=== PATIENT | female | born 1940 | race Caucasian/White ===

== ENCOUNTER 2019-08-06 11:19 | Inpatient (IN) | payer MEDICARE, OTHER ==
[2019-08-06] VITALS (12 sets, daily range): BP systolic 112–140; BP diastolic 52–70
[~2019-08-06] VITALS: Ht 152.4 cm; Wt 58.7 kg
[2019-08-06] MEDS ORDERED: LISI10TA4 PO (11:37)
[2019-08-06] MEDS ORDERED: AMLO10TA5 PO (11:37)
[2019-08-06] MEDS ORDERED: GLIM1TAB4 PO (11:37)
[2019-08-06] MEDS ORDERED: SUCR1TAB56 PO (11:37)
[2019-08-06] MEDS ORDERED: METF500T13 PO (11:37)
[2019-08-06] MEDS ORDERED: ATOR1TAB21 PO (11:37)
[2019-08-06 12:01] LABS: BASO % 0.4 % (0.0-1.0); EOS % 0.4 % (0.0-3.0); LYMPH # 0.9 10^3/uL (1.5-5.0); LYMPH % 12.5 % (24.0-44.0); MEAN CORPUSCULAR HEMOGLOBIN 26.1 pg (27.0-33.0); MEAN CORPUSCULAR HGB CONC 30.5 g/dl (32.0-36.5); MEAN CORPUSCULAR VOLUME 85.6 fl (80.0-96.0); MONO # 0.8 10^3/uL (0.0-0.8); NEUTROPHILS # 5.7 10^3/uL (1.5-8.5); NEUTROPHILS % 76.4 % (36.0-66.0); PLATELET COUNT, AUTOMATED 397 10^3/uL (150-450); WHITE BLOOD COUNT 7.5 10^3/uL (4.0-10.0)
[2019-08-06 12:04] LABS: HEMOGLOBIN 4.7 g/dl (12.0-15.5)
[2019-08-06 12:05] LABS: HEMATOCRIT 15.4 % (36.0-47.0)
[2019-08-06 12:22] LABS: BLOOD UREA NITROGEN 18 MG/DL (7-18); CALCIUM LEVEL 8.5 MG/DL (8.8-10.2); CARBON DIOXIDE LEVEL 21 MEQ/L (21-32); CHLORIDE LEVEL 111 MEQ/L (98-107); CREATININE FOR GFR 0.84 MG/DL (0.55-1.30); GLOMERULAR FILTRATION RATE > 60.0 (>39); GLUCOSE, FASTING 144 MG/DL (70-100); POTASSIUM SERUM 3.8 MEQ/L (3.5-5.1); SODIUM LEVEL 142 MEQ/L (136-145)
[2019-08-06] MEDS ORDERED: PANTOPRAZOLE 40MG INJ (PROTONIX) (C9113) IV ONE (12:30)
[2019-08-06] MEDS ORDERED: ZADI1DRO OU (12:43)
[2019-08-06 13:41] LABS: FERRITIN 4 NG/ML (8-252); IRON (FE) 8 UG/DL (50-170); PERCENT SATURATION 1.7 % (13.2-45.0); TOTAL IRON BINDING CAPACITY 480 UG/DL (250-450)
[2019-08-06] MEDS: metFORMIN (GLUCOPHAGE) 500 MG TAB PO SCH ×2 (18:00→20:29)
--- NOTE | 2019-08-06 18:29 | CR.PDOC ---
General Date of Consultation: Aug 06, 2019 Referring Provider: JULIETTE LINARES MD Attending Physician: RADHA PERALTA MD Consultation Primary physician/ hospitalist: -Dr. Juliette Linares Reason for consult: -Acute posthemorrhagic anemia HPI: 78-year-old female patient with HTN, DM type II, arthritis, prior spinal fusion with chronic back pain, was admitted to [facility] for acute blood loss anemia. Patient reports having dark stools at night, for the past 5 days, initially multiple loose stools, dark colored, started on Saturday, was seen in her PCP clinic, had blood tests on Saturday and was told to come to ER by her PCP. Patient reports feeling fatigued and generalized weakness since the symptoms started. Patient's daughter reports that she is losing weight progressively over the past year and patient also agrees. Patient denies any other GI symptoms, no recent NSAID use, no prior similar symptoms. Patient does report having occult-positive stools when she did the screening for her colon cancer. Patient also reports generally, she has regular bowel movements and denies any constipation. Pertinent negative GI symptoms: Patient denies fever, sick contacts, recent travel, nausea, vomiting, abdominal pain, loss of appetite, early satiety or unintentional weight loss. No history of hematemesis. Review of Systems: GI: as stated above CVS: No chest pain, No palpitations, No leg swelling. RS: No Shortness of breath, No Wheezing, no cough HISTORY CARD CLERK: No dizziness, No motor weakness, No sensory problems Hematology: No bruising, No gum bleeding, Musculoskeletal: No joint pain, ambulating well. Skin: No rash : No hematuria, No burning sensation of the urine ENT: No ear discharge/ pain, No dysphagia. Eyes: No photophobia. Jaundice Home medications: reviewed. Antithrombotic agents: -On aspirin 81 mg Medical h/o: As above. Surgical h/o: None on abdomen. Social h/o: Alcohol: -Denies, smoking: Denies, IVDA/ drugs: Denies. Family h/o of GI cancers - None Prior Endoscopies: No prior EGD or colonoscopy. Prior GI evaluations: -None in past Exam: Vitals: reviewed General: Alert and oriented x 3, mild distress from back pain and unable to rest comfortably on her back. HEENT: Conjunctival pallor, no icterus. Normal oropharynx, NO cervical lymph nodes. Chest: symmetric with bilateral clear air entry, CVS: S1, S2 heard, normal, no murmurs . Abdomen: non-distended, no surgical scars, soft, non-tender, no palpable masses, normal bowel sounds heard. Rectal exam: Patient refused / Deferred at this time in view of scheduled colonoscopy. Extremities: no pedal edema, pulses palpable. HISTORY CARD CLERK: no focal motor or sensory deficits. Moves all extremities Skin: no rash. Labs: reviewed. Imaging: reviewed. Impression: -- Acute onset dark stools few days ago with less number of bowel movements for the past 2 days, with symptomatic anemia and prior FOBT positive and unintentional weight loss -- DDx-- need to rule out colon polyps/colon cancer, vs AVM bleeding, vs diverticular bleeding vs less likely PUD vs upper GI bleeding Recommendations: - Patient educated about the test results, possible differential diagnoses and All questions answered. - Monitor hemoglobin and hematocrit closely and transfuse to maintain hemoglobin above 8. - Continue pantoprazole 40 MG IV twice daily for now - Clear liquid diet until 7 AM tomorrow. - Patient is recommended both EGD and colonoscopy after bowel preparation. The p rocedures, indications, risks (bleeding, perforation, infection, hypotension, respiratory depression, allergy, need for endotracheal intubation, surgery, colostomy, cardiac arrest, even ), benefits, limitations (e.g., missing a lesion), and all other alternatives (including no intervention) were explained to the patient who understood and agreed for the procedures. Informed consent signed. - Bowel preparation with GoLYTELY 4 L to be completed by 7 AM tomorrow. - Nothing by mouth after 7 AM tomorrow, Plan of care discussed with patient and primary team. Patient verbalized understanding and agreed with the plan. Vital Signs/I&O Vital Signs Date Time Temp Pulse Resp B/P (MAP) Pulse Ox O2 Delivery O2 Flow Rate FiO2 08/06/19 15:34 98.7 92 20 135/66 (89) 100 Room Air Laboratory Data Labs 24H Laboratory Tests 2 08/06/19 11:44: Immature Granulocyte % (Auto) 0.3, Neutrophils (%) (Auto) 76.4H, Lymphocytes (%) (Auto) 12.5L, Monocytes (%) (Auto) 10.0H, Eosinophils (%) (Auto) 0.4, Basophils (%) (Auto) 0.4, Neutrophils # (Auto) 5.7, Lymphocytes # (Auto) 0.9L, Monocytes # (Auto) 0.8, Eosinophils # (Auto) 0.0, Basophils # (Auto) 0.0, Nucleated Red Blood Cells % (auto) 0.0, Anion Gap 10, Glomerular Filtration Rate > 60.0, Calcium Level 8.5L, Iron Level 8L, Total Iron Binding Capacity 480H, Transferrin % Saturation 1.7L, Ferritin 4L CBC/BMP Laboratory Tests 08/06/19 11:44 Allergies Coded Allergies: No Known Allergies (Unverified , 08/06/19) Home Medications Scheduled Amlodipine Besylate (Amlodipine Besylate) 10 Mg Tablet, 10 MG PO DAILY, (Reported) Atorvastatin Calcium (Atorvastatin Calcium) 20 Mg Tablet, 20 MG PO QHS, (Reported) Glimepiride (Glimepiride) 1 Mg Tablet, 0.5 MG PO DAILY, (Reported) Ketotifen Fumarate (Zaditor) 5 Ml Drops, 1 DROP OU BID, (Reported) Lisinopril (Lisinopril) 10 Mg Tablet, 10 MG PO BID, (Reported) Metformin HCl (Metformin HCl) 500 Mg Tablet, 500 MG PO QPM, (Reported) Sucralfate (Sucralfate) 1 Gm Tablet, 1 GRAM PO ACHS, (Reported) RADHA PERALTA MD Aug 06, 2019 18:29
[2019-08-06] MEDS ORDERED: GOLYTELY SOLN 4000 ML BTL PO ONE (18:30)
[2019-08-06] MEDS ORDERED: GLUCAGON FOR INJ 1 MG VIAL (J1610) SC PRN (19:00)
[2019-08-06] MEDS ORDERED: FUROSEMIDE 40 MG/4 ML VIAL (J1940) IV ONE (19:00)
[2019-08-06] MEDS ORDERED: PILL CUTTER 1 EACH XX PRN (19:00)
[2019-08-06] MEDS ORDERED: GLUCOSE 4 GM CHEW TABLET PO PRN (19:00)
[2019-08-06] MEDS ORDERED: DEXTROSE 50% 50 ML SYRINGE IV PRN (19:00)
--- NOTE | 2019-08-06 20:48 | HPEPDOC ---
General Date of Admission Aug 06, 2019 at 13:51 Date of Service: Aug 06, 2019 Chief Complaint The patient is a 78-year-old female admitted with a reason for visit of Acute Blood Loss Anemia. Source: Patient, Family Exam Limitations: No limitations Timing/Duration: Day(s) Severity: Moderate Associated Symptoms: Denies Symptoms History of Present Illness This is a 78-year-old female who presented to the emergency room after an episode of gas and diarrhea with dark blood. She had been told by her primary care provider that she would need endoscopic evaluation. The patient was not ent husiastic about this. Of interest, the patient had undergone occult blood screening last summer that was positive. She had deferred further evaluation at that time as well. The patient did have her blood drawn by her primary care provider; she was found to have a hemoglobin of 4.7. She was then notified and encouraged to come to the emergency room. The patient really did not have any complaints. She had not experienced any nausea or vomiting. She had not had episodes of blood associated with her stools in the past. She otherwise has no significant changes to her bowel or bladder habits and did not have abdominal pain. She does not have other risk factors such as excessive NSAID use and is not on any anticoagulation therapy. Home Medications Scheduled Amlodipine Besylate (Amlodipine Besylate) 10 Mg Tablet, 10 MG PO DAILY, (Reported) Atorvastatin Calcium (Atorvastatin Calcium) 20 Mg Tablet, 20 MG PO QHS, (Reported) Glimepiride (Glimepiride) 1 Mg Tablet, 0.5 MG PO DAILY, (Reported) Ketotifen Fumarate (Zaditor) 5 Ml Drops, 1 DROP OU BID, (Reported) Lisinopril (Lisinopril) 10 Mg Tablet, 10 MG PO BID, (Reported) Metformin HCl (Metformin HCl) 500 Mg Tablet, 500 MG PO QPM, (Reported) Sucralfate (Sucralfate) 1 Gm Tablet, 1 GRAM PO ACHS, (Reported) Allergies Coded Allergies: No Known Allergies (Unverified , 08/06/19) Past Medical History Medical History Past medical history is remarkable for essential hypertension, dyslipidemia, and fcf-hzwnsyv-ewhwibrtt diabetes mellitus. Surgical History Surgical history includes tubal ligation, appendectomy, cataract surgery, excision of a lipoma or sebaceous cyst from her right shoulder. Family History Significant Family History: Cancer, Diabetes, Heart disease, Renal disease Other family history includes leukemia and stroke. 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 A-FIB/CHADSVASC A-FIB History Current/History of A-Fib/PAF?: No Current PO Anticoag Therapy: No Review of Systems Other systems 10 system review is otherwise negative except as stated in the HPI. Physical Examination General Exam: Positive: Alert, Cooperative Eye Exam: Positive: Conjunctiva & lids normal ENT Exam: Positive: Mucous membr. moist/pink Neck Exam: Positive: Supple Chest Exam: Positive: Clear to auscultation, Normal air movement Heart Exam: Positive: Rate Normal, Normal S1, Normal S2 Abdomen Exam: Positive: Normal bowel sounds, Tenderness (patient does demonstrate epigastric tenderness to palpation); Negative: BS Hyperactive, BS Hypoactive, Soft, Hepatospenomegaly, Mass, Hernia, Other Extremity Exam: Positive: Normal pulses; Negative: Clubbing, Cyanosis, Edema, Tenderness, Swelling, Other Skin Exam: Positive: Nl turgor and temperature, Other skin issue (no remarkable pallor) Neuro Exam: Positive: Normal Gait, Normal Speech, Strength at 5/5 X4 ext, Ping l Tone, Sensation Intact, Cranial Nerves 3-12 NL, Reflexes 2+, Other Psych Exam: Positive: Mental status NL, Mood NL, Oriented x 3 Vital Signs Vital Signs Date Time Temp Pulse Resp B/P (MAP) Pulse Ox O2 Delivery O2 Flow Rate FiO2 08/06/19 20:11 99.2 97 16 140/58 Room Air 08/06/19 19:56 97 Laboratory Data Labs 24H Laboratory Tests 2 08/06/19 11:44: Immature Granulocyte % (Auto) 0.3, Neutrophils (%) (Auto) 76.4H, Lymphocytes (%) (Auto) 12.5L, Monocytes (%) (Auto) 10.0H, Eosinophils (%) (Auto) 0.4, Basophils (%) (Auto) 0.4, Neutrophils # (Auto) 5.7, Lymphocytes # (Auto) 0.9L, Monocytes # (Auto) 0.8, Eosinophils # (Auto) 0.0, Basophils # (Auto) 0.0, Nucleated Red Blood Cells % (auto) 0.0, Anion Gap 10, Glomerular Filtration Rate > 60.0, Calcium Level 8.5L, Iron Level 8L, Total Iron Binding Capacity 480H, Transferrin % Saturation 1.7L, Ferritin 4L CBC/BMP Laboratory Tests 08/06/19 11:44 Assessment/Plan 1. Acute blood loss anemia. Source of blood loss is likely GI tract, given her positive guaiac studies last summer and current dark stools. We have not seen any morales blood. In response to her hemoglobin of 4.7. Patient is to receive estimated 3-4 units of packed red blood cells. She has been placed on proton pump inhibitor in the form of Protonix. GI service has been contacted; we anticipate she will undergo subsequent evaluation by upper and lower endoscopy. The patient is agreeable to this plan and sequence of events. 2. Coe-jychtxz-snzyffhhc diabetes mellitus. Patient will continue with her current diabetes management regimen with sliding scale insulin available as needed. 3. She will continue her baseline medication management of her essential hypertension, dyslipidemia. Plan / VTE VTE Prophylaxis Ordered?: Yes (serial compression devices) VTE Exclusion Pharmacological: Active Bleeding Plan Diet: Make NPO (in the morning) Activity: Continue Current Medications: Start Antibiotics Diagnostics: Repeat Labs in AM, Other Diagnostics (upper and lower endoscopy) Anticipated Discharge: Home NIDIA POLLARD MD Aug 06, 2019 20:48
[2019-08-06] MEDS ORDERED: HumaLOG INSULIN (NovoLOG) PER UNIT SC SCH (21:00)
[2019-08-06] MEDS ORDERED: ATORVASTATIN 20 MG TAB PO SCH (21:00)
[2019-08-06] MEDS: lisinopriL 10 MG TAB PO SCH (21:01)
[2019-08-06] MEDS: PANTOPRAZOLE 40MG INJ (PROTONIX) (C9113) IV SCH (22:35)
[2019-08-07] VITALS (12 sets, daily range): BP systolic 116–146; BP diastolic 57–89
[2019-08-07 06:06] LABS: HEMATOCRIT 29.7 % (36.0-47.0); MEAN CORPUSCULAR HGB CONC 32.7 g/dl (32.0-36.5); MEAN CORPUSCULAR VOLUME 85.6 fl (80.0-96.0); PLATELET COUNT, AUTOMATED 309 10^3/uL (150-450); RED BLOOD COUNT 3.47 10^6/uL (4.00-5.40); WHITE BLOOD COUNT 7.3 10^3/uL (4.0-10.0)
[2019-08-07 06:10] LABS: HEMOGLOBIN 9.7 g/dl (12.0-15.5)
[2019-08-07 06:33] LABS: BLOOD UREA NITROGEN 9 MG/DL (7-18); CALCIUM LEVEL 7.7 MG/DL (8.8-10.2); CARBON DIOXIDE LEVEL 24 MEQ/L (21-32); CHLORIDE LEVEL 113 MEQ/L (98-107); CREATININE FOR GFR 0.64 MG/DL (0.55-1.30); GLOMERULAR FILTRATION RATE > 60.0 (>39); GLUCOSE, FASTING 119 MG/DL (70-100); POTASSIUM SERUM 3.2 MEQ/L (3.5-5.1); SODIUM LEVEL 142 MEQ/L (136-145)
[2019-08-07] MEDS: HumaLOG INSULIN (NovoLOG) PER UNIT SC SCH ×3 (07:30→17:30)
[2019-08-07] MEDS ORDERED: GLIMEPIRIDE 1 MG TABLET PO SCH (08:00)
[2019-08-07] MEDS: PANTOPRAZOLE 40MG INJ (PROTONIX) (C9113) IV SCH (08:20)
[2019-08-07] MEDS: lisinopriL 10 MG TAB PO SCH (08:23)
[2019-08-07] MEDS ORDERED: amLODIPine 10 MG TAB PO SCH (09:00)
[2019-08-07] MEDS ORDERED: LIDOCAINE 2% INJ 100 MG/5 ML SDV (FOR ANES.) As Ordered ONE (14:04)
[2019-08-07] MEDS ORDERED: propofoL 200 MG/20 ML VIAL As Ordered ONE (14:04)
[2019-08-07] MEDS ORDERED: fentaNYL 100 MCG/2 ML INJECTION (J3010) As Ordered ONE (14:05)
--- NOTE | 2019-08-07 15:11 | ROOR ---
Patient Name: Meron Rico Procedure Date: 08/07/2019 2:10 PM Date of : 1940 Age: 78 Room: [facility] Gender: Female Note Status: Finalized Procedure: Upper GI endoscopy Indications: Acute post hemorrhagic anemia Providers: Jeff Cramer MD Referring MD: 2. Inpatient 2. Inpatient, FABIAN Serrato Requesting Provider: Medicines: Monitored Anesthesia Care Complications: No immediate complications. Procedure: Pre-Anesthesia Assessment: - Prior to the procedure, a History and Physical was performed, and patient medications and allergies were reviewed. The patient is competent. The risks and benefits of the procedure and the sedation options and risks were discussed with the patient. All questions were answered and informed consent was obtained. Patient identification and proposed procedure were verified by the physician, the nurse and the anesthesiologist in the procedure room. Mental Status Examination: normal. Airway Examination: normal oropharyngeal airway and neck mobility. Respiratory Examination: clear to auscultation. CV Examination: normal. Prophylactic Antibiotics: The patient does not require prophylactic antibiotics. Prior Anticoagulants: The patient has taken no previous anticoagulant or antiplatelet agents. ASA Grade Assessment: III - A patient with severe systemic disease. After reviewing the risks and benefits, the patient was deemed in satisfactory condition to undergo the procedure. The anesthesia plan was to use monitored anesthesia care (MAC). Immediately prior to administration of medications, the patient was re-assessed for adequacy to receive sedatives. The heart rate, respiratory rate, oxygen saturations, blood pressure, adequacy of pulmonary ventilation, and response to care were monitored throughout the procedure. The physical status of the patient was re-assessed after the procedure. The Endoscope was introduced through the mouth, and advanced to the second part of duodenum. The upper GI endoscopy was accomplished without difficulty. The patient tolerated the procedure well. Findings: One tongue of salmon-colored mucosa was present from 35 to 37 cm. The maximum longitudinal extent of these esophageal mucosal changes was 2 cm in length. Biopsies were taken with a cold forceps for histology. Verification of patient identification for the specimen was done by the physician and nurse using the patient's date. Scattered moderate inflammation characterized by erythema, friability, granularity and linear erosions was found in the gastric antrum. Biopsies were taken with a cold forceps for Helicobacter pylori testing. The duodenal bulb and second portion of the duodenum were normal. Impression: - Commerce-colored mucosa suspicious for short-segment Newell's esophagus. Biopsied. - Gastritis. Biopsied. - Normal duodenal bulb and second portion of the duodenum. Recommendation: - Patient has a contact number available for emergencies. The signs and symptoms of potential delayed complications were discussed with the patient. Return to normal activities tomorrow. Written discharge instructions were provided to the patient. - High fiber diet. - Continue present medications. - Await pathology results. - If Biopsy shows H. pylori will need therapy with antibiotic course.. - Telephone GI clinic for pathology results in 1 week. - Refer to a colo-rectal surgeon and oncologist at appointment to be scheduled based on the Colonoscopy biopsy results.. - Return to primary care physician. Jeff Cramer MD Jeff Cramer MD 08/07/2019 3:11:13 PM Electronically signed by Jeff Cramer MD Number of Addenda: 0 Note Initiated On: 08/07/2019 2:10 PM Estimated Blood Loss: Estimated blood loss was minimal.
--- NOTE | 2019-08-07 15:19 | ROOR ---
Patient Name: Meron Rico Procedure Date: 08/07/2019 2:12 PM Date of : 1940 Age: 78 Room: [facility] Gender: Female Note Status: Finalized Procedure: Colonoscopy Indications: Hematochezia, Acute post hemorrhagic anemia Providers: Jeff Cramer MD Referring MD: 2. Inpatient 2. Inpatient, FABIAN Serrato Requesting Provider: Medicines: Monitored Anesthesia Care Complications: No immediate complications. Procedure: Pre-Anesthesia Assessment: - Prior to the procedure, a History and Physical was performed, and patient medications and allergies were reviewed. The patient is competent. The risks and benefits of the procedure and the sedation options and risks were discussed with the patient. All questions were answered and informed consent was obtained. Patient identification and proposed procedure were verified by the physician, the nurse and the anesthesiologist in the procedure room. Mental Status Examination: alert and oriented. Airway Examination: normal oropharyngeal airway and neck mobility. Respiratory Examination: clear to auscultation. CV Examination: normal. Prophylactic Antibiotics: The patient does not require prophylactic antibiotics. Prior Anticoagulants: The patient has taken no previous anticoagulant or antiplatelet agents. ASA Grade Assessment: II - A patient with mild systemic disease. After reviewing the risks and benefits, the patient was deemed in satisfactory condition to undergo the procedure. The anesthesia plan was to use monitored anesthesia care (MAC). Immediately prior to administration of medications, the patient was re-assessed for adequacy to receive sedatives. The heart rate, respiratory rate, oxygen saturations, blood pressure, adequacy of pulmonary ventilation, and response to care were monitored throughout the procedure. The physical status of the patient was re-assessed after the procedure. The Colonoscope was introduced through the anus and advanced to the terminal ileum, with identification of the appendiceal orifice and IC valve. The colonoscopy was performed without difficulty. The patient tolerated the procedure well. The quality of the bowel preparation was good. The terminal ileum, ileocecal valve, appendiceal orifice, and rectum were photographed. Scope insertion time was 5 minutes. Scope withdrawal time was 10 minutes. The total duration of the procedure was 15 minutes. Findings: The perianal and digital rectal examinations were normal. The terminal ileum appeared normal. A frond-like/villous, infiltrative and ulcerated non-obstructing large mass was found in the ascending colon and in the cecum. The mass was partially circumferential (involving one-half of the lumen circumference). The mass measured eight cm in length. In addition, its diameter measured five mm. Biopsies were taken with a cold forceps for histology. Verification of patient identification for the specimen was done by the physician and nurse using the patient's name, date and medical record number. Estimated blood loss was minimal. A fungating, infiltrative and ulcerated partially obstructing large mass was found in the rectum and from 5 to 15 cm proximal to the anus. The mass was partially circumferential (involving two-thirds of the lumen circumference). The mass measured ten cm in length. In addition, its diameter measured five mm. Oozing was present. Biopsies were taken with a cold forceps for histology. Multiple small and large-mouthed diverticula were found from sigmoid to descending colon. There was no evidence of diverticular bleeding. Impression: - The examined portion of the ileum was normal. 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 Biopsied. - Likely malignant partially obstructing tumor in the rectum and from 5 to 15 cm proximal to the anus. Biopsied. - Moderate diverticulosis from sigmoid to descending colon. There was no evidence of diverticular bleeding. Recommendation: - Patient has a contact number available for emergencies. The signs and symptoms of potential delayed complications were discussed with the patient. Return to normal activities tomorrow. Written discharge instructions were provided to the patient. - Resume previous diet. - Continue present medications. - Await pathology results. - Refer to a colo-rectal surgeon at appointment to be scheduled. - Refer to an oncologist at appointment to be scheduled. - Return to primary care physician. - Telephone GI clinic for pathology results in 1 week. - Repeat colonoscopy in 1 year per protocol and for surveillance based on pathology results. Jeff Cramer MD Jeff Cramer MD 08/07/2019 3:18:26 PM Electronically signed by Jeff Cramer MD Number of Addenda: 0 Note Initiated On: 08/07/2019 2:12 PM Estimated Blood Loss: Estimated blood loss was minimal.
[2019-08-07] MEDS: metFORMIN (GLUCOPHAGE) 500 MG TAB PO SCH (18:00)
--- NOTE | 2019-08-07 18:01 | DS.PDOC ---
Discharge Summary General Date of Admission Aug 06, 2019 at 13:51 Date of Discharge August 07, 2019 Specialist/Consultants Involve: RADHA PERALTA MD Discharge Summary PROCEDURES PERFORMED DURING STAY: [EGD, colonoscopy, blood transfusion]. ADMITTING DIAGNOSES: 1. [Acute blood loss anemia]. DISCHARGE DIAGNOSES: 1. [Acute blood loss anemia, Barretts esophagus, multiple colonic tumour lesions, diverticular disease, essential hypertension, dyslipidemia, NIDDM]. COMPLICATIONS/CHIEF COMPLAINT: Acute Blood Loss Anemia. HISTORY OF PRESENT ILLNESS/HOSPITAL COURSE: [78-year-old female presented to the emergency room after an episode of gas and diarrhea with dark blood. She had been told by her primary care provider that she would need endoscopic evaluation. The patient was not enthusiastic about this. Of interest, the patient had undergone occult blood screening last summer that was positive. She had deferred further evaluation at that time as well. The patient did have her blood drawn by her primary care provider; she was found to have a hemoglobin of 4.7. She was then notified and encouraged to come to the emergency room. The patient really did not have any complaints. She had not experienced any nausea or vomiting. She had not had episodes of blood associated with her stools in the past. She otherwise has no significant changes to her bowel or bladder habits and did not have abdominal pain. She does not have other risk factors such as excessive NSAID use and is not on any anticoagulation therapy. Patient received transfusion of 4 units of PRBCs. Patient underwent endoscopic eval by GI services. Newell"s esophagus was noted on EGD. Multiple tumours were found on colonoscopy--ascending colon, cecum, and rectum. Results were shared with the patient and her family. ]. DISCHARGE MEDICATIONS: Please see below. ALLERGIES: Please see below. PHYSICAL EXAMINATION ON DISCHARGE: VITAL SIGNS: Please see below. GENERAL: [patient was seen pre and post procedure] HEENT: [neck supple with no adenopathy or thyromegaly, oral mucosa moist] CARDIOVASCULAR EXAMINATION: [RRR, no murmur] RESPIRATORY EXAMINATION: [CTA] ABDOMINAL EXAMINATION: [soft, non tender, nondistended] EXTREMITIES: [no peripheral edema] LABORATORY DATA: Please see below. IMAGING: PROGNOSIS: ACTIVITY: [As tolerated]. DIET: [as tolerated] DISCHARGE PLAN: [Patient was hemodynamically stable for discharge to home. She will follow up with GI service for pathology results and subsequent referral to colorectal surgeon and oncology service. Patient might opt for no treatment at all.] DISPOSITION: . DISCHARGE INSTRUCTIONS: 1. . ITEMS TO FOLLOWUP ON ON OUTPATIENT: 1. . DISCHARGE CONDITION: [Stable]. TIME SPENT ON DISCHARGE: [35] minutes. Vital Signs/I&Os Vital Signs Date Time Temp Pulse Resp B/P (MAP) Pulse Ox O2 Delivery O2 Flow Rate FiO2 08/07/19 15:35 98.8 99 18 142/70 (94) 99 Room Air I&O- Last 24 Hours up to 6 AM 08/07/19 05:59 Intake Total 3591 ml Output Total 180 ml Balance 3411 ml Laboratory Data Labs 24H Laboratory Tests 2 08/06/19 19:42: Bedside Glucose (Misc Panel) 156H 08/07/19 05:09: Nucleated Red Blood Cells % (auto) 0.0, Anion Gap 5L, Glomerular Filtration Rate > 60.0, Calcium Level 7.7L 08/07/19 12:07: Bedside Glucose (Misc Panel) 114H CBC/BMP Laboratory Tests 08/07/19 05:09 FSBS Laboratory Tests Test 08/06/19 19:42 08/07/19 12:07 Range/Units Bedside Glucose (Misc Panel) 156 114 83-110 MG/DL Discharge Medications Scheduled Amlodipine Besylate (Amlodipine Besylate) 10 Mg Tablet, 10 MG PO DAILY, (Reported) Atorvastatin Calcium (Atorvastatin Calcium) 20 Mg Tablet, 20 MG PO QHS, (Reported) Glimepiride (Glimepiride) 1 Mg Tablet, 0.5 MG PO DAILY, (Reported) Ketotifen Fumarate (Zaditor) 5 Ml Drops, 1 DROP OU BID, (Reported) Lisinopril (Lisinopril) 10 Mg Tablet, 10 MG PO BID, (Reported) Metformin HCl (Metformin HCl) 500 Mg Tablet, 500 MG PO QPM, (Reported) Sucralfate (Sucralfate) 1 Gm Tablet, 1 GRAM PO ACHS, (Reported) Allergies Coded Allergies: No Known Allergies (Unverified , 08/06/19) NIDIA POLLARD MD Aug 07, 2019 18:01
[2019-08-25] MEDS ORDERED: BENA25CA4 PO (10:10)
[2019-08-25] MEDS ORDERED: VITA100054 PO (10:10)
[2019-08-25] MEDS ORDERED: NIAC10TAB PO (10:10)
[2019-08-25] MEDS ORDERED: ASPI81TA85 PO (10:10)
[2019-08-25] MEDS ORDERED: SENITAB3 PO (10:10)
[2019-08-25] MEDS ORDERED: FOLI1TAB11 PO (10:10)
[2019-08-25] MEDS ORDERED: BIOT10009 PO (10:10)
[2019-08-25] MEDS ORDERED: OCUV1CAP4 PO (10:10)
[2019-08-25] MEDS ORDERED: EVEN500C3 PO (10:10)
[2019-08-25] MEDS ORDERED: VITA-157 PO (10:10)
== END 2019-08-07 19:00 | disposition home or self-care (01) | DRG 378 ==
LOC: M ED 11:19 → M ED INP 13:51 → ENRESERV 14:15 → M MSPAV 15:49
PROVIDERS: ADMIT Internal Medicine; ATTEND Internal Medicine
PROC: 30233N1 Transfusion of Nonautologous Red Blood Cells into Peripheral Vein, Percutaneous Approach (ICD-10-PCS; 2019-08-07)
PROC: 0DBB8ZX Excision of Ileum, Via Natural or Artificial Opening Endoscopic, Diagnostic (ICD-10-PCS; 2019-08-07)
PROC: 0DB58ZX Excision of Esophagus, Via Natural or Artificial Opening Endoscopic, Diagnostic (ICD-10-PCS; 2019-08-07)
PROC: 0DB78ZX Excision of Stomach, Pylorus, Via Natural or Artificial Opening Endoscopic, Diagnostic (ICD-10-PCS; principal; 2019-08-07 15:00)
DX: K92.2 Gastrointestinal hemorrhage, unspecified (principal); D62 Acute posthemorrhagic anemia; C18.6 Malignant neoplasm of descending colon; I10 Essential (primary) hypertension; E11.9 Type 2 diabetes mellitus without complications; M06.9 Rheumatoid arthritis, unspecified; Z98.1 Arthrodesis status; G89.29 Other chronic pain; M54.9 Dorsalgia, unspecified; Z79.82 Long term (current) use of aspirin; Z79.84 Long term (current) use of oral hypoglycemic drugs; Z79.899 Other long term (current) drug therapy; E78.5 Hyperlipidemia, unspecified; Z90.49 Acquired absence of other specified parts of digestive tract; Z98.49 Cataract extraction status, unspecified eye; K22.70 Barrett's esophagus without dysplasia

== ENCOUNTER → 2019-08-24 | Outpatient (CLI) | payer MEDICARE, OTHER ==
[~2019-08-24] MED LIST: AMLO10TA5 PO; ASPI81TA85 PO; ATOR1TAB21 PO; BENA25CA4 PO; BIOT10009 PO; EVEN500C3 PO; FOLI1TAB11 PO; GASTROGRAFIN SOLUTION 30ML (Q9963) As Ordered ONE; GLIM1TAB4 PO; ISOVUE-370 76% 100ML VIAL (Q9967) As Ordered ONE; LISI10TA4 PO; METF500T13 PO; NIAC10TAB PO; OCUV1CAP4 PO; SENITAB3 PO; SUCR1TAB56 PO; VITA-157 PO; VITA100054 PO; ZADI1DRO OU
--- NOTE | 2019-08-24 19:15 | REP ---
Clinical: Colon carcinoma. Technique: Axial contrast enhanced images from the thoracic inlet to the upper abdomen with coronal and sagittal re-formations using 100 ml Isovue 370 intravenous contrast material. Comparison: None. Findings: Lung sams demonstrate chronic-appearing age-related interstitial changes. No consolidation, nodule, or mass. No effusion. No pneumothorax. Tracheobronchial tree is patent. No significant axillary, hilar, or mediastinal adenopathy. The mediastinum demonstrates relatively normal thoracic aorta, pulmonary vasculature heart/pericardium. No pericardial effusion. Musculoskeletal structures demonstrate age-related changes without focal osseous abnormality. Impression: Chronic-appearing interstitial changes. No acute mediastinal or pleuroparenchymal process. No evidence for metastatic disease. Electronically Signed by Ashish Kang MD 08/24/2019 07:07 P
--- NOTE | 2019-08-24 19:22 | REP ---
Clinical: Colon carcinoma. Technique: Axial contrast enhanced images from the lung bases to the pubic symphysis using oral (per protocol) and 100 ml Isovue 370 intravenous contrast material with coronal and sagittal re-formations. Comparison: None. Findings: Liver, spleen, pancreas, gallbladder, and bilateral adrenal glands are normal. The kidneys demonstrate significant bilateral simple peripelvic and parenchymal cysts as well as 5.8 cm simple exophytic right lateral renal cyst. No hydronephrosis or perinephric stranding. Evaluation of the enteric system demonstrates an area of irregular asymmetric mural thickening along the mesenteric border of the base of the cecum (images 84-105) which is concerning for pathology including neoplasm. There is irregular asymmetric mural thickening also involving the rectosigmoid with surrounding inflammatory stranding and small adjacent lymph nodes (images 99-115) which is also concerning for pathology including neoplasm. Remainder of the small large bowel is grossly unremarkable. Pelvis demonstrates normal bladder and age-appropriate uterus/adnexa. No pelvic fluid or ascites. No free air. No obvious retroperitoneal adenopathy. Musculoskeletal structures demonstrate age-related degenerative changes without focal osseous abnormality. Abdominal aorta and vasculature demonstrates atherosclerotic change without aneurysm or dissection. Impression: 1. Irregular asymmetric mural thickening involving the base of the cecum and rectosigmoid which are concerning for quality including malignancy. The irregular rectosigmoid region demonstrates associated surrounding fat-stranding and small lymph nodes. 2. Bilateral renal cysts including bilateral peripelvic cysts and 5.8 cm exophytic right renal cyst. Electronically Signed by Ashish Kang MD 08/24/2019 07:14 P
== END ==
LOC: M RAD 15:26
PROVIDERS: ATTEND Internal Medicine Gastroenterology
DX: C18.2 Malignant neoplasm of ascending colon (principal); C20 Malignant neoplasm of rectum
CPT/HCPCS: 36415; 71260; 74177; 82378; Q9963; Q9967

== ENCOUNTER → 2019-08-26 | Outpatient (CLI) | payer MEDICARE, OTHER ==
[~2019-08-26] MED LIST changes: -GASTROGRAFIN SOLUTION 30ML (Q9963) As Ordered ONE; -ISOVUE-370 76% 100ML VIAL (Q9967) As Ordered ONE
--- NOTE | 2019-08-27 10:24 | REP ---
PET/CT: HISTORY: Staging colon carcinoma. Infiltrative mass seen in the ascending colon and cecum on colonoscopy. Adenocarcinoma. There is also a partially obstructing infiltrative adenocarcinoma of the rectum. 10 cm in length. COMPARISONS: Comparison CT chest, abdomen, pelvis, August 24, 2019. TECHNIQUE: 53 minutes following the intravenous injection of a 9.09 mCi dose of F-18 FDG, three-dimensional PET scintigraphy is acquired from the skull base to the proximal thighs. Triplanar noncontrast CT scanning is acquired through the same anatomic range for attenuation correction, and image registration with scan parameters optimized to minimize radiation exposure to the patient. PET scintigraphy and CT datasets were fused and displayed on a workstation with multiplanar and projection display capability. PET/CT FINDINGS: Head and neck soft tissues are unremarkable. There is no abnormal hypermetabolic uptake within the thoracic cavity. No abnormal pulmonary parenchymal hilar or mediastinal uptake is seen. In the abdomen and pelvis, there is no abnormal uptake in the liver or spleen. Bilateral renal cysts are observed. No abnormal retroperitoneal or upper abdominal adenopathy is appreciated. There is a hypermetabolic node medial to the ascending colon with maximum standard uptake value 3.48. This lymph node measures 1.3 x 2.0 cm in diameter. There is hypermetabolic uptake in the cecal and ascending colon infiltrative lesion seen on CT. Maximum standard uptake value in this cecal and ascending colon lesion is 10.79. Hypermetabolic uptake is also noted in the rectal lesion which appears to be virtually circumferential. Maximum standard uptake value here is 10.91. There is minimal borderline hypermetabolic uptake in a right perirectal lymph node, maximum SUV 2.27. This node measures only 8 mm in diameter. No other visible adenopathy. No abnormal skeletal hypermetabolic uptake is seen. The scan is otherwise unremarkable. IMPRESSION: There is at least one suspicious lymph node adjacent to both the cecal/ascending colon malignancy and the rectal malignancy. No hypermetabolic uptake is seen in the liver or pulmonary parenchyma. No other evidence to suggest metastatic disease. Electronically Signed by Yazan Maxwell MD 08/27/2019 01:06 P
== END ==
LOC: M PLARAD 14:47
PROVIDERS: ATTEND Internal Medicine Hematology
DX: C18.8 Malignant neoplasm of overlapping sites of colon (principal)

== ENCOUNTER → 2019-09-24 | Outpatient (CLI) | payer MEDICARE, OTHER ==
[~2019-09-24] MED LIST changes: +ONDA-83 PO; +VITAD1000T PO; +XELO150T PO; +XELO1TAB PO
--- NOTE | 2019-09-25 10:03 | RADONC ---
RADIATION ONCOLOGY CONSULTATION NOTE DATE: 09/24/2019 CHART NUMBER: [id number] DIAGNOSIS: Rectal cancer. STAGE: IIIB, T3,N1,M0. DIAGNOSIS: Ascending colon/cecal cancer. ECOG PERFORMANCE STATUS: 0. CONSULTATION NOTE: Ms. 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 HISTORY OF PRESENT ILLNESS: The patient was in the usual state of health until July 2019 when she began having diarrhea and dark stools. She also was feeling weak and was brought to the emergency room on 08/06/2019. At that time the patient was found to have a hemoglobin of 4.7 and a hematocrit of 15.4. She underwent transfusion of 4 units of packed red cells. Upper endoscopy as well as colonoscopy was undertaken. The patient was found to have a circumferential mass which extended from approximately 5 cm to 15 cm proximal to the anus. She was also found to have a mass in the ascending colon/cecum. 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 There was a PET scan done 08/26/2019 that showed at least one suspicious lymph node adjacent to both the cecal/ascending colon malignancy and the rectal malignancy. There was no evidence of metastatic disease. An MRI was done on September 16, 2019 and revealed a lesion located in the mid rectum which was circumferential. The tumor length was 4.8 cm. The distance from the top of the sphincter complex/anorectal junction was 0.4 cm. Extramural depth of invasion was 4 mm for a stage T3 lesion. In addition, the mesorectal fascia was positive less than 1 mm distance at the 1 o'clock position. There were three deposits a mesorectal lymph nodes making this a stage N1. The patient was seen at [facility] and is noted to have refused chemotherapy. PAST MEDICAL HISTORY: The patient's past medical history is positive for hypertension, diabetes, and arthritis. She also had cataract surgery. She has been in otherwise good health. ALLERGIES: The patient has no known drug allergies. SOCIAL HISTORY: The patient does not smoke cigarettes nor abuse alcohol. FAMILY HISTORY: The patient's family history is positive for a brother with leukemia and a sister with lung cancer. REVIEW OF SYSTEMS: The patient's review of systems is positive for some hearing loss as well as anorexia and a 15-pound weight loss over the past few months. She also has some bowel issues with some constipation. Her review of systems is otherwise noncontributory. She denies nausea, vomiting, fevers, chills, night sweats, diplopia, headaches, anxiety or depression, anorexia, weight loss, visual disturbances, chest pain, urinary or bowel difficulties, bone pain, or neurological problems. PHYSICAL EXAMINATION: The patient is an elderly white female in no acute distress. HEENT exam: Normocephalic, atraumatic. Extraocular movements are intact. Further physical examination was deferred at this point. ASSESSMENT: There was some discussion of an initial surgery to resect both colon cancer as well as the rectal cancer. This apparently was dismissed. We are dealing with 2 separate cancers here. Since her initial presentation was with Black stools, her blood loss ans symptoms seem to have been caused by her colon cancer rather than the rectal cancer. This worries me. If we were to treat the rectal cancer first, that would mean not addressing the colon cancer for 3 months. (2 weeks before RT initiated--5-6 weeks of RT and 6-8 weeks before surgery) Clearly the standard of care for the rectal cancer alone would be neoadjuvant chemo and radiation followed by surgical resection. I did discuss with the patient in detail the potential benefits as well as possible acute and chronic sequelae of external beam radiation therapy. We discussed the logistics of treatment planning, simulation and subsequent fractionated daily radiation treatments. The patient does not wish to have any type of chemotherapy but would consider however taking Xeloda pills. For rectal cancer Xeloda should work as a radiation sensitizing agent. A much lengthier discussion ensued with regards to the ascending colon cancer. Neoadjuvant radiation and chemo will go on for the next 6 weeks or so. Following that there is reevaluation and the surgery would normally be done 6-8 weeks following completion of radiation. That puts her surgery back approximately 3 months from this time. That is a rather lengthy time to allow the colon cancer to go untreated. I did discuss this case with her medical oncologist, Dr. Corey Harper MD and my concern is whether or not Xeloda would be efficacious in holding the colon cancer in check. I do not believe this would be sufficient treatment. The patient and her family report that her initial consultation thought she would not do well with initial surgery and therefore is presenting for this present route. I will be out of town and covered by Dr. Gary Cotto next week. She will be seeing her medical oncologist, Dr. Harper who will discuss her options once again with her. Clearly we are going to initiate treatment planning at this point for her rectal cancer. That treatment can be withheld if there is a change in direction and she undergoes surgery initially or some type of stronger systemic therapy initially. Once again in summary, my concern is that we would be spending 3 months treating one of her two malignancies while ignoring the other with only a limited benefit from Xeloda. I continue to look forward to receiving the expert opinion of our medical oncologist and a final decision will be made after consultation with Dr. Cotto as well. Thank you for allowing us to participate in the care of this very pleasant woman. If I could be of any further assistance, please free to contact me anytime. cc: MD Deniz Wang MD, FACS MTDD
== END ==
LOC: M ONCR 12:58
PROVIDERS: ATTEND Radiology Radiation Oncology
DX: C20 Malignant neoplasm of rectum (principal)

== ENCOUNTER 2019-10-01 14:05 | Outpatient (RCR) | payer MEDICARE, OTHER ==
--- NOTE | 2019-10-02 10:11 | RADONC ---
RADIATION ONCOLOGY SIMULATION NOTE DATE: 10/01/2019 CHART NUMBER: [id number] DIAGNOSIS: Rectal cancer. STAGE: IIIB, T3N1M0. DIAGNOSIS: Ascending colon/cecal cancer. ECOG PERFORMANCE STATUS: 0. SIMULATION NOTE: The patient was placed in a prone position utilizing the belly board. The appropriate patient immobilize devices were constructed to optimize the patient's immobility during treatment and to ultimately optimize the effectiveness of her treatment by avoiding normal structures from exposure to the radiation. Thereafter when the patient was in the appropriate position and immobilization devices 3 mm images were captured throughout the abdomen and pelvis for patient contouring. The contouring will be of both the patient's planned treatment volume (tumor volume which needs to be included within the radiation portals) as well as normal surrounding in order to attempt as much sparing of those structures as possible. The patient tolerated the entire procedure quite well with no untoward side effects. I was present during the entire simulation process. She will have a colonoscopy on in [place]. After completion of her simulation she was instructed to return home and return and come back at the completion of her treatment planning for her initial radiation therapy dose. The entire process went well with no untoward event MTDD
--- NOTE | 2019-10-12 13:15 | RADONC ---
RADIATION ONCOLOGY PROGRESS NOTE DATE: 10/12/2019 CHART NUMBER: [id number] We had scheduled Ms. Rico for initiation of radiation today. Her treatment planning assistant manager quality management checks has all been completed and we were planning on coordinating her with chemotherapy for initiation of therapy. I personally called the patient this morning, and apparently she is going to [place] for a colonoscopy and further evaluation on this week. She is not clear on the point, but I suspect it may have to do with initial surgery. As noted on my consultation note, the area causing her bleeding and problems was not the rectum itself and I look forward to the expert opinion of her physicians in [place] when she returns. Since our treatment machine is actually down today, the soonest we could have started her would be tomorrow, Saturday, in which case we would only be able to give for two fractions before she left for [place]. Once again, it makes more sense to simply start her on Saturday. In addition to that should they decide on surgery I do not want to initiate radiation and interfere with her surgery. We will continue to follow her closely.
== END 2019-10-13 ==
LOC: M ONCR 14:05
PROVIDERS: ATTEND Radiology Radiation Oncology
DX: C19 Malignant neoplasm of rectosigmoid junction (principal)

== ENCOUNTER → 2019-10-23 | Outpatient (CLI) | payer MEDICARE, OTHER ==
--- NOTE | 2019-10-23 16:35 | REP ---
HISTORY: Pain. COMPARISON: 05/05/2019 Chronic degenerative changes are seen, status quo. There is no change from the prior exam. There is no acute abnormality. IMPRESSION: No change from 05/05/2019. Electronically Signed by Nick Guo DO 10/23/2019 05:06 P
== END ==
LOC: M RAD 15:17
PROVIDERS: ATTEND Internal Medicine Medical Oncology
DX: M54.9 Dorsalgia, unspecified (principal); Z85.048 Personal history of other malignant neoplasm of rectum, rectosigmoid junction, and anus; Z85.3 Personal history of malignant neoplasm of breast

== ENCOUNTER → 2019-11-12 | Outpatient (RCR) | payer MEDICARE, OTHER ==
--- NOTE | 2019-10-20 08:38 | RADONC ---
RADIATION ONCOLOGY PROGRESS NOTE DATE: 10/19/2019 CHART #: [id number] Ms. Rico underwent her first fraction of radiation to her rectum for a dose of 180 cGy. It was tolerated without difficulty or discomfort. REVIEW OF SYSTEMS: The patient's review of systems is unchanged. PHYSICAL EXAMINATION: Deferred as per COVID-19 precautions. Ms. Rico tolerated her first fraction of radiation well and radiation will continue as scheduled.
--- NOTE | 2019-10-27 08:10 | RADONC ---
RADIATION ONCOLOGY PROGRESS NOTE DATE: 10/26/2019 CHART NUMBER: [id number] PROGRESS NOTE: Ms. Rico is presently at a dose of 1080 cGy to her rectum and is tolerating treatments quite well at this point with no complaints related to her radiation therapy. The patient presents today reporting that she has upper back pain. This is largely unchanged. She is having no problems in the radiated area. REVIEW OF SYSTEMS: The patient's review of systems is positive for upper back pain but is otherwise generally noncontributory. Denies nausea, vomiting, fevers, chills, night sweats, diplopia, headaches, anxiety or depression, anorexia, weight loss, visual disturbances, chest pain, urinary or bowel difficulties, bone pain, or neurological problems. PHYSICAL EXAMINATION: Physical examination was deferred as per COVID-19 precautions. ASSESSMENT: Ms. Rico is tolerating her treatments well and radiation will continue as scheduled.
--- NOTE | 2019-11-03 08:12 | RADONC ---
RADIATION ONCOLOGY PROGRESS NOTE DATE: 11/02/2019 CHART NUMBER: [id number] PROGRESS NOTE: Ms. Rico is presently at a dose of 1980 cGy to her pelvis and is tolerating her treatments without significant problems. She did complain of weakness this morning but says she is feeling better now. Her review of systems is otherwise unchanged. Physical exam shows no evidence of moist or dry desquamation of the radiated field. Her weight today is down 3 pounds in the past week. She has been given dietary instructions and radiation is continuing at this point. She is scheduled to see medical oncology tomorrow and blood work will be done at that time.
--- NOTE | 2019-11-10 09:15 | RADONC ---
RADIATION ONCOLOGY PROGRESS NOTE DATE: 02/08/2020 CHART #: [id number] Ms. Rico s presently at a dose of 2880 cGy her pelvis and is complaining about diarrhea at night. She is taking an antidiarrheal medication which she says helps. She is having no other complaints at this time related to her radiation therapy or disease. REVIEW OF SYSTEMS: The patient's review of systems is positive for some loose bowel movements and the pain, but is otherwise noncontributory except for general weakness. Denies nausea, vomiting, fevers, chills, night sweats, diplopia, headaches, anxiety or depression, anorexia, weight loss, visual disturbances, chest pain, urinary or bowel difficulties, bone pain, or neurological problems. PHYSICAL EXAMINATION: The patient's skin overall is in good condition with no evidence of moist or dry desquamation. The remainder of the physical exam remains unchanged. Ms. Rico is tolerating treatments quite well and radiation will continue as scheduled.
== END ==
LOC: M ONCR 10-19 14:50
PROVIDERS: ATTEND Radiology Radiation Oncology
DX: C19 Malignant neoplasm of rectosigmoid junction (principal)

== ENCOUNTER → 2019-11-17 | Outpatient (CLI) | payer MEDICARE, OTHER ==
[2019-11-17 14:58] LABS: BASO % 0.4 % (0.0-1.0); EOS # 0.1 10^3/uL (0.0-0.5); EOS % 1.5 % (0.0-3.0); HEMATOCRIT 32.6 % (36.0-47.0); HEMOGLOBIN 10.4 g/dl (12.0-15.5); LYMPH # 0.2 10^3/uL (1.5-5.0); LYMPH % 3.2 % (24.0-44.0); MEAN CORPUSCULAR HEMOGLOBIN 28.3 pg (27.0-33.0); MEAN CORPUSCULAR HGB CONC 31.9 g/dl (32.0-36.5); MEAN CORPUSCULAR VOLUME 88.6 fl (80.0-96.0); MONO # 0.6 10^3/uL (0.0-0.8); MONO % 13.6 % (0.0-5.0); NEUTROPHILS # 3.8 10^3/uL (1.5-8.5); NEUTROPHILS % 80.9 % (36.0-66.0); PLATELET COUNT, AUTOMATED 330 10^3/uL (150-450); RED BLOOD COUNT 3.68 10^6/uL (4.00-5.40); WHITE BLOOD COUNT 4.7 10^3/uL (4.0-10.0)
[2019-11-17 15:30] LABS: ALBUMIN 3.2 GM/DL (3.2-5.2); ALT/SGPT 17 U/L (12-78); BLOOD UREA NITROGEN 10 MG/DL (7-18); CALCIUM LEVEL 8.8 MG/DL (8.8-10.2); CARBON DIOXIDE LEVEL 26 MEQ/L (21-32); CHLORIDE LEVEL 109 MEQ/L (98-107); GLOMERULAR FILTRATION RATE > 60.0 (>39); GLUCOSE, FASTING 147 MG/DL (70-100); POTASSIUM SERUM 4.1 MEQ/L (3.5-5.1); SODIUM LEVEL 143 MEQ/L (136-145); TOTAL PROTEIN 6.3 GM/DL (6.4-8.2)
== END ==
LOC: M LAB 14:34
PROVIDERS: ATTEND Internal Medicine Medical Oncology
DX: C18.9 Malignant neoplasm of colon, unspecified (principal)

== ENCOUNTER 2019-11-20 14:45 | Outpatient (RCR) | payer MEDICARE, OTHER ==
--- NOTE | 2019-11-19 09:37 | RADONC ---
RADIATION ONCOLOGY PROGRESS NOTE DATE: 11/16/2019 CHART NUMBER: [id number] PROGRESS NOTE: Ms. Rico is presently at a dose of 3780 cGy to her rectum and is tolerating treatments quite well at this point with no significant difficulties related to her radiation therapy other than some diarrhea. REVIEW OF SYSTEMS: The patient's review of systems is positive for diarrhea, which has been controlled with Imodium. It is otherwise noncontributory. Denies nausea, vomiting, fevers, chills, night sweats, diplopia, headaches, anxiety or depression, anorexia, weight loss, visual disturbances, chest pain, urinary or bowel difficulties, bone pain, or neurological problems. PHYSICAL EXAMINATION: The patient's skin overall is in generally good condition with some radiation tanning present. The remainder of her physical exam remains unchanged. Ms. Rico is tolerating her treatments with some difficulty but radiation will continue as scheduled.
--- NOTE | 2019-11-24 16:20 | RADONC ---
RADIATION ONCOLOGY TREATMENT SUMMARY DATE: 11/21/2019 CHART NUMBER: [id number] DIAGNOSIS: 1. Rectal cancer. Stage IIIB, T3, N1, M0 2. Ascending colon/cecal cancer. ECOG performance status: One. TREATMENT SUMMARY: Ms. 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 We treated the patient to her cecum as well as rectal regions for a dose of 4500 cGy delivered in 25 fractions of 180 cGy each over 32 elapsed days from 10/19/2019 through 11/20/2019. The patient's primary site was treated on a linear accelerator utilizing a 3D conformal technique with a 15 MV photon beam. Ms. Rico tolerated her treatments quite well and was able to complete therapy as prescribed. I have scheduled the patient to see me again in 1 month for further followup. She will also continue to be followed by her other physicians as well. She is scheduled to be seen and discuss surgery once again. cc: FABIAN Cates MD, FACS
== END 2019-12-13 ==
LOC: M ONCR 14:45
PROVIDERS: ATTEND Radiology Radiation Oncology
DX: C19 Malignant neoplasm of rectosigmoid junction (principal)

== ENCOUNTER → 2019-12-01 | Outpatient (CLI) | payer MEDICARE, OTHER ==
[2019-12-01 15:37] LABS: BASO % 0.8 % (0.0-1.0); EOS # 0.1 10^3/uL (0.0-0.5); EOS % 2.2 % (0.0-3.0); HEMATOCRIT 29.7 % (36.0-47.0); HEMOGLOBIN 9.6 g/dl (12.0-15.5); LYMPH # 0.3 10^3/uL (1.5-5.0); LYMPH % 8.5 % (24.0-44.0); MEAN CORPUSCULAR HEMOGLOBIN 30.3 pg (27.0-33.0); MEAN CORPUSCULAR HGB CONC 32.3 g/dl (32.0-36.5); MEAN CORPUSCULAR VOLUME 93.7 fl (80.0-96.0); MONO # 0.5 10^3/uL (0.0-0.8); MONO % 14.8 % (0.0-5.0); NEUTROPHILS # 2.7 10^3/uL (1.5-8.5); NEUTROPHILS % 73.2 % (36.0-66.0); PLATELET COUNT, AUTOMATED 241 10^3/uL (150-450); RED BLOOD COUNT 3.17 10^6/uL (4.00-5.40); WHITE BLOOD COUNT 3.7 10^3/uL (4.0-10.0)
== END ==
LOC: M LAB 14:27
PROVIDERS: ATTEND Internal Medicine Hematology
DX: C18.9 Malignant neoplasm of colon, unspecified (principal)

== ENCOUNTER → 2019-12-08 | Outpatient (CLI) | payer MEDICARE, OTHER ==
[~2019-12-08] MED LIST changes: +GASTROGRAFIN SOLUTION 30ML (Q9963) As Ordered ONE; +ISOVUE-370 76% 100ML VIAL As Ordered ONE
--- NOTE | 2019-12-08 17:01 | REP ---
CT CHEST WITH IV CONTRAST: TECHNIQUE: Axial contrast-enhanced images from the thoracic inlet to the upper abdomen using 100 mL Isovue-370 intravenous contrast material with multiplanar reformations. COMPARISON: 08/24/2019 Lungs show no evidence of suspicious pulmonary nodule. There is biapical pleural thickening. A few subcentimeter mediastinal lymph nodes are present. There is no significant mediastinal, hilar, or chest wall lymphadenopathy. There is no pleural or pericardial effusion. The heart is normal in size. There is a small hiatal hernia. There is mild atherosclerotic calcification of the thoracic aorta with no aneurysm. There are degenerative changes of the spine with no compression fracture. IMPRESSION: No evidence of pulmonary nodule in either lung. No suspicious adenopathy. Electronically Signed by Chirag Hanna MD 12/09/2019 09:17 A
--- NOTE | 2019-12-08 17:11 | REP ---
CT ABDOMEN AND PELVIS WITH ORAL AND IV CONTRAST: TECHNIQUE: Axial contrast enhanced images from the lung bases to the pubic symphysis using 100 mL Isovue-370 intravenous contrast material with multiplanar reformations. COMPARISON: 08/24/2019 The liver demonstrates no mass. The spleen is normal in size with no intrinsic abnormality. The adrenal glands are normal. No pancreatic mass is seen. Bilateral renal cysts are again noted predominantly in the parapelvic regions. There is also a right lateral cortical cyst with diameter approximately 6 cm. Atherosclerotic calcifications are seen of the abdominal aorta without aneurysm. There is no significant adenopathy in the abdomen or pelvis. No free air or free fluid is seen. Oral contrast extends into the colon with no evidence of bowel obstruction. There is again asymmetric thickening of the wall of the cecum anteromedially similar to the prior study. Urinary bladder is mildly distended and grossly unremarkable. Left perianal soft tissue nodule measures about 2 cm in diameter, not significantly changed when compared to the prior study. There are degenerative changes of the spine. IMPRESSION: Thickening of the wall of the cecum and soft tissue nodule in the left perianal region approximately 2 cm in diameter. Both appear unchanged compared to the prior study of 08/26/2019. No new adenopathy or mass. There are bilateral renal cysts. Electronically Signed by Chirag Hanna MD 12/09/2019 09:17 A
== END ==
LOC: M RAD 11:38
PROVIDERS: ATTEND Internal Medicine Hematology
DX: C18.9 Malignant neoplasm of colon, unspecified (principal); K44.9 Diaphragmatic hernia without obstruction or gangrene; I70.0 Atherosclerosis of aorta
CPT/HCPCS: 71260; 74177; Q9963; Q9967

== ENCOUNTER → 2019-12-23 | Outpatient (CLI) | payer MEDICARE, OTHER ==
[~2019-12-23] MED LIST changes: -GASTROGRAFIN SOLUTION 30ML (Q9963) As Ordered ONE; -ISOVUE-370 76% 100ML VIAL As Ordered ONE
--- NOTE | 2019-12-29 13:02 | RADONC ---
RADIATION ONCOLOGY FOLLOWUP NOTE DATE: 12/23/2019 This is a telemedicine visit. The patient was informed of the risks including security breech, technological failure, inability to perform a comprehensive physical exam which could delay or prevent an accurate diagnosis, and potential complications from treatment decisions rendered over a telemedicine platform. The patient understands and consented to the use of telehealth services phone only. Chart #[id number] - [id number] DIAGNOSIS: 1. Rectal cancer. Stage III B, T3, N1, M0. DIAGNOSIS 2. Ascending colon/cecal cancer. ECOG PERFORMANCE STATUS: 1. FOLLOWUP NOTE: Ms. 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 The patient presents today reporting that generally she is doing quite well. She continues to be weak and has occasional diarrhea. She is having no significant pain. She has no blood in the stools, nausea or vomiting. She reports that she is going to [place] to see Dr. Galicia to have flexible scope and MRI. She will be seeing her surgeon on 01/08/2020. The patient's review of systems except for the above is noncontributory. Denies nausea, vomiting, fevers, chills, night sweats, diplopia, headaches, anxiety or depression, anorexia, weight loss, visual disturbances, chest pain, urinary or bowel difficulties, bone pain, or neurological problems. PHYSICAL EXAMINATION: Physical examination was deferred as per COVID-19 precautions. This was a telephone interview. ASSESSMENT: The patient is clinically improving. She is scheduled to see her surgeon in a week for scoping as well as MRI and further discussion of surgery. In light of this, I have set her up for routine followup in our office in three months' time. cc: FABIAN Cates MD, FACS
== END ==
LOC: M ONCR 13:54
PROVIDERS: ATTEND Radiology Radiation Oncology
DX: C18.0 Malignant neoplasm of cecum (principal)

== ENCOUNTER → 2020-01-05 | Outpatient (CLI) | payer MEDICARE, OTHER | LOC: M LABSMTC 10:02 | DX: Z03.818 Encounter for observation for suspected exposure to other biological agents ruled out (principal); Z11.59 Encounter for screening for other viral diseases | CPT/HCPCS: C9803; U0003 ==

== ENCOUNTER → 2020-03-23 | Outpatient (CLI) | payer MEDICARE, OTHER ==
[~2020-03-23] MED LIST changes: -AMLO10TA5 PO; +AMLO1TAB25 PO; -ASPI81TA85 PO; +ASPI81TA86 PO; +D31000TA2 PO; +DIGO0.123 PO; +DILT240C83 PO; +ELIQ2.5T PO; +METO1TAB7 PO; -NIAC10TAB PO; +NIAC1TAB14 PO; -VITAD1000T PO
--- NOTE | 2020-03-23 10:30 | RADONC ---
Radiation Oncology Hx/FUP Radiation Oncology Consult Date of Service: Mar 23, 2020 Pt Identifier Meron Rico is a 79 year old female seen for a followup visit today at the department of radiation oncology for a history of synchronous ypT3N1 ascending colon cancer, ypTisNx cecal cancer and ypT0N0 rectal cancers. She received neoadjuvant chemoradiation to the rectum/cecum 45 Gy in 25 fractions completed 11/18/19. This was followed by radical resection and ostomy. She declined post- operative chemotherapy. Diagnosis/Treatment History Oncologic History From Dr. Lambert's recent note: Synchronous ypT3 N1 ascending colon cancer, ypTisNx cecal cancer and ypT0N0 rectal cancer: -Colonoscopy 08/07/2019 showed a likely malignant tumor in the ascending colon and cecum and likely malignant partially obstructing tumor in the rectum. Biopsies of cecal/ascending colon mass showing invasive moderate to poorly differentiated adenocarcinoma. Rectal mass biopsy showing invasive moderately to poorly differentiated adenocarcinoma. With IHC testing showing low probability of MSIH. -CT chest, abdo en and pelvis 08/2019 showing no evidence of metastatic disease and PET/CT scan 08/2019 showing at least 1 suspicious lymph node adjacent to the cecal/ascending colon malignancy and rectal malignancy. No metastatic disease seen. -Concurrent capecitabine chemotherapy with radiation therapy to cecum and rectal region 10/2019 through 11/2019. -Underwent right hemicolectomy, open proctectomy and colostomy 02/02/2020 with pathology showing: - ypT3 N1 ascending colon invasive adenocarcinoma, moderately differentiated, invasion through muscularis propria into pericolorectal tissue. 08/03 lymph nodes positive. - ypTis Nx cecal Invasive adenocarcinoma, moderately differentiated, invading lamina propria. No lymph nodes submitted or found. - ypT0N0 rectal cancer. Pathology showing complete response with no viable cancer cells, 0/13 lymph nodes involved. Interval History Feels well. Ostomy functioning well. Gained 6 lbs in the last month. Appetite good. No abdominal pain. No urinary or bowel symptoms of concern. Has local colonoscopy followup in place. Also sees Dr. Lambert in 3 months time. Current Therapy Surveillance Stage As above Social History: Non-smoker Non-drinker Allergies / Meds Allergies: Coded Allergies: No Known Allergies (Unverified , 08/06/19) Home Meds Reported Medications Apixaban (Eliquis) 2.5 Mg Tablet, 1 TAB PO BID 03/15/20 Digoxin (Digoxin) 125 Mcg Tablet, 1 TAB PO DAILY 03/15/20 Metoprolol Succinate (Metoprolol Succinate) 50 Mg Tab.er.24h, 1 CAP PO DAILY 03/15/20 dilTIAZem HCl (Diltiazem 24Hr Cd) 240 Mg Cap.er.24h, 1 CAP PO DAILY 03/15/20 Diphenhydramine HCl (Benadryl) 25 Mg Capsule, 1 CAP PO DAILYPRN for 30 Days, CAP 08/25/19 Ketotifen Fumarate (Zaditor) 5 Ml Drops, 1 DROP OU BID 08/06/19 Atorvastatin Calcium (Atorvastatin Calcium) 20 Mg Tablet, 20 MG PO QHS 08/06/19 Lisinopril (Lisinopril) 10 Mg Tablet, 10 MG PO BID 08/06/19 Amlodipine Besylate (Amlodipine Besylate) 10 Mg Tablet, 10 MG PO DAILY 08/06/19 Metformin HCl (Metformin HCl) 500 Mg Tablet, 500 MG PO QPM 08/06/19 Glimepiride (Glimepiride) 1 Mg Tablet, 0.5 MG PO DAILY 08/06/19 Review of Systems Review of Systems Constitutional: Denies: ROS Unabtainable, Chills, Fever, Malaise, Night Sweats, Weakness, Fatigue, Weight Loss, Lethargy, Normal appetite, Other symptoms Eyes: Denies: Pain, Vision change, Conjunctivae inflammation, Eyelid inflammation, Redness, Other HEENT: Denies: Head Aches, Ear Pain, Dysphagia, Sinus Congestion, Post Nasal Drip, Sore Throat, Epistaxis, Other Symptoms Skin: Denies: Rash, Lesions, Jaundice, Bruising, Other Pulmonary: Denies: Dyspnea, Cough, Pleuritic Chest Pain, Other Symptoms Cardiovascular: Denies: Chest Pain, Palpitations, Orthopnea, Paroxysmal Noc. Dyspnea, Edema, Lt Headedness, Other Symptoms Gastrointestinal: Denies: Nausea, Vomiting, Abdominal Pain, Diarrhea, Constipation, Melena, Hematochezia, Other Symptoms Genitourinary: Denies: Dysuria, Frequency, Incontinence, Hematuria, Retention, Other Symptoms Hematologic: Denies: Bruising, Bleeding Excessively, Petecchia, Purpura, Enlarged Lymph Nodes, Other Hematologic Endocrine: Denies: Polydipsia, Polyphagia, Polyuria, Heat Intolerance, Cold Intolerance, Other Endocrine Sx Musculoskeletal: Denies: Neck pain, Shoulder pain, Arm pain, Back pain, Hand pain, Leg pain, Foot pain, Joint pain, Muscle pain, Spasms, Gout, Joint sweling, Muscle stiffness, Midthoracic pain, Other Neurological: Denies: Weakness, Numbness, Incoordination, Change in Speech, Confusion, Seizures, Other Symptoms Psych: Denies: Mood Normal, Anxiety, Depression, Memory Issues, Thoughts of Self Harm, Anger, Thoughts of harming Other, Other Psych Physical Examination General Exam: Positive: Alert, Cooperative, No Acute Distress Eye Exam: Positive: PERRLA, EOMI Neck Exam: Positive: Supple; Negative: Lymphadenopathy Chest Exam: Positive: Clear to auscultation, Normal air movement Heart Exam: Positive: Rate Normal, Irregular Rhythm Abdomen Exam: Positive: Normal bowel sounds, Soft, Other (Ostomy in place brown loose output); Negative: Tenderness Extremity Exam: Negative: Edema Skin Exam: Positive: Nl turgor and temperature; Negative: Rash Neuro Exam: Positive: Normal Gait, Normal Speech, Cranial Nerves 3-12 NL Psych Exam: Positive: Mental status NL, Mood NL Diagnostic and Laboratory Diagnostic Review Radiologic images, relevant labs and pathology reports were personally reviewed and discussed with Ms. Rico. Assessment and Plan Impression Assessment Ms. Rico is a 79 year old female seen for a followup visit today at the department of radiation oncology for a history of synchronous ypT3N1 ascending colon cancer, ypTisNx cecal cancer and ypT0N0 rectal cancers. She received neoadjuvant chemoradiation to the rectum/cecum 45 Gy in 25 fractions completed 11/18/19. This was followed by radical resection and ostomy. She declined post- operative chemotherapy. She is doing well overall, gaining weight. No concerns post-operatively or post-radiation. She has declined systemic therapy, which given her age is reasonable. I extolled the importance of surveillance colonoscopy, which she will have done locally. She also has close follow up with Dr. Lambert. I offered to see her again in 1 year, given she has no residual symptoms, however she asked to follow with me only as needed, to cut down on the number of her appointments. This is entirely reasonable and she said she would keep other scheduled follow up. Performance Status ECOG 1 Plan Follow up PRN Colonoscopy surveillance as previously planned Dr. Lambert will see her in 3 months Ms. Rico was encouraged to call with questions or concerns in the interim period. EUGENIO ALMANZA MD Mar 23, 2020 10:30
== END ==
LOC: M ONCR 09:32
PROVIDERS: ATTEND General Practice
DX: C18.0 Malignant neoplasm of cecum (principal)

== ENCOUNTER 2020-09-06 10:07 | Observation (INO) | payer MEDICARE, OTHER ==
[~2020-09-06] VITALS: Ht 154.9 cm; Wt 51.1 kg
[~2020-09-06 10:07] MED LIST changes: +ACET-683 PO; +CITR500T PO; +DOCUSATE SODIUM 100MG CAPSULE PO SCH; +FERR325T3 PO; +LASI20TA3 PO; +LISI10TA22 PO; -LISI10TA4 PO; +POTA20TA6 PO
--- OUTSIDE RECORDS SUMMARY | 2020-09-06 10:16 | CCD | Continuity of Care Document ---
Author Author Meron [facility] Organization Unknown Address [address] [place] [address] Phone [phone] Care Team Providers Care Field Scout Name Role Phone Post Audiology - Hearing Aid Equipment AUTM [phone] Niels Decker M.D. AUTM [phone] [facility] AUTM Problems Active Problems Provider Date Type 2 diabetes mellitus Edmond Hood M.D. Onset: 0 10/31/2010 Essential hypertension Edmond Hood M.D. Onset: Mixed hyperlipidemia Edmnod Hood M.D. Onset: 10/31 Social History Type Date Description Comments Sex Unknown Tobacco Use Start: Unknown Never Smoked Cigarettes Tobacco Use Start: Unknown Never Smoked Cigars Tobacco Use Start: Unknown Never Smoked A Pipe Smoking Status Reviewed: 06/16/20 Never Smoked A Pipe Tobacco Use Start: Unknown Never Used Smokeless Tobacco ETOH Use Denies alcohol use Tobacco Use Start: Unknown Patient has never smoked Recreational Drug Use Never Used Drugs Exercise Type/Frequency Exercises regularly Sun Exposure Use less than 15 SPF Seat Belt/Car Seat Always uses seat belt Smoke Alarms Yes Smoke Alarms Carbon Monoxide Detector: Yes Allergies, Adverse Reactions, Alerts Active Allergies Reaction Severity Comments Date NKDA 03/07/2005 Environmental 07/25/2009 Medications Active Medications SIG Qnty Indications Ordering Provide r Date Adapt Lubricating Deodorant Liqui d to be put in ostomy bag every 4 days and as needed with changes 2box C1 8.9 Nadiya Bryan FNP 06/16/2020 Z93.2 Blowing Rock Remover Wipes Misc use 3-4 wipes every 4 days and as needed when changing ostomy 2box Z93.2 Nadiya Bryan FNP 06/16/2020 C18.9 Efren Adapt Ceraing change every 4-5 days and as needed ref #[id number] 05 10units Nadiya Bryan FNP 05/05/2020 Clark 2 Piece Ostomy Skin Barrier ref # [id number] márquez ge every 4-5 days and as needed 10units C18.9 Nadiya Bryan FNP 04/14/2020 Z93.2 Efren 2 Piece Drainable Ostomy Pouch ref # [id number] c hange every 4-5 days and as needed 10units C18.9 Nadiya Bryan FNP 04/14/2020 Z93.2 Pantoprazole Sodium 40mg Solution Rec Unknown 02/09/2020 Eliquis 2.5mg Tablets 1 tab by mouth twice a day Unknown 02/09/2020 Diltiazem HCL ER Beads 240mg Caps ER 24HR one by mouth every day Unknown 0 Metoprolol Succinate ER 50mg Tablets ER 24HR 1 by mouth every day Unknown 020 Digoxin 250mcg Tablets 1 by mouth every day Unknown 02/09/2020 Onetouch Delica Lancets Extra Fine 33G Misc use for daily glucose checks 100units Angela Gamez M.D. 11/14/2016 Atorvastatin Calcium 20mg Tablets Take 1 Tablet Daily 90tabs E78.2 Anitha Gamez M.D. 016 Onetouch Ultra Blue Strips use to test blood sugar two times a day 100units Anitha Gamez M.D. 05/10/2015 Glimepiride 1mg Tablets take 1/2 tablet by mouth every morning for diabetes 45tabs E11.9 Anitha Gamez M.D. 11/01/2014 Glucometer Kit Machine use for twice daily glucose checks dx 250.00 1units Alex Hood M.D. 03/29/2014 Lancets Thin Misc use for daily glucose checks, dx 250.00 50units Nadiya Bryan FNP 4 Test Strip Strips use for twice daily blood glucose checks, dx e11.9 100units Nadiya Bryan FNP 03/29/2014 Metformin HCL 500mg Tablets take 1 tablet by mouth every evening with supper for diabetes 90tabs E11.9 Nadiya Bryan FNP 01/27/2010 Zaditor 0.025% Solution gtts bid Unknown Citracal Plus Tablets 2 by mouth every day Unknown Tylenol Muscle And Pain two tablets Q8 hours, do not exceed 6 tablets in 24 hours. Unknown Potassium Chloride Lina ER 20Meq Tablets ER 1 by mouth every day Unknown 000 Lasix 20mg Tablets one tab by mouth once daily as needed for ankle swelling Unknown History Medications Acetaminophen 325mg Tablets 2 by mouth every 6 hours as needed for pain Unknown 02/09/2020 - 02/16/2020 Immunizations CPT Code Status Date Vaccine Lot # [id number] Refused 04/17/2016 Pneumococcal Vaccine 85890 Refused 04/17/2016 Prevnar 13 [id number] Refused 04/17/2016 Influenza Vaccination Vital Signs Date Vital Result Comment 06/16/2020 2:25pm BP Systolic 151 mmHg BP Diastolic 79 mmHg BP Systolic Recheck 138 mmHg BP Diastolic Recheck 78 mmHg Heart Rate 71 /min Body Temperature 96.5 F Respiratory Rate 12 /min Height 61.5 inches 5'1.50" Weight 118.50 lb O2 % BldC Oximetry 97 % Peak Expiratory Flow Rate 289 Estimated Peak Flow Rate Topaz Body Weight 105 lb BMI (Body Mass Index) 22.0 kg/m2 04/14/2020 11:07am BP Systolic 138 mmHg BP Diastolic 90 mmHg Heart Rate 79 /min Body Temperature 97.8 F Respiratory Rate 18 /min Height 61.5 inches 5'1.50" Weight 122.38 lb O2 % BldC Oximetry 98 % Peak Expiratory Flow Rate 289 Estimated Peak Flow Rate Topaz Body Weight 105 lb BMI (Body Mass Index) 22.7 kg/m2 Results Test Acquired Date Facility Test Result H/L Range Note CBC With Differential/Platelet 06/13/2020 [facility] [id number] [employer] [facility], [address] [place] [address] [phone] WBC 3.7 x10E3/uL 3.4-10.8 1 RBC 3.42 x10E6/uL Low 3.77-5.28 Hemoglobin 10.2 g/dL Low 11.1-15.9 Hematocrit 31.4 % Low 34.0-46.6 MCV 92 fL 79-97 MCH 29.8 pg 26.6-33.0 MCHC 32.5 g/dL 31.5-35.7 RDW 14.0 % 11.7-15.4 Platelets 285 x10E3/uL 150-450 Neutrophils 75 % Not Estab. Lymphs 8 % Not Estab. Monocytes 14 % Not Estab. Eos 2 % Not Estab. Basos 1 % Not Estab. Immature Cells TNP Neutrophils (Absolute) 2.8 x10E3/uL 1.4-7.0 Lymphs (Absolute) 0.3 x10E3/uL Low 0.7-3.1 Monocytes(Absolute) 0.5 x10E3/uL 0.1-0.9 Eos (Absolute) 0.1 x10E3/uL 0.0-0.4 Baso (Absolute) 0.0 x10E3/uL 0.0-0.2 Immature Granulocytes 0 % Not Estab. Immature Grans (Abs) 0.0 x10E3/uL 0.0-0.1 NRBC TNP Hematology Comments: TNP Basic Metabolic Panel (8) 06/13/2020 [facility] [id number] [facility], [address] [place], [place] [id number] [phone] Glucose 98 mg/dL 65-99 BUN 20 mg/dL 8-27 Creatinine 0.70 mg/dL 0.57-1.00 eGFR If NonAfricn Am 82 mL/min/1.73 >59 eGFR If Africn Am 95 mL/min/1.73 >59 BUN/Creatinine Ratio 29 High 12-28 Sodium 142 mmol/L 134-144 Potassium 4.3 mmol/L 3.5-5.2 Chloride 106 mmol/L 96-106 Carbon Dioxide, Total 24 mmol/L 20-29 Calcium 9.3 mg/dL 8.7-10.3 CBC With Differential 03/15/2020 [facility] RADIOLOGY [place], [place] [id number] [phone] White Blood Count 4.9 10 Normal 4.0-10.0 Red Blood Count 3.30 10 Low 4.00-5.40 Hemoglobin 10.1 g/dL Low 12.0-15.5 Hematocrit 32.2 % Low 36.0-47.0 Mean Corpuscular Volume 97.6 fl High 80.0-96.0 Mean Corpuscular Hemoglobin 30.6 pg Normal 27.0-33.0 Mean Corpuscular HGB Conc 31.4 g/dL Low 32.0-36.5 Red Cell Distribution Width 15.0 % High 11.5-14.5 Platelet Count, Automated 420 10 Normal 150-450 Neutrophils % 74.3 % High 36.0-66.0 Lymph % 10.0 % Low 24.0-44.0 [place] % 13.3 % High 0.0-5.0 Eos % 1.4 % Normal 0.0-3.0 Baso % 0.6 % Normal 0.0-1.0 Immature Granulocyte % 0.4 % Normal 0-3.0 Nucleated Red Blood Cell % 0.0 % Normal 0-0 Neutrophils # 3.6 10 Normal 1.5-8.5 Lymph # 0.5 10 Low 1.5-5.0 [place] # 0.7 10 Normal 0.0-0.8 Eos # 0.1 10 Normal 0.0-0.5 Baso # 0.0 10 Normal 0.0-0.2 Comprehensive Metabolic Profil 03/15/2020 [address] [place] [id number] [phone] Glucose, Fasting 110 mg/dL High 70-100 Blood Urea Nitrogen 16 mg/dL Normal 7-18 Creatinine For GFR 0.69 mg/dL Normal 0.55-1.30 Glomerular Filtration Rate > 60.0 Normal >32 2 Sodium Level 144 mEq/L Normal 136-145 Potassium Serum 3.4 mEq/L Low 3.5-5.1 Chloride Level 109 mEq/L High 98-107 Carbon Dioxide Level 28 mEq/L Normal 21-32 Anion Gap 7 mEq/L Low 8-16 Calcium Level 9.0 mg/dL Normal 8.8-10.2 Ast/Sgot 9 U/L Normal 7-37 Alt/SGPT 9 U/L Low 12-78 Alkaline Phosphatase 110 U/L Normal 45-117 Bilirubin,Total 0.9 mg/dL Normal 0.2-1.0 Total Protein 6.7 GM/DL Normal 6.4-8.2 Albumin 3.2 GM/DL Normal 3.2-5.2 Albumin/Globulin Ratio 0.9 Low 1.2-2.2 Laboratory test finding 03/15/2020 [facility] [place], [place] [address] [phone] Iron (Fe) 30 g/dL Low 50-170 Carcinoembryonic Antigen 0.5 NG/ML Normal <2.5 3 Ferritin 341 NG/ML High 8-252 Coronavirus 2018 Nasopharygeal 01/05/2020 Patient S ervice Center [place], [place] [id number] [phone] Coronavirus 2019 Nasopharygeal Testing was perf <SEE N OTE> 4 1 A courtesy copy of this repo rt has been sent to the patient, 2 Units are mL/min/1.73 m2 Chronic Kidney Disease Staging per NKF: Stage I & II GFR >=60 Normal to Mildly Decreased Stage III GFR 30-59 Moderately Decreased Stage IV GFR 15-29 Severely Decreased Stage V GFR <15 Very Little GFR Left ESRD GFR <15 on BUNDLE HELPER 3 THE CEA ASSAY IS PERFORMED O N THE 99testsAUR BY CHEMILUMINESCENCE AND SHOULD NOT BE COMPARED INTERCHANGEABLY WITH OTHER METHODS. IT SHOULD NOT BE USED ALONE A SCREENING TEST OR DIAGNOSIS FOR THE PRESENCE OR ABSENCE OF MALIGNANT DISEASE. PREDICTIONS OF DISEASE RECURRENCE SHOULD NOT BE BASED SOLELY ON VALUES OBTAINED FROM SERIAL PATIENT SERUM VALUES. 4 Testing was performed using the matt(R) SARS-CoV-2 test. This test was developed and its performance characteristics determined by [employer]. This test has not been FDA cleared or approved. This test has been authorized by FDA under an Emergency Use Authorization (EUA). This test is only authorized for the duration of time the declaration that circumstances exist justifying the authorization of the emergency use of in vitro diagnostic tests for detection of SARS-CoV-2 virus and/or diagnosis of COVID-19 infection under section 564(b)(1) of the Act, 21 U.S.C. 360bbb-3(b)(1), unless the authorization is terminated or revoked sooner. When diagnostic testing is negative, the possibility of a false negative result should be considered in the context of a patient's recent exposures and the presence of clinical signs and symptoms consistent with COVID-19. An individual without symptoms of COVID-19 and who is not shedding SARS-CoV-2 virus would expect to have a negative (not detected) result in this assay. Performed at: - [facility] [id number] Field Laborer: Teresa Nguyen MD, Phone: [phone] Not Detected Procedures Date Code Description Status 12/17/2019 [id number] Diabetic Foot Exam Completed Medical Devices Description No Information Available Encounters Type Date Location Provider Dx Diagnosis Office Visit 06/16/2020 2:00p Main Office Pleskach, Nadiya, HYDROBLASTER I10 Essential (primary) hypertension E78.2 Mixed hyperlipidemia E11.69 Type 2 diabetes mellitus wit h other specified complication C18.9 Malignant neoplasm of colon, unspecified 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 I48.91 Unspecified atrial fibrillat ion Office Visit 04/14/2020 10:45a Main Office Pleskach, Nadiya, HYDROBLASTER M79.6 61 Pain in right lower leg C18.9 Malignant neoplasm of colon, unspecified 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 I48.91 Unspecified atrial fibrillat ion Office Visit 02/18/2020 2:15p Main Office Pleskach, Nadiya, HYDROBLASTER I48.9 1 Unspecified atrial fibrillation C18.9 Malignant neoplasm of colon, unspecified 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 Assessments Date Code Description Provider 06/16/2020 I10 Essential (primary) hypertension Pleskach, Nadiya, HYDROBLASTER 06/16/2020 E78.2 Mixed hyperlipidemia Pleskach, M jarocho, HYDROBLASTER 06/16/2020 E11.69 Type 2 diabetes mellitus with ot her specified complication Pleskach, Nadiya, HYDROBLASTER 06/16/2020 C18.9 Malignant neoplasm of colon, uns pecified Pleskach, Nadiya, HYDROBLASTER 06/16/2020 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 Pleskach, Nadiya , HYDROBLASTER 06/16/2020 I48.91 Unspecified atrial fibrillation Pleskach, Nadiya, HYDROBLASTER 04/14/2020 M79.661 Pain in right lower leg Pleskach , Nadiya, HYDROBLASTER 04/14/2020 C18.9 Malignant neoplasm of colon, uns pecified Pleskach, Nadiya, HYDROBLASTER 04/14/2020 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 Pleskach, Nadiya , HYDROBLASTER 04/14/2020 I48.91 Unspecified atrial fibrillation Pleskach, Nadiya, HYDROBLASTER 02/18/2020 I48.91 Unspecified atrial fibrillation Nadiya Bryan, HYDROBLASTER 02/18/2020 C18.9 Malignant neoplasm of colon, uns pecified Nadiya Bryan, HYDROBLASTER 02/18/2020 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 Nadiya Bryan , HYDROBLASTER Plan of Treatment Future Appointment(s):* 12/19/2020 2:15 pm - Nadiya Bryan FNP at Main Office 06/16/2020 - Nadiya Bryan FNP* I10 Essential (primary) hypertension* Comments:* controlled, continue current medications * Follow up:* 6 months * E78.2 Mixed hyperlipidemia* Comments:* continue statin * E11.69 Type 2 diabetes mellitus with other specified complication* Comments:* If BS stays down will stop glimepiride * C18.9 Malignant neoplasm of colon, unspecified* New Medication:* Adapt Lubricating Deodorant - to be put in ostomy bag every 4 days and as needed with changes * Blowing Rock Remover Wipes - use 3-4 wipes every 4 days and as needed when changing ostomy * 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* New Medication:* Adapt Lubricating Deodorant - to be put in ostomy bag every 4 days and as needed with changes * Blowing Rock Remover Wipes - use 3-4 wipes every 4 days and as needed when changing ostomy * I48.91 Unspecified atrial fibrillation Functional Status Functional Condition Comment Date Status Complete dentures Active Independent with all ADL's Activ e Glasses Active Independent with all IADL's Acti ve Corneal Implants Active Standard cane is used to ambulate uses occassionally a round house when really stiff from arthritis flare up Active Mental Status Mental Condition Comment Date Status None Active Referrals Refer to Reason for Referral Status Appt Date Niels Decker M.D. new onset of afib w/ rvr, pt was seen at [facility] by cardiology post procedure, and has been started on Eliquis. Closed 02/12 [address] [place] [facility] [address] [address] [phone]
--- OUTSIDE RECORDS SUMMARY | 2020-09-06 10:16 | CCD | Continuity of Care Document ---
Author Author Meron BRYAN [facility] Organization Unknown Address [address] [place] [address] Phone [phone] Care Team Providers Care Tool Smith Name Role Phone [facility] Equipment AUTM [phone] Niels Decker M.D. AUTM [phone] [facility] AUTM Problems Active Problems Provider Date Type 2 diabetes mellitus Edmond Hood M.D. Onset: 0 10/31/2010 Essential hypertension Edmond Hood M.D. Onset: Mixed hyperlipidemia Edmond Hood M.D. Onset: 10/31 Social History Type [...] C1 8.9 Nadiya Bryan FNP 06/16/2020 Z93.2 Hampton Remover Wipes Misc use 3-4 wipes every 4 days and as needed when changing ostomy 2box Z93.2 Nadiya Bryan FNP 06/16/2020 C18.9 Efren Adapt Ceraing change every 4-5 days and as needed ref #[id number] 05 10units Nadiya Bryan FNP 05/05/2020 [place] 2 Piece Ostomy Skin Barrier ref # [id number] márquez ge every 4-5 days and as needed 10units C18.9 Nadiya Bryan FNP 04/14/2020 Z93.2 Efren 2 Piece Drainable Ostomy Pouch ref # [id number] c hange every 4-5 days and as [...] CPT Code Status Date Vaccine Lot # [id number] Refused 04/17/2016 Pneumococcal Vaccine 00108 Refused 04/17/2016 Prevnar 13 06780 Refused 04/17/2016 Influenza Vaccination Vital Signs Date [...] Flow Rate 289 Estimated Peak Flow Rate [place] Body Weight 105 lb BMI (Body Mass Index) 22.0 kg/m2 04/14/2020 11:07am BP Systolic 138 mmHg BP Diastolic 90 mmHg Heart Rate 79 /min Body Temperature 97.8 F Respiratory Rate 18 /min Height 61.5 inches 5'1.50" Weight 122.38 lb O2 % BldC Oximetry 98 % Peak Expiratory Flow Rate 289 Estimated Peak Flow Rate [place] Body Weight 105 lb BMI (Body Mass Index) 22.7 kg/m2 Results Test Acquired Date Facility Test Result H/L Range Note CBC With Differential/Platelet 06/13/2020 [facility] [id number] [employer] [facility], [address] [place] [address] [phone] WBC 3.7 x10E3/uL 3.4-10.8 1 RBC 3.42 [...] TNP Basic Metabolic Panel (8) 06/13/2020 [facility] [id number] [facility], [address] [place], [place] [id number] [phone] Glucose 98 mg/dL 65-99 BUN 20 mg/dL 8-27 Creatinine 0.70 mg/dL 0.57-1.00 eGFR If NonAfricn Am 82 mL/min/1.73 >59 eGFR If Africn Am 95 mL/min/1.73 >59 BUN/Creatinine Ratio 29 High 12-28 Sodium 142 mmol/L 134-144 Potassium 4.3 mmol/L 3.5-5.2 Chloride 106 mmol/L 96-106 Carbon Dioxide, Total 24 mmol/L 20-29 Calcium 9.3 mg/dL 8.7-10.3 CBC With Differential 03/15/2020 Patient Service [facility] RADIOLOGY [place], [place] [id number] [phone] White Blood Count 4.9 10 Normal 4.0-10.0 [...] 36.0-66.0 Lymph % 10.0 % Low 24.0-44.0 Jackson % 13.3 % High 0.0-5.0 Eos % 1.4 % Normal 0.0-3.0 Baso % 0.6 % Normal 0.0-1.0 Immature Granulocyte % 0.4 % Normal 0-3.0 Nucleated Red Blood Cell % 0.0 % Normal 0-0 Neutrophils # 3.6 10 Normal 1.5-8.5 Lymph # 0.5 10 Low 1.5-5.0 Jackson # 0.7 10 Normal 0.0-0.8 Eos # 0.1 10 Normal 0.0-0.5 Baso # 0.0 10 Normal 0.0-0.2 Comprehensive Metabolic Profil 03/15/2020 Patient [place] [id number] [phone] Glucose, Fasting 110 mg/dL High 70-100 Blood [...] Laboratory test finding 03/15/2020 Patient [facility] [place], [place] [id number] [phone] Iron (Fe) 30 g/dL Low 50-170 Carcinoembryonic Antigen 0.5 NG/ML Normal <2.5 3 Ferritin 341 NG/ML High 8-252 Coronavirus 2018 Nasopharygeal 01/05/2020 Patient S ervice Center [place], [place] [id number] [phone] Coronavirus 2019 Nasopharygeal Testing was perf <SEE [...] Little GFR Left ESRD GFR <15 on SATELLITE 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 This test has not been FDA cleared [...] result in this assay. Performed at: - [facility] [id number] Machine Binder Stripper: Teresa Nguyen MD, Phone: [phone] Not Detected Procedures Date Code Description Status 12/17/2019 [id number] Diabetic Foot Exam Completed Medical Devices Description No Information Available Encounters Type Date Location Provider Dx Diagnosis Office Visit 04/14/2020 10:45a Main Office PlegudeliaachStevey, PMP CERTIFIED PROJECT MANAGER M79.6 61 Pain in right lower leg C18.9 Malignant neoplasm of colon, unspecified 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 I48.91 Unspecified atrial fibrillat ion Office Visit 02/18/2020 2:15p Main Office PlegudeliaachStevey, PMP CERTIFIED PROJECT MANAGER I48.9 1 Unspecified atrial fibrillation C18.9 Malignant neoplasm of colon, unspecified 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 Office Visit 12/17/2019 3:40p Main Office Ольга Hernandez PA-C Z00.0 0 Encntr for general adult medical exam w/o abnormal findings I10 Essential (primary) hyperten yara E78.2 Mixed hyperlipidemia E11.69 Type 2 diabetes mellitus wit h other specified complication C18.9 Malignant neoplasm of colon, unspecified Assessments Date Code Description Provider 06/16/2020 I10 Essential (primary) hypertension Pleskach Nadiya, PMP CERTIFIED PROJECT MANAGER 06/16/2020 E78.2 Mixed hyperlipidemia Pleskach, M jarocho, PMP CERTIFIED PROJECT MANAGER 06/16/2020 E11.69 Type 2 diabetes mellitus with ot her specified complication Pleskach, Nadiya, PMP CERTIFIED PROJECT MANAGER 06/16/2020 C18.9 Malignant neoplasm of colon, uns pecified Pleskach, Nadiya, PMP CERTIFIED PROJECT MANAGER 06/16/2020 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 Pleskach, Nadiya , PMP CERTIFIED PROJECT MANAGER 06/16/2020 I48.91 Unspecified atrial fibrillation Pleskach, Nadiya, PMP CERTIFIED PROJECT MANAGER 04/14/2020 M79.661 Pain in right lower leg Pleskach , Nadiya, PMP CERTIFIED PROJECT MANAGER 04/14/2020 C18.9 Malignant neoplasm of colon, uns pecified Pleskach, Nadiya, PMP CERTIFIED PROJECT MANAGER 04/14/2020 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 Pleskach, Nadiya , PMP CERTIFIED PROJECT MANAGER 04/14/2020 I48.91 Unspecified atrial fibrillation Nadiya Bryan, PMP CERTIFIED PROJECT MANAGER 02/18/2020 I48.91 Unspecified atrial fibrillation Nadiya Bryan, PMP CERTIFIED PROJECT MANAGER 02/18/2020 C18.9 Malignant neoplasm of colon, uns pecified Nadiya Bryan, PMP CERTIFIED PROJECT MANAGER 02/18/2020 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 Nadiya Bryan , PMP CERTIFIED PROJECT MANAGER 12/17/2019 Z00.00 Encounter for genera l adult medical examination without abnormal findings Anitha Gamez M.D. 12/17/2019 Z00.00 Encounter for genera l adult medical examination without abnormal findings Ольга Hernandez PA-C 12/17/2019 I10 Essential (primary) hypertension Anitha Gamez M.D. 12/17/2019 I10 Essential (primary) hypertension Ольга Hernandez PA-C 12/17/2019 E78.2 Mixed hyperlipidemia Srinivas Gamez M.D. 12/17/2019 E78.2 Mixed hyperlipidemia Alexandria Hernandez PA-C 12/17/2019 E11.69 Type 2 diabetes mellitus with ot her specified complication Anitha Gamez M.D. 12/17/2019 E11.69 Type 2 diabetes mellitus with ot her specified complication Ольга Hernandez PA-C 12/17/2019 C18.9 Malignant neoplasm of colon, uns pecified Anitha Gamez M.D. 12/17/2019 C18.9 Malignant neoplasm of colon, uns pecified Ольга Hernandez PA-C Plan of Treatment 06/16/2020 - Nadiya Bryan, PMP CERTIFIED PROJECT MANAGER* I10 Essential (primary) hypertension* Follow up:* 6 months * E78.2 Mixed hyperlipidemia * E11.69 Type 2 diabetes mellitus with other specified complication * C18.9 Malignant neoplasm of colon, unspecified* New Medication:* Adapt Lubricating Deodorant - to be put in ostomy bag every 4 days and as needed with changes * [place] Remover Wipes - use 3-4 wipes every 4 days and as needed when changing ostomy * 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* New Medication:* [employer] Lubricating Deodorant - to be put in ostomy bag every 4 days and as needed with changes * [place] Remover Wipes - use 3-4 wipes every [...] Date Status None Active Referrals Refer to Dr Reason for Referral Status Appt Date Niels Decker M.D. new onset of afib w/ rvr, pt was seen at [facility] by cardiology post procedure, and has been started on Eliquis. Closed 02/12 [address] [place] [address] [phone]
--- OUTSIDE RECORDS SUMMARY | 2020-09-06 10:17 | CCD ---
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 Name Role Phone Scordo, M Ольга PA Unavailable Unavailable Scordo, M Ольга PA Unavailable Unavailable Scordo, M Ольга PA Unavailable Unavailable Scordo, M Ольга PA Unavailable Unavailable Scordo, M Ольга PA Unavailable Unavailable Scordo, M Ольга PA Unavailable Unavailable Scordo, M Ольга PA Unavailable Unavailable Scordo, M Ольга PA Unavailable Unavailable Scordo, M Ольга PA Unavailable Unavailable Scordo, M Ольга PA Unavailable Unavailable Scordo, M Ольга PA Unavailable Unavailable Scordo, M Ольга PA Unavailable Unavailable Scordo, M Ольга PA Unavailable Unavailable Scordo, M Ольга PA Unavailable Unavailable Scordo, M Ольга PA Unavailable Unavailable Scordo, M Ольга PA Unavailable Unavailable Scordo, M Ольга PA Unavailable Unavailable Scordo, M Ольга PA Unavailable Unavailable Scordo, M Ольга PA Unavailable Unavailable Scordo, M Ольга PA Unavailable Unavailable Scordo, M Ольга PA Unavailable Unavailable Scordo, M Ольга PA Unavailable Unavailable Scordo, M Ольга PA Unavailable Unavailable Scordo, M Ольга PA Unavailable Unavailable Scordo, M Ольга PA Unavailable Unavailable Scordo, M Ольга PA Unavailable Unavailable Scordo, M Ольга PA Unavailable Unavailable Scordo, M Ольга PA Unavailable Unavailable Scordo, M Ольга PA Unavailable Unavailable Scordo, M Ольга PA Unavailable Unavailable Scordo, M Ольга PA Unavailable Unavailable Scordo, M Ольга PA Unavailable Unavailable Scordo, M Ольга PA Unavailable Unavailable Scordo, M Ольга PA Unavailable Unavailable Scordo, M Ольга PA Unavailable Unavailable Scordo, M Ольга PA Unavailable Unavailable Scordo, M Ольга PA Unavailable Unavailable Scordo, M Ольга PA Unavailable Unavailable Scordo, M Ольга PA Unavailable Unavailable Scordo, M Ольга PA Unavailable Unavailable Scordo, M Ольга PA Unavailable Unavailable Scordo, M Ольга PA Unavailable Unavailable Scordo, M Ольга PA Unavailable Unavailable Niels Decker MD Unavailable Unavailable Niels Decker MD Unavailable Unavailable Niels Decker MD Unavailable Unavailable Niels Decker MD Unavailable Unavailable Niels Decker MD Unavailable Unavailable Niels Decker MD Unavailable Unavailable Niels Decker MD Unavailable Unavailable Niels Decker MD Unavailable Unavailable Niels Decker MD Unavailable Unavailable Niels Decker MD Unavailable Unavailable Niels Decker MD Unavailable Unavailable Niels Decker MD Unavailable Unavailable Niels Decker MD Unavailable Unavailable Niels Decker MD Unavailable Unavailable Niels Decker MD Unavailable Unavailable Niels Decker MD Unavailable Unavailable Niels Decker MD Unavailable Unavailable Niels Decker MD Unavailable Unavailable Niels Decker MD Unavailable Unavailable Niels Decker MD Unavailable Unavailable Niels Decker MD Unavailable Unavailable Niels Decker MD Unavailable Unavailable Niels Decker MD Unavailable Unavailable Niels Decker MD Unavailable Unavailable Niels Decker MD Unavailable Unavailable Niels Decker MD Unavailable Unavailable Niels Decker MD Unavailable Unavailable Niels Decker MD Unavailable Unavailable Niels Decker MD Unavailable Unavailable Niels Decker MD Unavailable Unavailable Niels Decker MD Unavailable Unavailable Niels Decker MD Unavailable Unavailable Niels Decker MD Unavailable Unavailable Niels Decker MD Unavailable Unavailable Rayo Deckertech Unavailable Unavailable Niels Decker MD Unavailable Unavailable Niels Decker MD Unavailable Unavailable Niels eDcker MD Unavailable Unavailable Niels Decker MD Unavailable Unavailable Niels Decker MD Unavailable Unavailable Niels Decker MD Unavailable Unavailable Niels Decker MD Unavailable Unavailable Niels Decker MD Unavailable Unavailable Niels Decker MD Unavailable Unavailable Niels Decker MD Unavailable Unavailable Niels Decker MD Unavailable Unavailable Niels Decker MD Unavailable Unavailable Niels Decker MD Unavailable Unavailable Niels Decker MD Unavailable Unavailable Niels Decker MD Unavailable Unavailable Niels Decker MD Unavailable Unavailable Niels Decker MD Unavailable Unavailable iNels Decker MD Unavailable Unavailable Niels Decker MD Unavailable Unavailable Niels Decker MD Unavailable Unavailable Niels Decker MD Unavailable Unavailable Niels Decker MD Unavailable Unavailable Niels Decker MD Unavailable Unavailable Scordo, M Ольга PA Unavailable Unavailable Scordo, M Ольга PA Unavailable Unavailable Scordo, M Ольга PA Unavailable Unavailable Scordo, M Ольга PA Unavailable Unavailable Scordo, M Ольга PA Unavailable Unavailable Scordo, M Ольга PA Unavailable Unavailable Scordo, M Ольга PA Unavailable Unavailable Scordo, M Ольга PA Unavailable Unavailable Scordo, M Ольга PA Unavailable Unavailable Scordo, M Ольга PA Unavailable Unavailable Scordo, M Ольга PA Unavailable Unavailable Scordo, M Ольга PA Unavailable Unavailable Scordo, M Ольга PA Unavailable Unavailable Scordo, M Ольга PA Unavailable Unavailable Scordo, M Ольга PA Unavailable Unavailable Scordo, M Ольга PA Unavailable Unavailable Scordo, M Ольга PA Unavailable Unavailable Scordo, M Ольга PA Unavailable Unavailable Scordo, M Ольга PA Unavailable Unavailable Scordo, M Ольга PA Unavailable Unavailable Scordo, M Ольга PA Unavailable Unavailable Scordo, M Ольга PA Unavailable Unavailable Scordo, M Ольга PA Unavailable Unavailable Scordo, M Ольга PA Unavailable Unavailable Scordo, M Ольга PA Unavailable Unavailable Scordo, M Ольга PA Unavailable Unavailable Scordo, M Ольга PA Unavailable Unavailable Scordo, M Ольга PA Unavailable Unavailable Scordo, M Ольга PA Unavailable Unavailable Scordo, M Ольга PA Unavailable Unavailable Scordo, M Ольга PA Unavailable Unavailable Scordo, M Ольга PA Unavailable Unavailable Scordo, M Ольга PA Unavailable Unavailable Scordo, M Ольга PA Unavailable Unavailable Scordo, M Ольга PA Unavailable Unavailable Scordo, M Ольга PA Unavailable Unavailable Scordo, M Ольга PA Unavailable Unavailable Scordo, M Ольга PA Unavailable Unavailable Scordo, M Ольга PA Unavailable Unavailable Scordo, M Ольга PA Unavailable Unavailable Scordo, M Ольга PA Unavailable Unavailable Scordo, M Ольга PA Unavailable Unavailable Scordo, M Ольга PA Unavailable Unavailable Torres, L Samina PA Unavailable Unavailable Torres, L Samina PA Unavailable Unavailable Torres, L Samina PA Unavailable Unavailable Torres, L Samina PA Unavailable Unavailable Torres, L Samina PA Unavailable Unavailable Torres, L Samina PA Unavailable Unavailable Torres, L Samina PA Unavailable Unavailable Torres, L Samina PA Unavailable Unavailable Torres, L Samina PA Unavailable Unavailable Torres, L Samina PA Unavailable Unavailable Torres, L Samina PA Unavailable Unavailable Torres, L Samina PA Unavailable Unavailable Torres, L Samina PA Unavailable Unavailable Torres, L Samina PA Unavailable Unavailable Torres, L Samina PA Unavailable Unavailable Torres, L Samina PA Unavailable Unavailable Torres, L Samina PA Unavailable Unavailable Torres, L Samina PA Unavailable Unavailable Torres, L Samina PA Unavailable Unavailable Torres, L Samina PA Unavailable Unavailable Torres, L Samina PA Unavailable Unavailable Torres, L Samina PA Unavailable Unavailable Torres, L Samina PA Unavailable Unavailable Torres, L Samina PA Unavailable Unavailable Torres, L Samina PA Unavailable Unavailable Torres, L Samina PA Unavailable Unavailable Torres, L Samina PA Unavailable Unavailable Torres, L Samina PA Unavailable Unavailable Torres, L Samina PA Unavailable Unavailable Torres, L Samina PA Unavailable Unavailable Torres, L Samina PA Unavailable Unavailable Torres, L Samina PA Unavailable Unavailable Torres, L Samina PA Unavailable Unavailable Torres, L Samina PA Unavailable Unavailable Torres, L Samina PA Unavailable Unavailable Torres, L Samina PA Unavailable Unavailable Pleskach, Nadiya AIR GRINDER Unavailable Unavailable Pleskach, Nadiya AIR GRINDER Unavailable Unavailable Pleskach, Nadiya AIR GRINDER Unavailable Unavailable Pleskach, Nadiya AIR GRINDER Unavailable Unavailable Pleskach, Nadiya AIR GRINDER Unavailable Unavailable Pleskach, Nadiya AIR GRINDER Unavailable Unavailable Pleskach, Nadiya AIR GRINDER Unavailable Unavailable Pleskach, Nadiya AIR GRINDER Unavailable Unavailable Pleskach, Nadiya AIR GRINDER Unavailable Unavailable Pleskach, Nadiya AIR GRINDER Unavailable Unavailable Pleskach, Nadiya AIR GRINDER Unavailable Unavailable Pleskach, Nadiya AIR GRINDER Unavailable Unavailable Pleskach, Ndaiya AIR GRINDER Unavailable Unavailable Pleskach, Nadiya AIR GRINDER Unavailable Unavailable Pleskach, Nadiya AIR GRINDER Unavailable Unavailable Pleskach, Nadiya AIR GRINDER Unavailable Unavailable Pleskach, Nadiya AIR GRINDER Unavailable Unavailable Pleskach, Nadiya AIR GRINDER Unavailable Unavailable Pleskach, Nadiya AIR GRINDER Unavailable Unavailable Pleskach, Nadiya AIR GRINDER Unavailable Unavailable Pleskach, Nadiya AIR GRINDER Unavailable Unavailable Pleskach, Nadiya AIR GRINDER Unavailable Unavailable Pleskach, Nadiya AIR GRINDER Unavailable Unavailable Pleskach, Nadiya AIR GRINDER Unavailable Unavailable Pleskach, Nadiya AIR GRINDER Unavailable Unavailable Pleskach, Nadiya AIR GRINDER Unavailable Unavailable Pleskach, Nadiya AIR GRINDER Unavailable Unavailable Pleskach, Nadiya AIR GRINDER Unavailable Unavailable Pleskach, Nadiya AIR GRINDER Unavailable Unavailable Pleskach, Nadiya AIR GRINDER Unavailable Unavailable Re-disclosure Warning The records that you are about to access may contain information from federally-assisted alcohol or drug abuse programs. If such information is present, then the following federally mandated warning applies: This information has been disclosed to you from records protected by federal confidentiality rules (42 CFR part 2). The federal rules prohibit you from making any further disclosure of this information unless further disclosure is expressly permitted by the written consent of the person to whom it pertains or as otherwise permitted by 42 CFR part 2. A general authorization for the release of medical or other information is NOT sufficient for this purpose. The Federal rules restrict any use of the information to criminally investigate or prosecute any alcohol or drug abuse patient.The records that you are about to access may contain highly sensitive health information, the redisclosure of which is protected by Article 27-F of the [facility] Public Health law. If you continue you may have access to information: Regarding HIV / AIDS; Provided by facilities licensed or operated by the [facility] Office of Mental Health; or Provided by the [facility] Office for People With Developmental Disabilities. If such information is present, then the following [place] State mandated warning applies: This information has been disclosed to you from confidential records which are protected by state law. State law prohibits you from making any further disclosure of this information without the specific written consent of the person to whom it pertains, or as otherwise permitted by law. Any unauthorized further disclosure in violation of state law may result in a fine or alf sentence or both. A general authorization for the release of medical or other information is NOT sufficient authorization for further disc losure. Allergies and Adverse Reactions Type Description Substance Reaction Status Data Source(s ) No Known Drug Allergies No Known Drug Allergies No Known Drug Aller gies active [facility] ([facility] ) Family History Family Member Name Family Member Gender Family Member Status Date o f Status Description Data Source(s) Unknown Unknown Problem [facility] ([facility], ) Unknown Male Problem [facility] ([facility] Unknown Male Problem [facility] ([facility] Male Problem [facility] ([facility] Unknown Male Problem [facility] ([facility] Unknown Male Problem [facility] ([facility] Encounters Encounter Providers Location Date Indications Data Source(s ) Outpatient Attender: Samina [email or web address] 04/2020 12:00:00 AM EST - 06/23/2020 03:48:06 PM EST [facility] Outpatient Attender: Nadiya Bryan [facility] Main Office 06/16/2020 0 1:00:00 PM EST [facility] ([facility] Outpatient Attender: Nadiya PALACIOS Main Office 04/14/2020 1 0:45:00 AM EDT [facility] ([facility] Outpatient Attender: Niels [email or web address] 03/15 12:00:00 AM EDT - 03/24/2020 02:11:01 PM EDT [facility] Outpatient Attender: Niels [email or web address] 02/12 12:00:00 AM EDT - 02/23/2020 02:22:48 PM EDT [facility] Outpatient Attender: Nadiyajania Bryan AIR GRINDER Main Office 02/18/2020 0 2:15:00 PM EDT [facility] ([facility] 02/11/2020 01:00:00 AM EDT - 020 10:53:45 AM EDT [facility] ([facility]) Outpatient Attender: Ольга PERALTA Main Office 12/17/2019 03:40:00 PM EDT [facility] ([facility] Outpatient Referrer: Ольга PERALTA 09/03/2019 03:24:00 PM EST [facility] Outpatient Attender: Ольга PERALTA Main Office 08/18/2019 01:30:00 PM EST [facility] ([facility] Outpatient Attender: Ольга PERALTA Main Office 08/04/2019 09:30:00 AM EST [facility] ([facility] Medications Medication Brand Name Start Date Product Form Dose Route Admi nistrative Instructions Pharmacy Instructions Status Indications Reaction Description Data Source(s) glimepiride 1 MG Oral Tablet GLIMEPIRIDE 06/26/2020 12:00:00 AM EST ta blet 45 TAKE ONE-HALF TABLET BY MOUTH EVERY MORNING FOR DIABETES TAKE ONE-HALF TABLET BY MOUTH EVERY MORNING FOR DIABETES SOLD: 06/27/2020 [facility] Adapt Lubricating Deodorant 06/16/2020 12:00:00 AM EST active [facility] ([facility] [place] Remover Wipes 06/16/2020 12:00:00 AM EST active [facility] ([facility] Lancets (ONETOUCH DELICA PLUS [id number]) [facility] [id number] 06/05/2020 12:00:00 AM EST active [facility] Efren Adapt Ceraing 05/05/2020 12:00:00 AM EDT active [facility] ([facility] ONETOUCH ULTRA test strip [id number] 04/30/2020 12:00:00 AM EDT active [facility] Efren 2 Piece Ostomy Skin Barrier 04/14/2020 12:00:00 AM EDT active [facility] ([facility] Efren 2 Piece Drainable Ostomy Pouch 04/14/2020 12:00:00 AM EDT active [facility] ([facility] BLOOD SUGAR DIAGNOSTIC 04/05/2020 12:00:00 AM EDT strip 100 TEST TWO TIMES A DAY TEST TWO TIMES A DAY SOLD: 04/05/2020 [facility] 33 gauge 04/04/2020 12:00:00 AM EDT misc 50 USE ONCE DAILY USE ONCE DAILY SOLD: 04/04/2020 [facility] Furosemide 20 MG Oral Tablet furosemide (LASIX) 20 MG tablet furosemide (LASIX) 20 MG tablet 03/24/2020 12:00:00 AM EDT 20 mg Oral activ e Take 1 tablet (20 mg total) by mouth daily [facility] potassium chloride SA (K-DUR,KLOR-CON) 20 MEQ tablet [id number] 03/24/2020 12:00:00 AM EDT 20 meq Oral active Take 1 tablet (20 mEq total) by mouth daily [facility] 24 HR metoprolol succinate 50 MG Extende d Release Oral Tablet metoprolol succinate (TOPROL-XL) 50 MG 24 hr tablet metoprolol succinate (TOPROL-XL) 50 MG 24 hr tablet 03/07/2020 12:00:00 AM EDT 50 mg Oral activ e Take 1 tablet (50 mg total) by mouth daily [facility] 24 HR Diltiazem Hydrochloride 240 MG Ext ended Release Oral Capsule diltiazem (CARDIZEM CD) 240 MG 24 hr capsule diltiazem (CARDIZEM CD) 240 MG 24 hr capsule 03/07/2020 12:00:00 AM EDT 240 mg Oral active Take 1 capsule (240 mg total) by mouth daily [facility] apixaban 2.5 MG Oral Tablet apixaban (ELIQUIS) 2.5 MG TABS tablet apixaban (ELIQUIS) 2.5 MG TABS tablet 02/23/2020 12:00:00 AM EDT 2.5 mg Oral active Take 1 tablet (2.5 mg total) by mouth 2 (two) times a day [facility] Digoxin 0.125 MG Oral Tablet digoxin (LANOXIN) 125 MCG tablet digoxin (LANOXIN) 125 MCG tablet 02/23/2020 12:00:00 AM EDT 125 ug Oral act pamela Take 1 tablet (125 mcg total) by mouth daily [facility] Zaditor 0.025 % Zaditor 02/11/2020 01:00:00 AM EDT completed [facility] ([facility]) MetFORMIN HCl 500 MG MetFORMIN HCl 02/11/2020 01:00:00 AM EDT completed [facility] ([facility]) Atorvastatin Calcium 20 MG Atorvastatin Calcium 02/11/2020 01:00:00 A M EDT completed [facility] ( [facility]) Citracal + D 250-200 MG-UNIT Citracal + D 02/11/2020 01:00:00 AM EDT completed [facility] ([facility]) Glimepiride 1 MG Glimepiride 02/11/2020 01:00:00 AM EDT completed [facility] ([facility] ) Eliquis 2.5 MG Eliquis 02/11/2020 01:00:00 AM EDT completed [facility] ([facility]) Pantoprazole Sodium 40 MG Pantoprazole Sodium 02/11/2020 01:00:00 AM E DT completed [facility] ([facility]) Metoprolol Succinate ER 50 MG Metoprolol Succinate ER 2019 01:00:00 AM EDT completed [facility]AR T ([facility]) DilTIAZem CD 240 MG DilTIAZem CD 02/11/2020 01:00:00 AM EDT completed [facility] ([facility]) Acetaminophen ER 650 MG Acetaminophen ER 02/11/2020 01:00:00 AM EDT completed [facility] ([facility]) Digoxin 250 MCG Digoxin 02/11/2020 01:00:00 AM EDT completed [facility] ([facility]) Digoxin 0.25 MG Oral Tablet Digoxin 02/09/2020 12:00:00 AM EDT ORAL active [facility] ([facility] Acetaminophen 325 MG Oral Tablet Acetaminophen 02/09/2020 12:00:00 AM EDT ORAL completed [facility] ([facility] pantoprazole 4 MG/ML Injectable Solution Pantoprazole Sodium 02/09/2020 12:00:00 AM EDT active [facility] ([facility] apixaban 2.5 MG Oral Tablet [Eliquis] Eliquis 02/09/2020 12:00:00 AM EDT ORAL active [facility] ([facility] 24 HR Diltiazem Hydrochloride 240 MG Extended Release Oral Capsule Diltiazem HCL ER Beads 02/09/2020 12:00:00 AM EDT ORAL active [facility] ([facility] 24 HR metoprolol succinate 50 MG Extended Release Oral Tablet Metoprolol Succinate ER 02/09/2020 12:00:00 AM EDT ORAL active [facility] ([facility] 4 mg 11/17/2019 12:00:00 AM EDT tablet 30 TAKE ONE TABLET BY MOUTH EVERY 6 HOURS NEEDED FOR NAUSEA/VOMITING,TAKE 30 MINUTES PRIOR TO TO XELODA IN MORNING, THEN EVERY 6 HOURS NEEDED FOR NAUSEA TAKE ONE TABLET BY MOUTH EVERY 6 HOURS NEEDED FOR NAUSEA/VOMITING,TAKE 30 MINUTES PRIOR TO TO XELODA IN MORNING, THEN EVERY 6 HOURS NEEDED FOR NAUSEA SOLD: 2019 [facility] 17 gram 10/22/2019 12:00:00 AM EDT powder in packet 12 MIX 17 GRAMS IN 8 OUNCES OF WATER FOR CONSTIPATION ONCE OR TWICE DAILY - AVOID/STOP IF HAVING DIARRHEA MIX 17 GRAMS IN 8 OUNCES OF WATER FOR CO NSTIPATION ONCE OR TWICE DAILY - AVOID/STOP IF HAVING DIARRHEA SOLD: 10/24/2019 [facility] 1 gram 08/04/2019 12:00:00 AM EST tablet 30 TAKE 1 TABLET BY MOUTH BEFORE MEALS AND AT BEDIME UP TO FOUR TIMES A DAY TAKE 1 TABLET BY MOUTH BEFORE MEALS AND AT BEDIME UP TO FOUR TIMES A DAY SOLD: 08/17/2019 [facility] 1 gram 08/04/2019 12:00:00 AM EST tablet 30 TAKE 1 TABLET BY MOUTH BEFORE MEALS AND AT BEDIME UP TO FOUR TIMES A DAY TAKE 1 TABLET BY MOUTH BEFORE MEALS AND AT BEDIME UP TO FOUR TIMES A DAY SOLD: 08/04/2019 [facility] Sucralfate 1000 MG Oral Tablet Sucralfate 08/04/2019 12:00:00 AM EST ORAL completed [facility] ([facility] Ketotifen 0.25 MG/ML Ophthalmic Solution ketotifen (ZADITOR) 0.025 % ophthalmic solution ketotifen (ZADITOR) 0.025 % ophthalmic solution 1 [drp] aborted 1 drop 2 (two) times a day [facility] pantoprazole 40 MG Delayed Release Oral Tablet pantoprazole (PROTONIX) 40 MG tablet pantoprazole (PROTONIX) 40 MG tablet 40 mg Oral aborted Take 40 mg by mouth daily [facility] Insurance Providers Payer name Policy type / Coverage type Policy ID Covered alliance party ID Covered alliance party's relationship to payne Policy [place] Plan Information R [facility] [id number] SP [id number] MEDICARE [id number] SP [id number] UMR O [id number] S [id number] MEDICARE C [id number] S [id number] R [id number] MEDICARE [id number] R [id number] [place] [id number] MEDICARE [id number] [place] [id number] R [facility] [id number] SP [id number] UMR O [id number] S [id number] [place] Medicare Primary [id number] Self [id number] Medigap Part B [id number] Self [id number] Medicare [place] Primary [id number] Self [id number] UMR O UNAVAILABLE S UNAVAILA BLE MEDICARE C [id number] S [id number] Umr Medigap Part B [id number] Self [id number] [facility] Medicare Primary [id number] Self [id number] ANSI-Medicare Part B [id number] ANSI-Not a Secondary Insurance [id number] [place] Med[place] Part B [id number] Self [id number] [place] Medicare Primary [id number] Self [id number] [place] Med[place] Part B [id number] Self [id number] [place] Primary [id number] Self [id number] [place] Medig[place] Part B [id number] Self [id number] [place] Medicare Primary [id number] Self [id number] [place] Med[place] Part B [id number] Self [id number] [place] Primary [id number] Self [id number] [place] [employer] Part B Self [place] Self [employer] PPO O [id number] S [id number] [place] Med[employer] Part B Self Problems, Conditions, and Diagnoses Code Display Name Description Problem Type Effective Dates Data Source(s) R09.89 Labile blood pressure Labile blood pressure [id number] 06/23/2020 12:00:00 AM EST [facility] E11.9 Type 2 diabetes mellitus wit hout complication, without long-term current use of insulin Type 2 diabetes mellitus without complic ation, without long-term current use of insulin [id number] 06/23/2020 12:00:00 AM EST [facility] R60.0 Bilateral leg edema Bilateral leg edema [id number] 03/24/2020 12:00:00 AM EDT [facility] I48.19 Persistent atrial fibrillation Persistent atrial fibri llation [id number] 02/23/2020 12:00:00 AM EDT [facility] C18.0 Malignant neoplasm of cecum Malignant neoplasm of cecu m Problem 02/10/2020 01:00:00 AM EDT [facility] ([facility] ) C18.2 Malignant neoplasm of ascending colon Ma lignant neoplasm of ascending colon Problem 02/10/2020 01:00:00 AM EDT [facility] ([facility]) 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 Problem 02/10/2020 01:00:00 AM EDT [facility] ([facility]) K57.30 Diverticulosis of large inte kristian without perforation or abscess without bleeding Diverticulosis of large intestine withou t perforation or abscess without bleeding Problem 02/10/2020 01:00:00 AM EDT [facility] ([facility]) I48.91 Unspecified atrial fibrillation Unspecified atrial fib rillation Problem 02/10/2020 01:00:00 AM EDT [facility] ([facility] ) E11.9 Type 2 diabetes mellitus without complic ations Type 2 diabetes mellitus without complications Problem 02/10/2020 01:00:00 AM EDT [facility] ([facility]) Z43.3 Encounter for attention to colostomy Encounter f or attention to colostomy Problem 02/10/2020 01:00:00 AM EDT [facility] ([facility]) Z48.01 Encounter for change or removal of surgi gerald wound dressing Encounter for change or removal of surgical wound dressing Problem 02/10/2020 01:0 0:00 AM EDT [facility] ([facility]) 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 Acquired absence of other specified parts of digestive tract Problem 01:00:00 AM EDT [facility]SMART ([facility] ) Z92.3 Personal history of irradiation Personal history of ir radiation Problem 02/10/2020 01:00:00 AM EDT [facility] ([facility] ) Z79.84 group home (current) use of oral hypoglyc emic drugs group home (current) use of oral hypoglycemic drugs Problem 02/10/2020 01:00:00 AM EDT NE TSMART ([facility]) 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.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 group home (current) use of anticoagulants Problem 02/10/2020 01:00:00 AM EDT [facility]SM[facility] ([facility]) Z91.81 History of falling History of falling Problem 0 01:00:00 AM EDT [facility]SM[facility] ([facility]) Z48.3 Aftercare following surgery for neoplasm Aftercare following surgery for neoplasm Problem 02/10/2020 01:00:00 AM EDT [facility]SM[facility] ([facility]) Z48.815 Encounter for surgical after care following surgery on the digestive system Encounter for surgical aftercare followi ng surgery on the digestive system Problem 02/02/2020 01:00:00 AM EDT [facility]SM[facility] ([facility]) R60.0 Localized edema Localized edema Diagnosis 06/23/2020 02:2 9:56 PM EST [facility] I48.19 Other persistent atrial fibrillation Oth er persistent atrial fibrillation Diagnosis 06/23/2020 02:29:56 PM EST [facility] I48.0 Paroxysmal atrial fibrillation Paroxysmal atrial fibri llation Diagnosis 03/24/2020 01:21:28 PM EDT [facility] Surgeries/Procedures Procedure Description Date Indications Data Source(s) Diabetic Foot Exam 12/17/2019 12:00:00 AM EDT [facility] ([facility] Dr. Hood Results ID Date Data Source [id number] 06/13/2020 09:16:00 AM EST [facility] ([facility] Name Value Range Interpretation Code Description Data Radhika rce(s) Supporting Document(s) Glucose [Mass/volume] in Serum or Plasma 98 mg/dL 65-99 [facility] A courtesy copy of this report has been sent to the patient, Urea nitrogen [Mass/volume] in Serum or Plasma 20 mg/dL 8-27 [facility] A courtesy copy of this report has been sent to the patient, Creatinine [Mass/volume] in Serum or Plasma 0.70 mg/dL 0.57-1.00 [facility] A courtesy copy of this report has been sent to the patient, eGFR If NonAfricn Am 82 mL/min/1.73 [facility] A courtesy copy of this report has been sent to the patient, eGFR If Africn Am 95 mL/min/1.73 [facility] A courtesy copy of this report has been sent to the patient, Urea nitrogen/Creatinine [Mass Ratio] in Serum or Plasma 29 1 2-28 [facility] A courtesy copy of this report has been sent to the patient, Sodium [Moles/volume] in Serum or Plasma 142 mmol/L 134-144 [facility] A courtesy copy of this report has been sent to the patient, Chloride [Moles/volume] in Serum or Plasma 106 mmol/L 96-106 [facility] A courtesy copy of this report has been sent to the patient, Potassium [Moles/volume] in Serum or Plasma 4.3 mmol/L 3.5-5.2 [facility] A courtesy copy of this report has been sent to the patient, Calcium [Mass/volume] in Serum or Plasma 9.3 mg/dL 8.7-10.3 [facility] A courtesy copy of this report has been sent to the patient, Carbon dioxide, total [Moles/volume] in Serum or Plasma 24 mmol/L 20 -29 [facility] A courtesy copy of this report has been sent to the patient, ID Date Data Source [id number] 06/13/2020 09:16:00 AM EST [facility] ([facility] Name Value Range Interpretation Code Description Data Radhika rce(s) Supporting Document(s) Leukocytes [#/volume] in Blood by Automated count 3.7 x10E3/uL 3.4-10 .8 [facility] A courtesy copy of this report has been sent to the patient, Erythrocytes [#/volume] in Blood by Automated count 3.42 x10E6/uL 3.7 7-5.28 [facility] A courtesy copy of this report has been sent to the patient, Hematocrit [Volume Fraction] of Blood by Automated count 31.4 % 3 4.0-46.6 [facility] A courtesy copy of this report has been sent to the patient, Hemoglobin [Mass/volume] in Blood 10.2 g/dL 11.1-15.9 [facility] A courtesy copy of this report has been sent to the patient, Erythrocyte mean corpuscular volume [Entitic volume] by Auto mated count 92 fL 79-97 [facility] A courtesy copy of this report has been sent to the patient, Erythrocyte mean corpuscular hemoglobin [Entitic mass] by Automated count 29.8 pg 26.6-33.0 [facility] A courtesy copy of this report has been sent to the patient, Erythrocyte mean corpuscular hemoglobin concentration [Mass/volume] by Automated count 32.5 g/dL 31.5-35.7 [facility] A courtesy copy of this report has been sent to the patient, Erythrocyte distribution width [Ratio] by Automated count 14.0 % 11.7-15.4 [facility] A courtesy copy of this report has been sent to the patient, Platelets [#/volume] in Blood by Automated count 285 x10E3/uL 150-450 [facility] A courtesy copy of this report has been sent to the patient, Monocytes/100 leukocytes in Blood by Automated count 14 % [facility] A courtesy copy of this report has been sent to the patient, Neutrophils 75 % [facility] A courtesy copy of this report has been sent to the patient, Lymphocytes/100 leukocytes in Blood by Automated count 8 % [facility] A courtesy copy of this report has been sent to the patient, Eosinophils/100 leukocytes in Blood by Automated count 2 % [facility] A courtesy copy of this report has been sent to the patient, Basophils/100 leukocytes in Blood by Automated count 1 % [facility] A courtesy copy of this report has been sent to the patient, Lymphocytes [#/volume] in Blood 0.3 x10E3/uL 0.7-3.1 [facility] A courtesy copy of this report has been sent to the patient, Neutrophils [#/volume] in Blood by Automated count 2.8 x10E3/uL 1.4-7 .0 [facility] A courtesy copy of this report has been sent to the patient, Immature cells [#/volume] in Blood Laboratory test result [facility] A courtesy copy of this report has been sent to the patient, Eosinophils [#/volume] in Blood by Automated count 0.1 x10E3/uL 0.0-0 .4 [facility] A courtesy copy of this report has been sent to the patient, Monocytes [#/volume] in Blood 0.5 x10E3/uL 0.1-0.9 [facility] A courtesy copy of this report has been sent to the patient, Basophils [#/volume] in Blood by Automated count 0.0 x10E3/uL 0.0-0.2 [facility] A courtesy copy of this report has been sent to the patient, Immature granulocytes/100 leukocytes in Blood by Automated count 0 % [facility] A courtesy copy of this report has been sent to the patient, Immature granulocytes [#/volume] in Blood by Automated count 0.0 x10E3/uL 0.0-0.1 [facility] A courtesy copy of this report has been sent to the patient, Nucleated erythrocytes/100 leukocytes [Ratio] in Blood by Automated count Laboratory test result [facility] A courtesy copy of this report has been sent to the patient, Morphology [Interpretation] in Blood Narrative Laboratory test result [facility] A courtesy copy of this report has been sent to the patient, ID Date Data Source [id number] 06/14/2020 06:06:00 AM EST [facility] Name Value Range Interpretation Code Description Data Radhika rce(s) Supporting Document(s) WBC 3.7 x10E3/uL 3.4-10.8 [facility] RBC 3.42 x10E6/uL 3.77-5.28 Below low normal [facility] Hemoglobin 10.2 g/dL 11.1-15.9 Below low normal [facility] Hematocrit 31.4 % 34.0-46.6 Below low normal [facility] MCV 92 fL 79-97 [facility] MCH 29.8 pg 26.6-33.0 [facility] MCHC 32.5 g/dL 31.5-35.7 [facility] RDW 14.0 % 11.7-15.4 [facility] Platelets 285 x10E3/uL 150-450 [facility] Neutrophils 75 % Not Estab. [facility] Lymphs 8 % Not Estab. [facility] Monocytes 14 % Not Estab. [facility] Eos 2 % Not Estab. [facility] Basos 1 % Not Estab. [facility] Neutrophils (Absolute) 2.8 x10E3/uL 1.4-7.0 [facility] Lymphs (Absolute) 0.3 x10E3/uL 0.7-3.1 Below low normal [facility] Monocytes(Absolute) 0.5 x10E3/uL 0.1-0.9 [facility] Eos (Absolute) 0.1 x10E3/uL 0.0-0.4 [facility] Baso (Absolute) 0.0 x10E3/uL 0.0-0.2 [facility] Immature Granulocytes 0 % Not Estab. [facility] Immature Grans (Abs) 0.0 x10E3/uL 0.0-0.1 [facility] ID Date Data Source [id number] 06/14/2020 08:07:00 AM EST [facility] Name Value Range Interpretation Code Description Data Radhika rce(s) Supporting Document(s) Glucose 98 mg/dL 65-99 [facility] BUN 20 mg/dL 8-27 [facility] Creatinine 0.70 mg/dL 0.57-1.00 [facility] eGFR If NonAfricn Am 82 mL/min/1.73 >59 [facility] eGFR If Africn Am 95 mL/min/1.73 >59 [facility] BUN/Creatinine Ratio 29 12-28 Above high normal [facility] Sodium 142 mmol/L 134-144 [facility] Potassium 4.3 mmol/L 3.5-5.2 [facility] Chloride 106 mmol/L 96-106 [facility] Carbon Dioxide, Total 24 mmol/L 20-29 [facility] Calcium 9.3 mg/dL 8.7-10.3 [facility] ID Date Data Source [id number] 04/14/2020 12:00:00 AM EDT [facility] Patient Name: PANCHITO [id number] Date of : 1940[place] [address] Date of Exam: 04/14/2020#: Fax: [phone] EXAM: US RIGHT EXTREMITY VEINS, UNILATCLINICAL INFORMATION: Pain and swelling.VENOUS ULTRASOUND OF THE RIGHT LOWER EXTREMITY:Multiple ultrasonographic images of the deep venous structures of the rightthigh were obtained from the level of the common femoral vein to thepopliteal vein in the longitudinal and transverse scan planes along withDoppler interrogation and color flow Doppler imaging.There is no abnormal echogenic material seen within any of the visualizeddeep venous structures that would suggest acute thrombosis. Coaptation isunremarkable throughout. Doppler interrogation shows an expected responseto respiratory variability and augmentation. 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 Electronically Signed - ESTHER KAUR DO 04/14/20 17:03 Name Value Range Interpretation Code Description Data Radhika rce(s) Supporting Document(s) ID Date Data Source [id number] 03/15/2020 03:52:00 PM EDT [facility] ([facility] Name Value Range Interpretation Code Description Data Radhika rce(s) Supporting Document(s) Iron [Mass/volume] in Serum or Plasma 30 ug/dL 50-170 [facility] Carcinoembryonic Ag [Mass/volume] in Serum or Plasma 0.5 ng/mL [facility] THE CEA ASSAY IS PERFORMED ON THE SosediR BY CHEMILUMINESCENCE AND SHOULD NOT BE COMPARED INTERCHANGEABLY WITH OTHER METHODS. IT SHOULD NOT BE USED ALONE A SCREENING TEST OR DIAGNOSIS FOR THE PRESENCE OR ABSENCE OF MALIGNANT DISEASE. PREDICTIONS OF DISEASE RECURRENCE SHOULD NOT BE BASED SOLELY ON VALUES OBTAINED FROM SERIAL PATIENT SERUM VALUES. Ferritin [Mass/volume] in Serum or Plasma 341 ng/mL 8-252 [facility] ID Date Data Source [id number] 03/15/2020 03:52:00 PM EDT [facility] ([facility] Name Value Range Interpretation Code Description Data Radhika rce(s) Supporting Document(s) Creatinine For GFR 0.69 mg/dL 0.55-1.30 [facility] Blood Urea Nitrogen 16 mg/dL 7-18 [facility] ([facility] Glucose, Fasting 110 mg/dL 70-100 [facility] ([facility] Potassium Serum 3.4 meq/L 3.5-5.1 [facility] Glomerular Filtration Rate Laboratory test result [facility] ([facility] <content>Units are mL/min/1.73 m2</content>
<content></content>
<content>Chronic Kidney Disease Staging per NKF:</content>
<content></content>
<content>Stage I & II GFR >=60 Normal to Mildly Decreased</content>
<content>Stage III GFR 30- 59 Moderately Decreased</content>
<content>Stage IV GFR 15-29 Severely Decreased</content>
<content>Stage V GFR <15 Very Little GFR Left</content>
<content>ESRD GFR <15 on LOGISTICS ENGINEERING MANAGER</content>
<content></content> Sodium Level 144 meq/L 136-145 [facility] Carbon Dioxide Level 28 meq/L 21-32 [facility] Anion Gap 7 meq/L 8-16 [facility] Chloride Level 109 meq/L 98-107 [facility] Alt/SGPT 9 U/L 12-78 [facility] Calcium Level 9.0 mg/dL 8.8-10.2 [facility] Ast/Sgot 9 U/L 7-37 [facility] Bilirubin,Total 0.9 mg/dL 0.2-1.0 [facility] Alkaline Phosphatase 110 U/L 45-117 [facility] ([facility] Total Protein 6.7 GM/DL 6.4-8.2 [facility] Albumin/Globulin Ratio 0.9 1.2-2.2 [facility] Albumin 3.2 GM/DL 3.2-5.2 [facility] ID Date Data Source [id number] 03/15/2020 03:52:00 PM EDT [facility] ([facility] Name Value Range Interpretation Code Description Data Radhika rce(s) Supporting Document(s) White Blood Count 4.9 10 4.0-10.0 [facility] ([facility] Hemoglobin 10.1 g/dL 12.0-15.5 [facility] Red Blood Count 3.30 10 4.00-5.40 [facility] Hematocrit 32.2 % 36.0-47.0 [facility] Mean Corpuscular Hemoglobin 30.6 pg 27.0-33.0 [facility] Mean Corpuscular HGB Conc 31.4 g/dL 32.0-36.5 [facility] Mean Corpuscular Volume 97.6 fl 80.0-96.0 M [facility] ([facility] Platelet Count, Automated 420 10 150-450 [facility] Neutrophils % 74.3 % 36.0-66.0 [facility] Red Cell Distribution Width 15.0 % 11.5-14.5 [facility] Ware % 13.3 % 0.0-5.0 [facility] Eos % 1.4 % 0.0-3.0 [facility] Lymph % 10.0 % 24.0-44.0 [facility] Baso % 0.6 % 0.0-1.0 [facility] Immature Granulocyte % 0.4 % 0-3.0 [facility] Nucleated Red Blood Cell % 0.0 % 0-0 [facility] ([facility] Ware # 0.7 10 0.0-0.8 [facility] Lymph # 0.5 10 1.5-5.0 [facility] Neutrophils # 3.6 10 1.5-8.5 [facility] Baso # 0.0 10 0.0-0.2 [facility] Eos # 0.1 10 0.0-0.5 [facility] ID Date Data Source 02/01/2020 12:00:00 AM EDT [facility] Name Value Range Interpretation Code Description Data Radhika rce(s) Supporting Document(s) 2019 Novel Coronavirus RNA LOCATED WITHIN [facility] This lab was ordered by [facility] and reported by [facility]. ID Date Data Source [id number] 01/05/2020 10:05:00 AM EDT [facility] ([facility] Name Value Range Interpretation Code Description Data Radhika rce(s) Supporting Document(s) Coronavirus 2019 Nasopharygeal Laboratory test result [facility] ([facility] Testing was performed using the matt(R) SARS-CoV-2 test. This test was developed and its performance characteristics determined by [facility]. This test has not been FDA cleared [...] detected) result in this assay. Performed at: [address] [id number] Head Librarian: Teresa Nguyen MD, Phone: [phone] Not Detected ID Date Data Source [id number] 01/05/2020 10:05:00 AM EDT [facility] Name Value Range Interpretation Code Description Data [facility](s) Supporting Document(s) SARS CORONAVIRUS 2 RNA [facility] This lab was ordered by [facility] and reported by [facility]. ID Date Data Source [id number] 12/11/2019 08:56:00 AM EDT [facility] ([facility] Name Value Range Interpretation Code Description Data [facility](s) Supporting Document(s) Urea nitrogen [Mass/volume] in Serum or Plasma 13 mg/dL 8-27 [facility] A courtesy copy of this report has been sent to the patient, Glucose [Mass/volume] in Serum or Plasma 117 mg/dL 65-99 [facility] A courtesy copy of this report has been sent to the patient, Creatinine [Mass/volume] in Serum or Plasma 0.58 mg/dL 0.57-1.00 [facility] A courtesy copy of this report has been sent to the patient, eGFR If NonAfricn Am 87 mL/min/1.73 [facility] A courtesy copy of this report has been sent to the patient, eGFR If Africn Am 101 mL/min/1.73 [facility] A courtesy copy of this report has been sent to the patient, Urea nitrogen/Creatinine [Mass Ratio] in Serum or Plasma 22 1 2-28 [facility] A courtesy copy of this report has been sent to the patient, Sodium [Moles/volume] in Serum or Plasma 143 mmol/L 134-144 [facility] A courtesy copy of this report has been sent to the patient, Chloride [Moles/volume] in Serum or Plasma 106 mmol/L 96-106 [facility] A courtesy copy of this report has been sent to the patient, Potassium [Moles/volume] in Serum or Plasma 4.5 mmol/L 3.5-5.2 [facility] A courtesy copy of this report has been sent to the patient, Carbon dioxide, total [Moles/volume] in Serum or Plasma 23 mmol/L 20 -29 [facility] A courtesy copy of this report has been sent to the patient, Calcium [Mass/volume] in Serum or Plasma 9.3 mg/dL 8.7-10.3 [facility] A courtesy copy of this report has been sent to the patient, Protein, Total 6.6 g/dL 6.0-8.5 [facility] A courtesy copy of this report has been sent to the patient, Albumin [Mass/volume] in Serum or Plasma 4.0 g/dL 3.7-4.7 [facility] A courtesy copy of this report has been sent to the patient, Bilirubin.total [Mass/volume] in Serum or Plasma 0.8 mg/dL 0.0-1.2 [facility] A courtesy copy of this report has been sent to the patient, Globulin [Mass/volume] in Serum by calculation 2.6 g/dL 1.5-4.5 [facility] A courtesy copy of this report has been sent to the patient, Albumin/Globulin [Mass Ratio] in Serum or Plasma 1.5 1.2-2.2 [facility] A courtesy copy of this report has been sent to the patient, Aspartate aminotransferase [Enzymatic activity/volume] in Serum or Plasma 17 IU/L 0-40 [facility] A courtesy copy of this report has been sent to the patient, Alkaline phosphatase [Enzymatic activity/volume] in Serum or Plasma 83 IU/L 39-117 [facility] A courtesy copy of this report has been sent to the patient, Alanine aminotransferase [Enzymatic activity/volume] in Seru m or Plasma 13 IU/L 0-32 [facility] A courtesy copy of this report has been sent to the patient, ID Date Data Source [id number] 12/11/2019 08:56:00 AM EDT [facility] Name Value Range Interpretation Code Description Data Radhika rce(s) Supporting Document(s) Cholesterol [Mass/volume] in Serum or Plasma 143 mg/dL 100-199 [facility] A courtesy copy of this report has been sent to the patient, Triglyceride [Mass/volume] in Serum or Plasma 200 mg/dL 0-149 [facility] A courtesy copy of this report has been sent to the patient, Cholesterol in LDL [Mass/volume] in Serum or Plasma by calcu lation 67 mg/dL 0-99 [facility] A courtesy copy of this report has been sent to the patient, Cholesterol in HDL [Mass/volume] in Serum or Plasma 36 mg/dL [facility] A courtesy copy of this report has been sent to the patient, Cholesterol in VLDL [Mass/volume] in Serum or Plasma by calc ulation 40 mg/dL 5-40 [facility] A courtesy copy of this report has been sent to the patient, Comment: Laboratory test result [facility] A courtesy copy of this report has been sent to the patient, ID Date Data Source [id number] 12/11/2019 08:56:00 AM EDT [facility] ([facility] Name Value Range Interpretation Code Description Data Radhika rce(s) Supporting Document(s) Hemoglobin A1c/Hemoglobin.total in Blood 5.3 % 4.8-5.6 [facility] A courtesy copy of this report has been sent to the patient, ID Date Data Source [id number] 12/12/2019 06:06:00 AM EDT [facility] Name Value Range Interpretation Code Description Data Radhika rce(s) Supporting Document(s) Glucose 117 mg/dL 65-99 Above high normal [facility] BUN 13 mg/dL 8-27 [facility] Creatinine 0.58 mg/dL 0.57-1.00 [facility] eGFR If NonAfricn Am 87 mL/min/1.73 >59 [facility] eGFR If Africn Am 101 mL/min/1.73 >59 [facility] BUN/Creatinine Ratio 22 12-28 [facility] Sodium 143 mmol/L 134-144 [facility] Potassium 4.5 mmol/L 3.5-5.2 [facility] Chloride 106 mmol/L 96-106 [facility] Carbon Dioxide, Total 23 mmol/L 20-29 [facility] Calcium 9.3 mg/dL 8.7-10.3 [facility] Protein, Total 6.6 g/dL 6.0-8.5 [facility] Albumin 4.0 g/dL 3.7-4.7 [facility] Globulin, Total 2.6 g/dL 1.5-4.5 [facility] A/G Ratio 1.5 1.2-2.2 [facility] Bilirubin, Total 0.8 mg/dL 0.0-1.2 [facility] Alkaline Phosphatase 83 IU/L 39-117 [facility] AST (SGOT) 17 IU/L 0-40 [facility] ALT (SGPT) 13 IU/L 0-32 [facility] ID Date Data Source [id number] 12/12/2019 12:05:00 PM EDT [facility] Name Value Range Interpretation Code Description Data Radhika rce(s) Supporting Document(s) Hemoglobin A1c 5.3 % 4.8-5.6 [facility] Prediabetes: 5.7 - 6.4 Diabetes: >6.4 Glycemic control for adults with diabetes: <7.0 ID Date Data Source [id number] 12/12/2019 06:06:00 AM EDT [facility] Name Value Range Interpretation Code Description Data Radhika rce(s) Supporting Document(s) Cholesterol, Total 143 mg/dL 100-199 [facility] Triglycerides 200 mg/dL 0-149 Above high normal [facility] HDL Cholesterol 36 mg/dL >39 Below low normal [facility] VLDL Cholesterol Gerald 40 mg/dL 5-40 [facility] LDL Cholesterol Calc 67 mg/dL 0-99 [facility] ID Date Data Source [id number] 12/01/2019 02:39:00 PM EDT [facility] Name Value Range Interpretation Code Description Data Radhika rce(s) Supporting Document(s) Neutrophils % 73.2 % 36.0-66.0 [facility] Lymph % 8.5 % 24.0-44.0 [facility] Ware % 14.8 % 0.0-5.0 [facility] Baso % 0.8 % 0.0-1.0 [facility] Eos % 2.2 % 0.0-3.0 [facility] Lymph # 0.3 10 1.5-5.0 [facility] Immature Granulocyte % 0.5 % 0-3.0 [facility] Neutrophils # 2.7 10 1.5-8.5 [facility] Ware # 0.5 10 0.0-0.8 [facility] Eos # 0.1 10 0.0-0.5 [facility] Baso # 0.0 10 0.0-0.2 [facility] ID Date Data Source [id number] 12/01/2019 02:39:00 PM EDT [facility] Name Value Range Interpretation Code Description Data Radhika rce(s) Supporting Document(s) White Blood Count 3.7 10 4.0-10.0 [facility] Hematocrit 29.7 % 36.0-47.0 [facility] Red Blood Count 3.17 10 4.00-5.40 [facility] Hemoglobin 9.6 g/dL 12.0-15.5 [facility] Mean Corpuscular Volume 93.7 fl 80.0-96.0 M [facility] Mean Corpuscular HGB Conc 32.3 g/dL 32.0-36.5 [facility] Mean Corpuscular Hemoglobin 30.3 pg 27.0-33.0 [facility] Platelet Count, Automated 241 10 150-450 [facility] ([facility] Nucleated Red Blood Cell % 0.0 % 0-0 [facility] ([facility] ID Date Data Source [id number] 11/17/2019 02:42:00 PM EDT [facility] ([facility] Name Value Range Interpretation Code Description Data Radhika rce(s) Supporting Document(s) Carcinoembryonic Ag [Mass/volume] in Serum or Plasma 1.0 ng/mL [facility] THE CEA ASSAY IS PERFORMED ON THE [employer] BY CHEMILUMINESCENCE AND SHOULD NOT BE COMPARED INTERCHANGEABLY WITH OTHER METHODS. IT SHOULD NOT BE USED ALONE A SCREENING TEST OR DIAGNOSIS FOR THE PRESENCE OR ABSENCE OF MALIGNANT DISEASE. PREDICTIONS OF DISEASE RECURRENCE SHOULD NOT BE BASED SOLELY ON VALUES OBTAINED FROM SERIAL PATIENT SERUM VALUES. ID Date Data Source [id number] 11/17/2019 02:42:00 PM EDT [facility] ([facility] Name Value Range Interpretation Code Description Data Radhika rce(s) Supporting Document(s) Glucose, Fasting 147 mg/dL 70-100 [facility] Blood Urea Nitrogen 10 mg/dL 7-18 [facility] ([facility] Glomerular Filtration Rate Laboratory test result [facility] ([facility] <content>Units are mL/min/1.73 m2</content>
<content></content>
<content>Chronic Kidney Disease Staging per [facility]:</content>
<content></content>
<content>Stage I & II GFR >=60 Normal to Mildly Decreased</content>
<content>Stage III GFR 30- 59 Moderately Decreased</content>
<content>Stage IV GFR 15-29 Severely Decreased</content>
<content>Stage V GFR <15 Very Little GFR Left</content>
<content>ESRD GFR <15 on LOGISTICS ENGINEERING MANAGER</content>
<content></content> Creatinine For GFR 0.80 mg/dL 0.55-1.30 [facility] Potassium Serum 4.1 meq/L 3.5-5.1 [facility] ([facility] Chloride Level 109 meq/L 98-107 [facility] Sodium Level 143 meq/L 136-145 [facility] ([facility] Calcium Level 8.8 mg/dL 8.8-10.2 [facility] ([facility] Carbon Dioxide Level 26 meq/L 21-32 [facility] ([facility] Anion Gap 8 meq/L 8-16 [facility] ([facility] Alt/SGPT 17 U/L 12-78 [facility] ([facility] Bilirubin,Total 1.0 mg/dL 0.2-1.0 [facility] ([facility] Alkaline Phosphatase 78 U/L 45-117 [facility] ([facility] Ast/Sgot 11 U/L 7-37 [facility] ([facility] Albumin 3.2 GM/DL 3.2-5.2 [facility] ([facility] Total Protein 6.3 GM/DL 6.4-8.2 [facility] ([facility] Albumin/Globulin Ratio 1.03 1.00-1.93 [facility] ([facility] ID Date Data Source [id number] 11/17/2019 02:42:00 PM EDT [facility] ([facility] Name Value Range Interpretation Code Description Data Radhika rce(s) Supporting Document(s) Ware % 13.6 % 0.0-5.0 [facility] ([facility] Neutrophils % 80.9 % 36.0-66.0 [facility] ([facility] Lymph % 3.2 % 24.0-44.0 [facility] ([facility] Eos % 1.5 % 0.0-3.0 [facility] ([facility] Immature Granulocyte % 0.4 % 0-3.0 [facility] ([facility] Baso % 0.4 % 0.0-1.0 [facility] ([facility] Neutrophils # 3.8 10 1.5-8.5 [facility] Ware # 0.6 10 0.0-0.8 [facility] ([facility] Eos # 0.1 10 0.0-0.5 [facility] ([facility] Lymph # 0.2 10 1.5-5.0 [facility] Baso # 0.0 10 0.0-0.2 [facility] ([facility] ID Date Data Source [id number] 11/17/2019 02:42:00 PM EDT [facility] ([facility] Name Value Range Interpretation Code Description Data Radhika rce(s) Supporting Document(s) Hemoglobin 10.4 g/dL 12.0-15.5 [facility] ([facility] White Blood Count 4.7 10 4.0-10.0 [facility] ([facility]y [facility] Red Blood Count 3.68 10 4.00-5.40 [facility] ([facility] Hematocrit 32.6 % 36.0-47.0 [facility] ([facility] Mean Corpuscular Volume 88.6 fl 80.0-96.0 M [facility] ([facility] Mean Corpuscular Hemoglobin 28.3 pg 27.0-33.0 [facility] ([facility] Mean Corpuscular HGB Conc 31.9 g/dL 32.0-36.5 [facility] ([facility] Red Cell Distribution Width Laboratory test result 11.5-14.5 [facility] ([facility] Platelet Count, Automated 330 10 150-450 [facility] ([facility] Nucleated Red Blood Cell % 0.0 % 0-0 [facility] ([facility] ID Date Data Source [id number] 10/23/2019 11:09:00 AM EDT [facility] ([facility] Name Value Range Interpretation Code Description Data Radhika rce(s) Supporting Document(s) Urine Culture Laboratory test result [facility] ([facility] FULL REPORT IN LAB NOTES (e[facility] and [facility] ). NO GROWTH ID Date Data Source [id number] 10/23/2019 11:09:00 AM EDT [facility] ([facility] Name Value Range Interpretation Code Description Data Radhika rce(s) Supporting Document(s) Appearance, Urine Laboratory test result [facility] ([facility] Color, Urine Laboratory test result [facility] ([facility] Specific [place] Urine Auto 1.023 1.002-1.035 [facility] ([facility] PH,Urine 5.0 units 5.0-9.0 [facility] ([facility] Protein, Urine Auto Laboratory test result [facility] ([facility] Glucose, Urine (Ua) Auto Laboratory test result [facility] ([facility] Ketone, Urine Auto Laboratory test result [facility] ([facility] Urobilinogen, Urine Auto 2.0 mg/dL 0.0-2.0 [facility] ([facility] Nitrite, Urine Auto Laboratory test result [facility] ([facility] Bilirubin, Urine Auto Laboratory test result [facility] ([facility] Leukocyte Esterase, Urine Auto Laboratory test result [facility] ([facility] Blood, Urine Blood Laboratory test result [facility] ([facility] WBC, Urine Auto 2 /HPF 0-3 [facility] ([facility] RBC, Urine Auto 0 /HPF 0-3 [facility] Bacteria, Urine Auto Laboratory test result [facility] ([facility] Mucus, Urine Laboratory test result [facility] ([facility] Hyaline Cast, Urine Auto 8 /LPF 0-1 [facility] ([facility] Squamous Epithelial Cell Ur AU 0 /HPF 0-6 [facility] ([facility] ID Date Data Source [id number] 10/23/2019 10:18:00 AM EDT [facility] ([facility]hta [facility] Name Value Range Interpretation Code Description Data Radhika rce(s) Supporting Document(s) Ferritin [Mass/volume] in Serum or Plasma 6 ng/mL 8-252 [facility] ([facility] ID Date Data Source [id number] 10/23/2019 10:18:00 AM EDT [facility] ([facility] Name Value Range Interpretation Code Description Data Radhika rce(s) Supporting Document(s) Iron (Fe) 47 ug/dL 50-170 [facility] ([facility] Total Iron Binding Capacity 474 ug/dL 250-450 [facility] ([facility] Percent Saturation 9.9 % 13.2-45.0 [facility] ([facility]one [facility] ID Date Data Source [id number] 10/23/2019 10:18:00 AM EDT [facility] ([facility] Name Value Range Interpretation Code Description Data Radhika rce(s) Supporting Document(s) Glucose, Fasting 171 mg/dL 70-100 [facility] ([facility] Blood Urea Nitrogen 11 mg/dL 7-18 [facility] ([facility] Glomerular Filtration Rate Laboratory test result [facility] ([facility] <content>Units are mL/min/1.73 m2</content>
<content></content>
<content>Chronic Kidney Disease Staging per [facility]:</content>
<content></content>
<content>Stage I & II GFR >=60 Normal to Mildly Decreased</content>
<content>Stage III GFR 30- 59 Moderately Decreased</content>
<content>Stage IV GFR 15-29 Severely Decreased</content>
<content>Stage V GFR <15 Very Little GFR Left</content>
<content>ESRD GFR <15 on LOGISTICS ENGINEERING MANAGER</content>
<content></content> Sodium Level 139 meq/L 136-145 [facility] Creatinine For GFR 0.92 mg/dL 0.55-1.30 [facility] ([facility] Potassium Serum 4.3 meq/L 3.5-5.1 [facility] ([facility] Chloride Level 108 meq/L 98-107 [facility] ([facility] Carbon Dioxide Level 25 meq/L 21-32 [facility] ([facility] Anion Gap 6 meq/L 8-16 [facility] ([facility] Alt/SGPT 16 U/L 12-78 [facility] ([facility] Ast/Sgot 11 U/L 7-37 [facility] ([facility] Calcium Level 9.0 mg/dL 8.8-10.2 [facility] ([facility] Bilirubin,Total 0.7 mg/dL 0.2-1.0 [facility] ([facility] Alkaline Phosphatase 78 U/L 45-117 [facility] ([facility] Total Protein 7.4 GM/DL 6.4-8.2 [facility] ([facility] Albumin 3.6 GM/DL 3.2-5.2 [facility] ([facility] Albumin/Globulin Ratio 0.95 1.00-1.93 [facility] ([facility] ID Date Data Source [id number] 10/23/2019 10:18:00 AM EDT [facility] ([facility] Name Value Range Interpretation Code Description Data Radhika rce(s) Supporting Document(s) Neutrophils % 73.8 % 36.0-66.0 [facility] ([facility] Eos % 1.5 % 0.0-3.0 [facility] ([facility] Lymph % 14.0 % 24.0-44.0 [facility] ([facility] Ware % 10.0 % 0.0-5.0 [facility] ([facility] Immature Granulocyte % 0.2 % 0-3.0 [facility] ([facility] Baso % 0.5 % 0.0-1.0 [facility] ([facility] Neutrophils # 3.0 10 1.5-8.5 [facility] ([facility] Eos # 0.1 10 0.0-0.5 [facility] ([facility] Ware # 0.4 10 0.0-0.8 [facility] ([facility] Lymph # 0.6 10 1.5-5.0 [facility] ([facility] Baso # 0.0 10 0.0-0.2 [facility] ([facility] ID Date Data Source [id number] 10/23/2019 10:18:00 AM EDT [facility] ([facility] Name Value Range Interpretation Code Description Data Radhika rce(s) Supporting Document(s) White Blood Count 4.0 10 4.0-10.0 [facility] ([facility]y [facility] Hemoglobin 8.2 g/dL 12.0-15.5 [facility] ([facility] Red Blood Count 3.40 10 4.00-5.40 [facility] ([facility] Mean Corpuscular Volume 77.9 fl 80.0-96.0 M [facility] ([facility] Hematocrit 26.5 % 36.0-47.0 [facility] ([facility] Red Cell Distribution Width 16.7 % 11.5-14.5 [facility] ([facility] Mean Corpuscular Hemoglobin 24.1 pg 27.0-33.0 [facility] ([facility] Mean Corpuscular HGB Conc 30.9 g/dL 32.0-36.5 [facility] ([facility] Platelet Count, Automated 414 10 150-450 [facility] ([facility] Nucleated Red Blood Cell % 0.0 % 0-0 [facility] ([facility] ID Date Data Source [id number] 09/08/2019 03:19:00 PM EST [facility] ([facility] Name Value Range Interpretation Code Description Data Radhika rce(s) Supporting Document(s) Carcinoembryonic Ag [Mass/volume] in Serum or Plasma 0.8 ng/mL [facility] ([facility] THE CEA ASSAY IS PERFORMED ON THE [employer] BY CHEMILUMINESCENCE AND SHOULD NOT BE COMPARED INTERCHANGEABLY WITH OTHER METHODS. IT SHOULD NOT BE USED ALONE A SCREENING TEST OR DIAGNOSIS FOR THE PRESENCE OR ABSENCE OF MALIGNANT DISEASE. PREDICTIONS OF DISEASE RECURRENCE SHOULD NOT BE BASED SOLELY ON VALUES OBTAINED FROM SERIAL PATIENT SERUM VALUES. ID Date Data Source [id number] 09/08/2019 03:19:00 PM EST [facility] ([facility] Name Value Range Interpretation Code Description Data Radhika rce(s) Supporting Document(s) Blood Urea Nitrogen 12 mg/dL 7-18 [facility] ([facility] Glucose, Fasting 146 mg/dL 70-100 [facility] Glomerular Filtration Rate 59.7 [facility] ([facility] <content>Units are mL/min/1.73 m2</content>
<content></content>
<content>Chronic Kidney Disease Staging per [facility]:</content>
<content></content>
<content>Stage I & II GFR >=60 Normal to Mildly Decreased</content>
<content>Stage III GFR 30- 59 Moderately Decreased</content>
<content>Stage IV GFR 15-29 Severely Decreased</content>
<content>Stage V GFR <15 Very Little GFR Left</content>
<content>ESRD GFR <15 on LOGISTICS ENGINEERING MANAGER</content>
<content></content> Creatinine For GFR 0.96 mg/dL 0.55-1.30 [facility] ([facility] Potassium Serum 4.0 meq/L 3.5-5.1 [facility] ([facility] Sodium Level 141 meq/L 136-145 [facility] Chloride Level 111 meq/L 98-107 [facility] Anion Gap 4 meq/L 8-16 [facility] ([facility] Carbon Dioxide Level 26 meq/L 21-32 [facility] ([facility]ivas [facility] Ast/Sgot 11 U/L 7-37 [facility] ([facility] Calcium Level 9.1 mg/dL 8.8-10.2 [facility] ([facility] Alkaline Phosphatase 83 U/L 45-117 [facility] ([facility] Alt/SGPT 14 U/L 12-78 [facility] ([facility] Total Protein 7.0 GM/DL 6.4-8.2 [facility] ([facility] Bilirubin,Total 0.4 mg/dL 0.2-1.0 [facility] ([facility] Albumin 3.5 GM/DL 3.2-5.2 [facility] ([facility] Albumin/Globulin Ratio 1.00 1.00-1.93 [facility] ([facility] ID Date Data Source [id number] 09/08/2019 03:19:00 PM EST [facility] ([facility] Name Value Range Interpretation Code Description Data Radhika rce(s) Supporting Document(s) Lymph % 22.6 % 24.0-44.0 [facility] ([facility] Neutrophils % 61.5 % 36.0-66.0 [facility] ([facility] Eos % 3.3 % 0.0-3.0 [facility] ([facility] Baso % 0.6 % 0.0-1.0 [facility] ([facility] Ware % 11.8 % 0.0-5.0 [facility] ([facility] Neutrophils # 3.1 10 1.5-8.5 [facility] ([facility] Lymph # 1.2 10 1.5-5.0 [facility] ([facility] Immature Granulocyte % 0.2 % 0-3.0 [facility] ([facility] Baso # 0.0 10 0.0-0.2 [facility] ([facility] Ware # 0.6 10 0.0-0.8 [facility] ([facility] Eos # 0.2 10 0.0-0.5 [facility] ([facility] ID Date Data Source [id number] 09/08/2019 03:19:00 PM EST [facility] ([facility] Name Value Range Interpretation Code Description Data Radhika rce(s) Supporting Document(s) White Blood Count 5.1 10 4.0-10.0 [facility] ([facility] Red Blood Count 3.42 10 4.00-5.40 [facility] ([facility] Hemoglobin 9.0 g/dL 12.0-15.5 [facility] ([facility] Mean Corpuscular Hemoglobin 26.3 pg 27.0-33.0 [facility] ([facility] Hematocrit 29.4 % 36.0-47.0 [facility] ([facility] Mean Corpuscular Volume 86.0 fl 80.0-96.0 M [facility] ([facility] Platelet Count, Automated 322 10 150-450 [facility] Red Cell Distribution Width 15.6 % 11.5-14.5 [facility] ([facility] Mean Corpuscular HGB Conc 30.6 g/dL 32.0-36.5 [facility] ([facility] Nucleated Red Blood Cell % 0.0 % 0-0 [facility] ID Date Data Source [id number] 08/24/2019 03:48:00 PM EST [facility] ([facility] Name Value Range Interpretation Code Description Data Radhika rce(s) Supporting Document(s) Carcinoembryonic Ag [Mass/volume] in Serum or Plasma 0.6 ng/mL [facility] ([facility] THE CEA ASSAY IS PERFORMED ON THE [employer] BY CHEMILUMINESCENCE AND SHOULD NOT BE COMPARED INTERCHANGEABLY WITH OTHER METHODS. IT SHOULD NOT BE USED ALONE A SCREENING TEST OR DIAGNOSIS FOR THE PRESENCE OR ABSENCE OF MALIGNANT DISEASE. PREDICTIONS OF DISEASE RECURRENCE SHOULD NOT BE BASED SOLELY ON VALUES OBTAINED FROM SERIAL PATIENT SERUM VALUES. ID Date Data Source [id number] 08/14/2019 12:46:00 PM EST [facility] ([facility] Name Value Range Interpretation Code Description Data Radhika rce(s) Supporting Document(s) Sodium [Moles/volume] in Serum or Plasma 141 mmol/L 134-144 [facility] A courtesy copy of this report has been sent to the patient, Potassium [Moles/volume] in Serum or Plasma 4.5 mmol/L 3.5-5.2 [facility] A courtesy copy of this report has been sent to the patient, Chloride [Moles/volume] in Serum or Plasma 106 mmol/L 96-106 [facility] A courtesy copy of this report has been sent to the patient, Glucose [Mass/volume] in Serum or Plasma 94 mg/dL 65-99 [facility] A courtesy copy of this report has been sent to the patient, Albumin [Mass/volume] in Serum or Plasma 4.1 g/dL 3.7-4.7 [facility] ([facility] Please note reference interval change* * Urea nitrogen [Mass/volume] in Serum or Plasma 11 mg/dL 8-27 [facility] A courtesy copy of this report has been sent to the patient, Creatinine [Mass/volume] in Serum or Plasma 0.71 mg/dL 0.57-1.00 [facility] ([facility] A courtesy copy of this report has been sent to the patient, eGFR If NonAfricn Am 81 mL/min/1.73 [facility] A courtesy copy of this report has been sent to the patient, eGFR If Africn Am 94 mL/min/1.73 [facility] ([facility] A courtesy copy of this report has been sent to the patient, Urea nitrogen/Creatinine [Mass Ratio] in Serum or Plasma 15 1 2-28 [facility] ([facility] A courtesy copy of this report has been sent to the patient, Carbon dioxide, total [Moles/volume] in Serum or Plasma 22 mmol/L 20 -29 [facility] ([facility] A courtesy copy of this report has been sent to the patient, Calcium [Mass/volume] in Serum or Plasma 9.3 mg/dL 8.7-10.3 [facility] ([facility] A courtesy copy of this report has been sent to the patient, Protein, Total 6.2 g/dL 6.0-8.5 [facility] ([facility] A courtesy copy of this report has been sent to the patient, Globulin [Mass/volume] in Serum by calculation 2.1 g/dL 1.5-4.5 [facility] ([facility] A courtesy copy of this report has been sent to the patient, Albumin/Globulin [Mass Ratio] in Serum or Plasma 2.0 1.2-2.2 [facility] ([facility] A courtesy copy of this report has been sent to the patient, Bilirubin.total [Mass/volume] in Serum or Plasma 0.6 mg/dL 0.0-1.2 [facility] ([facility] A courtesy copy of this report has been sent to the patient, Alkaline phosphatase [Enzymatic activity/volume] in Serum or Plasma 71 IU/L 39-117 [facility] A courtesy copy of this report has been sent to the patient, Aspartate aminotransferase [Enzymatic activity/volume] in Serum or Plasma 14 IU/L 0-40 [facility] ([facility] A courtesy copy of this report has been sent to the patient, Alanine aminotransferase [Enzymatic activity/volume] in Seru m or Plasma 9 IU/L 0-32 [facility] ([facility] A courtesy copy of this report has been sent to the patient, ID Date Data Source [id number] 08/14/2019 12:46:00 PM EST [facility] ([facility] Name Value Range Interpretation Code Description Data Radhika rce(s) Supporting Document(s) Iron binding capacity [Mass/volume] in Serum or Plasma 420 ug/dL 250 -450 [facility] ([facility] A courtesy copy of this report has been sent to the patient, Iron binding capacity.unsaturated [Mass/volume] in Serum or Plasma 392 ug/dL 118-369 [facility] A courtesy copy of this report has been sent to the patient, Iron [Mass/volume] in Serum or Plasma 28 ug/dL 27-139 [facility] A courtesy copy of this report has been sent to the patient, Iron saturation [Mass Fraction] in Serum or Plasma 7 % 15-55 Below lower panic limits [facility] ([facility] A courtesy copy of this report has been sent to the patient, ID Date Data Source [id number] 08/14/2019 12:46:00 PM EST [facility] ([facility] Name Value Range Interpretation Code Description Data Radhika rce(s) Supporting Document(s) Leukocytes [#/volume] in Blood by Automated count 5.5 x10E3/uL 3.4-10 .8 [facility] ([facility] A courtesy copy of this report has been sent to the patient, Erythrocytes [#/volume] in Blood by Automated count 3.62 x10E6/uL 3.7 7-5.28 [facility] ([facility] A courtesy copy of this report has been sent to the patient, Hemoglobin [Mass/volume] in Blood 9.8 g/dL 11.1-15.9 [facility] ([facility] A courtesy copy of this report has been sent to the patient, Hematocrit [Volume Fraction] of Blood by Automated count 31.5 % 3 4.0-46.6 [facility] A courtesy copy of this report has been sent to the patient, Erythrocyte mean corpuscular volume [Entitic volume] by Auto mated count 87 fL 79-97 [facility] A courtesy copy of this report has been sent to the patient, Erythrocyte mean corpuscular hemoglobin [Entitic mass] by Automated count 27.1 pg 26.6-33.0 [facility] ([facility] A courtesy copy of this report has been sent to the patient, Erythrocyte mean corpuscular hemoglobin concentration [Mass/volume] by Automated count 31.1 g/dL 31.5-35.7 [facility] ([facility] A courtesy copy of this report has been sent to the patient, Erythrocyte distribution width [Ratio] by Automated count 15.9 % 11.7-15.4 [facility] A courtesy copy of this report has been sent to the patient, Platelets [#/volume] in Blood by Automated count 409 x10E3/uL 150-450 [facility] A courtesy copy of this report has been sent to the patient, Neutrophils 66 % [facility] ([facility]gan [facility] A courtesy copy of this report has been sent to the patient, Lymphocytes/100 leukocytes in Blood by Automated count 17 % [facility] A courtesy copy of this report has been sent to the patient, Monocytes/100 leukocytes in Blood by Automated count 14 % [facility] A courtesy copy of this report has been sent to the patient, Eosinophils/100 leukocytes in Blood by Automated count 2 % [facility] A courtesy copy of this report has been sent to the patient, Immature cells [#/volume] in Blood Laboratory test result [facility] ([facility] A courtesy copy of this report has been sent to the patient, Basophils/100 leukocytes in Blood by Automated count 1 % [facility] A courtesy copy of this report has been sent to the patient, Neutrophils [#/volume] in Blood by Automated count 3.7 x10E3/uL 1.4-7 .0 [facility] A courtesy copy of this report has been sent to the patient, Lymphocytes [#/volume] in Blood 0.9 x10E3/uL 0.7-3.1 [facility] ([facility] A courtesy copy of this report has been sent to the patient, Monocytes [#/volume] in Blood 0.8 x10E3/uL 0.1-0.9 [facility] ([facility] A courtesy copy of this report has been sent to the patient, Basophils [#/volume] in Blood by Automated count 0.0 x10E3/uL 0.0-0.2 [facility] ([facility] A courtesy copy of this report has been sent to the patient, Eosinophils [#/volume] in Blood by Automated count 0.1 x10E3/uL 0.0-0 .4 [facility] A courtesy copy of this report has been sent to the patient, Immature granulocytes/100 leukocytes in Blood by Automated count 0 % [facility] A courtesy copy of this report has been sent to the patient, Immature granulocytes [#/volume] in Blood by Automated count 0.0 x10E3/uL 0.0-0.1 [facility] ([facility] A courtesy copy of this report has been sent to the patient, Morphology [Interpretation] in Blood Narrative Laboratory test result [facility] A courtesy copy of this report has been sent to the patient, Nucleated erythrocytes/100 leukocytes [Ratio] in Blood by Automated count Laboratory test result [facility] ([facility] A courtesy copy of this report has been sent to the patient, ID Date Data Source [id number] 08/15/2019 07:05:00 AM EST [facility] Name Value Range Interpretation Code Description Data Radhika rce(s) Supporting Document(s) WBC 5.5 x10E3/uL 3.4-10.8 [facility] RBC 3.62 x10E6/uL 3.77-5.28 Below low normal [facility] Hemoglobin 9.8 g/dL 11.1-15.9 Below low normal [facility] Hematocrit 31.5 % 34.0-46.6 Below low normal [facility] MCV 87 fL 79-97 [facility] MCH 27.1 pg 26.6-33.0 [facility] MCHC 31.1 g/dL 31.5-35.7 Below low normal [facility] RDW 15.9 % 11.7-15.4 Above high normal [facility] Platelets 409 x10E3/uL 150-450 [facility] Neutrophils 66 % Not Estab. [facility] Lymphs 17 % Not Estab. [facility] Monocytes 14 % Not Estab. [facility] Eos 2 % Not Estab. [facility] Basos 1 % Not Estab. [facility] Neutrophils (Absolute) 3.7 x10E3/uL 1.4-7.0 [facility]p Lymphs (Absolute) 0.9 x10E3/uL 0.7-3.1 [facility] Monocytes(Absolute) 0.8 x10E3/uL 0.1-0.9 [facility] Eos (Absolute) 0.1 x10E3/uL 0.0-0.4 [facility] Baso (Absolute) 0.0 x10E3/uL 0.0-0.2 [facility] Immature Granulocytes 0 % Not Estab. [facility] Immature Grans (Abs) 0.0 x10E3/uL 0.0-0.1 [facility] ID Date Data Source [id number] 08/15/2019 08:07:00 AM EST [facility] Name Value Range Interpretation Code Description Data Radhika rce(s) Supporting Document(s) Glucose 94 mg/dL 65-99 [facility] BUN 11 mg/dL 8-27 [facility] Creatinine 0.71 mg/dL 0.57-1.00 [facility] eGFR If NonAfricn Am 81 mL/min/1.73 >59 [facility] eGFR If Africn Am 94 mL/min/1.73 >59 [facility] BUN/Creatinine Ratio 15 12-28 [facility] Sodium 141 mmol/L 134-144 [facility] Potassium 4.5 mmol/L 3.5-5.2 [facility] Chloride 106 mmol/L 96-106 [facility] Carbon Dioxide, Total 22 mmol/L 20-29 [facility] Calcium 9.3 mg/dL 8.7-10.3 [facility] Protein, Total 6.2 g/dL 6.0-8.5 [facility] Albumin 4.1 g/dL 3.7-4.7 [facility] Please no te reference interval change Globulin, Total 2.1 g/dL 1.5-4.5 [facility] A/G Ratio 2.0 1.2-2.2 [facility] Bilirubin, Total 0.6 mg/dL 0.0-1.2 [facility] Alkaline Phosphatase 71 IU/L 39-117 [facility] AST (SGOT) 14 IU/L 0-40 [facility] ALT (SGPT) 9 IU/L 0-32 [facility] ID Date Data Source [id number] 08/15/2019 08:07:00 AM EST [facility] Name Value Range Interpretation Code Description Data Radhika rce(s) Supporting Document(s) Iron Bind.Cap.(TIBC) 420 ug/dL 250-450 [facility] UIBC 392 ug/dL 118-369 Above high normal [facility] Iron 28 ug/dL 27-139 [facility] Iron Saturation 7 % 15-55 Below lower panic limits [facility] ID Date Data Source [id number] 08/06/2019 11:44:00 AM EST [facility] Name Value Range Interpretation Code Description Data Radhika rce(s) Supporting Document(s) Packed Cells Laboratory test result [facility] TRANSFUSED PRODUCT: PACKED CELLS COUNT: 1 ID Date Data Source [id number] 08/06/2019 11:44:00 AM EST [facility] Name Value Range Interpretation Code Description Data Radhika rce(s) Supporting Document(s) Ferritin [Mass/volume] in Serum or Plasma 4 ng/mL 8-252 [facility] ID Date Data Source [id number] 08/06/2019 11:44:00 AM EST [facility] Name Value Range Interpretation Code Description Data Radhika rce(s) Supporting Document(s) Iron (Fe) 8 ug/dL 50-170 [facility] Percent Saturation 1.7 % 13.2-45.0 [facility] Total Iron Binding Capacity 480 ug/dL 250-450 [facility] ID Date Data Source [id number] 08/06/2019 11:44:00 AM EST [facility] Name Value Range Interpretation Code Description Data Radhika rce(s) Supporting Document(s) Blood Type Laboratory test result [facility] AB Screen (Indirect Farooq)Vis Laboratory test result [facility] ID Date Data Source [id number] 08/06/2019 11:44:00 AM EST [facility] Name Value Range Interpretation Code Description Data Radhika rce(s) Supporting Document(s) Glucose, Fasting 144 mg/dL 70-100 [facility] Blood Urea Nitrogen 18 mg/dL 7-18 [facility] Sodium Level 142 meq/L 136-145 [facility] Creatinine For GFR 0.84 mg/dL 0.55-1.30 [facility] Glomerular Filtration Rate Laboratory test result [facility] <content>Units are mL/min/1.73 m2</content>
<content></content>
<content>Chronic Kidney Disease Staging per NK[facility]:</content>
<content></content>
<content>Stage I & II GFR >=60 Normal to Mildly Decreased</content>
<content>Stage III GFR 30- 59 Moderately Decreased</content>
<content>Stage IV GFR 15-29 Severely Decreased</content>
<content>Stage V GFR <15 Very Little GFR Left</content>
<content>ESRD GFR <15 on [employer]ISTICS [employer]INEER[employer] MANAGER</content>
<content></content> Potassium Serum 3.8 meq/L 3.5-5.1 [facility] Carbon Dioxide Level 21 meq/L 21-32 [facility] ([facility] Chloride Level 111 meq/L 98-107 [facility] Anion Gap 10 meq/L 8-16 [facility] Calcium Level 8.5 mg/dL 8.8-10.2 [facility] ID Date Data Source [id number] 08/06/2019 11:44:00 AM EST [facility] Name Value Range Interpretation Code Description Data Radhika rce(s) Supporting Document(s) Red Blood Count 1.80 10 4.00-5.40 [facility] White Blood Count 7.5 10 4.0-10.0 [facility] ([facility] Hemoglobin 4.7 g/dL 12.0-15.5 Below lower panic limits [facility] Mean Corpuscular Hemoglobin 26.1 pg 27.0-33.0 [facility] Hematocrit 15.4 % 36.0-47.0 [facility] Mean Corpuscular Volume 85.6 fl 80.0-96.0 [facility] Mean Corpuscular HGB Conc 30.5 g/dL 32.0-36.5 [facility] Red Cell Distribution Width 15.6 % 11.5-14.5 [facility] Platelet Count, Automated 397 10 150-450 [facility] Neutrophils % 76.4 % 36.0-66.0 [facility] Ware % 10.0 % 0.0-5.0 [facility] Lymph % 12.5 % 24.0-44.0 [facility] Immature Granulocyte % 0.3 % 0-3.0 [facility] Eos % 0.4 % 0.0-3.0 [facility] Baso % 0.4 % 0.0-1.0 [facility] Nucleated Red Blood Cell % 0.0 % 0-0 [facility] Neutrophils # 5.7 10 1.5-8.5 [facility] Lymph # 0.9 10 1.5-5.0 [facility] Ware # 0.8 10 0.0-0.8 [facility] Baso # 0.0 10 0.0-0.2 [facility] Eos # 0.0 10 0.0-0.5 [facility] ID Date Data Source [id number] 08/04/2019 11:03:00 AM EST [facility] Name Value Range Interpretation Code Description Data Radhika rce(s) Supporting Document(s) Glucose [Mass/volume] in Serum or Plasma 177 mg/dL 65-99 [facility] Urea nitrogen [Mass/volume] in Serum or Plasma 22 mg/dL 8-27 [facility] Creatinine [Mass/volume] in Serum or Plasma 0.90 mg/dL 0.57-1.00 [facility] eGFR If NonAfricn Am 61 mL/min/1.73 [facility] eGFR If Africn Am 70 mL/min/1.73 [facility] Chloride [Moles/volume] in Serum or Plasma 107 mmol/L 96-106 [facility] Sodium [Moles/volume] in Serum or Plasma 140 mmol/L 134-144 [facility] Urea nitrogen/Creatinine [Mass Ratio] in Serum or Plasma 24 1 2-28 [facility] Potassium [Moles/volume] in Serum or Plasma 5.3 mmol/L 3.5-5.2 [facility] Protein, Total 6.3 g/dL 6.0-8.5 [facility] Carbon dioxide, total [Moles/volume] in Serum or Plasma 18 mmol/L 20 -29 [facility] Calcium [Mass/volume] in Serum or Plasma 9.2 mg/dL 8.7-10.3 [facility] Albumin/Globulin [Mass Ratio] in Serum or Plasma 1.7 1.2-2.2 [facility] Globulin [Mass/volume] in Serum by calculation 2.3 g/dL 1.5-4.5 [facility] Albumin [Mass/volume] in Serum or Plasma 4.0 g/dL 3.7-4.7 [facility] Please note reference interval change* * Bilirubin.total [Mass/volume] in Serum or Plasma 0.3 mg/dL 0.0-1.2 [facility] Alkaline phosphatase [Enzymatic activity/volume] in Serum or Plasma 60 IU/L 39-117 [facility] Aspartate aminotransferase [Enzymatic activity/volume] in Serum or Plasma 12 IU/L 0-40 [facility] Alanine aminotransferase [Enzymatic activity/volume] in Seru m or Plasma 9 IU/L 0-32 [facility] ID Date Data Source [id number] 08/04/2019 11:03:00 AM EST [facility] Name Value Range Interpretation Code Description Data Radhika rce(s) Supporting Document(s) Leukocytes [#/volume] in Blood by Automated count 9.6 x10E3/uL 3.4-10 .8 [facility] Erythrocytes [#/volume] in Blood by Automated count 2.26 x10E6/u L 3.77-5.28 Below lower panic limits [facility] Hemoglobin [Mass/volume] in Blood 5.8 g/dL 11.1-15.9 Below absolute low-off instrument scale [facility] Verified by repeat analysis Erythrocyte mean corpuscular hemoglobin concentration [Mass/volume] by Automated count 31.2 g/dL 31.5-35.7 [facility] Erythrocyte mean corpuscular volume [Entitic volume] by Auto mated count 82 fL 79-97 [facility] Hematocrit [Volume Fraction] of Blood by Automated count 18.6 % 3 4.0-46.6 [facility] Erythrocyte mean corpuscular hemoglobin [Entitic mass] by Automated count 25.7 pg 26.6-33.0 [facility] Platelets [#/volume] in Blood by Automated count 482 x10E3/uL 150-450 [facility] Erythrocyte distribution width [Ratio] by Automated count 15.9 % 11.7-15.4 [facility] Neutrophils 79 % [facility] Lymphocytes/100 leukocytes in Blood by Automated count 11 % [facility] Monocytes/100 leukocytes in Blood by Automated count 10 % [facility] Eosinophils/100 leukocytes in Blood by Automated count 0 % [facility] Neutrophils [#/volume] in Blood by Automated count 7.6 x10E3/uL 1.4-7 .0 [facility] Immature cells [#/volume] in Blood Laboratory test result [facility] Basophils/100 leukocytes in Blood by Automated count 0 % [facility] Monocytes [#/volume] in Blood 0.9 x10E3/uL 0.1-0.9 [facility] Basophils [#/volume] in Blood by Automated count 0.0 x10E3/uL 0.0-0.2 [facility] Eosinophils [#/volume] in Blood by Automated count 0.0 x10E3/uL 0.0-0 .4 [facility] Lymphocytes [#/volume] in Blood 1.0 x10E3/uL 0.7-3.1 [facility] Nucleated erythrocytes/100 leukocytes [Ratio] in Blood by Automated count Laboratory test result [facility] ([facility] Immature granulocytes/100 leukocytes in Blood by Automated count 0 % [facility] Immature granulocytes [#/volume] in Blood by Automated count 0.0 x10E3/uL 0.0-0.1 [facility] Morphology [Interpretation] in Blood Narrative Laboratory test result [facility] ID Date Data Source [id number] 08/05/2019 08:07:00 AM EST [facility] Name Value Range Interpretation Code Description Data Radhika rce(s) Supporting Document(s) WBC 9.6 x10E3/uL 3.4-10.8 [facility] RBC 2.26 x10E6/uL 3.77-5.28 Below lower panic limits L [facility] Hemoglobin 5.8 g/dL 11.1-15.9 Below absolute low-off instrument scale [facility] Verified by repeat analysis Hematocrit 18.6 % 34.0-46.6 Below low normal [facility] MCV 82 fL 79-97 [facility] MCH 25.7 pg 26.6-33.0 Below low normal [facility] MCHC 31.2 g/dL 31.5-35.7 Below low normal [facility] RDW 15.9 % 11.7-15.4 Above high normal [facility] Platelets 482 x10E3/uL 150-450 Above high normal [facility] Neutrophils 79 % Not Estab. [facility] Lymphs 11 % Not Estab. [facility] Monocytes 10 % Not Estab. [facility] Eos 0 % Not Estab. [facility] Basos 0 % Not Estab. [facility] Neutrophils (Absolute) 7.6 x10E3/uL 1.4-7.0 Above high normal [facility] Lymphs (Absolute) 1.0 x10E3/uL 0.7-3.1 [facility] Monocytes(Absolute) 0.9 x10E3/uL 0.1-0.9 [facility] Eos (Absolute) 0.0 x10E3/uL 0.0-0.4 [facility] Baso (Absolute) 0.0 x10E3/uL 0.0-0.2 [facility] Immature Granulocytes 0 % Not Estab. [facility] Immature Grans (Abs) 0.0 x10E3/uL 0.0-0.1 [facility] ID Date Data Source [id number] 08/05/2019 08:07:00 AM EST [facility] Name Value Range Interpretation Code Description Data Radhika rce(s) Supporting Document(s) Glucose 177 mg/dL 65-99 Above high normal [facility] BUN 22 mg/dL 8-27 [facility] Creatinine 0.90 mg/dL 0.57-1.00 [facility] eGFR If NonAfricn Am 61 mL/min/1.73 >59 [facility] eGFR If Africn Am 70 mL/min/1.73 >59 [facility] BUN/Creatinine Ratio 24 12-28 [facility] Sodium 140 mmol/L 134-144 [facility] Potassium 5.3 mmol/L 3.5-5.2 Above high normal [facility] Chloride 107 mmol/L 96-106 Above high normal [facility] Carbon Dioxide, Total 18 mmol/L 20-29 Below low normal L [facility] Calcium 9.2 mg/dL 8.7-10.3 [facility] Protein, Total 6.3 g/dL 6.0-8.5 [facility] Albumin 4.0 g/dL 3.7-4.7 [facility] Please no te reference interval change Globulin, Total 2.3 g/dL 1.5-4.5 [facility] A/G Ratio 1.7 1.2-2.2 [facility] Bilirubin, Total 0.3 mg/dL 0.0-1.2 [facility] Alkaline Phosphatase 60 IU/L 39-117 [facility] AST (SGOT) 12 IU/L 0-40 [facility] ALT (SGPT) 9 IU/L 0-32 [facility] Procedure Social History Code Duration Value Status Description Data Source(s ) Alcohol intake 06/23/2020 12:00:00 AM EST Never completed [facility] Smoking 06/23/2020 12:00:00 AM EST Never smoker completed Never s moker [facility] Smoking 06/16/2020 12:00:00 AM EST Never Smoked A Pipe complet ed Never Smoked A Pipe [facility] Vital Signs ID Date Data Source UNK Name Value Range Interpretation Code Description Data Source(s) Diastolic blood pressure 70 mm[Hg] 70 mm[Hg] [facility] Systolic blood pressure 130 mm[Hg] 130 mm[Hg] [facility] Oxygen saturation in Arterial blood by Pulse oximetry 98 % 98 % [facility] Body mass index (BMI) [Ratio] 22.30 kg/m2 22.30 kg/m2 [facility] Body weight 53.524 kg 53.524 kg [facility] Body height 154.9 cm 154.9 cm [facility] Heart rate 68 /min 68 /min [facility] Body mass index (BMI) [Ratio] 22.0 kg/m2 22.0 k g/m2 [facility] [place] body weight 105 [lb_av] 105 [lb_av] [facility] ([facility] Oxygen saturation in Arterial blood by Pulse oximetry 97 % 97 % [facility] Body weight 118.50 [lb_av] 118.50 [lb_av] [facility] Body height 61.5 [in_i] 61.5 [in_i] [facility] 5'1.50" Respiratory rate 12 /min 12 /min [facility] ( [facility] Body temperature 96.5 [degF] 96.5 [degF] [facility] Heart rate 71 /min 71 /min [facility] Diastolic blood pressure 78 mm[Hg] 78 mm[Hg] [facility] Systolic blood pressure 138 mm[Hg] 138 mm[Hg] [facility] Diastolic blood pressure 79 mm[Hg] 79 mm[Hg] [facility] Systolic blood pressure 151 mm[Hg] 151 mm[Hg] [facility] Body mass index (BMI) [Ratio] 22.7 kg/m2 22.7 k g/m2 [facility] [place] body weight 105 [lb_av] 105 [lb_av] [facility] Oxygen saturation in Arterial blood by Pulse oximetry 98 % 98 % [facility] Body weight 122.38 [lb_av] 122.38 [lb_av] [facility] Body height 61.5 [in_i] 61.5 [in_i] [facility] 5'1.50" Respiratory rate 18 /min 18 /min [facility] ( [facility] Body temperature 97.8 [degF] 97.8 [degF] [facility] Heart rate 79 /min 79 /min [facility] Diastolic blood pressure 90 mm[Hg] 90 mm[Hg] [facility] Systolic blood pressure 138 mm[Hg] 138 mm[Hg] [facility] Body mass index (BMI) [Ratio] 21.6 kg/m2 21.6 k g/m2 [facility] [place] body weight 105 [lb_av] 105 [lb_av] [facility] Oxygen saturation in Arterial blood by Pulse oximetry 94 % 94 % [facility] Body weight 116.38 [lb_av] 116.38 [lb_av] [facility] Body height 61.5 [in_i] 61.5 [in_i] [facility] 5'1.50" Respiratory rate 18 /min 18 /min [facility] ( [facility] Body temperature 98.2 [degF] 98.2 [degF] [facility] Heart rate 62 /min 62 /min [facility] Diastolic blood pressure 60 mm[Hg] 60 mm[Hg] [facility] Systolic blood pressure 96 mm[Hg] 96 mm[Hg] [facility] Body mass index (BMI) [Ratio] 22.6 kg/m2 22.6 k g/m2 [facility] Oxygen saturation in Arterial blood by Pulse oximetry 97 % 97 % [facility] Body weight 121.38 [lb_av] 121.38 [lb_av] [facility] Body height 61.5 [in_i] 61.5 [in_i] [facility] 5'1.50" Respiratory rate 18 /min 18 /min [facility] ( [facility] Body temperature 99.0 [degF] 99.0 [degF] [facility] Heart rate 75 /min 75 /min [facility] Diastolic blood pressure 80 mm[Hg] 80 mm[Hg] [facility] Systolic blood pressure 138 mm[Hg] 138 mm[Hg] [facility] Diastolic blood pressure 82 mm[Hg] 82 mm[Hg] [facility] Systolic blood pressure 142 mm[Hg] 142 mm[Hg] [facility] Body weight 58.061 kg 58.061 kg [facility] ([facility], ) Body mass index (BMI) [Ratio] 23.8 kg/m2 23.8 k g/m2 [facility] ([facility]) Body weight 128.00 [lb_av] 128.00 [lb_av] [facility] ([facility]) Body height 61.5 [in_i] 61.5 [in_i] [facility] ([facility], ) 5'1.50" Diastolic blood pressure 64 mm[Hg] 64 mm[Hg] [facility] ([facility]) Systolic blood pressure 118 mm[Hg] 118 mm[Hg] [facility] ([facility]) Body mass index (BMI) [Ratio] 24.6 kg/m2 24.6 k g/m2 [facility] Oxygen saturation in Arterial blood by Pulse oximetry 98 % 98 % [facility] Body weight 132.50 [lb_av] 132.50 [lb_av] [facility] ([facility] Body height 61.5 [in_i] 61.5 [in_i] [facility] 5'1.50" Respiratory rate 16 /min 16 /min [facility] ( [facility] Body temperature 99.6 [degF] 99.6 [degF] [facility] Heart rate 88 /min 88 /min [facility] Diastolic blood pressure 75 mm[Hg] 75 mm[Hg] [facility] Systolic blood pressure 136 mm[Hg] 136 mm[Hg] [facility] ([facility] Body mass index (BMI) [Ratio] 24.6 kg/m2 24.6 k g/m2 [facility] Oxygen saturation in Arterial blood by Pulse oximetry 99 % 99 % [facility] Body weight 132.25 [lb_av] 132.25 [lb_av] [facility] ([facility] Body height 61.5 [in_i] 61.5 [in_i] [facility] 5'1.50" Respiratory rate 22 /min 22 /min [facility] ( [facility] Body temperature 97.4 [degF] 97.4 [degF] [facility] Heart rate 100 /min 100 /min [facility] Diastolic blood pressure 58 mm[Hg] 58 mm[Hg] [facility] Systolic blood pressure 125 mm[Hg] 125 mm[Hg] [facility] Patient Treatment Plan of Care Planned Activity Planned Date Details Description Data Source (s) Lancets (ONETOUCH DELICA PLUS [id number]) [facility] 06/05/2020 12:00:00 A M EST [facility] ONETOUCH ULTRA test strip 04/30/2020 12:00:00 AM EDT [facility] potassium chloride SA (K-[id number]) 20 MEQ tablet 020 12:00:00 AM EDT [facility] Furosemide 20 MG Oral Tablet 03/24/2020 12:00:00 AM EDT [facility] 24 HR metoprolol succinate 50 MG Extended Release Oral Tablet 03/07/2020 12:00:00 AM EDT [facility] 24 HR Diltiazem Hydrochloride 240 MG Extended Release Oral Capsule 03/07/2020 12:00:00 AM EDT [facility] apixaban 2.5 MG Oral Tablet 02/23/2020 12:00:00 AM EDT [facility] Digoxin 0.125 MG Oral Tablet 02/23/2020 12:00:00 AM EDT [facility] Pantoprazole Sodium 40 MG 02/11/2020 01[facility]00[facility] Eliquis 2.5 MG 02/11/2020 01:00:00 AM EDT [facility] ([facility]) DilTIAZem CD 240 MG 02/11/2020 01:[facility] Metoprolol Succinate ER 50 MG 02/11/2020 01:00:00 AM [facility] Digoxin 250 MCG 02/11/2020 01:00:00 AM EDT [facility] ([facility]) Acetaminophen ER 650 MG 02/11/2020 01:00:00 AM [facility] Citracal + D 250-200 MG-UNIT 02/11/2020 01:00:00 AM [facility] Glimepiride 1 MG 02/11/2020 01:00:00 AM [facility] MetFORMIN HCl 500 MG 02/11/2020 01:00:00 AM [facility] Atorvastatin Calcium 20 MG 02/11/2020 01:00:00 AM EDT [facility] Zaditor 0.025 % 02/11/2020 01:00:00 AM ED[facility] Ketotifen 0.25 MG/ML Ophthalmic Solution [facility] pantoprazole 40 MG Delayed Release Oral Tablet [facility]
[2020-09-06] MEDS ORDERED: NS 1,000 ML IV SCH (10:26)
[2020-09-06] MEDS ORDERED: DILT240C82 PO (10:33)
[2020-09-06] MEDS ORDERED: CITRTAB18 PO (10:33)
--- OUTSIDE RECORDS SUMMARY | 2020-09-06 10:54 | CCD ---
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 Name Role Phone Scordo, M Ольга PA [...] Unavailable Niels Decker MD Unavailable Unavailable Niels Dceker MD Unavailable Unavailable Niels Decker MD Unavailable [...] L Samina PA Unavailable Unavailable Pleskach, Nadiya HEEL FORMER Unavailable Unavailable Pleskach, Nadiya HEEL FORMER Unavailable Unavailable Pleskach, Nadiya HEEL FORMER Unavailable Unavailable Pleskach, Nadiya HEEL FORMER Unavailable Unavailable Pleskach, Nadiya HEEL FORMER Unavailable Unavailable Pleskach, Nadiya HEEL FORMER Unavailable Unavailable Pleskach, Nadiya HEEL FORMER Unavailable Unavailable Pleskach, Nadiya HEEL FORMER Unavailable Unavailable Pleskach, Nadiya HEEL FORMER Unavailable Unavailable Pleskach, Nadiya HEEL FORMER Unavailable Unavailable Pleskach, Nadiya HEEL FORMER Unavailable Unavailable Pleskach, Nadiya HEEL FORMER Unavailable Unavailable Pleskach, Nadiya HEEL FORMER Unavailable Unavailable Pleskach, Nadiya HEEL FORMER Unavailable Unavailable Pleskach, Nadiya HEEL FORMER Unavailable Unavailable Pleskach, Nadiya HEEL FORMER Unavailable Unavailable Pleskach, Nadiya HEEL FORMER Unavailable Unavailable Pleskach, Nadiya HEEL FORMER Unavailable Unavailable Pleskach, Nadiya HEEL FORMER Unavailable Unavailable Pleskach, Nadiya HEEL FORMER Unavailable Unavailable Pleskach, Nadiya HEEL FORMER Unavailable Unavailable Pleskach, Nadiya HEEL FORMER Unavailable Unavailable Pleskach, Nadiya HEEL FORMER Unavailable Unavailable Pleskach, Nadiya HEEL FORMER Unavailable Unavailable Pleskach, Nadiya HEEL FORMER Unavailable Unavailable Pleskach, Nadiya HEEL FORMER Unavailable Unavailable Pleskach, Nadiya HEEL FORMER Unavailable Unavailable Pleskach, Nadiya HEEL FORMER Unavailable Unavailable Pleskach, Nadiya HEEL FORMER Unavailable Unavailable Pleskach, Nadiya HEEL FORMER Unavailable Unavailable Re-disclosure Warning The records that [...] is protected by Article 27-F of the [facility] Public Health law. If you continue you may have access to information: Regarding HIV / AIDS; Provided by facilities licensed or operated by the [facility] Office of Mental Health; or Provided by the [facility] Office for People With Developmental Disabilities. If such information is present, then the following [facility] mandated warning applies: This information has been [...] law may result in a fine or usp sentence or both. A general authorization for the release of medical or other information is NOT sufficient authorization for further disc losure. Allergies and Adverse Reactions Type Description Substance Reaction Status Data Source(s ) No Known Drug Allergies No Known Drug Allergies No Known Drug Aller gies active [facility]SMART ([facility] ) Family History Family Member Name Family Member Gender Family Member Status Date o f Status Description Data Source(s) Unknown Unknown Problem [facility] ([facility], ) Unknown Male Problem [facility] ([facility] Unknown Male Problem [facility] Unknown Male Problem [facility] Unknown Male Problem [facility] Unknown Male Problem [facility] ([facility] Encounters Encounter Providers Location Date Indications Data Source(s ) Outpatient Attender: Samina GILES.ED 04/2020 12:00:00 AM EST - 06/23/2020 03:48:06 PM EST [facility] Outpatient Attender: Nadiya Bryan [facility] Main Office 06/16/2020 0 1:00:00 PM EST [facility] ([facility] Outpatient Attender: Ndaiya Bryan [facility] Main Office 04/14/2020 1 0:45:00 AM EDT [facility] ([facility] Outpatient Attender: Niels GUERRA 03/15 12:00:00 AM EDT - 03/24/2020 02:11:01 PM EDT [facility] Outpatient Attender: Niels [email or web address] 02/12 12:00:00 AM EDT - 02/23/2020 02:22:48 PM EDT [facility] Outpatient Attender: Nadiya Bryan [facility] Main Office 02/18/2020 0 2:15:00 PM EDT [facility] ([facility] 02/11/2020 01:00:00 AM EDT - 020 10:53:45 AM EDT [facility] ([facility]) Outpatient Attender: Ольга PERALTA Main Office 12/17/2019 03:40:00 PM EDT [facility] ([facility] Outpatient Referrer: Ольга PERALTA 09/03/2019 [...] EST active [facility] ([facility] [place] Remover Wipes 06/16/2020 12:00:00 AM EST active [facility] ([facility] Lancets (ONETOUCH DELICA PLUS [id number]) [facility] [id number] 06/05/2020 12:00:00 AM EST active [facility] [place] Adapt Ceraing 05/05/2020 12:00:00 AM EDT active [facility] ([facility] ONETOUCH ULTRA test strip [id number] 04/30/2020 12:00:00 AM EDT active [facility] [place] 2 Piece Ostomy Skin Barrier 04/14/2020 12:00:00 AM EDT active [facility] ([facility] Efren 2 Piece Drainable Ostomy Pouch 04/14/2020 12:00:00 AM EDT active [facility] ([facility] BLOOD SUGAR DIAGNOSTIC 04/05/2020 12:00:00 AM EDT strip 100 TEST TWO TIMES A DAY TEST TWO TIMES A DAY SOLD: 04/05/2020 [facility] 33 gauge 04/04/2020 12:00:00 AM EDT misc 50 USE ONCE DAILY USE ONCE DAILY SOLD: 04/04/2020 [facility] Furosemide 20 MG Oral Tablet furosemide (LASIX) 20 MG tablet furosemide (LASIX) 20 MG tablet 03/24/2020 12:00:00 AM EDT 20 mg Oral activ e Take 1 tablet (20 mg total) by mouth daily [facility] potassium chloride SA (K-DUR,KLOR-CON) 20 MEQ tablet [id number] 03/24/2020 12:00:00 AM EDT 20 meq Oral active Take 1 tablet (20 mEq total) by mouth daily [facility] 24 HR metoprolol succinate 50 MG Extende d Release Oral Tablet metoprolol succinate (TOPROL-XL) 50 MG 24 hr tablet metoprolol succinate (TOPROL-XL) 50 MG 24 hr tablet 03/07/2020 12:00:00 AM EDT 50 mg Oral activ e Take 1 tablet (50 mg total) by mouth daily [facility] 24 HR Diltiazem Hydrochloride 240 MG Ext ended Release Oral Capsule diltiazem (CARDIZEM CD) 240 MG 24 hr capsule diltiazem (CARDIZEM CD) 240 MG 24 hr capsule 03/07/2020 12:00:00 AM EDT 240 mg Oral active Take 1 capsule (240 mg total) by mouth daily [facility] apixaban 2.5 MG Oral Tablet apixaban (ELIQUIS) 2.5 MG TABS tablet apixaban (ELIQUIS) 2.5 MG TABS tablet 02/23/2020 12:00:00 AM EDT 2.5 mg Oral active Take 1 tablet (2.5 mg total) by mouth 2 (two) times a day [facility] Digoxin 0.125 MG Oral Tablet digoxin (LANOXIN) 125 MCG tablet digoxin (LANOXIN) 125 MCG tablet 02/23/2020 12:00:00 AM EDT 125 ug Oral act pamela Take 1 tablet (125 mcg total) by mouth daily [facility] Zaditor 0.025 % Zaditor 02/11/2020 01:00:00 AM EDT completed [facility] ([facility]) MetFORMIN HCl 500 MG MetFORMIN HCl 02/11/2020 01:00:00 AM EDT completed [facility] ([facility]) Atorvastatin Calcium 20 MG Atorvastatin Calcium 02/11/2020 01:00:00 A M EDT completed [facility] ( [facility]) Citracal + D 250-200 MG-UNIT Citracal + D 02/11/2020 01:00:00 AM EDT completed [facility] ([facility]) Glimepiride 1 MG Glimepiride 02/11/2020 01:00:00 AM EDT completed [facility] ([facility] ) Eliquis 2.5 MG Eliquis 02/11/2020 01:00:00 AM EDT completed [facility] ([facility]) Pantoprazole Sodium 40 MG Pantoprazole Sodium 02/11/2020 01:00:00 AM E DT completed [facility] ([facility]) Metoprolol Succinate ER 50 MG Metoprolol Succinate ER 2019 01:00:00 AM EDT completed NETSMAR T ([facility]) DilTIAZem CD 240 MG DilTIAZem CD 02/11/2020 01:00:00 AM EDT completed [facility] ([facility]) Acetaminophen ER 650 MG Acetaminophen ER 02/11/2020 01:00:00 AM EDT completed [facility] ([facility]) Digoxin 250 MCG Digoxin 02/11/2020 01:00:00 AM EDT completed [facility] ([facility]) Digoxin 0.25 MG Oral Tablet Digoxin 02/09/2020 [...] 1 drop 2 (two) times a day [facility] pantoprazole 40 MG Delayed Release Oral Tablet pantoprazole (PROTONIX) 40 MG tablet pantoprazole (PROTONIX) 40 MG tablet 40 mg Oral aborted Take 40 mg by mouth daily [facility] Insurance Providers Payer name Policy type / Coverage type Policy ID Covered republican ID Covered republican's relationship to payne Policy Payne Plan Information R [facility] [id number] SP [id number] MEDICARE [id number] SP [id number] UMR O [id number] S [id number] MEDICARE [id number] S [id number] R [id number] MEDICARE [id number] R [id number] Merary [id number] MEDICARE [id number] Merary [id number] R [facility] [id number] SP [id number] R O [id number] S [id number] [place] Medicare Primary [id number] Self [id number] r Medigap Part B [id number] Self [id number] [place] Primary [id number] Self [id number] UMR O UNAVAILABLE S UNAVAILA BLE MEDICARE C [id number] S [id number] D Umr Medigap Part B [id number] Self [id number] [place] Primary [id number] Self [id number] ANSI-Medicare Part [id number] ANSI-Not a Secondary Insurance [id number] [place] Medigap Part B [id number] Self [id number] [place] Medicare Primary [id number] Self [id number] [place] Med[place]ap Part B [id number] Self [id number] [place] Primary [id number] Self [id number] [place] Medigap Part B [id number] Self [id number] [place] Medicare Primary [id number] Self [id number] [place] Medigap Part B [id number] Self [id number] [place] Primary [id number] Self [id number] [place] Medigap Part B Self [place] Primary Self [employer] PPO O [id number] S [id number] [place] Medigap Part B Self Problems, Conditions, and Diagnoses Code Display Name Description Problem Type Effective Dates Data Source(s) R09.89 Labile blood pressure Labile blood pressure [id number] 06/23/2020 12:00:00 AM EST [facility] E11.9 Type 2 diabetes mellitus wit hout complication, without long-term current use of insulin Type 2 diabetes mellitus without complic ation, without long-term current use of insulin [id number] 06/23/2020 12:00:00 AM EST [facility] R60.0 Bilateral leg edema Bilateral leg edema [id number] 03/24/2020 12:00:00 AM EDT [facility] I48.19 Persistent atrial fibrillation Persistent atrial fibri llation [id number] 02/23/2020 12:00:00 AM EDT [facility] C18.0 Malignant neoplasm of cecum Malignant neoplasm of cecu m Problem 02/10/2020 01:00:00 AM EDT [facility] ([facility] ) C18.2 Malignant neoplasm of ascending colon Ma lignant neoplasm of ascending colon Problem 02/10/2020 01:00:00 AM EDT [facility] ([facility]) 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 Problem 02/10/2020 01:00:00 AM EDT [facility] ([facility]) K57.30 Diverticulosis of large inte kristian without perforation or abscess without bleeding Diverticulosis of large intestine withou t perforation or abscess without bleeding Problem 02/10/2020 01:00:00 AM EDT [facility]SM[facility] ([facility]) I48.91 Unspecified atrial fibrillation Unspecified atrial fib rillation Problem 02/10/2020 01:00:00 AM EDT [facility] ([facility] ) E11.9 Type 2 diabetes mellitus without complic ations Type 2 diabetes mellitus without complications Problem 02/10/2020 01:00:00 AM EDT [facility] ([facility]) Z43.3 Encounter for attention to colostomy Encounter f or attention to colostomy Problem 02/10/2020 01:00:00 AM EDT [facility] ([facility]) Z48.01 Encounter for change or removal of surgi gerald wound dressing Encounter for change or removal of surgical wound dressing Problem 02/10/2020 01:0 0:00 AM EDT [facility] ([facility]) 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 Acquired absence of other specified parts of digestive tract Problem 01:00:00 AM EDT [facility] ([facility] ) Z92.3 Personal history of irradiation Personal history of ir radiation Problem 02/10/2020 01:00:00 AM EDT NETSM[facility] ([facility] ) Z79.84 USP (current) use of oral hypoglyc emic drugs USP (current) use of oral hypoglycemic drugs Problem 02/10/2020 01:00:00 AM EDT NE TSMART ([facility]) 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 USP (current) use of anticoagulants Problem 02/10/2020 01:00:00 AM EDT [facility] ([facility]) Z91.81 History of falling History of falling Problem 0 01:00:00 AM EDT [facility] ([facility]) Z48.3 Aftercare following surgery for neoplasm Aftercare following surgery for neoplasm Problem 02/10/2020 01:00:00 AM EDT [facility] ([facility]) Z48.815 Encounter for surgical after care following surgery on the digestive system Encounter for surgical aftercare followi ng surgery on the digestive system Problem 02/02/2020 01:00:00 AM EDT [facility] ([facility]) R60.0 Localized edema Localized edema Diagnosis 06/23/2020 02:2 9:56 PM EST [facility] I48.19 Other persistent atrial fibrillation Oth er persistent atrial fibrillation Diagnosis 06/23/2020 02:29:56 PM EST [facility] I48.0 Paroxysmal atrial fibrillation Paroxysmal atrial fibri llation Diagnosis 03/24/2020 01:21:28 PM EDT [facility] Surgeries/Procedures Procedure Description Date Indications Data Source(s) Diabetic Foot Exam 12/17/2019 12:00:00 AM EDT [facility] ([facility] Dr. Hood Results ID Date Data Source [id number] 06/13/2020 09:16:00 AM EST [facility] ([facility] [...] to the patient, ID Date Data Source [id number] 06/13/2020 09:16:00 AM EST [facility] ([facility] [...] Automated count 29.8 pg 26.6-33.0 [facility] A [...] to the patient, ID Date Data Source [id number] 06/14/2020 06:06:00 AM EST [facility] Name Value [...] 0.0-0.1 [facility] ID Date Data Source [id number] 06/14/2020 08:07:00 AM EST [facility] Name Value [...] mg/dL 8.7-10.3 [facility] ID Date Data Source [id number] 04/14/2020 12:00:00 AM EDT [facility] [place] Patient Name: PANCHITO [id number] Date of : 1940[place] [address] Date of Exam: 04/14/2020#: Fax: [phone] EXAM: [...] the right thigh asdescribed above.Accredited by the [employer] in Vascular PeripheralUltrasound.DENYS Elias/Bhavana you for referring AMARA MATAMOROS to our office. Electronically Signed - ESTHER KAUR DO 04/14/20 17:03 Name Value Range Interpretation Code Description Data Radhika rce(s) Supporting Document(s) ID Date Data Source [id number] 03/15/2020 03:52:00 PM EDT [facility] ([facility] Name Value Range Interpretation Code Description Data Radhika rce(s) Supporting Document(s) Iron [Mass/volume] in Serum or Plasma 30 ug/dL 50-170 [facility] ([facility] Carcinoembryonic Ag [Mass/volume] in Serum or Plasma 0.5 ng/mL [facility] ([facility] THE CEA ASSAY IS PERFORMED ON THE Locate Special Diet BY CHEMILUMINESCENCE AND SHOULD NOT BE COMPARED [...] [facility] ID Date Data Source [id number] 03/15/2020 03:52:00 PM EDT [facility] ([facility] Name Value Range Interpretation Code Description Data Radhika rce(s) Supporting Document(s) Creatinine For GFR 0.69 mg/dL 0.55-1.30 [facility] ([facility] Blood Urea Nitrogen 16 mg/dL 7-18 [facility] ([facility] Glucose, Fasting 110 mg/dL 70-100 [facility] ([facility] Potassium Serum 3.4 meq/L 3.5-5.1 [...] Little GFR Left</content>
<content>ESRD GFR <15 on [employer]</content>
<content></content> Sodium Level 144 meq/L 136-145 [facility] ([facility] Carbon Dioxide Level 28 meq/L 21-32 [facility] ([facility] Anion Gap 7 meq/L [...] [facility] ID Date Data Source [id number] 03/15/2020 03:52:00 PM EDT [facility] ([facility] [...] % 11.5-14.5 [facility] Grundy % 13.3 % 0.0-5.0 [facility] (Anitha summers [...] 0-0 MED [facility] ([facility] Grundy # 0.7 10 0.0-0.8 [facility] ([facility] Lymph # 0.5 10 1.5-5.0 [facility] Neutrophils # 3.6 10 1.5-8.5 [facility] Baso # 0.0 10 0.0-0.2 [facility] Eos # 0.1 10 0.0-0.5 [facility] ID Date Data Source 02/01/2020 12:00:00 AM EDT [facility] Name Value Range Interpretation Code Description Data Radhika rce(s) Supporting Document(s) 2019 Novel Coronavirus RNA [facility] This lab was ordered by [facility] and reported by [facility]. ID Date Data Source [id number] 01/05/2020 10:05:00 AM EDT [facility] ([facility] Name Value Range Interpretation Code Description Data Radhika rce(s) Supporting Document(s) Coronavirus 2019 Nasopharygeal Laboratory test result [facility] ([facility] Testing was performed using the matt(R) SARS-CoV-2 test. This test was developed and its performance characteristics determined by [facility]. This test has not been FDA [...] detected) result in this assay. Performed at: [address] [id number] Rehabilitation Inspector: Teresa Nguyen MD, Phone: [phone] Not Detected ID Date Data Source [id number] 01/05/2020 10:05:00 AM EDT [facility] Name Value Range Interpretation Code Description [facility] Supporting Document(s) SARS CORONAVIRUS 2 RNA [facility] This lab was ordered by [facility] and reported by [facility]. ID Date Data Source [id number] 12/11/2019 08:56:00 AM EDT [facility] ([facility] Name Value Range Interpretation Code Description Data Radhika rce(s) Supporting Document(s) Urea nitrogen [Mass/volume] in Serum or Plasma 13 mg/dL 8-27 [facility] A [...] to the patient, ID Date Data Source [id number] 12/11/2019 08:56:00 AM EDT [facility] ([facility] [...] to the patient, ID Date Data Source [id number] 12/11/2019 08:56:00 AM EDT [facility] ([facility] Name Value Range Interpretation Code Description Data Radhika rce(s) Supporting Document(s) Hemoglobin A1c/Hemoglobin.total in Blood 5.3 % 4.8-5.6 [facility] ([facility] A courtesy copy of this report has been sent to the patient, ID Date Data Source [id number] 12/12/2019 06:06:00 AM EDT [facility] Name Value [...] IU/L 0-32 [facility] ID Date Data Source [id number] 12/12/2019 12:05:00 PM EDT [facility] Name Value Range Interpretation Code Description Data Radhika rce(s) Supporting Document(s) Hemoglobin A1c 5.3 % 4.8-5.6 [facility] Prediabetes: 5.7 - 6.4 Diabetes: >6.4 Glycemic control for adults with diabetes: <7.0 ID Date Data Source [id number] 12/12/2019 06:06:00 AM EDT [facility] Name Value Range Interpretation Code Description Data Radhika rce(s) Supporting Document(s) Cholesterol, Total 143 mg/dL 100-199 [facility] Triglycerides 200 mg/dL 0-149 Above high normal [facility] HDL Cholesterol 36 mg/dL >39 Below low normal [facility] VLDL Cholesterol Gerald 40 mg/dL 5-40 [facility] LDL Cholesterol Calc 67 mg/dL 0-99 [facility] ID Date Data Source [id number] 12/01/2019 02:39:00 PM EDT [facility] ([facility] Name Value Range Interpretation Code Description Data Radhika rce(s) Supporting Document(s) Neutrophils % 73.2 % 36.0-66.0 [facility] Lymph % 8.5 % 24.0-44.0 [facility] ([facility] Grundy % 14.8 % 0.0-5.0 [facility] Baso % 0.8 % 0.0-1.0 [facility] Eos % 2.2 % 0.0-3.0 [facility] Lymph # 0.3 10 1.5-5.0 [facility] Immature Granulocyte % 0.5 % 0-3.0 [facility] ([facility] Neutrophils # 2.7 10 1.5-8.5 [facility] Grundy # 0.5 10 0.0-0.8 [facility] ([facility] Eos # 0.1 10 0.0-0.5 [facility] ([facility] Baso # 0.0 10 0.0-0.2 [facility] ([facility] ID Date Data Source [id number] 12/01/2019 02:39:00 PM EDT [facility] ([facility] [...] [facility] ID Date Data Source [id number] 11/17/2019 02:42:00 PM EDT [facility] ([facility] Name Value Range Interpretation Code Description Data Radhika rce(s) Supporting Document(s) Carcinoembryonic Ag [Mass/volume] in Serum or Plasma 1.0 ng/mL [facility] ([facility] THE CEA ASSAY IS PERFORMED ON THE Locate Special Diet BY CHEMILUMINESCENCE AND SHOULD NOT BE COMPARED INTERCHANGEABLY WITH OTHER METHODS. IT SHOULD NOT BE USED ALONE A SCREENING TEST OR DIAGNOSIS FOR THE PRESENCE OR ABSENCE OF MALIGNANT DISEASE. PREDICTIONS OF DISEASE RECURRENCE SHOULD NOT BE BASED SOLELY ON VALUES OBTAINED FROM SERIAL PATIENT SERUM VALUES. ID Date Data Source [id number] 11/17/2019 02:42:00 PM EDT [facility] ([facility] [...] Little GFR Left</content>
<content>ESRD GFR <15 on [employer]</content>
<content></content> Creatinine For GFR 0.80 mg/dL 0.55-1.30 [...] P.C.) Bilirubin,Total 1.0 mg/dL 0.2-1.0 [facility] ([facility] Alkaline Phosphatase 78 U/L 45-117 [facility] ([facility] Ast/Sgot 11 U/L 7-37 [facility] ([facility] Albumin 3.2 GM/DL 3.2-5.2 [facility] ([facility] Total Protein 6.3 GM/DL 6.4-8.2 [facility] ([facility] Albumin/Globulin Ratio 1.03 1.00-1.93 OR DENT ([facility] ID Date Data Source [id number] 11/17/2019 02:42:00 PM EDT [facility] ([facility] Name Value Range Interpretation Code Description Data Radhika rce(s) Supporting Document(s) Grundy % 13.6 % 0.0-5.0 [facility] (Anitha summers [...] 10 1.5-8.5 [facility] ([facility] Grundy # 0.6 10 0.0-0.8 [facility] ([facility] Eos # 0.1 10 0.0-0.5 [facility] ([facility] Lymph # 0.2 10 1.5-5.0 [facility] Baso # 0.0 10 0.0-0.2 [facility] ([facility] ID Date Data Source [id number] 11/17/2019 02:42:00 PM EDT [facility] ([facility] Gamez [...] [facility] ID Date Data Source [id number] 10/23/2019 11:09:00 AM EDT [facility] ([facility] Name Value Range Interpretation Code Description Data Radhika rce(s) Supporting Document(s) Urine Culture Laboratory test result [facility] ([facility] FULL REPORT IN LAB NOTES ([facility] and [facility] ). NO GROWTH ID Date Data Source [id number] 10/23/2019 11:09:00 AM EDT [facility] ([facility] Name Value Range Interpretation Code Description Data Radhika rce(s) Supporting Document(s) Appearance, Urine Laboratory test result [facility] Color, Urine Laboratory test result [facility] Specific Fleming Urine Auto 1.023 1.002-1.035 [facility] ([facility]a Gamez [...] [facility] ID Date Data Source [id number] 10/23/2019 10:18:00 AM EDT [facility] ([facility] Name Value Range Interpretation Code Description Data Radhika rce(s) Supporting Document(s) Ferritin [Mass/volume] in Serum or Plasma 6 ng/mL 8-252 [facility] ID Date Data Source [id number] 10/23/2019 10:18:00 AM EDT [facility] ([facility] Name Value Range Interpretation Code Description Data Radhika rce(s) Supporting Document(s) Iron (Fe) 47 ug/dL 50-170 [facility] ([facility] Total Iron Binding Capacity 474 ug/dL 250-450 [facility] Percent Saturation 9.9 % 13.2-45.0 [facility] ([facility]one [facility] ID Date Data Source [id number] 10/23/2019 10:18:00 AM EDT [facility] ([facility] Name Value Range Interpretation Code Description Data [facility](s) Supporting Document(s) Glucose, Fasting 171 mg/dL 70-100 [...] Little GFR Left</content>
<content>ESRD GFR <15 on [employer]</content>
<content></content> Sodium Level 139 meq/L 136-145 [facility] [...] [facility] Albumin/Globulin Ratio 0.95 1.00-1.93 [facility] ([facility] ID Date Data Source [id number] 10/23/2019 10:18:00 AM EDT [facility] ([facility] Name Value Range Interpretation Code Description Data Radhika rce(s) Supporting Document(s) Neutrophils % 73.8 % 36.0-66.0 [facility] ([facility] Eos % 1.5 % 0.0-3.0 [facility] ([facility] Lymph % 14.0 % 24.0-44.0 [facility] ([facility] Grundy % 10.0 % 0.0-5.0 [facility] ([facility] Immature Granulocyte % 0.2 % 0-3.0 [facility] ([facility] Baso % 0.5 % 0.0-1.0 [facility] ([facility] Neutrophils # 3.0 10 1.5-8.5 [facility] ([facility] Eos # 0.1 10 0.0-0.5 [facility] ([facility] Grundy # 0.4 10 0.0-0.8 [facility] ([facility] Lymph # 0.6 10 1.5-5.0 [facility] ([facility] Baso # 0.0 10 0.0-0.2 [facility] ([facility] ID Date Data Source [id number] 10/23/2019 10:18:00 AM EDT [facility] (Anitha Gamez [...] [facility] ID Date Data Source [id number] 09/08/2019 03:19:00 PM EST [facility] ([facility] Name Value Range Interpretation Code Description Data Radhika rce(s) Supporting Document(s) Carcinoembryonic Ag [Mass/volume] in Serum or Plasma 0.8 ng/mL [facility] ([facility] THE CEA ASSAY IS PERFORMED ON THE Locate Special Diet BY CHEMILUMINESCENCE AND SHOULD NOT BE COMPARED INTERCHANGEABLY WITH OTHER METHODS. IT SHOULD NOT BE USED ALONE A SCREENING TEST OR DIAGNOSIS FOR THE PRESENCE OR ABSENCE OF MALIGNANT DISEASE. PREDICTIONS OF DISEASE RECURRENCE SHOULD NOT BE BASED SOLELY ON VALUES OBTAINED FROM SERIAL PATIENT SERUM VALUES. ID Date Data Source [id number] 09/08/2019 03:19:00 PM EST [facility] (Anitha Gamez [...] Little GFR Left</content>
<content>ESRD GFR <15 on [employer]</content>
<content></content> Creatinine For GFR 0.96 mg/dL 0.55-1.30 [...] [facility] ([facility] Calcium Level 9.1 mg/dL 8.8-10.2 [...] [facility] ID Date Data Source [id number] 09/08/2019 03:19:00 PM EST [facility] ([facility] Name Value Range Interpretation Code Description Data Radhika rce(s) Supporting Document(s) Lymph % 22.6 % 24.0-44.0 [facility] ([facility] Neutrophils % 61.5 % 36.0-66.0 [facility] ([facility] Eos % 3.3 % 0.0-3.0 [facility] ([facility] Baso % 0.6 % 0.0-1.0 [facility] ([facility] Grundy % 11.8 % 0.0-5.0 [facility] ([facility] Neutrophils # 3.1 10 1.5-8.5 [facility] ([facility] Lymph # 1.2 10 1.5-5.0 [facility] ([facility] Immature Granulocyte % 0.2 % 0-3.0 [facility] ([facility] Baso # 0.0 10 0.0-0.2 [facility] ([facility] Grundy # 0.6 10 0.0-0.8 [facility] ([facility] Eos # 0.2 10 0.0-0.5 [facility] ([facility] ID Date Data Source [id number] 09/08/2019 03:19:00 PM EST [facility] (Anitha Gamez [...] [facility] ID Date Data Source [id number] 08/24/2019 03:48:00 PM EST [facility] ([facility] Name Value Range Interpretation Code Description Data Radhika rce(s) Supporting Document(s) Carcinoembryonic Ag [Mass/volume] in Serum or Plasma 0.6 ng/mL [facility] ([facility] THE CEA ASSAY IS PERFORMED ON THE [employer] BY CHEMILUMINESCENCE AND SHOULD NOT BE COMPARED INTERCHANGEABLY WITH OTHER METHODS. IT SHOULD NOT BE USED ALONE A SCREENING TEST OR DIAGNOSIS FOR THE PRESENCE OR ABSENCE OF MALIGNANT DISEASE. PREDICTIONS OF DISEASE RECURRENCE SHOULD NOT BE BASED SOLELY ON VALUES OBTAINED FROM SERIAL PATIENT SERUM VALUES. ID Date Data Source [id number] 08/14/2019 12:46:00 PM EST [facility] (Anitha Gamez [...] or Plasma 0.71 mg/dL 0.57-1.00 [facility] ([facility] [...] Protein, Total 6.2 g/dL 6.0-8.5 [facility] ([facility] A courtesy copy of this [...] to the patient, ID Date Data Source [id number] 08/14/2019 12:46:00 PM EST [facility] (Anitha Gamez [...] to the patient, ID Date Data Source [id number] 08/14/2019 12:46:00 PM EST [facility] (Anitha Gamez [...] to the patient, ID Date Data Source [id number] 08/15/2019 07:05:00 AM EST [facility] Name Value [...] 0.0-0.1 [facility] ID Date Data Source [id number] 08/15/2019 08:07:00 AM EST [facility] Name Value [...] IU/L 0-32 [facility] ID Date Data Source [id number] 08/15/2019 08:07:00 AM EST [facility] Name Value Range Interpretation Code Description Data Radhika rce(s) Supporting Document(s) Iron Bind.Cap.(TIBC) 420 ug/dL 250-450 [facility] UIBC 392 ug/dL 118-369 Above high normal [facility] Iron 28 ug/dL 27-139 [facility] Iron Saturation 7 % 15-55 Below lower panic limits [facility] ID Date Data Source [id number] 08/06/2019 11:44:00 AM EST [facility] ([facility] Name Value Range Interpretation Code Description Data Radhika rce(s) Supporting Document(s) Packed Cells Laboratory test result [facility] ([facility] TRANSFUSED PRODUCT: PACKED CELLS COUNT: 1 ID Date Data Source [id number] 08/06/2019 11:44:00 AM EST [facility] ([facility] Name Value Range Interpretation Code Description Data Radhika rce(s) Supporting Document(s) Ferritin [Mass/volume] in Serum or Plasma 4 ng/mL 8-252 [facility] ([facility] ID Date Data Source [id number] 08/06/2019 11:44:00 AM EST [facility] ([facility] Name Value Range Interpretation Code Description Data Radhika rce(s) Supporting Document(s) Iron (Fe) 8 ug/dL 50-170 [facility] ([facility] Percent Saturation 1.7 % 13.2-45.0 [facility] (Tyrone [facility] Total Iron Binding Capacity 480 ug/dL 250-450 [facility] ([facility] ID Date Data Source [id number] 08/06/2019 11:44:00 AM EST [facility] ([facility] Name Value Range Interpretation Code Description Data Radhika rce(s) Supporting Document(s) Blood Type Laboratory test result [facility] ([facility] AB Screen (Indirect Farooq)Vis Laboratory test result [facility] ([facility] ID Date Data Source [id number] 08/06/2019 11:44:00 AM EST [facility] ([facility] Name Value Range Interpretation Code Description Data Radhika rce(s) Supporting Document(s) Glucose, Fasting 144 mg/dL 70-100 [facility] ([facility] Blood Urea Nitrogen 18 mg/dL 7-18 [facility] ([facility]ela [facility] Sodium Level 142 meq/L 136-145 [facility] ([facility] Creatinine For GFR 0.84 mg/dL 0.55-1.30 [facility] ([facility] Glomerular Filtration Rate Laboratory test result [facility] ([facility] <content>Units are mL/min/1.73 m2</content>
<content></content>
<content>Chronic Kidney Disease Staging per NKF:</content>
<content></content>
<content>Stage I & II GFR >=60 Normal to Mildly Decreased</content>
<content>Stage III GFR 30- 59 Moderately Decreased</content>
<content>Stage IV GFR 15-29 Severely Decreased</content>
<content>Stage V GFR <15 Very Little GFR Left</content>
<content>ESRD GFR <15 on [employer]</content>
<content></content> Potassium Serum 3.8 meq/L 3.5-5.1 [facility] ([facility] Carbon Dioxide Level 21 meq/L 21-32 [facility] (Srinivas [facility] Chloride Level 111 meq/L 98-107 [facility] ([facility] Anion Gap 10 meq/L 8-16 [facility] ([facility] Calcium Level 8.5 mg/dL 8.8-10.2 [facility] ([facility] ID Date Data Source [id number] 08/06/2019 11:44:00 AM EST [facility] (Anitha Gamez [...] % 36.0-66.0 [facility] ([facility] Grundy % 10.0 % 0.0-5.0 [facility] (Anitha summers [...] 10 1.5-5.0 [facility] ([facility] Grundy # 0.8 10 0.0-0.8 [facility] (Anihta [facility] Baso # 0.0 10 0.0-0.2 [facility] ([facility] Eos # 0.0 10 0.0-0.5 [facility] ([facility] ID Date Data Source [id number] 08/04/2019 11:03:00 AM EST [facility] (Anitha Gamez [...] [facility] ID Date Data Source [id number] 08/04/2019 11:03:00 AM EST [facility] (Anitha Gamez [...] test result [facility] ([facility] Immature granulocytes/100 leukocytes in Blood by Automated count 0 % [facility] ([facility] Immature granulocytes [#/volume] in Blood by Automated count 0.0 x10E3/uL 0.0-0.1 [facility] ([facility] Morphology [Interpretation] in Blood Narrative Laboratory test result [facility] ([facility] ID Date Data Source [id number] 08/05/2019 08:07:00 AM EST [facility] Name Value [...] 0.0-0.1 [facility] ID Date Data Source [id number] 08/05/2019 08:07:00 AM EST [facility] Name Value [...] intake 06/23/2020 12:00:00 AM EST Never completed [facility] Smoking 06/23/2020 12:00:00 AM EST Never smoker completed Never s moker [facility] Smoking 06/16/2020 12:00:00 AM EST Never Smoked A Pipe complet ed Never Smoked A Pipe [facility] ([facility] Vital Signs ID Date Data Source UNK Name Value Range Interpretation Code Description Data Source(s) Diastolic blood pressure 70 mm[Hg] 70 mm[Hg] [facility] Systolic blood pressure 130 mm[Hg] 130 mm[Hg] [facility] Oxygen saturation in Arterial blood by Pulse oximetry 98 % 98 % [facility] Body mass index (BMI) [Ratio] 22.30 kg/m2 22.30 kg/m2 [facility] Body weight 53.524 kg 53.524 kg [facility] Body height 154.9 cm 154.9 cm [facility] Heart rate 68 /min 68 /min [facility] Body mass index (BMI) [Ratio] 22.0 kg/m2 22.0 k g/m2 [facility] ([facility] [place] body weight 105 [lb_av] 105 [lb_av] MED[facility] [...] Systolic blood pressure 138 mm[Hg] 138 mm[Hg] [facility] Diastolic blood pressure 79 mm[Hg] 79 mm[Hg] [facility] ([facility] Systolic blood pressure 151 mm[Hg] 151 mm[Hg] [facility] Body mass index (BMI) [Ratio] 22.7 kg/m2 22.7 k g/m2 [facility] ([facility] [place] body weight 105 [lb_av] 105 [lb_av] MED[facility] [...] k g/m2 [facility] ([facility] [place] body weight 105 [lb_av] 105 [lb_av] MED[facility] [...] Pulse oximetry 97 % 97 % [facility] ([facility] Body weight 121.38 [lb_av] [...] Systolic blood pressure 138 mm[Hg] 138 mm[Hg] [facility] Diastolic blood pressure 82 mm[Hg] 82 mm[Hg] [facility] ([facility] Systolic blood pressure 142 mm[Hg] 142 mm[Hg] M [facility] Body weight 58.061 kg 58.061 kg [facility] ([facility], ) Body mass index (BMI) [Ratio] 23.8 kg/m2 23.8 k g/m2 [facility] ([facility], ) Body weight 128.00 [lb_av] 128.00 [lb_av] [facility] T ([facility]) Body height 61.5 [in_i] 61.5 [in_i] [facility] ([facility]) 5'1.50" Diastolic blood pressure 64 mm[Hg] 64 mm[Hg] [facility] Systolic blood pressure 118 mm[Hg] 118 mm[Hg] [facility] Body mass index (BMI) [Ratio] 24.6 kg/m2 24.6 k g/m2 [facility] ([facility] Oxygen saturation in Arterial blood [...] Systolic blood pressure 136 mm[Hg] 136 mm[Hg] [facility] Body mass index [...] Data Source (s) Lancets (ONETOUCH DELICA PLUS [id number]) [facility] 06/05/2020 12:00:00 A M EST [facility] ONETOUCH ULTRA test strip 04/30/2020 12:00:00 AM EDT [facility] potassium chloride SA (K-DUR,KLOR-CON) 20 MEQ tablet 020 12:00:00 AM EDT [facility] Furosemide 20 MG Oral Tablet 03/24/2020 12:00:00 AM EDT [facility] 24 HR metoprolol succinate 50 MG Extended Release Oral Tablet 03/07/2020 12:00:00 AM EDT [facility] 24 HR Diltiazem Hydrochloride 240 MG Extended Release Oral Capsule 03/07/2020 12:00:00 AM EDT [facility] apixaban 2.5 MG Oral Tablet 02/23/2020 12:00:00 AM EDT [facility] Digoxin 0.125 MG Oral Tablet 02/23/2020 12:00:00 AM EDT [facility] Pantoprazole Sodium 40 MG 02/11/2020 01:00:00 AM ED[facility] Eliquis 2.5 MG 02/11/2020 01:00:00 AM EDT [facility] DilTIAZem CD 240 MG 02/11/2020 01:00:00 AM EDT [facility] Metoprolol Succinate ER 50 MG 02/11/2020 01:00:00 AM EDT [facility] Digoxin 250 MCG 02/11/2020 01:00:00 AM EDT [facility] Acetaminophen ER 650 MG 02/11/2020 01:00:00 AM EDT [facility] Citracal + D 250-200 MG-UNIT 02/11/2020 01:00:[address] [facility] ([facility]) Glimepiride 1 MG 02/11/2020 01:00:[address] [facility] ([facility]) MetFORMIN HCl 500 MG 02/11/2020 01:00:[address] [facility] ([facility]) Atorvastatin Calcium 20 MG 02/11/2020 01:00:[address] [facility] ([facility]) Zaditor 0.025 % 02/11/2020 01:00:[address] [facility] ([facility]) Ketotifen 0.25 MG/ML Ophthalmic Solution [facility] pantoprazole 40 MG Delayed Release Oral Tablet [facility]
[2020-09-06 10:57] LABS: BASO % 0.4 % (0.0-1.0); EOS # 0.1 10^3/uL (0.0-0.5); EOS % 1.3 % (0.0-3.0); HEMATOCRIT 31.8 % (36.0-47.0); HEMOGLOBIN 9.4 g/dl (12.0-15.5); LYMPH # 0.3 10^3/uL (1.5-5.0); LYMPH % 6.1 % (24.0-44.0); MEAN CORPUSCULAR HEMOGLOBIN 27.6 pg (27.0-33.0); MEAN CORPUSCULAR HGB CONC 29.6 g/dl (32.0-36.5); MEAN CORPUSCULAR VOLUME 93.3 fl (80.0-96.0); MONO # 0.4 10^3/uL (0.0-0.8); MONO % 9.1 % (2.0-8.0); NEUTROPHILS # 3.8 10^3/uL (1.5-8.5); NEUTROPHILS % 82.7 % (36.0-66.0); PLATELET COUNT, AUTOMATED 351 10^3/uL (150-450); RED BLOOD COUNT 3.41 10^6/uL (4.00-5.40); WHITE BLOOD COUNT 4.6 10^3/uL (4.0-10.0)
[2020-09-06 11:10] LABS: INR 1.17; PROTHROMBIN TIME 15.2 SECONDS (12.5-14.3)
[2020-09-06 11:11] LABS: PARTIAL THROMBOPLASTIN TIME 35.6 SECONDS (24.2-38.5)
[2020-09-06 11:38] LABS: ALBUMIN 3.6 GM/DL (3.2-5.2); BILIRUBIN,DIRECT 0.2 MG/DL (0.0-0.2); BILIRUBIN,TOTAL 0.9 MG/DL (0.2-1.0); TOTAL PROTEIN 7.2 GM/DL (6.4-8.2)
--- NOTE | 2020-09-06 12:44 | HPEPDOC ---
[facility] Medical History & Physical Date of Admission Sep 06, 2020 Date of Service: Sep 06, 2020 History and Physical CHIEF COMPLAINT: Possible blood in ostomy bag Hx HTN, DM, history of rectal cancer status post resection and ostomy bag by Dr. Galicia surgeon in [place]. Patient was concerned that over the past several days she's noticed pink liquid output in her ostomy bag presents to the hospital. Hemoglobin appears to be stable from prior 9.4 today. Patient follows with oncology Dr. Lambert she is known to have a GI bleed since early August and received a unit of blood last Saturday and is scheduled to receive another one this upcoming Saturday. Patient also has an upcoming appointment with gastroenterology September 19. Patient tells me she doesn't feel any dizziness or lightheadedness or chest pain, shortness of breath, palpitations, blurry vision. Tells me she feels totally fine and is very hesitant to be admitted to the hospital for observation. She wants to go home from the emergency department. I discussed with the patient that she can stay until we repeat another H&H later in the evening and if it stable on discharge her later today and she agreed to this plan. HISTORY OF PRESENT ILLNESS: 79-year-old female PAST MEDICAL/SURGICAL HISTORY: Essential hypertension dyslipidemia Bhs-aszfcto-xgftofewk diabetes mellitus Recal/cecum cancer s/p resection declined post op chemotherapy Tubal ligation Appendectomy Cataract surgery Excision of lipoma right shoulder SOCIAL HISTORY: Denies alcohol use Denies tobacco use Denies illicit drug use FAMILY HISTORY: Reviewed and none contributory to this admission ALLERGIES: Please see below. REVIEW OF SYSTEMS: 10 point review of systems complete all negative otherwise stated in HPI HOME MEDICATIONS: Please see below. PHYSICAL EXAMINATION: Constitutional: Awake and alert, in no apparent distress ENT: Sclera are clear. Mucosa is moist. Respiratory: Lungs CTA bilaterally. No respiratory distress. No use of accessory muscles. Cardiovascular: RRR S1 and S2 are normal, no murmur Gastrointestinal: Abdomen is soft, non distended, non tender, BS present. Left ostomy bag examined with liquid brown stool no obvious bleeding Musculoskeletal: No lower extremity edema Neurologic: No focal neurological deficit. Mental Status: A&O x3, normal affect Skin: Warm, dry LABORATORY DATA: See below. IMAGING: See chart MICROBIOLOGY: Please see below. ASSESSMENT/PLAN 79-year-old female presents due to concern of pink tinged liquid in her ostomy bag concern for blood. Patient is asymptomatic currently no obvious bleeding will be admitted for observation and discharged later today if remains asymptomatic with stable H&H. # Possible blood in ostomy bag: Patient has been known to have a slow GI bleed and follows with Dr. Lambert oncology received a unit of blood last Saturday and is scheduled to receive another one this upcoming Saturday. She also has a follow-up with GI Dr Ortiz on September 19 as well as her surgeon Dr. Galicia in [place] next month. Patient will be admitted for observation to repeat an H&H in the evening and there is no significant drop and she remains asymptomatic she'll be discharged later on today in follow-up with her appointments. # Uncontrolled hypertension: Patient says that she is anxious and this typically elevates her blood pressure she denies any headache or blurry vision. Continue home medications. Reassess blood pressure in the evening. Titrate medications as needed and follow-up with PCP. # ? A fib: patient is on medications that lead to think she has A fib, at least paroxysmal. her HR on exam is regular. She's on eliquis, digoxin, and cardizem, patient unsure if she has A fib. I will resume her home medications and have her follow up with her PCP for clarification. # DM: ISS. Frequent Accu-Cheks. Hypoglycemic precautions. # HLD: resume statin # DVT prophylaxis: SCD A [facility]ouse[facility] Hospitalist Vital Signs Vital Signs Date Time Temp Pulse Resp B/P (MAP) Pulse Ox O2 Delivery O2 Flow Rate FiO2 09/06/20 11:44 69 99 Room Air 09/06/20 11:30 153/70 (97) 09/06/20 10:08 98.0 16 Laboratory Data Labs 24H Laboratory Tests 2 09/06/20 10:36: Immature Granulocyte % (Auto) 0.4, Neutrophils (%) (Auto) 82.7H, Lymphocytes (%) (Auto) 6.1L, Monocytes (%) (Auto) 9.1H, Eosinophils (%) (Auto) 1.3, Basophils (%) (Auto) 0.4, Neutrophils # (Auto) 3.8, Lymphocytes # (Auto) 0.3L, Monocytes # (Auto) 0.4, Eosinophils # (Auto) 0.1, Basophils # (Auto) 0.0, Nucleated Red Blood Cells % (auto) 0.0, Prothrombin Time 15.2H, Prothromb Time International Ratio 1.17, Activated Partial Thromboplast Time 35.6, Total Bilirubin 0.9, Direct Bilirubin 0.2, Aspartate Amino Transf (AST/SGOT) 12, Alanine Aminot ransferase (ALT/SGPT) 20, Alkaline Phosphatase 132H, Total Protein 7.2, Albumin 3.6, Albumin/Globulin Ratio 1.0L, Lipase 85, Digoxin Level 1.0 09/06/20 10:40: POC Glucose (Misc Panel) 105, POC Sodium (Misc Panel) 141, POC Potassium (Misc Panel) 3.6, POC Chloride (Misc Panel) 105, POC Total CO2 (Misc Panel) 27.0, POC Blood Urea Nitrogen (Misc Panel 19, POC Ionized Calcium (Misc Panel) 4.9, POC Creatinine (Misc Panel) 0.7, POC Hematocrit (Misc Panel) 32.0L 09/06/20 12:06: CBC/BMP Laboratory Tests 09/06/20 10:36 Home Medications Scheduled Apixaban (Eliquis) 2.5 Mg Tablet, 2.5 MG PO BID Atorvastatin Calcium (Atorvastatin Calcium) 20 Mg Tablet, 20 MG PO QHS Calcium Citrate/Vitamin D3 (Citracal + D Maximum Caplet) 1 Each Tablet, 2 TAB PO DAILY Digoxin (Digoxin) 125 Mcg Tablet, 125 MCG PO DAILY Diltiazem HCl (Diltiazem 24Hr ER) 240 Mg Cap.er.24h, 240 MG PO DAILY Glimepiride (Glimepiride) 1 Mg Tablet, 0.5 MG PO DAILY Metformin HCl (Metformin HCl) 500 Mg Tablet, 500 MG PO QPM Metoprolol Succinate (Metoprolol Succinate) 50 Mg Tab.er.24h, 50 MG PO DAILY Scheduled PRN Furosemide (Lasix) 20 Mg Tablet, 20 MG PO DAILY PRN for EDEMA Potassium Chloride (Potassium Chloride) 20 Meq Tab.er.prt, 20 MG PO DAILY PRN for EDEMA TAKE WITH FUROSEMIDE Allergies Coded Allergies: No Known Allergies (Unverified , 08/06/19) A-FIB/CHADSVASC A-FIB History Current/History of A-Fib/PAF?: Yes Current PO Anticoag Therapy: Yes LISSETTE COLEMAN MD Sep 06, 2020 12:44
[2020-09-06] MEDS ORDERED: MAALOX 30 ML SUSP *UDC PO PRN (12:45)
[2020-09-06] MEDS ORDERED: GLUCAGON INJ 1MG VIAL SC PRN (12:45)
[2020-09-06] MEDS ORDERED: DEXTROSE 50% 50 ML SYRINGE IV PRN (12:45)
[2020-09-06] MEDS ORDERED: GLUCOSE 4GM CHEW TABLET PO PRN (12:45)
[2020-09-06] MEDS ORDERED: ACETAMINOPHEN TAB 650MG DOSE (2X325MG) PO PRN (12:45)
[2020-09-06] MEDS ORDERED: MOM 30ML SUSPENSION UDC PO PRN (12:45)
--- OUTSIDE RECORDS SUMMARY | 2020-09-06 12:46 | CCD ---
Author Author [facility] Organization [facility] Address Unknown Phone Unavailable Care Team Providers Care Career Technical Education Teacher Name Role Phone Scordo, M Ольга [...] Unavailable Torres, L Samina PA Unavailable Unavailable Otrres, L Samina PA Unavailable Unavailable Torres, L [...] L Samina PA Unavailable Unavailable Pleskach, Nadiya BOILER SERVICE TECHNICIAN Unavailable Unavailable Pleskach, Nadiya BOILER SERVICE TECHNICIAN Unavailable Unavailable Pleskach, Nadiya BOILER SERVICE TECHNICIAN Unavailable Unavailable Pleskach, Nadiya BOILER SERVICE TECHNICIAN Unavailable Unavailable Pleskach, Nadiya BOILER SERVICE TECHNICIAN Unavailable Unavailable Pleskach, Nadiya BOILER SERVICE TECHNICIAN Unavailable Unavailable Pleskach, Nadiya BOILER SERVICE TECHNICIAN Unavailable Unavailable Pleskach, Nadiya BOILER SERVICE TECHNICIAN Unavailable Unavailable Pleskach, Nadiya BOILER SERVICE TECHNICIAN Unavailable Unavailable Pleskach, Nadiya BOILER SERVICE TECHNICIAN Unavailable Unavailable Pleskach, Nadiya BOILER SERVICE TECHNICIAN Unavailable Unavailable Pleskach, Nadiya BOILER SERVICE TECHNICIAN Unavailable Unavailable Pleskach, Nadiya BOILER SERVICE TECHNICIAN Unavailable Unavailable Pleskach, Nadiya BOILER SERVICE TECHNICIAN Unavailable Unavailable Pleskach, Nadiya BOILER SERVICE TECHNICIAN Unavailable Unavailable Pleskach, Nadiya BOILER SERVICE TECHNICIAN Unavailable Unavailable Pleskach, Nadiya BOILER SERVICE TECHNICIAN Unavailable Unavailable Pleskach, Nadiya BOILER SERVICE TECHNICIAN Unavailable Unavailable Pleskach, Nadiya BOILER SERVICE TECHNICIAN Unavailable Unavailable Pleskach, Nadiya BOILER SERVICE TECHNICIAN Unavailable Unavailable Pleskach, Nadiya BOILER SERVICE TECHNICIAN Unavailable Unavailable Pleskach, Nadiya BOILER SERVICE TECHNICIAN Unavailable Unavailable Pleskach, Nadiya BOILER SERVICE TECHNICIAN Unavailable Unavailable Pleskach, Nadiya BOILER SERVICE TECHNICIAN Unavailable Unavailable Pleskach, Nadiya BOILER SERVICE TECHNICIAN Unavailable Unavailable Pleskach, Nadiya BOILER SERVICE TECHNICIAN Unavailable Unavailable Pleskach, Nadiya BOILER SERVICE TECHNICIAN Unavailable Unavailable Pleskach, Nadiya BOILER SERVICE TECHNICIAN Unavailable Unavailable Pleskach, Nadiya BOILER SERVICE TECHNICIAN Unavailable Unavailable Pleskach, Nadiya BOILER SERVICE TECHNICIAN Unavailable Unavailable Re-disclosure Warning The records that [...] is protected by Article 27-F of the [facility] Public Health law. If you continue you may have access to information: Regarding HIV / AIDS; Provided by facilities licensed or operated by the [facility] Office of Mental Health; or Provided by the [facility] Office for People With Developmental Disabilities. If such information is present, then the following [facility] mandated warning applies: This information has [...] law may result in a fine or detention sentence or both. A general authorization for the release of medical or other information is NOT sufficient authorization for further disc losure. Allergies and Adverse Reactions Type Description Substance Reaction Status Data Source(s ) No Known Drug Allergies No Known Drug Allergies No Known Drug Aller gies active [facility]SMART ([facility] ) Family History Family Member Name Family Member Gender Family Member Status Date o f Status Description Data Source(s) Unknown Unknown Problem [facility] ([facility], ) Unknown Male Problem [...] AM EST - 06/23/2020 03:48:[address] [facility] Outpatient Attender: Nadiya Bryan [facility] Main Office 06/16/2020 0 1:00:00 PM EST [facility] ([facility] Outpatient Attender: Nadiya Bryan [facility] Main Office 04/14/2020 1 0:45:00 AM EDT [facility] ([facility] Outpatient Attender: Niels GUERRA 03/15 12:00:00 AM EDT - 03/24/2020 02:11:[address] [facility] Outpatient Attender: Niels [email or web address] 02/12 12:00:00 AM EDT - 02/23/2020 02:22:[address] [facility] Outpatient Attender: Nadiya Bryan [facility] Main Office 02/18/2020 0 2:15:00 PM EDT [facility] ([facility] 02/11/2020 01:00:00 AM EDT - 020 10:53:45 AM EDT NETSM[facility] ([facility]) Outpatient Attender: Ольга PERALTA Main Office 12/17/2019 03:40:00 PM EDT [facility] Outpatient Referrer: Ольга PERALTA [...] EST active [facility] ([facility] Dumont Remover Wipes 06/16/2020 12:00:00 AM EST active [facility] ([facility] Lancets (ONETOUCH DELICA PLUS [id number]) [facility] [id number] 06/05/2020 12:00:00 AM EST active [facility] [place] Adapt Ceraing 05/05/2020 12:00:00 AM EDT active [facility] ([facility] ONETOUCH ULTRA test strip [id number] 04/30/2020 12:00:00 AM EDT active [facility] [place] 2 Piece Ostomy Skin Barrier 04/14/2020 12:00:00 [...] tablet (20 mg total) by mouth daily [facility] potassium chloride SA (K-DUR,KLOR-CON) 20 MEQ tablet [id number] 03/24/2020 12:00:00 AM EDT 20 meq Oral active Take 1 tablet (20 mEq total) by mouth daily [facility] 24 HR metoprolol succinate 50 MG Extende d Release Oral Tablet metoprolol succinate (TOPROL-XL) 50 MG 24 hr tablet metoprolol succinate (TOPROL-XL) 50 MG 24 hr tablet 03/07/2020 12:00:00 AM EDT 50 mg Oral activ e Take 1 tablet (50 mg total) by mouth daily [facility] 24 HR Diltiazem Hydrochloride 240 MG Ext ended Release Oral Capsule diltiazem (CARDIZEM CD) 240 MG 24 hr capsule diltiazem (CARDIZEM CD) 240 MG 24 hr capsule 03/07/2020 12:00:00 AM EDT 240 mg Oral active Take 1 capsule (240 mg total) by mouth daily [facility] apixaban 2.5 MG Oral Tablet apixaban (ELIQUIS) 2.5 MG TABS tablet apixaban (ELIQUIS) 2.5 MG TABS tablet 02/23/2020 12:00:00 AM EDT 2.5 mg Oral active Take 1 tablet (2.5 mg total) by mouth 2 (two) times a day [facility] Digoxin 0.125 MG Oral Tablet digoxin (LANOXIN) 125 MCG tablet digoxin (LANOXIN) 125 MCG tablet 02/23/2020 12:00:00 AM EDT 125 ug Oral act pamela Take 1 tablet (125 mcg total) by mouth daily [facility] Zaditor 0.025 % Zaditor 02/11/2020 01:00:00 AM EDT completed [facility] ([facility]) MetFORMIN HCl 500 MG MetFORMIN HCl 02/11/2020 01:00:00 AM EDT completed [facility] ([facility]) Atorvastatin Calcium 20 MG Atorvastatin Calcium 02/11/2020 01:00:00 A M EDT completed [facility]SMART ( [facility]) Citracal + D 250-200 MG-UNIT Citracal + D 02/11/2020 01:00:00 AM EDT completed [facility] ([facility]) Glimepiride 1 MG Glimepiride 02/11/2020 01:00:00 AM EDT completed [facility] ([facility] ) Eliquis 2.5 MG Eliquis 02/11/2020 01:00:00 AM EDT completed [facility] ([facility]) Pantoprazole Sodium 40 MG Pantoprazole Sodium 02/11/2020 01:00:00 AM E DT completed [facility] ([facility]) Metoprolol Succinate ER 50 MG Metoprolol Succinate ER 2019 01:00:00 AM EDT completed NETSMAR T ([facility]) DilTIAZem CD 240 MG DilTIAZem CD 02/11/2020 01:00:00 AM EDT completed [facility] ([facility]) Acetaminophen ER 650 MG Acetaminophen ER 02/11/2020 01:00:00 AM EDT completed [facility] ([facility]) Digoxin 250 MCG Digoxin 02/11/2020 01:00:00 AM EDT completed [facility] ([facility]) Digoxin 0.25 MG Oral Tablet [...] 1 drop 2 (two) times a day [facility] pantoprazole 40 MG Delayed Release Oral Tablet pantoprazole (PROTONIX) 40 MG tablet pantoprazole (PROTONIX) 40 MG tablet 40 mg Oral aborted Take 40 mg by mouth daily [facility] Insurance Providers Payer name Policy type / Coverage type Policy ID Covered constitution party ID Covered constitution party's relationship to payne Policy Payne Plan Information R [facility] [id number] SP [id number] MEDICARE [id number] SP [id number] UMR O [id number] S [id number] MEDICARE [id number] S [id number] R [id number] MEDICARE [id number] R [id number] [place] [id number] MEDICARE [id number] [place]ary [id number] [id number] R [facility] [id number] SP [id number] R O [id number] S [id number] [place] Medicare Primary [id number] Self [id number] r Medigap Part B [id number] Self [id number] [place] Primary [id number] Self [id number] UMR O UNAVAILABLE S UNAVAILA BLE MEDICARE C [id number] S [id number] D Umr Medigap Part B [id number] Self [id number] Medicare [place] Primary [id number] Self [id number] ANSI-Medicare Part B [id number] ANSI-Not a Secondary Insurance [id number] [place] Medigap Part B [id number] Self [id number] [place] Medicare Primary [id number] Self [id number] [place] Med[place]ap Part B [id number] Self [id number] [place] Primary [id number] Self [id number] [place] Medigap Part B [id number] Self [id number] [place] Medicare Primary [id number] Self [id number] [place] Medigap Part B [id number] Self [id number] [place] Primary [id number] Self [id number] [place] Medigap Part B Self [place] Primary Self [employer] PPO O [id number] S [id number] [place] Medigap Part B Self Problems, Conditions, and Diagnoses Code Display Name Description Problem Type Effective Dates Data Source(s) R09.89 Labile blood pressure Labile blood pressure [id number] 06/23/2020 12:00:[address] [facility] E11.9 Type 2 diabetes mellitus wit hout complication, without long-term current use of insulin Type 2 diabetes mellitus without complic ation, without long-term current use of insulin [id number] 06/23/2020 12:00:00 AM EST [facility] R60.0 Bilateral leg edema Bilateral leg edema [id number] 03/24/2020 12:00:[address] [facility] I48.19 Persistent atrial fibrillation Persistent atrial fibri llation [id number] 02/23/2020 12:00:[address] 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 Problem 02/10/2020 01:00:00 AM EDT [facility] ([facility]) K57.30 Diverticulosis of large inte kristian without perforation or abscess without bleeding Diverticulosis of large intestine withou t perforation or abscess without bleeding Problem 02/10/2020 01:00:00 AM EDT [facility]SM[facility] ([facility]) I48.91 Unspecified atrial fibrillation Unspecified atrial fib rillation Problem 02/10/2020 01:00:00 AM EDT NETSMART ([facility] ) E11.9 Type 2 diabetes mellitus without complic ations Type 2 diabetes mellitus without complications Problem 02/10/2020 01:00:00 AM EDT [facility] ([facility]) Z43.3 Encounter for attention to colostomy Encounter f or attention to colostomy Problem 02/10/2020 01:00:00 AM EDT NETSMART ([facility]) Z48.01 Encounter for change or removal of surgi gerald wound dressing Encounter for change or removal of surgical wound dressing Problem 02/10/2020 01:0 0:00 AM EDT [facility]SM[facility] ([facility]) 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 Acquired absence of other specified parts of digestive tract Problem 01:00:00 AM EDT [facility] ([facility] ) Z92.3 Personal history of irradiation Personal history of ir radiation Problem 02/10/2020 01:00:00 AM EDT NETSMART ([facility] ) Z79.84 residential (current) use of oral hypoglyc emic drugs residential (current) use of oral hypoglycemic drugs Problem 02/10/2020 01:00:00 AM EDT NE TSMART ([facility]) 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 residential (current) use of anticoagulants Problem 02/10/2020 01:00:00 AM EDT [facility] ([facility]) Z91.81 History of falling History of falling Problem 0 01:00:00 AM EDT [facility]SM[facility] ([facility]) Z48.3 Aftercare following surgery for neoplasm Aftercare following surgery for neoplasm Problem 02/10/2020 01:00:00 AM EDT [facility] ([facility]) Z48.815 Encounter for surgical after care following surgery on the digestive system Encounter for surgical aftercare followi ng surgery on the digestive system Problem 02/02/2020 01:00:00 AM EDT [facility]SM[facility] ([facility]) R60.0 Localized edema Localized edema Diagnosis 06/23/2020 02:2 9:[address] [facility] I48.19 Other persistent atrial fibrillation Oth er persistent atrial fibrillation Diagnosis 06/23/2020 02:29:[address] [facility] I48.0 Paroxysmal atrial fibrillation Paroxysmal atrial fibri llation Diagnosis 03/24/2020 01:21:[address] [facility] Surgeries/Procedures Procedure Description Date Indications Data Source(s) Diabetic Foot Exam 12/17/2019 12:00:00 AM EDT [facility] Dr. Hood Results ID Date Data Source [id number] 06/13/2020 09:16:00 AM EST [facility] ([facility] [...] to the patient, ID Date Data Source [id number] 06/13/2020 09:16:00 AM EST [facility] ([facility] [...] to the patient, ID Date Data Source [id number] 06/14/2020 06:06:00 AM EST [facility] Name Value [...] 0.0-0.1 [facility] ID Date Data Source [id number] 06/14/2020 08:07:00 AM EST [facility] Name Value [...] mg/dL 8.7-10.3 [facility] ID Date Data Source [id number] 04/14/2020 12:00:00 AM EDT [facility] [place] Patient Name: PANCHITO [id number] Date of : 1940[place] [address] Date of Exam: 04/14/2020#: Fax: [phone] EXAM: [...] the right thigh asdescribed above.Accredited by the [employer] in Vascular PeripheralUltrasound.DENYS Elias/Bhavana you for referring AMARA MATAMOROS to our office. Electronically Signed - ESTHER KAUR DO 04/14/20 17:03 Name Value Range Interpretation Code Description Data Radhika rce(s) Supporting Document(s) ID Date Data Source [id number] 03/15/2020 03:52:00 PM EDT [facility] ([facility] Name Value Range Interpretation Code Description Data Radhika rce(s) Supporting Document(s) Iron [Mass/volume] in Serum or Plasma 30 ug/dL 50-170 [facility] ([facility] Carcinoembryonic Ag [Mass/volume] in Serum or Plasma 0.5 ng/mL [facility] ([facility] THE CEA ASSAY IS PERFORMED ON THE Corhythm BY CHEMILUMINESCENCE AND SHOULD NOT BE COMPARED [...] [facility] ID Date Data Source [id number] 03/15/2020 03:52:00 PM EDT [facility] ([facility] [...] Little GFR Left</content>
<content>ESRD GFR <15 on BILINGUAL MEDICAL RECEPTIONIST</content>
<content></content> Sodium Level 144 meq/L 136-145 MEDENT [...] [facility] ID Date Data Source [id number] 03/15/2020 03:52:00 PM EDT [facility] ([facility] [...] % 11.5-14.5 [facility] ([facility] [place] % 13.3 % 0.0-5.0 MED[facility] (Anitha summers [...] 0-0 MED E[facility] ([facility] [place] # 0.7 10 0.0-0.8 MED[facility] (Anitha summers [...] rce(s) Supporting Document(s) 2019 Novel Coronavirus RNA [facility] This lab was ordered by [facility] and reported by [facility]. ID Date Data Source [id number] 01/05/2020 10:05:00 AM EDT [facility] ([facility] Name Value Range Interpretation Code Description Data Radhika rce(s) Supporting Document(s) Coronavirus 2019 Nasopharygeal Laboratory test result [facility] ([facility] Testing was performed using the matt(R) SARS-CoV-2 test. This test was developed and its performance characteristics determined by [facility]. This test has not been FDA [...] detected) result in this assay. Performed at: [address] [id number] Step Finisher: Teresa Nguyen MD, Phone: [phone] Not Detected ID Date Data Source [id number] 01/05/2020 10:05:00 AM EDT [facility] Name Value Range Interpretation Code Description Data [facility] Supporting Document(s) SARS CORONAVIRUS 2 RNA [facility] This lab was ordered by [facility] and reported by [facility]. ID Date Data Source [id number] 12/11/2019 08:56:00 AM EDT [facility] ([facility] [...] to the patient, ID Date Data Source [id number] 12/11/2019 08:56:00 AM EDT [facility] ([facility] [...] to the patient, ID Date Data Source [id number] 12/11/2019 08:56:00 AM EDT [facility] ([facility] Name Value Range Interpretation Code Description Data Radhika rce(s) Supporting Document(s) Hemoglobin A1c/Hemoglobin.total in Blood 5.3 % 4.8-5.6 [facility] A courtesy copy of this report has been sent to the patient, ID Date Data Source [id number] 12/12/2019 06:06:00 AM EDT [facility] Name Value [...] IU/L 0-32 [facility] ID Date Data Source [id number] 12/12/2019 12:05:00 PM EDT [facility] Name Value Range Interpretation Code Description Data Radhika rce(s) Supporting Document(s) Hemoglobin A1c 5.3 % 4.8-5.6 [facility] Prediabetes: 5.7 - 6.4 Diabetes: >6.4 Glycemic control for adults with diabetes: <7.0 ID Date Data Source [id number] 12/12/2019 06:06:00 AM EDT [facility] Name Value Range Interpretation Code Description Data Radhika rce(s) Supporting Document(s) Cholesterol, Total 143 mg/dL 100-199 [facility] Triglycerides 200 mg/dL 0-149 Above high normal [facility] HDL Cholesterol 36 mg/dL >39 Below low normal [facility] VLDL Cholesterol Egrald 40 mg/dL 5-40 [facility] LDL Cholesterol Calc 67 mg/dL 0-99 [facility] ID Date Data Source [id number] 12/01/2019 02:39:00 PM EDT [facility] Name Value Range Interpretation Code Description Data Radhika rce(s) Supporting Document(s) Neutrophils % 73.2 % 36.0-66.0 [facility] Lymph % 8.5 % 24.0-44.0 [facility] [place] % 14.8 % 0.0-5.0 [facility] Baso % 0.8 % 0.0-1.0 [facility] Eos % 2.2 % 0.0-3.0 [facility] Lymph # 0.3 10 1.5-5.0 [facility] Immature Granulocyte % 0.5 % 0-3.0 [facility] ([facility] Neutrophils # 2.7 10 1.5-8.5 [facility] [place] # 0.5 10 0.0-0.8 [facility] Eos # 0.1 10 0.0-0.5 [facility] Baso # 0.0 10 0.0-0.2 [facility] ID Date Data Source [id number] 12/01/2019 02:39:00 PM EDT [facility] ([facility] [...] [facility] ID Date Data Source [id number] 11/17/2019 02:42:00 PM EDT [facility] ([facility] Name Value Range Interpretation Code Description Data Radhika rce(s) Supporting Document(s) Carcinoembryonic Ag [Mass/volume] in Serum or Plasma 1.0 ng/mL [facility] THE CEA ASSAY IS PERFORMED ON THE Corhythm BY CHEMILUMINESCENCE AND SHOULD NOT BE COMPARED INTERCHANGEABLY WITH OTHER METHODS. IT SHOULD NOT BE USED ALONE A SCREENING TEST OR DIAGNOSIS FOR THE PRESENCE OR ABSENCE OF MALIGNANT DISEASE. PREDICTIONS OF DISEASE RECURRENCE SHOULD NOT BE BASED SOLELY ON VALUES OBTAINED FROM SERIAL PATIENT SERUM VALUES. ID Date Data Source [id number] 11/17/2019 02:42:00 PM EDT [facility] ([facility] [...] Little GFR Left</content>
<content>ESRD GFR <15 on BILINGUAL MEDICAL RECEPTIONIST</content>
<content></content> Creatinine For GFR 0.80 mg/dL 0.55-1.30 [facility] ([facility] Potassium Serum 4.1 meq/L 3.5-5.1 [facility] Chloride Level 109 meq/L 98-107 [...] [facility] Albumin/Globulin Ratio 1.03 1.00-1.93 [facility] ([facility] ID Date Data Source [id number] 11/17/2019 02:42:00 PM EDT [facility] ([facility] Name Value Range Interpretation Code Description Data Radhika rce(s) Supporting Document(s) [place] % 13.6 % 0.0-5.0 MED[facility] (Anitha summers [...] 10 1.5-8.5 [facility] ([facility] [place] # 0.6 10 0.0-0.8 [facility] ([facility] Eos # 0.1 10 0.0-0.5 [facility] Lymph # 0.2 10 1.5-5.0 [facility] Baso # 0.0 10 0.0-0.2 [facility] ID Date Data Source [id number] 11/17/2019 02:42:00 PM EDT [facility] ([facility]itha Gamez [...] [facility] ID Date Data Source [id number] 10/23/2019 11:09:00 AM EDT [facility] ([facility] Name Value Range Interpretation Code Description Data Radhika rce(s) Supporting Document(s) Urine Culture Laboratory test result [facility] ([facility] FULL REPORT IN LAB NOTES ([facility] and [facility] ). NO GROWTH ID Date Data Source [id number] 10/23/2019 11:09:00 AM EDT [facility] ([facility] Name Value Range Interpretation Code Description Data Radhika rce(s) Supporting Document(s) Appearance, Urine Laboratory test result [facility] ([facility] Color, Urine Laboratory test result [facility] ([facility] Specific [place] Urine Auto 1.023 1.002-1.035 [facility] ([facility]itha Gamez [...] [facility] ID Date Data Source [id number] 10/23/2019 10:18:00 AM EDT [facility] ([facility] Name Value Range Interpretation Code Description Data Radhika rce(s) Supporting Document(s) Ferritin [Mass/volume] in Serum or Plasma 6 ng/mL 8-252 [facility] ID Date Data Source [id number] 10/23/2019 10:18:00 AM EDT [facility] ([facility] Name Value Range Interpretation Code Description Data Radhika rce(s) Supporting Document(s) Iron (Fe) 47 ug/dL 50-170 [facility] Total Iron Binding Capacity 474 ug/dL 250-450 [facility] Percent Saturation 9.9 % 13.2-45.0 [facility] ([facility] ID Date Data Source [id number] 10/23/2019 10:18:00 AM EDT [facility] ([facility] Name Value Range Interpretation Code Description Data [facility](s) Supporting Document(s) Glucose, Fasting 171 mg/dL 70-100 [...] Little GFR Left</content>
<content>ESRD GFR <15 on BILINGUAL MEDICAL RECEPTIONIST</content>
<content></content> Sodium Level 139 meq/L 136-145 MED[facility] [...] [facility] Albumin/Globulin Ratio 0.95 1.00-1.93 [facility] ([facility] ID Date Data Source [id number] 10/23/2019 10:18:00 AM EDT [facility] ([facility] Name Value Range Interpretation Code Description Data Radhika rce(s) Supporting Document(s) Neutrophils % 73.8 % 36.0-66.0 [facility] ([facility] Eos % 1.5 % 0.0-3.0 [facility] ([facility] Lymph % 14.0 % 24.0-44.0 [facility] ([facility] [place] % 10.0 % 0.0-5.0 [facility] Immature Granulocyte % 0.2 % 0-3.0 [facility] ([facility] Baso % 0.5 % 0.0-1.0 [facility] ([facility] Neutrophils # 3.0 10 1.5-8.5 [facility] ([facility] Eos # 0.1 10 0.0-0.5 [facility] ([facility] [place] # 0.4 10 0.0-0.8 [facility] ([facility] Lymph # 0.6 10 1.5-5.0 [facility] ([facility] Baso # 0.0 10 0.0-0.2 [facility] ([facility] ID Date Data Source [id number] 10/23/2019 10:18:00 AM EDT [facility] ([facility]itha Gamez [...] Cell % 0.0 % 0-0 [facility] ([facility] ID Date Data Source [id number] 09/08/2019 03:19:00 PM EST [facility] ([facility] Name Value Range Interpretation Code Description Data Radhika rce(s) Supporting Document(s) Carcinoembryonic Ag [Mass/volume] in Serum or Plasma 0.8 ng/mL [facility] THE CEA ASSAY IS PERFORMED ON THE Corhythm BY CHEMILUMINESCENCE AND SHOULD NOT BE COMPARED INTERCHANGEABLY WITH OTHER METHODS. IT SHOULD NOT BE USED ALONE A SCREENING TEST OR DIAGNOSIS FOR THE PRESENCE OR ABSENCE OF MALIGNANT DISEASE. PREDICTIONS OF DISEASE RECURRENCE SHOULD NOT BE BASED SOLELY ON VALUES OBTAINED FROM SERIAL PATIENT SERUM VALUES. ID Date Data Source [id number] 09/08/2019 03:19:00 PM EST [facility] ([facility] [...] Little GFR Left</content>
<content>ESRD GFR <15 on BILINGUAL MEDICAL RECEPTIONIST</content>
<content></content> Creatinine For GFR 0.96 mg/dL 0.55-1.30 [...] [facility] ID Date Data Source [id number] 09/08/2019 03:19:00 PM EST [facility] ([facility] Name Value Range Interpretation Code Description Data Radhika rce(s) Supporting Document(s) Lymph % 22.6 % 24.0-44.0 [facility] ([facility] Neutrophils % 61.5 % 36.0-66.0 [facility] ([facility] Eos % 3.3 % 0.0-3.0 [facility] ([facility] Baso % 0.6 % 0.0-1.0 [facility] ([facility] [place] % 11.8 % 0.0-5.0 [facility] ([facility] Neutrophils # 3.1 10 1.5-8.5 [facility] ([facility] Lymph # 1.2 10 1.5-5.0 [facility] ([facility] Immature Granulocyte % 0.2 % 0-3.0 [facility] ([facility] Baso # 0.0 10 0.0-0.2 [facility] ([facility] [place] # 0.6 10 0.0-0.8 [facility] ([facility] Eos # 0.2 10 0.0-0.5 [facility] ([facility] ID Date Data Source [id number] 09/08/2019 03:19:00 PM EST [facility] (Anitha Gamez [...] [facility] ID Date Data Source [id number] 08/24/2019 03:48:00 PM EST [facility] ([facility] Name Value Range Interpretation Code Description Data Rahdika rce(s) Supporting Document(s) Carcinoembryonic Ag [Mass/volume] in Serum or Plasma 0.6 ng/mL [facility] ([facility] THE CEA ASSAY IS PERFORMED ON THE Tapastreet[employer] BY CHEMILUMINESCENCE AND SHOULD NOT BE COMPARED INTERCHANGEABLY WITH OTHER METHODS. IT SHOULD NOT BE USED ALONE A SCREENING TEST OR DIAGNOSIS FOR THE PRESENCE OR ABSENCE OF MALIGNANT DISEASE. PREDICTIONS OF DISEASE RECURRENCE SHOULD NOT BE BASED SOLELY ON VALUES OBTAINED FROM SERIAL PATIENT SERUM VALUES. ID Date Data Source [id number] 08/14/2019 12:46:00 PM EST [facility] (Anitha Gamez [...] to the patient, ID Date Data Source [id number] 08/14/2019 12:46:00 PM EST [facility] (Anitha Gamez [...] to the patient, ID Date Data Source [id number] 08/14/2019 12:46:00 PM EST [facility] (Anitha Gamez [...] Blood by Automated count 0 % [facility] ([facility] A courtesy copy of [...] to the patient, ID Date Data Source [id number] 08/15/2019 07:05:00 AM EST [facility] Name Value [...] 0.0-0.1 [facility] ID Date Data Source [id number] 08/15/2019 08:07:00 AM EST [facility] Name Value [...] IU/L 0-32 [facility] ID Date Data Source [id number] 08/15/2019 08:07:00 AM EST [facility] Name Value Range Interpretation Code Description Data Radhika rce(s) Supporting Document(s) Iron Bind.Cap.(TIBC) 420 ug/dL 250-450 [facility] UIBC 392 ug/dL 118-369 Above high normal [facility] Iron 28 ug/dL 27-139 [facility] Iron Saturation 7 % 15-55 Below lower panic limits [facility] ID Date Data Source [id number] 08/06/2019 11:44:00 AM EST [facility] ([facility] Name Value Range Interpretation Code Description Data Radhika rce(s) Supporting Document(s) Packed Cells Laboratory test result [facility] ([facility] TRANSFUSED PRODUCT: PACKED CELLS COUNT: 1 ID Date Data Source [id number] 08/06/2019 11:44:00 AM EST [facility] ([facility] Name Value Range Interpretation Code Description Data Radhika rce(s) Supporting Document(s) Ferritin [Mass/volume] in Serum or Plasma 4 ng/mL 8-252 [facility] ([facility] ID Date Data Source [id number] 08/06/2019 11:44:00 AM EST [facility] ([facility] Name Value Range Interpretation Code Description Data Radhika rce(s) Supporting Document(s) Iron (Fe) 8 ug/dL 50-170 [facility] ([facility] Percent Saturation 1.7 % 13.2-45.0 [facility] (Tyrone [facility] Total Iron Binding Capacity 480 ug/dL 250-450 [facility] ([facility] ID Date Data Source [id number] 08/06/2019 11:44:00 AM EST [facility] ([facility] Name Value Range Interpretation Code Description Data Radhika rce(s) Supporting Document(s) Blood Type Laboratory test result [facility] ([facility] AB Screen (Indirect Farooq)Vis Laboratory test result [facility] ([facility] ID Date Data Source [id number] 08/06/2019 11:44:00 AM EST [facility] (Anitha Gamez [...] Little GFR Left</content>
<content>ESRD GFR <15 on [employer] RECEPTION[employer]</content>
<content></content> Potassium Serum 3.8 meq/L 3.5-5.1 [facility] ([facility] Carbon Dioxide Level 21 meq/L 21-32 [facility] (Srinivas [facility] Chloride Level 111 meq/L 98-107 [facility] ([facility] Anion Gap 10 meq/L 8-16 [facility] ([facility] Calcium Level 8.5 mg/dL 8.8-10.2 [facility] ([facility] ID Date Data Source [id number] 08/06/2019 11:44:00 AM EST [facility] (Anitha Gamez [...] % 36.0-66.0 [facility] ([facility] [place] % 10.0 % 0.0-5.0 [facility] (Anitha summers [...] 10 1.5-5.0 [facility] ([facility] [place] # 0.8 10 0.0-0.8 [facility] ([facility] Baso # 0.0 10 0.0-0.2 [facility] ([facility] Eos # 0.0 10 0.0-0.5 [facility] ([facility] ID Date Data Source [id number] 08/04/2019 11:03:00 AM EST [facility] (Anitha Gamez [...] [facility] ID Date Data Source [id number] 08/04/2019 11:03:00 AM EST [facility] (Anitha Gamez [...] [facility] ID Date Data Source [id number] 08/05/2019 08:07:00 AM EST [facility] Name Value [...] 0.0-0.1 [facility] ID Date Data Source [id number] 08/05/2019 08:07:00 AM EST [facility] Name Value [...] intake 06/23/2020 12:00:00 AM EST Never completed [facility] Smoking 06/23/2020 12:00:00 AM EST Never smoker completed Never s moker [facility] Smoking 06/16/2020 12:00:00 AM EST Never Smoked A Pipe complet ed Never Smoked A Pipe [facility] ([facility] Vital Signs ID Date Data Source UNK Name Value Range Interpretation Code Description Data Source(s) Diastolic blood pressure 70 mm[Hg] 70 mm[Hg] [facility] Systolic blood pressure 130 mm[Hg] 130 mm[Hg] [facility] Oxygen saturation in Arterial blood by Pulse oximetry 98 % 98 % [facility] Body mass index (BMI) [Ratio] 22.30 kg/m2 22.30 kg/m2 [facility] Body weight 53.[address] [facility] Body height 154.[address] [facility] Heart rate 68 /min 68 /min [facility] Body mass index (BMI) [Ratio] 22.0 kg/m2 22.0 k g/m2 [facility] ([facility] [place] body weight 105 [lb_av] 105 [lb_av] [facility] [...] Systolic blood pressure 138 mm[Hg] 138 mm[Hg[facility] Diastolic blood pressure 79 mm[Hg] 79 mm[Hg] [facility] ([facility] Systolic blood pressure 151 mm[Hg] 151 mm[Hg] [facility] Body mass index (BMI) [Ratio] 22.7 kg/m2 22.7 k g/m2 [facility] ([facility] [place] body weight 105 [lb_av] 105 [lb_av] [facility] [...] k g/m2 [facility] ([facility] [place] body weight 105 [lb_av] 105 [lb_av] [facility] [...] Systolic blood pressure 138 mm[Hg] 138 mm[Hg] [facility] Diastolic blood pressure 82 mm[Hg] 82 mm[Hg] [facility] ([facility] Systolic blood pressure 142 mm[Hg] 142 mm[Hg] [facility] Body weight 58.061 kg 58.061 kg [facility] ([facility], ) Body mass index (BMI) [Ratio] 23.8 kg/m2 23.8 k g/m2 [facility] ([facility], ) Body weight 128.00 [lb_av] 128.00 [lb_av] [facility] T ([facility]) Body height 61.5 [in_i] 61.5 [in_i] [facility] ([facility]) 5'1.50" Diastolic blood pressure 64 mm[Hg] 64 mm[Hg] [facility] Systolic blood pressure 118 mm[Hg] 118 mm[Hg] [facility] Body mass index (BMI) [Ratio] 24.6 kg/m2 [...] Systolic blood pressure 136 mm[Hg] 136 mm[Hg] [facility] Body mass index [...] Data Source (s) Lancets (ONETOUCH DELICA PLUS [id number]) [facility] 06/05/2020 12:00:[address] [facility] ONETOUCH ULTRA test strip 04/30/2020 12:00:[address] [facility] potassium chloride SA (K-DUR,KLOR-CON) 20 MEQ tablet 020 12:00:[address] [facility] Furosemide 20 MG Oral Tablet 03/24/2020 12:00:[address] [facility] 24 HR metoprolol succinate 50 MG Extended Release Oral Tablet 03/07/2020 12:00:00 AM EDT [facility] 24 HR Diltiazem Hydrochloride 240 MG Extended Release Oral Capsule 03/07/2020 12:00:00 AM EDT [facility] apixaban 2.5 MG Oral Tablet 02/23/2020 12:00:[address] [facility] Digoxin 0.125 MG Oral Tablet 02/23/2020 12:00:[address] [facility] Pantoprazole Sodium 40 MG 02/11/2020 01:00:00 AM [facility] Eliquis 2.5 MG 02/11/2020 01:00:00 AM EDT [facility] DilTIAZem CD 240 MG 02/11/2020 01:00:00 AM EDT [facility]) Metoprolol Succinate ER 50 MG 02/11/2020 01:00:00 AM EDT [facility]) Digoxin 250 MCG 02/11/2020 01:00:00 AM EDT [facility]) Acetaminophen ER 650 MG 02/11/2020 01:00:00 AM EDT [facility]) Citracal + D 250-200 MG-UNIT 02/11/2020 01:00:00 AM EDT [facility] ([facility]) Glimepiride 1 MG 02/11/2020 01:00:00 AM EDT [facility] ([facility]) MetFORMIN HCl 500 MG 02/11/2020 01:00:00 AM EDT [facility] ([facility]) Atorvastatin Calcium 20 MG 02/11/2020 01:00:00 AM EDT [facility] ([facility]) Zaditor 0.025 % 02/11/2020 01:00:00 AM EDT [facility] ([facility]) Ketotifen 0.25 MG/ML Ophthalmic Solution [facility] pantoprazole 40 MG Delayed Release Oral Tablet [facility]
[2020-09-06] MEDS ORDERED: hydrALAZINE 20MG/ML 1ML VIAL (J0360 PER 20MG) IV STA (12:48)
[2020-09-06] MEDS ORDERED: FUROSEMIDE 20 MG TAB PO PRN (13:00)
[2020-09-06 13:10] VITALS: BP 195/88
[2020-09-06 13:13] LABS: RSV AMPLIFICATION NEGATIVE (NEGATIVE)
[2020-09-06 16:49] LABS: HEMATOCRIT 29.4 % (36.0-47.0); HEMOGLOBIN 8.7 g/dl (12.0-15.5)
--- NOTE | 2020-09-06 16:50 | ECGEPIP ---
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
[2020-09-06] MEDS ORDERED: HumaLOG INSULIN (NovoLOG) PER UNIT SC SCH ×2 (17:30→21:00)
[2020-09-06 18:10] VITALS: BP 167/80
[2020-09-06] MEDS ORDERED: APIXABAN 2.5 MG TAB (ELIQUIS) PO SCH (21:00)
[2020-09-06] MEDS ORDERED: ATORVASTATIN 20 MG TAB PO SCH (21:00)
[2020-09-07] MEDS ORDERED: DIGOXIN 0.125 MG TAB PO SCH (09:00)
[2020-09-07] MEDS ORDERED: METOPROLOL SUCC (TopROL XL) 50MG **XL** TAB PO SCH (09:00)
== END 2020-09-06 18:35 | disposition home or self-care (01) ==
LOC: M ED 10:07 → M ED INP 10:08
PROVIDERS: ADMIT Family Medicine; ATTEND Family Medicine
DX: D50.9 Iron deficiency anemia, unspecified (principal); C18.0 Malignant neoplasm of cecum; I10 Essential (primary) hypertension; E11.9 Type 2 diabetes mellitus without complications; E78.5 Hyperlipidemia, unspecified; I48.91 Unspecified atrial fibrillation; Z79.01 Long term (current) use of anticoagulants
CPT/HCPCS: 80047; 80076; 80162; 83690; 85014; 85018; 85025; 85610; 85730; 86850; 86900; 86901; 87631; 93005; 93041; 96361; 96374; 99285; G0378; J0360

== ENCOUNTER → 2020-10-19 | Outpatient (CLI) | payer MEDICARE, OTHER ==
[~2020-10-19] MED LIST changes: +ACET650T61 PO; +ALEN70TA82 PO; +CITRTAB18 PO; +COLA100C5 PO; +DILT240C82 PO; -DOCUSATE SODIUM 100MG CAPSULE PO SCH; +OLOP2.5D3 OU; -VITA-157 PO; +VITAE40CA PO
== END ==
LOC: M LABSMTC 10:02
PROVIDERS: ATTEND Anesthesiology
DX: Z01.812 Encounter for preprocedural laboratory examination (principal); Z20.822 Contact with and (suspected) exposure to COVID-19

== ENCOUNTER 2020-10-24 08:32 | Day surgery (SDC) | payer MEDICARE, OTHER ==
[~2020-10-24] VITALS: Ht 154.9 cm; Wt 48.5 kg
[~2020-10-24 08:32] MED LIST changes: +NS 1,000 ML IV ONE
[2020-10-24] MEDS ORDERED: propofoL 200 MG/20 ML VIAL As Ordered ONE (10:15)
[2020-10-24] MEDS ORDERED: LIDOCAINE 2% 100MG/5ML SDV (FOR ANES.) As Ordered ONE (10:15)
--- NOTE | 2020-10-24 10:29 | ROOR ---
Patient Name: Meron Rico Procedure Date: 10/24/2020 9:32 AM Date of : 1940 Age: 79 Room: [facility] Gender: Female Note Status: Finalized Procedure: Colonoscopy Indications: Hematochezia, Acute post hemorrhagic anemia Providers: Jeff Crmaer MD Referring MD: Naila Lambert Md Requesting Provider: Medicines: Monitored Anesthesia Care Complications: No immediate complications. Procedure: Pre-Anesthesia Assessment: - Prior to the procedure, a History and Physical was performed, and patient medications and allergies were reviewed. The patient is competent. The risks and benefits of the procedure and the sedation options and risks were discussed with the patient. All questions were answered and informed consent was obtained. Patient identification and proposed procedure were verified by the physician, the nurse and the anesthesiologist in the procedure room. Mental Status Examination: alert and oriented. Prophylactic Antibiotics: The patient does not require prophylactic antibiotics. Prior Anticoagulants: The patient has taken no previous anticoagulant or antiplatelet agents. ASA Grade Assessment: II - A patient with mild systemic disease. After reviewing the risks and benefits, the patient was deemed in satisfactory condition to undergo the procedure. The anesthesia plan was to use monitored anesthesia care (MAC). Immediately prior to administration of medications, the patient was re-assessed for adequacy to receive sedatives. The heart rate, respiratory rate, oxygen saturations, blood pressure, adequacy of pulmonary ventilation, and response to care were monitored throughout the procedure. The physical status of the patient was re-assessed after the procedure. The Colonoscope was introduced through the sigmoid colostomy and advanced to the surgical stoma. The colonoscopy was performed without difficulty. The patient tolerated the procedure well. The quality of the bowel preparation was good. The terminal ileum was photographed. Scope insertion time was 2 minutes. Scope withdrawal time was 9 minutes. The total duration of the procedure was 11 minutes. The Colonoscope was introduced through the sigmoid colostomy and advanced to the ileocolonic anastomosis. 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 This was characterized by healthy appearing mucosa. Regaular colonoscope could not be passes for an enteroscope is used to complete the procedure. The stenosis diameter is around 8 mm. Biopsies were taken with a cold forceps for histology. Verification of patient identification for the specimen was done by the physician and nurse using the patient's name, date and medical record number. Estimated blood loss was minimal. There was evidence of a prior functional end-to-end ileo-colonic anastomosis in the ascending colon. This was patent and was characterized by congestion, erythema and inflammation. The anastomosis was traversed. Multiple small and large-mouthed diverticula were found from surgical stoma to descending colon. There was no evidence of diverticular bleeding. A diffuse area of mucosa in the best-terminal ileum was mildly erythematous. The perianal and digital examinations showed closed stump of 2cm (anal canal).. 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 Biopsied. - Patent functional end-to-end ileo-colonic anastomosis, characterized by congestion, erythema and inflammation. - Mild diverticulosis from surgical stoma to descending colon. There was no evidence of diverticular bleeding. - Erythematous mucosa in the best-terminal ileum. Recommendation: - Patient has a contact number available for emergencies. The signs and symptoms of potential delayed complications were discussed with the patient. Return to normal activities tomorrow. Written discharge instructions were provided to the patient. - High fiber diet. - Continue present medications. - Miralax 1 capful (17 grams) in 8 ounces of water PO daily. - Await pathology results. - Return to prior surgery office for evaluation for Colostomy stenosis at the next available appointment. - Check CBC, serum iron , transferrin and ferritin levels (fasting labs) in 2 months. - Return to GI clinic in 2 months. - Return to primary care physician. Procedure Code(s): --- Professional --- 95647, Colonoscopy through stoma; with biopsy, single or multiple Diagnosis Code(s): --- Professional --- Z98.0, Intestinal bypass and anastomosis status K63.89, Other specified diseases of intestine K92.1, Melena (includes Hematochezia) D62, Acute posthemorrhagic anemia K57.30, Diverticulosis of large intestine without perforation or abscess without bleeding CPT copyright 2019 [employer]. All rights reserved. The codes documented in this report are preliminary and upon criminal analyst review may be revised to meet current compliance requirements. Jeff Cramer MD Jeff Cramer MD 10/24/2020 10:29:22 AM Electronically signed by Jeff Cramer MD Number of Addenda: 0 Note Initiated On: 10/24/2020 9:32 AM Estimated Blood Loss: Estimated blood loss was minimal.
--- NOTE | 2020-10-24 10:39 | ROOR ---
Patient Name: Meron Rico Procedure Date: 10/24/2020 9:36 AM Date of : 1940 Age: 79 Room: [facility] Gender: Female Note Status: Finalized Procedure: Upper GI endoscopy Indications: Acute post hemorrhagic anemia Providers: Jeff Cramer MD Referring MD: Naila Lambert Md, Nadiya Bryan NP Requesting Provider: Medicines: Monitored Anesthesia Care Complications: No immediate complications. Procedure: Pre-Anesthesia Assessment: - Prior to the procedure, a History and Physical was performed, and patient medications and allergies were reviewed. The patient is competent. The risks and benefits of the procedure and the sedation options and risks were discussed with the patient. All questions were answered and informed consent was obtained. Patient identification and proposed procedure were verified by the physician, the nurse and the anesthesiologist in the procedure room. Mental Status Examination: alert and oriented. Airway Examination: normal oropharyngeal airway and neck mobility. Respiratory Examination: clear to auscultation. CV Examination: normal. Prophylactic Antibiotics: The patient does not require prophylactic antibiotics. Prior Anticoagulants: The patient has taken Eliquis (apixaban), last dose was 2 days prior to procedure. ASA Grade Assessment: II - A patient with mild systemic disease. After reviewing the risks and benefits, the patient was deemed in satisfactory condition to undergo the procedure. The anesthesia plan was to use minimal sedation / analgesia (anxiolysis). Immediately prior to administration of medications, the patient was re-assessed for adequacy to receive sedatives. The heart rate, respiratory rate, oxygen saturations, blood pressure, adequacy of pulmonary ventilation, and response to care were monitored throughout the procedure. The physical status of the patient was re-assessed after the procedure. The Endoscope was introduced through the mouth, and advanced to the second part of duodenum. The upper GI endoscopy was accomplished without difficulty. The patient tolerated the procedure well. Findings: LA Grade A (one or more mucosal breaks less than 5 mm, not extending between tops of 2 mucosal folds) esophagitis with no bleeding was found 37 to 38 cm from the incisors. Biopsies were taken with a cold forceps for histology. Verification of patient identification for the specimen was done by the physician and nurse using the patient's name, date and medical record number. Estimated blood loss was minimal. Scattered mild inflammation characterized by erythema and granularity was found in the gastric antrum. Biopsies were taken with a cold forceps for Helicobacter pylori testing. The duodenal bulb and second portion of the duodenum were normal. Impression: - LA Grade A reflux esophagitis. Rule out Newell's esophagus. Biopsied. - Gastritis. Biopsied. - Normal duodenal bulb and second portion of the duodenum. Recommendation: - Patient has a contact number available for emergencies. The signs and symptoms of potential delayed complications were discussed with the patient. Return to normal activities tomorrow. Written discharge instructions were provided to the patient. - High fiber diet. - Continue present medications. - Resume Eliquis (apixaban) at prior dose tomorrow. Refer to primary physician for further adjustment of therapy. - Await pathology results. - Use Prilosec (omeprazole) 40 mg PO daily for 6 weeks. - Follow the recommendations as per the other procedure note. - Return to GI clinic in 2 months. Procedure Code(s): --- Professional --- 75807, Esophagogastroduodenoscopy, flexible, transoral; with biopsy, single or multiple Diagnosis Code(s): --- Professional --- K21.0, Gastro-esophageal reflux disease with esophagitis K29.70, Gastritis, unspecified, without bleeding D62, Acute posthemorrhagic anemia CPT copyright 2019 [employer]. All rights reserved. The codes documented in this report are preliminary and upon ep specialist review may be revised to meet current compliance requirements. Jeff Cramer MD Jeff Cramer MD 10/24/2020 10:38:57 AM Electronically signed by Jeff Cramer MD Number of Addenda: 0 Note Initiated On: 10/24/2020 9:36 AM Estimated Blood Loss: Estimated blood loss was minimal.
[2020-10-24 10:49] VITALS: BP 159/88
== END 2020-10-24 10:51 | disposition home or self-care (01) ==
LOC: M OPP 08:32
PROVIDERS: ATTEND Internal Medicine Gastroenterology
DX: K63.89 Other specified diseases of intestine (principal); Z98.0 Intestinal bypass and anastomosis status; K57.30 Diverticulosis of large intestine without perforation or abscess without bleeding; K92.1 Melena; D62 Acute posthemorrhagic anemia; K21.9 Gastro-esophageal reflux disease without esophagitis; K29.70 Gastritis, unspecified, without bleeding; I48.91 Unspecified atrial fibrillation; E11.9 Type 2 diabetes mellitus without complications; I10 Essential (primary) hypertension; Z79.899 Other long term (current) drug therapy

== ENCOUNTER → 2020-11-21 | Outpatient (CLI) | payer MEDICARE, OTHER ==
[~2020-11-21] MED LIST changes: +GASTROGRAFIN SOLUTION 30ML (Q9963) As Ordered ONE; +ISOVUE-370 76% 100ML VIAL As Ordered ONE; +MIRA3350 PO; -NS 1,000 ML IV ONE; +OMEP40CA97 PO
--- NOTE | 2020-11-21 17:09 | REP ---
INDICATION: RECTAL CA. COMPARISON: None. TECHNIQUE: CT chest performed following the intravenous administration of 100 cc of Isovue 370. Sagittal and coronal reconstruction images are performed. FINDINGS: Lungs: There are scattered atelectatic changes of the right lung primarily inferiorly. No pulmonary nodule is seen in either lung. Mediastinum: No adenopathy. Angelina: No adenopathy. Axilla: No adenopathy. Pleura: There is a moderate right pleural effusion. There is a small left pleural effusion. Heart: There is mild cardiomegaly. Thoracic aorta: No aneurysm or dissection. Visualized osseous structures: There are degenerative changes of the spine without compression deformity. IMPRESSION: New moderate right pleural effusion with mild atelectatic changes in the right lung. New small left pleural effusion. No pulmonary nodule or adenopathy. <Electronically signed by Chirag Hanna > 11/21/20 [id number]
--- NOTE | 2020-11-21 17:13 | REP ---
INDICATION: RECTAL CA. COMPARISON: Multiple the latest 12/08/2019 TECHNIQUE: Standard helical technique after the intravenous administration of 100 cc Isovue 370 and oral bowel preparatory contrast administration. FINDINGS: See report on CT chest made today for description of lung base findings. There is pericholecystic edema. There is cholelithiasis. There is mild intrahepatic ductal dilatation. This all represents change from the prior exam. There are no enhancing hepatic lesions. The spleen, pancreas, and adrenal glands are unchanged and again seen to be within normal limits. There are bilateral renal parapelvic cysts and renal cysts status quo. No hydronephrosis or hydroureter has developed. There is an enterostomy site on the left anteriorly. This has been placed since the last exam. There is no intestinal obstruction. There is no significant change in appearance of the abdominal aorta or para-aortic regions.. There is a moderate to large amount of free pelvic fluid. There is no evidence of free intraperitoneal air. There postop changes seen in the pelvis representing a change from the prior exam. There is mild diffuse subcutaneous edema. There is no change in the osseous structures. IMPRESSION: There is pericholecystic edema and free fluid in the pelvis which has developed since the last exam. There is cholelithiasis which also represents a change from the prior exam. There is mild intrahepatic ductal dilatation which needs follow-up. Next impression other findings as described above. <Electronically signed by Nick Guo > 11/21/20 [id number]
== END ==
LOC: M RAD 14:47
PROVIDERS: ATTEND Internal Medicine Medical Oncology
DX: C20 Malignant neoplasm of rectum (principal); K80.20 Calculus of gallbladder without cholecystitis without obstruction; R18.8 Other ascites
CPT/HCPCS: 71260; 74177; Q9963; Q9967

== ENCOUNTER 2020-11-25 15:46 | Inpatient (IN) | payer MEDICARE, OTHER ==
[2020-11-25] VITALS (10 sets, daily range): BP systolic 138–187; BP diastolic 71–89
[~2020-11-25] VITALS: Ht 154.9 cm; Wt 48.2 kg
[~2020-11-25 15:46] MED LIST changes: -GASTROGRAFIN SOLUTION 30ML (Q9963) As Ordered ONE; -ISOVUE-370 76% 100ML VIAL As Ordered ONE
[2020-11-25 16:51] LABS: MEAN CORPUSCULAR HGB CONC 29.5 g/dl (32.0-36.5); MEAN CORPUSCULAR VOLUME 108.6 fl (80.0-96.0); PLATELET COUNT, AUTOMATED 346 10^3/uL (150-450); RED BLOOD COUNT 1.75 10^6/uL (4.00-5.40); WHITE BLOOD COUNT 4.4 10^3/uL (4.0-10.0)
[2020-11-25 16:53] LABS: HEMOGLOBIN 5.6 g/dl (12.0-15.5)
[2020-11-25 17:01] LABS: INR 1.29; PROTHROMBIN TIME 16.4 SECONDS (12.5-14.3)
[2020-11-25 17:02] LABS: PARTIAL THROMBOPLASTIN TIME 33.4 SECONDS (24.2-38.5)
--- NOTE | 2020-11-25 17:08 | REP ---
INDICATION: dyspnea on exertion. COMPARISON: CT 11/21/2020. TECHNIQUE: Single portable AP view of the chest was performed. FINDINGS: There is mild cardiomegaly. Pulmonary vasculature is prominent, and there are increased interstitial markings, right lung more so than the left, suggesting interstitial edema. There is a small right pleural effusion. There is mild alveolar infiltrate inferiorly on the right. There is mild calcification of the thoracic aorta. IMPRESSION: Mild cardiomegaly with vascular congestion and diffuse interstitial infiltrates, right greater than left.. Small right effusion with alveolar infiltrate in the right base.I suspect these findings represent asymmetric pulmonary edema. <Electronically signed by Chirag Hanna > 11/25/20 [id number]
[2020-11-25 17:23] LABS: ALT/SGPT 15 U/L (12-78); BILIRUBIN,TOTAL 0.6 MG/DL (0.2-1.0); BLOOD UREA NITROGEN 22 MG/DL (7-18); CALCIUM LEVEL 8.1 MG/DL (8.8-10.2); CARBON DIOXIDE LEVEL 23 MEQ/L (21-32); CHLORIDE LEVEL 111 MEQ/L (98-107); CK-MB VALUE MASS 1.3 NG/ML (<3.6); CPK CREATINE PHOSPHOKINASE 60 U/L (26-192); CREATININE FOR GFR 0.68 MG/DL (0.55-1.30); GLOMERULAR FILTRATION RATE > 60.0 (>32); GLUCOSE, FASTING 110 MG/DL (70-100); MB/CK RELATIVE INDEX 2.17 (< OR =4); NT-PRO BNP 1795 PG/ML (<450); POTASSIUM SERUM 4.7 MEQ/L (3.5-5.1); SODIUM LEVEL 140 MEQ/L (136-145); TROPONIN I < 0.02 NG/ML (< 0.10)
[2020-11-25] MEDS ORDERED: PANTOPRAZOLE 40MG VIAL (C9113 PER 1) IV ONE (17:25)
[2020-11-25] MEDS ORDERED: FUROSEMIDE 40MG/4ML VIAL (J1940) IV ONE (17:30)
[2020-11-25] MEDS ORDERED: GLUCAGON INJ 1MG VIAL SC PRN (17:40)
[2020-11-25] MEDS ORDERED: DEXTROSE 50% 50 ML SYRINGE IV PRN (17:40)
[2020-11-25] MEDS ORDERED: GLUCOSE 4GM CHEW TABLET PO PRN (17:40)
[2020-11-25] MEDS: SUCRALFATE SUSP 1GM/10ML UD PO SCH ×2 (18:00→23:02)
[2020-11-25] MEDS: HumaLOG INSULIN (NovoLOG) PER UNIT SC SCH ×2 (18:00→23:04)
--- NOTE | 2020-11-25 19:37 | HPEPDOC ---
[facility] Medical History & Physical Date of Admission November 25, 2020 Date of Service: November 25, 2020 History and Physical CHIEF COMPLAINT: Shortness of breath and weakness for the past 2 weeks, worse over the past 2 days HISTORY OF PRESENT ILLNESS: 80-year-old female with history of hypertension, anr-mpppvdc-xalxtxmbr diabetes, A. fib on chronic eliquis, dyslipidemia, rectal cecal cancer status post resection, tubal ligation, appendectomy, cataract surgery, excision of lipoma, presents to emergency room with complaints of g eneralized weakness and was sent by her bulk mail technician due to hemoglobin of 5.6. Patient denies bright red blood per rectum, melena, black tarry stools, coffee- ground emesis or hematemesis. No nausea, vomiting, diarrhea, abdominal pain. She complains of difficulty ambulating due to generalized weakness and worsening shortness of breath. Patient usually weighs 115 pounds, gained a few pounds this week but was generally losing weight since last year when she [id number] pounds. Appetite has been the same. . She has had increasing lower extremity edema, PND, orthopnea at home and could barely breathe walking 10 steps at home. She denied any palpitations, lightheadedness or dizziness and has been rate controlled with her atrial fibrillation has been chronically taking her eliquis. Hospitalist wa s asked to admit the patient for symptomatic anemia and congestive heart failure, new onset.She also complains of back pain between the shoulder blades. Without cough, fever, chills. 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 Galicia at [facility], hypertension, hyperlipidemia, diabetes, cataract surgery, tubal ligation, appendectomy, cataract surgery, excision of lipoma in the right shoulder SOCIAL HISTORY: , Retired. Denied alcohol, cigarette use, 4 grown children. 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 Full code. Phone number [phone] FAMILY HISTORY: . had lung cancer. Brother with lymphoma, maternal grandmother, kidney cancer ALLERGIES: Please see below. REVIEW OF SYSTEMS: 10 point review of systems negative aside from positive findings in HPI HOME MEDICATIONS: Please see below. PHYSICAL EXAMINATION: VITAL SIGNS: See below GENERAL APPEARANCE: Appears her stated age, no distress, able to speak in full sentences. Pale HEENT: No icterus or jaundice. Pale. Positive JVD, no thyromegaly, cervical lymphadenopathy, stridor. No use of respiratory accessory muscles CARDIOVASCULAR: S1, S2, irregularly irregular, not tachycardic LUNGS: Diminished breath sounds bilateral rales long term up ABDOMEN: No hepatosplenomegaly soft, nontender, nondistended, normoactive bowel sounds. Left lower quadrant colostomy with brown stool EXTREMITIES: 1-2+ pitting edema bilateral lower extremities LABORATORY DATA: See below. IMAGING: See below MICROBIOLOGY: Please see below. ASSESSMENT: 80-year-old female with history of hypertension, nwf-xcihstv-hcagpfsty diabetes, A. fib on chronic eliquis, dyslipidemia, rectal cecal cancer status post resec tion, tubal ligation, appendectomy, cataract surgery, excision of lipoma, presents to emergency room with complaints of generalized weakness and was sent by her bulk mail technician due to hemoglobin of 4. EGD by Dr. Garcia of 10/24/2020 showed LA grade a esophagitis with no bleeding. Gastritis with recommendations to take Prilosec 40 mg daily for 6 weeks. Colonoscopy on 10/24/[address] Chew, showed evidence of a patent but strictured colostomy in the sigmoid colon with healthy-appearing mucosa stenosis diameter was 8 mm at that time, there is a functional end-to-end ileocolonic anastomosis in the ascending colon. No evidence of diverticular bleeding Patient denies bright red blood per rectum, melena, black tarry stools, coffee-ground emesis or hematemesis. No nausea, vomiting, diarrhea, abdominal pain. She complains of difficulty ambulating due to generalized weakness and worsening shortness of breath. Patient usually weighs 115 pounds, gained a few pounds this week but was generally losing weight since last year when she [id number] pounds. Appetite has been the same. . She has had increasing lower extremity edema, PND, orthopnea at home and could barely breathe walking 10 steps at home. She denied any palpitations, lightheadedness or dizziness and has been rate controlled with her atrial fibrillation has been chronically taking her eliquis. Hospitalist was asked to admit the patient for symptomatic anemia and congestive heart failure, new onset. 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 Galicia at [facility], hypertension, hyperlipidemia, diabetes Plan: Patient will be admitted as an inpatient to the telemetry unit PCU for monitoring for chronic atrial fibrillation and new onset congestive heart failure for symptomatic anemia. She'll be given 4 units of RBC transfusion with Lasix given every 6 hourly. Strict I's and O's, daily weights and fluid restriction. Patient will be Nothing by mouth for now. Clear liquid diet in the morning due to history of esophagitis and gastritis with active symptomatic anemia. Baton X 40 IV twice a day and Carafate 1 g every 6 hourly. Monitor cardiac markers due to complains of back pain. Tylenol as needed for pain, and topical nitroglycerin for blood pressure while patient is nothing by mouth her IV metoprolol every 6 hourly until she resumes an oral diet in the morning. DVT prophylaxis with compression stockings. Obtain CT chest to further evaluate chest pain and back pain Vital Signs Vital Signs Date Time Temp Pulse Resp B/P (MAP) Pulse Ox O2 Delivery O2 Flow Rate FiO2 11/25/20 19:08 98.2 60 20 138/72 94 11/25/20 19:01 Room Air Laboratory Data Labs 24H Laboratory Tests 2 11/25/20 16:30: Nucleated Red Blood Cells % (auto) 1.6H, Anion Gap 6L, Glomerular Filtration Rate > 60.0, Calcium Level 8.1L, Total Bilirubin 0.6, Aspartate Amino Transf (AST/SGOT) 15, Alanine Aminotransferase (ALT/SGPT) 15, Alkaline Phosphatase 90, Total Creatine Kinase 60, Creatine Kinase MB 1.3, Creatine Kinase MB Relative Index 2.17, Troponin I < 0.02, AP-Ipo-C-Type Natriuretic Peptide 1795H, Total Protein 6.0L, Albumin 3.0L, Albumin/Globulin Ratio 1.0L 11/25/20 16:33: Prothrombin Time 16.4H, Prothromb Time International Ratio 1.29, Activated Partial Thromboplast Time 33.4 CBC/BMP Laboratory Tests 11/25/20 16:30 Microbiology Microbiology 11/25/20 Respiratory Virus Panel (PCR) ([place]) - Final, Complete Home Medications Scheduled Acetaminophen (Tylenol Arthritis) 650 Mg Tablet.er, 650 MG PO Q8HP Alendronate Sodium (Alendronate Sodium) 70 Mg Tablet, 70 MG PO Q7D in the morning, at least 30 minutes before the first food, beverage, or medication of the day Apixaban (Eliquis) 2.5 Mg Tablet, 2.5 MG PO BID Atorvastatin Calcium (Atorvastatin Calcium) 20 Mg Tablet, 20 MG PO QHS Calcium Citrate/Vitamin D3 (Citracal + D Maximum Caplet) 1 Each Tablet, 2 TAB PO DAILY Digoxin (Digoxin) 125 Mcg Tablet, 125 MCG PO DAILY Diltiazem HCl (Diltiazem 24Hr ER) 240 Mg Cap.er.24h, 240 MG PO DAILY Docusate Sodium (Colace) 100 Mg Capsule, 100 MG PO BID Glimepiride (Glimepiride) 1 Mg Tablet, 0.5 MG PO DAILY Metformin HCl (Metformin HCl) 500 Mg Tablet, 500 MG PO QPM Metoprolol Succinate (Metoprolol Succinate) 50 Mg Tab.er.24h, 50 MG PO DAILY Olopatadine HCl (Pataday) 0.2% 2.5ML Drops, 1 DROP OU BID Omeprazole (Omeprazole) 40 Mg Capsule.dr, 40 MG PO DAILY Polyethylene Glycol 3350 (Miralax) 119 Gm Powder, 17 GRAM PO DAILY for constipation dissolve in water Scheduled PRN Furosemide (Lasix) 20 Mg Tablet, 20 MG PO DAILY PRN for EDEMA Potassium Chloride (Potassium Chloride) 20 Meq Tab.er.prt, 20 MG PO DAILY PRN for EDEMA TAKE WITH FUROSEMIDE Allergies Coded Allergies: No Known Allergies (Unverified , 10/17/20) A-FIB/CHADSVASC A-FIB History Current/History of A-Fib/PAF?: Yes Current PO Anticoag Therapy: Yes Age/Risk Factor Scoring CHADSVASC: CHADSVASC Response (Comments) Value Age Risk Factor Age >/= 75 years old 2 Gender Risk Factor Female 1 Hx of CHF Yes 1 Hx of HTN Yes 1 Hx of Stroke/TIA/or VTE No 0 Hx of Diabetes Yes 1 Hx of Vascular Disease No 0 Total 6 Treatment Treatment ordered: NONE Reason Anticoagulant not given: Current bleeding LILY LOUISE MD November 25, 2020 19:31
[2020-11-25] MEDS: ACETAMINOPHEN 500 MG TAB PO SCH (21:07)
[2020-11-25] MEDS: METOPROLOL 5 MG/5 ML VIAL IV SCH (23:02)
[2020-11-25] MEDS: FUROSEMIDE 20MG/2ML VIAL (J1940) IV SCH (23:03)
[2020-11-25] MEDS: LIDOCAINE 5% (LIDODERM) PATCH TD SCH (23:05)
[2020-11-25] MEDS: NITROGLYCERIN 2% OINT 1 GM *U/D* PKT TOP SCH (23:55)
[2020-11-26] VITALS (14 sets, daily range): BP systolic 116–176; BP diastolic 56–84
[2020-11-26 04:51] LABS: HEMATOCRIT 34.9 % (36.0-47.0); MEAN CORPUSCULAR HEMOGLOBIN 31.1 pg (27.0-33.0); MEAN CORPUSCULAR HGB CONC 32.4 g/dl (32.0-36.5); MEAN CORPUSCULAR VOLUME 96.1 fl (80.0-96.0); PLATELET COUNT, AUTOMATED 283 10^3/uL (150-450); RED BLOOD COUNT 3.63 10^6/uL (4.00-5.40); WHITE BLOOD COUNT 4.3 10^3/uL (4.0-10.0)
[2020-11-26 04:52] LABS: HEMOGLOBIN 11.3 g/dl (12.0-15.5)
[2020-11-26 05:10] LABS: BLOOD UREA NITROGEN 17 MG/DL (7-18); CALCIUM LEVEL 8.1 MG/DL (8.8-10.2); CARBON DIOXIDE LEVEL 28 MEQ/L (21-32); CHLORIDE LEVEL 108 MEQ/L (98-107); CREATININE FOR GFR 0.66 MG/DL (0.55-1.30); GLOMERULAR FILTRATION RATE > 60.0 (>32); GLUCOSE, FASTING 102 MG/DL (70-100); MAGNESIUM LEVEL 1.9 MG/DL (1.8-2.4); POTASSIUM SERUM 3.8 MEQ/L (3.5-5.1); SODIUM LEVEL 141 MEQ/L (136-145)
[2020-11-26] MEDS: SUCRALFATE SUSP 1GM/10ML UD PO SCH ×3 (05:11→20:06)
[2020-11-26] MEDS: METOPROLOL 5 MG/5 ML VIAL IV SCH (05:12)
[2020-11-26] MEDS: HumaLOG INSULIN (NovoLOG) PER UNIT SC SCH (05:13)
[2020-11-26] MEDS: FUROSEMIDE 20MG/2ML VIAL (J1940) IV SCH (05:13)
[2020-11-26] MEDS: NITROGLYCERIN 2% OINT 1 GM *U/D* PKT TOP SCH (06:00)
[2020-11-26 06:25] LABS: HEMATOCRIT 35.2 % (36.0-47.0); HEMOGLOBIN 11.3 g/dl (12.0-15.5)
[2020-11-26] MEDS ORDERED: POTASSIUM CHLORIDE 10 MEQ SR TABLET PO PRN (07:15)
[2020-11-26] MEDS ORDERED: CARA1TAB6 PO (07:20)
[2020-11-26] MEDS ORDERED: PROTPAK PO (07:20)
[2020-11-26] MEDS ORDERED: LASI20TA3 PO (07:22)
[2020-11-26] MEDS: GLIMEPIRIDE 1 MG TABLET PO SCH ×2 (08:00→08:52)
[2020-11-26] MEDS ORDERED: SUCRALFATE SUSP 1GM/10ML UD PO ONE (08:00)
[2020-11-26 08:11] LABS: CK-MB VALUE MASS 1.4 NG/ML (<3.6); CPK CREATINE PHOSPHOKINASE 53 U/L (26-192); MB/CK RELATIVE INDEX 2.64 (< OR =4); NT-PRO BNP 1736 PG/ML (<450); TROPONIN I < 0.02 NG/ML (< 0.10)
--- NOTE | 2020-11-26 08:29 | IPN ---
PROGRESS NOTE DATE: 11/26/2020 SUBJECTIVE: Overnight the patient has had no issues with chest pain or pressure, the shortness of breath has improved. She has no nausea or vomiting, eager to eat. No bright-red blood per rectum, melena or black tarry stools. No lightheadedness or dizziness but has not gotten up this morning yet. She had received 4 units of RBC transfusion last night with resultant improvement in hemoglobin from 5.6 to 11.3 this morning. Output was documented at 500 ml from midnight. Current weight is 52.1 kilos. Blood pressure is 156/73. Patient is anxious to eat. Her back pain is improved. OBJECTIVE: VITAL SIGNS: Temperature 97.3, pulse 63, respiratory rate 18, blood pressure 156/73, 97% on room air. GENERAL: Patient is awake, alert and oriented x3, answering questions appropriately. HEAD/NECK: Mild elevation in JVD. No thyromegaly. Dry mucous membranes. LUNGS: Lungs are diminished. No wheezing or rales. HEART: S1 and S2, regular rate and rhythm. ABDOMEN: Soft, nontender and nondistended. EXTREMITIES: Trace to 1+ pitting edema bilaterally. LABORATORY DATA: CBC and metabolic panel have been reviewed; improvement on hemoglobin to 11.3 from admission of 5.6. Sodium 141, potassium 3.8, chloride 108, bicarbonate 28, BUN 17, creatinine 0.66, glucose of 102. ASSESSMENT AND PLAN: This is an 80-year-old female full code with a history of esophagitis, gastritis from previous EGD and colonoscopy by Dr. Cramer with synchronous rectal cancer with ascending colon cancer, cecal cancer, receiving neoadjuvant concurrent chemotherapy status post right hemicolectomy, open proctectomy and colostomy. Abdomen: Positive bowel sounds, soft, nontender. Left lower quadrant colostomy. Hypertension, hyperlipidemia, diabetes, admitted due to shortness of breath and weakness for the past two weeks, worse over the past two days, admitted for symptomatic anemia with a hemoglobin of 5.6 on arrival as well as congestive heart failure, new onset, unknown ejection fraction. CURRENT ISSUES: 1. Symptomatic anemia. Hemoglobin of 5.6 on admission, currently 11.3 after 4 units of RBC transfusion. 2. Suspected GI bleed in the setting of chronic anticoagulation with Apixaban. 3. Acute blood loss anemia. 4. History of esophagitis. 5. Gastritis. 6. New onset congestive heart failure, unknown ejection fraction. 7. Chronic atrial fibrillation. 8. Rectal cancer, ascending colon cancer, cecal cancer, receiving neoadjuvant chemotherapy with right hemicolectomy, open proctectomy and colostomy. 9. Uncontrolled hypertension. 10.Hyperlipidemia. 11.Diabetes. PLAN: Repeat chest x-ray, continue with Lasix until the patient is euvolemic, await 2-D echo report. Discharge home when she is euvolemic. H and H appears to be stable. She may be back on a 2 gram sodium consistent carbohydrate diet. Activity as tolerated. Fall precautions and change to p.o. medications today and resume home meds. MTDD
[2020-11-26] MEDS ORDERED: metOLazone 2.5 MG TAB PO ONE (08:30)
--- NOTE | 2020-11-26 08:46 | REP ---
INDICATION: chf check resolution.. COMPARISON: 11/25/2020. TECHNIQUE: Single portable AP view of the chest was performed. FINDINGS: There are again findings of cardiomegaly, vascular congestion and interstitial edema. There is mild improvement on the right. The study is otherwise unchanged. IMPRESSION: Findings of CHF persist, there is mild improvement on the right. <Electronically signed by Chirag Hanna > 11/26/20 0893
[2020-11-26] MEDS ORDERED: PILL CUTTER 1 EACH XX PRN (08:50)
[2020-11-26] MEDS ORDERED: MAG SULF 1GM/100ML (MAG RUN) 1 GM in IV 1 EA IV ONE (09:00)
[2020-11-26] MEDS ORDERED: POTASSIUM CHLORIDE 10 MEQ SR TABLET PO ONE (09:00)
[2020-11-26] MEDS ORDERED: PANTOPRAZOLE 40MG VIAL (C9113 PER 1) IV SCH (09:00)
[2020-11-26] MEDS ORDERED: FUROSEMIDE 40MG/4ML VIAL (J1940) IV ONE ×3 (09:00→17:00)
[2020-11-26] MEDS ORDERED: PANTOPRAZOLE 40MG TAB (PROTONIX) PO ONE (09:00)
[2020-11-26] MEDS: ACETAMINOPHEN 500 MG TAB PO SCH ×2 (09:20→20:07)
[2020-11-26] MEDS: DOCUSATE SODIUM 100MG CAPSULE PO SCH ×2 (09:22→20:06)
[2020-11-26] MEDS: DIGOXIN 0.125 MG TAB PO SCH (09:23)
[2020-11-26] MEDS: METOPROLOL SUCC (TopROL XL) 50MG **XL** TAB PO SCH (09:23)
[2020-11-26] MEDS: MIRALAX *UNIT DOSE* 17GM PACKET PO SCH ×2 (09:23→14:30)
[2020-11-26] MEDS: **NOTE PATIENT COMMENT** MISC XX SCH (09:31)
[2020-11-26 12:15] LABS: HEMATOCRIT 40.1 % (36.0-47.0); HEMOGLOBIN 12.9 g/dl (12.0-15.5)
[2020-11-26] MEDS ORDERED: cloNIDine 0.1MG TABLET PO ONE (13:00)
--- NOTE | 2020-11-26 13:46 | ECGEPIP ---
[facility] - ED Test Date: 2020-11-25 Pat Name: AMARA MATAMOROS Department: Room: - Gender: Female Pathology Transcriptionist: ANGELITO : 1940 Requested By: Ivett Tang Order Number: [id number] Reading MD: Ivett Tang Measurements Intervals Leland Rate: 81 P: RI: QRS: 58 QRSD: 80 T: -62 QT: 352 QTc: 408 Interpretive Statements Atrial fibrillation Low voltage QRS Septal infarct , age undetermined NSTTW abnormalities similar 09/06/20 Electronically Signed on 11-26-2020 13:46:02 EDT by Ivett Tang
[2020-11-26] MEDS ORDERED: SLF 3 ML SYR IV PRN (15:30)
[2020-11-26] MEDS ORDERED: ACETAMINOPHEN 500 MG TAB PO ONE (16:30)
[2020-11-26 16:35] LABS: CALCIUM LEVEL 8.3 MG/DL (8.8-10.2); CREATININE FOR GFR 0.98 MG/DL (0.55-1.30); MAGNESIUM LEVEL 2.4 MG/DL (1.8-2.4); POTASSIUM SERUM 3.8 MEQ/L (3.5-5.1)
[2020-11-26] MEDS: OLOPATADINE 0.1% OPHTH SOL 5ML(PATANOL) OU SCH (17:55)
[2020-11-26] MEDS ORDERED: metFORMIN (GLUCOPHAGE) 500MG TAB PO SCH (18:00)
[2020-11-26] MEDS: ATORVASTATIN 20 MG TAB PO SCH (20:06)
[2020-11-26] MEDS: PANTOPRAZOLE 40MG TAB (PROTONIX) PO SCH (20:07)
[2020-11-26] MEDS: LIDOCAINE 5% (LIDODERM) PATCH TD SCH (20:08)
[2020-11-26] MEDS: SLF 3 ML SYR IV SCH (21:03)
[2020-11-27] VITALS (7 sets, daily range): BP systolic 116–165; BP diastolic 56–78
[2020-11-27 05:03] LABS: HEMATOCRIT 37.6 % (36.0-47.0); HEMOGLOBIN 12.1 g/dl (12.0-15.5); MEAN CORPUSCULAR HEMOGLOBIN 30.6 pg (27.0-33.0); MEAN CORPUSCULAR HGB CONC 32.2 g/dl (32.0-36.5); MEAN CORPUSCULAR VOLUME 95.2 fl (80.0-96.0); PLATELET COUNT, AUTOMATED 321 10^3/uL (150-450); RED BLOOD COUNT 3.95 10^6/uL (4.00-5.40); WHITE BLOOD COUNT 5.1 10^3/uL (4.0-10.0)
[2020-11-27 05:21] LABS: BLOOD UREA NITROGEN 22 MG/DL (7-18); CALCIUM LEVEL 8.8 MG/DL (8.8-10.2); CARBON DIOXIDE LEVEL 30 MEQ/L (21-32); CHLORIDE LEVEL 101 MEQ/L (98-107); CREATININE FOR GFR 0.87 MG/DL (0.55-1.30); GLOMERULAR FILTRATION RATE > 60.0 (>32); GLUCOSE, FASTING 121 MG/DL (70-100); POTASSIUM SERUM 3.7 MEQ/L (3.5-5.1); SODIUM LEVEL 139 MEQ/L (136-145)
[2020-11-27] MEDS: SLF 3 ML SYR IV SCH ×3 (05:23→21:18)
[2020-11-27] MEDS: SUCRALFATE SUSP 1GM/10ML UD PO SCH ×4 (07:50→21:17)
[2020-11-27] MEDS: GLIMEPIRIDE 1 MG TABLET PO SCH (07:50)
[2020-11-27 07:52] LABS: NT-PRO BNP 1830 PG/ML (<450)
[2020-11-27] MEDS ORDERED: metOLazone 2.5 MG TAB PO ONE (08:00)
[2020-11-27] MEDS ORDERED: FUROSEMIDE 40MG/4ML VIAL (J1940) IV ONE ×2 (08:30→13:00)
[2020-11-27] MEDS: DIGOXIN 0.125 MG TAB PO SCH (08:37)
[2020-11-27] MEDS: METOPROLOL SUCC (TopROL XL) 50MG **XL** TAB PO SCH (08:37)
--- NOTE | 2020-11-27 08:37 | REP ---
INDICATION: chf check resolution. COMPARISON: 11/26/2020. TECHNIQUE: Single portable AP view of the chest was performed. FINDINGS: There is mild cardiomegaly, vascular congestion and diffuse interstitial edema with improvement compared to the prior studies. There is mild calcification of the thoracic aorta. The mediastinal silhouette is unremarkable. IMPRESSION: Mild cardiomegaly, vascular congestion and diffuse interstitial edema. There is improvement compared to the prior exams. <Electronically signed by Chirag Hanna > 11/27/20 0834
[2020-11-27] MEDS: PANTOPRAZOLE 40MG TAB (PROTONIX) PO SCH ×2 (08:51→21:17)
[2020-11-27] MEDS: ACETAMINOPHEN 500 MG TAB PO SCH ×2 (08:51→21:17)
[2020-11-27] MEDS: OLOPATADINE 0.1% OPHTH SOL 5ML(PATANOL) OU SCH ×2 (08:51→16:31)
[2020-11-27] MEDS: DOCUSATE SODIUM 100MG CAPSULE PO SCH ×2 (08:51→21:17)
[2020-11-27] MEDS: **NOTE PATIENT COMMENT** MISC XX SCH (08:52)
[2020-11-27 12:13] LABS: CALCIUM LEVEL 8.7 MG/DL (8.8-10.2); CREATININE FOR GFR 1.01 MG/DL (0.55-1.30); MAGNESIUM LEVEL 2.2 MG/DL (1.8-2.4); POTASSIUM SERUM 3.4 MEQ/L (3.5-5.1)
[2020-11-27] MEDS: POTASSIUM CHLORIDE 10% LIQ 20 MEQ/15 ML UDC PO SCH ×2 (12:29→21:18)
[2020-11-27] MEDS: MIRALAX *UNIT DOSE* 17GM PACKET PO SCH (14:25)
[2020-11-27] MEDS ORDERED: DIGOXIN INJ 0.5 MG/2 ML AMP (J1160) IV STA (18:16)
--- NOTE | 2020-11-27 18:25 | IPN ---
PROGRESS NOTE DATE: 11/27/2020 SUBJECTIVE: Patient seen and examined at the bedside. Chart has been reviewed. She denies any chest pain, pressure, tightness, lightheadedness or dizziness. Walks from the bed to the bathroom without dyspnea on exertion. Patient diuresed 2.8 liters yesterday, 1 liter today. Has been net negative balance for the past two days, negative 1 liter yesterday, negative 800 this morning. Current weight is 55 kilos. Admission weight was 52.27 kg. OBJECTIVE: GENERAL: No jugular venous distention, thyromegaly or cervical lymphadenopathy. Dry mucous membranes. LUNGS: Clear in the upper lobes with crackles bilateral bases. HEART: S1, S2. Irregularly irregular. ABDOMEN: Soft, nontender, nondistended. Right colostomy. EXTREMITIES: Trace to 1+ pitting edema bilateral lower extremities: LABORATORY DATA: Complete blood count, metabolic panel have been reviewed. BNP is 1830. Awaiting echocardiogram report. Repeat imaging chest x-ray showed improvement in congestive heart failure (CHF) pattern. ASSESSMENT: This is an 80-year-old, FULL CODE, history of gastritis, esophagitis from esophagogastroduodenoscopy (EGD)/colonoscopy done by Dr. Cramer with synchronous rectal cancer, ascending colon cancer, cecal cancer, receiving neoadjuvant concurrent chemotherapy status post right hemicolectomy, open proctectomy and colostomy, hypertension, hyperlipidemia, diabetes, admitted due to shortness of breath and weakness, found to have symptomatic anemia with hemoglobin of 5.6 and new onset congestive heart failure with unknown ejection fraction. CURRENT ISSUES: 1. Symptomatic anemia with admission hemoglobin of 5.6 status post 4 units of red blood cell (RBC) transfusion with repeat hemoglobin of 12, asymptomatic currently. 2. Suspected gastrointestinal (GI) bleed in the setting of chronic anticoagulation with Apixaban. Currently on proton pump inhibitor (PPI). Apixaban has been discontinued. Hemoglobin remains stable. Hemodynamically improved. 3. New onset congestive heart failure, unknown ejection fraction. Awaiting echocardiogram report. Currently on Lasix. Given Zaroxolyn prior to Lasix, diuresing well and has been net negative for the past two days. 4. Chronic atrial fibrillation is rate controlled. Apixaban has been discontinued due to severe anemia requiring 4 units RBC transfusion with suspected GI bleed. 5. History of esophagitis and gastritis with suspected GI bleed. Currently on proton pump inhibitor (PPI) and Carafate. 6. History of rectal cancer, ascending colon cancer, cecal cancer, receiving neoadjuvant chemotherapy with a right hemicolectomy, open proctectomy and colostomy. Patient is off Apixaban due to bleeding. She has not shown any bright red blood per rectum, melena or black tarry stools, has been transfused 4 units of blood. Outpatient followup with her medical oncologist. 7. Uncontrolled hypertension, improved. Currently on Lasix and resumed back on her home dose of medications. 8. Hyperlipidemia, stable. 9. Type 2 diabetes. On sliding scale. PLAN: At this time, patient appears to be improved, but no euvolemic yet. Will try to monitor patient's urine output throughout the day today and see if she is fully diuresed and becomes euvolemic in mid-afternoon, may be able to go home once echocardiogram report is available. [facility]
[2020-11-27] MEDS ORDERED: METOPROLOL TART 25 MG TABLET PO ONE (18:30)
[2020-11-27] MEDS: LIDOCAINE 5% (LIDODERM) PATCH TD SCH (21:16)
[2020-11-27] MEDS: ATORVASTATIN 20 MG TAB PO SCH (21:17)
[2020-11-27 23:46] LABS: BLOOD UREA NITROGEN 29 MG/DL (7-18); CALCIUM LEVEL 8.4 MG/DL (8.8-10.2); CARBON DIOXIDE LEVEL 29 MEQ/L (21-32); CHLORIDE LEVEL 101 MEQ/L (98-107); CK-MB VALUE MASS < 1.0 NG/ML (<3.6); CPK CREATINE PHOSPHOKINASE 43 U/L (26-192); CREATININE FOR GFR 1.23 MG/DL (0.55-1.30); GLOMERULAR FILTRATION RATE 44.6 (>32); GLUCOSE, FASTING 179 MG/DL (70-100); MB/CK RELATIVE INDEX 2.33 (< OR =4); POTASSIUM SERUM 4.7 MEQ/L (3.5-5.1); SODIUM LEVEL 138 MEQ/L (136-145); TROPONIN I < 0.02 NG/ML (< 0.10)
[2020-11-28] VITALS: BP 124/56
[2020-11-28 04:00] VITALS: BP 143/78
[2020-11-28] MEDS: SLF 3 ML SYR IV SCH (05:15)
[2020-11-28 05:43] LABS: HEMATOCRIT 43.5 % (36.0-47.0); HEMOGLOBIN 13.9 g/dl (12.0-15.5); MEAN CORPUSCULAR VOLUME 97.1 fl (80.0-96.0); PLATELET COUNT, AUTOMATED 348 10^3/uL (150-450); RED BLOOD COUNT 4.48 10^6/uL (4.00-5.40)
--- NOTE | 2020-11-28 06:25 | REPVR ---
PROCEDURE INFORMATION: Exam: XR Chest Exam date and time: 11/28/2020 5:40 AM Age: 80 years old Clinical indication: Shortness of breath; Additional info: SOB R/O chf TECHNIQUE: Imaging protocol: XR of the chest. Views: 1 view. COMPARISON: RI PORTABLE CHEST X-RAY 11/27/2020 7:37 AM FINDINGS: Lungs: Unremarkable. No consolidation. Pleural spaces: Unremarkable. No pleural effusion. No pneumothorax. Heart/Mediastinum: Unremarkable. No cardiomegaly. Bones/joints: There is right AC joint degenerative changes.. IMPRESSION: No focal lung consolidation. Electronically signed by: Moustapha Goldberg On 11/28/2020 06:24:41 AM
[2020-11-28 06:29] LABS: CALCIUM LEVEL 8.8 MG/DL (8.8-10.2); CREATININE FOR GFR 0.98 MG/DL (0.55-1.30); DIGOXIN LEVEL 1.2 NG/ML (0.5-2.0); POTASSIUM SERUM 4.1 MEQ/L (3.5-5.1)
[2020-11-28] MEDS: GLIMEPIRIDE 1 MG TABLET PO SCH (07:22)
[2020-11-28] MEDS: SUCRALFATE SUSP 1GM/10ML UD PO SCH (07:59)
[2020-11-28] MEDS: DIGOXIN 0.125 MG TAB PO SCH (07:59)
[2020-11-28] MEDS: PANTOPRAZOLE 40MG TAB (PROTONIX) PO SCH (07:59)
[2020-11-28 08:00] VITALS: BP 133/87
[2020-11-28] MEDS: DOCUSATE SODIUM 100MG CAPSULE PO SCH (08:00)
[2020-11-28] MEDS: METOPROLOL SUCC (TopROL XL) 50MG **XL** TAB PO SCH (08:00)
[2020-11-28] MEDS: ACETAMINOPHEN 500 MG TAB PO SCH (08:00)
[2020-11-28] MEDS: **NOTE PATIENT COMMENT** MISC XX SCH (08:01)
[2020-11-28] MEDS: OLOPATADINE 0.1% OPHTH SOL 5ML(PATANOL) OU SCH (08:01)
--- NOTE | 2020-11-28 08:19 | ECHO ---
DATE OF PROCEDURE: 11/26/2020 Age: 80 Gender: Female Height: 61 inches Weight: 114 pounds REFERRING PHYSICIAN: Nighat Chavez MD INDICATION: Congestive heart failure. MEASUREMENTS: IVS 0.9 cm LV 4.6 cm LVPW 0.9 cm LA 4.2 cm Aorta 2.7 cm RV 2.6 cm IVC 1.6 cm FINDINGS: This study is of acceptable technical quality. The patient is in atrial fibrillation with controlled rate. Left ventricle has normal size and overall grossly preserved systolic function, I estimate EF around 50% to 55%. Calculated LVEF by computer was 51%. Right ventricle also appears to have normal size and systolic function. There is severe biatrial enlargement consistent with chronic atrial fibrillation. The aortic valve is calcified. Based on 2D imaging, I assume approximately mild or nqqq-oa-xpbqzsuc stenosis, but the visualization was limited. There are also mild degenerative abnormalities of the mitral valve with mitral annular calcification. Tricuspid valve appears normal. Pulmonic valve was not well seen. No pericardial effusion is noted. Inferior vena cava is of normal size. Aortic root, aortic arch, and visualized segment of abdominal aorta all appear normal. Doppler interrogation of the aortic valve reveals approximately zpxl-as-wdnygcjw insufficiency and probably mild stenosis. Mean gradient was 17 mmHg. Calculated aortic valve area was 1.0 cm2, which is almost certainly inaccurate. There was qove-wq-muilanzq mitral insufficiency and moderate tricuspid insufficiency. Calculated pulmonary artery pressure is in the 40s corresponding to moderate pulmonary hypertension. Evaluation of diastolic function is inconclusive due to underlying atrial fibrillation. CONCLUSIONS: 1. Study is of good technical quality. The patient is in atrial fibrillation with controlled rate. 2. Normal LV size with overall preserved LV systolic function, estimated LVEF 50% to 55%. 3. Normal RV systolic function. 4. Severe biatrial enlargement. 5. Heavily calcified aortic valve resulting in xlvt-fa-scpylruo insufficiency and mild stenosis (mean gradient 17 mmHg). 6. Rhdm-kv-jkuwzuup mitral insufficiency. 7. Moderate tricuspid insufficiency. 8. Likely normal central venous pressure and moderate pulmonary hypertension. MTDD
[2020-11-28] MEDS: MIRALAX *UNIT DOSE* 17GM PACKET PO SCH (09:00)
--- NOTE | 2020-11-28 09:11 | DS.PDOC ---
Discharge Summary General Date of Admission November 25, 2020 at 17:29 Date of Discharge 11/28/20 Discharge Summary addendum: acute hfpef echo ef 50-55% Vital Signs/I&Os Vital Signs Date Time Temp Pulse Resp B/P (MAP) Pulse Ox O2 Delivery O2 Flow Rate FiO2 11/28/20 08:00 96.8 77 12 133/87 (102) 97 Room Air I&O- Last 24 Hours up to 6 AM 11/28/20 06:00 Intake Total 1058 ml Output Total 925 ml Balance 133 ml Laboratory Data Labs 24H Laboratory Tests 2 11/27/20 11:31: Anion Gap 6L, Glomerular Filtration Rate 56.0, Calcium Level 8.7L, Magnesium Level 2.2 11/27/20 22:49: Anion Gap 8, Glomerular Filtration Rate 44.6, Calcium Level 8.4L, Magnesium Level 2.0, Whole Blood Ionized Calcium 4.1L, Total Creatine Kinase 43, Creatine Kinase MB < 1.0, Creatine Kinase MB Relative Index 2.33, Troponin I < 0.02 11/28/20 05:22: Anion Gap 6L, Glomerular Filtration Rate 58.0, Calcium Level 8.8, Magnesium Level 2.0, Nucleated Red Blood Cells % (auto) 0.4H, Digoxin Level 1.2 CBC/BMP Laboratory Tests 11/27/20 11:31 11/27/20 22:49 11/28/20 05:22 Microbiology Microbiology 11/25/20 Respiratory Virus Panel (PCR) ([facility]) - Final, Complete Discharge Medications Scheduled Acetaminophen (Tylenol Arthritis) 650 Mg Tablet.er, 650 MG PO Q8HP, (Reported) Alendronate Sodium (Alendronate Sodium) 70 Mg Tablet, 70 MG PO Q7D, (Reported) in the morning, at least 30 minutes before the first food, beverage, or medication of the day Atorvastatin Calcium (Atorvastatin Calcium) 20 Mg Tablet, 20 MG PO QHS, (Reported) Calcium Citrate/Vitamin D3 (Citracal + D Maximum Caplet) 1 Each Tablet, 2 TAB PO DAILY, (Reported) Digoxin (Digoxin) 125 Mcg Tablet, 125 MCG PO DAILY, (Reported) Diltiazem HCl (Diltiazem 24Hr ER) 240 Mg Cap.er.24h, 240 MG PO DAILY, (Reported) Docusate Sodium (Colace) 100 Mg Capsule, 100 MG PO BID, (Reported) Furosemide (Lasix) 20 Mg Tablet, 20 MG PO DAILY Glimepiride (Glimepiride) 1 Mg Tablet, 0.5 MG PO DAILY, (Reported) Metformin HCl (Metformin HCl) 500 Mg Tablet, 500 MG PO QPM, (Reported) Metoprolol Succinate (Metoprolol Succinate) 50 Mg Tab.er.24h, 50 MG PO DAILY, (Reported) Olopatadine HCl (Pataday) 0.2% 2.5ML Drops, 1 DROP OU BID, (Reported) Pantoprazole Sodium (Protonix) 40 Mg Granpkt.dr, 40 MG PO DAILY Polyethylene Glycol 3350 (Miralax) 119 Gm Powder, 17 GRAM PO DAILY for constipation, (Reported) dissolve in water Sucralfate (Carafate) 1 Gm Tablet, 1 GM PO ACHS 4 times per day take on an empty stomach Scheduled PRN Potassium Chloride (Potassium Chloride) 20 Meq Tab.er.prt, 20 MEQ PO DAILY PRN for EDEMA, (Reported) TAKE WITH FUROSEMIDE Allergies Coded Allergies: No Known Allergies (Unverified , 10/17/20) LILY LOUISE MD November 28, 2020 09:11
--- NOTE | 2020-11-28 15:08 | DSES ---
DISCHARGE SUMMARY DATE OF ADMISSION: 11/25/2020 DATE OF DISCHARGE: 11/28/2020 PRIMARY DISCHARGE DIAGNOSES: 1. Symptomatic anemia. 2. Suspected gastrointestinal (GI) bleed in the setting of chronic anticoagulation with apixaban. 3. Blood loss anemia. 4. History of esophagitis. 5. History of gastritis. 6. New onset congestive heart failure. Echocardiogram is still pending report. 7. Hypocalcemia. 8. Hypokalemia. 9. History of rectal cancer with ascending colon cancer receiving neoadjuvant concurrent chemotherapy status post hemicolectomy, open proctectomy, and colostomy. 10. Hypertension, controlled. 11. Dyslipidemia. 12. Diabetes. 13. Chronic atrial fibrillation. DISCHARGE MEDICATIONS: 1. Protonix 40 mg daily. 2. Carafate 1 gram p.o. q. a.c. and h.s. 3. Lasix 20 mg daily. 4. Acetaminophen 650 q. 8 hours as needed. 5. Alendronate 70 mg every week. 6. Atorvastatin 20 q. h.s. 7. Calcium two tablets daily. 8. Digoxin 125 mcg daily. 9. Diltiazem 240 daily. 10. Colace 100 b.i.d. 11. Glimepiride 0.5 daily. 12. Metformin 500 q. p.m. 13. Metoprolol 50 daily. 14. Pataday one drop both eyes b.i.d. 15. Polyethylene glycol 17 grams daily. 16. Potassium 20 mEq daily as needed. 17. The patient's Eliquis has been temporarily discontinued due to severe anemia requiring blood transfusion. DISCHARGE INSTRUCTIONS: 1. Two liter fluid restriction. Strict I and O (intake and output), daily weights. Call Dr. Decker if more than 2 pound weight gain. 2. PCP appointment and cardiology appointment within five days of hospital discharge. HOSPITAL COURSE: This is an 80-year-old female admitted on 11/25/2020, due to symptomatic anemia sent by cardiology office due to a hemoglobin of 5.6 with complaint of generalized weakness, worsening shortness of breath, dyspnea on exertion with increasing lower extremity edema, orthopnea, paroxysmal nocturnal dyspnea, unable to walk 10 steps without being short of breath. In the ER, the patient was found to have new onset congestive heart failure with chest x-ray positive for edema. She had rales on exam, 2+ pitting edema, with admission weight of 52.27 kg and discharge weight of 48.2 kg. The patient was given Zaroxolyn and Lasix and was net negative for three days prior to hospital discharge with resolution of her congestive heart failure. Troponin was negative less than 0.02. She had episodes of low potassium and low calcium, which were both supplemented. Creatinine remained stable at 0.98 on discharge. For the symptomatic anemia, she was placed on Protonix b.i.d. and Carafate with no signs of bright red blood per rectum, melena, black tarry stools, or hematemesis. She was transfused a total of four units of red blood cells (RBCs) and was taken off apixaban. Admission hemoglobin was 5.6 and discharge hemoglobin of 13.9. The patient had episodes of uncontrolled AFib with ventricular rate of 104 treated with an extra dose of 125 IV mcg, IV digoxin with improvement, and weight controlled for the past 24 hours with a ventricular rate of 67 to 69. DISCHARGE PHYSICAL EXAMINATION: VITAL SIGNS: Temperature 97.1, pulse 69 irregularly irregular, respiratory rate 18, blood pressure 143/78, 100% on room air. GENERAL: Awake, alert, and oriented x3. HEENT: No JVD or thyromegaly. No pallor, icterus, or jaundice. Speaks in full sentences. LUNGS: Clear to auscultation. No wheezing, rales, or rhonchi. HEART: S1, S2, irregularly irregular and not tachycardic. ABDOMEN: Soft, nontender, and nondistended. EXTREMITIES: No pitting edema. LABORATORY DATA: On discharge white count 5, hemoglobin 13, hematocrit 43, platelets 348,000. Sodium 139, potassium 4.1, chloride 102, bicarb 31, BUN 28, creatinine 0.98, glucose 107. Respiratory panel negative. IMAGING DATA: Chest x-ray 11/25/2020, congestive heart failure. Mild cardiomegaly and small right pleural effusion. Chest x-ray on 11/28/2020, no acute cardiopulmonary process. Time spent on discharge 30 minutes.
--- NOTE | 2020-11-28 19:24 | ECGEPIP ---
[facility] Test Date: 2020-11-27 Pat Name: AMARA MATAMOROS Department: Room: [place] [address] Gender: Female Cna Hha: icu : 1940 Requested By: LILY Castillo Order Number: [id number] Reading MD: Martin Bray Measurements Intervals [place] Rate: 80 P: VT: QRS: 45 QRSD: 82 T: 20 QT: 370 QTc: 426 Interpretive Statements Atrial fibrillation Low QRS complex voltage in the limb leads Nonspecific ST-T wave abnormalities suspect previous septal infarct Similar to tracing done 11-25-20 Electronically Signed on 11-28-2020 19:24:22 EDT by Martin Bray
== END 2020-11-28 11:05 | disposition home health service (06) | DRG 813 ==
LOC: M ED 15:46 → M ED INP 17:29 → ENRESERV 21:40 → M ICU 22:10 → M PCU 11-26 14:55
PROVIDERS: ADMIT General Practice; ATTEND General Practice
PROC: 30233N1 Transfusion of Nonautologous Red Blood Cells into Peripheral Vein, Percutaneous Approach (ICD-10-PCS; principal; 2020-11-25)
DX: D68.32 Hemorrhagic disorder due to extrinsic circulating anticoagulants (principal); I50.31 Acute diastolic (congestive) heart failure; D62 Acute posthemorrhagic anemia; K92.2 Gastrointestinal hemorrhage, unspecified; I48.20 Chronic atrial fibrillation, unspecified; C20 Malignant neoplasm of rectum; I11.0 Hypertensive heart disease with heart failure; E11.9 Type 2 diabetes mellitus without complications; E78.5 Hyperlipidemia, unspecified; Z92.21 Personal history of antineoplastic chemotherapy; E87.6 Hypokalemia; E83.51 Hypocalcemia; Z79.01 Long term (current) use of anticoagulants; Z79.899 Other long term (current) drug therapy

== ENCOUNTER → 2020-12-16 | Outpatient (CLI) | payer MEDICARE, OTHER ==
[~2020-12-16] MED LIST changes: +ATIV1TAB10 PO; +CARA1TAB6 PO; +OMEP-221 PO; +OMEP10CASR PO; +PROTPAK PO
--- NOTE | 2020-12-16 11:14 | REP ---
INDICATION: RT PLEURAL EFFUSION. COMPARISON: Chest radiograph 11/28/2020. TECHNIQUE: Real-time sonographic evaluation of bilateral chest performed to evaluate for possible drainable pleural fluid. FINDINGS: No significant pleural fluid is seen bilaterally. IMPRESSION: Schedule thoracentesis is canceled due to the lack of significant pleural fluid bilaterally. <Electronically signed by Chirag Hanna > 12/16/20 [id number]
== END ==
LOC: M IRPRO 09:43
PROVIDERS: ATTEND Internal Medicine Medical Oncology
DX: J90 Pleural effusion, not elsewhere classified (principal); Z53.8 Procedure and treatment not carried out for other reasons

== ENCOUNTER 2020-12-23 12:05 | Emergency (ER) | payer MEDICARE, OTHER ==
[~2020-12-23] VITALS: Ht 154.9 cm; Wt 46.8 kg
[2020-12-23] MEDS ORDERED: NS 500 ML IV ONE (13:55)
[2020-12-23 14:21] LABS: BASO % 0.4 % (0.0-1.0); EOS % 0.9 % (0.0-3.0); HEMATOCRIT 32.3 % (36.0-47.0); HEMOGLOBIN 10.2 g/dl (12.0-15.5); LYMPH # 0.4 10^3/uL (1.5-5.0); LYMPH % 9.7 % (24.0-44.0); MEAN CORPUSCULAR HEMOGLOBIN 31.3 pg (27.0-33.0); MEAN CORPUSCULAR HGB CONC 31.6 g/dl (32.0-36.5); MEAN CORPUSCULAR VOLUME 99.1 fl (80.0-96.0); MONO # 0.5 10^3/uL (0.0-0.8); MONO % 11.9 % (2.0-8.0); NEUTROPHILS # 3.5 10^3/uL (1.5-8.5); NEUTROPHILS % 76.7 % (36.0-66.0); PLATELET COUNT, AUTOMATED 259 10^3/uL (150-450); RED BLOOD COUNT 3.26 10^6/uL (4.00-5.40); WHITE BLOOD COUNT 4.5 10^3/uL (4.0-10.0)
[2020-12-23 14:33] LABS: INR 0.99; PROTHROMBIN TIME 13.3 SECONDS (12.5-14.3)
[2020-12-23 14:34] LABS: PARTIAL THROMBOPLASTIN TIME 29.5 SECONDS (24.2-38.5)
[2020-12-23] MEDS ORDERED: ISOVUE-370 76% 100ML VIAL As Ordered ONE (14:40)
[2020-12-23 14:48] LABS: ALBUMIN 3.4 GM/DL (3.2-5.2); BILIRUBIN,DIRECT 0.3 MG/DL (0.0-0.2); BILIRUBIN,TOTAL 0.9 MG/DL (0.2-1.0); TOTAL PROTEIN 6.5 GM/DL (6.4-8.2)
--- NOTE | 2020-12-23 15:27 | REP ---
INDICATION: hemoptysis/ recently off blood thinner med COMPARISON: Multiple the latest 11/21/2020 TECHNIQUE: CT angiography attention pulmonary arteries after the intravenous administration of 75 cc Isovue 370. FINDINGS: There is excellent visualization of the pulmonary arterial vasculature. There are no focal filling defects present that would be considered consistent with acute pulmonary emboli. The thoracic aorta is not opacified. There is no mediastinal or hilar adenopathy. There are no pleural or pericardial effusions. There is no change in appearance of the imaged upper abdomen or imaged osseous structures. Evaluation of the lung sams shows no abnormal nodules, masses, or opacities. There are mild fibrotic changes which appear unchanged compared to the prior exams. IMPRESSION: There is no evidence of acute disease. There is no evidence of a pulmonary embolism. Although noncontrast opacified there does appear to be ascending aortic ectasia probably unchanged from 12/08/[address] <Electronically signed by Nick Guo > 12/23/20 [id number]
[2020-12-23 16:37] VITALS: BP 136/80
--- NOTE | 2020-12-23 19:55 | ECGEPIP ---
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
== END 2020-12-23 16:44 | disposition home or self-care (01) ==
LOC: M ED 12:05
DX: R04.2 Hemoptysis (principal); I48.91 Unspecified atrial fibrillation; I50.9 Heart failure, unspecified; E78.5 Hyperlipidemia, unspecified; I10 Essential (primary) hypertension; K57.92 Diverticulitis of intestine, part unspecified, without perforation or abscess without bleeding; M54.9 Dorsalgia, unspecified; Z86.018 Personal history of other benign neoplasm; Z85.038 Personal history of other malignant neoplasm of large intestine; Z79.84 Long term (current) use of oral hypoglycemic drugs; Z79.899 Other long term (current) drug therapy
CPT/HCPCS: 71275; 80047; 80076; 83605; 83690; 84484; 85025; 85610; 85730; 93005; 93041; 94760; 96360; 96361; 99284; Q9967

== ENCOUNTER 2021-01-04 10:13 | Outpatient (CLI) | payer MEDICARE, OTHER ==
[~2021-01-04] VITALS: Ht 154.9 cm; Wt 46.3 kg
[~2021-01-04 10:13] MED LIST changes: +ACETAMINOPHEN TAB 650MG DOSE (2X325MG) PO SCH; +OMEP40CA4 PO; -OMEP40CA97 PO; +diphenhydrAMINE 25MG CAP PO SCH
[2021-01-04 10:40] VITALS: BP 131/76
[2021-01-04 11:44] VITALS: BP 133/61
[2021-01-04 12:10] VITALS: BP 174/79
[2021-01-04 13:10] VITALS: BP 156/72
[2021-01-04 13:40] VITALS: BP 139/74
== END 2021-01-04 13:40 | disposition home or self-care (01) ==
LOC: M INFU 10:13
PROVIDERS: ATTEND Internal Medicine Medical Oncology
DX: D64.9 Anemia, unspecified (principal)
CPT/HCPCS: 36415; 36430; 86850; 86900; 86901; 86920; P9016

== ENCOUNTER → 2021-01-16 | Outpatient (CLI) | payer MEDICARE, OTHER ==
[~2021-01-16] MED LIST changes: -ACETAMINOPHEN TAB 650MG DOSE (2X325MG) PO SCH; +SUCR1ORA; -diphenhydrAMINE 25MG CAP PO SCH
== END ==
LOC: M LABSMTC 09:48
PROVIDERS: ATTEND Anesthesiology
DX: Z01.812 Encounter for preprocedural laboratory examination (principal); Z20.822 Contact with and (suspected) exposure to COVID-19

== ENCOUNTER 2021-01-20 10:30 | Inpatient (IN) | payer MEDICARE, OTHER ==
[~2021-01-20] VITALS: Ht 154.9 cm; Wt 48.1 kg
[2021-01-20] VITALS (10 sets, daily range): BP systolic 126–180; BP diastolic 62–100
[~2021-01-20 10:30] MED LIST changes: +NS 1,000 ML IV ONE; -SUCR1ORA; +SUCR1ORA PO
[2021-01-20] MEDS ORDERED: propofoL 200 MG/20 ML VIAL As Ordered ONE (11:04)
[2021-01-20] MEDS ORDERED: LIDOCAINE 2% 100MG/5ML SDV (FOR ANES.) As Ordered ONE (11:04)
[2021-01-20 11:59] LABS: MEAN CORPUSCULAR HEMOGLOBIN 30.7 pg (27.0-33.0); MEAN CORPUSCULAR HGB CONC 29.9 g/dl (32.0-36.5); MEAN CORPUSCULAR VOLUME 102.6 fl (80.0-96.0); PLATELET COUNT, AUTOMATED 336 10^3/uL (150-450); RED BLOOD COUNT 1.89 10^6/uL (4.00-5.40); WHITE BLOOD COUNT 3.3 10^3/uL (4.0-10.0)
[2021-01-20 12:05] LABS: HEMATOCRIT 19.4 % (36.0-47.0); HEMOGLOBIN 5.8 g/dl (12.0-15.5)
[2021-01-20 12:18] LABS: BLOOD UREA NITROGEN 21 MG/DL (7-18); CREATININE FOR GFR 0.69 MG/DL (0.55-1.30); GLOMERULAR FILTRATION RATE > 60.0 (>32)
[2021-01-20] MEDS ORDERED: MOM 30ML SUSPENSION UDC PO PRN (12:50)
[2021-01-20] MEDS ORDERED: MAALOX 30 ML SUSP *UDC PO PRN (12:50)
--- NOTE | 2021-01-20 14:32 | HPEPDOC ---
[facility] Medical History & Physical Date of Admission Jan 20, 2021 Date of Service: Jan 20, 2021 History and Physical CHIEF COMPLAINT: Weakness HISTORY OF PRESENT ILLNESS: 80-year-old female with a past medical history of colorectal cancer status post resection and ostomy performed by Dr. Galicia in [facility]. Patient has been worked up for suspected GI bleeding for the past several months. EGD and colonoscopy by Dr. Cramer in 10/2020 showed esophagitis, gastritis, diverticulosis and erythematous mucosa in ileum, without signs of active bleeding. However denies dark stool in the ostomy bag. She has been seen by Dr. Cramer who has requested her to be admitted for symptom medically anemia and hematuria hemoglobin of 5.1. Patient is to be transfused and will go for upper endoscopy on 01/21/21. Patient denies any chest pain, palpitations, nausea, vomiting, diarrhea, lightheadedness or dizziness but does endorse generalized weakness, fatigue and reduced exercise tolerance. 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 Galicia, in [place], [place] Tubal ligation Appendectomy Cataract surgery Excision of lipoma right shoulder SOCIAL HISTORY: Patient denies smoking Patient denies etoh use Patient denies illicit drug use ALLERGIES: Please see below. REVIEW OF SYSTEMS: 10 point ROS conducted, relevant finding are noted in HPI HOME MEDICATIONS: Please see below. PHYSICAL EXAMINATION: VITAL SIGNS: please see below General: NAD, comfortable, pale complexion, elderly female. HEENT: PERRLA, EOMI, sclerae clear Neck: supple, normal ROM, no JVD Respiratory: lungs CTAB, no wheeze, no rales, no crackles CVS: RRR, normal S1, S2, no murmurs Abdo: soft, no masses, no hepatosplenomegaly, BS+, no rebound tenderness Extremities: no edema, pulses 2+ MSK: no joint deformities, normal ROM Neuro: no focal neuro deficits, moving all 4 extremities, CN2-12 intact. Strength 5/5 in all 4 extremities. No nystagmus. Psych: calm, cooperative, AAO x 3 LABORATORY DATA: See below. MICROBIOLOGY: Please see below. ASSESSMENT: 1-year-old female with a history of type 2 diabetes, atrial fibrillation on chronic class, hypertension, dyslipidemia, rectal and cecal cancer status post hemicolectomy, tubal ligation, referred to hospital for direct admission by Dr. Cramer after concern for symptom medically anemia, found to have a hemoglobin of 5.1. Patient has time for an EGD on 01/21/[address] Cramer pending blood transfusion overnight. Patient will be kept on clear liquids with nothing by mouth status after midnight. Patient started on IV Protonix twice a day. Symptomatic anemia, hemoglobin of 5.6 Suspected GI bleed in the setting of chronic anticoagulation with apixaban Acute blood loss anemia Esophagitis Gastritis HFpEF Chronic atrial fibrillation Synchronous rectal cancer with ascending colon cancer in cecal cancer receiving neoadjuvant concurrent chemotherapy, status post right hemicolectomy open p roctectomy and colostomy under Dr. Galicia at [facility] hyperlipidemia diabetes Plan: Patient is admitted to PCU unit for telemetry monitoring, given hx of atrial fibrillation. Will continue to hold eliquis. Patient will be started on IV protonix q12h. She will be given a transfusion of 4 units of pRBC. Given hx of HFpEF will given IV lasix 20 mg q8h to prevent fluid overload. Patient will be given a clear liquid diet, and remain NPO after midnight. She will be given carafate 1g TID. Patient's home medications will be resumed. GI consultation with Dr. Huang has been placed. No chemoprophylaxis for DVTs at this time. CODE STATUS: full code. Dispo: admission expect to last > 2 midnights Vital Signs Vital Signs Date Time Temp Pulse Resp B/P (MAP) Pulse Ox O2 Delivery O2 Flow Rate FiO2 01/20/21 11:03 96.9 118 20 145/73 (97) 98 Room Air Laboratory Data Labs 24H Laboratory Tests 2 01/20/21 11:42: Nucleated Red Blood Cells % (auto) 0.0, Glomerular Filtration Rate > 60.0 CBC/BMP Laboratory Tests 01/20/21 11:42 Home Medications Scheduled Acetaminophen (Tylenol Arthritis) 650 Mg Tablet.er, 650 MG PO Q8HP Alendronate Sodium (Alendronate Sodium) 70 Mg Tablet, 70 MG PO Q7D in the morning, at least 30 minutes before the first food, beverage, or medication of the day Atorvastatin Calcium (Atorvastatin Calcium) 20 Mg Tablet, 20 MG PO QHS Calcium Citrate/Vitamin D3 (Citracal + D Maximum Caplet) 1 Each Tablet, 2 TAB PO DAILY Digoxin (Digoxin) 125 Mcg Tablet, 125 MCG PO DAILY Diltiazem HCl (Diltiazem 24Hr ER) 240 Mg Cap.er.24h, 240 MG PO DAILY Docusate Sodium (Colace) 100 Mg Capsule, 100 MG PO BID Furosemide (Lasix) 20 Mg Tablet, 20 MG PO DAILY Glimepiride (Glimepiride) 1 Mg Tablet, 0.5 MG PO DAILY Metformin HCl (Metformin HCl) 500 Mg Tablet, 500 MG PO QPM Metoprolol Succinate (Metoprolol Succinate) 50 Mg Tab.er.24h, 50 MG PO DAILY Olopatadine HCl (Pataday) 0.2% 2.5ML Drops, 1 DROP OU BID Omeprazole (Omeprazole) 10 Mg Capsule.dr, 20 MG PO DAILY Polyethylene Glycol 3350 (Miralax) 119 Gm Powder, 17 GRAM PO DAILY for constipation dissolve in water Sucralfate (Sucralfate) 1 Gm/10 Ml Oral.susp, 10 ML PO ACHS Scheduled PRN Potassium Chloride (Potassium Chloride) 20 Meq Tab.er.prt, 20 MEQ PO DAILY PRN for EDEMA TAKE WITH FUROSEMIDE Allergies Coded Allergies: No Known Allergies (Unverified , 01/12/21) SULLY MONROY MD Jan 20, 2021 14:32
[2021-01-20] MEDS: PANTOPRAZOLE 40MG VIAL (C9113 PER 1) IV SCH ×2 (14:53→22:03)
[2021-01-20] MEDS ORDERED: POTASSIUM CHLORIDE 10 MEQ SR TABLET PO PRN (16:30)
[2021-01-20] MEDS: FUROSEMIDE 20MG/2ML VIAL (J1940) IV SCH (17:27)
[2021-01-20] MEDS: SUCRALFATE SUSP 1GM/10ML UD PO SCH ×2 (17:27→22:03)
[2021-01-20] MEDS ORDERED: ATORVASTATIN 20 MG TAB PO SCH (21:00)
[2021-01-20] MEDS: DOCUSATE SODIUM 100MG CAPSULE PO SCH (22:03)
[2021-01-20] MEDS: ACETAMINOPHEN TAB 650MG DOSE (2X325MG) PO PRN (22:03)
[2021-01-21] VITALS (14 sets, daily range): BP systolic 123–162; BP diastolic 62–76
[2021-01-21] MEDS ORDERED: LIDOCAINE 5% (LIDODERM) PATCH TD PRN (00:55)
[2021-01-21] MEDS: FUROSEMIDE 20MG/2ML VIAL (J1940) IV SCH ×2 (02:09→09:26)
[2021-01-21 06:35] LABS: BASO % 0.5 % (0.0-1.0); EOS % 0.8 % (0.0-3.0); HEMATOCRIT 35.8 % (36.0-47.0); LYMPH # 0.3 10^3/uL (1.5-5.0); LYMPH % 7.1 % (24.0-44.0); MEAN CORPUSCULAR HEMOGLOBIN 29.3 pg (27.0-33.0); MEAN CORPUSCULAR HGB CONC 31.6 g/dl (32.0-36.5); MEAN CORPUSCULAR VOLUME 92.7 fl (80.0-96.0); MONO # 0.6 10^3/uL (0.0-0.8); MONO % 15.1 % (2.0-8.0); NEUTROPHILS # 2.9 10^3/uL (1.5-8.5); NEUTROPHILS % 76.2 % (36.0-66.0); PLATELET COUNT, AUTOMATED 294 10^3/uL (150-450); RED BLOOD COUNT 3.86 10^6/uL (4.00-5.40); WHITE BLOOD COUNT 3.8 10^3/uL (4.0-10.0)
[2021-01-21 06:36] LABS: HEMOGLOBIN 11.3 g/dl (12.0-15.5)
[2021-01-21 06:44] LABS: ALBUMIN 3.1 GM/DL (3.2-5.2); ALT/SGPT 11 U/L (12-78); BILIRUBIN,TOTAL 2.8 MG/DL (0.2-1.0); BLOOD UREA NITROGEN 12 MG/DL (7-18); CALCIUM LEVEL 8.3 MG/DL (8.8-10.2); CARBON DIOXIDE LEVEL 28 MEQ/L (21-32); CHLORIDE LEVEL 109 MEQ/L (98-107); CREATININE FOR GFR 0.68 MG/DL (0.55-1.30); GLOMERULAR FILTRATION RATE > 60.0 (>32); GLUCOSE, FASTING 87 MG/DL (70-100); POTASSIUM SERUM 3.9 MEQ/L (3.5-5.1); SODIUM LEVEL 144 MEQ/L (136-145); TOTAL PROTEIN 5.8 GM/DL (6.4-8.2)
[2021-01-21] MEDS: SUCRALFATE SUSP 1GM/10ML UD PO SCH ×2 (06:47→11:00)
[2021-01-21] MEDS: METOPROLOL SUCC (TopROL XL) 50MG **XL** TAB PO SCH ×2 (09:00→09:25)
[2021-01-21] MEDS ORDERED: FUROSEMIDE 20 MG TAB PO SCH (09:00)
[2021-01-21] MEDS: DOCUSATE SODIUM 100MG CAPSULE PO SCH (09:00)
[2021-01-21] MEDS ORDERED: DIGOXIN 0.125 MG TAB PO SCH (09:00)
[2021-01-21 09:10] LABS: MAGNESIUM LEVEL 2.2 MG/DL (1.8-2.4)
[2021-01-21] MEDS: PANTOPRAZOLE 40MG VIAL (C9113 PER 1) IV SCH (09:25)
[2021-01-21] MEDS ORDERED: LIDOCAINE 2% 100MG/5ML SDV (FOR ANES.) As Ordered ONE (09:46)
[2021-01-21] MEDS ORDERED: propofoL 200 MG/20 ML VIAL As Ordered ONE (09:46)
[2021-01-21 10:11] LABS: DIGOXIN LEVEL 0.8 NG/ML (0.5-2.0)
--- NOTE | 2021-01-21 10:16 | REP ---
INDICATION: elevated bili COMPARISON: Correlation with CT dated 11/21/2020 TECHNIQUE: Real time hutchison scale ultrasound examination using curved array transducer. FINDINGS: Liver demonstrates intrahepatic biliary dilatation but is otherwise normal in appearance and without focal hepatic lesion or abnormality. Gallbladder is distended with moderate amount of sludge and small mobile gallstones/gravel. The common bile duct is upper limits of normal at 8 mm. Correlation is recommended to exclude cholecystitis. Pancreas is normal. Right kidney measures 12.1 x 5.7 x 6.4 cm and demonstrates significant peripelvic and 6.7 cm exophytic simple cyst. No obvious nephrolithiasis or renal mass lesion. No ascites. IMPRESSION: 1. Gallbladder and biliary findings as described above. Cannot exclude acute cholecystitis. <Electronically signed by Ashish Kang > 01/21/21 [id number]
--- NOTE | 2021-01-21 12:11 | ROOR ---
Patient Name: Meron Rico Procedure Date: 01/21/2021 10:59 AM Date of : 1940 Age: 80 Room: Main OR Gender: Female Note Status: Finalized Procedure: Upper GI endoscopy Indications: Acute post hemorrhagic anemia Providers: Jeff Cramer MD Referring MD: Nadiya Bryan NP Requesting Provider: Medicines: Monitored Anesthesia Care Complications: No immediate complications. Procedure: Pre-Anesthesia Assessment: - Prior to the procedure, a History and Physical was performed, and patient medications and allergies were reviewed. The patient is competent. The risks and benefits of the procedure and the sedation options and risks were discussed with the patient. All questions were answered and informed consent was obtained. Patient identification and proposed procedure were verified by the physician, the nurse and the anesthesiologist in the procedure room. Mental Status Examination: alert and oriented. Airway Examination: normal oropharyngeal airway and neck mobility. Respiratory Examination: clear to auscultation. CV Examination: normal. Prophylactic Antibiotics: The patient does not require prophylactic antibiotics. Prior Anticoagulants: The patient has taken no previous anticoagulant or antiplatelet agents. ASA Grade Assessment: III - A patient with severe systemic disease. After reviewing the risks and benefits, the patient was deemed in satisfactory condition to undergo the procedure. The anesthesia plan was to use monitored anesthesia care (MAC). Immediately prior to administration of medications, the patient was re-assessed for adequacy to receive sedatives. The heart rate, respiratory rate, oxygen saturations, blood pressure, adequacy of pulmonary ventilation, and response to care were monitored throughout the procedure. The physical status of the patient was re-assessed after the procedure. The Endoscope was introduced through the mouth, and advanced to the second part of duodenum. The upper GI endoscopy was accomplished without difficulty. The patient tolerated the procedure well. Findings: One tongue of salmon-colored mucosa was present. No other visible abnormalities were present. The maximum longitudinal extent of these esophageal mucosal changes was 2 cm in length. 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 Coagulation for destruction of remaining portion of lesion using argon plasma at 0.8 liters/minute and 20 goss was successful. One 8 mm angioectasia with stigmata of recent bleeding was found in the second portion of the duodenum. Coagulation for hemostasis using argon plasma at 0.8 liters/minute and 20 goss was successful. Impression: - Minerva-colored mucosa suspicious for short-segment Newell's esophagus. - Gastric antral vascular ectasia without bleeding. Treated with argon plasma coagulation (APC). - One recently bleeding angioectasia in the duodenum. Treated with argon plasma coagulation (APC). - No specimens collected. Recommendation: - Patient has a contact number available for emergencies. The signs and symptoms of potential delayed complications were discussed with the patient. Return to normal activities tomorrow. Written discharge instructions were provided to the patient. - Clear liquid diet for 1 day, then advance as tolerated to high fiber diet. - Use Protonix (pantoprazole) 40 mg PO twice daily - to be taken in morning (1/2 hour before breakfast) and at bedtime ( atleast 3 hours after last meal) for 8 weeks. - Use sucralfate suspension 1 gram PO BID for 4 weeks. - Check CBC, serum iron , transferrin and ferritin levels (fasting labs) in 1 month. - Return to GI clinic in [facility] (address [address], [address], [place] [address]) in 4 -- 6 weeks. Please call GI clinic @ [phone] for apppointment date and time. - Return to primary care physician. - Follow an antireflux regimen. Procedure Code(s): --- Professional --- 69586, Esophagogastroduodenoscopy, flexible, transoral; with ablation of tumor(s), polyp(s), or other lesion(s) (includes pre- and post-dilation and guide wire passage, when performed) 32571, 59, Esophagogastroduodenoscopy, flexible, transoral; with control of bleeding, any method Diagnosis Code(s): --- Professional --- K22.8, Other specified diseases of esophagus K31.811, Angiodysplasia of stomach and duodenum with bleeding D62, Acute posthemorrhagic anemia CPT copyright 2019 [employer]. All rights reserved. The codes documented in this report are preliminary and upon manager van review may be revised to meet current compliance requirements. Jeff Cramer MD Jeff Cramer MD 01/21/2021 12:11:41 PM Electronically signed by Jeff Cramer MD Number of Addenda: 0 Note Initiated On: 01/21/2021 10:59 AM Estimated Blood Loss: Estimated blood loss was minimal.
[2021-01-21] MEDS ORDERED: fentaNYL 100 MCG/2 ML INJECTION (J3010) IV PRN (12:15)
[2021-01-21] MEDS ORDERED: ONDANSETRON 4MG/2ML VIAL IV PRN (12:15)
[2021-01-21] MEDS: ACETAMINOPHEN TAB 650MG DOSE (2X325MG) PO PRN (12:37)
[2021-01-21] MEDS ORDERED: SUCR1ORA PO ×2 (14:01→14:03)
[2021-01-21] MEDS ORDERED: OMEP10CASR PO (14:01)
[2021-01-21] MEDS ORDERED: PANT40TA29 PO (14:03)
--- NOTE | 2021-01-21 14:13 | DS.PDOC ---
Discharge Summary General Date of Admission Jan 20, 2021 at 13:11 Date of Discharge 01/21/21 Discharge Summary PROCEDURES PERFORMED DURING STAY: [None]. 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 Galicia at 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 Galicia at [facility] hypertension hyperlipidemia diabetes COMPLICATIONS/CHIEF COMPLAINT: Acute Anemia. HISTORY OF PRESENT ILLNESS: 80-year-old female with a past medical history of colorectal cancer status post resection and ostomy performed by Dr. Galicia in flow. Patient has been worked up for suspected GI bleeding for the past several months. EGD and colonoscopy by Dr. Cramer in 10/2020 showed esophagitis, gastritis, diverticulosis and erythematous mucosa in ileum, without signs of active bleeding. However denies dark stool in the ostomy bag. She has been seen by Dr. Cramer who has requested her to be admitted for symptom medically anemia and hematuria hemoglobin of 5.1. Patient is to be transfused and will go for upper endoscopy on 01/21/21. Patient denies any chest pain, palpitations, nausea, vomiting, diarrhea, lightheadedness or dizziness but does endorse generalized weakness, fatigue and reduced exercise tolerance. HOSPITAL COURSE: Patient was admitted to PCU for Dr. andersen. Given history of atrial fibrillation. Patient was found to have a hemoglobin of 5.1. Adequacies been held for several months. Patient was transfused 4 units of blood results in an improvement in her hemoglobin to 11.2. She was also given IV furosemide 20 mg every 8 hours to prevent fluid overload. Given her history of heart failure. Patient underwent an EGD with Dr. Cramer, which showed AVM malformations. Touchable recommended the patient be discharged home. Continue pantoprazole 40 mg twice per day as well as Sucralfate twice per day. Patient to complete blood work and to follow-up with Dr. Cramer in clinic in 4-6 weeks. Of note, patient had an elevated bilirubin to 1.8. Obtain liver ultrasound showing gallbladder sludge and small gallstones with CBD at [address] lemus reviewed the ultrasound and indicated that there is no concern for acute cholecystitis and patient is appropriate for discharge. She has no abdominal pain. Overnight patient had several 2 second pauses, which were asymptomatic. I discussed this with Dr. Douglas recommended to stop digoxin on discharge and to follow-up with Dr. Decker in the clinic. DISCHARGE MEDICATIONS: Please see below. ALLERGIES: Please see below. PHYSICAL EXAMINATION ON DISCHARGE: VITAL SIGNS: please see below General: NAD, comfortable HEENT: PERRLA, EOMI, sclerae clear Neck: supple, normal ROM, no JVD Respiratory: lungs CTAB, no wheeze, no rales, no crackles CVS: RRR, normal S1, S2, no murmurs Abdo: soft, no masses, no hepatosplenomegaly, BS+, no rebound tenderness Extremities: no edema, pulses 2+ MSK: no joint deformities, normal ROM Neuro: no focal neuro deficits, moving all 4 extremities, CN2-12 intact. Strength 5/5 in all 4 extremities. No nystagmus. Psych: calm, cooperative, AAO x 3 LABORATORY DATA: Please see below. IMAGING: PROGNOSIS: good ACTIVITY: [As tolerated]. DIET: Clear liquid diet x 1 day, advance diet as tolerated afterwards to high fiber diet. DISCHARGE PLAN: DC home. Take pantoprazole 40 mg BID. Take sucralfate 10 mg BID. Complete iron studies ordered by Dr. Cramer in 4 weeks. Follow up with Dr. Cramer in 4-6 weeks. Path smear was also sent from blood sample on admission to assess RBC morphology given macrocytosis. DISPOSITION: home DISCHARGE INSTRUCTIONS: . Please follow-up with your primary care doctor within 3-5 days . Please follow-up with Dr. Cramer within 4-6 weeks. This currently lab work in 4 weeks as ordered by Dr. Cramer (iron studies) . Please taking medications as prescribed. Pantoprazole 40 mg twice per day and sucralfate twice per day. . If you develop bleeding, chest pain, shortness of breath, seizures, nausea, fevers, or otherwise worsening of your symptoms, please call 911 or return to the nearest emergency room ITEMS TO FOLLOWUP ON ON OUTPATIENT: 1. . DISCHARGE CONDITION: [Stable]. TIME SPENT ON DISCHARGE: 35 minutes Vital Signs/I&Os Vital Signs Date Time Temp Pulse Resp B/P (MAP) Pulse Ox O2 Delivery O2 Flow Rate FiO2 01/21/21 13:22 95 01/21/21 13:00 98.0 76 18 133/63 (86) 01/21/21 12:29 Room Air 01/21/21 02:46 96 I&O- Last 24 Hours up to 6 AM 01/21/21 05:59 Intake Total 2850 ml Output Total 2500 ml Balance 350 ml Laboratory Data Labs 24H Laboratory Tests 2 01/21/21 05:47: Immature Granulocyte % (Auto) 0.3, Neutrophils (%) (Auto) 76.2H, Lymphocytes (%) (Auto) 7.1L, Monocytes (%) (Auto) 15.1H, Eosinophils (%) (Auto) 0.8, Basophils (%) (Auto) 0.5, Neutrophils # (Auto) 2.9, Lymphocytes # (Auto) 0.3L, Monocytes # (Auto) 0.6, Eosinophils # (Auto) 0.0, Basophils # (Auto) 0.0, Nucleated Red Blood Cells % (auto) 0.0, Anion Gap 7L, Glomerular Filtration Rate > 60.0, Calcium Level 8.3L, Magnesium Level 2.2, Total Bilirubin 2.8H, Aspartate Amino Transf (AST/SGOT) 12, Alanine Aminotransferase (ALT/SGPT) 11L, Alkaline Phosphatase 71, Total Protein 5.8L, Albumin 3.1L, Albumin/Globulin Ratio 1.1L, Digoxin Level 0.8 CBC/BMP Laboratory Tests 01/21/21 05:47 Discharge Medications Scheduled Acetaminophen (Tylenol Arthritis) 650 Mg Tablet.er, 650 MG PO Q8HP, (Reported) Alendronate Sodium (Alendronate Sodium) 70 Mg Tablet, 70 MG PO Q7D, (Reported) in the morning, at least 30 minutes before the first food, beverage, or medication of the day Atorvastatin Calcium (Atorvastatin Calcium) 20 Mg Tablet, 20 MG PO QHS, (Reported) Calcium Citrate/Vitamin D3 (Citracal + D Maximum Caplet) 1 Each Tablet, 2 TAB PO DAILY, (Reported) Diltiazem HCl (Diltiazem 24Hr ER) 240 Mg Cap.er.24h, 240 MG PO DAILY, (Reported) Docusate Sodium (Colace) 100 Mg Capsule, 100 MG PO BID, (Reported) Furosemide (Lasix) 20 Mg Tablet, 20 MG PO DAILY Glimepiride (Glimepiride) 1 Mg Tablet, 0.5 MG PO DAILY, (Reported) Metformin HCl (Metformin HCl) 500 Mg Tablet, 500 MG PO QPM, (Reported) Metoprolol Succinate (Metoprolol Succinate) 50 Mg Tab.er.24h, 50 MG PO DAILY, (Reported) Olopatadine HCl (Pataday) 0.2% 2.5ML Drops, 1 DROP OU BID, (Reported) Pantoprazole Sodium (Pantoprazole Sodium) 40 Mg Tablet.dr, 40 MG PO BID Polyethylene Glycol 3350 (Miralax) 119 Gm Powder, 17 GRAM PO DAILY for constipation, (Reported) dissolve in water Sucralfate (Sucralfate) 1 Gm/10 Ml Oral.susp, 10 ML PO BID Scheduled PRN Potassium Chloride (Potassium Chloride) 20 Meq Tab.er.prt, 20 MEQ PO DAILY PRN for EDEMA, (Reported) TAKE WITH FUROSEMIDE Allergies Coded Allergies: No Known Allergies (Unverified , 01/12/21) SULLY MONROY MD Jan 21, 2021 14:13
[2021-01-21] MEDS ORDERED: **NOTE PATIENT COMMENT** MISC XX SCH (21:00)
[2021-01-23 10:56] LABS: FOLATE 11.6 NG/ML
== END 2021-01-21 17:01 | disposition home or self-care (01) | DRG 378 ==
LOC: M OPP 10:30 → M PCU 13:11
PROVIDERS: ADMIT Family Medicine; ATTEND Family Medicine
PROC: 30233N1 Transfusion of Nonautologous Red Blood Cells into Peripheral Vein, Percutaneous Approach (ICD-10-PCS; principal; 2021-01-20)
PROC: 0W3P8ZZ Control Bleeding in Gastrointestinal Tract, Via Natural or Artificial Opening Endoscopic (ICD-10-PCS; 2021-01-21)
DX: K31.811 Angiodysplasia of stomach and duodenum with bleeding (principal); D62 Acute posthemorrhagic anemia; I48.20 Chronic atrial fibrillation, unspecified; E11.9 Type 2 diabetes mellitus without complications; E78.5 Hyperlipidemia, unspecified; I10 Essential (primary) hypertension; Z92.21 Personal history of antineoplastic chemotherapy; K20.90 Esophagitis, unspecified without bleeding; Z93.3 Colostomy status; Z85.048 Personal history of other malignant neoplasm of rectum, rectosigmoid junction, and anus; Z85.038 Personal history of other malignant neoplasm of large intestine; K57.30 Diverticulosis of large intestine without perforation or abscess without bleeding; Z79.899 Other long term (current) drug therapy

== ENCOUNTER → 2021-02-27 | Outpatient (CLI) | payer MEDICARE, OTHER ==
[~2021-02-27] MED LIST changes: -NS 1,000 ML IV ONE; +PANT40TA29 PO
[2021-02-27 10:50] LABS: BASO % 0.3 % (0.0-1.0); EOS % 0.5 % (0.0-3.0); HEMATOCRIT 22.5 % (36.0-47.0); LYMPH # 0.3 10^3/uL (1.5-5.0); LYMPH % 4.7 % (24.0-44.0); MEAN CORPUSCULAR HEMOGLOBIN 32.5 pg (27.0-33.0); MEAN CORPUSCULAR HGB CONC 28.9 g/dl (32.0-36.5); MEAN CORPUSCULAR VOLUME 112.5 fl (80.0-96.0); MONO # 0.7 10^3/uL (0.0-0.8); MONO % 11.6 % (2.0-8.0); NEUTROPHILS # 4.9 10^3/uL (1.5-8.5); NEUTROPHILS % 82.1 % (36.0-66.0); PLATELET COUNT, AUTOMATED 316 10^3/uL (150-450)
[2021-02-27 11:11] LABS: BLOOD UREA NITROGEN 26 MG/DL (7-18); CREATININE FOR GFR 0.76 MG/DL (0.55-1.30); FERRITIN 1039 NG/ML (8-252); GLOMERULAR FILTRATION RATE > 60.0 (>32); IRON (FE) 79 UG/DL (50-170); PERCENT SATURATION 20.6 % (13.2-45.0); TOTAL IRON BINDING CAPACITY 384 UG/DL (250-450)
[2021-02-27 14:50] LABS: HEMOGLOBIN 6.5 g/dl (12.0-15.5)
== END ==
LOC: M LAB 09:35
PROVIDERS: ATTEND Internal Medicine Gastroenterology
DX: D62 Acute posthemorrhagic anemia (principal); K31.811 Angiodysplasia of stomach and duodenum with bleeding

== ENCOUNTER 2021-03-24 12:34 | Observation (INO) | payer MEDICARE, OTHER ==
[~2021-03-24] VITALS: Ht 154.9 cm; Wt 51.7 kg
[2021-03-24] VITALS (9 sets, daily range): BP systolic 101–128; BP diastolic 58–81
[2021-03-24 14:58] LABS: ALT/SGPT 14 U/L (12-78); BILIRUBIN,TOTAL 0.8 MG/DL (0.2-1.0); BLOOD UREA NITROGEN 35 MG/DL (7-18); CALCIUM LEVEL 9.1 MG/DL (8.8-10.2); CARBON DIOXIDE LEVEL 24 MEQ/L (21-32); CHLORIDE LEVEL 111 MEQ/L (98-107); CREATININE FOR GFR 0.78 MG/DL (0.55-1.30); GLOMERULAR FILTRATION RATE > 60.0 (>32); GLUCOSE, FASTING 96 MG/DL (70-100); POTASSIUM SERUM 4.3 MEQ/L (3.5-5.1); SODIUM LEVEL 141 MEQ/L (136-145)
[2021-03-24 15:19] LABS: RSV AMPLIFICATION NEGATIVE (NEGATIVE)
[2021-03-24] MEDS ORDERED: SUCR1ORA2 PO (16:24)
[2021-03-24] MEDS ORDERED: FURO20TA2 PO (16:24)
[2021-03-24] MEDS ORDERED: PANT-23 PO (16:24)
[2021-03-24] MEDS ORDERED: HOME MED LIST COMPLETE! XX SCH (16:25)
[2021-03-24] MEDS ORDERED: FUROSEMIDE 20 MG TAB PO PRN (16:30)
[2021-03-24] MEDS ORDERED: POTASSIUM CHLORIDE 10MEQ SR TABLET PO PRN (16:30)
[2021-03-24] MEDS ORDERED: ACETAMINOPHEN 650MG ER TAB (TYLENOL ARTHRITIS) PO PRN (16:30)
[2021-03-24] MEDS ORDERED: GLUCAGON INJ 1MG VIAL SC PRN (16:35)
[2021-03-24] MEDS ORDERED: GLUCOSE 4GM CHEW TABLET PO PRN (16:35)
[2021-03-24] MEDS ORDERED: DEXTROSE 50% 50 ML SYRINGE IV PRN (16:35)
[2021-03-24] MEDS ORDERED: MIRALAX *UNIT DOSE* 17GM PACKET PO PRN (16:50)
[2021-03-24] MEDS: HumaLOG INSULIN (NovoLOG) PER UNIT SC SCH (17:30)
[2021-03-24] MEDS: SUCRALFATE SUSP 1GM/10ML UD PO SCH ×2 (17:30→23:40)
[2021-03-24] MEDS ORDERED: ATORVASTATIN 20 MG TAB PO SCH (21:00)
[2021-03-24] MEDS ORDERED: HumaLOG INSULIN (NovoLOG) PER UNIT SC SCH (21:00)
[2021-03-24] MEDS: CYANOCOBALAMIN 1,000MCG/ML VIAL (J3420) IM SCH (22:36)
[2021-03-24] MEDS: DOCUSATE SODIUM 100MG CAPSULE PO SCH (23:40)
[2021-03-24] MEDS: PANTOPRAZOLE 40MG TAB (PROTONIX) PO SCH (23:41)
[2021-03-25] VITALS (9 sets, daily range): BP systolic 122–129; BP diastolic 75–91
[2021-03-25 07:00] LABS: HEMATOCRIT 35.5 % (36.0-47.0); MEAN CORPUSCULAR HEMOGLOBIN 31.2 pg (27.0-33.0); MEAN CORPUSCULAR HGB CONC 31.5 g/dl (32.0-36.5); MEAN CORPUSCULAR VOLUME 98.9 fl (80.0-96.0); PLATELET COUNT, AUTOMATED 296 10^3/uL (150-450); RED BLOOD COUNT 3.59 10^6/uL (4.00-5.40); WHITE BLOOD COUNT 6.7 10^3/uL (4.0-10.0)
[2021-03-25 07:01] LABS: HEMOGLOBIN 11.2 g/dl (12.0-15.5)
[2021-03-25 07:30] LABS: BLOOD UREA NITROGEN 26 MG/DL (7-18); CALCIUM LEVEL 8.4 MG/DL (8.8-10.2); CARBON DIOXIDE LEVEL 24 MEQ/L (21-32); CHLORIDE LEVEL 112 MEQ/L (98-107); CREATININE FOR GFR 0.87 MG/DL (0.55-1.30); GLOMERULAR FILTRATION RATE > 60.0 (>32); GLUCOSE, FASTING 178 MG/DL (70-100); POTASSIUM SERUM 3.7 MEQ/L (3.5-5.1); SODIUM LEVEL 142 MEQ/L (136-145)
[2021-03-25] MEDS: HumaLOG INSULIN (NovoLOG) PER UNIT SC SCH (07:30)
[2021-03-25] MEDS: SUCRALFATE SUSP 1GM/10ML UD PO SCH (08:10)
[2021-03-25] MEDS: DOCUSATE SODIUM 100MG CAPSULE PO SCH (08:11)
[2021-03-25] MEDS: PANTOPRAZOLE 40MG TAB (PROTONIX) PO SCH (08:12)
[2021-03-25] MEDS: CYANOCOBALAMIN 1,000MCG/ML VIAL (J3420) IM SCH (08:13)
[2021-03-25] MEDS ORDERED: METOPROLOL SUCC (TopROL XL) 50MG **XL** TAB PO SCH (09:00)
--- NOTE | 2021-03-25 09:45 | DSES ---
DISCHARGE SUMMARY DATE OF ADMISSION: 03/24/2021 DATE OF DISCHARGE: 03/25/2021 PRINCIPAL DIAGNOSIS: Symptomatic anemia from presumed gastrointestinal blood loss. HISTORY: Meron Rico is an 80 year old. She has gastric antral vascular ectasia (GAVE), has undergone an endoscopy with argon photocoagulation by Dr. Cramer. She was admitted with a hemoglobin in the 5s. HOSPITAL COURSE: Transfused 3 units, felt back to normal. I will send her home today. Hemoglobin is up to 11.2 with no gastrointestinal (GI) bleeding noted during her admission. DISPOSITION: She is discharged home in stable condition. Her blood pressure is 122/91, lungs are clear. Heart: Regular rate and rhythm, I/6 systolic ejection murmur. Abdomen: Soft, nontender, no masses. LABORATORY: Today, her hemoglobin is 11.2. Electrolytes unremarkable. DISCHARGE INSTRUCTIONS: She will follow up with her primary care provider in a week. She already has an appointment for repeat endoscopy and probable repeat argon photocoagulation of any AVMs that are encountered. Activities as tolerated. No added salt diet. DISCHARGE MEDICATIONS: Medicines are unchanged from admission. Alendronate weekly (would consider switching this to intravenous Reclast due to her esophageal problems). Atorvastatin 20 mg every night at bedtime, diltiazem ER 240 mg daily, furosemide 20 mg daily as needed for edema, metoprolol succinate 60 mg daily, Protonix 40 mg twice a day, MiraLax as needed, potassium chloride 20 mEq as needed when she takes her furosemide, Carafate 1 gm at meals and at bedtime. At the time of this dictation, there are no pending labs.
--- NOTE | 2021-03-25 15:49 | HPE ---
HISTORY AND PHYSICAL DATE OF ADMISSION: 03/24/2021 CHIEF COMPLAINT: Profound anemia. HISTORY OF PRESENT ILLNESS: Meron Rico is an 80-year-old patient of Dr. Rodríguez at the [facility] who was sent over to the emergency room for profound anemia with a hemoglobin of 5.7. She admits to shortness of breath. No chest pain. She feels a little lightheaded. Denies significant dizziness. 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 She has a history of persistent atrial fibrillation and diastolic congestive heart failure. She has been treated with intravenous iron in August of this year. She is followed by Dr. Decker at [facility]. She has a history of type 2 diabetes, labile hypertension, chronic lower extremity edema. Echocardiogram done 11/26/2020 showed an ejection fraction of 50-55%, mild aortic stenosis, mild to moderate mitral regurgitation, pulmonary pressures elevated at 40. She has type 2 diabetes, which is well-controlled, history of right pleural effusion that resolved spontaneously prior to diagnostic thoracentesis. Her colon cancer was treated with surgery, radiation and chemotherapy. She was recently discovered to be B12 deficient. She has lab work done during her January admission and B12 level was in the 150 range. I do not see where she is on any specific treatment for that. I do not see any B12 supplement on her discharge medication list. She is on metformin for her diabetes, which is associated with B12 deficiency. In any case, we will work this up while she is here. When she was seen in Dr. Decker's office on 12/20/2020, they had a long discussion about anticoagulation for her atrial fibrillation. She previously was on Eliquis 2.5 mg twice a day, was hospitalized November 2020, had 4 units of blood. Eliquis was held on discharge. They decided to continue to hold her Eliquis at that time. Of note, is on 01/21/2021, underwent esophagogastroduodenoscopy (EGD) that showed moderate gastric antral vascular ectasia (GAVE) without active bleeding, underwent photocoagulation for destruction of remaining portion of one visible lesion that was 2 cm in length. They did see one angiectasia with stigmata with recent bleeding in the second portion of the duodenum and this was photocoagulated at well. Plan was for repeat endoscopy as needed. SURGICAL HISTORY: 1. Cataract extraction. 2. Colon surgery, as above. 3. Tubal ligation. 4. Sigmoid colostomy. SOCIAL HISTORY: Never smoked or drank any significant alcohol. REVIEW OF SYSTEMS: No vomiting of blood, epistaxis, vaginal bleeding or urinary bleeding. No fever, chills or night sweats. PHYSICAL EXAMINATION: VITAL SIGNS: Per flow sheet. GENERAL: She is alert, conversant and pale. HEENT: Unremarkable. LUNGS: Clear. HEART: Regular rate and rhythm with a 2/6 systolic ejection murmur. ABDOMEN: Soft, nontender. No masses. She has a left colostomy. EXTREMITIES: No clubbing or cyanosis. 1+ peripheral edema beneath compression stockings. Arms and legs with equal strength. LABORATORY DATA: Hemoglobin 5.7; ten days ago on 03/14/2021 it was 8.6. White count 4.6,platelets 290.. Sodium 141, potassium 4.3, BUN 35, creatinine 0.7, glucose 96. Iron studies 03/10/2021 showed a high ferratin, normal total iron binding capacity (TIBC). She was quite B12 deficient on 01/21/2021, had a B12 level of 156. COVID test is negative. IMPRESSION: 1. Profound anemia. Suspect that she has had intermittent gastrointestinal (GI) bleeding from her gastric antral vascular ectasia (GAVE). She will be transfused 3 units of packed red blood cells. A followup CBC has been ordered. I have been waiting several hours for her medications to be reconciled and it has not been done over the past three hours. I do want to clarify whether or not her B12 deficiency has been addressed. That certainly could be a co-founding factor in her anemia. She is on metformin, which can cause some B12 deficiency. After she is transfused, we will check a CBC. If it is satisfactory, she can be discharged without patient followup. 2. Diabetes. We will hold her oral agents for now. Sliding scale insulin with coverage for severe hyperglycemia. 3. B12 deficiency. Will check a parietal cell antibody. I will give her a B12 injection prior to discharge. She will need to continue B12 injections. Right now, I would recommend them weekly for a month to replace her profound B12 deficiency and then, based upon the parietal cell antibody, she may do fine with the oral replacement. 4. Gastric antral vascular ectasia (GAVE). Prone to recurrent gastrointestinal (GI) bleeding as a consequence of this. She is on Carafate and Protonix twice daily, which she should continue. 5. Congestive heart failure with a preserved ejection fraction. Continue current regimen. 6. Atrial fibrillation. Her rate is controlled with diltiazem. She is not anticoagulated. Wonder whether she might be a candidate for a Watchman device. Tool Room Machinist is Dr. Decker. 7. Osteoporosis. She is on alendronate as an outpatient. Her outpatient provider could consider replacing this with Reclast intravenously. Be concerned about giving alendronate with the patient's history of esophageal bleeding. ARNIED
--- NOTE | 2021-03-26 19:46 | ECGEPIP ---
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
[2021-03-30 17:07] LABS: ANTI-PARIETAL CELL ANTIBODY 1.9 Units (0.0-20.0)
[2021-03-31] MEDS ORDERED: VITA100020 PO (11:58)
[2021-03-31] MEDS ORDERED: DIGO0.123 PO (11:58)
== END 2021-03-25 10:30 | disposition home or self-care (01) ==
LOC: M ED 12:34 → M ED INP 12:35 → ENRESERV 21:24 → M MS5PR 22:15
PROVIDERS: ADMIT Family Medicine; ATTEND Family Medicine
DX: D64.9 Anemia, unspecified (principal); K31.811 Angiodysplasia of stomach and duodenum with bleeding; I48.91 Unspecified atrial fibrillation; I50.30 Unspecified diastolic (congestive) heart failure; I11.9 Hypertensive heart disease without heart failure; E11.9 Type 2 diabetes mellitus without complications; E53.9 Vitamin B deficiency, unspecified; Z79.84 Long term (current) use of oral hypoglycemic drugs; Z79.899 Other long term (current) drug therapy; Z85.038 Personal history of other malignant neoplasm of large intestine; Z92.21 Personal history of antineoplastic chemotherapy; Z92.3 Personal history of irradiation
CPT/HCPCS: 36415; 36430; 80048; 80053; 83921; 85025; 85027; 86256; 86850; 86900; 86901; 86920; 87631; 93005; 93041; 94760; 99285; G0378; P9016

== ENCOUNTER 2021-04-07 14:11 | Outpatient (CLI) | payer MEDICARE, OTHER ==
[~2021-04-07] VITALS: Ht 154.9 cm; Wt 51.4 kg
[2021-04-07] VITALS (12 sets, daily range): BP systolic 104–133; BP diastolic 60–78
[~2021-04-07 14:11] MED LIST changes: +FURO20TA2 PO; +PANT-23 PO; +SUCR1ORA2 PO; +VITA100020 PO
[2021-04-07] MEDS ORDERED: diphenhydrAMINE 25MG CAP PO ONE (15:35)
[2021-04-07] MEDS ORDERED: ACETAMINOPHEN TAB 650MG DOSE (2X325MG) PO ONE (15:35)
[2021-04-08 00:30] VITALS: BP 127/71
[2021-04-08 01:30] VITALS: BP 137/86
[2021-04-08 02:59] VITALS: BP 134/75
== END 2021-04-08 03:17 ==
LOC: M OPCLI5PR 14:11 → M MS5PR 14:16 → M OPCLI5PR 04-08 03:17
PROVIDERS: ATTEND Internal Medicine Medical Oncology
DX: C20 Malignant neoplasm of rectum (principal)
CPT/HCPCS: 36415; 36430; 86850; 86900; 86901; 86920; P9016

== ENCOUNTER → 2021-04-10 | Outpatient (CLI) | payer MEDICARE, OTHER | LOC: M LABSMTC 10:20 | PROVIDERS: ATTEND Anesthesiology | DX: Z01.812 Encounter for preprocedural laboratory examination (principal); Z20.822 Contact with and (suspected) exposure to COVID-19 ==

== ENCOUNTER 2021-04-14 07:12 | Day surgery (SDC) | payer MEDICARE, OTHER ==
[~2021-04-14] VITALS: Ht 154.9 cm; Wt 54.4 kg
[~2021-04-14 07:12] MED LIST changes: +NS 1,000 ML IV ONE
[2021-04-14] MEDS ORDERED: propofoL 200 MG/20 ML VIAL As Ordered ONE (08:08)
[2021-04-14] MEDS ORDERED: fentaNYL 100 MCG/2 ML INJECTION (J3010) As Ordered ONE (08:08)
[2021-04-14] MEDS ORDERED: LIDOCAINE 2% 100MG/5ML SDV (FOR ANES.) As Ordered ONE (08:08)
--- NOTE | 2021-04-14 08:56 | ROOR ---
Patient Name: Meron Rico Procedure Date: 04/14/2021 8:02 AM Date of : 1940 Age: 80 Room: [facility] Gender: Female Note Status: Finalized Procedure: Upper GI endoscopy Indications: Iron deficiency anemia secondary to chronic blood loss, For therapy of angioectasia of the stomach, Watermelon stomach (GAVE syndrome) Providers: Jeff Cramer MD Referring MD: Nadiya Bryan NP Requesting Provider: Medicines: Monitored Anesthesia Care Complications: No immediate complications. Procedure: Pre-Anesthesia Assessment: - Prior to the procedure, a History and Physical was performed, and patient medications and allergies were reviewed. The patient is competent. The risks and benefits of the procedure and the sedation options and risks were discussed with the patient. All questions were answered and informed consent was obtained. Patient identification and proposed procedure were verified by the physician, the nurse and the anesthesiologist in the procedure room. Mental Status Examination: alert and oriented. Airway Examination: normal oropharyngeal airway and neck mobility. Respiratory Examination: clear to auscultation. CV Examination: normal. Prophylactic Antibiotics: The patient does not require prophylactic antibiotics. Prior Anticoagulants: The patient has taken no previous anticoagulant or antiplatelet agents. ASA Grade Assessment: III - A patient with severe systemic disease. After reviewing the risks and benefits, the patient was deemed in satisfactory condition to undergo the procedure. The anesthesia plan was to use monitored anesthesia care (MAC). Immediately prior to administration of medications, the patient was re-assessed for adequacy to receive sedatives. The heart rate, respiratory rate, oxygen saturations, blood pressure, adequacy of pulmonary ventilation, and response to care were monitored throughout the procedure. The physical status of the patient was re-assessed after the procedure. The Endoscope was introduced through the mouth, and advanced to the second part of duodenum. The upper GI endoscopy was accomplished without difficulty. The patient tolerated the procedure well. Findings: The examined esophagus was normal. 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 Focal radiofrequency ablation of gastric antral vascular ectasia in the stomach was performed. With the endoscope in place, the position and extent of the abnormal mucosa and appropriate anatomic landmarks were noted. The abnormal mucosa was irrigated with water. Gastric contents were suctioned. The radiofrequency channel ablation catheter was introduced through the endoscope working channel. The endoscope with the ablation catheter was advanced to the areas of abnormal mucosa. The endoscope with the channel ablation catheter was positioned under direct visualization so that the catheter was placed in contact with the surface of the abnormal mucosa. Energy was applied twice at 12 J/cm2. The ablation catheter was removed through the endoscope working channel. The areas where abnormal mucosa had been ablated were examined. There was a moderate amount of unablated abnormal mucosa present. Mild bleeding was present. Coagulation for destruction of remaining portion of lesion using argon plasma at 0.8 liters/minute and 20 goss was successful. Estimated blood loss was minimal. The duodenal bulb, second portion of the duodenum and third portion of the duodenum were normal. Impression: - Normal esophagus. - Gastric antral vascular ectasia with bleeding. Treated with radiofrequency ablation. Treated with argon plasma coagulation (APC). - Normal duodenal bulb, second portion of the duodenum and third portion of the duodenum. - No specimens collected. Recommendation: - Patient has a contact number available for emergencies. The signs and symptoms of potential delayed complications were discussed with the patient. Return to normal activities tomorrow. Written discharge instructions were provided to the patient. - Clear liquid diet today, then advance as tolerated to high fiber diet and low sodium diet. - Continue present medications. - Await pathology results. - Repeat upper endoscopy in 2 months to check healing and to evaluate the response to therapy. - Use Protonix (pantoprazole) 40 mg PO twice daily - to be taken in morning (1/2 hour before breakfast) and at bedtime ( atleast 3 hours after last meal) for 3 months. - Use sucralfate suspension 1 gram PO QID for 4 weeks. - Return to GI clinic in [facility] (address [address], [address], [place], [facility]) in 4 -- 6 weeks. Please call GI clinic @ [phone] for apppointment date and time. - Return to primary care physician. Procedure Code(s): --- Professional --- 65058, Esophagogastroduodenoscopy, flexible, transoral; with ablation of tumor(s), polyp(s), or other lesion(s) (includes pre- and post-dilation and guide wire passage, when performed) 07210, 59, Esophagogastroduodenoscopy, flexible, transoral; with control of bleeding, any method Diagnosis Code(s): --- Professional --- K31.811, Angiodysplasia of stomach and duodenum with bleeding D50.0, Iron deficiency anemia secondary to blood loss (chronic) CPT copyright 2019 [employer]. All rights reserved. The codes documented in this report are preliminary and upon structural steel fitter review may be revised to meet current compliance requirements. Jeff Cramer MD Jeff Cramer MD 04/14/2021 8:55:59 AM Electronically signed by Jeff Cramer MD Number of Addenda: 0 Note Initiated On: 04/14/2021 8:02 AM Estimated Blood Loss: Estimated blood loss was minimal.
[2021-04-14 09:17] VITALS: BP 97/68
== END 2021-04-14 09:18 | disposition home or self-care (01) ==
LOC: M OPP 07:12
PROVIDERS: ATTEND Internal Medicine Gastroenterology
DX: K31.811 Angiodysplasia of stomach and duodenum with bleeding (principal); D50.0 Iron deficiency anemia secondary to blood loss (chronic); E11.9 Type 2 diabetes mellitus without complications; I48.91 Unspecified atrial fibrillation; Z86.73 Personal history of transient ischemic attack (TIA), and cerebral infarction without residual deficits; I10 Essential (primary) hypertension; E78.5 Hyperlipidemia, unspecified; Z85.028 Personal history of other malignant neoplasm of stomach; M81.0 Age-related osteoporosis without current pathological fracture; F41.9 Anxiety disorder, unspecified; Z90.49 Acquired absence of other specified parts of digestive tract; Z79.899 Other long term (current) drug therapy
CPT/HCPCS: 43255; 43270; J3010

== ENCOUNTER 2021-04-20 17:21 | Outpatient (CLI) | payer MEDICARE, OTHER ==
[~2021-04-20] VITALS: Ht 154.9 cm; Wt 112.0 kg
[~2021-04-20 17:21] MED LIST changes: +ACETAMINOPHEN TAB 650MG DOSE (2X325MG) PO SCH; -NS 1,000 ML IV ONE; +diphenhydrAMINE 25MG CAP PO SCH
[2021-04-20 17:42] VITALS: BP 131/71
[2021-04-20] MEDS ORDERED: FUROSEMIDE 20MG/2ML VIAL (J1940) IV ONE (19:00)
[2021-04-20 21:50] VITALS: BP 109/55
[2021-04-20 22:05] VITALS: BP_SYST 133; BP_SYST 139; BP_DIAS 73; BP_DIAS 77
[2021-04-20 23:05] VITALS: BP 139/77
[2021-04-20 23:52] VITALS: BP 135/81
[2021-04-21] VITALS (7 sets, daily range): BP systolic 120–149; BP diastolic 72–97
== END 2021-04-21 07:35 | disposition home or self-care (01) ==
LOC: M INFU 17:21 → M MS5PR 17:23 → M INFU 04-21 07:35
PROVIDERS: ATTEND Internal Medicine Medical Oncology
DX: D50.9 Iron deficiency anemia, unspecified (principal); K92.2 Gastrointestinal hemorrhage, unspecified
CPT/HCPCS: 36415; 36430; 85025; 86850; 86900; 86901; 86920; J1940; P9016

== ENCOUNTER 2021-05-23 16:38 | Emergency (ER) | payer MEDICARE, OTHER ==
[~2021-05-23] VITALS: Ht 154.9 cm; Wt 54.5 kg
[~2021-05-23 16:38] MED LIST changes: -ACETAMINOPHEN TAB 650MG DOSE (2X325MG) PO SCH; -diphenhydrAMINE 25MG CAP PO SCH
--- OUTSIDE RECORDS SUMMARY | 2021-05-23 16:52 | CCD | Continuity of Care Document ---
Author Author Meron BRYAN TRIMMER MACHINE Organization Unknown Address [address] [place] [address] Phone [phone] Care Team Providers Care Appointment Manager Name Role Phone [facility] AUTM [phone] Niels Decker M.D. AUTM [phone] [facility] AUTM Jeff Cramer AUTM [phone] Problems Active Problems Provider Date Type 2 diabetes mellitus Edmond Hood M.D. Onset: 0 10/31/2010 Essential hypertension Edmond Hood M.D. Onset: Mixed hyperlipidemia Edmond Hood M.D. Onset: 10/31 Ileostomy present Nadiya Bryan FNP Onset: 12/19/2020 Malignant tumor of colon Nadiya Bryan FNP Onset: 021 Atrial fibrillation Nadiya Bryan FNP Onset: 12/19/2020 Social History Type Date Description Comments Sex Unknown Tobacco Use Start: Unknown Never Smoked Cigarettes Tobacco Use Start: Unknown Never Smoked Cigars Tobacco Use Start: Unknown Never Smoked A Pipe Smoking Status Reviewed: 03/28/21 Never Smoked A Pipe Tobacco Use Start: Unknown Never Used Smokeless Tobacco ETOH Use Denies alcohol use Tobacco Use Start: Unknown Patient has never smoked Recreational Drug Use Never Used Drugs Exercise Type/Frequency Exercises regularly Sun Exposure Use less than 15 SPF Seat Belt/Car Seat Always uses seat belt Smoke Alarms Yes Smoke Alarms Carbon Monoxide Detector: Yes Allergies and adverse reactions Active Allergies Criticality Reaction | Severity Comments Date NKDA Unable to assess criticality 03/07/2005 Environmental Unable to assess criticality 07/25/2009 Medications Active Medications SIG Qnty Indications Ordering Provide r Date Adapt Remover Wipes 7760Miscellane ous Use as Directed Store 6 50units Nadiya Bryan FNP 021 Sucralfate 1GM/10ML Suspension 10 ml up to 2 times a day x 4 weeks. (Dr. Cramer) Unknow n 01/21/2021 Miralax 17GM/Scoop Powder one scoop daily, mix in water Unknown 11/28/2020 Colace 100mg Capsules 1 cap by mouth twice a day 180caps K59.00 Nadiya Bryan FNP 09/09/2020 Alendronate Sodium 70mg Tablets one tablet by mouth weekly on an empty stomach 12tabs Deejay Bryan FNP 09/07/2020 Adapt Lubricating Deodorant Liqui d Use as Directed Store 6 236units C18.9 Nadiya Bryan FNP 06/16/2020 Z93.2 Langeloth Remover Wipes Misc use 3-4 wipes every 4 days and as needed when changing ostomy 2Box Z93.2 Nadiya Bryan FNP 06/16/2020 C18.9 Efren Adapt Ceraing change every 4-5 days and as needed ref #[id number] 20units Nadiya Bryan FNP 05/05/2020 Beulah 2 Piece Ostomy Skin Barrier ref # [id number] márquez ge every 4-5 days and as needed 20units C18.9 Nadiya Bryan FNP 04/14/2020 Z93.2 Beulah 2 Piece Drainable Ostomy Pouch ref # [id number] c hange every 4-5 days and as needed 20units C18.9 Nadiya Bryan FNP 04/14/2020 Z93.2 Diltiazem HCL ER Beads 240mg Caps ER 24HR one by mouth every day Unknown 0 Metoprolol Succinate ER 50mg Tablets ER 24HR 1 by mouth every day Unknown 020 Onetouch Delica Lancets Extra Fine 33G Misc use for daily glucose checks 100units Angela Gamez M.D. 11/14/2016 Atorvastatin Calcium 20mg Tablets Take 1 Tablet Daily 90tabs E78.2 Anitha Gamez M.D. 016 Onetouch Ultra Blue Strips use to test blood sugar two times a day 100units Anitha Gamez M.D. 05/10/2015 Glucometer Kit Machine use for twice daily glucose checks dx 250.00 1units Alex Hood M.D. 03/29/2014 Lancets Thin Misc use for daily glucose checks, dx 250.00 50units Nadiya Bryan FNP 4 Test Strip Strips use for twice daily blood glucose checks, dx e11.9 100units Nadiya Bryan FNP 03/29/2014 Citracal Plus Tablets 2 by mouth every day Unknown Tylenol Muscle And Pain two tablets Q8 hours, do not exceed 6 tablets in 24 hours. Unknown Potassium Chloride Lina ER 20Meq Tablets ER 1 by mouth every day Unknown 000 Lasix 20mg Tablets one to two tabs by mouth once daily as needed for ankle swelling Un known Pataday 0.2% Solution 1 drop in each eye bid Unknown Protonix 40mg Tablets DR 1 by mouth twice a day 180tabs Nadiya Bryan FNP History Medications Protonix 40mg Tablets DR 1 by mouth twice a day: 1/2 hour before breakfast and 3 hours after last meal of the day before going to bed. x 8 weeks Unknown 01/22/20 21 - 01/25/2021 Digoxin 125mcg Tablets 1 by mouth every day Anitha Gamez M.D. 021 - 01/25/[address] 1 by mouth every day 90caps D64.9 Nadiya Bryan FNP 12/02/2020 - 01/25/2021 Sucralfate 1gm Tablets take 1 tablet by mouth before meals and at bedtime up to four times a day 120tabs Nadiya Bryan FNP 11/28/2020 - 01/25/2021 Immunizations CPT Code Status Date Vaccine Lot # [id number] Refused 04/17/2016 Pneumococcal Vaccine [id number] Refused 04/17/2016 Prevnar 13 [id number] Refused 04/17/2016 Influenza Vaccination Vital Signs Date Vital Result Comment 03/28/2021 11:51am BP Systolic 113 mmHg BP Diastolic 83 mmHg Heart Rate 127 /min Body Temperature 98.0 F Respiratory Rate 18 /min Height 61.5 inches 5'1.50" Weight 114.38 lb O2 % BldC Oximetry 100 % [place] Body Weight 105 lb BMI (Body Mass Index) 21.3 kg/m2 03/23/2021 3:47pm BP Systolic 110 mmHg BP Diastolic 62 mmHg Heart Rate 64 /min Body Temperature 98.7 F Respiratory Rate 16 /min Height 61.5 inches 5'1.50" Weight 116.38 lb O2 % BldC Oximetry 99 % [place] Body Weight 105 lb BMI (Body Mass Index) 21.6 kg/m2 Results Test Acquired Date Facility Test Result H/L Range Note Type & Screen -Incl Blood Type,Tye,AB SC 05/17/2021 Patient [facility] [place], [place] [id number] [phone] Blood Type O POSITIVE Normal AB Screen (Indirect Farooq)Vis NEGATIVE Normal CBC With Differential 05/17/2021 [place] [address] [phone] White Blood Count 4.6 10 Normal 4.0-10.0 Red Blood Count 2.09 10 Low 4.00-5.40 Hemoglobin 6.2 g/dL Critical low 12.0-15.5 Hematocrit 20.9 % Low 36.0-47.0 Mean Corpuscular Volume 100.0 fl High 80.0-96.0 Mean Corpuscular Hemoglobin 29.7 pg Normal 27.0-33.0 Mean Corpuscular HGB Conc 29.7 g/dL Low 32.0-36.5 Red Cell Distribution Width 17.2 % High 11.5-14.5 Platelet Count, Automated 290 10 Normal 150-450 Neutrophils % 80.5 % High 36.0-66.0 Lymph % 5.7 % Low 24.0-44.0 [place] % 11.3 % High 2.0-8.0 Eos % 1.7 % Normal 0.0-3.0 Baso % 0.4 % Normal 0.0-1.0 Immature Granulocyte % 0.4 % Normal 0-3.0 Nucleated Red Blood Cell % 0.0 % Normal 0-0 Neutrophils # 3.7 10 Normal 1.5-8.5 Lymph # 0.3 10 Low 1.5-5.0 [place] # 0.5 10 Normal 0.0-0.8 Eos # 0.1 10 Normal 0.0-0.5 Baso # 0.0 10 Normal 0.0-0.2 Laboratory test finding 05/17/2021 [place] [address] [phone] Packed Cells TRANSFUSED PRODU <SEE NOTE> 1 CBC With Differential 05/10/2021 [place] [address] [phone] White Blood Count 5.2 10 Normal 4.0-10.0 Red Blood Count 3.30 10 Low 4.00-5.40 Hemoglobin 9.9 g/dL Low 12.0-15.5 Hematocrit 32.2 % Low 36.0-47.0 Mean Corpuscular Volume 97.6 fl High 80.0-96.0 Mean Corpuscular Hemoglobin 30.0 pg Normal 27.0-33.0 Mean Corpuscular HGB Conc 30.7 g/dL Low 32.0-36.5 Red Cell Distribution Width 17.9 % High 11.5-14.5 Platelet Count, Automated 302 10 Normal 150-450 Neutrophils % 84.3 % High 36.0-66.0 Lymph % 4.8 % Low 24.0-44.0 [place] % 8.7 % High 2.0-8.0 Eos % 1.2 % Normal 0.0-3.0 Baso % 0.4 % Normal 0.0-1.0 Immature Granulocyte % 0.6 % Normal 0-3.0 Nucleated Red Blood Cell % 0.0 % Normal 0-0 Neutrophils # 4.4 10 Normal 1.5-8.5 Lymph # 0.3 10 Low 1.5-5.0 [place] # 0.5 10 Normal 0.0-0.8 Eos # 0.1 10 Normal 0.0-0.5 Baso # 0.0 10 Normal 0.0-0.2 CBC With Differential 05/08/2021 [place] [address] [phone] White Blood Count 4.8 10 Normal 4.0-10.0 Red Blood Count 2.86 10 Low 4.00-5.40 Hemoglobin 8.2 g/dL Low 12.0-15.5 Hematocrit 27.4 % Low 36.0-47.0 Mean Corpuscular Volume 95.8 fl Normal 80.0-96.0 Mean Corpuscular Hemoglobin 28.7 pg Normal 27.0-33.0 Mean Corpuscular HGB Conc 29.9 g/dL Low 32.0-36.5 Red Cell Distribution Width 19.4 % High 11.5-14.5 Platelet Count, Automated 281 10 Normal 150-450 Neutrophils % 81.4 % High 36.0-66.0 Lymph % 5.2 % Low 24.0-44.0 [place] % 11.2 % High 2.0-8.0 Eos % 1.4 % Normal 0.0-3.0 Baso % 0.4 % Normal 0.0-1.0 Immature Granulocyte % 0.4 % Normal 0-3.0 Nucleated Red Blood Cell % 0.0 % Normal 0-0 Neutrophils # 3.9 10 Normal 1.5-8.5 Lymph # 0.3 10 Low 1.5-5.0 [place] # 0.5 10 Normal 0.0-0.8 Eos # 0.1 10 Normal 0.0-0.5 Baso # 0.0 10 Normal 0.0-0.2 Type & Screen -Incl Blood Type,Tye,AB SC 05/08/2021 [place] [address] [phone] Blood Type O POSITIVE Normal AB Screen (Indirect Farooq)Vis NEGATIVE Normal Laboratory test finding 05/08/2021 [place] [address] [phone] Packed Cells TRANSFUSED PRODU <SEE NOTE> 2 Occult Blood 05/08/2021 [place] [address] [phone] Occult Blood OCCULT BLOOD 1 <SEE NOTE> Abnormal 3 Factor VIII Panel 05/05/2021 [place] [address] [phone] F8 Activity For F8 Panel 214 % High 56-140 4 F8 Antigen For F8 Panel 115 % Normal 50-200 5 F8 Activity vWB For F8 Panel 71 % Normal 50-200 Interpretation: Note Normal . 6 Laboratory test finding 05/05/2021 [place] [address] [phone] Packed Cells TRANSFUSED PRODU <SEE NOTE> 7 Type & Screen -Incl Blood Type,Tye,AB SC 05/05/2021 [place] [address] [phone] Blood Type O POSITIVE Normal AB Screen (Indirect Farooq)Vis NEGATIVE Normal CBC With Differential 05/05/2021 [place] [address] [phone] White Blood Count 5.1 10 Normal 4.0-10.0 Red Blood Count 1.99 10 Low 4.00-5.40 Hemoglobin 6.1 g/dL Critical low 12.0-15.5 Hematocrit 20.4 % Low 36.0-47.0 Mean Corpuscular Volume 102.5 fl High 80.0-96.0 Mean Corpuscular Hemoglobin 30.7 pg Normal 27.0-33.0 Mean Corpuscular HGB Conc 29.9 g/dL Low 32.0-36.5 Red Cell Distribution Width 16.4 % High 11.5-14.5 Platelet Count, Automated 278 10 Normal 150-450 Neutrophils % 80.4 % High 36.0-66.0 Lymph % 6.3 % Low 24.0-44.0 [place] % 11.5 % High 2.0-8.0 Eos % 0.8 % Normal 0.0-3.0 Baso % 0.4 % Normal 0.0-1.0 Immature Granulocyte % 0.6 % Normal 0-3.0 Nucleated Red Blood Cell % 0.0 % Normal 0-0 Neutrophils # 4.1 10 Normal 1.5-8.5 Lymph # 0.3 10 Low 1.5-5.0 [place] # 0.6 10 Normal 0.0-0.8 Eos # 0.0 10 Normal 0.0-0.5 Baso # 0.0 10 Normal 0.0-0.2 Laboratory test finding 05/05/2021 [place] [address] [phone] LDH Lactate Dehydrogenase 128 U/L Normal 84-246 Haptoglobin 214 mg/dL Normal 41-333 8 Platelet Function Analysis 05/05/2021 Patient Servi ce [place] [id number] [phone] Collagen Epinephrine TNP seconds Normal 74-162 9 Laboratory test finding 05/05/2021 [place] [address] [phone] Partial Thromboplastin Time 24.9 seconds Low 25 .9-37.0 Prothrombin Time/Inr 05/05/2021 [place] [address] [phone] Prothrombin Time 14.0 seconds Normal 12.7-14.5 Inr 1.04 Normal 10 Retic (Reticulocyte Count) 05/05/2021 [place] [address] [phone] Reticulocyte % 5.9 % High 0.5-1.5 Reticulocyte # 119.8 10 High 17-77 Retic Hemoglobin Equivalent 30.7 pg Normal 24-36 CBC With Differential 04/27/2021 [place] [address] [phone] White Blood Count 4.2 10 Normal 4.0-10.0 Red Blood Count 3.22 10 Low 4.00-5.40 Hemoglobin 9.8 g/dL Low 12.0-15.5 Hematocrit 32.1 % Low 36.0-47.0 Mean Corpuscular Volume 99.7 fl High 80.0-96.0 Mean Corpuscular Hemoglobin 30.4 pg Normal 27.0-33.0 Mean Corpuscular HGB Conc 30.5 g/dL Low 32.0-36.5 Red Cell Distribution Width 15.0 % High 11.5-14.5 Platelet Count, Automated 290 10 Normal 150-450 Neutrophils % 77.4 % High 36.0-66.0 Lymph % 8.1 % Low 24.0-44.0 [place] % 12.8 % High 2.0-8.0 Eos % 1.0 % Normal 0.0-3.0 Baso % 0.2 % Normal 0.0-1.0 Immature Granulocyte % 0.5 % Normal 0-3.0 Nucleated Red Blood Cell % 0.0 % Normal 0-0 Neutrophils # 3.3 10 Normal 1.5-8.5 Lymph # 0.3 10 Low 1.5-5.0 [place] # 0.5 10 Normal 0.0-0.8 Eos # 0.0 10 Normal 0.0-0.5 Baso # 0.0 10 Normal 0.0-0.2 CBC With Differential 04/20/2021 [place] [address] [phone] White Blood Count 3.9 10 Low 4.0-10.0 Red Blood Count 2.28 10 Low 4.00-5.40 Hemoglobin 6.8 g/dL Critical low 12.0-15.5 Hematocrit 23.4 % Low 36.0-47.0 Mean Corpuscular Volume 102.6 fl High 80.0-96.0 Mean Corpuscular Hemoglobin 29.8 pg Normal 27.0-33.0 Mean Corpuscular HGB Conc 29.1 g/dL Low 32.0-36.5 Red Cell Distribution Width 17.6 % High 11.5-14.5 Platelet Count, Automated 276 10 Normal 150-450 Neutrophils % 77.0 % High 36.0-66.0 Lymph % 8.8 % Low 24.0-44.0 [place] % 11.9 % High 2.0-8.0 Eos % 1.0 % Normal 0.0-3.0 Baso % 0.5 % Normal 0.0-1.0 Immature Granulocyte % 0.8 % Normal 0-3.0 Nucleated Red Blood Cell % 0.0 % Normal 0-0 Neutrophils # 3.0 10 Normal 1.5-8.5 Lymph # 0.3 10 Low 1.5-5.0 [place] # 0.5 10 Normal 0.0-0.8 Eos # 0.0 10 Normal 0.0-0.5 Baso # 0.0 10 Normal 0.0-0.2 CBC With Differential 04/12/2021 [place] [address] [phone] White Blood Count 4.6 10 Normal 4.0-10.0 Red Blood Count 2.91 10 Low 4.00-5.40 Hemoglobin 8.9 g/dL Low 12.0-15.5 Hematocrit 28.8 % Low 36.0-47.0 Mean Corpuscular Volume 99.0 fl High 80.0-96.0 Mean Corpuscular Hemoglobin 30.6 pg Normal 27.0-33.0 Mean Corpuscular HGB Conc 30.9 g/dL Low 32.0-36.5 Red Cell Distribution Width 18.1 % High 11.5-14.5 Platelet Count, Automated 225 10 Normal 150-450 Neutrophils % 82.5 % High 36.0-66.0 Lymph % 6.6 % Low 24.0-44.0 [place] % 9.4 % High 2.0-8.0 Eos % 0.9 % Normal 0.0-3.0 Baso % 0.2 % Normal 0.0-1.0 Immature Granulocyte % 0.4 % Normal 0-3.0 Nucleated Red Blood Cell % 0.0 % Normal 0-0 Neutrophils # 3.8 10 Normal 1.5-8.5 Lymph # 0.3 10 Low 1.5-5.0 [place] # 0.4 10 Normal 0.0-0.8 Eos # 0.0 10 Normal 0.0-0.5 Baso # 0.0 10 Normal 0.0-0.2 Coronavirus 2019 Nasopharygeal 04/10/2021 [place] [address] [phone] Coronavirus 2019 Nasopharygeal ASSAY INFORMATIO <SEE N OTE> 11 Total Iron Binding Capacit 04/07/2021 [place] [address] [phone] Iron (Fe) 48 g/dL Low 50-170 Total Iron Binding Capacity 353 g/dL Normal 250-450 Percent Saturation 13.6 % Normal 13.2-45.0 Type & Screen -Incl Blood Type,Tye,AB SC 04/07/2021 Patient Service [facility] [place], [place] [id number] [phone] Blood Type O POSITIVE Normal AB Screen (Indirect Farooq)Vis NEGATIVE Normal Laboratory test finding 04/07/2021 [place] [address] [phone] Packed Cells TRANSFUSED PRODU <SEE NOTE> 12 Laboratory test finding 04/07/2021 [place] [address] [phone] Carcinoembryonic Antigen < 0.5 NG/ML Normal <2.5 13 Ferritin 66 NG/ML Normal 8-252 Comprehensive Metabolic Profil 04/07/2021 [place] [address] [phone] Glucose, Fasting 184 mg/dL High 70-100 Blood Urea Nitrogen 30 mg/dL High 7-18 Creatinine For GFR 0.81 mg/dL Normal 0.55-1.30 Glomerular Filtration Rate > 60.0 Normal >32 1 4 Sodium Level 141 mEq/L Normal 136-145 Potassium Serum 4.4 mEq/L Normal 3.5-5.1 Chloride Level 107 mEq/L Normal 98-107 Carbon Dioxide Level 27 mEq/L Normal 21-32 Anion Gap 7 mEq/L Low 8-16 Calcium Level 8.9 mg/dL Normal 8.8-10.2 Ast/Sgot 11 U/L Normal 7-37 Alt/SGPT 12 U/L Normal 12-78 Alkaline Phosphatase 82 U/L Normal 45-117 Bilirubin,Total 0.6 mg/dL Normal 0.2-1.0 Total Protein 5.7 GM/DL Low 6.4-8.2 Albumin 2.9 GM/DL Low 3.2-5.2 Albumin/Globulin Ratio 1.0 Low 1.2-2.2 CBC With Differential 04/07/2021 [place] [address] [phone] White Blood Count 3.4 10 Low 4.0-10.0 Red Blood Count 2.12 10 Low 4.00-5.40 Hemoglobin 6.6 g/dL Critical low 12.0-15.5 Hematocrit 22.6 % Low 36.0-47.0 Mean Corpuscular Volume 106.6 fl High 80.0-96.0 Mean Corpuscular Hemoglobin 31.1 pg Normal 27.0-33.0 Mean Corpuscular HGB Conc 29.2 g/dL Low 32.0-36.5 Red Cell Distribution Width 17.9 % High 11.5-14.5 Platelet Count, Automated 290 10 Normal 150-450 Neutrophils % 78.5 % High 36.0-66.0 Lymph % 8.5 % Low 24.0-44.0 [place] % 10.9 % High 2.0-8.0 Eos % 0.9 % Normal 0.0-3.0 Baso % 0.6 % Normal 0.0-1.0 Immature Granulocyte % 0.6 % Normal 0-3.0 Nucleated Red Blood Cell % 0.0 % Normal 0-0 Neutrophils # 2.7 10 Normal 1.5-8.5 Lymph # 0.3 10 Low 1.5-5.0 [place] # 0.4 10 Normal 0.0-0.8 Eos # 0.0 10 Normal 0.0-0.5 Baso # 0.0 10 Normal 0.0-0.2 Comprehensive Metabolic Profil 03/24/2021 [place] [address] [phone] Glucose, Fasting 96 mg/dL Normal 70-100 Blood Urea Nitrogen 35 mg/dL High 7-18 Creatinine For GFR 0.78 mg/dL Normal 0.55-1.30 Glomerular Filtration Rate > 60.0 Normal >32 1 5 Sodium Level 141 mEq/L Normal 136-145 Potassium Serum 4.3 mEq/L Normal 3.5-5.1 Chloride Level 111 mEq/L High 98-107 Carbon Dioxide Level 24 mEq/L Normal 21-32 Anion Gap 6 mEq/L Low 8-16 Calcium Level 9.1 mg/dL Normal 8.8-10.2 Ast/Sgot 10 U/L Normal 7-37 Alt/SGPT 14 U/L Normal 12-78 Alkaline Phosphatase 79 U/L Normal 45-117 Bilirubin,Total 0.8 mg/dL Normal 0.2-1.0 Total Protein 6.0 GM/DL Low 6.4-8.2 Albumin 3.0 GM/DL Low 3.2-5.2 Albumin/Globulin Ratio 1.0 Low 1.2-2.2 Influenza A/B RSV Covid Amp 03/24/2021 [place] [address] [phone] Influenza A Amplification NEGATIVE Normal Negati ve 16 Influenza B Amplification NEGATIVE Normal Negative 17 RSV Amplification NEGATIVE Normal Negative 18 Sars Covid-19 Amplification NEGATIVE Normal Negative 19 Laboratory test finding 03/24/2021 [place] [address] [phone] Packed Cells TRANSFUSED PRODU <SEE NOTE> 20 CBC With Differential 03/24/2021 [place] [address] [phone] White Blood Count 4.6 10 Normal 4.0-10.0 Red Blood Count 1.77 10 Low 4.00-5.40 Hemoglobin 5.7 g/dL Critical low 12.0-15.5 Hematocrit 19.5 % Low 36.0-47.0 Mean Corpuscular Volume 110.2 fl High 80.0-96.0 Mean Corpuscular Hemoglobin 32.2 pg Normal 27.0-33.0 Mean Corpuscular HGB Conc 29.2 g/dL Low 32.0-36.5 Red Cell Distribution Width 21.8 % High 11.5-14.5 Platelet Count, Automated 290 10 Normal 150-450 Neutrophils % 81.2 % High 36.0-66.0 Lymph % 6.2 % Low 24.0-44.0 [place] % 11.4 % High 2.0-8.0 Eos % 0.4 % Normal 0.0-3.0 Baso % 0.4 % Normal 0.0-1.0 Immature Granulocyte % 0.4 % Normal 0-3.0 Nucleated Red Blood Cell % 0.7 % High 0-0 Neutrophils # 3.7 10 Normal 1.5-8.5 Lymph # 0.3 10 Low 1.5-5.0 [place] # 0.5 10 Normal 0.0-0.8 Eos # 0.0 10 Normal 0.0-0.5 Baso # 0.0 10 Normal 0.0-0.2 Hemoglobin A1c 03/17/2021 [facility] [address] [place] [address] [phone] Hemoglobin A1c 4.8 % 4.8-5.6 21 Albumin/Creatinine Ratio, Random Urine 03/17/2021 [facility] [address] [place] [address] [phone] Creatinine, Urine 120.2 mg/dL Not Estab. Albumin, Urine 20.1 ug/mL Not Estab. Alb/Creat Ratio 17 mg/gcreat 0-29 22 Lipid Panel 03/17/2021 [facility] [address] [place], [place] [id number] [phone] Cholesterol, Total 123 mg/dL 100-199 Triglycerides 141 mg/dL 0-149 HDL Cholesterol 37 mg/dL Low >39 VLDL Cholesterol Mark 25 mg/dL 5-40 LDL Chol Calc ([facility]) 61 mg/dL 0-99 Comment: TNP Metabolic Panel (14), Comprehensive 03/17/2021 [facility] [address] [place], [place] [id number] [phone] Calcium 9.5 mg/dL 8.7-10.3 Glucose 81 mg/dL 65-99 BUN 30 mg/dL High 8-27 Creatinine 0.77 mg/dL 0.57-1.00 eGFR If NonAfricn Am 73 mL/min/1.73 >59 eGFR If Africn Am 84 mL/min/1.73 >59 23 BUN/Creatinine Ratio 39 High 12-28 Sodium 142 mmol/L 134-144 Potassium 4.4 mmol/L 3.5-5.2 Chloride 108 mmol/L High 96-106 Carbon Dioxide, Total 22 mmol/L 20-29 Protein, Total 6.1 g/dL 6.0-8.5 Albumin 4.0 g/dL 3.6-4.6 Globulin, Total 2.1 g/dL 1.5-4.5 A/G Ratio 1.9 1.2-2.2 Bilirubin, Total 0.7 mg/dL 0.0-1.2 Alkaline Phosphatase 91 IU/L 48-121 24 Ast (Sgot) 12 IU/L 0-40 Alt (SGPT) 8 IU/L 0-32 CBC With Differential [facility]/14[facility] [place] [address] [phone] White Blood Count 4.0 10 Normal 4.0-10.0 Red Blood Count 1.98 10 Low 4.00-5.40 Hemoglobin 6.6 g/dL Critical low 12.0-15.5 Hematocrit 22.3 % Low 36.0-47.0 Mean Corpuscular Volume 112.6 fl High 80.0-96.0 Mean Corpuscular Hemoglobin 33.3 pg High 27.0-33.0 Mean Corpuscular HGB Conc 29.6 g/dL Low 32.0-36.5 Red Cell Distribution Width 19.3 % High 11.5-14.5 Platelet Count, Automated 267 10 Normal 150-450 Neutrophils % 81.8 % High 36.0-66.0 Lymph % 6.8 % Low 24.0-44.0 [place] % 9.3 % High 2.0-8.0 Eos % 1.0 % Normal 0.0-3.0 Baso % 0.8 % Normal 0.0-1.0 Immature Granulocyte % 0.3 % Normal 0-3.0 Nucleated Red Blood Cell % 0.0 % Normal 0-0 Neutrophils # 3.3 10 Normal 1.5-8.5 Lymph # 0.3 10 Low 1.5-5.0 [place] # 0.4 10 Normal 0.0-0.8 Eos # 0.0 10 Normal 0.0-0.5 Baso # 0.0 10 Normal 0.0-0.2 Type & Screen -Incl Blood Type,Tye,AB SC 03/14/2021 [place] [address] [phone] Blood Type O POSITIVE Normal AB Screen (Indirect Farooq)Vis NEGATIVE Normal Laboratory test finding 03/14/2021 [place] [address] [phone] Packed Cells TRANSFUSED PRODU <SEE NOTE> 25 CBC With Differential 03/10/2021 [place] [address] [phone] White Blood Count 3.4 10 Low 4.0-10.0 Red Blood Count 2.38 10 Low 4.00-5.40 Hemoglobin 7.8 g/dL Low 12.0-15.5 Hematocrit 25.8 % Low 36.0-47.0 Mean Corpuscular Volume 108.4 fl High 80.0-96.0 Mean Corpuscular Hemoglobin 32.8 pg Normal 27.0-33.0 Mean Corpuscular HGB Conc 30.2 g/dL Low 32.0-36.5 Red Cell Distribution Width 19.5 % High 11.5-14.5 Platelet Count, Automated 267 10 Normal 150-450 Neutrophils % 77.4 % High 36.0-66.0 Lymph % 7.6 % Low 24.0-44.0 [place] % 12.9 % High 2.0-8.0 Eos % 1.2 % Normal 0.0-3.0 Baso % 0.6 % Normal 0.0-1.0 Immature Granulocyte % 0.3 % Normal 0-3.0 Nucleated Red Blood Cell % 0.0 % Normal 0-0 Neutrophils # 2.6 10 Normal 1.5-8.5 Lymph # 0.3 10 Low 1.5-5.0 [place] # 0.4 10 Normal 0.0-0.8 Eos # 0.0 10 Normal 0.0-0.5 Baso # 0.0 10 Normal 0.0-0.2 Comprehensive Metabolic Profil 03/10/20[address] [place] [address] [phone] Glucose, Fasting 166 mg/dL High 70-100 Blood Urea Nitrogen 26 mg/dL High 7-18 Creatinine For GFR 0.73 mg/dL Normal 0.55-1.30 Glomerular Filtration Rate > 60.0 Normal >32 2 6 Sodium Level 141 mEq/L Normal 136-145 Potassium Serum 4.4 mEq/L Normal 3.5-5.1 Chloride Level 108 mEq/L High 98-107 Carbon Dioxide Level 28 mEq/L Normal 21-32 Anion Gap 5 mEq/L Low 8-16 Calcium Level 8.9 mg/dL Normal 8.8-10.2 Ast/Sgot 7 U/L Normal 7-37 Alt/SGPT 13 U/L Normal 12-78 Alkaline Phosphatase 80 U/L Normal 45-117 Bilirubin,Total 0.7 mg/dL Normal 0.2-1.0 Total Protein 6.1 GM/DL Low 6.4-8.2 Albumin 3.1 GM/DL Low 3.2-5.2 Albumin/Globulin Ratio 1.0 Low 1.2-2.2 Total Iron Binding Capacit 03/10/2021 [place] [address] [phone] Iron (Fe) 72 g/dL Normal 50-170 Total Iron Binding Capacity 352 g/dL Normal 250-450 Percent Saturation 20.5 % Normal 13.2-45.0 Laboratory test finding 03/10/2021 [place] [address] [phone] Carcinoembryonic Antigen < 0.5 NG/ML Normal <2.5 27 Ferritin 492 NG/ML High 8-252 Laboratory test finding 02/28/2021 [place] [address] [phone] Packed Cells TRANSFUSED PRODU <SEE NOTE> 28 Type & Screen -Incl Blood Type,Tye,AB SC 02/28/2021 [place] [address] [phone] Blood Type O POSITIVE Normal AB Screen (Indirect Farooq)Vis NEGATIVE Normal Laboratory test finding 02/27/2021 Patient Service [place] [id number] [phone] Blood Urea Nitrogen 26 mg/dL High 7-18 Creatinine With GFR 02/27/2021 [place] [address] [phone] Creatinine For GFR 0.76 mg/dL Normal 0.55-1.30 Glomerular Filtration Rate > 60.0 Normal >32 2 9 Total Iron Binding Capacit 02/27/2021 [place] [address] [phone] Iron (Fe) 79 g/dL Normal 50-170 Total Iron Binding Capacity 384 g/dL Normal 250-450 Percent Saturation 20.6 % Normal 13.2-45.0 Laboratory test finding 02/27/2021 Patient Service [place] [id number] [phone] Ferritin 1039 NG/ML High 8-252 CBC With Differential 02/27/2021 [place] [address] [phone] White Blood Count 6.0 10 Normal 4.0-10.0 Red Blood Count 2.00 10 Low 4.00-5.40 Hemoglobin 6.5 g/dL Critical low 12.0-15.5 Hematocrit 22.5 % Low 36.0-47.0 Mean Corpuscular Volume 112.5 fl High 80.0-96.0 Mean Corpuscular Hemoglobin 32.5 pg Normal 27.0-33.0 Mean Corpuscular HGB Conc 28.9 g/dL Low 32.0-36.5 Red Cell Distribution Width 24.1 % High 11.5-14.5 Platelet Count, Automated 316 10 Normal 150-450 Neutrophils % 82.1 % High 36.0-66.0 Lymph % 4.7 % Low 24.0-44.0 [place] % 11.6 % High 2.0-8.0 Eos % 0.5 % Normal 0.0-3.0 Baso % 0.3 % Normal 0.0-1.0 Immature Granulocyte % 0.8 % Normal 0-3.0 Nucleated Red Blood Cell % 0.3 % High 0-0 Neutrophils # 4.9 10 Normal 1.5-8.5 Lymph # 0.3 10 Low 1.5-5.0 [place] # 0.7 10 Normal 0.0-0.8 Eos # 0.0 10 Normal 0.0-0.5 Baso # 0.0 10 Normal 0.0-0.2 Laboratory test finding 02/10/2021 [place] [address] [phone] Packed Cells TRANSFUSED PRODU <SEE NOTE> 30 Type & Screen -Incl Blood Type,Tye,AB SC 02/10/2021 [place] [address] [phone] Blood Type O POSITIVE Normal AB Screen (Indirect Farooq)Vis NEGATIVE Normal CBC With Differential 02/09/2021 [place] [address] [phone] White Blood Count 3.9 10 Low 4.0-10.0 Red Blood Count 2.44 10 Low 4.00-5.40 Hemoglobin 7.2 g/dL Low 12.0-15.5 Hematocrit 24.6 % Low 36.0-47.0 Mean Corpuscular Volume 100.8 fl High 80.0-96.0 Mean Corpuscular Hemoglobin 29.5 pg Normal 27.0-33.0 Mean Corpuscular HGB Conc 29.3 g/dL Low 32.0-36.5 Red Cell Distribution Width 18.6 % High 11.5-14.5 Platelet Count, Automated 283 10 Normal 150-450 Neutrophils % 80.8 % High 36.0-66.0 Lymph % 7.2 % Low 24.0-44.0 [place] % 10.0 % High 2.0-8.0 Eos % 1.0 % Normal 0.0-3.0 Baso % 0.5 % Normal 0.0-1.0 Immature Granulocyte % 0.5 % Normal 0-3.0 Nucleated Red Blood Cell % 0.0 % Normal 0-0 Neutrophils # 3.1 10 Normal 1.5-8.5 Lymph # 0.3 10 Low 1.5-5.0 [place] # 0.4 10 Normal 0.0-0.8 Eos # 0.0 10 Normal 0.0-0.5 Baso # 0.0 10 Normal 0.0-0.2 Total Iron Binding Capacit 01/27/2021 [place] [address] [phone] Iron (Fe) 59 g/dL Normal 50-170 Total Iron Binding Capacity 397 g/dL Normal 250-450 Percent Saturation 14.9 % Normal 13.2-45.0 Laboratory test finding 01/27/2021 [place] [address] [phone] Ferritin 39 NG/ML Normal 8-252 Carcinoembryonic Antigen 0.5 NG/ML Normal <2.5 31 Comprehensive Metabolic Profil 01/27/2021 [facility] [place] [address] [phone] Glucose, Fasting 59 mg/dL Low 70-100 Blood Urea Nitrogen 25 mg/dL High 7-18 Creatinine For GFR 0.71 mg/dL Normal 0.55-1.30 Glomerular Filtration Rate > 60.0 Normal >32 3 2 Sodium Level 141 mEq/L Normal 136-145 Potassium Serum 4.3 mEq/L Normal 3.5-5.1 Chloride Level 109 mEq/L High 98-107 Carbon Dioxide Level 28 mEq/L Normal 21-32 Anion Gap 4 mEq/L Low 8-16 Calcium Level 9.4 mg/dL Normal 8.8-10.2 Ast/Sgot 8 U/L Normal 7-37 Alt/SGPT 14 U/L Normal 12-78 Alkaline Phosphatase 86 U/L Normal 45-117 Bilirubin,Total 0.8 mg/dL Normal 0.2-1.0 Total Protein 6.2 GM/DL Low 6.4-8.2 Albumin 3.2 GM/DL Normal 3.2-5.2 Albumin/Globulin Ratio 1.1 Low 1.2-2.2 CBC With Differential 01/27/2021 [place] [address] [phone] White Blood Count 4.2 10 Normal 4.0-10.0 Red Blood Count 3.81 10 Low 4.00-5.40 Hemoglobin 11.2 g/dL Low 12.0-15.5 Hematocrit 36.4 % Normal 36.0-47.0 Mean Corpuscular Volume 95.5 fl Normal 80.0-96.0 Mean Corpuscular Hemoglobin 29.4 pg Normal 27.0-33.0 Mean Corpuscular HGB Conc 30.8 g/dL Low 32.0-36.5 Red Cell Distribution Width 17.1 % High 11.5-14.5 Platelet Count, Automated 330 10 Normal 150-450 Neutrophils % 69.4 % High 36.0-66.0 Lymph % 13.6 % Low 24.0-44.0 [place] % 14.6 % High 2.0-8.0 Eos % 1.4 % Normal 0.0-3.0 Baso % 0.5 % Normal 0.0-1.0 Immature Granulocyte % 0.5 % Normal 0-3.0 Nucleated Red Blood Cell % 0.0 % Normal 0-0 Neutrophils # 2.9 10 Normal 1.5-8.5 Lymph # 0.6 10 Low 1.5-5.0 [place] # 0.6 10 Normal 0.0-0.8 Eos # 0.1 10 Normal 0.0-0.5 Baso # 0.0 10 Normal 0.0-0.2 Complete Blood Count 01/20/2021 [place] [address] [phone] White Blood Count 3.3 10 Low 4.0-10.0 Red Blood Count 1.89 10 Low 4.00-5.40 Hemoglobin 5.8 g/dL Critical low 12.0-15.5 Hematocrit 19.4 % Low 36.0-47.0 Mean Corpuscular Volume 102.6 fl High 80.0-96.0 Mean Corpuscular Hemoglobin 30.7 pg Normal 27.0-33.0 Mean Corpuscular HGB Conc 29.9 g/dL Low 32.0-36.5 Red Cell Distribution Width 16.3 % High 11.5-14.5 Platelet Count, Automated 336 10 Normal 150-450 Nucleated Red Blood Cell % 0.0 % Normal 0-0 Laboratory test finding 01/20/2021 [place] [address] [phone] Blood Urea Nitrogen 21 mg/dL High 7-18 Creatinine With GFR 01/20/2021 [place] [address] [phone] Creatinine For GFR 0.69 mg/dL Normal 0.55-1.30 Glomerular Filtration Rate > 60.0 Normal >32 3 3 Type & Screen -Incl Blood Type,Tye,AB SC 01/20/2021 [place] [address] [phone] Blood Type O POSITIVE Normal AB Screen (Indirect Farooq)Vis NEGATIVE Normal Coronavirus 2019 Nasopharygeal 01/16/2021 [place] [address] [phone] Coronavirus 2019 Nasopharygeal ASSAY INFORMATIO <SEE N OTE> 34 Type & Screen -Incl Blood Type,Tye,AB SC 01/03/2021 [place] [address] [phone] Blood Type O POSITIVE Normal AB Screen (Indirect Farooq)Vis NEGATIVE Normal Laboratory test finding 01/03/2021 [place] [address] [phone] Packed Cells TRANSFUSED PRODU <SEE NOTE> 35 CBC With Differential 01/02/2021 [place] [address] [phone] White Blood Count 4.3 10 Normal 4.0-10.0 Red Blood Count 2.48 10 Low 4.00-5.40 Hemoglobin 8.1 g/dL Low 12.0-15.5 Hematocrit 25.8 % Low 36.0-47.0 Mean Corpuscular Volume 104.0 fl High 80.0-96.0 Mean Corpuscular Hemoglobin 32.7 pg Normal 27.0-33.0 Mean Corpuscular HGB Conc 31.4 g/dL Low 32.0-36.5 Red Cell Distribution Width 18.2 % High 11.5-14.5 Platelet Count, Automated 315 10 Normal 150-450 Neutrophils % 74.5 % High 36.0-66.0 Lymph % 10.7 % Low 24.0-44.0 [place] % 13.1 % High 2.0-8.0 Eos % 0.7 % Normal 0.0-3.0 Baso % 0.5 % Normal 0.0-1.0 Immature Granulocyte % 0.5 % Normal 0-3.0 Nucleated Red Blood Cell % 0.0 % Normal 0-0 Neutrophils # 3.2 10 Normal 1.5-8.5 Lymph # 0.5 10 Low 1.5-5.0 [place] # 0.6 10 Normal 0.0-0.8 Eos # 0.0 10 Normal 0.0-0.5 Baso # 0.0 10 Normal 0.0-0.2 Laboratory test finding 01/02/2021 Patient [facility] [place], [place] [address] [phone] Thyroid Stimulating Hormone 1.660 uIU/ML Normal 0. 358-3.740 Free T4 0.87 ng/dL Normal 0.76-1.46 Ferritin 58 NG/ML Normal 8-252 Comprehensive Metabolic Profil 01/02/2021 Patient S [place], [place] [id number] [phone] Glucose, Fasting 155 mg/dL High 70-100 Blood Urea Nitrogen 24 mg/dL High 7-18 Creatinine For GFR 0.85 mg/dL Normal 0.55-1.30 Glomerular Filtration Rate > 60.0 Normal >32 3 6 Sodium Level 137 mEq/L Normal 136-145 Potassium Serum 4.4 mEq/L Normal 3.5-5.1 Chloride Level 105 mEq/L Normal 98-107 Carbon Dioxide Level 27 mEq/L Normal 21-32 Anion Gap 5 mEq/L Low 8-16 Calcium Level 8.7 mg/dL Low 8.8-10.2 Ast/Sgot 11 U/L Normal 7-37 Alt/SGPT 13 U/L Normal 12-78 Alkaline Phosphatase 80 U/L Normal 45-117 Bilirubin,Total 0.6 mg/dL Normal 0.2-1.0 Total Protein 6.6 GM/DL Normal 6.4-8.2 Albumin 3.5 GM/DL Normal 3.2-5.2 Albumin/Globulin Ratio 1.1 Low 1.2-2.2 Total Iron Binding Capacit 01/02/2021 [place] [address] [phone] Iron (Fe) 55 g/dL Normal 50-170 Total Iron Binding Capacity 398 g/dL Normal 250-450 Percent Saturation 13.8 % Normal 13.2-45.0 Laboratory test finding 12/23/2020 [place] [address] [phone] iSTAT Troponin 0.01 NG/ML Normal 0.00-0.08 Istat Chem8+ Panel 12/23/2020 [place] [address] [phone] iSTAT HCT 33.0 % Low 38.0-51.0 iSTAT Glucose 94 mg/dL Normal 70-105 iSTAT Sodium 138 mEq/L Normal 136-145 iSTAT Potassium 4.2 mEq/L Normal 3.5-5.1 iSTAT CA++ 5.0 mg/dL Normal 4.5-5.3 iSTAT Chloride 102 mEq/L Normal 98-109 iSTAT Co2 27.0 MM/L Normal 23.0-27.0 iSTAT BUN 20 mg/dL Normal 8-26 iSTAT Creatinine 0.7 mg/dL Normal 0.6-1.3 CBC With Differential 12/23/2020 [place] [address] [phone] White Blood Count 4.5 10 Normal 4.0-10.0 Red Blood Count 3.26 10 Low 4.00-5.40 Hemoglobin 10.2 g/dL Low 12.0-15.5 Hematocrit 32.3 % Low 36.0-47.0 Mean Corpuscular Volume 99.1 fl High 80.0-96.0 Mean Corpuscular Hemoglobin 31.3 pg Normal 27.0-33.0 Mean Corpuscular HGB Conc 31.6 g/dL Low 32.0-36.5 Red Cell Distribution Width 16.4 % High 11.5-14.5 Platelet Count, Automated 259 10 Normal 150-450 Neutrophils % 76.7 % High 36.0-66.0 Lymph % 9.7 % Low 24.0-44.0 [place] % 11.9 % High 2.0-8.0 Eos % 0.9 % Normal 0.0-3.0 Baso % 0.4 % Normal 0.0-1.0 Immature Granulocyte % 0.4 % Normal 0-3.0 Nucleated Red Blood Cell % 0.0 % Normal 0-0 Neutrophils # 3.5 10 Normal 1.5-8.5 Lymph # 0.4 10 Low 1.5-5.0 [place] # 0.5 10 Normal 0.0-0.8 Eos # 0.0 10 Normal 0.0-0.5 Baso # 0.0 10 Normal 0.0-0.2 PT & Aptt 12/23/2020 [place] [address] [phone] Prothrombin Time 13.3 seconds Normal 12.5-14.3 Inr 0.99 Normal 37 Partial Thromboplastin Time 29.5 seconds Normal 24.2-38.5 Liver Profile 12/23/2020 [place] [address] [phone] Ast/Sgot 13 U/L Normal 7-37 Alt/SGPT 14 U/L Normal 12-78 Alkaline Phosphatase 95 U/L Normal 45-117 Bilirubin,Total 0.9 mg/dL Normal 0.2-1.0 Bilirubin,Direct 0.3 mg/dL High 0.0-0.2 Total Protein 6.5 GM/DL Normal 6.4-8.2 Albumin 3.4 GM/DL Normal 3.2-5.2 Albumin/Globulin Ratio 1.1 Low 1.2-2.2 Laboratory test finding 12/23/2020 [place] [address] [phone] Lipase 73 U/L Normal 73-393 Lactic Acid Sepsis Protocol 0.8 mmol/L Normal 0.4-2.0 38 CBC With Differential 12/19/2020 [place] [address] [phone] White Blood Count 3.8 10 Low 4.0-10.0 Red Blood Count 3.30 10 Low 4.00-5.40 Hemoglobin 10.1 g/dL Low 12.0-15.5 Hematocrit 32.9 % Low 36.0-47.0 Mean Corpuscular Volume 99.7 fl High 80.0-96.0 Mean Corpuscular Hemoglobin 30.6 pg Normal 27.0-33.0 Mean Corpuscular HGB Conc 30.7 g/dL Low 32.0-36.5 Red Cell Distribution Width 16.2 % High 11.5-14.5 Platelet Count, Automated 241 10 Normal 150-450 Neutrophils % 74.5 % High 36.0-66.0 Lymph % 11.7 % Low 24.0-44.0 [place] % 11.9 % High 2.0-8.0 Eos % 1.1 % Normal 0.0-3.0 Baso % 0.3 % Normal 0.0-1.0 Immature Granulocyte % 0.5 % Normal 0-3.0 Nucleated Red Blood Cell % 0.0 % Normal 0-0 Neutrophils # 2.8 10 Normal 1.5-8.5 Lymph # 0.4 10 Low 1.5-5.0 [place] # 0.5 10 Normal 0.0-0.8 Eos # 0.0 10 Normal 0.0-0.5 Baso # 0.0 10 Normal 0.0-0.2 CBC With Differential 12/05/2020 Patient Service Ce [place], [place] [address] [phone] White Blood Count 3.4 10 Low 4.0-10.0 Red Blood Count 3.86 10 Low 4.00-5.40 Hemoglobin 11.9 g/dL Low 12.0-15.5 Hematocrit 38.4 % Normal 36.0-47.0 Mean Corpuscular Volume 99.5 fl High 80.0-96.0 Mean Corpuscular Hemoglobin 30.8 pg Normal 27.0-33.0 Mean Corpuscular HGB Conc 31.0 g/dL Low 32.0-36.5 Red Cell Distribution Width 15.8 % High 11.5-14.5 Platelet Count, Automated 397 10 Normal 150-450 Neutrophils % 71.4 % High 36.0-66.0 Lymph % 12.8 % Low 24.0-44.0 [place] % 13.7 % High 2.0-8.0 Eos % 1.2 % Normal 0.0-3.0 Baso % 0.6 % Normal 0.0-1.0 Immature Granulocyte % 0.3 % Normal 0-3.0 Nucleated Red Blood Cell % 0.0 % Normal 0-0 Neutrophils # 2.4 10 Normal 1.5-8.5 Lymph # 0.4 10 Low 1.5-5.0 [place] # 0.5 10 Normal 0.0-0.8 Eos # 0.0 10 Normal 0.0-0.5 Baso # 0.0 10 Normal 0.0-0.2 Laboratory test finding 12/05/2020 [place] [address] [phone] Ferritin 108 NG/ML Normal 8-252 Total Iron Binding Capacit 12/05/2020 [place] [address] [phone] Iron (Fe) 94 g/dL Normal 50-170 Total Iron Binding Capacity 350 g/dL Normal 250-450 Percent Saturation 26.9 % Normal 13.2-45.0 PT & Aptt 12/05/2020 [place] [address] [phone] Prothrombin Time 13.3 seconds Normal 12.5-14.3 Inr 0.99 Normal 39 Partial Thromboplastin Time 29.4 seconds Normal 24.2-38.5 PT & Aptt 11/25/2020 [place] [address] [phone] Prothrombin Time 16.4 seconds High 12.5-14.3 Inr 1.29 Normal 40 Partial Thromboplastin Time 33.4 seconds Normal 24.2-38.5 Complete Blood Count 11/25/2020 [place] [address] [phone] White Blood Count 4.4 10 Normal 4.0-10.0 Red Blood Count 1.75 10 Low 4.00-5.40 Hemoglobin 5.6 g/dL Critical low 12.0-15.5 Hematocrit 19.0 % Low 36.0-47.0 Mean Corpuscular Volume 108.6 fl High 80.0-96.0 Mean Corpuscular Hemoglobin 32.0 pg Normal 27.0-33.0 Mean Corpuscular HGB Conc 29.5 g/dL Low 32.0-36.5 Red Cell Distribution Width 20.7 % High 11.5-14.5 Platelet Count, Automated 346 10 Normal 150-450 Nucleated Red Blood Cell % 1.6 % High 0-0 Comprehensive Metabolic Profil 11/25/[address] [place] [address] [phone] Glucose, Fasting 110 mg/dL High 70-100 Blood Urea Nitrogen 22 mg/dL High 7-18 Creatinine For GFR 0.68 mg/dL Normal 0.55-1.30 Glomerular Filtration Rate > 60.0 Normal >32 4 1 Sodium Level 140 mEq/L Normal 136-145 Potassium Serum 4.7 mEq/L Normal 3.5-5.1 Chloride Level 111 mEq/L High 98-107 Carbon Dioxide Level 23 mEq/L Normal 21-32 Anion Gap 6 mEq/L Low 8-16 Calcium Level 8.1 mg/dL Low 8.8-10.2 Ast/Sgot 15 U/L Normal 7-37 Alt/SGPT 15 U/L Normal 12-78 Alkaline Phosphatase 90 U/L Normal 45-117 Bilirubin,Total 0.6 mg/dL Normal 0.2-1.0 Total Protein 6.0 GM/DL Low 6.4-8.2 Albumin 3.0 GM/DL Low 3.2-5.2 Albumin/Globulin Ratio 1.0 Low 1.2-2.2 Cardiac Marker Panel 11/25/2020 [place] [address] [phone] CPK Creatine Phosphokinase 60 U/L Normal 26-19 2 CK-MB Value Mass 1.3 NG/ML Normal <3.6 MB/CK Relative Index 2.17 Normal < Or =4 42 Troponin I < 0.02 NG/ML Normal < 0.10 43 Laboratory test finding 11/25/2020 [place] [address] [phone] NT-Pro BNP 1795 pg/mL High <450 Type & Screen -Incl Blood Type,Tye,AB SC 11/25/2020 [place] [address] [phone] Blood Type O POSITIVE Normal AB Screen (Indirect Farooq)Vis NEGATIVE Normal 1 TRANSFUSED PRODUCT: PACKED C ELLS COUNT: 2 2 TRANSFUSED PRODUCT: PACKED C ELLS COUNT: 1 3 OCCULT BLOOD 1 POSITIVE 4 FVIII activity can increase in a variety of clinical situations including normal , in samples drawn from patients (particularly children) who are visibly stressed at the time of phlebotomy, as acute phase reactants, or in response to certain drug therapies such as DDAVP. Persistently elevated FVIII activity is a risk factor for venous thrombosis as well as recurrence of venous thrombosis. Risk is graded and increases with the degree of elevation. Although elevated FVIII activity has been identified to cluster within families, a genetic basis for the elevation has not yet been elucidated (Br J Haematol. 2012; 157:653-663). 5 This test was developed and its performance characteristics determined by [employer]. It has not been cleared or approved by the Food and Drug Administration. 6 --- COAGULATION: VON WILLEBRAND FACTOR ASSESSMENT CURRENT RESULTS ASSESSMENT The VWF:Ag is normal. The VWF:RCo is normal. The FVIII is elevated. VON WILLEBRAND FACTOR ASSESSMENT CURRENT RESULTS INTERPRETATION - These results are not consistent with a diagnosis of VWD according to the current NHLBI guideline. Persistently elevated FVIII activity is a risk factor for venous thrombosis as well as recurrence of venous thrombosis. Risk is graded and increases with the degree of elevation. Although elevated FVIII activity has been identified to cluster within families, a genetic basis for the elevation has not yet been elucidated (Br J Haematol. 2012; 157(6):653-663). VON WILLEBRAND FACTOR ASSESSMENT - Results may be falsely elevated and possibly falsely normal as VWF and FVIII may increase in samples drawn from patients (particularly children) who are visibly stressed at the time of phlebotomy, as acute phase reactants, or in response to certain drug therapies such as desmopressin. Repeat testing may be necessary before excluding a diagnosis of VWD especially if the clinical suspicion is high for an underlying bleeding disorder. The setting for phlebotomy should be as calm as possible and patients should be encouraged to sit quietly prior to the blood draw. VON WILLEBRAND FACTOR ASSESSMENT DEFINITIONS - VWD - von Willebrand disease; VWF - von Willebrand factor; VWF:Ag - VWF antigen; VWF:RCo - VWF ristocetin cofactor activity; FVIII - factor VIII activity. RING BARKER OPERATOR: For questions regarding panel interpretation, please contact Mikal Wasserman M.D. at [facility] at . DISCLAIMER These assessments and interpretations are provided as a convenience in support of the physician-patient relationship and are not intended to replace the physician's clinical judgment. They are derived from national guidelines in addition to other evidence and expert opinion. The clinician should consider this information within the context of clinical opinion and the individual patient. SEE GUIDANCE FOR VON WILLEBRAND FACTOR ASSESSMENT: (1) The National Heart, Lung and Blood [place]. The Diagnosis, Evaluation and Management of von Willebrand Disease. [place], [place]: National Institutes of Health Publication 08-5832. 2007. Available at http://www.nhlbi.nih.gov/guidelines/vwd/. (2) Tayo MONTES et al. Am J Hematol. 2009; 84(6):366-370. (3) Pam M et al. Haemophilia. 2004;10(3):199-217. (4) Lety WOODRUFF et al. Haemophilia. 2004; 10(3):218-231. 7 TRANSFUSED PRODUCT: PACKED C ELLS COUNT: 2 8 Performed at: [facility] [id number] Enterprise Project Manager: Matt Mcdonnell MD, Phone: [phone] Performed at: [employer] [address] [place] [address] [address], [place], [place] [id number] Enterprise Project Manager: Gary Youngblood MD, Phone: [phone] Performed at: [address] [id number] Enterprise Project Manager: Teresa Nguyen MD, Phone: [phone] UNABLE TO PERFORM TEST DUE T O hct <35% 10 THERAPUTIC HUMAN INR VALUES INDICATIONS NORMAL RANGES PROPHYLAXIS/TREATMENT OF: VENOUS THROMBOSIS 2.0-3.0 PULMONARY EMBOLISM 2.0-3.0 PREVENTION OF SYSTEMIC EMBOLISM FROM: TISSUE HEART VALVES 2.0-3.0 ACUTE MYOCARDIAL INFARCTION 2.0-3.0 VALVULAR HEART DISEASE 2.0-3.0 ATRIAL FIBRILLATION 2.0-3.0 MECHANICAL VALVES(HIGH RISK) 2.5-3.5 RECURRENT MYOCARDIAL INFARCTION 2.5-3.5 11 ASSAY INFORMATION: Real Time RT-PCR or TMA. Both RT-PCR and TMA are nucleic acid amplification tests (NAAT) which are molecular testing modalities and recommended by the CDC for passenger travel. Testing and International Air Travel, cdc.gov/coronavirus/2019-ncov/travelers/busodtl-dse-yidmsa.html 09/01/2020 NOTE: The COVID-19 assay is under Emergency Use Authorization (EUA) by the U.S. Food and Drug Administration. [facility] and [facility] are designated as high complexity laboratories by the Clinical Laboratory Improvement Amendments of 1988 (CLIA) and are qualified to perform this test. Not Detected 12 TRANSFUSED PRODUCT: PACKED C ELLS COUNT: 3 13 THE CEA ASSAY IS PERFORMED O N THE [employer] BY CHEMILUMINESCENCE AND SHOULD NOT BE COMPARED INTERCHANGEABLY WITH OTHER METHODS. IT SHOULD NOT BE USED ALONE A SCREENING TEST OR DIAGNOSIS FOR THE PRESENCE OR ABSENCE OF MALIGNANT DISEASE. PREDICTIONS OF DISEASE RECURRENCE SHOULD NOT BE BASED SOLELY ON VALUES OBTAINED FROM SERIAL PATIENT SERUM VALUES. 14 Units are mL/min/1.73 m2 Chronic Kidney Disease Staging per NKF: Stage I & II GFR >=60 Normal to Mildly Decreased Stage III GFR 30-59 Moderately Decreased Stage IV GFR 15-29 Severely Decreased Stage V GFR <15 Very Little GFR Left ESRD GFR <15 on CNC MILL AND LATHE OPERATOR 15 Units are mL/min/1.73 m2 Chronic Kidney Disease Staging per NKF: Stage I & II GFR >=60 Normal to Mildly Decreased Stage III GFR 30-59 Moderately Decreased Stage IV GFR 15-29 Severely Decreased Stage V GFR <15 Very Little GFR Left ESRD GFR <15 on CNC MILL AND LATHE OPERATOR 16 Negative results do not prec lude influenza or RSV virus infection and should not be used as the sole basis for treatment or other patient management decisions. 17 Negative results do not prec lude influenza or RSV virus infection and should not be used as the sole basis for treatment or other patient management decisions. 18 Negative results do not prec lude influenza or RSV virus infection and should not be used as the sole basis for treatment or other patient management decisions. 19 A false negative result may occur if a specimen is improperly collected, transported or handled. False negative results may also occur if inadequate numbers of organisms are present in the specimen. As with any molecular test, mutations within the target regions of Xpert Xpress SARS-CoV-2 could affect primer and/or probe binding resulting in failure to detect the presence of virus. This test cannot rule out diseases caused by other bacterial or viral pathogens. DISCLAIMER: Testing was performed using the [employer] SARS-CoV-2 test. This test was developed and its performance characteristics determined by [employer]. This test has not been FDA cleared [...] the authorization is terminated or revoked sooner. 20 TRANSFUSED PRODUCT: PACKED C ELLS COUNT: 1 21 Prediabetes: 5.7 - 6.4 Diabetes: >6.4 Glycemic control for adults with diabetes: <7.0 22 Normal: 0 - 29 Moderately increased: 30 - 300 Severely increased: >300 23 [facility] currently reports eGFR in compliance with the current recommendations of the National Kidney Foundation. [facility] will update reporting as new guidelines are published from the NKF-ASN Task force. 24 Effective March 27 21 Alkaline Phosphatase reference interval will be changing to: Age Male Female 0 - 5 days 47 - 127 47 - 127 6 - 10 days 29 - 242 29 - 242 11 - 20 days 109 - 357 109 - 357 21 - 30 days 94 - 494 94 - 494 1 - 2 months 149 - 539 149 - 539 3 - 6 months 131 - 452 131 - 452 7 - 11 months 117 - 401 117 - 401 12 months - 6 years 158 - 369 158 - 369 7 - 12 years 150 - 409 150 - 409 13 years 156 - 435 78 - 227 14 years 114 - 375 64 - 161 15 years 88 - 279 56 - 134 16 years 74 - 207 51 - 121 17 years 63 - 161 47 - 113 18 - 20 years 51 - 125 42 - 106 >20 years 44 - 121 44 - 121 25 TRANSFUSED PRODUCT: PACKED C ELLS COUNT: 2 26 Units are mL/min/1.73 m2 Chronic Kidney Disease Staging per NKF: Stage I & II GFR >=60 Normal to Mildly Decreased Stage III GFR 30-59 Moderately Decreased Stage IV GFR 15-29 Severely Decreased Stage V GFR <15 Very Little GFR Left ESRD GFR <15 on CNC MILL AND LATHE OPERATOR 27 THE CEA ASSAY IS PERFORMED O N THE [employer] BY CHEMILUMINESCENCE AND SHOULD NOT BE COMPARED INTERCHANGEABLY WITH OTHER METHODS. IT SHOULD NOT BE USED ALONE A SCREENING TEST OR DIAGNOSIS FOR THE PRESENCE OR ABSENCE OF MALIGNANT DISEASE. PREDICTIONS OF DISEASE RECURRENCE SHOULD NOT BE BASED SOLELY ON VALUES OBTAINED FROM SERIAL PATIENT SERUM VALUES. 28 TRANSFUSED PRODUCT: PACKED C ELLS COUNT: 2 29 Units are mL/min/1.73 m2 Chronic Kidney Disease Staging per NKF: Stage I & II GFR >=60 Normal to Mildly Decreased Stage III GFR 30-59 Moderately Decreased Stage IV GFR 15-29 Severely Decreased Stage V GFR <15 Very Little GFR Left ESRD GFR <15 on CNC MILL AND LATHE OPERATOR 30 TRANSFUSED PRODUCT: PACKED C ELLS COUNT: 2 31 THE CEA ASSAY IS PERFORMED O N THE [facility] BY CHEMILUMINESCENCE AND SHOULD NOT BE COMPARED INTERCHANGEABLY WITH OTHER METHODS. IT SHOULD NOT BE USED ALONE A SCREENING TEST OR DIAGNOSIS FOR THE PRESENCE OR ABSENCE OF MALIGNANT DISEASE. PREDICTIONS OF DISEASE RECURRENCE SHOULD NOT BE BASED SOLELY ON VALUES OBTAINED FROM SERIAL PATIENT SERUM VALUES. 32 Units are mL/min/1.73 m2 Chronic Kidney Disease Staging per NKF: Stage I & II GFR >=60 Normal to Mildly Decreased Stage III GFR 30-59 Moderately Decreased Stage IV GFR 15-29 Severely Decreased Stage V GFR <15 Very Little GFR Left ESRD GFR <15 on CNC MILL AND LATHE OPERATOR 33 Units are mL/min/1.73 m2 Chronic Kidney Disease Staging per NKF: Stage I & II GFR >=60 Normal to Mildly Decreased Stage III GFR 30-59 Moderately Decreased Stage IV GFR 15-29 Severely Decreased Stage V GFR <15 Very Little GFR Left ESRD GFR <15 on CNC MILL AND LATHE OPERATOR 34 ASSAY INFORMATION: Real Time RT-PCR NOTE: The COVID-19 assay has been cleared by the U.S. Food and Drug Administration under the Emergency Use Authorization (EUA). [facility] and [facility] are designated as high complexity laboratories by the Clinical Laboratory Improvement Amendments of 1988(CLIA) and are qualified to perform this test. Not Detected 35 TRANSFUSED PRODUCT: PACKED C ELLS COUNT: 1 36 Units are mL/min/1.73 m2 Chronic Kidney Disease Staging per NKF: Stage I & II GFR >=60 Normal to Mildly Decreased Stage III GFR 30-59 Moderately Decreased Stage IV GFR 15-29 Severely Decreased Stage V GFR <15 Very Little GFR Left ESRD GFR <15 on [employer] 37 THERAPUTIC HUMAN INR VALUES INDICATIONS NORMAL RANGES PROPHYLAXIS/TREATMENT OF: VENOUS THROMBOSIS 2.0-3.0 PULMONARY EMBOLISM 2.0-3.0 PREVENTION OF SYSTEMIC EMBOLISM FROM: TISSUE HEART VALVES 2.0-3.0 ACUTE MYOCARDIAL INFARCTION 2.0-3.0 VALVULAR HEART DISEASE 2.0-3.0 ATRIAL FIBRILLATION 2.0-3.0 MECHANICAL VALVES(HIGH RISK) 2.5-3.5 RECURRENT MYOCARDIAL INFARCTION 2.5-3.5 38 Y/N query for Sepsis Lactate Rule: Y 39 THERAPUTIC HUMAN INR VALUES INDICATIONS NORMAL RANGES PROPHYLAXIS/TREATMENT OF: VENOUS THROMBOSIS 2.0-3.0 PULMONARY EMBOLISM 2.0-3.0 PREVENTION OF SYSTEMIC EMBOLISM FROM: TISSUE HEART VALVES 2.0-3.0 ACUTE MYOCARDIAL INFARCTION 2.0-3.0 VALVULAR HEART DISEASE 2.0-3.0 ATRIAL FIBRILLATION 2.0-3.0 MECHANICAL VALVES(HIGH RISK) 2.5-3.5 RECURRENT MYOCARDIAL INFARCTION 2.5-3.5 40 THERAPUTIC HUMAN INR VALUES INDICATIONS NORMAL RANGES PROPHYLAXIS/TREATMENT OF: VENOUS THROMBOSIS 2.0-3.0 PULMONARY EMBOLISM 2.0-3.0 PREVENTION OF SYSTEMIC EMBOLISM FROM: TISSUE HEART VALVES 2.0-3.0 ACUTE MYOCARDIAL INFARCTION 2.0-3.0 VALVULAR HEART DISEASE 2.0-3.0 ATRIAL FIBRILLATION 2.0-3.0 MECHANICAL VALVES(HIGH RISK) 2.5-3.5 RECURRENT MYOCARDIAL INFARCTION 2.5-3.5 41 Units are mL/min/1.73 m2 Chronic Kidney Disease Staging per NKF: Stage I & II GFR >=60 Normal to Mildly Decreased Stage III GFR 30-59 Moderately Decreased Stage IV GFR 15-29 Severely Decreased Stage V GFR <15 Very Little GFR Left ESRD GFR <15 on [employer] 42 DIAGNOSIS CRITERIA MMB ng/ml Relative Index (RI) NON-AMI < or = 5 N/A LEVINE ZONE > 5 < or = 4 AMI > 5 > 4 43 Troponin I Reference Interva l for [employer] LOCI: 99th Percentile= 0.00-0.045 ng/ml Risk Stratification: <= 0.10 ng/ml Decreased Risk for Adverse Clinical Events. 0.10-1.50 ng/ml Increased Risk for Adv erse Clinical Events. Evaluation of additional criterion and/or repeat testing in 2-6 hours is suggested to rule out myocardial damage. >= 1.50 ng/ml Indicative of Myocardial Injury. Procedures Date Code Description Status 03/28/2021 [id number] [place] W/I 7 Days Of DC, Comm W/I 2 Dys Completed 03/23/2021 [id number] Office/Outpatient Established Mo d MDM 30-39 Min Completed 03/23/2021 [id number] Diabetic Foot Exam Completed 01/25/2021 [id number] [place] W/I 7 Days Of DC, Comm W/I 2 Dys Completed 12/27/2020 [id number] Office/Outpatient Established Mo d MDM 30-39 Min Completed 12/19/2020 [id number] Office/Outpatient Established Mo d MDM 30-39 Min Completed 12/02/2020 [id number] [place] [facility] W/I 7 Days Of DC, Comm W/I 2 Dys Completed Medical Devices Description No Information Available Encounters Type Date Location Provider Dx Diagnosis Office Visit 03/28/2021 11:45a Main Office Nadiya Bryan FNP D64.9 Anemia, unspecified K29.61 Other gastritis with bleedin g Office Visit 03/23/2021 3:45p Main Office Nadiya Bryan FNP E11.6 9 Type 2 diabetes mellitus with other specified complication C18.9 Malignant neoplasm of colon, unspecified 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 E78.2 Mixed hyperlipidemia I10 Essential (primary) hyperten yara I48.91 Unspecified atrial fibrillat ion D64.9 Anemia, unspecified Office Visit 01/25/2021 2:15p Main Office Nadiya Bryan FNP D64.9 Anemia, unspecified K29.61 Other gastritis with bleedin g Office Visit 12/27/2020 3:45p Main Office Anitha Gamez M.D. 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 C18.9 Malignant neoplasm of colon, unspecified I48.91 Unspecified atrial fibrillat ion Office Visit 12/02/2020 10:30a Main Office Pleskach, Nadiya, TRIMMER MACHINE D64.9 Anemia, unspecified E11.69 Type 2 diabetes mellitus wit h other specified complication E78.2 Mixed hyperlipidemia I10 Essential (primary) hyperten yara 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 C18.9 Malignant neoplasm of colon, unspecified I48.91 Unspecified atrial fibrillat ion Assessments Date Code Description Provider 03/28/2021 D64.9 Anemia, unspecified Pleskach, Mo lly, TRIMMER MACHINE 03/28/2021 K29.61 Other gastritis with bleeding Pl eskach, Nadiya, TRIMMER MACHINE 03/23/2021 E11.69 Type 2 diabetes mellitus with ot her specified complication Pleskach, Nadiya, TRIMMER MACHINE 03/23/2021 C18.9 Malignant neoplasm of colon, uns pecified Pleskach, Nadiya, TRIMMER MACHINE 03/23/2021 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 Pleskach Nadiya , TRIMMER MACHINE 03/23/2021 E78.2 Mixed hyperlipidemia Chayo Bryan, TRIMMER MACHINE 03/23/2021 I10 Essential (primary) hypertension Pleskach, Nadiya, TRIMMER MACHINE 03/23/2021 I48.91 Unspecified atrial fibrillation Pleskach, Nadiya, TRIMMER MACHINE 03/23/2021 D64.9 Anemia, unspecified Pleskach, Mo lly, TRIMMER MACHINE 01/25/2021 D64.9 Anemia, unspecified Pleskach, Mo lly, TRIMMER MACHINE 01/25/2021 K29.61 Other gastritis with bleeding Pl eskach, Nadiya, TRIMMER MACHINE 12/27/2020 E11.69 Type 2 diabetes mellitus with ot her specified complication Anitha Gamez M.D. 12/27/2020 C18.9 Malignant neoplasm of colon, uns pecified Anitha Gamez M.D. 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 12/27/2020 D64.9 Anemia, unspecified Angela Gamez M.D. 12/19/2020 E11.69 Type 2 diabetes mellitus with ot her specified complication Pleskach, Nadiya, TRIMMER MACHINE 12/19/2020 E78.2 Mixed hyperlipidemia Pleskach, M jarocho, TRIMMER MACHINE 12/19/2020 I10 Essential (primary) hypertension Pleskach, Nadiya, TRIMMER MACHINE 12/19/2020 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 Pleskach, Nadiya , TRIMMER MACHINE 12/19/2020 C18.9 Malignant neoplasm of colon, uns pecified Pleskach, Nadiya, TRIMMER MACHINE 12/19/2020 I48.91 Unspecified atrial fibrillation Pleskach, Nadiya, TRIMMER MACHINE 12/02/2020 D64.9 Anemia, unspecified Pleskach, Mo lly, TRIMMER MACHINE 12/02/2020 E11.69 Type 2 diabetes mellitus with ot her specified complication Pleskach, Nadiya, TRIMMER MACHINE 12/02/2020 E78.2 Mixed hyperlipidemia Pleskach, M jarocho, TRIMMER MACHINE 12/02/2020 I10 Essential (primary) hypertension Pleskach, Nadiya, TRIMMER MACHINE 12/02/2020 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 Pleskach, Nadiya , TRIMMER MACHINE 12/02/2020 C18.9 Malignant neoplasm of colon, uns pecified Pleskach, Nadiya, TRIMMER MACHINE 12/02/2020 I48.91 Unspecified atrial fibrillation Pleskach, Nadiya, TRIMMER MACHINE Plan of Treatment Future Appointment(s):* 06/22/2021 3:30 pm - Nadiya Bryan, TRIMMER MACHINE at Main Office 03/28/2021 - P[place] Nadiya, TRIMMER MACHINE* D64.9 Anemia, unspecified* Comments:* following with hematology, blood transfusion prn * K29.61 Other gastritis with bleeding* Comments:* scheduled for EGD 04/14 Functional Status Functional Condition Comment Date Status Complete dentures Active Independent with all ADL's Activ e Glasses Active Independent with all IADL's Acti ve Corneal Implants Active Standard cane is used to ambulate uses occassionally a round house when really stiff from arthritis flare up Active Mental Status Mental Condition Comment Date Status None Active Referrals Description No Information Available
--- OUTSIDE RECORDS SUMMARY | 2021-05-23 16:52 | CCD | Continuity of Care Document ---
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 AUTM [phone] [facility] AUTM Jeff Cramer AUTM [phone] Problems Active Problems Provider Date Type 2 [...] 236units C18.9 Nadiya Bryan FNP 06/16/2020 Z93.2 [place] Remover Wipes Misc use 3-4 wipes every 4 days and as needed when changing ostomy 2Box Z93.2 Nadiya Bryan FNP 06/16/2020 C18.9 Efren Adapt Ceraing change every 4-5 days and as needed ref #[id number] 20units Nadiya Bryan FNP 05/05/2020 Ceiba 2 Piece Ostomy Skin Barrier ref # [id number] márquez ge every 4-5 days and as needed 20units C18.9 Nadiya Bryan FNP 04/14/2020 Z93.2 Ceiba 2 Piece Drainable Ostomy Pouch ref # [id number] c hange every 4-5 days and as [...] CPT Code Status Date Vaccine Lot # [id number] Refused 04/17/2016 Pneumococcal Vaccine 26898 Refused 04/17/2016 Prevnar 13 48615 Refused 04/17/2016 Influenza Vaccination Vital Signs Date Vital Result Comment 03/28/2021 11:51am BP Systolic 113 mmHg BP Diastolic 83 mmHg Heart Rate 127 /min Body Temperature 98.0 F Respiratory Rate 18 /min Height 61.5 inches 5'1.50" Weight 114.38 lb O2 % BldC Oximetry 100 % [place] Body Weight 105 lb BMI (Body Mass Index) 21.3 kg/m2 03/23/2021 3:47pm BP Systolic 110 mmHg BP Diastolic 62 mmHg Heart Rate 64 /min Body Temperature 98.7 F Respiratory Rate 16 /min Height 61.5 inches 5'1.50" Weight 116.38 lb O2 % BldC Oximetry 99 % [place] Body Weight 105 lb BMI (Body Mass Index) 21.6 kg/m2 Results Test Acquired Date Facility Test Result H/L Range Note Type & Screen -Incl Blood Type,Tye,AB SC 05/17/2021 [facility] [place], [place] [id number] [phone] Blood Type O POSITIVE Normal AB Screen (Indirect Farooq)Vis NEGATIVE Normal CBC With Differential 05/17/2021 [place] [address] [phone] White Blood Count 4.6 10 Normal 4.0-10.0 [...] 36.0-66.0 Lymph % 5.7 % Low 24.0-44.0 [place] % 11.3 % High 2.0-8.0 Eos % 1.7 % Normal 0.0-3.0 Baso % 0.4 % Normal 0.0-1.0 Immature Granulocyte % 0.4 % Normal 0-3.0 Nucleated Red Blood Cell % 0.0 % Normal 0-0 Neutrophils # 3.7 10 Normal 1.5-8.5 Lymph # 0.3 10 Low 1.5-5.0 [place] # 0.5 10 Normal 0.0-0.8 Eos # 0.1 10 Normal 0.0-0.5 Baso # 0.0 10 Normal 0.0-0.2 Laboratory test finding 05/17/2021 [place] [address] [phone] Packed Cells TRANSFUSED PRODU <SEE NOTE> 1 CBC With Differential 05/10/2021 [place] [address] [phone] White Blood Count 5.2 10 Normal 4.0-10.0 [...] 36.0-66.0 Lymph % 4.8 % Low 24.0-44.0 [place] % 8.7 % High 2.0-8.0 Eos % 1.2 % Normal 0.0-3.0 Baso % 0.4 % Normal 0.0-1.0 Immature Granulocyte % 0.6 % Normal 0-3.0 Nucleated Red Blood Cell % 0.0 % Normal 0-0 Neutrophils # 4.4 10 Normal 1.5-8.5 Lymph # 0.3 10 Low 1.5-5.0 [place] # 0.5 10 Normal 0.0-0.8 Eos # 0.1 10 Normal 0.0-0.5 Baso # 0.0 10 Normal 0.0-0.2 CBC With Differential 05/08/2021 [place] [address] [phone] White Blood Count 4.8 10 Normal 4.0-10.0 [...] 36.0-66.0 Lymph % 5.2 % Low 24.0-44.0 [place] % 11.2 % High 2.0-8.0 Eos % 1.4 % Normal 0.0-3.0 Baso % 0.4 % Normal 0.0-1.0 Immature Granulocyte % 0.4 % Normal 0-3.0 Nucleated Red Blood Cell % 0.0 % Normal 0-0 Neutrophils # 3.9 10 Normal 1.5-8.5 Lymph # 0.3 10 Low 1.5-5.0 [place] # 0.5 10 Normal 0.0-0.8 Eos # 0.1 10 Normal 0.0-0.5 Baso # 0.0 10 Normal 0.0-0.2 Type & Screen -Incl Blood Type,Tye,AB SC 05/08/2021 [place] [address] [phone] Blood Type O POSITIVE Normal AB Screen (Indirect Farooq)Vis NEGATIVE Normal Laboratory test finding 05/08/2021 [place] [address] [phone] Packed Cells TRANSFUSED PRODU <SEE NOTE> 2 Occult Blood 05/08/2021 [place] [address] [phone] Occult Blood OCCULT BLOOD 1 <SEE NOTE> Abnormal 3 Factor VIII Panel 05/05/2021 [place] [address] [phone] F8 Activity For F8 Panel 214 % High 56-140 4 F8 Antigen For F8 Panel 115 % Normal 50-200 5 F8 Activity vWB For F8 Panel 71 % Normal 50-200 Interpretation: Note Normal . 6 Laboratory test finding 05/05/2021 [place] [address] [phone] Packed Cells TRANSFUSED PRODU <SEE NOTE> 7 Type & Screen -Incl Blood Type,Tye,AB SC 05/05/2021 [place] [address] [phone] Blood Type O POSITIVE Normal AB Screen (Indirect Farooq)Vis NEGATIVE Normal CBC With Differential 05/05/2021 [place] [address] [phone] White Blood Count 5.1 10 Normal 4.0-10.0 [...] 36.0-66.0 Lymph % 6.3 % Low 24.0-44.0 [place] % 11.5 % High 2.0-8.0 Eos % 0.8 % Normal 0.0-3.0 Baso % 0.4 % Normal 0.0-1.0 Immature Granulocyte % 0.6 % Normal 0-3.0 Nucleated Red Blood Cell % 0.0 % Normal 0-0 Neutrophils # 4.1 10 Normal 1.5-8.5 Lymph # 0.3 10 Low 1.5-5.0 [place] # 0.6 10 Normal 0.0-0.8 Eos # 0.0 10 Normal 0.0-0.5 Baso # 0.0 10 Normal 0.0-0.2 Laboratory test finding 05/05/2021 [place] [address] [phone] LDH Lactate Dehydrogenase 128 U/L Normal 84-246 Haptoglobin 214 mg/dL Normal 41-333 8 Platelet Function Analysis 05/05/2021 Patient Servi ce [place] [id number] [phone] Collagen Epinephrine TNP seconds Normal 74-162 9 Laboratory test finding 05/05/2021 [place] [address] [phone] Partial Thromboplastin Time 24.9 seconds Low 25 .9-37.0 Prothrombin Time/Inr 05/05/2021 [place] [address] [phone] Prothrombin Time 14.0 seconds Normal 12.7-14.5 Inr 1.04 Normal 10 Retic (Reticulocyte Count) 05/05/2021 [place] [address] [phone] Reticulocyte % 5.9 % High 0.5-1.5 Reticulocyte # 119.8 10 High 17-77 Retic Hemoglobin Equivalent 30.7 pg Normal 24-36 CBC With Differential 04/27/2021 [place] [address] [phone] White Blood Count 4.2 10 Normal 4.0-10.0 [...] 36.0-66.0 Lymph % 8.1 % Low 24.0-44.0 [place] % 12.8 % High 2.0-8.0 Eos % 1.0 % Normal 0.0-3.0 Baso % 0.2 % Normal 0.0-1.0 Immature Granulocyte % 0.5 % Normal 0-3.0 Nucleated Red Blood Cell % 0.0 % Normal 0-0 Neutrophils # 3.3 10 Normal 1.5-8.5 Lymph # 0.3 10 Low 1.5-5.0 [place] # 0.5 10 Normal 0.0-0.8 Eos # 0.0 10 Normal 0.0-0.5 Baso # 0.0 10 Normal 0.0-0.2 CBC With Differential 04/20/2021 [place] [address] [phone] White Blood Count 3.9 10 Low 4.0-10.0 [...] 36.0-66.0 Lymph % 8.8 % Low 24.0-44.0 [place] % 11.9 % High 2.0-8.0 Eos % 1.0 % Normal 0.0-3.0 Baso % 0.5 % Normal 0.0-1.0 Immature Granulocyte % 0.8 % Normal 0-3.0 Nucleated Red Blood Cell % 0.0 % Normal 0-0 Neutrophils # 3.0 10 Normal 1.5-8.5 Lymph # 0.3 10 Low 1.5-5.0 [place] # 0.5 10 Normal 0.0-0.8 Eos # 0.0 10 Normal 0.0-0.5 Baso # 0.0 10 Normal 0.0-0.2 CBC With Differential 04/12/2021 [place] [address] [phone] White Blood Count 4.6 10 Normal 4.0-10.0 [...] 36.0-66.0 Lymph % 6.6 % Low 24.0-44.0 [place] % 9.4 % High 2.0-8.0 Eos % 0.9 % Normal 0.0-3.0 Baso % 0.2 % Normal 0.0-1.0 Immature Granulocyte % 0.4 % Normal 0-3.0 Nucleated Red Blood Cell % 0.0 % Normal 0-0 Neutrophils # 3.8 10 Normal 1.5-8.5 Lymph # 0.3 10 Low 1.5-5.0 [place] # 0.4 10 Normal 0.0-0.8 Eos # 0.0 10 Normal 0.0-0.5 Baso # 0.0 10 Normal 0.0-0.2 Coronavirus 2019 Nasopharygeal 04/10/2021 [place] [address] [phone] Coronavirus 2019 Nasopharygeal ASSAY INFORMATIO <SEE N OTE> 11 Total Iron Binding Capacit 04/07/2021 [place] [address] [phone] Iron (Fe) 48 g/dL Low 50-170 Total Iron Binding Capacity 353 g/dL Normal 250-450 Percent Saturation 13.6 % Normal 13.2-45.0 Type & Screen -Incl Blood Type,Tye,AB SC 04/07/2021 [facility] [place], [place] [id number] [phone] Blood Type O POSITIVE Normal AB Screen (Indirect Farooq)Vis NEGATIVE Normal Laboratory test finding 04/07/2021 [place] [address] [phone] Packed Cells TRANSFUSED PRODU <SEE NOTE> 12 Laboratory test finding 04/07/2021 [place] [address] [phone] Carcinoembryonic Antigen < 0.5 NG/ML Normal <2.5 13 Ferritin 66 NG/ML Normal 8-252 Comprehensive Metabolic Profil 04/07/2021 [place] [address] [phone] Glucose, Fasting 184 mg/dL High 70-100 Blood [...] With Differential 04/07/2021 [place] [address] [phone] White Blood Count 3.4 10 Low 4.0-10.0 [...] 36.0-66.0 Lymph % 8.5 % Low 24.0-44.0 [place] % 10.9 % High 2.0-8.0 Eos % 0.9 % Normal 0.0-3.0 Baso % 0.6 % Normal 0.0-1.0 Immature Granulocyte % 0.6 % Normal 0-3.0 Nucleated Red Blood Cell % 0.0 % Normal 0-0 Neutrophils # 2.7 10 Normal 1.5-8.5 Lymph # 0.3 10 Low 1.5-5.0 [place] # 0.4 10 Normal 0.0-0.8 Eos # 0.0 10 Normal 0.0-0.5 Baso # 0.0 10 Normal 0.0-0.2 Comprehensive Metabolic Profil 03/24/20[place] [address] [phone] Glucose, Fasting 96 mg/dL Normal 70-100 Blood [...] A/B RSV Covid Amp 03/24/2021 [place] [address] [phone] Influenza A Amplification NEGATIVE Normal Negati ve 16 Influenza B Amplification NEGATIVE Normal Negative 17 RSV Amplification NEGATIVE Normal Negative 18 Sars Covid-19 Amplification NEGATIVE Normal Negative 19 Laboratory test finding 03/24/2021 [place] [address] [phone] Packed Cells TRANSFUSED PRODU <SEE NOTE> 20 CBC With Differential 03/24/2021 [place] [address] [phone] White Blood Count 4.6 10 Normal 4.0-10.0 [...] 36.0-66.0 Lymph % 6.2 % Low 24.0-44.0 [place] % 11.4 % High 2.0-8.0 Eos % 0.4 % Normal 0.0-3.0 Baso % 0.4 % Normal 0.0-1.0 Immature Granulocyte % 0.4 % Normal 0-3.0 Nucleated Red Blood Cell % 0.7 % High 0-0 Neutrophils # 3.7 10 Normal 1.5-8.5 Lymph # 0.3 10 Low 1.5-5.0 [place] # 0.5 10 Normal 0.0-0.8 Eos # 0.0 10 Normal 0.0-0.5 Baso # 0.0 10 Normal 0.0-0.2 Hemoglobin A1c 03/17/2021 [facility] [address] [place] [address] [phone] Hemoglobin A1c 4.8 % 4.8-5.6 21 Albumin/Creatinine Ratio, Random Urine 03/17/2021 [facility] [address] [place] [address] [phone] Creatinine, Urine 120.2 mg/dL Not Estab. Albumin, Urine 20.1 ug/mL Not Estab. Alb/Creat Ratio 17 mg/gcreat 0-29 22 Lipid Panel 03/17/2021 [facility] [address] [place], [place] [address]771 [phone] Cholesterol, Total 123 mg/dL 100-199 Triglycerides 141 mg/dL 0-149 HDL Cholesterol 37 mg/dL Low >39 VLDL Cholesterol Mark 25 mg/dL 5-40 LDL Chol Calc ([facility]) 61 mg/dL 0-99 Comment: TNP Metabolic Panel (14), Comprehensive 03/17/2021 [facility] [address] [place], [place] [address] [phone] Calcium 9.5 mg/dL 8.7-10.3 Glucose 81 mg/dL [...] CBC With Differential 03/14/2021 [facility] [place] [address] [phone] White Blood Count 4.0 10 Normal 4.0-10.0 [...] 36.0-66.0 Lymph % 6.8 % Low 24.0-44.0 [place] % 9.3 % High 2.0-8.0 Eos % 1.0 % Normal 0.0-3.0 Baso % 0.8 % Normal 0.0-1.0 Immature Granulocyte % 0.3 % Normal 0-3.0 Nucleated Red Blood Cell % 0.0 % Normal 0-0 Neutrophils # 3.3 10 Normal 1.5-8.5 Lymph # 0.3 10 Low 1.5-5.0 [place] # 0.4 10 Normal 0.0-0.8 Eos # 0.0 10 Normal 0.0-0.5 Baso # 0.0 10 Normal 0.0-0.2 Type & Screen -Incl Blood Type,Tye,AB SC 03/14/2021 [place] [address] [phone] Blood Type O POSITIVE Normal AB Screen (Indirect Farooq)Vis NEGATIVE Normal Laboratory test finding 03/14/2021 [place] [address] [phone] Packed Cells TRANSFUSED PRODU <SEE NOTE> 25 CBC With Differential 03/10/2021 [place] [address] [phone] White Blood Count 3.4 10 Low 4.0-10.0 [...] 36.0-66.0 Lymph % 7.6 % Low 24.0-44.0 [place] % 12.9 % High 2.0-8.0 Eos % 1.2 % Normal 0.0-3.0 Baso % 0.6 % Normal 0.0-1.0 Immature Granulocyte % 0.3 % Normal 0-3.0 Nucleated Red Blood Cell % 0.0 % Normal 0-0 Neutrophils # 2.6 10 Normal 1.5-8.5 Lymph # 0.3 10 Low 1.5-5.0 [place] # 0.4 10 Normal 0.0-0.8 Eos # 0.0 10 Normal 0.0-0.5 Baso # 0.0 10 Normal 0.0-0.2 Comprehensive Metabolic Profil 03/10/20[address] [place] [address] [phone] Glucose, Fasting 166 mg/dL High 70-100 Blood [...] 1.2-2.2 Total Iron Binding Capacit 03/10/2021 [place] [address] [phone] Iron (Fe) 72 g/dL Normal 50-170 Total Iron Binding Capacity 352 g/dL Normal 250-450 Percent Saturation 20.5 % Normal 13.2-45.0 Laboratory test finding 03/10/2021 [place] [address] [phone] Carcinoembryonic Antigen < 0.5 NG/ML Normal <2.5 27 Ferritin 492 NG/ML High 8-252 Laboratory test finding 02/28/2021 [place] [address] [phone] Packed Cells TRANSFUSED PRODU <SEE NOTE> 28 Type & Screen -Incl Blood Type,Tye,AB SC 02/28/2021 [place] [address] [phone] Blood Type O POSITIVE Normal AB Screen (Indirect [place]oo[place])Vis NEGATIVE Normal Laboratory test finding 02/27/2021 Patient Service [place] 8236872 [phone] Blood Urea Nitrogen 26 mg/dL High 7-18 Creatinine With GFR 02/27/2021 [place] [address] [phone] Creatinine For GFR 0.76 mg/dL Normal 0.55-1.30 Glomerular Filtration Rate > 60.0 Normal >32 2 9 Total Iron Binding Capacit 02/27/2021 [place] [address] [phone] Iron (Fe) 79 g/dL Normal 50-170 Total Iron Binding Capacity 384 g/dL Normal 250-450 Percent Saturation 20.6 % Normal 13.2-45.0 Laboratory test finding 02/27/2021 Patient Service [place] 8236808 [phone] Ferritin 1039 NG/ML High 8-252 CBC With Differential 02/27/2021 [place] [address] [phone] White Blood Count 6.0 10 Normal 4.0-10.0 [...] 36.0-66.0 Lymph % 4.7 % Low 24.0-44.0 [place] % 11.6 % High 2.0-8.0 Eos % 0.5 % Normal 0.0-3.0 Baso % 0.3 % Normal 0.0-1.0 Immature Granulocyte % 0.8 % Normal 0-3.0 Nucleated Red Blood Cell % 0.3 % High 0-0 Neutrophils # 4.9 10 Normal 1.5-8.5 Lymph # 0.3 10 Low 1.5-5.0 [place] # 0.7 10 Normal 0.0-0.8 Eos # 0.0 10 Normal 0.0-0.5 Baso # 0.0 10 Normal 0.0-0.2 Laboratory test finding 02/10/2021 [place] [address] [phone] Packed Cells TRANSFUSED PRODU <SEE NOTE> 30 Type & Screen -Incl Blood Type,Tye,AB SC 02/10/2021 [place] [address] [phone] Blood Type O POSITIVE Normal AB Screen (Indirect Farooq)Vis NEGATIVE Normal CBC With Differential 02/09/2021 [place] [address] [phone] White Blood Count 3.9 10 Low 4.0-10.0 [...] 36.0-66.0 Lymph % 7.2 % Low 24.0-44.0 [place] % 10.0 % High 2.0-8.0 Eos % 1.0 % Normal 0.0-3.0 Baso % 0.5 % Normal 0.0-1.0 Immature Granulocyte % 0.5 % Normal 0-3.0 Nucleated Red Blood Cell % 0.0 % Normal 0-0 Neutrophils # 3.1 10 Normal 1.5-8.5 Lymph # 0.3 10 Low 1.5-5.0 [place] # 0.4 10 Normal 0.0-0.8 Eos # 0.0 10 Normal 0.0-0.5 Baso # 0.0 10 Normal 0.0-0.2 Total Iron Binding Capacit 01/27/2021 [place] [address] [phone] Iron (Fe) 59 g/dL Normal 50-170 Total Iron Binding Capacity 397 g/dL Normal 250-450 Percent Saturation 14.9 % Normal 13.2-45.0 Laboratory test finding 01/27/2021 [place] [address] [phone] Ferritin 39 NG/ML Normal 8-252 Carcinoembryonic Antigen 0.5 NG/ML Normal <2.5 31 Comprehensive Metabolic Profil 01/27/2021 [facility] [place] [address] [phone] Glucose, Fasting 59 mg/dL Low 70-100 Blood [...] 1.2-2.2 CBC With Differential 01/27/2021 [place] [address] [phone] White Blood Count 4.2 10 Normal 4.0-10.0 [...] 36.0-66.0 Lymph % 13.6 % Low 24.0-44.0 [place] % 14.6 % High 2.0-8.0 Eos % 1.4 % Normal 0.0-3.0 Baso % 0.5 % Normal 0.0-1.0 Immature Granulocyte % 0.5 % Normal 0-3.0 Nucleated Red Blood Cell % 0.0 % Normal 0-0 Neutrophils # 2.9 10 Normal 1.5-8.5 Lymph # 0.6 10 Low 1.5-5.0 [place] # 0.6 10 Normal 0.0-0.8 Eos # 0.1 10 Normal 0.0-0.5 Baso # 0.0 10 Normal 0.0-0.2 Complete Blood Count 01/20/2021 [place] [address] [phone] White Blood Count 3.3 10 Low 4.0-10.0 [...] 0-0 Laboratory test finding 01/20/2021 [place] [address] [phone] Blood Urea Nitrogen 21 mg/dL High 7-18 Creatinine With GFR 01/20/2021 [place] [address] [phone] Creatinine For GFR 0.69 mg/dL Normal 0.55-1.30 Glomerular Filtration Rate > 60.0 Normal >32 3 3 Type & Screen -Incl Blood Type,Tye,AB SC 01/20/2021 [place] [address] [phone] Blood Type O POSITIVE Normal AB Screen (Indirect Farooq)Vis NEGATIVE Normal Coronavirus 2019 Nasopharygeal 01/16/2021 [place] [address] [phone] Coronavirus 2019 Nasopharygeal ASSAY INFORMATIO <SEE N OTE> 34 Type & Screen -Incl Blood Type,Tye,AB SC 01/03/2021 [place] [address] [phone] Blood Type O POSITIVE Normal AB Screen (Indirect Farooq)Vis NEGATIVE Normal Laboratory test finding 01/03/2021 [place] [address] [phone] Packed Cells TRANSFUSED PRODU <SEE NOTE> 35 CBC With Differential 01/02/2021 [place] [address] [phone] White Blood Count 4.3 10 Normal 4.0-10.0 [...] 36.0-66.0 Lymph % 10.7 % Low 24.0-44.0 [place] % 13.1 % High 2.0-8.0 Eos % 0.7 % Normal 0.0-3.0 Baso % 0.5 % Normal 0.0-1.0 Immature Granulocyte % 0.5 % Normal 0-3.0 Nucleated Red Blood Cell % 0.0 % Normal 0-0 Neutrophils # 3.2 10 Normal 1.5-8.5 Lymph # 0.5 10 Low 1.5-5.0 [place] # 0.6 10 Normal 0.0-0.8 Eos # 0.0 10 Normal 0.0-0.5 Baso # 0.0 10 Normal 0.0-0.2 Laboratory test finding 01/02/2021 [facility] [place], [place] [address]8467 [phone] Thyroid Stimulating Hormone 1.660 uIU/ML Normal 0. 358-3.740 Free T4 0.87 ng/dL Normal 0.76-1.46 Ferritin 58 NG/ML Normal 8-252 Comprehensive Metabolic Profil 01/02/2021 Patient [place], [place] 3014[address] [phone] Glucose, Fasting 155 mg/dL High 70-100 Blood [...] Binding Capacit 01/02/2021 [place] [address] [phone] Iron (Fe) 55 g/dL Normal 50-170 Total Iron Binding Capacity 398 g/dL Normal 250-450 Percent Saturation 13.8 % Normal 13.2-45.0 Laboratory test finding 12/23/2020 [place] [address] [phone] iSTAT Troponin 0.01 NG/ML Normal 0.00-0.08 Istat Chem8+ Panel 12/23/2020 [place] [address] [phone] iSTAT HCT 33.0 % Low 38.0-51.0 iSTAT Glucose 94 mg/dL Normal 70-105 iSTAT Sodium 138 mEq/L Normal 136-145 iSTAT Potassium 4.2 mEq/L Normal 3.5-5.1 iSTAT CA++ 5.0 mg/dL Normal 4.5-5.3 iSTAT Chloride 102 mEq/L Normal 98-109 iSTAT Co2 27.0 MM/L Normal 23.0-27.0 iSTAT BUN 20 mg/dL Normal 8-26 iSTAT Creatinine 0.7 mg/dL Normal 0.6-1.3 CBC With Differential 12/23/2020 [place] [address] [phone] White Blood Count 4.5 10 Normal 4.0-10.0 [...] 36.0-66.0 Lymph % 9.7 % Low 24.0-44.0 [place] % 11.9 % High 2.0-8.0 Eos % 0.9 % Normal 0.0-3.0 Baso % 0.4 % Normal 0.0-1.0 Immature Granulocyte % 0.4 % Normal 0-3.0 Nucleated Red Blood Cell % 0.0 % Normal 0-0 Neutrophils # 3.5 10 Normal 1.5-8.5 Lymph # 0.4 10 Low 1.5-5.0 [place] # 0.5 10 Normal 0.0-0.8 Eos # 0.0 10 Normal 0.0-0.5 Baso # 0.0 10 Normal 0.0-0.2 PT & Aptt 12/23/2020 [place] [address] [phone] Prothrombin Time 13.3 seconds Normal 12.5-14.3 Inr 0.99 Normal 37 Partial Thromboplastin Time 29.5 seconds Normal 24.2-38.5 Liver Profile 12/23/2020 [place] [address] [phone] Ast/Sgot 13 U/L Normal 7-37 Alt/SGPT 14 U/L Normal 12-78 Alkaline Phosphatase 95 U/L Normal 45-117 Bilirubin,Total 0.9 mg/dL Normal 0.2-1.0 Bilirubin,Direct 0.3 mg/dL High 0.0-0.2 Total Protein 6.5 GM/DL Normal 6.4-8.2 Albumin 3.4 GM/DL Normal 3.2-5.2 Albumin/Globulin Ratio 1.1 Low 1.2-2.2 Laboratory test finding 12/23/2020 [place] [address] [phone] Lipase 73 U/L Normal 73-393 Lactic Acid Sepsis Protocol 0.8 mmol/L Normal 0.4-2.0 38 CBC With Differential 12/19/2020 [place] [address] [phone] White Blood Count 3.8 10 Low 4.0-10.0 [...] 36.0-66.0 Lymph % 11.7 % Low 24.0-44.0 [place] % 11.9 % High 2.0-8.0 Eos % 1.1 % Normal 0.0-3.0 Baso % 0.3 % Normal 0.0-1.0 Immature Granulocyte % 0.5 % Normal 0-3.0 Nucleated Red Blood Cell % 0.0 % Normal 0-0 Neutrophils # 2.8 10 Normal 1.5-8.5 Lymph # 0.4 10 Low 1.5-5.0 [place] # 0.5 10 Normal 0.0-0.8 Eos # 0.0 10 Normal 0.0-0.5 Baso # 0.0 10 Normal 0.0-0.2 CBC With Differential 12/05/2020 Patient Service [place], [place] [address] [phone] White Blood Count 3.4 10 Low 4.0-10.0 [...] 36.0-66.0 Lymph % 12.8 % Low 24.0-44.0 [place] % 13.7 % High 2.0-8.0 Eos % 1.2 % Normal 0.0-3.0 Baso % 0.6 % Normal 0.0-1.0 Immature Granulocyte % 0.3 % Normal 0-3.0 Nucleated Red Blood Cell % 0.0 % Normal 0-0 Neutrophils # 2.4 10 Normal 1.5-8.5 Lymph # 0.4 10 Low 1.5-5.0 [place] # 0.5 10 Normal 0.0-0.8 Eos # 0.0 10 Normal 0.0-0.5 Baso # 0.0 10 Normal 0.0-0.2 Laboratory test finding 12/05/2020 [place] [address] [phone] Ferritin 108 NG/ML Normal 8-252 Total Iron Binding Capacit 12/05/2020 [place] [address] [phone] Iron (Fe) 94 g/dL Normal 50-170 Total Iron Binding Capacity 350 g/dL Normal 250-450 Percent Saturation 26.9 % Normal 13.2-45.0 PT & Aptt 12/05/2020 [place] [address] [phone] Prothrombin Time 13.3 seconds Normal 12.5-14.3 Inr 0.99 Normal 39 Partial Thromboplastin Time 29.4 seconds Normal 24.2-38.5 PT & Aptt 11/25/2020 [place] [address] [phone] Prothrombin Time 16.4 seconds High 12.5-14.3 Inr 1.29 Normal 40 Partial Thromboplastin Time 33.4 seconds Normal 24.2-38.5 Complete Blood Count 11/25/2020 [place] [address] [phone] White Blood Count 4.4 10 Normal 4.0-10.0 [...] 0-0 Comprehensive Metabolic Profil 11/25/[address] [place] [address] [phone] Glucose, Fasting 110 mg/dL High 70-100 Blood [...] 1.2-2.2 Cardiac Marker Panel 11/25/2020 [place] [address] [phone] CPK Creatine Phosphokinase 60 U/L Normal 26-19 2 CK-MB Value Mass 1.3 NG/ML Normal <3.6 MB/CK Relative Index 2.17 Normal < Or =4 42 Troponin I < 0.02 NG/ML Normal < 0.10 43 Laboratory test finding 11/25/2020 [place] [address] [phone] NT-Pro BNP 1795 pg/mL High <450 Type & Screen -Incl Blood Type,Tye,AB SC 11/25/2020 [place] [address] [phone] Blood Type O POSITIVE Normal AB Screen [...] developed and its performance characteristics determined by [employer]. It has not been cleared or approved [...] cofactor activity; FVIII - factor VIII activity. CHEMICAL COMPOUNDER HELPER: For questions regarding panel interpretation, please contact Mikal Wasserman M.D. at [facility] at . DISCLAIMER These assessments and [...] (1) The National Heart, Lung and Blood [place]. The Diagnosis, Evaluation and Management of von Willebrand Disease. [place], [place]: National Institutes of Health Publication 08-5832. 2007. Available at http://www.nhlbi.nih.gov/guidelines/vwd/. (2) Tayo MONTES et al. Am J Hematol. 2009; 84(6):366-370. (3) Pam M et al. Haemophilia. 2004;10(3):199-217. (4) Lety WOODRUFF et al. Haemophilia. 2004; 10(3):218-231. 7 TRANSFUSED PRODUCT: PACKED C ELLS COUNT: 2 8 Performed at: [facility] [id number] Board Finisher: Matt Mcdonnell MD, Phone: [phone] Performed at: [employer] [address] [place] [address] [address], [place], [place] [id number] Board Finisher: Gary Youngblood MD, Phone: [phone] Performed at: [address] [id number] Board Finisher: Teresa Nguyen MD, Phone: [phone] UNABLE TO PERFORM TEST DUE T [...] passenger travel. Testing and International Air Travel, cdc.gov/coronavirus/2019-ncov/travelers/kmzclpy-ltn-ctflts.html 09/01/2020 NOTE: The COVID-19 assay is under Emergency Use Authorization (EUA) by the U.S. Food and Drug Administration. [email or web address] and [facility] are designated as high complexity laboratories by the Clinical Laboratory Improvement Amendments of 1988 (CLIA) and are qualified to perform this test. Not Detected 12 TRANSFUSED PRODUCT: PACKED C ELLS COUNT: 3 13 THE CEA ASSAY IS PERFORMED O N THE [employer] BY CHEMILUMINESCENCE AND SHOULD NOT BE COMPARED [...] Little GFR Left ESRD GFR <15 on BRINE TANK OPERATOR 15 Units are mL/min/1.73 m2 Chronic Kidney Disease Staging per NKF: Stage I & II GFR >=60 Normal to Mildly Decreased Stage III GFR 30-59 Moderately Decreased Stage IV GFR 15-29 Severely Decreased Stage V GFR <15 Very Little GFR Left ESRD GFR <15 on BRINE TANK OPERATOR 16 Negative results do not prec [...] pathogens. DISCLAIMER: Testing was performed using the [employer] SARS-CoV-2 test. This test was developed and its performance characteristics determined by [employer]. This test has not been FDA cleared [...] Little GFR Left ESRD GFR <15 on BRINE TANK OPERATOR 27 THE CEA ASSAY IS PERFORMED O N THE [employer] BY CHEMILUMINESCENCE AND SHOULD NOT BE COMPARED [...] Little GFR Left ESRD GFR <15 on BRINE TANK OPERATOR 30 TRANSFUSED PRODUCT: PACKED C ELLS [...] Little GFR Left ESRD GFR <15 on BRINE TANK OPERATOR 33 Units are mL/min/1.73 m2 Chronic Kidney Disease Staging per NKF: Stage I & II GFR >=60 Normal to Mildly Decreased Stage III GFR 30-59 Moderately Decreased Stage IV GFR 15-29 Severely Decreased Stage V GFR <15 Very Little GFR Left ESRD GFR <15 on BRINE TANK OPERATOR 34 ASSAY INFORMATION: Real Time RT-PCR NOTE: The COVID-19 assay has been cleared by the U.S. Food and Drug Administration under the Emergency Use Authorization (EUA). 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 0.10-1.50 ng/ml Increased Risk for Adv erse Clinical Events. Evaluation of additional criterion and/or repeat testing in 2-6 hours is suggested to rule out myocardial damage. >= 1.50 ng/ml Indicative of Myocardial Injury. Procedures Date Code Description Status 03/28/2021 [id number] [place] W/I 7 Days Of DC, Comm W/I 2 Dys Completed 03/23/2021 [id number] Office/Outpatient Established Mo d MDM 30-39 Min Completed 03/23/2021 [id number] Diabetic Foot Exam Completed 01/25/2021 [id number] [place] W/I 7 Days Of DC, Comm W/I 2 Dys Completed 12/27/2020 [id number] Office/Outpatient Established Mo d MDM 30-39 Min Completed 12/19/2020 [id number] Office/Outpatient Established Mo d MDM 30-39 Min Completed 12/02/2020 [id number] [place] Cre W/I 7 Days Of DC, [...] Office Visit 12/19/2020 2:15p Main Office Pleskach, Andiya, MILK TANKER DRIVER E11.6 9 Type 2 diabetes mellitus with other specified complication E78.2 Mixed hyperlipidemia I10 Essential (primary) hyperten yara 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 C18.9 Malignant neoplasm of colon, unspecified I48.91 Unspecified atrial fibrillat ion Office Visit 12/02/2020 10:30a Main Office Pleskach, Nadiya, MILK TANKER DRIVER D64.9 Anemia, unspecified E11.69 Type 2 diabetes mellitus wit h other specified complication E78.2 Mixed hyperlipidemia I10 Essential (primary) hyperten yara 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 C18.9 Malignant neoplasm of colon, unspecified I48.91 Unspecified atrial fibrillat ion Assessments Date Code Description Provider 03/28/2021 D64.9 Anemia, unspecified Pleskach, Mo lly, MIL[employer] TANKER DRIVER 03/28/2021 K29.61 Other gastritis with bleeding Pl eskach, Nadiya, MILK TANKER DRIVER 03/23/2021 E11.69 Type 2 diabetes mellitus with ot her specified complication Pleskach, Nadiya, MILK TANKER DRIVER 03/23/2021 C18.9 Malignant neoplasm of colon, uns pecified Pleskach, Nadiya, MILK TANKER DRIVER 03/23/2021 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 Pleskach Nadiya , MILK TANKER DRIVER 03/23/2021 E78.2 Mixed hyperlipidemia Chayo Bryan, MILK TANKER DRIVER 03/23/2021 I10 Essential (primary) hypertension Pleskach, Nadiya, MILK TANKER DRIVER 03/23/2021 I48.91 Unspecified atrial fibrillation Pleskach, Nadiya, MILK TANKER DRIVER 03/23/2021 D64.9 Anemia, unspecified Pleskach, Mo lly, MILK TANKER DRIVER 01/25/2021 D64.9 Anemia, unspecified Pleskach, Mo lly, MILK TANKER DRIVER 01/25/2021 K29.[address] with bleeding Pl eskach, Nadiya, MILK TANKER DRIVER 12/27/2020 E11.69 Type 2 diabetes mellitus with ot her specified complication Anitha Gamez M.D. 12/27/2020 C18.9 Malignant neoplasm of colon, uns pecified Anitha Gamez M.D. 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 12/27/2020 D64.9 Anemia, unspecified Angela Gamez M.D. 12/19/2020 E11.69 Type 2 diabetes mellitus with ot her specified complication Pleskach, Nadiya, MILK TANKER DRIVER 12/19/2020 E78.2 Mixed hyperlipidemia Pleskach, M jarocho, MILK TANKER DRIVER 12/19/2020 I10 Essential (primary) hypertension Pleskach, Nadiya, MILK TANKER DRIVER 12/19/2020 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 Pleskach, Nadiya , MIL[employer] TANKER DRIVER 12/19/2020 C18.9 Malignant neoplasm of colon, uns pecified Pleskach, Nadiya, MILK TANKER DRIVER 12/19/2020 I48.91 Unspecified atrial fibrillation Pleskach, Nadiya, MILK TANKER DRIVER 12/02/2020 D64.9 Anemia, unspecified Pleskach, Mo lly, MILK TANKER DRIVER 12/02/2020 E11.69 Type 2 diabetes mellitus with ot her specified complication Pleskach, Nadiya, MILK TANKER DRIVER 12/02/2020 E78.2 Mixed hyperlipidemia Pleskach, M jarocho, MILK TANKER DRIVER 12/02/2020 I10 Essential (primary) hypertension Pleskach, Nadiya, MILK TANKER DRIVER 12/02/2020 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 Pleskach, Nadiya , MIL[employer] T[employer]ER DRIVER 12/02/2020 C18.9 Malignant neoplasm of colon, uns pecified Pleskach, Nadiya, MIL[employer] TANKER DRIVER 12/02/2020 I48.91 Unspecified atrial fibrillation Pleskach, Nadiya, MILK TANKER DRIVER Plan of Treatment Future Appointment(s):* 06/22/2021 3:30 pm - Nadiya Bryan, MILK TANKER DRIVER at Main Office 03/28/2021 - Pleskach Nadiya, MILK TANKER DRIVER* D64.9 Anemia, unspecified* Comments:* following with hematology, [...]
--- OUTSIDE RECORDS SUMMARY | 2021-05-23 16:52 | CCD | Continuity of Care Document ---
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 AUTM [phone] [facility] AUTM Jeff Cramer AUTM [phone] Problems Active Problems Provider Date Type 2 [...] 236units C18.9 Nadiya Bryan FNP 06/16/2020 Z93.2 [place] Remover Wipes Misc use 3-4 wipes every 4 days and as needed when changing ostomy 2Box Z93.2 Nadiya Bryan FNP 06/16/2020 C18.9 Efren Adapt Ceraing change every 4-5 days and as needed ref #[id number] 20units Nadiya Bryan FNP 05/05/2020 [place] 2 Piece Ostomy Skin Barrier ref # [id number] márquez ge every 4-5 days and as needed 20units C18.9 Nadiya Bryan FNP 04/14/2020 Z93.2 [place] 2 Piece Drainable Ostomy Pouch ref # [id number] c hange every 4-5 days and as [...] CPT Code Status Date Vaccine Lot # [id number] Refused 04/17/2016 Pneumococcal Vaccine 48665 Refused 04/17/2016 Prevnar 13 56782 Refused 04/17/2016 Influenza Vaccination Vital Signs Date Vital Result Comment 03/28/2021 11:51am BP Systolic 113 mmHg BP Diastolic 83 mmHg Heart Rate 127 /min Body Temperature 98.0 F Respiratory Rate 18 /min Height 61.5 inches 5'1.50" Weight 114.38 lb O2 % BldC Oximetry 100 % [place] Body Weight 105 lb BMI (Body Mass Index) 21.3 kg/m2 03/23/2021 3:47pm BP Systolic 110 mmHg BP Diastolic 62 mmHg Heart Rate 64 /min Body Temperature 98.7 F Respiratory Rate 16 /min Height 61.5 inches 5'1.50" Weight 116.38 lb O2 % BldC Oximetry 99 % [place] Body Weight 105 lb BMI (Body Mass Index) 21.6 kg/m2 Results Test Acquired Date Facility Test Result H/L Range Note Type & Screen -Incl Blood Type,Tye,AB SC 05/17/2021 [facility] [place], [place] [id number] [phone] Blood Type O POSITIVE Normal AB Screen (Indirect Farooq)Vis NEGATIVE Normal CBC With Differential 05/17/2021 [place] [address] [phone] White Blood Count 4.6 10 Normal 4.0-10.0 [...] 36.0-66.0 Lymph % 5.7 % Low 24.0-44.0 [place] % 11.3 % High 2.0-8.0 Eos % 1.7 % Normal 0.0-3.0 Baso % 0.4 % Normal 0.0-1.0 Immature Granulocyte % 0.4 % Normal 0-3.0 Nucleated Red Blood Cell % 0.0 % Normal 0-0 Neutrophils # 3.7 10 Normal 1.5-8.5 Lymph # 0.3 10 Low 1.5-5.0 [place] # 0.5 10 Normal 0.0-0.8 Eos # 0.1 10 Normal 0.0-0.5 Baso # 0.0 10 Normal 0.0-0.2 Laboratory test finding 05/17/2021 [facility] [place] [address] [phone] Packed Cells TRANSFUSED PRODU <SEE NOTE> 1 CBC With Differential 05/10/2021 [place] [address] [phone] White Blood Count 5.2 10 Normal 4.0-10.0 [...] 36.0-66.0 Lymph % 4.8 % Low 24.0-44.0 [place] % 8.7 % High 2.0-8.0 Eos % 1.2 % Normal 0.0-3.0 Baso % 0.4 % Normal 0.0-1.0 Immature Granulocyte % 0.6 % Normal 0-3.0 Nucleated Red Blood Cell % 0.0 % Normal 0-0 Neutrophils # 4.4 10 Normal 1.5-8.5 Lymph # 0.3 10 Low 1.5-5.0 [place] # 0.5 10 Normal 0.0-0.8 Eos # 0.1 10 Normal 0.0-0.5 Baso # 0.0 10 Normal 0.0-0.2 CBC With Differential 05/08/2021 [place] [address] [phone] White Blood Count 4.8 10 Normal 4.0-10.0 [...] 36.0-66.0 Lymph % 5.2 % Low 24.0-44.0 [place] % 11.2 % High 2.0-8.0 Eos % 1.4 % Normal 0.0-3.0 Baso % 0.4 % Normal 0.0-1.0 Immature Granulocyte % 0.4 % Normal 0-3.0 Nucleated Red Blood Cell % 0.0 % Normal 0-0 Neutrophils # 3.9 10 Normal 1.5-8.5 Lymph # 0.3 10 Low 1.5-5.0 [place] # 0.5 10 Normal 0.0-0.8 Eos # 0.1 10 Normal 0.0-0.5 Baso # 0.0 10 Normal 0.0-0.2 Type & Screen -Incl Blood Type,Tye,AB SC 05/08/2021 [place] [address] [phone] Blood Type O POSITIVE Normal AB Screen (Indirect Farooq)Vis NEGATIVE Normal Laboratory test finding 05/08/2021 [place] [address] [phone] Packed Cells TRANSFUSED PRODU <SEE NOTE> 2 Occult Blood 05/08/2021 [place] [address] [phone] Occult Blood OCCULT BLOOD 1 <SEE NOTE> Abnormal 3 Factor VIII Panel 05/05/2021 [place] [address] [phone] F8 Activity For F8 Panel 214 % High 56-140 4 F8 Antigen For F8 Panel 115 % Normal 50-200 5 F8 Activity vWB For F8 Panel 71 % Normal 50-200 Interpretation: Note Normal . 6 Laboratory test finding 05/05/2021 [facility] [place] [address] [phone] Packed Cells TRANSFUSED PRODU <SEE NOTE> 7 Type & Screen -Incl Blood Type,Tye,AB SC 05/05/2021 [facility] [place] [address] [phone] Blood Type O POSITIVE Normal AB Screen (Indirect Farooq)Vis NEGATIVE Normal CBC With Differential 05/05/2021 [place] [address] [phone] White Blood Count 5.1 10 Normal 4.0-10.0 [...] 36.0-66.0 Lymph % 6.3 % Low 24.0-44.0 [place] % 11.5 % High 2.0-8.0 Eos % 0.8 % Normal 0.0-3.0 Baso % 0.4 % Normal 0.0-1.0 Immature Granulocyte % 0.6 % Normal 0-3.0 Nucleated Red Blood Cell % 0.0 % Normal 0-0 Neutrophils # 4.1 10 Normal 1.5-8.5 Lymph # 0.3 10 Low 1.5-5.0 [place] # 0.6 10 Normal 0.0-0.8 Eos # 0.0 10 Normal 0.0-0.5 Baso # 0.0 10 Normal 0.0-0.2 Laboratory test finding 05/05/2021 [place] [address] [phone] LDH Lactate Dehydrogenase 128 U/L Normal 84-246 Haptoglobin 214 mg/dL Normal 41-333 8 Platelet Function Analysis 05/05/2021 Patient Servi ce [place] [id number] [phone] Collagen Epinephrine TNP seconds Normal 74-162 9 Laboratory test finding 05/05/2021 [place] [address] [phone] Partial Thromboplastin Time 24.9 seconds Low 25 .9-37.0 Prothrombin Time/Inr 05/05/2021 [place] [address] [phone] Prothrombin Time 14.0 seconds Normal 12.7-14.5 Inr 1.04 Normal 10 Retic (Reticulocyte Count) 05/05/2021 [place] [address] [phone] Reticulocyte % 5.9 % High 0.5-1.5 Reticulocyte # 119.8 10 High 17-77 Retic Hemoglobin Equivalent 30.7 pg Normal 24-36 CBC With Differential 04/27/2021 [place] [address] [phone] White Blood Count 4.2 10 Normal 4.0-10.0 [...] 36.0-66.0 Lymph % 8.1 % Low 24.0-44.0 [place] % 12.8 % High 2.0-8.0 Eos % 1.0 % Normal 0.0-3.0 Baso % 0.2 % Normal 0.0-1.0 Immature Granulocyte % 0.5 % Normal 0-3.0 Nucleated Red Blood Cell % 0.0 % Normal 0-0 Neutrophils # 3.3 10 Normal 1.5-8.5 Lymph # 0.3 10 Low 1.5-5.0 [place] # 0.5 10 Normal 0.0-0.8 Eos # 0.0 10 Normal 0.0-0.5 Baso # 0.0 10 Normal 0.0-0.2 CBC With Differential 04/20/2021 [place] [address] [phone] White Blood Count 3.9 10 Low 4.0-10.0 [...] 36.0-66.0 Lymph % 8.8 % Low 24.0-44.0 [place] % 11.9 % High 2.0-8.0 Eos % 1.0 % Normal 0.0-3.0 Baso % 0.5 % Normal 0.0-1.0 Immature Granulocyte % 0.8 % Normal 0-3.0 Nucleated Red Blood Cell % 0.0 % Normal 0-0 Neutrophils # 3.0 10 Normal 1.5-8.5 Lymph # 0.3 10 Low 1.5-5.0 [place] # 0.5 10 Normal 0.0-0.8 Eos # 0.0 10 Normal 0.0-0.5 Baso # 0.0 10 Normal 0.0-0.2 CBC With Differential 04/12/2021 [place] [address] [phone] White Blood Count 4.6 10 Normal 4.0-10.0 [...] 36.0-66.0 Lymph % 6.6 % Low 24.0-44.0 [place] % 9.4 % High 2.0-8.0 Eos % 0.9 % Normal 0.0-3.0 Baso % 0.2 % Normal 0.0-1.0 Immature Granulocyte % 0.4 % Normal 0-3.0 Nucleated Red Blood Cell % 0.0 % Normal 0-0 Neutrophils # 3.8 10 Normal 1.5-8.5 Lymph # 0.3 10 Low 1.5-5.0 [place] # 0.4 10 Normal 0.0-0.8 Eos # 0.0 10 Normal 0.0-0.5 Baso # 0.0 10 Normal 0.0-0.2 Coronavirus 2019 Nasopharygeal 04/10/2021 [place] [address] [phone] Coronavirus 2019 Nasopharygeal ASSAY INFORMATIO <SEE N OTE> 11 Total Iron Binding Capacit 04/07/2021 [place] [address] [phone] Iron (Fe) 48 g/dL Low 50-170 Total Iron Binding Capacity 353 g/dL Normal 250-450 Percent Saturation 13.6 % Normal 13.2-45.0 Type & Screen -Incl Blood Type,Tye,AB SC 04/07/2021 [facility] [place], [place] [id number] [phone] Blood Type O POSITIVE Normal AB Screen (Indirect Farooq)Vis NEGATIVE Normal Laboratory test finding 04/07/2021 [place] [address] [phone] Packed Cells TRANSFUSED PRODU <SEE NOTE> 12 Laboratory test finding 04/07/2021 [place] [address] [phone] Carcinoembryonic Antigen < 0.5 NG/ML Normal <2.5 13 Ferritin 66 NG/ML Normal 8-252 Comprehensive Metabolic Profil 04/07/2021 [place] [address] [phone] Glucose, Fasting 184 mg/dL High 70-100 Blood [...] With Differential 04/07/2021 [place] [address] [phone] White Blood Count 3.4 10 Low 4.0-10.0 [...] 36.0-66.0 Lymph % 8.5 % Low 24.0-44.0 [place] % 10.9 % High 2.0-8.0 Eos % 0.9 % Normal 0.0-3.0 Baso % 0.6 % Normal 0.0-1.0 Immature Granulocyte % 0.6 % Normal 0-3.0 Nucleated Red Blood Cell % 0.0 % Normal 0-0 Neutrophils # 2.7 10 Normal 1.5-8.5 Lymph # 0.3 10 Low 1.5-5.0 [place] # 0.4 10 Normal 0.0-0.8 Eos # 0.0 10 Normal 0.0-0.5 Baso # 0.0 10 Normal 0.0-0.2 Comprehensive Metabolic Profil 03/24/[address] [place] [address] [phone] Glucose, Fasting 96 mg/dL Normal 70-100 Blood [...] A/B RSV Covid Amp 03/24/2021 [place] [address] [phone] Influenza A Amplification NEGATIVE Normal Negati ve 16 Influenza B Amplification NEGATIVE Normal Negative 17 RSV Amplification NEGATIVE Normal Negative 18 Sars Covid-19 Amplification NEGATIVE Normal Negative 19 Laboratory test finding 03/24/2021 [place] [address] [phone] Packed Cells TRANSFUSED PRODU <SEE NOTE> 20 CBC With Differential 03/24/2021 [place] [address] [phone] White Blood Count 4.6 10 Normal 4.0-10.0 [...] 36.0-66.0 Lymph % 6.2 % Low 24.0-44.0 [place] % 11.4 % High 2.0-8.0 Eos % 0.4 % Normal 0.0-3.0 Baso % 0.4 % Normal 0.0-1.0 Immature Granulocyte % 0.4 % Normal 0-3.0 Nucleated Red Blood Cell % 0.7 % High 0-0 Neutrophils # 3.7 10 Normal 1.5-8.5 Lymph # 0.3 10 Low 1.5-5.0 [place] # 0.5 10 Normal 0.0-0.8 Eos # 0.0 10 Normal 0.0-0.5 Baso # 0.0 10 Normal 0.0-0.2 Hemoglobin A1c 03/17/2021 [facility] [address] [place] [address] [phone] Hemoglobin A1c 4.8 % 4.8-5.6 21 Albumin/Creatinine Ratio, Random Urine 03/17/2021 [facility] [address] [place] [address] [phone] Creatinine, Urine 120.2 mg/dL Not Estab. Albumin, Urine 20.1 ug/mL Not Estab. Alb/Creat Ratio 17 mg/gcreat 0-29 22 Lipid Panel 03/17/2021 [facility] [address] [place], [place] [address] [phone] Cholesterol, Total 123 mg/dL 100-199 Triglycerides 141 mg/dL 0-149 HDL Cholesterol 37 mg/dL Low >39 VLDL Cholesterol Mark 25 mg/dL 5-40 LDL Chol Calc ([facility]) 61 mg/dL 0-99 Comment: TNP Metabolic Panel (14), Comprehensive 03/17/2021 [facility] [address] [place], [place] [id number] [phone] Calcium 9.5 mg/dL 8.7-10.3 Glucose 81 mg/dL [...] CBC With Differential 03/14/2021 [facility] [place] [address] [phone] White Blood Count 4.0 10 Normal 4.0-10.0 [...] 36.0-66.0 Lymph % 6.8 % Low 24.0-44.0 [place] % 9.3 % High 2.0-8.0 Eos % 1.0 % Normal 0.0-3.0 Baso % 0.8 % Normal 0.0-1.0 Immature Granulocyte % 0.3 % Normal 0-3.0 Nucleated Red Blood Cell % 0.0 % Normal 0-0 Neutrophils # 3.3 10 Normal 1.5-8.5 Lymph # 0.3 10 Low 1.5-5.0 [place] # 0.4 10 Normal 0.0-0.8 Eos # 0.0 10 Normal 0.0-0.5 Baso # 0.0 10 Normal 0.0-0.2 Type & Screen -Incl Blood Type,Tye,AB SC 03/14/2021 [place] [address] [phone] Blood Type O POSITIVE Normal AB Screen (Indirect [place]q)Vis NEGATIVE Normal Laboratory test finding 03/14/2021 [place] [address] [phone] Packed Cells TRANSFUSED PRODU <SEE NOTE> 25 CBC With Differential 03/10/2021 [place] [address] [phone] White Blood Count 3.4 10 Low 4.0-10.0 [...] 36.0-66.0 Lymph % 7.6 % Low 24.0-44.0 [place] % 12.9 % High 2.0-8.0 Eos % 1.2 % Normal 0.0-3.0 Baso % 0.6 % Normal 0.0-1.0 Immature Granulocyte % 0.3 % Normal 0-3.0 Nucleated Red Blood Cell % 0.0 % Normal 0-0 Neutrophils # 2.6 10 Normal 1.5-8.5 Lymph # 0.3 10 Low 1.5-5.0 [place] # 0.4 10 Normal 0.0-0.8 Eos # 0.0 10 Normal 0.0-0.5 Baso # 0.0 10 Normal 0.0-0.2 Comprehensive Metabolic Profil 03/10/[address] [place] [address] [phone] Glucose, Fasting 166 mg/dL High 70-100 Blood [...] 1.2-2.2 Total Iron Binding Capacit 03/10/2021 [place] [address] [phone] Iron (Fe) 72 g/dL Normal 50-170 Total Iron Binding Capacity 352 g/dL Normal 250-450 Percent Saturation 20.5 % Normal 13.2-45.0 Laboratory test finding 03/10/2021 [place] [address] [phone] Carcinoembryonic Antigen < 0.5 NG/ML Normal <2.5 27 Ferritin 492 NG/ML High 8-252 Laboratory test finding 02/28/2021 [place] [address] [phone] Packed Cells TRANSFUSED PRODU <SEE NOTE> 28 Type & Screen -Incl Blood Type,Tye,AB SC 02/28/2021 [place] [address] [phone] Blood Type O POSITIVE Normal AB Screen (Indirect [place])Vis NEGATIVE Normal Laboratory test finding 02/27/2021 Patient Service [place] [id number] [phone] Blood Urea Nitrogen 26 mg/dL High 7-18 Creatinine With GFR 02/27/2021 [place] [address] [phone] Creatinine For GFR 0.76 mg/dL Normal 0.55-1.30 Glomerular Filtration Rate > 60.0 Normal >32 2 9 Total Iron Binding Capacit 02/27/2021 [place] [address] [phone] Iron (Fe) 79 g/dL Normal 50-170 Total Iron Binding Capacity 384 g/dL Normal 250-450 Percent Saturation 20.6 % Normal 13.2-45.0 Laboratory test finding 02/27/2021 Patient Service [place] [address]270 [phone] Ferritin 1039 NG/ML High 8-252 CBC With Differential 02/27/2021 [place] [address] [phone] White Blood Count 6.0 10 Normal 4.0-10.0 [...] 36.0-66.0 Lymph % 4.7 % Low 24.0-44.0 [place] % 11.6 % High 2.0-8.0 Eos % 0.5 % Normal 0.0-3.0 Baso % 0.3 % Normal 0.0-1.0 Immature Granulocyte % 0.8 % Normal 0-3.0 Nucleated Red Blood Cell % 0.3 % High 0-0 Neutrophils # 4.9 10 Normal 1.5-8.5 Lymph # 0.3 10 Low 1.5-5.0 [place] # 0.7 10 Normal 0.0-0.8 Eos # 0.0 10 Normal 0.0-0.5 Baso # 0.0 10 Normal 0.0-0.2 Laboratory test finding 02/10/2021 [place] [address] [phone] Packed Cells TRANSFUSED PRODU <SEE NOTE> 30 Type & Screen -Incl Blood Type,Tye,AB SC 02/10/2021 [place] [address] [phone] Blood Type O POSITIVE Normal AB Screen (Indirect [place]ooq)Vis NEGATIVE Normal CBC With Differential 02/09/2021 [place] [address] [phone] White Blood Count 3.9 10 Low 4.0-10.0 [...] 36.0-66.0 Lymph % 7.2 % Low 24.0-44.0 [place] % 10.0 % High 2.0-8.0 Eos % 1.0 % Normal 0.0-3.0 Baso % 0.5 % Normal 0.0-1.0 Immature Granulocyte % 0.5 % Normal 0-3.0 Nucleated Red Blood Cell % 0.0 % Normal 0-0 Neutrophils # 3.1 10 Normal 1.5-8.5 Lymph # 0.3 10 Low 1.5-5.0 [place] # 0.4 10 Normal 0.0-0.8 Eos # 0.0 10 Normal 0.0-0.5 Baso # 0.0 10 Normal 0.0-0.2 Total Iron Binding Capacit 01/27/2021 [place] [address] [phone] Iron (Fe) 59 g/dL Normal 50-170 Total Iron Binding Capacity 397 g/dL Normal 250-450 Percent Saturation 14.9 % Normal 13.2-45.0 Laboratory test finding 01/27/2021 [place] [address] [phone] Ferritin 39 NG/ML Normal 8-252 Carcinoembryonic Antigen 0.5 NG/ML Normal <2.5 31 Comprehensive Metabolic Profil 01/27[facility]2021 [facility] [place] [address] [phone] Glucose, Fasting 59 mg/dL Low 70-100 Blood [...] 1.2-2.2 CBC With Differential 01/27/2021 [place] [address] [phone] White Blood Count 4.2 10 Normal 4.0-10.0 [...] 36.0-66.0 Lymph % 13.6 % Low 24.0-44.0 [place] % 14.6 % High 2.0-8.0 Eos % 1.4 % Normal 0.0-3.0 Baso % 0.5 % Normal 0.0-1.0 Immature Granulocyte % 0.5 % Normal 0-3.0 Nucleated Red Blood Cell % 0.0 % Normal 0-0 Neutrophils # 2.9 10 Normal 1.5-8.5 Lymph # 0.6 10 Low 1.5-5.0 [place] # 0.6 10 Normal 0.0-0.8 Eos # 0.1 10 Normal 0.0-0.5 Baso # 0.0 10 Normal 0.0-0.2 Complete Blood Count 01/20/2021 [place] [address] [phone] White Blood Count 3.3 10 Low 4.0-10.0 [...] 0-0 Laboratory test finding 01/20/2021 [place] [address] [phone] Blood Urea Nitrogen 21 mg/dL High 7-18 Creatinine With GFR 01/20/2021 [place] [address] [phone] Creatinine For GFR 0.69 mg/dL Normal 0.55-1.30 Glomerular Filtration Rate > 60.0 Normal >32 3 3 Type & Screen -Incl Blood Type,Tye,AB SC 01/20/2021 [place] [address] [phone] Blood Type O POSITIVE Normal AB Screen (Indirect Farooq)Vis NEGATIVE Normal Coronavirus 2019 Nasopharygeal 01/16/2021 [place] [address] [phone] Coronavirus 2019 Nasopharygeal ASSAY INFORMATIO <SEE N OTE> 34 Type & Screen -Incl Blood Type,Tye,AB SC 01/03/2021 [place] [address] [phone] Blood Type O POSITIVE Normal AB Screen (Indirect [place]ooq)Vis NEGATIVE Normal Laboratory test finding 01/03/2021 [place] [address] [phone] Packed Cells TRANSFUSED PRODU <SEE NOTE> 35 CBC With Differential 01/02/2021 [place] [address] [phone] White Blood Count 4.3 10 Normal 4.0-10.0 [...] 36.0-66.0 Lymph % 10.7 % Low 24.0-44.0 [place] % 13.1 % High 2.0-8.0 Eos % 0.7 % Normal 0.0-3.0 Baso % 0.5 % Normal 0.0-1.0 Immature Granulocyte % 0.5 % Normal 0-3.0 Nucleated Red Blood Cell % 0.0 % Normal 0-0 Neutrophils # 3.2 10 Normal 1.5-8.5 Lymph # 0.5 10 Low 1.5-5.0 [place] # 0.6 10 Normal 0.0-0.8 Eos # 0.0 10 Normal 0.0-0.5 Baso # 0.0 10 Normal 0.0-0.2 Laboratory test finding 01/02/2021 [facility] [place], [place] [address] [phone] Thyroid Stimulating Hormone 1.660 uIU/ML Normal 0. 358-3.740 Free T4 0.87 ng/dL Normal 0.76-1.46 Ferritin 58 NG/ML Normal 8-252 Comprehensive Metabolic Profil 01/02/2021 Patient [place], [place] [address] [phone] Glucose, Fasting 155 mg/dL High 70-100 Blood [...] Binding Capacit 01/02/2021 [place] [address] [phone] Iron (Fe) 55 g/dL Normal 50-170 Total Iron Binding Capacity 398 g/dL Normal 250-450 Percent Saturation 13.8 % Normal 13.2-45.0 Laboratory test finding 12/23/2020 [place] [address] [phone] iSTAT Troponin 0.01 NG/ML Normal 0.00-0.08 Istat Chem8+ Panel 12/23/2020 [place] [address] [phone] iSTAT HCT 33.0 % Low 38.0-51.0 iSTAT Glucose 94 mg/dL Normal 70-105 iSTAT Sodium 138 mEq/L Normal 136-145 iSTAT Potassium 4.2 mEq/L Normal 3.5-5.1 iSTAT CA++ 5.0 mg/dL Normal 4.5-5.3 iSTAT Chloride 102 mEq/L Normal 98-109 iSTAT Co2 27.0 MM/L Normal 23.0-27.0 iSTAT BUN 20 mg/dL Normal 8-26 iSTAT Creatinine 0.7 mg/dL Normal 0.6-1.3 CBC With Differential 12/23/2020 [place] [address] [phone] White Blood Count 4.5 10 Normal 4.0-10.0 [...] 36.0-66.0 Lymph % 9.7 % Low 24.0-44.0 [place] % 11.9 % High 2.0-8.0 Eos % 0.9 % Normal 0.0-3.0 Baso % 0.4 % Normal 0.0-1.0 Immature Granulocyte % 0.4 % Normal 0-3.0 Nucleated Red Blood Cell % 0.0 % Normal 0-0 Neutrophils # 3.5 10 Normal 1.5-8.5 Lymph # 0.4 10 Low 1.5-5.0 [place] # 0.5 10 Normal 0.0-0.8 Eos # 0.0 10 Normal 0.0-0.5 Baso # 0.0 10 Normal 0.0-0.2 PT & Aptt 12/23/2020 [place] [address] [phone] Prothrombin Time 13.3 seconds Normal 12.5-14.3 Inr 0.99 Normal 37 Partial Thromboplastin Time 29.5 seconds Normal 24.2-38.5 Liver Profile 12/23/2020 [place] [address] [phone] Ast/Sgot 13 U/L Normal 7-37 Alt/SGPT 14 U/L Normal 12-78 Alkaline Phosphatase 95 U/L Normal 45-117 Bilirubin,Total 0.9 mg/dL Normal 0.2-1.0 Bilirubin,Direct 0.3 mg/dL High 0.0-0.2 Total Protein 6.5 GM/DL Normal 6.4-8.2 Albumin 3.4 GM/DL Normal 3.2-5.2 Albumin/Globulin Ratio 1.1 Low 1.2-2.2 Laboratory test finding 12/23/2020 [place] [address] [phone] Lipase 73 U/L Normal 73-393 Lactic Acid Sepsis Protocol 0.8 mmol/L Normal 0.4-2.0 38 CBC With Differential 12/19/2020 [place] [address] [phone] White Blood Count 3.8 10 Low 4.0-10.0 [...] 36.0-66.0 Lymph % 11.7 % Low 24.0-44.0 [place] % 11.9 % High 2.0-8.0 Eos % 1.1 % Normal 0.0-3.0 Baso % 0.3 % Normal 0.0-1.0 Immature Granulocyte % 0.5 % Normal 0-3.0 Nucleated Red Blood Cell % 0.0 % Normal 0-0 Neutrophils # 2.8 10 Normal 1.5-8.5 Lymph # 0.4 10 Low 1.5-5.0 [place] # 0.5 10 Normal 0.0-0.8 Eos # 0.0 10 Normal 0.0-0.5 Baso # 0.0 10 Normal 0.0-0.2 CBC With Differential 12/05/2020 Patient Service [place], [place] [address] [phone] White Blood Count 3.4 10 Low 4.0-10.0 [...] 36.0-66.0 Lymph % 12.8 % Low 24.0-44.0 [place] % 13.7 % High 2.0-8.0 Eos % 1.2 % Normal 0.0-3.0 Baso % 0.6 % Normal 0.0-1.0 Immature Granulocyte % 0.3 % Normal 0-3.0 Nucleated Red Blood Cell % 0.0 % Normal 0-0 Neutrophils # 2.4 10 Normal 1.5-8.5 Lymph # 0.4 10 Low 1.5-5.0 [place] # 0.5 10 Normal 0.0-0.8 Eos # 0.0 10 Normal 0.0-0.5 Baso # 0.0 10 Normal 0.0-0.2 Laboratory test finding 12/05/2020 [place] [address] [phone] Ferritin 108 NG/ML Normal 8-252 Total Iron Binding Capacit 12/05/2020 [place] [address] [phone] Iron (Fe) 94 g/dL Normal 50-170 Total Iron Binding Capacity 350 g/dL Normal 250-450 Percent Saturation 26.9 % Normal 13.2-45.0 PT & Aptt 12/05/2020 [place] [address] [phone] Prothrombin Time 13.3 seconds Normal 12.5-14.3 Inr 0.99 Normal 39 Partial Thromboplastin Time 29.4 seconds Normal 24.2-38.5 PT & Aptt 11/25/2020 [place] [address] [phone] Prothrombin Time 16.4 seconds High 12.5-14.3 Inr 1.29 Normal 40 Partial Thromboplastin Time 33.4 seconds Normal 24.2-38.5 Complete Blood Count 11/25/2020 [place] [address] [phone] White Blood Count 4.4 10 Normal 4.0-10.0 [...] 0-0 Comprehensive Metabolic Profil 11/25/[address] [place] [address] [phone] Glucose, Fasting 110 mg/dL High 70-100 Blood [...] 1.2-2.2 Cardiac Marker Panel 11/25/2020 [place] [address] [phone] CPK Creatine Phosphokinase 60 U/L Normal 26-19 2 CK-MB Value Mass 1.3 NG/ML Normal <3.6 MB/CK Relative Index 2.17 Normal < Or =4 42 Troponin I < 0.02 NG/ML Normal < 0.10 43 Laboratory test finding 11/25/2020 [facility] [place] [address] [phone] NT-Pro BNP 1795 pg/mL High <450 Type & Screen -Incl Blood Type,Tye,AB SC 11/25/2020 [facility] [place] [address] [phone] Blood Type O POSITIVE Normal AB Screen [...] developed and its performance characteristics determined by [employer]. It has not been cleared or approved [...] cofactor activity; FVIII - factor VIII activity. CONTRACT OFFICER: For questions regarding panel interpretation, please contact Mikal Wasserman M.D. at [facility] at . DISCLAIMER These assessments and [...] (1) The National Heart, Lung and Blood [place]. The Diagnosis, Evaluation and Management of von Willebrand Disease. [place], [place]: National Institutes of Health Publication 08-5832. 2007. Available at http://www.nhlbi.nih.gov/guidelines/vwd/. (2) Tayo MONTES et al. Am J Hematol. 2009; 84(6):366-370. (3) Pam M et al. Haemophilia. 2004;10(3):199-217. (4) Lety WOODRUFF et al. Haemophilia. 2004; 10(3):218-231. 7 TRANSFUSED PRODUCT: PACKED C ELLS COUNT: 2 8 Performed at: [facility] [id number] Geology Faculty Member: Matt Mcdonnell MD, Phone: [phone] Performed at: [facility] [address] [place] [address] [address], [place], [place] [id number] Geology Faculty Member: Gary Youngblood MD, Phone: [phone] Performed at: [address] [id number] Geology Faculty Member: Teresa Nguyen MD, Phone: [phone] UNABLE TO PERFORM TEST DUE T [...] passenger travel. Testing and International Air Travel, cdc.gov/coronavirus/2019-ncov/travelers/bommvqb-nji-burpmd.html 09/01/2020 NOTE: The COVID-19 assay is under Emergency Use Authorization (EUA) by the U.S. Food and Drug Administration. [facility] and [facility] are designated as high complexity laboratories by the Clinical Laboratory Improvement Amendments of 1988 (CLIA) and are qualified to perform this test. Not Detected 12 TRANSFUSED PRODUCT: PACKED C ELLS COUNT: 3 13 THE CEA ASSAY IS PERFORMED O N THE Z2AUR BY CHEMILUMINESCENCE AND SHOULD NOT BE COMPARED [...] Little GFR Left ESRD GFR <15 on FLOOD CONTROL ENGINEER 15 Units are mL/min/1.73 m2 Chronic Kidney Disease Staging per NKF: Stage I & II GFR >=60 Normal to Mildly Decreased Stage III GFR 30-59 Moderately Decreased Stage IV GFR 15-29 Severely Decreased Stage V GFR <15 Very Little GFR Left ESRD GFR <15 on FLOOD CONTROL ENGINEER 16 Negative results do not prec lude [...] pathogens. DISCLAIMER: Testing was performed using the [employer] SARS-CoV-2 test. This test was developed and its performance characteristics determined by [employer]. This test has not been FDA cleared [...] Little GFR Left ESRD GFR <15 on FLOOD CONTROL ENGINEER 27 THE CEA ASSAY IS PERFORMED O N THE [facility] BY CHEMILUMINESCENCE AND SHOULD NOT BE COMPARED [...] Little GFR Left ESRD GFR <15 on FLOOD CONTROL ENGINEER 30 TRANSFUSED PRODUCT: PACKED C ELLS COUNT: [...] Little GFR Left ESRD GFR <15 on FLOOD CONTROL ENGINEER 33 Units are mL/min/1.73 m2 Chronic Kidney Disease Staging per NKF: Stage I & II GFR >=60 Normal to Mildly Decreased Stage III GFR 30-59 Moderately Decreased Stage IV GFR 15-29 Severely Decreased Stage V GFR <15 Very Little GFR Left ESRD GFR <15 on FLOOD CONTROL ENGINEER 34 ASSAY INFORMATION: Real Time RT-PCR NOTE: The COVID-19 assay has been cleared by the U.S. Food and Drug Administration under the Emergency Use Authorization (EUA). [facility] and [facility] are designated as high complexity laboratories by [...] Little GFR Left ESRD GFR <15 on FLOOD CONTROL ENGINEER 37 THERAPUTIC HUMAN INR VALUES INDICATIONS NORMAL [...] Little GFR Left ESRD GFR <15 on FLOOD CONTROL ENGINEER 42 DIAGNOSIS CRITERIA MMB ng/ml Relative Index (RI) NON-AMI < or = 5 N/A LEVINE ZONE > 5 < or = 4 AMI > 5 > 4 43 Troponin I Reference Interva l for kontoblick LOCI: 99th Percentile= 0.00-0.045 ng/ml Risk Stratification: <= 0.10 ng/ml Decreased Risk for Adverse Clinical Events. 0.10-1.50 ng/ml Increased Risk for Adv erse Clinical Events. Evaluation of additional criterion and/or repeat testing in 2-6 hours is suggested to rule out myocardial damage. >= 1.50 ng/ml Indicative of Myocardial Injury. Procedures Date Code Description Status 03/28/2021 [id number] [place] W/I 7 Days Of DC, Comm W/I 2 Dys Completed 03/23/2021 [id number] Office/Outpatient Established Mo d MDM 30-39 Min Completed 03/23/2021 [id number] Diabetic Foot Exam Completed 01/25/2021 [id number] [place] W/I 7 Days Of DC, Comm W/I 2 Dys Completed 12/27/2020 [id number] Office/Outpatient Established Mo d MDM 30-39 Min Completed 12/19/2020 [id number] Office/Outpatient Established Mo d MDM 30-39 Min Completed 12/02/2020 [id number] [place] W/I 7 Days Of DC, [...] Visit 12/19/2020 2:15p Main Office Pleskach, Nadiya, PIPEMAN E11.6 9 Type 2 diabetes mellitus with other specified complication E78.2 Mixed hyperlipidemia I10 Essential (primary) hyperten yara 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 C18.9 Malignant neoplasm of colon, unspecified I48.91 Unspecified atrial fibrillat ion Office Visit 12/02/2020 10:30a Main Office Pleskach, Nadiya, PIPEMAN D64.9 Anemia, unspecified E11.69 Type 2 diabetes mellitus wit h other specified complication E78.2 Mixed hyperlipidemia I10 Essential (primary) hyperten yara 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 C18.9 Malignant neoplasm of colon, unspecified I48.91 Unspecified atrial fibrillat ion Assessments Date Code Description Provider 03/28/2021 D64.9 Anemia, unspecified Pleskach, Mo lly, PIPEMAN 03/28/2021 K29.61 Other gastritis with bleeding Pl eskach, Nadiya, PIPEMAN 03/23/2021 E11.69 Type 2 diabetes mellitus with ot her specified complication Pleskach, Nadiya, PIPEMAN 03/23/2021 C18.9 Malignant neoplasm of colon, uns pecified Pleskach, Nadiya, PIPEMAN 03/23/2021 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 Pleskach Nadiya , PIPEMAN 03/23/2021 E78.2 Mixed hyperlipidemia Chayo Bryan, PIPEMAN 03/23/2021 I10 Essential (primary) hypertension Pleskach, Nadiya, PIPEMAN 03/23/2021 I48.91 Unspecified atrial fibrillation Pleskach, Nadiya, PIPEMAN 03/23/2021 D64.9 Anemia, unspecified Pleskach, Mo lly, PIPEMAN 01/25/2021 D64.9 Anemia, unspecified Pleskach, Mo lly, PIPEMAN 01/25/2021 K29.[address] gastritis with bleeding Pl eskach, Nadiya, PIPEMAN 12/27/2020 E11.69 Type 2 diabetes mellitus with ot her specified complication Anitha Gamez M.D. 12/27/2020 C18.9 Malignant neoplasm of colon, uns pecified Anitha Gamez M.D. 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 12/27/2020 D64.9 Anemia, unspecified Angela Gamez M.D. 12/19/2020 E11.69 Type 2 diabetes mellitus with ot her specified complication Pleskach, Nadiya, PIPEMAN 12/19/2020 E78.2 Mixed hyperlipidemia Pleskach, M jarocho, PIPEMAN 12/19/2020 I10 Essential (primary) hypertension Pleskach, Nadiya, PIPEMAN 12/19/2020 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 Pleskach, Nadiya , PIPEMAN 12/19/2020 C18.9 Malignant neoplasm of colon, uns pecified Pleskach, Nadiya, PIPEMAN 12/19/2020 I48.91 Unspecified atrial fibrillation Pleskach, Nadiya, PIPEMAN 12/02/2020 D64.9 Anemia, unspecified Pleskach, Mo lly, PIPEMAN 12/02/2020 E11.69 Type 2 diabetes mellitus with ot her specified complication Pleskach, Nadiya, PIPEMAN 12/02/2020 E78.2 Mixed hyperlipidemia Pleskach, M jarocho, PIPEMAN 12/02/2020 I10 Essential (primary) hypertension Pleskach, Nadiya, PIPEMAN 12/02/2020 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 Pleskach, Nadiya , PIPEMAN 12/02/2020 C18.9 Malignant neoplasm of colon, uns pecified Pleskach, Nadiya, PIPEMAN 12/02/2020 I48.91 Unspecified atrial fibrillation Pleskach, Nadiya, PIPEMAN Plan of Treatment Future Appointment(s):* 06/22/2021 3:30 pm - Nadiya Bryan, PIPEMAN at Main Office 03/28/2021 - Pleskach Nadiya, PIPEMAN* D64.9 Anemia, unspecified* Comments:* following with hematology, [...]
--- OUTSIDE RECORDS SUMMARY | 2021-05-23 16:53 | CCD | Continuity of Care Document ---
Author Author Meron BRYAN [employer]CTOR Organization Unknown Address [address] [place] [address] Phone [phone] Care Team Providers Care Sheriff Name Role Phone [facility] AUTM [phone] Niels Deckre M.D. AUTM [phone] [facility] AUTM [phone] Jeff Cramer AUTM [phone] Problems Active Problems Provider Date Type 2 [...] 236units C18.9 Nadiya Bryan FNP 06/16/2020 Z93.2 [place] Remover Wipes Misc use 3-4 wipes every 4 days and as needed when changing ostomy 2Box Z93.2 Nadiya Bryan FNP 06/16/2020 C18.9 Efren Adapt Ceraing change every 4-5 days and as needed ref #[id number] 20units Nadiya Bryan FNP 05/05/2020 Flushing 2 Piece Ostomy Skin Barrier ref # [id number] márquez ge every 4-5 days and as needed 20units C18.9 Nadiya Bryan FNP 04/14/2020 Z93.2 Flushing 2 Piece Drainable Ostomy Pouch ref # [id number] c hange every 4-5 days and as [...] CPT Code Status Date Vaccine Lot # [id number] Refused 04/17/2016 Pneumococcal Vaccine 91518 Refused 04/17/2016 Prevnar 13 17610 Refused 04/17/2016 Influenza Vaccination Vital Signs Date Vital Result Comment 03/28/2021 11:51am BP Systolic 113 mmHg BP Diastolic 83 mmHg Heart Rate 127 /min Body Temperature 98.0 F Respiratory Rate 18 /min Height 61.5 inches 5'1.50" Weight 114.38 lb O2 % BldC Oximetry 100 % [place] Body Weight 105 lb BMI (Body Mass Index) 21.3 kg/m2 03/23/2021 3:47pm BP Systolic 110 mmHg BP Diastolic 62 mmHg Heart Rate 64 /min Body Temperature 98.7 F Respiratory Rate 16 /min Height 61.5 inches 5'1.50" Weight 116.38 lb O2 % BldC Oximetry 99 % [place] Body Weight 105 lb BMI (Body Mass Index) 21.6 kg/m2 Results Test Acquired Date Facility Test Result H/L Range Note Type & Screen -Incl Blood Type,Tye,AB SC 05/17/2021 [facility] [place], [place] [id number] [phone] Blood Type O POSITIVE Normal AB Screen (Indirect Farooq)Vis NEGATIVE Normal CBC With Differential 05/17/2021 [place] [address] [phone] White Blood Count 4.6 10 Normal 4.0-10.0 [...] 36.0-66.0 Lymph % 5.7 % Low 24.0-44.0 [place] % 11.3 % High 2.0-8.0 Eos % 1.7 % Normal 0.0-3.0 Baso % 0.4 % Normal 0.0-1.0 Immature Granulocyte % 0.4 % Normal 0-3.0 Nucleated Red Blood Cell % 0.0 % Normal 0-0 Neutrophils # 3.7 10 Normal 1.5-8.5 Lymph # 0.3 10 Low 1.5-5.0 [place] # 0.5 10 Normal 0.0-0.8 Eos # 0.1 10 Normal 0.0-0.5 Baso # 0.0 10 Normal 0.0-0.2 Laboratory test finding 05/17/2021 [place] [address] [phone] Packed Cells TRANSFUSED PRODU <SEE NOTE> 1 CBC With Differential 05/10/2021 [place] [address] [phone] White Blood Count 5.2 10 Normal 4.0-10.0 [...] 36.0-66.0 Lymph % 4.8 % Low 24.0-44.0 [place] % 8.7 % High 2.0-8.0 Eos % 1.2 % Normal 0.0-3.0 Baso % 0.4 % Normal 0.0-1.0 Immature Granulocyte % 0.6 % Normal 0-3.0 Nucleated Red Blood Cell % 0.0 % Normal 0-0 Neutrophils # 4.4 10 Normal 1.5-8.5 Lymph # 0.3 10 Low 1.5-5.0 [place] # 0.5 10 Normal 0.0-0.8 Eos # 0.1 10 Normal 0.0-0.5 Baso # 0.0 10 Normal 0.0-0.2 CBC With Differential 05/08/2021 [place] [address] [phone] White Blood Count 4.8 10 Normal 4.0-10.0 [...] 36.0-66.0 Lymph % 5.2 % Low 24.0-44.0 [place] % 11.2 % High 2.0-8.0 Eos % 1.4 % Normal 0.0-3.0 Baso % 0.4 % Normal 0.0-1.0 Immature Granulocyte % 0.4 % Normal 0-3.0 Nucleated Red Blood Cell % 0.0 % Normal 0-0 Neutrophils # 3.9 10 Normal 1.5-8.5 Lymph # 0.3 10 Low 1.5-5.0 [place] # 0.5 10 Normal 0.0-0.8 Eos # 0.1 10 Normal 0.0-0.5 Baso # 0.0 10 Normal 0.0-0.2 Type & Screen -Incl Blood Type,Tye,AB SC 05/08/2021 [place] [address] [phone] Blood Type O POSITIVE Normal AB Screen (Indirect Farooq)Vis NEGATIVE Normal Laboratory test finding 05/08/2021 [place] [address] [phone] Packed Cells TRANSFUSED PRODU <SEE NOTE> 2 Occult Blood 05/08/2021 [place] [address] [phone] Occult Blood OCCULT BLOOD 1 <SEE NOTE> Abnormal 3 Factor VIII Panel 05/05/2021 [place] [address] [phone] F8 Activity For F8 Panel 214 % High 56-140 4 F8 Antigen For F8 Panel 115 % Normal 50-200 5 F8 Activity vWB For F8 Panel 71 % Normal 50-200 Interpretation: Note Normal . 6 Laboratory test finding 05/05/2021 [place] [address] [phone] Packed Cells TRANSFUSED PRODU <SEE NOTE> 7 Type & Screen -Incl Blood Type,Tye,AB SC 05/05/2021 [facility] [place] [address] [phone] Blood Type O POSITIVE Normal AB Screen (Indirect Farooq)Vis NEGATIVE Normal CBC With Differential 05/05/2021 [place] [address] [phone] White Blood Count 5.1 10 Normal 4.0-10.0 [...] 36.0-66.0 Lymph % 6.3 % Low 24.0-44.0 [place] % 11.5 % High 2.0-8.0 Eos % 0.8 % Normal 0.0-3.0 Baso % 0.4 % Normal 0.0-1.0 Immature Granulocyte % 0.6 % Normal 0-3.0 Nucleated Red Blood Cell % 0.0 % Normal 0-0 Neutrophils # 4.1 10 Normal 1.5-8.5 Lymph # 0.3 10 Low 1.5-5.0 [place] # 0.6 10 Normal 0.0-0.8 Eos # 0.0 10 Normal 0.0-0.5 Baso # 0.0 10 Normal 0.0-0.2 Laboratory test finding 05/05/2021 [place] [address] [phone] LDH Lactate Dehydrogenase 128 U/L Normal 84-246 Haptoglobin 214 mg/dL Normal 41-333 8 Platelet Function Analysis 05/05/2021 Patient Serv[facility] ce [place] [id number] [phone] Collagen Epinephrine TNP seconds Normal 74-162 9 Laboratory test finding 05/05/2021 [place] [address] [phone] Partial Thromboplastin Time 24.9 seconds Low 25 .9-37.0 Prothrombin Time/Inr 05/05/2021 [place] [address] [phone] Prothrombin Time 14.0 seconds Normal 12.7-14.5 Inr 1.04 Normal 10 Retic (Reticulocyte Count) 05/05/2021 [place] [address] [phone] Reticulocyte % 5.9 % High 0.5-1.5 Reticulocyte # 119.8 10 High 17-77 Retic Hemoglobin Equivalent 30.7 pg Normal 24-36 CBC With Differential 04/27/2021 [place] [address] [phone] White Blood Count 4.2 10 Normal 4.0-10.0 [...] 36.0-66.0 Lymph % 8.1 % Low 24.0-44.0 [place] % 12.8 % High 2.0-8.0 Eos % 1.0 % Normal 0.0-3.0 Baso % 0.2 % Normal 0.0-1.0 Immature Granulocyte % 0.5 % Normal 0-3.0 Nucleated Red Blood Cell % 0.0 % Normal 0-0 Neutrophils # 3.3 10 Normal 1.5-8.5 Lymph # 0.3 10 Low 1.5-5.0 [place] # 0.5 10 Normal 0.0-0.8 Eos # 0.0 10 Normal 0.0-0.5 Baso # 0.0 10 Normal 0.0-0.2 CBC With Differential 04/20/2021 [place] [address] [phone] White Blood Count 3.9 10 Low 4.0-10.0 [...] 36.0-66.0 Lymph % 8.8 % Low 24.0-44.0 [place] % 11.9 % High 2.0-8.0 Eos % 1.0 % Normal 0.0-3.0 Baso % 0.5 % Normal 0.0-1.0 Immature Granulocyte % 0.8 % Normal 0-3.0 Nucleated Red Blood Cell % 0.0 % Normal 0-0 Neutrophils # 3.0 10 Normal 1.5-8.5 Lymph # 0.3 10 Low 1.5-5.0 [place] # 0.5 10 Normal 0.0-0.8 Eos # 0.0 10 Normal 0.0-0.5 Baso # 0.0 10 Normal 0.0-0.2 CBC With Differential 04/12/2021 [place] [address] [phone] White Blood Count 4.6 10 Normal 4.0-10.0 [...] 36.0-66.0 Lymph % 6.6 % Low 24.0-44.0 [place] % 9.4 % High 2.0-8.0 Eos % 0.9 % Normal 0.0-3.0 Baso % 0.2 % Normal 0.0-1.0 Immature Granulocyte % 0.4 % Normal 0-3.0 Nucleated Red Blood Cell % 0.0 % Normal 0-0 Neutrophils # 3.8 10 Normal 1.5-8.5 Lymph # 0.3 10 Low 1.5-5.0 [place] # 0.4 10 Normal 0.0-0.8 Eos # 0.0 10 Normal 0.0-0.5 Baso # 0.0 10 Normal 0.0-0.2 Coronavirus 2019 Nasopharygeal 04/10/2021 [place] [address] [phone] Coronavirus 2019 Nasopharygeal ASSAY INFORMATIO <SEE N OTE> 11 Total Iron Binding Capacit 04/07/2021 [place] [address] [phone] Iron (Fe) 48 g/dL Low 50-170 Total Iron Binding Capacity 353 g/dL Normal 250-450 Percent Saturation 13.6 % Normal 13.2-45.0 Type & Screen -Incl Blood Type,Tye,AB SC 04/07/2021 [facility] [place], [place] [address] [phone] Blood Type O POSITIVE Normal AB Screen (Indirect Farooq)Vis NEGATIVE Normal Laboratory test finding 04/07/2021 [place] [address] [phone] Packed Cells TRANSFUSED PRODU <SEE NOTE> 12 Laboratory test finding 04/07/2021 [place] [address] [phone] Carcinoembryonic Antigen < 0.5 NG/ML Normal <2.5 13 Ferritin 66 NG/ML Normal 8-252 Comprehensive Metabolic Profil 04/07/2021 [place] [address] [phone] Glucose, Fasting 184 mg/dL High 70-100 Blood [...] With Differential 04/07/2021 [place] [address] [phone] White Blood Count 3.4 10 Low 4.0-10.0 [...] 36.0-66.0 Lymph % 8.5 % Low 24.0-44.0 [place] % 10.9 % High 2.0-8.0 Eos % 0.9 % Normal 0.0-3.0 Baso % 0.6 % Normal 0.0-1.0 Immature Granulocyte % 0.6 % Normal 0-3.0 Nucleated Red Blood Cell % 0.0 % Normal 0-0 Neutrophils # 2.7 10 Normal 1.5-8.5 Lymph # 0.3 10 Low 1.5-5.0 [place] # 0.4 10 Normal 0.0-0.8 Eos # 0.0 10 Normal 0.0-0.5 Baso # 0.0 10 Normal 0.0-0.2 Comprehensive Metabolic Profil 03/24/20[place] [address] [phone] Glucose, Fasting 96 mg/dL Normal 70-100 Blood [...] RSV Covid Amp 03/24/2021 [place] [address] [phone] Influenza A Amplification NEGATIVE Normal Negati ve 16 Influenza B Amplification NEGATIVE Normal Negative 17 RSV Amplification NEGATIVE Normal Negative 18 Sars Covid-19 Amplification NEGATIVE Normal Negative 19 Laboratory test finding 03/24/2021 [place] [address] [phone] Packed Cells TRANSFUSED PRODU <SEE NOTE> 20 CBC With Differential 03/24/2021 [place] [address] [phone] White Blood Count 4.6 10 Normal 4.0-10.0 [...] 36.0-66.0 Lymph % 6.2 % Low 24.0-44.0 [place] % 11.4 % High 2.0-8.0 Eos % 0.4 % Normal 0.0-3.0 Baso % 0.4 % Normal 0.0-1.0 Immature Granulocyte % 0.4 % Normal 0-3.0 Nucleated Red Blood Cell % 0.7 % High 0-0 Neutrophils # 3.7 10 Normal 1.5-8.5 Lymph # 0.3 10 Low 1.5-5.0 [place] # 0.5 10 Normal 0.0-0.8 Eos # 0.0 10 Normal 0.0-0.5 Baso # 0.0 10 Normal 0.0-0.2 Hemoglobin A1c 03/17/2021 [facility] [address] [place] [address] [phone] Hemoglobin A1c 4.8 % 4.8-5.6 21 Albumin/Creatinine Ratio, Random Urine 03/17/2021 [facility] [address] [place] [address] [phone] Creatinine, Urine 120.2 mg/dL Not Estab. Albumin, Urine 20.1 ug/mL Not Estab. Alb/Creat Ratio 17 mg/gcreat 0-29 22 Lipid Panel 03/17/2021 [facility] [address] [place], [place] [address] [phone] Cholesterol, Total 123 mg/dL 100-199 Triglycerides 141 mg/dL 0-149 HDL Cholesterol 37 mg/dL Low >39 VLDL Cholesterol Mark 25 mg/dL 5-40 LDL Chol Calc ([facility]) 61 mg/dL 0-99 Comment: TNP Metabolic Panel (14), Comprehensive 03/17/2021 [facility] [address] [place], [place] [id number] [phone] Calcium 9.5 mg/dL 8.7-10.3 Glucose 81 mg/dL [...] CBC With Differential [facility]/14[facility]2021 [facility] [place] [address] [phone] White Blood Count 4.0 10 Normal 4.0-10.0 [...] 36.0-66.0 Lymph % 6.8 % Low 24.0-44.0 [place] % 9.3 % High 2.0-8.0 Eos % 1.0 % Normal 0.0-3.0 Baso % 0.8 % Normal 0.0-1.0 Immature Granulocyte % 0.3 % Normal 0-3.0 Nucleated Red Blood Cell % 0.0 % Normal 0-0 Neutrophils # 3.3 10 Normal 1.5-8.5 Lymph # 0.3 10 Low 1.5-5.0 [place] # 0.4 10 Normal 0.0-0.8 Eos # 0.0 10 Normal 0.0-0.5 Baso # 0.0 10 Normal 0.0-0.2 Type & Screen -Incl Blood Type,Tye,AB SC 03/14/2021 [place] [address] [phone] Blood Type O POSITIVE Normal AB Screen (Indirect Farooq)Vis NEGATIVE Normal Laboratory test finding 03/14/2021 [place] [address] [phone] Packed Cells TRANSFUSED PRODU <SEE NOTE> 25 CBC With Differential 03/10/2021 [place] [address] [phone] White Blood Count 3.4 10 Low 4.0-10.0 [...] 36.0-66.0 Lymph % 7.6 % Low 24.0-44.0 [place] % 12.9 % High 2.0-8.0 Eos % 1.2 % Normal 0.0-3.0 Baso % 0.6 % Normal 0.0-1.0 Immature Granulocyte % 0.3 % Normal 0-3.0 Nucleated Red Blood Cell % 0.0 % Normal 0-0 Neutrophils # 2.6 10 Normal 1.5-8.5 Lymph # 0.3 10 Low 1.5-5.0 [place] # 0.4 10 Normal 0.0-0.8 Eos # 0.0 10 Normal 0.0-0.5 Baso # 0.0 10 Normal 0.0-0.2 Comprehensive Metabolic Profil 03/10/2021 [place] [address] [phone] Glucose, Fasting 166 mg/dL High 70-100 Blood [...] 1.2-2.2 Total Iron Binding Capacit 03/10/2021 [place] [address] [phone] Iron (Fe) 72 g/dL Normal 50-170 Total Iron Binding Capacity 352 g/dL Normal 250-450 Percent Saturation 20.5 % Normal 13.2-45.0 Laboratory test finding 03/10/2021 [place] [address] [phone] Carcinoembryonic Antigen < 0.5 NG/ML Normal <2.5 27 Ferritin 492 NG/ML High 8-252 Laboratory test finding 02/28/2021 [place] [address] [phone] Packed Cells TRANSFUSED PRODU <SEE NOTE> 28 Type & Screen -Incl Blood Type,Tye,AB SC 02/28/2021 [place] [address] [phone] Blood Type O POSITIVE Normal AB Screen (Indirect Farooq)Vis NEGATIVE Normal Laboratory test finding 02/27/2021 Patient Service [place] [id number] [phone] Blood Urea Nitrogen 26 mg/dL High 7-18 Creatinine With GFR 02/27/2021 [place] [address] [phone] Creatinine For GFR 0.76 mg/dL Normal 0.55-1.30 Glomerular Filtration Rate > 60.0 Normal >32 2 9 Total Iron Binding Capacit 02/27/2021 [place] [address] [phone] Iron (Fe) 79 g/dL Normal 50-170 Total Iron Binding Capacity 384 g/dL Normal 250-450 Percent Saturation 20.6 % Normal 13.2-45.0 Laboratory test finding 02/27/2021 Patient Service [place] 4267551 [phone] Ferritin 1039 NG/ML High 8-252 CBC With Differential 02/27/2021 [place] [address] [phone] White Blood Count 6.0 10 Normal 4.0-10.0 [...] 36.0-66.0 Lymph % 4.7 % Low 24.0-44.0 [place] % 11.6 % High 2.0-8.0 Eos % 0.5 % Normal 0.0-3.0 Baso % 0.3 % Normal 0.0-1.0 Immature Granulocyte % 0.8 % Normal 0-3.0 Nucleated Red Blood Cell % 0.3 % High 0-0 Neutrophils # 4.9 10 Normal 1.5-8.5 Lymph # 0.3 10 Low 1.5-5.0 [place] # 0.7 10 Normal 0.0-0.8 Eos # 0.0 10 Normal 0.0-0.5 Baso # 0.0 10 Normal 0.0-0.2 Laboratory test finding 02/10/2021 [place] [address] [phone] Packed Cells TRANSFUSED PRODU <SEE NOTE> 30 Type & Screen -Incl Blood Type,Tye,AB SC 02/10/2021 [place] [address] [phone] Blood Type O POSITIVE Normal AB Screen (Indirect Farooq)Vis NEGATIVE Normal CBC With Differential 02/09/2021 [place] [address] [phone] White Blood Count 3.9 10 Low 4.0-10.0 [...] 36.0-66.0 Lymph % 7.2 % Low 24.0-44.0 [place] % 10.0 % High 2.0-8.0 Eos % 1.0 % Normal 0.0-3.0 Baso % 0.5 % Normal 0.0-1.0 Immature Granulocyte % 0.5 % Normal 0-3.0 Nucleated Red Blood Cell % 0.0 % Normal 0-0 Neutrophils # 3.1 10 Normal 1.5-8.5 Lymph # 0.3 10 Low 1.5-5.0 [place] # 0.4 10 Normal 0.0-0.8 Eos # 0.0 10 Normal 0.0-0.5 Baso # 0.0 10 Normal 0.0-0.2 Total Iron Binding Capacit 01/27/2021 [place] [address] [phone] Iron (Fe) 59 g/dL Normal 50-170 Total Iron Binding Capacity 397 g/dL Normal 250-450 Percent Saturation 14.9 % Normal 13.2-45.0 Laboratory test finding 01/27/2021 [place] [address] [phone] Ferritin 39 NG/ML Normal 8-252 Carcinoembryonic Antigen 0.5 NG/ML Normal <2.5 31 Comprehensive Metabolic Profil 01/27/2021 [facility] [place] [address] [phone] Glucose, Fasting 59 mg/dL Low 70-100 Blood [...] 1.2-2.2 CBC With Differential 01/27/2021 [place] [address] [phone] White Blood Count 4.2 10 Normal 4.0-10.0 [...] 36.0-66.0 Lymph % 13.6 % Low 24.0-44.0 [place] % 14.6 % High 2.0-8.0 Eos % 1.4 % Normal 0.0-3.0 Baso % 0.5 % Normal 0.0-1.0 Immature Granulocyte % 0.5 % Normal 0-3.0 Nucleated Red Blood Cell % 0.0 % Normal 0-0 Neutrophils # 2.9 10 Normal 1.5-8.5 Lymph # 0.6 10 Low 1.5-5.0 [place] # 0.6 10 Normal 0.0-0.8 Eos # 0.1 10 Normal 0.0-0.5 Baso # 0.0 10 Normal 0.0-0.2 Complete Blood Count 01/20/2021 [place] [address] [phone] White Blood Count 3.3 10 Low 4.0-10.0 [...] 0-0 Laboratory test finding 01/20/2021 [place] [address] [phone] Blood Urea Nitrogen 21 mg/dL High 7-18 Creatinine With GFR 01/20/2021 [place] [address] [phone] Creatinine For GFR 0.69 mg/dL Normal 0.55-1.30 Glomerular Filtration Rate > 60.0 Normal >32 3 3 Type & Screen -Incl Blood Type,Tye,AB SC 01/20/2021 [place] [address] [phone] Blood Type O POSITIVE Normal AB Screen (Indirect Farooq)Vis NEGATIVE Normal Coronavirus 2019 Nasopharygeal 01/16/2021 [place] [address] [phone] Coronavirus 2019 Nasopharygeal ASSAY INFORMATIO <SEE N OTE> 34 Type & Screen -Incl Blood Type,Tye,AB SC 01/03/2021 [place] [address] [phone] Blood Type O POSITIVE Normal AB Screen (Indirect Farooq)Vis NEGATIVE Normal Laboratory test finding 01/03/2021 [place] [address] [phone] Packed Cells TRANSFUSED PRODU <SEE NOTE> 35 CBC With Differential 01/02/2021 [place] [address] [phone] White Blood Count 4.3 10 Normal 4.0-10.0 [...] 36.0-66.0 Lymph % 10.7 % Low 24.0-44.0 [place] % 13.1 % High 2.0-8.0 Eos % 0.7 % Normal 0.0-3.0 Baso % 0.5 % Normal 0.0-1.0 Immature Granulocyte % 0.5 % Normal 0-3.0 Nucleated Red Blood Cell % 0.0 % Normal 0-0 Neutrophils # 3.2 10 Normal 1.5-8.5 Lymph # 0.5 10 Low 1.5-5.0 [place] # 0.6 10 Normal 0.0-0.8 Eos # 0.0 10 Normal 0.0-0.5 Baso # 0.0 10 Normal 0.0-0.2 Laboratory test finding 01/02/2021 [facility] [place], [place] [address] [phone] Thyroid Stimulating Hormone 1.660 uIU/ML Normal 0. 358-3.740 Free T4 0.87 ng/dL Normal 0.76-1.46 Ferritin 58 NG/ML Normal 8-252 Comprehensive Metabolic Profil 01/02/2021 Patient [place], [place] [id number] [phone] Glucose, Fasting 155 mg/dL High 70-100 Blood [...] Binding Capacit 01/02/2021 [place] [address] [phone] Iron (Fe) 55 g/dL Normal 50-170 Total Iron Binding Capacity 398 g/dL Normal 250-450 Percent Saturation 13.8 % Normal 13.2-45.0 Laboratory test finding 12/23/2020 [place] [address] [phone] iSTAT Troponin 0.01 NG/ML Normal 0.00-0.08 Istat Chem8+ Panel 12/23/2020 [place] [address] [phone] iSTAT HCT 33.0 % Low 38.0-51.0 iSTAT Glucose 94 mg/dL Normal 70-105 iSTAT Sodium 138 mEq/L Normal 136-145 iSTAT Potassium 4.2 mEq/L Normal 3.5-5.1 iSTAT CA++ 5.0 mg/dL Normal 4.5-5.3 iSTAT Chloride 102 mEq/L Normal 98-109 iSTAT Co2 27.0 MM/L Normal 23.0-27.0 iSTAT BUN 20 mg/dL Normal 8-26 iSTAT Creatinine 0.7 mg/dL Normal 0.6-1.3 CBC With Differential 12/23/2020 [place] [address] [phone] White Blood Count 4.5 10 Normal 4.0-10.0 [...] 36.0-66.0 Lymph % 9.7 % Low 24.0-44.0 [place] % 11.9 % High 2.0-8.0 Eos % 0.9 % Normal 0.0-3.0 Baso % 0.4 % Normal 0.0-1.0 Immature Granulocyte % 0.4 % Normal 0-3.0 Nucleated Red Blood Cell % 0.0 % Normal 0-0 Neutrophils # 3.5 10 Normal 1.5-8.5 Lymph # 0.4 10 Low 1.5-5.0 [place] # 0.5 10 Normal 0.0-0.8 Eos # 0.0 10 Normal 0.0-0.5 Baso # 0.0 10 Normal 0.0-0.2 PT & Aptt 12/23/2020 [place] [address] [phone] Prothrombin Time 13.3 seconds Normal 12.5-14.3 Inr 0.99 Normal 37 Partial Thromboplastin Time 29.5 seconds Normal 24.2-38.5 Liver Profile 12/23/2020 [place] [address] [phone] Ast/Sgot 13 U/L Normal 7-37 Alt/SGPT 14 U/L Normal 12-78 Alkaline Phosphatase 95 U/L Normal 45-117 Bilirubin,Total 0.9 mg/dL Normal 0.2-1.0 Bilirubin,Direct 0.3 mg/dL High 0.0-0.2 Total Protein 6.5 GM/DL Normal 6.4-8.2 Albumin 3.4 GM/DL Normal 3.2-5.2 Albumin/Globulin Ratio 1.1 Low 1.2-2.2 Laboratory test finding 12/23/2020 [place] [address] [phone] Lipase 73 U/L Normal 73-393 Lactic Acid Sepsis Protocol 0.8 mmol/L Normal 0.4-2.0 38 CBC With Differential 12/19/2020 [place] [address] [phone] White Blood Count 3.8 10 Low 4.0-10.0 [...] 36.0-66.0 Lymph % 11.7 % Low 24.0-44.0 [place] % 11.9 % High 2.0-8.0 Eos % 1.1 % Normal 0.0-3.0 Baso % 0.3 % Normal 0.0-1.0 Immature Granulocyte % 0.5 % Normal 0-3.0 Nucleated Red Blood Cell % 0.0 % Normal 0-0 Neutrophils # 2.8 10 Normal 1.5-8.5 Lymph # 0.4 10 Low 1.5-5.0 [place] # 0.5 10 Normal 0.0-0.8 Eos # 0.0 10 Normal 0.0-0.5 Baso # 0.0 10 Normal 0.0-0.2 CBC With Differential 12/05/2020 Patient Service Ce [place], [place] [address] [phone] White Blood Count 3.4 10 Low 4.0-10.0 [...] 36.0-66.0 Lymph % 12.8 % Low 24.0-44.0 [place] % 13.7 % High 2.0-8.0 Eos % 1.2 % Normal 0.0-3.0 Baso % 0.6 % Normal 0.0-1.0 Immature Granulocyte % 0.3 % Normal 0-3.0 Nucleated Red Blood Cell % 0.0 % Normal 0-0 Neutrophils # 2.4 10 Normal 1.5-8.5 Lymph # 0.4 10 Low 1.5-5.0 [place] # 0.5 10 Normal 0.0-0.8 Eos # 0.0 10 Normal 0.0-0.5 Baso # 0.0 10 Normal 0.0-0.2 Laboratory test finding 12/05/2020 [place] [address] [phone] Ferritin 108 NG/ML Normal 8-252 Total Iron Binding Capacit 12/05/2020 [place] [address] [phone] Iron (Fe) 94 g/dL Normal 50-170 Total Iron Binding Capacity 350 g/dL Normal 250-450 Percent Saturation 26.9 % Normal 13.2-45.0 PT & Aptt 12/05/2020 [place] [address] [phone] Prothrombin Time 13.3 seconds Normal 12.5-14.3 Inr 0.99 Normal 39 Partial Thromboplastin Time 29.4 seconds Normal 24.2-38.5 PT & Aptt 11/25/2020 [place] [address] [phone] Prothrombin Time 16.4 seconds High 12.5-14.3 Inr 1.29 Normal 40 Partial Thromboplastin Time 33.4 seconds Normal 24.2-38.5 Complete Blood Count 11/25/2020 [place] [address] [phone] White Blood Count 4.4 10 Normal 4.0-10.0 [...] 0-0 Comprehensive Metabolic Profil 11/25/2020 [place] [address] [phone] Glucose, Fasting 110 mg/dL High 70-100 Blood [...] 1.2-2.2 Cardiac Marker Panel 11/25/2020 [place] [address] [phone] CPK Creatine Phosphokinase 60 U/L Normal 26-19 2 CK-MB Value Mass 1.3 NG/ML Normal <3.6 MB/CK Relative Index 2.17 Normal < Or =4 42 Troponin I < 0.02 NG/ML Normal < 0.10 43 Laboratory test finding 11/25/2020 [place] [address] [phone] NT-Pro BNP 1795 pg/mL High <450 Type & Screen -Incl Blood Type,Tye,AB SC 11/25/2020 [place] [address] [phone] Blood Type O POSITIVE Normal AB Screen [...] developed and its performance characteristics determined by [employer]. It has not been cleared or approved [...] cofactor activity; FVIII - factor VIII activity. [employer] CONSULTANT: For questions regarding panel interpretation, please contact Mikal Wasserman M.D. at [facility] [facility] at . DISCLAIMER These assessments and [...] (1) The National Heart, Lung and Blood [place]. The Diagnosis, Evaluation and Management of von Willebrand Disease. [place], [place]: National Institutes of Health Publication 08-5832. 2007. Available at http://www.nhlbi.nih.gov/guidelines/vwd/. (2) Tayo MONTES et al. Am J Hematol. 2009; 84(6):366-370. (3) Pam M et al. Haemophilia. 2004;10(3):199-217. (4) Lety WOODRUFF et al. Haemophilia. 2004; 10(3):218-231. 7 TRANSFUSED PRODUCT: PACKED C ELLS COUNT: 2 8 Performed at: [facility] [id number] [employer]: Matt Mcdonnell MD, Phone: [phone] Performed at: [facility] [address] [place] [address] [address], [place], [place] [id number] [employer]: Gary Youngblood MD, Phone: [phone] Performed at: [address] [id number] [employer]: Teresa Nguyen MD, Phone: [phone] UNABLE TO PERFORM TEST DUE T [...] passenger travel. Testing and International Air Travel, cdc.gov/coronavirus/2019-ncov/travelers/niucruo-dwf-bozrcw.html 09/01/2020 NOTE: The COVID-19 assay is under Emergency Use Authorization (EUA) by the U.S. Food and Drug Administration. [employer] [facility] and [employer] are designated as high complexity laboratories by the Clinical Laboratory Improvement Amendments of 1988 (CLIA) and are qualified to perform this test. Not Detected 12 TRANSFUSED PRODUCT: PACKED C ELLS COUNT: 3 13 THE CEA ASSAY IS PERFORMED O N THE [employer] BY CHEMILUMINESCENCE AND SHOULD NOT BE COMPARED [...] Little GFR Left ESRD GFR <15 on PROJECTOR BOOTH OPERATOR 15 Units are mL/min/1.73 m2 Chronic Kidney Disease Staging per NKF: Stage I & II GFR >=60 Normal to Mildly Decreased Stage III GFR 30-59 Moderately Decreased Stage IV GFR 15-29 Severely Decreased Stage V GFR <15 Very Little GFR Left ESRD GFR <15 on PROJECTOR BOOTH OPERATOR 16 Negative results do not prec [...] pathogens. DISCLAIMER: Testing was performed using the [employer] SARS-CoV-2 test. This test was developed and its performance characteristics determined by [employer]. This test has not been FDA cleared [...] Little GFR Left ESRD GFR <15 on PROJECTOR BOOTH OPERATOR 27 THE CEA ASSAY IS PERFORMED O N THE [employer] BY CHEMILUMINESCENCE AND SHOULD NOT BE COMPARED [...] Little GFR Left ESRD GFR <15 on PROJECTOR BOOTH OPERATOR 30 TRANSFUSED PRODUCT: PACKED C ELLS [...] Little GFR Left ESRD GFR <15 on PROJECTOR BOOTH OPERATOR 33 Units are mL/min/1.73 m2 Chronic Kidney Disease Staging per NKF: Stage I & II GFR >=60 Normal to Mildly Decreased Stage III GFR 30-59 Moderately Decreased Stage IV GFR 15-29 Severely Decreased Stage V GFR <15 Very Little GFR Left ESRD GFR <15 on PROJECTOR BOOTH OPERATOR 34 ASSAY INFORMATION: Real Time RT-PCR NOTE: The COVID-19 assay has been cleared by the U.S. Food and Drug Administration under the Emergency Use Authorization (EUA). 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 0.10-1.50 ng/ml Increased Risk for Adv erse Clinical Events. Evaluation of additional criterion and/or repeat testing in 2-6 hours is suggested to rule out myocardial damage. >= 1.50 ng/ml Indicative of Myocardial Injury. Procedures Date Code Description Status 03/28/2021 [id number] [place] W/I 7 Days Of DC, Comm W/I 2 Dys Completed 03/23/2021 [id number] Office/Outpatient Established Mo d MDM 30-39 Min Completed 03/23/2021 [id number] Diabetic Foot Exam Completed 01/25/2021 [id number] [place] W/I 7 Days Of DC, Comm W/I 2 Dys Completed 12/27/2020 [id number] Office/Outpatient Established Mo d MDM 30-39 Min Completed 12/19/2020 [id number] Office/Outpatient Established Mo d MDM 30-39 Min Completed 12/02/2020 [id number] [place] W/I 7 Days Of DC, [...] E78.2 Mixed hyperlipidemia I10 Essential (primary) hyperten yraa I48.91 Unspecified atrial fibrillat ion D64.9 Anemia, [...] Visit 12/19/2020 2:15p Main Office Pleskach, Nadiya, AUTO COLLISION REPAIR INSTRUCTOR E11.6 9 Type 2 diabetes mellitus with other specified complication E78.2 Mixed hyperlipidemia I10 Essential (primary) hyperten yara 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 C18.9 Malignant neoplasm of colon, unspecified I48.91 Unspecified atrial fibrillat ion Office Visit 12/02/2020 10:30a Main Office Pleskach, Nadiya, AUTO COLLISION REPAIR INSTRUCTOR D64.9 Anemia, unspecified E11.69 Type 2 diabetes mellitus wit h other specified complication E78.2 Mixed hyperlipidemia I10 Essential (primary) hyperten yara 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 C18.9 Malignant neoplasm of colon, unspecified I48.91 Unspecified atrial fibrillat ion Assessments Date Code Description Provider 03/28/2021 D64.9 Anemia, unspecified Pleskach, Mo lly, AUTO COLLISION REPAIR INSTRUCTOR 03/28/2021 K29.61 Other gastritis with bleeding Pl eskach, Nadiya, AUTO COLLISION REPAIR INSTRUCTOR 03/23/2021 E11.69 Type 2 diabetes mellitus with ot her specified complication Pleskach, Nadiya, AUTO COLLISION REPAIR INSTRUCTOR 03/23/2021 C18.9 Malignant neoplasm of colon, uns pecified Pleskach, Nadiya, AUTO COLLISION REPAIR INSTRUCTOR 03/23/2021 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 Pleskach Nadiya , AUTO COLLISION REPAIR INSTRUCTOR 03/23/2021 E78.2 Mixed hyperlipidemia Chayo Bryan, AUTO COLLISION REPAIR INSTRUCTOR 03/23/2021 I10 Essential (primary) hypertension Pleskach, Nadiya, AUTO COLLISION REPAIR INSTRUCTOR 03/23/2021 I48.91 Unspecified atrial fibrillation Pleskach, Nadiya, AUTO COLLISION REPAIR INSTRUCTOR 03/23/2021 D64.9 Anemia, unspecified Pleskach, Mo lly, AUTO COLLISION REPAIR INSTRUCTOR 01/25/2021 D64.9 Anemia, unspecified Pleskach, Mo lly, AUTO COLLISION REPAIR INSTRUCTOR 01/25/2021 K29.[address] with bleeding Pl eskach, Nadiya, AUTO COLLISION REPAIR INSTRUCTOR 12/27/2020 E11.69 Type 2 diabetes mellitus with ot her specified complication Anitha Gamez M.D. 12/27/2020 C18.9 Malignant neoplasm of colon, uns pecified Anitha Gamez M.D. 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 12/27/2020 D64.9 Anemia, unspecified Agnela Gamez M.D. 12/19/2020 E11.69 Type 2 diabetes mellitus with ot her specified complication Pleskach, Nadiya, AUTO COLLISION REPAIR INSTRUCTOR 12/19/2020 E78.2 Mixed hyperlipidemia Pleskach, M jarocho, AUTO COLLISION REPAIR INSTRUCTOR 12/19/2020 I10 Essential (primary) hypertension Pleskach, Nadiya, AUTO COLLISION REPAIR INSTRUCTOR 12/19/2020 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 Pleskach, Nadiya , AUTO COLLISION REPAIR INSTRUCTOR 12/19/2020 C18.9 Malignant neoplasm of colon, uns pecified Pleskach, Nadiya, AUTO COLLISION REPAIR INSTRUCTOR 12/19/2020 I48.91 Unspecified atrial fibrillation Pleskach, Nadiya, AUTO COLLISION REPAIR INSTRUCTOR 12/02/2020 D64.9 Anemia, unspecified Pleskach, Mo lly, AUTO COLLISION REPAIR INSTRUCTOR 12/02/2020 E11.69 Type 2 diabetes mellitus with ot her specified complication Pleskach, Nadiya, AUTO COLLISION REPAIR INSTRUCTOR 12/02/2020 E78.2 Mixed hyperlipidemia Pleskach, M jarocho, AUTO COLLISION REPAIR INSTRUCTOR 12/02/2020 I10 Essential (primary) hypertension Pleskach, Nadiya, AUTO COLLISION REPAIR INSTRUCTOR 12/02/2020 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 Pleskach, Nadiya , AUTO COLLISION REPAIR INSTRUCTOR 12/02/2020 C18.9 Malignant neoplasm of colon, uns pecified Pleskach, Nadiya, AUTO COLLISION REPAIR INSTRUCTOR 12/02/2020 I48.91 Unspecified atrial fibrillation Pleskach, Nadiya, AUTO COLLISION REPAIR INSTRUCTOR Plan of Treatment Future Appointment(s):* 06/22/2021 3:30 pm - Nadiya Bryan, AUTO COLLISION REPAIR INSTRUCTOR at Main Office 03/28/2021 - Pleskach Nadiya, AUTO COLLISION REPAIR INSTRUCTOR* D64.9 Anemia, unspecified* Comments:* following with hematology, [...]
--- OUTSIDE RECORDS SUMMARY | 2021-05-23 16:53 | CCD | Continuity of Care Document ---
Author Author Meron BRYAN [employer] SALESPERSON Organization Unknown Address [address] [place] [address] Phone [phone] Care Team Providers Care Continuity Manager Name Role Phone [facility] AUTM [phone] Niels Decker M.D. AUTM [phone] [facility] AUTM Jeff Cramer AUTM [phone] Problems Active Problems Provider Date Type 2 [...] 236units C18.9 Nadiya Bryan FNP 06/16/2020 Z93.2 Bunkie Remover Wipes Misc use 3-4 wipes every 4 days and as needed when changing ostomy 2Box Z93.2 Nadiya Bryan FNP 06/16/2020 C18.9 Efren Adapt Ceraing change every 4-5 days and as needed ref #[id number] 20units Nadiya Bryan FNP 05/05/2020 [place] 2 Piece Ostomy Skin Barrier ref # [id number] márquez ge every 4-5 days and as needed 20units C18.9 Nadiya Bryan FNP 04/14/2020 Z93.2 [place] 2 Piece Drainable Ostomy Pouch ref # [id number] c hange every 4-5 days and as [...] CPT Code Status Date Vaccine Lot # [id number] Refused 04/17/2016 Pneumococcal Vaccine 58078 Refused 04/17/2016 Prevnar 13 06545 Refused 04/17/2016 Influenza Vaccination Vital Signs Date Vital Result Comment 03/28/2021 11:51am BP Systolic 113 mmHg BP Diastolic 83 mmHg Heart Rate 127 /min Body Temperature 98.0 F Respiratory Rate 18 /min Height 61.5 inches 5'1.50" Weight 114.38 lb O2 % BldC Oximetry 100 % [place] Body Weight 105 lb BMI (Body Mass Index) 21.3 kg/m2 03/23/2021 3:47pm BP Systolic 110 mmHg BP Diastolic 62 mmHg Heart Rate 64 /min Body Temperature 98.7 F Respiratory Rate 16 /min Height 61.5 inches 5'1.50" Weight 116.38 lb O2 % BldC Oximetry 99 % [place] Body Weight 105 lb BMI (Body Mass Index) 21.6 kg/m2 Results Test Acquired Date Facility Test Result H/L Range Note Type & Screen -Incl Blood Type,Tye,AB SC 05/17/2021 [facility] [place], [place] [id number] [phone] Blood Type O POSITIVE Normal AB Screen (Indirect Farooq)Vis NEGATIVE Normal CBC With Differential 05/17/2021 [place] [address] [phone] White Blood Count 4.6 10 Normal 4.0-10.0 [...] 36.0-66.0 Lymph % 5.7 % Low 24.0-44.0 Moody % 11.3 % High 2.0-8.0 Eos % 1.7 % Normal 0.0-3.0 Baso % 0.4 % Normal 0.0-1.0 Immature Granulocyte % 0.4 % Normal 0-3.0 Nucleated Red Blood Cell % 0.0 % Normal 0-0 Neutrophils # 3.7 10 Normal 1.5-8.5 Lymph # 0.3 10 Low 1.5-5.0 Moody # 0.5 10 Normal 0.0-0.8 Eos # 0.1 10 Normal 0.0-0.5 Baso # 0.0 10 Normal 0.0-0.2 Laboratory test finding 05/17/2021 [place] [address] [phone] Packed Cells TRANSFUSED PRODU <SEE NOTE> 1 CBC With Differential 05/10/2021 [place] [address] [phone] White Blood Count 5.2 10 Normal 4.0-10.0 [...] 36.0-66.0 Lymph % 4.8 % Low 24.0-44.0 Moody % 8.7 % High 2.0-8.0 Eos % 1.2 % Normal 0.0-3.0 Baso % 0.4 % Normal 0.0-1.0 Immature Granulocyte % 0.6 % Normal 0-3.0 Nucleated Red Blood Cell % 0.0 % Normal 0-0 Neutrophils # 4.4 10 Normal 1.5-8.5 Lymph # 0.3 10 Low 1.5-5.0 Moody # 0.5 10 Normal 0.0-0.8 Eos # 0.1 10 Normal 0.0-0.5 Baso # 0.0 10 Normal 0.0-0.2 CBC With Differential 05/08/2021 [place] [address] [phone] White Blood Count 4.8 10 Normal 4.0-10.0 [...] 36.0-66.0 Lymph % 5.2 % Low 24.0-44.0 Moody % 11.2 % High 2.0-8.0 Eos % 1.4 % Normal 0.0-3.0 Baso % 0.4 % Normal 0.0-1.0 Immature Granulocyte % 0.4 % Normal 0-3.0 Nucleated Red Blood Cell % 0.0 % Normal 0-0 Neutrophils # 3.9 10 Normal 1.5-8.5 Lymph # 0.3 10 Low 1.5-5.0 Moody # 0.5 10 Normal 0.0-0.8 Eos # 0.1 10 Normal 0.0-0.5 Baso # 0.0 10 Normal 0.0-0.2 Type & Screen -Incl Blood Type,Tye,AB SC 05/08/2021 [place] [address] [phone] Blood Type O POSITIVE Normal AB Screen (Indirect Farooq)Vis NEGATIVE Normal Laboratory test finding 05/08/2021 [place] [address] [phone] Packed Cells TRANSFUSED PRODU <SEE NOTE> 2 Occult Blood 05/08/2021 [place] [address] [phone] Occult Blood OCCULT BLOOD 1 <SEE NOTE> Abnormal 3 Factor VIII Panel 05/05/2021 [place] [address] [phone] F8 Activity For F8 Panel 214 % High 56-140 4 F8 Antigen For F8 Panel 115 % Normal 50-200 5 F8 Activity vWB For F8 Panel 71 % Normal 50-200 Interpretation: Note Normal . 6 Laboratory test finding 05/05/2021 [place] [address] [phone] Packed Cells TRANSFUSED PRODU <SEE NOTE> 7 Type & Screen -Incl Blood Type,Tye,AB SC 05/05/2021 [place] [address] [phone] Blood Type O POSITIVE Normal AB Screen (Indirect Farooq)Vis NEGATIVE Normal CBC With Differential 05/05/2021 [place] [address] [phone] White Blood Count 5.1 10 Normal 4.0-10.0 [...] 36.0-66.0 Lymph % 6.3 % Low 24.0-44.0 Moody % 11.5 % High 2.0-8.0 Eos % 0.8 % Normal 0.0-3.0 Baso % 0.4 % Normal 0.0-1.0 Immature Granulocyte % 0.6 % Normal 0-3.0 Nucleated Red Blood Cell % 0.0 % Normal 0-0 Neutrophils # 4.1 10 Normal 1.5-8.5 Lymph # 0.3 10 Low 1.5-5.0 Moody # 0.6 10 Normal 0.0-0.8 Eos # 0.0 10 Normal 0.0-0.5 Baso # 0.0 10 Normal 0.0-0.2 Laboratory test finding 05/05/2021 [place] [address] [phone] LDH Lactate Dehydrogenase 128 U/L Normal 84-246 Haptoglobin 214 mg/dL Normal 41-333 8 Platelet Function Analysis 05/05/2021 Patient Serv[facility] [place] [id number] [phone] Collagen Epinephrine TNP seconds Normal 74-162 9 Laboratory test finding 05/05/2021 [place] [address] [phone] Partial Thromboplastin Time 24.9 seconds Low 25 .9-37.0 Prothrombin Time/Inr 05/05/2021 [place] [address] [phone] Prothrombin Time 14.0 seconds Normal 12.7-14.5 Inr 1.04 Normal 10 Retic (Reticulocyte Count) 05/05/2021 [place] [address] [phone] Reticulocyte % 5.9 % High 0.5-1.5 Reticulocyte # 119.8 10 High 17-77 Retic Hemoglobin Equivalent 30.7 pg Normal 24-36 CBC With Differential 04/27/2021 [place] [address] [phone] White Blood Count 4.2 10 Normal 4.0-10.0 [...] 36.0-66.0 Lymph % 8.1 % Low 24.0-44.0 Moody % 12.8 % High 2.0-8.0 Eos % 1.0 % Normal 0.0-3.0 Baso % 0.2 % Normal 0.0-1.0 Immature Granulocyte % 0.5 % Normal 0-3.0 Nucleated Red Blood Cell % 0.0 % Normal 0-0 Neutrophils # 3.3 10 Normal 1.5-8.5 Lymph # 0.3 10 Low 1.5-5.0 Moody # 0.5 10 Normal 0.0-0.8 Eos # 0.0 10 Normal 0.0-0.5 Baso # 0.0 10 Normal 0.0-0.2 CBC With Differential 04/20/2021 [place] [address] [phone] White Blood Count 3.9 10 Low 4.0-10.0 [...] 36.0-66.0 Lymph % 8.8 % Low 24.0-44.0 Moody % 11.9 % High 2.0-8.0 Eos % 1.0 % Normal 0.0-3.0 Baso % 0.5 % Normal 0.0-1.0 Immature Granulocyte % 0.8 % Normal 0-3.0 Nucleated Red Blood Cell % 0.0 % Normal 0-0 Neutrophils # 3.0 10 Normal 1.5-8.5 Lymph # 0.3 10 Low 1.5-5.0 Moody # 0.5 10 Normal 0.0-0.8 Eos # 0.0 10 Normal 0.0-0.5 Baso # 0.0 10 Normal 0.0-0.2 CBC With Differential 04/12/2021 [place] [address] [phone] White Blood Count 4.6 10 Normal 4.0-10.0 [...] 36.0-66.0 Lymph % 6.6 % Low 24.0-44.0 Moody % 9.4 % High 2.0-8.0 Eos % 0.9 % Normal 0.0-3.0 Baso % 0.2 % Normal 0.0-1.0 Immature Granulocyte % 0.4 % Normal 0-3.0 Nucleated Red Blood Cell % 0.0 % Normal 0-0 Neutrophils # 3.8 10 Normal 1.5-8.5 Lymph # 0.3 10 Low 1.5-5.0 Moody # 0.4 10 Normal 0.0-0.8 Eos # 0.0 10 Normal 0.0-0.5 Baso # 0.0 10 Normal 0.0-0.2 Coronavirus 2019 Nasopharygeal 04/10/2021 [place] [address] [phone] Coronavirus 2019 Nasopharygeal ASSAY INFORMATIO <SEE N OTE> 11 Total Iron Binding Capacit 04/07/2021 [place] [address] [phone] Iron (Fe) 48 g/dL Low 50-170 Total Iron Binding Capacity 353 g/dL Normal 250-450 Percent Saturation 13.6 % Normal 13.2-45.0 Type & Screen -Incl Blood Type,Tye,AB SC 04/07/2021 [facility] [place], [place] [id number] [phone] Blood Type O POSITIVE Normal AB Screen (Indirect Farooq)Vis NEGATIVE Normal Laboratory test finding 04/07/2021 [place] [address] [phone] Packed Cells TRANSFUSED PRODU <SEE NOTE> 12 Laboratory test finding 04/07/2021 [place] [address] [phone] Carcinoembryonic Antigen < 0.5 NG/ML Normal <2.5 13 Ferritin 66 NG/ML Normal 8-252 Comprehensive Metabolic Profil 04/07/2021 [place] [address] [phone] Glucose, Fasting 184 mg/dL High 70-100 Blood [...] With Differential 04/07/2021 [place] [address] [phone] White Blood Count 3.4 10 Low 4.0-10.0 [...] 36.0-66.0 Lymph % 8.5 % Low 24.0-44.0 Moody % 10.9 % High 2.0-8.0 Eos % 0.9 % Normal 0.0-3.0 Baso % 0.6 % Normal 0.0-1.0 Immature Granulocyte % 0.6 % Normal 0-3.0 Nucleated Red Blood Cell % 0.0 % Normal 0-0 Neutrophils # 2.7 10 Normal 1.5-8.5 Lymph # 0.3 10 Low 1.5-5.0 Moody # 0.4 10 Normal 0.0-0.8 Eos # 0.0 10 Normal 0.0-0.5 Baso # 0.0 10 Normal 0.0-0.2 Comprehensive Metabolic Profil 03/24/2021 [place] [address] [phone] Glucose, Fasting 96 mg/dL Normal 70-100 Blood [...] A/B RSV Covid Amp 03/24/2021 [place] [address] [phone] Influenza A Amplification NEGATIVE Normal Negati ve 16 Influenza B Amplification NEGATIVE Normal Negative 17 RSV Amplification NEGATIVE Normal Negative 18 Sars Covid-19 Amplification NEGATIVE Normal Negative 19 Laboratory test finding 03/24/2021 [place] [address] [phone] Packed Cells TRANSFUSED PRODU <SEE NOTE> 20 CBC With Differential 03/24/2021 [place] [address] [phone] White Blood Count 4.6 10 Normal 4.0-10.0 [...] 36.0-66.0 Lymph % 6.2 % Low 24.0-44.0 Moody % 11.4 % High 2.0-8.0 Eos % 0.4 % Normal 0.0-3.0 Baso % 0.4 % Normal 0.0-1.0 Immature Granulocyte % 0.4 % Normal 0-3.0 Nucleated Red Blood Cell % 0.7 % High 0-0 Neutrophils # 3.7 10 Normal 1.5-8.5 Lymph # 0.3 10 Low 1.5-5.0 Moody # 0.5 10 Normal 0.0-0.8 Eos # 0.0 10 Normal 0.0-0.5 Baso # 0.0 10 Normal 0.0-0.2 Hemoglobin A1c 03/17/2021 [facility] [address] [place] [address] [phone] Hemoglobin A1c 4.8 % 4.8-5.6 21 Albumin/Creatinine Ratio, Random Urine 03/17/2021 [facility] [address] [place] [address] [phone] Creatinine, Urine 120.2 mg/dL Not Estab. Albumin, Urine 20.1 ug/mL Not Estab. Alb/Creat Ratio 17 mg/gcreat 0-29 22 Lipid Panel 03/17/2021 [facility] [address] [place], [place] [id number] [phone] Cholesterol, Total 123 mg/dL 100-199 Triglycerides 141 mg/dL 0-149 HDL Cholesterol 37 mg/dL Low >39 VLDL Cholesterol Mark 25 mg/dL 5-40 LDL Chol Calc ([facility]) 61 mg/dL 0-99 Comment: TNP Metabolic Panel (14), Comprehensive 03/17/2021 [facility] [address] [place], [place] [address] [phone] Calcium 9.5 mg/dL 8.7-10.3 Glucose 81 mg/dL [...] CBC With Differential 03/14[facility] [place] [address] [phone] White Blood Count 4.0 10 Normal 4.0-10.0 [...] 36.0-66.0 Lymph % 6.8 % Low 24.0-44.0 Moody % 9.3 % High 2.0-8.0 Eos % 1.0 % Normal 0.0-3.0 Baso % 0.8 % Normal 0.0-1.0 Immature Granulocyte % 0.3 % Normal 0-3.0 Nucleated Red Blood Cell % 0.0 % Normal 0-0 Neutrophils # 3.3 10 Normal 1.5-8.5 Lymph # 0.3 10 Low 1.5-5.0 Moody # 0.4 10 Normal 0.0-0.8 Eos # 0.0 10 Normal 0.0-0.5 Baso # 0.0 10 Normal 0.0-0.2 Type & Screen -Incl Blood Type,Tye,AB SC 03/14/2021 [place] [address] [phone] Blood Type O POSITIVE Normal AB Screen (Indirect Farooq)Vis NEGATIVE Normal Laboratory test finding 03/14/2021 [place] [address] [phone] Packed Cells TRANSFUSED PRODU <SEE NOTE> 25 CBC With Differential 03/10/2021 [place] [address] [phone] White Blood Count 3.4 10 Low 4.0-10.0 [...] 36.0-66.0 Lymph % 7.6 % Low 24.0-44.0 Moody % 12.9 % High 2.0-8.0 Eos % 1.2 % Normal 0.0-3.0 Baso % 0.6 % Normal 0.0-1.0 Immature Granulocyte % 0.3 % Normal 0-3.0 Nucleated Red Blood Cell % 0.0 % Normal 0-0 Neutrophils # 2.6 10 Normal 1.5-8.5 Lymph # 0.3 10 Low 1.5-5.0 Moody # 0.4 10 Normal 0.0-0.8 Eos # 0.0 10 Normal 0.0-0.5 Baso # 0.0 10 Normal 0.0-0.2 Comprehensive Metabolic Profil 03/10/20[address] [place] [address] [phone] Glucose, Fasting 166 mg/dL High 70-100 Blood [...] 1.2-2.2 Total Iron Binding Capacit 03/10/2021 [place] [address] [phone] Iron (Fe) 72 g/dL Normal 50-170 Total Iron Binding Capacity 352 g/dL Normal 250-450 Percent Saturation 20.5 % Normal 13.2-45.0 Laboratory test finding 03/10/2021 [place] [address] [phone] Carcinoembryonic Antigen < 0.5 NG/ML Normal <2.5 27 Ferritin 492 NG/ML High 8-252 Laboratory test finding 02/28/2021 [place] [address] [phone] Packed Cells TRANSFUSED PRODU <SEE NOTE> 28 Type & Screen -Incl Blood Type,Tye,AB SC 02/28/2021 [place] [address] [phone] Blood Type O POSITIVE Normal AB Screen (Indirect Farooq)Vis NEGATIVE Normal Laboratory test finding 02/27/2021 Patient Service [place] [address]89 [phone] Blood Urea Nitrogen 26 mg/dL High 7-18 Creatinine With GFR 02/27/2021 [place] [address] [phone] Creatinine For GFR 0.76 mg/dL Normal 0.55-1.30 Glomerular Filtration Rate > 60.0 Normal >32 2 9 Total Iron Binding Capacit 02/27/2021 [place] [address] [phone] Iron (Fe) 79 g/dL Normal 50-170 Total Iron Binding Capacity 384 g/dL Normal 250-450 Percent Saturation 20.6 % Normal 13.2-45.0 Laboratory test finding 02/27/2021 Patient Service [place] [address]41 [phone] Ferritin 1039 NG/ML High 8-252 CBC With Differential 02/27/2021 [place] [address] [phone] White Blood Count 6.0 10 Normal 4.0-10.0 [...] 36.0-66.0 Lymph % 4.7 % Low 24.0-44.0 Moody % 11.6 % High 2.0-8.0 Eos % 0.5 % Normal 0.0-3.0 Baso % 0.3 % Normal 0.0-1.0 Immature Granulocyte % 0.8 % Normal 0-3.0 Nucleated Red Blood Cell % 0.3 % High 0-0 Neutrophils # 4.9 10 Normal 1.5-8.5 Lymph # 0.3 10 Low 1.5-5.0 Moody # 0.7 10 Normal 0.0-0.8 Eos # 0.0 10 Normal 0.0-0.5 Baso # 0.0 10 Normal 0.0-0.2 Laboratory test finding 02/10/2021 [place] [address] [phone] Packed Cells TRANSFUSED PRODU <SEE NOTE> 30 Type & Screen -Incl Blood Type,Tye,AB SC 02/10/2021 [place] [address] [phone] Blood Type O POSITIVE Normal AB Screen (Indirect Farooq)Vis NEGATIVE Normal CBC With Differential 02/09/2021 [place] [address] [phone] White Blood Count 3.9 10 Low 4.0-10.0 [...] 36.0-66.0 Lymph % 7.2 % Low 24.0-44.0 Moody % 10.0 % High 2.0-8.0 Eos % 1.0 % Normal 0.0-3.0 Baso % 0.5 % Normal 0.0-1.0 Immature Granulocyte % 0.5 % Normal 0-3.0 Nucleated Red Blood Cell % 0.0 % Normal 0-0 Neutrophils # 3.1 10 Normal 1.5-8.5 Lymph # 0.3 10 Low 1.5-5.0 Moody # 0.4 10 Normal 0.0-0.8 Eos # 0.0 10 Normal 0.0-0.5 Baso # 0.0 10 Normal 0.0-0.2 Total Iron Binding Capacit 01/27/2021 [place] [address] [phone] Iron (Fe) 59 g/dL Normal 50-170 Total Iron Binding Capacity 397 g/dL Normal 250-450 Percent Saturation 14.9 % Normal 13.2-45.0 Laboratory test finding 01/27/2021 [place] [address] [phone] Ferritin 39 NG/ML Normal 8-252 Carcinoembryonic Antigen 0.5 NG/ML Normal <2.5 31 Comprehensive Metabolic Profil 01/27/2021 [facility] [place] [address] [phone] Glucose, Fasting 59 mg/dL Low 70-100 Blood [...] 1.2-2.2 CBC With Differential 01/27/2021 [place] [address] [phone] White Blood Count 4.2 10 Normal 4.0-10.0 [...] 36.0-66.0 Lymph % 13.6 % Low 24.0-44.0 Moody % 14.6 % High 2.0-8.0 Eos % 1.4 % Normal 0.0-3.0 Baso % 0.5 % Normal 0.0-1.0 Immature Granulocyte % 0.5 % Normal 0-3.0 Nucleated Red Blood Cell % 0.0 % Normal 0-0 Neutrophils # 2.9 10 Normal 1.5-8.5 Lymph # 0.6 10 Low 1.5-5.0 Moody # 0.6 10 Normal 0.0-0.8 Eos # 0.1 10 Normal 0.0-0.5 Baso # 0.0 10 Normal 0.0-0.2 Complete Blood Count 01/20/2021 [place] [address] [phone] White Blood Count 3.3 10 Low 4.0-10.0 [...] 0-0 Laboratory test finding 01/20/2021 [place] [address] [phone] Blood Urea Nitrogen 21 mg/dL High 7-18 Creatinine With GFR 01/20/2021 [place] [address] [phone] Creatinine For GFR 0.69 mg/dL Normal 0.55-1.30 Glomerular Filtration Rate > 60.0 Normal >32 3 3 Type & Screen -Incl Blood Type,Tye,AB SC 01/20/2021 [place] [address] [phone] Blood Type O POSITIVE Normal AB Screen (Indirect Farooq)Vis NEGATIVE Normal Coronavirus 2019 Nasopharygeal 01/16/2021 [place] [address] [phone] Coronavirus 2019 Nasopharygeal ASSAY INFORMATIO <SEE N OTE> 34 Type & Screen -Incl Blood Type,Tye,AB SC 01/03/2021 [place] [address] [phone] Blood Type O POSITIVE Normal AB Screen (Indirect Farooq)Vis NEGATIVE Normal Laboratory test finding 01/03/2021 [place] [address] [phone] Packed Cells TRANSFUSED PRODU <SEE NOTE> 35 CBC With Differential 01/02/2021 [place] [address] [phone] White Blood Count 4.3 10 Normal 4.0-10.0 [...] 36.0-66.0 Lymph % 10.7 % Low 24.0-44.0 Moody % 13.1 % High 2.0-8.0 Eos % 0.7 % Normal 0.0-3.0 Baso % 0.5 % Normal 0.0-1.0 Immature Granulocyte % 0.5 % Normal 0-3.0 Nucleated Red Blood Cell % 0.0 % Normal 0-0 Neutrophils # 3.2 10 Normal 1.5-8.5 Lymph # 0.5 10 Low 1.5-5.0 Moody # 0.6 10 Normal 0.0-0.8 Eos # 0.0 10 Normal 0.0-0.5 Baso # 0.0 10 Normal 0.0-0.2 Laboratory test finding 01/02/2021 [facility] [place], [place] [id number] [phone] Thyroid Stimulating Hormone 1.660 uIU/ML Normal 0. 358-3.740 Free T4 0.87 ng/dL Normal 0.76-1.46 Ferritin 58 NG/ML Normal 8-252 Comprehensive Metabolic Profil 01/02/2021 Patient [place], [place] [address]859391 [phone] Glucose, Fasting 155 mg/dL High 70-100 Blood [...] Binding Capacit 01/02/2021 [place] [address] [phone] Iron (Fe) 55 g/dL Normal 50-170 Total Iron Binding Capacity 398 g/dL Normal 250-450 Percent Saturation 13.8 % Normal 13.2-45.0 Laboratory test finding 12/23/2020 [place] [address] [phone] iSTAT Troponin 0.01 NG/ML Normal 0.00-0.08 Istat Chem8+ Panel 12/23/2020 [place] [address] [phone] iSTAT HCT 33.0 % Low 38.0-51.0 iSTAT Glucose 94 mg/dL Normal 70-105 iSTAT Sodium 138 mEq/L Normal 136-145 iSTAT Potassium 4.2 mEq/L Normal 3.5-5.1 iSTAT CA++ 5.0 mg/dL Normal 4.5-5.3 iSTAT Chloride 102 mEq/L Normal 98-109 iSTAT Co2 27.0 MM/L Normal 23.0-27.0 iSTAT BUN 20 mg/dL Normal 8-26 iSTAT Creatinine 0.7 mg/dL Normal 0.6-1.3 CBC With Differential 12/23/2020 [place] [address] [phone] White Blood Count 4.5 10 Normal 4.0-10.0 [...] 36.0-66.0 Lymph % 9.7 % Low 24.0-44.0 Moody % 11.9 % High 2.0-8.0 Eos % 0.9 % Normal 0.0-3.0 Baso % 0.4 % Normal 0.0-1.0 Immature Granulocyte % 0.4 % Normal 0-3.0 Nucleated Red Blood Cell % 0.0 % Normal 0-0 Neutrophils # 3.5 10 Normal 1.5-8.5 Lymph # 0.4 10 Low 1.5-5.0 Moody # 0.5 10 Normal 0.0-0.8 Eos # 0.0 10 Normal 0.0-0.5 Baso # 0.0 10 Normal 0.0-0.2 PT & Aptt 12/23/2020 [place] [address] [phone] Prothrombin Time 13.3 seconds Normal 12.5-14.3 Inr 0.99 Normal 37 Partial Thromboplastin Time 29.5 seconds Normal 24.2-38.5 Liver Profile 12/23/2020 [place] [address] [phone] Ast/Sgot 13 U/L Normal 7-37 Alt/SGPT 14 U/L Normal 12-78 Alkaline Phosphatase 95 U/L Normal 45-117 Bilirubin,Total 0.9 mg/dL Normal 0.2-1.0 Bilirubin,Direct 0.3 mg/dL High 0.0-0.2 Total Protein 6.5 GM/DL Normal 6.4-8.2 Albumin 3.4 GM/DL Normal 3.2-5.2 Albumin/Globulin Ratio 1.1 Low 1.2-2.2 Laboratory test finding 12/23/2020 [place] [address] [phone] Lipase 73 U/L Normal 73-393 Lactic Acid Sepsis Protocol 0.8 mmol/L Normal 0.4-2.0 38 CBC With Differential 12/19/2020 [place] [address] [phone] White Blood Count 3.8 10 Low 4.0-10.0 [...] 36.0-66.0 Lymph % 11.7 % Low 24.0-44.0 Moody % 11.9 % High 2.0-8.0 Eos % 1.1 % Normal 0.0-3.0 Baso % 0.3 % Normal 0.0-1.0 Immature Granulocyte % 0.5 % Normal 0-3.0 Nucleated Red Blood Cell % 0.0 % Normal 0-0 Neutrophils # 2.8 10 Normal 1.5-8.5 Lymph # 0.4 10 Low 1.5-5.0 Moody # 0.5 10 Normal 0.0-0.8 Eos # 0.0 10 Normal 0.0-0.5 Baso # 0.0 10 Normal 0.0-0.2 CBC With Differential 12/05/2020 Patient Service [facility] [place], [place] [address] [phone] White Blood Count 3.4 10 Low 4.0-10.0 [...] 36.0-66.0 Lymph % 12.8 % Low 24.0-44.0 Moody % 13.7 % High 2.0-8.0 Eos % 1.2 % Normal 0.0-3.0 Baso % 0.6 % Normal 0.0-1.0 Immature Granulocyte % 0.3 % Normal 0-3.0 Nucleated Red Blood Cell % 0.0 % Normal 0-0 Neutrophils # 2.4 10 Normal 1.5-8.5 Lymph # 0.4 10 Low 1.5-5.0 Moody # 0.5 10 Normal 0.0-0.8 Eos # 0.0 10 Normal 0.0-0.5 Baso # 0.0 10 Normal 0.0-0.2 Laboratory test finding 12/05/2020 [place] [address] [phone] Ferritin 108 NG/ML Normal 8-252 Total Iron Binding Capacit 12/05/2020 [place] [address] [phone] Iron (Fe) 94 g/dL Normal 50-170 Total Iron Binding Capacity 350 g/dL Normal 250-450 Percent Saturation 26.9 % Normal 13.2-45.0 PT & Aptt 12/05/2020 [place] [address] [phone] Prothrombin Time 13.3 seconds Normal 12.5-14.3 Inr 0.99 Normal 39 Partial Thromboplastin Time 29.4 seconds Normal 24.2-38.5 PT & Aptt 11/25/2020 [place] [address] [phone] Prothrombin Time 16.4 seconds High 12.5-14.3 Inr 1.29 Normal 40 Partial Thromboplastin Time 33.4 seconds Normal 24.2-38.5 Complete Blood Count 11/25/2020 [place] [address] [phone] White Blood Count 4.4 10 Normal 4.0-10.0 [...] 0-0 Comprehensive Metabolic Profil 11/25/[address] [place] [address] [phone] Glucose, Fasting 110 mg/dL High 70-100 Blood [...] 1.2-2.2 Cardiac Marker Panel 11/25/2020 [place] [address] [phone] CPK Creatine Phosphokinase 60 U/L Normal 26-19 2 CK-MB Value Mass 1.3 NG/ML Normal <3.6 MB/CK Relative Index 2.17 Normal < Or =4 42 Troponin I < 0.02 NG/ML Normal < 0.10 43 Laboratory test finding 11/25/2020 [place] [address] [phone] NT-Pro BNP 1795 pg/mL High <450 Type & Screen -Incl Blood Type,Tye,AB SC 11/25/2020 [place] [address] [phone] Blood Type O POSITIVE Normal AB Screen [...] developed and its performance characteristics determined by [employer]. It has not been cleared or approved [...] cofactor activity; FVIII - factor VIII activity. INFORMATION RESOURCE CONSULTANT: For questions regarding panel interpretation, please contact Mikal Wasserman M.D. at [facility] at . DISCLAIMER These assessments and [...] (1) The National Heart, Lung and Blood [place]. The Diagnosis, Evaluation and Management of von Willebrand Disease. [place], MD: National Institutes of Health Publication 08-5832. 2007. Available at http://www.nhlbi.nih.gov/guidelines/vwd/. (2) Tayo MONTES et al. Am J Hematol. 2009; 84(6):366-370. (3) Pam M et al. Haemophilia. 2004;10(3):199-217. (4) Lety WOODRUFF et al. Haemophilia. 2004; 10(3):218-231. 7 TRANSFUSED PRODUCT: PACKED C ELLS COUNT: 2 8 Performed at: [facility] [id number] Blocking Machine Tender: Matt Mcdonnell MD, Phone: [phone] Performed at: [facility] [facility] [address] [place] [address] [address], [place], [place] [id number] Blocking Machine Tender: Gary Youngblood MD, Phone: [phone] Performed at: [address] [id number] Blocking Machine Tender: Teresa Nguyen MD, Phone: [phone] UNABLE TO PERFORM TEST DUE T [...] passenger travel. Testing and International Air Travel, cdc.gov/coronavirus/2019-ncov/travelers/fnvjser-nzi-xwdliy.html 09/01/2020 NOTE: The COVID-19 assay is under Emergency Use Authorization (EUA) by the U.S. Food and Drug Administration. [facility] and [facility] are designated as high complexity laboratories by the Clinical Laboratory Improvement Amendments of 1988 (CLIA) and are qualified to perform this test. Not Detected 12 TRANSFUSED PRODUCT: PACKED C ELLS COUNT: 3 13 THE CEA ASSAY IS PERFORMED O N THE [employer] BY CHEMILUMINESCENCE AND SHOULD NOT BE COMPARED [...] Little GFR Left ESRD GFR <15 on MATERIAL ENGINEER 15 Units are mL/min/1.73 m2 Chronic Kidney Disease Staging per NKF: Stage I & II GFR >=60 Normal to Mildly Decreased Stage III GFR 30-59 Moderately Decreased Stage IV GFR 15-29 Severely Decreased Stage V GFR <15 Very Little GFR Left ESRD GFR <15 on MATERIAL ENGINEER 16 Negative results do not prec [...] pathogens. DISCLAIMER: Testing was performed using the [facility] SARS-CoV-2 test. This test was developed and its performance characteristics determined by [facility]. This test has not been FDA cleared [...] Little GFR Left ESRD GFR <15 on MATERIAL ENGINEER 27 THE CEA ASSAY IS PERFORMED O N THE [employer] BY CHEMILUMINESCENCE AND SHOULD NOT BE COMPARED [...] Little GFR Left ESRD GFR <15 on MATERIAL ENGINEER 30 TRANSFUSED PRODUCT: PACKED C ELLS [...] Little GFR Left ESRD GFR <15 on MATERIAL ENGINEER 33 Units are mL/min/1.73 m2 Chronic Kidney Disease Staging per NKF: Stage I & II GFR >=60 Normal to Mildly Decreased Stage III GFR 30-59 Moderately Decreased Stage IV GFR 15-29 Severely Decreased Stage V GFR <15 Very Little GFR Left ESRD GFR <15 on MATERIAL ENGINEER 34 ASSAY INFORMATION: Real Time RT-PCR NOTE: The COVID-19 assay has been cleared by the U.S. Food and Drug Administration under the Emergency Use Authorization (EUA). 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 0.10-1.50 ng/ml Increased Risk for Adv erse Clinical Events. Evaluation of additional criterion and/or repeat testing in 2-6 hours is suggested to rule out myocardial damage. >= 1.50 ng/ml Indicative of Myocardial Injury. Procedures Date Code Description Status 03/28/2021 [id number] [place] W/I 7 Days Of DC, Comm W/I 2 Dys Completed 03/23/2021 [id number] Office/Outpatient Established Mo d MDM 30-39 Min Completed 03/23/2021 [id number] Diabetic Foot Exam Completed 01/25/2021 [id number] [place] W/I 7 Days Of DC, Comm W/I 2 Dys Completed 12/27/2020 [id number] Office/Outpatient Established Mo d MDM 30-39 Min Completed 12/19/2020 [id number] Office/Outpatient Established Mo d MDM 30-39 Min Completed 12/02/2020 [id number] [place] W/I 7 Days Of DC, [...] Visit 12/19/2020 2:15p Main Office Pleskach, Nadiya, [employer] E11.6 9 Type 2 diabetes mellitus with other specified complication E78.2 Mixed hyperlipidemia I10 Essential (primary) hyperten yara 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 C18.9 Malignant neoplasm of colon, unspecified I48.91 Unspecified atrial fibrillat ion Office Visit 12/02/2020 10:30a Main Office Pleskach, Nadiya, [employer] D64.9 Anemia, unspecified E11.69 Type 2 diabetes mellitus wit h other specified complication E78.2 Mixed hyperlipidemia I10 Essential (primary) hyperten yara 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 C18.9 Malignant neoplasm of colon, unspecified I48.91 Unspecified atrial fibrillat ion Assessments Date Code Description Provider 03/28/2021 D64.9 Anemia, unspecified Pleskach, Mo lly, [employer] 03/28/2021 K29.61 Other gastritis with bleeding Pl eskach, Nadiya, [employer] 03/23/2021 E11.69 Type 2 diabetes mellitus with ot her specified complication Pleskach, Nadiya, [employer] 03/23/2021 C18.9 Malignant neoplasm of colon, uns pecified Pleskach, Nadiya, [employer] SAL[employer] 03/23/2021 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 Pleskach Nadiya , [employer] SAL[employer] 03/23/2021 E78.2 Mixed hyperlipidemia Chayo Bryan, [employer] 03/23/2021 I10 Essential (primary) hypertension Pleskach, Nadiya, [employer] SAL[employer] 03/23/2021 I48.91 Unspecified atrial fibrillation Pleskach, Nadiya, [employer] 03/23/2021 D64.9 Anemia, unspecified Pleskach, Mo lly, [employer] 01/25/2021 D64.9 Anemia, unspecified Pleskach, Mo lly, [employer] 01/25/2021 K29.[address] gastritis with bleeding Pl eskach, Nadiya, [employer] 12/27/2020 E11.69 Type 2 diabetes mellitus with ot her specified complication Anitha Gamez M.D. 12/27/2020 C18.9 Malignant neoplasm of colon, uns pecified Anitha Gamez M.D. 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 12/27/2020 D64.9 Anemia, unspecified Angela Gamez M.D. 12/19/2020 E11.69 Type 2 diabetes mellitus with ot her specified complication Pleskach, Nadiya, [employer] 12/19/2020 E78.2 Mixed hyperlipidemia Pleskach, M jarocho, [employer] 12/19/2020 I10 Essential (primary) hypertension Pleskach, Nadiya, [employer] 12/19/2020 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 Pleskach, Nadiya , [employer] 12/19/2020 C18.9 Malignant neoplasm of colon, uns pecified Pleskach, Nadiya, [employer] 12/19/2020 I48.91 Unspecified atrial fibrillation Pleskach, Nadiya, [employer] 12/02/2020 D64.9 Anemia, unspecified Pleskach, Mo lly, [employer] 12/02/2020 E11.69 Type 2 diabetes mellitus with ot her specified complication Pleskach, Nadiya, [employer] 12/02/2020 E78.2 Mixed hyperlipidemia Pleskach, M jarocho, [employer] 12/02/2020 I10 Essential (primary) hypertension Pleskach, Nadiya, [employer] 12/02/2020 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 Pleskach, Nadiya , [employer] 12/02/2020 C18.9 Malignant neoplasm of colon, uns pecified Pleskach, Nadiya, [employer] 12/02/2020 I48.91 Unspecified atrial fibrillation Pleskach, Nadiya, [employer] Plan of Treatment Future Appointment(s):* 06/22/2021 3:30 pm - Nadiya Bryan, [employer] SAL[employer]ERSON at Main Office 03/28/2021 - Pleskach Nadiya, [employer]* D64.9 Anemia, unspecified* Comments:* following with hematology, [...]
--- OUTSIDE RECORDS SUMMARY | 2021-05-23 16:54 | CCD | Continuity of Care Document ---
Author Author Meron BRYAN KITCHEN ASSISTANT Organization Unknown Address [address] [place] [address] Phone [phone] Care Team Providers Care Od Grinder Operator Name Role Phone [facility] AUTM [phone] Niels Decker M.D. AUTM [phone] [facility] AUTM Jeff Cramer AUTM [phone] Problems Active Problems Provider Date Type 2 [...] 236units C18.9 Nadiya Bryan FNP 06/16/2020 Z93.2 Sabin Remover Wipes Misc use 3-4 wipes every 4 days and as needed when changing ostomy 2Box Z93.2 Nadiya Bryan FNP 06/16/2020 C18.9 Feren Adapt Ceraing change every 4-5 days and as needed ref #[id number] 20units Nadiya Bryan FNP 05/05/2020 Huron 2 Piece Ostomy Skin Barrier ref # [id number] márquez ge every 4-5 days and as needed 20units C18.9 Nadiya Bryan FNP 04/14/2020 Z93.2 Huron 2 Piece Drainable Ostomy Pouch ref # [id number] c hange every 4-5 days and as [...] CPT Code Status Date Vaccine Lot # [id number] Refused 04/17/2016 Pneumococcal Vaccine 57854 Refused 04/17/2016 Prevnar 13 17058 Refused 04/17/2016 Influenza Vaccination Vital Signs Date Vital Result Comment 03/28/2021 11:51am BP Systolic 113 mmHg BP Diastolic 83 mmHg Heart Rate 127 /min Body Temperature 98.0 F Respiratory Rate 18 /min Height 61.5 inches 5'1.50" Weight 114.38 lb O2 % BldC Oximetry 100 % Williams Body Weight 105 lb BMI (Body Mass Index) 21.3 kg/m2 03/23/2021 3:47pm BP Systolic 110 mmHg BP Diastolic 62 mmHg Heart Rate 64 /min Body Temperature 98.7 F Respiratory Rate 16 /min Height 61.5 inches 5'1.50" Weight 116.38 lb O2 % BldC Oximetry 99 % Williams Body Weight 105 lb BMI (Body Mass Index) 21.6 kg/m2 Results Test Acquired Date Facility Test Result H/L Range Note Type & Screen -Incl Blood Type,Tye,AB SC 05/17/2021 [facility] [place], [place] [id number] [phone] Blood Type O POSITIVE Normal AB Screen (Indirect Farooq)Vis NEGATIVE Normal CBC With Differential 05/17/2021 [place] [address] [phone] White Blood Count 4.6 10 Normal 4.0-10.0 [...] 36.0-66.0 Lymph % 5.7 % Low 24.0-44.0 Woodward % 11.3 % High 2.0-8.0 Eos % 1.7 % Normal 0.0-3.0 Baso % 0.4 % Normal 0.0-1.0 Immature Granulocyte % 0.4 % Normal 0-3.0 Nucleated Red Blood Cell % 0.0 % Normal 0-0 Neutrophils # 3.7 10 Normal 1.5-8.5 Lymph # 0.3 10 Low 1.5-5.0 Woodward # 0.5 10 Normal 0.0-0.8 Eos # 0.1 10 Normal 0.0-0.5 Baso # 0.0 10 Normal 0.0-0.2 Laboratory test finding 05/17/2021 [place] [address] [phone] Packed Cells TRANSFUSED PRODU <SEE NOTE> 1 CBC With Differential 05/10/2021 [place] [address] [phone] White Blood Count 5.2 10 Normal 4.0-10.0 [...] 36.0-66.0 Lymph % 4.8 % Low 24.0-44.0 Woodward % 8.7 % High 2.0-8.0 Eos % 1.2 % Normal 0.0-3.0 Baso % 0.4 % Normal 0.0-1.0 Immature Granulocyte % 0.6 % Normal 0-3.0 Nucleated Red Blood Cell % 0.0 % Normal 0-0 Neutrophils # 4.4 10 Normal 1.5-8.5 Lymph # 0.3 10 Low 1.5-5.0 Woodward # 0.5 10 Normal 0.0-0.8 Eos # 0.1 10 Normal 0.0-0.5 Baso # 0.0 10 Normal 0.0-0.2 CBC With Differential 05/08/2021 [place] [address] [phone] White Blood Count 4.8 10 Normal 4.0-10.0 [...] 36.0-66.0 Lymph % 5.2 % Low 24.0-44.0 Woodward % 11.2 % High 2.0-8.0 Eos % 1.4 % Normal 0.0-3.0 Baso % 0.4 % Normal 0.0-1.0 Immature Granulocyte % 0.4 % Normal 0-3.0 Nucleated Red Blood Cell % 0.0 % Normal 0-0 Neutrophils # 3.9 10 Normal 1.5-8.5 Lymph # 0.3 10 Low 1.5-5.0 Woodward # 0.5 10 Normal 0.0-0.8 Eos # 0.1 10 Normal 0.0-0.5 Baso # 0.0 10 Normal 0.0-0.2 Type & Screen -Incl Blood Type,Tye,AB SC 05/08/2021 [place] [address] [phone] Blood Type O POSITIVE Normal AB Screen (Indirect Farooq)Vis NEGATIVE Normal Laboratory test finding 05/08/2021 [place] [address] [phone] Packed Cells TRANSFUSED PRODU <SEE NOTE> 2 Occult Blood 05/08/2021 [place] [address] [phone] Occult Blood OCCULT BLOOD 1 <SEE NOTE> Abnormal 3 Factor VIII Panel 05/05/2021 [place] [address] [phone] F8 Activity For F8 Panel 214 % High 56-140 4 F8 Antigen For F8 Panel 115 % Normal 50-200 5 F8 Activity vWB For F8 Panel 71 % Normal 50-200 Interpretation: Note Normal . 6 Laboratory test finding 05/05/2021 [place] [address] [phone] Packed Cells TRANSFUSED PRODU <SEE NOTE> 7 Type & Screen -Incl Blood Type,Tye,AB SC 05/05/2021 [place] [address] [phone] Blood Type O POSITIVE Normal AB Screen (Indirect Farooq)Vis NEGATIVE Normal CBC With Differential 05/05/2021 [place] [address] [phone] White Blood Count 5.1 10 Normal 4.0-10.0 [...] 36.0-66.0 Lymph % 6.3 % Low 24.0-44.0 Woodward % 11.5 % High 2.0-8.0 Eos % 0.8 % Normal 0.0-3.0 Baso % 0.4 % Normal 0.0-1.0 Immature Granulocyte % 0.6 % Normal 0-3.0 Nucleated Red Blood Cell % 0.0 % Normal 0-0 Neutrophils # 4.1 10 Normal 1.5-8.5 Lymph # 0.3 10 Low 1.5-5.0 Woodward # 0.6 10 Normal 0.0-0.8 Eos # 0.0 10 Normal 0.0-0.5 Baso # 0.0 10 Normal 0.0-0.2 Laboratory test finding 05/05/2021 [place] [address] [phone] LDH Lactate Dehydrogenase 128 U/L Normal 84-246 Haptoglobin 214 mg/dL Normal 41-333 8 Platelet Function Analysis 05/05/2021 Patient Servi ce [place] [id number] [phone] Collagen Epinephrine TNP seconds Normal 74-162 9 Laboratory test finding 05/05/2021 [place] [address] [phone] Partial Thromboplastin Time 24.9 seconds Low 25 .9-37.0 Prothrombin Time/Inr 05/05/2021 [place] [address] [phone] Prothrombin Time 14.0 seconds Normal 12.7-14.5 Inr 1.04 Normal 10 Retic (Reticulocyte Count) 05/05/2021 [place] [address] [phone] Reticulocyte % 5.9 % High 0.5-1.5 Reticulocyte # 119.8 10 High 17-77 Retic Hemoglobin Equivalent 30.7 pg Normal 24-36 CBC With Differential 04/27/2021 [place] [address] [phone] White Blood Count 4.2 10 Normal 4.0-10.0 [...] 36.0-66.0 Lymph % 8.1 % Low 24.0-44.0 Woodward % 12.8 % High 2.0-8.0 Eos % 1.0 % Normal 0.0-3.0 Baso % 0.2 % Normal 0.0-1.0 Immature Granulocyte % 0.5 % Normal 0-3.0 Nucleated Red Blood Cell % 0.0 % Normal 0-0 Neutrophils # 3.3 10 Normal 1.5-8.5 Lymph # 0.3 10 Low 1.5-5.0 Woodward # 0.5 10 Normal 0.0-0.8 Eos # 0.0 10 Normal 0.0-0.5 Baso # 0.0 10 Normal 0.0-0.2 CBC With Differential 04/20/2021 [place] [address] [phone] White Blood Count 3.9 10 Low 4.0-10.0 [...] 36.0-66.0 Lymph % 8.8 % Low 24.0-44.0 Woodward % 11.9 % High 2.0-8.0 Eos % 1.0 % Normal 0.0-3.0 Baso % 0.5 % Normal 0.0-1.0 Immature Granulocyte % 0.8 % Normal 0-3.0 Nucleated Red Blood Cell % 0.0 % Normal 0-0 Neutrophils # 3.0 10 Normal 1.5-8.5 Lymph # 0.3 10 Low 1.5-5.0 Woodward # 0.5 10 Normal 0.0-0.8 Eos # 0.0 10 Normal 0.0-0.5 Baso # 0.0 10 Normal 0.0-0.2 CBC With Differential 04/12/2021 [place] [address] [phone] White Blood Count 4.6 10 Normal 4.0-10.0 [...] 36.0-66.0 Lymph % 6.6 % Low 24.0-44.0 Woodward % 9.4 % High 2.0-8.0 Eos % 0.9 % Normal 0.0-3.0 Baso % 0.2 % Normal 0.0-1.0 Immature Granulocyte % 0.4 % Normal 0-3.0 Nucleated Red Blood Cell % 0.0 % Normal 0-0 Neutrophils # 3.8 10 Normal 1.5-8.5 Lymph # 0.3 10 Low 1.5-5.0 Woodward # 0.4 10 Normal 0.0-0.8 Eos # 0.0 10 Normal 0.0-0.5 Baso # 0.0 10 Normal 0.0-0.2 Coronavirus 2019 Nasopharygeal 04/10/2021 [place] [address] [phone] Coronavirus 2019 Nasopharygeal ASSAY INFORMATIO <SEE N OTE> 11 Total Iron Binding Capacit 04/07/2021 [place] [address] [phone] Iron (Fe) 48 g/dL Low 50-170 Total Iron Binding Capacity 353 g/dL Normal 250-450 Percent Saturation 13.6 % Normal 13.2-45.0 Type & Screen -Incl Blood Type,Tye,AB SC 04/07/2021 [facility] [place], [place] [id number] [phone] Blood Type O POSITIVE Normal AB Screen (Indirect Farooq)Vis NEGATIVE Normal Laboratory test finding 04/07/2021 [place] [address] [phone] Packed Cells TRANSFUSED PRODU <SEE NOTE> 12 Laboratory test finding 04/07/2021 [place] [address] [phone] Carcinoembryonic Antigen < 0.5 NG/ML Normal <2.5 13 Ferritin 66 NG/ML Normal 8-252 Comprehensive Metabolic Profil 04/07/2021 [place] [address] [phone] Glucose, Fasting 184 mg/dL High 70-100 Blood [...] With Differential 04/07/2021 [place] [address] [phone] White Blood Count 3.4 10 Low 4.0-10.0 [...] 36.0-66.0 Lymph % 8.5 % Low 24.0-44.0 Woodward % 10.9 % High 2.0-8.0 Eos % 0.9 % Normal 0.0-3.0 Baso % 0.6 % Normal 0.0-1.0 Immature Granulocyte % 0.6 % Normal 0-3.0 Nucleated Red Blood Cell % 0.0 % Normal 0-0 Neutrophils # 2.7 10 Normal 1.5-8.5 Lymph # 0.3 10 Low 1.5-5.0 Woodward # 0.4 10 Normal 0.0-0.8 Eos # 0.0 10 Normal 0.0-0.5 Baso # 0.0 10 Normal 0.0-0.2 Comprehensive Metabolic Profil 03/24/2021 [place] [address] [phone] Glucose, Fasting 96 mg/dL Normal 70-100 Blood [...] A/B RSV Covid Amp 03/24/2021 [place] [address] [phone] Influenza A Amplification NEGATIVE Normal Negati ve 16 Influenza B Amplification NEGATIVE Normal Negative 17 RSV Amplification NEGATIVE Normal Negative 18 Sars Covid-19 Amplification NEGATIVE Normal Negative 19 Laboratory test finding 03/24/2021 [place] [address] [phone] Packed Cells TRANSFUSED PRODU <SEE NOTE> 20 CBC With Differential 03/24/2021 [place] [address] [phone] White Blood Count 4.6 10 Normal 4.0-10.0 [...] 36.0-66.0 Lymph % 6.2 % Low 24.0-44.0 Woodward % 11.4 % High 2.0-8.0 Eos % 0.4 % Normal 0.0-3.0 Baso % 0.4 % Normal 0.0-1.0 Immature Granulocyte % 0.4 % Normal 0-3.0 Nucleated Red Blood Cell % 0.7 % High 0-0 Neutrophils # 3.7 10 Normal 1.5-8.5 Lymph # 0.3 10 Low 1.5-5.0 Woodward # 0.5 10 Normal 0.0-0.8 Eos # 0.0 10 Normal 0.0-0.5 Baso # 0.0 10 Normal 0.0-0.2 Hemoglobin A1c 03/17/2021 [facility] [address] [place] [address] [phone] Hemoglobin A1c 4.8 % 4.8-5.6 21 Albumin/Creatinine Ratio, Random Urine 03/17/2021 [facility] [address] [place] [address] [phone] Creatinine, Urine 120.2 mg/dL Not Estab. Albumin, Urine 20.1 ug/mL Not Estab. Alb/Creat Ratio 17 mg/gcreat 0-29 22 Lipid Panel 03/17/2021 [facility] [address] [place], [place] [address] [phone] Cholesterol, Total 123 mg/dL 100-199 Triglycerides 141 mg/dL 0-149 HDL Cholesterol 37 mg/dL Low >39 VLDL Cholesterol Mark 25 mg/dL 5-40 LDL Chol Calc ([facility]) 61 mg/dL 0-99 Comment: TNP Metabolic Panel (14), Comprehensive 03/17/2021 [facility] [address] [place], [place] [address] [phone] Calcium 9.5 mg/dL 8.7-10.3 Glucose 81 mg/dL [...] CBC With Differential 03/14/2021 [facility] [place] [address] [phone] White Blood Count 4.0 10 Normal 4.0-10.0 [...] 36.0-66.0 Lymph % 6.8 % Low 24.0-44.0 Woodward % 9.3 % High 2.0-8.0 Eos % 1.0 % Normal 0.0-3.0 Baso % 0.8 % Normal 0.0-1.0 Immature Granulocyte % 0.3 % Normal 0-3.0 Nucleated Red Blood Cell % 0.0 % Normal 0-0 Neutrophils # 3.3 10 Normal 1.5-8.5 Lymph # 0.3 10 Low 1.5-5.0 Woodward # 0.4 10 Normal 0.0-0.8 Eos # 0.0 10 Normal 0.0-0.5 Baso # 0.0 10 Normal 0.0-0.2 Type & Screen -Incl Blood Type,Tye,AB SC 03/14/2021 [place] [address] [phone] Blood Type O POSITIVE Normal AB Screen (Indirect Farooq)Vis NEGATIVE Normal Laboratory test finding 03/14/2021 [place] [address] [phone] Packed Cells TRANSFUSED PRODU <SEE NOTE> 25 CBC With Differential 03/10/2021 [place] [address] [phone] White Blood Count 3.4 10 Low 4.0-10.0 [...] 36.0-66.0 Lymph % 7.6 % Low 24.0-44.0 Woodward % 12.9 % High 2.0-8.0 Eos % 1.2 % Normal 0.0-3.0 Baso % 0.6 % Normal 0.0-1.0 Immature Granulocyte % 0.3 % Normal 0-3.0 Nucleated Red Blood Cell % 0.0 % Normal 0-0 Neutrophils # 2.6 10 Normal 1.5-8.5 Lymph # 0.3 10 Low 1.5-5.0 Woodward # 0.4 10 Normal 0.0-0.8 Eos # 0.0 10 Normal 0.0-0.5 Baso # 0.0 10 Normal 0.0-0.2 Comprehensive Metabolic Profil 03/10/2021 [place] [address] [phone] Glucose, Fasting 166 mg/dL High 70-100 Blood [...] 1.2-2.2 Total Iron Binding Capacit 03/10/2021 [place] [address] [phone] Iron (Fe) 72 g/dL Normal 50-170 Total Iron Binding Capacity 352 g/dL Normal 250-450 Percent Saturation 20.5 % Normal 13.2-45.0 Laboratory test finding 03/10/2021 [place] [address] [phone] Carcinoembryonic Antigen < 0.5 NG/ML Normal <2.5 27 Ferritin 492 NG/ML High 8-252 Laboratory test finding 02/28/2021 [place] [address] [phone] Packed Cells TRANSFUSED PRODU <SEE NOTE> 28 Type & Screen -Incl Blood Type,Tye,AB SC 02/28/2021 [place] [address] [phone] Blood Type O POSITIVE Normal AB Screen (Indirect Farooq)Vis NEGATIVE Normal Laboratory test finding 02/27/2021 Patient Service [place] [address]53 [phone] Blood Urea Nitrogen 26 mg/dL High 7-18 Creatinine With GFR 02/27/2021 [place] [address] [phone] Creatinine For GFR 0.76 mg/dL Normal 0.55-1.30 Glomerular Filtration Rate > 60.0 Normal >32 2 9 Total Iron Binding Capacit 02/27/2021 [place] [address] [phone] Iron (Fe) 79 g/dL Normal 50-170 Total Iron Binding Capacity 384 g/dL Normal 250-450 Percent Saturation 20.6 % Normal 13.2-45.0 Laboratory test finding 02/27/2021 Patient Service [place] [address]9530 [phone] Ferritin 1039 NG/ML High 8-252 CBC With Differential 02/27/2021 [place] [address] [phone] White Blood Count 6.0 10 Normal 4.0-10.0 [...] 36.0-66.0 Lymph % 4.7 % Low 24.0-44.0 Woodward % 11.6 % High 2.0-8.0 Eos % 0.5 % Normal 0.0-3.0 Baso % 0.3 % Normal 0.0-1.0 Immature Granulocyte % 0.8 % Normal 0-3.0 Nucleated Red Blood Cell % 0.3 % High 0-0 Neutrophils # 4.9 10 Normal 1.5-8.5 Lymph # 0.3 10 Low 1.5-5.0 Woodward # 0.7 10 Normal 0.0-0.8 Eos # 0.0 10 Normal 0.0-0.5 Baso # 0.0 10 Normal 0.0-0.2 Laboratory test finding 02/10/2021 [place] [address] [phone] Packed Cells TRANSFUSED PRODU <SEE NOTE> 30 Type & Screen -Incl Blood Type,Tye,AB SC 02/10/2021 [place] [address] [phone] Blood Type O POSITIVE Normal AB Screen (Indirect Farooq)Vis NEGATIVE Normal CBC With Differential 02/09/2021 [place] [address] [phone] White Blood Count 3.9 10 Low 4.0-10.0 [...] 36.0-66.0 Lymph % 7.2 % Low 24.0-44.0 Woodward % 10.0 % High 2.0-8.0 Eos % 1.0 % Normal 0.0-3.0 Baso % 0.5 % Normal 0.0-1.0 Immature Granulocyte % 0.5 % Normal 0-3.0 Nucleated Red Blood Cell % 0.0 % Normal 0-0 Neutrophils # 3.1 10 Normal 1.5-8.5 Lymph # 0.3 10 Low 1.5-5.0 Woodward # 0.4 10 Normal 0.0-0.8 Eos # 0.0 10 Normal 0.0-0.5 Baso # 0.0 10 Normal 0.0-0.2 Total Iron Binding Capacit 01/27/2021 [place] [address] [phone] Iron (Fe) 59 g/dL Normal 50-170 Total Iron Binding Capacity 397 g/dL Normal 250-450 Percent Saturation 14.9 % Normal 13.2-45.0 Laboratory test finding 01/27/2021 [place] [address] [phone] Ferritin 39 NG/ML Normal 8-252 Carcinoembryonic Antigen 0.5 NG/ML Normal <2.5 31 Comprehensive Metabolic Profil 01/27/2021 [facility] [place] [address] [phone] Glucose, Fasting 59 mg/dL Low 70-100 Blood [...] 1.2-2.2 CBC With Differential 01/27/2021 [place] [address] [phone] White Blood Count 4.2 10 Normal 4.0-10.0 [...] 36.0-66.0 Lymph % 13.6 % Low 24.0-44.0 Woodward % 14.6 % High 2.0-8.0 Eos % 1.4 % Normal 0.0-3.0 Baso % 0.5 % Normal 0.0-1.0 Immature Granulocyte % 0.5 % Normal 0-3.0 Nucleated Red Blood Cell % 0.0 % Normal 0-0 Neutrophils # 2.9 10 Normal 1.5-8.5 Lymph # 0.6 10 Low 1.5-5.0 Woodward # 0.6 10 Normal 0.0-0.8 Eos # 0.1 10 Normal 0.0-0.5 Baso # 0.0 10 Normal 0.0-0.2 Complete Blood Count 01/20/2021 [place] [address] [phone] White Blood Count 3.3 10 Low 4.0-10.0 [...] 0-0 Laboratory test finding 01/20/2021 [place] [address] [phone] Blood Urea Nitrogen 21 mg/dL High 7-18 Creatinine With GFR 01/20/2021 [place] [address] [phone] Creatinine For GFR 0.69 mg/dL Normal 0.55-1.30 Glomerular Filtration Rate > 60.0 Normal >32 3 3 Type & Screen -Incl Blood Type,Tye,AB SC 01/20/2021 [place] [address] [phone] Blood Type O POSITIVE Normal AB Screen (Indirect Farooq)Vis NEGATIVE Normal Coronavirus 2019 Nasopharygeal 01/16/2021 [place] [address] [phone] Coronavirus 2019 Nasopharygeal ASSAY INFORMATIO <SEE N OTE> 34 Type & Screen -Incl Blood Type,Tye,AB SC 01/03/2021 [place] [address] [phone] Blood Type O POSITIVE Normal AB Screen (Indirect Farooq)Vis NEGATIVE Normal Laboratory test finding 01/03/2021 [place] [address] [phone] Packed Cells TRANSFUSED PRODU <SEE NOTE> 35 CBC With Differential 01/02/2021 [place] [address] [phone] White Blood Count 4.3 10 Normal 4.0-10.0 [...] 36.0-66.0 Lymph % 10.7 % Low 24.0-44.0 Woodward % 13.1 % High 2.0-8.0 Eos % 0.7 % Normal 0.0-3.0 Baso % 0.5 % Normal 0.0-1.0 Immature Granulocyte % 0.5 % Normal 0-3.0 Nucleated Red Blood Cell % 0.0 % Normal 0-0 Neutrophils # 3.2 10 Normal 1.5-8.5 Lymph # 0.5 10 Low 1.5-5.0 Woodward # 0.6 10 Normal 0.0-0.8 Eos # 0.0 10 Normal 0.0-0.5 Baso # 0.0 10 Normal 0.0-0.2 Laboratory test finding 01/02/2021 Patient [facility] [place], [place] [address] [phone] Thyroid Stimulating Hormone 1.660 uIU/ML Normal 0. 358-3.740 Free T4 0.87 ng/dL Normal 0.76-1.46 Ferritin 58 NG/ML Normal 8-252 Comprehensive Metabolic Profil 01/02/2021 Patient [place], [place] [address] [phone] Glucose, Fasting 155 mg/dL High 70-100 Blood [...] Binding Capacit 01/02/2021 [place] [address] [phone] Iron (Fe) 55 g/dL Normal 50-170 Total Iron Binding Capacity 398 g/dL Normal 250-450 Percent Saturation 13.8 % Normal 13.2-45.0 Laboratory test finding 12/23/2020 [place] [address] [phone] iSTAT Troponin 0.01 NG/ML Normal 0.00-0.08 Istat Chem8+ Panel 12/23/2020 [place] [address] [phone] iSTAT HCT 33.0 % Low 38.0-51.0 iSTAT Glucose 94 mg/dL Normal 70-105 iSTAT Sodium 138 mEq/L Normal 136-145 iSTAT Potassium 4.2 mEq/L Normal 3.5-5.1 iSTAT CA++ 5.0 mg/dL Normal 4.5-5.3 iSTAT Chloride 102 mEq/L Normal 98-109 iSTAT Co2 27.0 MM/L Normal 23.0-27.0 iSTAT BUN 20 mg/dL Normal 8-26 iSTAT Creatinine 0.7 mg/dL Normal 0.6-1.3 CBC With Differential 12/23/2020 [place] [address] [phone] White Blood Count 4.5 10 Normal 4.0-10.0 [...] 36.0-66.0 Lymph % 9.7 % Low 24.0-44.0 Woodward % 11.9 % High 2.0-8.0 Eos % 0.9 % Normal 0.0-3.0 Baso % 0.4 % Normal 0.0-1.0 Immature Granulocyte % 0.4 % Normal 0-3.0 Nucleated Red Blood Cell % 0.0 % Normal 0-0 Neutrophils # 3.5 10 Normal 1.5-8.5 Lymph # 0.4 10 Low 1.5-5.0 Woodward # 0.5 10 Normal 0.0-0.8 Eos # 0.0 10 Normal 0.0-0.5 Baso # 0.0 10 Normal 0.0-0.2 PT & Aptt 12/23/2020 [place] [address] [phone] Prothrombin Time 13.3 seconds Normal 12.5-14.3 Inr 0.99 Normal 37 Partial Thromboplastin Time 29.5 seconds Normal 24.2-38.5 Liver Profile 12/23/2020 [place] [address] [phone] Ast/Sgot 13 U/L Normal 7-37 Alt/SGPT 14 U/L Normal 12-78 Alkaline Phosphatase 95 U/L Normal 45-117 Bilirubin,Total 0.9 mg/dL Normal 0.2-1.0 Bilirubin,Direct 0.3 mg/dL High 0.0-0.2 Total Protein 6.5 GM/DL Normal 6.4-8.2 Albumin 3.4 GM/DL Normal 3.2-5.2 Albumin/Globulin Ratio 1.1 Low 1.2-2.2 Laboratory test finding 12/23/2020 [place] [address] [phone] Lipase 73 U/L Normal 73-393 Lactic Acid Sepsis Protocol 0.8 mmol/L Normal 0.4-2.0 38 CBC With Differential 12/19/2020 [place] [address] [phone] White Blood Count 3.8 10 Low 4.0-10.0 [...] 36.0-66.0 Lymph % 11.7 % Low 24.0-44.0 Woodward % 11.9 % High 2.0-8.0 Eos % 1.1 % Normal 0.0-3.0 Baso % 0.3 % Normal 0.0-1.0 Immature Granulocyte % 0.5 % Normal 0-3.0 Nucleated Red Blood Cell % 0.0 % Normal 0-0 Neutrophils # 2.8 10 Normal 1.5-8.5 Lymph # 0.4 10 Low 1.5-5.0 Woodward # 0.5 10 Normal 0.0-0.8 Eos # 0.0 10 Normal 0.0-0.5 Baso # 0.0 10 Normal 0.0-0.2 CBC With Differential 12/05/2020 Patient Service [place], [place] [address] [phone] White Blood Count 3.4 10 Low 4.0-10.0 [...] 36.0-66.0 Lymph % 12.8 % Low 24.0-44.0 Woodward % 13.7 % High 2.0-8.0 Eos % 1.2 % Normal 0.0-3.0 Baso % 0.6 % Normal 0.0-1.0 Immature Granulocyte % 0.3 % Normal 0-3.0 Nucleated Red Blood Cell % 0.0 % Normal 0-0 Neutrophils # 2.4 10 Normal 1.5-8.5 Lymph # 0.4 10 Low 1.5-5.0 Woodward # 0.5 10 Normal 0.0-0.8 Eos # 0.0 10 Normal 0.0-0.5 Baso # 0.0 10 Normal 0.0-0.2 Laboratory test finding 12/05/2020 [place] [address] [phone] Ferritin 108 NG/ML Normal 8-252 Total Iron Binding Capacit 12/05/2020 [place] [address] [phone] Iron (Fe) 94 g/dL Normal 50-170 Total Iron Binding Capacity 350 g/dL Normal 250-450 Percent Saturation 26.9 % Normal 13.2-45.0 PT & Aptt 12/05/2020 [place] [address] [phone] Prothrombin Time 13.3 seconds Normal 12.5-14.3 Inr 0.99 Normal 39 Partial Thromboplastin Time 29.4 seconds Normal 24.2-38.5 PT & Aptt 11/25/2020 [place] [address] [phone] Prothrombin Time 16.4 seconds High 12.5-14.3 Inr 1.29 Normal 40 Partial Thromboplastin Time 33.4 seconds Normal 24.2-38.5 Complete Blood Count 11/25/2020 [place] [address] [phone] White Blood Count 4.4 10 Normal 4.0-10.0 [...] 0-0 Comprehensive Metabolic Profil 11/25/2020 [place] [address] [phone] Glucose, Fasting 110 mg/dL High 70-100 Blood [...] 1.2-2.2 Cardiac Marker Panel 11/25/2020 [place] [address] [phone] CPK Creatine Phosphokinase 60 U/L Normal 26-19 2 CK-MB Value Mass 1.3 NG/ML Normal <3.6 MB/CK Relative Index 2.17 Normal < Or =4 42 Troponin I < 0.02 NG/ML Normal < 0.10 43 Laboratory test finding 11/25/2020 [place] [address] [phone] NT-Pro BNP 1795 pg/mL High <450 Type & Screen -Incl Blood Type,Tye,AB SC 11/25/2020 [place] [address] [phone] Blood Type O POSITIVE Normal AB Screen [...] developed and its performance characteristics determined by [employer]. It has not been cleared or approved [...] cofactor activity; FVIII - factor VIII activity. CLIENT DEVELOPMENT MANAGER: For questions regarding panel interpretation, please contact Mikal Wasserman M.D. at [facility] at . DISCLAIMER These assessments and [...] (1) The National Heart, Lung and Blood [place]. The Diagnosis, Evaluation and Management of von Willebrand Disease. [place], [place]: National Institutes of Health Publication 08-5832. 2007. Available at http://www.nhlbi.nih.gov/guidelines/vwd/. (2) Tayo MONTES et al. Am J Hematol. 2009; 84(6):366-370. (3) Pam M et al. Haemophilia. 2004;10(3):199-217. (4) Lety WOODRUFF et al. Haemophilia. 2004; 10(3):218-231. 7 TRANSFUSED PRODUCT: PACKED C ELLS COUNT: 2 8 Performed at: [facility] [id number] Orthoptist: Matt Mcdonnell MD, Phone: [phone] Performed at: [facility] [address] [place] [address] [address], [place], [place] [id number] Orthoptist: Gary Youngblood MD, Phone: [phone] Performed at: [address] [id number] Orthoptist: Teresa Nguyen MD, Phone: [phone] UNABLE TO PERFORM TEST DUE T [...] passenger travel. Testing and International Air Travel, cdc.gov/coronavirus/2019-ncov/travelers/ttwbcwi-zgq-pmyaqz.html 09/01/2020 NOTE: The COVID-19 assay is under Emergency Use Authorization (EUA) by the U.S. Food and Drug Administration. [facility] and [facility] are designated as high complexity laboratories by the Clinical Laboratory Improvement Amendments of 1988 (CLIA) and are qualified to perform this test. Not Detected 12 TRANSFUSED PRODUCT: PACKED C ELLS COUNT: 3 13 [facility] IS PERFORMED O N THE [employer] BY CHEMILUMINESCENCE AND SHOULD NOT BE COMPARED [...] Little GFR Left ESRD GFR <15 on TOOL TURRET LATHE SET UP OPERATOR 15 Units are mL/min/1.73 m2 Chronic Kidney Disease Staging per NKF: Stage I & II GFR >=60 Normal to Mildly Decreased Stage III GFR 30-59 Moderately Decreased Stage IV GFR 15-29 Severely Decreased Stage V GFR <15 Very Little GFR Left ESRD GFR <15 on TOOL TURRET LATHE SET UP OPERATOR 16 Negative results do not prec [...] pathogens. DISCLAIMER: Testing was performed using the [facility] SARS-CoV-2 test. This test was developed and its performance characteristics determined by [facility]. This test has not been FDA cleared [...] Little GFR Left ESRD GFR <15 on TOOL TURRET LATHE SET UP OPERATOR 27 THE CEA ASSAY IS PERFORMED O N THE [employer] BY CHEMILUMINESCENCE AND SHOULD NOT BE COMPARED [...] Little GFR Left ESRD GFR <15 on TOOL TURRET LATHE SET UP OPERATOR 30 TRANSFUSED PRODUCT: PACKED C ELLS [...] Little GFR Left ESRD GFR <15 on TOOL TURRET LATHE SET UP OPERATOR 33 Units are mL/min/1.73 m2 Chronic Kidney Disease Staging per NKF: Stage I & II GFR >=60 Normal to Mildly Decreased Stage III GFR 30-59 Moderately Decreased Stage IV GFR 15-29 Severely Decreased Stage V GFR <15 Very Little GFR Left ESRD GFR <15 on TOOL TURRET LATHE SET UP OPERATOR 34 ASSAY INFORMATION: Real Time RT-PCR NOTE: The COVID-19 assay has been cleared by the U.S. Food and Drug Administration under the Emergency Use Authorization (EUA). 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 0.10-1.50 ng/ml Increased Risk for Adv erse Clinical Events. Evaluation of additional criterion and/or repeat testing in 2-6 hours is suggested to rule out myocardial damage. >= 1.50 ng/ml Indicative of Myocardial Injury. Procedures Date Code Description Status 03/28/2021 [id number] [place] W/I 7 Days Of DC, Comm W/I 2 Dys Completed 03/23/2021 [id number] Office/Outpatient Established Mo d MDM 30-39 Min Completed 03/23/2021 [id number] Diabetic Foot Exam Completed 01/25/2021 [id number] [place] W/I 7 Days Of DC, Comm W/I 2 Dys Completed 12/27/2020 [id number] Office/Outpatient Established Mo d MDM 30-39 Min Completed 12/19/2020 [id number] Office/Outpatient Established Mo d MDM 30-39 Min Completed 12/02/2020 [id number] [place] W/I 7 Days Of DC, [...] Visit 12/19/2020 2:15p Main Office Pleskach, Nadiya, KITCHEN ASSISTANT E11.6 9 Type 2 diabetes mellitus with other specified complication E78.2 Mixed hyperlipidemia I10 Essential (primary) hyperten yara 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 C18.9 Malignant neoplasm of colon, unspecified I48.91 Unspecified atrial fibrillat ion Office Visit 12/02/2020 10:30a Main Office Pleskach, Nadiya, KITCHEN ASSISTANT D64.9 Anemia, unspecified E11.69 Type 2 diabetes mellitus wit h other specified complication E78.2 Mixed hyperlipidemia I10 Essential (primary) hyperten yara 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 C18.9 Malignant neoplasm of colon, unspecified I48.91 Unspecified atrial fibrillat ion Assessments Date Code Description Provider 03/28/2021 D64.9 Anemia, unspecified Pleskach, Mo lly, KITCHEN ASSISTANT 03/28/2021 K29.61 Other gastritis with bleeding Pl eskach, Nadiya, KITCHEN ASSISTANT 03/23/2021 E11.69 Type 2 diabetes mellitus with ot her specified complication Pleskach, Nadiya, KITCHEN ASSISTANT 03/23/2021 C18.9 Malignant neoplasm of colon, uns pecified Pleskach, Nadiya, KITCHEN ASSISTANT 03/23/2021 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 Pleskach Nadiya , KITCHEN ASSISTANT 03/23/2021 E78.2 Mixed hyperlipidemia Chayo Bryan, KITCHEN ASSISTANT 03/23/2021 I10 Essential (primary) hypertension Pleskach, Nadiya, KITCHEN ASSISTANT 03/23/2021 I48.91 Unspecified atrial fibrillation Pleskach, Nadiya, KITCHEN ASSISTANT 03/23/2021 D64.9 Anemia, unspecified Pleskach, Mo lly, KITCHEN ASSISTANT 01/25/2021 D64.9 Anemia, unspecified Pleskach, Mo lly, KITCHEN ASSISTANT 01/25/2021 K29.61 Other gastritis with bleeding Pl eskach, Nadiya, KITCHEN ASSISTANT 12/27/2020 E11.69 Type 2 diabetes mellitus with ot her specified complication Anitha Gamez M.D. 12/27/2020 C18.9 Malignant neoplasm of colon, uns pecified Anitha Gamez M.D. 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 12/27/2020 D64.9 Anemia, unspecified Angela Gamez M.D. 12/19/2020 E11.69 Type 2 diabetes mellitus with ot her specified complication Pleskach, Nadiya, KITCHEN ASSISTANT 12/19/2020 E78.2 Mixed hyperlipidemia Pleskach, M jarocho, KITCHEN ASSISTANT 12/19/2020 I10 Essential (primary) hypertension Pleskach, Nadiya, KITCHEN ASSISTANT 12/19/2020 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 Pleskach, Nadiya , KITCHEN ASSISTANT 12/19/2020 C18.9 Malignant neoplasm of colon, uns pecified Pleskach, Nadiya, KITCHEN ASSISTANT 12/19/2020 I48.91 Unspecified atrial fibrillation Pleskach, Nadiya, KITCHEN ASSISTANT 12/02/2020 D64.9 Anemia, unspecified Pleskach, Mo lly, KITCHEN ASSISTANT 12/02/2020 E11.69 Type 2 diabetes mellitus with ot her specified complication Pleskach, Nadiya, KITCHEN ASSISTANT 12/02/2020 E78.2 Mixed hyperlipidemia Pleskach, M jarocho, KITCHEN ASSISTANT 12/02/2020 I10 Essential (primary) hypertension Pleskach, Nadiya, KITCHEN ASSISTANT 12/02/2020 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 Pleskach, Nadiya , KITCHEN ASSISTANT 12/02/2020 C18.9 Malignant neoplasm of colon, uns pecified Pleskach, Nadiya, KITCHEN ASSISTANT 12/02/2020 I48.91 Unspecified atrial fibrillation Pleskach, Nadiya, KITCHEN ASSISTANT Plan of Treatment Future Appointment(s):* 06/22/2021 3:30 pm - Nadiya Bryan, KITCHEN ASSISTANT at Main Office 03/28/2021 - Pleskach Nadiya, KITCHEN ASSISTANT* D64.9 Anemia, unspecified* Comments:* following with hematology, [...]
--- OUTSIDE RECORDS SUMMARY | 2021-05-23 16:54 | CCD | Continuity of Care Document ---
Author Author Meron BRYAN MODELING DIRECTOR Organization Unknown Address [address] [place] [address] Phone [phone] Care Team Providers Care Plan Consultant Name Role Phone [facility] - [facility] AUTM [phone] Niels Decker M.D. AUTM [phone] [facility] AUTM Jeff Cramer AUTM [phone] Problems Active Problems Provider Date Type 2 [...] 236units C18.9 Nadiya Bryan FNP 06/16/2020 Z93.2 [place] Remover Wipes Misc use 3-4 wipes every 4 days and as needed when changing ostomy 2Box Z93.2 Nadiya Bryan FNP 06/16/2020 C18.9 [place] [employer] Ceraing change every 4-5 days and as needed ref #[id number] 20units Nadiya Bryan FNP 05/05/2020 [place] 2 Piece Ostomy Skin Barrier ref # [id number] márquez ge every 4-5 days and as needed 20units C18.9 Nadiya Bryan FNP 04/14/2020 Z93.2 [place] 2 Piece Drainable Ostomy Pouch ref # [id number] c hange every 4-5 days and as [...] CPT Code Status Date Vaccine Lot # [id number] Refused 04/17/2016 Pneumococcal Vaccine 83528 Refused 04/17/2016 Prevnar 13 [id number] Refused 04/17/2016 Influenza Vaccination Vital Signs Date Vital Result Comment 03/28/2021 11:51am BP Systolic 113 mmHg BP Diastolic 83 mmHg Heart Rate 127 /min Body Temperature 98.0 F Respiratory Rate 18 /min Height 61.5 inches 5'1.50" Weight 114.38 lb O2 % BldC Oximetry 100 % [place] Body Weight 105 lb BMI (Body Mass Index) 21.3 kg/m2 03/23/2021 3:47pm BP Systolic 110 mmHg BP Diastolic 62 mmHg Heart Rate 64 /min Body Temperature 98.7 F Respiratory Rate 16 /min Height 61.5 inches 5'1.50" Weight 116.38 lb O2 % BldC Oximetry 99 % [place] Body Weight 105 lb BMI (Body Mass Index) 21.6 kg/m2 Results Test Acquired Date Facility Test Result H/L Range Note CBC With Differential 05/10/2021 Patient Service [place] [id number] [phone] White Blood Count 5.2 10 Normal 4.0-10.0 [...] 36.0-66.0 Lymph % 4.8 % Low 24.0-44.0 [place] % 8.7 % High 2.0-8.0 Eos % 1.2 % Normal 0.0-3.0 Baso % 0.4 % Normal 0.0-1.0 Immature Granulocyte % 0.6 % Normal 0-3.0 Nucleated Red Blood Cell % 0.0 % Normal 0-0 Neutrophils # 4.4 10 Normal 1.5-8.5 Lymph # 0.3 10 Low 1.5-5.0 [place] # 0.5 10 Normal 0.0-0.8 Eos # 0.1 10 Normal 0.0-0.5 Baso # 0.0 10 Normal 0.0-0.2 CBC With Differential 05/08/2021 [place] [address] [phone] White Blood Count 4.8 10 Normal 4.0-10.0 [...] 36.0-66.0 Lymph % 5.2 % Low 24.0-44.0 [place] % 11.2 % High 2.0-8.0 Eos % 1.4 % Normal 0.0-3.0 Baso % 0.4 % Normal 0.0-1.0 Immature Granulocyte % 0.4 % Normal 0-3.0 Nucleated Red Blood Cell % 0.0 % Normal 0-0 Neutrophils # 3.9 10 Normal 1.5-8.5 Lymph # 0.3 10 Low 1.5-5.0 [place] # 0.5 10 Normal 0.0-0.8 Eos # 0.1 10 Normal 0.0-0.5 Baso # 0.0 10 Normal 0.0-0.2 Occult Blood 05/08/2021 [place] [address] [phone] Occult Blood OCCULT BLOOD 1 <SEE NOTE> Abnormal 1 Type & Screen -Incl Blood Type,Tye,AB SC 05/08/2021 [place] [address] [phone] Blood Type O POSITIVE Normal AB Screen (Indirect Faroo[place])Vis NEGATIVE Normal Laboratory test finding 05/08/2021 Patient Service [facility] [place] [id number] [phone] Packed Cells TRANSFUSED PRODU <SEE NOTE> 2 Retic (Reticulocyte Count) 05/05/2021 [place] [address] [phone] Reticulocyte % 5.9 % High 0.5-1.5 Reticulocyte # 119.8 10 High 17-77 Retic Hemoglobin Equivalent 30.7 pg Normal 24-36 Prothrombin Time/Inr 05/05/[address] [place] [address] [phone] Prothrombin Time 14.0 seconds Normal 12.7-14.5 Inr 1.04 Normal 3 Laboratory test finding 05/05/2021 [place] [address] [phone] Partial Thromboplastin Time 24.9 seconds Low 25 .9-37.0 Platelet Function Analysis 05/05/2021 [place] [address] [phone] Collagen Epinephrine TNP seconds Normal 74-162 4 Laboratory test finding 05/05/2021 [place] [address] [phone] LDH Lactate Dehydrogenase 128 U/L Normal 84-246 Haptoglobin 214 mg/dL Normal 41-333 5 Factor VIII Panel 05/05/2021 Patient Service [facility] [place] [address] [phone] F8 Activity For F8 Panel 214 % High 56-140 6 F8 Antigen For F8 Panel 115 % Normal 50-200 7 F8 Activity vWB For F8 Panel 71 % Normal 50-200 Interpretation: Note Normal . 8 CBC With Differential 05/05/2021 [place] [address] [phone] White Blood Count 5.1 10 Normal 4.0-10.0 [...] 36.0-66.0 Lymph % 6.3 % Low 24.0-44.0 [place] % 11.5 % High 2.0-8.0 Eos % 0.8 % Normal 0.0-3.0 Baso % 0.4 % Normal 0.0-1.0 Immature Granulocyte % 0.6 % Normal 0-3.0 Nucleated Red Blood Cell % 0.0 % Normal 0-0 Neutrophils # 4.1 10 Normal 1.5-8.5 Lymph # 0.3 10 Low 1.5-5.0 [place] # 0.6 10 Normal 0.0-0.8 Eos # 0.0 10 Normal 0.0-0.5 Baso # 0.0 10 Normal 0.0-0.2 Type & Screen -Incl Blood Type,Tye,AB SC 05/05/2021 [place] [address] [phone] Blood Type O POSITIVE Normal AB Screen (Indirect [place])Vis NEGATIVE Normal Laboratory test finding 05/05/2021 [place] [address] [phone] Packed Cells TRANSFUSED PRODU <SEE NOTE> 9 CBC With Differential 04/27/2021 [place] [address] [phone] White Blood Count 4.2 10 Normal 4.0-10.0 [...] 36.0-66.0 Lymph % 8.1 % Low 24.0-44.0 [place] % 12.8 % High 2.0-8.0 Eos % 1.0 % Normal 0.0-3.0 Baso % 0.2 % Normal 0.0-1.0 Immature Granulocyte % 0.5 % Normal 0-3.0 Nucleated Red Blood Cell % 0.0 % Normal 0-0 Neutrophils # 3.3 10 Normal 1.5-8.5 Lymph # 0.3 10 Low 1.5-5.0 [place] # 0.5 10 Normal 0.0-0.8 Eos # 0.0 10 Normal 0.0-0.5 Baso # 0.0 10 Normal 0.0-0.2 CBC With Differential 04/20/2021 Patient Service [place], [place] [id number] [phone] White Blood Count 3.9 10 Low 4.0-10.0 [...] 36.0-66.0 Lymph % 8.8 % Low 24.0-44.0 [place] % 11.9 % High 2.0-8.0 Eos % 1.0 % Normal 0.0-3.0 Baso % 0.5 % Normal 0.0-1.0 Immature Granulocyte % 0.8 % Normal 0-3.0 Nucleated Red Blood Cell % 0.0 % Normal 0-0 Neutrophils # 3.0 10 Normal 1.5-8.5 Lymph # 0.3 10 Low 1.5-5.0 [place] # 0.5 10 Normal 0.0-0.8 Eos # 0.0 10 Normal 0.0-0.5 Baso # 0.0 10 Normal 0.0-0.2 CBC With Differential 04/12/2021 [place] [address] [phone] White Blood Count 4.6 10 Normal 4.0-10.0 [...] 36.0-66.0 Lymph % 6.6 % Low 24.0-44.0 [place] % 9.4 % High 2.0-8.0 Eos % 0.9 % Normal 0.0-3.0 Baso % 0.2 % Normal 0.0-1.0 Immature Granulocyte % 0.4 % Normal 0-3.0 Nucleated Red Blood Cell % 0.0 % Normal 0-0 Neutrophils # 3.8 10 Normal 1.5-8.5 Lymph # 0.3 10 Low 1.5-5.0 [place] # 0.4 10 Normal 0.0-0.8 Eos # 0.0 10 Normal 0.0-0.5 Baso # 0.0 10 Normal 0.0-0.2 Coronavirus 2019 Nasopharygeal 04/10/2021 [place] [address] [phone] Coronavirus 2019 Nasopharygeal ASSAY INFORMATIO <SEE N OTE> 10 Type & Screen -Incl Blood Type,Tye,AB SC 04/07/2021 [place] [address] [phone] Blood Type O POSITIVE Normal AB Screen (Indirect [place])Vis NEGATIVE Normal Laboratory test finding 04/07/2021 Patient Service [place] [id number] [phone] Packed Cells TRANSFUSED PRODU <SEE NOTE> 11 CBC With Differential 04/07/2021 [place] [address] [phone] White Blood Count 3.4 10 Low 4.0-10.0 [...] 36.0-66.0 Lymph % 8.5 % Low 24.0-44.0 [place] % 10.9 % High 2.0-8.0 Eos % 0.9 % Normal 0.0-3.0 Baso % 0.6 % Normal 0.0-1.0 Immature Granulocyte % 0.6 % Normal 0-3.0 Nucleated Red Blood Cell % 0.0 % Normal 0-0 Neutrophils # 2.7 10 Normal 1.5-8.5 Lymph # 0.3 10 Low 1.5-5.0 [place] # 0.4 10 Normal 0.0-0.8 Eos # 0.0 10 Normal 0.0-0.5 Baso # 0.0 10 Normal 0.0-0.2 Total Iron Binding Capacit 04/07/2021 [place] [address] [phone] Iron (Fe) 48 g/dL Low 50-170 Total Iron Binding Capacity 353 g/dL Normal 250-450 Percent Saturation 13.6 % Normal 13.2-45.0 Comprehensive Metabolic Profil 04/07/2021 [place] [address] [phone] Glucose, Fasting 184 mg/dL High 70-100 Blood Urea Nitrogen 30 mg/dL High 7-18 Creatinine For GFR 0.81 mg/dL Normal 0.55-1.30 Glomerular Filtration Rate > 60.0 Normal >32 1 2 Sodium Level 141 mEq/L Normal 136-145 [...] Low 3.2-5.2 Albumin/Globulin Ratio 1.0 Low 1.2-2.2 Laboratory test finding 04/07/2021 Patient Service Center [place], [place] [id number] [phone] Carcinoembryonic Antigen < 0.5 NG/ML Normal <2.5 13 Ferritin 66 NG/ML Normal 8-252 Comprehensive Metabolic Profil 03/24/2021 [place] [address] [phone] Glucose, Fasting 96 mg/dL Normal 70-100 Blood [...] A/B RSV Covid Amp 03/24/2021 [place] [address] [phone] Influenza A Amplification NEGATIVE Normal Negati ve 15 Influenza B Amplification NEGATIVE Normal Negative 16 RSV Amplification NEGATIVE Normal Negative 17 Sars Covid-19 Amplification NEGATIVE Normal Negative 18 Laboratory test finding 03/24/2021 [place] [address] [phone] Packed Cells TRANSFUSED PRODU <SEE NOTE> 19 CBC With Differential 03/24/2021 [place] [address] [phone] White Blood Count 4.6 10 Normal 4.0-10.0 [...] 36.0-66.0 Lymph % 6.2 % Low 24.0-44.0 [place] % 11.4 % High 2.0-8.0 Eos % 0.4 % Normal 0.0-3.0 Baso % 0.4 % Normal 0.0-1.0 Immature Granulocyte % 0.4 % Normal 0-3.0 Nucleated Red Blood Cell % 0.7 % High 0-0 Neutrophils # 3.7 10 Normal 1.5-8.5 Lymph # 0.3 10 Low 1.5-5.0 [place] # 0.5 10 Normal 0.0-0.8 Eos # 0.0 10 Normal 0.0-0.5 Baso # 0.0 10 Normal 0.0-0.2 Hemoglobin A1c 03/17/2021 [facility] [address] [place] [address] [phone] Hemoglobin A1c 4.8 % 4.8-5.6 20 Albumin/Creatinine Ratio, Random Urine 03/17/2021 [facility] [address] [place] [address] [phone] Creatinine, Urine 120.2 mg/dL Not Estab. Albumin, Urine 20.1 ug/mL Not Estab. Alb/Creat Ratio 17 mg/gcreat 0-29 21 Lipid Panel 03/17/2021 [facility] [address] [place] [address] [phone] Cholesterol, Total 123 mg/dL 100-199 Triglycerides 141 mg/dL 0-149 HDL Cholesterol 37 mg/dL Low >39 VLDL Cholesterol Mark 25 mg/dL 5-40 LDL Chol Calc ([facility]) 61 mg/dL 0-99 Comment: TNP Metabolic Panel (14), Comprehensive 03/17/[address] [facility] [address] [place] [phone] [phone] Calcium 9.5 mg/dL 8.7-10.3 Glucose 81 mg/dL 65-99 BUN 30 mg/dL High 8-27 Creatinine 0.77 mg/dL 0.57-1.00 eGFR If NonAfricn Am 73 mL/min/1.73 >59 eGFR If Africn Am 84 mL/min/1.73 >59 22 BUN/Creatinine Ratio 39 High 12-28 Sodium 142 mmol/L 134-144 Potassium 4.4 mmol/L 3.5-5.2 Chloride 108 mmol/L High 96-106 Carbon Dioxide, Total 22 mmol/L 20-29 Protein, Total 6.1 g/dL 6.0-8.5 Albumin 4.0 g/dL 3.6-4.6 Globulin, Total 2.1 g/dL 1.5-4.5 A/G Ratio 1.9 1.2-2.2 Bilirubin, Total 0.7 mg/dL 0.0-1.2 Alkaline Phosphatase 91 IU/L 48-121 23 Ast (Sgot) 12 IU/L 0-40 Alt (SGPT) 8 IU/L 0-32 CBC With Differential 03/14/2021 Patient Service Ce [facility] [place] [address] [phone] White Blood Count 4.0 10 Normal 4.0-10.0 [...] 36.0-66.0 Lymph % 6.8 % Low 24.0-44.0 [place] % 9.3 % High 2.0-8.0 Eos % 1.0 % Normal 0.0-3.0 Baso % 0.8 % Normal 0.0-1.0 Immature Granulocyte % 0.3 % Normal 0-3.0 Nucleated Red Blood Cell % 0.0 % Normal 0-0 Neutrophils # 3.3 10 Normal 1.5-8.5 Lymph # 0.3 10 Low 1.5-5.0 [place] # 0.4 10 Normal 0.0-0.8 Eos # 0.0 10 Normal 0.0-0.5 Baso # 0.0 10 Normal 0.0-0.2 Type & Screen -Incl Blood Type,Tye,AB SC 03/14/2021 [place] [address] [phone] Blood Type O POSITIVE Normal AB Screen (Indirect [place])Vis NEGATIVE Normal Laboratory test finding 03/14/2021 [place] [address] [phone] Packed Cells TRANSFUSED PRODU <SEE NOTE> 24 CBC With Differential 03/10/2021 [place] [address] [phone] White Blood Count 3.4 10 Low 4.0-10.0 [...] 36.0-66.0 Lymph % 7.6 % Low 24.0-44.0 [place] % 12.9 % High 2.0-8.0 Eos % 1.2 % Normal 0.0-3.0 Baso % 0.6 % Normal 0.0-1.0 Immature Granulocyte % 0.3 % Normal 0-3.0 Nucleated Red Blood Cell % 0.0 % Normal 0-0 Neutrophils # 2.6 10 Normal 1.5-8.5 Lymph # 0.3 10 Low 1.5-5.0 [place] # 0.4 10 Normal 0.0-0.8 Eos # 0.0 10 Normal 0.0-0.5 Baso # 0.0 10 Normal 0.0-0.2 Comprehensive Metabolic Profil 03/10/2021 Patient S [place] [id number] [phone] Glucose, Fasting 166 mg/dL High 70-100 Blood Urea Nitrogen 26 mg/dL High 7-18 Creatinine For GFR 0.73 mg/dL Normal 0.55-1.30 Glomerular Filtration Rate > 60.0 Normal >32 2 5 Sodium Level 141 mEq/L Normal 136-145 [...] 1.2-2.2 Total Iron Binding Capacit 03/10/2021 [place] [address] [phone] Iron (Fe) 72 g/dL Normal 50-170 Total Iron Binding Capacity 352 g/dL Normal 250-450 Percent Saturation 20.5 % Normal 13.2-45.0 Laboratory test finding 03/10/2021 [place] [address] [phone] Carcinoembryonic Antigen < 0.5 NG/ML Normal <2.5 26 Ferritin 492 NG/ML High 8-252 Type & Screen -Incl Blood Type,Tye,AB SC 02/28/2021 [place] [address] [phone] Blood Type O POSITIVE Normal AB Screen (Indirect [place])Vis NEGATIVE Normal Laboratory test finding 02/28/2021 [place] [address] [phone] Packed Cells TRANSFUSED PRODU <SEE NOTE> 27 Laboratory test finding 02/27/2021 Patient Service [place] [id number] [phone] Blood Urea Nitrogen 26 mg/dL High 7-18 Creatinine With GFR 02/27/2021 [place] [address] [phone] Creatinine For GFR 0.76 mg/dL Normal 0.55-1.30 Glomerular Filtration Rate > 60.0 Normal >32 2 8 Total Iron Binding Capacit 02/27/2021 [place] [address] [phone] Iron (Fe) 79 g/dL Normal 50-170 Total Iron Binding Capacity 384 g/dL Normal 250-450 Percent Saturation 20.6 % Normal 13.2-45.0 Laboratory test finding 02/27/2021 [place] [address] [phone] Ferritin 1039 NG/ML High 8-252 CBC With Differential 02/27/2021 [place] [address] [phone] White Blood Count 6.0 10 Normal 4.0-10.0 [...] 36.0-66.0 Lymph % 4.7 % Low 24.0-44.0 [place] % 11.6 % High 2.0-8.0 Eos % 0.5 % Normal 0.0-3.0 Baso % 0.3 % Normal 0.0-1.0 Immature Granulocyte % 0.8 % Normal 0-3.0 Nucleated Red Blood Cell % 0.3 % High 0-0 Neutrophils # 4.9 10 Normal 1.5-8.5 Lymph # 0.3 10 Low 1.5-5.0 [place] # 0.7 10 Normal 0.0-0.8 Eos # 0.0 10 Normal 0.0-0.5 Baso # 0.0 10 Normal 0.0-0.2 Laboratory test finding 02/10/2021 Patient Service [place] 7518832 [phone] Packed Cells TRANSFUSED PRODU <SEE NOTE> 29 Type & Screen -Incl Blood Type,Tye,AB SC 02/10/2021 [place] [address] [phone] Blood Type O POSITIVE Normal AB Screen (Indirect [place])Vis NEGATIVE Normal CBC With Differential 02/09/2021 [place] [address] [phone] White Blood Count 3.9 10 Low 4.0-10.0 [...] 36.0-66.0 Lymph % 7.2 % Low 24.0-44.0 [place] % 10.0 % High 2.0-8.0 Eos % 1.0 % Normal 0.0-3.0 Baso % 0.5 % Normal 0.0-1.0 Immature Granulocyte % 0.5 % Normal 0-3.0 Nucleated Red Blood Cell % 0.0 % Normal 0-0 Neutrophils # 3.1 10 Normal 1.5-8.5 Lymph # 0.3 10 Low 1.5-5.0 [place] # 0.4 10 Normal 0.0-0.8 Eos # 0.0 10 Normal 0.0-0.5 Baso # 0.0 10 Normal 0.0-0.2 Total Iron Binding Capacit 01/27/2021 [place] [address] [phone] Iron (Fe) 59 g/dL Normal 50-170 Total Iron Binding Capacity 397 g/dL Normal 250-450 Percent Saturation 14.9 % Normal 13.2-45.0 Laboratory test finding 01/27/2021 Patient Service Center [place], [place] [address]126669 [phone] Ferritin 39 NG/ML Normal 8-252 Carcinoembryonic Antigen 0.5 NG/ML Normal <2.5 30 Comprehensive Metabolic Profil 01/27/2021 Patient S ervice [place] [address]230 [phone] Glucose, Fasting 59 mg/dL Low 70-100 Blood Urea Nitrogen 25 mg/dL High 7-18 Creatinine For GFR 0.71 mg/dL Normal 0.55-1.30 Glomerular Filtration Rate > 60.0 Normal >32 3 1 Sodium Level 141 mEq/L Normal 136-145 Potassium [...] 1.2-2.2 CBC With Differential 01/27/2021 [place] [address] [phone] White Blood Count 4.2 10 Normal 4.0-10.0 [...] 36.0-66.0 Lymph % 13.6 % Low 24.0-44.0 [place] % 14.6 % High 2.0-8.0 Eos % 1.4 % Normal 0.0-3.0 Baso % 0.5 % Normal 0.0-1.0 Immature Granulocyte % 0.5 % Normal 0-3.0 Nucleated Red Blood Cell % 0.0 % Normal 0-0 Neutrophils # 2.9 10 Normal 1.5-8.5 Lymph # 0.6 10 Low 1.5-5.0 [place] # 0.6 10 Normal 0.0-0.8 Eos # 0.1 10 Normal 0.0-0.5 Baso # 0.0 10 Normal 0.0-0.2 Complete Blood Count 01/20/2021 Patient Service [place] [facility] RADIOLOGY [place], [place] [id number] [phone] White Blood Count 3.3 10 Low 4.0-10.0 [...] 0-0 Laboratory test finding 01/20/2021 [place] [address] [phone] Blood Urea Nitrogen 21 mg/dL High 7-18 Creatinine With GFR 01/20/2021 [place] [address] [phone] Creatinine For GFR 0.69 mg/dL Normal 0.55-1.30 Glomerular Filtration Rate > 60.0 Normal >32 3 2 Type & Screen -Incl Blood Type,Tye,AB SC 01/20/2021 [place] [address] [phone] Blood Type O POSITIVE Normal AB Screen (Indirect [place])Vis NEGATIVE Normal Coronavirus 2019 Nasopharygeal 01/16/2021 [place] [address] [phone] Coronavirus 2019 Nasopharygeal ASSAY INFORMATIO <SEE N OTE> 33 Type & Screen -Incl Blood Type,Tye,AB SC 01/03/2021 [place] [address] [phone] Blood Type O POSITIVE Normal AB Screen (Indirect [place])Vis NEGATIVE Normal Laboratory test finding 01/03/2021 Patient Service [place] [id number] [phone] Packed Cells TRANSFUSED PRODU <SEE NOTE> 34 CBC With Differential 01/02/2021 [place] [address] [phone] White Blood Count 4.3 10 Normal 4.0-10.0 [...] 36.0-66.0 Lymph % 10.7 % Low 24.0-44.0 [place] % 13.1 % High 2.0-8.0 Eos % 0.7 % Normal 0.0-3.0 Baso % 0.5 % Normal 0.0-1.0 Immature Granulocyte % 0.5 % Normal 0-3.0 Nucleated Red Blood Cell % 0.0 % Normal 0-0 Neutrophils # 3.2 10 Normal 1.5-8.5 Lymph # 0.5 10 Low 1.5-5.0 [place] # 0.6 10 Normal 0.0-0.8 Eos # 0.0 10 Normal 0.0-0.5 Baso # 0.0 10 Normal 0.0-0.2 Laboratory test finding 01/02/2021 [place] [address] [phone] Thyroid Stimulating Hormone 1.660 uIU/ML Normal 0. 358-3.740 Free T4 0.87 ng/dL Normal 0.76-1.46 Ferritin 58 NG/ML Normal 8-252 Comprehensive Metabolic Profil 01/02/2021 [facility] [place] [address] [phone] Glucose, Fasting 155 mg/dL High 70-100 Blood Urea Nitrogen 24 mg/dL High 7-18 Creatinine For GFR 0.85 mg/dL Normal 0.55-1.30 Glomerular Filtration Rate > 60.0 Normal >32 3 5 Sodium Level 137 mEq/L Normal 136-145 Potassium [...] Binding Capacit 01/02/2021 [place] [address] [phone] Iron (Fe) 55 g/dL Normal 50-170 Total Iron Binding Capacity 398 g/dL Normal 250-450 Percent Saturation 13.8 % Normal 13.2-45.0 Laboratory test finding 12/23/2020 [place] [address] [phone] iSTAT Troponin 0.01 NG/ML Normal 0.00-0.08 Istat Chem8+ Panel 12/23/2020 [place] [address] [phone] iSTAT HCT 33.0 % Low 38.0-51.0 iSTAT Glucose 94 mg/dL Normal 70-105 iSTAT Sodium 138 mEq/L Normal 136-145 iSTAT Potassium 4.2 mEq/L Normal 3.5-5.1 iSTAT CA++ 5.0 mg/dL Normal 4.5-5.3 iSTAT Chloride 102 mEq/L Normal 98-109 iSTAT Co2 27.0 MM/L Normal 23.0-27.0 iSTAT BUN 20 mg/dL Normal 8-26 iSTAT Creatinine 0.7 mg/dL Normal 0.6-1.3 CBC With Differential 12/23/2020 [place] [address] [phone] White Blood Count 4.5 10 Normal 4.0-10.0 [...] 36.0-66.0 Lymph % 9.7 % Low 24.0-44.0 [place] % 11.9 % High 2.0-8.0 Eos % 0.9 % Normal 0.0-3.0 Baso % 0.4 % Normal 0.0-1.0 Immature Granulocyte % 0.4 % Normal 0-3.0 Nucleated Red Blood Cell % 0.0 % Normal 0-0 Neutrophils # 3.5 10 Normal 1.5-8.5 Lymph # 0.4 10 Low 1.5-5.0 [place] # 0.5 10 Normal 0.0-0.8 Eos # 0.0 10 Normal 0.0-0.5 Baso # 0.0 10 Normal 0.0-0.2 PT & Aptt 12/23/2020 [place] [address] [phone] Prothrombin Time 13.3 seconds Normal 12.5-14.3 Inr 0.99 Normal 36 Partial Thromboplastin Time 29.5 seconds Normal 24.2-38.5 Liver Profile 12/23/2020 [place] [address] [phone] Ast/Sgot 13 U/L Normal 7-37 Alt/SGPT 14 U/L Normal 12-78 Alkaline Phosphatase 95 U/L Normal 45-117 Bilirubin,Total 0.9 mg/dL Normal 0.2-1.0 Bilirubin,Direct 0.3 mg/dL High 0.0-0.2 Total Protein 6.5 GM/DL Normal 6.4-8.2 Albumin 3.4 GM/DL Normal 3.2-5.2 Albumin/Globulin Ratio 1.1 Low 1.2-2.2 Laboratory test finding 12/23/2020 [place] [address] [phone] Lipase 73 U/L Normal 73-393 Lactic Acid Sepsis Protocol 0.8 mmol/L Normal 0.4-2.0 37 CBC With Differential 12/19/2020 [place] [address] [phone] White Blood Count 3.8 10 Low 4.0-10.0 [...] 36.0-66.0 Lymph % 11.7 % Low 24.0-44.0 [place] % 11.9 % High 2.0-8.0 Eos % 1.1 % Normal 0.0-3.0 Baso % 0.3 % Normal 0.0-1.0 Immature Granulocyte % 0.5 % Normal 0-3.0 Nucleated Red Blood Cell % 0.0 % Normal 0-0 Neutrophils # 2.8 10 Normal 1.5-8.5 Lymph # 0.4 10 Low 1.5-5.0 [place] # 0.5 10 Normal 0.0-0.8 Eos # 0.0 10 Normal 0.0-0.5 Baso # 0.0 10 Normal 0.0-0.2 CBC With Differential 12/05/2020 [place] [address] [phone] White Blood Count 3.4 10 Low 4.0-10.0 [...] 36.0-66.0 Lymph % 12.8 % Low 24.0-44.0 [place] % 13.7 % High 2.0-8.0 Eos % 1.2 % Normal 0.0-3.0 Baso % 0.6 % Normal 0.0-1.0 Immature Granulocyte % 0.3 % Normal 0-3.0 Nucleated Red Blood Cell % 0.0 % Normal 0-0 Neutrophils # 2.4 10 Normal 1.5-8.5 Lymph # 0.4 10 Low 1.5-5.0 [place] # 0.5 10 Normal 0.0-0.8 Eos # 0.0 10 Normal 0.0-0.5 Baso # 0.0 10 Normal 0.0-0.2 Laboratory test finding 12/05/2020 [place] [address] [phone] Ferritin 108 NG/ML Normal 8-252 Total Iron Binding Capacit 12/05/2020 [place] [address] [phone] Iron (Fe) 94 g/dL Normal 50-170 Total Iron Binding Capacity 350 g/dL Normal 250-450 Percent Saturation 26.9 % Normal 13.2-45.0 PT & Aptt 12/05/2020 [place] [address] [phone] Prothrombin Time 13.3 seconds Normal 12.5-14.3 Inr 0.99 Normal 38 Partial Thromboplastin Time 29.4 seconds Normal 24.2-38.5 PT & Aptt 11/25/2020 [place] [address] [phone] Prothrombin Time 16.4 seconds High 12.5-14.3 Inr 1.29 Normal 39 Partial Thromboplastin Time 33.4 seconds Normal 24.2-38.5 Complete Blood Count 11/25/2020 [place] [address] [phone] White Blood Count 4.4 10 Normal 4.0-10.0 [...] 0-0 Comprehensive Metabolic Profil 11/25/[address] [place] [address] [phone] Glucose, Fasting 110 mg/dL High 70-100 Blood Urea Nitrogen 22 mg/dL High 7-18 Creatinine For GFR 0.68 mg/dL Normal 0.55-1.30 Glomerular Filtration Rate > 60.0 Normal >32 4 0 Sodium Level 140 mEq/L Normal 136-145 Potassium [...] 1.2-2.2 Cardiac Marker Panel 11/25/2020 [place] [address] [phone] CPK Creatine Phosphokinase 60 U/L Normal 26-19 2 CK-MB Value Mass 1.3 NG/ML Normal <3.6 MB/CK Relative Index 2.17 Normal < Or =4 41 Troponin I < 0.02 NG/ML Normal < 0.10 42 Laboratory test finding 11/25/2020 Patient Service [facility] [place], [place] [id number] [phone] NT-Pro BNP 1795 pg/mL High <450 Type & Screen -Incl Blood Type,Tye,AB SC 11/25/2020 Patient [facility] [place], [place] [id number] [phone] Blood Type O POSITIVE Normal AB Screen (Indirect [place])Vis NEGATIVE Normal 1 OCCULT BLOOD 1 POSITIVE 2 TRANSFUSED PRODUCT: PACKED C ELLS COUNT: 1 3 THERAPUTIC HUMAN INR VALUES INDICATIONS NORMAL RANGES PROPHYLAXIS/TREATMENT OF: VENOUS THROMBOSIS 2.0-3.0 PULMONARY EMBOLISM 2.0-3.0 PREVENTION OF SYSTEMIC EMBOLISM FROM: TISSUE HEART VALVES 2.0-3.0 ACUTE MYOCARDIAL INFARCTION 2.0-3.0 VALVULAR HEART DISEASE 2.0-3.0 ATRIAL FIBRILLATION 2.0-3.0 MECHANICAL VALVES(HIGH RISK) 2.5-3.5 RECURRENT MYOCARDIAL INFARCTION 2.5-3.5 4 UNABLE TO PERFORM TEST DUE T O hct <35% 5 Performed at: [facility] [employer] [id number] Electrician Locomotive: Matt Mcdonnell MD, Phone: [phone] Performed at: [facility] [address] [place] [address] [address], [place], [place] [id number] Electrician Locomotive: Gary Youngblood MD, Phone: [phone] Performed at: [facility] [id number] Electrician Locomotive: Teresa Nguyen MD, Phone: [phone] 6 FVIII activity can increase in a variety [...] been elucidated (Br J Haematol. 2012; 157:653-663). 7 This test was developed and its performance characteristics determined by [employer]. It has not been cleared or approved by the Food and Drug Administration. 8 --- COAGULATION: VON WILLEBRAND FACTOR ASSESSMENT CURRENT [...] cofactor activity; FVIII - factor VIII activity. TITLE CLERK: For questions regarding panel interpretation, please contact Mikal Wasserman M.D. at [employer] at . DISCLAIMER These assessments and [...] (1) The National Heart, Lung and Blood Hamer. The Diagnosis, Evaluation and Management of von Willebrand Disease. [employer], MD: National Institutes of Health Publication 08-5832. 2006. Available at http://www.nhlbi.nih.gov/guidelines/vwd/. (2) Tayo WL et al. Am J Hematol. 2009; 84(6):366-370. (3) Pam Domingo et al. Haemophilia. 2004;10(3):199-217. (4) Lety WOODRUFF et al. Haemophilia. 2004; 10(3):218-231. 9 TRANSFUSED PRODUCT: PACKED C ELLS COUNT: 2 10 ASSAY INFORMATION: Real Time RT-PCR or TMA. Both RT-PCR and TMA are nucleic acid amplification tests (NAAT) which are molecular testing modalities and recommended by the CDC for passenger travel. Testing and International Air Travel, cdc.gov/coronavirus/2019-ncov/travelers/hotbfvn-sjc-vxbmud.html 09/01/2020 NOTE: The COVID-19 assay is under Emergency Use Authorization (EUA) by the U.S. Food and Drug Administration. [employer] and [employer] are designated as high complexity laboratories by the Clinical Laboratory Improvement Amendments of 1988 (CLIA) and are qualified to perform this test. Not Detected 11 TRANSFUSED PRODUCT: PACKED C ELLS COUNT: 3 12 Units are mL/min/1.73 m2 Chronic Kidney Disease Staging per NKF: Stage I & II GFR >=60 Normal to Mildly Decreased Stage III GFR 30-59 Moderately Decreased Stage IV GFR 15-29 Severely Decreased Stage V GFR <15 Very Little GFR Left ESRD GFR <15 on ASSOCIATE PROFESSOR OF ANTHROPOLOGY 13 THE CEA ASSAY IS PERFORMED O N THE [employer] BY CHEMILUMINESCENCE AND SHOULD NOT BE COMPARED [...] Little GFR Left ESRD GFR <15 on ASSOCIATE PROFESSOR OF ANTHROPOLOGY 15 Negative results do not prec lude influenza or RSV virus infection and should not be used as the sole basis for treatment or other patient management decisions. 16 Negative results do not prec lude influenza or RSV virus infection and should not be used as the sole basis for treatment or other patient management decisions. 17 Negative results do not prec lude influenza or RSV virus infection and should not be used as the sole basis for treatment or other patient management decisions. 18 A false negative result may occur if [...] pathogens. DISCLAIMER: Testing was performed using the [employer] SARS-CoV-2 test. This test was developed and its performance characteristics determined by [employer]. This test has not been FDA cleared [...] the authorization is terminated or revoked sooner. 19 TRANSFUSED PRODUCT: PACKED C ELLS COUNT: 1 20 Prediabetes: 5.7 - 6.4 Diabetes: >6.4 Glycemic control for adults with diabetes: <7.0 21 Normal: 0 - 29 Moderately increased: 30 - 300 Severely increased: >300 22 [facility] currently reports eGFR in compliance with the current recommendations of the National Kidney Foundation. [facility] will update reporting as new guidelines are published from the NKF-ASN Task force. 23 Effective March 27 21 Alkaline Phosphatase reference [...] years 44 - 121 44 - 121 24 TRANSFUSED PRODUCT: PACKED C ELLS COUNT: 2 25 Units are mL/min/1.73 m2 Chronic Kidney Disease Staging per NKF: Stage I & II GFR >=60 Normal to Mildly Decreased Stage III GFR 30-59 Moderately Decreased Stage IV GFR 15-29 Severely Decreased Stage V GFR <15 Very Little GFR Left ESRD GFR <15 on ASSOCIATE PROFESSOR OF ANTHROPOLOGY 26 THE CEA ASSAY IS PERFORMED O N THE [employer] BY CHEMILUMINESCENCE AND SHOULD NOT BE COMPARED INTERCHANGEABLY WITH OTHER METHODS. IT SHOULD NOT BE USED ALONE A SCREENING TEST OR DIAGNOSIS FOR THE PRESENCE OR ABSENCE OF MALIGNANT DISEASE. PREDICTIONS OF DISEASE RECURRENCE SHOULD NOT BE BASED SOLELY ON VALUES OBTAINED FROM SERIAL PATIENT SERUM VALUES. 27 TRANSFUSED PRODUCT: PACKED C ELLS COUNT: 2 28 Units are mL/min/1.73 m2 Chronic Kidney Disease Staging per NKF: Stage I & II GFR >=60 Normal to Mildly Decreased Stage III GFR 30-59 Moderately Decreased Stage IV GFR 15-29 Severely Decreased Stage V GFR <15 Very Little GFR Left ESRD GFR <15 on ASSOCIATE PROFESSOR OF ANTHROPOLOGY 29 TRANSFUSED PRODUCT: PACKED C ELLS COUNT: 2 30 THE CEA ASSAY IS PERFORMED O N THE [employer] BY CHEMILUMINESCENCE AND SHOULD NOT BE COMPARED INTERCHANGEABLY WITH OTHER METHODS. IT SHOULD NOT BE USED ALONE A SCREENING TEST OR DIAGNOSIS FOR THE PRESENCE OR ABSENCE OF MALIGNANT DISEASE. PREDICTIONS OF DISEASE RECURRENCE SHOULD NOT BE BASED SOLELY ON VALUES OBTAINED FROM SERIAL PATIENT SERUM VALUES. 31 Units are mL/min/1.73 m2 Chronic Kidney Disease Staging per NKF: Stage I & II GFR >=60 Normal to Mildly Decreased Stage III GFR 30-59 Moderately Decreased Stage IV GFR 15-29 Severely Decreased Stage V GFR <15 Very Little GFR Left ESRD GFR <15 on ASSOCIATE PROFESSOR OF ANTHROPOLOGY 32 Units are mL/min/1.73 m2 Chronic Kidney Disease Staging per NKF: Stage I & II GFR >=60 Normal to Mildly Decreased Stage III GFR 30-59 Moderately Decreased Stage IV GFR 15-29 Severely Decreased Stage V GFR <15 Very Little GFR Left ESRD GFR <15 on ASSOCIATE PROFESSOR OF ANTHROPOLOGY 33 ASSAY INFORMATION: Real Time RT-PCR NOTE: The COVID-19 assay has been cleared by the U.S. Food and Drug Administration under the Emergency Use Authorization (EUA). [employer] and [employer] are designated as high complexity laboratories by the Clinical Laboratory Improvement Amendments of 1988(CLIA) and are qualified to perform this test. Not Detected 34 TRANSFUSED PRODUCT: PACKED C ELLS COUNT: 1 35 Units are mL/min/1.73 m2 Chronic Kidney Disease Staging per NKF: Stage I & II GFR >=60 Normal to Mildly Decreased Stage III GFR 30-59 Moderately Decreased Stage IV GFR 15-29 Severely Decreased Stage V GFR <15 Very Little GFR Left ESRD GFR <15 on ASSOCIATE PROFESSOR OF ANTHROPOLOGY 36 THERAPUTIC HUMAN INR VALUES INDICATIONS NORMAL RANGES PROPHYLAXIS/TREATMENT OF: VENOUS THROMBOSIS 2.0-3.0 PULMONARY EMBOLISM 2.0-3.0 PREVENTION OF SYSTEMIC EMBOLISM FROM: TISSUE HEART VALVES 2.0-3.0 ACUTE MYOCARDIAL INFARCTION 2.0-3.0 VALVULAR HEART DISEASE 2.0-3.0 ATRIAL FIBRILLATION 2.0-3.0 MECHANICAL VALVES(HIGH RISK) 2.5-3.5 RECURRENT MYOCARDIAL INFARCTION 2.5-3.5 37 Y/N query for Sepsis Lactate Rule: Y 38 THERAPUTIC HUMAN INR VALUES INDICATIONS NORMAL RANGES PROPHYLAXIS/TREATMENT OF: VENOUS THROMBOSIS 2.0-3.0 PULMONARY EMBOLISM 2.0-3.0 PREVENTION OF SYSTEMIC EMBOLISM FROM: TISSUE HEART VALVES 2.0-3.0 ACUTE MYOCARDIAL INFARCTION 2.0-3.0 VALVULAR HEART DISEASE 2.0-3.0 ATRIAL FIBRILLATION 2.0-3.0 MECHANICAL VALVES(HIGH RISK) 2.5-3.5 RECURRENT MYOCARDIAL INFARCTION 2.5-3.5 39 THERAPUTIC HUMAN INR VALUES INDICATIONS NORMAL RANGES PROPHYLAXIS/TREATMENT OF: VENOUS THROMBOSIS 2.0-3.0 PULMONARY EMBOLISM 2.0-3.0 PREVENTION OF SYSTEMIC EMBOLISM FROM: TISSUE HEART VALVES 2.0-3.0 ACUTE MYOCARDIAL INFARCTION 2.0-3.0 VALVULAR HEART DISEASE 2.0-3.0 ATRIAL FIBRILLATION 2.0-3.0 MECHANICAL VALVES(HIGH RISK) 2.5-3.5 RECURRENT MYOCARDIAL INFARCTION 2.5-3.5 40 Units are mL/min/1.73 m2 Chronic Kidney Disease Staging per NKF: Stage I & II GFR >=60 Normal to Mildly Decreased Stage III GFR 30-59 Moderately Decreased Stage IV GFR 15-29 Severely Decreased Stage V GFR <15 Very Little GFR Left ESRD GFR <15 on ASSOCIATE PROFESSOR OF ANTHROPOLOGY 41 DIAGNOSIS CRITERIA MMB ng/ml Relative Index (RI) NON-AMI < or = 5 N/A LEVINE ZONE > 5 < or = 4 AMI > 5 > 4 42 Troponin I Reference Interva l for ADINCON LOCI: 99th Percentile= 0.00-0.045 ng/ml Risk Stratification: <= 0.10 ng/ml Decreased Risk for Adverse Clinical Events. 0.10-1.50 ng/ml Increased Risk for Adv erse Clinical Events. Evaluation of additional criterion and/or repeat testing in 2-6 hours is suggested to rule out myocardial damage. >= 1.50 ng/ml Indicative of Myocardial Injury. Procedures Date Code Description Status 03/28/2021 [id number] [place] W/I 7 Days Of DC, Comm W/I 2 Dys Completed 03/23/2021 [id number] Office/Outpatient Established Mo d MDM 30-39 Min Completed 03/23/2021 [id number] Diabetic Foot Exam Completed 01/25/2021 [id number] [place] W/I 7 Days Of DC, Comm W/I 2 Dys Completed 12/27/2020 [id number] Office/Outpatient Established Mo d MDM 30-39 Min Completed 12/19/2020 [id number] Office/Outpatient Established Mo d MDM 30-39 Min Completed 12/02/2020 [id number] [place] W/I 7 Days Of DC, [...] unspecified Office Visit 01/25/2021 2:15p Main Office Pleskach Nadiya, MODELING DIRECTOR D64.9 Anemia, unspecified K29.61 Other gastritis with bleedin g Office Visit 12/27/2020 3:45p Main Office Anitha Gamez M.D. 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 D64.9 Anemia, unspecified Office Visit 12/19/2020 2:15p Main Office Pleskach, Nadiya, MODELING DIRECTOR E11.6 9 Type 2 diabetes mellitus with other specified complication E78.2 Mixed hyperlipidemia I10 Essential (primary) hyperten yara 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 C18.9 Malignant neoplasm of colon, unspecified I48.91 Unspecified atrial fibrillat ion Office Visit 12/02/2020 10:30a Main Office Pleskach Nadiya, MODELING DIRECTOR D64.9 Anemia, unspecified E11.69 Type 2 diabetes mellitus wit h other specified complication E78.2 Mixed hyperlipidemia I10 Essential (primary) hyperten yara 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 C18.9 Malignant neoplasm of colon, unspecified I48.91 Unspecified atrial fibrillat ion Assessments Date Code Description Provider 03/28/2021 D64.9 Anemia, unspecified Pleskach, Mo lly, [facility] 03/28/2021 K29.61 Other gastritis with bleeding Pl Nadiya hogan, MODELING DIRECTOR 03/23/2021 E11.69 Type 2 diabetes mellitus with ot her specified complication Pleskach, Nadiya, MODELING DIRECTOR 03/23/2021 C18.9 Malignant neoplasm of colon, uns pecified Pleskach, Nadiya, MODELING DIRECTOR 03/23/2021 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 Plegudeliaach Nadiya , MODELING DIRECTOR 03/23/2021 E78.2 Mixed hyperlipidemia Chayo Bryan, MODELING DIRECTOR 03/23/2021 I10 Essential (primary) hypertension Pleskach Nadiya, MODELING DIRECTOR 03/23/2021 I48.91 Unspecified atrial fibrillation Pleskach, Nadiya, MODELING DIRECTOR 03/23/2021 D64.9 Anemia, unspecified Pleskach, Mo lly, MODELING DIRECTOR 01/25/2021 D64.9 Anemia, unspecified Pleskach, Mo lly, MODELING DIRECTOR 01/25/2021 K29.61 Other gastritis with bleeding Pl Nadiya hogan, MODELING DIRECTOR 12/27/2020 E11.69 Type 2 diabetes mellitus with ot her specified complication Anitha Gamez M.D. 12/27/2020 C18.9 Malignant neoplasm of colon, uns pecified Anitha Gamez M.D. 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 12/27/2020 D64.9 Anemia, unspecified Angela Gamez M.D. 12/19/2020 E11.69 Type 2 diabetes mellitus with ot her specified complication Pleskach, Nadiya, MODELING DIRECTOR 12/19/2020 E78.2 Mixed hyperlipidemia Pleskach, M jarocho, MODELING DIRECTOR 12/19/2020 I10 Essential (primary) hypertension Plegudeliaach Nadiya, MODELING DIRECTOR 12/19/2020 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 Plealexy Nadiya , MODELING DIRECTOR 12/19/2020 C18.9 Malignant neoplasm of colon, uns pecified Pleskach Nadiya, MODELING DIRECTOR 12/19/2020 I48.91 Unspecified atrial fibrillation Pleskach Nadiya, MODELING DIRECTOR 12/02/2020 D64.9 Anemia, unspecified Pleskach Mo lljania, MODELING DIRECTOR 12/02/2020 E11.69 Type 2 diabetes mellitus with ot her specified complication Pleskach, Nadiya, MODELING DIRECTOR 12/02/2020 E78.2 Mixed hyperlipidemia Pleskach M jarocho, MODELING DIRECTOR 12/02/2020 I10 Essential (primary) hypertension Pleskach, Nadiya, MODELING DIRECTOR 12/02/2020 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 Pleskach Nadiya , MODELING DIRECTOR 12/02/2020 C18.9 Malignant neoplasm of colon, uns pecified Pleskach, Nadiya, MODELING DIRECTOR 12/02/2020 I48.91 Unspecified atrial fibrillation GalinaachNadiya, MODELING DIRECTOR Plan of Treatment Future Appointment(s):* 06/22/2021 3:30 pm - Nadiya Bryna FNP at Main Office 03/28/2021 - Nadiya Bryan MODELING DIRECTOR* D64.9 Anemia, unspecified* Comments:* following with hematology, [...]
--- OUTSIDE RECORDS SUMMARY | 2021-05-23 16:54 | CCD | Continuity of Care Document ---
Author Author Meron BRYAN ACCESS TECH Organization Unknown Address [address] [place] [address] Phone [phone] Care Team Providers Care Mobile Home Lot Utility Worker Name Role Phone [facility] AUTM [phone] Niels Decker M.D. AUTM [phone] [facility] AUTM Jeff Cramer AUTM [phone] Problems Active Problems Provider Date Type 2 [...] 236units C18.9 Nadiya Bryan FNP 06/16/2020 Z93.2 [place] Remover Wipes Misc use 3-4 wipes every 4 days and as needed when changing ostomy 2Box Z93.2 Nadiya Brayn FNP 06/16/2020 C18.9 Efren Adapt Ceraing change every 4-5 days and as needed ref #[id number] 20units Nadiya Bryan FNP 05/05/2020 Platinum 2 Piece Ostomy Skin Barrier ref # [id number] márquez ge every 4-5 days and as needed 20units C18.9 Nadiya Bryan FNP 04/14/2020 Z93.2 Platinum 2 Piece Drainable Ostomy Pouch ref # [id number] c hange every 4-5 days and as [...] 125mcg Tablets 1 by mouth every day Anihta Gamez M.D. 021 - 01/25/[address] 1 by mouth every day 90caps D64.9 Nadiya Bryan FNP 12/02/2020 - 01/25/2021 Sucralfate 1gm Tablets take 1 tablet by mouth before meals and at bedtime up to four times a day 120tabs Nadiya Bryan FNP 11/28/2020 - 01/25/2021 Immunizations CPT Code Status Date Vaccine Lot # [id number] Refused 04/17/2016 Pneumococcal Vaccine 67040 Refused 04/17/2016 Prevnar 13 10857 Refused 04/17/2016 Influenza Vaccination Vital Signs Date Vital Result Comment 03/28/2021 11:51am BP Systolic 113 mmHg BP Diastolic 83 mmHg Heart Rate 127 /min Body Temperature 98.0 F Respiratory Rate 18 /min Height 61.5 inches 5'1.50" Weight 114.38 lb O2 % BldC Oximetry 100 % Stacy Body Weight 105 lb BMI (Body Mass Index) 21.3 kg/m2 03/23/2021 3:47pm BP Systolic 110 mmHg BP Diastolic 62 mmHg Heart Rate 64 /min Body Temperature 98.7 F Respiratory Rate 16 /min Height 61.5 inches 5'1.50" Weight 116.38 lb O2 % BldC Oximetry 99 % Stacy Body Weight 105 lb BMI (Body Mass Index) 21.6 kg/m2 Results Test Acquired Date Facility Test Result H/L Range Note CBC With Differential 05/10/2021 Patient Service [place] [id number] [phone] White Blood Count 5.2 10 Normal 4.0-10.0 [...] 36.0-66.0 Lymph % 4.8 % Low 24.0-44.0 Hamlin % 8.7 % High 2.0-8.0 Eos % 1.2 % Normal 0.0-3.0 Baso % 0.4 % Normal 0.0-1.0 Immature Granulocyte % 0.6 % Normal 0-3.0 Nucleated Red Blood Cell % 0.0 % Normal 0-0 Neutrophils # 4.4 10 Normal 1.5-8.5 Lymph # 0.3 10 Low 1.5-5.0 Hamlin # 0.5 10 Normal 0.0-0.8 Eos # 0.1 10 Normal 0.0-0.5 Baso # 0.0 10 Normal 0.0-0.2 CBC With Differential 05/08/2021 [place] [address] [phone] White Blood Count 4.8 10 Normal 4.0-10.0 [...] 36.0-66.0 Lymph % 5.2 % Low 24.0-44.0 Hamlin % 11.2 % High 2.0-8.0 Eos % 1.4 % Normal 0.0-3.0 Baso % 0.4 % Normal 0.0-1.0 Immature Granulocyte % 0.4 % Normal 0-3.0 Nucleated Red Blood Cell % 0.0 % Normal 0-0 Neutrophils # 3.9 10 Normal 1.5-8.5 Lymph # 0.3 10 Low 1.5-5.0 Hamlin # 0.5 10 Normal 0.0-0.8 Eos # 0.1 10 Normal 0.0-0.5 Baso # 0.0 10 Normal 0.0-0.2 Occult Blood 05/08/2021 [place] [address] [phone] Occult Blood OCCULT BLOOD 1 <SEE NOTE> Abnormal 1 Type & Screen -Incl Blood Type,Tye,AB SC 05/08/2021 [place] [address] [phone] Blood Type O POSITIVE Normal AB Screen (Indirect Farooq)Vis NEGATIVE Normal Laboratory test finding 05/08/2021 Patient Service Center [place] [id number] [phone] Packed Cells TRANSFUSED PRODU <SEE NOTE> 2 Retic (Reticulocyte Count) 05/05/2021 [place] [address] [phone] Reticulocyte % 5.9 % High 0.5-1.5 Reticulocyte # 119.8 10 High 17-77 Retic Hemoglobin Equivalent 30.7 pg Normal 24-36 Prothrombin Time/Inr 05/05/[address] [place] [address] [phone] Prothrombin Time 14.0 seconds Normal 12.7-14.5 Inr 1.04 Normal 3 Laboratory test finding 05/05/2021 [place] [address] [phone] Partial Thromboplastin Time 24.9 seconds Low 25 .9-37.0 Platelet Function Analysis 05/05/2021 [place] [address] [phone] Collagen Epinephrine TNP seconds Normal 74-162 4 Laboratory test finding 05/05/2021 [place] [address] [phone] LDH Lactate Dehydrogenase 128 U/L Normal 84-246 Haptoglobin 214 mg/dL Normal 41-333 5 Factor VIII Panel 05/05/2021 Patient Service [place] [address] [phone] F8 Activity For F8 Panel 214 % High 56-140 6 F8 Antigen For F8 Panel 115 % Normal 50-200 7 F8 Activity vWB For F8 Panel 71 % Normal 50-200 Interpretation: Note Normal . 8 CBC With Differential 05/05/2021 [place] [address] [phone] White Blood Count 5.1 10 Normal 4.0-10.0 [...] 36.0-66.0 Lymph % 6.3 % Low 24.0-44.0 Hamlin % 11.5 % High 2.0-8.0 Eos % 0.8 % Normal 0.0-3.0 Baso % 0.4 % Normal 0.0-1.0 Immature Granulocyte % 0.6 % Normal 0-3.0 Nucleated Red Blood Cell % 0.0 % Normal 0-0 Neutrophils # 4.1 10 Normal 1.5-8.5 Lymph # 0.3 10 Low 1.5-5.0 Hamlin # 0.6 10 Normal 0.0-0.8 Eos # 0.0 10 Normal 0.0-0.5 Baso # 0.0 10 Normal 0.0-0.2 Type & Screen -Incl Blood Type,Tye,AB SC 05/05/2021 [place] [address] [phone] Blood Type O POSITIVE Normal AB Screen (Indirect Farooq)Vis NEGATIVE Normal Laboratory test finding 05/05/2021 [place] [address] [phone] Packed Cells TRANSFUSED PRODU <SEE NOTE> 9 CBC With Differential 04/27/2021 [place] [address] [phone] White Blood Count 4.2 10 Normal 4.0-10.0 [...] 36.0-66.0 Lymph % 8.1 % Low 24.0-44.0 Hamlin % 12.8 % High 2.0-8.0 Eos % 1.0 % Normal 0.0-3.0 Baso % 0.2 % Normal 0.0-1.0 Immature Granulocyte % 0.5 % Normal 0-3.0 Nucleated Red Blood Cell % 0.0 % Normal 0-0 Neutrophils # 3.3 10 Normal 1.5-8.5 Lymph # 0.3 10 Low 1.5-5.0 Hamlin # 0.5 10 Normal 0.0-0.8 Eos # 0.0 10 Normal 0.0-0.5 Baso # 0.0 10 Normal 0.0-0.2 CBC With Differential 04/20/2021 Patient Service [place], [place] 2523458 [phone] White Blood Count 3.9 10 Low 4.0-10.0 [...] 36.0-66.0 Lymph % 8.8 % Low 24.0-44.0 Hamlin % 11.9 % High 2.0-8.0 Eos % 1.0 % Normal 0.0-3.0 Baso % 0.5 % Normal 0.0-1.0 Immature Granulocyte % 0.8 % Normal 0-3.0 Nucleated Red Blood Cell % 0.0 % Normal 0-0 Neutrophils # 3.0 10 Normal 1.5-8.5 Lymph # 0.3 10 Low 1.5-5.0 Hamlin # 0.5 10 Normal 0.0-0.8 Eos # 0.0 10 Normal 0.0-0.5 Baso # 0.0 10 Normal 0.0-0.2 CBC With Differential 04/12/2021 [place] [address] [phone] White Blood Count 4.6 10 Normal 4.0-10.0 [...] 36.0-66.0 Lymph % 6.6 % Low 24.0-44.0 Hamlin % 9.4 % High 2.0-8.0 Eos % 0.9 % Normal 0.0-3.0 Baso % 0.2 % Normal 0.0-1.0 Immature Granulocyte % 0.4 % Normal 0-3.0 Nucleated Red Blood Cell % 0.0 % Normal 0-0 Neutrophils # 3.8 10 Normal 1.5-8.5 Lymph # 0.3 10 Low 1.5-5.0 Hamlin # 0.4 10 Normal 0.0-0.8 Eos # 0.0 10 Normal 0.0-0.5 Baso # 0.0 10 Normal 0.0-0.2 Coronavirus 2019 Nasopharygeal 04/10/2021 [place] [address] [phone] Coronavirus 2019 Nasopharygeal ASSAY INFORMATIO <SEE N OTE> 10 Type & Screen -Incl Blood Type,Tye,AB SC 04/07/2021 [place] [address] [phone] Blood Type O POSITIVE Normal AB Screen (Indirect Farooq)Vis NEGATIVE Normal Laboratory test finding 04/07/2021 Patient Service [place] [phone] Packed Cells TRANSFUSED PRODU <SEE NOTE> 11 CBC With Differential 04/07/2021 [place] [address] [phone] White Blood Count 3.4 10 Low 4.0-10.0 [...] 36.0-66.0 Lymph % 8.5 % Low 24.0-44.0 Hamlin % 10.9 % High 2.0-8.0 Eos % 0.9 % Normal 0.0-3.0 Baso % 0.6 % Normal 0.0-1.0 Immature Granulocyte % 0.6 % Normal 0-3.0 Nucleated Red Blood Cell % 0.0 % Normal 0-0 Neutrophils # 2.7 10 Normal 1.5-8.5 Lymph # 0.3 10 Low 1.5-5.0 Hamlin # 0.4 10 Normal 0.0-0.8 Eos # 0.0 10 Normal 0.0-0.5 Baso # 0.0 10 Normal 0.0-0.2 Total Iron Binding Capacit 04/07/2021 [place] [address] [phone] Iron (Fe) 48 g/dL Low 50-170 Total Iron Binding Capacity 353 g/dL Normal 250-450 Percent Saturation 13.6 % Normal 13.2-45.0 Comprehensive Metabolic Profil 04/07/2021 [place] [address] [phone] Glucose, Fasting 184 mg/dL High 70-100 Blood [...] Laboratory test finding 04/07/2021 Patient Service [facility] [place], [place] [phone] Carcinoembryonic Antigen < 0.5 NG/ML Normal <2.5 13 Ferritin 66 NG/ML Normal 8-252 Comprehensive Metabolic Profil 03/24/2021 [place] [address] [phone] Glucose, Fasting 96 mg/dL Normal 70-100 Blood [...] Covid Amp 03/24/2021 [place] [address] [phone] Influenza A Amplification NEGATIVE Normal Negati ve 15 Influenza B Amplification NEGATIVE Normal Negative 16 RSV Amplification NEGATIVE Normal Negative 17 Sars Covid-19 Amplification NEGATIVE Normal Negative 18 Laboratory test finding 03/24/2021 [place] [address] [phone] Packed Cells TRANSFUSED PRODU <SEE NOTE> 19 CBC With Differential 03/24/2021 [place] [address] [phone] White Blood Count 4.6 10 Normal 4.0-10.0 [...] 36.0-66.0 Lymph % 6.2 % Low 24.0-44.0 Hamlin % 11.4 % High 2.0-8.0 Eos % 0.4 % Normal 0.0-3.0 Baso % 0.4 % Normal 0.0-1.0 Immature Granulocyte % 0.4 % Normal 0-3.0 Nucleated Red Blood Cell % 0.7 % High 0-0 Neutrophils # 3.7 10 Normal 1.5-8.5 Lymph # 0.3 10 Low 1.5-5.0 Hamlin # 0.5 10 Normal 0.0-0.8 Eos # 0.0 10 Normal 0.0-0.5 Baso # 0.0 10 Normal 0.0-0.2 Hemoglobin A1c 03/17/2021 [facility] [address] [place] [address] [phone] Hemoglobin A1c 4.8 % 4.8-5.6 20 Albumin/Creatinine Ratio, Random Urine 03/17/2021 [facility] [address] [place] [address] [phone] Creatinine, Urine 120.2 mg/dL Not Estab. Albumin, Urine 20.1 ug/mL Not Estab. Alb/Creat Ratio 17 mg/gcreat 0-29 21 Lipid Panel 03/17/2021 [facility] [address] [place] [address] [phone] Cholesterol, Total 123 mg/dL 100-199 Triglycerides 141 mg/dL 0-149 HDL Cholesterol 37 mg/dL Low >39 VLDL Cholesterol Mark 25 mg/dL 5-40 LDL Chol Calc ([facility]) 61 mg/dL 0-99 Comment: TNP Metabolic Panel (14), Comprehensive 03/17/[address] [facility] [address] [place] [address] [phone] Calcium 9.5 mg/dL 8.7-10.3 Glucose 81 mg/dL [...] [facility] [place] [address] [phone] White Blood Count 4.0 10 Normal 4.0-10.0 [...] 36.0-66.0 Lymph % 6.8 % Low 24.0-44.0 Hamlin % 9.3 % High 2.0-8.0 Eos % 1.0 % Normal 0.0-3.0 Baso % 0.8 % Normal 0.0-1.0 Immature Granulocyte % 0.3 % Normal 0-3.0 Nucleated Red Blood Cell % 0.0 % Normal 0-0 Neutrophils # 3.3 10 Normal 1.5-8.5 Lymph # 0.3 10 Low 1.5-5.0 Hamlin # 0.4 10 Normal 0.0-0.8 Eos # 0.0 10 Normal 0.0-0.5 Baso # 0.0 10 Normal 0.0-0.2 Type & Screen -Incl Blood Type,Tye,AB SC 03/14/2021 [place] [address] [phone] Blood Type O POSITIVE Normal AB Screen (Indirect Farooq)Vis NEGATIVE Normal Laboratory test finding 03/14/2021 [place] [address] [phone] Packed Cells TRANSFUSED PRODU <SEE NOTE> 24 CBC With Differential 03/10/2021 [place] [address] [phone] White Blood Count 3.4 10 Low 4.0-10.0 [...] 36.0-66.0 Lymph % 7.6 % Low 24.0-44.0 Hamlin % 12.9 % High 2.0-8.0 Eos % 1.2 % Normal 0.0-3.0 Baso % 0.6 % Normal 0.0-1.0 Immature Granulocyte % 0.3 % Normal 0-3.0 Nucleated Red Blood Cell % 0.0 % Normal 0-0 Neutrophils # 2.6 10 Normal 1.5-8.5 Lymph # 0.3 10 Low 1.5-5.0 Hamlin # 0.4 10 Normal 0.0-0.8 Eos # 0.0 10 Normal 0.0-0.5 Baso # 0.0 10 Normal 0.0-0.2 Comprehensive Metabolic Profil 03/10/2021 Patient S [place] [id number] [phone] Glucose, Fasting 166 mg/dL High 70-100 Blood [...] Iron Binding Capacit 03/10/2021 [place] [address] [phone] Iron (Fe) 72 g/dL Normal 50-170 Total Iron Binding Capacity 352 g/dL Normal 250-450 Percent Saturation 20.5 % Normal 13.2-45.0 Laboratory test finding 03/10/2021 [place] [address] [phone] Carcinoembryonic Antigen < 0.5 NG/ML Normal <2.5 26 Ferritin 492 NG/ML High 8-252 Type & Screen -Incl Blood Type,Tye,AB SC 02/28/2021 [place] [address] [phone] Blood Type O POSITIVE Normal AB Screen (Indirect Farooq)Vis NEGATIVE Normal Laboratory test finding 02/28/2021 [place] [address] [phone] Packed Cells TRANSFUSED PRODU <SEE NOTE> 27 Laboratory test finding 02/27/2021 Patient Service [place] [id number] [phone] Blood Urea Nitrogen 26 mg/dL High 7-18 Creatinine With GFR 02/27/2021 [place] [address] [phone] Creatinine For GFR 0.76 mg/dL Normal 0.55-1.30 Glomerular Filtration Rate > 60.0 Normal >32 2 8 Total Iron Binding Capacit 02/27/2021 [place] [address] [phone] Iron (Fe) 79 g/dL Normal 50-170 Total Iron Binding Capacity 384 g/dL Normal 250-450 Percent Saturation 20.6 % Normal 13.2-45.0 Laboratory test finding 02/27/2021 [place] [address] [phone] Ferritin 1039 NG/ML High 8-252 CBC With Differential 02/27/2021 [place] [address] [phone] White Blood Count 6.0 10 Normal 4.0-10.0 [...] 36.0-66.0 Lymph % 4.7 % Low 24.0-44.0 Hamlin % 11.6 % High 2.0-8.0 Eos % 0.5 % Normal 0.0-3.0 Baso % 0.3 % Normal 0.0-1.0 Immature Granulocyte % 0.8 % Normal 0-3.0 Nucleated Red Blood Cell % 0.3 % High 0-0 Neutrophils # 4.9 10 Normal 1.5-8.5 Lymph # 0.3 10 Low 1.5-5.0 Hamlin # 0.7 10 Normal 0.0-0.8 Eos # 0.0 10 Normal 0.0-0.5 Baso # 0.0 10 Normal 0.0-0.2 Laboratory test finding 02/10/2021 Patient Service [place] 3958384 [phone] Packed Cells TRANSFUSED PRODU <SEE NOTE> 29 Type & Screen -Incl Blood Type,Tye,AB SC 02/10/2021 [place] [address] [phone] Blood Type O POSITIVE Normal AB Screen (Indirect Farooq)Vis NEGATIVE Normal CBC With Differential 02/09/2021 [place] [address] [phone] White Blood Count 3.9 10 Low 4.0-10.0 [...] 36.0-66.0 Lymph % 7.2 % Low 24.0-44.0 Hamlin % 10.0 % High 2.0-8.0 Eos % 1.0 % Normal 0.0-3.0 Baso % 0.5 % Normal 0.0-1.0 Immature Granulocyte % 0.5 % Normal 0-3.0 Nucleated Red Blood Cell % 0.0 % Normal 0-0 Neutrophils # 3.1 10 Normal 1.5-8.5 Lymph # 0.3 10 Low 1.5-5.0 Hamlin # 0.4 10 Normal 0.0-0.8 Eos # 0.0 10 Normal 0.0-0.5 Baso # 0.0 10 Normal 0.0-0.2 Total Iron Binding Capacit 01/27/2021 [place] [address] [phone] Iron (Fe) 59 g/dL Normal 50-170 Total Iron Binding Capacity 397 g/dL Normal 250-450 Percent Saturation 14.9 % Normal 13.2-45.0 Laboratory test finding 01/27/2021 Patient Service [facility] [place], [place] 7986224 [phone] Ferritin 39 NG/ML Normal 8-252 Carcinoembryonic Antigen 0.5 NG/ML Normal <2.5 30 Comprehensive Metabolic Profil 01/27/2021 Patient S ervice [place], [place] 3780523 [phone] Glucose, Fasting 59 mg/dL Low 70-100 Blood [...] CBC With Differential 01/27/2021 [place] [address] [phone] White Blood Count 4.2 10 Normal 4.0-10.0 [...] 36.0-66.0 Lymph % 13.6 % Low 24.0-44.0 Hamlin % 14.6 % High 2.0-8.0 Eos % 1.4 % Normal 0.0-3.0 Baso % 0.5 % Normal 0.0-1.0 Immature Granulocyte % 0.5 % Normal 0-3.0 Nucleated Red Blood Cell % 0.0 % Normal 0-0 Neutrophils # 2.9 10 Normal 1.5-8.5 Lymph # 0.6 10 Low 1.5-5.0 Hamlin # 0.6 10 Normal 0.0-0.8 Eos # 0.1 10 Normal 0.0-0.5 Baso # 0.0 10 Normal 0.0-0.2 Complete Blood Count 01/20/2021 Patient Service [place] [facility] RADIOLOGY [place], [place] 3383734 [phone] White Blood Count 3.3 10 Low 4.0-10.0 [...] 0-0 Laboratory test finding 01/20/2021 [place] [address] [phone] Blood Urea Nitrogen 21 mg/dL High 7-18 Creatinine With GFR 01/20/2021 [place] [address] [phone] Creatinine For GFR 0.69 mg/dL Normal 0.55-1.30 Glomerular Filtration Rate > 60.0 Normal >32 3 2 Type & Screen -Incl Blood Type,Tye,AB SC 01/20/2021 [place] [address] [phone] Blood Type O POSITIVE Normal AB Screen (Indirect Farooq)Vis NEGATIVE Normal Coronavirus 2019 Nasopharygeal 01/16/2021 [place] [address] [phone] Coronavirus 2019 Nasopharygeal ASSAY INFORMATIO <SEE N OTE> 33 Type & Screen -Incl Blood Type,Tye,AB SC 01/03/2021 [place] [address] [phone] Blood Type O POSITIVE Normal AB Screen (Indirect Farooq)Vis NEGATIVE Normal Laboratory test finding 01/03/2021 Patient Service [place] 3958395 [phone] Packed Cells TRANSFUSED PRODU <SEE NOTE> 34 CBC With Differential 01/02/2021 [place] [address] [phone] White Blood Count 4.3 10 Normal 4.0-10.0 [...] 36.0-66.0 Lymph % 10.7 % Low 24.0-44.0 Hamlin % 13.1 % High 2.0-8.0 Eos % 0.7 % Normal 0.0-3.0 Baso % 0.5 % Normal 0.0-1.0 Immature Granulocyte % 0.5 % Normal 0-3.0 Nucleated Red Blood Cell % 0.0 % Normal 0-0 Neutrophils # 3.2 10 Normal 1.5-8.5 Lymph # 0.5 10 Low 1.5-5.0 Hamlin # 0.6 10 Normal 0.0-0.8 Eos # 0.0 10 Normal 0.0-0.5 Baso # 0.0 10 Normal 0.0-0.2 Laboratory test finding 01/02/2021 [place] [address] [phone] Thyroid Stimulating Hormone 1.660 uIU/ML Normal 0. 358-3.740 Free T4 0.87 ng/dL Normal 0.76-1.46 Ferritin 58 NG/ML Normal 8-252 Comprehensive Metabolic Profil 01/02/2021 [facility] [place] [facility] [place] [address] [phone] Glucose, Fasting 155 mg/dL High 70-100 Blood [...] Binding Capacit 01/02/2021 [place] [address] [phone] Iron (Fe) 55 g/dL Normal 50-170 Total Iron Binding Capacity 398 g/dL Normal 250-450 Percent Saturation 13.8 % Normal 13.2-45.0 Laboratory test finding 12/23/2020 [place] [address] [phone] iSTAT Troponin 0.01 NG/ML Normal 0.00-0.08 Istat Chem8+ Panel 12/23/2020 [place] [address] [phone] iSTAT HCT 33.0 % Low 38.0-51.0 iSTAT Glucose 94 mg/dL Normal 70-105 iSTAT Sodium 138 mEq/L Normal 136-145 iSTAT Potassium 4.2 mEq/L Normal 3.5-5.1 iSTAT CA++ 5.0 mg/dL Normal 4.5-5.3 iSTAT Chloride 102 mEq/L Normal 98-109 iSTAT Co2 27.0 MM/L Normal 23.0-27.0 iSTAT BUN 20 mg/dL Normal 8-26 iSTAT Creatinine 0.7 mg/dL Normal 0.6-1.3 CBC With Differential 12/23/2020 [place] [address] [phone] White Blood Count 4.5 10 Normal 4.0-10.0 [...] 36.0-66.0 Lymph % 9.7 % Low 24.0-44.0 Hamlin % 11.9 % High 2.0-8.0 Eos % 0.9 % Normal 0.0-3.0 Baso % 0.4 % Normal 0.0-1.0 Immature Granulocyte % 0.4 % Normal 0-3.0 Nucleated Red Blood Cell % 0.0 % Normal 0-0 Neutrophils # 3.5 10 Normal 1.5-8.5 Lymph # 0.4 10 Low 1.5-5.0 Hamlin # 0.5 10 Normal 0.0-0.8 Eos # 0.0 10 Normal 0.0-0.5 Baso # 0.0 10 Normal 0.0-0.2 PT & Aptt 12/23/2020 [place] [address] [phone] Prothrombin Time 13.3 seconds Normal 12.5-14.3 Inr 0.99 Normal 36 Partial Thromboplastin Time 29.5 seconds Normal 24.2-38.5 Liver Profile 12/23/2020 [place] [address] [phone] Ast/Sgot 13 U/L Normal 7-37 Alt/SGPT 14 U/L Normal 12-78 Alkaline Phosphatase 95 U/L Normal 45-117 Bilirubin,Total 0.9 mg/dL Normal 0.2-1.0 Bilirubin,Direct 0.3 mg/dL High 0.0-0.2 Total Protein 6.5 GM/DL Normal 6.4-8.2 Albumin 3.4 GM/DL Normal 3.2-5.2 Albumin/Globulin Ratio 1.1 Low 1.2-2.2 Laboratory test finding 12/23/2020 [place] [address] [phone] Lipase 73 U/L Normal 73-393 Lactic Acid Sepsis Protocol 0.8 mmol/L Normal 0.4-2.0 37 CBC With Differential 12/19/2020 [place] [address] [phone] White Blood Count 3.8 10 Low 4.0-10.0 [...] 36.0-66.0 Lymph % 11.7 % Low 24.0-44.0 Hamlin % 11.9 % High 2.0-8.0 Eos % 1.1 % Normal 0.0-3.0 Baso % 0.3 % Normal 0.0-1.0 Immature Granulocyte % 0.5 % Normal 0-3.0 Nucleated Red Blood Cell % 0.0 % Normal 0-0 Neutrophils # 2.8 10 Normal 1.5-8.5 Lymph # 0.4 10 Low 1.5-5.0 Hamlin # 0.5 10 Normal 0.0-0.8 Eos # 0.0 10 Normal 0.0-0.5 Baso # 0.0 10 Normal 0.0-0.2 CBC With Differential 12/05/2020 [place] [address] [phone] White Blood Count 3.4 10 Low 4.0-10.0 [...] 36.0-66.0 Lymph % 12.8 % Low 24.0-44.0 Hamlin % 13.7 % High 2.0-8.0 Eos % 1.2 % Normal 0.0-3.0 Baso % 0.6 % Normal 0.0-1.0 Immature Granulocyte % 0.3 % Normal 0-3.0 Nucleated Red Blood Cell % 0.0 % Normal 0-0 Neutrophils # 2.4 10 Normal 1.5-8.5 Lymph # 0.4 10 Low 1.5-5.0 Hamlin # 0.5 10 Normal 0.0-0.8 Eos # 0.0 10 Normal 0.0-0.5 Baso # 0.0 10 Normal 0.0-0.2 Laboratory test finding 12/05/2020 [place] [address] [phone] Ferritin 108 NG/ML Normal 8-252 Total Iron Binding Capacit 12/05/2020 [place] [address] [phone] Iron (Fe) 94 g/dL Normal 50-170 Total Iron Binding Capacity 350 g/dL Normal 250-450 Percent Saturation 26.9 % Normal 13.2-45.0 PT & Aptt 12/05/2020 [place] [address] [phone] Prothrombin Time 13.3 seconds Normal 12.5-14.3 Inr 0.99 Normal 38 Partial Thromboplastin Time 29.4 seconds Normal 24.2-38.5 PT & Aptt 11/25/2020 [place] [address] [phone] Prothrombin Time 16.4 seconds High 12.5-14.3 Inr 1.29 Normal 39 Partial Thromboplastin Time 33.4 seconds Normal 24.2-38.5 Complete Blood Count 11/25/2020 [place] [address] [phone] White Blood Count 4.4 10 Normal 4.0-10.0 [...] 0-0 Comprehensive Metabolic Profil 11/25/2020 [place] [address] [phone] Glucose, Fasting 110 mg/dL High 70-100 Blood [...] 1.2-2.2 Cardiac Marker Panel 11/25/2020 [place] [address] [phone] CPK Creatine Phosphokinase 60 U/L Normal 26-19 2 CK-MB Value Mass 1.3 NG/ML Normal <3.6 MB/CK Relative Index 2.17 Normal < Or =4 41 Troponin I < 0.02 NG/ML Normal < 0.10 42 Laboratory test finding 11/25/2020 Patient Service [facility] [place], [place] 7294843 [phone] NT-Pro BNP 1795 pg/mL High <450 Type & Screen -Incl Blood Type,Tye,AB SC 11/25/2020 Patient Service [facility] [place], [place] 5106472 [phone] Blood Type O POSITIVE Normal AB Screen [...] T O hct <35% 5 Performed at: [facility] [address] [id number] Vocational Adviser: Matt Mcdonnell MD, Phone: [phone] Performed at: [facility] [address] [place] [address] [address], [place], [place] [id number] Vocational Adviser: Gary Youngblood MD, Phone: [phone] Performed at: [facility] [address] [id number] Vocational Adviser: Teresa Nguyen MD, Phone: [phone] FVIII activity can increase in a [...] developed and its performance characteristics determined by [facility]. It has not been cleared or approved [...] cofactor activity; FVIII - factor VIII activity. COSMETIC COUNSELOR: For questions regarding panel interpretation, please contact Mikal Wasserman M.D. at [facility] at . DISCLAIMER These assessments and [...] (1) The National Heart, Lung and [facility] [place]. The Diagnosis, Evaluation and Management of von Willebrand Disease. Penelope, MD: National Institutes of Health Publication 08-5832. [...] passenger travel. Testing and International Air Travel, cdc.gov/coronavirus/2019-ncov/travelers/sbdykyl-twe-nrwqtj.html 09/01/2020 NOTE: The COVID-19 assay is under Emergency Use Authorization (EUA) by the U.S. Food and Drug Administration. [employer] and [facility] are designated as high complexity laboratories by [...] Little GFR Left ESRD GFR <15 on [facility] 13 THE CEA ASSAY IS PERFORMED O N THE [employer] BY CHEMILUMINESCENCE AND SHOULD NOT BE COMPARED [...] Little GFR Left ESRD GFR <15 on [facility] 15 Negative results do not prec lude [...] pathogens. DISCLAIMER: Testing was performed using the [employer] SARS-CoV-2 test. This test was developed and its performance characteristics determined by [employer]. This test has not been FDA cleared [...] Little GFR Left ESRD GFR <15 on [facility] 26 THE CEA ASSAY IS PERFORMED O N THE [employer] BY CHEMILUMINESCENCE AND SHOULD NOT BE COMPARED [...] Little GFR Left ESRD GFR <15 on [facility] 29 TRANSFUSED PRODUCT: PACKED C ELLS COUNT: [...] Little GFR Left ESRD GFR <15 on [facility] 32 Units are mL/min/1.73 m2 Chronic Kidney Disease Staging per NKF: Stage I & II GFR >=60 Normal to Mildly Decreased Stage III GFR 30-59 Moderately Decreased Stage IV GFR 15-29 Severely Decreased Stage V GFR <15 Very Little GFR Left ESRD GFR <15 on [facility] ASSAY INFORMATION: Real Time RT-PCR NOTE: The COVID-19 assay has been cleared by the U.S. Food and Drug Administration under the Emergency Use Authorization (EUA). [email or web address] and [facility] are designated as high complexity laboratories by [...] Little GFR Left ESRD GFR <15 on [facility] 36 THERAPUTIC HUMAN INR VALUES INDICATIONS NORMAL [...] Little GFR Left ESRD GFR <15 on [facility] 41 DIAGNOSIS CRITERIA MMB ng/ml Relative Index (RI) NON-AMI < or = 5 N/A LEVINE ZONE > 5 < or = 4 AMI > 5 > 4 42 Troponin I Reference Interva l for [employer] LOCI: 99th Percentile= 0.00-0.045 ng/ml Risk Stratification: <= 0.10 ng/ml Decreased Risk for Adverse Clinical Events. 0.10-1.50 ng/ml Increased Risk for Adv erse Clinical Events. Evaluation of additional criterion and/or repeat testing in 2-6 hours is suggested to rule out myocardial damage. >= 1.50 ng/ml Indicative of Myocardial Injury. Procedures Date Code Description Status 03/28/2021 [id number] [place] W/I 7 Days Of DC, Comm W/I 2 Dys Completed 03/23/2021 [id number] Office/Outpatient Established Mo d MDM 30-39 Min Completed 03/23/2021 [id number] Diabetic Foot Exam Completed 01/25/2021 [id number] [place] W/I 7 Days Of DC, Comm W/I 2 Dys Completed 12/27/2020 [id number] Office/Outpatient Established Mo d MDM 30-39 Min Completed 12/19/2020 [id number] Office/Outpatient Established Mo d MDM 30-39 Min Completed 12/02/2020 [id number] [place] W/I 7 Days Of DC, [...] Visit 01/25/2021 2:15p Main Office P[place] Nadiya, ACCESS TECH D64.9 Anemia, unspecified K29.61 Other gastritis with bleedin g Office Visit 12/27/2020 3:45p Main Office Anitha Gamez M.D. 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 D64.9 Anemia, unspecified Office Visit 12/19/2020 2:15p Main Office P[place]kach, Nadiya, ACCESS TECH E11.6 9 Type 2 diabetes mellitus with other specified complication E78.2 Mixed hyperlipidemia I10 Essential (primary) hyperten yara 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 C18.9 Malignant neoplasm of colon, unspecified I48.91 Unspecified atrial fibrillat ion Office Visit 12/02/2020 10:30a Main Office [place] Nadiya, ACCESS TECH D64.9 Anemia, unspecified E11.69 Type 2 diabetes mellitus wit h other specified complication E78.2 Mixed hyperlipidemia I10 Essential (primary) hyperten yara 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 C18.9 Malignant neoplasm of colon, unspecified I48.91 Unspecified atrial fibrillat ion Assessments Date Code Description Provider 03/28/2021 D64.9 Anemia, unspecified P[place], Mo lly, [facility] 03/28/2021 K29.61 Other gastritis with bleeding Pl Nadiya hogan, ACCESS TECH 03/23/2021 E11.69 Type 2 diabetes mellitus with ot her specified complication Pleskach, Nadiya, ACCESS TECH 03/23/2021 C18.9 Malignant neoplasm of colon, uns pecified Pleskach, Nadiya, ACCESS TECH 03/23/2021 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 Plegud[place] Nadiya , ACCESS TECH 03/23/2021 E78.2 Mixed hyperlipidemia Chayo Bryan, ACCESS TECH 03/23/2021 I10 Essential (primary) hypertension [place] Nadiya, ACCESS TECH 03/23/2021 I48.91 Unspecified atrial fibrillation Pleskach, Nadiya, ACCESS TECH 03/23/2021 D64.9 Anemia, unspecified P[place]kach, Mo lly, ACCESS TECH 01/25/2021 D64.9 Anemia, unspecified P[place], Mo lly, ACCESS TECH 01/25/2021 K29.61 Other gastritis with bleeding Pl Nadiya hogan, ACCESS TECH 12/27/2020 E11.69 Type 2 diabetes mellitus with ot her specified complication Anitha Gamez M.D. 12/27/2020 C18.9 Malignant neoplasm of colon, uns pecified Anitha Gamez M.D. 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 12/27/2020 D64.9 Anemia, unspecified Angela Gamez M.D. 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[place] Nadiya, ACCESS TECH 12/19/2020 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 Plealexy Nadiya , ACCESS TECH 12/19/2020 C18.9 Malignant neoplasm of colon, uns pecified [place] Nadiya, ACCESS TECH 12/19/2020 I48.91 Unspecified atrial fibrillation [place] Nadiya, ACCESS TECH 12/02/2020 D64.9 Anemia, unspecified [place] Mo lljania, ACCESS TECH 12/02/2020 E11.69 Type 2 diabetes mellitus with ot her specified complication Pleskach, Nadiya, ACCESS TECH 12/02/2020 E78.2 Mixed hyperlipidemia [place] M jarocho, ACCESS TECH 12/02/2020 I10 Essential (primary) hypertension Pleskach, Nadiya, ACCESS TECH 12/02/2020 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 [place] Nadiya , ACCESS TECH 12/02/2020 C18.9 Malignant neoplasm of colon, uns pecified Pleskach, Nadiya, ACCESS TECH 12/02/2020 I48.91 Unspecified atrial fibrillation GalinaachNadiya, ACCESS TECH Plan of Treatment Future Appointment(s):* 06/22/2021 3:30 pm - Nadiya Bryan FNP at Main Office 03/28/2021 - aNdiya Bryan ACCESS TECH* D64.9 Anemia, unspecified* Comments:* following with hematology, [...]
--- OUTSIDE RECORDS SUMMARY | 2021-05-23 16:55 | CCD | Continuity of Care Document ---
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 AUTM [phone] [facility] AUTM Jeff Cramer AUTM [phone] Problems Active Problems Provider Date Type 2 diabetes mellitus Edmond Hood M.D. Onset: 0 10/31/2010 Essential hypertension Edmond Hood M.D. Onset: Mixed hyperlipidemia Edomnd Hood M.D. Onset: 10/31 Ileostomy present Nadiya [...] 236units C18.9 Nadiya Bryan FNP 06/16/2020 Z93.2 Anmoore Remover Wipes Misc use 3-4 wipes every 4 days and as needed when changing ostomy 2Box Z93.2 Nadiya Bryan FNP 06/16/2020 C18.9 Efren Adapt Ceraing change every 4-5 days and as needed ref #[id number] 20units Nadiya Bryan FNP 05/05/2020 Valentines 2 Piece Ostomy Skin Barrier ref # [id number] márquez ge every 4-5 days and as needed 20units C18.9 Nadiya Bryan FNP 04/14/2020 Z93.2 Valentines 2 Piece Drainable Ostomy Pouch ref # [id number] c hange every 4-5 days and as [...] CPT Code Status Date Vaccine Lot # [id number] Refused 04/17/2016 Pneumococcal Vaccine 14469 Refused 04/17/2016 Prevnar 13 67153 Refused 04/17/2016 Influenza Vaccination Vital Signs Date Vital Result Comment 03/28/2021 11:51am BP Systolic 113 mmHg BP Diastolic 83 mmHg Heart Rate 127 /min Body Temperature 98.0 F Respiratory Rate 18 /min Height 61.5 inches 5'1.50" Weight 114.38 lb O2 % BldC Oximetry 100 % Henderson Body Weight 105 lb BMI (Body Mass Index) 21.3 kg/m2 03/23/2021 3:47pm BP Systolic 110 mmHg BP Diastolic 62 mmHg Heart Rate 64 /min Body Temperature 98.7 F Respiratory Rate 16 /min Height 61.5 inches 5'1.50" Weight 116.38 lb O2 % BldC Oximetry 99 % Henderson Body Weight 105 lb BMI (Body Mass Index) 21.6 kg/m2 Results Test Acquired Date Facility Test Result H/L Range Note Type & Screen -Incl Blood Type,Tye,AB SC 05/08/2021 Patient Service [place] [id number] [phone] Blood Type O POSITIVE Normal AB Screen (Indirect Farooq)Vis NEGATIVE Normal Laboratory test finding 05/08/2021 [place] [address] [phone] Packed Cells TRANSFUSED PRODU <SEE NOTE> 1 Occult Blood 05/08/2021 [place] [address] [phone] Occult Blood OCCULT BLOOD 1 <SEE NOTE> Abnormal 2 CBC With Differential 05/08/2021 [place] [address] [phone] White Blood Count 4.8 10 Normal 4.0-10.0 [...] 36.0-66.0 Lymph % 5.2 % Low 24.0-44.0 Mccracken % 11.2 % High 2.0-8.0 Eos % 1.4 % Normal 0.0-3.0 Baso % 0.4 % Normal 0.0-1.0 Immature Granulocyte % 0.4 % Normal 0-3.0 Nucleated Red Blood Cell % 0.0 % Normal 0-0 Neutrophils # 3.9 10 Normal 1.5-8.5 Lymph # 0.3 10 Low 1.5-5.0 Mccracken # 0.5 10 Normal 0.0-0.8 Eos # 0.1 10 Normal 0.0-0.5 Baso # 0.0 10 Normal 0.0-0.2 CBC With Differential 05/05/2021 Patient Service [place] [id number] [phone] White Blood Count 5.1 10 Normal 4.0-10.0 [...] 36.0-66.0 Lymph % 6.3 % Low 24.0-44.0 Mccracken % 11.5 % High 2.0-8.0 Eos % 0.8 % Normal 0.0-3.0 Baso % 0.4 % Normal 0.0-1.0 Immature Granulocyte % 0.6 % Normal 0-3.0 Nucleated Red Blood Cell % 0.0 % Normal 0-0 Neutrophils # 4.1 10 Normal 1.5-8.5 Lymph # 0.3 10 Low 1.5-5.0 Mccracken # 0.6 10 Normal 0.0-0.8 Eos # 0.0 10 Normal 0.0-0.5 Baso # 0.0 10 Normal 0.0-0.2 Laboratory test finding 05/05/2021 [place] [address] [phone] Packed Cells TRANSFUSED PRODU <SEE NOTE> 3 Type & Screen -Incl Blood Type,Tye,AB SC 05/05/2021 [place] [address] [phone] Blood Type O POSITIVE Normal AB Screen (Indirect Farooq)Vis NEGATIVE Normal Laboratory test finding 05/05/2021 [place] [address] [phone] LDH Lactate Dehydrogenase 128 U/L Normal 84-246 Platelet Function Analysis 05/05/2021 [place] [address] [phone] Collagen Epinephrine TNP seconds Normal 74-162 4 Laboratory test finding 05/05/2021 [place] [address] [phone] Partial Thromboplastin Time 24.9 seconds Low 25 .9-37.0 Prothrombin Time/Inr 05/05/2021 [place] [address] [phone] Prothrombin Time 14.0 seconds Normal 12.7-14.5 Inr 1.04 Normal 5 Retic (Reticulocyte Count) 05/05/2021 [place] [address] [phone] Reticulocyte % 5.9 % High 0.5-1.5 Reticulocyte # 119.8 10 High 17-77 Retic Hemoglobin Equivalent 30.7 pg Normal 24-36 CBC With Differential 04/27/2021 [place] [address] [phone] White Blood Count 4.2 10 Normal 4.0-10.0 [...] 36.0-66.0 Lymph % 8.1 % Low 24.0-44.0 Mccracken % 12.8 % High 2.0-8.0 Eos % 1.0 % Normal 0.0-3.0 Baso % 0.2 % Normal 0.0-1.0 Immature Granulocyte % 0.5 % Normal 0-3.0 Nucleated Red Blood Cell % 0.0 % Normal 0-0 Neutrophils # 3.3 10 Normal 1.5-8.5 Lymph # 0.3 10 Low 1.5-5.0 Mccracken # 0.5 10 Normal 0.0-0.8 Eos # 0.0 10 Normal 0.0-0.5 Baso # 0.0 10 Normal 0.0-0.2 CBC With Differential 04/20/2021 Patient Service [place] [id number] [phone] White Blood Count 3.9 10 Low 4.0-10.0 [...] 36.0-66.0 Lymph % 8.8 % Low 24.0-44.0 Mccracken % 11.9 % High 2.0-8.0 Eos % 1.0 % Normal 0.0-3.0 Baso % 0.5 % Normal 0.0-1.0 Immature Granulocyte % 0.8 % Normal 0-3.0 Nucleated Red Blood Cell % 0.0 % Normal 0-0 Neutrophils # 3.0 10 Normal 1.5-8.5 Lymph # 0.3 10 Low 1.5-5.0 Mccracken # 0.5 10 Normal 0.0-0.8 Eos # 0.0 10 Normal 0.0-0.5 Baso # 0.0 10 Normal 0.0-0.2 CBC With Differential 04/12/2021 [place] [address] [phone] White Blood Count 4.6 10 Normal 4.0-10.0 [...] 36.0-66.0 Lymph % 6.6 % Low 24.0-44.0 Mccracken % 9.4 % High 2.0-8.0 Eos % 0.9 % Normal 0.0-3.0 Baso % 0.2 % Normal 0.0-1.0 Immature Granulocyte % 0.4 % Normal 0-3.0 Nucleated Red Blood Cell % 0.0 % Normal 0-0 Neutrophils # 3.8 10 Normal 1.5-8.5 Lymph # 0.3 10 Low 1.5-5.0 Mccracken # 0.4 10 Normal 0.0-0.8 Eos # 0.0 10 Normal 0.0-0.5 Baso # 0.0 10 Normal 0.0-0.2 Coronavirus 2019 Nasopharygeal 04/10/2021 [place] [id number] [phone] Coronavirus 2019 Nasopharygeal ASSAY INFORMATIO <SEE N OTE> 6 Type & Screen -Incl Blood Type,Tye,AB SC 04/07/2021 [place] [address] [phone] Blood Type O POSITIVE Normal AB Screen (Indirect Farooq)Vis NEGATIVE Normal Laboratory test finding 04/07/2021 [place] [address] [phone] Packed Cells TRANSFUSED PRODU <SEE NOTE> 7 CBC With Differential 04/07/2021 [place] [address] [phone] White Blood Count 3.4 10 Low 4.0-10.0 [...] 36.0-66.0 Lymph % 8.5 % Low 24.0-44.0 Mccracken % 10.9 % High 2.0-8.0 Eos % 0.9 % Normal 0.0-3.0 Baso % 0.6 % Normal 0.0-1.0 Immature Granulocyte % 0.6 % Normal 0-3.0 Nucleated Red Blood Cell % 0.0 % Normal 0-0 Neutrophils # 2.7 10 Normal 1.5-8.5 Lymph # 0.3 10 Low 1.5-5.0 Mccracken # 0.4 10 Normal 0.0-0.8 Eos # 0.0 10 Normal 0.0-0.5 Baso # 0.0 10 Normal 0.0-0.2 Total Iron Binding Capacit 04/07/2021 [place] [address] [phone] Iron (Fe) 48 g/dL Low 50-170 Total Iron Binding Capacity 353 g/dL Normal 250-450 Percent Saturation 13.6 % Normal 13.2-45.0 Comprehensive Metabolic Profil 04/07/2021 Patient S [place], [place] [address]3835 [phone] Glucose, Fasting 184 mg/dL High 70-100 Blood Urea Nitrogen 30 mg/dL High 7-18 Creatinine For GFR 0.81 mg/dL Normal 0.55-1.30 Glomerular Filtration Rate > 60.0 Normal >32 8 Sodium Level 141 mEq/L Normal 136-145 Potassium [...] Laboratory test finding 04/07/2021 [place] [address] [phone] Carcinoembryonic Antigen < 0.5 NG/ML Normal <2.5 9 Ferritin 66 NG/ML Normal 8-252 Comprehensive Metabolic Profil 03/24/2021 Patient S [place], [place] [id number] [phone] Glucose, Fasting 96 mg/dL Normal 70-100 Blood Urea Nitrogen 35 mg/dL High 7-18 Creatinine For GFR 0.78 mg/dL Normal 0.55-1.30 Glomerular Filtration Rate > 60.0 Normal >32 1 0 Sodium Level 141 mEq/L Normal 136-145 Potassium [...] Covid Amp 03/24/2021 [place] [address] [phone] Influenza A Amplification NEGATIVE Normal Negati ve 11 Influenza B Amplification NEGATIVE Normal Negative 12 RSV Amplification NEGATIVE Normal Negative 13 Sars Covid-19 Amplification NEGATIVE Normal Negative 14 Laboratory test finding 03/24/2021 [place] [address] [phone] Packed Cells TRANSFUSED PRODU <SEE NOTE> 15 CBC With Differential 03/24/2021 [place] [address] [phone] White Blood Count 4.6 10 Normal 4.0-10.0 [...] 36.0-66.0 Lymph % 6.2 % Low 24.0-44.0 Mccracken % 11.4 % High 2.0-8.0 Eos % 0.4 % Normal 0.0-3.0 Baso % 0.4 % Normal 0.0-1.0 Immature Granulocyte % 0.4 % Normal 0-3.0 Nucleated Red Blood Cell % 0.7 % High 0-0 Neutrophils # 3.7 10 Normal 1.5-8.5 Lymph # 0.3 10 Low 1.5-5.0 Mccracken # 0.5 10 Normal 0.0-0.8 Eos # 0.0 10 Normal 0.0-0.5 Baso # 0.0 10 Normal 0.0-0.2 Metabolic Panel (14), Comprehensive 03/17/2021 [facility] [address] [place] [address] [phone] Calcium 9.5 mg/dL 8.7-10.3 Glucose 81 mg/dL 65-99 BUN 30 mg/dL High 8-27 Creatinine 0.77 mg/dL 0.57-1.00 eGFR If NonAfricn Am 73 mL/min/1.73 >59 eGFR If Africn Am 84 mL/min/1.73 >59 16 BUN/Creatinine Ratio 39 High 12-28 Sodium 142 mmol/L 134-144 Potassium 4.4 mmol/L 3.5-5.2 Chloride 108 mmol/L High 96-106 Carbon Dioxide, Total 22 mmol/L 20-29 Protein, Total 6.1 g/dL 6.0-8.5 Albumin 4.0 g/dL 3.6-4.6 Globulin, Total 2.1 g/dL 1.5-4.5 A/G Ratio 1.9 1.2-2.2 Bilirubin, Total 0.7 mg/dL 0.0-1.2 Alkaline Phosphatase 91 IU/L 48-121 17 Ast (Sgot) 12 IU/L 0-40 Alt (SGPT) 8 IU/L 0-32 Lipid Panel 03/17/[address] [facility] [address] [place] [address] [phone] Cholesterol, Total 123 mg/dL 100-199 Triglycerides 141 mg/dL 0-149 HDL Cholesterol 37 mg/dL Low >39 VLDL Cholesterol Mark 25 mg/dL 5-40 LDL Chol Calc (Nih) 61 mg/dL 0-99 Comment: TNP Hemoglobin A1c 03/17/2021 [facility] [address] [place] [address] [phone] Hemoglobin A1c 4.8 % 4.8-5.6 18 Albumin/Creatinine Ratio, Random Urine 03/17/2021 [facility] [address] [place] [address] [phone] Creatinine, Urine 120.2 mg/dL Not Estab. Albumin, Urine 20.1 ug/mL Not Estab. Alb/Creat Ratio 17 mg/gcreat 0-29 19 CBC With Differential 03/14/2021 [place] [address] [phone] White Blood Count 4.0 10 Normal 4.0-10.0 [...] 36.0-66.0 Lymph % 6.8 % Low 24.0-44.0 Mccracken % 9.3 % High 2.0-8.0 Eos % 1.0 % Normal 0.0-3.0 Baso % 0.8 % Normal 0.0-1.0 Immature Granulocyte % 0.3 % Normal 0-3.0 Nucleated Red Blood Cell % 0.0 % Normal 0-0 Neutrophils # 3.3 10 Normal 1.5-8.5 Lymph # 0.3 10 Low 1.5-5.0 Mccracken # 0.4 10 Normal 0.0-0.8 Eos # 0.0 10 Normal 0.0-0.5 Baso # 0.0 10 Normal 0.0-0.2 Laboratory test finding 03/14/2021 [place] [address] [phone] Packed Cells TRANSFUSED PRODU <SEE NOTE> 20 Type & Screen -Incl Blood Type,Tye,AB SC 03/14/2021 [place] [address] [phone] Blood Type O POSITIVE Normal AB Screen (Indirect Farooq)Vis NEGATIVE Normal CBC With Differential 03/10/2021 [place] [address] [phone] White Blood Count 3.4 10 Low 4.0-10.0 [...] 36.0-66.0 Lymph % 7.6 % Low 24.0-44.0 Mccracken % 12.9 % High 2.0-8.0 Eos % 1.2 % Normal 0.0-3.0 Baso % 0.6 % Normal 0.0-1.0 Immature Granulocyte % 0.3 % Normal 0-3.0 Nucleated Red Blood Cell % 0.0 % Normal 0-0 Neutrophils # 2.6 10 Normal 1.5-8.5 Lymph # 0.3 10 Low 1.5-5.0 Mccracken # 0.4 10 Normal 0.0-0.8 Eos # 0.0 10 Normal 0.0-0.5 Baso # 0.0 10 Normal 0.0-0.2 Comprehensive Metabolic Profil 03/10/2021 Patient S [place] [id number] [phone] Glucose, Fasting 166 mg/dL High 70-100 Blood Urea Nitrogen 26 mg/dL High 7-18 Creatinine For GFR 0.73 mg/dL Normal 0.55-1.30 Glomerular Filtration Rate > 60.0 Normal >32 2 1 Sodium Level 141 mEq/L Normal 136-145 [...] Iron Binding Capacit 03/10/2021 [place] [address] [phone] Iron (Fe) 72 g/dL Normal 50-170 Total Iron Binding Capacity 352 g/dL Normal 250-450 Percent Saturation 20.5 % Normal 13.2-45.0 Laboratory test finding 03/10/2021 [place] [address] [phone] Carcinoembryonic Antigen < 0.5 NG/ML Normal <2.5 22 Ferritin 492 NG/ML High 8-252 Laboratory test finding 02/28/2021 Patient Service [place] 1316542 [phone] Packed Cells TRANSFUSED PRODU <SEE NOTE> 23 Type & Screen -Incl Blood Type,Tye,AB SC 02/28/2021 [place] [address] [phone] Blood Type O POSITIVE Normal AB Screen (Indirect Farooq)Vis NEGATIVE Normal Laboratory test finding 02/27/2021 [place] [address] [phone] Blood Urea Nitrogen 26 mg/dL High 7-18 CBC With Differential 02/27/2021 [place] [address] [phone] White Blood Count 6.0 10 Normal 4.0-10.0 [...] 36.0-66.0 Lymph % 4.7 % Low 24.0-44.0 Mccracken % 11.6 % High 2.0-8.0 Eos % 0.5 % Normal 0.0-3.0 Baso % 0.3 % Normal 0.0-1.0 Immature Granulocyte % 0.8 % Normal 0-3.0 Nucleated Red Blood Cell % 0.3 % High 0-0 Neutrophils # 4.9 10 Normal 1.5-8.5 Lymph # 0.3 10 Low 1.5-5.0 Mccracken # 0.7 10 Normal 0.0-0.8 Eos # 0.0 10 Normal 0.0-0.5 Baso # 0.0 10 Normal 0.0-0.2 Laboratory test finding 02/27/2021 [place] [address] [phone] Ferritin 1039 NG/ML High 8-252 Creatinine With GFR 02/27/2021 [place] [address] [phone] Creatinine For GFR 0.76 mg/dL Normal 0.55-1.30 Glomerular Filtration Rate > 60.0 Normal >32 2 4 Total Iron Binding Capacit 02/27/2021 [place] [address] [phone] Iron (Fe) 79 g/dL Normal 50-170 Total Iron Binding Capacity 384 g/dL Normal 250-450 Percent Saturation 20.6 % Normal 13.2-45.0 Laboratory test finding 02/10/2021 Patient Service [place] 1316504 [phone] Packed Cells TRANSFUSED PRODU <SEE NOTE> 25 Type & Screen -Incl Blood Type,Tye,AB SC 02/10/2021 [place] [address] [phone] Blood Type O POSITIVE Normal AB Screen (Indirect Farooq)Vis NEGATIVE Normal CBC With Differential 02/09/2021 [place] [address] [phone] White Blood Count 3.9 10 Low 4.0-10.0 [...] 36.0-66.0 Lymph % 7.2 % Low 24.0-44.0 Mccracken % 10.0 % High 2.0-8.0 Eos % 1.0 % Normal 0.0-3.0 Baso % 0.5 % Normal 0.0-1.0 Immature Granulocyte % 0.5 % Normal 0-3.0 Nucleated Red Blood Cell % 0.0 % Normal 0-0 Neutrophils # 3.1 10 Normal 1.5-8.5 Lymph # 0.3 10 Low 1.5-5.0 Mccracken # 0.4 10 Normal 0.0-0.8 Eos # 0.0 10 Normal 0.0-0.5 Baso # 0.0 10 Normal 0.0-0.2 CBC With Differential 01/27/2021 Patient Service [place] 2162731 [phone] White Blood Count 4.2 10 Normal 4.0-10.0 [...] 36.0-66.0 Lymph % 13.6 % Low 24.0-44.0 Mccracken % 14.6 % High 2.0-8.0 Eos % 1.4 % Normal 0.0-3.0 Baso % 0.5 % Normal 0.0-1.0 Immature Granulocyte % 0.5 % Normal 0-3.0 Nucleated Red Blood Cell % 0.0 % Normal 0-0 Neutrophils # 2.9 10 Normal 1.5-8.5 Lymph # 0.6 10 Low 1.5-5.0 Mccracken # 0.6 10 Normal 0.0-0.8 Eos # 0.1 10 Normal 0.0-0.5 Baso # 0.0 10 Normal 0.0-0.2 Comprehensive Metabolic Profil 01/27/2021 [place] [address] [phone] Glucose, Fasting 59 mg/dL Low 70-100 Blood [...] 1.1 Low 1.2-2.2 Total Iron Binding Capacit 01/27/2021 [place] [address] [phone] Iron (Fe) 59 g/dL Normal 50-170 Total Iron Binding Capacity 397 g/dL Normal 250-450 Percent Saturation 14.9 % Normal 13.2-45.0 Laboratory test finding 01/27/2021 [place] [address] [phone] Ferritin 39 NG/ML Normal 8-252 Carcinoembryonic Antigen 0.5 NG/ML Normal <2.5 27 Complete Blood Count 01/20/2021 [place] [address] [phone] White Blood Count 3.3 10 Low 4.0-10.0 [...] 0-0 Laboratory test finding 01/20/2021 [place] [address] [phone] Blood Urea Nitrogen 21 mg/dL High 7-18 Creatinine With GFR 01/20/2021 [place] [address] [phone] Creatinine For GFR 0.69 mg/dL Normal 0.55-1.30 Glomerular Filtration Rate > 60.0 Normal >32 2 8 Type & Screen -Incl Blood Type,Tye,AB [place] 01/20/2021 [place] [address] [phone] Blood Type O POSITIVE Normal AB Screen (Indirect Farooq)Vis NEGATIVE Normal Coronavirus 2019 Nasopharygeal 01/16/2021 Patient S ervice [place] 1316527 [phone] Coronavirus 2019 Nasopharygeal ASSAY INFORMATIO <SEE N OTE> 29 Type & Screen -Incl Blood Type,Tye,AB MI 01/03/2021 Patient Service [place] 1316542 [phone] Blood Type O POSITIVE Normal AB Screen (Indirect Farooq)Vis NEGATIVE Normal Laboratory test finding 01/03/2021 [place] [address] [phone] Packed Cells TRANSFUSED PRODU <SEE NOTE> 30 Laboratory test finding 01/02/2021 [place] [address] [phone] Thyroid Stimulating Hormone 1.660 uIU/ML Normal 0. 358-3.740 Free T4 0.87 ng/dL Normal 0.76-1.46 Ferritin 58 NG/ML Normal 8-252 Total Iron Binding Capacit 01/02/2021 [place] [address] [phone] Iron (Fe) 55 g/dL Normal 50-170 Total Iron Binding Capacity 398 g/dL Normal 250-450 Percent Saturation 13.8 % Normal 13.2-45.0 CBC With Differential 01/02/2021 [place] [address] [phone] White Blood Count 4.3 10 Normal 4.0-10.0 [...] 36.0-66.0 Lymph % 10.7 % Low 24.0-44.0 Mccracken % 13.1 % High 2.0-8.0 Eos % 0.7 % Normal 0.0-3.0 Baso % 0.5 % Normal 0.0-1.0 Immature Granulocyte % 0.5 % Normal 0-3.0 Nucleated Red Blood Cell % 0.0 % Normal 0-0 Neutrophils # 3.2 10 Normal 1.5-8.5 Lymph # 0.5 10 Low 1.5-5.0 Mccracken # 0.6 10 Normal 0.0-0.8 Eos # 0.0 10 Normal 0.0-0.5 Baso # 0.0 10 Normal 0.0-0.2 Comprehensive Metabolic Profil 01/02/2021 Patient S [place], [place] 4194640 [phone] Glucose, Fasting 155 mg/dL High 70-100 Blood Urea Nitrogen 24 mg/dL High 7-18 Creatinine For GFR 0.85 mg/dL Normal 0.55-1.30 Glomerular Filtration Rate > 60.0 Normal >32 3 1 Sodium Level 137 mEq/L Normal 136-145 Potassium [...] 1.2-2.2 Laboratory test finding 12/23/2020 [place] [address] [phone] iSTAT Troponin 0.01 NG/ML Normal 0.00-0.08 Istat Chem8+ Panel 12/23/2020 [place] [address] [phone] iSTAT HCT 33.0 % Low 38.0-51.0 iSTAT Glucose 94 mg/dL Normal 70-105 iSTAT Sodium 138 mEq/L Normal 136-145 iSTAT Potassium 4.2 mEq/L Normal 3.5-5.1 iSTAT CA++ 5.0 mg/dL Normal 4.5-5.3 iSTAT Chloride 102 mEq/L Normal 98-109 iSTAT Co2 27.0 MM/L Normal 23.0-27.0 iSTAT BUN 20 mg/dL Normal 8-26 iSTAT Creatinine 0.7 mg/dL Normal 0.6-1.3 CBC With Differential 12/23/2020 Patient Service Ce nter [facility] [place] [address] [phone] White Blood Count 4.5 10 Normal 4.0-10.0 [...] 36.0-66.0 Lymph % 9.7 % Low 24.0-44.0 Mccracken % 11.9 % High 2.0-8.0 Eos % 0.9 % Normal 0.0-3.0 Baso % 0.4 % Normal 0.0-1.0 Immature Granulocyte % 0.4 % Normal 0-3.0 Nucleated Red Blood Cell % 0.0 % Normal 0-0 Neutrophils # 3.5 10 Normal 1.5-8.5 Lymph # 0.4 10 Low 1.5-5.0 Mccracken # 0.5 10 Normal 0.0-0.8 Eos # 0.0 10 Normal 0.0-0.5 Baso # 0.0 10 Normal 0.0-0.2 PT & Aptt 12/23/2020 [place] [address] [phone] Prothrombin Time 13.3 seconds Normal 12.5-14.3 Inr 0.99 Normal 32 Partial Thromboplastin Time 29.5 seconds Normal 24.2-38.5 Liver Profile 12/23/2020 [place] [address] [phone] Ast/Sgot 13 U/L Normal 7-37 Alt/SGPT 14 U/L Normal 12-78 Alkaline Phosphatase 95 U/L Normal 45-117 Bilirubin,Total 0.9 mg/dL Normal 0.2-1.0 Bilirubin,Direct 0.3 mg/dL High 0.0-0.2 Total Protein 6.5 GM/DL Normal 6.4-8.2 Albumin 3.4 GM/DL Normal 3.2-5.2 Albumin/Globulin Ratio 1.1 Low 1.2-2.2 Laboratory test finding 12/23/2020 Patient Service [place], [place] [id number] [phone] Lipase 73 U/L Normal 73-393 Lactic Acid Sepsis Protocol 0.8 mmol/L Normal 0.4-2.0 33 CBC With Differential 12/19/2020 [place] [address] [phone] White Blood Count 3.8 10 Low 4.0-10.0 [...] 36.0-66.0 Lymph % 11.7 % Low 24.0-44.0 Mccracken % 11.9 % High 2.0-8.0 Eos % 1.1 % Normal 0.0-3.0 Baso % 0.3 % Normal 0.0-1.0 Immature Granulocyte % 0.5 % Normal 0-3.0 Nucleated Red Blood Cell % 0.0 % Normal 0-0 Neutrophils # 2.8 10 Normal 1.5-8.5 Lymph # 0.4 10 Low 1.5-5.0 Mccracken # 0.5 10 Normal 0.0-0.8 Eos # 0.0 10 Normal 0.0-0.5 Baso # 0.0 10 Normal 0.0-0.2 CBC With Differential 12/05/2020 Patient Service [facility], [place] [id number] [phone] White Blood Count 3.4 10 Low 4.0-10.0 [...] 36.0-66.0 Lymph % 12.8 % Low 24.0-44.0 Mccracken % 13.7 % High 2.0-8.0 Eos % 1.2 % Normal 0.0-3.0 Baso % 0.6 % Normal 0.0-1.0 Immature Granulocyte % 0.3 % Normal 0-3.0 Nucleated Red Blood Cell % 0.0 % Normal 0-0 Neutrophils # 2.4 10 Normal 1.5-8.5 Lymph # 0.4 10 Low 1.5-5.0 Mccracken # 0.5 10 Normal 0.0-0.8 Eos # 0.0 10 Normal 0.0-0.5 Baso # 0.0 10 Normal 0.0-0.2 Laboratory test finding 12/05/2020 [place] [address] [phone] Ferritin 108 NG/ML Normal 8-252 Total Iron Binding Capacit 12/05/2020 [place] [address] [phone] Iron (Fe) 94 g/dL Normal 50-170 Total Iron Binding Capacity 350 g/dL Normal 250-450 Percent Saturation 26.9 % Normal 13.2-45.0 PT & Aptt 12/05/2020 [place] [address] [phone] Prothrombin Time 13.3 seconds Normal 12.5-14.3 Inr 0.99 Normal 34 Partial Thromboplastin Time 29.4 seconds Normal 24.2-38.5 PT & Aptt 11/25/2020 [place] [address] [phone] Prothrombin Time 16.4 seconds High 12.5-14.3 Inr 1.29 Normal 35 Partial Thromboplastin Time 33.4 seconds Normal 24.2-38.5 Complete Blood Count 11/25/2020 [place] [address] [phone] White Blood Count 4.4 10 Normal 4.0-10.0 [...] 0-0 Comprehensive Metabolic Profil 11/25/2020 [place] [address] [phone] Glucose, Fasting 110 mg/dL High 70-100 Blood Urea Nitrogen 22 mg/dL High 7-18 Creatinine For GFR 0.68 mg/dL Normal 0.55-1.30 Glomerular Filtration Rate > 60.0 Normal >32 3 6 Sodium Level 140 mEq/L Normal 136-145 Potassium [...] 1.2-2.2 Cardiac Marker Panel 11/25/[address] [place] [address] [phone] CPK Creatine Phosphokinase 60 U/L Normal 26-19 2 CK-MB Value Mass 1.3 NG/ML Normal <3.6 MB/CK Relative Index 2.17 Normal < Or =4 37 Troponin I < 0.02 NG/ML Normal < 0.10 38 Laboratory test finding 11/25/2020 [place] [address] [phone] NT-Pro BNP 1795 pg/mL High <450 Type & Screen -Incl Blood Type,Tye,AB SC 11/25/2020 [place] [address] [phone] Blood Type O POSITIVE Normal AB Screen (Indirect Farooq)Vis NEGATIVE Normal 1 TRANSFUSED PRODUCT: PACKED C ELLS COUNT: 1 2 OCCULT BLOOD 1 POSITIVE 3 TRANSFUSED PRODUCT: PACKED C ELLS COUNT: 2 4 UNABLE TO PERFORM TEST DUE T O hct <35% 5 THERAPUTIC HUMAN INR VALUES INDICATIONS NORMAL RANGES PROPHYLAXIS/TREATMENT OF: VENOUS THROMBOSIS 2.0-3.0 PULMONARY EMBOLISM 2.0-3.0 PREVENTION OF SYSTEMIC EMBOLISM FROM: TISSUE HEART VALVES 2.0-3.0 ACUTE MYOCARDIAL INFARCTION 2.0-3.0 VALVULAR HEART DISEASE 2.0-3.0 ATRIAL FIBRILLATION 2.0-3.0 MECHANICAL VALVES(HIGH RISK) 2.5-3.5 RECURRENT MYOCARDIAL INFARCTION 2.5-3.5 6 ASSAY INFORMATION: Real Time RT-PCR or TMA. Both RT-PCR and TMA are nucleic acid amplification tests (NAAT) which are molecular testing modalities and recommended by the CDC for passenger travel. Testing and International Air Travel, cdc.gov/coronavirus/2019-ncov/travelers/oenzlxp-ssn-eopvmy.html 09/01/2020 NOTE: The COVID-19 assay is under Emergency Use Authorization (EUA) by the U.S. Food and Drug Administration. [employer] [facility] [employer] [facility] are designated as high complexity laboratories by the Clinical Laboratory Improvement Amendments of 1988 (CLIA) and are qualified to perform this test. 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 IT SHOULD NOT BE USED ALONE A SCREENING TEST OR DIAGNOSIS FOR THE PRESENCE OR ABSENCE OF MALIGNANT DISEASE. PREDICTIONS OF DISEASE RECURRENCE SHOULD NOT BE BASED SOLELY ON VALUES OBTAINED FROM SERIAL PATIENT SERUM VALUES. 10 Units are mL/min/1.73 m2 Chronic Kidney Disease Staging per NKF: Stage I & II GFR >=60 Normal to Mildly Decreased Stage III GFR 30-59 Moderately Decreased Stage IV GFR 15-29 Severely Decreased Stage V GFR <15 Very Little GFR Left ESRD GFR <15 on WATER MAIN INSTALLER HELPER 11 Negative results do not prec lude influenza or RSV virus infection and should not be used as the sole basis for treatment or other patient management decisions. 12 Negative results do not prec lude influenza or RSV virus infection and should not be used as the sole basis for treatment or other patient management decisions. 13 Negative results do not prec lude influenza or RSV virus infection and should not be used as the sole basis for treatment or other patient management decisions. 14 A false negative result may occur if [...] pathogens. DISCLAIMER: Testing was performed using the [employer] SARS-CoV-2 test. This test was developed and its performance characteristics determined by [employer]. This test has not been FDA cleared [...] the authorization is terminated or revoked sooner. 15 TRANSFUSED PRODUCT: PACKED C ELLS COUNT: 1 16 [facility] currently reports eGFR in compliance with the current recommendations of the [employer]. [facility] will update reporting as new guidelines are published from the NKF-ASN Task force. 17 Effective March 27 Alkaline Phosphatase reference interval will be changing [...] years 44 - 121 44 - 121 18 Prediabetes: 5.7 - 6.4 Diabetes: >6.4 Glycemic control for adults with diabetes: <7.0 19 Normal: 0 - 29 Moderately increased: 30 - 300 Severely increased: >300 20 TRANSFUSED PRODUCT: PACKED C ELLS COUNT: 2 21 Units are mL/min/1.73 m2 Chronic Kidney Disease Staging per NKF: Stage I & II GFR >=60 Normal to Mildly Decreased Stage III GFR 30-59 Moderately Decreased Stage IV GFR 15-29 Severely Decreased Stage V GFR <15 Very Little GFR Left ESRD GFR <15 on WATER MAIN INSTALLER HELPER 22 THE CEA ASSAY IS PERFORMED O N THE [employer] BY CHEMILUMINESCENCE AND SHOULD NOT BE COMPARED INTERCHANGEABLY WITH OTHER METHODS. IT SHOULD NOT BE USED ALONE A SCREENING TEST OR DIAGNOSIS FOR THE PRESENCE OR ABSENCE OF MALIGNANT DISEASE. PREDICTIONS OF DISEASE RECURRENCE SHOULD NOT BE BASED SOLELY ON VALUES OBTAINED FROM SERIAL PATIENT SERUM VALUES. 23 TRANSFUSED PRODUCT: PACKED C ELLS COUNT: 2 24 Units are mL/min/1.73 m2 Chronic Kidney Disease Staging per NKF: Stage I & II GFR >=60 Normal to Mildly Decreased Stage III GFR 30-59 Moderately Decreased Stage IV GFR 15-29 Severely Decreased Stage V GFR <15 Very Little GFR Left ESRD GFR <15 on WATER MAIN INSTALLER HELPER 25 TRANSFUSED PRODUCT: PACKED C ELLS COUNT: 2 26 Units are mL/min/1.73 m2 Chronic Kidney Disease Staging per NKF: Stage I & II GFR >=60 Normal to Mildly Decreased Stage III GFR 30-59 Moderately Decreased Stage IV GFR 15-29 Severely Decreased Stage V GFR <15 Very Little GFR Left ESRD GFR <15 on WATER MAIN INSTALLER HELPER 27 THE CEA ASSAY IS PERFORMED O N THE [employer] BY CHEMILUMINESCENCE AND SHOULD NOT BE COMPARED INTERCHANGEABLY WITH OTHER METHODS. IT SHOULD NOT BE USED ALONE A SCREENING TEST OR DIAGNOSIS FOR THE PRESENCE OR ABSENCE OF MALIGNANT DISEASE. PREDICTIONS OF DISEASE RECURRENCE SHOULD NOT BE BASED SOLELY ON VALUES OBTAINED FROM SERIAL PATIENT SERUM VALUES. 28 Units are mL/min/1.73 m2 Chronic Kidney Disease Staging per NKF: Stage I & II GFR >=60 Normal to Mildly Decreased Stage III GFR 30-59 Moderately Decreased Stage IV GFR 15-29 Severely Decreased Stage V GFR <15 Very Little GFR Left ESRD GFR <15 on WATER MAIN INSTALLER HELPER 29 ASSAY INFORMATION: Real Time RT-PCR NOTE: The COVID-19 assay has been cleared by the U.S. Food and Drug Administration under the Emergency Use Authorization (EUA). [facility] and [facility] are designated as high complexity laboratories by the Clinical Laboratory Improvement Amendments of 1988(CLIA) and are qualified to perform this test. Not Detected 30 TRANSFUSED PRODUCT: PACKED C ELLS COUNT: 1 31 Units are mL/min/1.73 m2 Chronic Kidney Disease Staging per NKF: Stage I & II GFR >=60 Normal to Mildly Decreased Stage III GFR 30-59 Moderately Decreased Stage IV GFR 15-29 Severely Decreased Stage V GFR <15 Very Little GFR Left ESRD GFR <15 on WATER MAIN INSTALLER HELPER 32 THERAPUTIC HUMAN INR VALUES INDICATIONS NORMAL RANGES PROPHYLAXIS/TREATMENT OF: VENOUS THROMBOSIS 2.0-3.0 PULMONARY EMBOLISM 2.0-3.0 PREVENTION OF SYSTEMIC EMBOLISM FROM: TISSUE HEART VALVES 2.0-3.0 ACUTE MYOCARDIAL INFARCTION 2.0-3.0 VALVULAR HEART DISEASE 2.0-3.0 ATRIAL FIBRILLATION 2.0-3.0 MECHANICAL VALVES(HIGH RISK) 2.5-3.5 RECURRENT MYOCARDIAL INFARCTION 2.5-3.5 33 Y/N query for Sepsis Lactate Rule: Y 34 THERAPUTIC HUMAN INR VALUES INDICATIONS NORMAL RANGES PROPHYLAXIS/TREATMENT OF: VENOUS THROMBOSIS 2.0-3.0 PULMONARY EMBOLISM 2.0-3.0 PREVENTION OF SYSTEMIC EMBOLISM FROM: TISSUE HEART VALVES 2.0-3.0 ACUTE MYOCARDIAL INFARCTION 2.0-3.0 VALVULAR HEART DISEASE 2.0-3.0 ATRIAL FIBRILLATION 2.0-3.0 MECHANICAL VALVES(HIGH RISK) 2.5-3.5 RECURRENT MYOCARDIAL INFARCTION 2.5-3.5 35 THERAPUTIC HUMAN INR VALUES INDICATIONS NORMAL RANGES PROPHYLAXIS/TREATMENT OF: VENOUS THROMBOSIS 2.0-3.0 PULMONARY EMBOLISM 2.0-3.0 PREVENTION OF SYSTEMIC EMBOLISM FROM: TISSUE HEART VALVES 2.0-3.0 ACUTE MYOCARDIAL INFARCTION 2.0-3.0 VALVULAR HEART DISEASE 2.0-3.0 ATRIAL FIBRILLATION 2.0-3.0 MECHANICAL VALVES(HIGH RISK) 2.5-3.5 RECURRENT MYOCARDIAL INFARCTION 2.5-3.5 36 Units are mL/min/1.73 m2 Chronic Kidney Disease Staging per NKF: Stage I & II GFR >=60 Normal to Mildly Decreased Stage III GFR 30-59 Moderately Decreased Stage IV GFR 15-29 Severely Decreased Stage V GFR <15 Very Little GFR Left ESRD GFR <15 on WATER MAIN INSTALLER HELPER 37 DIAGNOSIS CRITERIA MMB ng/ml Relative Index (RI) NON-AMI < or = 5 N/A LEVINE ZONE > 5 < or = 4 AMI > 5 > 4 38 Troponin I Reference Interva l for [email or web address] LOCI: 99th Percentile= 0.00-0.045 ng/ml Risk Stratification: <= 0.10 ng/ml Decreased Risk for Adverse Clinical Events. 0.10-1.50 ng/ml Increased Risk for Adv erse Clinical Events. Evaluation of additional criterion and/or repeat testing in 2-6 hours is suggested to rule out myocardial damage. >= 1.50 ng/ml Indicative of Myocardial Injury. Procedures Date Code Description Status 03/28/2021 [id number] [place] W/I 7 Days Of DC, Comm W/I 2 Dys Completed 03/23/2021 [id number] Office/Outpatient Established Mo d MDM 30-39 Min Completed 03/23/2021 [id number] Diabetic Foot Exam Completed 01/25/2021 [id number] [place] W/I 7 Days Of DC, Comm W/I 2 Dys Completed 12/27/2020 [id number] Office/Outpatient Established Mo d MDM 30-39 Min Completed 12/19/2020 [id number] Office/Outpatient Established Mo d MDM 30-39 Min Completed 12/02/2020 [id number] [place] W/I 7 Days Of DC, Comm W/I 2 Dys Completed Medical Devices Description No Information Available Encounters Type Date Location Provider Dx Diagnosis Office Visit 03/28/2021 11:45a Main Office Nadiya Bryan FNP D64.9 Anemia, unspecified K29.61 Other gastritis with bleedin g Office Visit 03/23/2021 3:45p Main Office Nadiya Bryan, THERAPY DIRECTOR E11.6 9 Type 2 diabetes mellitus [...] unspecified Office Visit 12/19/2020 2:15p Main Office Nadiya Bryan, THERAPY DIRECTOR E11.6 9 Type 2 diabetes mellitus with other specified complication E78.2 Mixed hyperlipidemia I10 Essential (primary) hyperten yara 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 C18.9 Malignant neoplasm of colon, unspecified I48.91 Unspecified atrial fibrillat ion Office Visit 12/02/2020 10:30a Main Office Nadiya Bryan THERAPY DIRECTOR D64.9 Anemia, unspecified E11.69 Type 2 diabetes mellitus wit h other specified complication E78.2 Mixed hyperlipidemia I10 Essential (primary) hyperten yara 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 C18.9 Malignant neoplasm of colon, unspecified I48.91 Unspecified atrial fibrillat ion Assessments Date Code Description Provider 03/28/2021 D64.9 Anemia, unspecified Deejay Bryan FNP 03/28/2021 K29.61 Other gastritis with bleeding Pl Nadiya hogan THERAPY DIRECTOR 03/23/2021 E11.69 Type 2 diabetes mellitus with ot her specified complication PleSteve traceyy, THERAPY DIRECTOR 03/23/2021 C18.9 Malignant neoplasm of colon, uns pecified P[place] Nadiya, THERAPY DIRECTOR 03/23/2021 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 PleNadiya tracey , THERAPY DIRECTOR 03/23/2021 E78.2 Mixed hyperlipidemia Pleskzulma, Chayo jarocho, THERAPY DIRECTOR 03/23/2021 I10 Essential (primary) hypertension P[place] Nadiya, THERAPY DIRECTOR 03/23/2021 I48.91 Unspecified atrial fibrillation P[place] Nadiya, THERAPY DIRECTOR 03/23/2021 D64.9 Anemia, unspecified Pleskach, Mo lly, THERAPY DIRECTOR 01/25/2021 D64.9 Anemia, unspecified Pleskach, Mo lly, THERAPY DIRECTOR 01/25/2021 K29.61 Other gastritis with bleeding Pl Nadiya hogan, THERAPY DIRECTOR 12/27/2020 E11.69 Type 2 diabetes mellitus with ot her specified complication Anitha Gamez M.D. 12/27/2020 C18.9 Malignant neoplasm of colon, uns pecified Anitha Gamez M.D. 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 12/27/2020 D64.9 Anemia, unspecified Angela Gamez M.D. 12/19/2020 E11.69 Type 2 diabetes mellitus with ot her specified complication PleNadiya tracey, THERAPY DIRECTOR 12/19/2020 E78.2 Mixed hyperlipidemia Pleskzulma, Chayo jarocho, THERAPY DIRECTOR 12/19/2020 I10 Essential (primary) hypertension Pleskzulma Nadiya, THERAPY DIRECTOR 12/19/2020 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 PleNadiya tracey , THERAPY DIRECTOR 12/19/2020 C18.9 Malignant neoplasm of colon, uns pecified Plealexy Nadiya, THERAPY DIRECTOR 12/19/2020 I48.91 Unspecified atrial fibrillation P[place] Nadiya, THERAPY DIRECTOR 12/02/2020 D64.9 Anemia, unspecified Pleskach, Mo lly, THERAPY DIRECTOR 12/02/2020 E11.69 Type 2 diabetes mellitus with ot her specified complication Nadiya Bryan FNP 12/02/2020 E78.2 Mixed hyperlipidemia Chayo Bryan, SUZANNE 12/02/2020 I10 Essential (primary) hypertension Nadiya Bryan FNP 12/02/2020 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
--- OUTSIDE RECORDS SUMMARY | 2021-05-23 16:55 | CCD | Continuity of Care Document ---
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 AUTM [phone] [facility] AUTM Jeff Cramer AUTM [phone] Problems Active Problems Provider Date Type 2 [...] 236units C18.9 Nadiya Bryan FNP 06/16/2020 Z93.2 [place] Remover Wipes Misc use 3-4 wipes every 4 days and as needed when changing ostomy 2Box Z93.2 Nadiya Bryan FNP 06/16/2020 C18.9 Efren Adapt Ceraing change every 4-5 days and as needed ref #[id number] 05 20units Nadiya Bryan FNP 05/05/2020 [place] 2 Piece Ostomy Skin Barrier ref # [id number] márquez ge every 4-5 days and as needed 20units C18.9 Nadiya Bryan FNP 04/14/2020 Z93.2 [place] 2 Piece Drainable Ostomy Pouch ref # [id number] c hange every 4-5 days and as [...] Tablets Take 1 Tablet Daily 90tabs E78.2 Antiha Gamez M.D. 016 Onetouch Ultra Blue Strips [...] CPT Code Status Date Vaccine Lot # [id number] Refused 04/17/2016 Pneumococcal Vaccine 71339 Refused 04/17/2016 Prevnar 13 01574 Refused 04/17/2016 Influenza Vaccination Vital Signs Date Vital Result Comment 03/28/2021 11:51am BP Systolic 113 mmHg BP Diastolic 83 mmHg Heart Rate 127 /min Body Temperature 98.0 F Respiratory Rate 18 /min Height 61.5 inches 5'1.50" Weight 114.38 lb O2 % BldC Oximetry 100 % [place] Body Weight 105 lb BMI (Body Mass Index) 21.3 kg/m2 03/23/2021 3:47pm BP Systolic 110 mmHg BP Diastolic 62 mmHg Heart Rate 64 /min Body Temperature 98.7 F Respiratory Rate 16 /min Height 61.5 inches 5'1.50" Weight 116.38 lb O2 % BldC Oximetry 99 % [place] Body Weight 105 lb BMI (Body Mass Index) 21.6 kg/m2 Results Test Acquired Date Facility Test Result H/L Range Note Type & Screen -Incl Blood Type,Tye,AB SC 05/08/2021 [facility] [place], [place] [id number] [phone] Blood Type O POSITIVE Normal AB Screen (Indirect Farooq)Vis NEGATIVE Normal CBC With Differential 05/08/2021 [place] [address] [phone] White Blood Count 4.8 10 Normal 4.0-10.0 [...] 36.0-66.0 Lymph % 5.2 % Low 24.0-44.0 Barrow % 11.2 % High 2.0-8.0 Eos % 1.4 % Normal 0.0-3.0 Baso % 0.4 % Normal 0.0-1.0 Immature Granulocyte % 0.4 % Normal 0-3.0 Nucleated Red Blood Cell % 0.0 % Normal 0-0 Neutrophils # 3.9 10 Normal 1.5-8.5 Lymph # 0.3 10 Low 1.5-5.0 Barrow # 0.5 10 Normal 0.0-0.8 Eos # 0.1 10 Normal 0.0-0.5 Baso # 0.0 10 Normal 0.0-0.2 Laboratory test finding 05/08/2021 [place] [address] [phone] Packed Cells TRANSFUSED PRODU <SEE NOTE> 1 Retic (Reticulocyte Count) 05/05/2021 [place] [address] [phone] Reticulocyte % 5.9 % High 0.5-1.5 Reticulocyte # 119.8 10 High 17-77 Retic Hemoglobin Equivalent 30.7 pg Normal 24-36 Prothrombin Time/Inr 05/05/[address] [place] [address] [phone] Prothrombin Time 14.0 seconds Normal 12.7-14.5 Inr 1.04 Normal 2 Laboratory test finding 05/05/2021 [place] [address] [phone] Partial Thromboplastin Time 24.9 seconds Low 25 .9-37.0 Platelet Function Analysis 05/05/2021 [place] [address] [phone] Collagen Epinephrine TNP seconds Normal 74-162 3 Laboratory test finding 05/05/2021 [place] [address] [phone] LDH Lactate Dehydrogenase 128 U/L Normal 84-246 CBC With Differential 05/05/2021 Patient Service Ce nter [place] [id number] [phone] White Blood Count 5.1 10 Normal 4.0-10.0 [...] 36.0-66.0 Lymph % 6.3 % Low 24.0-44.0 Barrow % 11.5 % High 2.0-8.0 Eos % 0.8 % Normal 0.0-3.0 Baso % 0.4 % Normal 0.0-1.0 Immature Granulocyte % 0.6 % Normal 0-3.0 Nucleated Red Blood Cell % 0.0 % Normal 0-0 Neutrophils # 4.1 10 Normal 1.5-8.5 Lymph # 0.3 10 Low 1.5-5.0 Barrow # 0.6 10 Normal 0.0-0.8 Eos # 0.0 10 Normal 0.0-0.5 Baso # 0.0 10 Normal 0.0-0.2 Type & Screen -Incl Blood Type,Tye,AB SC 05/05/2021 [place] [address] [phone] Blood Type O POSITIVE Normal AB Screen (Indirect Farooq)Vis NEGATIVE Normal Laboratory test finding 05/05/2021 [place] [address] [phone] Packed Cells TRANSFUSED PRODU <SEE NOTE> 4 CBC With Differential 04/27/2021 [place] [address] [phone] White Blood Count 4.2 10 Normal 4.0-10.0 [...] 36.0-66.0 Lymph % 8.1 % Low 24.0-44.0 Barrow % 12.8 % High 2.0-8.0 Eos % 1.0 % Normal 0.0-3.0 Baso % 0.2 % Normal 0.0-1.0 Immature Granulocyte % 0.5 % Normal 0-3.0 Nucleated Red Blood Cell % 0.0 % Normal 0-0 Neutrophils # 3.3 10 Normal 1.5-8.5 Lymph # 0.3 10 Low 1.5-5.0 Barrow # 0.5 10 Normal 0.0-0.8 Eos # 0.0 10 Normal 0.0-0.5 Baso # 0.0 10 Normal 0.0-0.2 CBC With Differential 04/20/2021 [place] [address] [phone] White Blood Count 3.9 10 Low 4.0-10.0 [...] 36.0-66.0 Lymph % 8.8 % Low 24.0-44.0 Barrow % 11.9 % High 2.0-8.0 Eos % 1.0 % Normal 0.0-3.0 Baso % 0.5 % Normal 0.0-1.0 Immature Granulocyte % 0.8 % Normal 0-3.0 Nucleated Red Blood Cell % 0.0 % Normal 0-0 Neutrophils # 3.0 10 Normal 1.5-8.5 Lymph # 0.3 10 Low 1.5-5.0 Barrow # 0.5 10 Normal 0.0-0.8 Eos # 0.0 10 Normal 0.0-0.5 Baso # 0.0 10 Normal 0.0-0.2 CBC With Differential 04/12/2021 [place] [address] [phone] White Blood Count 4.6 10 Normal 4.0-10.0 [...] 36.0-66.0 Lymph % 6.6 % Low 24.0-44.0 Barrow % 9.4 % High 2.0-8.0 Eos % 0.9 % Normal 0.0-3.0 Baso % 0.2 % Normal 0.0-1.0 Immature Granulocyte % 0.4 % Normal 0-3.0 Nucleated Red Blood Cell % 0.0 % Normal 0-0 Neutrophils # 3.8 10 Normal 1.5-8.5 Lymph # 0.3 10 Low 1.5-5.0 Barrow # 0.4 10 Normal 0.0-0.8 Eos # 0.0 10 Normal 0.0-0.5 Baso # 0.0 10 Normal 0.0-0.2 Coronavirus 2019 Nasopharygeal 04/10/[address] [place] [address] [phone] Coronavirus 2019 Nasopharygeal ASSAY INFORMATIO <SEE N OTE> 5 Comprehensive Metabolic Profil 04/07/2021 Patient S [place], [place] [id number] [phone] Glucose, Fasting 184 mg/dL High 70-100 Blood Urea Nitrogen 30 mg/dL High 7-18 Creatinine For GFR 0.81 mg/dL Normal 0.55-1.30 Glomerular Filtration Rate > 60.0 Normal >32 6 Sodium Level 141 mEq/L Normal 136-145 [...] 1.0 Low 1.2-2.2 Total Iron Binding Capacit 04/07/2021 Patient Servi ce [facility] [place], [place] [address]97 [phone] Iron (Fe) 48 g/dL Low 50-170 Total Iron Binding Capacity 353 g/dL Normal 250-450 Percent Saturation 13.6 % Normal 13.2-45.0 Laboratory test finding 04/07/2021 Patient [facility] [place], [place] [address]183 [phone] Carcinoembryonic Antigen < 0.5 NG/ML Normal <2.5 7 Ferritin 66 NG/ML Normal 8-252 CBC With Differential 04/07/2021 Patient Service Ce [place], [place] [address]96 [phone] White Blood Count 3.4 10 Low 4.0-10.0 [...] 36.0-66.0 Lymph % 8.5 % Low 24.0-44.0 Barrow % 10.9 % High 2.0-8.0 Eos % 0.9 % Normal 0.0-3.0 Baso % 0.6 % Normal 0.0-1.0 Immature Granulocyte % 0.6 % Normal 0-3.0 Nucleated Red Blood Cell % 0.0 % Normal 0-0 Neutrophils # 2.7 10 Normal 1.5-8.5 Lymph # 0.3 10 Low 1.5-5.0 Barrow # 0.4 10 Normal 0.0-0.8 Eos # 0.0 10 Normal 0.0-0.5 Baso # 0.0 10 Normal 0.0-0.2 Laboratory test finding 04/07/2021 [place] [address] [phone] Packed Cells TRANSFUSED PRODU <SEE NOTE> 8 Type & Screen -Incl Blood Type,Tye,AB SC 04/07/2021 [place] [address] [phone] Blood Type O POSITIVE Normal AB Screen (Indirect Farooq)Vis NEGATIVE Normal Comprehensive Metabolic Profil 03/24/2021 [facility] [place] [address] [phone] Glucose, Fasting 96 mg/dL Normal 70-100 Blood Urea Nitrogen 35 mg/dL High 7-18 Creatinine For GFR 0.78 mg/dL Normal 0.55-1.30 Glomerular Filtration Rate > 60.0 Normal >32 9 Sodium Level 141 mEq/L Normal 136-145 Potassium [...] Ratio 1.0 Low 1.2-2.2 CBC With Differential 03/24/2021 [place] [address] [phone] White Blood Count 4.6 10 Normal 4.0-10.0 [...] 36.0-66.0 Lymph % 6.2 % Low 24.0-44.0 Barrow % 11.4 % High 2.0-8.0 Eos % 0.4 % Normal 0.0-3.0 Baso % 0.4 % Normal 0.0-1.0 Immature Granulocyte % 0.4 % Normal 0-3.0 Nucleated Red Blood Cell % 0.7 % High 0-0 Neutrophils # 3.7 10 Normal 1.5-8.5 Lymph # 0.3 10 Low 1.5-5.0 Barrow # 0.5 10 Normal 0.0-0.8 Eos # 0.0 10 Normal 0.0-0.5 Baso # 0.0 10 Normal 0.0-0.2 Influenza A/B RSV Covid Amp 03/24/2021 [place] [address] [phone] Influenza A Amplification NEGATIVE Normal Negati ve 10 Influenza B Amplification NEGATIVE Normal Negative 11 RSV Amplification NEGATIVE Normal Negative 12 Sars Covid-19 Amplification NEGATIVE Normal Negative 13 Laboratory test finding 03/24/2021 [place] [address] [phone] Packed Cells TRANSFUSED PRODU <SEE NOTE> 14 Metabolic Panel (14), Comprehensive 03/17/2021 [facility] [address] [place] [address] [phone] Calcium 9.5 mg/dL 8.7-10.3 Glucose 81 mg/dL 65-99 BUN 30 mg/dL High 8-27 Creatinine 0.77 mg/dL 0.57-1.00 eGFR If NonAfricn Am 73 mL/min/1.73 >59 eGFR If Africn Am 84 mL/min/1.73 >59 15 BUN/Creatinine Ratio 39 High 12-28 Sodium 142 mmol/L 134-144 Potassium 4.4 mmol/L 3.5-5.2 Chloride 108 mmol/L High 96-106 Carbon Dioxide, Total 22 mmol/L 20-29 Protein, Total 6.1 g/dL 6.0-8.5 Albumin 4.0 g/dL 3.6-4.6 Globulin, Total 2.1 g/dL 1.5-4.5 A/G Ratio 1.9 1.2-2.2 Bilirubin, Total 0.7 mg/dL 0.0-1.2 Alkaline Phosphatase 91 IU/L 48-121 16 Ast (Sgot) 12 IU/L 0-40 Alt (SGPT) 8 IU/L 0-32 Lipid Panel 03/17/2021 [facility] [address] [place] [address] [phone] Cholesterol, Total 123 mg/dL 100-199 Triglycerides 141 mg/dL 0-149 HDL Cholesterol 37 mg/dL Low >39 VLDL Cholesterol Mark 25 mg/dL 5-40 LDL Chol Calc (Nih) 61 mg/dL 0-99 Comment: TNP Hemoglobin A1c 03/17/2021 [facility] [address] [place] [address] [phone] Hemoglobin A1c 4.8 % 4.8-5.6 17 Albumin/Creatinine Ratio, Random Urine 03/17/2021 [facility] [address] [place] [address] [phone] Creatinine, Urine 120.2 mg/dL Not Estab. Albumin, Urine 20.1 ug/mL Not Estab. Alb/Creat Ratio 17 mg/gcreat 0-29 18 Laboratory test finding 03/14/2021 Patient Service Center [facility] [place] [address] [phone] Packed Cells TRANSFUSED PRODU <SEE NOTE> 19 Type & Screen -Incl Blood Type,Tye,AB SC 03/14/2021 [place] [address] [phone] Blood Type O POSITIVE Normal AB Screen (Indirect Farooq)Vis NEGATIVE Normal CBC With Differential 03/14/2021 [place] [address] [phone] White Blood Count 4.0 10 Normal 4.0-10.0 [...] 36.0-66.0 Lymph % 6.8 % Low 24.0-44.0 Barrow % 9.3 % High 2.0-8.0 Eos % 1.0 % Normal 0.0-3.0 Baso % 0.8 % Normal 0.0-1.0 Immature Granulocyte % 0.3 % Normal 0-3.0 Nucleated Red Blood Cell % 0.0 % Normal 0-0 Neutrophils # 3.3 10 Normal 1.5-8.5 Lymph # 0.3 10 Low 1.5-5.0 Barrow # 0.4 10 Normal 0.0-0.8 Eos # 0.0 10 Normal 0.0-0.5 Baso # 0.0 10 Normal 0.0-0.2 CBC With Differential 03/10/2021 [place] [address] [phone] White Blood Count 3.4 10 Low 4.0-10.0 [...] 36.0-66.0 Lymph % 7.6 % Low 24.0-44.0 Barrow % 12.9 % High 2.0-8.0 Eos % 1.2 % Normal 0.0-3.0 Baso % 0.6 % Normal 0.0-1.0 Immature Granulocyte % 0.3 % Normal 0-3.0 Nucleated Red Blood Cell % 0.0 % Normal 0-0 Neutrophils # 2.6 10 Normal 1.5-8.5 Lymph # 0.3 10 Low 1.5-5.0 Barrow # 0.4 10 Normal 0.0-0.8 Eos # 0.0 10 Normal 0.0-0.5 Baso # 0.0 10 Normal 0.0-0.2 Comprehensive Metabolic Profil 03/10/2021 Patient S [place] [id number] [phone] Glucose, Fasting 166 mg/dL High 70-100 Blood Urea Nitrogen 26 mg/dL High 7-18 Creatinine For GFR 0.73 mg/dL Normal 0.55-1.30 Glomerular Filtration Rate > 60.0 Normal >32 2 0 Sodium Level 141 mEq/L Normal 136-145 [...] Binding Capacit 03/10/2021 [place] [address] [phone] Iron (Fe) 72 g/dL Normal 50-170 Total Iron Binding Capacity 352 g/dL Normal 250-450 Percent Saturation 20.5 % Normal 13.2-45.0 Laboratory test finding 03/10/2021 Patient [facility] [place] 2140284 [phone] Carcinoembryonic Antigen < 0.5 NG/ML Normal <2.5 21 Ferritin 492 NG/ML High 8-252 Laboratory test finding 02/28/2021 Patient Service Center [place] [address]0207 [phone] Packed Cells TRANSFUSED PRODU <SEE NOTE> 22 Type & Screen -Incl Blood Type,Tye,AB SC 02/28/2021 [place] [address] [phone] Blood Type O POSITIVE Normal AB Screen (Indirect Farooq)Vis NEGATIVE Normal CBC With Differential 02/27/2021 [place] [address] [phone] White Blood Count 6.0 10 Normal 4.0-10.0 [...] 36.0-66.0 Lymph % 4.7 % Low 24.0-44.0 Barrow % 11.6 % High 2.0-8.0 Eos % 0.5 % Normal 0.0-3.0 Baso % 0.3 % Normal 0.0-1.0 Immature Granulocyte % 0.8 % Normal 0-3.0 Nucleated Red Blood Cell % 0.3 % High 0-0 Neutrophils # 4.9 10 Normal 1.5-8.5 Lymph # 0.3 10 Low 1.5-5.0 Barrow # 0.7 10 Normal 0.0-0.8 Eos # 0.0 10 Normal 0.0-0.5 Baso # 0.0 10 Normal 0.0-0.2 Laboratory test finding 02/27/2021 [place] [address] [phone] Ferritin 1039 NG/ML High 8-252 Creatinine With GFR 02/27/2021 Patient Service [facility] [address] [phone] Creatinine For GFR 0.76 mg/dL Normal 0.55-1.30 Glomerular Filtration Rate > 60.0 Normal >32 2 3 Laboratory test finding 02/27/2021 [place] [address] [phone] Blood Urea Nitrogen 26 mg/dL High 7-18 Total Iron Binding Capacit 02/27/2021 [place] [address] [phone] Iron (Fe) 79 g/dL Normal 50-170 Total Iron Binding Capacity 384 g/dL Normal 250-450 Percent Saturation 20.6 % Normal 13.2-45.0 Laboratory test finding 02/10/2021 [place] [address] [phone] Packed Cells TRANSFUSED PRODU <SEE NOTE> 24 Type & Screen -Incl Blood Type,Tye,AB SC 02/10/2021 [place] [address] [phone] Blood Type O POSITIVE Normal AB Screen (Indirect Farooq)Vis NEGATIVE Normal CBC With Differential 02/09/2021 [place] [address] [phone] White Blood Count 3.9 10 Low 4.0-10.0 [...] 36.0-66.0 Lymph % 7.2 % Low 24.0-44.0 Barrow % 10.0 % High 2.0-8.0 Eos % 1.0 % Normal 0.0-3.0 Baso % 0.5 % Normal 0.0-1.0 Immature Granulocyte % 0.5 % Normal 0-3.0 Nucleated Red Blood Cell % 0.0 % Normal 0-0 Neutrophils # 3.1 10 Normal 1.5-8.5 Lymph # 0.3 10 Low 1.5-5.0 Barrow # 0.4 10 Normal 0.0-0.8 Eos # 0.0 10 Normal 0.0-0.5 Baso # 0.0 10 Normal 0.0-0.2 CBC With Differential 01/27/2021 Patient Service [place] 7068168 [phone] White Blood Count 4.2 10 Normal 4.0-10.0 [...] 36.0-66.0 Lymph % 13.6 % Low 24.0-44.0 Barrow % 14.6 % High 2.0-8.0 Eos % 1.4 % Normal 0.0-3.0 Baso % 0.5 % Normal 0.0-1.0 Immature Granulocyte % 0.5 % Normal 0-3.0 Nucleated Red Blood Cell % 0.0 % Normal 0-0 Neutrophils # 2.9 10 Normal 1.5-8.5 Lymph # 0.6 10 Low 1.5-5.0 Barrow # 0.6 10 Normal 0.0-0.8 Eos # 0.1 10 Normal 0.0-0.5 Baso # 0.0 10 Normal 0.0-0.2 Comprehensive Metabolic Profil 01/27/2021 [place] [address]4432 [phone] Glucose, Fasting 59 mg/dL Low 70-100 Blood [...] Iron Binding Capacit 01/27/2021 [place] [address] [phone] Iron (Fe) 59 g/dL Normal 50-170 Total Iron Binding Capacity 397 g/dL Normal 250-450 Percent Saturation 14.9 % Normal 13.2-45.0 Laboratory test finding 01/27/2021 [place] [address] [phone] Ferritin 39 NG/ML Normal 8-252 Carcinoembryonic Antigen 0.5 NG/ML Normal <2.5 26 Creatinine With GFR 01/20/2021 [place] [address] [phone] Creatinine For GFR 0.69 mg/dL Normal 0.55-1.30 Glomerular Filtration Rate > 60.0 Normal >32 2 7 Type & Screen -Incl Blood Type,Tye,AB [place] 01/20/2021 [place] [address] [phone] Blood Type O POSITIVE Normal AB Screen (Indirect Farooq)Vis NEGATIVE Normal Laboratory test finding 01/20/2021 [place] [address] [phone] Blood Urea Nitrogen 21 mg/dL High 7-18 Complete Blood Count 01/20/2021 Patient Service [place] 5196558 [phone] White Blood Count 3.3 10 Low 4.0-10.0 [...] Blood Cell % 0.0 % Normal 0-0 Coronavirus 2019 Nasopharygeal 01/16/2021 Patient S ervice Center [place] [address]0208 [phone] Coronavirus 2019 Nasopharygeal ASSAY INFORMATIO <SEE N OTE> 28 Type & Screen -Incl Blood Type,Tye,AB [place] 01/03/2021 Patient Service [place] 3275826 [phone] Blood Type O POSITIVE Normal AB Screen (Indirect Farooq)Vis NEGATIVE Normal Laboratory test finding 01/03/2021 Patient Service [place] 3275845 [phone] Packed Cells TRANSFUSED PRODU <SEE NOTE> 29 CBC With Differential 01/02/2021 Patient Service Ce er [place], [place] [address]2581 [phone] White Blood Count 4.3 10 Normal 4.0-10.0 [...] 36.0-66.0 Lymph % 10.7 % Low 24.0-44.0 Barrow % 13.1 % High 2.0-8.0 Eos % 0.7 % Normal 0.0-3.0 Baso % 0.5 % Normal 0.0-1.0 Immature Granulocyte % 0.5 % Normal 0-3.0 Nucleated Red Blood Cell % 0.0 % Normal 0-0 Neutrophils # 3.2 10 Normal 1.5-8.5 Lymph # 0.5 10 Low 1.5-5.0 Barrow # 0.6 10 Normal 0.0-0.8 Eos # 0.0 10 Normal 0.0-0.5 Baso # 0.0 10 Normal 0.0-0.2 Comprehensive Metabolic Profil 01/02/2021 Patient S [place], [place] [address]59382 [phone] Glucose, Fasting 155 mg/dL High 70-100 Blood Urea Nitrogen 24 mg/dL High 7-18 Creatinine For GFR 0.85 mg/dL Normal 0.55-1.30 Glomerular Filtration Rate > 60.0 Normal >32 3 0 Sodium Level 137 mEq/L Normal 136-145 Potassium [...] Binding Capacit 01/02/2021 [place] [address] [phone] Iron (Fe) 55 g/dL Normal 50-170 Total Iron Binding Capacity 398 g/dL Normal 250-450 Percent Saturation 13.8 % Normal 13.2-45.0 Laboratory test finding 01/02/2021 [place] [address] [phone] Thyroid Stimulating Hormone 1.660 uIU/ML Normal 0. 358-3.740 Free T4 0.87 ng/dL Normal 0.76-1.46 Ferritin 58 NG/ML Normal 8-252 Laboratory test finding 12/23/2020 [place] [address] [phone] iSTAT Troponin 0.01 NG/ML Normal 0.00-0.08 Laboratory test finding 12/23/2020 [place] [address] [phone] Lipase 73 U/L Normal 73-393 Lactic Acid Sepsis Protocol 0.8 mmol/L Normal 0.4-2.0 31 Liver Profile 12/23/2020 [place] [address] [phone] Ast/Sgot 13 U/L Normal 7-37 Alt/SGPT 14 U/L Normal 12-78 Alkaline Phosphatase 95 U/L Normal 45-117 Bilirubin,Total 0.9 mg/dL Normal 0.2-1.0 Bilirubin,Direct 0.3 mg/dL High 0.0-0.2 Total Protein 6.5 GM/DL Normal 6.4-8.2 Albumin 3.4 GM/DL Normal 3.2-5.2 Albumin/Globulin Ratio 1.1 Low 1.2-2.2 CBC With Differential 12/23/2020 Patient Service Ce nter [facility] [place] [place] [address] [phone] White Blood Count 4.5 10 Normal 4.0-10.0 [...] 36.0-66.0 Lymph % 9.7 % Low 24.0-44.0 Barrow % 11.9 % High 2.0-8.0 Eos % 0.9 % Normal 0.0-3.0 Baso % 0.4 % Normal 0.0-1.0 Immature Granulocyte % 0.4 % Normal 0-3.0 Nucleated Red Blood Cell % 0.0 % Normal 0-0 Neutrophils # 3.5 10 Normal 1.5-8.5 Lymph # 0.4 10 Low 1.5-5.0 Barrow # 0.5 10 Normal 0.0-0.8 Eos # 0.0 10 Normal 0.0-0.5 Baso # 0.0 10 Normal 0.0-0.2 Istat Chem8+ Panel 12/23/2020 Patient Service [facility] er [facility] [place] [place] [address] [phone] iSTAT HCT 33.0 % Low 38.0-51.0 iSTAT Glucose 94 mg/dL Normal 70-105 iSTAT Sodium 138 mEq/L Normal 136-145 iSTAT Potassium 4.2 mEq/L Normal 3.5-5.1 iSTAT CA++ 5.0 mg/dL Normal 4.5-5.3 iSTAT Chloride 102 mEq/L Normal 98-109 iSTAT Co2 27.0 MM/L Normal 23.0-27.0 iSTAT BUN 20 mg/dL Normal 8-26 iSTAT Creatinine 0.7 mg/dL Normal 0.6-1.3 PT & Aptt 12/23/2020 [place] [address] [phone] Prothrombin Time 13.3 seconds Normal 12.5-14.3 Inr 0.99 Normal 32 Partial Thromboplastin Time 29.5 seconds Normal 24.2-38.5 CBC With Differential 12/19/2020 [place] [address] [phone] White Blood Count 3.8 10 Low 4.0-10.0 [...] 36.0-66.0 Lymph % 11.7 % Low 24.0-44.0 Barrow % 11.9 % High 2.0-8.0 Eos % 1.1 % Normal 0.0-3.0 Baso % 0.3 % Normal 0.0-1.0 Immature Granulocyte % 0.5 % Normal 0-3.0 Nucleated Red Blood Cell % 0.0 % Normal 0-0 Neutrophils # 2.8 10 Normal 1.5-8.5 Lymph # 0.4 10 Low 1.5-5.0 Barrow # 0.5 10 Normal 0.0-0.8 Eos # 0.0 10 Normal 0.0-0.5 Baso # 0.0 10 Normal 0.0-0.2 CBC With Differential 12/05/2020 [place] [address] [phone] White Blood Count 3.4 10 Low 4.0-10.0 [...] 36.0-66.0 Lymph % 12.8 % Low 24.0-44.0 Barrow % 13.7 % High 2.0-8.0 Eos % 1.2 % Normal 0.0-3.0 Baso % 0.6 % Normal 0.0-1.0 Immature Granulocyte % 0.3 % Normal 0-3.0 Nucleated Red Blood Cell % 0.0 % Normal 0-0 Neutrophils # 2.4 10 Normal 1.5-8.5 Lymph # 0.4 10 Low 1.5-5.0 Barrow # 0.5 10 Normal 0.0-0.8 Eos # 0.0 10 Normal 0.0-0.5 Baso # 0.0 10 Normal 0.0-0.2 PT & Aptt 12/05/2020 [place] [address] [phone] Prothrombin Time 13.3 seconds Normal 12.5-14.3 Inr 0.99 Normal 33 Partial Thromboplastin Time 29.4 seconds Normal 24.2-38.5 Total Iron Binding Capacit 12/05/2020 [place] [address] [phone] Iron (Fe) 94 g/dL Normal 50-170 Total Iron Binding Capacity 350 g/dL Normal 250-450 Percent Saturation 26.9 % Normal 13.2-45.0 Laboratory test finding 12/05/2020 [place] [address] [phone] Ferritin 108 NG/ML Normal 8-252 Complete Blood Count 11/25/[address] [place] [address] [phone] White Blood Count 4.4 10 Normal 4.0-10.0 [...] Blood Cell % 1.6 % High 0-0 Type & Screen -Incl Blood Type,Tye,AB SC 11/25/2020 [place] [address] [phone] Blood Type O POSITIVE Normal AB Screen (Indirect Farooq)Vis NEGATIVE Normal Laboratory test finding 11/25/2020 Patient Service [place] 3275846 [phone] NT-Pro BNP 1795 pg/mL High <450 Cardiac Marker Panel 11/25/2020 [place] [address] [phone] CPK Creatine Phosphokinase 60 U/L Normal 26-19 2 CK-MB Value Mass 1.3 NG/ML Normal <3.6 MB/CK Relative Index 2.17 Normal < Or =4 34 Troponin I < 0.02 NG/ML Normal < 0.10 35 Comprehensive Metabolic Profil 11/25/2020 [place] [address] [phone] Glucose, Fasting 110 mg/dL High 70-100 Blood [...] Low 3.2-5.2 Albumin/Globulin Ratio 1.0 Low 1.2-2.2 PT & Aptt 11/25/[address] [facility] [place] [address] [phone] Prothrombin Time 16.4 seconds High 12.5-14.3 Inr 1.29 Normal 37 Partial Thromboplastin Time 33.4 seconds Normal 24.2-38.5 CBC With Differential 11/07/2020 [facility] [place] [address] [phone] White Blood Count 3.2 10 Low 4.0-10.0 Red Blood Count 3.04 10 Low 4.00-5.40 Hemoglobin 9.1 g/dL Low 12.0-15.5 Hematocrit 29.6 % Low 36.0-47.0 Mean Corpuscular Volume 97.4 fl High 80.0-96.0 Mean Corpuscular Hemoglobin 29.9 pg Normal 27.0-33.0 Mean Corpuscular HGB Conc 30.7 g/dL Low 32.0-36.5 Red Cell Distribution Width 16.1 % High 11.5-14.5 Platelet Count, Automated 258 10 Normal 150-450 Neutrophils % 74.4 % High 36.0-66.0 Lymph % 10.5 % Low 24.0-44.0 Barrow % 13.3 % High 2.0-8.0 Eos % 0.9 % Normal 0.0-3.0 Baso % 0.6 % Normal 0.0-1.0 Immature Granulocyte % 0.3 % Normal 0-3.0 Nucleated Red Blood Cell % 0.0 % Normal 0-0 Neutrophils # 2.4 10 Normal 1.5-8.5 Lymph # 0.3 10 Low 1.5-5.0 Barrow # 0.4 10 Normal 0.0-0.8 Eos # 0.0 10 Normal 0.0-0.5 Baso # 0.0 10 Normal 0.0-0.2 Comprehensive Metabolic Profil 11/07/2020 [place] [address] [phone] Glucose, Fasting 142 mg/dL High 70-100 Blood Urea Nitrogen 17 mg/dL Normal 7-18 Creatinine For GFR 0.72 mg/dL Normal 0.55-1.30 Glomerular Filtration Rate > 60.0 Normal >32 3 8 Sodium Level 140 mEq/L Normal 136-145 Potassium Serum 4.2 mEq/L Normal 3.5-5.1 Chloride Level 106 mEq/L Normal 98-107 Carbon Dioxide Level 29 mEq/L Normal 21-32 Anion Gap 5 mEq/L Low 8-16 Calcium Level 9.2 mg/dL Normal 8.8-10.2 Ast/Sgot 10 U/L Normal 7-37 Alt/SGPT 15 U/L Normal 12-78 Alkaline Phosphatase 107 U/L Normal 45-117 Bilirubin,Total 0.7 mg/dL Normal 0.2-1.0 Total Protein 7.0 GM/DL Normal 6.4-8.2 Albumin 3.3 GM/DL Normal 3.2-5.2 Albumin/Globulin Ratio 0.9 Low 1.2-2.2 Total Iron Binding Capacit 11/07/2020 [place] [address] [phone] Iron (Fe) 43 g/dL Low 50-170 Total Iron Binding Capacity 302 g/dL Normal 250-450 Percent Saturation 14.2 % Normal 13.2-45.0 Laboratory test finding 11/07/2020 [facility] [place] [address] [phone] Ferritin 207 NG/ML Normal 8-252 1 TRANSFUSED PRODUCT: PACKED C ELLS COUNT: 1 2 THERAPUTIC HUMAN INR VALUES INDICATIONS NORMAL RANGES PROPHYLAXIS/TREATMENT OF: VENOUS THROMBOSIS 2.0-3.0 PULMONARY EMBOLISM 2.0-3.0 PREVENTION OF SYSTEMIC EMBOLISM FROM: TISSUE HEART VALVES 2.0-3.0 ACUTE MYOCARDIAL INFARCTION 2.0-3.0 VALVULAR HEART DISEASE 2.0-3.0 ATRIAL FIBRILLATION 2.0-3.0 MECHANICAL VALVES(HIGH RISK) 2.5-3.5 RECURRENT MYOCARDIAL INFARCTION 2.5-3.5 3 UNABLE TO PERFORM TEST DUE T O hct <35% 4 TRANSFUSED PRODUCT: PACKED C ELLS COUNT: 2 5 ASSAY INFORMATION: Real Time RT-PCR or TMA. Both RT-PCR and TMA are nucleic acid amplification tests (NAAT) which are molecular testing modalities and recommended by the CDC for passenger travel. Testing and International Air Travel, cdc.gov/coronavirus/2019-ncov/travelers/tnzveic-cli-vqdhse.html 09/01/2020 NOTE: The COVID-19 assay is under Emergency Use Authorization (EUA) by the U.S. Food and Drug Administration. [facility] and [email or web address] are designated as high complexity laboratories by the Clinical Laboratory Improvement Amendments of 1988 (CLIA) and are qualified to perform this test. Not Detected 6 Units are mL/min/1.73 m2 Chronic Kidney Disease Staging per NKF: Stage I & II GFR >=60 Normal to Mildly Decreased Stage III GFR 30-59 Moderately Decreased Stage IV GFR 15-29 Severely Decreased Stage V GFR <15 Very Little GFR Left ESRD GFR <15 on FACE HARDENER 7 THE CEA ASSAY IS PERFORMED O N THE [employer] BY CHEMILUMINESCENCE AND SHOULD NOT BE COMPARED INTERCHANGEABLY WITH OTHER METHODS. IT SHOULD NOT BE USED ALONE A SCREENING TEST OR DIAGNOSIS FOR THE PRESENCE OR ABSENCE OF MALIGNANT DISEASE. PREDICTIONS OF DISEASE RECURRENCE SHOULD NOT BE BASED SOLELY ON VALUES OBTAINED FROM SERIAL PATIENT SERUM VALUES. 8 TRANSFUSED PRODUCT: PACKED C ELLS COUNT: 3 9 Units are mL/min/1.73 m2 Chronic Kidney Disease Staging per NKF: Stage I & II GFR >=60 Normal to Mildly Decreased Stage III GFR 30-59 Moderately Decreased Stage IV GFR 15-29 Severely Decreased Stage V GFR <15 Very Little GFR Left ESRD GFR <15 on FACE HARDENER 10 Negative results do not prec lude influenza or RSV virus infection and should not be used as the sole basis for treatment or other patient management decisions. 11 Negative results do not prec lude influenza or RSV virus infection and should not be used as the sole basis for treatment or other patient management decisions. 12 Negative results do not prec lude influenza or RSV virus infection and should not be used as the sole basis for treatment or other patient management decisions. 13 A false negative result may occur if [...] pathogens. DISCLAIMER: Testing was performed using the [employer] SARS-CoV-2 test. This test was developed and its performance characteristics determined by [employer]. This test has not been FDA [...] the authorization is terminated or revoked sooner. 14 TRANSFUSED PRODUCT: PACKED C ELLS COUNT: 1 15 [facility] currently reports eGFR in compliance with the current recommendations of the National Kidney Foundation. [facility] will update reporting as new guidelines are published from the NKF-ASN Task force. 16 Effective March 27 21 Alkaline Phosphatase reference [...] years 44 - 121 44 - 121 17 Prediabetes: 5.7 - 6.4 Diabetes: >6.4 Glycemic control for adults with diabetes: <7.0 18 Normal: 0 - 29 Moderately increased: 30 - 300 Severely increased: >300 19 TRANSFUSED PRODUCT: PACKED C ELLS COUNT: 2 20 Units are mL/min/1.73 m2 Chronic Kidney Disease Staging per NKF: Stage I & II GFR >=60 Normal to Mildly Decreased Stage III GFR 30-59 Moderately Decreased Stage IV GFR 15-29 Severely Decreased Stage V GFR <15 Very Little GFR Left ESRD GFR <15 on FACE HARDENER 21 THE CEA ASSAY IS PERFORMED O N THE [employer] BY CHEMILUMINESCENCE AND SHOULD NOT BE COMPARED INTERCHANGEABLY WITH OTHER METHODS. IT SHOULD NOT BE USED ALONE A SCREENING TEST OR DIAGNOSIS FOR THE PRESENCE OR ABSENCE OF MALIGNANT DISEASE. PREDICTIONS OF DISEASE RECURRENCE SHOULD NOT BE BASED SOLELY ON VALUES OBTAINED FROM SERIAL PATIENT SERUM VALUES. 22 TRANSFUSED PRODUCT: PACKED C ELLS COUNT: 2 23 Units are mL/min/1.73 m2 Chronic Kidney Disease Staging per NKF: Stage I & II GFR >=60 Normal to Mildly Decreased Stage III GFR 30-59 Moderately Decreased Stage IV GFR 15-29 Severely Decreased Stage V GFR <15 Very Little GFR Left ESRD GFR <15 on FACE HARDENER 24 TRANSFUSED PRODUCT: PACKED C ELLS COUNT: 2 25 Units are mL/min/1.73 m2 Chronic Kidney Disease Staging per NKF: Stage I & II GFR >=60 Normal to Mildly Decreased Stage III GFR 30-59 Moderately Decreased Stage IV GFR 15-29 Severely Decreased Stage V GFR <15 Very Little GFR Left ESRD GFR <15 on FACE HARDENER 26 THE CEA ASSAY IS PERFORMED O N THE [employer] [facility] BY CHEMILUMINESCENCE AND SHOULD NOT BE COMPARED INTERCHANGEABLY WITH OTHER METHODS. IT SHOULD NOT BE USED ALONE A SCREENING TEST OR DIAGNOSIS FOR THE PRESENCE OR ABSENCE OF MALIGNANT DISEASE. PREDICTIONS OF DISEASE RECURRENCE SHOULD NOT BE BASED SOLELY ON VALUES OBTAINED FROM SERIAL PATIENT SERUM VALUES. 27 Units are mL/min/1.73 m2 Chronic Kidney Disease Staging per NKF: Stage I & II GFR >=60 Normal to Mildly Decreased Stage III GFR 30-59 Moderately Decreased Stage IV GFR 15-29 Severely Decreased Stage V GFR <15 Very Little GFR Left ESRD GFR <15 on FACE HARDENER 28 ASSAY INFORMATION: Real Time RT-PCR NOTE: The COVID-19 assay has been cleared by the U.S. Food and Drug Administration under the Emergency Use Authorization (EUA). [facility] and [email or web address] are designated as high complexity laboratories by the Clinical Laboratory Improvement Amendments of 1988(CLIA) and are qualified to perform this test. Not Detected 29 TRANSFUSED PRODUCT: PACKED C ELLS COUNT: 1 30 Units are mL/min/1.73 m2 Chronic Kidney Disease Staging per NKF: Stage I & II GFR >=60 Normal to Mildly Decreased Stage III GFR 30-59 Moderately Decreased Stage IV GFR 15-29 Severely Decreased Stage V GFR <15 Very Little GFR Left ESRD GFR <15 on FACE HARDENER 31 Y/N query for Sepsis Lactate Rule: Y 32 THERAPUTIC HUMAN INR VALUES INDICATIONS NORMAL RANGES PROPHYLAXIS/TREATMENT OF: VENOUS THROMBOSIS 2.0-3.0 PULMONARY EMBOLISM 2.0-3.0 PREVENTION OF SYSTEMIC EMBOLISM FROM: TISSUE HEART VALVES 2.0-3.0 ACUTE MYOCARDIAL INFARCTION 2.0-3.0 VALVULAR HEART DISEASE 2.0-3.0 ATRIAL FIBRILLATION 2.0-3.0 MECHANICAL VALVES(HIGH RISK) 2.5-3.5 RECURRENT MYOCARDIAL INFARCTION 2.5-3.5 33 THERAPUTIC HUMAN INR VALUES INDICATIONS NORMAL RANGES PROPHYLAXIS/TREATMENT OF: VENOUS THROMBOSIS 2.0-3.0 PULMONARY EMBOLISM 2.0-3.0 PREVENTION OF SYSTEMIC EMBOLISM FROM: TISSUE HEART VALVES 2.0-3.0 ACUTE MYOCARDIAL INFARCTION 2.0-3.0 VALVULAR HEART DISEASE 2.0-3.0 ATRIAL FIBRILLATION 2.0-3.0 MECHANICAL VALVES(HIGH RISK) 2.5-3.5 RECURRENT MYOCARDIAL INFARCTION 2.5-3.5 34 DIAGNOSIS CRITERIA MMB ng/ml Relative Index (RI) NON-AMI < or = 5 N/A LEVINE ZONE > 5 < or = 4 AMI > 5 > 4 35 Troponin I Reference Interva l for Aras LOCI: 99th Percentile= 0.00-0.045 ng/ml Risk Stratification: <= 0.10 ng/ml Decreased Risk for Adverse Clinical Events. 0.10-1.50 ng/ml Increased Risk for Adv erse Clinical Events. Evaluation of additional criterion and/or repeat testing in 2-6 hours is suggested to rule out myocardial damage. >= 1.50 ng/ml Indicative of Myocardial Injury. 36 Units are mL/min/1.73 m2 Chronic Kidney Disease Staging per NKF: Stage I & II GFR >=60 Normal to Mildly Decreased Stage III GFR 30-59 Moderately Decreased Stage IV GFR 15-29 Severely Decreased Stage V GFR <15 Very Little GFR Left ESRD GFR <15 on FACE HARDENER 37 THERAPUTIC HUMAN INR VALUES INDICATIONS NORMAL RANGES PROPHYLAXIS/TREATMENT OF: VENOUS THROMBOSIS 2.0-3.0 PULMONARY EMBOLISM 2.0-3.0 PREVENTION OF SYSTEMIC EMBOLISM FROM: TISSUE HEART VALVES 2.0-3.0 ACUTE MYOCARDIAL INFARCTION 2.0-3.0 VALVULAR HEART DISEASE 2.0-3.0 ATRIAL FIBRILLATION 2.0-3.0 MECHANICAL VALVES(HIGH RISK) 2.5-3.5 RECURRENT MYOCARDIAL INFARCTION 2.5-3.5 38 Units are mL/min/1.73 m2 Chronic Kidney Disease Staging per NKF: Stage I & II GFR >=60 Normal to Mildly Decreased Stage III GFR 30-59 Moderately Decreased Stage IV GFR 15-29 Severely Decreased Stage V GFR <15 Very Little GFR Left ESRD GFR <15 on FACE HARDENER Procedures Date Code Description Status 03/28/2021 [id number] [place] W/I 7 Days Of DC, Comm W/I 2 Dys Completed 03/23/2021 [id number] Office/Outpatient Established Mo d MDM 30-39 Min Completed 03/23/2021 [id number] Diabetic Foot Exam Completed 01/25/2021 [id number] [place] W/I 7 Days Of DC, Comm W/I 2 Dys Completed 12/27/2020 [id number] Office/Outpatient Established Mo d MDM 30-39 Min Completed 12/19/2020 [id number] Office/Outpatient Established Mo d MDM 30-39 Min Completed 12/02/2020 [id number] [place] W/I 7 Days Of DC, [...] unspecified Office Visit 12/19/2020 2:15p Main Office PleskachStevey, GREENKEEPER E11.6 9 Type 2 diabetes mellitus with other specified complication E78.2 Mixed hyperlipidemia I10 Essential (primary) hyperten yara 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 C18.9 Malignant neoplasm of colon, unspecified I48.91 Unspecified atrial fibrillat ion Office Visit 12/02/2020 10:30a Main Office Pleskach Nadiya, GREENKEEPER D64.9 Anemia, unspecified E11.69 Type 2 diabetes mellitus wit h other specified complication E78.2 Mixed hyperlipidemia I10 Essential (primary) hyperten yraa 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 C18.9 Malignant neoplasm of colon, unspecified I48.91 Unspecified atrial fibrillat ion Assessments Date Code Description Provider 03/28/2021 D64.9 Anemia, unspecified Pleskach, Mo lly, [facility] 03/28/2021 K29.61 Other gastritis with bleeding Pl Steve hogany, GREENKEEPER 03/23/2021 E11.69 Type 2 diabetes mellitus with ot her specified complication Pleskach, Nadiya, GREENKEEPER 03/23/2021 C18.9 Malignant neoplasm of colon, uns pecified Plegudeliaach Nadiya, GREENKEEPER 03/23/2021 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 Plealexy Nadiya , GREENKEEPER 03/23/2021 E78.2 Mixed hyperlipidemia Pleskach, M jarocho, GREENKEEPER 03/23/2021 I10 Essential (primary) hypertension Pleskach Nadiya, GREENKEEPER 03/23/2021 I48.91 Unspecified atrial fibrillation Pleskach Nadiya, GREENKEEPER 03/23/2021 D64.9 Anemia, unspecified Pleskach, Mo lly, GREENKEEPER 01/25/2021 D64.9 Anemia, unspecified Pleskach, Mo lly, GREENKEEPER 01/25/2021 K29.61 Other gastritis with bleeding Pl eskach Nadiya, GREENKEEPER 12/27/2020 E11.69 Type 2 diabetes mellitus with ot her specified complication Anitha Gamez M.D. 12/27/2020 C18.9 Malignant neoplasm of colon, uns pecified Anitha Gamez M.D. 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 12/27/2020 D64.9 Anemia, unspecified Angela Gamez M.D. 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 Pleskach, Nadiya , GREENKEEPER 12/19/2020 C18.9 Malignant neoplasm of colon, uns pecified Pleskach, Nadiya, GREENKEEPER 12/19/2020 I48.91 Unspecified atrial fibrillation Pleskach, Nadiya, GREENKEEPER 12/02/2020 D64.9 Anemia, unspecified Pleskach, Mo lly, GREENKEEPER 12/02/2020 E11.69 Type 2 diabetes mellitus with ot her specified complication Pleskach, Nadiya, GREENKEEPER 12/02/2020 E78.2 Mixed hyperlipidemia Pleskach, M jarocho, GREENKEEPER 12/02/2020 I10 Essential (primary) hypertension Pleskach, Nadiya, GREENKEEPER 12/02/2020 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
--- OUTSIDE RECORDS SUMMARY | 2021-05-23 16:55 | CCD | Continuity of Care Document ---
Author Author Meron [employer] Organization Unknown Address [address] [place] [address] Phone [phone] Care Team Providers Care Auto Wrecker Name Role Phone [facility] AUTM [phone] Niels Decker M.D. AUTM [phone] [facility] AUTM Jeff Cramer AUTM [phone] Problems Active Problems Provider Date Type 2 [...] 236units C18.9 Nadiya Bryan FNP 06/16/2020 Z93.2 [place] Remover Wipes Misc use 3-4 wipes every 4 days and as needed when changing ostomy 2Box Z93.2 Nadiya Bryan FNP 06/16/2020 C18.9 Efren Adapt Ceraing change every 4-5 days and as needed ref #[id number] 05 20units Nadiya Bryan FNP 05/05/2020 Horatio 2 Piece Ostomy Skin Barrier ref # [id number] márquez ge every 4-5 days and as needed 20units C18.9 Nadiya Bryan FNP 04/14/2020 Z93.2 Horatio 2 Piece Drainable Ostomy Pouch ref # [id number] c hange every 4-5 days and as [...] CPT Code Status Date Vaccine Lot # 35585 Refused 04/17/2016 Pneumococcal Vaccine 48473 Refused 04/17/2016 Prevnar 13 14497 Refused 04/17/2016 Influenza Vaccination Vital Signs Date Vital Result Comment 03/28/2021 11:51am BP Systolic 113 mmHg BP Diastolic 83 mmHg Heart Rate 127 /min Body Temperature 98.0 F Respiratory Rate 18 /min Height 61.5 inches 5'1.50" Weight 114.38 lb O2 % BldC Oximetry 100 % [place] Body Weight 105 lb BMI (Body Mass Index) 21.3 kg/m2 03/23/2021 3:47pm BP Systolic 110 mmHg BP Diastolic 62 mmHg Heart Rate 64 /min Body Temperature 98.7 F Respiratory Rate 16 /min Height 61.5 inches 5'1.50" Weight 116.38 lb O2 % BldC Oximetry 99 % [place] Body Weight 105 lb BMI (Body Mass Index) 21.6 kg/m2 Results Test Acquired Date Facility Test Result H/L Range Note Type & Screen -Incl Blood Type,Tye,AB SC 05/08/2021 [facility] [place], [place] [id number] [phone] Blood Type O POSITIVE Normal AB Screen (Indirect Farooq)Vis NEGATIVE Normal CBC With Differential 05/08/2021 [place] [address] [phone] White Blood Count 4.8 10 Normal 4.0-10.0 [...] 36.0-66.0 Lymph % 5.2 % Low 24.0-44.0 [place] % 11.2 % High 2.0-8.0 Eos % 1.4 % Normal 0.0-3.0 Baso % 0.4 % Normal 0.0-1.0 Immature Granulocyte % 0.4 % Normal 0-3.0 Nucleated Red Blood Cell % 0.0 % Normal 0-0 Neutrophils # 3.9 10 Normal 1.5-8.5 Lymph # 0.3 10 Low 1.5-5.0 [place] # 0.5 10 Normal 0.0-0.8 Eos # 0.1 10 Normal 0.0-0.5 Baso # 0.0 10 Normal 0.0-0.2 Laboratory test finding 05/08/2021 [place] [address] [phone] Packed Cells TRANSFUSED PRODU <SEE NOTE> 1 Retic (Reticulocyte Count) 05/05/2021 [place] [address] [phone] Reticulocyte % 5.9 % High 0.5-1.5 Reticulocyte # 119.8 10 High 17-77 Retic Hemoglobin Equivalent 30.7 pg Normal 24-36 Prothrombin Time/Inr 05/05/[address] [place] [address] [phone] Prothrombin Time 14.0 seconds Normal 12.7-14.5 Inr 1.04 Normal 2 Laboratory test finding 05/05/2021 [place] [address] [phone] Partial Thromboplastin Time 24.9 seconds Low 25 .9-37.0 Platelet Function Analysis 05/05/2021 [place] [address] [phone] Collagen Epinephrine TNP seconds Normal 74-162 3 Laboratory test finding 05/05/2021 [place] [address] [phone] LDH Lactate Dehydrogenase 128 U/L Normal 84-246 CBC With Differential 05/05/2021 Patient Service Ce [facility]ter [place] [address]170 [phone] White Blood Count 5.1 10 Normal 4.0-10.0 [...] 36.0-66.0 Lymph % 6.3 % Low 24.0-44.0 [place] % 11.5 % High 2.0-8.0 Eos % 0.8 % Normal 0.0-3.0 Baso % 0.4 % Normal 0.0-1.0 Immature Granulocyte % 0.6 % Normal 0-3.0 Nucleated Red Blood Cell % 0.0 % Normal 0-0 Neutrophils # 4.1 10 Normal 1.5-8.5 Lymph # 0.3 10 Low 1.5-5.0 [place] # 0.6 10 Normal 0.0-0.8 Eos # 0.0 10 Normal 0.0-0.5 Baso # 0.0 10 Normal 0.0-0.2 Type & Screen -Incl Blood Type,Tye,AB SC 05/05/2021 [place] [address] [phone] Blood Type O POSITIVE Normal AB Screen (Indirect Farooq)Vis NEGATIVE Normal Laboratory test finding 05/05/2021 [place] [address] [phone] Packed Cells TRANSFUSED PRODU <SEE NOTE> 4 CBC With Differential 04/27/2021 [place] [address] [phone] White Blood Count 4.2 10 Normal 4.0-10.0 [...] 36.0-66.0 Lymph % 8.1 % Low 24.0-44.0 [place] % 12.8 % High 2.0-8.0 Eos % 1.0 % Normal 0.0-3.0 Baso % 0.2 % Normal 0.0-1.0 Immature Granulocyte % 0.5 % Normal 0-3.0 Nucleated Red Blood Cell % 0.0 % Normal 0-0 Neutrophils # 3.3 10 Normal 1.5-8.5 Lymph # 0.3 10 Low 1.5-5.0 [place] # 0.5 10 Normal 0.0-0.8 Eos # 0.0 10 Normal 0.0-0.5 Baso # 0.0 10 Normal 0.0-0.2 CBC With Differential 04/20/2021 [place] [address] [phone] White Blood Count 3.9 10 Low 4.0-10.0 [...] 36.0-66.0 Lymph % 8.8 % Low 24.0-44.0 [place] % 11.9 % High 2.0-8.0 Eos % 1.0 % Normal 0.0-3.0 Baso % 0.5 % Normal 0.0-1.0 Immature Granulocyte % 0.8 % Normal 0-3.0 Nucleated Red Blood Cell % 0.0 % Normal 0-0 Neutrophils # 3.0 10 Normal 1.5-8.5 Lymph # 0.3 10 Low 1.5-5.0 [place] # 0.5 10 Normal 0.0-0.8 Eos # 0.0 10 Normal 0.0-0.5 Baso # 0.0 10 Normal 0.0-0.2 CBC With Differential 04/12/2021 [place] [address] [phone] White Blood Count 4.6 10 Normal 4.0-10.0 [...] 36.0-66.0 Lymph % 6.6 % Low 24.0-44.0 [place] % 9.4 % High 2.0-8.0 Eos % 0.9 % Normal 0.0-3.0 Baso % 0.2 % Normal 0.0-1.0 Immature Granulocyte % 0.4 % Normal 0-3.0 Nucleated Red Blood Cell % 0.0 % Normal 0-0 Neutrophils # 3.8 10 Normal 1.5-8.5 Lymph # 0.3 10 Low 1.5-5.0 [place] # 0.4 10 Normal 0.0-0.8 Eos # 0.0 10 Normal 0.0-0.5 Baso # 0.0 10 Normal 0.0-0.2 Coronavirus 2019 Nasopharygeal 04/10/[address] [address] [phone] Coronavirus 2019 Nasopharygeal ASSAY INFORMATIO <SEE N OTE> 5 Comprehensive Metabolic Profil 04/07/2021 Patient [place], [place] [id number] [phone] Glucose, Fasting 184 mg/dL High 70-100 Blood [...] Binding Capacit 04/07/2021 Patient [facility] ce [facility] [place], [place] [id number] [phone] Iron (Fe) 48 g/dL Low 50-170 Total Iron Binding Capacity 353 g/dL Normal 250-450 Percent Saturation 13.6 % Normal 13.2-45.0 Laboratory test finding 04/07/2021 Patient Service [facility] [place], [place] [address]2458 [phone] Carcinoembryonic Antigen < 0.5 NG/ML Normal <2.5 7 Ferritin 66 NG/ML Normal 8-252 CBC With Differential 04/07/2021 Patient Service Ce [place], [place] [address]93 [phone] White Blood Count 3.4 10 Low 4.0-10.0 [...] 36.0-66.0 Lymph % 8.5 % Low 24.0-44.0 [place] % 10.9 % High 2.0-8.0 Eos % 0.9 % Normal 0.0-3.0 Baso % 0.6 % Normal 0.0-1.0 Immature Granulocyte % 0.6 % Normal 0-3.0 Nucleated Red Blood Cell % 0.0 % Normal 0-0 Neutrophils # 2.7 10 Normal 1.5-8.5 Lymph # 0.3 10 Low 1.5-5.0 [place] # 0.4 10 Normal 0.0-0.8 Eos # 0.0 10 Normal 0.0-0.5 Baso # 0.0 10 Normal 0.0-0.2 Laboratory test finding 04/07/2021 [place] [address] [phone] Packed Cells TRANSFUSED PRODU <SEE NOTE> 8 Type & Screen -Incl Blood Type,Tye,AB SC 04/07/2021 [place] [address] [phone] Blood Type O POSITIVE Normal AB Screen (Indirect Farooq)Vis NEGATIVE Normal Comprehensive Metabolic Profil 03/24/2021 [facility] [place] [address] [phone] Glucose, Fasting 96 mg/dL Normal 70-100 Blood [...] 1.2-2.2 CBC With Differential 03/24/2021 [place] [address] [phone] White Blood Count 4.6 10 Normal 4.0-10.0 [...] 36.0-66.0 Lymph % 6.2 % Low 24.0-44.0 [place] % 11.4 % High 2.0-8.0 Eos % 0.4 % Normal 0.0-3.0 Baso % 0.4 % Normal 0.0-1.0 Immature Granulocyte % 0.4 % Normal 0-3.0 Nucleated Red Blood Cell % 0.7 % High 0-0 Neutrophils # 3.7 10 Normal 1.5-8.5 Lymph # 0.3 10 Low 1.5-5.0 [place] # 0.5 10 Normal 0.0-0.8 Eos # 0.0 10 Normal 0.0-0.5 Baso # 0.0 10 Normal 0.0-0.2 Influenza A/B RSV Covid Amp 03/24/2021 [place] [address] [phone] Influenza A Amplification NEGATIVE Normal Negati ve 10 Influenza B Amplification NEGATIVE Normal Negative 11 RSV Amplification NEGATIVE Normal Negative 12 Sars Covid-19 Amplification NEGATIVE Normal Negative 13 Laboratory test finding 03/24/2021 [place] [address] [phone] Packed Cells TRANSFUSED PRODU <SEE NOTE> 14 Metabolic Panel (14), Comprehensive 03/17/2021 [facility] [address] [place] [address] [phone] Calcium 9.5 mg/dL 8.7-10.3 Glucose 81 mg/dL [...] IU/L 0-32 Lipid Panel 03/17/2021 [facility] [address] [place] [address] [phone] Cholesterol, Total 123 mg/dL 100-199 Triglycerides 141 mg/dL 0-149 HDL Cholesterol 37 mg/dL Low >39 VLDL Cholesterol Mark 25 mg/dL 5-40 LDL Chol Calc (Nih) 61 mg/dL 0-99 Comment: TNP Hemoglobin A1c 03/17/2021 [facility] [address] [place] [address] [phone] Hemoglobin A1c 4.8 % 4.8-5.6 17 Albumin/Creatinine Ratio, Random Urine 03/17/2021 [facility] [address] [place] [address] [phone] Creatinine, Urine 120.2 mg/dL Not Estab. Albumin, Urine 20.1 ug/mL Not Estab. Alb/Creat Ratio 17 mg/gcreat 0-29 18 Laboratory test finding 03/14/2021 Patient Service Center [facility] [address] [phone] Packed Cells TRANSFUSED PRODU <SEE NOTE> 19 Type & Screen -Incl Blood Type,Tye,AB SC 03/14/2021 [place] [address] [phone] Blood Type O POSITIVE Normal AB Screen (Indirect Farooq)Vis NEGATIVE Normal CBC With Differential 03/14/2021 [place] [address] [phone] White Blood Count 4.0 10 Normal 4.0-10.0 [...] 36.0-66.0 Lymph % 6.8 % Low 24.0-44.0 [place] % 9.3 % High 2.0-8.0 Eos % 1.0 % Normal 0.0-3.0 Baso % 0.8 % Normal 0.0-1.0 Immature Granulocyte % 0.3 % Normal 0-3.0 Nucleated Red Blood Cell % 0.0 % Normal 0-0 Neutrophils # 3.3 10 Normal 1.5-8.5 Lymph # 0.3 10 Low 1.5-5.0 [place] # 0.4 10 Normal 0.0-0.8 Eos # 0.0 10 Normal 0.0-0.5 Baso # 0.0 10 Normal 0.0-0.2 CBC With Differential 03/10/2021 [place] [address] [phone] White Blood Count 3.4 10 Low 4.0-10.0 [...] 36.0-66.0 Lymph % 7.6 % Low 24.0-44.0 [place] % 12.9 % High 2.0-8.0 Eos % 1.2 % Normal 0.0-3.0 Baso % 0.6 % Normal 0.0-1.0 Immature Granulocyte % 0.3 % Normal 0-3.0 Nucleated Red Blood Cell % 0.0 % Normal 0-0 Neutrophils # 2.6 10 Normal 1.5-8.5 Lymph # 0.3 10 Low 1.5-5.0 [place] # 0.4 10 Normal 0.0-0.8 Eos # 0.0 10 Normal 0.0-0.5 Baso # 0.0 10 Normal 0.0-0.2 Comprehensive Metabolic Profil 03/10/2021 Patient S [place] [id number] [phone] Glucose, Fasting 166 mg/dL High 70-100 Blood [...] Binding Capacit 03/10/2021 [place] [address] [phone] Iron (Fe) 72 g/dL Normal 50-170 Total Iron Binding Capacity 352 g/dL Normal 250-450 Percent Saturation 20.5 % Normal 13.2-45.0 Laboratory test finding 03/10/2021 Patient Service Center [place] 0645135 [phone] Carcinoembryonic Antigen < 0.5 NG/ML Normal <2.5 21 Ferritin 492 NG/ML High 8-252 Laboratory test finding 02/28/2021 Patient [facility] [place] [address]165 [phone] Packed Cells TRANSFUSED PRODU <SEE NOTE> 22 Type & Screen -Incl Blood Type,Tye,AB SC 02/28/2021 [place] [address] [phone] Blood Type O POSITIVE Normal AB Screen (Indirect Farooq)Vis NEGATIVE Normal CBC With Differential 02/27/2021 [place] [address] [phone] White Blood Count 6.0 10 Normal 4.0-10.0 [...] 36.0-66.0 Lymph % 4.7 % Low 24.0-44.0 [place] % 11.6 % High 2.0-8.0 Eos % 0.5 % Normal 0.0-3.0 Baso % 0.3 % Normal 0.0-1.0 Immature Granulocyte % 0.8 % Normal 0-3.0 Nucleated Red Blood Cell % 0.3 % High 0-0 Neutrophils # 4.9 10 Normal 1.5-8.5 Lymph # 0.3 10 Low 1.5-5.0 [place] # 0.7 10 Normal 0.0-0.8 Eos # 0.0 10 Normal 0.0-0.5 Baso # 0.0 10 Normal 0.0-0.2 Laboratory test finding 02/27/2021 [place] [address] [phone] Ferritin 1039 NG/ML High 8-252 Creatinine With GFR 02/27/2021 Patient Service [place] [address] [phone] Creatinine For GFR 0.76 mg/dL Normal 0.55-1.30 Glomerular Filtration Rate > 60.0 Normal >32 2 3 Laboratory test finding 02/27/2021 [place] [address] [phone] Blood Urea Nitrogen 26 mg/dL High 7-18 Total Iron Binding Capacit 02/27/2021 [place] [address] [phone] Iron (Fe) 79 g/dL Normal 50-170 Total Iron Binding Capacity 384 g/dL Normal 250-450 Percent Saturation 20.6 % Normal 13.2-45.0 Laboratory test finding 02/10/2021 [place] [address] [phone] Packed Cells TRANSFUSED PRODU <SEE NOTE> 24 Type & Screen -Incl Blood Type,Tye,AB SC 02/10/2021 [place] [address] [phone] Blood Type O POSITIVE Normal AB Screen (Indirect Farooq)Vis NEGATIVE Normal CBC With Differential 02/09/2021 [place] [address] [phone] White Blood Count 3.9 10 Low 4.0-10.0 [...] 36.0-66.0 Lymph % 7.2 % Low 24.0-44.0 [place] % 10.0 % High 2.0-8.0 Eos % 1.0 % Normal 0.0-3.0 Baso % 0.5 % Normal 0.0-1.0 Immature Granulocyte % 0.5 % Normal 0-3.0 Nucleated Red Blood Cell % 0.0 % Normal 0-0 Neutrophils # 3.1 10 Normal 1.5-8.5 Lymph # 0.3 10 Low 1.5-5.0 [place] # 0.4 10 Normal 0.0-0.8 Eos # 0.0 10 Normal 0.0-0.5 Baso # 0.0 10 Normal 0.0-0.2 CBC With Differential 01/27/2021 Patient Service [place] [address]8815 [phone] White Blood Count 4.2 10 Normal 4.0-10.0 [...] 36.0-66.0 Lymph % 13.6 % Low 24.0-44.0 [place] % 14.6 % High 2.0-8.0 Eos % 1.4 % Normal 0.0-3.0 Baso % 0.5 % Normal 0.0-1.0 Immature Granulocyte % 0.5 % Normal 0-3.0 Nucleated Red Blood Cell % 0.0 % Normal 0-0 Neutrophils # 2.9 10 Normal 1.5-8.5 Lymph # 0.6 10 Low 1.5-5.0 [place] # 0.6 10 Normal 0.0-0.8 Eos # 0.1 10 Normal 0.0-0.5 Baso # 0.0 10 Normal 0.0-0.2 Comprehensive Metabolic Profil 01/27/2021 [place] [address] [phone] Glucose, Fasting 59 mg/dL Low 70-100 Blood [...] Iron Binding Capacit 01/27/2021 [place] [address] [phone] Iron (Fe) 59 g/dL Normal 50-170 Total Iron Binding Capacity 397 g/dL Normal 250-450 Percent Saturation 14.9 % Normal 13.2-45.0 Laboratory test finding 01/27/2021 [place] [address] [phone] Ferritin 39 NG/ML Normal 8-252 Carcinoembryonic Antigen 0.5 NG/ML Normal <2.5 26 Creatinine With GFR 01/20/2021 [place] [address] [phone] Creatinine For GFR 0.69 mg/dL Normal 0.55-1.30 Glomerular Filtration Rate > 60.0 Normal >32 2 7 Type & Screen -Incl Blood Type,Tye,AB NE 01/20/2021 [place] [address] [phone] Blood Type O POSITIVE Normal AB Screen (Indirect Farooq)Vis NEGATIVE Normal Laboratory test finding 01/20/2021 [place] [address] [phone] Blood Urea Nitrogen 21 mg/dL High 7-18 Complete Blood Count 01/20/2021 Patient Service [place] 9983063 [phone] White Blood Count 3.3 10 Low 4.0-10.0 [...] 2019 Nasopharygeal 01/16/2021 Patient S ervice Center [place] 0645150 [phone] Coronavirus 2019 Nasopharygeal ASSAY INFORMATIO <SEE N OTE> 28 Type & Screen -Incl Blood Type,Tye,AB NE 01/03/2021 Patient Service [place] 6385106 [phone] Blood Type O POSITIVE Normal AB Screen (Indirect Farooq)Vis NEGATIVE Normal Laboratory test finding 01/03/2021 Patient Service [place] 6385178 [phone] Packed Cells TRANSFUSED PRODU <SEE NOTE> 29 CBC With Differential 01/02/2021 Patient Service [place], [place] 4880339 [phone] White Blood Count 4.3 10 Normal 4.0-10.0 [...] 36.0-66.0 Lymph % 10.7 % Low 24.0-44.0 [place] % 13.1 % High 2.0-8.0 Eos % 0.7 % Normal 0.0-3.0 Baso % 0.5 % Normal 0.0-1.0 Immature Granulocyte % 0.5 % Normal 0-3.0 Nucleated Red Blood Cell % 0.0 % Normal 0-0 Neutrophils # 3.2 10 Normal 1.5-8.5 Lymph # 0.5 10 Low 1.5-5.0 [place] # 0.6 10 Normal 0.0-0.8 Eos # 0.0 10 Normal 0.0-0.5 Baso # 0.0 10 Normal 0.0-0.2 Comprehensive Metabolic Profil 01/02/2021 Patient [place], [place] [address]20827 [phone] Glucose, Fasting 155 mg/dL High 70-100 Blood [...] Binding Capacit 01/02/2021 [place] [address] [phone] Iron (Fe) 55 g/dL Normal 50-170 Total Iron Binding Capacity 398 g/dL Normal 250-450 Percent Saturation 13.8 % Normal 13.2-45.0 Laboratory test finding 01/02/2021 [place] [address] [phone] Thyroid Stimulating Hormone 1.660 uIU/ML Normal 0. 358-3.740 Free T4 0.87 ng/dL Normal 0.76-1.46 Ferritin 58 NG/ML Normal 8-252 Laboratory test finding 12/23/2020 [place] [address] [phone] iSTAT Troponin 0.01 NG/ML Normal 0.00-0.08 Laboratory test finding 12/23/2020 [place] [address] [phone] Lipase 73 U/L Normal 73-393 Lactic Acid Sepsis Protocol 0.8 mmol/L Normal 0.4-2.0 31 Liver Profile 12/23/2020 [place] [address] [phone] Ast/Sgot 13 U/L Normal 7-37 Alt/SGPT 14 U/L Normal 12-78 Alkaline Phosphatase 95 U/L Normal 45-117 Bilirubin,Total 0.9 mg/dL Normal 0.2-1.0 Bilirubin,Direct 0.3 mg/dL High 0.0-0.2 Total Protein 6.5 GM/DL Normal 6.4-8.2 Albumin 3.4 GM/DL Normal 3.2-5.2 Albumin/Globulin Ratio 1.1 Low 1.2-2.2 CBC With Differential 12/23/2020 Patient Service Ce nter [facility] [place] [address] [phone] White Blood Count 4.5 10 Normal 4.0-10.0 [...] 36.0-66.0 Lymph % 9.7 % Low 24.0-44.0 [place] % 11.9 % High 2.0-8.0 Eos % 0.9 % Normal 0.0-3.0 Baso % 0.4 % Normal 0.0-1.0 Immature Granulocyte % 0.4 % Normal 0-3.0 Nucleated Red Blood Cell % 0.0 % Normal 0-0 Neutrophils # 3.5 10 Normal 1.5-8.5 Lymph # 0.4 10 Low 1.5-5.0 [place] # 0.5 10 Normal 0.0-0.8 Eos # 0.0 10 Normal 0.0-0.5 Baso # 0.0 10 Normal 0.0-0.2 Istat Chem8+ Panel 12/23/2020 Patient Service Cent er [facility] [place] [address] [phone] iSTAT HCT 33.0 % Low 38.0-51.0 iSTAT Glucose 94 mg/dL Normal 70-105 iSTAT Sodium 138 mEq/L Normal 136-145 iSTAT Potassium 4.2 mEq/L Normal 3.5-5.1 iSTAT CA++ 5.0 mg/dL Normal 4.5-5.3 iSTAT Chloride 102 mEq/L Normal 98-109 iSTAT Co2 27.0 MM/L Normal 23.0-27.0 iSTAT BUN 20 mg/dL Normal 8-26 iSTAT Creatinine 0.7 mg/dL Normal 0.6-1.3 PT & Aptt 12/23/2020 [place] [address] [phone] Prothrombin Time 13.3 seconds Normal 12.5-14.3 Inr 0.99 Normal 32 Partial Thromboplastin Time 29.5 seconds Normal 24.2-38.5 CBC With Differential 12/19/2020 [place] [address] [phone] White Blood Count 3.8 10 Low 4.0-10.0 [...] 36.0-66.0 Lymph % 11.7 % Low 24.0-44.0 [place] % 11.9 % High 2.0-8.0 Eos % 1.1 % Normal 0.0-3.0 Baso % 0.3 % Normal 0.0-1.0 Immature Granulocyte % 0.5 % Normal 0-3.0 Nucleated Red Blood Cell % 0.0 % Normal 0-0 Neutrophils # 2.8 10 Normal 1.5-8.5 Lymph # 0.4 10 Low 1.5-5.0 [place] # 0.5 10 Normal 0.0-0.8 Eos # 0.0 10 Normal 0.0-0.5 Baso # 0.0 10 Normal 0.0-0.2 CBC With Differential 12/05/2020 [place] [address] [phone] White Blood Count 3.4 10 Low 4.0-10.0 [...] 36.0-66.0 Lymph % 12.8 % Low 24.0-44.0 [place] % 13.7 % High 2.0-8.0 Eos % 1.2 % Normal 0.0-3.0 Baso % 0.6 % Normal 0.0-1.0 Immature Granulocyte % 0.3 % Normal 0-3.0 Nucleated Red Blood Cell % 0.0 % Normal 0-0 Neutrophils # 2.4 10 Normal 1.5-8.5 Lymph # 0.4 10 Low 1.5-5.0 [place] # 0.5 10 Normal 0.0-0.8 Eos # 0.0 10 Normal 0.0-0.5 Baso # 0.0 10 Normal 0.0-0.2 PT & Aptt 12/05/2020 [place] [address] [phone] Prothrombin Time 13.3 seconds Normal 12.5-14.3 Inr 0.99 Normal 33 Partial Thromboplastin Time 29.4 seconds Normal 24.2-38.5 Total Iron Binding Capacit 12/05/2020 [place] [address] [phone] Iron (Fe) 94 g/dL Normal 50-170 Total Iron Binding Capacity 350 g/dL Normal 250-450 Percent Saturation 26.9 % Normal 13.2-45.0 Laboratory test finding 12/05/2020 [place] [address] [phone] Ferritin 108 NG/ML Normal 8-252 Complete Blood Count 11/25/[address] [place] [address] [phone] White Blood Count 4.4 10 Normal 4.0-10.0 [...] -Incl Blood Type,Tye,AB SC 11/25/2020 [place] [address] [phone] Blood Type O POSITIVE Normal AB Screen (Indirect Farooq)Vis NEGATIVE Normal Laboratory test finding 11/25/2020 Patient Service [place] 6385172 [phone] NT-Pro BNP 1795 pg/mL High <450 Cardiac Marker Panel 11/25/2020 [place] [address] [phone] CPK Creatine Phosphokinase 60 U/L Normal 26-19 2 CK-MB Value Mass 1.3 NG/ML Normal <3.6 MB/CK Relative Index 2.17 Normal < Or =4 34 Troponin I < 0.02 NG/ML Normal < 0.10 35 Comprehensive Metabolic Profil 11/25/2020 [place] [address] [phone] Glucose, Fasting 110 mg/dL High 70-100 Blood [...] & Aptt 11/25/2020 Patient Service Cent er [facility] [place] [address] [phone] Prothrombin Time 16.4 seconds High 12.5-14.3 Inr 1.29 Normal 37 Partial Thromboplastin Time 33.4 seconds Normal 24.2-38.5 CBC With Differential 11/07/2020 Patient Service Ce nter [facility] [place] [address] [phone] White Blood Count 3.2 10 Low 4.0-10.0 [...] 36.0-66.0 Lymph % 10.5 % Low 24.0-44.0 [place] % 13.3 % High 2.0-8.0 Eos % 0.9 % Normal 0.0-3.0 Baso % 0.6 % Normal 0.0-1.0 Immature Granulocyte % 0.3 % Normal 0-3.0 Nucleated Red Blood Cell % 0.0 % Normal 0-0 Neutrophils # 2.4 10 Normal 1.5-8.5 Lymph # 0.3 10 Low 1.5-5.0 [place] # 0.4 10 Normal 0.0-0.8 Eos # 0.0 10 Normal 0.0-0.5 Baso # 0.0 10 Normal 0.0-0.2 Comprehensive Metabolic Profil 11/07/2020 [place] [address] [phone] Glucose, Fasting 142 mg/dL High 70-100 Blood [...] Iron Binding Capacit 11/07/2020 [place] [address] [phone] Iron (Fe) 43 g/dL Low 50-170 Total Iron Binding Capacity 302 g/dL Normal 250-450 Percent Saturation 14.2 % Normal 13.2-45.0 Laboratory test finding 11/07/2020 [place] [address] [phone] Ferritin 207 NG/ML Normal 8-252 1 TRANSFUSED [...] passenger travel. Testing and International Air Travel, cdc.gov/coronavirus/2019-ncov/travelers/ibevziq-owh-zrzfne.html 09/01/2020 NOTE: The COVID-19 assay is under Emergency Use Authorization (EUA) by the U.S. Food and Drug Administration. [employer] [facility] [employer] are designated as high complexity laboratories by [...] Little GFR Left ESRD GFR <15 on FLOOR PERSON 7 THE CEA ASSAY IS PERFORMED O N THE [employer] BY CHEMILUMINESCENCE AND SHOULD NOT BE COMPARED [...] Little GFR Left ESRD GFR <15 on FLOOR PERSON 10 Negative results do not prec lude [...] pathogens. DISCLAIMER: Testing was performed using the [employer] SARS-CoV-2 test. This test was developed and its performance characteristics determined by [employer]. This test has not been FDA cleared [...] Little GFR Left ESRD GFR <15 on FLOOR PERSON 21 THE CEA ASSAY IS PERFORMED O [...] Little GFR Left ESRD GFR <15 on FLOOR PERSON 24 TRANSFUSED PRODUCT: PACKED C ELLS COUNT: 2 25 Units are mL/min/1.73 m2 Chronic Kidney Disease Staging per NKF: Stage I & II GFR >=60 Normal to Mildly Decreased Stage III GFR 30-59 Moderately Decreased Stage IV GFR 15-29 Severely Decreased Stage V GFR <15 Very Little GFR Left ESRD GFR <15 on FLOOR PERSON 26 THE CEA ASSAY IS PERFORMED O [...] Little GFR Left ESRD GFR <15 on FLOOR PERSON 28 ASSAY INFORMATION: Real Time RT-PCR NOTE: The COVID-19 assay has been cleared by the U.S. Food and Drug Administration under the Emergency Use Authorization (EUA). [employer] [facility] [employer] are designated as high complexity laboratories by [...] Little GFR Left ESRD GFR <15 on FLOOR PERSON 31 Y/N query for Sepsis Lactate Rule: [...] 35 Troponin I Reference Interva l for [employer] LOCI: 99th Percentile= 0.00-0.045 ng/ml Risk Stratification: [...] Little GFR Left ESRD GFR <15 on FLOOR PERSON 37 THERAPUTIC HUMAN INR VALUES INDICATIONS NORMAL [...] Little GFR Left ESRD GFR <15 on FLOOR PERSON Procedures Date Code Description Status 03/28/2021 [address] W/I 7 Days Of DC, Comm W/I 2 Dys Completed 03/23/2021 [id number] Office/Outpatient Established Mo d MDM 30-39 Min Completed 03/23/2021 [id number] Diabetic Foot Exam Completed 01/25/2021 [id number] [place] W/I 7 Days Of DC, Comm W/I 2 Dys Completed 12/27/2020 [id number] Office/Outpatient Established Mo d MDM 30-39 Min Completed 12/19/2020 [id number] Office/Outpatient Established Mo d MDM 30-39 Min Completed 12/02/2020 [id number] [place] [facility] W/I 7 Days Of DC, [...] Office Visit 12/19/2020 2:15p Main Office PleskachStevey, [employer] E11.6 9 Type 2 diabetes mellitus with other specified complication E78.2 Mixed hyperlipidemia I10 Essential (primary) hyperten yara 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 C18.9 Malignant neoplasm of colon, unspecified I48.91 Unspecified atrial fibrillat ion Office Visit 12/02/2020 10:30a Main Office Pleskach Nadiya, [employer] D64.9 Anemia, unspecified E11.69 Type 2 diabetes mellitus wit h other specified complication E78.2 Mixed hyperlipidemia I10 Essential (primary) hyperten yara 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 C18.9 Malignant neoplasm of colon, unspecified I48.91 Unspecified atrial fibrillat ion Assessments Date Code Description Provider 03/28/2021 D64.9 Anemia, unspecified Pleskach, Mo lly, [facility] 03/28/2021 K29.61 Other gastritis with bleeding Pl Steve hogany, [employer] 03/23/2021 E11.69 Type 2 diabetes mellitus with ot her specified complication Pleskach, Nadiya, [employer] 03/23/2021 C18.9 Malignant neoplasm of colon, uns pecified Plegudeliaach Nadiya, [employer] 03/23/2021 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 Plealexy Nadiya , [employer] 03/23/2021 E78.2 Mixed hyperlipidemia Pleskach, M jarocho, [employer] 03/23/2021 I10 Essential (primary) hypertension Pleskach Nadiya, [employer] 03/23/2021 I48.91 Unspecified atrial fibrillation Pleskach Nadiya, [employer] 03/23/2021 D64.9 Anemia, unspecified Pleskach, Mo lly, [employer] 01/25/2021 D64.9 Anemia, unspecified Pleskach, Mo lly, [employer] 01/25/2021 K29.61 Other gastritis with bleeding Pl eskach Nadiya, [employer] 12/27/2020 E11.69 Type 2 diabetes mellitus with ot her specified complication Anitha Gamez M.D. 12/27/2020 C18.9 Malignant neoplasm of colon, uns pecified Anitha Gamez M.D. 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 12/27/2020 D64.9 Anemia, unspecified Angela Gamez M.D. 12/19/2020 E11.69 Type 2 diabetes mellitus with ot her specified complication Pleskach, Nadiya, [employer] 12/19/2020 E78.2 Mixed hyperlipidemia Pleskach, M jarocho, [employer] 12/19/2020 I10 Essential (primary) hypertension Pleskach, Nadiya, [employer] 12/19/2020 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 Pleskach, Nadiya , [employer] 12/19/2020 C18.9 Malignant neoplasm of colon, uns pecified Pleskach, Nadiya, [employer] 12/19/2020 I48.91 Unspecified atrial fibrillation Pleskach, Nadiya, [employer] 12/02/2020 D64.9 Anemia, unspecified Pleskach, Mo lly, [employer] 12/02/2020 E11.69 Type 2 diabetes mellitus with ot her specified complication Pleskach, Nadiya, [employer] 12/02/2020 E78.2 Mixed hyperlipidemia Pleskach, M jarocho, [employer] 12/02/2020 I10 Essential (primary) hypertension Pleskach, Nadiya, [employer] 12/02/2020 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 Pleskach, Nadiya , [employer] 12/02/2020 C18.9 Malignant neoplasm of colon, uns pecified Pleskach, Nadiya, [employer] 12/02/2020 I48.91 Unspecified atrial fibrillation Pleskach, Nadiya, [employer] Plan of Treatment Future Appointment(s):* 06/22/2021 3:30 pm - Plegudeliaach, Nadiya, [employer] at Main Office 03/28/2021 - Pleskach, Nadiya, [employer]* D64.9 Anemia, unspecified* Comments:* following with hematology, [...]
--- OUTSIDE RECORDS SUMMARY | 2021-05-23 16:56 | CCD | Continuity of Care Document ---
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 AUTM [phone] [facility] AUTM [phone] Jeff Cramer AUTM [phone] Problems Active Problems Provider Date Type 2 [...] 236units C18.9 Nadiya Bryan FNP 06/16/2020 Z93.2 [place] Remover Wipes Misc use 3-4 wipes every 4 days and as needed when changing ostomy 2Box Z93.2 Nadiya Bryan FNP 06/16/2020 C18.9 Efren Adapt Ceraing change every 4-5 days and as needed ref #[id number] 20units Nadiya Bryan FNP 05/05/2020 [place] 2 Piece Ostomy Skin Barrier ref # [id number] márquez ge every 4-5 days and as needed 20units C18.9 Nadiya Bryan FNP 04/14/2020 Z93.2 [place] 2 Piece Drainable Ostomy Pouch ref # [id number] c hange every 4-5 days and as [...] CPT Code Status Date Vaccine Lot # [id number] Refused 04/17/2016 Pneumococcal Vaccine 40019 Refused 04/17/2016 Prevnar 13 [id number] Refused 04/17/2016 Influenza Vaccination Vital Signs Date Vital Result Comment 03/28/2021 11:51am BP Systolic 113 mmHg BP Diastolic 83 mmHg Heart Rate 127 /min Body Temperature 98.0 F Respiratory Rate 18 /min Height 61.5 inches 5'1.50" Weight 114.38 lb O2 % BldC Oximetry 100 % [place] Body Weight 105 lb BMI (Body Mass Index) 21.3 kg/m2 03/23/2021 3:47pm BP Systolic 110 mmHg BP Diastolic 62 mmHg Heart Rate 64 /min Body Temperature 98.7 F Respiratory Rate 16 /min Height 61.5 inches 5'1.50" Weight 116.38 lb O2 % BldC Oximetry 99 % [place] Body Weight 105 lb BMI (Body Mass Index) 21.6 kg/m2 Results Test Acquired Date Facility Test Result H/L Range Note CBC With Differential 05/08/2021 Patient Service [place] [id number] [phone] White Blood Count 4.8 10 Normal 4.0-10.0 [...] 36.0-66.0 Lymph % 5.2 % Low 24.0-44.0 [place] % 11.2 % High 2.0-8.0 Eos % 1.4 % Normal 0.0-3.0 Baso % 0.4 % Normal 0.0-1.0 Immature Granulocyte % 0.4 % Normal 0-3.0 Nucleated Red Blood Cell % 0.0 % Normal 0-0 Neutrophils # 3.9 10 Normal 1.5-8.5 Lymph # 0.3 10 Low 1.5-5.0 [place] # 0.5 10 Normal 0.0-0.8 Eos # 0.1 10 Normal 0.0-0.5 Baso # 0.0 10 Normal 0.0-0.2 Retic (Reticulocyte Count) 05/05/2021 [place] [address] [phone] Reticulocyte % 5.9 % High 0.5-1.5 Reticulocyte # 119.8 10 High 17-77 Retic Hemoglobin Equivalent 30.7 pg Normal 24-36 Prothrombin Time/Inr 05/05/[address] [place] [address] [phone] Prothrombin Time 14.0 seconds Normal 12.7-14.5 Inr 1.04 Normal 1 Laboratory test finding 05/05/2021 [place] [address] [phone] Partial Thromboplastin Time 24.9 seconds Low 25 .9-37.0 Platelet Function Analysis 05/05/2021 [place] [address] [phone] Collagen Epinephrine TNP seconds Normal 74-162 2 Laboratory test finding 05/05/2021 [place] [address] [phone] LDH Lactate Dehydrogenase 128 U/L Normal 84-246 CBC With Differential 05/05/2021 [place] [address] [phone] White Blood Count 5.1 10 Normal 4.0-10.0 [...] 36.0-66.0 Lymph % 6.3 % Low 24.0-44.0 [place] % 11.5 % High 2.0-8.0 Eos % 0.8 % Normal 0.0-3.0 Baso % 0.4 % Normal 0.0-1.0 Immature Granulocyte % 0.6 % Normal 0-3.0 Nucleated Red Blood Cell % 0.0 % Normal 0-0 Neutrophils # 4.1 10 Normal 1.5-8.5 Lymph # 0.3 10 Low 1.5-5.0 [place] # 0.6 10 Normal 0.0-0.8 Eos # 0.0 10 Normal 0.0-0.5 Baso # 0.0 10 Normal 0.0-0.2 Type & Screen -Incl Blood Type,Tye,AB SC 05/05/2021 [place] [address] [phone] Blood Type O POSITIVE Normal AB Screen (Indirect Farooq)Vis NEGATIVE Normal Laboratory test finding 05/05/2021 [place] [address] [phone] Packed Cells TRANSFUSED PRODU <SEE NOTE> 3 CBC With Differential 04/27/2021 Patient Service [facility] [place] [place] [id number] [phone] White Blood Count 4.2 10 Normal 4.0-10.0 [...] 36.0-66.0 Lymph % 8.1 % Low 24.0-44.0 [place] % 12.8 % High 2.0-8.0 Eos % 1.0 % Normal 0.0-3.0 Baso % 0.2 % Normal 0.0-1.0 Immature Granulocyte % 0.5 % Normal 0-3.0 Nucleated Red Blood Cell % 0.0 % Normal 0-0 Neutrophils # 3.3 10 Normal 1.5-8.5 Lymph # 0.3 10 Low 1.5-5.0 [place] # 0.5 10 Normal 0.0-0.8 Eos # 0.0 10 Normal 0.0-0.5 Baso # 0.0 10 Normal 0.0-0.2 CBC With Differential 04/20/2021 [place] [address] [phone] White Blood Count 3.9 10 Low 4.0-10.0 [...] 36.0-66.0 Lymph % 8.8 % Low 24.0-44.0 [place] % 11.9 % High 2.0-8.0 Eos % 1.0 % Normal 0.0-3.0 Baso % 0.5 % Normal 0.0-1.0 Immature Granulocyte % 0.8 % Normal 0-3.0 Nucleated Red Blood Cell % 0.0 % Normal 0-0 Neutrophils # 3.0 10 Normal 1.5-8.5 Lymph # 0.3 10 Low 1.5-5.0 [place] # 0.5 10 Normal 0.0-0.8 Eos # 0.0 10 Normal 0.0-0.5 Baso # 0.0 10 Normal 0.0-0.2 CBC With Differential 04/12/2021 [place] [address] [phone] White Blood Count 4.6 10 Normal 4.0-10.0 [...] 36.0-66.0 Lymph % 6.6 % Low 24.0-44.0 [place] % 9.4 % High 2.0-8.0 Eos % 0.9 % Normal 0.0-3.0 Baso % 0.2 % Normal 0.0-1.0 Immature Granulocyte % 0.4 % Normal 0-3.0 Nucleated Red Blood Cell % 0.0 % Normal 0-0 Neutrophils # 3.8 10 Normal 1.5-8.5 Lymph # 0.3 10 Low 1.5-5.0 [place] # 0.4 10 Normal 0.0-0.8 Eos # 0.0 10 Normal 0.0-0.5 Baso # 0.0 10 Normal 0.0-0.2 Coronavirus 2019 Nasopharygeal 04/10/2021 [place], [place] [id number] [phone] Coronavirus 2019 Nasopharygeal ASSAY INFORMATIO <SEE N OTE> 4 Comprehensive Metabolic Profil 04/07/2021 [place] [address] [phone] Glucose, Fasting 184 mg/dL High 70-100 Blood Urea Nitrogen 30 mg/dL High 7-18 Creatinine For GFR 0.81 mg/dL Normal 0.55-1.30 Glomerular Filtration Rate > 60.0 Normal >32 5 Sodium Level 141 mEq/L Normal 136-145 [...] Binding Capacit 04/07/2021 [place] [address] [phone] Iron (Fe) 48 g/dL Low 50-170 Total Iron Binding Capacity 353 g/dL Normal 250-450 Percent Saturation 13.6 % Normal 13.2-45.0 Laboratory test finding 04/07/2021 Patient Service Center [place], [place] [id number] [phone] Carcinoembryonic Antigen < 0.5 NG/ML Normal <2.5 6 Ferritin 66 NG/ML Normal 8-252 CBC With Differential 04/07/2021 Patient Service Ce nter [place], [place] [address] [phone] White Blood Count 3.4 10 Low 4.0-10.0 [...] 36.0-66.0 Lymph % 8.5 % Low 24.0-44.0 [place] % 10.9 % High 2.0-8.0 Eos % 0.9 % Normal 0.0-3.0 Baso % 0.6 % Normal 0.0-1.0 Immature Granulocyte % 0.6 % Normal 0-3.0 Nucleated Red Blood Cell % 0.0 % Normal 0-0 Neutrophils # 2.7 10 Normal 1.5-8.5 Lymph # 0.3 10 Low 1.5-5.0 [place] # 0.4 10 Normal 0.0-0.8 Eos # 0.0 10 Normal 0.0-0.5 Baso # 0.0 10 Normal 0.0-0.2 Laboratory test finding 04/07/2021 [place] [address] [phone] Packed Cells TRANSFUSED PRODU <SEE NOTE> 7 Type & Screen -Incl Blood Type,Tye,AB SC 04/07/2021 [place] [address] [phone] Blood Type O POSITIVE Normal AB Screen (Indirect [place])Vis NEGATIVE Normal Comprehensive Metabolic Profil 03/24/2021 [place] [address] [phone] Glucose, Fasting 96 mg/dL Normal 70-100 Blood [...] 1.2-2.2 CBC With Differential 03/24/2021 [place] [address] [phone] White Blood Count 4.6 10 Normal 4.0-10.0 [...] 36.0-66.0 Lymph % 6.2 % Low 24.0-44.0 [place] % 11.4 % High 2.0-8.0 Eos % 0.4 % Normal 0.0-3.0 Baso % 0.4 % Normal 0.0-1.0 Immature Granulocyte % 0.4 % Normal 0-3.0 Nucleated Red Blood Cell % 0.7 % High 0-0 Neutrophils # 3.7 10 Normal 1.5-8.5 Lymph # 0.3 10 Low 1.5-5.0 [place] # 0.5 10 Normal 0.0-0.8 Eos # 0.0 10 Normal 0.0-0.5 Baso # 0.0 10 Normal 0.0-0.2 Influenza A/B RSV Covid Amp 03/24/2021 [place] [address] [phone] Influenza A Amplification NEGATIVE Normal Negati ve 9 Influenza B Amplification NEGATIVE Normal Negative 10 RSV Amplification NEGATIVE Normal Negative 11 Sars Covid-19 Amplification NEGATIVE Normal Negative 12 Laboratory test finding 03/24/2021 [place] [address] [phone] Packed Cells TRANSFUSED PRODU <SEE NOTE> 13 Metabolic Panel (14), Comprehensive 03/17/2021 [facility] [address] [place] [address] [phone] Calcium 9.5 mg/dL 8.7-10.3 Glucose 81 mg/dL 65-99 BUN 30 mg/dL High 8-27 Creatinine 0.77 mg/dL 0.57-1.00 eGFR If NonAfricn Am 73 mL/min/1.73 >59 eGFR If Africn Am 84 mL/min/1.73 >59 14 BUN/Creatinine Ratio 39 High 12-28 Sodium 142 mmol/L 134-144 Potassium 4.4 mmol/L 3.5-5.2 Chloride 108 mmol/L High 96-106 Carbon Dioxide, Total 22 mmol/L 20-29 Protein, Total 6.1 g/dL 6.0-8.5 Albumin 4.0 g/dL 3.6-4.6 Globulin, Total 2.1 g/dL 1.5-4.5 A/G Ratio 1.9 1.2-2.2 Bilirubin, Total 0.7 mg/dL 0.0-1.2 Alkaline Phosphatase 91 IU/L 48-121 15 Ast (Sgot) 12 IU/L 0-40 Alt (SGPT) 8 IU/L 0-32 Lipid Panel 03/17/[address] [facility] [address] [place] [address] [phone] Cholesterol, Total 123 mg/dL 100-199 Triglycerides 141 mg/dL 0-149 HDL Cholesterol 37 mg/dL Low >39 VLDL Cholesterol Mark 25 mg/dL 5-40 LDL Chol Calc (Nih) 61 mg/dL 0-99 Comment: TNP Hemoglobin A1c 03/17/2021 [facility] [address] [place], [place] [id number] [phone] Hemoglobin A1c 4.8 % 4.8-5.6 16 Albumin/Creatinine Ratio, Random Urine 03/17/2021 [facility] [address] [place] [address] [phone] Creatinine, Urine 120.2 mg/dL Not Estab. Albumin, Urine 20.1 ug/mL Not Estab. Alb/Creat Ratio 17 mg/gcreat 0-29 17 Laboratory test finding 03/14/2021 [place] [address] [phone] Packed Cells TRANSFUSED PRODU <SEE NOTE> 18 Type & Screen -Incl Blood Type,Tye,AB SC 03/14/2021 [place] [address] [phone] Blood Type O POSITIVE Normal AB Screen (Indirect [place])Vis NEGATIVE Normal CBC With Differential 03/14/2021 [place] [address] [phone] White Blood Count 4.0 10 Normal 4.0-10.0 [...] 36.0-66.0 Lymph % 6.8 % Low 24.0-44.0 [place] % 9.3 % High 2.0-8.0 Eos % 1.0 % Normal 0.0-3.0 Baso % 0.8 % Normal 0.0-1.0 Immature Granulocyte % 0.3 % Normal 0-3.0 Nucleated Red Blood Cell % 0.0 % Normal 0-0 Neutrophils # 3.3 10 Normal 1.5-8.5 Lymph # 0.3 10 Low 1.5-5.0 [place] # 0.4 10 Normal 0.0-0.8 Eos # 0.0 10 Normal 0.0-0.5 Baso # 0.0 10 Normal 0.0-0.2 CBC With Differential 03/10/2021 Patient Service [place], [place] [address]10 [phone] White Blood Count 3.4 10 Low 4.0-10.0 [...] 36.0-66.0 Lymph % 7.6 % Low 24.0-44.0 [place] % 12.9 % High 2.0-8.0 Eos % 1.2 % Normal 0.0-3.0 Baso % 0.6 % Normal 0.0-1.0 Immature Granulocyte % 0.3 % Normal 0-3.0 Nucleated Red Blood Cell % 0.0 % Normal 0-0 Neutrophils # 2.6 10 Normal 1.5-8.5 Lymph # 0.3 10 Low 1.5-5.0 [place] # 0.4 10 Normal 0.0-0.8 Eos # 0.0 10 Normal 0.0-0.5 Baso # 0.0 10 Normal 0.0-0.2 Comprehensive Metabolic Profil 03/10/2021 [place] [address] [phone] Glucose, Fasting 166 mg/dL High 70-100 Blood Urea Nitrogen 26 mg/dL High 7-18 Creatinine For GFR 0.73 mg/dL Normal 0.55-1.30 Glomerular Filtration Rate > 60.0 Normal >32 1 9 Sodium Level 141 mEq/L Normal 136-145 [...] 1.2-2.2 Total Iron Binding Capacit 03/10/2021 [place] [address] [phone] Iron (Fe) 72 g/dL Normal 50-170 Total Iron Binding Capacity 352 g/dL Normal 250-450 Percent Saturation 20.5 % Normal 13.2-45.0 Laboratory test finding 03/10/2021 [place] [address] [phone] Carcinoembryonic Antigen < 0.5 NG/ML Normal <2.5 20 Ferritin 492 NG/ML High 8-252 Laboratory test finding 02/28/2021 [place] [address] [phone] Packed Cells TRANSFUSED PRODU <SEE NOTE> 21 Type & Screen -Incl Blood Type,Tye,AB SC 02/28/2021 [place] [address] [phone] Blood Type O POSITIVE Normal AB Screen (Indirect [place])Vis NEGATIVE Normal CBC With Differential 02/27/2021 [place] [address] [phone] White Blood Count 6.0 10 Normal 4.0-10.0 [...] 36.0-66.0 Lymph % 4.7 % Low 24.0-44.0 [place] % 11.6 % High 2.0-8.0 Eos % 0.5 % Normal 0.0-3.0 Baso % 0.3 % Normal 0.0-1.0 Immature Granulocyte % 0.8 % Normal 0-3.0 Nucleated Red Blood Cell % 0.3 % High 0-0 Neutrophils # 4.9 10 Normal 1.5-8.5 Lymph # 0.3 10 Low 1.5-5.0 [place] # 0.7 10 Normal 0.0-0.8 Eos # 0.0 10 Normal 0.0-0.5 Baso # 0.0 10 Normal 0.0-0.2 Laboratory test finding 02/27/2021 [place] [address] [phone] Ferritin 1039 NG/ML High 8-252 Creatinine With GFR 02/27/2021 Patient Service [facility] [address] [phone] Creatinine For GFR 0.76 mg/dL Normal 0.55-1.30 Glomerular Filtration Rate > 60.0 Normal >32 2 2 Laboratory test finding 02/27/2021 [place] [address] [phone] Blood Urea Nitrogen 26 mg/dL High 7-18 Total Iron Binding Capacit 02/27/2021 [place] [address] [phone] Iron (Fe) 79 g/dL Normal 50-170 Total Iron Binding Capacity 384 g/dL Normal 250-450 Percent Saturation 20.6 % Normal 13.2-45.0 Laboratory test finding 02/10/2021 Patient Service [place] 3888186 [phone] Packed Cells TRANSFUSED PRODU <SEE NOTE> 23 Type & Screen -Incl Blood Type,Tye,AB SC 02/10/2021 [place] [address] [phone] Blood Type O POSITIVE Normal AB Screen (Indirect [place]oo[place])Vis NEGATIVE Normal CBC With Differential 02/09/2021 [place] [address] [phone] White Blood Count 3.9 10 Low 4.0-10.0 [...] 36.0-66.0 Lymph % 7.2 % Low 24.0-44.0 [place] % 10.0 % High 2.0-8.0 Eos % 1.0 % Normal 0.0-3.0 Baso % 0.5 % Normal 0.0-1.0 Immature Granulocyte % 0.5 % Normal 0-3.0 Nucleated Red Blood Cell % 0.0 % Normal 0-0 Neutrophils # 3.1 10 Normal 1.5-8.5 Lymph # 0.3 10 Low 1.5-5.0 [place] # 0.4 10 Normal 0.0-0.8 Eos # 0.0 10 Normal 0.0-0.5 Baso # 0.0 10 Normal 0.0-0.2 CBC With Differential 01/27/2021 [place] [address] [phone] White Blood Count 4.2 10 Normal 4.0-10.0 [...] 36.0-66.0 Lymph % 13.6 % Low 24.0-44.0 [place] % 14.6 % High 2.0-8.0 Eos % 1.4 % Normal 0.0-3.0 Baso % 0.5 % Normal 0.0-1.0 Immature Granulocyte % 0.5 % Normal 0-3.0 Nucleated Red Blood Cell % 0.0 % Normal 0-0 Neutrophils # 2.9 10 Normal 1.5-8.5 Lymph # 0.6 10 Low 1.5-5.0 [place] # 0.6 10 Normal 0.0-0.8 Eos # 0.1 10 Normal 0.0-0.5 Baso # 0.0 10 Normal 0.0-0.2 Comprehensive Metabolic Profil 01/27/2021 [place] [address] [phone] Glucose, Fasting 59 mg/dL Low 70-100 Blood Urea Nitrogen 25 mg/dL High 7-18 Creatinine For GFR 0.71 mg/dL Normal 0.55-1.30 Glomerular Filtration Rate > 60.0 Normal >32 2 4 Sodium Level 141 mEq/L Normal 136-145 [...] Binding Capacit 01/27/2021 [place] [address] [phone] Iron (Fe) 59 g/dL Normal 50-170 Total Iron Binding Capacity 397 g/dL Normal 250-450 Percent Saturation 14.9 % Normal 13.2-45.0 Laboratory test finding 01/27/2021 [place] [address] [phone] Ferritin 39 NG/ML Normal 8-252 Carcinoembryonic Antigen 0.5 NG/ML Normal <2.5 25 Creatinine With GFR 01/20/2021 [place] [address] [phone] Creatinine For GFR 0.69 mg/dL Normal 0.55-1.30 Glomerular Filtration Rate > 60.0 Normal >32 2 6 Type & Screen -Incl Blood Type,Tye,AB SC 01/20/2021 [place] [address] [phone] Blood Type O POSITIVE Normal AB Screen (Indirect [place])Vis NEGATIVE Normal Laboratory test finding 01/20/2021 [place] [address] [phone] Blood Urea Nitrogen 21 mg/dL High 7-18 Complete Blood Count 01/20/2021 [place] [address] [phone] White Blood Count 3.3 10 Low 4.0-10.0 [...] Coronavirus 2019 Nasopharygeal 01/16/2021 [place] [address] [phone] Coronavirus 2019 Nasopharygeal ASSAY INFORMATIO <SEE N OTE> 27 Type & Screen -Incl Blood Type,Tye,AB SC 01/03/2021 [place] [address] [phone] Blood Type O POSITIVE Normal AB Screen (Indirect [place])Vis NEGATIVE Normal Laboratory test finding 01/03/2021 Patient Service [place] 3888157 [phone] Packed Cells TRANSFUSED PRODU <SEE NOTE> 28 CBC With Differential 01/02/2021 [place] [address] [phone] White Blood Count 4.3 10 Normal 4.0-10.0 [...] 36.0-66.0 Lymph % 10.7 % Low 24.0-44.0 [place] % 13.1 % High 2.0-8.0 Eos % 0.7 % Normal 0.0-3.0 Baso % 0.5 % Normal 0.0-1.0 Immature Granulocyte % 0.5 % Normal 0-3.0 Nucleated Red Blood Cell % 0.0 % Normal 0-0 Neutrophils # 3.2 10 Normal 1.5-8.5 Lymph # 0.5 10 Low 1.5-5.0 [place] # 0.6 10 Normal 0.0-0.8 Eos # 0.0 10 Normal 0.0-0.5 Baso # 0.0 10 Normal 0.0-0.2 Comprehensive Metabolic Profil 01/02/2021 Patient S [place] 1571788 [phone] Glucose, Fasting 155 mg/dL High 70-100 Blood Urea Nitrogen 24 mg/dL High 7-18 Creatinine For GFR 0.85 mg/dL Normal 0.55-1.30 Glomerular Filtration Rate > 60.0 Normal >32 2 9 Sodium Level 137 mEq/L Normal 136-145 Potassium [...] Binding Capacit 01/02/2021 [place] [address] [phone] Iron (Fe) 55 g/dL Normal 50-170 Total Iron Binding Capacity 398 g/dL Normal 250-450 Percent Saturation 13.8 % Normal 13.2-45.0 Laboratory test finding 01/02/2021 [place] [address] [phone] Thyroid Stimulating Hormone 1.660 uIU/ML Normal 0. 358-3.740 Free T4 0.87 ng/dL Normal 0.76-1.46 Ferritin 58 NG/ML Normal 8-252 Laboratory test finding 12/23/2020 [place] [address] [phone] iSTAT Troponin 0.01 NG/ML Normal 0.00-0.08 Laboratory test finding 12/23/2020 [place] [address] [phone] Lipase 73 U/L Normal 73-393 Lactic Acid Sepsis Protocol 0.8 mmol/L Normal 0.4-2.0 30 Liver Profile 12/23/2020 [place] [address] [phone] Ast/Sgot 13 U/L Normal 7-37 Alt/SGPT 14 U/L Normal 12-78 Alkaline Phosphatase 95 U/L Normal 45-117 Bilirubin,Total 0.9 mg/dL Normal 0.2-1.0 Bilirubin,Direct 0.3 mg/dL High 0.0-0.2 Total Protein 6.5 GM/DL Normal 6.4-8.2 Albumin 3.4 GM/DL Normal 3.2-5.2 Albumin/Globulin Ratio 1.1 Low 1.2-2.2 CBC With Differential 12/23/2020 [place] [address] [phone] White Blood Count 4.5 10 Normal 4.0-10.0 [...] 36.0-66.0 Lymph % 9.7 % Low 24.0-44.0 [place] % 11.9 % High 2.0-8.0 Eos % 0.9 % Normal 0.0-3.0 Baso % 0.4 % Normal 0.0-1.0 Immature Granulocyte % 0.4 % Normal 0-3.0 Nucleated Red Blood Cell % 0.0 % Normal 0-0 Neutrophils # 3.5 10 Normal 1.5-8.5 Lymph # 0.4 10 Low 1.5-5.0 [place] # 0.5 10 Normal 0.0-0.8 Eos # 0.0 10 Normal 0.0-0.5 Baso # 0.0 10 Normal 0.0-0.2 Istat Chem8+ Panel 12/23/2020 [place] [address] [phone] iSTAT HCT 33.0 % Low 38.0-51.0 iSTAT Glucose 94 mg/dL Normal 70-105 iSTAT Sodium 138 mEq/L Normal 136-145 iSTAT Potassium 4.2 mEq/L Normal 3.5-5.1 iSTAT CA++ 5.0 mg/dL Normal 4.5-5.3 iSTAT Chloride 102 mEq/L Normal 98-109 iSTAT Co2 27.0 MM/L Normal 23.0-27.0 iSTAT BUN 20 mg/dL Normal 8-26 iSTAT Creatinine 0.7 mg/dL Normal 0.6-1.3 PT & Aptt 12/23/2020 Patient Service [place], [place] [address]103 [phone] Prothrombin Time 13.3 seconds Normal 12.5-14.3 Inr 0.99 Normal 31 Partial Thromboplastin Time 29.5 seconds Normal 24.2-38.5 CBC With Differential 12/19/2020 Patient Service Ce [place], [place] [address]11 [phone] White Blood Count 3.8 10 Low 4.0-10.0 [...] 36.0-66.0 Lymph % 11.7 % Low 24.0-44.0 [place] % 11.9 % High 2.0-8.0 Eos % 1.1 % Normal 0.0-3.0 Baso % 0.3 % Normal 0.0-1.0 Immature Granulocyte % 0.5 % Normal 0-3.0 Nucleated Red Blood Cell % 0.0 % Normal 0-0 Neutrophils # 2.8 10 Normal 1.5-8.5 Lymph # 0.4 10 Low 1.5-5.0 [place] # 0.5 10 Normal 0.0-0.8 Eos # 0.0 10 Normal 0.0-0.5 Baso # 0.0 10 Normal 0.0-0.2 CBC With Differential 12/05/2020 Patient Service [place], [place] [address]3943 [phone] White Blood Count 3.4 10 Low 4.0-10.0 [...] 36.0-66.0 Lymph % 12.8 % Low 24.0-44.0 [place] % 13.7 % High 2.0-8.0 Eos % 1.2 % Normal 0.0-3.0 Baso % 0.6 % Normal 0.0-1.0 Immature Granulocyte % 0.3 % Normal 0-3.0 Nucleated Red Blood Cell % 0.0 % Normal 0-0 Neutrophils # 2.4 10 Normal 1.5-8.5 Lymph # 0.4 10 Low 1.5-5.0 [place] # 0.5 10 Normal 0.0-0.8 Eos # 0.0 10 Normal 0.0-0.5 Baso # 0.0 10 Normal 0.0-0.2 PT & Aptt 12/05/2020 [place] [address] [phone] Prothrombin Time 13.3 seconds Normal 12.5-14.3 Inr 0.99 Normal 32 Partial Thromboplastin Time 29.4 seconds Normal 24.2-38.5 Total Iron Binding Capacit 12/05/2020 [place] [address] [phone] Iron (Fe) 94 g/dL Normal 50-170 Total Iron Binding Capacity 350 g/dL Normal 250-450 Percent Saturation 26.9 % Normal 13.2-45.0 Laboratory test finding 12/05/2020 [place] [address] [phone] Ferritin 108 NG/ML Normal 8-252 Complete Blood Count 11/25/[address] [place] [address] [phone] White Blood Count 4.4 10 Normal 4.0-10.0 [...] -Incl Blood Type,Tye,AB SC 11/25/2020 [place] [address] [phone] Blood Type O POSITIVE Normal AB Screen (Indirect Farooq)Vis NEGATIVE Normal Laboratory test finding 11/25/2020 [place] [address] [phone] NT-Pro BNP 1795 pg/mL High <450 Cardiac Marker Panel 11/25/2020 [place] [address] [phone] CPK Creatine Phosphokinase 60 U/L Normal 26-19 2 CK-MB Value Mass 1.3 NG/ML Normal <3.6 MB/CK Relative Index 2.17 Normal < Or =4 33 Troponin I < 0.02 NG/ML Normal < 0.10 34 Comprehensive Metabolic Profil 11/25/2020 [place] [address] [phone] Glucose, Fasting 110 mg/dL High 70-100 Blood Urea Nitrogen 22 mg/dL High 7-18 Creatinine For GFR 0.68 mg/dL Normal 0.55-1.30 Glomerular Filtration Rate > 60.0 Normal >32 3 5 Sodium Level 140 mEq/L Normal 136-145 Potassium [...] & Aptt 11/25/2020 [place] [address] [phone] Prothrombin Time 16.4 seconds High 12.5-14.3 Inr 1.29 Normal 36 Partial Thromboplastin Time 33.4 seconds Normal 24.2-38.5 CBC With Differential 11/07/2020 [place] [address] [phone] White Blood Count 3.2 10 Low 4.0-10.0 [...] 36.0-66.0 Lymph % 10.5 % Low 24.0-44.0 [place] % 13.3 % High 2.0-8.0 Eos % 0.9 % Normal 0.0-3.0 Baso % 0.6 % Normal 0.0-1.0 Immature Granulocyte % 0.3 % Normal 0-3.0 Nucleated Red Blood Cell % 0.0 % Normal 0-0 Neutrophils # 2.4 10 Normal 1.5-8.5 Lymph # 0.3 10 Low 1.5-5.0 [place] # 0.4 10 Normal 0.0-0.8 Eos # 0.0 10 Normal 0.0-0.5 Baso # 0.0 10 Normal 0.0-0.2 Comprehensive Metabolic Profil 11/07/2020 [place] [address] [phone] Glucose, Fasting 142 mg/dL High 70-100 Blood Urea Nitrogen 17 mg/dL Normal 7-18 Creatinine For GFR 0.72 mg/dL Normal 0.55-1.30 Glomerular Filtration Rate > 60.0 Normal >32 3 7 Sodium Level 140 mEq/L Normal 136-145 Potassium [...] Total Iron Binding Capacit 11/07/2020 Patient [facility] ce [facility] [place], [place] [id number] [phone] Iron (Fe) 43 g/dL Low 50-170 Total Iron Binding Capacity 302 g/dL Normal 250-450 Percent Saturation 14.2 % Normal 13.2-45.0 Laboratory test finding 11/07/2020 Patient Service Center [place], [place] [id number] [phone] Ferritin 207 NG/ML Normal 8-252 1 THERAPUTIC HUMAN INR VALUES INDICATIONS NORMAL RANGES PROPHYLAXIS/TREATMENT OF: VENOUS THROMBOSIS 2.0-3.0 PULMONARY EMBOLISM 2.0-3.0 PREVENTION OF SYSTEMIC EMBOLISM FROM: TISSUE HEART VALVES 2.0-3.0 ACUTE MYOCARDIAL INFARCTION 2.0-3.0 VALVULAR HEART DISEASE 2.0-3.0 ATRIAL FIBRILLATION 2.0-3.0 MECHANICAL VALVES(HIGH RISK) 2.5-3.5 RECURRENT MYOCARDIAL INFARCTION 2.5-3.5 2 UNABLE TO PERFORM TEST DUE T O hct <35% 3 TRANSFUSED PRODUCT: PACKED C ELLS COUNT: 2 4 ASSAY INFORMATION: Real Time RT-PCR or TMA. Both RT-PCR and TMA are nucleic acid amplification tests (NAAT) which are molecular testing modalities and recommended by the CDC for passenger travel. Testing and International Air Travel, cdc.gov/coronavirus/2019-ncov/travelers/btdqgbl-pnt-tmqgse.html 09/01/2020 NOTE: The COVID-19 assay is under Emergency Use Authorization (EUA) by the U.S. Food and Drug Administration. [facility] are designated as high complexity laboratories by the Clinical Laboratory Improvement Amendments of 1988 (CLIA) and are qualified to perform this test. Not Detected 5 Units are mL/min/1.73 m2 Chronic Kidney Disease Staging per NKF: Stage I & II GFR >=60 Normal to Mildly Decreased Stage III GFR 30-59 Moderately Decreased Stage IV GFR 15-29 Severely Decreased Stage V GFR <15 Very Little GFR Left ESRD GFR <15 on BOARDMARKER 6 THE CEA ASSAY IS PERFORMED O N THE Survival MediaAUR BY CHEMILUMINESCENCE AND SHOULD NOT BE COMPARED INTERCHANGEABLY WITH OTHER METHODS. IT SHOULD NOT BE USED ALONE A SCREENING TEST OR DIAGNOSIS FOR THE PRESENCE OR ABSENCE OF MALIGNANT DISEASE. PREDICTIONS OF DISEASE RECURRENCE SHOULD NOT BE BASED SOLELY ON VALUES OBTAINED FROM SERIAL PATIENT SERUM VALUES. 7 TRANSFUSED PRODUCT: PACKED C ELLS COUNT: 3 8 Units are mL/min/1.73 m2 Chronic Kidney Disease Staging per NKF: Stage I & II GFR >=60 Normal to Mildly Decreased Stage III GFR 30-59 Moderately Decreased Stage IV GFR 15-29 Severely Decreased Stage V GFR <15 Very Little GFR Left ESRD GFR <15 on BOARDMARKER 9 Negative results do not prec lude influenza or RSV virus infection and should not be used as the sole basis for treatment or other patient management decisions. 10 Negative results do not prec lude influenza or RSV virus infection and should not be used as the sole basis for treatment or other patient management decisions. 11 Negative results do not prec lude influenza or RSV virus infection and should not be used as the sole basis for treatment or other patient management decisions. 12 A false negative result may occur if [...] pathogens. DISCLAIMER: Testing was performed using the [employer] SARS-CoV-2 test. This test was developed and its performance characteristics determined by [employer]. This test has not been FDA cleared [...] the authorization is terminated or revoked sooner. 13 TRANSFUSED PRODUCT: PACKED C ELLS COUNT: 1 14 [facility] currently reports eGFR in compliance with the current recommendations of the [employer]. [facility] will update reporting as new guidelines are published from the NKF-ASN Task force. 15 Effective March 27 Alkaline Phosphatase reference interval [...] years 44 - 121 44 - 121 16 Prediabetes: 5.7 - 6.4 Diabetes: >6.4 Glycemic control for adults with diabetes: <7.0 17 Normal: 0 - 29 Moderately increased: 30 - 300 Severely increased: >300 18 TRANSFUSED PRODUCT: PACKED C ELLS COUNT: 2 19 Units are mL/min/1.73 m2 Chronic Kidney Disease Staging per NKF: Stage I & II GFR >=60 Normal to Mildly Decreased Stage III GFR 30-59 Moderately Decreased Stage IV GFR 15-29 Severely Decreased Stage V GFR <15 Very Little GFR Left ESRD GFR <15 on BOARDMARKER 20 THE CEA ASSAY IS PERFORMED O N THE [employer] BY CHEMILUMINESCENCE AND SHOULD NOT BE COMPARED INTERCHANGEABLY WITH OTHER METHODS. IT SHOULD NOT BE USED ALONE A SCREENING TEST OR DIAGNOSIS FOR THE PRESENCE OR ABSENCE OF MALIGNANT DISEASE. PREDICTIONS OF DISEASE RECURRENCE SHOULD NOT BE BASED SOLELY ON VALUES OBTAINED FROM SERIAL PATIENT SERUM VALUES. 21 TRANSFUSED PRODUCT: PACKED C ELLS COUNT: 2 22 Units are mL/min/1.73 m2 Chronic Kidney Disease Staging per NKF: Stage I & II GFR >=60 Normal to Mildly Decreased Stage III GFR 30-59 Moderately Decreased Stage IV GFR 15-29 Severely Decreased Stage V GFR <15 Very Little GFR Left ESRD GFR <15 on BOARDMARKER 23 TRANSFUSED PRODUCT: PACKED C ELLS COUNT: 2 24 Units are mL/min/1.73 m2 Chronic Kidney Disease Staging per NKF: Stage I & II GFR >=60 Normal to Mildly Decreased Stage III GFR 30-59 Moderately Decreased Stage IV GFR 15-29 Severely Decreased Stage V GFR <15 Very Little GFR Left ESRD GFR <15 on BOARDMARKER 25 THE CEA ASSAY IS PERFORMED O N THE [employer] BY CHEMILUMINESCENCE AND SHOULD NOT BE COMPARED INTERCHANGEABLY WITH OTHER METHODS. IT SHOULD NOT BE USED ALONE A SCREENING TEST OR DIAGNOSIS FOR THE PRESENCE OR ABSENCE OF MALIGNANT DISEASE. PREDICTIONS OF DISEASE RECURRENCE SHOULD NOT BE BASED SOLELY ON VALUES OBTAINED FROM SERIAL PATIENT SERUM VALUES. 26 Units are mL/min/1.73 m2 Chronic Kidney Disease Staging per NKF: Stage I & II GFR >=60 Normal to Mildly Decreased Stage III GFR 30-59 Moderately Decreased Stage IV GFR 15-29 Severely Decreased Stage V GFR <15 Very Little GFR Left ESRD GFR <15 on BOARDMARKER 27 ASSAY INFORMATION: Real Time RT-PCR NOTE: The COVID-19 assay has been cleared by the U.S. Food and Drug Administration under the Emergency Use Authorization (EUA). [facility] are designated as high complexity laboratories by the Clinical Laboratory Improvement Amendments of 1988(CLIA) and are qualified to perform this test. Not Detected 28 TRANSFUSED PRODUCT: PACKED C ELLS COUNT: 1 29 Units are mL/min/1.73 m2 Chronic Kidney Disease Staging per NKF: Stage I & II GFR >=60 Normal to Mildly Decreased Stage III GFR 30-59 Moderately Decreased Stage IV GFR 15-29 Severely Decreased Stage V GFR <15 Very Little GFR Left ESRD GFR <15 on BOARDMARKER 30 Y/N query for Sepsis Lactate Rule: Y 31 THERAPUTIC HUMAN INR VALUES INDICATIONS NORMAL RANGES PROPHYLAXIS/TREATMENT OF: VENOUS THROMBOSIS 2.0-3.0 PULMONARY EMBOLISM 2.0-3.0 PREVENTION OF SYSTEMIC EMBOLISM FROM: TISSUE HEART VALVES 2.0-3.0 ACUTE MYOCARDIAL INFARCTION 2.0-3.0 VALVULAR HEART DISEASE 2.0-3.0 ATRIAL FIBRILLATION 2.0-3.0 MECHANICAL VALVES(HIGH RISK) 2.5-3.5 RECURRENT MYOCARDIAL INFARCTION 2.5-3.5 32 THERAPUTIC HUMAN INR VALUES INDICATIONS NORMAL RANGES PROPHYLAXIS/TREATMENT OF: VENOUS THROMBOSIS 2.0-3.0 PULMONARY EMBOLISM 2.0-3.0 PREVENTION OF SYSTEMIC EMBOLISM FROM: TISSUE HEART VALVES 2.0-3.0 ACUTE MYOCARDIAL INFARCTION 2.0-3.0 VALVULAR HEART DISEASE 2.0-3.0 ATRIAL FIBRILLATION 2.0-3.0 MECHANICAL VALVES(HIGH RISK) 2.5-3.5 RECURRENT MYOCARDIAL INFARCTION 2.5-3.5 33 DIAGNOSIS CRITERIA MMB ng/ml Relative Index (RI) NON-AMI < or = 5 N/A LEVINE ZONE > 5 < or = 4 AMI > 5 > 4 34 Troponin I Reference Interva l for [employer] LOCI: 99th Percentile= 0.00-0.045 ng/ml Risk Stratification: <= 0.10 ng/ml Decreased Risk for Adverse Clinical Events. 0.10-1.50 ng/ml Increased Risk for Adv erse Clinical Events. Evaluation of additional criterion and/or repeat testing in 2-6 hours is suggested to rule out myocardial damage. >= 1.50 ng/ml Indicative of Myocardial Injury. 35 Units are mL/min/1.73 m2 Chronic Kidney Disease Staging per NKF: Stage I & II GFR >=60 Normal to Mildly Decreased Stage III GFR 30-59 Moderately Decreased Stage IV GFR 15-29 Severely Decreased Stage V GFR <15 Very Little GFR Left ESRD GFR <15 on BOARDMARKER 36 THERAPUTIC HUMAN INR VALUES INDICATIONS NORMAL RANGES PROPHYLAXIS/TREATMENT OF: VENOUS THROMBOSIS 2.0-3.0 PULMONARY EMBOLISM 2.0-3.0 PREVENTION OF SYSTEMIC EMBOLISM FROM: TISSUE HEART VALVES 2.0-3.0 ACUTE MYOCARDIAL INFARCTION 2.0-3.0 VALVULAR HEART DISEASE 2.0-3.0 ATRIAL FIBRILLATION 2.0-3.0 MECHANICAL VALVES(HIGH RISK) 2.5-3.5 RECURRENT MYOCARDIAL INFARCTION 2.5-3.5 37 Units are mL/min/1.73 m2 Chronic Kidney Disease Staging per NKF: Stage I & II GFR >=60 Normal to Mildly Decreased Stage III GFR 30-59 Moderately Decreased Stage IV GFR 15-29 Severely Decreased Stage V GFR <15 Very Little GFR Left ESRD GFR <15 on BOARDMARKER Procedures Date Code Description Status 03/28/2021 [id number] [place] W/I 7 Days Of DC, Comm W/I 2 Dys Completed 03/23/2021 [id number] Office/Outpatient Established Mo d MDM 30-39 Min Completed 03/23/2021 [id number] Diabetic Foot Exam Completed 01/25/2021 [id number] [place] W/I 7 Days Of DC, Comm W/I 2 Dys Completed 12/27/2020 [id number] Office/Outpatient Established Mo d MDM 30-39 Min Completed 12/19/2020 [id number] Office/Outpatient Established Mo d MDM 30-39 Min Completed 12/02/2020 [id number] [place] W/I 7 Days Of DC, [...] Visit 01/25/2021 2:15p Main Office Nadiya Bryan [employer] SCI[employer]IST D64.9 Anemia, unspecified K29.61 Other gastritis with bleedin g Office Visit 12/27/2020 3:45p Main Office Anitha Gamez M.D. 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 D64.9 Anemia, unspecified Office Visit 12/19/2020 2:15p Main Office Nadiya Bryan [employer] SCI[employer]IST E11.6 9 Type 2 diabetes mellitus with other specified complication E78.2 Mixed hyperlipidemia I10 Essential (primary) hyperten yara 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 C18.9 Malignant neoplasm of colon, unspecified I48.91 Unspecified atrial fibrillat ion Office Visit 12/02/2020 10:30a Main Office PleskachStevey, [employer] SCIENTIST D64.9 Anemia, unspecified E11.69 Type 2 diabetes mellitus wit h other specified complication E78.2 Mixed hyperlipidemia I10 Essential (primary) hyperten yara 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 C18.9 Malignant neoplasm of colon, unspecified I48.91 Unspecified atrial fibrillat ion Assessments Date Code Description Provider 03/28/2021 D64.9 Anemia, unspecified Pleskach, Mo lly, [employer] SCIENTIST 03/28/2021 K29.61 Other gastritis with bleeding Pl eskach Nadiya, W[employer] SCIENTIST 03/23/2021 E11.69 Type 2 diabetes mellitus with ot her specified complication Pleskach, Nadiya, W[employer] SCIENTIST 03/23/2021 C18.9 Malignant neoplasm of colon, uns pecified Pleskach, Nadiya, W[employer] SCIENTIST 03/23/2021 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 Plealexy Nadiya , [employer] SCIENTIST 03/23/2021 E78.2 Mixed hyperlipidemia Pleskach, M jarocho, W[employer] SCIENTIST 03/23/2021 I10 Essential (primary) hypertension Pleskach, Nadiya, W[employer] SCIENTIST 03/23/2021 I48.91 Unspecified atrial fibrillation Pleskach, Nadiya, [employer] SCIENTIST 03/23/2021 D64.9 Anemia, unspecified Pleskach, Mo lly, W[employer] SCIENTIST 01/25/2021 D64.9 Anemia, unspecified Pleskach, Mo lly, W[employer] SCIENTIST 01/25/2021 K29.61 Other gastritis with bleeding Pl eskach Nadiya, W[employer] SCIENTIST 12/27/2020 E11.69 Type 2 diabetes mellitus with ot her specified complication Anitha Gamez M.D. 12/27/2020 C18.9 Malignant neoplasm of colon, uns pecified Anitha Gamez M.D. 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 12/27/2020 D64.9 Anemia, unspecified Angela Gamez M.D. 12/19/2020 E11.69 Type 2 diabetes mellitus with ot her specified complication Pleskach, Nadiya, [employer] SCIENTIST 12/19/2020 E78.2 Mixed hyperlipidemia Pleskach, M jarocho, [employer] SCIENTIST 12/19/2020 I10 Essential (primary) hypertension Steve Bryany, W[employer] SCIENTIST 12/19/2020 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 PlegudeliaachStevey , W[employer] SCIENTIST 12/19/2020 C18.9 Malignant neoplasm of colon, uns pecified Plegudeliaach Nadiya, W[employer] SCIENTIST 12/19/2020 I48.91 Unspecified atrial fibrillation Plealexy Nadiya, W[employer] SCIENTIST 12/02/2020 D64.9 Anemia, unspecified PlegudeliaDeejay maya lljania, W[employer]UTION SCIENTIST 12/02/2020 E11.69 Type 2 diabetes mellitus with ot her specified complication Pleskach Nadiya, W[employer] SCIENTIST 12/02/2020 E78.2 Mixed hyperlipidemia Plealexy M jarocho, W[employer] SCIENTIST 12/02/2020 I10 Essential (primary) hypertension PleNadiya tracey, W[employer] SCIENTIST 12/02/2020 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 PleNadiya tracey , W[employer] SCIENTIST 12/02/2020 C18.9 Malignant neoplasm of colon, uns pecified Plegudeliaach Nadiya, W[employer] SCIENTIST 12/02/2020 I48.91 Unspecified atrial fibrillation Nadiya Bryan, W[employer] SCIENTIST Plan of Treatment Future Appointment(s):* 06/22/2021 3:30 [...]
--- OUTSIDE RECORDS SUMMARY | 2021-05-23 16:56 | CCD | Continuity of Care Document ---
Author Author Meron BRYAN GARAGE WORKER Organization Unknown Address [address] [place] [address] Phone [phone] Care Team Providers Care Security Control Center Operator Name Role Phone [facility] AUTM [phone] Niels Decker M.D. AUTM [phone] [facility] AUTM Jeff Cramer AUTM [phone] Problems Active Problems Provider Date Type 2 [...] 236units C18.9 Nadiya Bryan FNP 06/16/2020 Z93.2 Aurora Remover Wipes Misc use 3-4 wipes every 4 days and as needed when changing ostomy 2Box Z93.2 Nadiya Bryan FNP 06/16/2020 C18.9 Efren Adapt Ceraing change every 4-5 days and as needed ref #[id number] 20units Nadiya Bryan FNP 05/05/2020 [place] 2 Piece Ostomy Skin Barrier ref # [id number] márquez ge every 4-5 days and as needed 20units C18.9 Nadiya Bryan FNP 04/14/2020 Z93.2 [place] 2 Piece Drainable Ostomy Pouch ref # [id number] c hange every 4-5 days and as [...] CPT Code Status Date Vaccine Lot # 42215 Refused 04/17/2016 Pneumococcal Vaccine 54732 Refused 04/17/2016 Prevnar 13 93341 Refused 04/17/2016 Influenza Vaccination Vital Signs Date Vital Result Comment 03/28/2021 11:51am BP Systolic 113 mmHg BP Diastolic 83 mmHg Heart Rate 127 /min Body Temperature 98.0 F Respiratory Rate 18 /min Height 61.5 inches 5'1.50" Weight 114.38 lb O2 % BldC Oximetry 100 % Gold Bar Body Weight 105 lb BMI (Body Mass Index) 21.3 kg/m2 03/23/2021 3:47pm BP Systolic 110 mmHg BP Diastolic 62 mmHg Heart Rate 64 /min Body Temperature 98.7 F Respiratory Rate 16 /min Height 61.5 inches 5'1.50" Weight 116.38 lb O2 % BldC Oximetry 99 % Gold Bar Body Weight 105 lb BMI (Body Mass Index) 21.6 kg/m2 Results Test Acquired Date Facility Test Result H/L Range Note Prothrombin Time/Inr 05/05/2021 [place] [address] [phone] Prothrombin Time 14.0 seconds Normal 12.7-14.5 Inr 1.04 Normal 1 Laboratory test finding 05/05/2021 [place] [address] [phone] Partial Thromboplastin Time 24.9 seconds Low 25 .9-37.0 Platelet Function Analysis 05/05/2021 [place] [address] [phone] Collagen Epinephrine TNP seconds Normal 74-162 2 Laboratory test finding 05/05/2021 [place] [address] [phone] LDH Lactate Dehydrogenase 128 U/L Normal 84-246 CBC With Differential 05/05/2021 [place] [address] [phone] White Blood Count 5.1 10 Normal 4.0-10.0 [...] 36.0-66.0 Lymph % 6.3 % Low 24.0-44.0 [place] % 11.5 % High 2.0-8.0 Eos % 0.8 % Normal 0.0-3.0 Baso % 0.4 % Normal 0.0-1.0 Immature Granulocyte % 0.6 % Normal 0-3.0 Nucleated Red Blood Cell % 0.0 % Normal 0-0 Neutrophils # 4.1 10 Normal 1.5-8.5 Lymph # 0.3 10 Low 1.5-5.0 [place] # 0.6 10 Normal 0.0-0.8 Eos # 0.0 10 Normal 0.0-0.5 Baso # 0.0 10 Normal 0.0-0.2 Type & Screen -Incl Blood Type,Tye,AB SC 05/05/2021 [place] [address] [phone] Blood Type O POSITIVE Normal AB Screen (Indirect Farooq)Vis NEGATIVE Normal Laboratory test finding 05/05/2021 [place] [address] [phone] Packed Cells TRANSFUSED PRODU <SEE NOTE> 3 Retic (Reticulocyte Count) 05/05/2021 [place] [address] [phone] Reticulocyte % 5.9 % High 0.5-1.5 Reticulocyte # 119.8 10 High 17-77 Retic Hemoglobin Equivalent 30.7 pg Normal 24-36 CBC With Differential 04/27/2021 [place] [address] [phone] White Blood Count 4.2 10 Normal 4.0-10.0 [...] 36.0-66.0 Lymph % 8.1 % Low 24.0-44.0 [place] % 12.8 % High 2.0-8.0 Eos % 1.0 % Normal 0.0-3.0 Baso % 0.2 % Normal 0.0-1.0 Immature Granulocyte % 0.5 % Normal 0-3.0 Nucleated Red Blood Cell % 0.0 % Normal 0-0 Neutrophils # 3.3 10 Normal 1.5-8.5 Lymph # 0.3 10 Low 1.5-5.0 [place] # 0.5 10 Normal 0.0-0.8 Eos # 0.0 10 Normal 0.0-0.5 Baso # 0.0 10 Normal 0.0-0.2 CBC With Differential 04/20/2021 Patient Service [place] [id number] [phone] White Blood Count 3.9 10 Low 4.0-10.0 [...] 36.0-66.0 Lymph % 8.8 % Low 24.0-44.0 [place] % 11.9 % High 2.0-8.0 Eos % 1.0 % Normal 0.0-3.0 Baso % 0.5 % Normal 0.0-1.0 Immature Granulocyte % 0.8 % Normal 0-3.0 Nucleated Red Blood Cell % 0.0 % Normal 0-0 Neutrophils # 3.0 10 Normal 1.5-8.5 Lymph # 0.3 10 Low 1.5-5.0 [place] # 0.5 10 Normal 0.0-0.8 Eos # 0.0 10 Normal 0.0-0.5 Baso # 0.0 10 Normal 0.0-0.2 CBC With Differential 04/12/2021 [place] [address] [phone] White Blood Count 4.6 10 Normal 4.0-10.0 [...] 36.0-66.0 Lymph % 6.6 % Low 24.0-44.0 [place] % 9.4 % High 2.0-8.0 Eos % 0.9 % Normal 0.0-3.0 Baso % 0.2 % Normal 0.0-1.0 Immature Granulocyte % 0.4 % Normal 0-3.0 Nucleated Red Blood Cell % 0.0 % Normal 0-0 Neutrophils # 3.8 10 Normal 1.5-8.5 Lymph # 0.3 10 Low 1.5-5.0 [place] # 0.4 10 Normal 0.0-0.8 Eos # 0.0 10 Normal 0.0-0.5 Baso # 0.0 10 Normal 0.0-0.2 Coronavirus 2019 Nasopharygeal 04/10/20[place] [address] [phone] Coronavirus 2019 Nasopharygeal ASSAY INFORMATIO <SEE N OTE> 4 Comprehensive Metabolic Profil 04/07/2021 Patient S ervice [place], [place] [id number] [phone] Glucose, Fasting 184 mg/dL High 70-100 Blood [...] Binding Capacit 04/07/2021 [place] [address] [phone] Iron (Fe) 48 g/dL Low 50-170 Total Iron Binding Capacity 353 g/dL Normal 250-450 Percent Saturation 13.6 % Normal 13.2-45.0 Laboratory test finding 04/07/2021 [place] [address] [phone] Carcinoembryonic Antigen < 0.5 NG/ML Normal <2.5 6 Ferritin 66 NG/ML Normal 8-252 CBC With Differential 04/07/2021 [place] [address] [phone] White Blood Count 3.4 10 Low 4.0-10.0 [...] 36.0-66.0 Lymph % 8.5 % Low 24.0-44.0 [place] % 10.9 % High 2.0-8.0 Eos % 0.9 % Normal 0.0-3.0 Baso % 0.6 % Normal 0.0-1.0 Immature Granulocyte % 0.6 % Normal 0-3.0 Nucleated Red Blood Cell % 0.0 % Normal 0-0 Neutrophils # 2.7 10 Normal 1.5-8.5 Lymph # 0.3 10 Low 1.5-5.0 [place] # 0.4 10 Normal 0.0-0.8 Eos # 0.0 10 Normal 0.0-0.5 Baso # 0.0 10 Normal 0.0-0.2 Laboratory test finding 04/07/2021 Patient Service Center [place], [place] 6026628 [phone] Packed Cells TRANSFUSED PRODU <SEE NOTE> 7 Type & Screen -Incl Blood Type,Tye,AB SC 04/07/2021 [place] [address] [phone] Blood Type O POSITIVE Normal AB Screen (Indirect Farooq)Vis NEGATIVE Normal Comprehensive Metabolic Profil 03/24/20[facility] [place] [place] [id number] [phone] Glucose, Fasting 96 mg/dL Normal 70-100 Blood [...] CBC With Differential 03/24/2021 Patient Service Ce [facility] [place] [address] [phone] White Blood Count 4.6 10 Normal 4.0-10.0 [...] 36.0-66.0 Lymph % 6.2 % Low 24.0-44.0 [place] % 11.4 % High 2.0-8.0 Eos % 0.4 % Normal 0.0-3.0 Baso % 0.4 % Normal 0.0-1.0 Immature Granulocyte % 0.4 % Normal 0-3.0 Nucleated Red Blood Cell % 0.7 % High 0-0 Neutrophils # 3.7 10 Normal 1.5-8.5 Lymph # 0.3 10 Low 1.5-5.0 [place] # 0.5 10 Normal 0.0-0.8 Eos # 0.0 10 Normal 0.0-0.5 Baso # 0.0 10 Normal 0.0-0.2 Influenza A/B RSV Covid Amp 03/24/2021 [place] [address] [phone] Influenza A Amplification NEGATIVE Normal Negati ve 9 Influenza B Amplification NEGATIVE Normal Negative 10 RSV Amplification NEGATIVE Normal Negative 11 Sars Covid-19 Amplification NEGATIVE Normal Negative 12 Laboratory test finding 03/24/2021 Patient [facility] [place] [address] [phone] Packed Cells TRANSFUSED PRODU <SEE NOTE> 13 Metabolic Panel (14), Comprehensive 03/17/2021 [facility] [address] [place] [address] [phone] Calcium 9.5 mg/dL 8.7-10.3 Glucose 81 mg/dL [...] 8 IU/L 0-32 Lipid Panel 03/17/2021 [facility] [address] [place] [address] [phone] Cholesterol, Total 123 mg/dL 100-199 Triglycerides 141 mg/dL 0-149 HDL Cholesterol 37 mg/dL Low >39 VLDL Cholesterol Mark 25 mg/dL 5-40 LDL Chol Calc (Nih) 61 mg/dL 0-99 Comment: TNP Hemoglobin A1c 03/17/2021 [facility] [address] [place] [address] [phone] Hemoglobin A1c 4.8 % 4.8-5.6 16 Albumin/Creatinine Ratio, Random Urine 03/17/2021 [facility] [address] [place] [address] [phone] Creatinine, Urine 120.2 mg/dL Not Estab. Albumin, Urine 20.1 ug/mL Not Estab. Alb/Creat Ratio 17 mg/gcreat 0-29 17 Laboratory test finding 03/14/2021 [place] [address] [phone] Packed Cells TRANSFUSED PRODU <SEE NOTE> 18 Type & Screen -Incl Blood Type,Tye,AB SC 03/14/2021 [place] [address] [phone] Blood Type O POSITIVE Normal AB Screen (Indirect Farooq)Vis NEGATIVE Normal CBC With Differential 03/14/2021 [place] [address] [phone] White Blood Count 4.0 10 Normal 4.0-10.0 [...] 36.0-66.0 Lymph % 6.8 % Low 24.0-44.0 [place] % 9.3 % High 2.0-8.0 Eos % 1.0 % Normal 0.0-3.0 Baso % 0.8 % Normal 0.0-1.0 Immature Granulocyte % 0.3 % Normal 0-3.0 Nucleated Red Blood Cell % 0.0 % Normal 0-0 Neutrophils # 3.3 10 Normal 1.5-8.5 Lymph # 0.3 10 Low 1.5-5.0 [place] # 0.4 10 Normal 0.0-0.8 Eos # 0.0 10 Normal 0.0-0.5 Baso # 0.0 10 Normal 0.0-0.2 CBC With Differential 03/10/2021 [place] [address] [phone] White Blood Count 3.4 10 Low 4.0-10.0 [...] 36.0-66.0 Lymph % 7.6 % Low 24.0-44.0 [place] % 12.9 % High 2.0-8.0 Eos % 1.2 % Normal 0.0-3.0 Baso % 0.6 % Normal 0.0-1.0 Immature Granulocyte % 0.3 % Normal 0-3.0 Nucleated Red Blood Cell % 0.0 % Normal 0-0 Neutrophils # 2.6 10 Normal 1.5-8.5 Lymph # 0.3 10 Low 1.5-5.0 [place] # 0.4 10 Normal 0.0-0.8 Eos # 0.0 10 Normal 0.0-0.5 Baso # 0.0 10 Normal 0.0-0.2 Comprehensive Metabolic Profil 03/10/2021 [place] [address] [phone] Glucose, Fasting 166 mg/dL High 70-100 Blood [...] Binding Capacit 03/10/2021 [place] [address] [phone] Iron (Fe) 72 g/dL Normal 50-170 Total Iron Binding Capacity 352 g/dL Normal 250-450 Percent Saturation 20.5 % Normal 13.2-45.0 Laboratory test finding 03/10/2021 [place] [address] [phone] Carcinoembryonic Antigen < 0.5 NG/ML Normal <2.5 20 Ferritin 492 NG/ML High 8-252 Laboratory test finding 02/28/2021 Patient Service Center [place] 8707422 [phone] Packed Cells TRANSFUSED PRODU <SEE NOTE> 21 Type & Screen -Incl Blood Type,Tye,AB SC 02/28/2021 [place] [address] [phone] Blood Type O POSITIVE Normal AB Screen (Indirect Farooq)Vis NEGATIVE Normal CBC With Differential 02/27/2021 [place] [address] [phone] White Blood Count 6.0 10 Normal 4.0-10.0 [...] 36.0-66.0 Lymph % 4.7 % Low 24.0-44.0 [place] % 11.6 % High 2.0-8.0 Eos % 0.5 % Normal 0.0-3.0 Baso % 0.3 % Normal 0.0-1.0 Immature Granulocyte % 0.8 % Normal 0-3.0 Nucleated Red Blood Cell % 0.3 % High 0-0 Neutrophils # 4.9 10 Normal 1.5-8.5 Lymph # 0.3 10 Low 1.5-5.0 [place] # 0.7 10 Normal 0.0-0.8 Eos # 0.0 10 Normal 0.0-0.5 Baso # 0.0 10 Normal 0.0-0.2 Laboratory test finding 02/27/2021 [place] [address] [phone] Ferritin 1039 NG/ML High 8-252 Creatinine With GFR 02/27/2021 [place] [address] [phone] Creatinine For GFR 0.76 mg/dL Normal 0.55-1.30 Glomerular Filtration Rate > 60.0 Normal >32 2 2 Laboratory test finding 02/27/2021 [place] [address] [phone] Blood Urea Nitrogen 26 mg/dL High 7-18 Total Iron Binding Capacit 02/27/2021 [place] [address] [phone] Iron (Fe) 79 g/dL Normal 50-170 Total Iron Binding Capacity 384 g/dL Normal 250-450 Percent Saturation 20.6 % Normal 13.2-45.0 Laboratory test finding 02/10/2021 [place] [address] [phone] Packed Cells TRANSFUSED PRODU <SEE NOTE> 23 Type & Screen -Incl Blood Type,Tye,AB SC 02/10/2021 Patient Service [place] 9070542 [phone] Blood Type O POSITIVE Normal AB Screen (Indirect Farooq)Vis NEGATIVE Normal CBC With Differential 02/09/2021 Patient Service Ce nter [place] 8707479 [phone] White Blood Count 3.9 10 Low 4.0-10.0 [...] 36.0-66.0 Lymph % 7.2 % Low 24.0-44.0 [place] % 10.0 % High 2.0-8.0 Eos % 1.0 % Normal 0.0-3.0 Baso % 0.5 % Normal 0.0-1.0 Immature Granulocyte % 0.5 % Normal 0-3.0 Nucleated Red Blood Cell % 0.0 % Normal 0-0 Neutrophils # 3.1 10 Normal 1.5-8.5 Lymph # 0.3 10 Low 1.5-5.0 [place] # 0.4 10 Normal 0.0-0.8 Eos # 0.0 10 Normal 0.0-0.5 Baso # 0.0 10 Normal 0.0-0.2 CBC With Differential 01/27/2021 [place] [address] [phone] White Blood Count 4.2 10 Normal 4.0-10.0 [...] 36.0-66.0 Lymph % 13.6 % Low 24.0-44.0 [place] % 14.6 % High 2.0-8.0 Eos % 1.4 % Normal 0.0-3.0 Baso % 0.5 % Normal 0.0-1.0 Immature Granulocyte % 0.5 % Normal 0-3.0 Nucleated Red Blood Cell % 0.0 % Normal 0-0 Neutrophils # 2.9 10 Normal 1.5-8.5 Lymph # 0.6 10 Low 1.5-5.0 [place] # 0.6 10 Normal 0.0-0.8 Eos # 0.1 10 Normal 0.0-0.5 Baso # 0.0 10 Normal 0.0-0.2 Comprehensive Metabolic Profil 01/27/2021 [place], [place] [id number] [phone] Glucose, Fasting 59 mg/dL Low 70-100 Blood [...] Total Iron Binding Capacit 01/27/2021 Patient Servi [place], [place] [address]256850 [phone] Iron (Fe) 59 g/dL Normal 50-170 Total Iron Binding Capacity 397 g/dL Normal 250-450 Percent Saturation 14.9 % Normal 13.2-45.0 Laboratory test finding 01/27/2021 Patient Service [place] 9070564 [phone] Ferritin 39 NG/ML Normal 8-252 Carcinoembryonic Antigen 0.5 NG/ML Normal <2.5 25 Creatinine With GFR 01/20/2021 [place] [address] [phone] Creatinine For GFR 0.69 mg/dL Normal 0.55-1.30 Glomerular Filtration Rate > 60.0 Normal >32 2 6 Type & Screen -Incl Blood Type,Tye,AB SC 01/20/2021 [place] [address] [phone] Blood Type O POSITIVE Normal AB Screen (Indirect Farooq)Vis NEGATIVE Normal Laboratory test finding 01/20/2021 [place] [address] [phone] Blood Urea Nitrogen 21 mg/dL High 7-18 Complete Blood Count 01/20/2021 Patient Service [place] 0889001 [phone] White Blood Count 3.3 10 Low 4.0-10.0 [...] Coronavirus 2019 Nasopharygeal 01/16/2021 Patient S ervice [place] 9070533 [phone] Coronavirus 2019 Nasopharygeal ASSAY INFORMATIO <SEE N OTE> 27 Type & Screen -Incl Blood Type,Tye,AB SC 01/03/2021 [place] [address] [phone] Blood Type O POSITIVE Normal AB Screen (Indirect Farooq)Vis NEGATIVE Normal Laboratory test finding 01/03/2021 [place] [address] [phone] Packed Cells TRANSFUSED PRODU <SEE NOTE> 28 CBC With Differential 01/02/2021 [place] [address] [phone] White Blood Count 4.3 10 Normal 4.0-10.0 [...] 36.0-66.0 Lymph % 10.7 % Low 24.0-44.0 [place] % 13.1 % High 2.0-8.0 Eos % 0.7 % Normal 0.0-3.0 Baso % 0.5 % Normal 0.0-1.0 Immature Granulocyte % 0.5 % Normal 0-3.0 Nucleated Red Blood Cell % 0.0 % Normal 0-0 Neutrophils # 3.2 10 Normal 1.5-8.5 Lymph # 0.5 10 Low 1.5-5.0 [place] # 0.6 10 Normal 0.0-0.8 Eos # 0.0 10 Normal 0.0-0.5 Baso # 0.0 10 Normal 0.0-0.2 Comprehensive Metabolic Profil 01/02/2021 [place] [address] [phone] Glucose, Fasting 155 mg/dL High 70-100 Blood [...] Iron Binding Capacit 01/02/2021 [place] [address] [phone] Iron (Fe) 55 g/dL Normal 50-170 Total Iron Binding Capacity 398 g/dL Normal 250-450 Percent Saturation 13.8 % Normal 13.2-45.0 Laboratory test finding 01/02/2021 [place] [address] [phone] Thyroid Stimulating Hormone 1.660 uIU/ML Normal 0. 358-3.740 Free T4 0.87 ng/dL Normal 0.76-1.46 Ferritin 58 NG/ML Normal 8-252 Laboratory test finding 12/23/2020 [place] [address] [phone] iSTAT Troponin 0.01 NG/ML Normal 0.00-0.08 Laboratory test finding 12/23/2020 [place] [address] [phone] Lipase 73 U/L Normal 73-393 Lactic Acid Sepsis Protocol 0.8 mmol/L Normal 0.4-2.0 30 Liver Profile 12/23/2020 [place] [address] [phone] Ast/Sgot 13 U/L Normal 7-37 Alt/SGPT 14 U/L Normal 12-78 Alkaline Phosphatase 95 U/L Normal 45-117 Bilirubin,Total 0.9 mg/dL Normal 0.2-1.0 Bilirubin,Direct 0.3 mg/dL High 0.0-0.2 Total Protein 6.5 GM/DL Normal 6.4-8.2 Albumin 3.4 GM/DL Normal 3.2-5.2 Albumin/Globulin Ratio 1.1 Low 1.2-2.2 CBC With Differential 12/23/2020 Patient Service Ce nter [facility] [place] [address] [phone] White Blood Count 4.5 10 Normal 4.0-10.0 [...] 36.0-66.0 Lymph % 9.7 % Low 24.0-44.0 [place] % 11.9 % High 2.0-8.0 Eos % 0.9 % Normal 0.0-3.0 Baso % 0.4 % Normal 0.0-1.0 Immature Granulocyte % 0.4 % Normal 0-3.0 Nucleated Red Blood Cell % 0.0 % Normal 0-0 Neutrophils # 3.5 10 Normal 1.5-8.5 Lymph # 0.4 10 Low 1.5-5.0 [place] # 0.5 10 Normal 0.0-0.8 Eos # 0.0 10 Normal 0.0-0.5 Baso # 0.0 10 Normal 0.0-0.2 Istat Chem8+ Panel 12/23/2020 Patient Service Cent er [facility] [place] [address] [phone] iSTAT HCT 33.0 % Low 38.0-51.0 iSTAT Glucose 94 mg/dL Normal 70-105 iSTAT Sodium 138 mEq/L Normal 136-145 iSTAT Potassium 4.2 mEq/L Normal 3.5-5.1 iSTAT CA++ 5.0 mg/dL Normal 4.5-5.3 iSTAT Chloride 102 mEq/L Normal 98-109 iSTAT Co2 27.0 MM/L Normal 23.0-27.0 iSTAT BUN 20 mg/dL Normal 8-26 iSTAT Creatinine 0.7 mg/dL Normal 0.6-1.3 PT & Aptt 12/23/2020 Patient Service Cent er [facility] [place] [address] [phone] Prothrombin Time 13.3 seconds Normal 12.5-14.3 Inr 0.99 Normal 31 Partial Thromboplastin Time 29.5 seconds Normal 24.2-38.5 CBC With Differential 12/19/2020 [place] [address] [phone] White Blood Count 3.8 10 Low 4.0-10.0 [...] 36.0-66.0 Lymph % 11.7 % Low 24.0-44.0 [place] % 11.9 % High 2.0-8.0 Eos % 1.1 % Normal 0.0-3.0 Baso % 0.3 % Normal 0.0-1.0 Immature Granulocyte % 0.5 % Normal 0-3.0 Nucleated Red Blood Cell % 0.0 % Normal 0-0 Neutrophils # 2.8 10 Normal 1.5-8.5 Lymph # 0.4 10 Low 1.5-5.0 [place] # 0.5 10 Normal 0.0-0.8 Eos # 0.0 10 Normal 0.0-0.5 Baso # 0.0 10 Normal 0.0-0.2 CBC With Differential 12/05/2020 [place] [address] [phone] White Blood Count 3.4 10 Low 4.0-10.0 [...] 36.0-66.0 Lymph % 12.8 % Low 24.0-44.0 [place] % 13.7 % High 2.0-8.0 Eos % 1.2 % Normal 0.0-3.0 Baso % 0.6 % Normal 0.0-1.0 Immature Granulocyte % 0.3 % Normal 0-3.0 Nucleated Red Blood Cell % 0.0 % Normal 0-0 Neutrophils # 2.4 10 Normal 1.5-8.5 Lymph # 0.4 10 Low 1.5-5.0 [place] # 0.5 10 Normal 0.0-0.8 Eos # 0.0 10 Normal 0.0-0.5 Baso # 0.0 10 Normal 0.0-0.2 PT & Aptt 12/05/2020 [place] [address] [phone] Prothrombin Time 13.3 seconds Normal 12.5-14.3 Inr 0.99 Normal 32 Partial Thromboplastin Time 29.4 seconds Normal 24.2-38.5 Total Iron Binding Capacit 12/05/2020 [place] [address] [phone] Iron (Fe) 94 g/dL Normal 50-170 Total Iron Binding Capacity 350 g/dL Normal 250-450 Percent Saturation 26.9 % Normal 13.2-45.0 Laboratory test finding 12/05/2020 Patient Service [place] 9070583 [phone] Ferritin 108 NG/ML Normal 8-252 Complete Blood Count 11/25/2020 [place] [address] [phone] White Blood Count 4.4 10 Normal 4.0-10.0 [...] -Incl Blood Type,Tye,AB SC 11/25/2020 [place] [address] [phone] Blood Type O POSITIVE Normal AB Screen (Indirect Farooq)Vis NEGATIVE Normal Laboratory test finding 11/25/2020 [place] [address] [phone] NT-Pro BNP 1795 pg/mL High <450 Cardiac Marker Panel 11/25/2020 [place] [address] [phone] CPK Creatine Phosphokinase 60 U/L Normal 26-19 2 CK-MB Value Mass 1.3 NG/ML Normal <3.6 MB/CK Relative Index 2.17 Normal < Or =4 33 Troponin I < 0.02 NG/ML Normal < 0.10 34 Comprehensive Metabolic Profil 11/25/2020 [facility] [place] [address] [phone] Glucose, Fasting 110 mg/dL High 70-100 Blood [...] & Aptt 11/25/2020 Patient Service Cent er [facility] [place], [place] [address]90 [phone] Prothrombin Time 16.4 seconds High 12.5-14.3 Inr 1.29 Normal 36 Partial Thromboplastin Time 33.4 seconds Normal 24.2-38.5 CBC With Differential 11/07/2020 Patient Service Ce nter [facility] [place], [place] [address]17 [phone] White Blood Count 3.2 10 Low 4.0-10.0 [...] 36.0-66.0 Lymph % 10.5 % Low 24.0-44.0 [place] % 13.3 % High 2.0-8.0 Eos % 0.9 % Normal 0.0-3.0 Baso % 0.6 % Normal 0.0-1.0 Immature Granulocyte % 0.3 % Normal 0-3.0 Nucleated Red Blood Cell % 0.0 % Normal 0-0 Neutrophils # 2.4 10 Normal 1.5-8.5 Lymph # 0.3 10 Low 1.5-5.0 [place] # 0.4 10 Normal 0.0-0.8 Eos # 0.0 10 Normal 0.0-0.5 Baso # 0.0 10 Normal 0.0-0.2 Comprehensive Metabolic Profil 11/07/2020 [place] [address] [phone] Glucose, Fasting 142 mg/dL High 70-100 Blood [...] Iron Binding Capacit 11/07/2020 [place] [address] [phone] Iron (Fe) 43 g/dL Low 50-170 Total Iron Binding Capacity 302 g/dL Normal 250-450 Percent Saturation 14.2 % Normal 13.2-45.0 Laboratory test finding 11/07/2020 [place] [address] [phone] Ferritin 207 NG/ML Normal 8-252 1 THERAPUTIC [...] passenger travel. Testing and International Air Travel, cdc.gov/coronavirus/2019-ncov/travelers/jqglzox-hja-vuhiru.html 09/01/2020 NOTE: The COVID-19 assay is under Emergency Use Authorization (EUA) by the U.S. Food and Drug Administration. [facility] are designated as high complexity laboratories by [...] Little GFR Left ESRD GFR <15 on APPLICATION SPEC 6 THE CEA ASSAY IS PERFORMED O N THE [employer] BY CHEMILUMINESCENCE AND SHOULD NOT BE [...] Little GFR Left ESRD GFR <15 on APPLICATION SPEC 9 Negative results do not prec lude [...] pathogens. DISCLAIMER: Testing was performed using the [employer] SARS-CoV-2 test. This test was developed and its performance characteristics determined by [employer]. This test has not been FDA cleared [...] Little GFR Left ESRD GFR <15 on APPLICATION SPEC 20 THE CEA ASSAY IS PERFORMED O [...] Little GFR Left ESRD GFR <15 on APPLICATION SPEC 23 TRANSFUSED PRODUCT: PACKED C ELLS COUNT: 2 24 Units are mL/min/1.73 m2 Chronic Kidney Disease Staging per NKF: Stage I & II GFR >=60 Normal to Mildly Decreased Stage III GFR 30-59 Moderately Decreased Stage IV GFR 15-29 Severely Decreased Stage V GFR <15 Very Little GFR Left ESRD GFR <15 on APPLICATION SPEC 25 THE CEA ASSAY IS PERFORMED O [...] Little GFR Left ESRD GFR <15 on APPLICATION SPEC 27 ASSAY INFORMATION: Real Time RT-PCR NOTE: The COVID-19 assay has been cleared by the U.S. Food and Drug Administration under the Emergency Use Authorization (EUA). [facility] are designated as high complexity laboratories by [...] Little GFR Left ESRD GFR <15 on APPLICATION SPEC 30 Y/N query for Sepsis Lactate Rule: [...] 34 Troponin I Reference Interva l for [employer] LOCI: 99th Percentile= 0.00-0.045 ng/ml Risk Stratification: [...] Little GFR Left ESRD GFR <15 on APPLICATION SPEC 36 THERAPUTIC HUMAN INR VALUES INDICATIONS NORMAL [...] Little GFR Left ESRD GFR <15 on APPLICATION SPEC Procedures Date Code Description Status 03/28/2021 [id number] [place] [facility] W/I 7 Days Of DC, Comm W/I 2 Dys Completed 03/23/2021 [id number] Office/Outpatient Established Mo d MDM 30-39 Min Completed 03/23/2021 [id number] Diabetic Foot Exam Completed 01/25/2021 81991 [place] W/I 7 Days Of DC, Comm W/I 2 Dys Completed 12/27/2020 [id number] Office/Outpatient Established Mo d MDM 30-39 Min Completed 12/19/2020 [id number] Office/Outpatient Established Mo d MDM 30-39 Min Completed 12/02/2020 82019 [place] W/I 7 Days Of DC, [...] Office Visit 12/19/2020 2:15p Main Office PleskachStevey, [employer] WORK[employer] E11.6 9 Type 2 diabetes mellitus with other specified complication E78.2 Mixed hyperlipidemia I10 Essential (primary) hyperten yara 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 C18.9 Malignant neoplasm of colon, unspecified I48.91 Unspecified atrial fibrillat ion Office Visit 12/02/2020 10:30a Main Office Pleskach, Nadiya, [employer] WORK[employer] D64.9 Anemia, unspecified E11.69 Type 2 diabetes mellitus wit h other specified complication E78.2 Mixed hyperlipidemia I10 Essential (primary) hyperten yara 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 C18.9 Malignant neoplasm of colon, unspecified I48.91 Unspecified atrial fibrillat ion Assessments Date Code Description Provider 03/28/2021 D64.9 Anemia, unspecified Pleskach, Mo lly, [employer] 03/28/2021 K29.61 Other gastritis with bleeding Pl eskaSteve wilsony, GARAGE WORKER 03/23/2021 E11.69 Type 2 diabetes mellitus with ot her specified complication Pleskach Nadiya, [employer] WORKER 03/23/2021 C18.9 Malignant neoplasm of colon, uns pecified Pleskach Nadiya, G[employer]AGE WORKER 03/23/2021 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 Nadiya Bryan , [employer] WORK[employer] 03/23/2021 E78.2 Mixed hyperlipidemia Chayo Bryan, [employer] WORKER 03/23/2021 I10 Essential (primary) hypertension Pleskach, Nadiya, G[employer]AGE WORKER 03/23/2021 I48.91 Unspecified atrial fibrillation Pleskach Nadiya, [employer] WORKER 03/23/2021 D64.9 Anemia, unspecified Pleskach, Mo lly, G[employer] WORKER 01/25/2021 D64.9 Anemia, unspecified Pleskach, Mo lly, G[employer] WORKER 01/25/2021 K29.61 Other gastritis with bleeding Pl eskachStevey, GARAGE WORKER 12/27/2020 E11.69 Type 2 diabetes mellitus with ot her specified complication Anitha Gamez M.D. 12/27/2020 C18.9 Malignant neoplasm of colon, uns pecified Anitha Gamez M.D. 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 12/27/2020 D64.9 Anemia, unspecified Angela Gamez M.D. 12/19/2020 E11.69 Type 2 diabetes mellitus with ot her specified complication Pleskach, Nadiya, [employer] WORKER 12/19/2020 E78.2 Mixed hyperlipidemia Pleskach, M jarocho, [employer] WORKER 12/19/2020 I10 Essential (primary) hypertension Pleskach, Nadiya, GARAGE WORKER 12/19/2020 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 Pleskach, Nadyia , [employer] WORKER 12/19/2020 C18.9 Malignant neoplasm of colon, uns pecified Pleskach, Nadiya, G[employer]AGE WORKER 12/19/2020 I48.91 Unspecified atrial fibrillation Pleskach, Nadiya, G[employer] WORKER 12/02/2020 D64.9 Anemia, unspecified Pleskach, Mo lly, G[employer] WORKER 12/02/2020 E11.69 Type 2 diabetes mellitus with ot her specified complication Pleskach, Nadiya, G[employer] WORKER 12/02/2020 E78.2 Mixed hyperlipidemia Pleskach, M jarocho, G[employer]AGE WORKER 12/02/2020 I10 Essential (primary) hypertension Pleskach, Nadiya, GARAGE WORKER 12/02/2020 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 Pleskach, Nadiya , [employer] WORKER 12/02/2020 C18.9 Malignant neoplasm of colon, uns pecified Pleskach, Nadiya, [employer] WORKER 12/02/2020 I48.91 Unspecified atrial fibrillation Pleskach, Nadiya, GARAGE WORKER Plan of Treatment Future Appointment(s):* 06/22/2021 3:30 pm - Nadiya Bryan, GARAGE WORKER at Main Office 03/28/2021 - PleskachStevey, GARAGE WORKER* D64.9 Anemia, unspecified* Comments:* following with hematology, blood transfusion prn * K29.61 Other gastritis with bleeding* Comments:* scheduled for EGD 10/1 Functional Status Functional Condition Comment Date Status [...]
--- OUTSIDE RECORDS SUMMARY | 2021-05-23 16:56 | CCD | Continuity of Care Document ---
Author Author Meron BRYAN PULVERIZER Organization Unknown Address [address] [place] [address] Phone [phone] Care Team Providers Care Winding Inspector And Tester Name Role Phone [facility] AUTM [phone] Niels Decker M.D. AUTM [phone] [facility] AUTM Jeff Cramer AUTM [phone] Problems Active Problems Provider Date Type 2 [...] 236units C18.9 Nadiya Bryan FNP 06/16/2020 Z93.2 [place] Remover Wipes Misc use 3-4 wipes every 4 days and as needed when changing ostomy 2Box Z93.2 Nadiya Bryan FNP 06/16/2020 C18.9 Efren Adapt Ceraing change every 4-5 days and as needed ref #[id number] 20units Nadiya Bryan FNP 05/05/2020 Alsen 2 Piece Ostomy Skin Barrier ref # [id number] márquez ge every 4-5 days and as needed 20units C18.9 Nadiya Bryan FNP 04/14/2020 Z93.2 Al[place] 2 Piece Drainable Ostomy Pouch ref # [id number] c hange every 4-5 days and as [...] CPT Code Status Date Vaccine Lot # [id number] Refused 04/17/2016 Pneumococcal Vaccine 71003 Refused 04/17/2016 Prevnar 13 29799 Refused 04/17/2016 Influenza Vaccination Vital Signs Date Vital Result Comment 03/28/2021 11:51am BP Systolic 113 mmHg BP Diastolic 83 mmHg Heart Rate 127 /min Body Temperature 98.0 F Respiratory Rate 18 /min Height 61.5 inches 5'1.50" Weight 114.38 lb O2 % BldC Oximetry 100 % [place] Body Weight 105 lb BMI (Body Mass Index) 21.3 kg/m2 03/23/2021 3:47pm BP Systolic 110 mmHg BP Diastolic 62 mmHg Heart Rate 64 /min Body Temperature 98.7 F Respiratory Rate 16 /min Height 61.5 inches 5'1.50" Weight 116.38 lb O2 % BldC Oximetry 99 % [place] Body Weight 105 lb BMI (Body Mass Index) 21.6 kg/m2 Results Test Acquired Date Facility Test Result H/L Range Note Prothrombin Time/Inr 05/05/2021 [place] [address] [phone] Prothrombin Time 14.0 seconds Normal 12.7-14.5 Inr 1.04 Normal 1 Laboratory test finding 05/05/2021 [place] [address] [phone] Partial Thromboplastin Time 24.9 seconds Low 25 .9-37.0 Platelet Function Analysis 05/05/2021 [place] [address] [phone] Collagen Epinephrine TNP seconds Normal 74-162 2 Laboratory test finding 05/05/2021 [place] [address] [phone] LDH Lactate Dehydrogenase 128 U/L Normal 84-246 CBC With Differential 05/05/2021 [place] [address] [phone] White Blood Count 5.1 10 Normal 4.0-10.0 [...] 36.0-66.0 Lymph % 6.3 % Low 24.0-44.0 [place] % 11.5 % High 2.0-8.0 Eos % 0.8 % Normal 0.0-3.0 Baso % 0.4 % Normal 0.0-1.0 Immature Granulocyte % 0.6 % Normal 0-3.0 Nucleated Red Blood Cell % 0.0 % Normal 0-0 Neutrophils # 4.1 10 Normal 1.5-8.5 Lymph # 0.3 10 Low 1.5-5.0 [place] # 0.6 10 Normal 0.0-0.8 Eos # 0.0 10 Normal 0.0-0.5 Baso # 0.0 10 Normal 0.0-0.2 Type & Screen -Incl Blood Type,Tye,AB SC 05/05/2021 [place] [address] [phone] Blood Type O POSITIVE Normal AB Screen (Indirect Farooq)Vis NEGATIVE Normal Laboratory test finding 05/05/2021 [place] [address] [phone] Packed Cells TRANSFUSED PRODU <SEE NOTE> 3 Retic (Reticulocyte Count) 05/05/2021 [place] [address] [phone] Reticulocyte % 5.9 % High 0.5-1.5 Reticulocyte # 119.8 10 High 17-77 Retic Hemoglobin Equivalent 30.7 pg Normal 24-36 CBC With Differential 04/27/2021 [place] [address] [phone] White Blood Count 4.2 10 Normal 4.0-10.0 [...] 36.0-66.0 Lymph % 8.1 % Low 24.0-44.0 [place] % 12.8 % High 2.0-8.0 Eos % 1.0 % Normal 0.0-3.0 Baso % 0.2 % Normal 0.0-1.0 Immature Granulocyte % 0.5 % Normal 0-3.0 Nucleated Red Blood Cell % 0.0 % Normal 0-0 Neutrophils # 3.3 10 Normal 1.5-8.5 Lymph # 0.3 10 Low 1.5-5.0 [place] # 0.5 10 Normal 0.0-0.8 Eos # 0.0 10 Normal 0.0-0.5 Baso # 0.0 10 Normal 0.0-0.2 CBC With Differential 04/20/2021 Patient Service [place] [id number] [phone] White Blood Count 3.9 10 Low 4.0-10.0 [...] 36.0-66.0 Lymph % 8.8 % Low 24.0-44.0 [place] % 11.9 % High 2.0-8.0 Eos % 1.0 % Normal 0.0-3.0 Baso % 0.5 % Normal 0.0-1.0 Immature Granulocyte % 0.8 % Normal 0-3.0 Nucleated Red Blood Cell % 0.0 % Normal 0-0 Neutrophils # 3.0 10 Normal 1.5-8.5 Lymph # 0.3 10 Low 1.5-5.0 [place] # 0.5 10 Normal 0.0-0.8 Eos # 0.0 10 Normal 0.0-0.5 Baso # 0.0 10 Normal 0.0-0.2 CBC With Differential 04/12/2021 [place] [address] [phone] White Blood Count 4.6 10 Normal 4.0-10.0 [...] 36.0-66.0 Lymph % 6.6 % Low 24.0-44.0 [place] % 9.4 % High 2.0-8.0 Eos % 0.9 % Normal 0.0-3.0 Baso % 0.2 % Normal 0.0-1.0 Immature Granulocyte % 0.4 % Normal 0-3.0 Nucleated Red Blood Cell % 0.0 % Normal 0-0 Neutrophils # 3.8 10 Normal 1.5-8.5 Lymph # 0.3 10 Low 1.5-5.0 [place] # 0.4 10 Normal 0.0-0.8 Eos # 0.0 10 Normal 0.0-0.5 Baso # 0.0 10 Normal 0.0-0.2 Coronavirus 2019 Nasopharygeal 04/10/20[place] [address] [phone] Coronavirus 2019 Nasopharygeal ASSAY INFORMATIO <SEE N OTE> 4 Comprehensive Metabolic Profil 04/07/2021 Patient S ervice [place], [place] [id number] [phone] Glucose, Fasting 184 mg/dL High 70-100 Blood [...] Binding Capacit 04/07/2021 [place] [address] [phone] Iron (Fe) 48 g/dL Low 50-170 Total Iron Binding Capacity 353 g/dL Normal 250-450 Percent Saturation 13.6 % Normal 13.2-45.0 Laboratory test finding 04/07/2021 [place] [address] [phone] Carcinoembryonic Antigen < 0.5 NG/ML Normal <2.5 6 Ferritin 66 NG/ML Normal 8-252 CBC With Differential 04/07/2021 [place] [address] [phone] White Blood Count 3.4 10 Low 4.0-10.0 [...] 36.0-66.0 Lymph % 8.5 % Low 24.0-44.0 [place] % 10.9 % High 2.0-8.0 Eos % 0.9 % Normal 0.0-3.0 Baso % 0.6 % Normal 0.0-1.0 Immature Granulocyte % 0.6 % Normal 0-3.0 Nucleated Red Blood Cell % 0.0 % Normal 0-0 Neutrophils # 2.7 10 Normal 1.5-8.5 Lymph # 0.3 10 Low 1.5-5.0 [place] # 0.4 10 Normal 0.0-0.8 Eos # 0.0 10 Normal 0.0-0.5 Baso # 0.0 10 Normal 0.0-0.2 Laboratory test finding 04/07/2021 Patient Service Center [place], [place] [address]85620 [phone] Packed Cells TRANSFUSED PRODU <SEE NOTE> 7 Type & Screen -Incl Blood Type,Tye,AB SC 04/07/2021 [place] [address] [phone] Blood Type O POSITIVE Normal AB Screen (Indirect Farooq)Vis NEGATIVE Normal Comprehensive Metabolic Profil 03/24/2021 [facility] [place], [place] [address] [phone] Glucose, Fasting 96 mg/dL Normal 70-100 Blood [...] CBC With Differential 03/24/2021 Patient Service Ce [facility] [place] [address] [phone] White Blood Count 4.6 10 Normal 4.0-10.0 [...] 36.0-66.0 Lymph % 6.2 % Low 24.0-44.0 [place] % 11.4 % High 2.0-8.0 Eos % 0.4 % Normal 0.0-3.0 Baso % 0.4 % Normal 0.0-1.0 Immature Granulocyte % 0.4 % Normal 0-3.0 Nucleated Red Blood Cell % 0.7 % High 0-0 Neutrophils # 3.7 10 Normal 1.5-8.5 Lymph # 0.3 10 Low 1.5-5.0 [place] # 0.5 10 Normal 0.0-0.8 Eos # 0.0 10 Normal 0.0-0.5 Baso # 0.0 10 Normal 0.0-0.2 Influenza A/B RSV Covid Amp 03/24/2021 [place] [address] [phone] Influenza A Amplification NEGATIVE Normal Negati ve 9 Influenza B Amplification NEGATIVE Normal Negative 10 RSV Amplification NEGATIVE Normal Negative 11 Sars Covid-19 Amplification NEGATIVE Normal Negative 12 Laboratory test finding 03/24/2021 [facility] [place] [address] [phone] Packed Cells TRANSFUSED PRODU <SEE NOTE> 13 Metabolic Panel (14), Comprehensive 03/17/2021 [facility] [address] [place] [address] [phone] Calcium 9.5 mg/dL 8.7-10.3 Glucose 81 mg/dL [...] IU/L 0-32 Lipid Panel 03/17/2021 [facility] [address] [place] [address] [phone] Cholesterol, Total 123 mg/dL 100-199 Triglycerides 141 mg/dL 0-149 HDL Cholesterol 37 mg/dL Low >39 VLDL Cholesterol Mark 25 mg/dL 5-40 LDL Chol Calc (Nih) 61 mg/dL 0-99 Comment: TNP Hemoglobin A1c 03/17/2021 [facility] [address] [place] [address] [phone] Hemoglobin A1c 4.8 % 4.8-5.6 16 Albumin/Creatinine Ratio, Random Urine 03/17/2021 [facility] [address] [place] [address] [phone] Creatinine, Urine 120.2 mg/dL Not Estab. Albumin, Urine 20.1 ug/mL Not Estab. Alb/Creat Ratio 17 mg/gcreat 0-29 17 Laboratory test finding 03/14/2021 [place] [address] [phone] Packed Cells TRANSFUSED PRODU <SEE NOTE> 18 Type & Screen -Incl Blood Type,Tye,AB SC 03/14/2021 [place] [address] [phone] Blood Type O POSITIVE Normal AB Screen (Indirect Farooq)Vis NEGATIVE Normal CBC With Differential 03/14/2021 [place] [address] [phone] White Blood Count 4.0 10 Normal 4.0-10.0 [...] 36.0-66.0 Lymph % 6.8 % Low 24.0-44.0 [place] % 9.3 % High 2.0-8.0 Eos % 1.0 % Normal 0.0-3.0 Baso % 0.8 % Normal 0.0-1.0 Immature Granulocyte % 0.3 % Normal 0-3.0 Nucleated Red Blood Cell % 0.0 % Normal 0-0 Neutrophils # 3.3 10 Normal 1.5-8.5 Lymph # 0.3 10 Low 1.5-5.0 [place] # 0.4 10 Normal 0.0-0.8 Eos # 0.0 10 Normal 0.0-0.5 Baso # 0.0 10 Normal 0.0-0.2 CBC With Differential 03/10/2021 [place] [address] [phone] White Blood Count 3.4 10 Low 4.0-10.0 [...] 36.0-66.0 Lymph % 7.6 % Low 24.0-44.0 [place] % 12.9 % High 2.0-8.0 Eos % 1.2 % Normal 0.0-3.0 Baso % 0.6 % Normal 0.0-1.0 Immature Granulocyte % 0.3 % Normal 0-3.0 Nucleated Red Blood Cell % 0.0 % Normal 0-0 Neutrophils # 2.6 10 Normal 1.5-8.5 Lymph # 0.3 10 Low 1.5-5.0 [place] # 0.4 10 Normal 0.0-0.8 Eos # 0.0 10 Normal 0.0-0.5 Baso # 0.0 10 Normal 0.0-0.2 Comprehensive Metabolic Profil 03/10/2021 Patient [place], [place] [address]774 [phone] Glucose, Fasting 166 mg/dL High 70-100 Blood [...] Binding Capacit 03/10/2021 [place] [address] [phone] Iron (Fe) 72 g/dL Normal 50-170 Total Iron Binding Capacity 352 g/dL Normal 250-450 Percent Saturation 20.5 % Normal 13.2-45.0 Laboratory test finding 03/10/2021 [place] [address] [phone] Carcinoembryonic Antigen < 0.5 NG/ML Normal <2.5 20 Ferritin 492 NG/ML High 8-252 Laboratory test finding 02/28/2021 Patient Service Center [place] 3610893 [phone] Packed Cells TRANSFUSED PRODU <SEE NOTE> 21 Type & Screen -Incl Blood Type,Tye,AB SC 02/28/2021 [place] [address] [phone] Blood Type O POSITIVE Normal AB Screen (Indirect Farooq)Vis NEGATIVE Normal CBC With Differential 02/27/2021 [place] [address] [phone] White Blood Count 6.0 10 Normal 4.0-10.0 [...] 36.0-66.0 Lymph % 4.7 % Low 24.0-44.0 [place] % 11.6 % High 2.0-8.0 Eos % 0.5 % Normal 0.0-3.0 Baso % 0.3 % Normal 0.0-1.0 Immature Granulocyte % 0.8 % Normal 0-3.0 Nucleated Red Blood Cell % 0.3 % High 0-0 Neutrophils # 4.9 10 Normal 1.5-8.5 Lymph # 0.3 10 Low 1.5-5.0 [place] # 0.7 10 Normal 0.0-0.8 Eos # 0.0 10 Normal 0.0-0.5 Baso # 0.0 10 Normal 0.0-0.2 Laboratory test finding 02/27/2021 [place] [address] [phone] Ferritin 1039 NG/ML High 8-252 Creatinine With GFR 02/27/2021 [place] [address] [phone] Creatinine For GFR 0.76 mg/dL Normal 0.55-1.30 Glomerular Filtration Rate > 60.0 Normal >32 2 2 Laboratory test finding 02/27/2021 [place] [address] [phone] Blood Urea Nitrogen 26 mg/dL High 7-18 Total Iron Binding Capacit 02/27/2021 [place] [address] [phone] Iron (Fe) 79 g/dL Normal 50-170 Total Iron Binding Capacity 384 g/dL Normal 250-450 Percent Saturation 20.6 % Normal 13.2-45.0 Laboratory test finding 02/10/2021 [place] [address] [phone] Packed Cells TRANSFUSED PRODU <SEE NOTE> 23 Type & Screen -Incl Blood Type,Tye,AB SC 02/10/2021 Patient Service [place] 8674283 [phone] Blood Type O POSITIVE Normal AB Screen (Indirect Farooq)Vis NEGATIVE Normal CBC With Differential 02/09/2021 Patient Service Ce nter [place] 3610862 [phone] White Blood Count 3.9 10 Low 4.0-10.0 [...] 36.0-66.0 Lymph % 7.2 % Low 24.0-44.0 [place] % 10.0 % High 2.0-8.0 Eos % 1.0 % Normal 0.0-3.0 Baso % 0.5 % Normal 0.0-1.0 Immature Granulocyte % 0.5 % Normal 0-3.0 Nucleated Red Blood Cell % 0.0 % Normal 0-0 Neutrophils # 3.1 10 Normal 1.5-8.5 Lymph # 0.3 10 Low 1.5-5.0 [place] # 0.4 10 Normal 0.0-0.8 Eos # 0.0 10 Normal 0.0-0.5 Baso # 0.0 10 Normal 0.0-0.2 CBC With Differential 01/27/2021 [place] [address] [phone] White Blood Count 4.2 10 Normal 4.0-10.0 [...] 36.0-66.0 Lymph % 13.6 % Low 24.0-44.0 [place] % 14.6 % High 2.0-8.0 Eos % 1.4 % Normal 0.0-3.0 Baso % 0.5 % Normal 0.0-1.0 Immature Granulocyte % 0.5 % Normal 0-3.0 Nucleated Red Blood Cell % 0.0 % Normal 0-0 Neutrophils # 2.9 10 Normal 1.5-8.5 Lymph # 0.6 10 Low 1.5-5.0 [place] # 0.6 10 Normal 0.0-0.8 Eos # 0.1 10 Normal 0.0-0.5 Baso # 0.0 10 Normal 0.0-0.2 Comprehensive Metabolic Profil 01/27/2021 Patient [place], [place] [address]107017 [phone] Glucose, Fasting 59 mg/dL Low 70-100 Blood [...] Total Iron Binding Capacit 01/27/2021 Patient Servi [place], [place] 577[address]58 [phone] Iron (Fe) 59 g/dL Normal 50-170 Total Iron Binding Capacity 397 g/dL Normal 250-450 Percent Saturation 14.9 % Normal 13.2-45.0 Laboratory test finding 01/27/2021 Patient Service [place] 8674266 [phone] Ferritin 39 NG/ML Normal 8-252 Carcinoembryonic Antigen 0.5 NG/ML Normal <2.5 25 Creatinine With GFR 01/20/2021 [place] [address] [phone] Creatinine For GFR 0.69 mg/dL Normal 0.55-1.30 Glomerular Filtration Rate > 60.0 Normal >32 2 6 Type & Screen -Incl Blood Type,Tye,AB SC 01/20/2021 [place] [address] [phone] Blood Type O POSITIVE Normal AB Screen (Indirect Farooq)Vis NEGATIVE Normal Laboratory test finding 01/20/2021 [place] [address] [phone] Blood Urea Nitrogen 21 mg/dL High 7-18 Complete Blood Count 01/20/2021 Patient Service [place] 1310399 [phone] White Blood Count 3.3 10 Low 4.0-10.0 [...] Coronavirus 2019 Nasopharygeal 01/16/2021 Patient S ervice [place] 8674230 [phone] Coronavirus 2019 Nasopharygeal ASSAY INFORMATIO <SEE N OTE> 27 Type & Screen -Incl Blood Type,Tye,AB SC 01/03/2021 [place] [address] [phone] Blood Type O POSITIVE Normal AB Screen (Indirect Farooq)Vis NEGATIVE Normal Laboratory test finding 01/03/2021 [place] [address] [phone] Packed Cells TRANSFUSED PRODU <SEE NOTE> 28 CBC With Differential 01/02/2021 [place] [address] [phone] White Blood Count 4.3 10 Normal 4.0-10.0 [...] 36.0-66.0 Lymph % 10.7 % Low 24.0-44.0 [place] % 13.1 % High 2.0-8.0 Eos % 0.7 % Normal 0.0-3.0 Baso % 0.5 % Normal 0.0-1.0 Immature Granulocyte % 0.5 % Normal 0-3.0 Nucleated Red Blood Cell % 0.0 % Normal 0-0 Neutrophils # 3.2 10 Normal 1.5-8.5 Lymph # 0.5 10 Low 1.5-5.0 [place] # 0.6 10 Normal 0.0-0.8 Eos # 0.0 10 Normal 0.0-0.5 Baso # 0.0 10 Normal 0.0-0.2 Comprehensive Metabolic Profil 01/02/2021 [place] [address] [phone] Glucose, Fasting 155 mg/dL High 70-100 Blood [...] Iron Binding Capacit 01/02/2021 [place] [address] [phone] Iron (Fe) 55 g/dL Normal 50-170 Total Iron Binding Capacity 398 g/dL Normal 250-450 Percent Saturation 13.8 % Normal 13.2-45.0 Laboratory test finding 01/02/2021 [place] [address] [phone] Thyroid Stimulating Hormone 1.660 uIU/ML Normal 0. 358-3.740 Free T4 0.87 ng/dL Normal 0.76-1.46 Ferritin 58 NG/ML Normal 8-252 Laboratory test finding 12/23/2020 [place] [address] [phone] iSTAT Troponin 0.01 NG/ML Normal 0.00-0.08 Laboratory test finding 12/23/2020 [place] [address] [phone] Lipase 73 U/L Normal 73-393 Lactic Acid Sepsis Protocol 0.8 mmol/L Normal 0.4-2.0 30 Liver Profile 12/23/2020 [place] [address] [phone] Ast/Sgot 13 U/L Normal 7-37 Alt/SGPT 14 U/L Normal 12-78 Alkaline Phosphatase 95 U/L Normal 45-117 Bilirubin,Total 0.9 mg/dL Normal 0.2-1.0 Bilirubin,Direct 0.3 mg/dL High 0.0-0.2 Total Protein 6.5 GM/DL Normal 6.4-8.2 Albumin 3.4 GM/DL Normal 3.2-5.2 Albumin/Globulin Ratio 1.1 Low 1.2-2.2 CBC With Differential 12/23/2020 Patient Service Ce nter [facility] [place] [address] [phone] White Blood Count 4.5 10 Normal 4.0-10.0 [...] 36.0-66.0 Lymph % 9.7 % Low 24.0-44.0 [place] % 11.9 % High 2.0-8.0 Eos % 0.9 % Normal 0.0-3.0 Baso % 0.4 % Normal 0.0-1.0 Immature Granulocyte % 0.4 % Normal 0-3.0 Nucleated Red Blood Cell % 0.0 % Normal 0-0 Neutrophils # 3.5 10 Normal 1.5-8.5 Lymph # 0.4 10 Low 1.5-5.0 [place] # 0.5 10 Normal 0.0-0.8 Eos # 0.0 10 Normal 0.0-0.5 Baso # 0.0 10 Normal 0.0-0.2 Istat Chem8+ Panel 12/23/2020 Patient Service Cent er [facility] [place] [address] [phone] iSTAT HCT 33.0 % Low 38.0-51.0 iSTAT Glucose 94 mg/dL Normal 70-105 iSTAT Sodium 138 mEq/L Normal 136-145 iSTAT Potassium 4.2 mEq/L Normal 3.5-5.1 iSTAT CA++ 5.0 mg/dL Normal 4.5-5.3 iSTAT Chloride 102 mEq/L Normal 98-109 iSTAT Co2 27.0 MM/L Normal 23.0-27.0 iSTAT BUN 20 mg/dL Normal 8-26 iSTAT Creatinine 0.7 mg/dL Normal 0.6-1.3 PT & Aptt 12/23/2020 Patient Service Cent er [facility] [place] [address] [phone] Prothrombin Time 13.3 seconds Normal 12.5-14.3 Inr 0.99 Normal 31 Partial Thromboplastin Time 29.5 seconds Normal 24.2-38.5 CBC With Differential 12/19/2020 [place] [address] [phone] White Blood Count 3.8 10 Low 4.0-10.0 [...] 36.0-66.0 Lymph % 11.7 % Low 24.0-44.0 [place] % 11.9 % High 2.0-8.0 Eos % 1.1 % Normal 0.0-3.0 Baso % 0.3 % Normal 0.0-1.0 Immature Granulocyte % 0.5 % Normal 0-3.0 Nucleated Red Blood Cell % 0.0 % Normal 0-0 Neutrophils # 2.8 10 Normal 1.5-8.5 Lymph # 0.4 10 Low 1.5-5.0 [place] # 0.5 10 Normal 0.0-0.8 Eos # 0.0 10 Normal 0.0-0.5 Baso # 0.0 10 Normal 0.0-0.2 CBC With Differential 12/05/2020 [place] [address] [phone] White Blood Count 3.4 10 Low 4.0-10.0 [...] 36.0-66.0 Lymph % 12.8 % Low 24.0-44.0 [place] % 13.7 % High 2.0-8.0 Eos % 1.2 % Normal 0.0-3.0 Baso % 0.6 % Normal 0.0-1.0 Immature Granulocyte % 0.3 % Normal 0-3.0 Nucleated Red Blood Cell % 0.0 % Normal 0-0 Neutrophils # 2.4 10 Normal 1.5-8.5 Lymph # 0.4 10 Low 1.5-5.0 [place] # 0.5 10 Normal 0.0-0.8 Eos # 0.0 10 Normal 0.0-0.5 Baso # 0.0 10 Normal 0.0-0.2 PT & Aptt 12/05/2020 [place] [address] [phone] Prothrombin Time 13.3 seconds Normal 12.5-14.3 Inr 0.99 Normal 32 Partial Thromboplastin Time 29.4 seconds Normal 24.2-38.5 Total Iron Binding Capacit 12/05/2020 [place] [address] [phone] Iron (Fe) 94 g/dL Normal 50-170 Total Iron Binding Capacity 350 g/dL Normal 250-450 Percent Saturation 26.9 % Normal 13.2-45.0 Laboratory test finding 12/05/2020 Patient Service [place] 8674259 [phone] Ferritin 108 NG/ML Normal 8-252 Complete Blood Count 11/25/2020 [place] [address] [phone] White Blood Count 4.4 10 Normal 4.0-10.0 [...] -Incl Blood Type,Tye,AB SC 11/25/2020 [place] [address] [phone] Blood Type O POSITIVE Normal AB Screen (Indirect Farooq)Vis NEGATIVE Normal Laboratory test finding 11/25/2020 [place] [address] [phone] NT-Pro BNP 1795 pg/mL High <450 Cardiac Marker Panel 11/25/2020 [place] [address] [phone] CPK Creatine Phosphokinase 60 U/L Normal 26-19 2 CK-MB Value Mass 1.3 NG/ML Normal <3.6 MB/CK Relative Index 2.17 Normal < Or =4 33 Troponin I < 0.02 NG/ML Normal < 0.10 34 Comprehensive Metabolic Profil 11/25/[address] [facility] [place] [address] [phone] Glucose, Fasting 110 mg/dL High 70-100 Blood [...] & Aptt 11/25/2020 Patient Service [facility] er [facility] [place], [place] [address] [phone] Prothrombin Time 16.4 seconds High 12.5-14.3 Inr 1.29 Normal 36 Partial Thromboplastin Time 33.4 seconds Normal 24.2-38.5 CBC With Differential 11/07/2020 Patient Service Ce nter [facility] [place], [place] [address] [phone] White Blood Count 3.2 10 Low 4.0-10.0 [...] 36.0-66.0 Lymph % 10.5 % Low 24.0-44.0 [place] % 13.3 % High 2.0-8.0 Eos % 0.9 % Normal 0.0-3.0 Baso % 0.6 % Normal 0.0-1.0 Immature Granulocyte % 0.3 % Normal 0-3.0 Nucleated Red Blood Cell % 0.0 % Normal 0-0 Neutrophils # 2.4 10 Normal 1.5-8.5 Lymph # 0.3 10 Low 1.5-5.0 [place] # 0.4 10 Normal 0.0-0.8 Eos # 0.0 10 Normal 0.0-0.5 Baso # 0.0 10 Normal 0.0-0.2 Comprehensive Metabolic Profil 11/07/2020 [place] [address] [phone] Glucose, Fasting 142 mg/dL High 70-100 Blood [...] Iron Binding Capacit 11/07/2020 [place] [address] [phone] Iron (Fe) 43 g/dL Low 50-170 Total Iron Binding Capacity 302 g/dL Normal 250-450 Percent Saturation 14.2 % Normal 13.2-45.0 Laboratory test finding 11/07/2020 [place] [address] [phone] Ferritin 207 NG/ML Normal 8-252 1 THERAPUTIC [...] passenger travel. Testing and International Air Travel, cdc.gov/coronavirus/2019-ncov/travelers/povkjri-txj-obrqvc.html 09/01/2020 NOTE: The COVID-19 assay is under Emergency Use Authorization (EUA) by the U.S. Food and Drug Administration. [facility] and [facility] are designated as high complexity laboratories by [...] Little GFR Left ESRD GFR <15 on SCIENTIFIC ARTIST 6 THE CEA ASSAY IS PERFORMED O N THE RelaborateAUR BY CHEMILUMINESCENCE AND SHOULD NOT BE COMPARED [...] Little GFR Left ESRD GFR <15 on SCIENTIFIC ARTIST 9 Negative results do not prec lude [...] pathogens. DISCLAIMER: Testing was performed using the [employer] SARS-CoV-2 test. This test was developed and its performance characteristics determined by [employer]. This test has not been FDA [...] Little GFR Left ESRD GFR <15 on SCIENTIFIC ARTIST 20 THE CEA ASSAY IS PERFORMED O [...] Little GFR Left ESRD GFR <15 on SCIENTIFIC ARTIST 23 TRANSFUSED PRODUCT: PACKED C ELLS COUNT: 2 24 Units are mL/min/1.73 m2 Chronic Kidney Disease Staging per NKF: Stage I & II GFR >=60 Normal to Mildly Decreased Stage III GFR 30-59 Moderately Decreased Stage IV GFR 15-29 Severely Decreased Stage V GFR <15 Very Little GFR Left ESRD GFR <15 on SCIENTIFIC ARTIST 25 THE CEA ASSAY IS PERFORMED O [...] Little GFR Left ESRD GFR <15 on SCIENTIFIC ARTIST 27 ASSAY INFORMATION: Real Time RT-PCR NOTE: The COVID-19 assay has been cleared by the [place]. Food and Drug Administration under the Emergency Use Authorization (EUA). [facility] and [facility] are designated as high complexity laboratories by [...] Little GFR Left ESRD GFR <15 on SCIENTIFIC ARTIST 30 Y/N query for Sepsis Lactate Rule: [...] Troponin I Reference Interva l for Siemens [employer] LOCI: 99th Percentile= 0.00-0.045 ng/ml Risk Stratification: [...] Little GFR Left ESRD GFR <15 on SCIENTIFIC ARTIST 36 THERAPUTIC HUMAN INR VALUES INDICATIONS NORMAL [...] Little GFR Left ESRD GFR <15 on SCIENTIFIC ARTIST Procedures Date Code Description Status 03/28/2021 [address] [place] [facility] W/I 7 Days Of DC, Comm W/I 2 Dys Completed 03/23/2021 30620 Office/Outpatient Established Mo d MDM 30-39 Min Completed 03/23/2021 [id number] Diabetic Foot Exam Completed 01/25/2021 [address] [place] [address] W/I 7 Days Of DC, Comm W/I 2 Dys Completed 12/27/2020 25060 Office/Outpatient Established Mo d MDM 30-39 Min Completed 12/19/2020 86120 Office/Outpatient Established Mo d MDM 30-39 Min Completed 12/02/2020 46058 [place] [facility] W/I 7 Days Of DC, [...] Office Visit 12/19/2020 2:15p Main Office PleskachStevey, PULVERIZER E11.6 9 Type 2 diabetes mellitus with other specified complication E78.2 Mixed hyperlipidemia I10 Essential (primary) hyperten yara 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 C18.9 Malignant neoplasm of colon, unspecified I48.91 Unspecified atrial fibrillat ion Office Visit 12/02/2020 10:30a Main Office Pleskach, Nadiya, PULVERIZER D64.9 Anemia, unspecified E11.69 Type 2 diabetes mellitus wit h other specified complication E78.2 Mixed hyperlipidemia I10 Essential (primary) hyperten yara 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 C18.9 Malignant neoplasm of colon, unspecified I48.91 Unspecified atrial fibrillat ion Assessments Date Code Description Provider 03/28/2021 D64.9 Anemia, unspecified Pleskach, Mo lly, P[facility]ER 03/28/2021 K29.61 Other gastritis with bleeding Pl eskaSteve wilsony, PUL[facility]IZER 03/23/2021 E11.69 Type 2 diabetes mellitus with ot her specified complication Pleskach Nadiya, P[facility]IZER 03/23/2021 C18.9 Malignant neoplasm of colon, uns pecified Pleskach Nadiya, PUL[facility]IZER 03/23/2021 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 Nadiya Bryan , [facility]ER 03/23/2021 E78.2 Mixed hyperlipidemia Chayo Bryan, P[facility]IZER 03/23/2021 I10 Essential (primary) hypertension Pleskach, Nadiya, PUL[facility]IZER 03/23/2021 I48.91 Unspecified atrial fibrillation Pleskach Nadiya, PUL[facility]IZER 03/23/2021 D64.9 Anemia, unspecified Pleskach, Mo lly, PUL[facility]IZER 01/25/2021 D64.9 Anemia, unspecified Pleskach, Mo lly, PULVERIZER 01/25/2021 K29.61 Other gastritis with bleeding Pl eskachStevey, PULVERIZER 12/27/2020 E11.69 Type 2 diabetes mellitus with ot her specified complication Anitha Gamez M.D. 12/27/2020 C18.9 Malignant neoplasm of colon, uns pecified Anitha Gamez M.D. 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 12/27/2020 D64.9 Anemia, unspecified Angela Gamez M.D. 12/19/2020 E11.69 Type 2 diabetes mellitus with ot her specified complication Pleskach, Nadiya, PUL[facility]IZER 12/19/2020 E78.2 Mixed hyperlipidemia Pleskach, M jarocho, PUL[facility]IZER 12/19/2020 I10 Essential (primary) hypertension Pleskach, Nadiya, PUL[facility]IZER 12/19/2020 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 Pleskach, Nadiya , P[facility]IZER 12/19/2020 C18.9 Malignant neoplasm of colon, uns pecified Pleskach, Nadiya, PUL[facility]IZER 12/19/2020 I48.91 Unspecified atrial fibrillation Pleskach, Nadiya, PUL[facility]IZER 12/02/2020 D64.9 Anemia, unspecified Pleskach, Mo lly, PUL[facility]IZER 12/02/2020 E11.69 Type 2 diabetes mellitus with ot her specified complication Pleskach, Nadiya, PULVERIZER 12/02/2020 E78.2 Mixed hyperlipidemia Pleskach, M jarocho, PUL[facility]IZER 12/02/2020 I10 Essential (primary) hypertension Pleskach, Nadiya, PULVERIZER 12/02/2020 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 Pleskach, Nadiya , PUL[facility]IZER 12/02/2020 C18.9 Malignant neoplasm of colon, uns pecified Pleskach, Nadiya, PUL[facility]IZER 12/02/2020 I48.91 Unspecified atrial fibrillation Pleskach, Nadiya, PULVERIZER Plan of Treatment Future Appointment(s):* 06/22/2021 3:30 pm - Nadiya Bryan, [facility] at Main Office 03/28/2021 - PleskachStevey, PULVERIZER* D64.9 Anemia, unspecified* Comments:* following with hematology, [...]
--- OUTSIDE RECORDS SUMMARY | 2021-05-23 16:57 | CCD | Continuity of Care Document ---
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 AUTM [phone] [facility] AUTM Jeff Cramer AUTM [phone] Problems Active Problems Provider Date Type 2 [...] 236units C18.9 Nadiya Bryan FNP 06/16/2020 Z93.2 [place] Remover Wipes Misc use 3-4 wipes every 4 days and as needed when changing ostomy 2Box Z93.2 Nadiya Bryan FNP 06/16/2020 C18.9 Efren Adapt Ceraing change every 4-5 days and as needed ref #[id number] 20units Nadiya Bryan FNP 05/05/2020 [place] 2 Piece Ostomy Skin Barrier ref # [id number] márquez ge every 4-5 days and as needed 20units C18.9 Nadiya Bryan FNP 04/14/2020 Z93.2 [place] 2 Piece Drainable Ostomy Pouch ref # [id number] c hange every 4-5 days and as [...] CPT Code Status Date Vaccine Lot # [id number] Refused 04/17/2016 Pneumococcal Vaccine 41131 Refused 04/17/2016 Prevnar 13 52959 Refused 04/17/2016 Influenza Vaccination Vital Signs Date Vital Result Comment 03/28/2021 11:51am BP Systolic 113 mmHg BP Diastolic 83 mmHg Heart Rate 127 /min Body Temperature 98.0 F Respiratory Rate 18 /min Height 61.5 inches 5'1.50" Weight 114.38 lb O2 % BldC Oximetry 100 % [place] Body Weight 105 lb BMI (Body Mass Index) 21.3 kg/m2 03/23/2021 3:47pm BP Systolic 110 mmHg BP Diastolic 62 mmHg Heart Rate 64 /min Body Temperature 98.7 F Respiratory Rate 16 /min Height 61.5 inches 5'1.50" Weight 116.38 lb O2 % BldC Oximetry 99 % [place] Body Weight 105 lb BMI (Body Mass Index) 21.6 kg/m2 Results Test Acquired Date Facility Test Result H/L Range Note CBC With Differential 05/05/2021 Patient Service [facility] [place] [id number] [phone] White Blood Count 5.1 10 Normal 4.0-10.0 [...] 36.0-66.0 Lymph % 6.3 % Low 24.0-44.0 Williamson % 11.5 % High 2.0-8.0 Eos % 0.8 % Normal 0.0-3.0 Baso % 0.4 % Normal 0.0-1.0 Immature Granulocyte % 0.6 % Normal 0-3.0 Nucleated Red Blood Cell % 0.0 % Normal 0-0 Neutrophils # 4.1 10 Normal 1.5-8.5 Lymph # 0.3 10 Low 1.5-5.0 Williamson # 0.6 10 Normal 0.0-0.8 Eos # 0.0 10 Normal 0.0-0.5 Baso # 0.0 10 Normal 0.0-0.2 CBC With Differential 04/27/2021 Patient Service [facility] [place] [id number] [phone] White Blood Count 4.2 10 Normal 4.0-10.0 [...] 36.0-66.0 Lymph % 8.1 % Low 24.0-44.0 Williamson % 12.8 % High 2.0-8.0 Eos % 1.0 % Normal 0.0-3.0 Baso % 0.2 % Normal 0.0-1.0 Immature Granulocyte % 0.5 % Normal 0-3.0 Nucleated Red Blood Cell % 0.0 % Normal 0-0 Neutrophils # 3.3 10 Normal 1.5-8.5 Lymph # 0.3 10 Low 1.5-5.0 Williamson # 0.5 10 Normal 0.0-0.8 Eos # 0.0 10 Normal 0.0-0.5 Baso # 0.0 10 Normal 0.0-0.2 CBC With Differential 04/20/2021 [place] [address] [phone] White Blood Count 3.9 10 Low 4.0-10.0 [...] 36.0-66.0 Lymph % 8.8 % Low 24.0-44.0 Williamson % 11.9 % High 2.0-8.0 Eos % 1.0 % Normal 0.0-3.0 Baso % 0.5 % Normal 0.0-1.0 Immature Granulocyte % 0.8 % Normal 0-3.0 Nucleated Red Blood Cell % 0.0 % Normal 0-0 Neutrophils # 3.0 10 Normal 1.5-8.5 Lymph # 0.3 10 Low 1.5-5.0 Williamson # 0.5 10 Normal 0.0-0.8 Eos # 0.0 10 Normal 0.0-0.5 Baso # 0.0 10 Normal 0.0-0.2 CBC With Differential 04/12/2021 Patient Service [place] [id number] [phone] White Blood Count 4.6 10 Normal 4.0-10.0 [...] 36.0-66.0 Lymph % 6.6 % Low 24.0-44.0 Williamson % 9.4 % High 2.0-8.0 Eos % 0.9 % Normal 0.0-3.0 Baso % 0.2 % Normal 0.0-1.0 Immature Granulocyte % 0.4 % Normal 0-3.0 Nucleated Red Blood Cell % 0.0 % Normal 0-0 Neutrophils # 3.8 10 Normal 1.5-8.5 Lymph # 0.3 10 Low 1.5-5.0 Williamson # 0.4 10 Normal 0.0-0.8 Eos # 0.0 10 Normal 0.0-0.5 Baso # 0.0 10 Normal 0.0-0.2 Coronavirus 2019 Nasopharygeal 04/10/2021 Patient S ervice Center [place] [id number] [phone] Coronavirus 2019 Nasopharygeal ASSAY INFORMATIO <SEE N OTE> 1 Type & Screen -Incl Blood Type,Tye,AB SC 04/07/2021 [place] [address] [phone] Blood Type O POSITIVE Normal AB Screen (Indirect Farooq)Vis NEGATIVE Normal Laboratory test finding 04/07/2021 Patient Service [place] [id number] [phone] Packed Cells TRANSFUSED PRODU <SEE NOTE> 2 CBC With Differential 04/07/2021 Patient Service Ce [facility]ter [place] [id number] [phone] White Blood Count 3.4 10 Low 4.0-10.0 [...] 36.0-66.0 Lymph % 8.5 % Low 24.0-44.0 Williamson % 10.9 % High 2.0-8.0 Eos % 0.9 % Normal 0.0-3.0 Baso % 0.6 % Normal 0.0-1.0 Immature Granulocyte % 0.6 % Normal 0-3.0 Nucleated Red Blood Cell % 0.0 % Normal 0-0 Neutrophils # 2.7 10 Normal 1.5-8.5 Lymph # 0.3 10 Low 1.5-5.0 Williamson # 0.4 10 Normal 0.0-0.8 Eos # 0.0 10 Normal 0.0-0.5 Baso # 0.0 10 Normal 0.0-0.2 Laboratory test finding 04/07/2021 [place] [address] [phone] Carcinoembryonic Antigen < 0.5 NG/ML Normal <2.5 3 Ferritin 66 NG/ML Normal 8-252 Total Iron Binding Capacit 04/07/2021 [place] [address] [phone] Iron (Fe) 48 g/dL Low 50-170 Total Iron Binding Capacity 353 g/dL Normal 250-450 Percent Saturation 13.6 % Normal 13.2-45.0 Comprehensive Metabolic Profil 04/07/[address]21 [place] [address] [phone] Glucose, Fasting 184 mg/dL High 70-100 Blood Urea Nitrogen 30 mg/dL High 7-18 Creatinine For GFR 0.81 mg/dL Normal 0.55-1.30 Glomerular Filtration Rate > 60.0 Normal >32 4 Sodium Level 141 mEq/L Normal 136-145 [...] Low 3.2-5.2 Albumin/Globulin Ratio 1.0 Low 1.2-2.2 Comprehensive Metabolic Profil 03/24/[address] [place] [address] [phone] Glucose, Fasting 96 mg/dL Normal 70-100 Blood [...] RSV Covid Amp 03/24/2021 [place] [address] [phone] Influenza A Amplification NEGATIVE Normal Negati ve 6 Influenza B Amplification NEGATIVE Normal Negative 7 RSV Amplification NEGATIVE Normal Negative 8 Sars Covid-19 Amplification NEGATIVE Normal Negative 9 Laboratory test finding 03/24/2021 [place] [address] [phone] Packed Cells TRANSFUSED PRODU <SEE NOTE> 10 CBC With Differential 03/24/2021 [place] [address] [phone] White Blood Count 4.6 10 Normal 4.0-10.0 [...] 36.0-66.0 Lymph % 6.2 % Low 24.0-44.0 Williamson % 11.4 % High 2.0-8.0 Eos % 0.4 % Normal 0.0-3.0 Baso % 0.4 % Normal 0.0-1.0 Immature Granulocyte % 0.4 % Normal 0-3.0 Nucleated Red Blood Cell % 0.7 % High 0-0 Neutrophils # 3.7 10 Normal 1.5-8.5 Lymph # 0.3 10 Low 1.5-5.0 Williamson # 0.5 10 Normal 0.0-0.8 Eos # 0.0 10 Normal 0.0-0.5 Baso # 0.0 10 Normal 0.0-0.2 Metabolic Panel (14), Comprehensive 03/17/2021 [facility] [address] [place] [address] [phone] Calcium 9.5 mg/dL 8.7-10.3 Glucose 81 mg/dL 65-99 BUN 30 mg/dL High 8-27 Creatinine 0.77 mg/dL 0.57-1.00 eGFR If NonAfricn Am 73 mL/min/1.73 >59 eGFR If Africn Am 84 mL/min/1.73 >59 11 BUN/Creatinine Ratio 39 High 12-28 Sodium 142 mmol/L 134-144 Potassium 4.4 mmol/L 3.5-5.2 Chloride 108 mmol/L High 96-106 Carbon Dioxide, Total 22 mmol/L 20-29 Protein, Total 6.1 g/dL 6.0-8.5 Albumin 4.0 g/dL 3.6-4.6 Globulin, Total 2.1 g/dL 1.5-4.5 A/G Ratio 1.9 1.2-2.2 Bilirubin, Total 0.7 mg/dL 0.0-1.2 Alkaline Phosphatase 91 IU/L 48-121 12 Ast (Sgot) 12 IU/L 0-40 Alt (SGPT) 8 IU/L 0-32 Lipid Panel 03/17/2021 [facility] [address] [place] [address] [phone] Cholesterol, Total 123 mg/dL 100-199 Triglycerides 141 mg/dL 0-149 HDL Cholesterol 37 mg/dL Low >39 VLDL Cholesterol Mark 25 mg/dL 5-40 LDL Chol Calc ([facility]) 61 mg/dL 0-99 Comment: TNP Hemoglobin A1c 03/17/2021 [facility] [address] [place] [address] [phone] Hemoglobin A1c 4.8 % 4.8-5.6 13 Albumin/Creatinine Ratio, Random Urine 03/17/2021 [facility] [address] [place] [address] [phone] Creatinine, Urine 120.2 mg/dL Not Estab. Albumin, Urine 20.1 ug/mL Not Estab. Alb/Creat Ratio 17 mg/gcreat 0-29 14 CBC With Differential 03/14/2021 [place] [address] [phone] White Blood Count 4.0 10 Normal 4.0-10.0 [...] 36.0-66.0 Lymph % 6.8 % Low 24.0-44.0 Williamson % 9.3 % High 2.0-8.0 Eos % 1.0 % Normal 0.0-3.0 Baso % 0.8 % Normal 0.0-1.0 Immature Granulocyte % 0.3 % Normal 0-3.0 Nucleated Red Blood Cell % 0.0 % Normal 0-0 Neutrophils # 3.3 10 Normal 1.5-8.5 Lymph # 0.3 10 Low 1.5-5.0 Williamson # 0.4 10 Normal 0.0-0.8 Eos # 0.0 10 Normal 0.0-0.5 Baso # 0.0 10 Normal 0.0-0.2 Laboratory test finding 03/14/2021 [place] [address] [phone] Packed Cells TRANSFUSED PRODU <SEE NOTE> 15 Type & Screen -Incl Blood Type,Tye,AB SC 03/14/2021 [place] [address] [phone] Blood Type O POSITIVE Normal AB Screen (Indirect Faroo[place])Vis NEGATIVE Normal CBC With Differential 03/10/2021 [place] [address] [phone] White Blood Count 3.4 10 Low 4.0-10.0 [...] 36.0-66.0 Lymph % 7.6 % Low 24.0-44.0 Williamson % 12.9 % High 2.0-8.0 Eos % 1.2 % Normal 0.0-3.0 Baso % 0.6 % Normal 0.0-1.0 Immature Granulocyte % 0.3 % Normal 0-3.0 Nucleated Red Blood Cell % 0.0 % Normal 0-0 Neutrophils # 2.6 10 Normal 1.5-8.5 Lymph # 0.3 10 Low 1.5-5.0 Williamson # 0.4 10 Normal 0.0-0.8 Eos # 0.0 10 Normal 0.0-0.5 Baso # 0.0 10 Normal 0.0-0.2 Comprehensive Metabolic Profil 03/10/2021 [place] [address] [phone] Glucose, Fasting 166 mg/dL High 70-100 Blood Urea Nitrogen 26 mg/dL High 7-18 Creatinine For GFR 0.73 mg/dL Normal 0.55-1.30 Glomerular Filtration Rate > 60.0 Normal >32 1 6 Sodium Level 141 mEq/L Normal 136-145 [...] Binding Capacit 03/10/2021 [place] [address] [phone] Iron (Fe) 72 g/dL Normal 50-170 Total Iron Binding Capacity 352 g/dL Normal 250-450 Percent Saturation 20.5 % Normal 13.2-45.0 Laboratory test finding 03/10/2021 [place] [address] [phone] Carcinoembryonic Antigen < 0.5 NG/ML Normal <2.5 17 Ferritin 492 NG/ML High 8-252 Laboratory test finding 02/28/2021 [place] [address] [phone] Packed Cells TRANSFUSED PRODU <SEE NOTE> 18 Type & Screen -Incl Blood Type,Tye,AB SC 02/28/2021 Patient Service [place] 2466364 [phone] Blood Type O POSITIVE Normal AB Screen (Indirect Farooq)Vis NEGATIVE Normal Creatinine With GFR 02/27/2021 Patient Service [place] 1755399 [phone] Creatinine For GFR 0.76 mg/dL Normal 0.55-1.30 Glomerular Filtration Rate > 60.0 Normal >32 1 9 CBC With Differential 02/27/2021 [place] [address] [phone] White Blood Count 6.0 10 Normal 4.0-10.0 [...] 36.0-66.0 Lymph % 4.7 % Low 24.0-44.0 Williamson % 11.6 % High 2.0-8.0 Eos % 0.5 % Normal 0.0-3.0 Baso % 0.3 % Normal 0.0-1.0 Immature Granulocyte % 0.8 % Normal 0-3.0 Nucleated Red Blood Cell % 0.3 % High 0-0 Neutrophils # 4.9 10 Normal 1.5-8.5 Lymph # 0.3 10 Low 1.5-5.0 Williamson # 0.7 10 Normal 0.0-0.8 Eos # 0.0 10 Normal 0.0-0.5 Baso # 0.0 10 Normal 0.0-0.2 Laboratory test finding 02/27/2021 [place] [address] [phone] Ferritin 1039 NG/ML High 8-252 Total Iron Binding Capacit 02/27/2021 [place] [address] [phone] Iron (Fe) 79 g/dL Normal 50-170 Total Iron Binding Capacity 384 g/dL Normal 250-450 Percent Saturation 20.6 % Normal 13.2-45.0 Laboratory test finding 02/27/2021 [place] [address] [phone] Blood Urea Nitrogen 26 mg/dL High 7-18 Laboratory test finding 02/10/2021 [place] [address] [phone] Packed Cells TRANSFUSED PRODU <SEE NOTE> 20 Type & Screen -Incl Blood Type,Tye,AB SC 02/10/2021 [place] [address] [phone] Blood Type O POSITIVE Normal AB Screen (Indirect Farooq)Vis NEGATIVE Normal CBC With Differential 02/09/2021 [place] [address] [phone] White Blood Count 3.9 10 Low 4.0-10.0 [...] 36.0-66.0 Lymph % 7.2 % Low 24.0-44.0 Williamson % 10.0 % High 2.0-8.0 Eos % 1.0 % Normal 0.0-3.0 Baso % 0.5 % Normal 0.0-1.0 Immature Granulocyte % 0.5 % Normal 0-3.0 Nucleated Red Blood Cell % 0.0 % Normal 0-0 Neutrophils # 3.1 10 Normal 1.5-8.5 Lymph # 0.3 10 Low 1.5-5.0 Williamson # 0.4 10 Normal 0.0-0.8 Eos # 0.0 10 Normal 0.0-0.5 Baso # 0.0 10 Normal 0.0-0.2 CBC With Differential 01/27/2021 [place] [address] [phone] White Blood Count 4.2 10 Normal 4.0-10.0 [...] 36.0-66.0 Lymph % 13.6 % Low 24.0-44.0 Williamson % 14.6 % High 2.0-8.0 Eos % 1.4 % Normal 0.0-3.0 Baso % 0.5 % Normal 0.0-1.0 Immature Granulocyte % 0.5 % Normal 0-3.0 Nucleated Red Blood Cell % 0.0 % Normal 0-0 Neutrophils # 2.9 10 Normal 1.5-8.5 Lymph # 0.6 10 Low 1.5-5.0 Williamson # 0.6 10 Normal 0.0-0.8 Eos # 0.1 10 Normal 0.0-0.5 Baso # 0.0 10 Normal 0.0-0.2 Laboratory test finding 01/27/2021 [place] [address] [phone] Ferritin 39 NG/ML Normal 8-252 Carcinoembryonic Antigen 0.5 NG/ML Normal <2.5 21 Comprehensive Metabolic Profil 01/27/2021 [place] [address] [phone] Glucose, Fasting 59 mg/dL Low 70-100 Blood Urea Nitrogen 25 mg/dL High 7-18 Creatinine For GFR 0.71 mg/dL Normal 0.55-1.30 Glomerular Filtration Rate > 60.0 Normal >32 2 2 Sodium Level 141 mEq/L Normal 136-145 [...] Iron Binding Capacit 01/27/2021 [place] [address] [phone] Iron (Fe) 59 g/dL Normal 50-170 Total Iron Binding Capacity 397 g/dL Normal 250-450 Percent Saturation 14.9 % Normal 13.2-45.0 Complete Blood Count 01/20/2021 [place] [address] [phone] White Blood Count 3.3 10 Low 4.0-10.0 [...] 0-0 Laboratory test finding 01/20/2021 [place] [address] [phone] Blood Urea Nitrogen 21 mg/dL High 7-18 Creatinine With GFR 01/20/2021 [place] [address] [phone] Creatinine For GFR 0.69 mg/dL Normal 0.55-1.30 Glomerular Filtration Rate > 60.0 Normal >32 2 3 Type & Screen -Incl Blood Type,Tye,AB SC 01/20/2021 Patient Service [facility] [place] [phone] Blood Type O POSITIVE Normal AB Screen (Indirect Farooq)Vis NEGATIVE Normal Coronavirus 2019 Nasopharygeal 01/16/2021 Patient S ervice Center [place] 1220502 [phone] Coronavirus 2019 Nasopharygeal ASSAY INFORMATIO <SEE N OTE> 24 Type & Screen -Incl Blood Type,Tye,AB SC 01/03/2021 [place] [address] [phone] Blood Type O POSITIVE Normal AB Screen (Indirect Farooq)Vis NEGATIVE Normal Laboratory test finding 01/03/2021 [place] [address] [phone] Packed Cells TRANSFUSED PRODU <SEE NOTE> 25 CBC With Differential 01/02/2021 [place] [address] [phone] White Blood Count 4.3 10 Normal 4.0-10.0 [...] 36.0-66.0 Lymph % 10.7 % Low 24.0-44.0 Williamson % 13.1 % High 2.0-8.0 Eos % 0.7 % Normal 0.0-3.0 Baso % 0.5 % Normal 0.0-1.0 Immature Granulocyte % 0.5 % Normal 0-3.0 Nucleated Red Blood Cell % 0.0 % Normal 0-0 Neutrophils # 3.2 10 Normal 1.5-8.5 Lymph # 0.5 10 Low 1.5-5.0 Williamson # 0.6 10 Normal 0.0-0.8 Eos # 0.0 10 Normal 0.0-0.5 Baso # 0.0 10 Normal 0.0-0.2 Comprehensive Metabolic Profil 01/02/2021 Patient S ervice [place] 2466331 [phone] Glucose, Fasting 155 mg/dL High 70-100 Blood Urea Nitrogen 24 mg/dL High 7-18 Creatinine For GFR 0.85 mg/dL Normal 0.55-1.30 Glomerular Filtration Rate > 60.0 Normal >32 2 6 Sodium Level 137 mEq/L Normal 136-145 [...] Total Iron Binding Capacit 01/02/2021 [place] [address] [phone] Iron (Fe) 55 g/dL Normal 50-170 Total Iron Binding Capacity 398 g/dL Normal 250-450 Percent Saturation 13.8 % Normal 13.2-45.0 Laboratory test finding 01/02/2021 [place] [address] [phone] Thyroid Stimulating Hormone 1.660 uIU/ML Normal 0. 358-3.740 Free T4 0.87 ng/dL Normal 0.76-1.46 Ferritin 58 NG/ML Normal 8-252 Liver Profile 12/23/2020 [place] [address] [phone] Ast/Sgot 13 U/L Normal 7-37 Alt/SGPT 14 U/L Normal 12-78 Alkaline Phosphatase 95 U/L Normal 45-117 Bilirubin,Total 0.9 mg/dL Normal 0.2-1.0 Bilirubin,Direct 0.3 mg/dL High 0.0-0.2 Total Protein 6.5 GM/DL Normal 6.4-8.2 Albumin 3.4 GM/DL Normal 3.2-5.2 Albumin/Globulin Ratio 1.1 Low 1.2-2.2 Laboratory test finding 12/23/2020 [place] [address] [phone] Lipase 73 U/L Normal 73-393 Lactic Acid Sepsis Protocol 0.8 mmol/L Normal 0.4-2.0 27 PT & Aptt 12/23/2020 [place] [address] [phone] Prothrombin Time 13.3 seconds Normal 12.5-14.3 Inr 0.99 Normal 28 Partial Thromboplastin Time 29.5 seconds Normal 24.2-38.5 Istat Chem8+ Panel 12/23/2020 [place] [address] [phone] iSTAT HCT 33.0 % Low 38.0-51.0 iSTAT Glucose 94 mg/dL Normal 70-105 iSTAT Sodium 138 mEq/L Normal 136-145 iSTAT Potassium 4.2 mEq/L Normal 3.5-5.1 iSTAT CA++ 5.0 mg/dL Normal 4.5-5.3 iSTAT Chloride 102 mEq/L Normal 98-109 iSTAT Co2 27.0 MM/L Normal 23.0-27.0 iSTAT BUN 20 mg/dL Normal 8-26 iSTAT Creatinine 0.7 mg/dL Normal 0.6-1.3 Laboratory test finding 12/23/2020 [place] [address] [phone] iSTAT Troponin 0.01 NG/ML Normal 0.00-0.08 CBC With Differential 12/23/2020 [place] [address] [phone] White Blood Count 4.5 10 Normal 4.0-10.0 [...] 36.0-66.0 Lymph % 9.7 % Low 24.0-44.0 Williamson % 11.9 % High 2.0-8.0 Eos % 0.9 % Normal 0.0-3.0 Baso % 0.4 % Normal 0.0-1.0 Immature Granulocyte % 0.4 % Normal 0-3.0 Nucleated Red Blood Cell % 0.0 % Normal 0-0 Neutrophils # 3.5 10 Normal 1.5-8.5 Lymph # 0.4 10 Low 1.5-5.0 Williamson # 0.5 10 Normal 0.0-0.8 Eos # 0.0 10 Normal 0.0-0.5 Baso # 0.0 10 Normal 0.0-0.2 CBC With Differential 12/19/2020 Patient Service [place], [place] 6174389 [phone] White Blood Count 3.8 10 Low 4.0-10.0 [...] 36.0-66.0 Lymph % 11.7 % Low 24.0-44.0 Williamson % 11.9 % High 2.0-8.0 Eos % 1.1 % Normal 0.0-3.0 Baso % 0.3 % Normal 0.0-1.0 Immature Granulocyte % 0.5 % Normal 0-3.0 Nucleated Red Blood Cell % 0.0 % Normal 0-0 Neutrophils # 2.8 10 Normal 1.5-8.5 Lymph # 0.4 10 Low 1.5-5.0 Williamson # 0.5 10 Normal 0.0-0.8 Eos # 0.0 10 Normal 0.0-0.5 Baso # 0.0 10 Normal 0.0-0.2 CBC With Differential 12/05/2020 [place] [address] [phone] White Blood Count 3.4 10 Low 4.0-10.0 [...] 36.0-66.0 Lymph % 12.8 % Low 24.0-44.0 Williamson % 13.7 % High 2.0-8.0 Eos % 1.2 % Normal 0.0-3.0 Baso % 0.6 % Normal 0.0-1.0 Immature Granulocyte % 0.3 % Normal 0-3.0 Nucleated Red Blood Cell % 0.0 % Normal 0-0 Neutrophils # 2.4 10 Normal 1.5-8.5 Lymph # 0.4 10 Low 1.5-5.0 Williamson # 0.5 10 Normal 0.0-0.8 Eos # 0.0 10 Normal 0.0-0.5 Baso # 0.0 10 Normal 0.0-0.2 PT & Aptt 12/05/2020 Patient Service [place], [place] 3361296 [phone] Prothrombin Time 13.3 seconds Normal 12.5-14.3 Inr 0.99 Normal 29 Partial Thromboplastin Time 29.4 seconds Normal 24.2-38.5 Total Iron Binding Capacit 12/05/2020 [place] [address] [phone] Iron (Fe) 94 g/dL Normal 50-170 Total Iron Binding Capacity 350 g/dL Normal 250-450 Percent Saturation 26.9 % Normal 13.2-45.0 Laboratory test finding 12/05/2020 [place] [address] [phone] Ferritin 108 NG/ML Normal 8-252 Complete Blood Count 11/25/2020 [place] [address] [phone] White Blood Count 4.4 10 Normal 4.0-10.0 [...] Blood Type,Tye,AB SC 11/25/2020 [place] [address] [phone] Blood Type O POSITIVE Normal AB Screen (Indirect Farooq)Vis NEGATIVE Normal Laboratory test finding 11/25/2020 [place] [address] [phone] NT-Pro BNP 1795 pg/mL High <450 Cardiac Marker Panel 11/25/2020 [place] [address] [phone] CPK Creatine Phosphokinase 60 U/L Normal 26-19 2 CK-MB Value Mass 1.3 NG/ML Normal <3.6 MB/CK Relative Index 2.17 Normal < Or =4 30 Troponin I < 0.02 NG/ML Normal < 0.10 31 Comprehensive Metabolic Profil 11/25/2020 [place] [address] [phone] Glucose, Fasting 110 mg/dL High 70-100 Blood Urea Nitrogen 22 mg/dL High 7-18 Creatinine For GFR 0.68 mg/dL Normal 0.55-1.30 Glomerular Filtration Rate > 60.0 Normal >32 3 2 Sodium Level 140 mEq/L Normal 136-145 Potassium [...] 1.2-2.2 PT & Aptt 11/25/2020 [place] [address] [phone] Prothrombin Time 16.4 seconds High 12.5-14.3 Inr 1.29 Normal 33 Partial Thromboplastin Time 33.4 seconds Normal 24.2-38.5 CBC With Differential 11/07/2020 [place] [address] [phone] White Blood Count 3.2 10 Low 4.0-10.0 [...] 36.0-66.0 Lymph % 10.5 % Low 24.0-44.0 Williamson % 13.3 % High 2.0-8.0 Eos % 0.9 % Normal 0.0-3.0 Baso % 0.6 % Normal 0.0-1.0 Immature Granulocyte % 0.3 % Normal 0-3.0 Nucleated Red Blood Cell % 0.0 % Normal 0-0 Neutrophils # 2.4 10 Normal 1.5-8.5 Lymph # 0.3 10 Low 1.5-5.0 Williamson # 0.4 10 Normal 0.0-0.8 Eos # 0.0 10 Normal 0.0-0.5 Baso # 0.0 10 Normal 0.0-0.2 Comprehensive Metabolic Profil 11/07/2020 [place] [address] [phone] Glucose, Fasting 142 mg/dL High 70-100 Blood Urea Nitrogen 17 mg/dL Normal 7-18 Creatinine For GFR 0.72 mg/dL Normal 0.55-1.30 Glomerular Filtration Rate > 60.0 Normal >32 3 4 Sodium Level 140 mEq/L Normal 136-145 Potassium [...] 1.2-2.2 Total Iron Binding Capacit 11/07/2020 [place] 8[address]20 [phone] Iron (Fe) 43 g/dL Low 50-170 Total Iron Binding Capacity 302 g/dL Normal 250-450 Percent Saturation 14.2 % Normal 13.2-45.0 Laboratory test finding 11/07/2020 Patient Service [facility] [place], [place] 8[address] [phone] Ferritin 207 NG/ML Normal 8-252 1 ASSAY INFORMATION: Real Time RT-PCR or TMA. Both RT-PCR and TMA are nucleic acid amplification tests (NAAT) which are molecular testing modalities and recommended by the CDC for passenger travel. Testing and International Air Travel, cdc.gov/coronavirus/2019-ncov/travelers/zknhkpv-pzx-fgkqav.html 09/01/2020 NOTE: The COVID-19 assay is under Emergency Use Authorization (EUA) by the U.S. Food and Drug Administration. [facility] and [facility] are designated as high complexity laboratories by the Clinical Laboratory Improvement Amendments of 1988 (CLIA) and are qualified to perform this test. Not Detected 2 TRANSFUSED PRODUCT: PACKED C ELLS COUNT: 3 3 THE CEA ASSAY IS PERFORMED O N THE [facility] [employer] [facility] BY CHEMILUMINESCENCE AND SHOULD NOT BE COMPARED INTERCHANGEABLY WITH OTHER METHODS. IT SHOULD NOT BE USED ALONE A SCREENING TEST OR DIAGNOSIS FOR THE PRESENCE OR ABSENCE OF MALIGNANT DISEASE. PREDICTIONS OF DISEASE RECURRENCE SHOULD NOT BE BASED SOLELY ON VALUES OBTAINED FROM SERIAL PATIENT SERUM VALUES. 4 Units are mL/min/1.73 m2 Chronic Kidney Disease Staging per NKF: Stage I & II GFR >=60 Normal to Mildly Decreased Stage III GFR 30-59 Moderately Decreased Stage IV GFR 15-29 Severely Decreased Stage V GFR <15 Very Little GFR Left ESRD GFR <15 on LEHR LOADER 5 Units are mL/min/1.73 m2 Chronic Kidney Disease Staging per NKF: Stage I & II GFR >=60 Normal to Mildly Decreased Stage III GFR 30-59 Moderately Decreased Stage IV GFR 15-29 Severely Decreased Stage V GFR <15 Very Little GFR Left ESRD GFR <15 on LEHR LOADER 6 Negative results do not prec lude influenza or RSV virus infection and should not be used as the sole basis for treatment or other patient management decisions. 7 Negative results do not prec lude influenza or RSV virus infection and should not be used as the sole basis for treatment or other patient management decisions. 8 Negative results do not prec lude influenza or RSV virus infection and should not be used as the sole basis for treatment or other patient management decisions. 9 A false negative result may occur if [...] pathogens. DISCLAIMER: Testing was performed using the [facility] SARS-CoV-2 test. This test was developed and its performance characteristics determined by [facility]. This test has not been FDA cleared [...] the authorization is terminated or revoked sooner. 10 TRANSFUSED PRODUCT: PACKED C ELLS COUNT: 1 11 [facility] currently reports eGFR in compliance with the current recommendations of the [employer]. [facility] will update reporting as new guidelines are published from the [employer] Task force. 12 Effective March 27 Alkaline Phosphatase reference interval [...] years 44 - 121 44 - 121 13 Prediabetes: 5.7 - 6.4 Diabetes: >6.4 Glycemic control for adults with diabetes: <7.0 14 Normal: 0 - 29 Moderately increased: 30 - 300 Severely increased: >300 15 TRANSFUSED PRODUCT: PACKED C ELLS COUNT: 2 16 Units are mL/min/1.73 m2 Chronic Kidney Disease Staging per NKF: Stage I & II GFR >=60 Normal to Mildly Decreased Stage III GFR 30-59 Moderately Decreased Stage IV GFR 15-29 Severely Decreased Stage V GFR <15 Very Little GFR Left ESRD GFR <15 on LEHR LOADER 17 THE CEA ASSAY IS PERFORMED O N THE [place] BY CHEMILUMINESCENCE AND SHOULD NOT BE COMPARED INTERCHANGEABLY WITH OTHER METHODS. IT SHOULD NOT BE USED ALONE A SCREENING TEST OR DIAGNOSIS FOR THE PRESENCE OR ABSENCE OF MALIGNANT DISEASE. PREDICTIONS OF DISEASE RECURRENCE SHOULD NOT BE BASED SOLELY ON VALUES OBTAINED FROM SERIAL PATIENT SERUM VALUES. 18 TRANSFUSED PRODUCT: PACKED C ELLS COUNT: 2 19 Units are mL/min/1.73 m2 Chronic Kidney Disease Staging per NKF: Stage I & II GFR >=60 Normal to Mildly Decreased Stage III GFR 30-59 Moderately Decreased Stage IV GFR 15-29 Severely Decreased Stage V GFR <15 Very Little GFR Left ESRD GFR <15 on LEHR LOADER 20 TRANSFUSED PRODUCT: PACKED C ELLS COUNT: 2 21 THE CEA ASSAY IS PERFORMED O N THE [place] BY CHEMILUMINESCENCE AND SHOULD NOT BE COMPARED INTERCHANGEABLY WITH OTHER METHODS. IT SHOULD NOT BE USED ALONE A SCREENING TEST OR DIAGNOSIS FOR THE PRESENCE OR ABSENCE OF MALIGNANT DISEASE. PREDICTIONS OF DISEASE RECURRENCE SHOULD NOT BE BASED SOLELY ON VALUES OBTAINED FROM SERIAL PATIENT SERUM VALUES. 22 Units are mL/min/1.73 m2 Chronic Kidney Disease Staging per NKF: Stage I & II GFR >=60 Normal to Mildly Decreased Stage III GFR 30-59 Moderately Decreased Stage IV GFR 15-29 Severely Decreased Stage V GFR <15 Very Little GFR Left ESRD GFR <15 on LEHR LOADER 23 Units are mL/min/1.73 m2 Chronic Kidney Disease Staging per NKF: Stage I & II GFR >=60 Normal to Mildly Decreased Stage III GFR 30-59 Moderately Decreased Stage IV GFR 15-29 Severely Decreased Stage V GFR <15 Very Little GFR Left ESRD GFR <15 on LEHR LOADER 24 ASSAY INFORMATION: Real Time RT-PCR NOTE: The COVID-19 assay has been cleared by the U.S. Food and Drug Administration under the Emergency Use Authorization (EUA). [facility] and [facility] are designated as high complexity laboratories by the Clinical Laboratory Improvement Amendments of 1988(CLIA) and are qualified to perform this test. Not Detected 25 TRANSFUSED PRODUCT: PACKED C ELLS COUNT: 1 26 Units are mL/min/1.73 m2 Chronic Kidney Disease Staging per NKF: Stage I & II GFR >=60 Normal to Mildly Decreased Stage III GFR 30-59 Moderately Decreased Stage IV GFR 15-29 Severely Decreased Stage V GFR <15 Very Little GFR Left ESRD GFR <15 on LEHR LOADER 27 Y/N query for Sepsis Lactate Rule: Y 28 THERAPUTIC HUMAN INR VALUES INDICATIONS NORMAL RANGES PROPHYLAXIS/TREATMENT OF: VENOUS THROMBOSIS 2.0-3.0 PULMONARY EMBOLISM 2.0-3.0 PREVENTION OF SYSTEMIC EMBOLISM FROM: TISSUE HEART VALVES 2.0-3.0 ACUTE MYOCARDIAL INFARCTION 2.0-3.0 VALVULAR HEART DISEASE 2.0-3.0 ATRIAL FIBRILLATION 2.0-3.0 MECHANICAL VALVES(HIGH RISK) 2.5-3.5 RECURRENT MYOCARDIAL INFARCTION 2.5-3.5 29 THERAPUTIC HUMAN INR VALUES INDICATIONS NORMAL RANGES PROPHYLAXIS/TREATMENT OF: VENOUS THROMBOSIS 2.0-3.0 PULMONARY EMBOLISM 2.0-3.0 PREVENTION OF SYSTEMIC EMBOLISM FROM: TISSUE HEART VALVES 2.0-3.0 ACUTE MYOCARDIAL INFARCTION 2.0-3.0 VALVULAR HEART DISEASE 2.0-3.0 ATRIAL FIBRILLATION 2.0-3.0 MECHANICAL VALVES(HIGH RISK) 2.5-3.5 RECURRENT MYOCARDIAL INFARCTION 2.5-3.5 30 DIAGNOSIS CRITERIA MMB ng/ml Relative Index (RI) NON-AMI < or = 5 N/A LEVINE ZONE > 5 < or = 4 AMI > 5 > 4 31 Troponin I Reference Interva l for Versafe LOCI: 99th Percentile= 0.00-0.045 ng/ml Risk Stratification: <= 0.10 ng/ml Decreased Risk for Adverse Clinical Events. 0.10-1.50 ng/ml Increased Risk for Adv erse Clinical Events. Evaluation of additional criterion and/or repeat testing in 2-6 hours is suggested to rule out myocardial damage. >= 1.50 ng/ml Indicative of Myocardial Injury. 32 Units are mL/min/1.73 m2 Chronic Kidney Disease Staging per NKF: Stage I & II GFR >=60 Normal to Mildly Decreased Stage III GFR 30-59 Moderately Decreased Stage IV GFR 15-29 Severely Decreased Stage V GFR <15 Very Little GFR Left ESRD GFR <15 on LEHR LOADER 33 THERAPUTIC HUMAN INR VALUES INDICATIONS NORMAL RANGES PROPHYLAXIS/TREATMENT OF: VENOUS THROMBOSIS 2.0-3.0 PULMONARY EMBOLISM 2.0-3.0 PREVENTION OF SYSTEMIC EMBOLISM FROM: TISSUE HEART VALVES 2.0-3.0 ACUTE MYOCARDIAL INFARCTION 2.0-3.0 VALVULAR HEART DISEASE 2.0-3.0 ATRIAL FIBRILLATION 2.0-3.0 MECHANICAL VALVES(HIGH RISK) 2.5-3.5 RECURRENT MYOCARDIAL INFARCTION 2.5-3.5 34 Units are mL/min/1.73 m2 Chronic Kidney Disease Staging per NKF: Stage I & II GFR >=60 Normal to Mildly Decreased Stage III GFR 30-59 Moderately Decreased Stage IV GFR 15-29 Severely Decreased Stage V GFR <15 Very Little GFR Left ESRD GFR <15 on LEHR LOADER Procedures Date Code Description Status 03/28/2021 [id number] [place] W/I 7 Days Of DC, Comm W/I 2 Dys Completed 03/23/2021 [id number] Office/Outpatient Established Mo d MDM 30-39 Min Completed 03/23/2021 [id number] Diabetic Foot Exam Completed 01/25/2021 [id number] [place] W/I 7 Days Of DC, Comm W/I 2 Dys Completed 12/27/2020 [id number] Office/Outpatient Established Mo d MDM 30-39 Min Completed 12/19/2020 [id number] Office/Outpatient Established Mo d MDM 30-39 Min Completed 12/02/2020 [id number] [place] W/I 7 Days Of DC, [...] unspecified Office Visit 12/19/2020 2:15p Main Office PlegudeliaachStevey, NET MAKING SUPERVISOR E11.6 9 Type 2 diabetes mellitus with other specified complication E78.2 Mixed hyperlipidemia I10 Essential (primary) hyperten yara 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 C18.9 Malignant neoplasm of colon, unspecified I48.91 Unspecified atrial fibrillat ion Office Visit 12/02/2020 10:30a Main Office PlegudeliaachNadiya, NET MAKING SUPERVISOR D64.9 Anemia, unspecified E11.69 Type 2 diabetes mellitus wit h other specified complication E78.2 Mixed hyperlipidemia I10 Essential (primary) hyperten yara 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 C18.9 Malignant neoplasm of colon, unspecified I48.91 Unspecified atrial fibrillat ion Assessments Date Code Description Provider 03/28/2021 D64.9 Anemia, unspecified Pleskach, Mo lly, [facility] 03/28/2021 K29.61 Other gastritis with bleeding Pl Nadiya hogan, NET MAKING SUPERVISOR 03/23/2021 E11.69 Type 2 diabetes mellitus with ot her specified complication Pleskach Nadiya, NET MAKING SUPERVISOR 03/23/2021 C18.9 Malignant neoplasm of colon, uns pecified P[place]ach Nadiya, NET MAKING SUPERVISOR 03/23/2021 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 Steve Bryany , NET MAKING SUPERVISOR 03/23/2021 E78.2 Mixed hyperlipidemia Chayo Bryan, NET MAKING SUPERVISOR 03/23/2021 I10 Essential (primary) hypertension PleskachStevey, NET MAKING SUPERVISOR 03/23/2021 I48.91 Unspecified atrial fibrillation PleSteve traceyy, NET MAKING SUPERVISOR 03/23/2021 D64.9 Anemia, unspecified Pleskach, Mo lly, NET MAKING SUPERVISOR 01/25/2021 D64.9 Anemia, unspecified Pleskach, Mo lly, NET MAKING SUPERVISOR 01/25/2021 K29.61 Other [address]ritis with bleeding Pl eskachNadiya, NET MAKING SUPERVISOR 12/27/2020 E11.69 Type 2 diabetes mellitus with ot her specified complication Anitha Gamez M.D. 12/27/2020 C18.9 Malignant neoplasm of colon, uns pecified Anitha Gamez M.D. 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 12/27/2020 D64.9 Anemia, unspecified Angela Gamez M.D. 12/19/2020 E11.69 Type 2 diabetes mellitus with ot her specified complication Pleskach, Nadiya, NET MAKING SUPERVISOR 12/19/2020 E78.2 Mixed hyperlipidemia Pleskach, M jarocho, NET MAKING SUPERVISOR 12/19/2020 I10 Essential (primary) hypertension Pleskach, Nadiya, NET MAKING SUPERVISOR 12/19/2020 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 Pleskach, Nadiya , NET MAKING SUPERVISOR 12/19/2020 C18.9 Malignant neoplasm of colon, uns pecified Pleskach, Nadiya, NET MAKING SUPERVISOR 12/19/2020 I48.91 Unspecified atrial fibrillation Pleskach, Nadiya, NET MAKING SUPERVISOR 12/02/2020 D64.9 Anemia, unspecified Pleskach, Mo lly, NET MAKING SUPERVISOR 12/02/2020 E11.69 Type 2 diabetes mellitus with ot her specified complication Pleskach, Nadiya, NET MAKING SUPERVISOR 12/02/2020 E78.2 Mixed hyperlipidemia Pleskach, M jarocho, NET MAKING SUPERVISOR 12/02/2020 I10 Essential (primary) hypertension Pleskach, Nadiya, NET MAKING SUPERVISOR 12/02/2020 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 Pleskach, Nadiya , NET MAKING SUPERVISOR 12/02/2020 C18.9 Malignant neoplasm of colon, uns pecified Pleskach, Nadiya, NET MAKING SUPERVISOR 12/02/2020 I48.91 Unspecified atrial fibrillation PlegudeliaachStevey, NET MAKING SUPERVISOR Plan of Treatment Future Appointment(s):* 06/22/2021 3:30 pm - Nadiya Bryan FNP at Main Office 03/28/2021 - Nadiya Bryan NET MAKING SUPERVISOR* D64.9 Anemia, unspecified* Comments:* following with hematology, [...]
--- OUTSIDE RECORDS SUMMARY | 2021-05-23 16:57 | CCD | Continuity of Care Document ---
Author Author Meron BRYAN COMMERCIAL ESTIMATOR Organization Unknown Address [address] [place] [address] Phone [phone] Care Team Providers Care Manager Community Development Name Role Phone [facility] AUTM [phone] Niels Decker M.D. AUTM [phone] [facility] AUTM [phone] Jeff Cramer AUTM [phone] Problems Active Problems Provider Date Type 2 [...] 236units C18.9 Nadiya Bryan FNP 06/16/2020 Z93.2 Argos Remover Wipes Misc use 3-4 wipes every 4 days and as needed when changing ostomy 2Box Z93.2 Nadiya Bryan FNP 06/16/2020 C18.9 Efren Adapt Ceraing change every 4-5 days and as needed ref #[id number] 20units Nadiya Bryan FNP 05/05/2020 Leslie 2 Piece Ostomy Skin Barrier ref # [id number] márquez ge every 4-5 days and as needed 20units C18.9 Nadiya Bryan FNP 04/14/2020 Z93.2 Leslie 2 Piece Drainable Ostomy Pouch ref # [id number] c hange every 4-5 days and as [...] CPT Code Status Date Vaccine Lot # 53636 Refused 04/17/2016 Pneumococcal Vaccine 58370 Refused 04/17/2016 Prevnar 13 [id number] Refused 04/17/2016 Influenza Vaccination Vital Signs Date Vital Result Comment 03/28/2021 11:51am BP Systolic 113 mmHg BP Diastolic 83 mmHg Heart Rate 127 /min Body Temperature 98.0 F Respiratory Rate 18 /min Height 61.5 inches 5'1.50" Weight 114.38 lb O2 % BldC Oximetry 100 % Lemmon Body Weight 105 lb BMI (Body Mass Index) 21.3 kg/m2 03/23/2021 3:47pm BP Systolic 110 mmHg BP Diastolic 62 mmHg Heart Rate 64 /min Body Temperature 98.7 F Respiratory Rate 16 /min Height 61.5 inches 5'1.50" Weight 116.38 lb O2 % BldC Oximetry 99 % Lemmon Body Weight 105 lb BMI (Body Mass Index) 21.6 kg/m2 Results Test Acquired Date Facility Test Result H/L Range Note Prothrombin Time/Inr 05/05/2021 [place] [address] [phone] Prothrombin Time 14.0 seconds Normal 12.7-14.5 Inr 1.04 Normal 1 Laboratory test finding 05/05/2021 [place] [address] [phone] Partial Thromboplastin Time 24.9 seconds Low 25 .9-37.0 Platelet Function Analysis 05/05/2021 [place] [address] [phone] Collagen Epinephrine TNP seconds Normal 74-162 2 Laboratory test finding 05/05/2021 [place] [address] [phone] LDH Lactate Dehydrogenase 128 U/L Normal 84-246 CBC With Differential 05/05/2021 [place] [address] [phone] White Blood Count 5.1 10 Normal 4.0-10.0 [...] 36.0-66.0 Lymph % 6.3 % Low 24.0-44.0 [place] % 11.5 % High 2.0-8.0 Eos % 0.8 % Normal 0.0-3.0 Baso % 0.4 % Normal 0.0-1.0 Immature Granulocyte % 0.6 % Normal 0-3.0 Nucleated Red Blood Cell % 0.0 % Normal 0-0 Neutrophils # 4.1 10 Normal 1.5-8.5 Lymph # 0.3 10 Low 1.5-5.0 [place] # 0.6 10 Normal 0.0-0.8 Eos # 0.0 10 Normal 0.0-0.5 Baso # 0.0 10 Normal 0.0-0.2 Type & Screen -Incl Blood Type,Tye,AB SC 05/05/2021 [place] [address] [phone] Blood Type O POSITIVE Normal AB Screen (Indirect Farooq)Vis NEGATIVE Normal Laboratory test finding 05/05/2021 [place] [address] [phone] Packed Cells TRANSFUSED PRODU <SEE NOTE> 3 Retic (Reticulocyte Count) 05/05/2021 [place] [address] [phone] Reticulocyte % 5.9 % High 0.5-1.5 Reticulocyte # 119.8 10 High 17-77 Retic Hemoglobin Equivalent 30.7 pg Normal 24-36 CBC With Differential 04/27/2021 [place] [address] [phone] White Blood Count 4.2 10 Normal 4.0-10.0 [...] 36.0-66.0 Lymph % 8.1 % Low 24.0-44.0 [place] % 12.8 % High 2.0-8.0 Eos % 1.0 % Normal 0.0-3.0 Baso % 0.2 % Normal 0.0-1.0 Immature Granulocyte % 0.5 % Normal 0-3.0 Nucleated Red Blood Cell % 0.0 % Normal 0-0 Neutrophils # 3.3 10 Normal 1.5-8.5 Lymph # 0.3 10 Low 1.5-5.0 [place] # 0.5 10 Normal 0.0-0.8 Eos # 0.0 10 Normal 0.0-0.5 Baso # 0.0 10 Normal 0.0-0.2 CBC With Differential 04/20/2021 Patient Service [place] [id number] [phone] White Blood Count 3.9 10 Low 4.0-10.0 [...] 36.0-66.0 Lymph % 8.8 % Low 24.0-44.0 [place] % 11.9 % High 2.0-8.0 Eos % 1.0 % Normal 0.0-3.0 Baso % 0.5 % Normal 0.0-1.0 Immature Granulocyte % 0.8 % Normal 0-3.0 Nucleated Red Blood Cell % 0.0 % Normal 0-0 Neutrophils # 3.0 10 Normal 1.5-8.5 Lymph # 0.3 10 Low 1.5-5.0 [place] # 0.5 10 Normal 0.0-0.8 Eos # 0.0 10 Normal 0.0-0.5 Baso # 0.0 10 Normal 0.0-0.2 CBC With Differential 04/12/2021 [place] [address] [phone] White Blood Count 4.6 10 Normal 4.0-10.0 [...] 36.0-66.0 Lymph % 6.6 % Low 24.0-44.0 [place] % 9.4 % High 2.0-8.0 Eos % 0.9 % Normal 0.0-3.0 Baso % 0.2 % Normal 0.0-1.0 Immature Granulocyte % 0.4 % Normal 0-3.0 Nucleated Red Blood Cell % 0.0 % Normal 0-0 Neutrophils # 3.8 10 Normal 1.5-8.5 Lymph # 0.3 10 Low 1.5-5.0 [place] # 0.4 10 Normal 0.0-0.8 Eos # 0.0 10 Normal 0.0-0.5 Baso # 0.0 10 Normal 0.0-0.2 Coronavirus 2019 Nasopharygeal 04/10/2021 [place] [address] [phone] Coronavirus 2019 Nasopharygeal ASSAY INFORMATIO <SEE N OTE> 4 Comprehensive Metabolic Profil 04/07/2021 Patient S ervice [place], [place] [id number] [phone] Glucose, Fasting 184 mg/dL High 70-100 Blood [...] Binding Capacit 04/07/2021 [place] [address] [phone] Iron (Fe) 48 g/dL Low 50-170 Total Iron Binding Capacity 353 g/dL Normal 250-450 Percent Saturation 13.6 % Normal 13.2-45.0 Laboratory test finding 04/07/2021 [place] [address] [phone] Carcinoembryonic Antigen < 0.5 NG/ML Normal <2.5 6 Ferritin 66 NG/ML Normal 8-252 CBC With Differential 04/07/2021 [place] [address] [phone] White Blood Count 3.4 10 Low 4.0-10.0 [...] 36.0-66.0 Lymph % 8.5 % Low 24.0-44.0 [place] % 10.9 % High 2.0-8.0 Eos % 0.9 % Normal 0.0-3.0 Baso % 0.6 % Normal 0.0-1.0 Immature Granulocyte % 0.6 % Normal 0-3.0 Nucleated Red Blood Cell % 0.0 % Normal 0-0 Neutrophils # 2.7 10 Normal 1.5-8.5 Lymph # 0.3 10 Low 1.5-5.0 [place] # 0.4 10 Normal 0.0-0.8 Eos # 0.0 10 Normal 0.0-0.5 Baso # 0.0 10 Normal 0.0-0.2 Laboratory test finding 04/07/2021 Patient Service Center [place], [place] [id number] [phone] Packed Cells TRANSFUSED PRODU <SEE NOTE> 7 Type & Screen -Incl Blood Type,Tye,AB SC 04/07/2021 [place] [address] [phone] Blood Type O POSITIVE Normal AB Screen (Indirect Farooq)Vis NEGATIVE Normal Comprehensive Metabolic Profil 03/24/2021 [facility] [place], [place] [address] [phone] Glucose, Fasting 96 mg/dL Normal 70-100 Blood [...] CBC With Differential 03/24/2021 Patient Service Ce [facility] [place] [address] [phone] White Blood Count 4.6 10 Normal 4.0-10.0 [...] 36.0-66.0 Lymph % 6.2 % Low 24.0-44.0 [place] % 11.4 % High 2.0-8.0 Eos % 0.4 % Normal 0.0-3.0 Baso % 0.4 % Normal 0.0-1.0 Immature Granulocyte % 0.4 % Normal 0-3.0 Nucleated Red Blood Cell % 0.7 % High 0-0 Neutrophils # 3.7 10 Normal 1.5-8.5 Lymph # 0.3 10 Low 1.5-5.0 [place] # 0.5 10 Normal 0.0-0.8 Eos # 0.0 10 Normal 0.0-0.5 Baso # 0.0 10 Normal 0.0-0.2 Influenza A/B RSV Covid Amp 03/24/2021 [place] [address] [phone] Influenza A Amplification NEGATIVE Normal Negati ve 9 Influenza B Amplification NEGATIVE Normal Negative 10 RSV Amplification NEGATIVE Normal Negative 11 Sars Covid-19 Amplification NEGATIVE Normal Negative 12 Laboratory test finding 03/24/2021 Patient [facility] [place] [address] [phone] Packed Cells TRANSFUSED PRODU <SEE NOTE> 13 Metabolic Panel (14), Comprehensive 03/17/2021 [facility] [address] [place] [address] [phone] Calcium 9.5 mg/dL 8.7-10.3 Glucose 81 mg/dL [...] IU/L 0-32 Lipid Panel 03/17/2021 [facility] [address] [place] [address] [phone] Cholesterol, Total 123 mg/dL 100-199 Triglycerides 141 mg/dL 0-149 HDL Cholesterol 37 mg/dL Low >39 VLDL Cholesterol Mark 25 mg/dL 5-40 LDL Chol Calc (Nih) 61 mg/dL 0-99 Comment: TNP Hemoglobin A1c 03/17/2021 [facility] [address] [place] [address] [phone] Hemoglobin A1c 4.8 % 4.8-5.6 16 Albumin/Creatinine Ratio, Random Urine 03/17/2021 [facility] [address] [place] [address] [phone] Creatinine, Urine 120.2 mg/dL Not Estab. Albumin, Urine 20.1 ug/mL Not Estab. Alb/Creat Ratio 17 mg/gcreat 0-29 17 Laboratory test finding 03/14/2021 [place] [address] [phone] Packed Cells TRANSFUSED PRODU <SEE NOTE> 18 Type & Screen -Incl Blood Type,Tye,AB SC 03/14/2021 [place] [address] [phone] Blood Type O POSITIVE Normal AB Screen (Indirect Farooq)Vis NEGATIVE Normal CBC With Differential 03/14/2021 [place] [address] [phone] White Blood Count 4.0 10 Normal 4.0-10.0 [...] 36.0-66.0 Lymph % 6.8 % Low 24.0-44.0 [place] % 9.3 % High 2.0-8.0 Eos % 1.0 % Normal 0.0-3.0 Baso % 0.8 % Normal 0.0-1.0 Immature Granulocyte % 0.3 % Normal 0-3.0 Nucleated Red Blood Cell % 0.0 % Normal 0-0 Neutrophils # 3.3 10 Normal 1.5-8.5 Lymph # 0.3 10 Low 1.5-5.0 [place] # 0.4 10 Normal 0.0-0.8 Eos # 0.0 10 Normal 0.0-0.5 Baso # 0.0 10 Normal 0.0-0.2 CBC With Differential 03/10/2021 [place] [address] [phone] White Blood Count 3.4 10 Low 4.0-10.0 [...] 36.0-66.0 Lymph % 7.6 % Low 24.0-44.0 [place] % 12.9 % High 2.0-8.0 Eos % 1.2 % Normal 0.0-3.0 Baso % 0.6 % Normal 0.0-1.0 Immature Granulocyte % 0.3 % Normal 0-3.0 Nucleated Red Blood Cell % 0.0 % Normal 0-0 Neutrophils # 2.6 10 Normal 1.5-8.5 Lymph # 0.3 10 Low 1.5-5.0 [place] # 0.4 10 Normal 0.0-0.8 Eos # 0.0 10 Normal 0.0-0.5 Baso # 0.0 10 Normal 0.0-0.2 Comprehensive Metabolic Profil 03/10/2021 Patient [place], [place] [address]4843 [phone] Glucose, Fasting 166 mg/dL High 70-100 Blood [...] Binding Capacit 03/10/2021 [place] [address] [phone] Iron (Fe) 72 g/dL Normal 50-170 Total Iron Binding Capacity 352 g/dL Normal 250-450 Percent Saturation 20.5 % Normal 13.2-45.0 Laboratory test finding 03/10/2021 [place] [address] [phone] Carcinoembryonic Antigen < 0.5 NG/ML Normal <2.5 20 Ferritin 492 NG/ML High 8-252 Laboratory test finding 02/28/2021 Patient Service Center [place] 2019532 [phone] Packed Cells TRANSFUSED PRODU <SEE NOTE> 21 Type & Screen -Incl Blood Type,Tye,AB SC 02/28/2021 [place] [address] [phone] Blood Type O POSITIVE Normal AB Screen (Indirect Farooq)Vis NEGATIVE Normal CBC With Differential 02/27/2021 [place] [address] [phone] White Blood Count 6.0 10 Normal 4.0-10.0 [...] 36.0-66.0 Lymph % 4.7 % Low 24.0-44.0 [place] % 11.6 % High 2.0-8.0 Eos % 0.5 % Normal 0.0-3.0 Baso % 0.3 % Normal 0.0-1.0 Immature Granulocyte % 0.8 % Normal 0-3.0 Nucleated Red Blood Cell % 0.3 % High 0-0 Neutrophils # 4.9 10 Normal 1.5-8.5 Lymph # 0.3 10 Low 1.5-5.0 [place] # 0.7 10 Normal 0.0-0.8 Eos # 0.0 10 Normal 0.0-0.5 Baso # 0.0 10 Normal 0.0-0.2 Laboratory test finding 02/27/2021 [place] [address] [phone] Ferritin 1039 NG/ML High 8-252 Creatinine With GFR 02/27/2021 [place] [address] [phone] Creatinine For GFR 0.76 mg/dL Normal 0.55-1.30 Glomerular Filtration Rate > 60.0 Normal >32 2 2 Laboratory test finding 02/27/2021 [place] [address] [phone] Blood Urea Nitrogen 26 mg/dL High 7-18 Total Iron Binding Capacit 02/27/2021 [place] [address] [phone] Iron (Fe) 79 g/dL Normal 50-170 Total Iron Binding Capacity 384 g/dL Normal 250-450 Percent Saturation 20.6 % Normal 13.2-45.0 Laboratory test finding 02/10/2021 [place] [address] [phone] Packed Cells TRANSFUSED PRODU <SEE NOTE> 23 Type & Screen -Incl Blood Type,Tye,AB SC 02/10/2021 Patient Service [place] 9679733 [phone] Blood Type O POSITIVE Normal AB Screen (Indirect Farooq)Vis NEGATIVE Normal CBC With Differential 02/09/2021 Patient Service Ce nter [place] 2019504 [phone] White Blood Count 3.9 10 Low 4.0-10.0 [...] 36.0-66.0 Lymph % 7.2 % Low 24.0-44.0 [place] % 10.0 % High 2.0-8.0 Eos % 1.0 % Normal 0.0-3.0 Baso % 0.5 % Normal 0.0-1.0 Immature Granulocyte % 0.5 % Normal 0-3.0 Nucleated Red Blood Cell % 0.0 % Normal 0-0 Neutrophils # 3.1 10 Normal 1.5-8.5 Lymph # 0.3 10 Low 1.5-5.0 [place] # 0.4 10 Normal 0.0-0.8 Eos # 0.0 10 Normal 0.0-0.5 Baso # 0.0 10 Normal 0.0-0.2 CBC With Differential 01/27/2021 [place] [address] [phone] White Blood Count 4.2 10 Normal 4.0-10.0 [...] 36.0-66.0 Lymph % 13.6 % Low 24.0-44.0 [place] % 14.6 % High 2.0-8.0 Eos % 1.4 % Normal 0.0-3.0 Baso % 0.5 % Normal 0.0-1.0 Immature Granulocyte % 0.5 % Normal 0-3.0 Nucleated Red Blood Cell % 0.0 % Normal 0-0 Neutrophils # 2.9 10 Normal 1.5-8.5 Lymph # 0.6 10 Low 1.5-5.0 [place] # 0.6 10 Normal 0.0-0.8 Eos # 0.1 10 Normal 0.0-0.5 Baso # 0.0 10 Normal 0.0-0.2 Comprehensive Metabolic Profil 01/27/2021 Patient S [place], [place] [address]284667 [phone] Glucose, Fasting 59 mg/dL Low 70-100 Blood [...] Total Iron Binding Capacit 01/27/2021 Patient Servi [place], [place] [address]77488 [phone] Iron (Fe) 59 g/dL Normal 50-170 Total Iron Binding Capacity 397 g/dL Normal 250-450 Percent Saturation 14.9 % Normal 13.2-45.0 Laboratory test finding 01/27/2021 Patient Service [place] 9679715 [phone] Ferritin 39 NG/ML Normal 8-252 Carcinoembryonic Antigen 0.5 NG/ML Normal <2.5 25 Creatinine With GFR 01/20/2021 [place] [address] [phone] Creatinine For GFR 0.69 mg/dL Normal 0.55-1.30 Glomerular Filtration Rate > 60.0 Normal >32 2 6 Type & Screen -Incl Blood Type,Tye,AB SC 01/20/2021 [place] [address] [phone] Blood Type O POSITIVE Normal AB Screen (Indirect Farooq)Vis NEGATIVE Normal Laboratory test finding 01/20/2021 [place] [address] [phone] Blood Urea Nitrogen 21 mg/dL High 7-18 Complete Blood Count 01/20/2021 Patient Service [place] 6608141 [phone] White Blood Count 3.3 10 Low 4.0-10.0 [...] Coronavirus 2019 Nasopharygeal 01/16/2021 Patient S ervice [place] 9679746 [phone] Coronavirus 2019 Nasopharygeal ASSAY INFORMATIO <SEE N OTE> 27 Type & Screen -Incl Blood Type,Tye,AB SC 01/03/2021 [place] [address] [phone] Blood Type O POSITIVE Normal AB Screen (Indirect Farooq)Vis NEGATIVE Normal Laboratory test finding 01/03/2021 [place] [address] [phone] Packed Cells TRANSFUSED PRODU <SEE NOTE> 28 CBC With Differential 01/02/2021 [place] [address] [phone] White Blood Count 4.3 10 Normal 4.0-10.0 [...] 36.0-66.0 Lymph % 10.7 % Low 24.0-44.0 [place] % 13.1 % High 2.0-8.0 Eos % 0.7 % Normal 0.0-3.0 Baso % 0.5 % Normal 0.0-1.0 Immature Granulocyte % 0.5 % Normal 0-3.0 Nucleated Red Blood Cell % 0.0 % Normal 0-0 Neutrophils # 3.2 10 Normal 1.5-8.5 Lymph # 0.5 10 Low 1.5-5.0 [place] # 0.6 10 Normal 0.0-0.8 Eos # 0.0 10 Normal 0.0-0.5 Baso # 0.0 10 Normal 0.0-0.2 Comprehensive Metabolic Profil 01/02/2021 [place] [address] [phone] Glucose, Fasting 155 mg/dL High 70-100 Blood [...] Iron Binding Capacit 01/02/2021 [place] [address] [phone] Iron (Fe) 55 g/dL Normal 50-170 Total Iron Binding Capacity 398 g/dL Normal 250-450 Percent Saturation 13.8 % Normal 13.2-45.0 Laboratory test finding 01/02/2021 [place] [address] [phone] Thyroid Stimulating Hormone 1.660 uIU/ML Normal 0. 358-3.740 Free T4 0.87 ng/dL Normal 0.76-1.46 Ferritin 58 NG/ML Normal 8-252 Laboratory test finding 12/23/2020 [place] [address] [phone] iSTAT Troponin 0.01 NG/ML Normal 0.00-0.08 Laboratory test finding 12/23/2020 [place] [address] [phone] Lipase 73 U/L Normal 73-393 Lactic Acid Sepsis Protocol 0.8 mmol/L Normal 0.4-2.0 30 Liver Profile 12/23/2020 [place] [address] [phone] Ast/Sgot 13 U/L Normal 7-37 Alt/SGPT 14 U/L Normal 12-78 Alkaline Phosphatase 95 U/L Normal 45-117 Bilirubin,Total 0.9 mg/dL Normal 0.2-1.0 Bilirubin,Direct 0.3 mg/dL High 0.0-0.2 Total Protein 6.5 GM/DL Normal 6.4-8.2 Albumin 3.4 GM/DL Normal 3.2-5.2 Albumin/Globulin Ratio 1.1 Low 1.2-2.2 CBC With Differential 12/23/2020 Patient Service Ce nter [facility] [place] [address] [phone] White Blood Count 4.5 10 Normal 4.0-10.0 [...] 36.0-66.0 Lymph % 9.7 % Low 24.0-44.0 [place] % 11.9 % High 2.0-8.0 Eos % 0.9 % Normal 0.0-3.0 Baso % 0.4 % Normal 0.0-1.0 Immature Granulocyte % 0.4 % Normal 0-3.0 Nucleated Red Blood Cell % 0.0 % Normal 0-0 Neutrophils # 3.5 10 Normal 1.5-8.5 Lymph # 0.4 10 Low 1.5-5.0 [place] # 0.5 10 Normal 0.0-0.8 Eos # 0.0 10 Normal 0.0-0.5 Baso # 0.0 10 Normal 0.0-0.2 Istat Chem8+ Panel 12/23/2020 Patient Service Cent er [facility] [place] [address] [phone] iSTAT HCT 33.0 % Low 38.0-51.0 iSTAT Glucose 94 mg/dL Normal 70-105 iSTAT Sodium 138 mEq/L Normal 136-145 iSTAT Potassium 4.2 mEq/L Normal 3.5-5.1 iSTAT CA++ 5.0 mg/dL Normal 4.5-5.3 iSTAT Chloride 102 mEq/L Normal 98-109 iSTAT Co2 27.0 MM/L Normal 23.0-27.0 iSTAT BUN 20 mg/dL Normal 8-26 iSTAT Creatinine 0.7 mg/dL Normal 0.6-1.3 PT & Aptt 12/23/2020 Patient Service Cent er [facility] [place] [address] [phone] Prothrombin Time 13.3 seconds Normal 12.5-14.3 Inr 0.99 Normal 31 Partial Thromboplastin Time 29.5 seconds Normal 24.2-38.5 CBC With Differential 12/19/2020 [place] [address] [phone] White Blood Count 3.8 10 Low 4.0-10.0 [...] 36.0-66.0 Lymph % 11.7 % Low 24.0-44.0 [place] % 11.9 % High 2.0-8.0 Eos % 1.1 % Normal 0.0-3.0 Baso % 0.3 % Normal 0.0-1.0 Immature Granulocyte % 0.5 % Normal 0-3.0 Nucleated Red Blood Cell % 0.0 % Normal 0-0 Neutrophils # 2.8 10 Normal 1.5-8.5 Lymph # 0.4 10 Low 1.5-5.0 [place] # 0.5 10 Normal 0.0-0.8 Eos # 0.0 10 Normal 0.0-0.5 Baso # 0.0 10 Normal 0.0-0.2 CBC With Differential 12/05/2020 [place] [address] [phone] White Blood Count 3.4 10 Low 4.0-10.0 [...] 36.0-66.0 Lymph % 12.8 % Low 24.0-44.0 [place] % 13.7 % High 2.0-8.0 Eos % 1.2 % Normal 0.0-3.0 Baso % 0.6 % Normal 0.0-1.0 Immature Granulocyte % 0.3 % Normal 0-3.0 Nucleated Red Blood Cell % 0.0 % Normal 0-0 Neutrophils # 2.4 10 Normal 1.5-8.5 Lymph # 0.4 10 Low 1.5-5.0 [place] # 0.5 10 Normal 0.0-0.8 Eos # 0.0 10 Normal 0.0-0.5 Baso # 0.0 10 Normal 0.0-0.2 PT & Aptt 12/05/2020 [place] [address] [phone] Prothrombin Time 13.3 seconds Normal 12.5-14.3 Inr 0.99 Normal 32 Partial Thromboplastin Time 29.4 seconds Normal 24.2-38.5 Total Iron Binding Capacit 12/05/2020 [place] [address] [phone] Iron (Fe) 94 g/dL Normal 50-170 Total Iron Binding Capacity 350 g/dL Normal 250-450 Percent Saturation 26.9 % Normal 13.2-45.0 Laboratory test finding 12/05/2020 Patient Service [place] 9679742 [phone] Ferritin 108 NG/ML Normal 8-252 Complete Blood Count 11/25/2020 [place] [address] [phone] White Blood Count 4.4 10 Normal 4.0-10.0 [...] -Incl Blood Type,Tye,AB SC 11/25/2020 [place] [address] [phone] Blood Type O POSITIVE Normal AB Screen (Indirect Farooq)Vis NEGATIVE Normal Laboratory test finding 11/25/2020 [place] [address] [phone] NT-Pro BNP 1795 pg/mL High <450 Cardiac Marker Panel 11/25/2020 [place] [address] [phone] CPK Creatine Phosphokinase 60 U/L Normal 26-19 2 CK-MB Value Mass 1.3 NG/ML Normal <3.6 MB/CK Relative Index 2.17 Normal < Or =4 33 Troponin I < 0.02 NG/ML Normal < 0.10 34 Comprehensive Metabolic Profil 11/25/2020 [facility] [place] [address] [phone] Glucose, Fasting 110 mg/dL High 70-100 Blood [...] & Aptt 11/25/2020 Patient Service Cent er [facility] [place], [place] [address]60 [phone] Prothrombin Time 16.4 seconds High 12.5-14.3 Inr 1.29 Normal 36 Partial Thromboplastin Time 33.4 seconds Normal 24.2-38.5 CBC With Differential 11/07/2020 Patient Service Ce nter [facility] [place], [place] [address]228689 [phone] White Blood Count 3.2 10 Low 4.0-10.0 [...] 36.0-66.0 Lymph % 10.5 % Low 24.0-44.0 [place] % 13.3 % High 2.0-8.0 Eos % 0.9 % Normal 0.0-3.0 Baso % 0.6 % Normal 0.0-1.0 Immature Granulocyte % 0.3 % Normal 0-3.0 Nucleated Red Blood Cell % 0.0 % Normal 0-0 Neutrophils # 2.4 10 Normal 1.5-8.5 Lymph # 0.3 10 Low 1.5-5.0 [place] # 0.4 10 Normal 0.0-0.8 Eos # 0.0 10 Normal 0.0-0.5 Baso # 0.0 10 Normal 0.0-0.2 Comprehensive Metabolic Profil 11/07/2020 Patient [place] [address] [phone] Glucose, Fasting 142 mg/dL High 70-100 Blood [...] Iron Binding Capacit 11/07/2020 [place] [address] [phone] Iron (Fe) 43 g/dL Low 50-170 Total Iron Binding Capacity 302 g/dL Normal 250-450 Percent Saturation 14.2 % Normal 13.2-45.0 Laboratory test finding 11/07/2020 [place] [address] [phone] Ferritin 207 NG/ML Normal 8-252 1 THERAPUTIC [...] passenger travel. Testing and International Air Travel, cdc.gov/coronavirus/2019-ncov/travelers/llkvzhq-ppf-pavpsq.html 09/01/2020 NOTE: The COVID-19 assay is under Emergency Use Authorization (EUA) by the U.S. Food and Drug Administration. [employer] and [employer] are designated as high complexity laboratories by [...] Little GFR Left ESRD GFR <15 on SAW GRINDER 6 THE CEA ASSAY IS PERFORMED O N THE [employer] BY CHEMILUMINESCENCE AND SHOULD NOT BE COMPARED [...] Little GFR Left ESRD GFR <15 on SAW GRINDER 9 Negative results do not prec lude [...] pathogens. DISCLAIMER: Testing was performed using the [employer] SARS-CoV-2 test. This test was developed and its performance characteristics determined by [employer]. This test has not been FDA cleared [...] Little GFR Left ESRD GFR <15 on SAW GRINDER 20 THE CEA ASSAY IS PERFORMED O [...] Little GFR Left ESRD GFR <15 on SAW GRINDER 23 TRANSFUSED PRODUCT: PACKED C ELLS COUNT: 2 24 Units are mL/min/1.73 m2 Chronic Kidney Disease Staging per NKF: Stage I & II GFR >=60 Normal to Mildly Decreased Stage III GFR 30-59 Moderately Decreased Stage IV GFR 15-29 Severely Decreased Stage V GFR <15 Very Little GFR Left ESRD GFR <15 on SAW GRINDER 25 THE CEA ASSAY IS PERFORMED O [...] Little GFR Left ESRD GFR <15 on SAW GRINDER 27 ASSAY INFORMATION: Real Time RT-PCR NOTE: The COVID-19 assay has been cleared by the U.S. Food and Drug Administration under the Emergency Use Authorization (EUA). [employer] and [facility] are designated as high complexity laboratories by [...] Little GFR Left ESRD GFR <15 on SAW GRINDER 30 Y/N query for Sepsis Lactate Rule: [...] Troponin I Reference Interva l for [facility] LOCI: 99th Percentile= 0.00-0.045 ng/ml Risk Stratification: [...] Little GFR Left ESRD GFR <15 on SAW GRINDER 36 THERAPUTIC HUMAN INR VALUES INDICATIONS NORMAL [...] Little GFR Left ESRD GFR <15 on SAW GRINDER Procedures Date Code Description Status 03/28/2021 [id number] [place] W/I 7 Days Of DC, Comm W/I 2 Dys Completed 03/23/2021 [id number] Office/Outpatient Established Mo d MDM 30-39 Min Completed 03/23/2021 [id number] Diabetic Foot Exam Completed 01/25/2021 [id number] [place] W/I 7 Days Of DC, Comm W/I 2 Dys Completed 12/27/2020 [id number] Office/Outpatient Established Mo d MDM 30-39 Min Completed 12/19/2020 [id number] Office/Outpatient Established Mo d MDM 30-39 Min Completed 12/02/2020 [id number] [place] W/I 7 Days Of DC, [...] Office Visit 12/19/2020 2:15p Main Office PleskachStevey, COMMERCIAL ESTIMATOR E11.6 9 Type 2 diabetes mellitus with other specified complication E78.2 Mixed hyperlipidemia I10 Essential (primary) hyperten yara 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 C18.9 Malignant neoplasm of colon, unspecified I48.91 Unspecified atrial fibrillat ion Office Visit 12/02/2020 10:30a Main Office Pleskach, Nadiya, COMMERCIAL ESTIMATOR D64.9 Anemia, unspecified E11.69 Type 2 diabetes mellitus wit h other specified complication E78.2 Mixed hyperlipidemia I10 Essential (primary) hyperten yara 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 C18.9 Malignant neoplasm of colon, unspecified I48.91 Unspecified atrial fibrillat ion Assessments Date Code Description Provider 03/28/2021 D64.9 Anemia, unspecified Pleskach, Mo lly, COMMERCIAL ESTIMATOR 03/28/2021 K29.61 Other gastritis with bleeding Pl eskaSteve wilsony, COMMERCIAL ESTIMATOR 03/23/2021 E11.69 Type 2 diabetes mellitus with ot her specified complication Pleskach Nadiya, COMMERCIAL ESTIMATOR 03/23/2021 C18.9 Malignant neoplasm of colon, uns pecified Pleskach Nadiya, COMMERCIAL ESTIMATOR 03/23/2021 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 Nadiya Bryan , COMMERCIAL ESTIMATOR 03/23/2021 E78.2 Mixed hyperlipidemia Chayo Bryan, COMMERCIAL ESTIMATOR 03/23/2021 I10 Essential (primary) hypertension Pleskach, Nadiya, COMMERCIAL ESTIMATOR 03/23/2021 I48.91 Unspecified atrial fibrillation Pleskach Nadiya, COMMERCIAL ESTIMATOR 03/23/2021 D64.9 Anemia, unspecified Pleskach, Mo lly, COMMERCIAL ESTIMATOR 01/25/2021 D64.9 Anemia, unspecified Pleskach, Mo lly, COMMERCIAL ESTIMATOR 01/25/2021 K29.61 Other gastritis with bleeding Pl eskachStevey, COMMERCIAL ESTIMATOR 12/27/2020 E11.69 Type 2 diabetes mellitus with ot her specified complication Anitha Gamez M.D. 12/27/2020 C18.9 Malignant neoplasm of colon, uns pecified Anitha Gamez M.D. 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 12/27/2020 D64.9 Anemia, unspecified Angela Gamez M.D. 12/19/2020 E11.69 Type 2 diabetes mellitus with ot her specified complication Pleskach, Nadiya, COMMERCIAL ESTIMATOR 12/19/2020 E78.2 Mixed hyperlipidemia Pleskach, M jarocho, COMMERCIAL ESTIMATOR 12/19/2020 I10 Essential (primary) hypertension Pleskach, Nadyia, COMMERCIAL ESTIMATOR 12/19/2020 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 Pleskach, Nadiya , COMMERCIAL ESTIMATOR 12/19/2020 C18.9 Malignant neoplasm of colon, uns pecified Pleskach, Nadiya, COMMERCIAL ESTIMATOR 12/19/2020 I48.91 Unspecified atrial fibrillation Pleskach, Nadiya, COMMERCIAL ESTIMATOR 12/02/2020 D64.9 Anemia, unspecified Pleskach, Mo lly, COMMERCIAL ESTIMATOR 12/02/2020 E11.69 Type 2 diabetes mellitus with ot her specified complication Pleskach, Nadiya, COMMERCIAL ESTIMATOR 12/02/2020 E78.2 Mixed hyperlipidemia Pleskach, M jarocho, COMMERCIAL ESTIMATOR 12/02/2020 I10 Essential (primary) hypertension Pleskach, Nadiya, COMMERCIAL ESTIMATOR 12/02/2020 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 Pleskach, Nadiya , COMMERCIAL ESTIMATOR 12/02/2020 C18.9 Malignant neoplasm of colon, uns pecified Pleskach, Nadiya, COMMERCIAL ESTIMATOR 12/02/2020 I48.91 Unspecified atrial fibrillation Pleskach, Nadiya, COMMERCIAL ESTIMATOR Plan of Treatment Future Appointment(s):* 06/22/2021 3:30 pm - Nadiya Bryan, COMMERCIAL ESTIMATOR at Main Office 03/28/2021 - PleskachStevey, COMMERCIAL ESTIMATOR* D64.9 Anemia, unspecified* Comments:* following with hematology, [...]
--- OUTSIDE RECORDS SUMMARY | 2021-05-23 16:57 | CCD | Continuity of Care Document ---
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 AUTM [phone] [facility] AUTM Jeff Cramer AUTM [phone] Problems Active Problems Provider Date Type 2 [...] 236units C18.9 Nadiya Bryan FNP 06/16/2020 Z93.2 Magnolia Remover Wipes Misc use 3-4 wipes every 4 days and as needed when changing ostomy 2Box Z93.2 Nadiya Bryan FNP 06/16/2020 C18.9 Efren Adapt Ceraing change every 4-5 days and as needed ref #[id number] 20units Nadiya Bryan FNP 05/05/2020 Strawn 2 Piece Ostomy Skin Barrier ref # [id number] márquez ge every 4-5 days and as needed 20units C18.9 Nadiya Bryan FNP 04/14/2020 Z93.2 Strawn 2 Piece Drainable Ostomy Pouch ref # [id number] c hange every 4-5 days and as [...] Take 1 Tablet Daily 90tabs E78.2 Anitha Gamze M.D. 016 Onetouch Ultra Blue Strips use [...] CPT Code Status Date Vaccine Lot # [id number] Refused 04/17/2016 Pneumococcal Vaccine 31654 Refused 04/17/2016 Prevnar 13 48455 Refused 04/17/2016 Influenza Vaccination Vital Signs Date Vital Result Comment 03/28/2021 11:51am BP Systolic 113 mmHg BP Diastolic 83 mmHg Heart Rate 127 /min Body Temperature 98.0 F Respiratory Rate 18 /min Height 61.5 inches 5'1.50" Weight 114.38 lb O2 % BldC Oximetry 100 % [place] Body Weight 105 lb BMI (Body Mass Index) 21.3 kg/m2 03/23/2021 3:47pm BP Systolic 110 mmHg BP Diastolic 62 mmHg Heart Rate 64 /min Body Temperature 98.7 F Respiratory Rate 16 /min Height 61.5 inches 5'1.50" Weight 116.38 lb O2 % BldC Oximetry 99 % [place] Body Weight 105 lb BMI (Body Mass Index) 21.6 kg/m2 Results Test Acquired Date Facility Test Result H/L Range Note CBC With Differential 04/27/2021 Patient Service [place] [id number] [phone] White Blood Count 4.2 10 Normal 4.0-10.0 [...] 36.0-66.0 Lymph % 8.1 % Low 24.0-44.0 Comal % 12.8 % High 2.0-8.0 Eos % 1.0 % Normal 0.0-3.0 Baso % 0.2 % Normal 0.0-1.0 Immature Granulocyte % 0.5 % Normal 0-3.0 Nucleated Red Blood Cell % 0.0 % Normal 0-0 Neutrophils # 3.3 10 Normal 1.5-8.5 Lymph # 0.3 10 Low 1.5-5.0 Comal # 0.5 10 Normal 0.0-0.8 Eos # 0.0 10 Normal 0.0-0.5 Baso # 0.0 10 Normal 0.0-0.2 CBC With Differential 04/20/2021 Patient Service Ce [place] [id number] [phone] White Blood Count 3.9 10 Low 4.0-10.0 [...] 36.0-66.0 Lymph % 8.8 % Low 24.0-44.0 Comal % 11.9 % High 2.0-8.0 Eos % 1.0 % Normal 0.0-3.0 Baso % 0.5 % Normal 0.0-1.0 Immature Granulocyte % 0.8 % Normal 0-3.0 Nucleated Red Blood Cell % 0.0 % Normal 0-0 Neutrophils # 3.0 10 Normal 1.5-8.5 Lymph # 0.3 10 Low 1.5-5.0 Comal # 0.5 10 Normal 0.0-0.8 Eos # 0.0 10 Normal 0.0-0.5 Baso # 0.0 10 Normal 0.0-0.2 CBC With Differential 04/12/2021 [place] [address] [phone] White Blood Count 4.6 10 Normal 4.0-10.0 [...] 36.0-66.0 Lymph % 6.6 % Low 24.0-44.0 Comal % 9.4 % High 2.0-8.0 Eos % 0.9 % Normal 0.0-3.0 Baso % 0.2 % Normal 0.0-1.0 Immature Granulocyte % 0.4 % Normal 0-3.0 Nucleated Red Blood Cell % 0.0 % Normal 0-0 Neutrophils # 3.8 10 Normal 1.5-8.5 Lymph # 0.3 10 Low 1.5-5.0 Comal # 0.4 10 Normal 0.0-0.8 Eos # 0.0 10 Normal 0.0-0.5 Baso # 0.0 10 Normal 0.0-0.2 Coronavirus 2019 Nasopharygeal 04/10/2021 Patient [place], [place] [id number] [phone] Coronavirus 2019 Nasopharygeal ASSAY INFORMATIO <SEE N OTE> 1 Comprehensive Metabolic Profil 04/07/2021 [place] [address] [phone] Glucose, Fasting 184 mg/dL High 70-100 Blood Urea Nitrogen 30 mg/dL High 7-18 Creatinine For GFR 0.81 mg/dL Normal 0.55-1.30 Glomerular Filtration Rate > 60.0 Normal >32 2 Sodium Level 141 mEq/L Normal 136-145 [...] Binding Capacit 04/07/2021 [place] [address] [phone] Iron (Fe) 48 g/dL Low 50-170 Total Iron Binding Capacity 353 g/dL Normal 250-450 Percent Saturation 13.6 % Normal 13.2-45.0 Laboratory test finding 04/07/2021 [place] [address] [phone] Carcinoembryonic Antigen < 0.5 NG/ML Normal <2.5 3 Ferritin 66 NG/ML Normal 8-252 CBC With Differential 04/07/2021 [place] [address] [phone] White Blood Count 3.4 10 Low 4.0-10.0 [...] 36.0-66.0 Lymph % 8.5 % Low 24.0-44.0 Comal % 10.9 % High 2.0-8.0 Eos % 0.9 % Normal 0.0-3.0 Baso % 0.6 % Normal 0.0-1.0 Immature Granulocyte % 0.6 % Normal 0-3.0 Nucleated Red Blood Cell % 0.0 % Normal 0-0 Neutrophils # 2.7 10 Normal 1.5-8.5 Lymph # 0.3 10 Low 1.5-5.0 Comal # 0.4 10 Normal 0.0-0.8 Eos # 0.0 10 Normal 0.0-0.5 Baso # 0.0 10 Normal 0.0-0.2 Laboratory test finding 04/07/2021 [place] [address] [phone] Packed Cells TRANSFUSED PRODU <SEE NOTE> 4 Type & Screen -Incl Blood Type,Tye,AB SC 04/07/2021 [place] [address] [phone] Blood Type O POSITIVE Normal AB Screen (Indirect Farooq)Vis NEGATIVE Normal Comprehensive Metabolic Profil 03/24/2021 Patient [place] [address] [phone] Glucose, Fasting 96 mg/dL Normal 70-100 Blood [...] With Differential 03/24/2021 [place] [address] [phone] White Blood Count 4.6 10 Normal 4.0-10.0 [...] 36.0-66.0 Lymph % 6.2 % Low 24.0-44.0 Comal % 11.4 % High 2.0-8.0 Eos % 0.4 % Normal 0.0-3.0 Baso % 0.4 % Normal 0.0-1.0 Immature Granulocyte % 0.4 % Normal 0-3.0 Nucleated Red Blood Cell % 0.7 % High 0-0 Neutrophils # 3.7 10 Normal 1.5-8.5 Lymph # 0.3 10 Low 1.5-5.0 Comal # 0.5 10 Normal 0.0-0.8 Eos # 0.0 10 Normal 0.0-0.5 Baso # 0.0 10 Normal 0.0-0.2 Laboratory test finding 03/24/2021 Patient Service [facility] [place], [place] [id number] [phone] Packed Cells TRANSFUSED PRODU <SEE NOTE> 6 Influenza A/B RSV Covid Amp 03/24/2021 [place] [address] [phone] Influenza A Amplification NEGATIVE Normal Negati ve 7 Influenza B Amplification NEGATIVE Normal Negative 8 RSV Amplification NEGATIVE Normal Negative 9 Sars Covid-19 Amplification NEGATIVE Normal Negative 10 Metabolic Panel (14), Comprehensive 03/17/2021 [facility] [address] [place], [place] [address] [phone] Calcium 9.5 mg/dL 8.7-10.3 Glucose 81 mg/dL [...] IU/L 0-32 Lipid Panel 03/17/2021 [facility] [address] [place], [place] [address]197 [phone] Cholesterol, Total 123 mg/dL 100-199 Triglycerides 141 mg/dL 0-149 HDL Cholesterol 37 mg/dL Low >39 VLDL Cholesterol Mark 25 mg/dL 5-40 LDL Chol Calc (Nih) 61 mg/dL 0-99 Comment: TNP Hemoglobin A1c 03/17/[address] [facility] [address] [place] [address] [phone] Hemoglobin A1c 4.8 % 4.8-5.6 13 Albumin/Creatinine Ratio, Random Urine 03/17/2021 [facility] [address] [place] [address] [phone] Creatinine, Urine 120.2 mg/dL Not Estab. Albumin, Urine 20.1 ug/mL Not Estab. Alb/Creat Ratio 17 mg/gcreat 0-29 14 CBC With Differential 03/14/2021 Patient Service Ce [facility] RADI[facility] [place] [id number] [phone] White Blood Count 4.0 10 Normal 4.0-10.0 [...] 36.0-66.0 Lymph % 6.8 % Low 24.0-44.0 Comal % 9.3 % High 2.0-8.0 Eos % 1.0 % Normal 0.0-3.0 Baso % 0.8 % Normal 0.0-1.0 Immature Granulocyte % 0.3 % Normal 0-3.0 Nucleated Red Blood Cell % 0.0 % Normal 0-0 Neutrophils # 3.3 10 Normal 1.5-8.5 Lymph # 0.3 10 Low 1.5-5.0 Comal # 0.4 10 Normal 0.0-0.8 Eos # 0.0 10 Normal 0.0-0.5 Baso # 0.0 10 Normal 0.0-0.2 Laboratory test finding 03/14/2021 [place] [address] [phone] Packed Cells TRANSFUSED PRODU <SEE NOTE> 15 Type & Screen -Incl Blood Type,Tye,AB SC 03/14/2021 [place] [address] [phone] Blood Type O POSITIVE Normal AB Screen (Indirect Farooq)Vis NEGATIVE Normal CBC With Differential 03/10/2021 Patient Service Ce nter [place] 7939306 [phone] White Blood Count 3.4 10 Low 4.0-10.0 [...] 36.0-66.0 Lymph % 7.6 % Low 24.0-44.0 Comal % 12.9 % High 2.0-8.0 Eos % 1.2 % Normal 0.0-3.0 Baso % 0.6 % Normal 0.0-1.0 Immature Granulocyte % 0.3 % Normal 0-3.0 Nucleated Red Blood Cell % 0.0 % Normal 0-0 Neutrophils # 2.6 10 Normal 1.5-8.5 Lymph # 0.3 10 Low 1.5-5.0 Comal # 0.4 10 Normal 0.0-0.8 Eos # 0.0 10 Normal 0.0-0.5 Baso # 0.0 10 Normal 0.0-0.2 Comprehensive Metabolic Profil 03/10/20[place] [address] [phone] Glucose, Fasting 166 mg/dL High 70-100 Blood [...] Total Iron Binding Capacit 03/10/2021 [place] [address] [phone] Iron (Fe) 72 g/dL Normal 50-170 Total Iron Binding Capacity 352 g/dL Normal 250-450 Percent Saturation 20.5 % Normal 13.2-45.0 Laboratory test finding 03/10/2021 [place] [address] [phone] Carcinoembryonic Antigen < 0.5 NG/ML Normal <2.5 17 Ferritin 492 NG/ML High 8-252 Laboratory test finding 02/28/2021 [place] [address] [phone] Packed Cells TRANSFUSED PRODU <SEE NOTE> 18 Type & Screen -Incl Blood Type,Tye,AB SC 02/28/2021 [place] [address] [phone] Blood Type O POSITIVE Normal AB Screen (Indirect Farooq)Vis NEGATIVE Normal Creatinine With GFR 02/27/2021 [place] [address] [phone] Creatinine For GFR 0.76 mg/dL Normal 0.55-1.30 Glomerular Filtration Rate > 60.0 Normal >32 1 9 CBC With Differential 02/27/2021 Patient Service Ce nter [place] 7939326 [phone] White Blood Count 6.0 10 Normal 4.0-10.0 [...] 36.0-66.0 Lymph % 4.7 % Low 24.0-44.0 Comal % 11.6 % High 2.0-8.0 Eos % 0.5 % Normal 0.0-3.0 Baso % 0.3 % Normal 0.0-1.0 Immature Granulocyte % 0.8 % Normal 0-3.0 Nucleated Red Blood Cell % 0.3 % High 0-0 Neutrophils # 4.9 10 Normal 1.5-8.5 Lymph # 0.3 10 Low 1.5-5.0 Comal # 0.7 10 Normal 0.0-0.8 Eos # 0.0 10 Normal 0.0-0.5 Baso # 0.0 10 Normal 0.0-0.2 Laboratory test finding 02/27/2021 [place] [address] [phone] Ferritin 1039 NG/ML High 8-252 Total Iron Binding Capacit 02/27/2021 Patient Servi ce Center [place] 7939302 [phone] Iron (Fe) 79 g/dL Normal 50-170 Total Iron Binding Capacity 384 g/dL Normal 250-450 Percent Saturation 20.6 % Normal 13.2-45.0 Laboratory test finding 02/27/2021 [place] [address] [phone] Blood Urea Nitrogen 26 mg/dL High 7-18 Laboratory test finding 02/10/2021 [place] [address] [phone] Packed Cells TRANSFUSED PRODU <SEE NOTE> 20 Type & Screen -Incl Blood Type,Tye,AB SC 02/10/2021 Patient Service Center [place] [phone] [phone] Blood Type O POSITIVE Normal AB Screen (Indirect Farooq)Vis NEGATIVE Normal CBC With Differential 02/09/2021 [place] [address] [phone] White Blood Count 3.9 10 Low 4.0-10.0 [...] 36.0-66.0 Lymph % 7.2 % Low 24.0-44.0 Comal % 10.0 % High 2.0-8.0 Eos % 1.0 % Normal 0.0-3.0 Baso % 0.5 % Normal 0.0-1.0 Immature Granulocyte % 0.5 % Normal 0-3.0 Nucleated Red Blood Cell % 0.0 % Normal 0-0 Neutrophils # 3.1 10 Normal 1.5-8.5 Lymph # 0.3 10 Low 1.5-5.0 Comal # 0.4 10 Normal 0.0-0.8 Eos # 0.0 10 Normal 0.0-0.5 Baso # 0.0 10 Normal 0.0-0.2 CBC With Differential 01/27/2021 [place] [address] [phone] White Blood Count 4.2 10 Normal 4.0-10.0 [...] 36.0-66.0 Lymph % 13.6 % Low 24.0-44.0 Comal % 14.6 % High 2.0-8.0 Eos % 1.4 % Normal 0.0-3.0 Baso % 0.5 % Normal 0.0-1.0 Immature Granulocyte % 0.5 % Normal 0-3.0 Nucleated Red Blood Cell % 0.0 % Normal 0-0 Neutrophils # 2.9 10 Normal 1.5-8.5 Lymph # 0.6 10 Low 1.5-5.0 Comal # 0.6 10 Normal 0.0-0.8 Eos # 0.1 10 Normal 0.0-0.5 Baso # 0.0 10 Normal 0.0-0.2 Laboratory test finding 01/27/2021 [place] [address] [phone] Ferritin 39 NG/ML Normal 8-252 Carcinoembryonic Antigen 0.5 NG/ML Normal <2.5 21 Comprehensive Metabolic Profil 01/27/2021 [place] [address] [phone] Glucose, Fasting 59 mg/dL Low 70-100 Blood [...] Total Iron Binding Capacit 01/27/2021 [place] [address] [phone] Iron (Fe) 59 g/dL Normal 50-170 Total Iron Binding Capacity 397 g/dL Normal 250-450 Percent Saturation 14.9 % Normal 13.2-45.0 Complete Blood Count 01/20/2021 [place] [address] [phone] White Blood Count 3.3 10 Low 4.0-10.0 [...] 0-0 Laboratory test finding 01/20/2021 Patient Service [place] [id number] [phone] Blood Urea Nitrogen 21 mg/dL High 7-18 Creatinine With GFR 01/20/2021 Patient Service [place] 0798936 [phone] Creatinine For GFR 0.69 mg/dL Normal 0.55-1.30 Glomerular Filtration Rate > 60.0 Normal >32 2 3 Type & Screen -Incl Blood Type,Tye,AB SC 01/20/2021 [place] [address] [phone] Blood Type O POSITIVE Normal AB Screen (Indirect Farooq)Vis NEGATIVE Normal Coronavirus 2019 Nasopharygeal 01/16/2021 Patient S ervice [place] [id number] [phone] Coronavirus 2019 Nasopharygeal ASSAY INFORMATIO <SEE N OTE> 24 Type & Screen -Incl Blood Type,Tye,AB SC 01/03/2021 [place] [address] [phone] Blood Type O POSITIVE Normal AB Screen (Indirect Farooq)Vis NEGATIVE Normal Laboratory test finding 01/03/2021 Patient Service [place] 3778072 [phone] Packed Cells TRANSFUSED PRODU <SEE NOTE> 25 CBC With Differential 01/02/2021 Patient Service Ce nter [place] 7939368 [phone] White Blood Count 4.3 10 Normal 4.0-10.0 [...] 36.0-66.0 Lymph % 10.7 % Low 24.0-44.0 Comal % 13.1 % High 2.0-8.0 Eos % 0.7 % Normal 0.0-3.0 Baso % 0.5 % Normal 0.0-1.0 Immature Granulocyte % 0.5 % Normal 0-3.0 Nucleated Red Blood Cell % 0.0 % Normal 0-0 Neutrophils # 3.2 10 Normal 1.5-8.5 Lymph # 0.5 10 Low 1.5-5.0 Comal # 0.6 10 Normal 0.0-0.8 Eos # 0.0 10 Normal 0.0-0.5 Baso # 0.0 10 Normal 0.0-0.2 Comprehensive Metabolic Profil 01/02/2021 [place] [address] [phone] Glucose, Fasting 155 mg/dL High 70-100 Blood [...] 1.2-2.2 Total Iron Binding Capacit 01/02/2021 [place] [address] [phone] Iron (Fe) 55 g/dL Normal 50-170 Total Iron Binding Capacity 398 g/dL Normal 250-450 Percent Saturation 13.8 % Normal 13.2-45.0 Laboratory test finding 01/02/2021 [place] [address] [phone] Thyroid Stimulating Hormone 1.660 uIU/ML Normal 0. 358-3.740 Free T4 0.87 ng/dL Normal 0.76-1.46 Ferritin 58 NG/ML Normal 8-252 Liver Profile 12/23/2020 [place] [address] [phone] Ast/Sgot 13 U/L Normal 7-37 Alt/SGPT 14 U/L Normal 12-78 Alkaline Phosphatase 95 U/L Normal 45-117 Bilirubin,Total 0.9 mg/dL Normal 0.2-1.0 Bilirubin,Direct 0.3 mg/dL High 0.0-0.2 Total Protein 6.5 GM/DL Normal 6.4-8.2 Albumin 3.4 GM/DL Normal 3.2-5.2 Albumin/Globulin Ratio 1.1 Low 1.2-2.2 Laboratory test finding 12/23/2020 [place] [address] [phone] Lipase 73 U/L Normal 73-393 Lactic Acid Sepsis Protocol 0.8 mmol/L Normal 0.4-2.0 27 PT & Aptt 12/23/2020 [place] [address] [phone] Prothrombin Time 13.3 seconds Normal 12.5-14.3 Inr 0.99 Normal 28 Partial Thromboplastin Time 29.5 seconds Normal 24.2-38.5 Istat Chem8+ Panel 12/23/2020 [place] [address] [phone] iSTAT HCT 33.0 % Low 38.0-51.0 iSTAT Glucose 94 mg/dL Normal 70-105 iSTAT Sodium 138 mEq/L Normal 136-145 iSTAT Potassium 4.2 mEq/L Normal 3.5-5.1 iSTAT CA++ 5.0 mg/dL Normal 4.5-5.3 iSTAT Chloride 102 mEq/L Normal 98-109 iSTAT Co2 27.0 MM/L Normal 23.0-27.0 iSTAT BUN 20 mg/dL Normal 8-26 iSTAT Creatinine 0.7 mg/dL Normal 0.6-1.3 Laboratory test finding 12/23/2020 Patient Service [place], [place] [address] [phone] iSTAT Troponin 0.01 NG/ML Normal 0.00-0.08 CBC With Differential 12/23/2020 [place] [address] [phone] White Blood Count 4.5 10 Normal 4.0-10.0 [...] 36.0-66.0 Lymph % 9.7 % Low 24.0-44.0 Comal % 11.9 % High 2.0-8.0 Eos % 0.9 % Normal 0.0-3.0 Baso % 0.4 % Normal 0.0-1.0 Immature Granulocyte % 0.4 % Normal 0-3.0 Nucleated Red Blood Cell % 0.0 % Normal 0-0 Neutrophils # 3.5 10 Normal 1.5-8.5 Lymph # 0.4 10 Low 1.5-5.0 Comal # 0.5 10 Normal 0.0-0.8 Eos # 0.0 10 Normal 0.0-0.5 Baso # 0.0 10 Normal 0.0-0.2 CBC With Differential 12/19/2020 [place] [address] [phone] White Blood Count 3.8 10 Low 4.0-10.0 [...] 36.0-66.0 Lymph % 11.7 % Low 24.0-44.0 Comal % 11.9 % High 2.0-8.0 Eos % 1.1 % Normal 0.0-3.0 Baso % 0.3 % Normal 0.0-1.0 Immature Granulocyte % 0.5 % Normal 0-3.0 Nucleated Red Blood Cell % 0.0 % Normal 0-0 Neutrophils # 2.8 10 Normal 1.5-8.5 Lymph # 0.4 10 Low 1.5-5.0 Comal # 0.5 10 Normal 0.0-0.8 Eos # 0.0 10 Normal 0.0-0.5 Baso # 0.0 10 Normal 0.0-0.2 CBC With Differential 12/05/2020 [place] [address] [phone] White Blood Count 3.4 10 Low 4.0-10.0 [...] 36.0-66.0 Lymph % 12.8 % Low 24.0-44.0 Comal % 13.7 % High 2.0-8.0 Eos % 1.2 % Normal 0.0-3.0 Baso % 0.6 % Normal 0.0-1.0 Immature Granulocyte % 0.3 % Normal 0-3.0 Nucleated Red Blood Cell % 0.0 % Normal 0-0 Neutrophils # 2.4 10 Normal 1.5-8.5 Lymph # 0.4 10 Low 1.5-5.0 Comal # 0.5 10 Normal 0.0-0.8 Eos # 0.0 10 Normal 0.0-0.5 Baso # 0.0 10 Normal 0.0-0.2 PT & Aptt 12/05/2020 [place] [address] [phone] Prothrombin Time 13.3 seconds Normal 12.5-14.3 Inr 0.99 Normal 29 Partial Thromboplastin Time 29.4 seconds Normal 24.2-38.5 Total Iron Binding Capacit 12/05/2020 [place] [address] [phone] Iron (Fe) 94 g/dL Normal 50-170 Total Iron Binding Capacity 350 g/dL Normal 250-450 Percent Saturation 26.9 % Normal 13.2-45.0 Laboratory test finding 12/05/2020 [place] [address] [phone] Ferritin 108 NG/ML Normal 8-252 Complete Blood Count 11/25/2020 [place] [address] [phone] White Blood Count 4.4 10 Normal 4.0-10.0 [...] -Incl Blood Type,Tye,AB SC 11/25/2020 [place] [address] [phone] Blood Type O POSITIVE Normal AB Screen (Indirect Farooq)Vis NEGATIVE Normal Laboratory test finding 11/25/2020 [place] [address] [phone] NT-Pro BNP 1795 pg/mL High <450 Cardiac Marker Panel 11/25/[address] [place] [address] [phone] CPK Creatine Phosphokinase 60 U/L Normal 26-19 2 CK-MB Value Mass 1.3 NG/ML Normal <3.6 MB/CK Relative Index 2.17 Normal < Or =4 30 Troponin I < 0.02 NG/ML Normal < 0.10 31 Comprehensive Metabolic Profil 11/25/2020 [place] [address] [phone] Glucose, Fasting 110 mg/dL High 70-100 Blood [...] 1.2-2.2 PT & Aptt 11/25/2020 [place] [address] [phone] Prothrombin Time 16.4 seconds High 12.5-14.3 Inr 1.29 Normal 33 Partial Thromboplastin Time 33.4 seconds Normal 24.2-38.5 CBC With Differential 11/07/2020 [place] [address] [phone] White Blood Count 3.2 10 Low 4.0-10.0 [...] 36.0-66.0 Lymph % 10.5 % Low 24.0-44.0 Comal % 13.3 % High 2.0-8.0 Eos % 0.9 % Normal 0.0-3.0 Baso % 0.6 % Normal 0.0-1.0 Immature Granulocyte % 0.3 % Normal 0-3.0 Nucleated Red Blood Cell % 0.0 % Normal 0-0 Neutrophils # 2.4 10 Normal 1.5-8.5 Lymph # 0.3 10 Low 1.5-5.0 Comal # 0.4 10 Normal 0.0-0.8 Eos # 0.0 10 Normal 0.0-0.5 Baso # 0.0 10 Normal 0.0-0.2 Comprehensive Metabolic Profil 11/07/[address] [place] [address] [phone] Glucose, Fasting 142 mg/dL High 70-100 Blood [...] Binding Capacit 11/07/2020 Patient Servi ce Center [place], [place] 2610640 [phone] Iron (Fe) 43 g/dL Low 50-170 Total Iron Binding Capacity 302 g/dL Normal 250-450 Percent Saturation 14.2 % Normal 13.2-45.0 Laboratory test finding 11/07/2020 [place] [address] [phone] Ferritin 207 NG/ML Normal 8-252 1 ASSAY INFORMATION: Real Time RT-PCR or TMA. Both RT-PCR and TMA are nucleic acid amplification tests (NAAT) which are molecular testing modalities and recommended by the CDC for passenger travel. Testing and International Air Travel, cdc.gov/coronavirus/2019-ncov/travelers/ojnaujc-wrd-ccqjpn.html 09/01/2020 NOTE: The COVID-19 assay is under Emergency Use Authorization (EUA) by the U.S. Food and Drug Administration. [facility] and [facility] are designated as high complexity laboratories by the Clinical Laboratory Improvement Amendments of 1988 (CLIA) and are qualified to perform this test. Not Detected 2 Units are mL/min/1.73 m2 Chronic Kidney Disease Staging per NKF: Stage I & II GFR >=60 Normal to Mildly Decreased Stage III GFR 30-59 Moderately Decreased Stage IV GFR 15-29 Severely Decreased Stage V GFR <15 Very Little GFR Left ESRD GFR <15 on ROTOR ASSEMBLER 3 THE CEA ASSAY IS PERFORMED O N THE CytooAUR BY CHEMILUMINESCENCE AND SHOULD NOT BE COMPARED INTERCHANGEABLY WITH OTHER METHODS. IT SHOULD NOT BE USED ALONE A SCREENING TEST OR DIAGNOSIS FOR THE PRESENCE OR ABSENCE OF MALIGNANT DISEASE. PREDICTIONS OF DISEASE RECURRENCE SHOULD NOT BE BASED SOLELY ON VALUES OBTAINED FROM SERIAL PATIENT SERUM VALUES. 4 TRANSFUSED PRODUCT: PACKED C ELLS COUNT: 3 5 Units are mL/min/1.73 m2 Chronic Kidney Disease Staging per NKF: Stage I & II GFR >=60 Normal to Mildly Decreased Stage III GFR 30-59 Moderately Decreased Stage IV GFR 15-29 Severely Decreased Stage V GFR <15 Very Little GFR Left ESRD GFR <15 on ROTOR ASSEMBLER 6 TRANSFUSED PRODUCT: PACKED C ELLS COUNT: 1 7 Negative results do not prec lude influenza or RSV virus infection and should not be used as the sole basis for treatment or other patient management decisions. 8 Negative results do not prec lude influenza or RSV virus infection and should not be used as the sole basis for treatment or other patient management decisions. 9 Negative results do not prec lude influenza or RSV virus infection and should not be used as the sole basis for treatment or other patient management decisions. 10 A false negative result may occur if [...] pathogens. DISCLAIMER: Testing was performed using the [facility] SARS-CoV-2 test. This test was developed and its performance characteristics determined by [facility]. This test has not been FDA cleared [...] the authorization is terminated or revoked sooner. 11 [facility] currently reports eGFR in compliance [...] Little GFR Left ESRD GFR <15 on ROTOR ASSEMBLER 17 THE CEA ASSAY IS PERFORMED O N THE CytooAUR BY CHEMILUMINESCENCE AND SHOULD NOT BE COMPARED [...] Little GFR Left ESRD GFR <15 on ROTOR ASSEMBLER 20 TRANSFUSED PRODUCT: PACKED C ELLS COUNT: [...] Little GFR Left ESRD GFR <15 on R[employer]OR ASSEM[employer]ER 23 Units are mL/min/1.73 m2 Chronic Kidney Disease Staging per NKF: Stage I & II GFR >=60 Normal to Mildly Decreased Stage III GFR 30-59 Moderately Decreased Stage IV GFR 15-29 Severely Decreased Stage V GFR <15 Very Little GFR Left ESRD GFR <15 on ROTOR ASSEMBLER 24 ASSAY INFORMATION: Real Time RT-PCR NOTE: The COVID-19 assay has been cleared by the U.S. Food and Drug Administration under the Emergency Use Authorization (EUA). [facility] and [facility] are designated as high complexity laboratories by [...] Little GFR Left ESRD GFR <15 on ROTOR ASSEMBLER 27 Y/N query for Sepsis Lactate Rule: [...] 31 Troponin I Reference Interva l for Siemens [place] LOCI: 99th Percentile= 0.00-0.045 ng/ml Risk Stratification: [...] Little GFR Left ESRD GFR <15 on [employer] 33 THERAPUTIC HUMAN INR VALUES INDICATIONS NORMAL [...] Little GFR Left ESRD GFR <15 on [employer] Procedures Date Code Description Status 03/28/2021 [id number] [place] [facility] W/I 7 Days Of DC, Comm W/I 2 Dys Completed 03/23/2021 [id number] Office/Outpatient Established Mo d MDM 30-39 Min Completed 03/23/2021 [id number] Diabetic Foot Exam Completed 01/25/2021 [id number] [place] [facility] W/I 7 Days Of DC, Comm W/I 2 Dys Completed 12/27/2020 [id number] Office/Outpatient Established Mo d MDM 30-39 Min Completed 12/19/2020 [id number] Office/Outpatient Established Mo d MDM 30-39 Min Completed 12/02/2020 [id number] [place] [facility] W/I 7 Days Of DC, Comm W/I 2 Dys Completed Medical Devices Description No Information Available Encounters Type Date Location Provider Dx Diagnosis Office Visit 03/28/2021 11:45a Main Office PlegudeliaachStevey, REF[employer]NACE DESIGNER D64.9 Anemia, unspecified K29.61 Other gastritis with bleedin g Office Visit 03/23/2021 3:45p Main Office Pleskach, Nadiya, [employer] DESIGNER E11.6 9 Type 2 diabetes mellitus with other specified complication C18.9 Malignant neoplasm of colon, unspecified 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 E78.2 Mixed hyperlipidemia I10 Essential (primary) hyperten yara I48.91 Unspecified atrial fibrillat ion D64.9 Anemia, unspecified Office Visit 01/25/2021 2:15p Main Office Pleskach, Nadiya, [employer] DESIGNER D64.9 Anemia, unspecified K29.61 Other gastritis with bleedin g Office Visit 12/27/2020 3:45p Main Office Anitha Gamez M.D. 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 D64.9 Anemia, unspecified Office Visit 12/19/2020 2:15p Main Office Pleskach, Nadiya, [employer] DESIGNER E11.6 9 Type 2 diabetes mellitus with other specified complication E78.2 Mixed hyperlipidemia I10 Essential (primary) hyperten yara 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 C18.9 Malignant neoplasm of colon, unspecified I48.91 Unspecified atrial fibrillat ion Office Visit 12/02/2020 10:30a Main Office PlegudeliaachStevey, REF[employer]NACE DESIGNER D64.9 Anemia, unspecified E11.69 Type 2 diabetes mellitus wit h other specified complication E78.2 Mixed hyperlipidemia I10 Essential (primary) hyperten yara 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 C18.9 Malignant neoplasm of colon, unspecified I48.91 Unspecified atrial fibrillat ion Assessments Date Code Description Provider 03/28/2021 D64.9 Anemia, unspecified PlegudeliaachDeejay, RE[employer] DESIGNER 03/28/2021 K29.61 Other gastritis with bleeding Pl Nadiya hogan, RE[employer] F[employer]CE DESIGNER 03/23/2021 E11.69 Type 2 diabetes mellitus with ot her specified complication PleNadiya tracey, RE[employer] F[employer]NA[employer] DESIGNER 03/23/2021 C18.9 Malignant neoplasm of colon, uns pecified Plegudeliaach, Nadiya, RE[employer] F[employer]NACE DESIGNER 03/23/2021 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 Plealexy Nadiya , RE[employer] F[employer]NACE DESIGNER 03/23/2021 E78.2 Mixed hyperlipidemia Pleskzulma, M jarocho, [employer] F[employer]NA[employer] DESIGNER 03/23/2021 I10 Essential (primary) hypertension Pleskach Nadiya, REF[employer] F[employer]NACE DESIGNER 03/23/2021 I48.91 Unspecified atrial fibrillation Pleskach, Nadiya, RE[employer] F[employer]NACE DESIGNER 03/23/2021 D64.9 Anemia, unspecified Pleskach, Mo lly, [employer]NA[employer] DESIGNER 01/25/2021 D64.9 Anemia, unspecified Pleskach, Mo lly, [employer] F[employer]NACE DESIGNER 01/25/2021 K29.61 Other gastritis with bleeding Pl kelangelakatie Nadiya, RE[employer] F[employer]NACE DESIGNER 12/27/2020 E11.69 Type 2 diabetes mellitus with ot her specified complication Anitha Gamez M.D. 12/27/2020 C18.9 Malignant neoplasm of colon, uns pecified Anitha Gamez M.D. 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 12/27/2020 D64.9 Anemia, unspecified Angela Gamez M.D. 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 Plealexy Nadiya , [employer] F[employer]NA[employer] DESIGNER 12/19/2020 C18.9 Malignant neoplasm of colon, uns pecified Pleskach Nadiya, RE[employer]NA[employer] DESIGNER 12/19/2020 I48.91 Unspecified atrial fibrillation Pleskach Nadiya, RE[employer]NACE DESIGNER 12/02/2020 D64.9 Anemia, unspecified Pleskach, Mo lly, RE[employer]NA[employer] DESIGNER 12/02/2020 E11.69 Type 2 diabetes mellitus with ot her specified complication Pleskach, Nadiya, RE[employer] F[employer]NACE DESIGNER 12/02/2020 E78.2 Mixed hyperlipidemia Pleskach, M jarocho, REFRA[employer] F[employer]NACE DESIGNER 12/02/2020 I10 Essential (primary) hypertension Pleskach, Nadiya, RE[employer] F[employer]NACE DESIGNER 12/02/2020 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
--- OUTSIDE RECORDS SUMMARY | 2021-05-23 16:58 | CCD | Continuity of Care Document ---
Author Author Meron PERALTA M.D. Organization Unknown Address [address], [address] [place] [address] Phone [phone] Care Team Providers Care Library Services Coordinator Name Role Phone Naila Lambert M.D. AUTM [phone] Nadiya Bryan N.P. AUTM [phone] Niels Decker MD AUTM [phone] Problems Active Problems Provider Date Essential hypertension Beau Mcmahon MD Onset: 12/11/2016 Impacted cerumen Beau Mcmahon MD Onset: 12/11/2017 Sensorineural hearing loss, bilateral Beau Mcmahon MD On set: 12/11/2017 Social History Type Date Description Comments Sex Unknown Tobacco Use Start: Unknown Never Smoked Cigarettes Smokeless Tobacco Never Used Smokeless Tobacco ETOH Use Denies alcohol use Recreational Drug Use Denies Drug Use Tobacco Use Start: Unknown Non Smoker Allergies and adverse reactions Description No Known Drug Allergies Medications Active Medications SIG Qnty Indications Ordering Provide r Date Pantoprazole Sodium 40mg Tablets D R twice daily -- one tablet in morning 1/2 hour before breakfast and one tablet prior to bedtime. taper after total 8 weeks course. 60tabs Tanya Peralta M.D. 02/21/2021 Sucralfate 1GM/10ML Suspension Take 10 milliliters by mouth half an hour before meals (3 times daily). 840ml D62 Martin Cavazos MD 01/04/2021 Furosemide 40mg Tablets 1tab po qd Unknown Miralax 17GM/Scoop Powder 17g m qd Unknown Pataday 0.1% Solution bid Unknown Docusate Sodium 100mg Capsules 1cap po bid Unknown Alendronate Sodium 70mg Tablets 1tab po qwk Unknown Tylenol 8 Hour Arthritis Pain 650mg Tablets ER 1tab po qd Unknown Atorvastatin Calcium 20mg Tablets 1tab po qd Unknown Potassium Chloride ER 20Meq Tablet s ER 1tab po qd Unknown Metoprolol Succinate ER 50mg Tablets ER 24HR 1tab po qd Unknown Diltiazem HCL ER Beads 240mg Caps ER 24HR 1tab po qd Unknown Eliquis 2.5mg Tablets (on hold 01/04/21) 1tab po bid Unknown Citracal Plus Tablets 2tab p o qd Unknown Metformin HCL 500mg Tablets 1tab po qd Unknown Glimepiride 1mg Tablets 1/2ta b po prn Unknown History Medications Omeprazole 20mg Capsules DR twice daily -- 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 60caps D62 Jeff Peralta M.D. 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 (taper off after 6 weeks) 30jarad Peralta M.D. 06/2021 - 01/04/2021 Immunizations Description No Information Available Vital Signs Date Vital Result Comment 03/01/2021 1:37pm BP Systolic 112 mmHg BP Diastolic 58 mmHg Height 61 inches 5'1" Weight 116.00 lb BMI (Body Mass Index) 21.9 kg/m2 Loda Body Weight 105 lb Weight 52.618 kg BSA (Body Surface Area) 1.50 m2 01/04/2021 3:07pm BP Systolic 128 mmHg BP Diastolic 76 mmHg Height 61 inches 5'1" Weight 106.00 lb BMI (Body Mass Index) 20.0 kg/m2 Loda Body Weight 105 lb Weight 48.082 kg BSA (Body Surface Area) 1.44 m2 Results Test Acquired Date Facility Test Result H/L Range Note Laboratory test finding 02/27/2021 [facility] Main Lab [address] [place] [address] [phone] Blood Urea Nitrogen 26 mg/dL High 7-18 Creatinine With GFR 02/27/2021 [facility] Main Lab [address] [place] [address] [phone] Creatinine For GFR 0.76 mg/dL Normal 0.55-1.30 Glomerular Filtration Rate > 60.0 Normal >32 1 Total Iron Binding Capacit 02/27/2021 [facility] Main Lab [address] [place] [address] [phone] Iron (Fe) 79 g/dL Normal 50-170 Total Iron Binding Capacity 384 g/dL Normal 250-450 Percent Saturation 20.6 % Normal 13.2-45.0 Laboratory test finding 02/27/2021 [facility] Main Lab [address] [place] [address] [phone] Ferritin 1039 NG/ML High 8-252 CBC With Differential 02/27/2021 [facility] Main Lab [address] [place] [address] [phone] White Blood Count 6.0 10 Normal 4.0-10.0 [...] 36.0-66.0 Lymph % 4.7 % Low 24.0-44.0 [place] % 11.6 % High 2.0-8.0 Eos % 0.5 % Normal 0.0-3.0 Baso % 0.3 % Normal 0.0-1.0 Immature Granulocyte % 0.8 % Normal 0-3.0 Nucleated Red Blood Cell % 0.3 % High 0-0 Neutrophils # 4.9 10 Normal 1.5-8.5 Lymph # 0.3 10 Low 1.5-5.0 [place] # 0.7 10 Normal 0.0-0.8 Eos # 0.0 10 Normal 0.0-0.5 Baso # 0.0 10 Normal 0.0-0.2 1 Units are mL/min/1.73 m2 Chronic Kidney Disease Staging per NKF: Stage I & II GFR >=60 Normal to Mildly Decreased Stage III GFR 30-59 Moderately Decreased Stage IV GFR 15-29 Severely Decreased Stage V GFR <15 Very Little GFR Left ESRD GFR <15 on [employer]ANTING [employer]ER Procedures Date Code Description Status 04/14/2021 42576 Endoscopy Upper GI W/ Ablation O f Tumors/Polyps/Lesions Completed 04/14/2021 44669 Endoscopy Upper GI Control Hemor rhage Completed 03/01/2021 29875 Office/Outpatient Established Lo w MDM 20-29 Min Completed 01/20/2021 41632 Endoscopy Upper GI W/ Ablation O f Tumors/Polyps/Lesions Completed 01/20/2021 07516 Endoscopy Upper GI Control Hemor rhage Completed 01/04/2021 02483 Office/Outpatient Established Mo d MDM 30-39 Min Completed 10/24/2020 36877 Colonoscopy Thru Stoma W/Biopsy Completed 10/24/2020 21314 Endoscopy Upper GI Biopsy Comple natalie [employer] Description No Information Available Encounters Type Date Location Provider Dx Diagnosis Office Visit 03/01/2021 1:00p [facility] Pra dean Peralta M.D. D62 Acute posthemorrhagic anemia K31.811 Angiodysplasia of stomach an d duodenum with bleeding K92.1 Melena Office Visit 01/04/2021 2:00p [facility] Pra dean Peralta M.D. 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 04/14/2021 K31.811 Angiodysplasia of stomach and du odenum with bleeding Jeff Peralta M.D. 03/01/2021 D62 Acute posthemorrhagic anemia Grace Peralta M.D. 03/01/2021 K31.811 Angiodysplasia of stomach and du odenum with bleeding Jeff Peralta M.D. 03/01/2021 K92.1 Melena Jeff Ambriz ala, M.D. 01/20/2021 D62 Acute posthemorrhagic anemia Grace Peralta M.D. 01/20/2021 K22.8 Other specified diseases of esop hagus Jeff Peralta M.D. 01/20/2021 K31.811 Angiodysplasia of stomach and du odenum with bleeding Jeff Peralta M.D. 01/04/2021 D62 Acute posthemorrhagic anemia Grace Peralta M.D. 01/04/2021 K92.1 Melena Jeff Ambriz ala, M.D. 01/04/2021 Z98.0 Intestinal bypass and anastomosi s status Jeff Peralta M.D. 10/24/2020 K92.1 Melena Jeff Ambriz ala, M.D. 10/24/2020 D62 Acute posthemorrhagic anemia Grace Peralta M.D. 10/24/2020 K63.89 Other specified diseases of inte kristian Jeff Peralta M.D. 10/24/2020 K57.30 Diverticulosis of la rge intestine without perforation or abscess without bleeding Jeff Peralta M.D. 10/24/2020 Z98.0 Intestinal bypass and anastomosi s status Jeff Peralta M.D. 10/24/2020 K21.00 Gastro-esophageal re flux disease with esophagitis, without bleeding Jeff Peralta M.D. 10/24/2020 K29.70 Gastritis, unspecified, without bleeding Jeff Peralta M.D. Plan of Treatment Future Appointment(s):* 04/19/2021 1:55 pm - Jeff Peralta M.D. at [facility] Functional Status Description No Information Available Mental Status Description No Information Available Referrals Refer to Dr Reason for Referral Status Appt Date Jeff Peralta M.D. ANEMIA Scheduled 01/17 [facility] [address], [address] [place] [address] [phone]
--- OUTSIDE RECORDS SUMMARY | 2021-05-23 16:58 | CCD | Continuity of Care Document ---
Author Author Meron BRYAN INSURANCE ASSOCIATE Organization Unknown Address [address] [place] [address] Phone [phone] Care Team Providers Care Therapeutic Massage Technician Name Role Phone [facility] AUTM [phone] Niels Decker M.D. AUTM [phone] [facility] AUTM Jeff Cramer AUTM [phone] Problems Active Problems Provider Date Type 2 [...] Yes Allergies, Adverse Reactions, Alerts Active Allergies Criticality Reaction | Severity Comments [...] on an empty stomach 12tabs Deejay Bryan INSURANCE ASSOCIATE 09/07/2020 Adapt Lubricating Deodorant Liqui d Use as Directed Store 6 236units C18.9 Nadiya Bryan FNP 06/16/2020 Z93.2 [place] Remover Wipes Misc use 3-4 wipes every 4 days and as needed when changing ostomy 2Box Z93.2 Nadiya Bryan FNP 06/16/2020 C18.9 Efren Adapt Ceraing change every 4-5 days and as needed ref #[id number] 20units Nadiya Bryan FNP 05/05/2020 Efren 2 Piece Ostomy Skin Barrier ref # [id number] márquez ge every 4-5 days and as needed 20units C18.9 Nadiya Bryan INSURANCE ASSOCIATE 04/14/2020 Z93.2 Efren 2 Piece Drainable Ostomy Pouch ref # [id number] c hange every 4-5 days and as needed 20units C18.9 Nadiya Bryan INSURANCE ASSOCIATE 04/14/2020 Z93.2 Diltiazem HCL ER Beads 240mg [...] Protonix 40mg Tablets DR 1 by mouth bid Unknown History Medications Protonix 40mg Tablets DR 1 [...] CPT Code Status Date Vaccine Lot # 35112 Refused 04/17/2016 Pneumococcal Vaccine 32770 Refused 04/17/2016 Prevnar 13 57802 Refused 04/17/2016 Influenza Vaccination Vital Signs Date Vital Result Comment 03/28/2021 11:51am BP Systolic 113 mmHg BP Diastolic 83 mmHg Heart Rate 127 /min Body Temperature 98.0 F Respiratory Rate 18 /min Height 61.5 inches 5'1.50" Weight 114.38 lb O2 % BldC Oximetry 100 % [place] Body Weight 105 lb BMI (Body Mass Index) 21.3 kg/m2 03/23/2021 3:47pm BP Systolic 110 mmHg BP Diastolic 62 mmHg Heart Rate 64 /min Body Temperature 98.7 F Respiratory Rate 16 /min Height 61.5 inches 5'1.50" Weight 116.38 lb O2 % BldC Oximetry 99 % [place] Body Weight 105 lb BMI (Body Mass Index) 21.6 kg/m2 Results Test Acquired Date Facility Test Result H/L Range Note CBC With Differential 04/12/2021 [place] [address] [phone] White Blood Count 4.6 10 Normal 4.0-10.0 [...] 36.0-66.0 Lymph % 6.6 % Low 24.0-44.0 Gallia % 9.4 % High 2.0-8.0 Eos % 0.9 % Normal 0.0-3.0 Baso % 0.2 % Normal 0.0-1.0 Immature Granulocyte % 0.4 % Normal 0-3.0 Nucleated Red Blood Cell % 0.0 % Normal 0-0 Neutrophils # 3.8 10 Normal 1.5-8.5 Lymph # 0.3 10 Low 1.5-5.0 Gallia # 0.4 10 Normal 0.0-0.8 Eos # 0.0 10 Normal 0.0-0.5 Baso # 0.0 10 Normal 0.0-0.2 Coronavirus 2019 Nasopharygeal 04/10/2021 [place] [address] [phone] Coronavirus 2019 Nasopharygeal ASSAY INFORMATIO <SEE N OTE> 1 Total Iron Binding Capacit 04/07/2021 [place] [address] [phone] Iron (Fe) 48 g/dL Low 50-170 Total Iron Binding Capacity 353 g/dL Normal 250-450 Percent Saturation 13.6 % Normal 13.2-45.0 Laboratory test finding 04/07/2021 [place] [address] [phone] Carcinoembryonic Antigen < 0.5 NG/ML Normal <2.5 2 Ferritin 66 NG/ML Normal 8-252 CBC With Differential 04/07/2021 Patient Service Ce nter [place] [id number] [phone] White Blood Count 3.4 10 Low 4.0-10.0 [...] 36.0-66.0 Lymph % 8.5 % Low 24.0-44.0 Gallia % 10.9 % High 2.0-8.0 Eos % 0.9 % Normal 0.0-3.0 Baso % 0.6 % Normal 0.0-1.0 Immature Granulocyte % 0.6 % Normal 0-3.0 Nucleated Red Blood Cell % 0.0 % Normal 0-0 Neutrophils # 2.7 10 Normal 1.5-8.5 Lymph # 0.3 10 Low 1.5-5.0 Gallia # 0.4 10 Normal 0.0-0.8 Eos # 0.0 10 Normal 0.0-0.5 Baso # 0.0 10 Normal 0.0-0.2 Laboratory test finding 04/07/2021 [place] [address] [phone] Packed Cells TRANSFUSED PRODU <SEE NOTE> 3 Type & Screen -Incl Blood Type,Tye,AB SC 04/07/2021 [place] [address] [phone] Blood Type O POSITIVE Normal AB Screen (Indirect Farooq)Vis NEGATIVE Normal Comprehensive Metabolic Profil 04/07/[address] [place] [address] [phone] Glucose, Fasting 184 mg/dL High 70-100 Blood [...] 1.2-2.2 Comprehensive Metabolic Profil 03/24/[address] [place] [address] [phone] Glucose, Fasting 96 mg/dL Normal 70-100 Blood [...] RSV Covid Amp 03/24/2021 [place] [address] [phone] Influenza A Amplification NEGATIVE Normal Negati ve 6 Influenza B Amplification NEGATIVE Normal Negative 7 RSV Amplification NEGATIVE Normal Negative 8 Sars Covid-19 Amplification NEGATIVE Normal Negative 9 Laboratory test finding 03/24/2021 [place] [address] [phone] Packed Cells TRANSFUSED PRODU <SEE NOTE> 10 CBC With Differential 03/24/2021 [place] [address] [phone] White Blood Count 4.6 10 Normal 4.0-10.0 [...] 36.0-66.0 Lymph % 6.2 % Low 24.0-44.0 Gallia % 11.4 % High 2.0-8.0 Eos % 0.4 % Normal 0.0-3.0 Baso % 0.4 % Normal 0.0-1.0 Immature Granulocyte % 0.4 % Normal 0-3.0 Nucleated Red Blood Cell % 0.7 % High 0-0 Neutrophils # 3.7 10 Normal 1.5-8.5 Lymph # 0.3 10 Low 1.5-5.0 Gallia # 0.5 10 Normal 0.0-0.8 Eos # 0.0 10 Normal 0.0-0.5 Baso # 0.0 10 Normal 0.0-0.2 Metabolic Panel (14), Comprehensive 03/17/2021 [facility] [address] [place], [place] [id number] [phone] Calcium 9.5 mg/dL 8.7-10.3 Glucose 81 mg/dL [...] IU/L 0-32 Lipid Panel 03/17/2021 [facility] [address] [place] [address] [phone] Cholesterol, Total 123 mg/dL 100-199 Triglycerides 141 mg/dL 0-149 HDL Cholesterol 37 mg/dL Low >39 VLDL Cholesterol Mark 25 mg/dL 5-40 LDL Chol Calc (Nih) 61 mg/dL 0-99 Comment: TNP Hemoglobin A1c 03/17/2021 [facility] [address] [place] [address] [phone] Hemoglobin A1c 4.8 % 4.8-5.6 13 Albumin/Creatinine Ratio, Random Urine 03/17/2021 [facility] [address] [place] [address] [phone] Creatinine, Urine 120.2 mg/dL Not Estab. Albumin, Urine 20.1 ug/mL Not Estab. Alb/Creat Ratio 17 mg/gcreat 0-29 14 Laboratory test finding 03/14/2021 [place] [address] [phone] Packed Cells TRANSFUSED PRODU <SEE NOTE> 15 CBC With Differential 03/14/2021 Patient Service Ce nter [place] [id number] [phone] White Blood Count 4.0 10 Normal 4.0-10.0 [...] 36.0-66.0 Lymph % 6.8 % Low 24.0-44.0 Gallia % 9.3 % High 2.0-8.0 Eos % 1.0 % Normal 0.0-3.0 Baso % 0.8 % Normal 0.0-1.0 Immature Granulocyte % 0.3 % Normal 0-3.0 Nucleated Red Blood Cell % 0.0 % Normal 0-0 Neutrophils # 3.3 10 Normal 1.5-8.5 Lymph # 0.3 10 Low 1.5-5.0 Gallia # 0.4 10 Normal 0.0-0.8 Eos # 0.0 10 Normal 0.0-0.5 Baso # 0.0 10 Normal 0.0-0.2 Type & Screen -Incl Blood Type,Tye,AB SC 03/14/2021 [place] [address] [phone] Blood Type O POSITIVE Normal AB Screen (Indirect Farooq)Vis NEGATIVE Normal CBC With Differential 03/10/2021 [place] [address] [phone] White Blood Count 3.4 10 Low 4.0-10.0 [...] 36.0-66.0 Lymph % 7.6 % Low 24.0-44.0 Gallia % 12.9 % High 2.0-8.0 Eos % 1.2 % Normal 0.0-3.0 Baso % 0.6 % Normal 0.0-1.0 Immature Granulocyte % 0.3 % Normal 0-3.0 Nucleated Red Blood Cell % 0.0 % Normal 0-0 Neutrophils # 2.6 10 Normal 1.5-8.5 Lymph # 0.3 10 Low 1.5-5.0 Gallia # 0.4 10 Normal 0.0-0.8 Eos # 0.0 10 Normal 0.0-0.5 Baso # 0.0 10 Normal 0.0-0.2 Comprehensive Metabolic Profil 03/10/2021 [place] [address] [phone] Glucose, Fasting 166 mg/dL High 70-100 Blood [...] Binding Capacit 03/10/2021 Patient Serv[facility] [place] [id number] [phone] Iron (Fe) 72 g/dL Normal 50-170 Total Iron Binding Capacity 352 g/dL Normal 250-450 Percent Saturation 20.5 % Normal 13.2-45.0 Laboratory test finding 03/10/2021 [place] [address] [phone] Carcinoembryonic Antigen < 0.5 NG/ML Normal <2.5 17 Ferritin 492 NG/ML High 8-252 Laboratory test finding 02/28/2021 [place] [address] [phone] Packed Cells TRANSFUSED PRODU <SEE NOTE> 18 Type & Screen -Incl Blood Type,Tye,AB SC 02/28/2021 [place] [address] [phone] Blood Type O POSITIVE Normal AB Screen (Indirect Farooq)Vis NEGATIVE Normal Creatinine With GFR 02/27/2021 Patient Service [facility] [place] [address] [phone] Creatinine For GFR 0.76 mg/dL Normal 0.55-1.30 Glomerular Filtration Rate > 60.0 Normal >32 1 9 CBC With Differential 02/27/2021 [place] [address] [phone] White Blood Count 6.0 10 Normal 4.0-10.0 [...] 36.0-66.0 Lymph % 4.7 % Low 24.0-44.0 Gallia % 11.6 % High 2.0-8.0 Eos % 0.5 % Normal 0.0-3.0 Baso % 0.3 % Normal 0.0-1.0 Immature Granulocyte % 0.8 % Normal 0-3.0 Nucleated Red Blood Cell % 0.3 % High 0-0 Neutrophils # 4.9 10 Normal 1.5-8.5 Lymph # 0.3 10 Low 1.5-5.0 Gallia # 0.7 10 Normal 0.0-0.8 Eos # 0.0 10 Normal 0.0-0.5 Baso # 0.0 10 Normal 0.0-0.2 Laboratory test finding 02/27/2021 [place] [address] [phone] Ferritin 1039 NG/ML High 8-252 Total Iron Binding Capacit 02/27/2021 Patient Servi ce Center [place], [place] [address] [phone] Iron (Fe) 79 g/dL Normal 50-170 Total Iron Binding Capacity 384 g/dL Normal 250-450 Percent Saturation 20.6 % Normal 13.2-45.0 Laboratory test finding 02/27/2021 Patient [facility] [place], [place] [id number] [phone] Blood Urea Nitrogen 26 mg/dL High 7-18 Laboratory test finding 02/10/2021 [place] [address] [phone] Packed Cells TRANSFUSED PRODU <SEE NOTE> 20 Type & Screen -Incl Blood Type,Tye,AB SC 02/10/2021 [place] [address] [phone] Blood Type O POSITIVE Normal AB Screen (Indirect Farooq)Vis NEGATIVE Normal CBC With Differential 02/09/2021 [place] [address] [phone] White Blood Count 3.9 10 Low 4.0-10.0 [...] 36.0-66.0 Lymph % 7.2 % Low 24.0-44.0 Gallia % 10.0 % High 2.0-8.0 Eos % 1.0 % Normal 0.0-3.0 Baso % 0.5 % Normal 0.0-1.0 Immature Granulocyte % 0.5 % Normal 0-3.0 Nucleated Red Blood Cell % 0.0 % Normal 0-0 Neutrophils # 3.1 10 Normal 1.5-8.5 Lymph # 0.3 10 Low 1.5-5.0 Gallia # 0.4 10 Normal 0.0-0.8 Eos # 0.0 10 Normal 0.0-0.5 Baso # 0.0 10 Normal 0.0-0.2 Laboratory test finding 01/27/2021 [place] [address] [phone] Ferritin 39 NG/ML Normal 8-252 Carcinoembryonic Antigen 0.5 NG/ML Normal <2.5 21 Total Iron Binding Capacit 01/27/2021 [place] [address] [phone] Iron (Fe) 59 g/dL Normal 50-170 Total Iron Binding Capacity 397 g/dL Normal 250-450 Percent Saturation 14.9 % Normal 13.2-45.0 CBC With Differential 01/27/2021 [place] [address] [phone] White Blood Count 4.2 10 Normal 4.0-10.0 [...] 36.0-66.0 Lymph % 13.6 % Low 24.0-44.0 Gallia % 14.6 % High 2.0-8.0 Eos % 1.4 % Normal 0.0-3.0 Baso % 0.5 % Normal 0.0-1.0 Immature Granulocyte % 0.5 % Normal 0-3.0 Nucleated Red Blood Cell % 0.0 % Normal 0-0 Neutrophils # 2.9 10 Normal 1.5-8.5 Lymph # 0.6 10 Low 1.5-5.0 Gallia # 0.6 10 Normal 0.0-0.8 Eos # 0.1 10 Normal 0.0-0.5 Baso # 0.0 10 Normal 0.0-0.2 Comprehensive Metabolic Profil 01/27/[address] [place] [address] [phone] Glucose, Fasting 59 mg/dL Low 70-100 Blood [...] Normal 3.2-5.2 Albumin/Globulin Ratio 1.1 Low 1.2-2.2 Complete Blood Count 01/20/2021 [place] [address] [phone] White Blood Count 3.3 10 Low 4.0-10.0 [...] 0-0 Laboratory test finding 01/20/2021 [place] [address] [phone] Blood Urea Nitrogen 21 mg/dL High 7-18 Creatinine With GFR 01/20/2021 [place] [address] [phone] Creatinine For GFR 0.69 mg/dL Normal 0.55-1.30 Glomerular Filtration Rate > 60.0 Normal >32 2 3 Type & Screen -Incl Blood Type,Tye,AB SC 01/20/2021 [place] [address] [phone] Blood Type O POSITIVE Normal AB Screen (Indirect Farooq)Vis NEGATIVE Normal Coronavirus 2019 Nasopharygeal 01/16/2021 [place] [address] [phone] Coronavirus 2019 Nasopharygeal ASSAY INFORMATIO <SEE N OTE> 24 Type & Screen -Incl Blood Type,Tye,AB SC 01/03/2021 [facility] [place] [id number] [phone] Blood Type O POSITIVE Normal AB Screen (Indirect Farooq)Vis NEGATIVE Normal Laboratory test finding 01/03/2021 [facility] [place] [id number] [phone] Packed Cells TRANSFUSED PRODU <SEE NOTE> 25 CBC With Differential 01/02/2021 Patient Service Ce nter [place] [address]33553 [phone] White Blood Count 4.3 10 Normal 4.0-10.0 [...] 36.0-66.0 Lymph % 10.7 % Low 24.0-44.0 Gallia % 13.1 % High 2.0-8.0 Eos % 0.7 % Normal 0.0-3.0 Baso % 0.5 % Normal 0.0-1.0 Immature Granulocyte % 0.5 % Normal 0-3.0 Nucleated Red Blood Cell % 0.0 % Normal 0-0 Neutrophils # 3.2 10 Normal 1.5-8.5 Lymph # 0.5 10 Low 1.5-5.0 Gallia # 0.6 10 Normal 0.0-0.8 Eos # 0.0 10 Normal 0.0-0.5 Baso # 0.0 10 Normal 0.0-0.2 Comprehensive Metabolic Profil 01/02/2021 [place] [address] [phone] Glucose, Fasting 155 mg/dL High 70-100 Blood [...] Total Iron Binding Capacit 01/02/2021 [place] [address] [phone] Iron (Fe) 55 g/dL Normal 50-170 Total Iron Binding Capacity 398 g/dL Normal 250-450 Percent Saturation 13.8 % Normal 13.2-45.0 Laboratory test finding 01/02/2021 [place] [address] [phone] Thyroid Stimulating Hormone 1.660 uIU/ML Normal 0. 358-3.740 Free T4 0.87 ng/dL Normal 0.76-1.46 Ferritin 58 NG/ML Normal 8-252 Liver Profile 12/23/2020 [place] [address] [phone] Ast/Sgot 13 U/L Normal 7-37 Alt/SGPT 14 U/L Normal 12-78 Alkaline Phosphatase 95 U/L Normal 45-117 Bilirubin,Total 0.9 mg/dL Normal 0.2-1.0 Bilirubin,Direct 0.3 mg/dL High 0.0-0.2 Total Protein 6.5 GM/DL Normal 6.4-8.2 Albumin 3.4 GM/DL Normal 3.2-5.2 Albumin/Globulin Ratio 1.1 Low 1.2-2.2 Laboratory test finding 12/23/2020 [place] [address] [phone] Lipase 73 U/L Normal 73-393 Lactic Acid Sepsis Protocol 0.8 mmol/L Normal 0.4-2.0 27 PT & Aptt 12/23/2020 [place] [address] [phone] Prothrombin Time 13.3 seconds Normal 12.5-14.3 Inr 0.99 Normal 28 Partial Thromboplastin Time 29.5 seconds Normal 24.2-38.5 Istat Chem8+ Panel 12/23/2020 [place] [address] [phone] iSTAT HCT 33.0 % Low 38.0-51.0 iSTAT Glucose 94 mg/dL Normal 70-105 iSTAT Sodium 138 mEq/L Normal 136-145 iSTAT Potassium 4.2 mEq/L Normal 3.5-5.1 iSTAT CA++ 5.0 mg/dL Normal 4.5-5.3 iSTAT Chloride 102 mEq/L Normal 98-109 iSTAT Co2 27.0 MM/L Normal 23.0-27.0 iSTAT BUN 20 mg/dL Normal 8-26 iSTAT Creatinine 0.7 mg/dL Normal 0.6-1.3 Laboratory test finding 12/23/2020 [place] [address] [phone] iSTAT Troponin 0.01 NG/ML Normal 0.00-0.08 CBC With Differential 12/23/2020 [place] [address] [phone] White Blood Count 4.5 10 Normal 4.0-10.0 [...] 36.0-66.0 Lymph % 9.7 % Low 24.0-44.0 Gallia % 11.9 % High 2.0-8.0 Eos % 0.9 % Normal 0.0-3.0 Baso % 0.4 % Normal 0.0-1.0 Immature Granulocyte % 0.4 % Normal 0-3.0 Nucleated Red Blood Cell % 0.0 % Normal 0-0 Neutrophils # 3.5 10 Normal 1.5-8.5 Lymph # 0.4 10 Low 1.5-5.0 Gallia # 0.5 10 Normal 0.0-0.8 Eos # 0.0 10 Normal 0.0-0.5 Baso # 0.0 10 Normal 0.0-0.2 CBC With Differential 12/19/2020 Patient Service [place] 4763722 [phone] White Blood Count 3.8 10 Low 4.0-10.0 [...] 36.0-66.0 Lymph % 11.7 % Low 24.0-44.0 Gallia % 11.9 % High 2.0-8.0 Eos % 1.1 % Normal 0.0-3.0 Baso % 0.3 % Normal 0.0-1.0 Immature Granulocyte % 0.5 % Normal 0-3.0 Nucleated Red Blood Cell % 0.0 % Normal 0-0 Neutrophils # 2.8 10 Normal 1.5-8.5 Lymph # 0.4 10 Low 1.5-5.0 Gallia # 0.5 10 Normal 0.0-0.8 Eos # 0.0 10 Normal 0.0-0.5 Baso # 0.0 10 Normal 0.0-0.2 CBC With Differential 12/05/2020 Patient Service Ce er [facility] [place] [address] [phone] White Blood Count 3.4 10 Low 4.0-10.0 [...] 36.0-66.0 Lymph % 12.8 % Low 24.0-44.0 Gallia % 13.7 % High 2.0-8.0 Eos % 1.2 % Normal 0.0-3.0 Baso % 0.6 % Normal 0.0-1.0 Immature Granulocyte % 0.3 % Normal 0-3.0 Nucleated Red Blood Cell % 0.0 % Normal 0-0 Neutrophils # 2.4 10 Normal 1.5-8.5 Lymph # 0.4 10 Low 1.5-5.0 Gallia # 0.5 10 Normal 0.0-0.8 Eos # 0.0 10 Normal 0.0-0.5 Baso # 0.0 10 Normal 0.0-0.2 PT & Aptt 12/05/2020 [place] [address] [phone] Prothrombin Time 13.3 seconds Normal 12.5-14.3 Inr 0.99 Normal 29 Partial Thromboplastin Time 29.4 seconds Normal 24.2-38.5 Total Iron Binding Capacit 12/05/2020 [place] [address] [phone] Iron (Fe) 94 g/dL Normal 50-170 Total Iron Binding Capacity 350 g/dL Normal 250-450 Percent Saturation 26.9 % Normal 13.2-45.0 Laboratory test finding 12/05/2020 [place] [address] [phone] Ferritin 108 NG/ML Normal 8-252 Complete Blood Count 11/25/2020 [place] [address] [phone] White Blood Count 4.4 10 Normal 4.0-10.0 [...] -Incl Blood Type,Tye,AB SC 11/25/2020 [place] [address] [phone] Blood Type O POSITIVE Normal AB Screen (Indirect Farooq)Vis NEGATIVE Normal Laboratory test finding 11/25/2020 [place] [address] [phone] NT-Pro BNP 1795 pg/mL High <450 Cardiac Marker Panel 11/25/2020 [place] [address] [phone] CPK Creatine Phosphokinase 60 U/L Normal 26-19 2 CK-MB Value Mass 1.3 NG/ML Normal <3.6 MB/CK Relative Index 2.17 Normal < Or =4 30 Troponin I < 0.02 NG/ML Normal < 0.10 31 Comprehensive Metabolic Profil 11/25/2020 [address] [place], [place] [address]9900 [phone] Glucose, Fasting 110 mg/dL High 70-100 Blood [...] PT & Aptt 11/25/2020 [place] [address] [phone] Prothrombin Time 16.4 seconds High 12.5-14.3 Inr 1.29 Normal 33 Partial Thromboplastin Time 33.4 seconds Normal 24.2-38.5 CBC With Differential 11/07/2020 [place] [address] [phone] White Blood Count 3.2 10 Low 4.0-10.0 [...] 36.0-66.0 Lymph % 10.5 % Low 24.0-44.0 Gallia % 13.3 % High 2.0-8.0 Eos % 0.9 % Normal 0.0-3.0 Baso % 0.6 % Normal 0.0-1.0 Immature Granulocyte % 0.3 % Normal 0-3.0 Nucleated Red Blood Cell % 0.0 % Normal 0-0 Neutrophils # 2.4 10 Normal 1.5-8.5 Lymph # 0.3 10 Low 1.5-5.0 Gallia # 0.4 10 Normal 0.0-0.8 Eos # 0.0 10 Normal 0.0-0.5 Baso # 0.0 10 Normal 0.0-0.2 Comprehensive Metabolic Profil 11/07/[address] [place] [address] [phone] Glucose, Fasting 142 mg/dL High 70-100 Blood [...] 1.2-2.2 Total Iron Binding Capacit 11/07/2020 [place] [address] [phone] Iron (Fe) 43 g/dL Low 50-170 Total Iron Binding Capacity 302 g/dL Normal 250-450 Percent Saturation 14.2 % Normal 13.2-45.0 Laboratory test finding 11/07/2020 [place] [address] [phone] Ferritin 207 NG/ML Normal 8-252 CBC With Differential 10/21/2020 Patient Service Ce nter [facility] [place], [place] [address] [phone] White Blood Count 3.2 10 Low 4.0-10.0 Red Blood Count 3.09 10 Low 4.00-5.40 Hemoglobin 9.4 g/dL Low 12.0-15.5 Hematocrit 30.7 % Low 36.0-47.0 Mean Corpuscular Volume 99.4 fl High 80.0-96.0 Mean Corpuscular Hemoglobin 30.4 pg Normal 27.0-33.0 Mean Corpuscular HGB Conc 30.6 g/dL Low 32.0-36.5 Red Cell Distribution Width 17.7 % High 11.5-14.5 Platelet Count, Automated 263 10 Normal 150-450 Neutrophils % 71.3 % High 36.0-66.0 Lymph % 12.3 % Low 24.0-44.0 Gallia % 13.0 % High 2.0-8.0 Eos % 2.2 % Normal 0.0-3.0 Baso % 0.6 % Normal 0.0-1.0 Immature Granulocyte % 0.6 % Normal 0-3.0 Nucleated Red Blood Cell % 0.0 % Normal 0-0 Neutrophils # 2.3 10 Normal 1.5-8.5 Lymph # 0.4 10 Low 1.5-5.0 Gallia # 0.4 10 Normal 0.0-0.8 Eos # 0.1 10 Normal 0.0-0.5 Baso # 0.0 10 Normal 0.0-0.2 1 ASSAY INFORMATION: Real Time RT-PCR or TMA. Both RT-PCR and TMA are nucleic acid amplification tests (NAAT) which are molecular testing modalities and recommended by the CDC for passenger travel. Testing and International Air Travel, cdc.gov/coronavirus/2019-ncov/travelers/rtuidvt-vri-rawcth.html 09/01/2020 NOTE: The COVID-19 assay is under Emergency Use Authorization (EUA) by the U.S. Food and Drug Administration. [facility] and [facility] are designated as high complexity laboratories by the Clinical Laboratory Improvement Amendments of 1988 (CLIA) and are qualified to perform this test. Not Detected 2 THE CEA ASSAY IS PERFORMED O N THE [employer] BY CHEMILUMINESCENCE AND SHOULD NOT BE COMPARED INTERCHANGEABLY WITH OTHER METHODS. IT SHOULD NOT BE USED ALONE A SCREENING TEST OR DIAGNOSIS FOR THE PRESENCE OR ABSENCE OF MALIGNANT DISEASE. PREDICTIONS OF DISEASE RECURRENCE SHOULD NOT BE BASED SOLELY ON VALUES OBTAINED FROM SERIAL PATIENT SERUM VALUES. 3 TRANSFUSED PRODUCT: PACKED C ELLS COUNT: 3 4 Units are mL/min/1.73 m2 Chronic Kidney Disease Staging per NKF: Stage I & II GFR >=60 Normal to Mildly Decreased Stage III GFR 30-59 Moderately Decreased Stage IV GFR 15-29 Severely Decreased Stage V GFR <15 Very Little GFR Left ESRD GFR <15 on SWITCH [employer] SUPERVISOR 5 Units are mL/min/1.73 m2 Chronic Kidney Disease Staging per NKF: Stage I & II GFR >=60 Normal to Mildly Decreased Stage III GFR 30-59 Moderately Decreased Stage IV GFR 15-29 Severely Decreased Stage V GFR <15 Very Little GFR Left ESRD GFR <15 on SW[employer] SUPERVISOR 6 Negative results do not prec lude [...] pathogens. DISCLAIMER: Testing was performed using the [facility] SARS-CoV-2 test. This test was developed and its performance characteristics determined by [facility]. This test has not been FDA cleared [...] Little GFR Left ESRD GFR <15 on [employer] SUPERVISOR 17 THE CEA ASSAY IS PERFORMED O N THE [employer] BY CHEMILUMINESCENCE AND SHOULD NOT BE COMPARED [...] Little GFR Left ESRD GFR <15 on SW[employer]AT[employer] SUPERVISOR 20 TRANSFUSED PRODUCT: PACKED C ELLS COUNT: 2 21 THE CEA ASSAY IS PERFORMED O N THE [employer] BY CHEMILUMINESCENCE AND SHOULD NOT BE COMPARED [...] Little GFR Left ESRD GFR <15 on SW[employer] SUPERVISOR 23 Units are mL/min/1.73 m2 Chronic Kidney Disease Staging per NKF: Stage I & II GFR >=60 Normal to Mildly Decreased Stage III GFR 30-59 Moderately Decreased Stage IV GFR 15-29 Severely Decreased Stage V GFR <15 Very Little GFR Left ESRD GFR <15 on SW[employer] SUPERVISOR 24 ASSAY INFORMATION: Real Time RT-PCR NOTE: The COVID-19 assay has been cleared by the U.S. Food and Drug Administration under the Emergency Use Authorization (EUA). [facility] and [facility] are designated as high complexity laboratories by [...] Little GFR Left ESRD GFR <15 on [employer]PERVISOR 27 Y/N query for Sepsis Lactate Rule: [...] 31 Troponin I Reference Interva l for [place] LOCI: 99th Percentile= 0.00-0.045 ng/ml Risk Stratification: [...] Little GFR Left ESRD GFR <15 on [employer] 33 THERAPUTIC HUMAN INR VALUES INDICATIONS NORMAL [...] Little GFR Left ESRD GFR <15 on [employer] Procedures Date Code Description Status 03/28/2021 [id number] [place] [facility] W/I 7 Days Of DC, Comm W/I 2 Dys Completed 03/23/2021 03088 Office/Outpatient Established Mo d MDM 30-39 Min Completed 03/23/2021 [id number] Diabetic Foot Exam Completed 01/25/2021 [id number] [facility] W/I 7 Days Of DC, Comm W/I 2 Dys Completed 12/27/2020 09163 Office/Outpatient Established Mo d MDM 30-39 Min Completed 12/19/2020 [id number] Office/Outpatient Established Mo d MDM 30-39 Min Completed 12/02/2020 [address]6779 [facility] W/I 7 Days Of DC, Comm W/I 2 Dys Completed Medical Devices Description No Information Available Encounters Type Date Location Provider Dx Diagnosis Office Visit 03/28/2021 11:45a Main Office Nadiya Bryan, INSURANCE ASSOCIATE D64.9 Anemia, unspecified K29.61 Other gastritis with bleedin g Office Visit 03/23/2021 3:45p Main Office Nadiya Bryan, INSURANCE ASSOCIATE E11.6 9 Type 2 diabetes mellitus with other specified complication C18.9 Malignant neoplasm of colon, unspecified 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 E78.2 Mixed hyperlipidemia I10 Essential (primary) hyperten yara I48.91 Unspecified atrial fibrillat ion D64.9 Anemia, unspecified Office Visit 01/25/2021 2:15p Main Office Nadiya Bryan, INSURANCE ASSOCIATE D64.9 Anemia, unspecified K29.61 Other gastritis with bleedin g Office Visit 12/27/2020 3:45p Main Office Anitha Gamez M.D. 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 D64.9 Anemia, unspecified Office Visit 12/19/2020 2:15p Main Office PlegudeliaachNadiya, INSURANCE ASSOCIATE E11.6 9 Type 2 diabetes mellitus with other specified complication E78.2 Mixed hyperlipidemia I10 Essential (primary) hyperten yara 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 C18.9 Malignant neoplasm of colon, unspecified I48.91 Unspecified atrial fibrillat ion Office Visit 12/02/2020 10:30a Main Office PlegudeliaachNadiya, INSURANCE ASSOCIATE D64.9 Anemia, unspecified E11.69 Type 2 diabetes mellitus wit h other specified complication E78.2 Mixed hyperlipidemia I10 Essential (primary) hyperten yara 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 C18.9 Malignant neoplasm of colon, unspecified I48.91 Unspecified atrial fibrillat ion Assessments Date Code Description Provider 03/28/2021 D64.9 Anemia, unspecified [place]lesk[place], Mo lly, [facility] 03/28/2021 K29.61 Other gastritis with bleeding Pl eskach, Nadiya, INSURANCE ASSOCIATE 03/23/2021 E11.69 Type 2 diabetes mellitus with ot her specified complication Plesk[place], Nadiya, INSURANCE ASSOCIATE 03/23/2021 C18.9 Malignant neoplasm of colon, uns pecified Pleskach, Ndaiya, INSURANCE ASSOCIATE 03/23/2021 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 Pleskach, Nadiya , INSURANCE ASSOCIATE 03/23/2021 E78.2 Mixed hyperlipidemia Pleskach, M jarocho, INSURANCE ASSOCIATE 03/23/2021 I10 Essential (primary) hypertension Pleskach, Nadiya, INSURANCE ASSOCIATE 03/23/2021 I48.91 Unspecified atrial fibrillation Pleskach, Nadiya, INSURANCE ASSOCIATE 03/23/2021 D64.9 Anemia, unspecified Pleskach, Mo lly, [facility] 01/25/2021 D64.9 Anemia, unspecified Pleskach, Mo lly, INSURANCE ASSOCIATE 01/25/2021 K29.61 [address] gastritis with bleeding Pl eskach, Nadiya, INSURANCE ASSOCIATE 12/27/2020 E11.69 Type 2 diabetes mellitus with ot her specified complication Anitha Gamez M.D. 12/27/2020 C18.9 Malignant neoplasm of colon, uns pecified Anitha Gamez M.D. 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 12/27/2020 D64.9 Anemia, unspecified Angela Gamez M.D. 12/19/2020 E11.69 Type 2 diabetes mellitus with ot her specified complication Pleskach, Nadiya, INSURANCE ASSOCIATE 12/19/2020 E78.2 Mixed hyperlipidemia Pleskach, M jarocho, INSURANCE ASSOCIATE 12/19/2020 I10 Essential (primary) hypertension Pleskach, Nadiya, INSURANCE ASSOCIATE 12/19/2020 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 Pleskach, Nadiya , INSURANCE ASSOCIATE 12/19/2020 C18.9 Malignant neoplasm of colon, uns pecified Nadiya Bryan, INSURANCE ASSOCIATE 12/19/2020 I48.91 Unspecified atrial fibrillation Nadiya Bryan, INSURANCE ASSOCIATE 12/02/2020 D64.9 Anemia, unspecified PlealexyDeejay, INSURANCE ASSOCIATE 12/02/2020 E11.69 Type 2 diabetes mellitus with ot her specified complication Nadiya Bryan, INSURANCE ASSOCIATE 12/02/2020 E78.2 Mixed hyperlipidemia Plealexy M jarocho, INSURANCE ASSOCIATE 12/02/2020 I10 Essential (primary) hypertension Nadiya Bryan, INSURANCE ASSOCIATE 12/02/2020 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 Nadiya Bryan , INSURANCE ASSOCIATE 12/02/2020 C18.9 Malignant neoplasm of colon, uns pecified Nadiya Bryan, INSURANCE ASSOCIATE 12/02/2020 I48.91 Unspecified atrial fibrillation Nadiya Bryan [...]
--- OUTSIDE RECORDS SUMMARY | 2021-05-23 16:58 | CCD | Continuity of Care Document ---
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 AUTM [phone] [facility] AUTM [phone] Jeff Cramer AUTM [phone] Problems Active Problems Provider Date Type 2 [...] on an empty stomach 12tabs Deejay Bryan [employer] 09/07/2020 [employer] Lubricating Deodorant Liqui d Use as Directed Store 6 236units C18.9 Nadiya Bryan FNP 06/16/2020 Z93.2 [place]ush Remover Wipes Misc use 3-4 wipes every 4 days and as needed when changing ostomy 2Box Z93.2 Ndaiya Bryan FNP 06/16/2020 C18.9 Efren [employer] Ceraing change every 4-5 days and as needed ref #[id number] 20units Nadiya Bryan FNP 05/05/2020 Efren 2 Piece Ostomy Skin Barrier ref # [id number] márquez ge every 4-5 days and as needed 20units C18.9 Nadiya Bryan [employer] 04/14/2020 Z93.2 Efren 2 Piece Drainable Ostomy Pouch ref # [id number] c hange every 4-5 days and as needed 20units C18.9 Nadiya Bryan [employer] 04/14/2020 Z93.2 Diltiazem HCL ER Beads 240mg [...] to bed. x 8 weeks Unknown 01/22/20 - 01/25/2021 Digoxin 125mcg Tablets 1 by [...] CPT Code Status Date Vaccine Lot # 35584 Refused 04/17/2016 Pneumococcal Vaccine 16698 Refused 04/17/2016 Prevnar 13 29028 Refused 04/17/2016 Influenza Vaccination Vital Signs Date Vital Result Comment 03/28/2021 11:51am BP Systolic 113 mmHg BP Diastolic 83 mmHg Heart Rate 127 /min Body Temperature 98.0 F Respiratory Rate 18 /min Height 61.5 inches 5'1.50" Weight 114.38 lb O2 % BldC Oximetry 100 % Prince Body Weight 105 lb BMI (Body Mass Index) 21.3 kg/m2 03/23/2021 3:47pm BP Systolic 110 mmHg BP Diastolic 62 mmHg Heart Rate 64 /min Body Temperature 98.7 F Respiratory Rate 16 /min Height 61.5 inches 5'1.50" Weight 116.38 lb O2 % BldC Oximetry 99 % Prince Body Weight 105 lb BMI (Body Mass Index) 21.6 kg/m2 Results Test Acquired Date Facility Test Result H/L Range Note CBC With Differential 04/20/2021 [facility] [place] [id number] [phone] White Blood Count 3.9 10 Low 4.0-10.0 [...] 36.0-66.0 Lymph % 8.8 % Low 24.0-44.0 Gates % 11.9 % High 2.0-8.0 Eos % 1.0 % Normal 0.0-3.0 Baso % 0.5 % Normal 0.0-1.0 Immature Granulocyte % 0.8 % Normal 0-3.0 Nucleated Red Blood Cell % 0.0 % Normal 0-0 Neutrophils # 3.0 10 Normal 1.5-8.5 Lymph # 0.3 10 Low 1.5-5.0 Gates # 0.5 10 Normal 0.0-0.8 Eos # 0.0 10 Normal 0.0-0.5 Baso # 0.0 10 Normal 0.0-0.2 CBC With Differential 04/12/2021 Patient Service Ce [facility]ter [place], [place] [id number] [phone] White Blood Count 4.6 10 Normal 4.0-10.0 [...] 36.0-66.0 Lymph % 6.6 % Low 24.0-44.0 Gates % 9.4 % High 2.0-8.0 Eos % 0.9 % Normal 0.0-3.0 Baso % 0.2 % Normal 0.0-1.0 Immature Granulocyte % 0.4 % Normal 0-3.0 Nucleated Red Blood Cell % 0.0 % Normal 0-0 Neutrophils # 3.8 10 Normal 1.5-8.5 Lymph # 0.3 10 Low 1.5-5.0 Gates # 0.4 10 Normal 0.0-0.8 Eos # 0.0 10 Normal 0.0-0.5 Baso # 0.0 10 Normal 0.0-0.2 Coronavirus 2019 Nasopharygeal 04/10/[address] [address] [phone] Coronavirus 2019 Nasopharygeal ASSAY INFORMATIO <SEE N OTE> 1 Comprehensive Metabolic Profil 04/07/20[place] [address] [phone] Glucose, Fasting 184 mg/dL High 70-100 Blood [...] Binding Capacit 04/07/2021 Patient Servi ce Center [place], [place] [id number] [phone] Iron (Fe) 48 g/dL Low 50-170 Total Iron Binding Capacity 353 g/dL Normal 250-450 Percent Saturation 13.6 % Normal 13.2-45.0 Laboratory test finding 04/07/2021 [place] [address] [phone] Carcinoembryonic Antigen < 0.5 NG/ML Normal <2.5 3 Ferritin 66 NG/ML Normal 8-252 CBC With Differential 04/07/2021 [place] [address] [phone] White Blood Count 3.4 10 Low 4.0-10.0 [...] 36.0-66.0 Lymph % 8.5 % Low 24.0-44.0 Gates % 10.9 % High 2.0-8.0 Eos % 0.9 % Normal 0.0-3.0 Baso % 0.6 % Normal 0.0-1.0 Immature Granulocyte % 0.6 % Normal 0-3.0 Nucleated Red Blood Cell % 0.0 % Normal 0-0 Neutrophils # 2.7 10 Normal 1.5-8.5 Lymph # 0.3 10 Low 1.5-5.0 Gates # 0.4 10 Normal 0.0-0.8 Eos # 0.0 10 Normal 0.0-0.5 Baso # 0.0 10 Normal 0.0-0.2 Laboratory test finding 04/07/2021 [facility] [place] [id number] [phone] Packed Cells TRANSFUSED PRODU <SEE NOTE> 4 Type & Screen -Incl Blood Type,Tye,AB SC 04/07/2021 [place] [address] [phone] Blood Type O POSITIVE Normal AB Screen (Indirect Farooq)Vis NEGATIVE Normal Comprehensive Metabolic Profil 03/24/2021 [place] [address] [phone] Glucose, Fasting 96 mg/dL Normal 70-100 Blood [...] Covid Amp 03/24/2021 [place] [address] [phone] Influenza A Amplification NEGATIVE Normal Negati ve 6 Influenza B Amplification NEGATIVE Normal Negative 7 RSV Amplification NEGATIVE Normal Negative 8 Sars Covid-19 Amplification NEGATIVE Normal Negative 9 Laboratory test finding 03/24/2021 Patient [facility] [place] [id number] [phone] Packed Cells TRANSFUSED PRODU <SEE NOTE> 10 CBC With Differential 03/24/2021 [place] [address] [phone] White Blood Count 4.6 10 Normal 4.0-10.0 [...] 36.0-66.0 Lymph % 6.2 % Low 24.0-44.0 Gates % 11.4 % High 2.0-8.0 Eos % 0.4 % Normal 0.0-3.0 Baso % 0.4 % Normal 0.0-1.0 Immature Granulocyte % 0.4 % Normal 0-3.0 Nucleated Red Blood Cell % 0.7 % High 0-0 Neutrophils # 3.7 10 Normal 1.5-8.5 Lymph # 0.3 10 Low 1.5-5.0 Gates # 0.5 10 Normal 0.0-0.8 Eos # 0.0 10 Normal 0.0-0.5 Baso # 0.0 10 Normal 0.0-0.2 Metabolic Panel (14), Comprehensive 03/17/2021 [facility] [address] [place] [address] [phone] Calcium 9.5 mg/dL 8.7-10.3 Glucose 81 mg/dL [...] 8 IU/L 0-32 Lipid Panel 03/17/[address] [facility] [address] [place] [phone] Cholesterol, Total 123 mg/dL 100-199 Triglycerides 141 mg/dL 0-149 HDL Cholesterol 37 mg/dL Low >39 VLDL Cholesterol Mark 25 mg/dL 5-40 LDL Chol Calc (Nih) 61 mg/dL 0-99 Comment: TNP Hemoglobin A1c 03/17/[address] [facility] [address] [place] [phone] Hemoglobin A1c 4.8 % 4.8-5.6 13 Albumin/Creatinine Ratio, Random Urine 03/17/2021 [facility] [address] [place] [address] [phone] Creatinine, Urine 120.2 mg/dL Not Estab. Albumin, Urine 20.1 ug/mL Not Estab. Alb/Creat Ratio 17 mg/gcreat 0-29 14 Laboratory test finding 03/14/2021 Patient Service [facility] [place], [place] [id number] [phone] Packed Cells TRANSFUSED PRODU <SEE NOTE> 15 CBC With Differential 03/14/2021 [place] [address] [phone] White Blood Count 4.0 10 Normal 4.0-10.0 [...] 36.0-66.0 Lymph % 6.8 % Low 24.0-44.0 Gates % 9.3 % High 2.0-8.0 Eos % 1.0 % Normal 0.0-3.0 Baso % 0.8 % Normal 0.0-1.0 Immature Granulocyte % 0.3 % Normal 0-3.0 Nucleated Red Blood Cell % 0.0 % Normal 0-0 Neutrophils # 3.3 10 Normal 1.5-8.5 Lymph # 0.3 10 Low 1.5-5.0 Gates # 0.4 10 Normal 0.0-0.8 Eos # 0.0 10 Normal 0.0-0.5 Baso # 0.0 10 Normal 0.0-0.2 Type & Screen -Incl Blood Type,Tye,AB SC 03/14/2021 [place] [address] [phone] Blood Type O POSITIVE Normal AB Screen (Indirect Farooq)Vis NEGATIVE Normal CBC With Differential 03/10/2021 [place] [address] [phone] White Blood Count 3.4 10 Low 4.0-10.0 [...] 36.0-66.0 Lymph % 7.6 % Low 24.0-44.0 Gates % 12.9 % High 2.0-8.0 Eos % 1.2 % Normal 0.0-3.0 Baso % 0.6 % Normal 0.0-1.0 Immature Granulocyte % 0.3 % Normal 0-3.0 Nucleated Red Blood Cell % 0.0 % Normal 0-0 Neutrophils # 2.6 10 Normal 1.5-8.5 Lymph # 0.3 10 Low 1.5-5.0 Gates # 0.4 10 Normal 0.0-0.8 Eos # 0.0 10 Normal 0.0-0.5 Baso # 0.0 10 Normal 0.0-0.2 Comprehensive Metabolic Profil 03/10/20[place] [address] [phone] Glucose, Fasting 166 mg/dL High 70-100 Blood [...] Binding Capacit 03/10/2021 [facility] [place] [id number] [phone] Iron (Fe) 72 g/dL Normal 50-170 Total Iron Binding Capacity 352 g/dL Normal 250-450 Percent Saturation 20.5 % Normal 13.2-45.0 Laboratory test finding 03/10/2021 [place] [address] [phone] Carcinoembryonic Antigen < 0.5 NG/ML Normal <2.5 17 Ferritin 492 NG/ML High 8-252 Laboratory test finding 02/28/2021 [place] [address] [phone] Packed Cells TRANSFUSED PRODU <SEE NOTE> 18 Type & Screen -Incl Blood Type,Tye,AB SC 02/28/2021 Patient Service [place] [id number] [phone] Blood Type O POSITIVE Normal AB Screen (Indirect Farooq)Vis NEGATIVE Normal Creatinine With GFR 02/27/2021 Patient [place] [address] [phone] Creatinine For GFR 0.76 mg/dL Normal 0.55-1.30 Glomerular Filtration Rate > 60.0 Normal >32 1 9 CBC With Differential 02/27/2021 [place] [address] [phone] White Blood Count 6.0 10 Normal 4.0-10.0 [...] 36.0-66.0 Lymph % 4.7 % Low 24.0-44.0 Gates % 11.6 % High 2.0-8.0 Eos % 0.5 % Normal 0.0-3.0 Baso % 0.3 % Normal 0.0-1.0 Immature Granulocyte % 0.8 % Normal 0-3.0 Nucleated Red Blood Cell % 0.3 % High 0-0 Neutrophils # 4.9 10 Normal 1.5-8.5 Lymph # 0.3 10 Low 1.5-5.0 Gates # 0.7 10 Normal 0.0-0.8 Eos # 0.0 10 Normal 0.0-0.5 Baso # 0.0 10 Normal 0.0-0.2 Laboratory test finding 02/27/2021 [place] [address] [phone] Ferritin 1039 NG/ML High 8-252 Total Iron Binding Capacit 02/27/2021 [place] [address] [phone] Iron (Fe) 79 g/dL Normal 50-170 Total Iron Binding Capacity 384 g/dL Normal 250-450 Percent Saturation 20.6 % Normal 13.2-45.0 Laboratory test finding 02/27/2021 [place] [address] [phone] Blood Urea Nitrogen 26 mg/dL High 7-18 Laboratory test finding 02/10/2021 [place] [address] [phone] Packed Cells TRANSFUSED PRODU <SEE NOTE> 20 Type & Screen -Incl Blood Type,Tye,AB SC 02/10/2021 [place] [address] [phone] Blood Type O POSITIVE Normal AB Screen (Indirect Farooq)Vis NEGATIVE Normal CBC With Differential 02/09/2021 [place] [address] [phone] White Blood Count 3.9 10 Low 4.0-10.0 [...] 36.0-66.0 Lymph % 7.2 % Low 24.0-44.0 Gates % 10.0 % High 2.0-8.0 Eos % 1.0 % Normal 0.0-3.0 Baso % 0.5 % Normal 0.0-1.0 Immature Granulocyte % 0.5 % Normal 0-3.0 Nucleated Red Blood Cell % 0.0 % Normal 0-0 Neutrophils # 3.1 10 Normal 1.5-8.5 Lymph # 0.3 10 Low 1.5-5.0 Gates # 0.4 10 Normal 0.0-0.8 Eos # 0.0 10 Normal 0.0-0.5 Baso # 0.0 10 Normal 0.0-0.2 Laboratory test finding 01/27/2021 [place] [address] [phone] Ferritin 39 NG/ML Normal 8-252 Carcinoembryonic Antigen 0.5 NG/ML Normal <2.5 21 Comprehensive Metabolic Profil 01/27/2021 Patient S [place], [place] [phone] Glucose, Fasting 59 mg/dL Low 70-100 Blood [...] CBC With Differential 01/27/2021 [place] [address] [phone] White Blood Count 4.2 10 Normal 4.0-10.0 [...] 36.0-66.0 Lymph % 13.6 % Low 24.0-44.0 Gates % 14.6 % High 2.0-8.0 Eos % 1.4 % Normal 0.0-3.0 Baso % 0.5 % Normal 0.0-1.0 Immature Granulocyte % 0.5 % Normal 0-3.0 Nucleated Red Blood Cell % 0.0 % Normal 0-0 Neutrophils # 2.9 10 Normal 1.5-8.5 Lymph # 0.6 10 Low 1.5-5.0 Gates # 0.6 10 Normal 0.0-0.8 Eos # 0.1 10 Normal 0.0-0.5 Baso # 0.0 10 Normal 0.0-0.2 Total Iron Binding Capacit 01/27/2021 [place] [address] [phone] Iron (Fe) 59 g/dL Normal 50-170 Total Iron Binding Capacity 397 g/dL Normal 250-450 Percent Saturation 14.9 % Normal 13.2-45.0 Complete Blood Count 01/20/2021 [place] [address] [phone] White Blood Count 3.3 10 Low 4.0-10.0 [...] 0-0 Laboratory test finding 01/20/2021 [place] [address] [phone] Blood Urea Nitrogen 21 mg/dL High 7-18 Creatinine With GFR 01/20/2021 [place] [address] [phone] Creatinine For GFR 0.69 mg/dL Normal 0.55-1.30 Glomerular Filtration Rate > 60.0 Normal >32 2 3 Type & Screen -Incl Blood Type,Tye,AB IN 01/20/2021 [place] [address] [phone] Blood Type O POSITIVE Normal AB Screen (Indirect Farooq)Vis NEGATIVE Normal Coronavirus 2019 Nasopharygeal 01/16/2021 Patient S ervice [facility] [place] [id number] [phone] Coronavirus 2019 Nasopharygeal ASSAY INFORMATIO <SEE N OTE> 24 Type & Screen -Incl Blood Type,Tye,AB IN 01/03/2021 [place] [address] [phone] Blood Type O POSITIVE Normal AB Screen (Indirect Farooq)Vis NEGATIVE Normal Laboratory test finding 01/03/2021 [place] [address] [phone] Packed Cells TRANSFUSED PRODU <SEE NOTE> 25 CBC With Differential 01/02/2021 [place] [address] [phone] White Blood Count 4.3 10 Normal 4.0-10.0 [...] 36.0-66.0 Lymph % 10.7 % Low 24.0-44.0 Gates % 13.1 % High 2.0-8.0 Eos % 0.7 % Normal 0.0-3.0 Baso % 0.5 % Normal 0.0-1.0 Immature Granulocyte % 0.5 % Normal 0-3.0 Nucleated Red Blood Cell % 0.0 % Normal 0-0 Neutrophils # 3.2 10 Normal 1.5-8.5 Lymph # 0.5 10 Low 1.5-5.0 Gates # 0.6 10 Normal 0.0-0.8 Eos # 0.0 10 Normal 0.0-0.5 Baso # 0.0 10 Normal 0.0-0.2 Comprehensive Metabolic Profil 01/02/2021 [place] [address] [phone] Glucose, Fasting 155 mg/dL High 70-100 Blood [...] Binding Capacit 01/02/2021 [place] [address] [phone] Iron (Fe) 55 g/dL Normal 50-170 Total Iron Binding Capacity 398 g/dL Normal 250-450 Percent Saturation 13.8 % Normal 13.2-45.0 Laboratory test finding 01/02/2021 [place] [address] [phone] Thyroid Stimulating Hormone 1.660 uIU/ML Normal 0. 358-3.740 Free T4 0.87 ng/dL Normal 0.76-1.46 Ferritin 58 NG/ML Normal 8-252 Liver Profile 12/23/2020 [place] [address] [phone] Ast/Sgot 13 U/L Normal 7-37 Alt/SGPT 14 U/L Normal 12-78 Alkaline Phosphatase 95 U/L Normal 45-117 Bilirubin,Total 0.9 mg/dL Normal 0.2-1.0 Bilirubin,Direct 0.3 mg/dL High 0.0-0.2 Total Protein 6.5 GM/DL Normal 6.4-8.2 Albumin 3.4 GM/DL Normal 3.2-5.2 Albumin/Globulin Ratio 1.1 Low 1.2-2.2 Laboratory test finding 12/23/2020 [place] [address] [phone] Lipase 73 U/L Normal 73-393 Lactic Acid Sepsis Protocol 0.8 mmol/L Normal 0.4-2.0 27 PT & Aptt 12/23/2020 [place] [address] [phone] Prothrombin Time 13.3 seconds Normal 12.5-14.3 Inr 0.99 Normal 28 Partial Thromboplastin Time 29.5 seconds Normal 24.2-38.5 Istat Chem8+ Panel 12/23/2020 [place] [address] [phone] iSTAT HCT 33.0 % Low 38.0-51.0 iSTAT Glucose 94 mg/dL Normal 70-105 iSTAT Sodium 138 mEq/L Normal 136-145 iSTAT Potassium 4.2 mEq/L Normal 3.5-5.1 iSTAT CA++ 5.0 mg/dL Normal 4.5-5.3 iSTAT Chloride 102 mEq/L Normal 98-109 iSTAT Co2 27.0 MM/L Normal 23.0-27.0 iSTAT BUN 20 mg/dL Normal 8-26 iSTAT Creatinine 0.7 mg/dL Normal 0.6-1.3 Laboratory test finding 12/23/2020 [place] [address] [phone] iSTAT Troponin 0.01 NG/ML Normal 0.00-0.08 CBC With Differential 12/23/2020 [place] [address] [phone] White Blood Count 4.5 10 Normal 4.0-10.0 [...] 36.0-66.0 Lymph % 9.7 % Low 24.0-44.0 Gates % 11.9 % High 2.0-8.0 Eos % 0.9 % Normal 0.0-3.0 Baso % 0.4 % Normal 0.0-1.0 Immature Granulocyte % 0.4 % Normal 0-3.0 Nucleated Red Blood Cell % 0.0 % Normal 0-0 Neutrophils # 3.5 10 Normal 1.5-8.5 Lymph # 0.4 10 Low 1.5-5.0 Gates # 0.5 10 Normal 0.0-0.8 Eos # 0.0 10 Normal 0.0-0.5 Baso # 0.0 10 Normal 0.0-0.2 CBC With Differential 12/19/2020 [place] [address] [phone] White Blood Count 3.8 10 Low 4.0-10.0 [...] 36.0-66.0 Lymph % 11.7 % Low 24.0-44.0 Gates % 11.9 % High 2.0-8.0 Eos % 1.1 % Normal 0.0-3.0 Baso % 0.3 % Normal 0.0-1.0 Immature Granulocyte % 0.5 % Normal 0-3.0 Nucleated Red Blood Cell % 0.0 % Normal 0-0 Neutrophils # 2.8 10 Normal 1.5-8.5 Lymph # 0.4 10 Low 1.5-5.0 Gates # 0.5 10 Normal 0.0-0.8 Eos # 0.0 10 Normal 0.0-0.5 Baso # 0.0 10 Normal 0.0-0.2 CBC With Differential 12/05/2020 [place] [address] [phone] White Blood Count 3.4 10 Low 4.0-10.0 [...] 36.0-66.0 Lymph % 12.8 % Low 24.0-44.0 Gates % 13.7 % High 2.0-8.0 Eos % 1.2 % Normal 0.0-3.0 Baso % 0.6 % Normal 0.0-1.0 Immature Granulocyte % 0.3 % Normal 0-3.0 Nucleated Red Blood Cell % 0.0 % Normal 0-0 Neutrophils # 2.4 10 Normal 1.5-8.5 Lymph # 0.4 10 Low 1.5-5.0 Gates # 0.5 10 Normal 0.0-0.8 Eos # 0.0 10 Normal 0.0-0.5 Baso # 0.0 10 Normal 0.0-0.2 PT & Aptt 12/05/2020 [place] [address] [phone] Prothrombin Time 13.3 seconds Normal 12.5-14.3 Inr 0.99 Normal 29 Partial Thromboplastin Time 29.4 seconds Normal 24.2-38.5 Total Iron Binding Capacit 12/05/2020 [place] [address] [phone] Iron (Fe) 94 g/dL Normal 50-170 Total Iron Binding Capacity 350 g/dL Normal 250-450 Percent Saturation 26.9 % Normal 13.2-45.0 Laboratory test finding 12/05/2020 [place] [address] [phone] Ferritin 108 NG/ML Normal 8-252 Complete Blood Count 11/25/[address] [place] [address] [phone] White Blood Count 4.4 10 Normal 4.0-10.0 [...] -Incl Blood Type,Tye,AB SC 11/25/2020 [place] [address] [phone] Blood Type O POSITIVE Normal AB Screen (Indirect Farooq)Vis NEGATIVE Normal Laboratory test finding 11/25/2020 [place] [address] [phone] NT-Pro BNP 1795 pg/mL High <450 Cardiac Marker Panel 11/25/2020 [place] [address] [phone] CPK Creatine Phosphokinase 60 U/L Normal 26-19 2 CK-MB Value Mass 1.3 NG/ML Normal <3.6 MB/CK Relative Index 2.17 Normal < Or =4 30 Troponin I < 0.02 NG/ML Normal < 0.10 31 Comprehensive Metabolic Profil 11/25/2020 [place] [address] [phone] Glucose, Fasting 110 mg/dL High 70-100 Blood [...] & Aptt 11/25/2020 [facility] [place] [address] [phone] Prothrombin Time 16.4 seconds High 12.5-14.3 Inr 1.29 Normal 33 Partial Thromboplastin Time 33.4 seconds Normal 24.2-38.5 CBC With Differential 11/07/2020 Patient Service Ce [facility]ter [facility] [place] [address] [phone] White Blood Count 3.2 10 Low 4.0-10.0 [...] 36.0-66.0 Lymph % 10.5 % Low 24.0-44.0 Gates % 13.3 % High 2.0-8.0 Eos % 0.9 % Normal 0.0-3.0 Baso % 0.6 % Normal 0.0-1.0 Immature Granulocyte % 0.3 % Normal 0-3.0 Nucleated Red Blood Cell % 0.0 % Normal 0-0 Neutrophils # 2.4 10 Normal 1.5-8.5 Lymph # 0.3 10 Low 1.5-5.0 Gates # 0.4 10 Normal 0.0-0.8 Eos # 0.0 10 Normal 0.0-0.5 Baso # 0.0 10 Normal 0.0-0.2 Comprehensive Metabolic Profil 11/07/2020 [place] [address] [phone] Glucose, Fasting 142 mg/dL High 70-100 Blood [...] Binding Capacit 11/07/2020 [place] [address] [phone] Iron (Fe) 43 g/dL Low 50-170 Total Iron Binding Capacity 302 g/dL Normal 250-450 Percent Saturation 14.2 % Normal 13.2-45.0 Laboratory test finding 11/07/2020 [place] [address] [phone] Ferritin 207 NG/ML Normal 8-252 CBC With Differential 10/21/2020 [place] [address] [phone] White Blood Count 3.2 10 Low 4.0-10.0 [...] 36.0-66.0 Lymph % 12.3 % Low 24.0-44.0 Gates % 13.0 % High 2.0-8.0 Eos % 2.2 % Normal 0.0-3.0 Baso % 0.6 % Normal 0.0-1.0 Immature Granulocyte % 0.6 % Normal 0-3.0 Nucleated Red Blood Cell % 0.0 % Normal 0-0 Neutrophils # 2.3 10 Normal 1.5-8.5 Lymph # 0.4 10 Low 1.5-5.0 Gates # 0.4 10 Normal 0.0-0.8 Eos # 0.1 10 Normal 0.0-0.5 Baso # 0.0 10 Normal 0.0-0.2 1 ASSAY INFORMATION: Real Time RT-PCR or TMA. Both RT-PCR and TMA are nucleic acid amplification tests (NAAT) which are molecular testing modalities and recommended by the CDC for passenger travel. Testing and International Air Travel, cdc.gov/coronavirus/2019-ncov/travelers/ldcwacj-pov-pdyobp.html 09/01/2020 NOTE: The COVID-19 assay is under Emergency Use Authorization (EUA) by the U.S. Food and Drug Administration. [facility] and [facility] are designated as high complexity laboratories by [...] Little GFR Left ESRD GFR <15 on MULTIMEDIA ARTIST 3 THE CEA ASSAY IS PERFORMED O N THE [employer] BY CHEMILUMINESCENCE AND SHOULD NOT BE [...] Little GFR Left ESRD GFR <15 on MULTIMEDIA ARTIST 6 Negative results do not prec lude [...] pathogens. DISCLAIMER: Testing was performed using the [facility] SARS-CoV-2 test. This test was developed and its performance characteristics determined by [facility]. This test has not been FDA cleared [...] Little GFR Left ESRD GFR <15 on MULTIMEDIA ARTIST 17 THE CEA ASSAY IS PERFORMED O N THE [employer] BY CHEMILUMINESCENCE AND SHOULD NOT BE COMPARED [...] Little GFR Left ESRD GFR <15 on MULTIMEDIA ARTIST 20 TRANSFUSED PRODUCT: PACKED C ELLS COUNT: [...] Little GFR Left ESRD GFR <15 on MULTIMEDIA ARTIST 23 Units are mL/min/1.73 m2 Chronic Kidney Disease Staging per NKF: Stage I & II GFR >=60 Normal to Mildly Decreased Stage III GFR 30-59 Moderately Decreased Stage IV GFR 15-29 Severely Decreased Stage V GFR <15 Very Little GFR Left ESRD GFR <15 on MULTIMEDIA ARTIST 24 ASSAY INFORMATION: Real Time RT-PCR NOTE: The COVID-19 assay has been cleared by the U.S. Food and Drug Administration under the Emergency Use Authorization (EUA). [facility] and [facility] are designated as high complexity laboratories by [...] Little GFR Left ESRD GFR <15 on MULTIMEDIA ARTIST 27 Y/N query for Sepsis Lactate Rule: [...] Troponin I Reference Interva l for Siemens [place] LOCI: 99th Percentile= 0.00-0.045 ng/ml Risk Stratification: [...] Little GFR Left ESRD GFR <15 on MULTIMEDIA ARTIST 33 THERAPUTIC HUMAN INR VALUES INDICATIONS NORMAL [...] Little GFR Left ESRD GFR <15 on MULTIMEDIA ARTIST Procedures Date Code Description Status 03/28/2021 72753 [place] W/I 7 Days Of DC, Comm W/I 2 Dys Completed 03/23/2021 31730 Office/Outpatient Established Mo d MDM 30-39 Min Completed 03/23/2021 [id number] Diabetic Foot Exam Completed 01/25/2021 04382 [place] W/I 7 Days Of DC, Comm W/I 2 Dys Completed 12/27/2020 12444 Office/Outpatient Established Mo d MDM 30-39 Min Completed 12/19/2020 10159 Office/Outpatient Established Mo d MDM 30-39 Min Completed 12/02/2020 34056 [place] W/I 7 Days Of DC, Comm W/I 2 Dys Completed Medical Devices Description No Information Available Encounters Type Date Location Provider Dx Diagnosis Office Visit 03/28/2021 11:45a Main Office PleNadiya tracey, [employer] D64.9 Anemia, unspecified K29.61 Other gastritis with bleedin g Office Visit 03/23/2021 3:45p Main Office Pleskach, Nadiya, [employer] E11.6 9 Type 2 diabetes mellitus with other specified complication C18.9 Malignant neoplasm of colon, unspecified 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 C18.9 Malignant neoplasm of colon, unspecified I48.91 Unspecified atrial fibrillat ion Office Visit 12/02/2020 10:30a Main Office PlegudeliaachNadiya, [employer] D64.9 Anemia, unspecified E11.69 Type 2 diabetes mellitus wit h other specified complication E78.2 Mixed hyperlipidemia I10 Essential (primary) hyperten yara 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 C18.9 Malignant neoplasm of colon, unspecified I48.91 Unspecified atrial fibrillat ion Assessments Date Code Description Provider 03/28/2021 D64.9 Anemia, unspecified 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, [employer]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/28/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 K29.61 Other gastritis with bleeding Pl Nadiya hogan, 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/23/2021 E11.69 Type 2 diabetes mellitus with ot her specified complication Nadiya Bryan, 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/23/2021 C18.9 Malignant neoplasm of colon, uns pecified PleSteve traceyy, 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/23/2021 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 Plealexy Nadiya , 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/23/2021 E78.2 Mixed hyperlipidemia Pleskzulma, M jarocho, 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/23/2021 I10 Essential (primary) hypertension Pleskach Nadiya, 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/23/2021 I48.91 Unspecified atrial fibrillation Pleskach, Nadiya, 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/23/2021 D64.9 Anemia, unspecified Pleskach, Mo lly, [employer] 01/25/2021 D64.9 Anemia, unspecified Pleskach, Mo lly, [employer] 01/25/2021 K29.61 Other gastritis with bleeding Pl Nadiya hogan, [facility] 12/27/2020 E11.69 Type 2 diabetes mellitus with ot her specified complication Anitha Gamez M.D. 12/27/2020 C18.9 Malignant neoplasm of colon, uns pecified Anitha Gamez M.D. 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 12/27/2020 D64.9 Anemia, unspecified Angela Gmaez M.D. 12/19/2020 E11.69 Type 2 diabetes mellitus with ot her specified complication Pleskach Nadiya, [employer] 12/19/2020 E78.2 Mixed hyperlipidemia Pleskzulma, M jarocho, [employer] 12/19/2020 I10 Essential (primary) hypertension Plegudeliaach, Nadiya, [employer] 12/19/2020 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 Plealexy Nadiya , [employer] 12/19/2020 C18.9 Malignant neoplasm of colon, uns pecified Pleskach Nadiya, [employer] 12/19/2020 I48.91 Unspecified atrial fibrillation Pleskach Nadiya, [employer] 12/02/2020 D64.9 Anemia, unspecified Pleskach, Mo lly, [employer] 12/02/2020 E11.69 Type 2 diabetes mellitus with ot her specified complication Pleskach, Nadiya, [employer] 12/02/2020 E78.2 Mixed hyperlipidemia Pleskach, M jarocho, [employer] 12/02/2020 I10 Essential (primary) hypertension Pleskach, Nadiya, [employer] 12/02/2020 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
--- OUTSIDE RECORDS SUMMARY | 2021-05-23 16:58 | CCD ---
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 AUTM [phone] [facility] AUTM [phone] Jeff Cramer AUTM [phone] Problems Active Problems Provider Date Type 2 [...] on an empty stomach 12tabs Deejay Bryan [employer] 09/07/2020 [employer] Lubricating Deodorant Liqui d Use as Directed Store 6 236units C18.9 Nadiya Bryan FNP 06/16/2020 Z93.2 Kensal Remover Wipes Misc use 3-4 wipes every 4 days and as needed when changing ostomy 2Box Z93.2 Nadiya Bryan FNP 06/16/2020 C18.9 Efren Adapt Ceraing change every 4-5 days and as needed ref #[id number] 20units Nadiya Bryan FNP 05/05/2020 Efren 2 Piece Ostomy Skin Barrier ref # [id number] márquez ge every 4-5 days and as needed 20units C18.9 Nadiya Bryan [employer] 04/14/2020 Z93.2 Efren 2 Piece Drainable Ostomy Pouch ref # [id number] c hange every 4-5 days and as needed 20units C18.9 Nadiya Bryan [employer] 04/14/2020 Z93.2 Diltiazem HCL ER Beads 240mg [...] CPT Code Status Date Vaccine Lot # 53660 Refused 04/17/2016 Pneumococcal Vaccine 31703 Refused 04/17/2016 Prevnar 13 74623 Refused 04/17/2016 Influenza Vaccination Vital Signs Date Vital Result Comment 03/28/2021 11:51am BP Systolic 113 mmHg BP Diastolic 83 mmHg Heart Rate 127 /min Body Temperature 98.0 F Respiratory Rate 18 /min Height 61.5 inches 5'1.50" Weight 114.38 lb O2 % BldC Oximetry 100 % [place] Body Weight 105 lb BMI (Body Mass Index) 21.3 kg/m2 03/23/2021 3:47pm BP Systolic 110 mmHg BP Diastolic 62 mmHg Heart Rate 64 /min Body Temperature 98.7 F Respiratory Rate 16 /min Height 61.5 inches 5'1.50" Weight 116.38 lb O2 % BldC Oximetry 99 % [place] Body Weight 105 lb BMI (Body Mass Index) 21.6 kg/m2 Results Test Acquired Date Facility Test Result H/L Range Note CBC With Differential 04/12/2021 [place] [address] [phone] White Blood Count 4.6 10 Normal 4.0-10.0 [...] 36.0-66.0 Lymph % 6.6 % Low 24.0-44.0 [place] % 9.4 % High 2.0-8.0 Eos % 0.9 % Normal 0.0-3.0 Baso % 0.2 % Normal 0.0-1.0 Immature Granulocyte % 0.4 % Normal 0-3.0 Nucleated Red Blood Cell % 0.0 % Normal 0-0 Neutrophils # 3.8 10 Normal 1.5-8.5 Lymph # 0.3 10 Low 1.5-5.0 [place] # 0.4 10 Normal 0.0-0.8 Eos # 0.0 10 Normal 0.0-0.5 Baso # 0.0 10 Normal 0.0-0.2 Coronavirus 2019 Nasopharygeal 04/10/2021 [place] [address] [phone] Coronavirus 2019 Nasopharygeal ASSAY INFORMATIO <SEE N OTE> 1 Total Iron Binding Capacit 04/07/2021 [place] [address] [phone] Iron (Fe) 48 g/dL Low 50-170 Total Iron Binding Capacity 353 g/dL Normal 250-450 Percent Saturation 13.6 % Normal 13.2-45.0 Laboratory test finding 04/07/2021 [place] [address] [phone] Carcinoembryonic Antigen < 0.5 NG/ML Normal <2.5 2 Ferritin 66 NG/ML Normal 8-252 CBC With Differential 04/07/2021 Patient Service Ce nter [place] [id number] [phone] White Blood Count 3.4 10 Low 4.0-10.0 [...] 36.0-66.0 Lymph % 8.5 % Low 24.0-44.0 [place] % 10.9 % High 2.0-8.0 Eos % 0.9 % Normal 0.0-3.0 Baso % 0.6 % Normal 0.0-1.0 Immature Granulocyte % 0.6 % Normal 0-3.0 Nucleated Red Blood Cell % 0.0 % Normal 0-0 Neutrophils # 2.7 10 Normal 1.5-8.5 Lymph # 0.3 10 Low 1.5-5.0 [place] # 0.4 10 Normal 0.0-0.8 Eos # 0.0 10 Normal 0.0-0.5 Baso # 0.0 10 Normal 0.0-0.2 Laboratory test finding 04/07/2021 [place] [address] [phone] Packed Cells TRANSFUSED PRODU <SEE NOTE> 3 Type & Screen -Incl Blood Type,Tye,AB SC 04/07/2021 [place] [address] [phone] Blood Type O POSITIVE Normal AB Screen (Indirect Farooq)Vis NEGATIVE Normal Comprehensive Metabolic Profil 04/07/20[place] [address] [phone] Glucose, Fasting 184 mg/dL High 70-100 Blood [...] 1.2-2.2 Comprehensive Metabolic Profil 03/24/20[place] [address] [phone] Glucose, Fasting 96 mg/dL Normal 70-100 Blood [...] RSV Covid Amp 03/24/2021 [place] [address] [phone] Influenza A Amplification NEGATIVE Normal Negati ve 6 Influenza B Amplification NEGATIVE Normal Negative 7 RSV Amplification NEGATIVE Normal Negative 8 Sars Covid-19 Amplification NEGATIVE Normal Negative 9 Laboratory test finding 03/24/2021 [place] [address] [phone] Packed Cells TRANSFUSED PRODU <SEE NOTE> 10 CBC With Differential 03/24/2021 [place] [address] [phone] White Blood Count 4.6 10 Normal 4.0-10.0 [...] 36.0-66.0 Lymph % 6.2 % Low 24.0-44.0 [place] % 11.4 % High 2.0-8.0 Eos % 0.4 % Normal 0.0-3.0 Baso % 0.4 % Normal 0.0-1.0 Immature Granulocyte % 0.4 % Normal 0-3.0 Nucleated Red Blood Cell % 0.7 % High 0-0 Neutrophils # 3.7 10 Normal 1.5-8.5 Lymph # 0.3 10 Low 1.5-5.0 [place] # 0.5 10 Normal 0.0-0.8 Eos # 0.0 10 Normal 0.0-0.5 Baso # 0.0 10 Normal 0.0-0.2 Metabolic Panel (14), Comprehensive 03/17/2021 [facility] [address] [place], [place] [id number] [phone] Calcium 9.5 mg/dL 8.7-10.3 Glucose 81 mg/dL [...] IU/L 0-32 Lipid Panel 03/17/2021 [facility] [address] [place] [address] [phone] Cholesterol, Total 123 mg/dL 100-199 Triglycerides 141 mg/dL 0-149 HDL Cholesterol 37 mg/dL Low >39 VLDL Cholesterol Mark 25 mg/dL 5-40 LDL Chol Calc (Nih) 61 mg/dL 0-99 Comment: TNP Hemoglobin A1c 03/17/2021 [facility] [address] [place] [address] [phone] Hemoglobin A1c 4.8 % 4.8-5.6 13 Albumin/Creatinine Ratio, Random Urine 03/17/2021 [facility] [address] [place] [address] [phone] Creatinine, Urine 120.2 mg/dL Not Estab. Albumin, Urine 20.1 ug/mL Not Estab. Alb/Creat Ratio 17 mg/gcreat 0-29 14 Laboratory test finding 03/14/2021 [place] [address] [phone] Packed Cells TRANSFUSED PRODU <SEE NOTE> 15 CBC With Differential 03/14/2021 Patient Service Ce [facility]ter [place] [id number] [phone] White Blood Count 4.0 10 Normal 4.0-10.0 [...] 36.0-66.0 Lymph % 6.8 % Low 24.0-44.0 [place] % 9.3 % High 2.0-8.0 Eos % 1.0 % Normal 0.0-3.0 Baso % 0.8 % Normal 0.0-1.0 Immature Granulocyte % 0.3 % Normal 0-3.0 Nucleated Red Blood Cell % 0.0 % Normal 0-0 Neutrophils # 3.3 10 Normal 1.5-8.5 Lymph # 0.3 10 Low 1.5-5.0 [place] # 0.4 10 Normal 0.0-0.8 Eos # 0.0 10 Normal 0.0-0.5 Baso # 0.0 10 Normal 0.0-0.2 Type & Screen -Incl Blood Type,Tye,AB SC 03/14/2021 [place] [address] [phone] Blood Type O POSITIVE Normal AB Screen (Indirect Farooq)Vis NEGATIVE Normal CBC With Differential 03/10/2021 [place] [address] [phone] White Blood Count 3.4 10 Low 4.0-10.0 [...] 36.0-66.0 Lymph % 7.6 % Low 24.0-44.0 [place] % 12.9 % High 2.0-8.0 Eos % 1.2 % Normal 0.0-3.0 Baso % 0.6 % Normal 0.0-1.0 Immature Granulocyte % 0.3 % Normal 0-3.0 Nucleated Red Blood Cell % 0.0 % Normal 0-0 Neutrophils # 2.6 10 Normal 1.5-8.5 Lymph # 0.3 10 Low 1.5-5.0 [place] # 0.4 10 Normal 0.0-0.8 Eos # 0.0 10 Normal 0.0-0.5 Baso # 0.0 10 Normal 0.0-0.2 Comprehensive Metabolic Profil 03/10/2021 [place] [address] [phone] Glucose, Fasting 166 mg/dL High 70-100 Blood [...] Binding Capacit 03/10/2021 Patient Serv[facility] [place] 4596491 [phone] Iron (Fe) 72 g/dL Normal 50-170 Total Iron Binding Capacity 352 g/dL Normal 250-450 Percent Saturation 20.5 % Normal 13.2-45.0 Laboratory test finding 03/10/2021 [place] [address] [phone] Carcinoembryonic Antigen < 0.5 NG/ML Normal <2.5 17 Ferritin 492 NG/ML High 8-252 Laboratory test finding 02/28/2021 [place] [address] [phone] Packed Cells TRANSFUSED PRODU <SEE NOTE> 18 Type & Screen -Incl Blood Type,Tye,AB SC 02/28/2021 [place] [address] [phone] Blood Type O POSITIVE Normal AB Screen (Indirect Farooq)Vis NEGATIVE Normal Creatinine With GFR 02/27/2021 Patient Service [place] [address] [phone] Creatinine For GFR 0.76 mg/dL Normal 0.55-1.30 Glomerular Filtration Rate > 60.0 Normal >32 1 9 CBC With Differential 02/27/2021 [place] [address] [phone] White Blood Count 6.0 10 Normal 4.0-10.0 [...] 36.0-66.0 Lymph % 4.7 % Low 24.0-44.0 [place] % 11.6 % High 2.0-8.0 Eos % 0.5 % Normal 0.0-3.0 Baso % 0.3 % Normal 0.0-1.0 Immature Granulocyte % 0.8 % Normal 0-3.0 Nucleated Red Blood Cell % 0.3 % High 0-0 Neutrophils # 4.9 10 Normal 1.5-8.5 Lymph # 0.3 10 Low 1.5-5.0 [place] # 0.7 10 Normal 0.0-0.8 Eos # 0.0 10 Normal 0.0-0.5 Baso # 0.0 10 Normal 0.0-0.2 Laboratory test finding 02/27/2021 [place] [address] [phone] Ferritin 1039 NG/ML High 8-252 Total Iron Binding Capacit 02/27/2021 Patient Servi ce [facility] [place], [place] [id number] [phone] Iron (Fe) 79 g/dL Normal 50-170 Total Iron Binding Capacity 384 g/dL Normal 250-450 Percent Saturation 20.6 % Normal 13.2-45.0 Laboratory test finding 02/27/2021 Patient Service Center [place], [place] [address] [phone] Blood Urea Nitrogen 26 mg/dL High 7-18 Laboratory test finding 02/10/2021 [place] [address] [phone] Packed Cells TRANSFUSED PRODU <SEE NOTE> 20 Type & Screen -Incl Blood Type,Tye,AB SC 02/10/2021 [place] [address] [phone] Blood Type O POSITIVE Normal AB Screen (Indirect Farooq)Vis NEGATIVE Normal CBC With Differential 02/09/2021 [place] [address] [phone] White Blood Count 3.9 10 Low 4.0-10.0 [...] 36.0-66.0 Lymph % 7.2 % Low 24.0-44.0 [place] % 10.0 % High 2.0-8.0 Eos % 1.0 % Normal 0.0-3.0 Baso % 0.5 % Normal 0.0-1.0 Immature Granulocyte % 0.5 % Normal 0-3.0 Nucleated Red Blood Cell % 0.0 % Normal 0-0 Neutrophils # 3.1 10 Normal 1.5-8.5 Lymph # 0.3 10 Low 1.5-5.0 [place] # 0.4 10 Normal 0.0-0.8 Eos # 0.0 10 Normal 0.0-0.5 Baso # 0.0 10 Normal 0.0-0.2 Laboratory test finding 01/27/2021 [place] [address] [phone] Ferritin 39 NG/ML Normal 8-252 Carcinoembryonic Antigen 0.5 NG/ML Normal <2.5 21 Total Iron Binding Capacit 01/27/2021 [place] [address] [phone] Iron (Fe) 59 g/dL Normal 50-170 Total Iron Binding Capacity 397 g/dL Normal 250-450 Percent Saturation 14.9 % Normal 13.2-45.0 CBC With Differential 01/27/2021 [place] [address] [phone] White Blood Count 4.2 10 Normal 4.0-10.0 [...] 36.0-66.0 Lymph % 13.6 % Low 24.0-44.0 [place] % 14.6 % High 2.0-8.0 Eos % 1.4 % Normal 0.0-3.0 Baso % 0.5 % Normal 0.0-1.0 Immature Granulocyte % 0.5 % Normal 0-3.0 Nucleated Red Blood Cell % 0.0 % Normal 0-0 Neutrophils # 2.9 10 Normal 1.5-8.5 Lymph # 0.6 10 Low 1.5-5.0 [place] # 0.6 10 Normal 0.0-0.8 Eos # 0.1 10 Normal 0.0-0.5 Baso # 0.0 10 Normal 0.0-0.2 Comprehensive Metabolic Profil 01/27/20[place] [address] [phone] Glucose, Fasting 59 mg/dL Low 70-100 Blood [...] 1.2-2.2 Complete Blood Count 01/20/2021 [place] [address] [phone] White Blood Count 3.3 10 Low 4.0-10.0 [...] 0-0 Laboratory test finding 01/20/2021 [place] [address] [phone] Blood Urea Nitrogen 21 mg/dL High 7-18 Creatinine With GFR 01/20/2021 [place] [address] [phone] Creatinine For GFR 0.69 mg/dL Normal 0.55-1.30 Glomerular Filtration Rate > 60.0 Normal >32 2 3 Type & Screen -Incl Blood Type,Tye,AB SC 01/20/2021 [place] [address] [phone] Blood Type O POSITIVE Normal AB Screen (Indirect Farooq)Vis NEGATIVE Normal Coronavirus 2019 Nasopharygeal 01/16/2021 [place] [address] [phone] Coronavirus 2019 Nasopharygeal ASSAY INFORMATIO <SEE N OTE> 24 Type & Screen -Incl Blood Type,Tye,AB SC 01/03/2021 [facility] [place] 4596484 [phone] Blood Type O POSITIVE Normal AB Screen (Indirect Farooq)Vis NEGATIVE Normal Laboratory test finding 01/03/2021 [facility] [place] 4596444 [phone] Packed Cells TRANSFUSED PRODU <SEE NOTE> 25 CBC With Differential 01/02/2021 Patient Service Ce [facility]ter [place] 4596451 [phone] White Blood Count 4.3 10 Normal 4.0-10.0 [...] 36.0-66.0 Lymph % 10.7 % Low 24.0-44.0 [place] % 13.1 % High 2.0-8.0 Eos % 0.7 % Normal 0.0-3.0 Baso % 0.5 % Normal 0.0-1.0 Immature Granulocyte % 0.5 % Normal 0-3.0 Nucleated Red Blood Cell % 0.0 % Normal 0-0 Neutrophils # 3.2 10 Normal 1.5-8.5 Lymph # 0.5 10 Low 1.5-5.0 [place] # 0.6 10 Normal 0.0-0.8 Eos # 0.0 10 Normal 0.0-0.5 Baso # 0.0 10 Normal 0.0-0.2 Comprehensive Metabolic Profil 01/02/2021 [place] [address] [phone] Glucose, Fasting 155 mg/dL High 70-100 Blood [...] Total Iron Binding Capacit 01/02/2021 [place] [address] [phone] Iron (Fe) 55 g/dL Normal 50-170 Total Iron Binding Capacity 398 g/dL Normal 250-450 Percent Saturation 13.8 % Normal 13.2-45.0 Laboratory test finding 01/02/2021 [place] [address] [phone] Thyroid Stimulating Hormone 1.660 uIU/ML Normal 0. 358-3.740 Free T4 0.87 ng/dL Normal 0.76-1.46 Ferritin 58 NG/ML Normal 8-252 Liver Profile 12/23/2020 [place] [address] [phone] Ast/Sgot 13 U/L Normal 7-37 Alt/SGPT 14 U/L Normal 12-78 Alkaline Phosphatase 95 U/L Normal 45-117 Bilirubin,Total 0.9 mg/dL Normal 0.2-1.0 Bilirubin,Direct 0.3 mg/dL High 0.0-0.2 Total Protein 6.5 GM/DL Normal 6.4-8.2 Albumin 3.4 GM/DL Normal 3.2-5.2 Albumin/Globulin Ratio 1.1 Low 1.2-2.2 Laboratory test finding 12/23/2020 [place] [address] [phone] Lipase 73 U/L Normal 73-393 Lactic Acid Sepsis Protocol 0.8 mmol/L Normal 0.4-2.0 27 PT & Aptt 12/23/2020 [place] [address] [phone] Prothrombin Time 13.3 seconds Normal 12.5-14.3 Inr 0.99 Normal 28 Partial Thromboplastin Time 29.5 seconds Normal 24.2-38.5 Istat Chem8+ Panel 12/23/2020 [place] [address] [phone] iSTAT HCT 33.0 % Low 38.0-51.0 iSTAT Glucose 94 mg/dL Normal 70-105 iSTAT Sodium 138 mEq/L Normal 136-145 iSTAT Potassium 4.2 mEq/L Normal 3.5-5.1 iSTAT CA++ 5.0 mg/dL Normal 4.5-5.3 iSTAT Chloride 102 mEq/L Normal 98-109 iSTAT Co2 27.0 MM/L Normal 23.0-27.0 iSTAT BUN 20 mg/dL Normal 8-26 iSTAT Creatinine 0.7 mg/dL Normal 0.6-1.3 Laboratory test finding 12/23/2020 [place] [address] [phone] iSTAT Troponin 0.01 NG/ML Normal 0.00-0.08 CBC With Differential 12/23/2020 [place] [address] [phone] White Blood Count 4.5 10 Normal 4.0-10.0 [...] 36.0-66.0 Lymph % 9.7 % Low 24.0-44.0 [place] % 11.9 % High 2.0-8.0 Eos % 0.9 % Normal 0.0-3.0 Baso % 0.4 % Normal 0.0-1.0 Immature Granulocyte % 0.4 % Normal 0-3.0 Nucleated Red Blood Cell % 0.0 % Normal 0-0 Neutrophils # 3.5 10 Normal 1.5-8.5 Lymph # 0.4 10 Low 1.5-5.0 [place] # 0.5 10 Normal 0.0-0.8 Eos # 0.0 10 Normal 0.0-0.5 Baso # 0.0 10 Normal 0.0-0.2 CBC With Differential 12/19/2020 Patient Service [place] 9752930 [phone] White Blood Count 3.8 10 Low 4.0-10.0 [...] 36.0-66.0 Lymph % 11.7 % Low 24.0-44.0 [place] % 11.9 % High 2.0-8.0 Eos % 1.1 % Normal 0.0-3.0 Baso % 0.3 % Normal 0.0-1.0 Immature Granulocyte % 0.5 % Normal 0-3.0 Nucleated Red Blood Cell % 0.0 % Normal 0-0 Neutrophils # 2.8 10 Normal 1.5-8.5 Lymph # 0.4 10 Low 1.5-5.0 [place] # 0.5 10 Normal 0.0-0.8 Eos # 0.0 10 Normal 0.0-0.5 Baso # 0.0 10 Normal 0.0-0.2 CBC With Differential 12/05/2020 Patient Service Ce er [facility] [place] [address] [phone] White Blood Count 3.4 10 Low 4.0-10.0 [...] 36.0-66.0 Lymph % 12.8 % Low 24.0-44.0 [place] % 13.7 % High 2.0-8.0 Eos % 1.2 % Normal 0.0-3.0 Baso % 0.6 % Normal 0.0-1.0 Immature Granulocyte % 0.3 % Normal 0-3.0 Nucleated Red Blood Cell % 0.0 % Normal 0-0 Neutrophils # 2.4 10 Normal 1.5-8.5 Lymph # 0.4 10 Low 1.5-5.0 [place] # 0.5 10 Normal 0.0-0.8 Eos # 0.0 10 Normal 0.0-0.5 Baso # 0.0 10 Normal 0.0-0.2 PT & Aptt 12/05/2020 [place] [address] [phone] Prothrombin Time 13.3 seconds Normal 12.5-14.3 Inr 0.99 Normal 29 Partial Thromboplastin Time 29.4 seconds Normal 24.2-38.5 Total Iron Binding Capacit 12/05/2020 [place] [address] [phone] Iron (Fe) 94 g/dL Normal 50-170 Total Iron Binding Capacity 350 g/dL Normal 250-450 Percent Saturation 26.9 % Normal 13.2-45.0 Laboratory test finding 12/05/2020 [place] [address] [phone] Ferritin 108 NG/ML Normal 8-252 Complete Blood Count 11/25/2020 [place] [address] [phone] White Blood Count 4.4 10 Normal 4.0-10.0 [...] -Incl Blood Type,Tye,AB SC 11/25/2020 [place] [address] [phone] Blood Type O POSITIVE Normal AB Screen (Indirect Farooq)Vis NEGATIVE Normal Laboratory test finding 11/25/2020 [place] [address] [phone] NT-Pro BNP 1795 pg/mL High <450 Cardiac Marker Panel 11/25/2020 [place] [address] [phone] CPK Creatine Phosphokinase 60 U/L Normal 26-19 2 CK-MB Value Mass 1.3 NG/ML Normal <3.6 MB/CK Relative Index 2.17 Normal < Or =4 30 Troponin I < 0.02 NG/ML Normal < 0.10 31 Comprehensive Metabolic Profil 11/25/2020 Patient [place], [place] 6005885 [phone] Glucose, Fasting 110 mg/dL High 70-100 Blood [...] PT & Aptt 11/25/[address] [place] [address] [phone] Prothrombin Time 16.4 seconds High 12.5-14.3 Inr 1.29 Normal 33 Partial Thromboplastin Time 33.4 seconds Normal 24.2-38.5 CBC With Differential 11/07/2020 [place] [address] [phone] White Blood Count 3.2 10 Low 4.0-10.0 [...] 36.0-66.0 Lymph % 10.5 % Low 24.0-44.0 [place] % 13.3 % High 2.0-8.0 Eos % 0.9 % Normal 0.0-3.0 Baso % 0.6 % Normal 0.0-1.0 Immature Granulocyte % 0.3 % Normal 0-3.0 Nucleated Red Blood Cell % 0.0 % Normal 0-0 Neutrophils # 2.4 10 Normal 1.5-8.5 Lymph # 0.3 10 Low 1.5-5.0 [place] # 0.4 10 Normal 0.0-0.8 Eos # 0.0 10 Normal 0.0-0.5 Baso # 0.0 10 Normal 0.0-0.2 Comprehensive Metabolic Profil 11/07/[address] [place] [address] [phone] Glucose, Fasting 142 mg/dL High 70-100 Blood [...] 1.2-2.2 Total Iron Binding Capacit 11/07/2020 [place] [address] [phone] Iron (Fe) 43 g/dL Low 50-170 Total Iron Binding Capacity 302 g/dL Normal 250-450 Percent Saturation 14.2 % Normal 13.2-45.0 Laboratory test finding 11/07/2020 [place] [address] [phone] Ferritin 207 NG/ML Normal 8-252 CBC With Differential 10/21/2020 Patient Service Ce nter [facility] [place], [place] [address] [phone] White Blood Count 3.2 10 Low 4.0-10.0 [...] 36.0-66.0 Lymph % 12.3 % Low 24.0-44.0 [place] % 13.0 % High 2.0-8.0 Eos % 2.2 % Normal 0.0-3.0 Baso % 0.6 % Normal 0.0-1.0 Immature Granulocyte % 0.6 % Normal 0-3.0 Nucleated Red Blood Cell % 0.0 % Normal 0-0 Neutrophils # 2.3 10 Normal 1.5-8.5 Lymph # 0.4 10 Low 1.5-5.0 [place] # 0.4 10 Normal 0.0-0.8 Eos # 0.1 10 Normal 0.0-0.5 Baso # 0.0 10 Normal 0.0-0.2 1 ASSAY INFORMATION: Real Time RT-PCR or TMA. Both RT-PCR and TMA are nucleic acid amplification tests (NAAT) which are molecular testing modalities and recommended by the CDC for passenger travel. Testing and International Air Travel, cdc.gov/coronavirus/2019-ncov/travelers/yqoffct-hxa-vawxtv.html 09/01/2020 NOTE: The COVID-19 assay is under Emergency Use Authorization (EUA) by the U.S. Food and Drug Administration. [facility] and [facility] are designated as high complexity laboratories by the Clinical Laboratory Improvement Amendments of 1988 (CLIA) and are qualified to perform this test. Not Detected 2 THE CEA ASSAY IS PERFORMED O N THE JAMISON TerapioAUR BY CHEMILUMINESCENCE AND SHOULD NOT BE COMPARED [...] Little GFR Left ESRD GFR <15 on ACUPRESSURE THERAPIST 5 Units are mL/min/1.73 m2 Chronic Kidney Disease Staging per NKF: Stage I & II GFR >=60 Normal to Mildly Decreased Stage III GFR 30-59 Moderately Decreased Stage IV GFR 15-29 Severely Decreased Stage V GFR <15 Very Little GFR Left ESRD GFR <15 on ACUPRESSURE THERAPIST 6 Negative results do not prec lude [...] pathogens. DISCLAIMER: Testing was performed using the [facility] SARS-CoV-2 test. This test was developed and its performance characteristics determined by [facility]. This test has not been FDA [...] Little GFR Left ESRD GFR <15 on ACUPRESSURE THERAPIST 17 THE CEA ASSAY IS PERFORMED O N THE ITS KO[place]UR BY CHEMILUMINESCENCE AND SHOULD NOT BE COMPARED [...] Little GFR Left ESRD GFR <15 on ACUPRESSURE THERAPIST 20 TRANSFUSED PRODUCT: PACKED C ELLS COUNT: 2 21 THE CEA ASSAY IS PERFORMED O N THE ITS KOOLAUR BY CHEMILUMINESCENCE AND SHOULD NOT BE COMPARED [...] Little GFR Left ESRD GFR <15 on ACUPRESSURE THERAPIST 23 Units are mL/min/1.73 m2 Chronic Kidney Disease Staging per NKF: Stage I & II GFR >=60 Normal to Mildly Decreased Stage III GFR 30-59 Moderately Decreased Stage IV GFR 15-29 Severely Decreased Stage V GFR <15 Very Little GFR Left ESRD GFR <15 on ACUPRESSURE THERAPIST 24 ASSAY INFORMATION: Real Time RT-PCR NOTE: The COVID-19 assay has been cleared by the U.S. Food and Drug Administration under the Emergency Use Authorization (EUA). [facility] and [facility] are designated as high complexity laboratories by [...] Little GFR Left ESRD GFR <15 on ACUPRESSURE THERAPIST 27 Y/N query for Sepsis Lactate Rule: [...] 31 Troponin I Reference Interva l for Aerospike LOCI: 99th Percentile= 0.00-0.045 ng/ml Risk Stratification: [...] Little GFR Left ESRD GFR <15 on ACUPRESSURE THERAPIST 33 THERAPUTIC HUMAN INR VALUES INDICATIONS NORMAL [...] Little GFR Left ESRD GFR <15 on ACUPRESSURE THERAPIST Procedures Date Code Description Status 03/28/2021 06402 [place] W/I 7 Days Of DC, Comm W/I 2 Dys Completed 03/23/2021 52133 Office/Outpatient Established Mo d MDM 30-39 Min Completed 03/23/2021 [id number] Diabetic Foot Exam Completed 01/25/2021 15040 [place] W/I 7 Days Of DC, Comm W/I 2 Dys Completed 12/27/2020 67685 Office/Outpatient Established Mo d MDM 30-39 Min Completed 12/19/2020 22448 Office/Outpatient Established Mo d MDM 30-39 Min Completed 12/02/2020 54955 [place] W/I 7 Days Of DC, Comm W/I 2 Dys Completed Medical Devices Description No Information Available Encounters Type Date Location Provider Dx Diagnosis Office Visit 03/28/2021 11:45a Main Office Nadiya Bryan, [employer] D64.9 Anemia, unspecified K29.61 Other gastritis with bleedin g Office Visit 03/23/2021 3:45p Main Office Nadiya Bryan, [employer] E11.6 9 Type 2 diabetes mellitus with other specified complication C18.9 Malignant neoplasm of colon, unspecified 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 C18.9 Malignant neoplasm of colon, unspecified I48.91 Unspecified atrial fibrillat ion Office Visit 12/02/2020 10:30a Main Office PlegudeliaachNadiya, [employer] D64.9 Anemia, unspecified E11.69 Type 2 diabetes mellitus wit h other specified complication E78.2 Mixed hyperlipidemia I10 Essential (primary) hyperten yara 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 C18.9 Malignant neoplasm of colon, unspecified I48.91 Unspecified atrial fibrillat ion Assessments Date Code Description Provider 03/28/2021 D64.9 Anemia, unspecified Pleskach, Mo lly, [facility] 03/28/2021 K29.61 Other gastritis with bleeding Pl eskach, Nadiya, [employer] 03/23/2021 E11.69 Type 2 diabetes mellitus with ot her specified complication Pleskach, Nadiya, [employer] 03/23/2021 C18.9 Malignant neoplasm of colon, uns pecified Pleskach, Nadiya, [employer] 03/23/2021 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 Pleskach, Nadiya , [employer] 03/23/2021 E78.2 Mixed hyperlipidemia Pleskach, M jarocho, [employer] 03/23/2021 I10 Essential (primary) hypertension Pleskach, Nadiya, [employer] 03/23/2021 I48.91 Unspecified atrial fibrillation Pleskach, Nadiya, [employer] 03/23/2021 D64.9 Anemia, unspecified Pleskach, Mo lly, [facility] 01/25/2021 D64.9 Anemia, unspecified Pleskach, Mo lly, [employer] 01/25/2021 K29.61 Other gastritis with bleeding Pl eskach, Nadiya, [employer] 12/27/2020 E11.69 Type 2 diabetes mellitus with ot her specified complication Anitha Gamez M.D. 12/27/2020 C18.9 Malignant neoplasm of colon, uns pecified Anitha Gamez M.D. 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 12/27/2020 D64.9 Anemia, unspecified Angela Gamez M.D. 12/19/2020 E11.69 Type 2 diabetes mellitus with ot her specified complication Pleskach, Nadiya, [employer] 12/19/2020 E78.2 Mixed hyperlipidemia Pleskach, M jarocho, [employer] 12/19/2020 I10 Essential (primary) hypertension Pleskach, Nadiya, [employer] 12/19/2020 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 Pleskach, Nadiya , [employer] 12/19/2020 C18.9 Malignant neoplasm of colon, uns pecified Nadiya Bryan, [employer] 12/19/2020 I48.91 Unspecified atrial fibrillation Nadiya Bryan, [employer] 12/02/2020 D64.9 Anemia, unspecified PlealexyDeejay, [employer] 12/02/2020 E11.69 Type 2 diabetes mellitus with ot her specified complication Nadiya Bryan, [employer] 12/02/2020 E78.2 Mixed hyperlipidemia Plealexy M jarocho, [employer] 12/02/2020 I10 Essential (primary) hypertension Nadiya Bryan, [employer] 12/02/2020 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 Nadiya Bryan , [employer] 12/02/2020 C18.9 Malignant neoplasm of colon, uns pecified Nadiya Bryan, [employer] 12/02/2020 I48.91 Unspecified atrial fibrillation Nadiya Bryan [...]
--- OUTSIDE RECORDS SUMMARY | 2021-05-23 16:59 | CCD | Continuity of Care Document ---
Author Author Meron BRYAN NURSING ASSOCIATE Organization Unknown Address [address] [place] [address] Phone [phone] Care Team Providers Care Grocery Department Manager Name Role Phone [facility] - [facility] Equipment AUTM [phone] Niels Decker M.D. AUTM [phone] [facility] AUTM Jeff Cramer AUTM [phone] Problems Active Problems Provider Date Type 2 [...] on an empty stomach 12tabs Deejay Bryan NURSING ASSOCIATE 09/07/2020 Adapt Lubricating Deodorant Liqui d Use as Directed Store 6 236units C18.9 Nadiya Bryan FNP 06/16/2020 Z93.2 Eden Remover Wipes Misc use 3-4 wipes every 4 days and as needed when changing ostomy 2Box Z93.2 Nadiya Bryan FNP 06/16/2020 C18.9 Efren Adapt Ceraing change every 4-5 days and as needed ref #[id number] 20units Nadiya Bryan FNP 05/05/2020 Efren 2 Piece Ostomy Skin Barrier ref # [id number] márquez ge every 4-5 days and as needed 20units C18.9 Nadiya Bryan NURSING ASSOCIATE 04/14/2020 Z93.2 Efren 2 Piece Drainable Ostomy Pouch ref # [id number] c hange every 4-5 days and as needed 20units C18.9 Nadiya Bryan NURSING ASSOCIATE 04/14/2020 Z93.2 Diltiazem HCL ER Beads [...] CPT Code Status Date Vaccine Lot # [id number] Refused 04/17/2016 Pneumococcal Vaccine 75868 Refused 04/17/2016 Prevnar 13 08875 Refused 04/17/2016 Influenza Vaccination Vital Signs Date Vital Result Comment 03/28/2021 11:51am BP Systolic 113 mmHg BP Diastolic 83 mmHg Heart Rate 127 /min Body Temperature 98.0 F Respiratory Rate 18 /min Height 61.5 inches 5'1.50" Weight 114.38 lb O2 % BldC Oximetry 100 % [place] Body Weight 105 lb BMI (Body Mass Index) 21.3 kg/m2 03/23/2021 3:47pm BP Systolic 110 mmHg BP Diastolic 62 mmHg Heart Rate 64 /min Body Temperature 98.7 F Respiratory Rate 16 /min Height 61.5 inches 5'1.50" Weight 116.38 lb O2 % BldC Oximetry 99 % [place] Body Weight 105 lb BMI (Body Mass Index) 21.6 kg/m2 Results Test Acquired Date Facility Test Result H/L Range Note Total Iron Binding Capacit 04/07/2021 [facility] [place], [place] [id number] [phone] Iron (Fe) 48 g/dL Low 50-170 Total Iron Binding Capacity 353 g/dL Normal 250-450 Percent Saturation 13.6 % Normal 13.2-45.0 Laboratory test finding 04/07/2021 Patient [facility] [place], [place] [phone] Carcinoembryonic Antigen < 0.5 NG/ML Normal <2.5 1 Ferritin 66 NG/ML Normal 8-252 CBC With Differential 04/07/2021 [place] [id number] [phone] White Blood Count 3.4 10 Low 4.0-10.0 [...] 36.0-66.0 Lymph % 8.5 % Low 24.0-44.0 [place] % 10.9 % High 2.0-8.0 Eos % 0.9 % Normal 0.0-3.0 Baso % 0.6 % Normal 0.0-1.0 Immature Granulocyte % 0.6 % Normal 0-3.0 Nucleated Red Blood Cell % 0.0 % Normal 0-0 Neutrophils # 2.7 10 Normal 1.5-8.5 Lymph # 0.3 10 Low 1.5-5.0 [place] # 0.4 10 Normal 0.0-0.8 Eos # 0.0 10 Normal 0.0-0.5 Baso # 0.0 10 Normal 0.0-0.2 Laboratory test finding 04/07/2021 [facility] [place] [id number] [phone] Packed Cells TRANSFUSED PRODU <SEE NOTE> 2 Type & Screen -Incl Blood Type,Tye,AB SC 04/07/2021 [facility] [place] [id number] [phone] Blood Type O POSITIVE Normal AB Screen (Indirect Farooq)Vis NEGATIVE Normal Comprehensive Metabolic Profil 04/07/2021 [facility] [place] [id number] [phone] Glucose, Fasting 184 mg/dL High 70-100 Blood Urea Nitrogen 30 mg/dL High 7-18 Creatinine For GFR 0.81 mg/dL Normal 0.55-1.30 Glomerular Filtration Rate > 60.0 Normal >32 3 Sodium Level 141 mEq/L Normal 136-145 Potassium [...] 1.2-2.2 Comprehensive Metabolic Profil 03/24/2021 [place] [address] [phone] Glucose, Fasting 96 mg/dL Normal 70-100 Blood [...] A/B RSV Covid Amp 03/24/2021 [place] [address] [phone] Influenza A Amplification NEGATIVE Normal Negati ve 5 Influenza B Amplification NEGATIVE Normal Negative 6 RSV Amplification NEGATIVE Normal Negative 7 Sars Covid-19 Amplification NEGATIVE Normal Negative 8 Laboratory test finding 03/24/2021 [place] [address] [phone] Packed Cells TRANSFUSED PRODU <SEE NOTE> 9 CBC With Differential 03/24/2021 [place] [address] [phone] White Blood Count 4.6 10 Normal 4.0-10.0 [...] 36.0-66.0 Lymph % 6.2 % Low 24.0-44.0 [place] % 11.4 % High 2.0-8.0 Eos % 0.4 % Normal 0.0-3.0 Baso % 0.4 % Normal 0.0-1.0 Immature Granulocyte % 0.4 % Normal 0-3.0 Nucleated Red Blood Cell % 0.7 % High 0-0 Neutrophils # 3.7 10 Normal 1.5-8.5 Lymph # 0.3 10 Low 1.5-5.0 [place] # 0.5 10 Normal 0.0-0.8 Eos # 0.0 10 Normal 0.0-0.5 Baso # 0.0 10 Normal 0.0-0.2 Metabolic Panel (14), Comprehensive 03/17/2021 [facility] [address] [place] [id number] [phone] Calcium 9.5 mg/dL 8.7-10.3 Glucose 81 mg/dL 65-99 BUN 30 mg/dL High 8-27 Creatinine 0.77 mg/dL 0.57-1.00 eGFR If NonAfricn Am 73 mL/min/1.73 >59 eGFR If Africn Am 84 mL/min/1.73 >59 10 BUN/Creatinine Ratio 39 High 12-28 Sodium 142 mmol/L 134-144 Potassium 4.4 mmol/L 3.5-5.2 Chloride 108 mmol/L High 96-106 Carbon Dioxide, Total 22 mmol/L 20-29 Protein, Total 6.1 g/dL 6.0-8.5 Albumin 4.0 g/dL 3.6-4.6 Globulin, Total 2.1 g/dL 1.5-4.5 A/G Ratio 1.9 1.2-2.2 Bilirubin, Total 0.7 mg/dL 0.0-1.2 Alkaline Phosphatase 91 IU/L 48-121 11 Ast (Sgot) 12 IU/L 0-40 Alt (SGPT) 8 IU/L 0-32 Lipid Panel 03/17/2021 [facility] [address] [place] [address] [phone] Cholesterol, Total 123 mg/dL 100-199 Triglycerides 141 mg/dL 0-149 HDL Cholesterol 37 mg/dL Low >39 VLDL Cholesterol Mark 25 mg/dL 5-40 LDL Chol Calc (Nih) 61 mg/dL 0-99 Comment: TNP Hemoglobin A1c 03/17/[address] [facility] [address] [place] [phone] Hemoglobin A1c 4.8 % 4.8-5.6 12 Albumin/Creatinine Ratio, Random Urine 03/17/2021 [facility] [address] [place] [address] [phone] Creatinine, Urine 120.2 mg/dL Not Estab. Albumin, Urine 20.1 ug/mL Not Estab. Alb/Creat Ratio 17 mg/gcreat 0-29 13 Laboratory test finding 03/14/2021 [facility] [place] [id number] [phone] Packed Cells TRANSFUSED PRODU <SEE NOTE> 14 Type & Screen -Incl Blood Type,Tye,AB SC 03/14/2021 Patient Service [place] [phone] Blood Type O POSITIVE Normal AB Screen (Indirect Farooq)Vis NEGATIVE Normal CBC With Differential 03/14/2021 [place] [address] [phone] White Blood Count 4.0 10 Normal 4.0-10.0 [...] 36.0-66.0 Lymph % 6.8 % Low 24.0-44.0 [place] % 9.3 % High 2.0-8.0 Eos % 1.0 % Normal 0.0-3.0 Baso % 0.8 % Normal 0.0-1.0 Immature Granulocyte % 0.3 % Normal 0-3.0 Nucleated Red Blood Cell % 0.0 % Normal 0-0 Neutrophils # 3.3 10 Normal 1.5-8.5 Lymph # 0.3 10 Low 1.5-5.0 [place] # 0.4 10 Normal 0.0-0.8 Eos # 0.0 10 Normal 0.0-0.5 Baso # 0.0 10 Normal 0.0-0.2 CBC With Differential 03/10/2021 [place] [address] [phone] White Blood Count 3.4 10 Low 4.0-10.0 [...] 36.0-66.0 Lymph % 7.6 % Low 24.0-44.0 [place] % 12.9 % High 2.0-8.0 Eos % 1.2 % Normal 0.0-3.0 Baso % 0.6 % Normal 0.0-1.0 Immature Granulocyte % 0.3 % Normal 0-3.0 Nucleated Red Blood Cell % 0.0 % Normal 0-0 Neutrophils # 2.6 10 Normal 1.5-8.5 Lymph # 0.3 10 Low 1.5-5.0 [place] # 0.4 10 Normal 0.0-0.8 Eos # 0.0 10 Normal 0.0-0.5 Baso # 0.0 10 Normal 0.0-0.2 Comprehensive Metabolic Profil 03/10/2021 [place] [address] [phone] Glucose, Fasting 166 mg/dL High 70-100 Blood [...] Binding Capacit 03/10/2021 [place] [address] [phone] Iron (Fe) 72 g/dL Normal 50-170 Total Iron Binding Capacity 352 g/dL Normal 250-450 Percent Saturation 20.5 % Normal 13.2-45.0 Laboratory test finding 03/10/2021 [place] [address] [phone] Carcinoembryonic Antigen < 0.5 NG/ML Normal <2.5 16 Ferritin 492 NG/ML High 8-252 Laboratory test finding 02/28/2021 [place] [address] [phone] Packed Cells TRANSFUSED PRODU <SEE NOTE> 17 Type & Screen -Incl Blood Type,Tye,AB SC 02/28/2021 [place] [address] [phone] Blood Type O POSITIVE Normal AB Screen (Indirect Faroo[place])Vis NEGATIVE Normal Laboratory test finding 02/27/2021 [place] [address] [phone] Blood Urea Nitrogen 26 mg/dL High 7-18 Creatinine With GFR 02/27/2021 Patient [place] [address] [phone] Creatinine For GFR 0.76 mg/dL Normal 0.55-1.30 Glomerular Filtration Rate > 60.0 Normal >32 1 8 Total Iron Binding Capacit 02/27/2021 [place] [address] [phone] Iron (Fe) 79 g/dL Normal 50-170 Total Iron Binding Capacity 384 g/dL Normal 250-450 Percent Saturation 20.6 % Normal 13.2-45.0 Laboratory test finding 02/27/2021 [place] [address] [phone] Ferritin 1039 NG/ML High 8-252 CBC With Differential 02/27/2021 [place] [address] [phone] White Blood Count 6.0 10 Normal 4.0-10.0 [...] 36.0-66.0 Lymph % 4.7 % Low 24.0-44.0 [place] % 11.6 % High 2.0-8.0 Eos % 0.5 % Normal 0.0-3.0 Baso % 0.3 % Normal 0.0-1.0 Immature Granulocyte % 0.8 % Normal 0-3.0 Nucleated Red Blood Cell % 0.3 % High 0-0 Neutrophils # 4.9 10 Normal 1.5-8.5 Lymph # 0.3 10 Low 1.5-5.0 [place] # 0.7 10 Normal 0.0-0.8 Eos # 0.0 10 Normal 0.0-0.5 Baso # 0.0 10 Normal 0.0-0.2 Laboratory test finding 02/10/2021 [place] [address] [phone] Packed Cells TRANSFUSED PRODU <SEE NOTE> 19 Type & Screen -Incl Blood Type,Tye,AB SC 02/10/2021 [place] [address] [phone] Blood Type O POSITIVE Normal AB Screen (Indirect Faroo[place])Vis NEGATIVE Normal CBC With Differential 02/09/2021 [facility] [place] [phone] White Blood Count 3.9 10 Low 4.0-10.0 [...] 36.0-66.0 Lymph % 7.2 % Low 24.0-44.0 [place] % 10.0 % High 2.0-8.0 Eos % 1.0 % Normal 0.0-3.0 Baso % 0.5 % Normal 0.0-1.0 Immature Granulocyte % 0.5 % Normal 0-3.0 Nucleated Red Blood Cell % 0.0 % Normal 0-0 Neutrophils # 3.1 10 Normal 1.5-8.5 Lymph # 0.3 10 Low 1.5-5.0 [place] # 0.4 10 Normal 0.0-0.8 Eos # 0.0 10 Normal 0.0-0.5 Baso # 0.0 10 Normal 0.0-0.2 Total Iron Binding Capacit 01/27/2021 [place] [address] [phone] Iron (Fe) 59 g/dL Normal 50-170 Total Iron Binding Capacity 397 g/dL Normal 250-450 Percent Saturation 14.9 % Normal 13.2-45.0 Laboratory test finding 01/27/2021 [place] [address] [phone] Ferritin 39 NG/ML Normal 8-252 Carcinoembryonic Antigen 0.5 NG/ML Normal <2.5 20 CBC With Differential 01/27/2021 [place] [address] [phone] White Blood Count 4.2 10 Normal 4.0-10.0 [...] 36.0-66.0 Lymph % 13.6 % Low 24.0-44.0 [place] % 14.6 % High 2.0-8.0 Eos % 1.4 % Normal 0.0-3.0 Baso % 0.5 % Normal 0.0-1.0 Immature Granulocyte % 0.5 % Normal 0-3.0 Nucleated Red Blood Cell % 0.0 % Normal 0-0 Neutrophils # 2.9 10 Normal 1.5-8.5 Lymph # 0.6 10 Low 1.5-5.0 [place] # 0.6 10 Normal 0.0-0.8 Eos # 0.1 10 Normal 0.0-0.5 Baso # 0.0 10 Normal 0.0-0.2 Comprehensive Metabolic Profil 01/27/2021 [place] [address] [phone] Glucose, Fasting 59 mg/dL Low 70-100 Blood [...] 1.2-2.2 Complete Blood Count 01/20/2021 [place] [address] [phone] White Blood Count 3.3 10 Low 4.0-10.0 [...] 0-0 Laboratory test finding 01/20/2021 [place] [address] [phone] Blood Urea Nitrogen 21 mg/dL High 7-18 Creatinine With GFR 01/20/2021 [place] [address] [phone] Creatinine For GFR 0.69 mg/dL Normal 0.55-1.30 Glomerular Filtration Rate > 60.0 Normal >32 2 2 Type & Screen -Incl Blood Type,Tye,AB SC 01/20/2021 [place] [address] [phone] Blood Type O POSITIVE Normal AB Screen (Indirect Farooq)Vis NEGATIVE Normal Coronavirus 2019 Nasopharygeal 01/16/2021 Patient S ervice [facility] [place] [phone] Coronavirus 2019 Nasopharygeal ASSAY INFORMATIO <SEE N OTE> 23 Type & Screen -Incl Blood Type,Tye,AB [place] 01/03/2021 [place] [address] [phone] Blood Type O POSITIVE Normal AB Screen (Indirect Faroo[place])Vis NEGATIVE Normal Laboratory test finding 01/03/2021 [place] [address] [phone] Packed Cells TRANSFUSED PRODU <SEE NOTE> 24 CBC With Differential 01/02/2021 [place] [address] [phone] White Blood Count 4.3 10 Normal 4.0-10.0 [...] 36.0-66.0 Lymph % 10.7 % Low 24.0-44.0 [place] % 13.1 % High 2.0-8.0 Eos % 0.7 % Normal 0.0-3.0 Baso % 0.5 % Normal 0.0-1.0 Immature Granulocyte % 0.5 % Normal 0-3.0 Nucleated Red Blood Cell % 0.0 % Normal 0-0 Neutrophils # 3.2 10 Normal 1.5-8.5 Lymph # 0.5 10 Low 1.5-5.0 [place] # 0.6 10 Normal 0.0-0.8 Eos # 0.0 10 Normal 0.0-0.5 Baso # 0.0 10 Normal 0.0-0.2 Comprehensive Metabolic Profil 01/02/20[place] [address] [phone] Glucose, Fasting 155 mg/dL High 70-100 Blood Urea Nitrogen 24 mg/dL High 7-18 Creatinine For GFR 0.85 mg/dL Normal 0.55-1.30 Glomerular Filtration Rate > 60.0 Normal >32 2 5 Sodium Level 137 mEq/L Normal 136-145 [...] Total Iron Binding Capacit 01/02/2021 [place] [address] [phone] Iron (Fe) 55 g/dL Normal 50-170 Total Iron Binding Capacity 398 g/dL Normal 250-450 Percent Saturation 13.8 % Normal 13.2-45.0 Laboratory test finding 01/02/2021 Patient [place] [address] [phone] Thyroid Stimulating Hormone 1.660 uIU/ML Normal 0. 358-3.740 Free T4 0.87 ng/dL Normal 0.76-1.46 Ferritin 58 NG/ML Normal 8-252 Laboratory test finding 12/23/2020 [place] [address] [phone] Lipase 73 U/L Normal 73-393 Lactic Acid Sepsis Protocol 0.8 mmol/L Normal 0.4-2.0 26 Liver Profile 12/23/2020 [place] [address] [phone] Ast/Sgot 13 U/L Normal 7-37 Alt/SGPT 14 U/L Normal 12-78 Alkaline Phosphatase 95 U/L Normal 45-117 Bilirubin,Total 0.9 mg/dL Normal 0.2-1.0 Bilirubin,Direct 0.3 mg/dL High 0.0-0.2 Total Protein 6.5 GM/DL Normal 6.4-8.2 Albumin 3.4 GM/DL Normal 3.2-5.2 Albumin/Globulin Ratio 1.1 Low 1.2-2.2 PT & Aptt 12/23/2020 [place] [address] [phone] Prothrombin Time 13.3 seconds Normal 12.5-14.3 Inr 0.99 Normal 27 Partial Thromboplastin Time 29.5 seconds Normal 24.2-38.5 Istat Chem8+ Panel 12/23/2020 [place] [address] [phone] iSTAT HCT 33.0 % Low 38.0-51.0 iSTAT Glucose 94 mg/dL Normal 70-105 iSTAT Sodium 138 mEq/L Normal 136-145 iSTAT Potassium 4.2 mEq/L Normal 3.5-5.1 iSTAT CA++ 5.0 mg/dL Normal 4.5-5.3 iSTAT Chloride 102 mEq/L Normal 98-109 iSTAT Co2 27.0 MM/L Normal 23.0-27.0 iSTAT BUN 20 mg/dL Normal 8-26 iSTAT Creatinine 0.7 mg/dL Normal 0.6-1.3 Laboratory test finding 12/23/2020 [place] [address] [phone] iSTAT Troponin 0.01 NG/ML Normal 0.00-0.08 CBC With Differential 12/23/2020 [place] [address] [phone] White Blood Count 4.5 10 Normal 4.0-10.0 [...] 36.0-66.0 Lymph % 9.7 % Low 24.0-44.0 [place] % 11.9 % High 2.0-8.0 Eos % 0.9 % Normal 0.0-3.0 Baso % 0.4 % Normal 0.0-1.0 Immature Granulocyte % 0.4 % Normal 0-3.0 Nucleated Red Blood Cell % 0.0 % Normal 0-0 Neutrophils # 3.5 10 Normal 1.5-8.5 Lymph # 0.4 10 Low 1.5-5.0 [place] # 0.5 10 Normal 0.0-0.8 Eos # 0.0 10 Normal 0.0-0.5 Baso # 0.0 10 Normal 0.0-0.2 CBC With Differential 12/19/2020 [place] [address] [phone] White Blood Count 3.8 10 Low 4.0-10.0 [...] 36.0-66.0 Lymph % 11.7 % Low 24.0-44.0 [place] % 11.9 % High 2.0-8.0 Eos % 1.1 % Normal 0.0-3.0 Baso % 0.3 % Normal 0.0-1.0 Immature Granulocyte % 0.5 % Normal 0-3.0 Nucleated Red Blood Cell % 0.0 % Normal 0-0 Neutrophils # 2.8 10 Normal 1.5-8.5 Lymph # 0.4 10 Low 1.5-5.0 [place] # 0.5 10 Normal 0.0-0.8 Eos # 0.0 10 Normal 0.0-0.5 Baso # 0.0 10 Normal 0.0-0.2 CBC With Differential 12/05/2020 Patient Service [place] 4736868 [phone] White Blood Count 3.4 10 Low 4.0-10.0 [...] 36.0-66.0 Lymph % 12.8 % Low 24.0-44.0 [place] % 13.7 % High 2.0-8.0 Eos % 1.2 % Normal 0.0-3.0 Baso % 0.6 % Normal 0.0-1.0 Immature Granulocyte % 0.3 % Normal 0-3.0 Nucleated Red Blood Cell % 0.0 % Normal 0-0 Neutrophils # 2.4 10 Normal 1.5-8.5 Lymph # 0.4 10 Low 1.5-5.0 [place] # 0.5 10 Normal 0.0-0.8 Eos # 0.0 10 Normal 0.0-0.5 Baso # 0.0 10 Normal 0.0-0.2 PT & Aptt 12/05/2020 Patient Service [place] 6547849 [phone] Prothrombin Time 13.3 seconds Normal 12.5-14.3 Inr 0.99 Normal 28 Partial Thromboplastin Time 29.4 seconds Normal 24.2-38.5 Total Iron Binding Capacit 12/05/2020 [place] [address] [phone] Iron (Fe) 94 g/dL Normal 50-170 Total Iron Binding Capacity 350 g/dL Normal 250-450 Percent Saturation 26.9 % Normal 13.2-45.0 Laboratory test finding 12/05/2020 [place] [address] [phone] Ferritin 108 NG/ML Normal 8-252 Comprehensive Metabolic Profil 11/25/2020 [facility] [place] [address] [phone] Glucose, Fasting 110 mg/dL High 70-100 Blood Urea Nitrogen 22 mg/dL High 7-18 Creatinine For GFR 0.68 mg/dL Normal 0.55-1.30 Glomerular Filtration Rate > 60.0 Normal >32 2 9 Sodium Level 140 mEq/L Normal 136-145 Potassium [...] Low 3.2-5.2 Albumin/Globulin Ratio 1.0 Low 1.2-2.2 Type & Screen -Incl Blood Type,Tye,AB SC 11/25/2020 Patient Service [place], [place] 9048641 [phone] Blood Type O POSITIVE Normal AB Screen (Indirect Farooq)Vis NEGATIVE Normal Laboratory test finding 11/25/2020 Patient Service [place] 7816660 [phone] NT-Pro BNP 1795 pg/mL High <450 Cardiac Marker Panel 11/25/2020 [place] [address] [phone] CPK Creatine Phosphokinase 60 U/L Normal 26-19 2 CK-MB Value Mass 1.3 NG/ML Normal <3.6 MB/CK Relative Index 2.17 Normal < Or =4 30 Troponin I < 0.02 NG/ML Normal < 0.10 31 Complete Blood Count 11/25/2020 [place] [address] [phone] White Blood Count 4.4 10 Normal 4.0-10.0 [...] Blood Cell % 1.6 % High 0-0 PT & Aptt 11/25/2020 [place] [address] [phone] Prothrombin Time 16.4 seconds High 12.5-14.3 Inr 1.29 Normal 32 Partial Thromboplastin Time 33.4 seconds Normal 24.2-38.5 CBC With Differential 11/07/2020 [place] [address] [phone] White Blood Count 3.2 10 Low 4.0-10.0 [...] 36.0-66.0 Lymph % 10.5 % Low 24.0-44.0 [place] % 13.3 % High 2.0-8.0 Eos % 0.9 % Normal 0.0-3.0 Baso % 0.6 % Normal 0.0-1.0 Immature Granulocyte % 0.3 % Normal 0-3.0 Nucleated Red Blood Cell % 0.0 % Normal 0-0 Neutrophils # 2.4 10 Normal 1.5-8.5 Lymph # 0.3 10 Low 1.5-5.0 [place] # 0.4 10 Normal 0.0-0.8 Eos # 0.0 10 Normal 0.0-0.5 Baso # 0.0 10 Normal 0.0-0.2 Comprehensive Metabolic Profil 11/07/2020 [place] [address] [phone] Glucose, Fasting 142 mg/dL High 70-100 Blood Urea Nitrogen 17 mg/dL Normal 7-18 Creatinine For GFR 0.72 mg/dL Normal 0.55-1.30 Glomerular Filtration Rate > 60.0 Normal >32 3 3 Sodium Level 140 mEq/L Normal 136-145 Potassium [...] Binding Capacit 11/07/2020 [place] [address] [phone] Iron (Fe) 43 g/dL Low 50-170 Total Iron Binding Capacity 302 g/dL Normal 250-450 Percent Saturation 14.2 % Normal 13.2-45.0 Laboratory test finding 11/07/2020 [place] [address] [phone] Ferritin 207 NG/ML Normal 8-252 CBC With Differential 10/21/2020 [place] [address] [phone] White Blood Count 3.2 10 Low 4.0-10.0 [...] 36.0-66.0 Lymph % 12.3 % Low 24.0-44.0 [place] % 13.0 % High 2.0-8.0 Eos % 2.2 % Normal 0.0-3.0 Baso % 0.6 % Normal 0.0-1.0 Immature Granulocyte % 0.6 % Normal 0-3.0 Nucleated Red Blood Cell % 0.0 % Normal 0-0 Neutrophils # 2.3 10 Normal 1.5-8.5 Lymph # 0.4 10 Low 1.5-5.0 [place] # 0.4 10 Normal 0.0-0.8 Eos # 0.1 10 Normal 0.0-0.5 Baso # 0.0 10 Normal 0.0-0.2 CBC With Differential 10/11/2020 [place] [address] [phone] White Blood Count 3.5 10 Low 4.0-10.0 Red Blood Count 3.05 10 Low 4.00-5.40 Hemoglobin 9.2 g/dL Low 12.0-15.5 Hematocrit 30.1 % Low 36.0-47.0 Mean Corpuscular Volume 98.7 fl High 80.0-96.0 Mean Corpuscular Hemoglobin 30.2 pg Normal 27.0-33.0 Mean Corpuscular HGB Conc 30.6 g/dL Low 32.0-36.5 Red Cell Distribution Width 18.6 % High 11.5-14.5 Platelet Count, Automated 269 10 Normal 150-450 Neutrophils % 69.8 % High 36.0-66.0 Lymph % 11.9 % Low 24.0-44.0 [place] % 14.5 % High 2.0-8.0 Eos % 2.6 % Normal 0.0-3.0 Baso % 0.9 % Normal 0.0-1.0 Immature Granulocyte % 0.3 % Normal 0-3.0 Nucleated Red Blood Cell % 0.0 % Normal 0-0 Neutrophils # 2.4 10 Normal 1.5-8.5 Lymph # 0.4 10 Low 1.5-5.0 [place] # 0.5 10 Normal 0.0-0.8 Eos # 0.1 10 Normal 0.0-0.5 Baso # 0.0 10 Normal 0.0-0.2 1 THE CEA ASSAY IS PERFORMED O N THE [facility] BY CHEMILUMINESCENCE AND SHOULD NOT BE COMPARED INTERCHANGEABLY WITH OTHER METHODS. IT SHOULD NOT BE USED ALONE A SCREENING TEST OR DIAGNOSIS FOR THE PRESENCE OR ABSENCE OF MALIGNANT DISEASE. PREDICTIONS OF DISEASE RECURRENCE SHOULD NOT BE BASED SOLELY ON VALUES OBTAINED FROM SERIAL PATIENT SERUM VALUES. 2 TRANSFUSED PRODUCT: PACKED C ELLS COUNT: 3 3 Units are mL/min/1.73 m2 Chronic Kidney Disease Staging per NKF: Stage I & II GFR >=60 Normal to Mildly Decreased Stage III GFR 30-59 Moderately Decreased Stage IV GFR 15-29 Severely Decreased Stage V GFR <15 Very Little GFR Left ESRD GFR <15 on MONEY ROOM TELLER 4 Units are mL/min/1.73 m2 Chronic Kidney Disease Staging per NKF: Stage I & II GFR >=60 Normal to Mildly Decreased Stage III GFR 30-59 Moderately Decreased Stage IV GFR 15-29 Severely Decreased Stage V GFR <15 Very Little GFR Left ESRD GFR <15 on MONEY ROOM TELLER 5 Negative results do not prec lude influenza or RSV virus infection and should not be used as the sole basis for treatment or other patient management decisions. 6 Negative results do not prec lude influenza or RSV virus infection and should not be used as the sole basis for treatment or other patient management decisions. 7 Negative results do not prec lude influenza or RSV virus infection and should not be used as the sole basis for treatment or other patient management decisions. 8 A false negative result may occur if [...] pathogens. DISCLAIMER: Testing was performed using the [employer] SARS-CoV-2 test. This test was developed and its performance characteristics determined by [employer]. This test has not been FDA cleared [...] the authorization is terminated or revoked sooner. 9 TRANSFUSED PRODUCT: PACKED C ELLS COUNT: 1 10 [facility] currently reports eGFR in compliance with the current recommendations of the [employer]. [facility] will update reporting as new guidelines are published from the NKF-ASN Task force. 11 Effective March 27 Alkaline Phosphatase reference interval [...] years 44 - 121 44 - 121 12 Prediabetes: 5.7 - 6.4 Diabetes: >6.4 Glycemic control for adults with diabetes: <7.0 13 Normal: 0 - 29 Moderately increased: 30 - 300 Severely increased: >300 14 TRANSFUSED PRODUCT: PACKED C ELLS COUNT: 2 15 Units are mL/min/1.73 m2 Chronic Kidney Disease Staging per NKF: Stage I & II GFR >=60 Normal to Mildly Decreased Stage III GFR 30-59 Moderately Decreased Stage IV GFR 15-29 Severely Decreased Stage V GFR <15 Very Little GFR Left ESRD GFR <15 on MONEY ROOM TELLER 16 THE CEA ASSAY IS PERFORMED O N THE [employer] [facility] BY CHEMILUMINESCENCE AND SHOULD NOT BE COMPARED INTERCHANGEABLY WITH OTHER METHODS. IT SHOULD NOT BE USED ALONE A SCREENING TEST OR DIAGNOSIS FOR THE PRESENCE OR ABSENCE OF MALIGNANT DISEASE. PREDICTIONS OF DISEASE RECURRENCE SHOULD NOT BE BASED SOLELY ON VALUES OBTAINED FROM SERIAL PATIENT SERUM VALUES. 17 TRANSFUSED PRODUCT: PACKED C ELLS COUNT: 2 18 Units are mL/min/1.73 m2 Chronic Kidney Disease Staging per NKF: Stage I & II GFR >=60 Normal to Mildly Decreased Stage III GFR 30-59 Moderately Decreased Stage IV GFR 15-29 Severely Decreased Stage V GFR <15 Very Little GFR Left ESRD GFR <15 on MONEY ROOM TELLER 19 TRANSFUSED PRODUCT: PACKED C ELLS COUNT: 2 20 THE [facility] ASSAY IS PERFORMED O N THE [facility] BY CHEMILUMINESCENCE AND SHOULD NOT BE COMPARED INTERCHANGEABLY WITH OTHER METHODS. IT SHOULD NOT BE USED ALONE A SCREENING TEST OR DIAGNOSIS FOR THE PRESENCE OR ABSENCE OF MALIGNANT DISEASE. PREDICTIONS OF DISEASE RECURRENCE SHOULD NOT BE BASED SOLELY ON VALUES OBTAINED FROM SERIAL PATIENT SERUM VALUES. 21 Units are mL/min/1.73 m2 Chronic Kidney Disease Staging per NKF: Stage I & II GFR >=60 Normal to Mildly Decreased Stage III GFR 30-59 Moderately Decreased Stage IV GFR 15-29 Severely Decreased Stage V GFR <15 Very Little GFR Left ESRD GFR <15 on MONEY ROOM TELLER 22 Units are mL/min/1.73 m2 Chronic Kidney Disease Staging per NKF: Stage I & II GFR >=60 Normal to Mildly Decreased Stage III GFR 30-59 Moderately Decreased Stage IV GFR 15-29 Severely Decreased Stage V GFR <15 Very Little GFR Left ESRD GFR <15 on MONEY ROOM TELLER 23 ASSAY INFORMATION: Real Time RT-PCR NOTE: The COVID-19 assay has been cleared by the U.S. Food and Drug Administration under the Emergency Use Authorization (EUA). [facility] and [facility] are designated as high complexity laboratories by the Clinical Laboratory Improvement Amendments of 1988(CLIA) and are qualified to perform this test. Not Detected 24 TRANSFUSED PRODUCT: PACKED C ELLS COUNT: 1 25 Units are mL/min/1.73 m2 Chronic Kidney Disease Staging per NKF: Stage I & II GFR >=60 Normal to Mildly Decreased Stage III GFR 30-59 Moderately Decreased Stage IV GFR 15-29 Severely Decreased Stage V GFR <15 Very Little GFR Left ESRD GFR <15 on MONEY ROOM TELLER 26 Y/N query for Sepsis Lactate Rule: Y 27 THERAPUTIC HUMAN INR VALUES INDICATIONS NORMAL RANGES PROPHYLAXIS/TREATMENT OF: VENOUS THROMBOSIS 2.0-3.0 PULMONARY EMBOLISM 2.0-3.0 PREVENTION OF SYSTEMIC EMBOLISM FROM: TISSUE HEART VALVES 2.0-3.0 ACUTE MYOCARDIAL INFARCTION 2.0-3.0 VALVULAR HEART DISEASE 2.0-3.0 ATRIAL FIBRILLATION 2.0-3.0 MECHANICAL VALVES(HIGH RISK) 2.5-3.5 RECURRENT MYOCARDIAL INFARCTION 2.5-3.5 28 THERAPUTIC HUMAN INR VALUES INDICATIONS NORMAL RANGES PROPHYLAXIS/TREATMENT OF: VENOUS THROMBOSIS 2.0-3.0 PULMONARY EMBOLISM 2.0-3.0 PREVENTION OF SYSTEMIC EMBOLISM FROM: TISSUE HEART VALVES 2.0-3.0 ACUTE MYOCARDIAL INFARCTION 2.0-3.0 VALVULAR HEART DISEASE 2.0-3.0 ATRIAL FIBRILLATION 2.0-3.0 MECHANICAL VALVES(HIGH RISK) 2.5-3.5 RECURRENT MYOCARDIAL INFARCTION 2.5-3.5 29 Units are mL/min/1.73 m2 Chronic Kidney Disease Staging per NKF: Stage I & II GFR >=60 Normal to Mildly Decreased Stage III GFR 30-59 Moderately Decreased Stage IV GFR 15-29 Severely Decreased Stage V GFR <15 Very Little GFR Left ESRD GFR <15 on MONEY ROOM TELLER 30 DIAGNOSIS CRITERIA MMB ng/ml Relative Index (RI) NON-AMI < or = 5 N/A LEVINE ZONE > 5 < or = 4 AMI > 5 > 4 31 Troponin I Reference Interva l for Siemens Collins LOCI: 99th Percentile= 0.00-0.045 ng/ml Risk Stratification: <= 0.10 ng/ml Decreased Risk for Adverse Clinical Events. 0.10-1.50 ng/ml Increased Risk for Adv erse Clinical Events. Evaluation of additional criterion and/or repeat testing in 2-6 hours is suggested to rule out myocardial damage. >= 1.50 ng/ml Indicative of Myocardial Injury. 32 THERAPUTIC HUMAN INR VALUES INDICATIONS NORMAL RANGES PROPHYLAXIS/TREATMENT OF: VENOUS THROMBOSIS 2.0-3.0 PULMONARY EMBOLISM 2.0-3.0 PREVENTION OF SYSTEMIC EMBOLISM FROM: TISSUE HEART VALVES 2.0-3.0 ACUTE MYOCARDIAL INFARCTION 2.0-3.0 VALVULAR HEART DISEASE 2.0-3.0 ATRIAL FIBRILLATION 2.0-3.0 MECHANICAL VALVES(HIGH RISK) 2.5-3.5 RECURRENT MYOCARDIAL INFARCTION 2.5-3.5 33 Units are mL/min/1.73 m2 Chronic Kidney Disease Staging per NKF: Stage I & II GFR >=60 Normal to Mildly Decreased Stage III GFR 30-59 Moderately Decreased Stage IV GFR 15-29 Severely Decreased Stage V GFR <15 Very Little GFR Left ESRD GFR <15 on MONEY ROOM TELLER Procedures Date Code Description Status 03/28/2021 [id number] [place] W/I 7 Days Of DC, Comm W/I 2 Dys Completed 03/23/2021 [id number] Office/Outpatient Established Mo d MDM 30-39 Min Completed 03/23/2021 [id number] Diabetic Foot Exam Completed 01/25/2021 [id number] [place] W/I 7 Days Of DC, Comm W/I 2 Dys Completed 12/27/2020 [id number] Office/Outpatient Established Mo d MDM 30-39 Min Completed 12/19/2020 [id number] Office/Outpatient Established Mo d MDM 30-39 Min Completed 12/02/2020 [id number] [place] W/I 7 Days Of DC, Comm W/I 2 Dys Completed Medical Devices Description No Information Available Encounters Type Date Location Provider Dx Diagnosis Office Visit 03/28/2021 11:45a Main Office Nadiya Bryan, SUZANNE D64.9 Anemia, unspecified K29.61 Other gastritis with bleedin g Office Visit 03/23/2021 3:45p Main Office PleNadiya tracey, NURSING ASSOCIATE E11.6 9 Type 2 diabetes mellitus with other specified complication C18.9 Malignant neoplasm of colon, unspecified 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 E78.2 Mixed hyperlipidemia I10 Essential (primary) hyperten yara I48.91 Unspecified atrial fibrillat ion D64.9 Anemia, unspecified Office Visit 01/25/2021 2:15p Main Office PleNadiya tracey, NURSING ASSOCIATE D64.9 Anemia, unspecified K29.61 Other gastritis with bleedin g Office Visit 12/27/2020 3:45p Main Office Anitha Gamez M.D. 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 C18.9 Malignant neoplasm of colon, unspecified I48.91 Unspecified atrial fibrillat ion Office Visit 12/02/2020 10:30a Main Office PleNadiya tracey, NURSING ASSOCIATE D64.9 Anemia, unspecified E11.69 Type 2 diabetes mellitus wit h other specified complication E78.2 Mixed hyperlipidemia I10 Essential (primary) hyperten yara 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 C18.9 Malignant neoplasm of colon, unspecified I48.91 Unspecified atrial fibrillat ion Assessments Date Code Description Provider 03/28/2021 D64.9 Anemia, unspecified 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, NURSING ASSOCIATE 03/28/2021 K29.61 Other gastritis with bleeding Pl Nadiya hogan, NURSING ASSOCIATE 03/23/2021 E11.69 Type 2 diabetes mellitus with ot her specified complication Nadiya Bryan, NURSING ASSOCIATE 03/23/2021 C18.9 Malignant neoplasm of colon, uns pecified PleNadiya tracey, NURSING ASSOCIATE 03/23/2021 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 Nadiya Bryan , NURSING ASSOCIATE 03/23/2021 E78.2 Mixed hyperlipidemia Chayo Bryan, NURSING ASSOCIATE 03/23/2021 I10 Essential (primary) hypertension Pleskach, Nadiya, NURSING ASSOCIATE 03/23/2021 I48.91 Unspecified atrial fibrillation Pleskach, Nadiya, NURSING ASSOCIATE 03/23/2021 D64.9 Anemia, unspecified Pleskach, Mo lly, NURSING ASSOCIATE 01/25/2021 D64.9 Anemia, unspecified Pleskach, Mo lly, NURSING ASSOCIATE 01/25/2021 K29.61 Other gastritis with bleeding Pl Nadiya hogan, NURSING ASSOCIATE 12/27/2020 E11.69 Type 2 diabetes mellitus with ot her specified complication Anitha Gaemz M.D. 12/27/2020 C18.9 Malignant neoplasm of colon, uns pecified Anitha Gamez M.D. 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 12/27/2020 D64.9 Anemia, unspecified Angela Gamez M.D. 12/19/2020 E11.69 Type 2 diabetes mellitus with ot her specified complication Pleskach, Nadiya, NURSING ASSOCIATE 12/19/2020 E78.2 Mixed hyperlipidemia Pleskach, M jarocho, NURSING ASSOCIATE 12/19/2020 I10 Essential (primary) hypertension Pleskach, Nadiya, NURSING ASSOCIATE 12/19/2020 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 Pleskach, Nadiya , NURSING ASSOCIATE 12/19/2020 C18.9 Malignant neoplasm of colon, uns pecified Pleskach, Nadiya, NURSING ASSOCIATE 12/19/2020 I48.91 Unspecified atrial fibrillation Pleskach, Nadiya, NURSING ASSOCIATE 12/02/2020 D64.9 Anemia, unspecified Pleskach, Mo lly, NURSING ASSOCIATE 12/02/2020 E11.69 Type 2 diabetes mellitus with ot her specified complication Pleskach, Nadiya, NURSING ASSOCIATE 12/02/2020 E78.2 Mixed hyperlipidemia Pleskach, M jarocho, NURSING ASSOCIATE 12/02/2020 I10 Essential (primary) hypertension Pleskach, Nadiya, NURSING ASSOCIATE 12/02/2020 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 Pleskach, Nadiya , NURSING ASSOCIATE 12/02/2020 C18.9 Malignant neoplasm of colon, uns pecified Pleskach, Nadiya, NURSING ASSOCIATE 12/02/2020 I48.91 Unspecified atrial fibrillation Nadiya [...]
--- OUTSIDE RECORDS SUMMARY | 2021-05-23 16:59 | CCD | Continuity of Care Document ---
Author Author Meron BRYAN REAL ESTATE SALES AGENT Organization Unknown Address [address] [place] [address] Phone [phone] Care Team Providers Care Aircraft Manager Name Role Phone [facility] AUTM [phone] Niels Decker M.D. AUTM [phone] [facility] AUTM [phone] Jeff Cramer AUTM [phone] Problems Active Problems Provider Date Type 2 [...] on an empty stomach 12tabs Deejay Bryan [employer]STATE SALES AGENT 09/07/2020 Adapt Lubricating Deodorant Liqui d Use as Directed Store 6 236units C18.9 Nadiya Bryan FNP 06/16/2020 Z93.2 [place] Remover Wipes Misc use 3-4 wipes every 4 days and as needed when changing ostomy 2Box Z93.2 Nadiya Bryan FNP 06/16/2020 C18.9 Efren Adapt Ceraing change every 4-5 days and as needed ref #[id number] 20units Nadiya Bryan FNP 05/05/2020 Efren 2 Piece Ostomy Skin Barrier ref # [id number] márquez ge every 4-5 days and as needed 20units C18.9 Nadiya Bryan [employer]STATE SALES AGENT 04/14/2020 Z93.2 Efren 2 Piece Drainable Ostomy Pouch ref # [id number] c hange every 4-5 days and as needed 20units C18.9 Nadiya Bryan [employer]STATE SALES AGENT 04/14/2020 Z93.2 Diltiazem HCL ER Beads 240mg [...] CPT Code Status Date Vaccine Lot # [id number] Refused 04/17/2016 Pneumococcal Vaccine 80875 Refused 04/17/2016 Prevnar 13 63811 Refused 04/17/2016 Influenza Vaccination Vital Signs Date Vital Result Comment 03/28/2021 11:51am BP Systolic 113 mmHg BP Diastolic 83 mmHg Heart Rate 127 /min Body Temperature 98.0 F Respiratory Rate 18 /min Height 61.5 inches 5'1.50" Weight 114.38 lb O2 % BldC Oximetry 100 % [place] Body Weight 105 lb BMI (Body Mass Index) 21.3 kg/m2 03/23/2021 3:47pm BP Systolic 110 mmHg BP Diastolic 62 mmHg Heart Rate 64 /min Body Temperature 98.7 F Respiratory Rate 16 /min Height 61.5 inches 5'1.50" Weight 116.38 lb O2 % BldC Oximetry 99 % [place] Body Weight 105 lb BMI (Body Mass Index) 21.6 kg/m2 Results Test Acquired Date Facility Test Result H/L Range Note Total Iron Binding Capacit 04/07/2021 [facility] [place], [place] [id number] [phone] Iron (Fe) 48 g/dL Low 50-170 Total Iron Binding Capacity 353 g/dL Normal 250-450 Percent Saturation 13.6 % Normal 13.2-45.0 Laboratory test finding 04/07/2021 Patient Service [facility] [place], [place] [id number] [phone] Carcinoembryonic Antigen < 0.5 NG/ML Normal <2.5 1 Ferritin 66 NG/ML Normal 8-252 CBC With Differential 04/07/2021 [place] [id number] [phone] White Blood Count 3.4 10 Low 4.0-10.0 [...] 36.0-66.0 Lymph % 8.5 % Low 24.0-44.0 [place] % 10.9 % High 2.0-8.0 Eos % 0.9 % Normal 0.0-3.0 Baso % 0.6 % Normal 0.0-1.0 Immature Granulocyte % 0.6 % Normal 0-3.0 Nucleated Red Blood Cell % 0.0 % Normal 0-0 Neutrophils # 2.7 10 Normal 1.5-8.5 Lymph # 0.3 10 Low 1.5-5.0 [place] # 0.4 10 Normal 0.0-0.8 Eos # 0.0 10 Normal 0.0-0.5 Baso # 0.0 10 Normal 0.0-0.2 Laboratory test finding 04/07/2021 [facility] [place] [id number] [phone] Packed Cells TRANSFUSED PRODU <SEE NOTE> 2 Type & Screen -Incl Blood Type,Tye,AB SC 04/07/2021 [facility] [place] [id number] [phone] Blood Type O POSITIVE Normal AB Screen (Indirect Faroqo)Vis NEGATIVE Normal Comprehensive Metabolic Profil 04/07/2021 [facility] [place] [id number] [phone] Glucose, Fasting 184 mg/dL High 70-100 Blood [...] Comprehensive Metabolic Profil 03/24/2021 [place] [address] [phone] Glucose, Fasting 96 mg/dL Normal 70-100 Blood [...] A/B RSV Covid Amp 03/24/2021 [place] [address] [phone] Influenza A Amplification NEGATIVE Normal Negati ve 5 Influenza B Amplification NEGATIVE Normal Negative 6 RSV Amplification NEGATIVE Normal Negative 7 Sars Covid-19 Amplification NEGATIVE Normal Negative 8 Laboratory test finding 03/24/2021 [place] [address] [phone] Packed Cells TRANSFUSED PRODU <SEE NOTE> 9 CBC With Differential 03/24/2021 [place] [address] [phone] White Blood Count 4.6 10 Normal 4.0-10.0 [...] 36.0-66.0 Lymph % 6.2 % Low 24.0-44.0 [place] % 11.4 % High 2.0-8.0 Eos % 0.4 % Normal 0.0-3.0 Baso % 0.4 % Normal 0.0-1.0 Immature Granulocyte % 0.4 % Normal 0-3.0 Nucleated Red Blood Cell % 0.7 % High 0-0 Neutrophils # 3.7 10 Normal 1.5-8.5 Lymph # 0.3 10 Low 1.5-5.0 [place] # 0.5 10 Normal 0.0-0.8 Eos # 0.0 10 Normal 0.0-0.5 Baso # 0.0 10 Normal 0.0-0.2 Metabolic Panel (14), Comprehensive 03/17/2021 [facility] [address] [place] [id number] [phone] Calcium 9.5 mg/dL 8.7-10.3 Glucose 81 mg/dL [...] IU/L 0-32 Lipid Panel 03/17/2021 [facility] [address] [place] [address] [phone] Cholesterol, Total 123 mg/dL 100-199 Triglycerides 141 mg/dL 0-149 HDL Cholesterol 37 mg/dL Low >39 VLDL Cholesterol Mark 25 mg/dL 5-40 LDL Chol Calc (Nih) 61 mg/dL 0-99 Comment: TNP Hemoglobin A1c 03/17/[address] [facility] [address] [place] [address] [phone] Hemoglobin A1c 4.8 % 4.8-5.6 12 Albumin/Creatinine Ratio, Random Urine 03/17/2021 [facility] [address] [place] [address] [phone] Creatinine, Urine 120.2 mg/dL Not Estab. Albumin, Urine 20.1 ug/mL Not Estab. Alb/Creat Ratio 17 mg/gcreat 0-29 13 Laboratory test finding 03/14/2021 [facility] [place] 4847046 [phone] Packed Cells TRANSFUSED PRODU <SEE NOTE> 14 Type & Screen -Incl Blood Type,Tye,AB SC 03/14/2021 Patient Service [place] [phone] [phone] Blood Type O POSITIVE Normal AB Screen (Indirect Farooq)Vis NEGATIVE Normal CBC With Differential 03/14/2021 [place] [address] [phone] White Blood Count 4.0 10 Normal 4.0-10.0 [...] 36.0-66.0 Lymph % 6.8 % Low 24.0-44.0 [place] % 9.3 % High 2.0-8.0 Eos % 1.0 % Normal 0.0-3.0 Baso % 0.8 % Normal 0.0-1.0 Immature Granulocyte % 0.3 % Normal 0-3.0 Nucleated Red Blood Cell % 0.0 % Normal 0-0 Neutrophils # 3.3 10 Normal 1.5-8.5 Lymph # 0.3 10 Low 1.5-5.0 [place] # 0.4 10 Normal 0.0-0.8 Eos # 0.0 10 Normal 0.0-0.5 Baso # 0.0 10 Normal 0.0-0.2 CBC With Differential 03/10/2021 [place] [address] [phone] White Blood Count 3.4 10 Low 4.0-10.0 [...] 36.0-66.0 Lymph % 7.6 % Low 24.0-44.0 [place] % 12.9 % High 2.0-8.0 Eos % 1.2 % Normal 0.0-3.0 Baso % 0.6 % Normal 0.0-1.0 Immature Granulocyte % 0.3 % Normal 0-3.0 Nucleated Red Blood Cell % 0.0 % Normal 0-0 Neutrophils # 2.6 10 Normal 1.5-8.5 Lymph # 0.3 10 Low 1.5-5.0 [place] # 0.4 10 Normal 0.0-0.8 Eos # 0.0 10 Normal 0.0-0.5 Baso # 0.0 10 Normal 0.0-0.2 Comprehensive Metabolic Profil 03/10/2021 [place] [address] [phone] Glucose, Fasting 166 mg/dL High 70-100 Blood [...] Binding Capacit 03/10/2021 [place] [address] [phone] Iron (Fe) 72 g/dL Normal 50-170 Total Iron Binding Capacity 352 g/dL Normal 250-450 Percent Saturation 20.5 % Normal 13.2-45.0 Laboratory test finding 03/10/2021 [place] [address] [phone] Carcinoembryonic Antigen < 0.5 NG/ML Normal <2.5 16 Ferritin 492 NG/ML High 8-252 Laboratory test finding 02/28/2021 [place] [address] [phone] Packed Cells TRANSFUSED PRODU <SEE NOTE> 17 Type & Screen -Incl Blood Type,Tye,AB SC 02/28/2021 [place] [address] [phone] Blood Type O POSITIVE Normal AB Screen (Indirect Farooq)Vis NEGATIVE Normal Laboratory test finding 02/27/2021 [place] [address] [phone] Blood Urea Nitrogen 26 mg/dL High 7-18 Creatinine With GFR 02/27/2021 [place] [address] [phone] Creatinine For GFR 0.76 mg/dL Normal 0.55-1.30 Glomerular Filtration Rate > 60.0 Normal >32 1 8 Total Iron Binding Capacit 02/27/2021 [place] [address] [phone] Iron (Fe) 79 g/dL Normal 50-170 Total Iron Binding Capacity 384 g/dL Normal 250-450 Percent Saturation 20.6 % Normal 13.2-45.0 Laboratory test finding 02/27/2021 [place] [address] [phone] Ferritin 1039 NG/ML High 8-252 CBC With Differential 02/27/2021 [place] [address] [phone] White Blood Count 6.0 10 Normal 4.0-10.0 [...] 36.0-66.0 Lymph % 4.7 % Low 24.0-44.0 [place] % 11.6 % High 2.0-8.0 Eos % 0.5 % Normal 0.0-3.0 Baso % 0.3 % Normal 0.0-1.0 Immature Granulocyte % 0.8 % Normal 0-3.0 Nucleated Red Blood Cell % 0.3 % High 0-0 Neutrophils # 4.9 10 Normal 1.5-8.5 Lymph # 0.3 10 Low 1.5-5.0 [place] # 0.7 10 Normal 0.0-0.8 Eos # 0.0 10 Normal 0.0-0.5 Baso # 0.0 10 Normal 0.0-0.2 Laboratory test finding 02/10/2021 [place] [address] [phone] Packed Cells TRANSFUSED PRODU <SEE NOTE> 19 Type & Screen -Incl Blood Type,Tye,AB SC 02/10/2021 [place] [address] [phone] Blood Type O POSITIVE Normal AB Screen (Indirect Farooq)Vis NEGATIVE Normal CBC With Differential 02/09/2021 Patient [facility] [place] [address]7071 [phone] White Blood Count 3.9 10 Low 4.0-10.0 [...] 36.0-66.0 Lymph % 7.2 % Low 24.0-44.0 [place] % 10.0 % High 2.0-8.0 Eos % 1.0 % Normal 0.0-3.0 Baso % 0.5 % Normal 0.0-1.0 Immature Granulocyte % 0.5 % Normal 0-3.0 Nucleated Red Blood Cell % 0.0 % Normal 0-0 Neutrophils # 3.1 10 Normal 1.5-8.5 Lymph # 0.3 10 Low 1.5-5.0 [place] # 0.4 10 Normal 0.0-0.8 Eos # 0.0 10 Normal 0.0-0.5 Baso # 0.0 10 Normal 0.0-0.2 Total Iron Binding Capacit 01/27/2021 [place] [address] [phone] Iron (Fe) 59 g/dL Normal 50-170 Total Iron Binding Capacity 397 g/dL Normal 250-450 Percent Saturation 14.9 % Normal 13.2-45.0 Laboratory test finding 01/27/2021 [place] [address] [phone] Ferritin 39 NG/ML Normal 8-252 Carcinoembryonic Antigen 0.5 NG/ML Normal <2.5 20 CBC With Differential 01/27/2021 [place] [address] [phone] White Blood Count 4.2 10 Normal 4.0-10.0 [...] 36.0-66.0 Lymph % 13.6 % Low 24.0-44.0 [place] % 14.6 % High 2.0-8.0 Eos % 1.4 % Normal 0.0-3.0 Baso % 0.5 % Normal 0.0-1.0 Immature Granulocyte % 0.5 % Normal 0-3.0 Nucleated Red Blood Cell % 0.0 % Normal 0-0 Neutrophils # 2.9 10 Normal 1.5-8.5 Lymph # 0.6 10 Low 1.5-5.0 [place] # 0.6 10 Normal 0.0-0.8 Eos # 0.1 10 Normal 0.0-0.5 Baso # 0.0 10 Normal 0.0-0.2 Comprehensive Metabolic Profil 01/27/2021 [place] [address] [phone] Glucose, Fasting 59 mg/dL Low 70-100 Blood [...] 1.2-2.2 Complete Blood Count 01/20/2021 [place] [address] [phone] White Blood Count 3.3 10 Low 4.0-10.0 [...] 0-0 Laboratory test finding 01/20/2021 [place] [address] [phone] Blood Urea Nitrogen 21 mg/dL High 7-18 Creatinine With GFR 01/20/2021 [place] [address] [phone] Creatinine For GFR 0.69 mg/dL Normal 0.55-1.30 Glomerular Filtration Rate > 60.0 Normal >32 2 2 Type & Screen -Incl Blood Type,Tye,AB SC 01/20/2021 [place] [address] [phone] Blood Type O POSITIVE Normal AB Screen (Indirect Farooq)Vis NEGATIVE Normal Coronavirus 2019 Nasopharygeal 01/16/2021 Patient S ervice Center [place] 4847018 [phone] Coronavirus 2019 Nasopharygeal ASSAY INFORMATIO <SEE N OTE> 23 Type & Screen -Incl Blood Type,Tye,AB UT 01/03/2021 [place] [address] [phone] Blood Type O POSITIVE Normal AB Screen (Indirect Farooq)Vis NEGATIVE Normal Laboratory test finding 01/03/2021 [place] [address] [phone] Packed Cells TRANSFUSED PRODU <SEE NOTE> 24 CBC With Differential 01/02/2021 [place] [address] [phone] White Blood Count 4.3 10 Normal 4.0-10.0 [...] 36.0-66.0 Lymph % 10.7 % Low 24.0-44.0 [place] % 13.1 % High 2.0-8.0 Eos % 0.7 % Normal 0.0-3.0 Baso % 0.5 % Normal 0.0-1.0 Immature Granulocyte % 0.5 % Normal 0-3.0 Nucleated Red Blood Cell % 0.0 % Normal 0-0 Neutrophils # 3.2 10 Normal 1.5-8.5 Lymph # 0.5 10 Low 1.5-5.0 [place] # 0.6 10 Normal 0.0-0.8 Eos # 0.0 10 Normal 0.0-0.5 Baso # 0.0 10 Normal 0.0-0.2 Comprehensive Metabolic Profil 01/02/2021 [place] [address] [phone] Glucose, Fasting 155 mg/dL High 70-100 Blood [...] Iron Binding Capacit 01/02/2021 [place] [address] [phone] Iron (Fe) 55 g/dL Normal 50-170 Total Iron Binding Capacity 398 g/dL Normal 250-450 Percent Saturation 13.8 % Normal 13.2-45.0 Laboratory test finding 01/02/2021 Patient [facility] [place] [address] [phone] Thyroid Stimulating Hormone 1.660 uIU/ML Normal 0. 358-3.740 Free T4 0.87 ng/dL Normal 0.76-1.46 Ferritin 58 NG/ML Normal 8-252 Laboratory test finding 12/23/2020 [place] [address] [phone] Lipase 73 U/L Normal 73-393 Lactic Acid Sepsis Protocol 0.8 mmol/L Normal 0.4-2.0 26 Liver Profile 12/23/2020 [place] [address] [phone] Ast/Sgot 13 U/L Normal 7-37 Alt/SGPT 14 U/L Normal 12-78 Alkaline Phosphatase 95 U/L Normal 45-117 Bilirubin,Total 0.9 mg/dL Normal 0.2-1.0 Bilirubin,Direct 0.3 mg/dL High 0.0-0.2 Total Protein 6.5 GM/DL Normal 6.4-8.2 Albumin 3.4 GM/DL Normal 3.2-5.2 Albumin/Globulin Ratio 1.1 Low 1.2-2.2 PT & Aptt 12/23/2020 [place] [address] [phone] Prothrombin Time 13.3 seconds Normal 12.5-14.3 Inr 0.99 Normal 27 Partial Thromboplastin Time 29.5 seconds Normal 24.2-38.5 Istat Chem8+ Panel 12/23/2020 [place] [address] [phone] iSTAT HCT 33.0 % Low 38.0-51.0 iSTAT Glucose 94 mg/dL Normal 70-105 iSTAT Sodium 138 mEq/L Normal 136-145 iSTAT Potassium 4.2 mEq/L Normal 3.5-5.1 iSTAT CA++ 5.0 mg/dL Normal 4.5-5.3 iSTAT Chloride 102 mEq/L Normal 98-109 iSTAT Co2 27.0 MM/L Normal 23.0-27.0 iSTAT BUN 20 mg/dL Normal 8-26 iSTAT Creatinine 0.7 mg/dL Normal 0.6-1.3 Laboratory test finding 12/23/2020 [place] [address] [phone] iSTAT Troponin 0.01 NG/ML Normal 0.00-0.08 CBC With Differential 12/23/2020 [place] [address] [phone] White Blood Count 4.5 10 Normal 4.0-10.0 [...] 36.0-66.0 Lymph % 9.7 % Low 24.0-44.0 [place] % 11.9 % High 2.0-8.0 Eos % 0.9 % Normal 0.0-3.0 Baso % 0.4 % Normal 0.0-1.0 Immature Granulocyte % 0.4 % Normal 0-3.0 Nucleated Red Blood Cell % 0.0 % Normal 0-0 Neutrophils # 3.5 10 Normal 1.5-8.5 Lymph # 0.4 10 Low 1.5-5.0 [place] # 0.5 10 Normal 0.0-0.8 Eos # 0.0 10 Normal 0.0-0.5 Baso # 0.0 10 Normal 0.0-0.2 CBC With Differential 12/19/2020 [place] [address] [phone] White Blood Count 3.8 10 Low 4.0-10.0 [...] 36.0-66.0 Lymph % 11.7 % Low 24.0-44.0 [place] % 11.9 % High 2.0-8.0 Eos % 1.1 % Normal 0.0-3.0 Baso % 0.3 % Normal 0.0-1.0 Immature Granulocyte % 0.5 % Normal 0-3.0 Nucleated Red Blood Cell % 0.0 % Normal 0-0 Neutrophils # 2.8 10 Normal 1.5-8.5 Lymph # 0.4 10 Low 1.5-5.0 [place] # 0.5 10 Normal 0.0-0.8 Eos # 0.0 10 Normal 0.0-0.5 Baso # 0.0 10 Normal 0.0-0.2 CBC With Differential 12/05/2020 Patient Service [place] [id number] [phone] White Blood Count 3.4 10 Low 4.0-10.0 [...] 36.0-66.0 Lymph % 12.8 % Low 24.0-44.0 [place] % 13.7 % High 2.0-8.0 Eos % 1.2 % Normal 0.0-3.0 Baso % 0.6 % Normal 0.0-1.0 Immature Granulocyte % 0.3 % Normal 0-3.0 Nucleated Red Blood Cell % 0.0 % Normal 0-0 Neutrophils # 2.4 10 Normal 1.5-8.5 Lymph # 0.4 10 Low 1.5-5.0 [place] # 0.5 10 Normal 0.0-0.8 Eos # 0.0 10 Normal 0.0-0.5 Baso # 0.0 10 Normal 0.0-0.2 PT & Aptt 12/05/2020 Patient Service [place] 5080580 [phone] Prothrombin Time 13.3 seconds Normal 12.5-14.3 Inr 0.99 Normal 28 Partial Thromboplastin Time 29.4 seconds Normal 24.2-38.5 Total Iron Binding Capacit 12/05/2020 [place] [address] [phone] Iron (Fe) 94 g/dL Normal 50-170 Total Iron Binding Capacity 350 g/dL Normal 250-450 Percent Saturation 26.9 % Normal 13.2-45.0 Laboratory test finding 12/05/2020 [place] [address] [phone] Ferritin 108 NG/ML Normal 8-252 Comprehensive Metabolic Profil 11/25/2020 [place] [address] [phone] Glucose, Fasting 110 mg/dL High 70-100 Blood [...] -Incl Blood Type,Tye,AB SC 11/25/2020 Patient Service [place], [place] 2384593 [phone] Blood Type O POSITIVE Normal AB Screen (Indirect Farooq)Vis NEGATIVE Normal Laboratory test finding 11/25/2020 Patient Service [place] 7565163 [phone] NT-Pro BNP 1795 pg/mL High <450 Cardiac Marker Panel 11/25/2020 [place] [address] [phone] CPK Creatine Phosphokinase 60 U/L Normal 26-19 2 CK-MB Value Mass 1.3 NG/ML Normal <3.6 MB/CK Relative Index 2.17 Normal < Or =4 30 Troponin I < 0.02 NG/ML Normal < 0.10 31 Complete Blood Count 11/25/2020 [place] [address] [phone] White Blood Count 4.4 10 Normal 4.0-10.0 [...] & Aptt 11/25/2020 Patient [place] [address] [phone] Prothrombin Time 16.4 seconds High 12.5-14.3 Inr 1.29 Normal 32 Partial Thromboplastin Time 33.4 seconds Normal 24.2-38.5 CBC With Differential 11/07/2020 [place] [address] [phone] White Blood Count 3.2 10 Low 4.0-10.0 [...] 36.0-66.0 Lymph % 10.5 % Low 24.0-44.0 [place] % 13.3 % High 2.0-8.0 Eos % 0.9 % Normal 0.0-3.0 Baso % 0.6 % Normal 0.0-1.0 Immature Granulocyte % 0.3 % Normal 0-3.0 Nucleated Red Blood Cell % 0.0 % Normal 0-0 Neutrophils # 2.4 10 Normal 1.5-8.5 Lymph # 0.3 10 Low 1.5-5.0 [place] # 0.4 10 Normal 0.0-0.8 Eos # 0.0 10 Normal 0.0-0.5 Baso # 0.0 10 Normal 0.0-0.2 Comprehensive Metabolic Profil 11/07/2020 [place] [address] [phone] Glucose, Fasting 142 mg/dL High 70-100 Blood [...] Binding Capacit 11/07/2020 [place] [address] [phone] Iron (Fe) 43 g/dL Low 50-170 Total Iron Binding Capacity 302 g/dL Normal 250-450 Percent Saturation 14.2 % Normal 13.2-45.0 Laboratory test finding 11/07/2020 [place] [address] [phone] Ferritin 207 NG/ML Normal 8-252 CBC With Differential 10/21/2020 [place] [address] [phone] White Blood Count 3.2 10 Low 4.0-10.0 [...] 36.0-66.0 Lymph % 12.3 % Low 24.0-44.0 [place] % 13.0 % High 2.0-8.0 Eos % 2.2 % Normal 0.0-3.0 Baso % 0.6 % Normal 0.0-1.0 Immature Granulocyte % 0.6 % Normal 0-3.0 Nucleated Red Blood Cell % 0.0 % Normal 0-0 Neutrophils # 2.3 10 Normal 1.5-8.5 Lymph # 0.4 10 Low 1.5-5.0 [place] # 0.4 10 Normal 0.0-0.8 Eos # 0.1 10 Normal 0.0-0.5 Baso # 0.0 10 Normal 0.0-0.2 CBC With Differential 10/11/2020 [place] [address] [phone] White Blood Count 3.5 10 Low 4.0-10.0 [...] 36.0-66.0 Lymph % 11.9 % Low 24.0-44.0 [place] % 14.5 % High 2.0-8.0 Eos % 2.6 % Normal 0.0-3.0 Baso % 0.9 % Normal 0.0-1.0 Immature Granulocyte % 0.3 % Normal 0-3.0 Nucleated Red Blood Cell % 0.0 % Normal 0-0 Neutrophils # 2.4 10 Normal 1.5-8.5 Lymph # 0.4 10 Low 1.5-5.0 [place] # 0.5 10 Normal 0.0-0.8 Eos # 0.1 10 Normal 0.0-0.5 Baso # 0.0 10 Normal 0.0-0.2 1 THE CEA ASSAY IS PERFORMED O N THE [employer] BY CHEMILUMINESCENCE AND SHOULD NOT BE COMPARED [...] Little GFR Left ESRD GFR <15 on PARALEGAL ASSISTANT 4 Units are mL/min/1.73 m2 Chronic Kidney Disease Staging per NKF: Stage I & II GFR >=60 Normal to Mildly Decreased Stage III GFR 30-59 Moderately Decreased Stage IV GFR 15-29 Severely Decreased Stage V GFR <15 Very Little GFR Left ESRD GFR <15 on PARALEGAL ASSISTANT 5 Negative results do not prec lude [...] pathogens. DISCLAIMER: Testing was performed using the [employer] SARS-CoV-2 test. This test was developed and its performance characteristics determined by [employer]. This test has not been FDA cleared [...] Little GFR Left ESRD GFR <15 on PARALEGAL ASSISTANT 16 THE CEA ASSAY IS PERFORMED O N THE [facility] BY CHEMILUMINESCENCE AND SHOULD NOT BE [...] Little GFR Left ESRD GFR <15 on PARALEGAL ASSISTANT 19 TRANSFUSED PRODUCT: PACKED C ELLS COUNT: [...] Little GFR Left ESRD GFR <15 on PARALEGAL ASSISTANT 22 Units are mL/min/1.73 m2 Chronic Kidney Disease Staging per NKF: Stage I & II GFR >=60 Normal to Mildly Decreased Stage III GFR 30-59 Moderately Decreased Stage IV GFR 15-29 Severely Decreased Stage V GFR <15 Very Little GFR Left ESRD GFR <15 on PARALEGAL ASSISTANT 23 ASSAY INFORMATION: Real Time RT-PCR NOTE: The COVID-19 assay has been cleared by the U.S. Food and Drug Administration under the Emergency Use Authorization (EUA). [facility] and [facility] are designated as high complexity laboratories by [...] Little GFR Left ESRD GFR <15 on PARALEGAL ASSISTANT 26 Y/N query for Sepsis Lactate Rule: [...] Little GFR Left ESRD GFR <15 on PARALEGAL ASSISTANT 30 DIAGNOSIS CRITERIA MMB ng/ml Relative Index (RI) NON-AMI < or = 5 N/A LEVINE ZONE > 5 < or = 4 AMI > 5 > 4 31 Troponin I Reference Interva l for Siemens Crane LOCI: 99th Percentile= 0.00-0.045 ng/ml Risk Stratification: [...] Little GFR Left ESRD GFR <15 on PARALEGAL ASSISTANT Procedures Date Code Description Status 03/28/2021 77357 [place] W/I 7 Days Of DC, Comm W/I 2 Dys Completed 03/23/2021 20036 Office/Outpatient Established Mo d MDM 30-39 Min Completed 03/23/2021 [id number] Diabetic Foot Exam Completed 01/25/2021 64403 [place] W/I 7 Days Of DC, Comm W/I 2 Dys Completed 12/27/2020 86263 Office/Outpatient Established Mo d MDM 30-39 Min Completed 12/19/2020 01657 Office/Outpatient Established Mo d MDM 30-39 Min Completed 12/02/2020 42349 [place] W/I 7 Days Of DC, Comm W/I 2 Dys Completed Medical Devices Description No Information Available Encounters Type Date Location Provider Dx Diagnosis Office Visit 03/28/2021 11:45a Main Office Nadiya Bryan, SUZANNE D64.9 Anemia, unspecified K29.61 Other gastritis with bleedin g Office Visit 03/23/2021 3:45p Main Office PleNadiya tracey, REAL ESTATE SALES AGENT E11.6 9 Type 2 diabetes mellitus with other specified complication C18.9 Malignant neoplasm of colon, unspecified 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 C18.9 Malignant neoplasm of colon, unspecified I48.91 Unspecified atrial fibrillat ion Assessments Date Code Description Provider 03/28/2021 D64.9 Anemia, unspecified 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, [employer] 03/28/2021 K29.61 Other gastritis with bleeding Pl Nadiya hogan, [employer] 03/23/2021 E11.69 Type 2 diabetes mellitus with ot her specified complication Nadiya Bryan, [employer] 03/23/2021 C18.9 Malignant neoplasm of colon, uns pecified PleNadiya tracey, [employer] 03/23/2021 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 Nadiya Bryan , [employer] 03/23/2021 E78.2 Mixed hyperlipidemia Chayo Bryan, [employer] 03/23/2021 I10 Essential (primary) hypertension Pleskach, Nadiya, [employer] 03/23/2021 I48.91 Unspecified atrial fibrillation Pleskach, Nadiya, [employer] 03/23/2021 D64.9 Anemia, unspecified Pleskach, Mo lly, [employer] 01/25/2021 D64.9 Anemia, unspecified Pleskach, Mo lly, [employer] 01/25/2021 K29.61 Other gastritis with bleeding Pl Nadiya hogan, [employer] 12/27/2020 E11.69 Type 2 diabetes mellitus with ot her specified complication Anitha Gamez M.D. 12/27/2020 C18.9 Malignant neoplasm of colon, uns pecified Anitha Gamez M.D. 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 12/27/2020 D64.9 Anemia, unspecified Angela Gamez M.D. 12/19/2020 E11.69 Type 2 diabetes mellitus with ot her specified complication Pleskach, Nadiya, [employer] 12/19/2020 E78.2 Mixed hyperlipidemia Pleskach, M jarocho, [employer] 12/19/2020 I10 Essential (primary) hypertension Pleskach, Nadiya, [employer] 12/19/2020 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 Pleskach, Nadiya , [employer] 12/19/2020 C18.9 Malignant neoplasm of colon, uns pecified Pleskach, Nadiya, [employer] 12/19/2020 I48.91 Unspecified atrial fibrillation Pleskach, Nadiya, [employer] 12/02/2020 D64.9 Anemia, unspecified Pleskach, Mo lly, [employer] 12/02/2020 E11.69 Type 2 diabetes mellitus with ot her specified complication Pleskach, Nadiya, [employer] 12/02/2020 E78.2 Mixed hyperlipidemia Pleskach, M jarocho, [employer] 12/02/2020 I10 Essential (primary) hypertension Pleskach, Nadiya, [employer] 12/02/2020 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 Pleskach, Nadiya , [employer] 12/02/2020 C18.9 Malignant neoplasm of colon, uns pecified Pleskach, Nadiya, [employer] 12/02/2020 I48.91 Unspecified atrial fibrillation Nadiya Bryan [...]
--- OUTSIDE RECORDS SUMMARY | 2021-05-23 17:02 | CCD ---
Author Author [facility] Organization [facility] Address Unknown Phone Unavailable Care Team Providers Care Section Leader Screen Printing Name Role Phone Bethany Cardenas MD Unavailable Unavailable Bethany Cardenas MD Unavailable Unavailable Bethany Cardenas MD Unavailable Unavailable Bethany Cardenas MD Unavailable Unavailable Bethany Cardenas MD Unavailable Unavailable Bethany Cardenas MD Unavailable Unavailable Bethany Cardenas MD Unavailable Unavailable Bethany Cardenas MD Unavailable Unavailable Bethany Cardenas MD Unavailable Unavailable Bethany Cardenas MD Unavailable Unavailable Bethany Cardenas MD Unavailable Unavailable Bethany Cardenas MD Unavailable Unavailable Bethany Cardenas MD Unavailable Unavailable Bethany Cardenas MD Unavailable Unavailable Bethany Cardenas MD Unavailable Unavailable Bethany Cardenas MD Unavailable Unavailable Bethany Cardenas MD Unavailable Unavailable Bethany Cardenas MD Unavailable Unavailable Bethany Cardenas MD Unavailable Unavailable Bethany Cardenas MD Unavailable Unavailable Bethany Cardenas MD Unavailable Unavailable Bethany Cardenas MD Unavailable Unavailable Bethany Cardenas MD Unavailable Unavailable Bethany Cardenas MD Unavailable Unavailable Bethany Cardenas MD Unavailable Unavailable Bethany Cardenas MD Unavailable Unavailable Bethany Cardenas MD Unavailable Unavailable Bethany Cardenas MD Unavailable Unavailable Bethany Cardenas MD Unavailable Unavailable Bethany Cardenas MD Unavailable Unavailable Bethany Cardenas MD Unavailable Unavailable Bethany Cardenas MD Unavailable Unavailable Bethany Cardenas MD Unavailable Unavailable Bethany Cardenas MD Unavailable Unavailable Bethany Cardenas MD Unavailable Unavailable Pleskach, Nadiya ABRASIVES SALES REPRESENTATIVE Unavailable Unavailable Pleskach, Nadiya ABRASIVES SALES REPRESENTATIVE Unavailable Unavailable Pleskach, Nadiya ABRASIVES SALES REPRESENTATIVE Unavailable Unavailable Pleskach, Nadiya ABRASIVES SALES REPRESENTATIVE Unavailable Unavailable Pleskach, Nadiya ABRASIVES SALES REPRESENTATIVE Unavailable Unavailable Pleskach, Nadiya ABRASIVES SALES REPRESENTATIVE Unavailable Unavailable Pleskach, Nadiya ABRASIVES SALES REPRESENTATIVE Unavailable Unavailable Pleskach, Nadiya ABRASIVES SALES REPRESENTATIVE Unavailable Unavailable Pleskach, Nadiya ABRASIVES SALES REPRESENTATIVE Unavailable Unavailable Pleskach, Nadiya ABRASIVES SALES REPRESENTATIVE Unavailable Unavailable Pleskach, Nadiya ABRASIVES SALES REPRESENTATIVE Unavailable Unavailable Pleskach, Nadiya ABRASIVES SALES REPRESENTATIVE Unavailable Unavailable Pleskach, Nadiya ABRASIVES SALES REPRESENTATIVE Unavailable Unavailable Pleskach, Nadiya ABRASIVES SALES REPRESENTATIVE Unavailable Unavailable Pleskach, Nadiya ABRASIVES SALES REPRESENTATIVE Unavailable Unavailable Pleskach, Nadiya ABRASIVES SALES REPRESENTATIVE Unavailable Unavailable Pleskach, Nadiya ABRASIVES SALES REPRESENTATIVE Unavailable Unavailable Pleskach, Nadiya ABRASIVES SALES REPRESENTATIVE Unavailable Unavailable Pleskach, Nadiya ABRASIVES SALES REPRESENTATIVE Unavailable Unavailable Pleskach, Nadiya ABRASIVES SALES REPRESENTATIVE Unavailable Unavailable Pleskach, Nadiya ABRASIVES SALES REPRESENTATIVE Unavailable Unavailable Pleskach, Nadiya ABRASIVES SALES REPRESENTATIVE Unavailable Unavailable Pleskach, Nadiya ABRASIVES SALES REPRESENTATIVE Unavailable Unavailable Pleskach, Nadiya ABRASIVES SALES REPRESENTATIVE Unavailable Unavailable Pleskach, Nadiya ABRASIVES SALES REPRESENTATIVE Unavailable Unavailable Pleskach, Nadiya ABRASIVES SALES REPRESENTATIVE Unavailable Unavailable Pleskach, Nadiya ABRASIVES SALES REPRESENTATIVE Unavailable Unavailable Pleskach, Nadiya ABRASIVES SALES REPRESENTATIVE Unavailable Unavailable Pleskach, Nadiya ABRASIVES SALES REPRESENTATIVE Unavailable Unavailable Pleskach, Nadiya ABRASIVES SALES REPRESENTATIVE Unavailable Unavailable Pleskach, Nadiya ABRASIVES SALES REPRESENTATIVE Unavailable Unavailable Pleskach, Nadiya ABRASIVES SALES REPRESENTATIVE Unavailable Unavailable Pleskach, Nadiya ABRASIVES SALES REPRESENTATIVE Unavailable Unavailable Pleskach, Nadiya ABRASIVES SALES REPRESENTATIVE Unavailable Unavailable Pleskach, Nadiya ABRASIVES SALES REPRESENTATIVE Unavailable Unavailable Pleskach, Nadiya ABRASIVES SALES REPRESENTATIVE Unavailable Unavailable Pleskach, Nadiya ABRASIVES SALES REPRESENTATIVE Unavailable Unavailable Pleskach, Nadiya ABRASIVES SALES REPRESENTATIVE Unavailable Unavailable Pleskach, Nadiya ABRASIVES SALES REPRESENTATIVE Unavailable Unavailable Pleskach, Nadiya ABRASIVES SALES REPRESENTATIVE Unavailable Unavailable Pleskach, Nadiya ABRASIVES SALES REPRESENTATIVE Unavailable Unavailable Pleskach, Nadiya ABRASIVES SALES REPRESENTATIVE Unavailable Unavailable Pleskach, Nadiya ABRASIVES SALES REPRESENTATIVE Unavailable Unavailable Pleskach, Nadiya ABRASIVES SALES REPRESENTATIVE Unavailable Unavailable Franco, Sosa Welsh MD Unavailable Unavailable Franco, Sosa Welsh MD Unavailable Unavailable Franco, Sosa Welsh MD Unavailable Unavailable Franco, Sosa Welsh MD Unavailable Unavailable Franco, Sosa Welsh MD Unavailable Unavailable Franco, Sosa Welsh MD Unavailable Unavailable Franco, Sosa Welsh MD Unavailable Unavailable Franco, Sosa Welsh MD Unavailable Unavailable Franco, Sosa Welsh MD Unavailable Unavailable Franco, Sosa Welsh MD Unavailable Unavailable Franco, Sosa Welsh MD Unavailable Unavailable Franco, Sosa Welsh MD Unavailable Unavailable Franco, Sosa Welsh MD Unavailable Unavailable Franco, Sosa Welsh MD Unavailable Unavailable Franco, Sosa Welsh MD Unavailable Unavailable Franco, Sosa Welsh MD Unavailable Unavailable Franco, Sosa Welsh MD Unavailable Unavailable Franco, Sosa Welsh MD Unavailable Unavailable Franco, Sosa Welsh MD Unavailable Unavailable Franco, Sosa Welsh MD Unavailable Unavailable Franco, Sosa Welsh MD Unavailable Unavailable Franco, Sosa Welsh MD Unavailable Unavailable Franco, Sosa Welsh MD Unavailable Unavailable Franco, Sosa Welsh MD Unavailable Unavailable Franco, Sosa Welsh MD Unavailable Unavailable Franco, Sosa Welsh MD Unavailable Unavailable Franco, Sosa Welsh MD Unavailable Unavailable Franco, Sosa Welsh MD Unavailable Unavailable Franco, Sosa Welsh MD Unavailable Unavailable Franco, Sosa Welsh MD Unavailable Unavailable Franco, Sosa Welsh MD Unavailable Unavailable Franco, Sosa Welsh MD Unavailable Unavailable Franco, Sosa Welsh MD Unavailable Unavailable Franco, Sosa Welsh MD Unavailable Unavailable Franco, Sosa Welsh MD Unavailable Unavailable Franco, Sosa Welsh MD Unavailable Unavailable Franco, Sosa Welsh MD Unavailable Unavailable Franco, Sosa Welsh MD Unavailable Unavailable Franco, Sosa Welsh MD Unavailable Unavailable Franco, Sosa Welsh MD Unavailable Unavailable Franco, Sosa Welsh MD Unavailable Unavailable Franco, Sosa Welsh MD Unavailable Unavailable Franco, Sosa Welsh MD Unavailable Unavailable Franco, Sosa Welsh MD Unavailable Unavailable Franco, Sosa Welsh MD Unavailable Unavailable Franco, Sosa Welsh MD Unavailable Unavailable Franco, Sosa Welsh MD Unavailable Unavailable Franco, Sosa Welsh MD Unavailable Unavailable Franco, Sosa Welsh MD Unavailable Unavailable Franco, Sosa Welsh MD Unavailable Unavailable Franco, Sosa Welsh MD Unavailable Unavailable Franco, Sosa Welsh MD Unavailable Unavailable Franco, Sosa Welsh MD Unavailable Unavailable Franco, Sosa Welsh MD Unavailable Unavailable Franco, Sosa Welsh MD Unavailable Unavailable Franco, Sosa Welsh MD Unavailable Unavailable Franco, Sosa Welsh MD Unavailable Unavailable Franco, Sosa Wlesh MD Unavailable Unavailable Franco, Sosa Welsh MD Unavailable Unavailable Franco, Sosa Welsh MD Unavailable Unavailable Franco, Sosa Welsh MD Unavailable Unavailable Franco, Sosa Welsh MD Unavailable Unavailable Franco, Sosa Welsh MD Unavailable Unavailable Franco, Sosa Welsh MD Unavailable Unavailable Franco, Sosa Welsh MD Unavailable Unavailable Franco, Sosa Welsh MD Unavailable Unavailable Franco, Sosa Welsh MD Unavailable Unavailable Franco, Sosa Welsh MD Unavailable Unavailable Franco, A Anitha CLAY Unavailable Unavailable Franco, Sosa Welsh MD Unavailable Unavailable Franco, A Anitha CLAY Unavailable Unavailable Franco, Sosa Welsh MD Unavailable Unavailable Franco, Sosa Welsh MD Unavailable Unavailable Franco, Sosa Welsh MD Unavailable Unavailable Franco, Sosa Welsh MD Unavailable Unavailable Franco, Sosa Welsh MD Unavailable Unavailable Franco, Sosa Welsh MD Unavailable Unavailable Franco, Sosa Welsh MD Unavailable Unavailable Franco, Sosa Welsh MD Unavailable Unavailable Franco, Sosa Welsh MD Unavailable Unavailable Franco, Sosa Welsh MD Unavailable Unavailable Franco, Sosa Welsh MD Unavailable Unavailable Niels Decker MD Unavailable Unavailable Niels Decker MD Unavailable Unavailable Niels Decker MD Unavailable Unavailable Niels Decker MD Unavailable Unavailable Niels Decker MD Unavailable Unavailable Niels Decker MD Unavailable Unavailable Niels Decker MD Unavailable Unavailable Niels Decker MD Unavailable Unavailable Niels Decker MD Unavailable Unavailable Niels Decker MD Unavailable Unavailable Niels Decker MD Unavailable Unavailable SleNiels de leon MD Unavailable Unavailable SlemichellekaJonatanjtech Unavailable Unavailable SlemichellekaJonatanjtech Unavailable Unavailable SlemichellekaJonatanjtech Unavailable Unavailable Maria EugeniakaJonatanjtech Unavailable Unavailable Maria EugeniakaJonatanjtech Unavailable Unavailable SlemichellekaJonatanjcharles CLAY Unavailable Unavailable SlemichellekaJonatanjcharles CLAY Unavailable Unavailable SlezkaJonatanjtech Unavailable Unavailable SlezkaJonatanjtech Unavailable Unavailable SlemichellekaJonatanjtech Unavailable Unavailable SlemichellekaJonatanjcharles CLAY Unavailable Unavailable SlemichellekaJonatanjtech Unavailable Unavailable SlezkaJonatanjtech Unavailable Unavailable Slezka, Vojtech MD Unavailable Unavailable SleRayo de leontech Unavailable Unavailable SlemichellekaJonatanjtech Unavailable Unavailable SleRayo de leontech Unavailable Unavailable SleRayo de leontech Unavailable Unavailable SleNiels de leon MD Unavailable Unavailable SlemichellekaJonatanjtech Unavailable Unavailable SlemichellekaJonatanjtech Unavailable Unavailable SlemichellekaJonatanjtech Unavailable Unavailable SleRayo de leontech Unavailable Unavailable SleJonatan de leonjtech Unavailable Unavailable SleNiels de leon MD Unavailable Unavailable SlemichellekaJonatanjtech Unavailable Unavailable SleJonatan de leonjtech Unavailable Unavailable SlemichellekaJonatanjtech Unavailable Unavailable SleRayo de leontech Unavailable Unavailable SleRayo de leontech Unavailable Unavailable SleNiels de leon MD Unavailable Unavailable SleRayo de leontech Unavailable Unavailable SleJonatan de leonjtech Unavailable Unavailable SleJonatan de leonjtech Unavailable Unavailable SleiNels de leon MD Unavailable Unavailable Niels Decker MD Unavailable Unavailable SleNiels de leon MD Unavailable Unavailable SleNiels de leon MD Unavailable Unavailable SleNiels de leon MD Unavailable Unavailable SleJonatan de leonjtech Unavailable Unavailable SleNiels de leon MD Unavailable Unavailable Niels Decker MD Unavailable Unavailable SleNiels de leon MD Unavailable Unavailable SleNiels de leon MD Unavailable Unavailable SleNiels de leon MD Unavailable Unavailable SleJonatan de leonjtech Unavailable Unavailable SleNiels del eon MD Unavailable Unavailable Mark Torres PA Unavailable Unavailable Mark Torres PA Unavailable Unavailable Mark Torres PA Unavailable Unavailable Mark Torres PA Unavailable Unavailable Mark Torres PA Unavailable Unavailable Mark Torres PA Unavailable Unavailable Mark Torres PA Unavailable Unavailable Mark Torres PA Unavailable Unavailable Mark Torres PA Unavailable Unavailable TorresMark castrejon PA Unavailable Unavailable TorresMark castrejon PA Unavailable Unavailable TorresMark castrejon PA Unavailable Unavailable TorresMark castrejon PA Unavailable Unavailable Mark Torres PA Unavailable Unavailable Mark Torres PA Unavailable Unavailable Mark Torres PA Unavailable Unavailable TorresMark castrejon PA Unavailable Unavailable Torres, L Samina PA [...] Unavailable Torres, L Samina PA Unavailable Unavailable [place], V GEORGINA PA-C Unavailable Unavailable Venice, V GEORGINA PA-C Unavailable Unavailable Venice, V GEORGINA PA-C Unavailable Unavailable Venice, V GEORGINA PA-C Unavailable Unavailable Venice, V GEORGINA PA-C Unavailable Unavailable Venice, V GEORGINA PA-C Unavailable Unavailable Dimas, V GEORGINA PA-C Unavailable Unavailable Dimas, V GEORGINA PA-C Unavailable Unavailable Venice, V GEORGINA PA-C Unavailable Unavailable [place], V GEORGINA PA-C Unavailable Unavailable [place], V GEORGINA PA-C Unavailable Unavailable Venice, V GEORGINA PA-C Unavailable Unavailable Venice, V GEORGINA PA-C Unavailable Unavailable Venice, V GEORGINA PA-C Unavailable Unavailable Srinivas PERALTA MD Unavailable Unavailable Srinivas PERALTA MD Unavailable Unavailable Srinivas PERALTA MD Unavailable Unavailable Srinivas PERALTA MD Unavailable Unavailable Srinivas PERALTA MD Unavailable Unavailable Srinivas PERALTA MD Unavailable Unavailable Srinivas PERALTA MD Unavailable Unavailable Srinivas PERALTA MD Unavailable Unavailable Srinivas PERALTA MD Unavailable Unavailable Srinivas PERALTA MD Unavailable Unavailable Srinivas PERALTA MD Unavailable Unavailable Srinivas PERALTA MD Unavailable Unavailable Srinivas PERALTA MD Unavailable Unavailable Srinivas PERALTA MD Unavailable Unavailable CHANDRALA, K RADHA CLAY Unavailable Unavailable CHANDRALA, K RADHA MD Unavailable Unavailable CHANDRALA, K RADHA MD Unavailable Unavailable CHANDRALA, K RADHA MD Unavailable Unavailable CHANDRALA, K RADHA MD Unavailable Unavailable CHANDRALA, K RADHA MD Unavailable Unavailable CHANDRALA, K RADHA MD Unavailable Unavailable CHANDRALA, K RADHA MD Unavailable Unavailable CHANDRALA, K RADHA MD Unavailable Unavailable CHANDRALA, K RADHA MD Unavailable Unavailable CHANDRALA, K RADHA MD Unavailable Unavailable CHANDRALA, K RADHA MD Unavailable Unavailable CHANDRALA, K RADHA MD Unavailable Unavailable CHANDRALA, K RADHA MD Unavailable Unavailable CHANDRALA, K RADHA MD Unavailable Unavailable CHANDRALA, K RADHA MD Unavailable Unavailable CHANDRALA, K RADHA MD Unavailable Unavailable CHANDRALA, K RADHA MD Unavailable Unavailable CHANDRALA, K RADHA MD Unavailable Unavailable Re-disclosure Warning The records that [...] is protected by Article 27-F of the [facility] Public Health law. If you continue you may have access to information: Regarding HIV / AIDS; Provided by facilities licensed or operated by the [facility] Office of Mental Health; or Provided by the [facility] Office for People With Developmental Disabilities. If such information is present, then the following [facility] mandated warning applies: This information has [...] law may result in a fine or long term sentence or both. A general authorization for the release of medical or other information is NOT sufficient authorization for further disc losure. Family History Family Member Name Family Member Gender Family Member Status Date o f Status Description Data Source(s) Unknown Unknown Problem [facility] ([facility], ) Unknown Male Problem [facility] ([facility] Unknown Male Problem [facility] ([facility] Unknown Male Problem [facility] ([facility] Unknown Male Problem [facility] ([facility] Unknown Male Problem [facility] ([facility] Encounters Encounter Providers Location Date Indications Data Source(s ) Outpatient Attender: GEORGINA HENRIQUEZED 10/2020 02:11:07 PM EDT - 04/17/2021 03:39:45 PM EDT [facility] Outpatient Attender: Nadiya Bryan [facility] Main Office 03/28/2021 1 1:45:00 AM EDT [facility] ([facility] Outpatient Attender: Nadiya Bryan [facility] Main Office 03/23/2021 0 3:45:00 PM EDT [facility] ([facility] Outpatient Attender: Niels HENRIQUEZED 02/13 12:00:00 AM EDT - 03/06/2021 10:49:24 AM EDT [facility] Outpatient Attender: RADHA Rae/Cristi/Cory oakes/Macy 03/01/2021 01:00:00 PM EDT [facility] ([facility], ) Outpatient Attender: GEORGINA HENRIQUEZED 12:00:00 AM EDT [facility] Outpatient Attender: GEORGINA DOWNING.ED-[email or web address] 04/2021 02:46:06 PM EDT - 02/21/2021 03:43:47 PM EDT [facility] Outpatient Attender: Dmitry Cardenas MDAdmitter: Dmitry Cardenas MD [email or web address] 02/16/2021 04:14:45 PM EDT [facility] Outpatient Attender: Nadiya PALACIOS Main Office 01/25/2021 0 2:15:00 PM EDT [facility] ([facility] Outpatient Attender: GEORGINA TURNERP.ED-[email or web address] 12:00:00 AM EDT - 01/24/2021 01:58:05 PM EDT [facility] Outpatient Attender: RADHA Rae/Cristi/Cory oakes/Reinisabel 01/04/2021 02:00:00 PM EDT [facility] ([facility], ) Outpatient Attender: Anitha Gamez MD Main Office 12/27/2020 03:45:0 0 PM EDT [facility] ([facility] Outpatient Attender: GEORGINA DOWNING.[email or web address] 02/2021 02:46:03 PM EDT - 12/20/2020 04:12:16 PM EDT [facility] Outpatient Attender: Nadiya PALACIOS Main Office 12/19/2020 0 2:15:00 PM EDT [facility] ([facility] Outpatient Attender: Nadiya PALACIOS Main Office 12/02/2020 1 0:30:00 AM EDT [facility] ([facility] Outpatient Attender: GEORGINA FRANKSED-SJP.ED 12:00:00 AM EDT - 11/29/2020 03:22:02 PM EDT [facility] Outpatient Attender: GEORGINA FRANKSED-SJP.ED 06/2021 12:00:00 AM EDT - 11/23/2020 01:51:35 PM EDT [facility] Outpatient Attender: RADHA Rae/Cristi/Cory oakes/Macy 09/19/2020 10:30:00 AM EST [facility] ([facility] Outpatient Attender: Nadiya Bryan [facility] Main Office 09/09/2020 1 0:45:00 AM EST [facility] ([facility] Outpatient Attender: Samina BELTRANSJTYSON 04/2020 12:00:00 AM EST - 06/23/2020 03:48:06 PM EST [facility] Outpatient Attender: Nadiya Bryan [facility] Main Office 06/16/2020 0 1:00:00 PM EST [facility] ([facility] Outpatient Attender: Nadiya Bryan [facility] Main Office 04/14/2020 1 0:45:00 AM EDT [facility] ([facility] Outpatient Attender: Niels BELTRANSJKelly.ED 03/15 12:00:00 AM EDT - 03/24/2020 02:11:01 PM EDT [facility] Outpatient Attender: Niels BELTRANSJAyleenED 02/12 12:00:00 AM EDT - 02/23/2020 02:22:48 PM EDT [facility] Medications Medication Brand Name Start Date Product Form Dose Route Admi nistrative Instructions Pharmacy Instructions Status Indications Reaction Description Data Source(s) 20 mEq 05/18/2021 12:00:00 AM EDT tablet,ER particles/cry stals 90 TAKE 1 TABLET (20 MEQ) TOTAL) BY MOUTH NEEDED (WHEN TAKING LASIX) TAKE 1 TABLET (20 MEQ) TOTAL) BY MOUTH NEEDED (WHEN TAKING LASIX) SOLD: 05/19/2021 [facility] pantoprazole 40 MG Delayed Release Oral Tablet PANTOPRAZOLE SODIUM 04/19/2021 12:00:00 AM EDT tablet,delayed release (DR/EC) 180 T TOI ONE TABLET BY MOUTH TWICE A DAY TAKE ONE TABLET BY MOUTH TWICE A DAY SOLD: 04/23/2021 [facility] 100 mg/mL 04/01/2021 12:00:00 AM EDT suspension 840 TAKE 10ML BY MOUTH 1/2 HOUR BEFORE MEALS ( THREE TIMES A DAY ) TAKE 10ML BY MOUTH 1/2 HOUR BEFORE MEALS ( THREE TIMES A DAY ) SOLD: 04/01/2021 [facility] 100 mg/mL 04/01/2021 12:00:00 AM EDT suspension 840 TAKE 10ML BY MOUTH 1/2 HOUR BEFORE MEALS ( THREE TIMES A DAY ) TAKE 10ML BY MOUTH 1/2 HOUR BEFORE MEALS ( THREE TIMES A DAY ) SOLD: 04/23/2021 [facility] Sucralfate 100 MG/ML Oral Suspension sucralfate (CARAF ATE) 1 GM/10ML suspension sucralfate (CARAFATE) 1 GM/10ML suspension 04/01/2021 12:00:00 AM EDT 1 g Oral active Take 1 g by mouth 4 (four) times a day [facility] pantoprazole 40 MG Delayed Release Oral Tablet Pantoprazole Sodium 02/21/2021 12:00:00 AM EDT [facility] ([facility], ) pantoprazole 40 MG Delayed Release Oral Tablet PANTOPRAZOLE SODIUM 02/21/2021 12:00:00 AM EDT tablet,delayed release (DR/EC) 60 T TOI ONE TABLET BY MOUTH IN THE MORNING 1/2 HOUR BEFORE BREAKFAST AND TAKE ONE TABLET BY MOUTH BEFORE BEDTIME TAKE ONE TABLET BY MOUTH IN THE MORNING 1/2 HOUR BEFORE BREAKFAST AND TAKE ONE TABLET BY MOUTH BEFORE BEDTIME SOLD: 03/21/2021 [email or web address] pantoprazole 40 MG Delayed Release Oral Tablet PANTOPRAZOLE SODIUM 02/21/2021 12:00:00 AM EDT tablet,delayed release (DR/EC) 60 T TOI ONE TABLET BY MOUTH IN THE MORNING 1/2 HOUR BEFORE BREAKFAST AND TAKE ONE TABLET BY MOUTH BEFORE BEDTIME TAKE ONE TABLET BY MOUTH IN THE MORNING 1/2 HOUR BEFORE BREAKFAST AND TAKE ONE TABLET BY MOUTH BEFORE BEDTIME SOLD: 02/21/2021 [facility] [employer] 01/25/2021 12:00:00 AM EDT active [facility] ([facility] pantoprazole 40 MG Delayed Release Oral Tablet pantoprazole (PROTONIX) 40 MG tablet pantoprazole (PROTONIX) 40 MG tablet 01/21/2021 12:00:00 AM EDT active TAKE ONE TABLET BY MOUTH TWO TIMES A DAY [facility] 100 mg/mL 01/21/2021 12:00:00 AM EDT suspension 500 TAKE 10 ML BY MOUTH BEFORE MEALS AND AT BEDTIME TAKE 10 ML BY MOUTH BEFORE MEALS AND AT BEDTIME SOLD: 01/21/2021 [facility] 10 mg 01/21/2021 12:00:00 AM EDT capsule,delayed release (DR/EC) 60 TAKE TWO CAPSULES BY MOUTH ONCE DAILY TAKE TWO CAPSULES BY MOUTH ONCE DAILY SOLD: 01/21/2021 [facility] 100 mg/mL 01/21/2021 12:00:00 AM EDT suspension 500 TAKE 10 ML BY MOUTH BEFORE MEALS AND AT BEDTIME TAKE 10 ML BY MOUTH BEFORE MEALS AND AT BEDTIME SOLD: 03/07/2021 [facility] pantoprazole 40 MG Delayed Release Oral Tablet [Protonix] Pr otonix 01/21/2021 12:00:00 AM EDT ORAL completed [facility] ([facility] Sucralfate 100 MG/ML Oral Suspension Sucralfate 01/21/2021 12:00:00 A M EDT active [facility] ([facility] pantoprazole 40 MG Delayed Release Oral Tablet PANTOPRAZOLE SODIUM 01/21/2021 12:00:00 AM EDT tablet,delayed release (DR/EC) 60 T TOI ONE TABLET BY MOUTH TWO TIMES A DAY TAKE ONE TABLET BY MOUTH TWO TIMES A DAY SOLD: 01/21/2021 [facility] Omeprazole 20 MG Delayed Release Oral Capsule Omeprazole 01/04/2021 12:00:00 AM EDT completed [facility] ([facility], ) Sucralfate 100 MG/ML Oral Suspension Sucralfate 01/04/2021 12:00:00 A M EDT ORAL active [facility] ([facility], ) 40 mg 12/28/2020 12:00:00 AM EDT capsule,delayed release (DR/EC) 30 TAKE ONE CAPSULE BY MOUTH EVERY MORNING 30 MINUTES BEFORE BREAKFAST TAPER OFF AFTER 6 WEEKS TAKE ONE CAPSULE BY MOUTH EVERY MORNING 30 MINUTES BEFORE BREAKFAST TAPER OFF AFTER 6 WEEKS SOLD: 01/05/2021 [facility] Digoxin 0.125 MG Oral Tablet Digoxin 12/27/2020 12:00:00 AM EDT ORAL completed [facility] ([facility] Furosemide 20 MG Oral Tablet furosemide (LASIX) 20 MG tablet furosemide (LASIX) 20 MG tablet 12/20/2020 12:00:00 AM EDT 20 mg Oral active Bilateral leg edema Take 1 tablet (20 mg total) by mouth christine ly [facility] Bilateral leg edema potassium chloride SA (K-DUR,KLOR-CON) 20 MEQ tablet [id number] 12/20/2020 12:00:00 AM EDT 20 meq Oral active Take 1 tablet (20 mEq total) by mouth as needed (when taking lasix) [facility] 24 HR Diltiazem Hydrochloride 240 MG Ext ended Release Oral Capsule diltiazem (CARDIZEM CD) 240 MG 24 hr capsule diltiazem (CARDIZEM CD) 240 MG 24 hr capsule 12/20/2020 12:00:00 AM EDT 240 mg Oral active Take 1 capsule (240 mg total) by mouth daily [facility] 0.5 mg 12/15/2020 12:00:00 AM EDT tablet 2 TAKE ONE TABLET BY MOUTH TWICE A DAY NEEDED FOR ANXIETY - MAXIMUM DAILY DOSE = 2 - *TAKE 1/2 HOUR PRIOR TO PROCEDURE* TAKE ONE TABLET BY MOUTH TWICE A DAY NEEDED FOR ANXIETY - MAXIMUM DAILY DOSE = 2 - *TAKE 1/2 HOUR PRIOR TO PROCEDURE* SOLD: 12/15/2020 [facility] 50 mg 12/06/2020 12:00:00 AM EDT tablet extended release 24 hr 90 TAKE ONE TABLET BY MOUTH EVERY DAY TAKE ONE TABLET BY MOUTH EVERY DAY SOLD: 12/06/2020 [facility] 50 mg 12/06/2020 12:00:00 AM EDT tablet extended release 24 hr 90 TAKE ONE TABLET BY MOUTH EVERY DAY TAKE ONE TABLET BY MOUTH EVERY DAY SOLD: 02/28/2021 [facility] 24 HR metoprolol succinate 50 MG Extende d Release Oral Tablet metoprolol succinate (TOPROL-XL) 50 MG 24 hr tablet metoprolol succinate (TOPROL-XL) 50 MG 24 hr tablet 12/06/2020 12:00:00 AM EDT 50 mg Oral activ e Take 1 tablet (50 mg total) by mouth daily [facility] Sucralfate 1000 MG Oral Tablet sucralfate (CARAFATE) 1 g tablet sucralfate (CARAFATE) 1 g tablet 12/05/2020 12:00:00 AM EDT 1 g Oral aborted Take 1 g by mouth 2 (two) times a day [facility] 1 gram 12/05/2020 12:00:00 AM EDT tablet 120 TAKE ONE TABLET BY MOUTH BEFORE MEALS AND AT BEDTIME UP TO 4 TIMES A DAY TAKE ONE TABLET BY MOUTH BEFORE MEALS AND AT BEDTIME UP TO 4 TIMES A DAY SOLD: 12/06/2020 [facility] Omeprazole 20 MG Delayed Release Oral Capsule Omeprazole 12/02/2020 12:00:00 AM EDT ORAL completed [facility] Sucralfate 1000 MG Oral Tablet Sucralfate 11/28/2020 12:00:00 AM EDT ORAL completed [facility] POLYETHYLENE GLYCOL 3350 142 MG/ML Oral Solution [Miralax] M iralax 11/28/2020 12:00:00 AM EDT active M [facility] ([facility] 40 mg 11/28/2020 12:00:[address] for susp in packet 30 TAKE ONE PACKET BY MOUTH EVERY DAY TAKE ONE PACKET BY MOUTH EVERY DAY SOLD: 11/28/2020 [facility] 20 mg 11/27/2020 12:00:00 AM EDT tablet 3 TAKE ONE TABLET BY MOUTH EVERY DAY TAKE ONE TABLET BY MOUTH EVERY DAY SOLD: 11/28/2020 [facility] 1 gram 11/26/2020 12:00:00 AM EDT tablet 40 TAKE ONE TABLET BY MOUTH FOUR TIMES A DAY BEFORE MEALS AND AT BEDTIME ON AN EMPTY STOMACH TAKE ONE TABLET BY MOUTH FOUR TIMES A DAY BEFORE MEALS AND AT BEDTIME ON AN EMPTY STOMACH SOLD: 11/27/2020 [facility] 20 mg 11/24/2020 12:00:00 AM EDT tablet 30 TAKE ONE TABLET BY MOUTH EVERY DAY TAKE ONE TABLET BY MOUTH EVERY DAY SOLD: 11/27/2020 [facility] 20 mEq 11/24/2020 12:00:00 AM EDT tablet,ER particles/cry stals 30 TAKE ONE TABLET BY MOUTH EVERY DAY NEEDED WHEN TAKING FUROSEMIDE TAKE ONE TABLET BY MOUTH EVERY DAY NEEDED WHEN TAKING FUROSEMIDE SOLD: 11/27/2020 [facility] potassium chloride SA (K-DUR,KLOR-CON) 20 MEQ tablet 09361-1 99-01 11/23/2020 12:00:00 AM EDT 20 meq Oral aborted Take 1 tablet (20 mEq total) by mouth as needed (when taking lasix) [facility] Furosemide 20 MG Oral Tablet furosemide (LASIX) 20 MG tablet furosemide (LASIX) 20 MG tablet 11/23/2020 12:00:00 AM EDT 20 mg Oral aborted Bilateral leg edema Take 1 tablet (20 mg total) by mouth christine ly [facility] Bilateral leg edema Omeprazole 40 MG Delayed Release Oral Capsule Omeprazole 10/24/2020 12:00:00 AM EDT completed [facility] ([facility]) 40 mg 10/24/2020 12:00:00 AM EDT capsule,delayed release (DR/EC) 30 TAKE ONE CAPSULE BY MOUTH EVERY MORNING 30 MINUTES BEFORE BREAKFAST *TAPER AFTER 6 WEEKS TAKE ONE CAPSULE BY MOUTH EVERY MORNING 30 MINUTES BEFORE BREAKFAST *TAPER AFTER 6 WEEKS SOLD: 10/26/2020 [facility] 17.5-3.13-1.6 gram 09/30/2020 12:00:00 AM EDT recon soln 354 USE DIRECTED FOR BOWL PREP USE DIRECTED FOR BOWL PREP SOLD: 10/07/2020 [facility] Clenpiq Clenpiq 09/30/2020 12:00:00 AM EDT complet ed [facility] ([facility], ) Suprep Bowel Prep Kit Suprep Bowel Prep Kit 09/30/2020 12:00:00 AM EDT completed [facility] ([facility], ) Bisacodyl 5 MG Delayed Release Oral Tablet [Dulcolax] Dulcol ax 09/30/2020 12:00:00 AM EDT completed [facility] ([facility], ) POLYETHYLENE GLYCOL 3350 105 MG/ML / Pot assium Chloride 0.57469 MEQ/ML / Sodium Bicarbonate 0.017 MEQ/ML / Sodium Chloride 0.0479 MEQ/ML Oral Solution [GaviLyte-N] Gavilyte-N With Flavor Pack 09/30/2020 12:00:00 AM EDT completed [facility] ([facility], ) 5 mg 09/30/2020 12:00:00 AM EDT tablet,delayed release (DR/EC) 4 TAKE FOUR TABLETS BY MOUTH FOR BOWL PREP TAKE FOUR TABLETS BY MOUTH FOR BOWL PREP SOLD: 10/04/2020 [facility] Docusate Sodium 100 MG Oral Capsule [Colace] Colace 12:00:00 AM EST ORAL active [facility] ( [facility] Alendronic acid 70 MG Oral Tablet Alendronate Sodium 09/07/2020 12:00:00 AM EST ORAL active [facility] ( [facility] Digoxin 0.125 MG Oral Tablet digoxin (LANOXIN) 125 MCG tablet digoxin (LANOXIN) 125 MCG tablet 07/29/2020 12:00:00 AM EST abo rted TAKE 1 TABLET DAILY [facility] 24 HR Diltiazem Hydrochloride 240 MG Ext ended Release Oral Capsule diltiazem (CARDIZEM CD) 240 MG 24 hr capsule diltiazem (CARDIZEM CD) 240 MG 24 hr capsule 07/05/2020 12:00:00 AM EST 240 mg Oral aborted Take 1 capsule (240 mg total) by mouth daily [facility] apixaban 2.5 MG Oral Tablet apixaban (ELIQUIS) 2.5 MG TABS tablet apixaban (ELIQUIS) 2.5 MG TABS tablet 07/05/2020 12:00:00 AM EST 2.5 mg Oral aborted Take 1 tablet (2.5 mg total) by mouth 2 (two) times a day [facility] Furosemide 20 MG Oral Tablet furosemide (LASIX) 20 MG tablet furosemide (LASIX) 20 MG tablet 07/01/2020 12:00:00 AM EST 20 mg Oral aborted Bilateral leg edema Take 1 tablet (20 mg total) by mouth bernardino ry other day [facility] Bilateral leg edema glimepiride 1 MG Oral Tablet GLIMEPIRIDE 06/26/2020 12:00:00 AM EST ta blet 45 TAKE ONE-HALF TABLET BY MOUTH EVERY MORNING FOR DIABETES TAKE ONE-HALF TABLET BY MOUTH EVERY MORNING FOR DIABETES SOLD: 06/27/2020 [facility] Claridge Remover Wipes 06/16/2020 12:00:00 AM EST active [facility] ([facility] [employer] Lub[employer]ating Deodorant 06/16/2020 12:00:00 AM EST active [facility] ([facility] Lancets (ONETOUCH DELICA PLUS [id number]) [facility] [place] [id number] 06/05/2020 12:00:00 AM EST aborted [facility] Efren [employer] Ceraing 05/05/2020 12:00:00 AM EDT active [facility] ([facility] ONETOUCH ULTRA test strip [id number] 04/30/2020 12:00:00 AM EDT aborted [facility] Efren 2 Piece Ostomy Skin Barrier 04/14/2020 12:00:00 AM EDT active [facility] ([facility] [place] 2 Piece Drainable Ostomy Pouch 04/14/2020 12:00:00 AM EDT active [facility] ([facility] BLOOD SUGAR DIAGNOSTIC 04/05/2020 12:00:00 AM EDT strip 100 TEST TWO TIMES A DAY TEST TWO TIMES A DAY SOLD: 04/05/2020 [facility] 33 gauge 04/04/2020 12:00:00 AM EDT misc 50 USE ONCE DAILY USE ONCE DAILY SOLD: 04/04/2020 [facility] Furosemide 20 MG Oral Tablet furosemide (LASIX) 20 MG tablet furosemide (LASIX) 20 MG tablet 03/24/2020 12:00:00 AM EDT 20 mg Oral activ e Take 1 tablet (20 mg total) by mouth daily [facility] potassium chloride SA (K-DUR,KLOR-CON) 20 MEQ tablet [id number] 99-01 03/24/2020 12:00:00 AM EDT 20 meq Oral active Take 1 tablet (20 mEq total) by mouth daily [facility] 24 HR Diltiazem Hydrochloride 240 MG Ext ended Release Oral Capsule diltiazem (CARDIZEM CD) 240 MG 24 hr capsule diltiazem (CARDIZEM CD) 240 MG 24 hr capsule 03/07/2020 12:00:00 AM EDT 240 mg Oral active Take 1 capsule (240 mg total) by mouth daily [facility] 24 HR metoprolol succinate 50 MG Extende d Release Oral Tablet metoprolol succinate (TOPROL-XL) 50 MG 24 hr tablet metoprolol succinate (TOPROL-XL) 50 MG 24 hr tablet 03/07/2020 12:00:00 AM EDT 50 mg Oral activ e Take 1 tablet (50 mg total) by mouth daily [facility] Digoxin 0.125 MG Oral Tablet digoxin (LANOXIN) 125 MCG tablet digoxin (LANOXIN) 125 MCG tablet 02/23/2020 12:00:00 AM EDT 125 ug Oral act pamela Take 1 tablet (125 mcg total) by mouth daily [facility] apixaban 2.5 MG Oral Tablet apixaban (ELIQUIS) 2.5 MG TABS tablet apixaban (ELIQUIS) 2.5 MG TABS tablet 02/23/2020 12:00:00 AM EDT 2.5 mg Oral active Take 1 tablet (2.5 mg total) by mouth 2 (two) times a day [facility] Metformin hydrochloride 500 MG Oral Tablet metFORMIN ( GLUCOPHAGE) 500 MG tablet metFORMIN (GLUCOPHAGE) 500 MG tablet 500 mg Oral a borted Take 500 mg by mouth once daily [facility] glimepiride 1 MG Oral Tablet glimepiride (AMARYL) 1 MG tablet glimepiride (AMARYL) 1 MG tablet 0.5 mg Oral aborted Take 0.5 mg by mouth every morning before breakfast [facility] Ketotifen 0.25 MG/ML Ophthalmic Solution ketotifen (ZADITOR) 0.025 % ophthalmic solution ketotifen (ZADITOR) 0.025 % ophthalmic solution 1 [drp] aborted 1 drop 2 (two) times a day [facility] pantoprazole 40 MG Delayed Release Oral Tablet pantoprazole (PROTONIX) 40 MG tablet pantoprazole (PROTONIX) 40 MG tablet 40 mg Oral aborted Take 40 mg by mouth daily [facility] potassium chloride SA (K-DUR,KLOR-CON) 20 MEQ tablet 77100-493-41 20 meq Oral aborted Take 20 mEq by mouth as needed (when taking lasix) [facility] Sucralfate 100 MG/ML Oral Suspension sucralfate (CARAF ATE) 1 GM/10ML suspension sucralfate (CARAFATE) 1 GM/10ML suspension 1 g Oral aborted Take 1 g by mouth 4 (four) times a day [facility] Insurance Providers Payer name Policy type / Coverage type Policy ID Covered libertarian ID Covered libertarian's relationship to payne Policy [place] Plan Information MEDICARE [id number] xxxxxxxxxxx [id number] MEDICARE [id number] [place] [id number] [facility] [id number] [facility] [id number] [facility] [id number] xxxxxxxxx [id number] INSURANCE COVID-19 COVID Merary C OVID INSURANCE COVID-19 COVID Merary C OVID Medicare [facility] Medicare Primary [id number] Self [id number] [facility] Part B [id number] Self [id number] [place] Primary [id number] Self [id number] UMR O UNAVAILABLE [id number] S UNAVAILA BLE MEDICARE C [id number] S [id number] D Umr Medigap Part B [id number] 99.0 Self [id number] Medicare [place] Medicare Primary [id number] Self [id number] ANSI-Medicare Part B [id number] ANSI-Not a Secondary Insurance [id number] [employer] Part B [id number] Self [id number] Medicare [place] Medicare Primary [id number] Self [id number] [employer] Part B [id number] 99.0 Self [id number] Medicare [facility] Medicare Primary [id number] Self [id number] [employer] Part B [id number] 103.0 Self [id number] [place] Medicare Primary [id number] Self [id number] [employer] Part B [id number] 99.0 Self [id number] [place] Primary [id number] Self [id number] [employer] Med[employer] Part B [id number] Self Medicare [facility] Medicare Primary [id number] Self [employer] PPO O [id number] S [id number] R [facility] [id number] SP [id number] [employer] Medigap Part B [id number] Self MEDICARE [id number] SP [id number] UMR O [id number] S [id number] MEDICARE C [id number] S [id number] V[address] [facility] [id number] SP [id number] UMR O [id number] S [id number] Problems, Conditions, and Diagnoses Code Display Name Description Problem Type Effective Dates Data Source(s) I48.19 Other persistent atrial fibrillation Oth er persistent atrial fibrillation Diagnosis 04/17/2021 02:11:07 PM EDT [facility] K92.2 Gastrointestinal hemorrhage, unspecified Gastrointestinal hemorrhage, unspecified Diagnosis 03/06/2021 09:50:53 AM EDT [facility] I50.33 Acute on chronic diastolic (congestive) heart failure Acute on chronic diastolic (congestive) Diagnosis 03/06/2021 09:50:53 AM EDT [facility] 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) Iron deficiency anemia secondary to bloo Diagnosis 03/06/2021 09:50:53 AM EDT [facility] I34.1 Nonrheumatic mitral (valve) prolapse Nonrheumati c mitral (valve) prolapse Diagnosis 02/21/2021 02:46:06 PM EDT [facility] R60.0 Localized edema Localized edema Diagnosis 12/20/2020 02:4 6:03 PM EDT [facility] R09.89 Other specified symptoms and signs involving the circulatory and respiratory systems Other specified symptoms and signs invol Diagnosis 11/23/2020 12:44:59 PM EDT [facility] R06.00 Dyspnea, unspecified Dyspnea, unspecified Diagnosis 11/23/2020 12:44:59 PM EDT [facility] I48.0 Paroxysmal atrial fibrillation Paroxysmal atrial fibri llation Diagnosis 11/23/2020 12:44:59 PM EDT [facility] I48.91 Atrial fibrillation Atrial fibrillation Problem 0 12/19/2020 12:00:00 AM EDT [facility] ([facility] C18.9 Malignant tumor of colon Malignant tumor of colon Prob blair 12/19/2020 12:00:00 AM EDT [facility] ([facility] 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 Ileostomy present Problem 12/19/2020 12:00:00 AM EDT [facility] ([facility] I50.33 Acute on chronic diastolic congestive he art failure Acute on chronic diastolic congestive heart failure [id number] 12/04/2020 12:00:00 AM ED T [facility] K92.2 Gastrointestinal bleed Gastrointestinal bleed [id number] 12/04/2020 12:00:00 AM EDT [facility] R06.00 SAUCEDO (dyspnea on exertion) SAUCEDO (dyspnea on exertion) 64 [id number] 11/23/2020 12:00:00 AM EDT [facility] R09.89 Labile blood pressure Labile blood pressure [id number] 06/23/2020 12:00:00 AM [facility] E11.9 Type 2 diabetes mellitus wit hout complication, without long-term current use of insulin Type 2 diabetes mellitus without complic ation, without long-term current use of insulin [id number] 06/23/2020 12:00:[address] [facility] R60.0 Bilateral leg edema Bilateral leg edema [id number] 0 03/24/2020 12:00:00 AM EDT [facility] Surgeries/Procedures Procedure Description Date Indications Data Source(s) ECG ROUTINE ECG W/LEAST 12 LDS W/I&R <td>POCT AMB EKG</td><td>Routine</td><td>04/17/2021 3:48 PM EDT</td><td> Persistent atrial fibrillation</td><td> </td> 04/17/2021 03:48:00 PM EDT Persistent atrial fibrillation [facility] Persistent atrial fibrillation Endoscopy Upper GI Control Hemorrhage 04/14/2021 12:00 :00 AM EDT [facility] ([facility], ) Endoscopy Upper GI W/ Ablation Of Tumors/Polyps/Lesions 04/14/2021 12:00:00 AM EDT [facility] [place] W/I 7 Days Of DC, Comm W/I 2 Dys 03/28/2021 12:00:00 AM EDT [facility] ([facility] Diabetic Foot Exam 03/23/2021 12:00:00 AM EDT [facility] Dr. Hood OFFICE OUTPATIENT VISIT 25 MINUTES 03/23/2021 12:00:00 AM EDT [facility] ([facility] OFFICE OUTPATIENT VISIT 15 MINUTES 03/01/2021 12:00:00 AM EDT [facility] ([facility] ) ECG ROUTINE ECG W/LEAST 12 LDS W/I&R <td>POCT AMB EKG</td><td>Routine</td><td>02/28/2021 4:41 PM EDT</td><td> Persistent atrial fibrillation</td><td> </td> 02/28/2021 04:41:00 PM EDT Persistent atrial fibrillation [facility] Persistent atrial fibrillation BLOOD COUNT COMPLETE AUTO&AUTO DIFRNTL WBC COUNT <td>C BC AND DIFFERENTIAL</td><td>Routine</td><td>02/27/2021</td><td></td><td> </td> 02/27/2021 12:00:00 AM EDT [facility] IRON <td>IRON</td><td>Routine</td ><td>02/27/2021</td><td></td><td> </td> 02/27/2021 12:00:00 AM EDT [facility] BASIC METABOLIC PANEL CALCIUM TOTAL <td>BASIC METABOLI C PANEL</td><td>Routine</td><td>02/27/2021</td><td></td><td> </td> 02/27/2021 12:00:00 AM EDT [facility] [place] W/I 7 Days Of DC, Comm W/I 2 Dys 01/25/2021 12:00:00 AM EDT [facility] ([facility] BLOOD COUNT COMPLETE AUTO&AUTO DIFRNTL WBC COUNT <td>C BC AND DIFFERENTIAL</td><td>Routine</td><td>01/21/2021</td><td></td><td> </td> 01/21/2021 12:00:00 AM EDT [facility] HEPATIC FUNCTION PANEL <td>HEPATIC FUNCTION PANEL</td><td>Routine</td><td>01/21/2021</td><td></td><td> </td> 01/21/2021 12:00:00 AM EDT [facility] BASIC METABOLIC PANEL CALCIUM TOTAL <td>BASIC METABOLI C PANEL</td><td>Routine</td><td>01/21/2021</td><td></td><td> </td> 01/21/2021 12:00:00 AM EDT [facility] Endoscopy Upper GI Control Hemorrhage 01/20/2021 12:00 :00 AM EDT [facility] ([facility] ) Endoscopy Upper GI W/ Ablation Of Tumors/Polyps/Lesions 01/20/2021 12:00:00 AM EDT [facility] ([facility] OFFICE OUTPATIENT VISIT 25 MINUTES 01/04/2021 12:00:00 AM EDT [facility] ([facility], ) THYROID STIMULATING HORMONE TSH <td>TSH</td><td>Routine</td><td>01/02/2021</td><td></td><td> </td> 01/02/2021 12:00:00 AM EDT [facility] IRON <td>IRON</td><td>Routine</td ><td>01/02/2021</td><td></td><td> </td> 01/02/2021 12:00:00 AM EDT [facility] BASIC METABOLIC PANEL CALCIUM TOTAL <td>BASIC METABOLI C PANEL</td><td>Routine</td><td>01/02/2021</td><td></td><td> </td> 01/02/2021 12:00:00 AM EDT [facility] OFFICE OUTPATIENT VISIT 25 MINUTES 12/27/2020 12:00:00 AM EDT [facility] ([facility] POCT AMB EKG <td>POCT AMB EKG</td><td>Rou tracy</td><td>12/20/2020 4:33 PM EDT</td><td> Persistent atrial fibrillation</td><td> </td> 12/20/2020 04:33:00 PM EDT Persistent atrial fibrillation [facility] Persistent atrial fibrillation OFFICE OUTPATIENT VISIT 25 MINUTES 12/19/2020 12:00:00 AM EDT [facility] ([facility] BLOOD COUNT COMPLETE AUTO&AUTO DIFRNTL WBC COUNT <td>C BC AND DIFFERENTIAL</td><td>Routine</td><td>12/19/2020</td><td></td><td> </td> 12/19/2020 12:00:00 AM EDT [facility] BASIC METABOLIC PANEL CALCIUM TOTAL <td>BASIC METABOLI C PANEL</td><td>Routine</td><td>12/19/2020</td><td></td><td> </td> 12/19/2020 12:00:00 AM EDT [facility] [place] W/I 7 Days Of DC, Comm W/I 2 Dys 12/02/2020 12:00:00 AM EDT [facility] ([facility] ECG ROUTINE ECG W/LEAST 12 LDS W/I&R <td>POCT AMB EKG</td><td>Routine</td><td>11/29/2020 5:43 PM EDT</td><td> Paroxysmal atrial fibrillation</td><td> </td> 11/29/2020 05:43:00 PM EDT Paroxysmal atrial fibrillation [facility] Paroxysmal atrial fibrillation BLOOD COUNT COMPLETE AUTO&AUTO DIFRNTL WBC COUNT <td>C BC AND DIFFERENTIAL</td><td>Routine</td><td>11/28/2020</td><td></td><td> </td> 11/28/2020 12:00:00 AM EDT [facility] BASIC METABOLIC PANEL CALCIUM TOTAL <td>BASIC METABOLI C PANEL</td><td>Routine</td><td>11/28/2020</td><td></td><td> </td> 11/28/2020 12:00:00 AM EDT [facility] TROPONIN QUANTITATIVE <td>TROPONIN I</td><td>Routine</td><td>11/27/2020</td><td></td><td> </td> 11/27/2020 12:00:00 AM EDT [facility] ECG ROUTINE ECG W/LEAST 12 LDS W/I&R <td>POCT AMB EKG</td><td>Routine</td><td>11/23/2020 5:22 PM EDT</td><td> Paroxysmal atrial fibrillation</td><td> </td> 11/23/2020 05:22:00 PM EDT Paroxysmal atrial fibrillation [facility] Paroxysmal atrial fibrillation Endoscopy Upper GI Biopsy 10/24/2020 12:00:00 AM EDT [facility] ([facility] ) Colonoscopy Thru Stoma W/Biopsy 10/24/2020 12:00:00 AM EDT [facility] ([facility] ) OFFICE OUTPATIENT VISIT 15 MINUTES 09/19/2020 12:00:00 AM EST [facility] ([facility] ) [place] W/I 7 Days Of DC, Comm W/I 2 Dys 09/09/2020 12:00:00 AM EST [facility] ([facility] Results ID Date Data Source [id number] 05/17/2021 09:55:00 AM EDT [facility] ([facility] Name Value Range Interpretation Code Description Data Radhika rce(s) Supporting Document(s) Packed Cells Laboratory test result [facility] ([facility] TRANSFUSED PRODUCT: PACKED CELLS COUNT: 2 ID Date Data Source [id number] 05/17/2021 09:55:00 AM EDT [facility] ([facility] Name Value Range Interpretation Code Description Data Radhika rce(s) Supporting Document(s) White Blood Count 4.6 10 4.0-10.0 [facility] ([facility] Red Blood Count 2.09 10 4.00-5.40 [facility] ([facility] Hemoglobin 6.2 g/dL 12.0-15.5 Below lower panic limits [facility] Hematocrit 20.9 % 36.0-47.0 [facility] Mean Corpuscular Hemoglobin 29.7 pg 27.0-33.0 [facility] Mean Corpuscular Volume 100.0 fl 80.0-96.0 M [facility] ([facility] Mean Corpuscular HGB Conc 29.7 g/dL 32.0-36.5 [facility] Red Cell Distribution Width 17.2 % 11.5-14.5 [facility] Neutrophils % 80.5 % 36.0-66.0 [facility] Platelet Count, Automated 290 10 150-450 [facility] Eos % 1.7 % 0.0-3.0 [facility] Lymph % 5.7 % 24.0-44.0 [facility] Mcleod % 11.3 % 2.0-8.0 [facility] Baso % 0.4 % 0.0-1.0 [facility] Immature Granulocyte % 0.4 % 0-3.0 [facility] Nucleated Red Blood Cell % 0.0 % 0-0 [facility] ([facility] Neutrophils # 3.7 10 1.5-8.5 [facility] Lymph # 0.3 10 1.5-5.0 [facility] Mcleod # 0.5 10 0.0-0.8 [facility] Baso # 0.0 10 0.0-0.2 [facility] Eos # 0.1 10 0.0-0.5 [facility] ID Date Data Source [id number] 05/17/2021 09:55:00 AM EDT [facility] ([facility] Name Value Range Interpretation Code Description Data Radhika rce(s) Supporting Document(s) AB Screen (Indirect Farooq)Vis Laboratory test result [facility] Blood Type Laboratory test result [facility] ID Date Data Source [id number] 05/10/2021 11:04:00 AM EDT [facility] ([facility] Name Value Range Interpretation Code Description Data Radhika rce(s) Supporting Document(s) Red Blood Count 3.30 10 4.00-5.40 [facility] White Blood Count 5.2 10 4.0-10.0 [facility] ([facility] Hemoglobin 9.9 g/dL 12.0-15.5 [facility] Hematocrit 32.2 % 36.0-47.0 [facility] Mean Corpuscular Volume 97.6 fl 80.0-96.0 M [facility] ([facility] Mean Corpuscular Hemoglobin 30.0 pg 27.0-33.0 [facility] ([facility] Mean Corpuscular HGB Conc 30.7 g/dL 32.0-36.5 [facility] ([facility] Red Cell Distribution Width 17.9 % 11.5-14.5 [facility] ([facility] Platelet Count, Automated 302 10 150-450 [facility] ([facility] Neutrophils % 84.3 % 36.0-66.0 [facility] ([facility] Mcleod % 8.7 % 2.0-8.0 [facility] ([facility]itha summers [facility] Lymph % 4.8 % 24.0-44.0 [facility] ([facility] Eos % 1.2 % 0.0-3.0 [facility] ([facility] Baso % 0.4 % 0.0-1.0 [facility] ([facility] Immature Granulocyte % 0.6 % 0-3.0 [facility] ([facility] Nucleated Red Blood Cell % 0.0 % 0-0 [facility] ([facility] Neutrophils # 4.4 10 1.5-8.5 [facility] ([facility] Mcleod # 0.5 10 0.0-0.8 [facility] ([facility] Lymph # 0.3 10 1.5-5.0 [facility] ([facility] Eos # 0.1 10 0.0-0.5 [facility] ([facility] Baso # 0.0 10 0.0-0.2 [facility] ([facility] ID Date Data Source [id number] 05/08/2021 08:43:00 AM EDT [facility] ([facility] Name Value Range Interpretation Code Description Data Radhika rce(s) Supporting Document(s) Occult Blood Laboratory test result Abnormal (applies to non-numeric results) [facility] ([facility] OCCULT BLOOD 1 POSITIVE ID Date Data Source [id number] 05/08/2021 08:43:00 AM EDT [facility] ([facility] Name Value Range Interpretation Code Description Data Radhika rce(s) Supporting Document(s) Packed Cells Laboratory test result [facility] TRANSFUSED PRODUCT: PACKED CELLS COUNT: 1 ID Date Data Source [id number] 05/08/2021 08:43:00 AM EDT [facility] ([facility] Name Value Range Interpretation Code Description Data Radhika rce(s) Supporting Document(s) Blood Type Laboratory test result [facility] AB Screen (Indirect Farooq)Vis Laboratory test result [facility] ID Date Data Source [id number] 05/08/2021 08:43:00 AM EDT [facility] ([facility] Name Value Range Interpretation Code Description Data Radhika rce(s) Supporting Document(s) White Blood Count 4.8 10 4.0-10.0 [facility] ([facility] Hematocrit 27.4 % 36.0-47.0 [facility] Red Blood Count 2.86 10 4.00-5.40 [facility] Hemoglobin 8.2 g/dL 12.0-15.5 [facility] Mean Corpuscular HGB Conc 29.9 g/dL 32.0-36.5 [facility] Mean Corpuscular Volume 95.8 fl 80.0-96.0 M [facility] Mean Corpuscular Hemoglobin 28.7 pg 27.0-33.0 [facility] Red Cell Distribution Width 19.4 % 11.5-14.5 [facility] Platelet Count, Automated 281 10 150-450 [facility] Neutrophils % 81.4 % 36.0-66.0 [facility] Mcleod % 11.2 % 2.0-8.0 [facility] Lymph % 5.2 % 24.0-44.0 [facility] Baso % 0.4 % 0.0-1.0 [facility] Immature Granulocyte % 0.4 % 0-3.0 [facility] Eos % 1.4 % 0.0-3.0 [facility] Neutrophils # 3.9 10 1.5-8.5 [facility] Nucleated Red Blood Cell % 0.0 % 0-0 [facility] Lymph # 0.3 10 1.5-5.0 [facility] Mcleod # 0.5 10 0.0-0.8 [facility] Eos # 0.1 10 0.0-0.5 [facility] Baso # 0.0 10 0.0-0.2 [facility] ID Date Data Source [id number] 05/05/2021 01:09:00 PM EDT [facility] ([facility] Name Value Range Interpretation Code Description Data Radhika rce(s) Supporting Document(s) Reticulocyte # 119.8 10 17-77 [facility] Reticulocyte % 5.9 % 0.5-1.5 [facility] Retic Hemoglobin Equivalent 30.7 pg 24-36 [facility] ID Date Data Source [id number] 05/05/2021 01:09:00 PM EDT [facility] Name Value Range Interpretation Code Description Data Radhika rce(s) Supporting Document(s) Prothrombin Time 14.0 s 12.7-14.5 [facility] Inr 1.04 [facility] THERAPUTIC HUMAN INR VALUES INDICATIONS NORMAL RANGES PROPHYLAXIS/TREATMENT OF: VENOUS THROMBOSIS 2.0-3.0 PULMONARY EMBOLISM 2.0-3.0 PREVENTION OF SYSTEMIC EMBOLISM FROM: TISSUE HEART VALVES 2.0-3.0 ACUTE MYOCARDIAL INFARCTION 2.0-3.0 VALVULAR HEART DISEASE 2.0-3.0 ATRIAL FIBRILLATION 2.0-3.0 MECHANICAL VALVES(HIGH RISK) 2.5-3.5 RECURRENT MYOCARDIAL INFARCTION 2.5-3.5 ID Date Data Source [id number] 05/05/2021 01:09:00 PM EDT [facility] Name Value Range Interpretation Code Description Data Radhika rce(s) Supporting Document(s) aPTT in Platelet poor plasma by Coagulation assay 24.9 s 25.9-37. 0 [facility] ID Date Data Source [id number] 05/05/2021 01:09:00 PM EDT [facility] Name Value Range Interpretation Code Description Data Radhika rce(s) Supporting Document(s) Collagen Epinephrine Laboratory test result 74-162 [facility] <content>UNABLE TO PERFORM TEST DUE TO h ct <35%</content>
<content></content> ID Date Data Source [id number] 05/05/2021 01:09:00 PM EDT [facility] Name Value Range Interpretation Code Description Data Radhika rce(s) Supporting Document(s) Lactate dehydrogenase [Enzymatic activit y/volume] in Serum or Plasma by Lactate to pyruvate reaction 128 U/L 84-246 [facility] Haptoglobin [Mass/volume] in Serum or Plasma 214 mg/dL 41-333 [facility] Performed at: [address] [id number] [employer]ender: Matt Mcdonnell MD, Phone: [phone] Performed at: [facility] [address] [place] [address] [address], [place], [place] [id number] [employer]: Gary Youngblood MD, Phone: [phone] Performed at: [address] [id number] [employer]: eTresa Nguyen MD, Phone: [phone] ID Date Data Source [id number] 05/05/2021 01:09:00 PM EDT [facility] Name Value Range Interpretation Code Description Data Radhika rce(s) Supporting Document(s) F8 Activity For F8 Panel 214 % 56-140 [facility] FVIII activity can increase in a variety [...] been elucidated (Br J Haematol. 2012; 157:653-663). F8 Antigen For F8 Panel 115 % 50-200 [facility] This test was developed and its performa nce characteristics determined by [employer]. It has not been cleared or approved by the Food and Drug Administration. Interpretation: Laboratory test result [facility] ([facility] COAGULATION: VON WILLEBRAND FACTOR ASSESSMENT CURRENT RESULTS [...] cofactor activity; FVIII - factor VIII activity. CEMENT PAVER: For questions regarding panel interpretation, please contact Mikal Wasserman M.D. at [facility] at . DISCLAIMER These assessments and interpretations [...] (1) The National Heart, Lung and Blood [place]. The Diagnosis, Evaluation and Management of von Willebrand Disease. [place], [place]: National Institutes of Health Publication 08-5832. 2007. Available at http://www.nhlbi.nih.gov/guidelines/vwd/. (2) Tayo WL et al. Am J Hematol. 2009; 84(6):366-370. (3) Pam M et al. Haemophilia. 2004;10(3):199-217. (4) Lety WOODRUFF et al. Haemophilia. 2004; 10(3):218-231. F8 Activity vWB For F8 Panel 71 % 50-200 [facility] ID Date Data Source [id number] 05/05/2021 09:52:00 AM EDT [facility] ([facility] Name Value Range Interpretation Code Description Data Radhika rce(s) Supporting Document(s) White Blood Count 5.1 10 4.0-10.0 [facility] ([facility] Red Blood Count 1.99 10 4.00-5.40 [facility] Hemoglobin 6.1 g/dL 12.0-15.5 Below lower panic limits [facility] Hematocrit 20.4 % 36.0-47.0 [facility] Mean Corpuscular Volume 102.5 fl 80.0-96.0 M [facility] ([facility] Mean Corpuscular Hemoglobin 30.7 pg 27.0-33.0 [facility] Red Cell Distribution Width 16.4 % 11.5-14.5 [facility] Platelet Count, Automated 278 10 150-450 [facility] Mean Corpuscular HGB Conc 29.9 g/dL 32.0-36.5 [facility] Neutrophils % 80.4 % 36.0-66.0 [facility] Lymph % 6.3 % 24.0-44.0 [facility] Mcleod % 11.5 % 2.0-8.0 [facility] Baso % 0.4 % 0.0-1.0 [facility] Eos % 0.8 % 0.0-3.0 [facility] Neutrophils # 4.1 10 1.5-8.5 [facility] Immature Granulocyte % 0.6 % 0-3.0 [facility] Nucleated Red Blood Cell % 0.0 % 0-0 [facility] Lymph # 0.3 10 1.5-5.0 [facility] Mcleod # 0.6 10 0.0-0.8 [facility] Eos # 0.0 10 0.0-0.5 [facility] Baso # 0.0 10 0.0-0.2 [facility] ID Date Data Source [id number] 05/05/2021 09:52:00 AM EDT [facility] ([facility] Name Value Range Interpretation Code Description Data Radhika rce(s) Supporting Document(s) AB Screen (Indirect Farooq)Vis Laboratory test result [facility] Blood Type Laboratory test result [facility] ID Date Data Source [id number] 05/05/2021 09:52:00 AM EDT [facility] ([facility] Name Value Range Interpretation Code Description Data Radhika rce(s) Supporting Document(s) Packed Cells Laboratory test result [facility] TRANSFUSED PRODUCT: PACKED CELLS COUNT: 2 ID Date Data Source [id number] 04/27/2021 11:17:00 AM EDT [facility] ([facility] Name Value Range Interpretation Code Description Data Radhika rce(s) Supporting Document(s) Red Blood Count 3.22 10 4.00-5.40 [facility] White Blood Count 4.2 10 4.0-10.0 [facility] ([facility] Hematocrit 32.1 % 36.0-47.0 [facility] Mean Corpuscular Volume 99.7 fl 80.0-96.0 M [facility] ([facility] Hemoglobin 9.8 g/dL 12.0-15.5 [facility] Mean Corpuscular HGB Conc 30.5 g/dL 32.0-36.5 [facility] Mean Corpuscular Hemoglobin 30.4 pg 27.0-33.0 [facility] Platelet Count, Automated 290 10 150-450 [facility] Neutrophils % 77.4 % 36.0-66.0 [facility] Red Cell Distribution Width 15.0 % 11.5-14.5 [facility] Mcleod % 12.8 % 2.0-8.0 [facility] Lymph % 8.1 % 24.0-44.0 [facility] Eos % 1.0 % 0.0-3.0 [facility] Immature Granulocyte % 0.5 % 0-3.0 [facility] Baso % 0.2 % 0.0-1.0 [facility] Lymph # 0.3 10 1.5-5.0 [facility] Neutrophils # 3.3 10 1.5-8.5 [facility] Nucleated Red Blood Cell % 0.0 % 0-0 [facility] Mcleod # 0.5 10 0.0-0.8 [facility] Baso # 0.0 10 0.0-0.2 [facility] Eos # 0.0 10 0.0-0.5 [facility] ID Date Data Source [id number] 04/20/2021 03:39:00 PM EDT [facility] ([facility] Name Value Range Interpretation Code Description Data Radhika rce(s) Supporting Document(s) Red Blood Count 2.28 10 4.00-5.40 [facility] White Blood Count 3.9 10 4.0-10.0 [facility] Mean Corpuscular Volume 102.6 fl 80.0-96.0 M [facility] ([facility] Hemoglobin 6.8 g/dL 12.0-15.5 Below lower panic limits [facility] Hematocrit 23.4 % 36.0-47.0 [facility] Mean Corpuscular Hemoglobin 29.8 pg 27.0-33.0 [facility] Mean Corpuscular HGB Conc 29.1 g/dL 32.0-36.5 [facility] Red Cell Distribution Width 17.6 % 11.5-14.5 [facility] Neutrophils % 77.0 % 36.0-66.0 [facility] Lymph % 8.8 % 24.0-44.0 [facility] Platelet Count, Automated 276 10 150-450 [facility] Mcleod % 11.9 % 2.0-8.0 [facility] Eos % 1.0 % 0.0-3.0 [facility] Nucleated Red Blood Cell % 0.0 % 0-0 [facility] Baso % 0.5 % 0.0-1.0 [facility] Immature Granulocyte % 0.8 % 0-3.0 [facility] Neutrophils # 3.0 10 1.5-8.5 [facility] Lymph # 0.3 10 1.5-5.0 [facility] Eos # 0.0 10 0.0-0.5 [facility] Baso # 0.0 10 0.0-0.2 [facility] Mcleod # 0.5 10 0.0-0.8 [facility] ID Date Data Source [id number] 04/18/2021 10:02:49 PM EDT [facility] Name Value Range Interpretation Code Description Data Radhika rce(s) Supporting Document(s) WBC 3.5 10*3/uL (4.1-11.0) L [facility] [place] RBC 2.39 10*6/uL (4.00-5.40) L [facility] HGB 7.6 g/dL (12.0-16.0) [facility] HCT 24.3 % (36.0-47.0) [facility] MCV 101.8 fL (80.0-95.0) H [facility] MCH 31.7 pg (27.0-32.0) [facility] MCHC 31.1 g/dL (32.0-36.0) [facility] RDW 19.9 % (10.5-14.5) [facility] PLT 272 10*3/uL (150-450) [facility] MPV 8.9 fL (7.1-10.7) [facility] ID Date Data Source [id number] 04/12/2021 02:14:00 PM EDT [facility] ([facility] Name Value Range Interpretation Code Description Data Radhika rce(s) Supporting Document(s) White Blood Count 4.6 10 4.0-10.0 [facility] Red Blood Count 2.91 10 4.00-5.40 [facility] Hemoglobin 8.9 g/dL 12.0-15.5 [facility] Hematocrit 28.8 % 36.0-47.0 [facility] Mean Corpuscular Volume 99.0 fl 80.0-96.0 M [facility] Mean Corpuscular Hemoglobin 30.6 pg 27.0-33.0 [facility] Platelet Count, Automated 225 10 150-450 [facility] Red Cell Distribution Width 18.1 % 11.5-14.5 [facility] Mean Corpuscular HGB Conc 30.9 g/dL 32.0-36.5 [facility] Neutrophils % 82.5 % 36.0-66.0 [facility] Lymph % 6.6 % 24.0-44.0 [facility] Eos % 0.9 % 0.0-3.0 [facility] Baso % 0.2 % 0.0-1.0 [facility] Mcleod % 9.4 % 2.0-8.0 [facility] Neutrophils # 3.8 10 1.5-8.5 [facility] Immature Granulocyte % 0.4 % 0-3.0 [facility] Nucleated Red Blood Cell % 0.0 % 0-0 [facility] Lymph # 0.3 10 1.5-5.0 [facility] Mcleod # 0.4 10 0.0-0.8 [facility] Eos # 0.0 10 0.0-0.5 [facility] Baso # 0.0 10 0.0-0.2 [facility] ID Date Data Source [id number] 04/10/2021 10:15:00 AM EDT [facility] Name Value Range Interpretation Code Description Data [facility](s) Supporting Document(s) Coronavirus 2019 Nasopharygeal Laboratory test result [facility] ASSAY INFORMATION: Real Time RT-PCR or T MA. Both RT-PCR and TMA are nucleic acid amplification tests (NAAT) which are molecular testing modalities and recommended by the CDC for passenger travel. Testing and International Air Travel, cdc.gov/coronavirus/2019-ncov/travelers/gaiahpa-pgw-alwsnf.html 09/01/2020 NOTE: The COVID-19 assay is under Emergency Use Authorization (EUA) by the U.S. Food and Drug Administration. [facility] are designated as high complexity laboratories by the Clinical Laboratory Improvement Amendments of 1988 (CLIA) and are qualified to perform this test. Not Detected ID Date Data Source [id number] 04/10/2021 10:15:00 AM EDT [facility] Name Value Range Interpretation Code Description Data [facility](s) Supporting Document(s) SARS-CoV-2 (COVID-19) RNA [Presence] in Respiratory specimen by KELLI with probe detection Not Detected [facility] This lab was ordered by [facility] and reported by [facility]. ID Date Data Source [id number] 04/07/2021 09:48:00 AM EDT [facility] Name Value Range Interpretation Code Description Data [facility](s) Supporting Document(s) Glucose, Fasting 184 mg/dL 70-100 [facility] Creatinine For GFR 0.81 mg/dL 0.55-1.30 [facility] Blood Urea Nitrogen 30 mg/dL 7-18 [facility] Sodium Level 141 meq/L 136-145 [facility] Glomerular Filtration Rate Laboratory test result [facility] <content>Units are mL/min/1.73 m2</content>
<content></content>
<content>Chronic Kidney Disease Staging per [facility]:</content>
<content></content>
<content>Stage I & II GFR >=60 Normal to Mildly Decreased</content>
<content>Stage III GFR 30- 59 Moderately Decreased</content>
<content>Stage IV GFR 15-29 Severely Decreased</content>
<content>Stage V GFR <15 Very Little GFR Left</content>
<content>ESRD GFR <15 on MATERIALS MANAGEMENT MANAGER</content>
<content></content> Chloride Level 107 meq/L 98-107 [facility] Potassium Serum 4.4 meq/L 3.5-5.1 [facility] Calcium Level 8.9 mg/dL 8.8-10.2 [facility] Carbon Dioxide Level 27 meq/L 21-32 [facility] Anion Gap 7 meq/L 8-16 [facility] Alt/SGPT 12 U/L 12-78 [facility] Ast/Sgot 11 U/L 7-37 [facility] Alkaline Phosphatase 82 U/L 45-117 [facility] Albumin 2.9 GM/DL 3.2-5.2 [facility] Total Protein 5.7 GM/DL 6.4-8.2 [facility] Bilirubin,Total 0.6 mg/dL 0.2-1.0 [facility] Albumin/Globulin Ratio 1.0 1.2-2.2 [facility] ID Date Data Source [id number] 04/07/2021 09:48:00 AM EDT [facility] Name Value Range Interpretation Code Description Data [facility] rce(s) Supporting Document(s) Carcinoembryonic Ag [Mass/volume] in Serum or Plasma Laboratory melly t result [facility] THE CEA ASSAY IS PERFORMED ON THE [employer] BY CHEMILUMINESCENCE AND SHOULD NOT BE COMPARED INTERCHANGEABLY WITH OTHER METHODS. IT SHOULD NOT BE USED ALONE A SCREENING TEST OR DIAGNOSIS FOR THE PRESENCE OR ABSENCE OF MALIGNANT DISEASE. PREDICTIONS OF DISEASE RECURRENCE SHOULD NOT BE BASED SOLELY ON VALUES OBTAINED FROM SERIAL PATIENT SERUM VALUES. Ferritin [Mass/volume] in Serum or Plasma 66 ng/mL 8-252 [facility] ID Date Data Source [id number] 04/07/2021 09:48:00 AM EDT [facility] Name Value Range Interpretation Code Description Data Radhika rce(s) Supporting Document(s) Iron (Fe) 48 ug/dL 50-170 [facility] Total Iron Binding Capacity 353 ug/dL 250-450 [facility] Percent Saturation 13.6 % 13.2-45.0 [facility] ID Date Data Source [id number] 04/07/2021 09:38:00 AM EDT [facility] Name Value Range Interpretation Code Description Data Radhika rce(s) Supporting Document(s) White Blood Count 3.4 10 4.0-10.0 [facility] Red Blood Count 2.12 10 4.00-5.40 [facility] Hemoglobin 6.6 g/dL 12.0-15.5 Below lower panic limits [facility] Hematocrit 22.6 % 36.0-47.0 [facility] Mean Corpuscular Volume 106.6 fl 80.0-96.0 M [facility] Mean Corpuscular HGB Conc 29.2 g/dL 32.0-36.5 [facility] Mean Corpuscular Hemoglobin 31.1 pg 27.0-33.0 [facility] Platelet Count, Automated 290 10 150-450 [facility] Red Cell Distribution Width 17.9 % 11.5-14.5 [facility] Mcleod % 10.9 % 2.0-8.0 [facility] Neutrophils % 78.5 % 36.0-66.0 [facility] Lymph % 8.5 % 24.0-44.0 [facility] Eos % 0.9 % 0.0-3.0 [facility] Baso % 0.6 % 0.0-1.0 [facility] Immature Granulocyte % 0.6 % 0-3.0 [facility] Nucleated Red Blood Cell % 0.0 % 0-0 [facility] Lymph # 0.3 10 1.5-5.0 [facility] Neutrophils # 2.7 10 1.5-8.5 [facility] Mcleod # 0.4 10 0.0-0.8 [facility] Baso # 0.0 10 0.0-0.2 [facility] Eos # 0.0 10 0.0-0.5 [facility] ID Date Data Source [id number] 04/07/2021 09:35:00 AM EDT [facility] Name Value Range Interpretation Code Description Data Radhika rce(s) Supporting Document(s) Packed Cells Laboratory test result [facility] TRANSFUSED PRODUCT: PACKED CELLS COUNT: 3 ID Date Data Source [id number] 04/07/2021 09:35:00 AM EDT [facility] Name Value Range Interpretation Code Description Data Radhika rce(s) Supporting Document(s) AB Screen (Indirect Farooq)Vis Laboratory test result [facility] Blood Type Laboratory test result [facility] ID Date Data Source [id number] 03/24/2021 02:00:00 PM EDT [facility] Name Value Range Interpretation Code Description Data Radhika rce(s) Supporting Document(s) Influenza A Amplification Laboratory test result [facility] Negative results do not preclude influen za or RSV virus infection and should not be used as the sole basis for treatment or other patient management decisions. Laboratory test finding (navigational concept) Laboratory test result [facility] A false negative result may occur if a s pecimen is improperly collected, transported or handled. False [...] pathogens. DISCLAIMER: Testing was performed using the [employer] SARS-CoV-2 test. This test was developed and its performance characteristics determined by [employer]. This test has not been FDA cleared [...] the authorization is terminated or revoked sooner. RSV Amplification Laboratory test result [facility] ([facility] Negative results do not preclude influen za or RSV virus infection and should not be used as the sole basis for treatment or other patient management decisions. Influenza B Amplification Laboratory test result [facility] ([facility] Negative results do not preclude influen za or RSV virus infection and should not be used as the sole basis for treatment or other patient management decisions. ID Date Data Source [id number] 03/24/2021 02:00:00 PM EDT [facility] ([facility] Name Value Range Interpretation Code Description Data Radhika rce(s) Supporting Document(s) Glucose, Fasting 96 mg/dL 70-100 [facility] ([facility] Blood Urea Nitrogen 35 mg/dL 7-18 [facility] ([facility] Creatinine For GFR 0.78 mg/dL 0.55-1.30 [facility] ([facility] [...] Little GFR Left</content>
<content>ESRD GFR <15 on [employer]</content>
<content></content> Sodium Level 141 meq/L 136-145 [facility] ([facility] Potassium Serum 4.3 meq/L 3.5-5.1 [facility] ([facility] Carbon Dioxide Level 24 meq/L 21-32 [facility] (Srinivas [facility] Chloride Level 111 meq/L 98-107 [facility] ([facility] Anion Gap 6 meq/L 8-16 [facility] ([facility] Calcium Level 9.1 mg/dL 8.8-10.2 [facility] ([facility] Alkaline Phosphatase 79 U/L 45-117 [facility] ([facility] Alt/SGPT 14 U/L 12-78 [facility] ([facility] Ast/Sgot 10 U/L 7-37 [facility] ([facility] Total Protein 6.0 GM/DL 6.4-8.2 [facility] ([facility] Bilirubin,Total 0.8 mg/dL 0.2-1.0 [facility] ([facility] Albumin 3.0 GM/DL 3.2-5.2 [facility] ([facility] Albumin/Globulin Ratio 1.0 1.2-2.2 [facility] ([facility] ID Date Data Source [id number] 03/24/2021 02:00:00 PM EDT [facility] Name Value Range Interpretation Code Description Data Radhika rce(s) Supporting Document(s) SARS coronavirus 2 RNA [Presence] in Res piratory specimen by KELLI with probe detection NEGATIVE [facility] This lab was ordered by [facility] a nd reported by [facility]. ID Date Data Source [id number] 03/24/2021 11:43:00 AM EDT [facility] ([facility] Name Value Range Interpretation Code Description Data Radhika rce(s) Supporting Document(s) Packed Cells Laboratory test result [facility] ([facility] TRANSFUSED PRODUCT: PACKED CELLS COUNT: 1 ID Date Data Source [id number] 03/24/2021 11:02:00 AM EDT [facility] ([facility] Name Value Range Interpretation Code Description Data Radhika rce(s) Supporting Document(s) White Blood Count 4.6 10 4.0-10.0 [facility] ([facility]y [facility] Red Blood Count 1.77 10 4.00-5.40 [facility] ([facility] Hemoglobin 5.7 g/dL 12.0-15.5 Below lower panic limits [facility] ([facility] Hematocrit 19.5 % 36.0-47.0 [facility] ([facility]rellana [facility] Mean Corpuscular Hemoglobin 32.2 pg 27.0-33.0 [facility] ([facility] Mean Corpuscular Volume 110.2 fl 80.0-96.0 M [facility] ([facility] Red Cell Distribution Width 21.8 % 11.5-14.5 [facility] ([facility] Mean Corpuscular HGB Conc 29.2 g/dL 32.0-36.5 [facility] ([facility] Platelet Count, Automated 290 10 150-450 [facility] ([facility] Neutrophils % 81.2 % 36.0-66.0 [facility] ([facility] Lymph % 6.2 % 24.0-44.0 [facility] ([facility] Mcleod % 11.4 % 2.0-8.0 [facility] Baso % 0.4 % 0.0-1.0 [facility] Eos % 0.4 % 0.0-3.0 [facility] Nucleated Red Blood Cell % 0.7 % 0-0 [facility] ([facility] Neutrophils # 3.7 10 1.5-8.5 [facility] Immature Granulocyte % 0.4 % 0-3.0 [facility] ([facility] Lymph # 0.3 10 1.5-5.0 [facility] ([facility] Mcleod # 0.5 10 0.0-0.8 [facility] Baso # 0.0 10 0.0-0.2 [facility] Eos # 0.0 10 0.0-0.5 [facility] ID Date Data Source [id number] 03/17/2021 10:56:00 AM EDT [facility] ([facility] Name Value Range Interpretation Code Description Data Radhika rce(s) Supporting Document(s) Calcium [Mass/volume] in Serum or Plasma 9.5 mg/dL 8.7-10.3 [facility] ([facility] Glucose [Mass/volume] in Serum or Plasma 81 mg/dL 65-99 [facility] ([facility] Creatinine [Mass/volume] in Serum or Plasma 0.77 mg/dL 0.57-1.00 [facility] ([facility] Urea nitrogen [Mass/volume] in Serum or Plasma 30 mg/dL 8-27 [facility] ([facility] eGFR If NonAfricn Am 73 mL/min/1.73 [facility] ([facility] eGFR If Africn Am 84 mL/min/1.73 [facility] ([facility] currently reports eGFR in comp liance with the current recommendations of the National Kidney Foundation. [facility] will update reporting as new guidelines are published from the NKF-ASN Task force. Urea nitrogen/Creatinine [Mass Ratio] in Serum or Plasma 39 1 2-28 [facility] Sodium [Moles/volume] in Serum or Plasma 142 mmol/L 134-144 [facility] ([facility] Carbon dioxide, total [Moles/volume] in Serum or Plasma 22 mmol/L 20 -29 [facility] ([facility] Potassium [Moles/volume] in Serum or Plasma 4.4 mmol/L 3.5-5.2 [facility] ([facility] Chloride [Moles/volume] in Serum or Plasma 108 mmol/L 96-106 [facility] ([facility] Protein, Total 6.1 g/dL 6.0-8.5 [facility] ([facility] Albumin [Mass/volume] in Serum or Plasma 4.0 g/dL 3.6-4.6 [facility] ([facility] Albumin/Globulin [Mass Ratio] in Serum or Plasma 1.9 1.2-2.2 [facility] ([facility] Globulin [Mass/volume] in Serum by calculation 2.1 g/dL 1.5-4.5 [facility] ([facility] Bilirubin.total [Mass/volume] in Serum or Plasma 0.7 mg/dL 0.0-1.2 [facility] ([facility] Alkaline phosphatase [Enzymatic activity/volume] in Serum or Plasma 91 IU/L 48-121 [facility] ([facility] Effective March 27, 2021 Alkaline Phosphatase reference interval will be changing [...] years 44 - 121 44 - 121 Alanine aminotransferase [Enzymatic activity/volume] in Seru m or Plasma 8 IU/L 0-32 [facility] Aspartate aminotransferase [Enzymatic activity/volume] in Serum or Plasma 12 IU/L 0-40 [facility] ([facility] ID Date Data Source [id number] 03/17/2021 10:56:00 AM EDT [facility] ([facility] Name Value Range Interpretation Code Description Data Radhika rce(s) Supporting Document(s) Cholesterol [Mass/volume] in Serum or Plasma 123 mg/dL 100-199 [facility] ([facility] Cholesterol in HDL [Mass/volume] in Serum or Plasma 37 mg/dL [facility] Triglyceride [Mass/volume] in Serum or Plasma 141 mg/dL 0-149 [facility] ([facility] Laboratory test finding (navigational concept) 25 mg/dL 5-40 [facility] ([facility] Comment: Laboratory test result [facility] ([facility] Laboratory test finding (navigational concept) 61 mg/dL 0-99 [facility] ([facility] ID Date Data Source [id number] 03/17/2021 10:56:00 AM EDT [facility] ([facility] Name Value Range Interpretation Code Description Data Radhika rce(s) Supporting Document(s) Creatinine [Mass/volume] in Urine 120.2 mg/dL [facility] ([facility] Microalbumin [Mass/volume] in Urine 20.1 ug/mL [facility] ([facility] Albumin/Creatinine [Mass Ratio] in Urine 17 mg/gcreat 0-29 [facility] ([facility] Normal: 0 - 29 Moderately increased: 30 - 300 Severely increased: >300 ID Date Data Source [id number] 03/17/2021 10:56:00 AM EDT [facility] ([facility] Name Value Range Interpretation Code Description Data Radhika rce(s) Supporting Document(s) Hemoglobin A1c/Hemoglobin.total in Blood 4.8 % 4.8-5.6 [facility] ([facility] <content>Prediabetes: 5.7 - 6.4</content >
<content>Diabetes: >6.4</content>
<content>Glycemic control for adults with diabetes: <7.0</content>
<content></content> ID Date Data Source [id number] 03/18/2021 06:06:00 AM EDT [facility] Name Value Range Interpretation Code Description Data Radhika rce(s) Supporting Document(s) Glucose 81 mg/dL 65-99 [facility] BUN 30 mg/dL 8-27 Above high normal [facility] Creatinine 0.77 mg/dL 0.57-1.00 [facility] eGFR If NonAfricn Am 73 mL/min/1.73 >59 [facility] eGFR If Africn Am 84 mL/min/1.73 >59 [facility] currently reports eGFR in comp liance with the current recommendations of the National Kidney Foundation. [facility] will update reporting as new guidelines are published from the NKF-ASN Task force. BUN/Creatinine Ratio 39 12-28 Above high normal [facility] Sodium 142 mmol/L 134-144 [facility] Potassium 4.4 mmol/L 3.5-5.2 [facility] Chloride 108 mmol/L 96-106 Above high normal [facility] Carbon Dioxide, Total 22 mmol/L 20-29 [facility] Calcium 9.5 mg/dL 8.7-10.3 [facility] Protein, Total 6.1 g/dL 6.0-8.5 [facility] Albumin 4.0 g/dL 3.6-4.6 [facility] Globulin, Total 2.1 g/dL 1.5-4.5 [facility] A/G Ratio 1.9 1.2-2.2 [facility] Bilirubin, Total 0.7 mg/dL 0.0-1.2 [facility] Alkaline Phosphatase 91 IU/L 48-121 [facility] Effective March 27, 2021 Alkaline Phosphatase reference interval will be changing [...] years 44 - 121 44 - 121 AST (SGOT) 12 IU/L 0-40 [facility] ALT (SGPT) 8 IU/L 0-32 [facility] ID Date Data Source [id number] 03/18/2021 07:05:00 AM EDT [facility] Name Value Range Interpretation Code Description Data Radhika rce(s) Supporting Document(s) Cholesterol, Total 123 mg/dL 100-199 [facility] Triglycerides 141 mg/dL 0-149 [facility] HDL Cholesterol 37 mg/dL >39 Below low normal [facility] VLDL Cholesterol Gerald 25 mg/dL 5-40 [facility] LDL Chol Calc (NIH) 61 mg/dL 0-99 [facility] ID Date Data Source [id number] 03/18/2021 10:06:00 AM EDT [facility] Name Value Range Interpretation Code Description Data Radhika rce(s) Supporting Document(s) Hemoglobin A1c 4.8 % 4.8-5.6 [facility] Prediabetes: 5.7 - 6.4 Diabetes: >6.4 Glycemic control for adults with diabetes: <7.0 ID Date Data Source [id number] 03/18/2021 03:05:00 PM EDT [facility] Name Value Range Interpretation Code Description Data Radhika rce(s) Supporting Document(s) Creatinine, Urine 120.2 mg/dL Not Estab. [facility] Albumin, Urine 20.1 ug/mL Not Estab. [facility] Alb/Creat Ratio 17 mg/g creat 0-29 [facility] No rmal: 0 - 29 Moderately increased: 30 - 300 Severely increased: >300 ID Date Data Source [id number] 03/14/2021 08:15:00 AM EDT [facility] ([facility] Name Value Range Interpretation Code Description Data Radhika rce(s) Supporting Document(s) Packed Cells Laboratory test result [facility] ([facility] TRANSFUSED PRODUCT: PACKED CELLS COUNT: 2 ID Date Data Source [id number] 03/14/2021 08:15:00 AM EDT [facility] ([facility] Name Value Range Interpretation Code Description Data Radhika rce(s) Supporting Document(s) AB Screen (Indirect Farooq)Vis Laboratory test result [facility] ([facility] Blood Type Laboratory test result [facility] ([facility] ID Date Data Source [id number] 03/14/2021 08:15:00 AM EDT [facility] ([facility] Name Value Range Interpretation Code Description Data Radhika rce(s) Supporting Document(s) White Blood Count 4.0 10 4.0-10.0 [facility] ([facility] Red Blood Count 1.98 10 4.00-5.40 [facility] ([facility] Hemoglobin 6.6 g/dL 12.0-15.5 Below lower panic limits [facility] ([facility] Hematocrit 22.3 % 36.0-47.0 [facility] ([facility] Mean Corpuscular Volume 112.6 fl 80.0-96.0 M [facility] ([facility] Mean Corpuscular HGB Conc 29.6 g/dL 32.0-36.5 [facility] ([facility] Mean Corpuscular Hemoglobin 33.3 pg 27.0-33.0 [facility] ([facility] Red Cell Distribution Width 19.3 % 11.5-14.5 [facility] Platelet Count, Automated 267 10 150-450 [facility] Neutrophils % 81.8 % 36.0-66.0 [facility] ([facility] Lymph % 6.8 % 24.0-44.0 [facility] ([facility] Mcleod % 9.3 % 2.0-8.0 [facility] ([facility] Eos % 1.0 % 0.0-3.0 [facility] ([facility] Baso % 0.8 % 0.0-1.0 [facility] ([facility] Nucleated Red Blood Cell % 0.0 % 0-0 [facility] ([facility] Immature Granulocyte % 0.3 % 0-3.0 [facility] ([facility] Neutrophils # 3.3 10 1.5-8.5 [facility] ([facility] Lymph # 0.3 10 1.5-5.0 [facility] ([facility] Mcleod # 0.4 10 0.0-0.8 [facility] ([facility] Eos # 0.0 10 0.0-0.5 [facility] ([facility] Baso # 0.0 10 0.0-0.2 [facility] ([facility] ID Date Data Source [id number] 03/10/2021 11:17:00 AM EDT [facility] ([facility] Name Value Range Interpretation Code Description Data Radhika rce(s) Supporting Document(s) Carcinoembryonic Ag [Mass/volume] in Serum or Plasma Laboratory melly t result [facility] ([facility] THE CEA ASSAY IS PERFORMED ON THE [employer] BY CHEMILUMINESCENCE AND SHOULD NOT BE COMPARED INTERCHANGEABLY WITH OTHER METHODS. IT SHOULD NOT BE USED ALONE A SCREENING TEST OR DIAGNOSIS FOR THE PRESENCE OR ABSENCE OF MALIGNANT DISEASE. PREDICTIONS OF DISEASE RECURRENCE SHOULD NOT BE BASED SOLELY ON VALUES OBTAINED FROM SERIAL PATIENT SERUM VALUES. Ferritin [Mass/volume] in Serum or Plasma 492 ng/mL 8-252 [facility] ([facility] ID Date Data Source [id number] 03/10/2021 11:17:00 AM EDT [facility] ([facility] Name Value Range Interpretation Code Description Data Radhika rce(s) Supporting Document(s) Iron (Fe) 72 ug/dL 50-170 [facility] ([facility] Total Iron Binding Capacity 352 ug/dL 250-450 [facility] ([facility] Percent Saturation 20.5 % 13.2-45.0 [facility] ([facility]one [facility] ID Date Data Source [id number] 03/10/2021 11:17:00 AM EDT [facility] ([facility] Name Value Range Interpretation Code Description Data Radhika rce(s) Supporting Document(s) Glucose, Fasting 166 mg/dL 70-100 [facility] ([facility] Blood Urea Nitrogen 26 mg/dL 7-18 [facility] ([facility] Creatinine For GFR 0.73 mg/dL 0.55-1.30 [facility] ([facility] [...] Little GFR Left</content>
<content>ESRD GFR <15 on MATERIALS MANAGEMENT MANAGER</content>
<content></content> Sodium Level 141 meq/L 136-145 [facility] Potassium Serum 4.4 meq/L 3.5-5.1 [facility] ([facility] Carbon Dioxide Level 28 meq/L 21-32 [facility] ([facility]ivas [facility] Chloride Level 108 meq/L 98-107 [facility] Anion Gap 5 meq/L 8-16 [facility] ([facility] Calcium Level 8.9 mg/dL 8.8-10.2 [facility] ([facility] Alt/SGPT 13 U/L 12-78 [facility] ([facility] Ast/Sgot 7 U/L 7-37 [facility] ([facility] Alkaline Phosphatase 80 U/L 45-117 [facility] (S[facility]ivas [facility] Albumin 3.1 GM/DL 3.2-5.2 [facility] ([facility] Total Protein 6.1 GM/DL 6.4-8.2 [facility] ([facility] Bilirubin,Total 0.7 mg/dL 0.2-1.0 [facility] ([facility] Albumin/Globulin Ratio 1.0 1.2-2.2 [facility] ([facility] ID Date Data Source [id number] 03/10/2021 11:17:00 AM EDT [facility] ([facility] Name Value Range Interpretation Code Description Data Radhika rce(s) Supporting Document(s) Red Blood Count 2.38 10 4.00-5.40 [facility] ([facility] White Blood Count 3.4 10 4.0-10.0 [facility] ([facility] Hematocrit 25.8 % 36.0-47.0 [facility] ([facility] Mean Corpuscular Volume 108.4 fl 80.0-96.0 M [facility] ([facility] Hemoglobin 7.8 g/dL 12.0-15.5 [facility] ([facility] Mean Corpuscular HGB Conc 30.2 g/dL 32.0-36.5 [facility] ([facility] Mean Corpuscular Hemoglobin 32.8 pg 27.0-33.0 [facility] ([facility] Red Cell Distribution Width 19.5 % 11.5-14.5 [facility] ([facility] Neutrophils % 77.4 % 36.0-66.0 [facility] ([facility] Platelet Count, Automated 267 10 150-450 [facility] ([facility] Lymph % 7.6 % 24.0-44.0 [facility] ([facility] Mcleod % 12.9 % 2.0-8.0 [facility] ([facility] Immature Granulocyte % 0.3 % 0-3.0 [facility] ([facility] Eos % 1.2 % 0.0-3.0 [facility] ([facility] Baso % 0.6 % 0.0-1.0 [facility] ([facility] Nucleated Red Blood Cell % 0.0 % 0-0 [facility] ([facility] Lymph # 0.3 10 1.5-5.0 [facility] ([facility] Neutrophils # 2.6 10 1.5-8.5 [facility] ([facility] Eos # 0.0 10 0.0-0.5 [facility] ([facility] Mcleod # 0.4 10 0.0-0.8 [facility] ([facility] Baso # 0.0 10 0.0-0.2 [facility] ID Date Data Source [id number] 02/28/2021 08:10:00 AM EDT [facility] ([facility] Name Value Range Interpretation Code Description Data Radhika rce(s) Supporting Document(s) AB Screen (Indirect Farooq)Vis Laboratory test result [facility] ([facility] Blood Type Laboratory test result [facility] ([facility] ID Date Data Source [id number] 02/28/2021 08:10:00 AM EDT [facility] ([facility] Name Value Range Interpretation Code Description Data Radhika rce(s) Supporting Document(s) Packed Cells Laboratory test result [facility] ([facility] TRANSFUSED PRODUCT: PACKED CELLS COUNT: 2 ID Date Data Source [id number] 02/27/2021 09:45:00 AM EDT [facility] ([facility] Name Value Range Interpretation Code Description Data Radhika rce(s) Supporting Document(s) Red Blood Count 2.00 10 4.00-5.40 [facility] ([facility] White Blood Count 6.0 10 4.0-10.0 [facility] ([facility]y [facility] Hemoglobin 6.5 g/dL 12.0-15.5 Below lower panic limits [facility] ([facility] Mean Corpuscular Volume 112.5 fl 80.0-96.0 M [facility] ([facility] Hematocrit 22.5 % 36.0-47.0 [facility] ([facility] Red Cell Distribution Width 24.1 % 11.5-14.5 [facility] ([facility] Mean Corpuscular HGB Conc 28.9 g/dL 32.0-36.5 [facility] ([facility] Mean Corpuscular Hemoglobin 32.5 pg 27.0-33.0 [facility] Platelet Count, Automated 316 10 150-450 [facility] Neutrophils % 82.1 % 36.0-66.0 [facility] Lymph % 4.7 % 24.0-44.0 [facility] ([facility] Eos % 0.5 % 0.0-3.0 [facility] ([facility] Mcleod % 11.6 % 2.0-8.0 [facility] ([facility] Immature Granulocyte % 0.8 % 0-3.0 [facility] Nucleated Red Blood Cell % 0.3 % 0-0 [facility] Baso % 0.3 % 0.0-1.0 [facility] ([facility] Lymph # 0.3 10 1.5-5.0 [facility] ([facility] Neutrophils # 4.9 10 1.5-8.5 [facility] ([facility] Eos # 0.0 10 0.0-0.5 [facility] ([facility] Baso # 0.0 10 0.0-0.2 [facility] ([facility] Mcleod # 0.7 10 0.0-0.8 [facility] ([facility] ID Date Data Source [id number] 02/27/2021 09:45:00 AM EDT [facility] ([facility] Name Value Range Interpretation Code Description Data Radhika rce(s) Supporting Document(s) Ferritin [Mass/volume] in Serum or Plasma 1039 ng/mL 8-252 [facility] ([facility] ID Date Data Source [id number] 02/27/2021 09:45:00 AM EDT [facility] ([facility] Name Value Range Interpretation Code Description Data Radhika rce(s) Supporting Document(s) Iron (Fe) 79 ug/dL 50-170 [facility] ([facility] Total Iron Binding Capacity 384 ug/dL 250-450 [facility] Percent Saturation 20.6 % 13.2-45.0 [facility] ([facility] ID Date Data Source [id number] 02/27/2021 09:45:00 AM EDT [facility] ([facility] Name Value Range Interpretation Code Description Data Radhika rce(s) Supporting Document(s) Creatinine For GFR 0.76 mg/dL 0.55-1.30 [facility] ([facility] [...] Little GFR Left</content>
<content>ESRD GFR <15 on MATERIALS MANAGEMENT MANAGER</content>
<content></content> ID Date Data Source [id number] 02/27/2021 09:45:00 AM EDT [facility] ([facility] Name Value Range Interpretation Code Description Data Radhika rce(s) Supporting Document(s) Urea nitrogen [Mass/volume] in Serum or Plasma 26 mg/dL 7-18 [facility] ([facility] ID Date Data Source [id number] 02/27/2021 09:45:00 AM EDT [facility] ([facility]) Name Value Range Interpretation Code Description Data Radhika rce(s) Supporting Document(s) Red Blood Count 2.00 10 4.00-5.40 Below low normal [facility] ([facility]) White Blood Count 6.0 10 4.0-10.0 Normal (applies to non-numeri c results) [facility] ([facility]) Hematocrit 22.5 % 36.0-47.0 Below low normal [facility] ( [facility]) Hemoglobin 6.5 g/dL 12.0-15.5 Below lower panic limits [facility] ([facility]) Mean Corpuscular Hemoglobin 32.5 pg 27.0-33.0 Norm al (applies to non-numeric results) [facility] ([facility]) Mean Corpuscular Volume 112.5 fl 80.0-96.0 Above high normal [facility] ([facility]) Mean Corpuscular HGB Conc 28.9 g/dL 32.0-36.5 Below low normal [facility] ([facility]) Platelet Count, Automated 316 10 150-450 Normal (applies to non-numeric results) [facility] ([facility]) Red Cell Distribution Width 24.1 % 11.5-14.5 Above high normal [facility] ([facility]) Lymph % 4.7 % 24.0-44.0 Below low normal [facility] ( [facility]) Neutrophils % 82.1 % 36.0-66.0 Above high normal [facility] ([facility]) Mcleod % 11.6 % 2.0-8.0 Above high normal [facility] ([facility]) Eos % 0.5 % 0.0-3.0 Normal (applies to non-numeric resul ts) [facility] ([facility]) Immature Granulocyte % 0.8 % 0-3.0 Normal (applies to non-n umeric results) [facility] ([facility]) Baso % 0.3 % 0.0-1.0 Normal (applies to non-numeric resul ts) [facility] ([facility]) Neutrophils # 4.9 10 1.5-8.5 Normal (applies to non-numeric re sults) [facility] ([facility]) Nucleated Red Blood Cell % 0.3 % 0-0 Above high normal [facility] ([facility]) Lymph # 0.3 10 1.5-5.0 Below low normal [facility] ( [facility]) Mcleod # 0.7 10 0.0-0.8 Normal (applies to non-numeric resul ts) [facility] ([facility]) Eos # 0.0 10 0.0-0.5 Normal (applies to non-numeric resul ts) [facility] ([facility]) Baso # 0.0 10 0.0-0.2 Normal (applies to non-numeric resul ts) [facility] ([facility]) ID Date Data Source [id number] 02/27/2021 09:45:00 AM EDT [facility] Name Value Range Interpretation Code Description Data Radhika rce(s) Supporting Document(s) Ferritin [Mass/volume] in Serum or Plasma 1039 ng/mL 8-252 Above high normal [facility] ([facility]) ID Date Data Source [id number] 02/27/2021 09:45:00 AM EDT [facility] ([facility]) Name Value Range Interpretation Code Description Data Radhika rce(s) Supporting Document(s) Iron (Fe) 79 ug/dL 50-170 Normal (applies to non-numeric resul ts) [facility] ([facility]) Total Iron Binding Capacity 384 ug/dL 250-450 Norm al (applies to non-numeric results) [facility] ([facility]) Percent Saturation 20.6 % 13.2-45.0 Normal (applies to non-numer ic results) [facility] ([facility]) ID Date Data Source [id number] 02/27/2021 09:45:00 AM EDT [facility] ([facility]) Name Value Range Interpretation Code Description Data Radhika rce(s) Supporting Document(s) Creatinine For GFR 0.76 mg/dL 0.55-1.30 Normal (applies to non -numeric results) [facility] ([facility]) Glomerular Filtration Rate Laboratory test result Normal (applies to non- numeric results) [facility] ([facility]) <content>Units are mL/min/1.73 m2</content>
<content></content>
<content>Chronic Kidney Disease Staging per NK[facility]:</content>
<content></content>
<content>Stage I & II GFR >=60 Normal to Mildly Decreased</content>
<content>Stage III GFR 30- 59 Moderately Decreased</content>
<content>Stage IV GFR 15-29 Severely Decreased</content>
<content>Stage V GFR <15 Very Little GFR Left</content>
<content>ESRD GFR <15 on MATERIALS MANAGEMENT MANAGER</content>
<content></content> ID Date Data Source [id number] 02/27/2021 09:45:00 AM EDT [facility] ([facility]) Name Value Range Interpretation Code Description Data Radhika rce(s) Supporting Document(s) Urea nitrogen [Mass/volume] in Serum or Plasma 26 mg/dL 7-18 Above high normal [facility] ([facility]) ID Date Data Source [id number] 02/10/2021 08:41:00 AM EDT [facility] ([facility] Name Value Range Interpretation Code Description Data Radhika rce(s) Supporting Document(s) AB Screen (Indirect Farooq)Vis Laboratory test result [facility] ([facility] Blood Type Laboratory test result [facility] ([facility] ID Date Data Source [id number] 02/10/2021 08:41:00 AM EDT [facility] ([facility] Name Value Range Interpretation Code Description Data Radhika rce(s) Supporting Document(s) Packed Cells Laboratory test result [facility] ([facility] TRANSFUSED PRODUCT: PACKED CELLS COUNT: 2 ID Date Data Source [id number] 02/09/2021 10:34:00 AM EDT [facility] ([facility] Name Value Range Interpretation Code Description Data Radhika rce(s) Supporting Document(s) White Blood Count 3.9 10 4.0-10.0 [facility] ([facility] Hemoglobin 7.2 g/dL 12.0-15.5 [facility] ([facility] Red Blood Count 2.44 10 4.00-5.40 [facility] Mean Corpuscular Volume 100.8 fl 80.0-96.0 M [facility] ([facility] Mean Corpuscular Hemoglobin 29.5 pg 27.0-33.0 [facility] Hematocrit 24.6 % 36.0-47.0 [facility] ([facility] Mean Corpuscular HGB Conc 29.3 g/dL 32.0-36.5 [facility] Red Cell Distribution Width 18.6 % 11.5-14.5 [facility] Neutrophils % 80.8 % 36.0-66.0 [facility] Lymph % 7.2 % 24.0-44.0 [facility] ([facility] Platelet Count, Automated 283 10 150-450 [facility] Mcleod % 10.0 % 2.0-8.0 [facility] Eos % 1.0 % 0.0-3.0 [facility] Immature Granulocyte % 0.5 % 0-3.0 [facility] Nucleated Red Blood Cell % 0.0 % 0-0 [facility] ([facility] Baso % 0.5 % 0.0-1.0 [facility] ([facility] Neutrophils # 3.1 10 1.5-8.5 [facility] Lymph # 0.3 10 1.5-5.0 [facility] ([facility] Mcleod # 0.4 10 0.0-0.8 [facility] Eos # 0.0 10 0.0-0.5 [facility] Baso # 0.0 10 0.0-0.2 [facility] ([facility] ID Date Data Source [id number] 01/27/2021 01:12:00 PM EDT [facility] ([facility] Name Value Range Interpretation Code Description Data Radhika rce(s) Supporting Document(s) White Blood Count 4.2 10 4.0-10.0 [facility] ([facility] Red Blood Count 3.81 10 4.00-5.40 [facility] Hemoglobin 11.2 g/dL 12.0-15.5 [facility] Mean Corpuscular Volume 95.5 fl 80.0-96.0 M [facility] Hematocrit 36.4 % 36.0-47.0 [facility] ([facility] Mean Corpuscular Hemoglobin 29.4 pg 27.0-33.0 [facility] ([facility] Red Cell Distribution Width 17.1 % 11.5-14.5 [facility] Mean Corpuscular HGB Conc 30.8 g/dL 32.0-36.5 [facility] Platelet Count, Automated 330 10 150-450 [facility] Neutrophils % 69.4 % 36.0-66.0 [facility] Lymph % 13.6 % 24.0-44.0 [facility] ([facility] Mcleod % 14.6 % 2.0-8.0 [facility] Eos % 1.4 % 0.0-3.0 [facility] Baso % 0.5 % 0.0-1.0 [facility] Immature Granulocyte % 0.5 % 0-3.0 [facility] Nucleated Red Blood Cell % 0.0 % 0-0 [facility] ([facility] Neutrophils # 2.9 10 1.5-8.5 [facility] Mcleod # 0.6 10 0.0-0.8 [facility] ([facility] Lymph # 0.6 10 1.5-5.0 [facility] ([facility] A[facility] Krystian [facility] Baso # 0.0 10 0.0-0.2 [facility] ([facility] Eos # 0.1 10 0.0-0.5 [facility] ID Date Data Source [id number] 01/27/2021 01:12:00 PM EDT [facility] ([facility] Name Value Range Interpretation Code Description Data Radhika rce(s) Supporting Document(s) Glucose, Fasting 59 mg/dL 70-100 [facility] Blood Urea Nitrogen 25 mg/dL 7-18 [facility] ([facility] Sodium Level 141 meq/L 136-145 [facility] Glomerular Filtration Rate Laboratory test result [facility] <content>Units are mL/min/1.73 m2</content>
<content></content>
<content>Chronic Kidney Disease Staging per [facility]:</content>
<content></content>
<content>Stage I & II GFR >=60 Normal to Mildly Decreased</content>
<content>Stage III GFR 30- 59 Moderately Decreased</content>
<content>Stage IV GFR 15-29 Severely Decreased</content>
<content>Stage V GFR <15 Very Little GFR Left</content>
<content>ESRD GFR <15 on MATERIALS MANAGEMENT MANAGER</content>
<content></content> Creatinine For GFR 0.71 mg/dL 0.55-1.30 [facility] Potassium Serum 4.3 meq/L 3.5-5.1 [facility] Chloride Level 109 meq/L 98-107 [facility] ([facility] A . Franco[facility] Anion Gap 4 meq/L 8-16 [facility] Carbon Dioxide Level 28 meq/L 21-32 [facility] ([facility] Ast/Sgot 8 U/L 7-37 [facility] Alt/SGPT 14 U/L 12-78 [facility] Calcium Level 9.4 mg/dL 8.8-10.2 [facility] Total Protein 6.2 GM/DL 6.4-8.2 [facility] Bilirubin,Total 0.8 mg/dL 0.2-1.0 [facility] Alkaline Phosphatase 86 U/L 45-117 [facility] ([facility] Albumin/Globulin Ratio 1.1 1.2-2.2 [facility] Albumin 3.2 GM/DL 3.2-5.2 [facility] ID Date Data Source [id number] 01/27/2021 01:12:00 PM EDT [facility] ([facility] Name Value Range Interpretation Code Description Data Radhika rce(s) Supporting Document(s) Ferritin [Mass/volume] in Serum or Plasma 39 ng/mL 8-252 [facility] Carcinoembryonic Ag [Mass/volume] in Serum or Plasma 0.5 ng/mL [facility] THE CEA ASSAY IS PERFORMED ON THE [employer] BY CHEMILUMINESCENCE AND SHOULD NOT BE COMPARED INTERCHANGEABLY WITH OTHER METHODS. IT SHOULD NOT BE USED ALONE A SCREENING TEST OR DIAGNOSIS FOR THE PRESENCE OR ABSENCE OF MALIGNANT DISEASE. PREDICTIONS OF DISEASE RECURRENCE SHOULD NOT BE BASED SOLELY ON VALUES OBTAINED FROM SERIAL PATIENT SERUM VALUES. ID Date Data Source [id number] 01/27/2021 01:12:00 PM EDT [facility] Name Value Range Interpretation Code Description Data Radhika rce(s) Supporting Document(s) Iron (Fe) 59 ug/dL 50-170 [facility] Total Iron Binding Capacity 397 ug/dL 250-450 [facility] Percent Saturation 14.9 % 13.2-45.0 [facility] ([facility]one [facility] ID Date Data Source [id number] 01/20/2021 11:42:00 AM EDT [facility] ([facility] Name Value Range Interpretation Code Description Data Radhika e(s) Supporting Document(s) Blood Type Laboratory test result [facility] AB Screen (Indirect Farooq)Vis Laboratory test result [facility] ID Date Data Source [id number] 01/20/2021 11:42:00 AM EDT [facility] ([facility] [...] Little GFR Left</content>
<content>ESRD GFR <15 on MATERIALS MANAGEMENT MANAGER</content>
<content></content> ID Date Data Source [id number] 01/20/2021 11:42:00 AM EDT [facility] ([facility] Name Value Range Interpretation Code Description Data Radhika rce(s) Supporting Document(s) Urea nitrogen [Mass/volume] in Serum or Plasma 21 mg/dL 7-18 [facility] ID Date Data Source [id number] 01/20/2021 11:42:00 AM EDT [facility] ([facility] Name Value Range Interpretation Code Description Data Radhika e(s) Supporting Document(s) White Blood Count 3.3 10 4.0-10.0 [facility] ([facility]y [facility] Red Blood Count 1.89 10 4.00-5.40 [facility] Hemoglobin 5.8 g/dL 12.0-15.5 Below lower panic limits [facility] Hematocrit 19.4 % 36.0-47.0 [facility] Mean Corpuscular Hemoglobin 30.7 pg 27.0-33.0 [facility] Mean Corpuscular Volume 102.6 fl 80.0-96.0 M [facility] ([facility] Mean Corpuscular HGB Conc 29.9 g/dL 32.0-36.5 [facility] Platelet Count, Automated 336 10 150-450 [facility] Nucleated Red Blood Cell % 0.0 % 0-0 [facility] Red Cell Distribution Width 16.3 % 11.5-14.5 [facility] ID Date Data Source [id number] 01/16/2021 09:50:00 AM EDT [facility] ([facility] Name Value Range Interpretation Code Description Data Radhika rce(s) Supporting Document(s) Coronavirus 2019 Nasopharygeal Laboratory test result [facility] ([facility] ASSAY INFORMATION: Real Time RT-PCR NOTE: The COVID-19 assay has been cleared by the U.S. Food and Drug Administration under the Emergency Use Authorization (EUA). [facility] are designated as high complexity laboratories by the Clinical Laboratory Improvement Amendments of 1988(CLIA) and are qualified to perform this test. Not Detected ID Date Data Source [id number] 01/03/2021 03:13:00 PM EDT [facility] Name Value Range Interpretation Code Description Data Radhika rce(s) Supporting Document(s) Packed Cells Laboratory test result [facility] TRANSFUSED PRODUCT: PACKED CELLS COUNT: 1 ID Date Data Source [id number] 01/03/2021 03:13:00 PM EDT [facility] Name Value Range Interpretation Code Description Data Radhika rce(s) Supporting Document(s) AB Screen (Indirect Farooq)Vis Laboratory test result [facility] Blood Type Laboratory test result [facility] ID Date Data Source [id number] 01/02/2021 03:58:00 PM EDT [facility] ([facility] Name Value Range Interpretation Code Description Data Radhika rce(s) Supporting Document(s) Iron (Fe) 55 ug/dL 50-170 [facility] Total Iron Binding Capacity 398 ug/dL 250-450 [facility] Percent Saturation 13.8 % 13.2-45.0 [facility] ([facility]one [facility] ID Date Data Source [id number] 01/02/2021 03:58:00 PM EDT [facility] Name Value Range Interpretation Code Description Data Radhika rce(s) Supporting Document(s) Glucose, Fasting 155 mg/dL 70-100 [facility] Blood Urea Nitrogen 24 mg/dL 7-18 [facility] ([facility] Creatinine For GFR 0.85 mg/dL 0.55-1.30 [facility] Sodium Level 137 meq/L 136-145 [facility] Glomerular Filtration Rate Laboratory test result [facility] <content>Units are mL/min/1.73 m2</content>
<content></content>
<content>Chronic Kidney Disease Staging per [facility]:</content>
<content></content>
<content>Stage I & II GFR >=60 Normal to Mildly Decreased</content>
<content>Stage III GFR 30- 59 Moderately Decreased</content>
<content>Stage IV GFR 15-29 Severely Decreased</content>
<content>Stage V GFR <15 Very Little GFR Left</content>
<content>ESRD GFR <15 on MATERIALS MANAGEMENT MANAGER</content>
<content></content> Chloride Level 105 meq/L 98-107 [facility] Potassium Serum 4.4 meq/L 3.5-5.1 [facility] Carbon Dioxide Level 27 meq/L 21-32 [facility] ([facility]ivas [facility] Anion Gap 5 meq/L 8-16 [facility] ([facility] Calcium Level 8.7 mg/dL 8.8-10.2 [facility] Ast/Sgot 11 U/L 7-37 [facility] Alkaline Phosphatase 80 U/L 45-117 [facility] Alt/SGPT 13 U/L 12-78 [facility] Total Protein 6.6 GM/DL 6.4-8.2 [facility] Albumin 3.5 GM/DL 3.2-5.2 [facility] ([facility] Bilirubin,Total 0.6 mg/dL 0.2-1.0 [facility] Albumin/Globulin Ratio 1.1 1.2-2.2 [facility] ID Date Data Source [id number] 01/02/2021 03:58:00 PM EDT [facility] ([facility] Name Value Range Interpretation Code Description Data Radhika rce(s) Supporting Document(s) Thyrotropin [Units/volume] in Serum or Plasma 1.660 uIU/ML 0.358-3.74 0 [facility] Thyroxine (T4) free [Mass/volume] in Serum or Plasma 0.87 ng/dL 0.76- 1.46 [facility] Ferritin [Mass/volume] in Serum or Plasma 58 ng/mL 8-252 [facility] ID Date Data Source [id number] 01/02/2021 03:58:00 PM EDT [facility] ([facility] Name Value Range Interpretation Code Description Data Radhika rce(s) Supporting Document(s) Red Blood Count 2.48 10 4.00-5.40 [facility] White Blood Count 4.3 10 4.0-10.0 [facility] ([facility]y [facility] Hemoglobin 8.1 g/dL 12.0-15.5 [facility] Hematocrit 25.8 % 36.0-47.0 [facility] Mean Corpuscular Volume 104.0 fl 80.0-96.0 M [facility] Mean Corpuscular Hemoglobin 32.7 pg 27.0-33.0 [facility] Mean Corpuscular HGB Conc 31.4 g/dL 32.0-36.5 [facility] Red Cell Distribution Width 18.2 % 11.5-14.5 [facility] Neutrophils % 74.5 % 36.0-66.0 [facility] Platelet Count, Automated 315 10 150-450 [facility] Mcleod % 13.1 % 2.0-8.0 [facility] ([facility] Lymph % 10.7 % 24.0-44.0 [facility] Eos % 0.7 % 0.0-3.0 [facility] Baso % 0.5 % 0.0-1.0 [facility] Immature Granulocyte % 0.5 % 0-3.0 [facility] Neutrophils # 3.2 10 1.5-8.5 [facility] Nucleated Red Blood Cell % 0.0 % 0-0 [facility]a [facility] Lymph # 0.5 10 1.5-5.0 [facility] ([facility] Mcleod # 0.6 10 0.0-0.8 [facility] Baso # 0.0 10 0.0-0.2 [facility] Eos # 0.0 10 0.0-0.5 [facility] ID Date Data Source [id number] 12/23/2020 02:21:00 PM EDT [facility] ([facility] Name Value Range Interpretation Code Description Data Radhika rce(s) Supporting Document(s) Troponin I.cardiac [Mass/volume] in Serum or Plasma 0.01 ng/mL 0.00-0 .08 [facility] ID Date Data Source [id number] 12/23/2020 02:19:00 PM EDT [facility] ([facility] Name Value Range Interpretation Code Description Data Radhika rce(s) Supporting Document(s) Laboratory test finding (navigational concept) 33.0 % 38.0-51.0 [facility] Laboratory test finding (navigational concept) 138 meq/L 136-145 [facility] Laboratory test finding (navigational concept) 94 mg/dL 70-105 [facility] Laboratory test finding (navigational concept) 4.2 meq/L 3.5-5.1 [facility] Laboratory test finding (navigational concept) 5.0 mg/dL 4.5-5.3 [facility] Laboratory test finding (navigational concept) 27.0 MM/L 23.0-27.0 [facility] Laboratory test finding (navigational concept) 102 meq/L 98-109 [facility] Laboratory test finding (navigational concept) 20 mg/dL 8-26 [facility] Laboratory test finding (navigational concept) 0.7 mg/dL 0.6-1.3 [facility] ID Date Data Source [id number] 12/23/2020 02:03:00 PM EDT [facility] ([facility] Name Value Range Interpretation Code Description Data Radhika rce(s) Supporting Document(s) Lactate [Mass/volume] in Serum or Plasma 0.8 mmol/L 0.4-2.0 [facility] Y/N query for Sepsis Lactate Rule: Y Lipoprotein lipase [Enzymatic activity/volume] in Serum or Plasm a 73 U/L 73-393 [facility] ID Date Data Source [id number] 12/23/2020 02:03:00 PM EDT [facility] Name Value Range Interpretation Code Description Data [facility](s) Supporting Document(s) Ast/Sgot 13 U/L 7-37 [facility] Alt/SGPT 14 U/L 12-78 [facility] Alkaline Phosphatase 95 U/L 45-117 [facility] (Srinivas [facility] Bilirubin,Direct 0.3 mg/dL 0.0-0.2 [facility] Bilirubin,Total 0.9 mg/dL 0.2-1.0 [facility] Albumin 3.4 GM/DL 3.2-5.2 [facility] Total Protein 6.5 GM/DL 6.4-8.2 [facility] Albumin/Globulin Ratio 1.1 1.2-2.2 [facility] ID Date Data Source [id number] 12/23/2020 02:03:00 PM EDT [facility] Name Value Range Interpretation Code Description Data [facility](s) Supporting Document(s) Prothrombin Time 13.3 s 12.5-14.3 [facility] Inr 0.99 [facility] ([facility] THERAPUTIC HUMAN INR VALUES INDICATIONS NORMAL RANGES PROPHYLAXIS/TREATMENT OF: VENOUS THROMBOSIS 2.0-3.0 PULMONARY EMBOLISM 2.0-3.0 PREVENTION OF SYSTEMIC EMBOLISM FROM: TISSUE HEART VALVES 2.0-3.0 ACUTE MYOCARDIAL INFARCTION 2.0-3.0 VALVULAR HEART DISEASE 2.0-3.0 ATRIAL FIBRILLATION 2.0-3.0 MECHANICAL VALVES(HIGH RISK) 2.5-3.5 RECURRENT MYOCARDIAL INFARCTION 2.5-3.5 Partial Thromboplastin Time 29.5 s 24.2-38.5 [facility] ID Date Data Source [id number] 12/23/2020 02:03:00 PM EDT [facility] Name Value Range Interpretation Code Description Data Radhika rce(s) Supporting Document(s) White Blood Count 4.5 10 4.0-10.0 [facility] ([facility]y [facility] Hemoglobin 10.2 g/dL 12.0-15.5 [facility] Red Blood Count 3.26 10 4.00-5.40 [facility] Mean Corpuscular Volume 99.1 fl 80.0-96.0 M [facility] Hematocrit 32.3 % 36.0-47.0 [facility] Red Cell Distribution Width 16.4 % 11.5-14.5 [facility] Mean Corpuscular Hemoglobin 31.3 pg 27.0-33.0 [facility] Mean Corpuscular HGB Conc 31.6 g/dL 32.0-36.5 [facility] Platelet Count, Automated 259 10 150-450 [facility] Neutrophils % 76.7 % 36.0-66.0 [facility] Lymph % 9.7 % 24.0-44.0 [facility] Mcleod % 11.9 % 2.0-8.0 [facility] ([facility]a A. Krystian li[facility] Eos % 0.9 % 0.0-3.0 [facility] Immature Granulocyte % 0.4 % 0-3.0 [facility] Baso % 0.4 % 0.0-1.0 [facility] Nucleated Red Blood Cell % 0.0 % 0-0 [facility] Lymph # 0.4 10 1.5-5.0 [facility] Neutrophils # 3.5 10 1.5-8.5 [facility] Eos # 0.0 10 0.0-0.5 [facility] Mcleod # 0.5 10 0.0-0.8 [facility] Baso # 0.0 10 0.0-0.2 [facility] ID Date Data Source [id number] 12/19/2020 02:59:00 PM EDT [facility] ([facility] Name Value Range Interpretation Code Description Data Radhika rce(s) Supporting Document(s) Red Blood Count 3.30 10 4.00-5.40 [facility] Hemoglobin 10.1 g/dL 12.0-15.5 [facility] White Blood Count 3.8 10 4.0-10.0 [facility] ([facility]y [facility] Mean Corpuscular Hemoglobin 30.6 pg 27.0-33.0 [facility] Hematocrit 32.9 % 36.0-47.0 [facility] Mean Corpuscular Volume 99.7 fl 80.0-96.0 M [facility] ([facility] Mean Corpuscular HGB Conc 30.7 g/dL 32.0-36.5 [facility] Red Cell Distribution Width 16.2 % 11.5-14.5 [facility] Platelet Count, Automated 241 10 150-450 [facility] Lymph % 11.7 % 24.0-44.0 [facility] ([facility] Neutrophils % 74.5 % 36.0-66.0 [facility] Eos % 1.1 % 0.0-3.0 [facility] Mcleod % 11.9 % 2.0-8.0 [facility] Baso % 0.3 % 0.0-1.0 [facility] Nucleated Red Blood Cell % 0.0 % 0-0 [facility] Immature Granulocyte % 0.5 % 0-3.0 [facility] Lymph # 0.4 10 1.5-5.0 [facility] ([facility] Neutrophils # 2.8 10 1.5-8.5 [facility] Mcleod # 0.5 10 0.0-0.8 [facility] Baso # 0.0 10 0.0-0.2 [facility] Eos # 0.0 10 0.0-0.5 [facility] ID Date Data Source [id number] 12/06/2020 10:00:32 AM [facility]T [facility] [place] MR[facility] Name Date of Age Gend*PT [id number] Meron Rico 1940 80 years F ---PT Location Admission Date/Time Visit ID Attending Provider --- --- --- --- EPI ID CSN Admitting P ian [id number] ---Addended by: GEORGINA JENKINS on: 12/06/2020 10:00 AM Modules accepted: Orders Name Value Range Interpretation Code Description Data Radhika rce(s) Supporting Document(s) ID Date Data Source [id number] 12/05/2020 04:32:00 PM EDT [facility] ([facility] Name Value Range Interpretation Code Description Data Radhika rce(s) Supporting Document(s) Inr 0.99 [facility] ([facility] THERAPUTIC HUMAN INR VALUES INDICATIONS NORMAL RANGES PROPHYLAXIS/TREATMENT OF: VENOUS THROMBOSIS 2.0-3.0 PULMONARY EMBOLISM 2.0-3.0 PREVENTION OF SYSTEMIC EMBOLISM FROM: TISSUE HEART VALVES 2.0-3.0 ACUTE MYOCARDIAL INFARCTION 2.0-3.0 VALVULAR HEART DISEASE 2.0-3.0 ATRIAL FIBRILLATION 2.0-3.0 MECHANICAL VALVES(HIGH RISK) 2.5-3.5 RECURRENT MYOCARDIAL INFARCTION 2.5-3.5 Prothrombin Time 13.3 s 12.5-14.3 [facility] Partial Thromboplastin Time 29.4 s 24.2-38.5 [facility] ID Date Data Source [id number] 12/05/2020 04:32:00 PM EDT [facility] Name Value Range Interpretation Code Description Data Radhika rce(s) Supporting Document(s) Iron (Fe) 94 ug/dL 50-170 [facility] Total Iron Binding Capacity 350 ug/dL 250-450 [facility] Percent Saturation 26.9 % 13.2-45.0 [facility] ([facility]one [facility] ID Date Data Source [id number] 12/05/2020 04:32:00 PM EDT [facility] Name Value Range Interpretation Code Description Data Radhika rce(s) Supporting Document(s) Ferritin [Mass/volume] in Serum or Plasma 108 ng/mL 8-252 [facility] ID Date Data Source [id number] 12/05/2020 04:32:00 PM EDT [facility] Name Value Range Interpretation Code Description Data Radhika rce(s) Supporting Document(s) White Blood Count 3.4 10 4.0-10.0 [facility] Red Blood Count 3.86 10 4.00-5.40 [facility] Hematocrit 38.4 % 36.0-47.0 [facility] Hemoglobin 11.9 g/dL 12.0-15.5 [facility] Mean Corpuscular Hemoglobin 30.8 pg 27.0-33.0 [facility] Mean Corpuscular Volume 99.5 fl 80.0-96.0 M [facility] ([facility] Mean Corpuscular HGB Conc 31.0 g/dL 32.0-36.5 [facility] Red Cell Distribution Width 15.8 % 11.5-14.5 [facility] Platelet Count, Automated 397 10 150-450 [facility] ([facility] Mcleod % 13.7 % 2.0-8.0 [facility] ([facility] Lymph % 12.8 % 24.0-44.0 [facility] ([facility] Neutrophils % 71.4 % 36.0-66.0 [facility] ([facility] Baso % 0.6 % 0.0-1.0 [facility] ([facility] Eos % 1.2 % 0.0-3.0 [facility] ([facility] Nucleated Red Blood Cell % 0.0 % 0-0 [facility] ([facility] Immature Granulocyte % 0.3 % 0-3.0 [facility] ([facility] Neutrophils # 2.4 10 1.5-8.5 [facility] ([facility] Lymph # 0.4 10 1.5-5.0 [facility] ([facility] Mcleod # 0.5 10 0.0-0.8 [facility] ([facility] Eos # 0.0 10 0.0-0.5 [facility] Baso # 0.0 10 0.0-0.2 [facility] ([facility] ID Date Data Source [id number] 11/26/2020 03:53:00 AM EDT [facility] FASTING: UNKNOWNReceived: 11/25/2020 at 12:06:00 QPT: [facility], [address], [address] [place], [address], Levi Garcia MD Received: 11/25/2020 at 12:06:00 QPT : [facility], [address], [address] [place], [phone], Levi Garcia MD Received: 11/25/2020 at 12:06:00 QPT : [facility], [address], [address] [place], [phone], Levi Garcia MD Received: 11/25/2020 at 12:06:00 QPT : [facility], [address], [address] [place] [address], [phone], Levi Garcia MD Name Value Range Interpretation Code Description Data Radhika rce(s) Supporting Document(s) Glucose [Mass/volume] in Serum or Plasma 123 mg/dL 65-99 Above high normal [facility] Fasting reference intervalFor someone without known diabetes, a glucose valuebetween 100 and 125 mg/dL is consistent withprediabetes and should be confirmed with afollow-up test. Urea nitrogen [Mass/volume] in Serum or Plasma 26 mg/dL 7-25 Above high normal [facility] Creatinine [Mass/volume] in Serum or Plasma 0.69 mg/dL 0.60 -0.88 Normal (applies to non-numeric results) [facility] For patients >49 years of age, the refer ence limitfor Creatinine is approximately 13% higher for peopleidentified as -Palest[place]. eGFR NON-AFR. NIGERIAN 82 mL/min/1.73m2 > OR = 60 Normal ( applies to non-numeric results) [facility] eGFR 95 mL/min/1.73m2 > OR = 60 Normal (a pplies to non-numeric results) [facility] Urea nitrogen/Creatinine [Mass Ratio] in Serum or Plasma 38 (gerald c) 6-22 Above high normal [facility] Sodium [Moles/volume] in Serum or Plasma 138 mmol/L 135-146 Normal (applies to non-numeric results) [facility] Potassium [Moles/volume] in Serum or Plasma 4.5 mmol/L 3.5- 5.3 Normal (applies to non-numeric results) [facility] Chloride [Moles/volume] in Serum or Plasma 108 mmol/L 98-11 0 Normal (applies to non-numeric results) [facility] Carbon dioxide, total [Moles/volume] in Serum or Plasma 23 mmol/ L 20-32 Normal (applies to non-numeric results) [facility] Calcium [Mass/volume] in Serum or Plasma 8.3 mg/dL 8.6-10.4 Below low normal [facility] ID Date Data Source [id number] 11/26/2020 03:53:00 AM EDT [facility] FASTING: UNKNOWNReceived: 11/25/2020 at 12:06:00 QPT: [facility], [address] [facility], [address] [place] [address], [phone], Levi Garcia MD Received: 11/25/2020 at 12:06:00 QPT : [facility], [address] , [address] [place] [address], [phone], Levi Garcia MD Received: 11/25/2020 at 12:06:00 QPT : [facility], [address] , [address] [place] [address], [phone], Levi Garcia MD Received: 11/25/2020 at 12:06:00 QPT : [facility], [address] , [address] [place] [address], [phone], Levi Garcia MD Name Value Range Interpretation Code Description Data Radhika rce(s) Supporting Document(s) Leukocytes [#/volume] in Blood by Automated count 4.5 Thousand/u L 3.8-10.8 Normal (applies to non-numeric results) [facility] Erythrocytes [#/volume] in Blood by Automated count 1.76 Million /uL 3.80-5.10 Below low normal [facility] Hemoglobin [Mass/volume] in Blood 5.4 g/dL 11.7-15.5 Below lower p anic limits [facility] Verified by repeat analysis. Hematocrit [Volume Fraction] of Blood by Automated count 19.2 % 35.0-45.0 Below low normal [facility] Erythrocyte mean corpuscular volume [Entitic volume] b y Automated count 109.1 fL 80.0-100.0 Above high normal [facility] Erythrocyte mean corpuscular hemoglobin [Entitic mass] by Automated count 30.7 pg 27.0-33.0 Normal (applies to non-numeric results) [facility] Erythrocyte mean corpuscular hemoglobin concentration [Mass/volume] by Automated count 28.1 g/dL 32.0-36.0 Below low normal [facility] Erythrocyte distribution width [Ratio] by Automated count 17.3 % 11.0-15.0 Above high normal [facility] Platelets [#/volume] in Blood by Automated count 355 Thousand/uL 140-400 Normal (applies to non-numeric results) [facility] Platelet mean volume [Entitic volume] in Blood by Tesfaye-Hal 10. 5 fL 7.5-12.5 Normal (applies to non-numeric results) [facility] Neutrophils [#/volume] in Blood by Automated count 3654 cells/uL 4256-3296 Normal (applies to non-numeric results) [facility] Lymphocytes [#/volume] in Blood by Automated count 324 cells/uL 850-3900 Below low normal [facility] Monocytes [#/volume] in Blood by Automated count 495 cells/uL 200-950 Normal (applies to non-numeric results) [facility] Eosinophils [#/volume] in Blood by Automated count 18 cells/uL 15-500 Normal (applies to non-numeric results) [facility] Basophils [#/volume] in Blood by Automated count 9 cells/uL 0-200 Normal (applies to non-numeric results) [facility] Neutrophils/100 leukocytes in Blood by Automated count 81.2 % 38-80 Above high normal [facility] Lymphocytes/100 leukocytes in Blood by Automated count 7.2 % 15-49 Below low normal [facility] Monocytes/100 leukocytes in Blood by Automated count 11.0 % 0-13 Normal (applies to non-numeric results) [facility] Eosinophils/100 leukocytes in Blood by Automated count 0.4 % 0-8 Normal (applies to non-numeric results) [facility] Basophils/100 leukocytes in Blood by Automated count 0.2 % 0-2 Normal (applies to non-numeric results) [facility] Service comment Polychromasia 1 + Basophilic stippling 1 + Anisocyt osis 2 + [facility] ID Date Data Source [id number] 11/26/2020 03:53:00 AM EDT [facility] FASTING: UNKNOWNReceived: 11/25/2020 at 12:06:00 QPT: [facility], [address], [address] [place], [phone], Levi Garcia MD Received: 11/25/2020 at 12:06:00 QPT : [facility], [address], [address] [place], [phone] MD Received: 11/25/2020 at 12:06:00 QPT : [facility], [address], [address] [place] [address], [phone], Levi Garcia MD Received: 11/25/2020 at 12:06:00 QPT : [facility], [address], [address] [place] [address], [phone], Levi Garcia MD Name Value Range Interpretation Code Description Data Radhika rce(s) Supporting Document(s) Natriuretic peptide B [Mass/volume] in Serum or Plasma [facility] TEST NOT PERFORMEDNo suitable specimen r eceived. ID Date Data Source [id number] 11/26/2020 03:53:00 AM EDT [facility] FASTING: UNKNOWNReceived: 11/25/2020 at 12:06:00 QPT: [facility], [address], [address] [place], [phone] MD Received: 11/25/2020 at 12:06:00 QPT : [facility], [address], [address] [place] [address], [phone] MD Received: 11/25/2020 at 12:06:00 QPT : [facility], [address], [address] [place], [phone] MD Received: 11/25/2020 at 12:06:00 QPT : [facility], [address], [address] [facility], [place], [phone], Levi Garcia MD Name Value Range Interpretation Code Description Data Radhika rce(s) Supporting Document(s) Digoxin [Mass/volume] in Serum or Plasma 1.1 mcg/L 0.8-2.0 Normal (applies to non-numeric results) [facility] [place] Anti-Digoxin (Digibind(R)) in serum/ plasma ofpatients under toxicity therapy may interferewith the digoxin immunoassay.NO COLLECTION DATE RECEIVED. WE HAVE USEDTHE DATE THE SPECIMEN WAS RECEIVED BY [facility] THE COLLECTION DATE. IF THISIS INCORRECT, PLEASE CONTACT CLIENT SERVICES.PHONE NUMBER: [phone] ID Date Data Source [id number] 11/25/2020 04:33:00 PM EDT [facility] Name Value Range Interpretation Code Description Data Radhika rce(s) Supporting Document(s) Prothrombin Time 16.4 s 12.5-14.3 [facility] Inr 1.29 [facility] THERAPUTIC HUMAN INR VALUES INDICATIONS NORMAL RANGES PROPHYLAXIS/TREATMENT OF: VENOUS THROMBOSIS 2.0-3.0 PULMONARY EMBOLISM 2.0-3.0 PREVENTION OF SYSTEMIC EMBOLISM FROM: TISSUE HEART VALVES 2.0-3.0 ACUTE MYOCARDIAL INFARCTION 2.0-3.0 VALVULAR HEART DISEASE 2.0-3.0 ATRIAL FIBRILLATION 2.0-3.0 MECHANICAL VALVES(HIGH RISK) 2.5-3.5 RECURRENT MYOCARDIAL INFARCTION 2.5-3.5 Partial Thromboplastin Time 33.4 s 24.2-38.5 [facility] ID Date Data Source [id number] 11/25/2020 04:33:00 PM EDT [facility] Name Value Range Interpretation Code Description Data Radhika rce(s) Supporting Document(s) SARS-CoV-2 (COVID 19) NEGATIVE - SARS-CoV-2 (COVID19) [facility] This lab was ordered by [facility] a nd reported by [facility]. ID Date Data Source [id number] 11/25/2020 04:30:00 PM EDT [facility] Name Value Range Interpretation Code Description Data Radhika rce(s) Supporting Document(s) Blood Type Laboratory test result [facility] AB Screen (Indirect Farooq)Vis Laboratory test result [facility] ID Date Data Source [id number] 11/25/2020 04:30:00 PM EDT [facility] Name Value Range Interpretation Code Description Data [facility] Supporting Document(s) Natriuretic peptide.B prohormone N-Terminal [Mass/volu me] in Serum or Plasma 1795 pg/mL [facility] ID Date Data Source [id number] 11/25/2020 04:30:00 PM EDT [facility] Name Value Range Interpretation Code Description Data [facility](s) Supporting Document(s) CPK Creatine Phosphokinase 60 U/L 26-192 [facility] CK-MB Value Mass 1.3 ng/mL [facility] MB/CK Relative Index 2.17 [facility] <content>DIAGNOSIS CRITERIA</content>
<content>MMB ng/ml Relative Index (RI)</content>
<content>NON-AMI < or = 5 N/A</content>
<content>LEVINE ZONE > 5 < or = 4</content>
<content>AMI > 5 > 4</content>
<content></content> Troponin I Laboratory test result [facility] <content>Troponin I Reference Interval f or Siemens [place] LOCI:</content>
<content></content>
<content>99th Percentile= 0.00-0.045 ng/ml</content>
<content></content>
<content>Risk Stratification:</content>
<content><= 0.10 ng/ml Decreased Risk for Adverse Clinical</content>
<content>Events.</content>
<content>0.10-1.50 ng/ml Increased Risk for Adverse Clinical</content>
<content>Events. Evaluation of additional</content>
<content>criterion and/or repeat testing in 2-6</content>
<content>hours is suggested to rule out myocardial</content>
<content>damage.</content>
<content>>= 1.50 ng/ml Indicative of Myocardial Injury.</content>
<content></content> ID Date Data Source [id number] 11/25/2020 04:30:00 PM EDT [facility] Name Value Range Interpretation Code Description Data Radhika rce(s) Supporting Document(s) Glucose, Fasting 110 mg/dL 70-100 [facility] ([facility] [...] Little GFR Left</content>
<content>ESRD GFR <15 on MATERIALS MANAGEMENT MANAGER</content>
<content></content> Blood Urea Nitrogen 22 mg/dL 7-18 [facility] Creatinine For GFR 0.68 mg/dL 0.55-1.30 [facility] Sodium Level 140 meq/L 136-145 [facility] Potassium Serum 4.7 meq/L 3.5-5.1 [facility] Carbon Dioxide Level 23 meq/L 21-32 [facility] Chloride Level 111 meq/L 98-107 [facility] Anion Gap 6 meq/L 8-16 [facility] Calcium Level 8.1 mg/dL 8.8-10.2 [facility] Ast/Sgot 15 U/L 7-37 [facility] Alt/SGPT 15 U/L 12-78 [facility] Alkaline Phosphatase 90 U/L 45-117 [facility] Bilirubin,Total 0.6 mg/dL 0.2-1.0 [facility] Albumin/Globulin Ratio 1.0 1.2-2.2 [facility] Albumin 3.0 GM/DL 3.2-5.2 [facility] Total Protein 6.0 GM/DL 6.4-8.2 [facility] ID Date Data Source [id number] 11/25/2020 04:30:00 PM EDT [facility] Name Value Range Interpretation Code Description Data Radhika rce(s) Supporting Document(s) Hemoglobin 5.6 g/dL 12.0-15.5 Below lower panic limits [facility] Red Blood Count 1.75 10 4.00-5.40 [facility] White Blood Count 4.4 10 4.0-10.0 [facility] Mean Corpuscular Volume 108.6 fl 80.0-96.0 M [facility] Hematocrit 19.0 % 36.0-47.0 [facility] Mean Corpuscular Hemoglobin 32.0 pg 27.0-33.0 [facility] Red Cell Distribution Width 20.7 % 11.5-14.5 [facility] Mean Corpuscular HGB Conc 29.5 g/dL 32.0-36.5 [facility] Platelet Count, Automated 346 10 150-450 [facility] Nucleated Red Blood Cell % 1.6 % 0-0 [facility] ID Date Data Source [id number] 11/25/2020 08:56:46 PM EDT [facility] Name Value Range Interpretation Code Description Data Radhika rce(s) Supporting Document(s) DIGOXIN 1.2 ng/mL (0.8-2.0) [facility] ID Date Data Source [id number] 11/07/2020 02:18:00 PM EDT [facility] Name Value Range Interpretation Code Description Data Radhika rce(s) Supporting Document(s) Ferritin [Mass/volume] in Serum or Plasma 207 ng/mL 8-252 [facility] ID Date Data Source [id number] 11/07/2020 02:18:00 PM EDT [facility] Name Value Range Interpretation Code Description Data Radhika rce(s) Supporting Document(s) Iron (Fe) 43 ug/dL 50-170 [facility] Total Iron Binding Capacity 302 ug/dL 250-450 [facility] Percent Saturation 14.2 % 13.2-45.0 [facility] ID Date Data Source [id number] 11/07/2020 02:18:00 PM EDT [facility] Name Value Range Interpretation Code Description Data Radhika rce(s) Supporting Document(s) Glucose, Fasting 142 mg/dL 70-100 [facility] Blood Urea Nitrogen 17 mg/dL 7-18 [facility] [...] Little GFR Left</content>
<content>ESRD GFR <15 on MATERIALS MANAGEMENT MANAGER</content>
<content></content> Creatinine For GFR 0.72 mg/dL 0.55-1.30 [facility] Sodium Level 140 meq/L 136-145 [facility] Potassium Serum 4.2 meq/L 3.5-5.1 [facility] Chloride Level 106 meq/L 98-107 [facility] Carbon Dioxide Level 29 meq/L 21-32 [facility] Anion Gap 5 meq/L 8-16 [facility] Calcium Level 9.2 mg/dL 8.8-10.2 [facility] Ast/Sgot 10 U/L 7-37 [facility] Alt/SGPT 15 U/L 12-78 [facility] Alkaline Phosphatase 107 U/L 45-117 [facility] Bilirubin,Total 0.7 mg/dL 0.2-1.0 [facility] Total Protein 7.0 GM/DL 6.4-8.2 [facility] Albumin/Globulin Ratio 0.9 1.2-2.2 [facility] Albumin 3.3 GM/DL 3.2-5.2 [facility] ID Date Data Source [id number] 11/07/2020 02:18:00 PM EDT [facility] Name Value Range Interpretation Code Description Data Radhika rce(s) Supporting Document(s) White Blood Count 3.2 10 4.0-10.0 [facility] Hematocrit 29.6 % 36.0-47.0 [facility] Hemoglobin 9.1 g/dL 12.0-15.5 [facility] Red Blood Count 3.04 10 4.00-5.40 [facility] Mean Corpuscular Volume 97.4 fl 80.0-96.0 M [facility] Mean Corpuscular Hemoglobin 29.9 pg 27.0-33.0 [facility] Mean Corpuscular HGB Conc 30.7 g/dL 32.0-36.5 [facility] Red Cell Distribution Width 16.1 % 11.5-14.5 [facility] Neutrophils % 74.4 % 36.0-66.0 [facility] Platelet Count, Automated 258 10 150-450 [facility] Lymph % 10.5 % 24.0-44.0 [facility] Mcleod % 13.3 % 2.0-8.0 [facility] Eos % 0.9 % 0.0-3.0 [facility] Baso % 0.6 % 0.0-1.0 [facility] Immature Granulocyte % 0.3 % 0-3.0 [facility] Nucleated Red Blood Cell % 0.0 % 0-0 [facility] Neutrophils # 2.4 10 1.5-8.5 [facility] Eos # 0.0 10 0.0-0.5 [facility] Mcleod # 0.4 10 0.0-0.8 [facility] Lymph # 0.3 10 1.5-5.0 [facility] Baso # 0.0 10 0.0-0.2 [facility] ID Date Data Source [id number] 10/21/2020 02:17:00 PM EDT [facility] Name Value Range Interpretation Code Description Data Radhika rce(s) Supporting Document(s) White Blood Count 3.2 10 4.0-10.0 [facility] Hemoglobin 9.4 g/dL 12.0-15.5 [facility] Red Blood Count 3.09 10 4.00-5.40 [facility] Mean Corpuscular Volume 99.4 fl 80.0-96.0 M [facility] Hematocrit 30.7 % 36.0-47.0 [facility] Mean Corpuscular Hemoglobin 30.4 pg 27.0-33.0 [facility] Platelet Count, Automated 263 10 150-450 [facility] Red Cell Distribution Width 17.7 % 11.5-14.5 [facility] Mean Corpuscular HGB Conc 30.6 g/dL 32.0-36.5 [facility] Neutrophils % 71.3 % 36.0-66.0 [facility] Lymph % 12.3 % 24.0-44.0 [facility] Mcleod % 13.0 % 2.0-8.0 [facility] Eos % 2.2 % 0.0-3.0 [facility] Baso % 0.6 % 0.0-1.0 [facility] Immature Granulocyte % 0.6 % 0-3.0 [facility] Neutrophils # 2.3 10 1.5-8.5 [facility] Nucleated Red Blood Cell % 0.0 % 0-0 [facility] Eos # 0.1 10 0.0-0.5 [facility] Lymph # 0.4 10 1.5-5.0 [facility] Mcleod # 0.4 10 0.0-0.8 [facility] Baso # 0.0 10 0.0-0.2 [facility] ID Date Data Source [id number] 10/19/2020 10:05:00 AM EDT [facility] Name Value Range Interpretation Code Description Data Radhika rce(s) Supporting Document(s) SARS-CoV-2 (COVID-19) RNA [Presence] in Respiratory specimen by KELLI with probe detection Not Detected [facility] This lab was ordered by [facility] and reported by [facility]. ID Date Data Source [id number] 10/11/2020 02:25:00 PM EDT [facility] Name Value Range Interpretation Code Description Data Radhika rce(s) Supporting Document(s) Hemoglobin 9.2 g/dL 12.0-15.5 [facility] Red Blood Count 3.05 10 4.00-5.40 [facility] White Blood Count 3.5 10 4.0-10.0 [facility] Mean Corpuscular Volume 98.7 fl 80.0-96.0 M [facility] Hematocrit 30.1 % 36.0-47.0 [facility] Red Cell Distribution Width 18.6 % 11.5-14.5 [facility] Mean Corpuscular Hemoglobin 30.2 pg 27.0-33.0 [facility] Mean Corpuscular HGB Conc 30.6 g/dL 32.0-36.5 [facility] Platelet Count, Automated 269 10 150-450 [facility] Lymph % 11.9 % 24.0-44.0 [facility] Neutrophils % 69.8 % 36.0-66.0 [facility] Mcleod % 14.5 % 2.0-8.0 [facility] Eos % 2.6 % 0.0-3.0 [facility] Immature Granulocyte % 0.3 % 0-3.0 [facility] Baso % 0.9 % 0.0-1.0 [facility] Neutrophils # 2.4 10 1.5-8.5 [facility] Lymph # 0.4 10 1.5-5.0 [facility] Nucleated Red Blood Cell % 0.0 % 0-0 [facility] Mcleod # 0.5 10 0.0-0.8 [facility] Baso # 0.0 10 0.0-0.2 [facility] Eos # 0.1 10 0.0-0.5 [facility] ID Date Data Source [id number] 09/26/2020 02:59:00 PM EDT [facility] Name Value Range Interpretation Code Description Data Radhika rce(s) Supporting Document(s) Carcinoembryonic Ag [Mass/volume] in Serum or Plasma 0.6 ng/mL [facility] THE CEA ASSAY IS PERFORMED ON THE [employer] BY CHEMILUMINESCENCE AND SHOULD NOT BE COMPARED INTERCHANGEABLY WITH OTHER METHODS. IT SHOULD NOT BE USED ALONE A SCREENING TEST OR DIAGNOSIS FOR THE PRESENCE OR ABSENCE OF MALIGNANT DISEASE. PREDICTIONS OF DISEASE RECURRENCE SHOULD NOT BE BASED SOLELY ON VALUES OBTAINED FROM SERIAL PATIENT SERUM VALUES. Ferritin [Mass/volume] in Serum or Plasma 564 ng/mL 8-252 [facility] ID Date Data Source [id number] 09/26/2020 02:59:00 PM EDT [facility] Name Value Range Interpretation Code Description Data Radhika rce(s) Supporting Document(s) Iron (Fe) 56 ug/dL 50-170 [facility] Total Iron Binding Capacity 327 ug/dL 250-450 [facility] Percent Saturation 17.1 % 13.2-45.0 [facility] ID Date Data Source [id number] 09/26/2020 02:59:00 PM EDT [facility] Name Value Range Interpretation Code Description Data Radhika rce(s) Supporting Document(s) Glucose, Fasting 114 mg/dL 70-100 [facility] Blood Urea Nitrogen 18 mg/dL 7-18 [facility] Creatinine For GFR 0.74 mg/dL 0.55-1.30 [facility] Sodium Level 139 meq/L 136-145 [facility] Glomerular Filtration Rate Laboratory test result [facility] <content>Units are mL/min/1.73 m2</content>
<content></content>
<content>Chronic Kidney Disease Staging per NKF:</content>
<content></content>
<content>Stage I & II GFR >=60 Normal to Mildly Decreased</content>
<content>Stage III GFR 30- 59 Moderately Decreased</content>
<content>Stage IV GFR 15-29 Severely Decreased</content>
<content>Stage V GFR <15 Very Little GFR Left</content>
<content>ESRD GFR <15 on MATERIALS MANAGEMENT MANAGER</content>
<content></content> Potassium Serum 4.2 meq/L 3.5-5.1 [facility] Chloride Level 106 meq/L 98-107 [facility] Carbon Dioxide Level 30 meq/L 21-32 [facility] Calcium Level 9.3 mg/dL 8.8-10.2 [facility] Anion Gap 3 meq/L 8-16 [facility] Ast/Sgot 9 U/L 7-37 [facility] Alt/SGPT 16 U/L 12-78 [facility] Alkaline Phosphatase 122 U/L 45-117 [facility] Bilirubin,Total 0.7 mg/dL 0.2-1.0 [facility] Total Protein 6.8 GM/DL 6.4-8.2 [facility] Albumin 3.6 GM/DL 3.2-5.2 [facility] Albumin/Globulin Ratio 1.1 1.2-2.2 [facility] ID Date Data Source [id number] 09/26/2020 02:59:00 PM EDT [facility] Name Value Range Interpretation Code Description Data Radhika e(s) Supporting Document(s) White Blood Count 3.4 10 4.0-10.0 [facility] Red Blood Count 3.00 10 4.00-5.40 [facility] Hematocrit 29.6 % 36.0-47.0 [facility] Hemoglobin 9.1 g/dL 12.0-15.5 [facility] Mean Corpuscular Hemoglobin 30.3 pg 27.0-33.0 [facility] Mean Corpuscular Volume 98.7 fl 80.0-96.0 M [facility] Red Cell Distribution Width 20.3 % 11.5-14.5 [facility] Mean Corpuscular HGB Conc 30.7 g/dL 32.0-36.5 [facility] Neutrophils % 73.2 % 36.0-66.0 [facility] Platelet Count, Automated 293 10 150-450 [facility] Lymph % 10.8 % 24.0-44.0 [facility] Mcleod % 12.8 % 2.0-8.0 [facility] Eos % 2.3 % 0.0-3.0 [facility] Immature Granulocyte % 0.3 % 0-3.0 [facility] Baso % 0.6 % 0.0-1.0 [facility] Neutrophils # 2.5 10 1.5-8.5 [facility] Nucleated Red Blood Cell % 0.0 % 0-0 [facility] ([facility] Lymph # 0.4 10 1.5-5.0 [facility] Eos # 0.1 10 0.0-0.5 [facility] Mcleod # 0.4 10 0.0-0.8 [facility] Baso # 0.0 10 0.0-0.2 [facility] ID Date Data Source [id number] 09/06/2020 12:06:00 PM EST [facility] Name Value Range Interpretation Code Description Data Radhika rce(s) Supporting Document(s) SARS coronavirus 2 RNA [Presence] in Res piratory specimen by KELLI with probe detection NEGATIVE [facility] This lab was ordered by [facility] a nd reported by [facility]. ID Date Data Source [id number] 08/17/2020 11:54:00 AM EST [facility] ([facility] Name Value Range Interpretation Code Description Data Radhika rce(s) Supporting Document(s) Occult Blood Laboratory test result Abnormal (applies to non-numeric results) [facility] OCCULT BLOOD 1 POSITIVE ID Date Data Source [id number] 08/17/2020 11:07:00 AM EST [facility] ([facility] Name Value Range Interpretation Code Description Data Radhika rce(s) Supporting Document(s) Ferritin [Mass/volume] in Serum or Plasma 36 ng/mL 8-252 [facility] Carcinoembryonic Ag [Mass/volume] in Serum or Plasma Laboratory melly t result [facility] THE CEA ASSAY IS PERFORMED ON THE [employer] BY CHEMILUMINESCENCE AND SHOULD NOT BE COMPARED INTERCHANGEABLY WITH OTHER METHODS. IT SHOULD NOT BE USED ALONE A SCREENING TEST OR DIAGNOSIS FOR THE PRESENCE OR ABSENCE OF MALIGNANT DISEASE. PREDICTIONS OF DISEASE RECURRENCE SHOULD NOT BE BASED SOLELY ON VALUES OBTAINED FROM SERIAL PATIENT SERUM VALUES. ID Date Data Source [id number] 08/17/2020 11:07:00 AM EST [facility] ([facility] Name Value Range Interpretation Code Description Data Radhika rce(s) Supporting Document(s) Iron (Fe) 29 ug/dL 50-170 [facility] Total Iron Binding Capacity 360 ug/dL 250-450 [facility] Percent Saturation 8.1 % 13.2-45.0 [facility] ([facility] ID Date Data Source [id number] 08/17/2020 11:07:00 AM EST [facility] Name Value Range Interpretation Code Description Data Radhika rce(s) Supporting Document(s) Blood Urea Nitrogen 16 mg/dL 7-18 [facility] ([facility] Glucose, Fasting 108 mg/dL 70-100 [facility] ([facility] Creatinine For GFR 0.83 mg/dL 0.55-1.30 [facility] ([facility] [...] Little GFR Left</content>
<content>ESRD GFR <15 on MATERIALS MANAGEMENT MANAGER</content>
<content></content> Potassium Serum 4.2 meq/L 3.5-5.1 [facility] ([facility] Sodium Level 141 meq/L 136-145 [facility] ([facility] Carbon Dioxide Level 30 meq/L 21-32 [facility] ([facility] Chloride Level 107 meq/L 98-107 [facility] ([facility] Anion Gap 4 meq/L 8-16 [facility] ([facility] Calcium Level 9.4 mg/dL 8.8-10.2 [facility] ([facility] Ast/Sgot 7 U/L 7-37 [facility] Alt/SGPT 12 U/L 12-78 [facility] ([facility] Alkaline Phosphatase 105 U/L 45-117 [facility] ([facility] Total Protein 6.6 GM/DL 6.4-8.2 [facility] ([facility] Bilirubin,Total 1.0 mg/dL 0.2-1.0 [facility] ([facility] Albumin/Globulin Ratio 1.1 1.2-2.2 [facility] ([facility] Albumin 3.5 GM/DL 3.2-5.2 [facility] ([facility] ID Date Data Source [id number] 08/17/2020 11:07:00 AM EST [facility] ([facility] Name Value Range Interpretation Code Description Data Radhika e(s) Supporting Document(s) White Blood Count 3.8 10 4.0-10.0 [facility] ([facility] Hemoglobin 8.5 g/dL 12.0-15.5 [facility] ([facility] Red Blood Count 3.03 10 4.00-5.40 [facility] ([facility] Mean Corpuscular Volume 93.4 fl 80.0-96.0 M [facility] ([facility] Hematocrit 28.3 % 36.0-47.0 [facility] ([facility] Mean Corpuscular Hemoglobin 28.1 pg 27.0-33.0 [facility] ([facility] Mean Corpuscular HGB Conc 30.0 g/dL 32.0-36.5 [facility] ([facility] Red Cell Distribution Width 16.0 % 11.5-14.5 [facility] ([facility] Neutrophils % 77.0 % 36.0-66.0 [facility] ([facility] Platelet Count, Automated 361 10 150-450 [facility] ([facility] Lymph % 9.5 % 24.0-44.0 [facility] ([facility] Mcleod % 11.4 % 0.0-5.0 [facility] Eos % 1.3 % 0.0-3.0 [facility] Immature Granulocyte % 0.3 % 0-3.0 [facility] ([facility] Baso % 0.5 % 0.0-1.0 [facility] Nucleated Red Blood Cell % 0.0 % 0-0 [facility] ([facility] Neutrophils # 2.9 10 1.5-8.5 [facility] ([facility] Lymph # 0.4 10 1.5-5.0 [facility] ([facility] Mcleod # 0.4 10 0.0-0.8 [facility] Eos # 0.1 10 0.0-0.5 [facility] Baso # 0.0 10 0.0-0.2 [facility] ID Date Data Source [id number] 06/22/2020 01:19:00 PM EST [facility] ([facility] Name Value Range Interpretation Code Description Data Radhika rce(s) Supporting Document(s) Ferritin [Mass/volume] in Serum or Plasma 104 ng/mL 8-252 [facility] ([facility] Carcinoembryonic Ag [Mass/volume] in Serum or Plasma 0.6 ng/mL [facility] ([facility] THE CEA ASSAY IS PERFORMED ON THE [employer] BY CHEMILUMINESCENCE AND SHOULD NOT BE COMPARED INTERCHANGEABLY WITH OTHER METHODS. IT SHOULD NOT BE USED ALONE A SCREENING TEST OR DIAGNOSIS FOR THE PRESENCE OR ABSENCE OF MALIGNANT DISEASE. PREDICTIONS OF DISEASE RECURRENCE SHOULD NOT BE BASED SOLELY ON VALUES OBTAINED FROM SERIAL PATIENT SERUM VALUES. ID Date Data Source [id number] 06/22/2020 01:19:00 PM EST [facility] ([facility] Name Value Range Interpretation Code Description Data Radhika e(s) Supporting Document(s) Iron (Fe) 39 ug/dL 50-170 [facility] ([facility] Percent Saturation 11.8 % 13.2-45.0 [facility] ([facility] Total Iron Binding Capacity 331 ug/dL 250-450 [facility] ID Date Data Source [id number] 06/22/2020 01:19:00 PM EST [facility] ([facility] Name Value Range Interpretation Code Description Data [facility](s) Supporting Document(s) Glucose, Fasting 110 mg/dL 70-100 [facility] ([facility] Blood Urea Nitrogen 23 mg/dL 7-18 [facility] ([facility] Creatinine For GFR 0.71 mg/dL 0.55-1.30 [facility] ([facility] [...] Little GFR Left</content>
<content>ESRD GFR <15 on MATERIALS MANAGEMENT MANAGER</content>
<content></content> Sodium Level 141 meq/L 136-145 [facility] ([facility] Potassium Serum 4.2 meq/L 3.5-5.1 [facility] ([facility] Chloride Level 109 meq/L 98-107 [facility] Carbon Dioxide Level 28 meq/L 21-32 [facility] ([facility] Anion Gap 4 meq/L 8-16 [facility] Ast/Sgot 7 U/L 7-37 [facility] ([facility] Calcium Level 9.1 mg/dL 8.8-10.2 [facility] ([facility] Alkaline Phosphatase 104 U/L 45-117 [facility] ([facility] Alt/SGPT 15 U/L 12-78 [facility] ([facility] Total Protein 7.0 GM/DL 6.4-8.2 [facility] ([facility] Bilirubin,Total 0.9 mg/dL 0.2-1.0 [facility] ([facility] Albumin 3.5 GM/DL 3.2-5.2 [facility] ([facility] Albumin/Globulin Ratio 1.0 1.2-2.2 [facility] ([facility] ID Date Data Source [id number] 06/22/2020 01:19:00 PM EST [facility] ([facility] Name Value Range Interpretation Code Description Data Radhika rce(s) Supporting Document(s) White Blood Count 5.2 10 4.0-10.0 [facility] ([facility] Hemoglobin 10.0 g/dL 12.0-15.5 [facility] ([facility] Red Blood Count 3.39 10 4.00-5.40 [facility] ([facility] Mean Corpuscular Volume 94.4 fl 80.0-96.0 M [facility] ([facility] Hematocrit 32.0 % 36.0-47.0 [facility] ([facility] Red Cell Distribution Width 15.4 % 11.5-14.5 [facility] ([facility] Mean Corpuscular HGB Conc 31.3 g/dL 32.0-36.5 [facility] ([facility] Mean Corpuscular Hemoglobin 29.5 pg 27.0-33.0 [facility] ([facility] Platelet Count, Automated 299 10 150-450 [facility] ([facility] Neutrophils % 77.3 % 36.0-66.0 [facility] ([facility] Mcleod % 10.7 % 0.0-5.0 [facility] ([facility] Lymph % 9.5 % 24.0-44.0 [facility] ([facility] Eos % 1.7 % 0.0-3.0 [facility] ([facility] Baso % 0.4 % 0.0-1.0 [facility] ([facility] Nucleated Red Blood Cell % 0.0 % 0-0 [facility] ([facility] Immature Granulocyte % 0.4 % 0-3.0 [facility] ([facility] Neutrophils # 4.1 10 1.5-8.5 [facility] ([facility] Lymph # 0.5 10 1.5-5.0 [facility] ([facility] Mcleod # 0.6 10 0.0-0.8 [facility] ([facility] Eos # 0.1 10 0.0-0.5 [facility] ([facility] Baso # 0.0 10 0.0-0.2 [facility] ([facility] ID Date Data Source [id number] 06/13/2020 09:16:00 AM EST [facility] (Anitha Gamez [...] to the patient, ID Date Data Source [id number] 06/13/2020 09:16:00 AM EST [facility] (Anitha Gamez [...] to the patient, ID Date Data Source [id number] 06/14/2020 06:06:00 AM EST [facility] Name Value [...] 0.0-0.1 [facility] ID Date Data Source [id number] 06/14/2020 08:07:00 AM EST [facility] Name Value [...] mg/dL 8.7-10.3 [facility] ID Date Data Source [id number] 04/14/2020 12:00:00 AM EDT [facility] [place]use Patient Name: PANCHITO [id number] [facility] 1940[facility] [place] [address] Date of Exam: 04/14/2020#: Fax: [phone] EXAM: [...] the right thigh asdescribed above.Accredited by the [employer] in Vascular PeripheralUltrasound.DENYS Elias/Bhavana you for referring MERON RICO to our office. Electronically Signed - ESTHER KAUR DO 04/14/20 17:03 Name Value Range Interpretation Code Description Data Radhika rce(s) Supporting Document(s) Procedure Social History Code Duration Value Status Description Data Source(s ) Alcohol intake 04/17/2021 12:00:00 AM EDT Lifetime non-drinker (finding) completed Lifetime non-drinker (finding) [facility] Smoking 03/28/2021 12:00:00 AM EDT Never Smoked A Pipe complet ed Never Smoked A Pipe [facility] ([facility] Alcohol intake 02/28/2021 12:00:00 AM EDT Lifetime non-drinker (finding) completed Lifetime non-drinker (finding) [facility] Alcohol intake 01/24/2021 12:00:00 AM EDT Lifetime non-drinker (finding) completed Lifetime non-drinker (finding) [facility] Alcohol intake 12/20/2020 12:00:00 AM EDT Lifetime non-drinker (finding) completed Lifetime non-drinker (finding) [facility] Alcohol intake 12/04/2020 12:00:00 AM EDT Lifetime non-drinker (finding) completed Lifetime non-drinker (finding) [facility] Alcohol intake 06/23/2020 12:00:00 AM EST Lifetime non-drinker (finding) completed Lifetime non-drinker (finding) [facility] Smoking 06/23/2020 12:00:00 AM EST Never smoker completed Never s moker [facility] Vital Signs ID Date Data Source [id number] Name Value Range Interpretation Code Description Data Source(s) Systolic blood pressure 108 mm[Hg] 108 mm[Hg] [facility] Diastolic blood pressure 60 mm[Hg] 60 mm[Hg] [facility] Heart rate 113 /min 113 /min [facility] Body height 154.9 cm 154.9 cm [facility] Body weight 54.432 kg 54.432 kg [facility] Body mass index (BMI) [Ratio] 22.67 kg/m2 22.67 kg/m2 [facility] Oxygen saturation in Arterial blood by Pulse oximetry 98 % 98 % [facility] Body temperature 98.0 [degF] 98.0 [degF] [facility] Diastolic blood pressure 83 mm[Hg] 83 mm[Hg] [facility] Body weight 114.38 [lb_av] 114.38 [lb_av] [facility] ([facility] Oxygen saturation in Arterial blood by Pulse oximetry 100 % 100 % [facility] Systolic blood pressure 113 mm[Hg] 113 mm[Hg] [facility] ([facility] Heart rate 127 /min 127 /min [facility] Respiratory rate 18 /min 18 /min [facility] ( [facility] Body height 61.5 [in_i] 61.5 [in_i] [facility] ([facility] 5'1.50" [place] body weight 105 [lb_av] 105 [lb_av] [facility] ([facility] Body mass index (BMI) [Ratio] 21.3 kg/m2 21.3 k g/m2 [facility] ([facility] Respiratory rate 16 /min 16 /min [facility] ( [facility] Systolic blood pressure 110 mm[Hg] 110 mm[Hg] [facility] ([facility] Body temperature 98.7 [degF] 98.7 [degF] [facility] ([facility] Body weight 116.38 [lb_av] 116.38 [lb_av] [facility] ([facility] Oxygen saturation in Arterial blood by Pulse oximetry 99 % 99 % [facility] ([facility] Diastolic blood pressure 62 mm[Hg] 62 mm[Hg] [facility] ([facility] Body height 61.5 [in_i] 61.5 [in_i] [facility] ([facility] 5'1.50" [place] body weight 105 [lb_av] 105 [lb_av] [facility] ([facility] Body mass index (BMI) [Ratio] 21.6 kg/m2 21.6 k g/m2 [facility] ([facility] Heart rate 64 /min 64 /min [facility] ([facility] Systolic blood pressure 122 mm[Hg] 122 mm[Hg] [facility] Diastolic blood pressure 74 mm[Hg] 74 mm[Hg] [facility] Heart rate 78 /min 78 /min [facility] Body height 154.9 cm 154.9 cm [facility] Body weight 52.617 kg 52.617 kg [facility] Body mass index (BMI) [Ratio] 21.92 kg/m2 21.92 kg/m2 [facility] Oxygen saturation in Arterial blood by Pulse oximetry 98 % 98 % [facility] Body weight 52.618 kg 52.618 kg [facility] Body surface area Derived from formula 1.50 m2 1.50 m2 [facility] ([facility], ) Systolic blood pressure 112 mm[Hg] 112 mm[Hg] [facility] ([facility]) Diastolic blood pressure 58 mm[Hg] 58 mm[Hg] [facility] Body height 61 [in_i] 61 [in_i] [facility] 5'1" Body weight 116.00 [lb_av] 116.00 [lb_av] [facility] ([facility]) Body mass index (BMI) [Ratio] 21.9 kg/m2 21.9 k g/m2 [facility] ([facility], ) [place] body weight 105 [lb_av] 105 [lb_av] [facility] ([facility], ) Systolic blood pressure 108 mm[Hg] 108 mm[Hg] [facility] Body weight 52.617 kg 52.617 kg [facility] Body mass index (BMI) [Ratio] 21.92 kg/m2 21.92 kg/m2 [facility] Diastolic blood pressure 72 mm[Hg] 72 mm[Hg] [facility] Oxygen saturation in Arterial blood by Pulse oximetry 98 % 98 % [facility] Heart rate 77 /min 77 /min [facility] Body height 154.9 cm 154.9 cm [facility] Body height 61.5 [in_i] 61.5 [in_i] [facility] ([facility] 5'1.50" Body temperature 97.5 [degF] 97.5 [degF] [facility] ([facility] Diastolic blood pressure 75 mm[Hg] 75 mm[Hg] [facility] ([facility] Oxygen saturation in Arterial blood by Pulse oximetry 98 % 98 % [facility] ([facility] Systolic blood pressure 129 mm[Hg] 129 mm[Hg] [facility] ([facility] Heart rate 72 /min 72 /min [facility] ([facility] Respiratory rate 16 /min 16 /min [facility] ( [facility] Body weight 111.12 [lb_av] 111.12 [lb_av] [facility] ([facility] [place] body weight 105 [lb_av] 105 [lb_av] [facility] ([facility] Body mass index (BMI) [Ratio] 20.7 kg/m2 20.7 k g/m2 [facility] ([facility] Body height 154.9 cm 154.9 cm [facility] Systolic blood pressure 134 mm[Hg] 134 mm[Hg] [facility] Diastolic blood pressure 76 mm[Hg] 76 mm[Hg] [facility] Heart rate 76 /min 76 /min [facility] Body weight 50.349 kg 50.349 kg [facility] Respiratory rate 17 /min 17 /min [facility] Body mass index (BMI) [Ratio] 20.97 kg/m2 20.97 kg/m2 [facility] Oxygen saturation in Arterial blood by Pulse oximetry 98 % 98 % [facility] Body height 61 [in_i] 61 [in_i] [facility] ([facility], ) 5'1" Body weight 106.00 [lb_av] 106.00 [lb_av] [facility] ([facility]) Body mass index (BMI) [Ratio] 20.0 kg/m2 20.0 k g/m2 [facility] ([facility]) [place] body weight 105 [lb_av] 105 [lb_av] [facility] ([facility]) Body weight 48.082 kg 48.082 kg [facility] ([facility]) Body surface area Derived from formula 1.44 m2 1.44 m2 [facility] ([facility]) Diastolic blood pressure 76 mm[Hg] 76 mm[Hg] [facility] ([facility]) Body height 61 [in_i] 61 [in_i] [facility] ([facility]) 5'1" Body weight 106.00 [lb_av] 106.00 [lb_av] [facility] ([facility]) Body mass index (BMI) [Ratio] 20.0 kg/m2 20.0 k g/m2 [facility] ([facility]) [place] body weight 105 [lb_av] 105 [lb_av] [facility] ([facility]) Body weight 48.082 kg 48.082 kg [facility] ([facility], ) Body surface area Derived from formula 1.44 m2 1.44 m2 [facility], [facility] Systolic blood pressure 128 mm[Hg] 128 mm[Hg] M [facility] ([facility]) Respiratory rate 18 /min 18 /min [facility] ( [facility] Heart rate 68 /min 68 /min [facility] ([facility] Body height 61.5 [in_i] 61.5 [in_i] [facility] ([facility] 5'1.50" Systolic blood pressure 136 mm[Hg] 136 mm[Hg] [facility] ([facility] Diastolic blood pressure 72 mm[Hg] 72 mm[Hg] [facility] Body temperature 97.3 [degF] 97.3 [degF] [facility] Body weight 105.38 [lb_av] 105.38 [lb_av] [facility] ([facility] Oxygen saturation in Arterial blood by Pulse oximetry 99 % 99 % [facility] ([facility] [place] body weight 105 [lb_av] 105 [lb_av] [facility] ([facility] Body mass index (BMI) [Ratio] 19.6 kg/m2 19.6 k g/m2 [facility] ([facility] Systolic blood pressure 124 mm[Hg] 124 mm[Hg] [facility] Diastolic blood pressure 58 mm[Hg] 58 mm[Hg] [facility] Heart rate 64 /min 64 /min [facility] Body height 154.9 cm 154.9 cm [facility] Body weight 49.442 kg 49.442 kg [facility] Body mass index (BMI) [Ratio] 20.60 kg/m2 20.60 kg/m2 [facility] Oxygen saturation in Arterial blood by Pulse oximetry 99 % 99 % [facility] Body height 61.5 [in_i] 61.5 [in_i] [facility] ([facility] 5'1.50" Systolic blood pressure 137 mm[Hg] 137 mm[Hg] [facility] ([facility] Diastolic blood pressure 68 mm[Hg] 68 mm[Hg] [facility] Heart rate 72 /min 72 /min [facility] ([facility] Body temperature 97.0 [degF] 97.0 [degF] [facility] ([facility] Respiratory rate 18 /min 18 /min [facility] ( [facility] Body weight 108.38 [lb_av] 108.38 [lb_av] [facility] ([facility] Oxygen saturation in Arterial blood by Pulse oximetry 98 % 98 % [facility] ([facility] [place] body weight 105 [lb_av] 105 [lb_av] [facility] ([facility] Body mass index (BMI) [Ratio] 20.1 kg/m2 20.1 k g/m2 [facility] ([facility] Body mass index (BMI) [Ratio] 18.7 kg/m2 18.7 k g/m2 [facility] ([facility] Diastolic blood pressure 68 mm[Hg] 68 mm[Hg] [facility] ([facility] Respiratory rate 17 /min 17 /min [facility] ( [facility] Oxygen saturation in Arterial blood by Pulse oximetry 98 % 98 % [facility] ([facility] [place] body weight 105 [lb_av] 105 [lb_av] [facility] ([facility] Systolic blood pressure 110 mm[Hg] 110 mm[Hg] [facility] ([facility] Heart rate 90 /min 90 /min [facility] ([facility] Body temperature 96.9 [degF] 96.9 [degF] [facility] ([facility] Body height 61.5 [in_i] 61.5 [in_i] [facility] ([facility] 5'1.50" Body weight 100.38 [lb_av] 100.38 [lb_av] [facility] ([facility] Systolic blood pressure 122 mm[Hg] 122 mm[Hg] [facility] Diastolic blood pressure 76 mm[Hg] 76 mm[Hg] [facility] Heart rate 86 /min 86 /min [facility] Body height 154.9 cm 154.9 cm [facility] Body weight 46.72 kg 46.72 kg [facility] Body mass index (BMI) [Ratio] 19.46 kg/m2 19.46 kg/m2 [facility] Oxygen saturation in Arterial blood by Pulse oximetry 97 % 97 % [facility] Systolic blood pressure 150 mm[Hg] 150 mm[Hg] [facility] Diastolic blood pressure 90 mm[Hg] 90 mm[Hg] [facility] Heart rate 73 /min 73 /min [facility] Body height 154.9 cm 154.9 cm [facility] Body weight 52.164 kg 52.164 kg [facility] Body mass index (BMI) [Ratio] 21.73 kg/m2 21.73 kg/m2 [facility] Oxygen saturation in Arterial blood by Pulse oximetry 96 % 96 % [facility] Systolic blood pressure 154 mm[Hg] 154 mm[Hg] [facility] ([facility]) Diastolic blood pressure 78 mm[Hg] 78 mm[Hg] [facility] ([facility]) Body height 61.5 [in_i] 61.5 [in_i] [facility] ([facility]) 5'1.50" Body weight 114.00 [lb_av] 114.00 [lb_av] [facility] ([facility]) Body mass index (BMI) [Ratio] 21.2 kg/m2 21.2 k g/m2 [facility] ([facility]) [place] body weight 105 [lb_av] 105 [lb_av] [facility] ([facility]) Body weight 51.710 kg 51.710 kg [facility] ([facility]) Body surface area Derived from formula 1.50 m2 1.50 m2 [facility] ([facility]) [place] body weight 105 [lb_av] 105 [lb_av] [facility] ([facility] Systolic blood pressure 166 mm[Hg] 166 mm[Hg] [facility] ([facility] Body mass index (BMI) [Ratio] 20.7 kg/m2 20.7 k g/m2 [facility] ([facility] Diastolic blood pressure 87 mm[Hg] 87 mm[Hg] [facility] ([facility] Body height 61.5 [in_i] 61.5 [in_i] [facility] ([facility] 5'1.50" Body weight 111.38 [lb_av] 111.38 [lb_av] [facility] ([facility] Oxygen saturation in Arterial blood by Pulse oximetry 100 % 100 % [facility] ([facility] Body temperature 97.0 [degF] 97.0 [degF] [facility] ([facility] Heart rate 67 /min 67 /min [facility] ([facility] Respiratory rate 16 /min 16 /min [facility] ( [facility] Systolic blood pressure 130 mm[Hg] 130 mm[Hg] [facility] Diastolic blood pressure 70 mm[Hg] 70 mm[Hg] [facility] Heart rate 68 /min 68 /min [facility] Body height 154.9 cm 154.9 cm [facility] Body weight 53.524 kg 53.524 kg [facility] Body mass index (BMI) [Ratio] 22.30 kg/m2 22.30 kg/m2 [facility] Oxygen saturation in Arterial blood by Pulse oximetry 98 % 98 % [facility] Body temperature 96.5 [degF] 96.5 [degF] [facility] ([facility] Diastolic blood pressure 78 mm[Hg] 78 mm[Hg] [facility] ([facility] Oxygen saturation in Arterial blood by Pulse oximetry 97 % 97 % [facility] ([facility] Respiratory rate 12 /min 12 /min [facility] ( [facility] Body mass index (BMI) [Ratio] 22.0 kg/m2 22.0 k g/m2 [facility] ([facility] [place] body weight 105 [lb_av] 105 [lb_av] [facility] ([facility] Systolic blood pressure 138 mm[Hg] 138 mm[Hg] [facility] ([facility] Systolic blood pressure 151 mm[Hg] 151 mm[Hg] [facility] ([facility] Diastolic blood pressure 79 mm[Hg] 79 mm[Hg] [facility] ([facility] Heart rate 71 /min 71 /min [facility] ([facility] Body height 61.5 [in_i] 61.5 [in_i] [facility] ([facility] 5'1.50" Body weight 118.50 [lb_av] 118.50 [lb_av] [facility] T ([facility] Respiratory rate 18 /min 18 /min [facility] ( [facility] Diastolic blood pressure 90 mm[Hg] 90 mm[Hg] [facility] ([facility] Systolic blood pressure 138 mm[Hg] 138 mm[Hg] M [facility] ([facility] Heart rate 79 /min 79 /min [facility] ([facility] Body temperature 97.8 [degF] 97.8 [degF] [facility] ([facility] Body height 61.5 [in_i] 61.5 [in_i] [facility] ([facility] 5'1.50" Body weight 122.38 [lb_av] 122.38 [lb_av] [facility] T ([facility] Oxygen saturation in Arterial blood by Pulse oximetry 98 % 98 % [facility] ([facility] [place] body weight 105 [lb_av] 105 [lb_av] [facility] T ([facility] Body mass index (BMI) [Ratio] 22.7 kg/m2 22.7 k g/m2 [facility] ([facility] Patient Treatment Plan of Care Planned Activity Planned Date Details Description Data Source (s) Sucralfate 100 MG/ML Oral Suspension 04/01/2021 12:00:00 AM EDT [facility] pantoprazole 40 MG Delayed Release Oral Tablet 01/21/2021 12:00:00 AM EDT [facility] potassium chloride SA (K-DUR,KLOR-CON) 20 MEQ tablet 12:00:00 AM EDT [facility] Furosemide 20 MG Oral Tablet 12/20/2020 12:00:00 AM EDT [facility] 24 HR Diltiazem Hydrochloride 240 MG Extended Release Oral Capsule 12/20/2020 12:00:00 AM EDT [facility] 24 HR metoprolol succinate 50 MG Extended Release Oral Tablet 12/06/2020 12:00:00 AM EDT [facility] Sucralfate 1000 MG Oral Tablet 12/05/2020 12:00:00 AM EDT [facility] potassium chloride SA (K-DUR,KLOR-CON) 20 MEQ tablet 021 12:00:00 AM EDT [facility] Furosemide 20 MG Oral Tablet 11/23/2020 12:00:00 AM [facility] [facility] Dig[facility] 0.125 MG Oral Tablet 07/29/2020 12:00:00 AM EST [facility] 24 HR Diltiazem Hydrochloride 240 MG Extended Release Oral Capsule 07/05/2020 12:00:00 AM EST [facility] apixaban 2.5 MG Oral Tablet 07/05/2020 12:00:00 AM EST [facility] Furosemide 20 MG Oral Tablet 07/01/2020 12:00:00 AM EST [facility] Lancets (ONETOUCH DELICA PLUS [id number]) MISC 06/05/2020 12:00:00 A M EST [facility] ONETOUCH ULTRA test strip 04/30/2020 12:00:00 AM EDT [facility] potassium chloride SA (K-DUR,KLOR-CON) 20 MEQ tablet 12:00:00 AM EDT [facility] Furosemide 20 MG Oral Tablet 03/24/2020 12:00:00 AM EDT [facility] 24 HR metoprolol succinate 50 MG Extended Release Oral Tablet 03/07/2020 12:00:00 AM EDT [facility] 24 HR Diltiazem Hydrochloride 240 MG Extended Release Oral Capsule 03/07/2020 12:00:00 AM EDT [facility] apixaban 2.5 MG Oral Tablet 02/23/2020 12:00:00 AM EDT [facility] Digoxin 0.125 MG Oral Tablet 02/23/2020 12:00:00 AM EDT [facility] Metformin hydrochloride 500 MG Oral Tablet [facility] glimepiride 1 MG Oral Tablet [facility] Sucralfate 100 MG/ML Oral Suspension [facility] potassium chloride SA (K-DUR,KLOR-CON) 20 MEQ tablet [facility] Ketotifen 0.25 MG/ML Ophthalmic Solution [facility] pantoprazole 40 MG Delayed Release Oral Tablet [facility]
--- OUTSIDE RECORDS SUMMARY | 2021-05-23 20:37 | CCD | Continuity of Care Document ---
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 AUTM [phone] [facility] AUTM Jeff Cramer AUTM [phone] Problems Active Problems Provider Date Type 2 [...] mouth weekly on an empty stomach 12tabs Deeajy Bryan FNP 09/07/2020 [employer] Lubricating Deodorant Liqui d Use as Directed Store 6 236units C18.9 Nadiya Bryan FNP 06/16/2020 Z93.2 [place] Remover Wipes Misc use 3-4 wipes every 4 days and as needed when changing ostomy 2Box Z93.2 Nadiya Bryan FNP 06/16/2020 C18.9 Efren Adapt Ceraing change every 4-5 days and as needed ref #[id number] 05 20units Nadiya Bryan FNP 05/05/2020 [place] 2 Piece Ostomy Skin Barrier ref # [id number] márquez ge every 4-5 days and as needed 20units C18.9 Nadiya Bryan FNP 04/14/2020 Z93.2 [place] 2 Piece Drainable Ostomy Pouch ref # [id number] c hange every 4-5 days and as [...] CPT Code Status Date Vaccine Lot # 54575 Refused 04/17/2016 Pneumococcal Vaccine 91196 Refused 04/17/2016 Prevnar 13 24168 Refused 04/17/2016 Influenza Vaccination Vital Signs Date Vital Result Comment 03/28/2021 11:51am BP Systolic 113 mmHg BP Diastolic 83 mmHg Heart Rate 127 /min Body Temperature 98.0 F Respiratory Rate 18 /min Height 61.5 inches 5'1.50" Weight 114.38 lb O2 % BldC Oximetry 100 % [place] Body Weight 105 lb BMI (Body Mass Index) 21.3 kg/m2 03/23/2021 3:47pm BP Systolic 110 mmHg BP Diastolic 62 mmHg Heart Rate 64 /min Body Temperature 98.7 F Respiratory Rate 16 /min Height 61.5 inches 5'1.50" Weight 116.38 lb O2 % BldC Oximetry 99 % [place] Body Weight 105 lb BMI (Body Mass Index) 21.6 kg/m2 Results Test Acquired Date Facility Test Result H/L Range Note Type & Screen -Incl Blood Type,Tye,AB SC 05/08/2021 Patient Service [place] [id number] [phone] Blood Type O POSITIVE Normal AB Screen (Indirect Farooq)Vis NEGATIVE Normal Laboratory test finding 05/08/2021 [place] [address] [phone] Packed Cells TRANSFUSED PRODU <SEE NOTE> 1 Occult Blood 05/08/[address] [place] [address] [phone] Occult Blood OCCULT BLOOD 1 <SEE NOTE> Abnormal 2 CBC With Differential 05/08/2021 [place] [address] [phone] White Blood Count 4.8 10 Normal 4.0-10.0 [...] 36.0-66.0 Lymph % 5.2 % Low 24.0-44.0 [place] % 11.2 % High 2.0-8.0 Eos % 1.4 % Normal 0.0-3.0 Baso % 0.4 % Normal 0.0-1.0 Immature Granulocyte % 0.4 % Normal 0-3.0 Nucleated Red Blood Cell % 0.0 % Normal 0-0 Neutrophils # 3.9 10 Normal 1.5-8.5 Lymph # 0.3 10 Low 1.5-5.0 Hancock # 0.5 10 Normal 0.0-0.8 Eos # 0.1 10 Normal 0.0-0.5 Baso # 0.0 10 Normal 0.0-0.2 CBC With Differential 05/05/2021 Patient Service [place] [id number] [phone] White Blood Count 5.1 10 Normal 4.0-10.0 [...] 36.0-66.0 Lymph % 6.3 % Low 24.0-44.0 Hancock % 11.5 % High 2.0-8.0 Eos % 0.8 % Normal 0.0-3.0 Baso % 0.4 % Normal 0.0-1.0 Immature Granulocyte % 0.6 % Normal 0-3.0 Nucleated Red Blood Cell % 0.0 % Normal 0-0 Neutrophils # 4.1 10 Normal 1.5-8.5 Lymph # 0.3 10 Low 1.5-5.0 Hancock # 0.6 10 Normal 0.0-0.8 Eos # 0.0 10 Normal 0.0-0.5 Baso # 0.0 10 Normal 0.0-0.2 Laboratory test finding 05/05/2021 [place] [address] [phone] Packed Cells TRANSFUSED PRODU <SEE NOTE> 3 Type & Screen -Incl Blood Type,Tye,AB SC 05/05/2021 [place] [address] [phone] Blood Type O POSITIVE Normal AB Screen (Indirect Farooq)Vis NEGATIVE Normal Laboratory test finding 05/05/2021 [place] [address] [phone] LDH Lactate Dehydrogenase 128 U/L Normal 84-246 Platelet Function Analysis 05/05/2021 [place] [address] [phone] Collagen Epinephrine TNP seconds Normal 74-162 4 Laboratory test finding 05/05/2021 [place] [address] [phone] Partial Thromboplastin Time 24.9 seconds Low 25 .9-37.0 Prothrombin Time/Inr 05/05/2021 [place] [address] [phone] Prothrombin Time 14.0 seconds Normal 12.7-14.5 Inr 1.04 Normal 5 Retic (Reticulocyte Count) 05/05/2021 [place] [address] [phone] Reticulocyte % 5.9 % High 0.5-1.5 Reticulocyte # 119.8 10 High 17-77 Retic Hemoglobin Equivalent 30.7 pg Normal 24-36 CBC With Differential 04/27/2021 [place] [address] [phone] White Blood Count 4.2 10 Normal 4.0-10.0 [...] 36.0-66.0 Lymph % 8.1 % Low 24.0-44.0 Hancock % 12.8 % High 2.0-8.0 Eos % 1.0 % Normal 0.0-3.0 Baso % 0.2 % Normal 0.0-1.0 Immature Granulocyte % 0.5 % Normal 0-3.0 Nucleated Red Blood Cell % 0.0 % Normal 0-0 Neutrophils # 3.3 10 Normal 1.5-8.5 Lymph # 0.3 10 Low 1.5-5.0 Hancock # 0.5 10 Normal 0.0-0.8 Eos # 0.0 10 Normal 0.0-0.5 Baso # 0.0 10 Normal 0.0-0.2 CBC With Differential 04/20/2021 Patient Service [place] 3580353 [phone] White Blood Count 3.9 10 Low 4.0-10.0 [...] 36.0-66.0 Lymph % 8.8 % Low 24.0-44.0 Hancock % 11.9 % High 2.0-8.0 Eos % 1.0 % Normal 0.0-3.0 Baso % 0.5 % Normal 0.0-1.0 Immature Granulocyte % 0.8 % Normal 0-3.0 Nucleated Red Blood Cell % 0.0 % Normal 0-0 Neutrophils # 3.0 10 Normal 1.5-8.5 Lymph # 0.3 10 Low 1.5-5.0 Hancock # 0.5 10 Normal 0.0-0.8 Eos # 0.0 10 Normal 0.0-0.5 Baso # 0.0 10 Normal 0.0-0.2 CBC With Differential 04/12/2021 [place] [address] [phone] White Blood Count 4.6 10 Normal 4.0-10.0 [...] 36.0-66.0 Lymph % 6.6 % Low 24.0-44.0 Hancock % 9.4 % High 2.0-8.0 Eos % 0.9 % Normal 0.0-3.0 Baso % 0.2 % Normal 0.0-1.0 Immature Granulocyte % 0.4 % Normal 0-3.0 Nucleated Red Blood Cell % 0.0 % Normal 0-0 Neutrophils # 3.8 10 Normal 1.5-8.5 Lymph # 0.3 10 Low 1.5-5.0 Hancock # 0.4 10 Normal 0.0-0.8 Eos # 0.0 10 Normal 0.0-0.5 Baso # 0.0 10 Normal 0.0-0.2 Coronavirus 2019 Nasopharygeal 04/10/2021 [place] [phone] Coronavirus 2019 Nasopharygeal ASSAY INFORMATIO <SEE N OTE> 6 Type & Screen -Incl Blood Type,Tye,AB SC 04/07/2021 [place] [address] [phone] Blood Type O POSITIVE Normal AB Screen (Indirect Farooq)Vis NEGATIVE Normal Laboratory test finding 04/07/2021 [place] [address] [phone] Packed Cells TRANSFUSED PRODU <SEE NOTE> 7 CBC With Differential 04/07/2021 [place] [address] [phone] White Blood Count 3.4 10 Low 4.0-10.0 [...] 36.0-66.0 Lymph % 8.5 % Low 24.0-44.0 Hancock % 10.9 % High 2.0-8.0 Eos % 0.9 % Normal 0.0-3.0 Baso % 0.6 % Normal 0.0-1.0 Immature Granulocyte % 0.6 % Normal 0-3.0 Nucleated Red Blood Cell % 0.0 % Normal 0-0 Neutrophils # 2.7 10 Normal 1.5-8.5 Lymph # 0.3 10 Low 1.5-5.0 Hancock # 0.4 10 Normal 0.0-0.8 Eos # 0.0 10 Normal 0.0-0.5 Baso # 0.0 10 Normal 0.0-0.2 Total Iron Binding Capacit 04/07/2021 [place] [address] [phone] Iron (Fe) 48 g/dL Low 50-170 Total Iron Binding Capacity 353 g/dL Normal 250-450 Percent Saturation 13.6 % Normal 13.2-45.0 Comprehensive Metabolic Profil 04/07/2021 Patient S [place], [place] [phone] Glucose, Fasting 184 mg/dL High 70-100 Blood [...] Laboratory test finding 04/07/2021 [place] [address] [phone] Carcinoembryonic Antigen < 0.5 NG/ML Normal <2.5 9 Ferritin 66 NG/ML Normal 8-252 Comprehensive Metabolic Profil 03/24/2021 Patient [place], [place] [id number] [phone] Glucose, Fasting 96 mg/dL Normal 70-100 Blood [...] Covid Amp 03/24/2021 [place] [address] [phone] Influenza A Amplification NEGATIVE Normal Negati ve 11 Influenza B Amplification NEGATIVE Normal Negative 12 RSV Amplification NEGATIVE Normal Negative 13 Sars Covid-19 Amplification NEGATIVE Normal Negative 14 Laboratory test finding 03/24/2021 [place] [address] [phone] Packed Cells TRANSFUSED PRODU <SEE NOTE> 15 CBC With Differential 03/24/2021 [place] [address] [phone] White Blood Count 4.6 10 Normal 4.0-10.0 [...] 36.0-66.0 Lymph % 6.2 % Low 24.0-44.0 Hancock % 11.4 % High 2.0-8.0 Eos % 0.4 % Normal 0.0-3.0 Baso % 0.4 % Normal 0.0-1.0 Immature Granulocyte % 0.4 % Normal 0-3.0 Nucleated Red Blood Cell % 0.7 % High 0-0 Neutrophils # 3.7 10 Normal 1.5-8.5 Lymph # 0.3 10 Low 1.5-5.0 Hancock # 0.5 10 Normal 0.0-0.8 Eos # 0.0 10 Normal 0.0-0.5 Baso # 0.0 10 Normal 0.0-0.2 Metabolic Panel (14), Comprehensive 03/17/2021 [facility] [address] [place] [address] [phone] Calcium 9.5 mg/dL 8.7-10.3 Glucose 81 mg/dL [...] 8 IU/L 0-32 Lipid Panel 03/17/[address] [facility] [address] [place] [address] [phone] Cholesterol, Total 123 mg/dL 100-199 Triglycerides 141 mg/dL 0-149 HDL Cholesterol 37 mg/dL Low >39 VLDL Cholesterol Mark 25 mg/dL 5-40 LDL Chol Calc (Nih) 61 mg/dL 0-99 Comment: TNP Hemoglobin A1c 03/17/2021 [facility] [address] [place] [address] [phone] Hemoglobin A1c 4.8 % 4.8-5.6 18 Albumin/Creatinine Ratio, Random Urine 03/17/2021 [facility] [address] [place] [address] [phone] Creatinine, Urine 120.2 mg/dL Not Estab. Albumin, Urine 20.1 ug/mL Not Estab. Alb/Creat Ratio 17 mg/gcreat 0-29 19 CBC With Differential 03/14/2021 [place] [address] [phone] White Blood Count 4.0 10 Normal 4.0-10.0 [...] 36.0-66.0 Lymph % 6.8 % Low 24.0-44.0 Hancock % 9.3 % High 2.0-8.0 Eos % 1.0 % Normal 0.0-3.0 Baso % 0.8 % Normal 0.0-1.0 Immature Granulocyte % 0.3 % Normal 0-3.0 Nucleated Red Blood Cell % 0.0 % Normal 0-0 Neutrophils # 3.3 10 Normal 1.5-8.5 Lymph # 0.3 10 Low 1.5-5.0 Hancock # 0.4 10 Normal 0.0-0.8 Eos # 0.0 10 Normal 0.0-0.5 Baso # 0.0 10 Normal 0.0-0.2 Laboratory test finding 03/14/2021 [place] [address] [phone] Packed Cells TRANSFUSED PRODU <SEE NOTE> 20 Type & Screen -Incl Blood Type,Tye,AB SC 03/14/2021 [place] [address] [phone] Blood Type O POSITIVE Normal AB Screen (Indirect Farooq)Vis NEGATIVE Normal CBC With Differential 03/10/2021 [place] [address] [phone] White Blood Count 3.4 10 Low 4.0-10.0 [...] 36.0-66.0 Lymph % 7.6 % Low 24.0-44.0 Hancock % 12.9 % High 2.0-8.0 Eos % 1.2 % Normal 0.0-3.0 Baso % 0.6 % Normal 0.0-1.0 Immature Granulocyte % 0.3 % Normal 0-3.0 Nucleated Red Blood Cell % 0.0 % Normal 0-0 Neutrophils # 2.6 10 Normal 1.5-8.5 Lymph # 0.3 10 Low 1.5-5.0 Hancock # 0.4 10 Normal 0.0-0.8 Eos # 0.0 10 Normal 0.0-0.5 Baso # 0.0 10 Normal 0.0-0.2 Comprehensive Metabolic Profil 03/10/2021 Patient S [place] [id number] [phone] Glucose, Fasting 166 mg/dL High 70-100 Blood [...] Binding Capacit 03/10/2021 [place] [address] [phone] Iron (Fe) 72 g/dL Normal 50-170 Total Iron Binding Capacity 352 g/dL Normal 250-450 Percent Saturation 20.5 % Normal 13.2-45.0 Laboratory test finding 03/10/2021 [place] [address] [phone] Carcinoembryonic Antigen < 0.5 NG/ML Normal <2.5 22 Ferritin 492 NG/ML High 8-252 Laboratory test finding 02/28/2021 Patient Service [place] [phone] Packed Cells TRANSFUSED PRODU <SEE NOTE> 23 Type & Screen -Incl Blood Type,Tye,AB SC 02/28/2021 [place] [address] [phone] Blood Type O POSITIVE Normal AB Screen (Indirect Farooq)Vis NEGATIVE Normal Laboratory test finding 02/27/2021 [place] [address] [phone] Blood Urea Nitrogen 26 mg/dL High 7-18 CBC With Differential 02/27/2021 [place] [address] [phone] White Blood Count 6.0 10 Normal 4.0-10.0 [...] 36.0-66.0 Lymph % 4.7 % Low 24.0-44.0 Hancock % 11.6 % High 2.0-8.0 Eos % 0.5 % Normal 0.0-3.0 Baso % 0.3 % Normal 0.0-1.0 Immature Granulocyte % 0.8 % Normal 0-3.0 Nucleated Red Blood Cell % 0.3 % High 0-0 Neutrophils # 4.9 10 Normal 1.5-8.5 Lymph # 0.3 10 Low 1.5-5.0 Hancock # 0.7 10 Normal 0.0-0.8 Eos # 0.0 10 Normal 0.0-0.5 Baso # 0.0 10 Normal 0.0-0.2 Laboratory test finding 02/27/2021 [place] [address] [phone] Ferritin 1039 NG/ML High 8-252 Creatinine With GFR 02/27/2021 [place] [address] [phone] Creatinine For GFR 0.76 mg/dL Normal 0.55-1.30 Glomerular Filtration Rate > 60.0 Normal >32 2 4 Total Iron Binding Capacit 02/27/2021 [place] [address] [phone] Iron (Fe) 79 g/dL Normal 50-170 Total Iron Binding Capacity 384 g/dL Normal 250-450 Percent Saturation 20.6 % Normal 13.2-45.0 Laboratory test finding 02/10/2021 Patient Service [place] [phone] [phone] Packed Cells TRANSFUSED PRODU <SEE NOTE> 25 Type & Screen -Incl Blood Type,Tye,AB SC 02/10/2021 [place] [address] [phone] Blood Type O POSITIVE Normal AB Screen (Indirect Farooq)Vis NEGATIVE Normal CBC With Differential 02/09/2021 [place] [address] [phone] White Blood Count 3.9 10 Low 4.0-10.0 [...] 36.0-66.0 Lymph % 7.2 % Low 24.0-44.0 Hancock % 10.0 % High 2.0-8.0 Eos % 1.0 % Normal 0.0-3.0 Baso % 0.5 % Normal 0.0-1.0 Immature Granulocyte % 0.5 % Normal 0-3.0 Nucleated Red Blood Cell % 0.0 % Normal 0-0 Neutrophils # 3.1 10 Normal 1.5-8.5 Lymph # 0.3 10 Low 1.5-5.0 Hancock # 0.4 10 Normal 0.0-0.8 Eos # 0.0 10 Normal 0.0-0.5 Baso # 0.0 10 Normal 0.0-0.2 CBC With Differential 01/27/2021 Patient Service [place] 3580392 [phone] White Blood Count 4.2 10 Normal 4.0-10.0 [...] 36.0-66.0 Lymph % 13.6 % Low 24.0-44.0 Hancock % 14.6 % High 2.0-8.0 Eos % 1.4 % Normal 0.0-3.0 Baso % 0.5 % Normal 0.0-1.0 Immature Granulocyte % 0.5 % Normal 0-3.0 Nucleated Red Blood Cell % 0.0 % Normal 0-0 Neutrophils # 2.9 10 Normal 1.5-8.5 Lymph # 0.6 10 Low 1.5-5.0 Hancock # 0.6 10 Normal 0.0-0.8 Eos # 0.1 10 Normal 0.0-0.5 Baso # 0.0 10 Normal 0.0-0.2 Comprehensive Metabolic Profil 01/27/2021 [place] [address] [phone] Glucose, Fasting 59 mg/dL Low 70-100 Blood [...] Iron Binding Capacit 01/27/2021 [place] [address] [phone] Iron (Fe) 59 g/dL Normal 50-170 Total Iron Binding Capacity 397 g/dL Normal 250-450 Percent Saturation 14.9 % Normal 13.2-45.0 Laboratory test finding 01/27/2021 [place] [address] [phone] Ferritin 39 NG/ML Normal 8-252 Carcinoembryonic Antigen 0.5 NG/ML Normal <2.5 27 Complete Blood Count 01/20/2021 [place] [address] [phone] White Blood Count 3.3 10 Low 4.0-10.0 [...] 0-0 Laboratory test finding 01/20/2021 [place] [address] [phone] Blood Urea Nitrogen 21 mg/dL High 7-18 Creatinine With GFR 01/20/2021 [place] [address] [phone] Creatinine For GFR 0.69 mg/dL Normal 0.55-1.30 Glomerular Filtration Rate > 60.0 Normal >32 2 8 Type & Screen -Incl Blood Type,Tye,AB [place] 01/20/2021 [place] [address] [phone] Blood Type O POSITIVE Normal AB Screen (Indirect Farooq)Vis NEGATIVE Normal Coronavirus 2019 Nasopharygeal 01/16/2021 Patient S ervice [place] [phone] Coronavirus 2019 Nasopharygeal ASSAY INFORMATIO <SEE N OTE> 29 Type & Screen -Incl Blood Type,Tye,AB [place] 01/03/2021 Patient Service [place] 3414740 [phone] Blood Type O POSITIVE Normal AB Screen (Indirect Farooq)Vis NEGATIVE Normal Laboratory test finding 01/03/2021 [place] [address] [phone] Packed Cells TRANSFUSED PRODU <SEE NOTE> 30 Laboratory test finding 01/02/2021 [place] [address] [phone] Thyroid Stimulating Hormone 1.660 uIU/ML Normal 0. 358-3.740 Free T4 0.87 ng/dL Normal 0.76-1.46 Ferritin 58 NG/ML Normal 8-252 Total Iron Binding Capacit 01/02/2021 [place] [address] [phone] Iron (Fe) 55 g/dL Normal 50-170 Total Iron Binding Capacity 398 g/dL Normal 250-450 Percent Saturation 13.8 % Normal 13.2-45.0 CBC With Differential 01/02/2021 [place] [address] [phone] White Blood Count 4.3 10 Normal 4.0-10.0 [...] 36.0-66.0 Lymph % 10.7 % Low 24.0-44.0 Hancock % 13.1 % High 2.0-8.0 Eos % 0.7 % Normal 0.0-3.0 Baso % 0.5 % Normal 0.0-1.0 Immature Granulocyte % 0.5 % Normal 0-3.0 Nucleated Red Blood Cell % 0.0 % Normal 0-0 Neutrophils # 3.2 10 Normal 1.5-8.5 Lymph # 0.5 10 Low 1.5-5.0 Hancock # 0.6 10 Normal 0.0-0.8 Eos # 0.0 10 Normal 0.0-0.5 Baso # 0.0 10 Normal 0.0-0.2 Comprehensive Metabolic Profil 01/02/2021 Patient [place], [place] [address]67 [phone] Glucose, Fasting 155 mg/dL High 70-100 Blood [...] 1.2-2.2 Laboratory test finding 12/23/2020 [place] [address] [phone] iSTAT Troponin 0.01 NG/ML Normal 0.00-0.08 Istat Chem8+ Panel 12/23/2020 [place] [address] [phone] iSTAT HCT 33.0 % Low 38.0-51.0 iSTAT Glucose 94 mg/dL Normal 70-105 iSTAT Sodium 138 mEq/L Normal 136-145 iSTAT Potassium 4.2 mEq/L Normal 3.5-5.1 iSTAT CA++ 5.0 mg/dL Normal 4.5-5.3 iSTAT Chloride 102 mEq/L Normal 98-109 iSTAT Co2 27.0 MM/L Normal 23.0-27.0 iSTAT BUN 20 mg/dL Normal 8-26 iSTAT Creatinine 0.7 mg/dL Normal 0.6-1.3 CBC With Differential 12/23/2020 Patient Service Ce nter [facility] [place] [place] [address] [phone] White Blood Count 4.5 10 Normal 4.0-10.0 [...] 36.0-66.0 Lymph % 9.7 % Low 24.0-44.0 Hancock % 11.9 % High 2.0-8.0 Eos % 0.9 % Normal 0.0-3.0 Baso % 0.4 % Normal 0.0-1.0 Immature Granulocyte % 0.4 % Normal 0-3.0 Nucleated Red Blood Cell % 0.0 % Normal 0-0 Neutrophils # 3.5 10 Normal 1.5-8.5 Lymph # 0.4 10 Low 1.5-5.0 Hancock # 0.5 10 Normal 0.0-0.8 Eos # 0.0 10 Normal 0.0-0.5 Baso # 0.0 10 Normal 0.0-0.2 PT & Aptt 12/23/2020 [place] [address] [phone] Prothrombin Time 13.3 seconds Normal 12.5-14.3 Inr 0.99 Normal 32 Partial Thromboplastin Time 29.5 seconds Normal 24.2-38.5 Liver Profile 12/23/2020 [place] [address] [phone] Ast/Sgot 13 U/L Normal 7-37 Alt/SGPT 14 U/L Normal 12-78 Alkaline Phosphatase 95 U/L Normal 45-117 Bilirubin,Total 0.9 mg/dL Normal 0.2-1.0 Bilirubin,Direct 0.3 mg/dL High 0.0-0.2 Total Protein 6.5 GM/DL Normal 6.4-8.2 Albumin 3.4 GM/DL Normal 3.2-5.2 Albumin/Globulin Ratio 1.1 Low 1.2-2.2 Laboratory test finding 12/23/2020 Patient Service [place], [place] [id number] [phone] Lipase 73 U/L Normal 73-393 Lactic Acid Sepsis Protocol 0.8 mmol/L Normal 0.4-2.0 33 CBC With Differential 12/19/2020 [place] [address] [phone] White Blood Count 3.8 10 Low 4.0-10.0 [...] 36.0-66.0 Lymph % 11.7 % Low 24.0-44.0 Hancock % 11.9 % High 2.0-8.0 Eos % 1.1 % Normal 0.0-3.0 Baso % 0.3 % Normal 0.0-1.0 Immature Granulocyte % 0.5 % Normal 0-3.0 Nucleated Red Blood Cell % 0.0 % Normal 0-0 Neutrophils # 2.8 10 Normal 1.5-8.5 Lymph # 0.4 10 Low 1.5-5.0 Hancock # 0.5 10 Normal 0.0-0.8 Eos # 0.0 10 Normal 0.0-0.5 Baso # 0.0 10 Normal 0.0-0.2 CBC With Differential 12/05/2020 Patient Service [facility], [place] 1434146 [phone] White Blood Count 3.4 10 Low 4.0-10.0 [...] 36.0-66.0 Lymph % 12.8 % Low 24.0-44.0 Hancock % 13.7 % High 2.0-8.0 Eos % 1.2 % Normal 0.0-3.0 Baso % 0.6 % Normal 0.0-1.0 Immature Granulocyte % 0.3 % Normal 0-3.0 Nucleated Red Blood Cell % 0.0 % Normal 0-0 Neutrophils # 2.4 10 Normal 1.5-8.5 Lymph # 0.4 10 Low 1.5-5.0 Hancock # 0.5 10 Normal 0.0-0.8 Eos # 0.0 10 Normal 0.0-0.5 Baso # 0.0 10 Normal 0.0-0.2 Laboratory test finding 12/05/2020 [place] [address] [phone] Ferritin 108 NG/ML Normal 8-252 Total Iron Binding Capacit 12/05/2020 [place] [address] [phone] Iron (Fe) 94 g/dL Normal 50-170 Total Iron Binding Capacity 350 g/dL Normal 250-450 Percent Saturation 26.9 % Normal 13.2-45.0 PT & Aptt 12/05/2020 [place] [address] [phone] Prothrombin Time 13.3 seconds Normal 12.5-14.3 Inr 0.99 Normal 34 Partial Thromboplastin Time 29.4 seconds Normal 24.2-38.5 PT & Aptt 11/25/2020 [place] [address] [phone] Prothrombin Time 16.4 seconds High 12.5-14.3 Inr 1.29 Normal 35 Partial Thromboplastin Time 33.4 seconds Normal 24.2-38.5 Complete Blood Count 11/25/2020 [place] [address] [phone] White Blood Count 4.4 10 Normal 4.0-10.0 [...] 0-0 Comprehensive Metabolic Profil 11/25/2020 [place] [address] [phone] Glucose, Fasting 110 mg/dL High 70-100 Blood [...] 1.2-2.2 Cardiac Marker Panel 11/25/2020 [place] [address] [phone] CPK Creatine Phosphokinase 60 U/L Normal 26-19 2 CK-MB Value Mass 1.3 NG/ML Normal <3.6 MB/CK Relative Index 2.17 Normal < Or =4 37 Troponin I < 0.02 NG/ML Normal < 0.10 38 Laboratory test finding 11/25/2020 [place] [address] [phone] NT-Pro BNP 1795 pg/mL High <450 Type & Screen -Incl Blood Type,Tye,AB SC 11/25/2020 [place] [address] [phone] Blood Type O POSITIVE Normal AB Screen [...] passenger travel. Testing and International Air Travel, cdc.gov/coronavirus/2019-ncov/travelers/iklhkzc-ybk-busysc.html 09/01/2020 NOTE: The COVID-19 assay is under Emergency Use Authorization (EUA) by the U.S. Food and Drug Administration. [facility] are designated as high complexity laboratories by [...] Little GFR Left ESRD GFR <15 on FINANCIAL ACCOUNTING MANAGER 9 THE CEA ASSAY IS PERFORMED O N THE TempoIQAUR BY CHEMILUMINESCENCE AND SHOULD NOT BE COMPARED [...] Little GFR Left ESRD GFR <15 on FINANCIAL ACCOUNTING MANAGER 11 Negative results do not prec lude [...] pathogens. DISCLAIMER: Testing was performed using the [employer] SARS-CoV-2 test. This test was developed and its performance characteristics determined by [employer] This test has not been FDA cleared [...] Little GFR Left ESRD GFR <15 on FINANCIAL ACCOUNTING MANAGER 22 THE CEA ASSAY IS PERFORMED O N THE TempoIQAUR BY CHEMILUMINESCENCE AND SHOULD NOT BE COMPARED [...] Little GFR Left ESRD GFR <15 on FINANCIAL ACCOUNTING MANAGER 25 TRANSFUSED PRODUCT: PACKED C ELLS COUNT: 2 26 Units are mL/min/1.73 m2 Chronic Kidney Disease Staging per NKF: Stage I & II GFR >=60 Normal to Mildly Decreased Stage III GFR 30-59 Moderately Decreased Stage IV GFR 15-29 Severely Decreased Stage V GFR <15 Very Little GFR Left ESRD GFR <15 on FINANCIAL ACCOUNTING MANAGER 27 THE CEA ASSAY IS PERFORMED O N THE TempoIQAUR BY CHEMILUMINESCENCE AND SHOULD NOT BE COMPARED [...] Little GFR Left ESRD GFR <15 on FINANCIAL ACCOUNTING MANAGER 29 ASSAY INFORMATION: Real Time RT-PCR NOTE: The COVID-19 assay has been cleared by the [place]. Food and Drug Administration under the Emergency Use Authorization (EUA). [facility] are designated as high complexity laboratories by [...] Little GFR Left ESRD GFR <15 on FINANCIAL ACCOUNTING MANAGER 32 THERAPUTIC HUMAN INR VALUES INDICATIONS NORMAL [...] Little GFR Left ESRD GFR <15 on FINANCIAL ACCOUNTING MANAGER 37 DIAGNOSIS CRITERIA MMB ng/ml Relative Index (RI) NON-AMI < or = 5 N/A LEVINE ZONE > 5 < or = 4 AMI > 5 > 4 38 Troponin I Reference Interva l for [employer] LOCI: 99th Percentile= 0.00-0.045 ng/ml Risk Stratification: <= 0.10 ng/ml Decreased Risk for Adverse Clinical Events. 0.10-1.50 ng/ml Increased Risk for Adv erse Clinical Events. Evaluation of additional criterion and/or repeat testing in 2-6 hours is suggested to rule out myocardial damage. >= 1.50 ng/ml Indicative of Myocardial Injury. Procedures Date Code Description Status 03/28/2021 [id number] [place] W/I 7 Days Of DC, Comm W/I 2 Dys Completed 03/23/2021 [id number] Office/Outpatient Established Mo d MDM 30-39 Min Completed 03/23/2021 [id number] Diabetic Foot Exam Completed 01/25/2021 [id number] [place] [facility] W/I 7 Days Of DC, Comm W/I 2 Dys Completed 12/27/2020 [id number] Office/Outpatient Established Mo d MDM 30-39 Min Completed 12/19/2020 [id number] Office/Outpatient Established Mo d MDM 30-39 Min Completed 12/02/2020 [id number] [place] [facility] W/I 7 Days Of DC, Comm W/I 2 Dys Completed [facility] Description No Information Available Encounters Type Date Location Provider Dx Diagnosis Office Visit 03/28/2021 11:45a Main Office Nadiya Bryan FNP D64.9 Anemia, unspecified K29.61 Other gastritis with bleedin g Office Visit 03/23/2021 3:45p Main Office Nadiya Bryan, [employer] E11.6 9 Type 2 diabetes mellitus with [...] Visit 12/19/2020 2:15p Main Office Nadiya Bryan, [employer] E11.6 9 Type 2 diabetes mellitus with other specified complication E78.2 Mixed hyperlipidemia I10 Essential (primary) hyperten yara 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 C18.9 Malignant neoplasm of colon, unspecified I48.91 Unspecified atrial fibrillat ion Office Visit 12/02/2020 10:30a Main Office Nadiya Bryan [employer] D64.9 Anemia, unspecified E11.69 Type 2 diabetes mellitus wit h other specified complication E78.2 Mixed hyperlipidemia I10 Essential (primary) hyperten yara 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 C18.9 Malignant neoplasm of colon, unspecified I48.91 Unspecified atrial fibrillat ion Assessments Date Code Description Provider 03/28/2021 D64.9 Anemia, unspecified Deejay Bryan FNP 03/28/2021 K29.61 Other gastritis with bleeding Pl Nadiya hogan [employer] 03/23/2021 E11.69 Type 2 diabetes mellitus with ot her specified complication PleSteve traceyy, [employer] 03/23/2021 C18.9 Malignant neoplasm of colon, uns pecified [place] Nadiya, [employer] 03/23/2021 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 PleNadiya tracey , [employer] 03/23/2021 E78.2 Mixed hyperlipidemia Pleskzulma, Chayo jarocho, [employer] 03/23/2021 I10 Essential (primary) hypertension [place] Nadiya, [employer] 03/23/2021 I48.91 Unspecified atrial fibrillation [place] Nadiya, [employer] 03/23/2021 D64.9 Anemia, unspecified P[place]kach, Mo lly, [employer] 01/25/2021 D64.9 Anemia, unspecified [place], Mo lly, [employer] 01/25/2021 K29.61 Other gastritis with bleeding Pl Nadiya hogan, [employer] 12/27/2020 E11.69 Type 2 diabetes mellitus with ot her specified complication Anitha Gamez M.D. 12/27/2020 C18.9 Malignant neoplasm of colon, uns pecified Anitha Gamez M.D. 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 12/27/2020 D64.9 Anemia, unspecified Angela Gamez M.D. 12/19/2020 E11.69 Type 2 diabetes mellitus with ot her specified complication PleNadiya tracey, [employer] 12/19/2020 E78.2 Mixed hyperlipidemia Pleskzulma, Chayo jarocho, [employer] 12/19/2020 I10 Essential (primary) hypertension Pleskzulma Nadiya, [employer] 12/19/2020 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 PleNadiya tracey , [employer] 12/19/2020 C18.9 Malignant neoplasm of colon, uns pecified Plealexy Nadiya, [employer] 12/19/2020 I48.91 Unspecified atrial fibrillation [place] Nadiya, [employer] 12/02/2020 D64.9 Anemia, unspecified Pleskach, Mo lly, [employer] 12/02/2020 E11.69 Type 2 diabetes mellitus with ot her specified complication Nadiya Bryan FNP 12/02/2020 E78.2 Mixed hyperlipidemia Cahyo Bryan, SUZANNE 12/02/2020 I10 Essential (primary) hypertension [...]
--- OUTSIDE RECORDS SUMMARY | 2021-05-23 20:37 | CCD | Continuity of Care Document ---
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 AUTM [phone] [facility] AUTM Jeff Cramer AUTM [phone] Problems Active Problems Provider Date Type 2 [...] 236units C18.9 Nadiya Bryan FNP 06/16/2020 Z93.2 [place] Remover Wipes Misc use 3-4 wipes every 4 days and as needed when changing ostomy 2Box Z93.2 Nadiya Bryan FNP 06/16/2020 C18.9 Efren Adapt Ceraing change every 4-5 days and as needed ref #[id number] 20units Nadiya Bryan FNP 05/05/2020 Raymond 2 Piece Ostomy Skin Barrier ref # [id number] márquez ge every 4-5 days and as needed 20units C18.9 Nadiya Bryan FNP 04/14/2020 Z93.2 Raymond 2 Piece Drainable Ostomy Pouch ref # [id number] c hange every 4-5 days and as [...] CPT Code Status Date Vaccine Lot # [id number] Refused 04/17/2016 Pneumococcal Vaccine 36849 Refused 04/17/2016 Prevnar 13 90670 Refused 04/17/2016 Influenza Vaccination Vital Signs Date Vital Result Comment 03/28/2021 11:51am BP Systolic 113 mmHg BP Diastolic 83 mmHg Heart Rate 127 /min Body Temperature 98.0 F Respiratory Rate 18 /min Height 61.5 inches 5'1.50" Weight 114.38 lb O2 % BldC Oximetry 100 % [place] Body Weight 105 lb BMI (Body Mass Index) 21.3 kg/m2 03/23/2021 3:47pm BP Systolic 110 mmHg BP Diastolic 62 mmHg Heart Rate 64 /min Body Temperature 98.7 F Respiratory Rate 16 /min Height 61.5 inches 5'1.50" Weight 116.38 lb O2 % BldC Oximetry 99 % [place] Body Weight 105 lb BMI (Body Mass Index) 21.6 kg/m2 Results Test Acquired Date Facility Test Result H/L Range Note Type & Screen -Incl Blood Type,Tye,AB SC 05/08/2021 Patient Service [place] [id number] [phone] Blood Type O POSITIVE Normal AB Screen (Indirect Farooq)Vis NEGATIVE Normal Laboratory test finding 05/08/2021 [place] [address] [phone] Packed Cells TRANSFUSED PRODU <SEE NOTE> 1 Occult Blood 05/08/2021 [place] [address] [phone] Occult Blood OCCULT BLOOD 1 <SEE NOTE> Abnormal 2 CBC With Differential 05/08/2021 [place] [address] [phone] White Blood Count 4.8 10 Normal 4.0-10.0 [...] 36.0-66.0 Lymph % 5.2 % Low 24.0-44.0 Hitchcock % 11.2 % High 2.0-8.0 Eos % 1.4 % Normal 0.0-3.0 Baso % 0.4 % Normal 0.0-1.0 Immature Granulocyte % 0.4 % Normal 0-3.0 Nucleated Red Blood Cell % 0.0 % Normal 0-0 Neutrophils # 3.9 10 Normal 1.5-8.5 Lymph # 0.3 10 Low 1.5-5.0 Hitchcock # 0.5 10 Normal 0.0-0.8 Eos # 0.1 10 Normal 0.0-0.5 Baso # 0.0 10 Normal 0.0-0.2 CBC With Differential 05/05/2021 Patient Service [place] [id number] [phone] White Blood Count 5.1 10 Normal 4.0-10.0 [...] 36.0-66.0 Lymph % 6.3 % Low 24.0-44.0 Hitchcock % 11.5 % High 2.0-8.0 Eos % 0.8 % Normal 0.0-3.0 Baso % 0.4 % Normal 0.0-1.0 Immature Granulocyte % 0.6 % Normal 0-3.0 Nucleated Red Blood Cell % 0.0 % Normal 0-0 Neutrophils # 4.1 10 Normal 1.5-8.5 Lymph # 0.3 10 Low 1.5-5.0 Hitchcock # 0.6 10 Normal 0.0-0.8 Eos # 0.0 10 Normal 0.0-0.5 Baso # 0.0 10 Normal 0.0-0.2 Laboratory test finding 05/05/2021 [place] [address] [phone] Packed Cells TRANSFUSED PRODU <SEE NOTE> 3 Type & Screen -Incl Blood Type,Tye,AB SC 05/05/2021 [place] [address] [phone] Blood Type O POSITIVE Normal AB Screen (Indirect Farooq)Vis NEGATIVE Normal Laboratory test finding 05/05/2021 [place] [address] [phone] LDH Lactate Dehydrogenase 128 U/L Normal 84-246 Platelet Function Analysis 05/05/2021 [place] [address] [phone] Collagen Epinephrine TNP seconds Normal 74-162 4 Laboratory test finding 05/05/2021 [place] [address] [phone] Partial Thromboplastin Time 24.9 seconds Low 25 .9-37.0 Prothrombin Time/Inr 05/05/2021 [place] [address] [phone] Prothrombin Time 14.0 seconds Normal 12.7-14.5 Inr 1.04 Normal 5 Retic (Reticulocyte Count) 05/05/2021 [place] [address] [phone] Reticulocyte % 5.9 % High 0.5-1.5 Reticulocyte # 119.8 10 High 17-77 Retic Hemoglobin Equivalent 30.7 pg Normal 24-36 CBC With Differential 04/27/2021 [place] [address] [phone] White Blood Count 4.2 10 Normal 4.0-10.0 [...] 36.0-66.0 Lymph % 8.1 % Low 24.0-44.0 Hitchcock % 12.8 % High 2.0-8.0 Eos % 1.0 % Normal 0.0-3.0 Baso % 0.2 % Normal 0.0-1.0 Immature Granulocyte % 0.5 % Normal 0-3.0 Nucleated Red Blood Cell % 0.0 % Normal 0-0 Neutrophils # 3.3 10 Normal 1.5-8.5 Lymph # 0.3 10 Low 1.5-5.0 Hitchcock # 0.5 10 Normal 0.0-0.8 Eos # 0.0 10 Normal 0.0-0.5 Baso # 0.0 10 Normal 0.0-0.2 CBC With Differential 04/20/2021 Patient Service [place] [id number] [phone] White Blood Count 3.9 10 Low 4.0-10.0 [...] 36.0-66.0 Lymph % 8.8 % Low 24.0-44.0 Hitchcock % 11.9 % High 2.0-8.0 Eos % 1.0 % Normal 0.0-3.0 Baso % 0.5 % Normal 0.0-1.0 Immature Granulocyte % 0.8 % Normal 0-3.0 Nucleated Red Blood Cell % 0.0 % Normal 0-0 Neutrophils # 3.0 10 Normal 1.5-8.5 Lymph # 0.3 10 Low 1.5-5.0 Hitchcock # 0.5 10 Normal 0.0-0.8 Eos # 0.0 10 Normal 0.0-0.5 Baso # 0.0 10 Normal 0.0-0.2 CBC With Differential 04/12/2021 [place] [address] [phone] White Blood Count 4.6 10 Normal 4.0-10.0 [...] 36.0-66.0 Lymph % 6.6 % Low 24.0-44.0 Hitchcock % 9.4 % High 2.0-8.0 Eos % 0.9 % Normal 0.0-3.0 Baso % 0.2 % Normal 0.0-1.0 Immature Granulocyte % 0.4 % Normal 0-3.0 Nucleated Red Blood Cell % 0.0 % Normal 0-0 Neutrophils # 3.8 10 Normal 1.5-8.5 Lymph # 0.3 10 Low 1.5-5.0 Hitchcock # 0.4 10 Normal 0.0-0.8 Eos # 0.0 10 Normal 0.0-0.5 Baso # 0.0 10 Normal 0.0-0.2 Coronavirus 2019 Nasopharygeal 04/10/2021 [place] [id number] [phone] Coronavirus 2019 Nasopharygeal ASSAY INFORMATIO <SEE N OTE> 6 Type & Screen -Incl Blood Type,Tye,AB SC 04/07/2021 [place] [address] [phone] Blood Type O POSITIVE Normal AB Screen (Indirect Farooq)Vis NEGATIVE Normal Laboratory test finding 04/07/2021 [place] [address] [phone] Packed Cells TRANSFUSED PRODU <SEE NOTE> 7 CBC With Differential 04/07/2021 [place] [address] [phone] White Blood Count 3.4 10 Low 4.0-10.0 [...] 36.0-66.0 Lymph % 8.5 % Low 24.0-44.0 Hitchcock % 10.9 % High 2.0-8.0 Eos % 0.9 % Normal 0.0-3.0 Baso % 0.6 % Normal 0.0-1.0 Immature Granulocyte % 0.6 % Normal 0-3.0 Nucleated Red Blood Cell % 0.0 % Normal 0-0 Neutrophils # 2.7 10 Normal 1.5-8.5 Lymph # 0.3 10 Low 1.5-5.0 Hitchcock # 0.4 10 Normal 0.0-0.8 Eos # 0.0 10 Normal 0.0-0.5 Baso # 0.0 10 Normal 0.0-0.2 Total Iron Binding Capacit 04/07/2021 [place] [address] [phone] Iron (Fe) 48 g/dL Low 50-170 Total Iron Binding Capacity 353 g/dL Normal 250-450 Percent Saturation 13.6 % Normal 13.2-45.0 Comprehensive Metabolic Profil 04/07/2021 Patient S [place], [place] [id number] [phone] Glucose, Fasting 184 mg/dL High 70-100 Blood [...] Laboratory test finding 04/07/2021 [place] [address] [phone] Carcinoembryonic Antigen < 0.5 NG/ML Normal <2.5 9 Ferritin 66 NG/ML Normal 8-252 Comprehensive Metabolic Profil 03/24/2021 Patient [place], [place] [id number] [phone] Glucose, Fasting 96 mg/dL Normal 70-100 Blood [...] Covid Amp 03/24/2021 [place] [address] [phone] Influenza A Amplification NEGATIVE Normal Negati ve 11 Influenza B Amplification NEGATIVE Normal Negative 12 RSV Amplification NEGATIVE Normal Negative 13 Sars Covid-19 Amplification NEGATIVE Normal Negative 14 Laboratory test finding 03/24/2021 [place] [address] [phone] Packed Cells TRANSFUSED PRODU <SEE NOTE> 15 CBC With Differential 03/24/2021 [place] [address] [phone] White Blood Count 4.6 10 Normal 4.0-10.0 [...] 36.0-66.0 Lymph % 6.2 % Low 24.0-44.0 Hitchcock % 11.4 % High 2.0-8.0 Eos % 0.4 % Normal 0.0-3.0 Baso % 0.4 % Normal 0.0-1.0 Immature Granulocyte % 0.4 % Normal 0-3.0 Nucleated Red Blood Cell % 0.7 % High 0-0 Neutrophils # 3.7 10 Normal 1.5-8.5 Lymph # 0.3 10 Low 1.5-5.0 Hitchcock # 0.5 10 Normal 0.0-0.8 Eos # 0.0 10 Normal 0.0-0.5 Baso # 0.0 10 Normal 0.0-0.2 Metabolic Panel (14), Comprehensive 03/17/2021 [facility] [address] [place] [address] [phone] Calcium 9.5 mg/dL 8.7-10.3 Glucose 81 mg/dL [...] 8 IU/L 0-32 Lipid Panel 03/17/[address] [facility] [address] [place] [address] [phone] Cholesterol, Total 123 mg/dL 100-199 Triglycerides 141 mg/dL 0-149 HDL Cholesterol 37 mg/dL Low >39 VLDL Cholesterol Amrk 25 mg/dL 5-40 LDL Chol Calc (Nih) 61 mg/dL 0-99 Comment: TNP Hemoglobin A1c 03/17/2021 [facility] [address] [place] [address] [phone] Hemoglobin A1c 4.8 % 4.8-5.6 18 Albumin/Creatinine Ratio, Random Urine 03/17/2021 [facility] [address] [place] [address] [phone] Creatinine, Urine 120.2 mg/dL Not Estab. Albumin, Urine 20.1 ug/mL Not Estab. Alb/Creat Ratio 17 mg/gcreat 0-29 19 CBC With Differential 03/14/2021 [place] [address] [phone] White Blood Count 4.0 10 Normal 4.0-10.0 [...] 36.0-66.0 Lymph % 6.8 % Low 24.0-44.0 Hitchcock % 9.3 % High 2.0-8.0 Eos % 1.0 % Normal 0.0-3.0 Baso % 0.8 % Normal 0.0-1.0 Immature Granulocyte % 0.3 % Normal 0-3.0 Nucleated Red Blood Cell % 0.0 % Normal 0-0 Neutrophils # 3.3 10 Normal 1.5-8.5 Lymph # 0.3 10 Low 1.5-5.0 Hitchcock # 0.4 10 Normal 0.0-0.8 Eos # 0.0 10 Normal 0.0-0.5 Baso # 0.0 10 Normal 0.0-0.2 Laboratory test finding 03/14/2021 [place] [address] [phone] Packed Cells TRANSFUSED PRODU <SEE NOTE> 20 Type & Screen -Incl Blood Type,Tye,AB SC 03/14/2021 [place] [address] [phone] Blood Type O POSITIVE Normal AB Screen (Indirect Farooq)Vis NEGATIVE Normal CBC With Differential 03/10/2021 [place] [address] [phone] White Blood Count 3.4 10 Low 4.0-10.0 [...] 36.0-66.0 Lymph % 7.6 % Low 24.0-44.0 Hitchcock % 12.9 % High 2.0-8.0 Eos % 1.2 % Normal 0.0-3.0 Baso % 0.6 % Normal 0.0-1.0 Immature Granulocyte % 0.3 % Normal 0-3.0 Nucleated Red Blood Cell % 0.0 % Normal 0-0 Neutrophils # 2.6 10 Normal 1.5-8.5 Lymph # 0.3 10 Low 1.5-5.0 Hitchcock # 0.4 10 Normal 0.0-0.8 Eos # 0.0 10 Normal 0.0-0.5 Baso # 0.0 10 Normal 0.0-0.2 Comprehensive Metabolic Profil 03/10/2021 Patient S [place] [id number] [phone] Glucose, Fasting 166 mg/dL High 70-100 Blood [...] Binding Capacit 03/10/2021 [place] [address] [phone] Iron (Fe) 72 g/dL Normal 50-170 Total Iron Binding Capacity 352 g/dL Normal 250-450 Percent Saturation 20.5 % Normal 13.2-45.0 Laboratory test finding 03/10/2021 [place] [address] [phone] Carcinoembryonic Antigen < 0.5 NG/ML Normal <2.5 22 Ferritin 492 NG/ML High 8-252 Laboratory test finding 02/28/2021 Patient Service [place] [address]6074 [phone] Packed Cells TRANSFUSED PRODU <SEE NOTE> 23 Type & Screen -Incl Blood Type,Tye,AB SC 02/28/2021 [place] [address] [phone] Blood Type O POSITIVE Normal AB Screen (Indirect Farooq)Vis NEGATIVE Normal Laboratory test finding 02/27/2021 [place] [address] [phone] Blood Urea Nitrogen 26 mg/dL High 7-18 CBC With Differential 02/27/2021 [place] [address] [phone] White Blood Count 6.0 10 Normal 4.0-10.0 [...] 36.0-66.0 Lymph % 4.7 % Low 24.0-44.0 Hitchcock % 11.6 % High 2.0-8.0 Eos % 0.5 % Normal 0.0-3.0 Baso % 0.3 % Normal 0.0-1.0 Immature Granulocyte % 0.8 % Normal 0-3.0 Nucleated Red Blood Cell % 0.3 % High 0-0 Neutrophils # 4.9 10 Normal 1.5-8.5 Lymph # 0.3 10 Low 1.5-5.0 Hitchcock # 0.7 10 Normal 0.0-0.8 Eos # 0.0 10 Normal 0.0-0.5 Baso # 0.0 10 Normal 0.0-0.2 Laboratory test finding 02/27/2021 [place] [address] [phone] Ferritin 1039 NG/ML High 8-252 Creatinine With GFR 02/27/2021 [place] [address] [phone] Creatinine For GFR 0.76 mg/dL Normal 0.55-1.30 Glomerular Filtration Rate > 60.0 Normal >32 2 4 Total Iron Binding Capacit 02/27/2021 [place] [address] [phone] Iron (Fe) 79 g/dL Normal 50-170 Total Iron Binding Capacity 384 g/dL Normal 250-450 Percent Saturation 20.6 % Normal 13.2-45.0 Laboratory test finding 02/10/2021 Patient Service [place] [address]596062 [phone] Packed Cells TRANSFUSED PRODU <SEE NOTE> 25 Type & Screen -Incl Blood Type,Tye,AB SC 02/10/2021 [place] [address] [phone] Blood Type O POSITIVE Normal AB Screen (Indirect Farooq)Vis NEGATIVE Normal CBC With Differential 02/09/2021 [place] [address] [phone] White Blood Count 3.9 10 Low 4.0-10.0 [...] 36.0-66.0 Lymph % 7.2 % Low 24.0-44.0 Hitchcock % 10.0 % High 2.0-8.0 Eos % 1.0 % Normal 0.0-3.0 Baso % 0.5 % Normal 0.0-1.0 Immature Granulocyte % 0.5 % Normal 0-3.0 Nucleated Red Blood Cell % 0.0 % Normal 0-0 Neutrophils # 3.1 10 Normal 1.5-8.5 Lymph # 0.3 10 Low 1.5-5.0 Hitchcock # 0.4 10 Normal 0.0-0.8 Eos # 0.0 10 Normal 0.0-0.5 Baso # 0.0 10 Normal 0.0-0.2 CBC With Differential 01/27/2021 Patient Service [place] 9248213 [phone] White Blood Count 4.2 10 Normal 4.0-10.0 [...] 36.0-66.0 Lymph % 13.6 % Low 24.0-44.0 Hitchcock % 14.6 % High 2.0-8.0 Eos % 1.4 % Normal 0.0-3.0 Baso % 0.5 % Normal 0.0-1.0 Immature Granulocyte % 0.5 % Normal 0-3.0 Nucleated Red Blood Cell % 0.0 % Normal 0-0 Neutrophils # 2.9 10 Normal 1.5-8.5 Lymph # 0.6 10 Low 1.5-5.0 Hitchcock # 0.6 10 Normal 0.0-0.8 Eos # 0.1 10 Normal 0.0-0.5 Baso # 0.0 10 Normal 0.0-0.2 Comprehensive Metabolic Profil 01/27/2021 [place] [address] [phone] Glucose, Fasting 59 mg/dL Low 70-100 Blood [...] Iron Binding Capacit 01/27/2021 [place] [address] [phone] Iron (Fe) 59 g/dL Normal 50-170 Total Iron Binding Capacity 397 g/dL Normal 250-450 Percent Saturation 14.9 % Normal 13.2-45.0 Laboratory test finding 01/27/2021 [place] [address] [phone] Ferritin 39 NG/ML Normal 8-252 Carcinoembryonic Antigen 0.5 NG/ML Normal <2.5 27 Complete Blood Count 01/20/2021 [place] [address] [phone] White Blood Count 3.3 10 Low 4.0-10.0 [...] 0-0 Laboratory test finding 01/20/2021 [place] [address] [phone] Blood Urea Nitrogen 21 mg/dL High 7-18 Creatinine With GFR 01/20/2021 [place] [address] [phone] Creatinine For GFR 0.69 mg/dL Normal 0.55-1.30 Glomerular Filtration Rate > 60.0 Normal >32 2 8 Type & Screen -Incl Blood Type,Tye,AB AR 01/20/2021 [place] [address] [phone] Blood Type O POSITIVE Normal AB Screen (Indirect Farooq)Vis NEGATIVE Normal Coronavirus 2019 Nasopharygeal 01/16/2021 Patient S ervice [place] [address]596029 [phone] Coronavirus 2019 Nasopharygeal ASSAY INFORMATIO <SEE N OTE> 29 Type & Screen -Incl Blood Type,Tye,AB AR 01/03/2021 Patient Service [place] 0596065 [phone] Blood Type O POSITIVE Normal AB Screen (Indirect Farooq)Vis NEGATIVE Normal Laboratory test finding 01/03/2021 [place] [address] [phone] Packed Cells TRANSFUSED PRODU <SEE NOTE> 30 Laboratory test finding 01/02/2021 [place] [address] [phone] Thyroid Stimulating Hormone 1.660 uIU/ML Normal 0. 358-3.740 Free T4 0.87 ng/dL Normal 0.76-1.46 Ferritin 58 NG/ML Normal 8-252 Total Iron Binding Capacit 01/02/2021 [place] [address] [phone] Iron (Fe) 55 g/dL Normal 50-170 Total Iron Binding Capacity 398 g/dL Normal 250-450 Percent Saturation 13.8 % Normal 13.2-45.0 CBC With Differential 01/02/2021 [place] [address] [phone] White Blood Count 4.3 10 Normal 4.0-10.0 [...] 36.0-66.0 Lymph % 10.7 % Low 24.0-44.0 Hitchcock % 13.1 % High 2.0-8.0 Eos % 0.7 % Normal 0.0-3.0 Baso % 0.5 % Normal 0.0-1.0 Immature Granulocyte % 0.5 % Normal 0-3.0 Nucleated Red Blood Cell % 0.0 % Normal 0-0 Neutrophils # 3.2 10 Normal 1.5-8.5 Lymph # 0.5 10 Low 1.5-5.0 Hitchcock # 0.6 10 Normal 0.0-0.8 Eos # 0.0 10 Normal 0.0-0.5 Baso # 0.0 10 Normal 0.0-0.2 Comprehensive Metabolic Profil 01/02/2021 Patient S [place], [place] [id number] [phone] Glucose, Fasting 155 mg/dL High 70-100 Blood [...] 1.2-2.2 Laboratory test finding 12/23/2020 [place] [address] [phone] iSTAT Troponin 0.01 NG/ML Normal 0.00-0.08 Istat Chem8+ Panel 12/23/2020 [place] [address] [phone] iSTAT HCT 33.0 % Low 38.0-51.0 iSTAT Glucose 94 mg/dL Normal 70-105 iSTAT Sodium 138 mEq/L Normal 136-145 iSTAT Potassium 4.2 mEq/L Normal 3.5-5.1 iSTAT CA++ 5.0 mg/dL Normal 4.5-5.3 iSTAT Chloride 102 mEq/L Normal 98-109 iSTAT Co2 27.0 MM/L Normal 23.0-27.0 iSTAT BUN 20 mg/dL Normal 8-26 iSTAT Creatinine 0.7 mg/dL Normal 0.6-1.3 CBC With Differential 12/23/2020 Patient Service Ce nter [facility] [address] [phone] White Blood Count 4.5 10 Normal 4.0-10.0 [...] 36.0-66.0 Lymph % 9.7 % Low 24.0-44.0 Hitchcock % 11.9 % High 2.0-8.0 Eos % 0.9 % Normal 0.0-3.0 Baso % 0.4 % Normal 0.0-1.0 Immature Granulocyte % 0.4 % Normal 0-3.0 Nucleated Red Blood Cell % 0.0 % Normal 0-0 Neutrophils # 3.5 10 Normal 1.5-8.5 Lymph # 0.4 10 Low 1.5-5.0 Hitchcock # 0.5 10 Normal 0.0-0.8 Eos # 0.0 10 Normal 0.0-0.5 Baso # 0.0 10 Normal 0.0-0.2 PT & Aptt 12/23/2020 [place] [address] [phone] Prothrombin Time 13.3 seconds Normal 12.5-14.3 Inr 0.99 Normal 32 Partial Thromboplastin Time 29.5 seconds Normal 24.2-38.5 Liver Profile 12/23/2020 [place] [address] [phone] Ast/Sgot 13 U/L Normal 7-37 Alt/SGPT 14 U/L Normal 12-78 Alkaline Phosphatase 95 U/L Normal 45-117 Bilirubin,Total 0.9 mg/dL Normal 0.2-1.0 Bilirubin,Direct 0.3 mg/dL High 0.0-0.2 Total Protein 6.5 GM/DL Normal 6.4-8.2 Albumin 3.4 GM/DL Normal 3.2-5.2 Albumin/Globulin Ratio 1.1 Low 1.2-2.2 Laboratory test finding 12/23/2020 Patient Service [place], [place] [id number] [phone] Lipase 73 U/L Normal 73-393 Lactic Acid Sepsis Protocol 0.8 mmol/L Normal 0.4-2.0 33 CBC With Differential 12/19/2020 [place] [address] [phone] White Blood Count 3.8 10 Low 4.0-10.0 [...] 36.0-66.0 Lymph % 11.7 % Low 24.0-44.0 Hitchcock % 11.9 % High 2.0-8.0 Eos % 1.1 % Normal 0.0-3.0 Baso % 0.3 % Normal 0.0-1.0 Immature Granulocyte % 0.5 % Normal 0-3.0 Nucleated Red Blood Cell % 0.0 % Normal 0-0 Neutrophils # 2.8 10 Normal 1.5-8.5 Lymph # 0.4 10 Low 1.5-5.0 Hitchcock # 0.5 10 Normal 0.0-0.8 Eos # 0.0 10 Normal 0.0-0.5 Baso # 0.0 10 Normal 0.0-0.2 CBC With Differential 12/05/2020 Patient Service Ce [facility] [place] [address] [phone] White Blood Count 3.4 10 Low 4.0-10.0 [...] 36.0-66.0 Lymph % 12.8 % Low 24.0-44.0 Hitchcock % 13.7 % High 2.0-8.0 Eos % 1.2 % Normal 0.0-3.0 Baso % 0.6 % Normal 0.0-1.0 Immature Granulocyte % 0.3 % Normal 0-3.0 Nucleated Red Blood Cell % 0.0 % Normal 0-0 Neutrophils # 2.4 10 Normal 1.5-8.5 Lymph # 0.4 10 Low 1.5-5.0 Hitchcock # 0.5 10 Normal 0.0-0.8 Eos # 0.0 10 Normal 0.0-0.5 Baso # 0.0 10 Normal 0.0-0.2 Laboratory test finding 12/05/2020 [place] [address] [phone] Ferritin 108 NG/ML Normal 8-252 Total Iron Binding Capacit 12/05/2020 [place] [address] [phone] Iron (Fe) 94 g/dL Normal 50-170 Total Iron Binding Capacity 350 g/dL Normal 250-450 Percent Saturation 26.9 % Normal 13.2-45.0 PT & Aptt 12/05/2020 [place] [address] [phone] Prothrombin Time 13.3 seconds Normal 12.5-14.3 Inr 0.99 Normal 34 Partial Thromboplastin Time 29.4 seconds Normal 24.2-38.5 PT & Aptt 11/25/2020 [place] [address] [phone] Prothrombin Time 16.4 seconds High 12.5-14.3 Inr 1.29 Normal 35 Partial Thromboplastin Time 33.4 seconds Normal 24.2-38.5 Complete Blood Count 11/25/2020 [place] [address] [phone] White Blood Count 4.4 10 Normal 4.0-10.0 [...] 0-0 Comprehensive Metabolic Profil 11/25/2020 [place] [address] [phone] Glucose, Fasting 110 mg/dL High 70-100 Blood [...] 1.2-2.2 Cardiac Marker Panel 11/25/2020 [place] [address] [phone] CPK Creatine Phosphokinase 60 U/L Normal 26-19 2 CK-MB Value Mass 1.3 NG/ML Normal <3.6 MB/CK Relative Index 2.17 Normal < Or =4 37 Troponin I < 0.02 NG/ML Normal < 0.10 38 Laboratory test finding 11/25/2020 [place] [address] [phone] NT-Pro BNP 1795 pg/mL High <450 Type & Screen -Incl Blood Type,Tye,AB SC 11/25/2020 [place] [address] [phone] Blood Type O POSITIVE Normal AB Screen [...] passenger travel. Testing and International Air Travel, cdc.gov/coronavirus/2019-ncov/travelers/yetnbiy-ill-dyilcg.html 09/01/2020 NOTE: The COVID-19 assay is under Emergency Use Authorization (EUA) by the U.S. Food and Drug Administration. [facility] and [facility] are designated as high complexity laboratories by [...] Little GFR Left ESRD GFR <15 on WOMEN'S STUDIES PROFESSOR 9 THE CEA ASSAY IS PERFORMED O N THE [employer] BY CHEMILUMINESCENCE AND SHOULD NOT BE COMPARED [...] Little GFR Left ESRD GFR <15 on WOMEN'S STUDIES PROFESSOR 11 Negative results do not prec lude [...] pathogens. DISCLAIMER: Testing was performed using the [facility] SARS-CoV-2 test. This test was developed and its performance characteristics determined by [facility]. This test has not been FDA cleared [...] Little GFR Left ESRD GFR <15 on WOMEN'S STUDIES PROFESSOR 22 THE CEA ASSAY IS PERFORMED O N THE [employer] BY CHEMILUMINESCENCE AND SHOULD NOT BE COMPARED [...] Little GFR Left ESRD GFR <15 on WOMEN'S STUDIES PROFESSOR 25 TRANSFUSED PRODUCT: PACKED C ELLS COUNT: 2 26 Units are mL/min/1.73 m2 Chronic Kidney Disease Staging per NKF: Stage I & II GFR >=60 Normal to Mildly Decreased Stage III GFR 30-59 Moderately Decreased Stage IV GFR 15-29 Severely Decreased Stage V GFR <15 Very Little GFR Left ESRD GFR <15 on WOMEN'S STUDIES PROFESSOR 27 THE CEA ASSAY IS PERFORMED O N THE [employer] BY CHEMILUMINESCENCE AND SHOULD NOT BE COMPARED [...] Little GFR Left ESRD GFR <15 on WOMEN'S STUDIES PROFESSOR 29 ASSAY INFORMATION: Real Time RT-PCR NOTE: The COVID-19 assay has been cleared by the U.[place]. Food and Drug Administration under the Emergency Use Authorization (EUA). [facility] and [facility] are designated as high complexity laboratories by [...] Little GFR Left ESRD GFR <15 on WOMEN'S STUDIES PROFESSOR 32 THERAPUTIC HUMAN INR VALUES INDICATIONS NORMAL [...] Little GFR Left ESRD GFR <15 on WOMEN'S STUDIES PROFESSOR 37 DIAGNOSIS CRITERIA MMB ng/ml Relative Index (RI) NON-AMI < or = 5 N/A LEVINE ZONE > 5 < or = 4 AMI > 5 > 4 38 Troponin I Reference Interva l for Get[facility] LOCI: 99th Percentile= 0.00-0.045 ng/ml Risk Stratification: <= 0.10 ng/ml Decreased Risk for Adverse Clinical Events. 0.10-1.50 ng/ml Increased Risk for Adv erse Clinical Events. Evaluation of additional criterion and/or repeat testing in 2-6 hours is suggested to rule out myocardial damage. >= 1.50 ng/ml Indicative of Myocardial Injury. Procedures Date Code Description Status 03/28/2021 [id number] [facility] W/I 7 Days Of DC, Comm W/I 2 Dys Completed 03/23/2021 [id number] Office/Outpatient Established Mo d MDM 30-39 Min Completed 03/23/2021 [id number] Diabetic Foot Exam Completed 01/25/2021 [id number] [facility] W/I 7 Days Of DC, Comm W/I 2 Dys Completed 12/27/2020 [id number] Office/Outpatient Established Mo d MDM 30-39 Min Completed 12/19/2020 [id number] Office/Outpatient Established Mo d MDM 30-39 Min Completed 12/02/2020 [id number] [facility] W/I 7 Days Of DC, Comm W/I 2 Dys Completed Medical Devices Description No Information Available Encounters Type Date Location Provider Dx Diagnosis Office Visit 03/28/2021 11:45a Main Office Nadiya Bryan FNP D64.9 Anemia, unspecified K29.61 Other gastritis with bleedin g Office Visit 03/23/2021 3:45p Main Office Nadiya Bryan, [employer] TEST TECHNICIAN E11.6 9 Type 2 diabetes mellitus with [...] Visit 12/19/2020 2:15p Main Office Nadiya Bryan, [employer] TEST TECHNICIAN E11.6 9 Type 2 diabetes mellitus with other specified complication E78.2 Mixed hyperlipidemia I10 Essential (primary) hyperten yara 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 C18.9 Malignant neoplasm of colon, unspecified I48.91 Unspecified atrial fibrillat ion Office Visit 12/02/2020 10:30a Main Office Nadiya Bryan [employer] TEST TECHNICIAN D64.9 Anemia, unspecified E11.69 Type 2 diabetes mellitus wit h other specified complication E78.2 Mixed hyperlipidemia I10 Essential (primary) hyperten yara 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 C18.9 Malignant neoplasm of colon, unspecified I48.91 Unspecified atrial fibrillat ion Assessments Date Code Description Provider 03/28/2021 D64.9 Anemia, unspecified Deejay Bryan FNP 03/28/2021 K29.61 Other gastritis with bleeding Pl Nadiya hogan [employer] TEST TECHNICIAN 03/23/2021 E11.69 Type 2 diabetes mellitus with ot her specified complication PleSteve traceyy, [employer] TEST TECHNICIAN 03/23/2021 C18.9 Malignant neoplasm of colon, uns pecified [place] Nadiya, [employer] TEST TECHNICIAN 03/23/2021 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 PleNadiya tracey , [employer] TEST TECHNICIAN 03/23/2021 E78.2 Mixed hyperlipidemia Pleskzulma, Chayo jarocho, [employer] TEST TECHNICIAN 03/23/2021 I10 Essential (primary) hypertension [place] Nadiya, [employer] TEST TECHNICIAN 03/23/2021 I48.91 Unspecified atrial fibrillation [place] Nadiya, [employer] TEST TECHNICIAN 03/23/2021 D64.9 Anemia, unspecified [place], Mo lly, [employer] TEST TECHNICIAN 01/25/2021 D64.9 Anemia, unspecified [place], Mo lly, [employer] TEST TECHNICIAN 01/25/2021 K29.61 Other gastritis with bleeding Pl Nadiya hogan, [employer] TEST TECHNICIAN 12/27/2020 E11.69 Type 2 diabetes mellitus with ot her specified complication Anitha Gamez M.D. 12/27/2020 C18.9 Malignant neoplasm of colon, uns pecified Anitha Gamez M.D. 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 12/27/2020 D64.9 Anemia, unspecified Angela Gamez M.D. 12/19/2020 E11.69 Type 2 diabetes mellitus with ot her specified complication PleNadiya tracey, [employer] TEST TECHNICIAN 12/19/2020 E78.2 Mixed hyperlipidemia Pleskzulma, Chayo jarocho, OPT[employer] TEST TECHNICIAN 12/19/2020 I10 Essential (primary) hypertension Plesk[place]ulma Nadiya, [employer] TEST TECHNICIAN 12/19/2020 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 PleNadiya tracey , [employer] TEST TECHNICIAN 12/19/2020 C18.9 Malignant neoplasm of colon, uns pecified Plealexy Nadiya, [employer] TEST TECHNICIAN 12/19/2020 I48.91 Unspecified atrial fibrillation [place] Nadiya, [employer] TEST TECHNICIAN 12/02/2020 D64.9 Anemia, unspecified [place], Mo lly, [employer] TEST TECHNICIAN 12/02/2020 E11.69 Type 2 diabetes mellitus with [...]
--- OUTSIDE RECORDS SUMMARY | 2021-05-23 20:42 | CCD ---
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 Name Role Phone Bethany Cardenas MD Unavailable [...] Bethany Cardenas MD Unavailable Unavailable Pleskach, Nadiya QUALITY CONTROL PROJECTIONIST Unavailable Unavailable Pleskach, Nadiya QUALITY CONTROL PROJECTIONIST Unavailable Unavailable Pleskach, Nadiya QUALITY CONTROL PROJECTIONIST Unavailable Unavailable Pleskach, Nadiya QUALITY CONTROL PROJECTIONIST Unavailable Unavailable Pleskach, Nadiya QUALITY CONTROL PROJECTIONIST Unavailable Unavailable Pleskach, Nadiya QUALITY CONTROL PROJECTIONIST Unavailable Unavailable Pleskach, Nadiya QUALITY CONTROL PROJECTIONIST Unavailable Unavailable Pleskach, Nadiya QUALITY CONTROL PROJECTIONIST Unavailable Unavailable Pleskach, Nadiya QUALITY CONTROL PROJECTIONIST Unavailable Unavailable Pleskach, Nadiya QUALITY CONTROL PROJECTIONIST Unavailable Unavailable Pleskach, Nadiya QUALITY CONTROL PROJECTIONIST Unavailable Unavailable Pleskach, Ndaiya QUALITY CONTROL PROJECTIONIST Unavailable Unavailable Pleskach, Nadiya QUALITY CONTROL PROJECTIONIST Unavailable Unavailable Pleskach, Nadiya QUALITY CONTROL PROJECTIONIST Unavailable Unavailable Pleskach, Nadiya QUALITY CONTROL PROJECTIONIST Unavailable Unavailable Pleskach, Nadiya QUALITY CONTROL PROJECTIONIST Unavailable Unavailable Pleskach, Nadiya QUALITY CONTROL PROJECTIONIST Unavailable Unavailable Pleskach, Nadiya QUALITY CONTROL PROJECTIONIST Unavailable Unavailable Pleskach, Nadiya QUALITY CONTROL PROJECTIONIST Unavailable Unavailable Pleskach, Nadiya QUALITY CONTROL PROJECTIONIST Unavailable Unavailable Pleskach, Nadiya QUALITY CONTROL PROJECTIONIST Unavailable Unavailable Pleskach, Nadiya QUALITY CONTROL PROJECTIONIST Unavailable Unavailable Pleskach, Nadiya QUALITY CONTROL PROJECTIONIST Unavailable Unavailable Pleskach, Nadiya QUALITY CONTROL PROJECTIONIST Unavailable Unavailable Pleskach, Nadiya QUALITY CONTROL PROJECTIONIST Unavailable Unavailable Pleskach, Nadiya QUALITY CONTROL PROJECTIONIST Unavailable Unavailable Pleskach, Nadiya QUALITY CONTROL PROJECTIONIST Unavailable Unavailable Pleskach, Nadiya QUALITY CONTROL PROJECTIONIST Unavailable Unavailable Pleskach, Nadiya QUALITY CONTROL PROJECTIONIST Unavailable Unavailable Pleskach, Nadiya QUALITY CONTROL PROJECTIONIST Unavailable Unavailable Pleskach, Nadiya QUALITY CONTROL PROJECTIONIST Unavailable Unavailable Pleskach, Nadiya QUALITY CONTROL PROJECTIONIST Unavailable Unavailable Pleskach, Nadiya QUALITY CONTROL PROJECTIONIST Unavailable Unavailable Pleskach, Nadiya QUALITY CONTROL PROJECTIONIST Unavailable Unavailable Pleskach, Nadiya QUALITY CONTROL PROJECTIONIST Unavailable Unavailable Pleskach, Nadiya QUALITY CONTROL PROJECTIONIST Unavailable Unavailable Pleskach, Nadiya QUALITY CONTROL PROJECTIONIST Unavailable Unavailable Pleskach, Nadiya QUALITY CONTROL PROJECTIONIST Unavailable Unavailable Pleskach, Nadiya QUALITY CONTROL PROJECTIONIST Unavailable Unavailable Pleskach, Nadiya QUALITY CONTROL PROJECTIONIST Unavailable Unavailable Pleskach, Nadiya QUALITY CONTROL PROJECTIONIST Unavailable Unavailable Pleskach, Nadiya QUALITY CONTROL PROJECTIONIST Unavailable Unavailable Pleskach, Nadiya QUALITY CONTROL PROJECTIONIST Unavailable Unavailable Pleskach, Nadiya QUALITY CONTROL PROJECTIONIST Unavailable Unavailable Franco, Sosa Welsh MD Unavailable [...] Franco, Sosa Welsh MD Unavailable Unavailable Franco, Ssoa eWlsh MD Unavailable Unavailable Franco, Sosa Welsh MD [...] Franco, Sosa Welsh MD Unavailable Unavailable Franco, Ssoa Welsh MD Unavailable Unavailable Franco, Sosa Welsh [...] Unavailable Unavailable Niels Decker MD Unavailable Unavailable Niesl Decker MD Unavailable Unavailable Niels Decker MD [...] Unavailable SleNiels de leon MD Unavailable Unavailable Mark Torres PA Unavailable Unavailable Mark Torres PA Unavailable Unavailable Mark Torres PA Unavailable Unavailable Mark Torrse PA Unavailable Unavailable Mark Torres PA Unavailable [...] Unavailable Torres, L Samina PA Unavailable Unavailable Torers, L Samina PA Unavailable Unavailable Torres, L [...] Unavailable Torres, L Samina PA Unavailable Unavailable Ralph, V GEORGINA PA-C Unavailable Unavailable Ralph, V GEORGINA PA-C Unavailable Unavailable Ralph, V GEORGINA PA-C Unavailable Unavailable Ralph, V GEORGINA PA-C Unavailable Unavailable Ralph, V GEORGINA PA-C Unavailable Unavailable Ralph, V GEORGINA PA-C Unavailable Unavailable Dimas, V GEORGINA PA-C Unavailable Unavailable Dimas, V GEORGINA PA-C Unavailable Unavailable Ralph, V GEORGINA PA-C Unavailable Unavailable Ralph, V GEORGINA PA-C Unavailable Unavailable Ralph, V GEORGINA PA-C Unavailable Unavailable Ralph, V GEORGINA PA-C Unavailable Unavailable Ralph, V GEORGINA PA-C Unavailable Unavailable Ralph, V GEORGINA PA-C Unavailable Unavailable Srinivas PERALTA [...] is protected by Article 27-F of the [facility] Public Health law. If you continue you may have access to information: Regarding HIV / AIDS; Provided by facilities licensed or operated by the [facility] Office of Mental Health; or Provided by the [facility] Office for People With Developmental Disabilities. If such information is present, then the following [facility] mandated warning applies: This information has [...] law may result in a fine or long-term sentence or both. A general authorization for the release of medical or other information is NOT sufficient authorization for further disc losure. Family History Family Member Name Family Member Gender Family Member Status Date o f Status Description Data Source(s) Unknown Unknown Problem [facility] ([facility], ) Unknown Male Problem [facility] ([facility] Unknown Male Problem [facility] Unknown Male Problem [facility] Unknown Male Problem [facility] ([facility] Unknown Male Problem [facility] ([facility] Encounters Encounter Providers Location Date Indications Data Source(s ) Outpatient Attender: GEORGINA HENRIQUEZED 10/2020 02:11:07 PM EDT - 04/17/2021 03:39:45 PM EDT [facility] Outpatient Attender: Nadiya Bryan [facility] Main Office 03/28/2021 1 1:45:00 AM EDT [facility] ([facility] Outpatient Attender: Nadiya Bryan [facility] Main Office 03/23/2021 0 3:45:00 PM EDT [facility] ([facility] Outpatient Attender: Niels HENRIQUEZED 02/13 12:00:00 AM EDT - 03/06/2021 10:49:24 AM EDT [facility] Outpatient Attender: RADHA Rae/Cristi/Cory oakes/Macy 03/01/2021 01:00:00 PM EDT [facility] ([facility], ) Outpatient Attender: GEORGINA HENRIQUEZED 12:00:00 AM EDT [facility] Outpatient Attender: GEORGINA DOWNING.ED-SJP.ED 04/2021 02:46:06 PM EDT - 02/21/2021 03:43:47 PM EDT [facility] Outpatient Attender: Dmitry Cardenas MDAdmitter: Dmitry Cardenas MD [id number] 02/16/2021 04:14:45 PM EDT [facility] Outpatient Attender: Nadiya PALACIOS Main Office 01/25/2021 0 2:15:00 PM EDT [facility] ([facility] Outpatient Attender: GEORGINA TURNERP.ED-SJP.ED 12:00:00 AM EDT - 01/24/2021 01:58:05 PM EDT [facility] Outpatient Attender: RADHA Rae/Cristi/Cory oakes/Reinisabel 01/04/2021 02:00:00 PM EDT [facility] ([facility], ) Outpatient Attender: Anitha Gamez MD Main Office 12/27/2020 03:45:0 0 PM EDT [facility] ([facility] Outpatient Attender: GEORGINA DOWNING.ED-SJP.ED 02/2021 02:46:03 PM EDT - 12/20/2020 04:12:16 PM EDT [facility] Outpatient Attender: Nadiya PALACIOS Main Office 12/19/2020 0 2:15:00 PM EDT [facility] ([facility] Outpatient Attender: Nadiya PALACIOS Main Office 12/02/2020 1 0:30:00 AM EDT [facility] ([facility] Outpatient Attender: GEORGINA FRANKSED-SJP.ED 12:00:00 AM EDT - 11/29/2020 03:22:02 PM EDT [facility] Outpatient Attender: GEORGINA FRANKSED-SJP.ED 06/2021 12:00:00 AM EDT - 11/23/2020 01:51:35 PM EDT [facility] Outpatient Attender: RADHA Rae/Cristi/Cory oakes/Macy 09/19/2020 10:30:00 AM EST [facility] ([facility] Outpatient Attender: Nadiya Bryan [facility] Main Office 09/09/2020 1 0:45:00 AM EST [facility] ([facility] Outpatient Attender: Samina BELTRANSJTYSON 04/2020 12:00:00 AM EST - 06/23/2020 03:48:06 PM EST [facility] Outpatient Attender: Nadiya Bryan [facility] Main Office 06/16/2020 0 1:00:00 PM EST [facility] ([facility] Outpatient Attender: Nadiya Bryan [facility] Main Office 04/14/2020 1 0:45:00 AM EDT [facility] ([facility] Outpatient Attender: Niels BELTRANSJKelly.ED 03/15 12:00:00 AM EDT - 03/24/2020 02:11:01 PM EDT [facility] Outpatient Attender: Niels BELTRANSJAyleenED 02/12 12:00:00 AM EDT - 02/23/2020 02:22:48 PM EDT [facility] Medications Medication Brand Name Start Date Product Form Dose Route Admi nistrative Instructions Pharmacy Instructions Status Indications Reaction Description Data Source(s) 20 mEq 05/18/2021 12:00:00 AM EDT tablet,ER particles/cry stals 90 TAKE 1 TABLET (20 MEQ) TOTAL) BY MOUTH NEEDED (WHEN TAKING LASIX) TAKE 1 TABLET (20 MEQ) TOTAL) BY MOUTH NEEDED (WHEN TAKING LASIX) SOLD: 05/19/2021 [facility] [employer] [facility] [employer] pantoprazole 40 MG Delayed Release Oral Tablet [...] THREE TIMES A DAY ) SOLD: 04/01/2021 [facility] 100 mg/mL 04/01/2021 12:00:00 AM EDT suspension 840 TAKE 10ML BY MOUTH 1/2 HOUR BEFORE MEALS ( THREE TIMES A DAY ) TAKE 10ML BY MOUTH 1/2 HOUR BEFORE MEALS ( THREE TIMES A DAY ) SOLD: 04/23/2021 [facility] Sucralfate 100 MG/ML Oral Suspension sucralfate (CARAF ATE) 1 GM/10ML suspension sucralfate (CARAFATE) 1 GM/10ML suspension 04/01/2021 12:00:00 AM EDT 1 g Oral active Take 1 g by mouth 4 (four) times a day [facility] pantoprazole 40 MG Delayed Release Oral Tablet Pantoprazole Sodium 02/21/2021 12:00:00 AM EDT urmila [facility] ([facility], ) pantoprazole 40 MG Delayed Release Oral Tablet PANTOPRAZOLE SODIUM 02/21/2021 12:00:00 AM EDT tablet,delayed release (DR/EC) 60 T TOI ONE TABLET BY MOUTH IN THE MORNING 1/2 HOUR BEFORE BREAKFAST AND TAKE ONE TABLET BY MOUTH BEFORE BEDTIME TAKE ONE TABLET BY MOUTH IN THE MORNING 1/2 HOUR BEFORE BREAKFAST AND TAKE ONE TABLET BY MOUTH BEFORE BEDTIME SOLD: 03/21/2021 [facility] pantoprazole 40 MG Delayed Release Oral Tablet [...] TABLET BY MOUTH TWO TIMES A DAY [facility] 100 mg/mL 01/21/2021 12:00:00 AM [...] MEALS AND AT BEDTIME SOLD: 03/07/2021 [facility] [employer] pantoprazole 40 MG Delayed Release Oral Tablet [...] TWO TIMES A DAY SOLD: 01/21/2021 [facility] [employer] Omeprazole 20 MG Delayed Release Oral Capsule Omeprazole 01/04/2021 12:00:00 AM EDT completed [facility] ([facility], ) Sucralfate 100 MG/ML Oral Suspension Sucralfate 01/04/2021 12:00:00 A M EDT ORAL active [facility] ([facility], ) 40 mg 12/28/2020 12:00:00 AM EDT [...] (20 mg total) by mouth christine ly [facility] Bilateral leg edema potassium chloride SA (K-DUR,KLOR-CON) 20 MEQ tablet 37975-6 99-01 12/20/2020 12:00:00 AM EDT 20 meq Oral active Take 1 tablet (20 mEq total) by mouth as needed (when taking lasix) [facility] 24 HR Diltiazem Hydrochloride 240 MG Ext ended Release Oral Capsule diltiazem (CARDIZEM CD) 240 MG 24 hr capsule diltiazem (CARDIZEM CD) 240 MG 24 hr capsule 12/20/2020 12:00:00 AM EDT 240 mg Oral active Take 1 capsule (240 mg total) by mouth daily [facility] 0.5 mg 12/15/2020 12:00:00 AM [...] tablet (50 mg total) by mouth daily [facility] Sucralfate 1000 MG Oral Tablet sucralfate (CARAFATE) 1 g tablet sucralfate (CARAFATE) 1 g tablet 12/05/2020 12:00:00 AM EDT 1 g Oral aborted Take 1 g by mouth 2 (two) times a day [facility] 1 gram 12/05/2020 12:00:00 AM [...] potassium chloride SA (K-DUR,KLOR-CON) 20 MEQ tablet [id number] 99-01 11/23/2020 12:00:00 AM EDT 20 meq Oral aborted Take 1 tablet (20 mEq total) by mouth as needed (when taking lasix) [facility] Furosemide 20 MG Oral Tablet furosemide (LASIX) 20 MG tablet furosemide (LASIX) 20 MG tablet 11/23/2020 12:00:00 AM EDT 20 mg Oral aborted Bilateral leg edema Take 1 tablet (20 mg total) by mouth christine ly [facility] Bilateral leg edema Omeprazole 40 MG Delayed Release Oral Capsule Omeprazole 10/24/2020 12:00:00 AM EDT completed [facility] ([facility]) 40 mg 10/24/2020 12:00:00 AM EDT [...] 09/30/2020 12:00:00 AM EDT complet ed [facility] ([facility], ) Suprep Bowel Prep Kit Suprep Bowel Prep Kit 09/30/2020 12:00:00 AM EDT completed [facility] ([facility], ) Bisacodyl 5 MG Delayed Release Oral Tablet [Dulcolax] Dulcol ax 09/30/2020 12:00:00 AM EDT completed [facility] ([facility], ) POLYETHYLENE GLYCOL 3350 105 MG/ML / Pot assium Chloride 0.13751 MEQ/ML / Sodium Bicarbonate 0.017 MEQ/ML / Sodium Chloride 0.0479 MEQ/ML Oral Solution [GaviLyte-N] Gavilyte-N With Flavor Pack 09/30/2020 12:00:00 AM EDT completed [facility] ([facility], ) 5 mg 09/30/2020 12:00:00 AM EDT tablet,delayed release (DR/EC) 4 TAKE FOUR TABLETS BY MOUTH FOR BOWL PREP TAKE FOUR TABLETS BY MOUTH FOR BOWL PREP SOLD: 10/04/2020 Sym[employer]ified Docusate Sodium 100 MG Oral Capsule [Colace] [...] EST abo rted TAKE 1 TABLET DAILY [facility] 24 HR Diltiazem Hydrochloride 240 MG Ext ended Release Oral Capsule diltiazem (CARDIZEM CD) 240 MG 24 hr capsule diltiazem (CARDIZEM CD) 240 MG 24 hr capsule 07/05/2020 12:00:00 AM EST 240 mg Oral aborted Take 1 capsule (240 mg total) by mouth daily [facility] apixaban 2.5 MG Oral Tablet apixaban (ELIQUIS) 2.5 MG TABS tablet apixaban (ELIQUIS) 2.5 MG TABS tablet 07/05/2020 12:00:00 AM EST 2.5 mg Oral aborted Take 1 tablet (2.5 mg total) by mouth 2 (two) times a day [facility] Furosemide 20 MG Oral Tablet furosemide (LASIX) 20 MG tablet furosemide (LASIX) 20 MG tablet 07/01/2020 12:00:00 AM EST 20 mg Oral aborted Bilateral leg edema Take 1 tablet (20 mg total) by mouth bernardino ry other day [facility] Bilateral leg edema glimepiride 1 MG Oral Tablet GLIMEPIRIDE 06/26/2020 12:00:00 AM EST ta blet 45 TAKE ONE-HALF TABLET BY MOUTH EVERY MORNING FOR DIABETES TAKE ONE-HALF TABLET BY MOUTH EVERY MORNING FOR DIABETES SOLD: 06/27/2020 [facility] Crystal Remover Wipes 06/16/2020 12:00:00 AM EST active [facility] ([facility] [employer] Lub[employer]ating Deodorant 06/16/2020 12:00:00 AM EST active [facility] ([facility] Lancets (ONETOUCH DELICA PLUS [id number]) [facility] [id number] 06/05/2020 12:00:00 AM EST aborted [facility] Efren [employer] Ceraing 05/05/2020 12:00:00 AM EDT active [facility] ([facility] ONETOUCH ULTRA test strip [id number] 04/30/2020 12:00:00 AM EDT aborted [facility] Efren 2 Piece Ostomy Skin Barrier 04/14/2020 12:00:00 AM EDT active [facility] ([facility] [place] 2 Piece Drainable Ostomy Pouch 04/14/2020 12:00:00 AM EDT active [facility] ([facility] BLOOD SUGAR DIAGNOSTIC 04/05/2020 12:00:00 AM EDT strip 100 TEST TWO TIMES A DAY TEST TWO TIMES A DAY SOLD: 04/05/2020 [facility] 33 gauge 04/04/2020 12:00:00 AM EDT misc 50 USE ONCE DAILY USE ONCE DAILY SOLD: 04/04/2020 [facility] Furosemide 20 MG Oral Tablet furosemide (LASIX) 20 MG tablet furosemide (LASIX) 20 MG tablet 03/24/2020 12:00:00 AM EDT 20 mg Oral activ e Take 1 tablet (20 mg total) by mouth daily [facility] potassium chloride SA (K-DUR,KLOR-CON) 20 MEQ tablet [id number] 99-01 03/24/2020 12:00:00 AM EDT 20 meq Oral active Take 1 tablet (20 mEq total) by mouth daily [facility] 24 HR Diltiazem Hydrochloride 240 MG Ext ended Release Oral Capsule diltiazem (CARDIZEM CD) 240 MG 24 hr capsule diltiazem (CARDIZEM CD) 240 MG 24 hr capsule 03/07/2020 12:00:00 AM EDT 240 mg Oral active Take 1 capsule (240 mg total) by mouth daily [facility] 24 HR metoprolol succinate 50 MG Extende d Release Oral Tablet metoprolol succinate (TOPROL-XL) 50 MG 24 hr tablet metoprolol succinate (TOPROL-XL) 50 MG 24 hr tablet 03/07/2020 12:00:00 AM EDT 50 mg Oral activ e Take 1 tablet (50 mg total) by mouth daily [facility] Digoxin 0.125 MG Oral Tablet digoxin (LANOXIN) 125 MCG tablet digoxin (LANOXIN) 125 MCG tablet 02/23/2020 12:00:00 AM EDT 125 ug Oral act pamela Take 1 tablet (125 mcg total) by mouth daily [facility] apixaban 2.5 MG Oral Tablet apixaban (ELIQUIS) 2.5 MG TABS tablet apixaban (ELIQUIS) 2.5 MG TABS tablet 02/23/2020 12:00:00 AM EDT 2.5 mg Oral active Take 1 tablet (2.5 mg total) by mouth 2 (two) times a day [facility] Metformin hydrochloride 500 MG Oral Tablet metFORMIN ( GLUCOPHAGE) 500 MG tablet metFORMIN (GLUCOPHAGE) 500 MG tablet 500 mg Oral a borted Take 500 mg by mouth once daily [facility] glimepiride 1 MG Oral Tablet glimepiride (AMARYL) 1 MG tablet glimepiride (AMARYL) 1 MG tablet 0.5 mg Oral aborted Take 0.5 mg by mouth every morning before breakfast [facility] Ketotifen 0.25 MG/ML Ophthalmic Solution ketotifen (ZADITOR) 0.025 % ophthalmic solution ketotifen (ZADITOR) 0.025 % ophthalmic solution 1 [drp] aborted 1 drop 2 (two) times a day [facility] pantoprazole 40 MG Delayed Release Oral Tablet pantoprazole (PROTONIX) 40 MG tablet pantoprazole (PROTONIX) 40 MG tablet 40 mg Oral aborted Take 40 mg by mouth daily [facility] potassium chloride SA (K-DUR,KLOR-CON) 20 MEQ tablet [id number] 20 meq Oral aborted Take 20 mEq by mouth as needed (when taking lasix) [facility] Sucralfate 100 MG/ML Oral Suspension sucralfate (CARAF ATE) 1 GM/10ML suspension sucralfate (CARAFATE) 1 GM/10ML suspension 1 g Oral aborted Take 1 g by mouth 4 (four) times a day [facility] Insurance Providers Payer name Policy type / Coverage type Policy ID Covered democrat ID Covered democrat's relationship to payne Policy [place] Plan Information MEDICARE [id number] xxxxxxxxxxx [id number] MEDICARE [id number] [place] [id number] [facility] [id number] [facility] [id number] [facility] [id number] xxxxxxxxx [id number] INSURANCE COVID-19 COVID [place] C OVID INSURANCE COVID-19 COVID Mer[place] C OVID Medicare [facility] Medicare Primary [id number] Self [id number] [facility] Part B [id number] Self [id number] [place] Primary [id number] Self [id number] UMR O UNAVAILABLE [id number] S UNAVAILA BLE MEDICARE C [id number] S [id number] D Umr Medigap Part B [id number] 99.0 Self [id number] Medicare [place] Medicare Primary [id number] Self [id number] ANSI-Medicare Part B [id number] ANSI-Not a Secondary Insurance [id number] [employer] Part B [id number] Self [id number] Medicare [place]/NGS Medicare Primary [id number] Self [id number] [employer] Part B [id number] 99.0 Self [id number] Medicare [facility] Medicare Primary [id number] Self [id number] [employer] Part B [id number] 103.0 Self [id number] [place] Medicare Primary [id number] Self [id number] [employer] Part B [id number] 99.0 Self [id number] Medicare [place] Medicare Primary [id number] Self [id number] [employer] Med[employer] Part B [id number] Self Medicare [facility] Medicare Primary [id number] Self [employer] PPO O [id number] S [id number] R [facility] [id number] SP [id number] [employer] Medigap Part B [id number] Self MEDICARE [id number] SP [id number] UMR O [id number] S [id number] MEDICARE C [id number] S [id number] R [facility] [id number] SP [id number] UMR O [id number] S [id number] Problems, Conditions, and Diagnoses Code Display Name Description Problem Type Effective Dates Data Source(s) I48.19 Other persistent atrial fibrillation Oth er persistent atrial fibrillation Diagnosis 04/17/2021 02:11:07 PM EDT [facility] K92.2 Gastrointestinal hemorrhage, unspecified Gastrointestinal hemorrhage, unspecified Diagnosis 03/06/2021 09:50:53 AM EDT [facility] I50.33 Acute on chronic diastolic (congestive) heart failure Acute on chronic diastolic (congestive) Diagnosis 03/06/2021 09:50:53 AM EDT [facility] 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 R60.0 Localized edema Localized edema Diagnosis 12/20/2020 02:4 6:03 PM EDT [facility] R09.89 Other specified symptoms and signs involving the circulatory and respiratory systems Other specified symptoms and signs invol Diagnosis 11/23/2020 12:44:59 PM EDT [facility] R06.00 Dyspnea, unspecified Dyspnea, unspecified Diagnosis 11/23/2020 12:44:59 PM EDT [facility] I48.0 Paroxysmal atrial fibrillation Paroxysmal atrial fibri llation Diagnosis 11/23/2020 12:44:59 PM EDT [facility] I48.91 Atrial fibrillation Atrial fibrillation [...] Acute on chronic diastolic congestive heart failure [id number] 12/04/2020 12:00:00 AM ED T [facility] K92.2 Gastrointestinal bleed Gastrointestinal bleed [id number] 12/04/2020 12:00:00 AM EDT [facility] R06.00 SAUCEDO (dyspnea on exertion) SAUCEDO (dyspnea on exertion) [id number] 11/23/2020 12:00:00 AM EDT [facility] R09.89 Labile blood pressure Labile blood pressure [id number] 06/23/2020 12:00:00 AM [facility] E11.9 Type 2 diabetes mellitus wit hout complication, without long-term current use of insulin Type 2 diabetes mellitus without complic ation, without long-term current use of insulin [id number] 06/23/2020 12:00:00 AM [facility] R60.0 Bilateral leg edema Bilateral leg edema [id number] 03/24/2020 12:00:00 AM EDT [facility] Surgeries/Procedures Procedure Description Date Indications Data Source(s) ECG ROUTINE ECG W/LEAST 12 LDS W/I&R <td>POCT AMB EKG</td><td>Routine</td><td>04/17/2021 3:48 PM EDT</td><td> Persistent atrial fibrillation</td><td> </td> 04/17/2021 03:48:00 PM EDT Persistent atrial fibrillation [facility] Persistent atrial fibrillation Endoscopy Upper GI Control Hemorrhage 04/14/2021 12:00 :00 AM EDT [facility] ([facility], ) Endoscopy Upper GI W/ Ablation Of Tumors/Polyps/Lesions 04/14/2021 12:00:00 AM EDT [facility] ([facility] [place] W/I 7 Days Of DC, Comm W/I 2 Dys 03/28/2021 12:00:00 AM EDT [facility] ([facility] Diabetic Foot Exam 03/23/2021 12:00:00 AM EDT [facility] ([facility] Dr. Hood OFFICE OUTPATIENT VISIT 25 MINUTES 03/23/2021 12:00:00 AM EDT [facility] ([facility] OFFICE OUTPATIENT VISIT 15 MINUTES 03/01/2021 12:00:00 AM EDT [facility] ([facility], ) ECG ROUTINE ECG W/LEAST 12 LDS W/I&R <td>POCT AMB EKG</td><td>Routine</td><td>02/28/2021 4:41 PM EDT</td><td> Persistent atrial fibrillation</td><td> </td> 02/28/2021 04:41:00 PM EDT Persistent atrial fibrillation [place] [facility] BLOOD COUNT COMPLETE AUTO&AUTO DIFRNTL WBC COUNT <td>C BC AND DIFFERENTIAL</td><td>Routine</td><td>02/27/2021</td><td></td><td> </td> 02/27/2021 12:00:00 AM EDT [facility] IRON <td>IRON</td><td>Routine</td ><td>02/27/2021</td><td></td><td> </td> 02/27/2021 12:00:00 AM EDT [facility] BASIC METABOLIC PANEL CALCIUM TOTAL <td>BASIC METABOLI C PANEL</td><td>Routine</td><td>02/27/2021</td><td></td><td> </td> 02/27/2021 12:00:00 AM EDT [facility] [place] W/I 7 Days Of DC, Comm W/I 2 Dys 01/25/2021 12:00:00 AM EDT [facility] BLOOD COUNT COMPLETE AUTO&AUTO DIFRNTL WBC COUNT <td>C BC AND DIFFERENTIAL</td><td>Routine</td><td>01/21/2021</td><td></td><td> </td> 01/21/2021 12:00:00 AM EDT [facility] HEPATIC FUNCTION PANEL <td>HEPATIC FUNCTION PANEL</td><td>Routine</td><td>01/21/2021</td><td></td><td> </td> 01/21/2021 12:00:00 AM EDT [facility] BASIC METABOLIC PANEL CALCIUM TOTAL <td>BASIC METABOLI C PANEL</td><td>Routine</td><td>01/21/2021</td><td></td><td> </td> 01/21/2021 12:00:00 AM EDT [facility] Endoscopy Upper GI Control Hemorrhage 01/20/2021 12:00 :00 AM EDT [facility] ([facility], ) Endoscopy Upper GI W/ Ablation Of Tumors/Polyps/Lesions 01/20/2021 12:00:00 AM EDT [facility] ([facility], ) OFFICE OUTPATIENT VISIT 25 MINUTES 01/04/2021 12:00:00 AM EDT [facility] ([facility], ) THYROID STIMULATING HORMONE TSH <td>TSH</td><td>Routine</td><td>01/02/2021</td><td></td><td> </td> 01/02/2021 12:00:00 AM EDT [facility] IRON <td>IRON</td><td>Routine</td ><td>01/02/2021</td><td></td><td> </td> 01/02/2021 12:00:00 AM EDT [facility] BASIC METABOLIC PANEL CALCIUM TOTAL <td>BASIC METABOLI C PANEL</td><td>Routine</td><td>01/02/2021</td><td></td><td> </td> 01/02/2021 12:00:00 AM EDT [facility] OFFICE OUTPATIENT VISIT 25 MINUTES 12/27/2020 12:00:00 AM EDT [facility] POCT AMB EKG <td>POCT AMB EKG</td><td>Rou tracy</td><td>12/20/2020 4:33 PM EDT</td><td> Persistent atrial fibrillation</td><td> </td> 12/20/2020 04:33:00 PM EDT Persistent atrial fibrillation [facility] Persistent atrial fibrillation OFFICE OUTPATIENT VISIT 25 MINUTES 12/19/2020 12:00:00 AM EDT [facility] BLOOD COUNT COMPLETE AUTO&AUTO DIFRNTL WBC COUNT <td>C BC AND DIFFERENTIAL</td><td>Routine</td><td>12/19/2020</td><td></td><td> </td> 12/19/2020 12:00:00 AM EDT [facility] BASIC METABOLIC PANEL CALCIUM TOTAL <td>BASIC METABOLI C PANEL</td><td>Routine</td><td>12/19/2020</td><td></td><td> </td> 12/19/2020 12:00:00 AM EDT [facility] [place] W/I 7 Days Of DC, Comm W/I 2 Dys 12/02/2020 12:00:00 AM EDT [facility] ([facility] ECG ROUTINE ECG W/LEAST 12 LDS W/I&R <td>POCT AMB EKG</td><td>Routine</td><td>11/29/2020 5:43 PM EDT</td><td> Paroxysmal atrial fibrillation</td><td> </td> 11/29/2020 05:43:00 PM EDT Paroxysmal atrial fibrillation [facility] Paroxysmal atrial fibrillation BLOOD COUNT COMPLETE AUTO&AUTO DIFRNTL WBC COUNT <td>C BC AND DIFFERENTIAL</td><td>Routine</td><td>11/28/2020</td><td></td><td> </td> 11/28/2020 12:00:00 AM EDT [facility] BASIC METABOLIC PANEL CALCIUM TOTAL <td>BASIC METABOLI C PANEL</td><td>Routine</td><td>11/28/2020</td><td></td><td> </td> 11/28/2020 12:00:00 AM EDT [facility] TROPONIN QUANTITATIVE <td>TROPONIN I</td><td>Routine</td><td>11/27/2020</td><td></td><td> </td> 11/27/2020 12:00:00 AM EDT [facility] ECG ROUTINE ECG W/LEAST 12 LDS W/I&R <td>POCT AMB EKG</td><td>Routine</td><td>11/23/2020 5:22 PM EDT</td><td> Paroxysmal atrial fibrillation</td><td> </td> 11/23/2020 05:22:00 PM EDT Paroxysmal atrial fibrillation [facility] Paroxysmal atrial fibrillation Endoscopy Upper GI Biopsy 10/24/2020 12:00:00 AM EDT [facility] ([facility], ) Colonoscopy Thru Stoma W/Biopsy 10/24/2020 12:00:00 AM EDT [facility] ([facility], ) OFFICE OUTPATIENT VISIT 15 MINUTES 09/19/2020 12:00:00 AM EST [facility] ([facility], ) [place] W/I 7 Days Of DC, Comm W/I 2 Dys 09/09/2020 12:00:00 AM EST [facility] ([facility] Results ID Date Data Source [id number] 05/17/2021 09:55:00 AM EDT [facility] ([facility] Name Value Range Interpretation Code Description Data Radhika rce(s) Supporting Document(s) Packed Cells Laboratory test result [facility] ([facility] TRANSFUSED PRODUCT: PACKED CELLS COUNT: 2 ID Date Data Source [id number] 05/17/2021 09:55:00 AM EDT [facility] ([facility] [...] % 24.0-44.0 [facility] [place] % 11.3 % 2.0-8.0 [facility] ([facility] [...] 10 1.5-5.0 [facility] [place] # 0.5 10 0.0-0.8 [facility] Baso # 0.0 10 0.0-0.2 [facility] Eos # 0.1 10 0.0-0.5 [facility] ID Date Data Source [id number] 05/17/2021 09:55:00 AM EDT [facility] ([facility] Name Value Range Interpretation Code Description Data Radhika rce(s) Supporting Document(s) AB Screen (Indirect Farooq)Vis Laboratory test result [facility] ([facility] Blood Type Laboratory test result [facility] ([facility] ID Date Data Source [id number] 05/10/2021 11:04:00 AM EDT [facility] ([facility] [...] Mean Corpuscular Hemoglobin 30.0 pg 27.0-33.0 [facility] ([facility] Mean Corpuscular HGB Conc 30.7 g/dL 32.0-36.5 [facility] ([facility] Red Cell Distribution Width 17.9 % 11.5-14.5 [facility] Platelet Count, Automated 302 10 150-450 [facility] Neutrophils % 84.3 % 36.0-66.0 [facility] [place] % 8.7 % 2.0-8.0 [facility] ([facility]itha summers [...] 10 1.5-8.5 [facility] [place] # 0.5 10 0.0-0.8 [facility] Lymph # 0.3 10 1.5-5.0 [facility] Eos # 0.1 10 0.0-0.5 [facility] Baso # 0.0 10 0.0-0.2 [facility] ID Date Data Source [id number] 05/08/2021 08:43:00 AM EDT [facility] ([facility] Name Value Range Interpretation Code Description Data Radhika rce(s) Supporting Document(s) Occult Blood Laboratory test result Abnormal (applies to non-numeric results) [facility] ([facility] OCCULT BLOOD 1 POSITIVE ID Date Data Source [id number] 05/08/2021 08:43:00 AM EDT [facility] ([facility] Name Value Range Interpretation Code Description Data Radhika rce(s) Supporting Document(s) Packed Cells Laboratory test result [facility] ([facility] TRANSFUSED PRODUCT: PACKED CELLS COUNT: 1 ID Date Data Source [id number] 05/08/2021 08:43:00 AM EDT [facility] ([facility] Name Value Range Interpretation Code Description Data Radhika rce(s) Supporting Document(s) Blood Type Laboratory test result [facility] ([facility] AB Screen (Indirect Farooq)Vis Laboratory test result [facility] ([facility] ID Date Data Source [id number] 05/08/2021 08:43:00 AM EDT [facility] ([facility] [...] % 36.0-66.0 [facility] [place] % 11.2 % 2.0-8.0 [facility] ([facility]itha summers [...] 10 1.5-5.0 [facility] [place] # 0.5 10 0.0-0.8 [facility] Eos # 0.1 10 0.0-0.5 [facility] Baso # 0.0 10 0.0-0.2 [facility] ID Date Data Source [id number] 05/05/2021 01:09:00 PM EDT [facility] ([facility] Name Value Range Interpretation Code Description Data Radhika rce(s) Supporting Document(s) Reticulocyte # 119.8 10 17-77 [facility] Reticulocyte % 5.9 % 0.5-1.5 [facility] ([facility] Retic Hemoglobin Equivalent 30.7 pg 24-36 [facility] ID Date Data Source [id number] 05/05/2021 01:09:00 PM EDT [facility] ([facility] [...] MYOCARDIAL INFARCTION 2.5-3.5 ID Date Data Source [id number] 05/05/2021 01:09:00 PM EDT [facility] ([facility] Name Value Range Interpretation Code Description Data Radhika rce(s) Supporting Document(s) aPTT in Platelet poor plasma by Coagulation assay 24.9 s 25.9-37. 0 [facility] ([facility] ID Date Data Source [id number] 05/05/2021 01:09:00 PM EDT [facility] ([facility] Name Value Range Interpretation Code Description Data Radhika rce(s) Supporting Document(s) Collagen Epinephrine Laboratory test result 74-162 [facility] ([facility] <content>UNABLE TO PERFORM TEST DUE TO h ct <35%</content>
<content></content> ID Date Data Source [id number] 05/05/2021 01:09:00 PM EDT [facility] ([facility] Name Value Range Interpretation Code Description Data Radhika rce(s) Supporting Document(s) Lactate dehydrogenase [Enzymatic activit y/volume] in Serum or Plasma by Lactate to pyruvate reaction 128 U/L 84-246 [facility] Haptoglobin [Mass/volume] in Serum or Plasma 214 mg/dL 41-333 [facility] ([facility] Performed at: [address] [id number] Public Health Registrar: Matt Mcdonnell MD, Phone: [phone] Performed at: [facility] [address] [place] [address] [address], [place], [place] [id number] Public Health Registrar: Gary Youngblood MD, Phone: [phone] Performed at: [address] [id number] Public Health Registrar: Teresa Nguyen MD, Phone: [phone] ID Date Data Source [id number] 05/05/2021 01:09:00 PM EDT [facility] ([facility] [...] and its performa nce characteristics determined by [employer]. It has not been cleared or approved [...] cofactor activity; FVIII - factor VIII activity. REPLANTING MACHINE OPERATOR: For questions regarding panel interpretation, please contact Mikal Wasserman M.D. at [employer] at . DISCLAIMER These assessments and interpretations [...] (1) The National Heart, Lung and Blood [place]. The Diagnosis, Evaluation and Management of von Willebrand Disease. Lane, [place]: National Institutes of Health Publication 08-5832. 2007. Available at http://www.nhlbi.nih.gov/guidelines/vwd/. (2) Tayo WL et al. Am J Hematol. 2009; 84(6):366-370. (3) Pam M et al. Haemophilia. 2004;10(3):199-217. (4) Lety WOODRUFF et al. Haemophilia. 2004; 10(3):218-231. F8 Activity vWB For F8 Panel 71 % 50-200 [facility] ID Date Data Source [id number] 05/05/2021 09:52:00 AM EDT [facility] ([facility] [...] % 24.0-44.0 [facility] [place] % 11.5 % 2.0-8.0 [facility] ([facility]itha summers [...] 10 1.5-5.0 [facility] [place] # 0.6 10 0.0-0.8 [facility] Eos # 0.0 10 0.0-0.5 [facility] Baso # 0.0 10 0.0-0.2 [facility] ID Date Data Source [id number] 05/05/2021 09:52:00 AM EDT [facility] ([facility] Name Value Range Interpretation Code Description Data Radhika rce(s) Supporting Document(s) AB Screen (Indirect Farooq)Vis Laboratory test result [facility] ([facility] Blood Type Laboratory test result [facility] ([facility] ID Date Data Source [id number] 05/05/2021 09:52:00 AM EDT [facility] ([facility] Name Value Range Interpretation Code Description Data Radhika rce(s) Supporting Document(s) Packed Cells Laboratory test result [facility] ([facility] TRANSFUSED PRODUCT: PACKED CELLS COUNT: 2 ID Date Data Source [id number] 04/27/2021 11:17:00 AM EDT [facility] ([facility] [...] % 11.5-14.5 [facility] [place] % 12.8 % 2.0-8.0 [facility] ([facility]itha summers [...] 0-0 [facility] ([facility] [place] # 0.5 10 0.0-0.8 [facility] Baso # 0.0 10 0.0-0.2 [facility] ([facility] Eos # 0.0 10 0.0-0.5 [facility] ID Date Data Source [id number] 04/20/2021 03:39:00 PM EDT [facility] ([facility] [...] 10 150-450 [facility] [place] % 11.9 % 2.0-8.0 [facility] (Anitha summers [...] 10 0.0-0.2 [facility] ([facility] [place] # 0.5 10 0.0-0.8 [facility] ([facility] ID Date Data Source [id number] 04/18/2021 10:02:49 PM EDT [facility] Name Value Range Interpretation Code Description Data Radhika rce(s) Supporting Document(s) WBC 3.5 10*3/uL (4.1-11.0) L [facility] [place] RBC 2.39 10*6/uL (4.00-5.40) [facility] HGB 7.6 g/dL (12.0-16.0) [facility] HCT 24.3 % (36.0-47.0) [facility] MCV 101.8 fL (80.0-95.0) [facility] MCH 31.7 pg (27.0-32.0) [facility] MCHC 31.1 g/dL (32.0-36.0) [facility] RDW 19.9 % (10.5-14.5) [facility] PLT 272 10*3/uL (150-450) [facility] MPV 8.9 fL (7.1-10.7) [facility] ID Date Data Source [id number] 04/12/2021 02:14:00 PM EDT [facility] ([facility] Name Value Range Interpretation Code Description Data Radhika rce(s) Supporting Document(s) White Blood Count 4.6 10 4.0-10.0 [facility] ([facility] Red Blood Count 2.91 10 4.00-5.40 [facility] Hemoglobin 8.9 g/dL 12.0-15.5 [facility] ([facility] Hematocrit 28.8 % 36.0-47.0 [...] % 0.0-1.0 [facility] [place] % 9.4 % 2.0-8.0 [facility] Neutrophils # 3.8 10 1.5-8.5 [facility] Immature Granulocyte % 0.4 % 0-3.0 [facility] Nucleated Red Blood Cell % 0.0 % 0-0 [facility] Lymph # 0.3 10 1.5-5.0 [facility] [place] # 0.4 10 0.0-0.8 [facility] Eos # 0.0 10 0.0-0.5 [facility] Baso # 0.0 10 0.0-0.2 [facility] ID Date Data Source [id number] 04/10/2021 10:15:00 AM EDT [facility] ([facility] Name Value Range Interpretation Code Description Data [facility](s) Supporting Document(s) Coronavirus 2019 Nasopharygeal Laboratory test result [facility] ([facility] ASSAY INFORMATION: Real Time RT-PCR or T MA. Both RT-PCR and TMA are nucleic acid amplification tests (NAAT) which are molecular testing modalities and recommended by the CDC for passenger travel. Testing and International Air Travel, cdc.gov/coronavirus/2019-ncov/travelers/yxycnwh-nph-lxbztu.html 09/01/2020 NOTE: The COVID-19 assay is under Emergency Use Authorization (EUA) by the U.S. Food and Drug Administration. [facility] are designated as high complexity laboratories by the Clinical Laboratory Improvement Amendments of 1988 (CLIA) and are qualified to perform this test. Not Detected ID Date Data Source [id number] 04/10/2021 10:15:00 AM EDT [facility] Name Value Range Interpretation Code Description Data [facility](s) Supporting Document(s) SARS-CoV-2 (COVID-19) RNA [Presence] in Respiratory specimen by KELLI with probe detection Not Detected [facility] This lab was ordered by [facility] and reported by [email or web address]. ID Date Data Source [id number] 04/07/2021 09:48:00 AM EDT [facility] ([facility] Name Value Range Interpretation Code Description Data [facility](s) Supporting Document(s) Glucose, Fasting 184 mg/dL 70-100 [...] Little GFR Left</content>
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
<content></content> Chloride Level 107 meq/L 98-107 [facility] Potassium Serum 4.4 meq/L 3.5-5.1 [facility] ([facility] Calcium Level 8.9 mg/dL [...] [facility] ID Date Data Source [id number] 04/07/2021 09:48:00 AM EDT [facility] ([facility] Name Value Range Interpretation Code Description Data Radhika rce(s) Supporting Document(s) Carcinoembryonic Ag [Mass/volume] in Serum or Plasma Laboratory melly t result [facility] ([facility] THE CEA ASSAY IS PERFORMED ON THE [employer] BY CHEMILUMINESCENCE AND SHOULD NOT BE COMPARED [...] [facility] ID Date Data Source [id number] 04/07/2021 09:48:00 AM EDT [facility] ([facility] Name Value Range Interpretation Code Description Data Radhika rce(s) Supporting Document(s) Iron (Fe) 48 ug/dL 50-170 [facility] Total Iron Binding Capacity 353 ug/dL 250-450 [facility] Percent Saturation 13.6 % 13.2-45.0 [facility] ([facility] ID Date Data Source [id number] 04/07/2021 09:38:00 AM EDT [facility] ([facility] Name Value Range Interpretation Code Description Data Radhika rce(s) Supporting Document(s) White Blood Count 3.4 10 4.0-10.0 [facility] ([facility] Red Blood Count 2.12 [...] % 11.5-14.5 [facility] [place] % 10.9 % 2.0-8.0 [facility] (Anitha summers [...] 10 1.5-8.5 [facility] [place] # 0.4 10 0.0-0.8 [facility] Baso # 0.0 10 0.0-0.2 [facility] Eos # 0.0 10 0.0-0.5 [facility] ID Date Data Source [id number] 04/07/2021 09:35:00 AM EDT [facility] ([facility] Name Value Range Interpretation Code Description Data Radhika rce(s) Supporting Document(s) Packed Cells Laboratory test result [facility] ([facility] TRANSFUSED PRODUCT: PACKED CELLS COUNT: 3 ID Date Data Source [id number] 04/07/2021 09:35:00 AM EDT [facility] ([facility] Name Value Range Interpretation Code Description Data Radhika rce(s) Supporting Document(s) AB Screen (Indirect Farooq)Vis Laboratory test result [facility] ([facility] Blood Type Laboratory test result [facility] ([facility] ID Date Data Source [id number] 03/24/2021 02:00:00 PM EDT [facility] ([facility] [...] pathogens. DISCLAIMER: Testing was performed using the [employer] SARS-CoV-2 test. This test was developed and its performance characteristics determined by [employer]. This test has not been FDA [...] patient management decisions. ID Date Data Source [id number] 03/24/2021 02:00:00 PM EDT [facility] ([facility] Name Value Range Interpretation Code Description Data Radhika rce(s) Supporting Document(s) Glucose, Fasting 96 mg/dL 70-100 [facility] Blood Urea Nitrogen 35 mg/dL 7-18 [facility] ([facility] Creatinine For GFR 0.78 mg/dL 0.55-1.30 [facility] ([facility] Glomerular Filtration Rate Laboratory test result [facility] ([facility] <content>Units are mL/min/1.73 m2</content>
<content></content>
<content>Chronic Kidney Disease Staging per NKF:</content>
<content></content>
<content>Stage I & II GFR >=60 Normal to Mildly Decreased</content>
<content>Stage III GFR 30- 59 Moderately Decreased</content>
<content>Stage IV GFR 15-29 Severely Decreased</content>
<content>Stage V GFR <15 Very Little GFR Left</content>
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
<content></content> Sodium Level 141 meq/L 136-145 [facility] Potassium Serum 4.3 meq/L 3.5-5.1 [facility] Carbon Dioxide Level 24 meq/L 21-32 [facility] ([facility] Chloride Level 111 meq/L 98-107 [facility] Anion Gap 6 meq/L 8-16 [facility] Calcium Level 9.1 mg/dL 8.8-10.2 [facility] Alkaline Phosphatase 79 U/L 45-117 [facility] ([facility] Alt/SGPT 14 U/L 12-78 [facility] Ast/Sgot 10 U/L 7-37 [facility] ([facility] Total Protein 6.0 GM/DL 6.4-8.2 [facility] ([facility] Bilirubin,Total 0.8 mg/dL 0.2-1.0 [facility] Albumin 3.0 GM/DL 3.2-5.2 [facility] Albumin/Globulin Ratio 1.0 1.2-2.2 [facility] ID Date Data Source [id number] 03/24/2021 02:00:00 PM EDT [facility] Name Value Range Interpretation Code Description Data Radhika rce(s) Supporting Document(s) SARS coronavirus 2 RNA [Presence] in Res piratory specimen by KELLI with probe detection NEGATIVE [facility] This lab was ordered by [facility] a nd reported by [facility]. ID Date Data Source [id number] 03/24/2021 11:43:00 AM EDT [facility] ([facility] Name Value Range Interpretation Code Description Data Radhika rce(s) Supporting Document(s) Packed Cells Laboratory test result [facility] ([facility] TRANSFUSED PRODUCT: PACKED CELLS COUNT: 1 ID Date Data Source [id number] 03/24/2021 11:02:00 AM EDT [facility] ([facility] [...] % 24.0-44.0 [facility] [place] % 11.4 % 2.0-8.0 [facility] Baso % 0.4 % 0.0-1.0 [facility] Eos % 0.4 % 0.0-3.0 [facility] Nucleated Red Blood Cell % 0.7 % 0-0 [facility] ([facility] Neutrophils # 3.7 10 1.5-8.5 [facility] ([facility] Immature Granulocyte % 0.4 % 0-3.0 [facility] Lymph # 0.3 10 1.5-5.0 [facility] [place] # 0.5 10 0.0-0.8 [facility] Baso # 0.0 10 0.0-0.2 [facility] Eos # 0.0 10 0.0-0.5 [facility] ID Date Data Source [id number] 03/17/2021 10:56:00 AM EDT [facility] ([facility]z [...] ([facility] ID Date Data Source [id number] 03/17/2021 10:56:00 AM EDT [facility] ([facility]itha Gamez [...] [facility] Comment: Laboratory test result [facility] ([facility] Laboratory test finding (navigational concept) 61 mg/dL 0-99 [facility] ID Date Data Source [id number] 03/17/2021 10:56:00 AM EDT [facility] (Anitha Gamez [...] Severely increased: >300 ID Date Data Source [id number] 03/17/2021 10:56:00 AM EDT [facility] ([facility] Name Value Range Interpretation Code Description Data Radhika rce(s) Supporting Document(s) Hemoglobin A1c/Hemoglobin.total in Blood 4.8 % 4.8-5.6 [facility] ([facility] <content>Prediabetes: 5.7 - 6.4</content >
<content>Diabetes: >6.4</content>
<content>Glycemic control for adults with diabetes: <7.0</content>
<content></content> ID Date Data Source [id number] 03/18/2021 06:06:00 AM EDT [facility] Name Value [...] IU/L 0-32 [facility] ID Date Data Source [id number] 03/18/2021 07:05:00 AM EDT [facility] Name Value Range Interpretation Code Description Data Radhika rce(s) Supporting Document(s) Cholesterol, Total 123 mg/dL 100-199 [facility] Triglycerides 141 mg/dL 0-149 [facility] HDL Cholesterol 37 mg/dL >39 Below low normal [facility] VLDL Cholesterol Gerald 25 mg/dL 5-40 [facility] LDL Chol Calc (NIH) 61 mg/dL 0-99 [facility] ID Date Data Source [id number] 03/18/2021 10:06:00 AM EDT [facility] Name Value Range Interpretation Code Description Data Radhika rce(s) Supporting Document(s) Hemoglobin A1c 4.8 % 4.8-5.6 [facility] Prediabetes: 5.7 - 6.4 Diabetes: >6.4 Glycemic control for adults with diabetes: <7.0 ID Date Data Source [id number] 03/18/2021 03:05:00 PM EDT [facility] Name Value Range Interpretation Code Description Data Radhika rce(s) Supporting Document(s) Creatinine, Urine 120.2 mg/dL Not Estab. [facility] Albumin, Urine 20.1 ug/mL Not Estab. [facility] Alb/Creat Ratio 17 mg/g creat 0-29 [facility] No rmal: 0 - 29 Moderately increased: 30 - 300 Severely increased: >300 ID Date Data Source [id number] 03/14/2021 08:15:00 AM EDT [facility] ([facility] Name Value Range Interpretation Code Description Data Radhika rce(s) Supporting Document(s) Packed Cells Laboratory test result [facility] ([facility] TRANSFUSED PRODUCT: PACKED CELLS COUNT: 2 ID Date Data Source [id number] 03/14/2021 08:15:00 AM EDT [facility] ([facility] Name Value Range Interpretation Code Description Data Radhika rce(s) Supporting Document(s) AB Screen (Indirect Farooq)Vis Laboratory test result [facility] ([facility] Blood Type Laboratory test result [facility] ([facility] ID Date Data Source [id number] 03/14/2021 08:15:00 AM EDT [facility] ([facility]a Gamez [...] [facility] Lymph % 6.8 % 24.0-44.0 [facility] ([facility] [place] % 9.3 % 2.0-8.0 [facility] (Anitha summers [...] 10 1.5-5.0 [facility] ([facility] [place] # 0.4 10 0.0-0.8 [facility] ([facility] Eos # 0.0 10 0.0-0.5 [facility] ([facility] Baso # 0.0 10 0.0-0.2 [facility] ([facility]a [facility] ID Date Data Source [id number] 03/10/2021 11:17:00 AM EDT [facility] ([facility] Name Value Range Interpretation Code Description Data Radhika rce(s) Supporting Document(s) Carcinoembryonic Ag [Mass/volume] in Serum or Plasma Laboratory melly t result [facility] ([facility] THE CEA ASSAY IS PERFORMED ON THE [employer] BY CHEMILUMINESCENCE AND SHOULD NOT BE COMPARED [...] [facility] ID Date Data Source [id number] 03/10/2021 11:17:00 AM EDT [facility] ([facility] Name Value Range Interpretation Code Description Data Radhika rce(s) Supporting Document(s) Iron (Fe) 72 ug/dL 50-170 [facility] ([facility] Total Iron Binding Capacity 352 ug/dL 250-450 [facility] ([facility] Percent Saturation 20.5 % 13.2-45.0 [facility] (T[facility]one [facility] ID Date Data Source [id number] 03/10/2021 11:17:00 AM EDT [facility] ([facility] Name Value Range Interpretation Code Description Data Radhika rce(s) Supporting Document(s) Glucose, Fasting 166 mg/dL 70-100 [facility] ([facility] Blood Urea Nitrogen 26 mg/dL 7-18 [facility] ([facility] Creatinine For GFR 0.73 [...] Little GFR Left</content>
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
<content></content> Sodium Level 141 meq/L 136-145 [facility] ([facility] Potassium Serum 4.4 meq/L 3.5-5.1 [facility] ([facility] Carbon Dioxide Level 28 meq/L 21-32 [facility] (Srinivas [facility] Chloride Level 108 meq/L 98-107 [facility] ([facility] Anion Gap 5 meq/L 8-16 [facility] ([facility] Calcium Level 8.9 mg/dL 8.8-10.2 [facility] ([facility]ihta [facility] Alt/SGPT 13 U/L 12-78 [...] [facility] ID Date Data Source [id number] 03/10/2021 11:17:00 AM EDT [facility] (Anitha Gamez [...] % 24.0-44.0 [facility] ([facility] [place] % 12.9 % 2.0-8.0 [facility] (Anitha summers [...] 10 0.0-0.5 [facility] ([facility] [place] # 0.4 10 0.0-0.8 [facility] ([facility] Baso # 0.0 10 0.0-0.2 [facility] ([facility] ID Date Data Source [id number] 02/28/2021 08:10:00 AM EDT [facility] ([facility] Name Value Range Interpretation Code Description Data Radhika rce(s) Supporting Document(s) AB Screen (Indirect Farooq)Vis Laboratory test result [facility] ([facility] Blood Type Laboratory test result [facility] ([facility] ID Date Data Source [id number] 02/28/2021 08:10:00 AM EDT [facility] ([facility] Name Value Range Interpretation Code Description Data Radhika rce(s) Supporting Document(s) Packed Cells Laboratory test result [facility] ([facility] TRANSFUSED PRODUCT: PACKED CELLS COUNT: 2 ID Date Data Source [id number] 02/27/2021 09:45:00 AM EDT [facility] (Anitha Gamez [...] % 0.0-3.0 [facility] ([facility] [place] % 11.6 % 2.0-8.0 [facility] (Anitha summers [...] 10 0.0-0.2 [facility] ([facility] [place] # 0.7 10 0.0-0.8 [facility] ([facility] ID Date Data Source [id number] 02/27/2021 09:45:00 AM EDT [facility] ([facility] Name Value Range Interpretation Code Description Data Radhika rce(s) Supporting Document(s) Ferritin [Mass/volume] in Serum or Plasma 1039 ng/mL 8-252 [facility] ([facility] ID Date Data Source [id number] 02/27/2021 09:45:00 AM EDT [facility] ([facility] Name Value Range Interpretation Code Description Data Radhika rce(s) Supporting Document(s) Iron (Fe) 79 ug/dL 50-170 [facility] ([facility] Total Iron Binding Capacity 384 ug/dL 250-450 [facility] ([facility] Percent Saturation 20.6 % 13.2-45.0 [facility] (Tyrone [facility] ID Date Data Source [id number] 02/27/2021 09:45:00 AM EDT [facility] (Anitha Gamez [...] Little GFR Left</content>
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
<content></content> ID Date Data Source [id number] 02/27/2021 09:45:00 AM EDT [facility] ([facility] Name Value Range Interpretation Code Description Data Radhika rce(s) Supporting Document(s) Urea nitrogen [Mass/volume] in Serum or Plasma 26 mg/dL 7-18 [facility] ([facility] ID Date Data Source [id number] 02/27/2021 09:45:00 AM EDT [facility] ([facility]) Name Value Range Interpretation Code Description Data Radhika rce(s) Supporting Document(s) Red Blood Count 2.00 10 4.00-5.40 Below low normal [facility] ([facility]) White Blood Count 6.0 10 4.0-10.0 Normal (applies to non-numeri c results) [facility] ([facility]) Hematocrit 22.5 % 36.0-47.0 Below low normal [facility] ( [facility]) Hemoglobin 6.5 g/dL 12.0-15.5 Below lower panic limits [facility] ([facility]) Mean Corpuscular Hemoglobin 32.5 pg 27.0-33.0 Norm al (applies to non-numeric results) [facility] ([facility]) Mean Corpuscular Volume 112.5 fl 80.0-96.0 Above high normal [facility] ([facility]) Mean Corpuscular HGB Conc 28.9 g/dL 32.0-36.5 Below low normal [facility] ([facility]) Platelet Count, Automated 316 10 150-450 Normal (applies to non-numeric results) [facility] ([facility]) Red Cell Distribution Width 24.1 % 11.5-14.5 Above high normal [facility] ([facility]) Lymph % 4.7 % 24.0-44.0 Below low normal [facility] ( [facility]) Neutrophils % 82.1 % 36.0-66.0 Above high normal [facility] ([facility]) [place] % 11.6 % 2.0-8.0 Above high normal [facility] ([facility]) Eos % 0.5 % 0.0-3.0 Normal (applies to non-numeric resul ts) [facility] ([facility]) Immature Granulocyte % 0.8 % 0-3.0 Normal (applies to non-n umeric results) [facility] ([facility]) Baso % 0.3 % 0.0-1.0 Normal (applies to non-numeric resul ts) [facility] ([facility]) Neutrophils # 4.9 10 1.5-8.5 Normal (applies to non-numeric re sults) [facility] ([facility]) Nucleated Red Blood Cell % 0.3 % 0-0 Above high normal [facility] ([facility]) Lymph # 0.3 10 1.5-5.0 Below low normal [facility] ( [facility]) [place] # 0.7 10 0.0-0.8 Normal (applies to non-numeric resul ts) [facility] ([facility]) Eos # 0.0 10 0.0-0.5 Normal (applies to non-numeric resul ts) [facility] ([facility]) Baso # 0.0 10 0.0-0.2 Normal (applies to non-numeric resul ts) [facility] ([facility]) ID Date Data Source [id number] 02/27/2021 09:45:00 AM EDT [facility] Name Value Range Interpretation Code Description Data Radhika rce(s) Supporting Document(s) Ferritin [Mass/volume] in Serum or Plasma 1039 ng/mL 8-252 Above high normal [facility] ID Date Data Source [id number] 02/27/2021 09:45:[address] [facility] ([facility]) Name Value Range Interpretation Code Description Data Radhika rce(s) Supporting Document(s) Iron (Fe) 79 ug/dL 50-170 Normal (applies to non-numeric resul ts) [facility] ([facility]) Total Iron Binding Capacity 384 ug/dL 250-450 Norm al (applies to non-numeric results) [facility] Percent Saturation 20.6 % 13.2-45.0 Normal (applies to non-numer ic results) [facility] ([facility]) ID Date Data Source [id number] 02/27/2021 09:45:00 AM EDT [facility] Name Value Range Interpretation Code Description Data Radhika rce(s) Supporting Document(s) Creatinine For GFR 0.76 mg/dL 0.55-1.30 Normal (applies to non -numeric results) [facility] ([facility]) Glomerular Filtration Rate Laboratory test result Normal (applies to non- numeric results) [facility] ([facility]) <content>Units are mL/min/1.73 m2</content>
<content></content>
<content>Chronic Kidney Disease Staging per NKF:</content>
<content></content>
<content>Stage I & II GFR >=60 Normal to Mildly Decreased</content>
<content>Stage III GFR 30- 59 Moderately Decreased</content>
<content>Stage IV GFR 15-29 Severely Decreased</content>
<content>Stage V GFR <15 Very Little GFR Left</content>
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
<content></content> ID Date Data Source [id number] 02/27/2021 09:45:00 AM EDT [facility] ([facility]) Name Value Range Interpretation Code Description Data Radhika rce(s) Supporting Document(s) Urea nitrogen [Mass/volume] in Serum or Plasma 26 mg/dL 7-18 Above high normal [facility] ([facility]) ID Date Data Source [id number] 02/10/2021 08:41:00 AM EDT [facility] ([facility] Name Value Range Interpretation Code Description Data Radhika rce(s) Supporting Document(s) AB Screen (Indirect Farooq)Vis Laboratory test result [facility] ([facility] Blood Type Laboratory test result [facility] ([facility] ID Date Data Source [id number] 02/10/2021 08:41:00 AM EDT [facility] ([facility] Name Value Range Interpretation Code Description Data Radhika rce(s) Supporting Document(s) Packed Cells Laboratory test result [facility] ([facility] TRANSFUSED PRODUCT: PACKED CELLS COUNT: 2 ID Date Data Source [id number] 02/09/2021 10:34:00 AM EDT [facility] (Anitha Gamez [...] Corpuscular HGB Conc 29.3 g/dL 32.0-36.5 [facility] ([facility]a [facility] Red Cell Distribution Width 18.6 % 11.5-14.5 [facility] ([facility] Neutrophils % 80.8 % 36.0-66.0 [facility] ([facility] Lymph % 7.2 % 24.0-44.0 [facility] ([facility] Platelet Count, Automated 283 10 150-450 [facility] ([facility] [place] % 10.0 % 2.0-8.0 [facility] (Anitha summers [...] 10 1.5-5.0 [facility] ([facility] [place] # 0.4 10 0.0-0.8 [facility] ([facility] Eos # 0.0 10 0.0-0.5 [facility] ([facility] Baso # 0.0 10 0.0-0.2 [facility] ([facility] ID Date Data Source [id number] 01/27/2021 01:12:00 PM EDT [facility] ([facility] Name Value Range Interpretation Code Description Data Radhika rce(s) Supporting Document(s) White Blood Count 4.2 10 4.0-10.0 [facility] (Chery [facility] Red Blood Count 3.81 10 4.00-5.40 [facility] ([facility] Hemoglobin 11.2 g/dL 12.0-15.5 [facility] ([facility] orellana [facility] Mean Corpuscular Volume 95.5 fl [...] % 24.0-44.0 [facility] ([facility] [place] % 14.6 % 2.0-8.0 [facility] (Anitha summers [...] 10 1.5-8.5 [facility] ([facility] [place] # 0.6 10 0.0-0.8 [facility] ([facility] Lymph # 0.6 10 1.5-5.0 [facility] (Anitha A. Krystian liams[facility] Baso # 0.0 10 0.0-0.2 [facility] ([facility] Eos # 0.1 10 0.0-0.5 [facility] ([facility] ID Date Data Source [id number] 01/27/2021 01:12:00 PM EDT [facility] (Anitha Gamez [...] Little GFR Left</content>
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
<content></content> Creatinine For GFR 0.71 mg/dL 0.55-1.30 [...] [facility] ID Date Data Source [id number] 01/27/2021 01:12:00 PM EDT [facility] ([facility] Name Value Range Interpretation Code Description Data Radhika rce(s) Supporting Document(s) Ferritin [Mass/volume] in Serum or Plasma 39 ng/mL 8-252 [facility] ([facility] Carcinoembryonic Ag [Mass/volume] in Serum or Plasma 0.5 ng/mL [facility] ([facility] THE CEA ASSAY IS PERFORMED ON THE [employer] BY CHEMILUMINESCENCE AND SHOULD NOT BE COMPARED INTERCHANGEABLY WITH OTHER METHODS. IT SHOULD NOT BE USED ALONE A SCREENING TEST OR DIAGNOSIS FOR THE PRESENCE OR ABSENCE OF MALIGNANT DISEASE. PREDICTIONS OF DISEASE RECURRENCE SHOULD NOT BE BASED SOLELY ON VALUES OBTAINED FROM SERIAL PATIENT SERUM VALUES. ID Date Data Source [id number] 01/27/2021 01:12:00 PM EDT [facility] ([facility] Name Value Range Interpretation Code Description Data Radhika rce(s) Supporting Document(s) Iron (Fe) 59 ug/dL 50-170 [facility] ([facility] Total Iron Binding Capacity 397 ug/dL 250-450 [facility] ([facility] Percent Saturation 14.9 % 13.2-45.0 [facility] (Tyrone [facility] ID Date Data Source [id number] 01/20/2021 11:42:00 AM EDT [facility] ([facility] Name Value Range Interpretation Code Description Data Radhika e(s) Supporting Document(s) Blood Type Laboratory test result [facility] ([facility] AB Screen (Indirect Farooq)Vis Laboratory test result [facility] ([facility] ID Date Data Source [id number] 01/20/2021 11:42:00 AM EDT [facility] ([facility] Name Value Range Interpretation Code Description Data Radhkia rce(s) Supporting Document(s) Creatinine For GFR 0.69 [...] Little GFR Left</content>
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
<content></content> ID Date Data Source [id number] 01/20/2021 11:42:00 AM EDT [facility] ([facility] Name Value Range Interpretation Code Description Data Radhika rce(s) Supporting Document(s) Urea nitrogen [Mass/volume] in Serum or Plasma 21 mg/dL 7-18 [facility] ([facility] ID Date Data Source [id number] 01/20/2021 11:42:00 AM EDT [facility] (Anitha Gamez [...] [facility] ID Date Data Source [id number] 01/16/2021 09:50:00 AM EDT [facility] ([facility] Name Value Range Interpretation Code Description Data Radhika rce(s) Supporting Document(s) Coronavirus 2019 Nasopharygeal Laboratory test result [facility] ([facility] ASSAY INFORMATION: Real Time RT-PCR NOTE: The COVID-19 assay has been cleared by the U.S. Food and Drug Administration under the Emergency Use Authorization (EUA). [facility] are designated as high complexity laboratories by the Clinical Laboratory Improvement Amendments of 1988(CLIA) and are qualified to perform this test. Not Detected ID Date Data Source [id number] 01/03/2021 03:13:00 PM EDT [facility] ([facility] Name Value Range Interpretation Code Description Data Radhika rce(s) Supporting Document(s) Packed Cells Laboratory test result [facility] ([facility] TRANSFUSED PRODUCT: PACKED CELLS COUNT: 1 ID Date Data Source [id number] 01/03/2021 03:13:00 PM EDT [facility] ([facility] Name Value Range Interpretation Code Description Data Radhika rce(s) Supporting Document(s) AB Screen (Indirect Farooq)Vis Laboratory test result [facility] ([facility] Blood Type Laboratory test result [facility] ([facility] ID Date Data Source [id number] 01/02/2021 03:58:00 PM EDT [facility] ([facility] Name Value Range Interpretation Code Description Data Radhika rce(s) Supporting Document(s) Iron (Fe) 55 ug/dL 50-170 [facility] ([facility] Total Iron Binding Capacity 398 ug/dL 250-450 [facility] ([facility] Percent Saturation 13.8 % 13.2-45.0 [facility] (Tyrone [facility] ID Date Data Source [id number] 01/02/2021 03:58:00 PM EDT [facility] (Anitha Gamez [...] Little GFR Left</content>
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
<content></content> Chloride Level 105 meq/L 98-107 [facility] [...] [facility] ID Date Data Source [id number] 01/02/2021 03:58:00 PM EDT [facility] (Anitha Gamez [...] [facility] ID Date Data Source [id number] 01/02/2021 03:58:00 PM EDT [facility] (Anitha Gamez [...] 10 150-450 [facility] ([facility] [place] % 13.1 % 2.0-8.0 [facility] (Anitha summers [...] ENT ([facility] Lymph # 0.5 10 1.5-5.0 [facility] ([facility] [place] # 0.6 10 0.0-0.8 [facility] ([facility] Baso # 0.0 10 0.0-0.2 [facility] ([facility] Eos # 0.0 10 0.0-0.5 [facility] ([facility] ID Date Data Source [id number] 12/23/2020 02:21:00 PM EDT [facility] ([facility] Name Value Range Interpretation Code Description Data Radhika rce(s) Supporting Document(s) Troponin I.cardiac [Mass/volume] in Serum or Plasma 0.01 ng/mL 0.00-0 .08 [facility] ([facility] ID Date Data Source [id number] 12/23/2020 02:19:00 PM EDT [facility] (Anitha Gamez [...] [facility] ID Date Data Source [id number] 12/23/2020 02:03:00 PM EDT [facility] ([facility] Name Value Range Interpretation Code Description Data Radhika rce(s) Supporting Document(s) Lactate [Mass/volume] in Serum or Plasma 0.8 mmol/L 0.4-2.0 [facility] ([facility] Y/N query for Sepsis Lactate Rule: Y Lipoprotein lipase [Enzymatic activity/volume] in Serum or Plasm a 73 U/L 73-393 [facility] ([facility] ID Date Data Source [id number] 12/23/2020 02:03:00 PM EDT [facility] ([facility] Name Value Range Interpretation Code Description Data [facility](s) Supporting Document(s) Ast/Sgot 13 U/L 7-37 [facility] [...] [facility] ID Date Data Source [id number] 12/23/2020 02:03:00 PM EDT [facility] ([facility] Name Value Range Interpretation Code Description Data [facility](s) Supporting Document(s) Prothrombin Time 13.3 s 12.5-14.3 [...] [facility] ID Date Data Source [id number] 12/23/2020 02:03:00 PM EDT [facility] (Anitha Gamez [...] % 24.0-44.0 [facility] ([facility] [place] % 11.9 % 2.0-8.0 [facility] ([facility]itha A. Krystian [facility] Eos % 0.9 % 0.0-3.0 [facility] ([facility] Immature Granulocyte % 0.4 % [...] 10 0.0-0.5 [facility] ([facility] [place] # 0.5 10 0.0-0.8 [facility] ([facility] Baso # 0.0 10 0.0-0.2 [facility] ([facility] ID Date Data Source [id number] 12/19/2020 02:59:00 PM EDT [facility] (Anitha Gamez [...] Distribution Width 16.2 % 11.5-14.5 [facility] ([facility] Platelet Count, Automated 241 10 150-450 [facility] ([facility] Lymph % 11.7 % 24.0-44.0 [facility] ([facility] Neutrophils % 74.5 % 36.0-66.0 [facility] ([facility] Eos % 1.1 % 0.0-3.0 [facility] ([facility] [place] % 11.9 % 2.0-8.0 [facility] (Anitha summers [...] 10 1.5-8.5 [facility] ([facility] [place] # 0.5 10 0.0-0.8 [facility] ([facility] Baso # 0.0 10 0.0-0.2 [facility] ([facility] Eos # 0.0 10 0.0-0.5 [facility] ([facility] ID Date Data Source [id number] 12/06/2020 10:00:32 AM EDT [facility] INFORMATIONPatient MRN Name Date of Age Gend*PT [id number] Meron Rico 1940 80 years F ---PT Location Admission Date/Time Visit ID Attending Provider --- --- --- --- EPI ID CSN Admitting P ian [id number] ---Addended by: GEORGINA JENKINS on: 12/06/2020 10:00 AM Modules accepted: Orders Name Value Range Interpretation Code Description Data Radhika rce(s) Supporting Document(s) ID Date Data Source [id number] 12/05/2020 04:32:00 PM EDT [facility] ([facility] Name Value Range Interpretation Code Description Data Radhika rce(s) Supporting Document(s) Inr 0.99 [facility] ([facility] [...] [facility] ID Date Data Source [id number] 12/05/2020 04:32:00 PM EDT [facility] ([facility] Name Value Range Interpretation Code Description Data Radhika rce(s) Supporting Document(s) Iron (Fe) 94 ug/dL 50-170 [facility] ([facility] Total Iron Binding Capacity 350 ug/dL 250-450 [facility] ([facility] Percent Saturation 26.9 % 13.2-45.0 [facility] ([facility] ID Date Data Source [id number] 12/05/2020 04:32:00 PM EDT [facility] ([facility] Name Value Range Interpretation Code Description Data Radhika rce(s) Supporting Document(s) Ferritin [Mass/volume] in Serum or Plasma 108 ng/mL 8-252 [facility] ([facility] ID Date Data Source [id number] 12/05/2020 04:32:00 PM EDT [facility] (Anitha Gamez [...] 10 150-450 [facility] ([facility] [place] % 13.7 % 2.0-8.0 [facility] (Anitha summers [...] 10 1.5-5.0 [facility] ([facility] [place] # 0.5 10 0.0-0.8 [facility] ([facility] Eos # 0.0 10 0.0-0.5 [facility] ([facility] Baso # 0.0 10 0.0-0.2 [facility] ([facility] ID Date Data Source [id number] 11/26/2020 03:53:00 AM EDT [facility] FASTING: UNKNOWNReceived: 11/25/2020 at 12:06:00 QPT: [facility], [address], [address] [place], [phone], Levi Garcia MD Received: 11/25/2020 at 12:06:00 QPT : [facility], [address], [address] [place], [address], Levi Garcia MD Received: 11/25/2020 at 12:06:00 QPT : [facility], [address], [address] [place], [address], Levi Garcia MD Received: 11/25/2020 at 12:06:00 QPT : [facility], [address], [address] [place] [address], [phone], Levi Garcia MD Name Value Range Interpretation [...] is approximately 13% higher for peopleidentified as -Australian. eGFR NON-AFR. CONG[place]ESE 82 mL/min/1.73m2 > OR = 60 Normal [...] normal [facility] ID Date Data Source [id number] 11/26/2020 03:53:00 AM EDT [facility] FASTING: UNKNOWNReceived: 11/25/2020 at 12:06:00 QPT: [facility], [address] [facility], [address] [place] [address], [phone], Levi Garcia MD Received: 11/25/2020 at 12:06:00 QPT : [facility], [address] [place] [address], [phone], Levi Garcia MD Received: 11/25/2020 at 12:06:00 QPT : [facility], [address] , [address] [place] [address], [phone], Levi Garcia MD Received: 11/25/2020 at 12:06:00 QPT : [facility], [address] [place] [address], [phone], Levi Garcia MD Name Value Range Interpretation [...] in Blood by Automated count 3654 cells/uL [id number] Normal (applies to non-numeric results) [facility] [...] + [facility] ID Date Data Source [id number] 11/26/2020 03:53:00 AM EDT [facility] FASTING: UNKNOWNReceived: 11/25/2020 at 12:06:00 QPT: [facility], [address], [address] [place], [address], Levi Garcia MD Received: 11/25/2020 at 12:06:00 QPT : [facility], [address], [address] [place], [phone] MD Received: 11/25/2020 at 12:06:00 QPT : [facility], [address], [address] [place] [address], [phone], Levi Garcia MD Received: 11/25/2020 at 12:06:00 QPT : [facility], [address], [address] [place] [address], [phone], Levi Garcia MD Name Value Range Interpretation Code Description Data Radhika rce(s) Supporting Document(s) Natriuretic peptide B [Mass/volume] in Serum or Plasma [facility] TEST NOT PERFORMEDNo suitable specimen r eceived. ID Date Data Source [id number] 11/26/2020 03:53:00 AM EDT [facility] FASTING: UNKNOWNReceived: 11/25/2020 at 12:06:00 QPT: [facility], [address], [address] [place], [phone] MD Received: 11/25/2020 at 12:06:00 QPT : [facility], [address], [address] [place] [address], [phone] MD Received: 11/25/2020 at 12:06:00 QPT : [facility], [address], [address] [place], [phone] MD Received: 11/25/2020 at 12:06:00 QPT : [facility], [address], [address] [facility], [place], [phone], Levi Garcia MD Name Value Range Interpretation Code Description Data Radhika rce(s) Supporting Document(s) Digoxin [Mass/volume] in Serum or Plasma 1.1 mcg/L 0.8-2.0 Normal (applies to non-numeric results) [facility] [place] Anti-Digoxin (Digibind(R)) in serum/ plasma ofpatients under toxicity therapy may interferewith the digoxin immunoassay.NO COLLECTION DATE RECEIVED. WE HAVE USEDTHE DATE THE SPECIMEN WAS RECEIVED BY [facility] THE COLLECTION DATE. IF THISIS INCORRECT, PLEASE CONTACT CLIENT SERVICES.PHONE NUMBER: [phone] ID Date Data Source [id number] 11/25/2020 04:33:00 PM EDT [facility] ([facility]itha [facility] [...] [facility] ID Date Data Source [id number] 11/25/2020 04:33:00 PM EDT [facility] Name Value Range Interpretation Code Description Data Radhika rce(s) Supporting Document(s) SARS-CoV-2 (COVID 19) NEGATIVE - SARS-CoV-2 (COVID19) [facility] This lab was ordered by [facility] a nd reported by [facility]. ID Date Data Source [id number] 11/25/2020 04:30:00 PM EDT [facility] ([facility] Name Value Range Interpretation Code Description Data Radhika rce(s) Supporting Document(s) Blood Type Laboratory test result [facility] AB Screen (Indirect Farooq)Vis Laboratory test result [facility] ([facility] ID Date Data Source [id number] 11/25/2020 04:30:00 PM EDT [facility] ([facility] Name Value Range Interpretation Code Description [facility]) Natriuretic peptide.B prohormone N-Terminal [Mass/volu me] in Serum or Plasma 1795 pg/mL [facility] ID Date Data Source [id number] 11/25/2020 04:30:00 PM EDT [facility] ([facility] Name Value Range Interpretation Code Description Data [facility](s) Supporting Document(s) CPK Creatine Phosphokinase 60 U/L [...] <content>Troponin I Reference Interval f or Siemens Priddy LOCI:</content>
<content></content>
<content>99th Percentile= 0.00-0.045 ng/ml</content>
<content></content>
<content>Risk Stratification:</content>
<content><= 0.10 ng/ml Decreased Risk for Adverse Clinical</content>
<content>Events.</content>
<content>0.10-1.50 ng/ml Increased Risk for Adverse Clinical</content>
<content>Events. Evaluation of additional</content>
<content>criterion and/or repeat testing in 2-6</content>
<content>hours is suggested to rule out myocardial</content>
<content>damage.</content>
<content>>= 1.50 ng/ml Indicative of Myocardial Injury.</content>
<content></content> ID Date Data Source [id number] 11/25/2020 04:30:00 PM EDT [facility] (Anitha Gamez [...] Little GFR Left</content>
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
<content></content> Blood Urea Nitrogen 22 mg/dL 7-18 [...] [facility] ID Date Data Source [id number] 11/25/2020 04:30:00 PM EDT [facility] ([facility]itha Gamez [...] [facility] ID Date Data Source [id number] 11/25/2020 08:56:46 PM EDT [facility] Name Value Range Interpretation Code Description Data Radhika rce(s) Supporting Document(s) DIGOXIN 1.2 ng/mL (0.8-2.0) [facility] ID Date Data Source [id number] 11/07/2020 02:18:00 PM EDT [facility] ([facility] Name Value Range Interpretation Code Description Data Radhika rce(s) Supporting Document(s) Ferritin [Mass/volume] in Serum or Plasma 207 ng/mL 8-252 [facility] ([facility] ID Date Data Source [id number] 11/07/2020 02:18:00 PM EDT [facility] ([facility] Name Value Range Interpretation Code Description Data Radhika rce(s) Supporting Document(s) Iron (Fe) 43 ug/dL 50-170 [facility] ([facility] Total Iron Binding Capacity 302 ug/dL 250-450 [facility] Percent Saturation 14.2 % 13.2-45.0 [facility] ([facility] ID Date Data Source [id number] 11/07/2020 02:18:00 PM EDT [facility] ([facility]itha Game[facility] [...] Little GFR Left</content>
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
<content></content> Creatinine For GFR 0.72 mg/dL 0.55-1.30 [...] [facility] ID Date Data Source [id number] 11/07/2020 02:18:00 PM EDT [facility] ([facility]itha Game[facility] [...] % 24.0-44.0 [facility] [place] % 13.3 % 2.0-8.0 [facility] (Anitha summers [...] 10 0.0-0.5 [facility] [place] # 0.4 10 0.0-0.8 [facility] Lymph # 0.3 10 1.5-5.0 [facility] Baso # 0.0 10 0.0-0.2 [facility] ID Date Data Source [id number] 10/21/2020 02:17:00 PM EDT [facility] (Anitha Gamez [...] % 24.0-44.0 [facility] [place] % 13.0 % 2.0-8.0 [facility] (Anitha summers [...] 10 1.5-5.0 [facility] [place] # 0.4 10 0.0-0.8 [facility] Baso # 0.0 10 0.0-0.2 [facility] ID Date Data Source [id number] 10/19/2020 10:05:00 AM [facility]T [facility] Name Value Range Interpretation Code Description Data Radhika rce(s) Supporting Document(s) SARS-CoV-2 (COVID-19) RNA [Presence] in Respiratory specimen by KELLI with probe detection Not Detected [facility] This lab was ordered by [facility] and reported by [email or web address]. ID Date Data Source [id number] 10/11/2020 02:25:00 PM EDT [facility] (Anitha Gamez [...] % 36.0-66.0 [facility] [place] % 14.5 % 2.0-8.0 [facility] (Anitha summers [...] 0-0 [facility] ([facility] [place] # 0.5 10 0.0-0.8 [facility] Baso # 0.0 10 0.0-0.2 [facility] Eos # 0.1 10 0.0-0.5 [facility] ID Date Data Source [id number] 09/26/2020 02:59:00 PM EDT [facility] ([facility] Name Value Range Interpretation Code Description Data Radhika rce(s) Supporting Document(s) Carcinoembryonic Ag [Mass/volume] in Serum or Plasma 0.6 ng/mL [facility] THE CEA ASSAY IS PERFORMED ON THE Zuse BY CHEMILUMINESCENCE AND SHOULD NOT BE COMPARED [...] [facility] ID Date Data Source [id number] 09/26/2020 02:59:00 PM EDT [facility] ([facility] Name Value Range Interpretation Code Description Data Radhika rce(s) Supporting Document(s) Iron (Fe) 56 ug/dL 50-170 [facility] Total Iron Binding Capacity 327 ug/dL 250-450 [facility] Percent Saturation 17.1 % 13.2-45.0 [facility] ([facility] ID Date Data Source [id number] 09/26/2020 02:59:00 PM EDT [facility] (Anitha Gamez [...] Little GFR Left</content>
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
<content></content> Potassium Serum 4.2 meq/L 3.5-5.1 [facility] [...] [facility] ID Date Data Source [id number] 09/26/2020 02:59:00 PM EDT [facility] (Anitha Gamez [...] % 24.0-44.0 [facility] [place] % 12.8 % 2.0-8.0 [facility] (Anitha summers [...] 10 0.0-0.5 [facility] [place] # 0.4 10 0.0-0.8 [facility] Baso # 0.0 10 0.0-0.2 [facility] ID Date Data Source [id number] 09/06/2020 12:06:00 PM EST [facility] Name Value Range Interpretation Code Description Data Radhika rce(s) Supporting Document(s) SARS coronavirus 2 RNA [Presence] in Res piratory specimen by KELLI with probe detection NEGATIVE [facility] This lab was ordered by [facility] a nd reported by [facility]. ID Date Data Source [id number] 08/17/2020 11:54:00 AM EST [facility] ([facility] Name Value Range Interpretation Code Description Data Radhika rce(s) Supporting Document(s) Occult Blood Laboratory test result Abnormal (applies to non-numeric results) [facility] OCCULT BLOOD 1 POSITIVE ID Date Data Source [id number] 08/17/2020 11:07:00 AM EST [facility] Name Value Range Interpretation Code Description Data Radhika rce(s) Supporting Document(s) Ferritin [Mass/volume] in Serum or Plasma 36 ng/mL 8-252 [facility] Carcinoembryonic Ag [Mass/volume] in Serum or Plasma Laboratory melly t result [facility] THE CEA ASSAY IS PERFORMED ON THE Zuse BY CHEMILUMINESCENCE AND SHOULD NOT BE COMPARED INTERCHANGEABLY WITH OTHER METHODS. IT SHOULD NOT BE USED ALONE A SCREENING TEST OR DIAGNOSIS FOR THE PRESENCE OR ABSENCE OF MALIGNANT DISEASE. PREDICTIONS OF DISEASE RECURRENCE SHOULD NOT BE BASED SOLELY ON VALUES OBTAINED FROM SERIAL PATIENT SERUM VALUES. ID Date Data Source [id number] 08/17/2020 11:07:00 AM EST [facility] Name Value Range Interpretation Code Description Data Radhika rce(s) Supporting Document(s) Iron (Fe) 29 ug/dL 50-170 [facility] Total Iron Binding Capacity 360 ug/dL 250-450 [facility] Percent Saturation 8.1 % 13.2-45.0 [facility] ([facility] ID Date Data Source [id number] 08/17/2020 11:07:00 AM EST [facility] (Anitha Gamez [...] Little GFR Left</content>
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
<content></content> Potassium Serum 4.2 meq/L 3.5-5.1 [facility] ([facility] Sodium Level 141 meq/L 136-145 [...] [facility] ID Date Data Source [id number] 08/17/2020 11:07:00 AM EST [facility] (Anitha Gamez [...] % 24.0-44.0 [facility] [place] % 11.4 % 0.0-5.0 [facility] (Anitha summers [...] 10 1.5-5.0 [facility] [place] # 0.4 10 0.0-0.8 [facility] Eos # 0.1 10 0.0-0.5 [facility] Baso # 0.0 10 0.0-0.2 [facility] ID Date Data Source [id number] 06/22/2020 01:19:00 PM EST [facility] Name Value Range Interpretation Code Description Data Radhika rce(s) Supporting Document(s) Ferritin [Mass/volume] in Serum or Plasma 104 ng/mL 8-252 [facility] Carcinoembryonic Ag [Mass/volume] in Serum or Plasma 0.6 ng/mL [facility] ([facility] THE CEA ASSAY IS PERFORMED ON THE Zuse BY CHEMILUMINESCENCE AND SHOULD NOT BE COMPARED INTERCHANGEABLY WITH OTHER METHODS. IT SHOULD NOT BE USED ALONE A SCREENING TEST OR DIAGNOSIS FOR THE PRESENCE OR ABSENCE OF MALIGNANT DISEASE. PREDICTIONS OF DISEASE RECURRENCE SHOULD NOT BE BASED SOLELY ON VALUES OBTAINED FROM SERIAL PATIENT SERUM VALUES. ID Date Data Source [id number] 06/22/2020 01:19:00 PM EST [facility] ([facility] Name Value Range Interpretation Code Description Data Radhika e(s) Supporting Document(s) Iron (Fe) 39 ug/dL 50-170 [facility] Percent Saturation 11.8 % 13.2-45.0 [facility] ([facility] Total Iron Binding Capacity 331 ug/dL 250-450 [facility] ID Date Data Source [id number] 06/22/2020 01:19:00 PM EST [facility] ([facility] Name Value Range Interpretation Code Description Data [facility](s) Supporting Document(s) Glucose, Fasting 110 mg/dL 70-100 [...] Little GFR Left</content>
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
<content></content> Sodium Level 141 meq/L 136-145 [facility] [...] [facility] ID Date Data Source [id number] 06/22/2020 01:19:00 PM EST [facility] (Anitha Gamez [...] % 36.0-66.0 [facility] ([facility] [place] % 10.7 % 0.0-5.0 [facility] (Anitha summers [...] Neutrophils # 4.1 10 1.5-8.5 [facility] ([facility] Lymph # 0.5 10 1.5-5.0 [facility] [place] # 0.6 10 0.0-0.8 [facility] ([facility] Eos # 0.1 10 0.0-0.5 [facility] ([facility] Baso # 0.0 10 0.0-0.2 [facility] ([facility] ID Date Data Source [id number] 06/13/2020 09:16:00 AM EST [facility] (Anitha Gamez [...] to the patient, ID Date Data Source [id number] 06/13/2020 09:16:00 AM EST [facility] (Anitha Gamez [...] to the patient, ID Date Data Source [id number] 06/14/2020 06:06:00 AM EST [facility] Name Value [...] 0.0-0.1 [facility] ID Date Data Source [id number] 06/14/2020 08:07:00 AM EST [facility] Name Value [...] mg/dL 8.7-10.3 [facility] ID Date Data Source [id number] 04/14/2020 12:00:[address] [facility] [place] Patient Name: PANCHITO [id number] [facility] 1940[facility] [address] Date of Exam: 04/14/2020#: Fax: [phone] EXAM: [...] the right thigh asdescribed above.Accredited by the [employer] in Vascular PeripheralUltrasound.DENYS Elias/Bhavana you for referring MERON RICO to our office. Electronically Signed - ESTHER KAUR DO 04/14/20 17:03 Name Value Range Interpretation Code Description Data Radhika rce(s) Supporting Document(s) Procedure Social History Code Duration Value Status Description Data Source(s ) Alcohol intake 04/17/2021 12:00:00 AM EDT Lifetime non-drinker (finding) completed Lifetime non-drinker (finding) [facility] Smoking 03/28/2021 12:00:00 AM EDT Never Smoked A Pipe complet ed Never Smoked A Pipe [facility] Alcohol intake 02/28/2021 12:00:00 AM EDT Lifetime non-drinker (finding) completed Lifetime non-drinker (finding) [facility] Alcohol intake 01/24/2021 12:00:00 AM EDT Lifetime non-drinker (finding) completed Lifetime non-drinker (finding) [facility] Alcohol intake 12/20/2020 12:00:00 AM EDT Lifetime non-drinker (finding) completed Lifetime non-drinker (finding) [facility] Alcohol intake 12/04/2020 12:00:00 AM EDT Lifetime non-drinker (finding) completed Lifetime non-drinker (finding) [facility] Alcohol intake 06/23/2020 12:00:00 AM EST Lifetime non-drinker (finding) completed Lifetime non-drinker (finding) [facility] Smoking 06/23/2020 12:00:00 AM EST Never smoker completed Never s moker [facility] Vital Signs ID Date Data Source [id number] Name Value Range Interpretation Code Description Data Source(s) Systolic blood pressure 108 mm[Hg] 108 mm[Hg] [facility] Diastolic blood pressure 60 mm[Hg] 60 mm[Hg] [facility] Heart rate 113 /min 113 /min [facility] Body height 154.9 cm 154.9 cm [facility] Body weight 54.432 kg 54.432 kg [facility] Body mass index (BMI) [Ratio] 22.67 kg/m2 22.67 kg/m2 [facility] Oxygen saturation in Arterial blood by Pulse oximetry 98 % 98 % [facility] Diastolic blood pressure 83 mm[Hg] 83 mm[Hg] [facility] Body temperature 98.0 [degF] 98.0 [degF] [facility] ([facility] Body [...] [in_i] [facility] ([facility] 5'1.50" [place] body weight 105 [lb_av] 105 [lb_av] [facility] [...] 99 % [facility] ([facility] Heart rate 64 /min 64 /min [facility] ([facility] Diastolic blood pressure 62 mm[Hg] 62 mm[Hg] [facility] ([facility] Body height 61.5 [in_i] 61.5 [in_i] [facility] ([facility] 5'1.50" [place] body weight 105 [lb_av] 105 [lb_av] [facility] ([facility] Body mass index (BMI) [Ratio] 21.6 kg/m2 21.6 k g/m2 [facility] ([facility] Systolic blood pressure 122 mm[Hg] 122 mm[Hg] [facility] Diastolic blood pressure 74 mm[Hg] 74 mm[Hg] [facility] Heart rate 78 /min 78 /min [facility] Body height 154.9 cm 154.9 cm [facility] Body weight 52.617 kg 52.617 kg [facility] Body mass index (BMI) [Ratio] 21.92 kg/m2 21.92 kg/m2 [facility] Oxygen saturation in Arterial blood by Pulse oximetry 98 % 98 % [facility] Body weight 52.[address] [facility] ([facility], ) Systolic blood pressure 112 mm[Hg] 112 mm[Hg] M [facility] ([facility], ) Diastolic blood pressure 58 mm[Hg] 58 mm[Hg] [facility] ([facility], ) Body height 61 [in_i] 61 [in_i] [facility] ([facility], ) 5'1" Body weight 116.00 [lb_av] 116.00 [lb_av] [facility] ([facility]) Body mass index (BMI) [Ratio] 21.9 kg/m2 21.9 k g/m2 [facility] ([facility], ) [place] body weight 105 [lb_av] 105 [lb_av] [facility] ([facility], ) Body surface area Derived from formula 1.50 m2 1.50 m2 [facility] ([facility], ) Systolic blood pressure 108 mm[Hg] 108 mm[Hg] [facility] Diastolic blood pressure 72 mm[Hg] 72 mm[Hg] [facility] Body weight 52.617 kg 52.617 kg [facility] Heart rate 77 /min 77 /min [facility] Body mass index (BMI) [Ratio] 21.92 kg/m2 21.92 kg/m2 [facility] Body height 154.9 cm 154.9 cm [facility] Oxygen saturation in Arterial blood by Pulse oximetry 98 % 98 % [facility] Diastolic blood pressure 75 mm[Hg] 75 mm[Hg] [facility] ([facility] Body height 61.5 [in_i] 61.5 [in_i] [facility] ([facility] 5'1.50" Body temperature 97.5 [degF] 97.5 [degF] [facility] ([facility] Oxygen saturation [...] [lb_av] [facility] ([facility] [place] body weight 105 [lb_av] 105 [lb_av] [facility] ([facility] Body mass index (BMI) [Ratio] 20.7 kg/m2 20.7 k g/m2 [facility] ([facility] Heart rate 76 /min 76 /min [facility] Systolic blood pressure 134 mm[Hg] 134 mm[Hg] [facility] Respiratory rate 17 /min 17 /min [facility] Diastolic blood pressure 76 mm[Hg] 76 mm[Hg] [facility] Body height 154.9 cm 154.9 cm [facility] Body mass index (BMI) [Ratio] 20.97 kg/m2 20.97 kg/m2 [facility] Body weight 50.349 kg 50.349 kg [facility] Oxygen saturation in Arterial blood by Pulse oximetry 98 % 98 % [facility] Body height 61 [in_i] 61 [in_i] [facility] 5'1" Body weight 106.00 [lb_av] 106.00 [lb_av] [facility] ([facility]) Body mass index (BMI) [Ratio] 20.0 kg/m2 20.0 k g/m2 [facility] ([facility]) [place] body weight 105 [lb_av] 105 [lb_av] [facility] ([facility]) Body weight 48.[address] [facility] ([facility]) Body surface area Derived from formula 1.[address] [facility] ([facility]) Diastolic blood pressure 76 mm[Hg] 76 mm[Hg] [facility] ([facility]) Body height 61 [in_i] 61 [in_i] [facility] ([facility]) 5'1" Body weight 106.00 [lb_av] 106.00 [lb_av] [facility] ([facility]) Body mass index (BMI) [Ratio] 20.0 kg/m2 20.0 k g/m2 [facility] [place] body weight 105 [lb_av] 105 [lb_av] [facility] ([facility]) Body weight 48.082 kg 48.082 kg [facility] ([facility], ) Body surface area Derived from formula 1.44 m2 1.44 m2 [facility], [facility] Systolic blood pressure 128 mm[Hg] 128 mm[Hg] M [facility] ([facility]) Heart rate 68 /min 68 /min [facility] ([facility] Respiratory [...] 99 % [facility] ([facility] [place] body weight 105 [lb_av] 105 [lb_av] [facility] ([facility] Body mass index (BMI) [Ratio] 19.6 kg/m2 19.6 k g/m2 [facility] ([facility] Systolic blood pressure 124 mm[Hg] 124 mm[Hg] [facility] Diastolic blood pressure 58 mm[Hg] 58 mm[Hg] [facility] Heart rate 64 /min 64 /min [facility] Body height 154.9 cm 154.9 cm [facility] Body weight 49.442 kg 49.442 kg [facility] Body mass index (BMI) [Ratio] 20.60 kg/m2 20.60 kg/m2 [facility] Oxygen saturation in Arterial blood by Pulse oximetry 99 % 99 % [facility] Body height 61.5 [in_i] 61.5 [...] 98 % [facility] ([facility] [place] body weight 105 [lb_av] 105 [lb_av] [facility] ([facility] Body mass index (BMI) [Ratio] 20.1 kg/m2 20.1 k g/m2 [facility] ([facility] Body mass index (BMI) [Ratio] 18.7 kg/m2 18.7 k g/m2 [facility] ([facility] Respiratory rate 17 /min 17 /min [facility] ( [facility] Diastolic blood pressure 68 mm[Hg] 68 mm[Hg] [facility] ([facility] Oxygen saturation in Arterial blood by Pulse oximetry 98 % 98 % [facility] ([facility] [place] body weight 105 [lb_av] 105 [lb_av] MED[facility] [...] [lb_av] [facility] ([facility] Diastolic blood pressure 76 mm[Hg] 76 mm[Hg] [facility] Systolic blood pressure 122 mm[Hg] 122 mm[Hg] [facility] Heart rate 86 /min 86 /min [facility] Body height 154.9 cm 154.9 cm [facility] Body weight 46.72 kg 46.72 kg [facility] Body mass index (BMI) [Ratio] 19.46 kg/m2 19.46 kg/m2 [facility] Oxygen saturation in Arterial blood by Pulse oximetry 97 % 97 % [facility] Systolic blood pressure 150 mm[Hg] 150 mm[Hg] [facility] Diastolic blood pressure 90 mm[Hg] 90 mm[Hg] [facility] Heart rate 73 /min 73 /min [facility] Body height 154.9 cm 154.9 cm [facility] Body weight 52.164 kg 52.164 kg [facility] Body mass index (BMI) [Ratio] 21.73 kg/m2 21.73 kg/m2 [facility] Oxygen saturation in Arterial blood by Pulse oximetry 96 % 96 % [facility] Systolic blood pressure 154 mm[Hg] 154 mm[Hg] M [facility] ([facility]) Diastolic blood pressure 78 mm[Hg] 78 mm[Hg] [facility] ([facility]) Body height 61.5 [in_i] 61.5 [in_i] [facility] ([facility]) 5'1.50" Body weight 114.00 [lb_av] 114.00 [lb_av] [facility] ([facility]) Body mass index (BMI) [Ratio] 21.2 kg/m2 21.2 k g/m2 [facility] ([facility]) [place] body weight 105 [lb_av] 105 [lb_av] [facility] ([facility]) Body weight 51.[address] [facility] ([facility]) Body surface area Derived from formula 1.[address] [facility] ([facility]) [place] body weight 105 [lb_av] 105 [lb_av] [facility] ([facility] Body mass index (BMI) [Ratio] 20.7 kg/m2 20.7 k g/m2 [facility] ([facility] Systolic blood pressure 166 mm[Hg] 166 mm[Hg] [facility] ([facility] Diastolic blood pressure 87 mm[Hg] 87 mm[Hg] [facility] ([facility] Body height 61.5 [in_i] 61.5 [in_i] [facility] 5'1.50" Body weight 111.38 [lb_av] 111.38 [lb_av] [facility] ([facility] Oxygen saturation in Arterial blood by Pulse oximetry 100 % 100 % [facility] ([facility] Heart rate 67 /min 67 /min [facility] ([facility] Body temperature 97.0 [degF] 97.0 [degF] [facility] ([facility] Respiratory rate 16 /min 16 /min [facility] ( [facility] Systolic blood pressure 130 mm[Hg] 130 mm[Hg] [facility] Diastolic blood pressure 70 mm[Hg] 70 mm[Hg] [facility] Heart rate 68 /min 68 /min [facility] Body height 154.9 cm 154.9 cm [facility] Body weight 53.524 kg 53.524 kg [facility] Body mass index (BMI) [Ratio] 22.30 kg/m2 22.30 kg/m2 [facility] Oxygen saturation in Arterial blood by Pulse oximetry 98 % 98 % [facility] Diastolic blood pressure 78 mm[Hg] 78 mm[Hg] [facility] ([facility] Body temperature 96.5 [degF] 96.5 [degF] [facility] ([facility] Respiratory rate 12 /min 12 /min [facility] ( [facility] Oxygen saturation in Arterial blood by Pulse oximetry 97 % 97 % [facility] ([facility] [place] body weight 105 [lb_av] 105 [lb_av] [facility] [...] [lb_av] [facility] T ([facility] Diastolic blood pressure 90 mm[Hg] 90 mm[Hg] [facility] ([facility] Respiratory rate 18 /min 18 /min [facility] ( [facility] Systolic blood pressure 138 [...] 98 % [facility] ([facility] [place] body weight 105 [lb_av] 105 [lb_av] [facility] T ([facility] Body mass index (BMI) [Ratio] 22.7 kg/m2 22.7 k g/m2 [facility] ([facility] Patient Treatment Plan of Care Planned Activity Planned Date Details Description Data Source (s) Sucralfate 100 MG/ML Oral Suspension 04/01/2021 12:00:00 AM EDT [facility] pantoprazole 40 MG Delayed Release Oral Tablet 01/21/2021 12:00:00 AM EDT [facility] potassium chloride SA (K-DUR,KLOR-CON) 20 MEQ tablet 12:00:00 AM EDT [facility] Furosemide 20 MG Oral Tablet 12/20/2020 12:00:00 AM EDT [facility] 24 HR Diltiazem Hydrochloride 240 MG Extended Release Oral Capsule 12/20/2020 12:00:00 AM EDT [facility] 24 HR metoprolol succinate 50 MG Extended Release Oral Tablet 12/06/2020 12:00:00 AM EDT [facility] Sucralfate 1000 MG Oral Tablet 12/05/2020 12:00:00 AM EDT [facility] potassium chloride SA (K-DUR,KLOR-CON) 20 MEQ tablet 021 12:00:00 AM EDT [facility] Furosemide 20 MG Oral Tablet 11/23/2020 12:00:00 AM EDT [facility] Digoxin 0.125 MG Oral Tablet 07/29/2020 12:00:00 AM EST [facility] 24 HR Diltiazem Hydrochloride 240 MG Extended Release Oral Capsule 07/05/2020 12:00:00 AM EST [facility] apixaban 2.5 MG Oral Tablet 07/05/2020 12:00:00 AM EST [facility] Furosemide 20 MG Oral Tablet 07/01/2020 12:00:00 AM EST [facility] Lancets (ONETOUCH DELICA PLUS [id number]) MISC 06/05/2020 12:00:00 A M EST [facility] ONETOUCH ULTRA test strip 04/30/2020 12:00:00 AM EDT [facility] potassium chloride SA (K-DUR,KLOR-CON) 20 MEQ tablet 12:00:00 AM EDT [facility] Furosemide 20 MG Oral Tablet 03/24/2020 12:00:00 AM EDT [facility] 24 HR metoprolol succinate 50 MG Extended Release Oral Tablet 03/07/2020 12:00:00 AM EDT [facility] 24 HR Diltiazem Hydrochloride 240 MG Extended Release Oral Capsule 03/07/2020 12:00:00 AM EDT [facility] apixaban 2.5 MG Oral Tablet 02/23/2020 12:00:00 AM EDT [facility] Digoxin 0.125 MG Oral Tablet 02/23/2020 12:00:00 AM EDT [facility] Metformin hydrochloride 500 MG Oral Tablet [facility] glimepiride 1 MG Oral Tablet [facility] Sucralfate 100 MG/ML Oral Suspension [facility] potassium chloride SA (K-DUR,KLOR-CON) 20 MEQ tablet [facility] Ketotifen 0.25 MG/ML Ophthalmic Solution [facility] pantoprazole 40 MG Delayed Release Oral Tablet [facility]
[2021-05-23 20:47] VITALS: BP 139/71
== END 2021-05-23 20:48 | disposition home or self-care (01) ==
LOC: M ED 16:38
DX: R04.0 Epistaxis (principal); I48.91 Unspecified atrial fibrillation; I50.9 Heart failure, unspecified; E11.9 Type 2 diabetes mellitus without complications; I10 Essential (primary) hypertension; D64.9 Anemia, unspecified; F41.9 Anxiety disorder, unspecified; Z86.73 Personal history of transient ischemic attack (TIA), and cerebral infarction without residual deficits; E78.5 Hyperlipidemia, unspecified; Z85.048 Personal history of other malignant neoplasm of rectum, rectosigmoid junction, and anus; Z79.899 Other long term (current) drug therapy

== ENCOUNTER 2021-06-07 11:43 | Outpatient (CLI) | payer MEDICARE, OTHER ==
[2021-06-07] VITALS (9 sets, daily range): BP systolic 109–139; BP diastolic 61–90
[~2021-06-07] VITALS: Ht 154.9 cm; Wt 55.7 kg
[~2021-06-07 11:43] MED LIST changes: +ACETAMINOPHEN TAB 650MG DOSE (2X325MG) PO SCH; -OMEP-221 PO; +OMEP40CA5 PO; +POTA-151 PO; -POTA20TA6 PO; +diphenhydrAMINE 25MG CAP PO SCH
[2021-06-07] MEDS ORDERED: FUROSEMIDE 20MG/2ML VIAL (J1940) IV SCH (12:25)
[2021-06-16] MEDS ORDERED: DILT240C83 PO (10:34)
[2021-06-16] MEDS ORDERED: DIGO0.123 PO (10:34)
[2021-06-16] MEDS ORDERED: GLIM1TAB4 PO (10:34)
[2021-08-23] MEDS ORDERED: TORS20TA2 PO (09:10)
== END 2021-06-07 18:35 | disposition home or self-care (01) ==
LOC: M INFU 11:43
PROVIDERS: ATTEND Internal Medicine Medical Oncology
DX: D64.9 Anemia, unspecified (principal)
CPT/HCPCS: 36415; 36430; 85025; 86850; 86900; 86901; 86920; 96374; J1940; P9016

== ENCOUNTER → 2021-06-14 | Outpatient (CLI) | payer MEDICARE, OTHER ==
[~2021-06-14] MED LIST changes: -ACETAMINOPHEN TAB 650MG DOSE (2X325MG) PO SCH; +B-122500 PO; +TORS20TA2 PO; -diphenhydrAMINE 25MG CAP PO SCH
== END ==
LOC: M LABSMTC 10:36
PROVIDERS: ATTEND Anesthesiology
DX: Z01.812 Encounter for preprocedural laboratory examination (principal); Z20.822 Contact with and (suspected) exposure to COVID-19

== ENCOUNTER → 2021-06-18 | Outpatient (REF) | payer MEDICARE, OTHER ==
[~2021-06-18] MED LIST changes: +OMEP-221 PO; -OMEP40CA5 PO; -POTA-151 PO; +POTA20TA6 PO; -TORS20TA2 PO
== END ==
LOC: M LAB REF 14:47
PROVIDERS: ATTEND Internal Medicine Medical Oncology
DX: C18.2 Malignant neoplasm of ascending colon (principal); C18.0 Malignant neoplasm of cecum; C20 Malignant neoplasm of rectum

== ENCOUNTER 2021-06-19 13:29 | Day surgery (SDC) | payer MEDICARE, OTHER ==
[~2021-06-19] VITALS: Ht 154.9 cm; Wt 54.9 kg
[~2021-06-19 13:29] MED LIST changes: -B-122500 PO; +LR 1,000 ML IV ONE; +ceFAZolin SOD 2 GM in IV 1 EA IV ONE
--- OUTSIDE RECORDS SUMMARY | 2021-06-19 13:36 | CCD | Continuity of Care Document ---
Author Author Meron PERALTA M.D. 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 [facility] [phone] Nadiya Bryan N.P. [facility] [phone] Niels Decker MD [facility] [phone] [facility] Unavailable Problems Active Problems Provider Date Essential hypertension [...] Unknown Non Smoker Allergies and adverse reactions Active Allergies Criticality Reaction | Severity Comments Date NKDA Unable to assess criticality 12/11/2016 Environmental Unable to assess criticality 06/06/2021 Medications Active Medications SIG Qnty Indications Ordering [...] daily). 840ml D62 Martin Cavazos MD 01/04/2021 Citracal Plus Tablets 2tab p o qd Unknown Diltiazem HCL ER Beads 240mg Caps ER 24HR 1tab po qd Unknown Metoprolol Succinate ER 50mg Tablets ER 24HR 1tab po qd Unknown Potassium Chloride ER 20Meq Tablet s ER 1tab po qd Unknown Furosemide 40mg Tablets 1tab po qd Unknown Atorvastatin Calcium 20mg Tablets 1tab po qd Unknown Tylenol 8 Hour Arthritis Pain 650mg Tablets ER 1tab po qd Unknown Alendronate Sodium 70mg Tablets 1tab po qwk Unknown Docusate Sodium 100mg Capsules 1cap po bid Unknown Pataday 0.1% Solution bid Unknown Miralax 17GM/Scoop Powder 17g m qd Unknown History Medications Omeprazole 20mg Capsules 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 60caps D62 Jeff Peralta M.D. 01/04/2021 - 02/21/2021 Immunizations Description No Information Available Vital Signs Date Vital Result Comment 06/12/2021 12:36pm BP Systolic 124 mmHg BP Diastolic 79 mmHg Height 61 inches 5'1" Weight 123.00 lb BMI (Body Mass Index) 23.2 kg/m2 [place] Body Weight 105 lb Weight 55.793 kg BSA (Body Surface Area) 1.54 m2 06/06/2021 1:50pm BP Systolic 132 mmHg BP Diastolic 81 mmHg Heart Rate 99 /min O2 % BldC Oximetry 99 % Height 61 inches 5'1" Weight 127.00 lb BMI (Body Mass Index) 24.0 kg/m2 [place] Body Weight 105 lb Weight 57.607 kg BSA (Body Surface Area) 1.56 m2 Results Test Acquired Date Facility Test Result H/L Range Note Laboratory test finding 02/27/2021 [facility] Main Lab [address] [place], [place] [id number] [phone] Blood Urea Nitrogen 26 mg/dL High 7-18 Creatinine With GFR 02/27/2021 [facility] Main Lab [address] [place] [address] [phone] Creatinine For GFR 0.76 mg/dL Normal 0.55-1.30 Glomerular Filtration Rate > 60.0 Normal >32 1 Total Iron Binding Capacit 02/27/2021 [facility] Main Lab [address] [place] [address] [phone] Iron (Fe) 79 g/dL Normal 50-170 Total Iron Binding Capacity 384 g/dL Normal 250-450 Percent Saturation 20.6 % Normal 13.2-45.0 Laboratory test finding 02/27/2021 [facility] Main Lab [address] [place] [address] [phone] Ferritin 1039 NG/ML High 8-252 CBC With Differential 02/27/2021 [facility] Main Lab [address] [place] [id number] [phone] White Blood Count 6.0 10 Normal 4.0-10.0 [...] 36.0-66.0 Lymph % 4.7 % Low 24.0-44.0 [place] % 11.6 % High 2.0-8.0 Eos % 0.5 % Normal 0.0-3.0 Baso % 0.3 % Normal 0.0-1.0 Immature Granulocyte % 0.8 % Normal 0-3.0 Nucleated Red Blood Cell % 0.3 % High 0-0 Neutrophils # 4.9 10 Normal 1.5-8.5 Lymph # 0.3 10 Low 1.5-5.0 [place] # 0.7 10 Normal 0.0-0.8 Eos # 0.0 10 Normal 0.0-0.5 Baso # 0.0 10 Normal 0.0-0.2 1 Units are mL/min/1.73 m2 Chronic Kidney Disease Staging per NKF: Stage I & II GFR >=60 Normal to Mildly Decreased Stage III GFR 30-59 Moderately Decreased Stage IV GFR 15-29 Severely Decreased Stage V GFR <15 Very Little GFR Left ESRD GFR <15 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 Procedures Date Code Description Status 06/06/2021 22540 Office/Outpatient New Low MDM 30 -44 Minutes Completed 04/14/2021 89203 Endoscopy Upper GI W/ Ablation O f Tumors/Polyps/Lesions Completed 04/14/2021 26929 Endoscopy Upper GI Control Hemor rhage Completed 03/01/2021 64889 Office/Outpatient Established Lo w MDM 20-29 Min Completed 01/20/2021 31128 Endoscopy Upper GI W/ Ablation O f Tumors/Polyps/Lesions Completed 01/20/2021 36087 Endoscopy Upper GI Control Hemor rhage Completed 01/04/2021 50523 Office/Outpatient Established Mo d MDM 30-39 Min Completed Medical Devices Description No Information Available Encounters Type Date Location Provider Dx Diagnosis Office Visit 03/01/2021 1:00p [facility] Pra dean Peralta M.D. D62 Acute posthemorrhagic anemia K31.811 Angiodysplasia of stomach an d duodenum with bleeding K92.1 [facility] Office Visit 01/04/2021 2:00p [facility] Pra dean Peralta M.D. 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 04/14/2021 K31.811 Angiodysplasia of stomach and du odenum with bleeding Jeff Peralta M.D. 03/01/2021 D62 Acute posthemorrhagic anemia Grace Peralta M.D. 03/01/2021 K31.811 Angiodysplasia of stomach and du odenum with bleeding Jeff Peralta M.D. 03/01/2021 K92.1 Negar Ambriz ala, M.D. 01/20/2021 D62 Acute posthemorrhagic anemia Grace Peralta M.D. 01/20/2021 K22.8 Other specified diseases of esop hagus Jeff Peralta M.D. 01/20/2021 K31.811 Angiodysplasia of stomach and du odenum with bleeding Jeff Peralta M.D. 01/04/2021 D62 Acute posthemorrhagic anemia Grace Peralta M.D. 01/04/2021 K92.1 Negar Ambriz ala, M.D. 01/04/2021 Z98.0 Intestinal bypass and anastomosi s status Jeff Peralta M.D. Plan of Treatment No Information Available Functional Status Description No Information Available Mental Status Description No Information Available Referrals Refer to Dr Reason for Referral Status Appt Date Martin Almeida M.D. NOSEBLEEDS Scheduled [address] [phone]
--- OUTSIDE RECORDS SUMMARY | 2021-06-19 13:36 | CCD | Continuity of Care Document ---
Author Author Meron BRYAN STUDY ABROAD ADVISOR Organization Unknown Address [address] [place] [address] Phone [phone] Care Team Providers Care Electric Stop Installer Name Role Phone [facility] AUTM [phone] Niels Decker M.D. AUTM [phone] [facility] AUTM Jeff Cramer AUTM [phone] Problems Active Problems Provider Date Type 2 [...] 236units C18.9 Nadiya Bryan FNP 06/16/2020 Z93.2 Marked Tree Remover Wipes Misc use 3-4 wipes every 4 days and as needed when changing ostomy 2Box Z93.2 Nadiya Bryan FNP 06/16/2020 C18.9 Efren Adapt Ceraing change every 4-5 days and as needed ref #[phone] 05 20units Nadiya Bryan FNP 05/05/2020 [place] 2 Piece Ostomy Skin Barrier ref # [id number] márquez ge every 4-5 days and as needed 20units C18.9 Nadiya Bryan FNP 04/14/2020 Z93.2 [place] 2 Piece Drainable Ostomy Pouch ref # [id number] c hange every 4-5 days and as [...] blood sugar two times a day 100units Anihta Gamez M.D. 05/10/2015 Glucometer Kit Machine use for twice daily glucose checks dx 250.00 1units Alex Hood M.D. 03/29/2014 Lancets Thin Misc use for daily glucose checks, dx 250.00 50units Nadiya Bryan FNP 4 Test Strip Strips use for twice daily blood glucose checks, dx e11.9 100units aNdiya Bryan FNP 03/29/2014 Citracal Plus Tablets 2 [...] day Anitha Gamez M.D. 021 - 01/25/2021 Immunizations CPT Code Status Date Vaccine Lot # 15979 Refused 04/17/2016 Pneumococcal Vaccine 75579 Refused 04/17/2016 Prevnar 13 57071 Refused 04/17/2016 Influenza Vaccination Vital Signs Date Vital Result Comment 03/28/2021 11:51am BP Systolic 113 mmHg BP Diastolic 83 mmHg Heart Rate 127 /min Body Temperature 98.0 F Respiratory Rate 18 /min Height 61.5 inches 5'1.50" Weight 114.38 lb O2 % BldC Oximetry 100 % M[place]ie Body Weight 105 lb BMI (Body Mass Index) 21.3 kg/m2 03/23/2021 3:47pm BP Systolic 110 mmHg BP Diastolic 62 mmHg Heart Rate 64 /min Body Temperature 98.7 F Respiratory Rate 16 /min Height 61.5 inches 5'1.50" Weight 116.38 lb O2 % BldC Oximetry 99 % [place]ie Body Weight 105 lb BMI (Body Mass Index) 21.6 kg/m2 Results Test Acquired Date Facility Test Result H/L Range Note Type & Screen -Incl Blood Type,Tye,AB SC 06/07/2021 [place] [address] [phone] Blood Type O POSITIVE Normal AB Screen (Indirect Farooq)Vis NEGATIVE Normal CBC With Differential 06/07/2021 [place] [address] [phone] White Blood Count 5.0 10 Normal 4.0-10.0 Red Blood Count 2.28 10 Low 4.00-5.40 Hemoglobin 6.6 g/dL Critical low 12.0-15.5 Hematocrit 22.2 % Low 36.0-47.0 Mean Corpuscular Volume 97.4 fl High 80.0-96.0 Mean Corpuscular Hemoglobin 28.9 pg Normal 27.0-33.0 Mean Corpuscular HGB Conc 29.7 g/dL Low 32.0-36.5 Red Cell Distribution Width 16.4 % High 11.5-14.5 Platelet Count, Automated 324 10 Normal 150-450 Neutrophils % 80.4 % High 36.0-66.0 Lymph % 4.8 % Low 24.0-44.0 [place] % 11.8 % High 2.0-8.0 Eos % 2.0 % Normal 0.0-3.0 Baso % 0.4 % Normal 0.0-1.0 Immature Granulocyte % 0.6 % Normal 0-3.0 Nucleated Red Blood Cell % 0.0 % Normal 0-0 Neutrophils # 4.0 10 Normal 1.5-8.5 Lymph # 0.2 10 Low 1.5-5.0 [place] # 0.6 10 Normal 0.0-0.8 Eos # 0.1 10 Normal 0.0-0.5 Baso # 0.0 10 Normal 0.0-0.2 Laboratory test finding 06/07/2021 [place] [address] [phone] Packed Cells TRANSFUSED PRODU <SEE NOTE> 1 CBC With Differential 05/31/2021 [place] [address] [phone] White Blood Count 4.9 10 Normal 4.0-10.0 Red Blood Count 2.65 10 Low 4.00-5.40 Hemoglobin 7.6 g/dL Low 12.0-15.5 Hematocrit 25.4 % Low 36.0-47.0 Mean Corpuscular Volume 95.8 fl Normal 80.0-96.0 Mean Corpuscular Hemoglobin 28.7 pg Normal 27.0-33.0 Mean Corpuscular HGB Conc 29.9 g/dL Low 32.0-36.5 Red Cell Distribution Width 16.9 % High 11.5-14.5 Platelet Count, Automated 350 10 Normal 150-450 Neutrophils % 79.3 % High 36.0-66.0 Lymph % 6.5 % Low 24.0-44.0 [place] % 11.0 % High 2.0-8.0 Eos % 1.8 % Normal 0.0-3.0 Baso % 0.6 % Normal 0.0-1.0 Immature Granulocyte % 0.8 % Normal 0-3.0 Nucleated Red Blood Cell % 0.0 % Normal 0-0 Neutrophils # 3.9 10 Normal 1.5-8.5 Lymph # 0.3 10 Low 1.5-5.0 [place] # 0.5 10 Normal 0.0-0.8 Eos # 0.1 10 Normal 0.0-0.5 Baso # 0.0 10 Normal 0.0-0.2 Laboratory test finding 05/31/2021 [place] [address] [phone] Packed Cells TRANSFUSED PRODU <SEE NOTE> 2 Type & Screen -Incl Blood Type,Tye,AB SC 05/31/2021 [place] [address] [phone] Blood Type O POSITIVE Normal AB Screen (Indirect Farooq)Vis NEGATIVE Normal CBC With Differential 05/24/2021 [place] [address] [phone] White Blood Count 5.2 10 Normal 4.0-10.0 Red Blood Count 2.19 10 Low 4.00-5.40 Hemoglobin 6.3 g/dL Critical low 12.0-15.5 Hematocrit 21.5 % Low 36.0-47.0 Mean Corpuscular Volume 98.2 fl High 80.0-96.0 Mean Corpuscular Hemoglobin 28.8 pg Normal 27.0-33.0 Mean Corpuscular HGB Conc 29.3 g/dL Low 32.0-36.5 Red Cell Distribution Width 17.1 % High 11.5-14.5 Platelet Count, Automated 327 10 Normal 150-450 Neutrophils % 81.0 % High 36.0-66.0 Lymph % 4.2 % Low 24.0-44.0 [place] % 11.7 % High 2.0-8.0 Eos % 1.9 % Normal 0.0-3.0 Baso % 0.6 % Normal 0.0-1.0 Immature Granulocyte % 0.6 % Normal 0-3.0 Nucleated Red Blood Cell % 0.0 % Normal 0-0 Neutrophils # 4.2 10 Normal 1.5-8.5 Lymph # 0.2 10 Low 1.5-5.0 [place] # 0.6 10 Normal 0.0-0.8 Eos # 0.1 10 Normal 0.0-0.5 Baso # 0.0 10 Normal 0.0-0.2 Laboratory test finding 05/24/2021 [place] [address] [phone] Packed Cells TRANSFUSED PRODU <SEE NOTE> 3 Type & Screen -Incl Blood Type,Tye,AB SC 05/24/2021 [place] [address] [phone] Blood Type O POSITIVE Normal AB Screen (Indirect Farooq)Vis NEGATIVE Normal CBC With Differential 05/17/2021 [place] [address] [phone] White Blood Count 4.6 10 Normal 4.0-10.0 [...] 36.0-66.0 Lymph % 5.7 % Low 24.0-44.0 [place] % 11.3 % High 2.0-8.0 Eos % 1.7 % Normal 0.0-3.0 Baso % 0.4 % Normal 0.0-1.0 Immature Granulocyte % 0.4 % Normal 0-3.0 Nucleated Red Blood Cell % 0.0 % Normal 0-0 Neutrophils # 3.7 10 Normal 1.5-8.5 Lymph # 0.3 10 Low 1.5-5.0 [place] # 0.5 10 Normal 0.0-0.8 Eos # 0.1 10 Normal 0.0-0.5 Baso # 0.0 10 Normal 0.0-0.2 Type & Screen -Incl Blood Type,Tye,AB SC 05/17/2021 [place] [address] [phone] Blood Type O POSITIVE Normal AB Screen (Indirect [place])Vis NEGATIVE Normal Laboratory test finding 05/17/2021 [place] [address] [phone] Packed Cells TRANSFUSED PRODU <SEE NOTE> 4 CBC With Differential 05/10/2021 [place] [address] [phone] White Blood Count 5.2 10 Normal 4.0-10.0 [...] 36.0-66.0 Lymph % 4.8 % Low 24.0-44.0 [place] % 8.7 % High 2.0-8.0 Eos % 1.2 % Normal 0.0-3.0 Baso % 0.4 % Normal 0.0-1.0 Immature Granulocyte % 0.6 % Normal 0-3.0 Nucleated Red Blood Cell % 0.0 % Normal 0-0 Neutrophils # 4.4 10 Normal 1.5-8.5 Lymph # 0.3 10 Low 1.5-5.0 [place] # 0.5 10 Normal 0.0-0.8 Eos # 0.1 10 Normal 0.0-0.5 Baso # 0.0 10 Normal 0.0-0.2 CBC With Differential 05/08/2021 [place] [address] [phone] White Blood Count 4.8 10 Normal 4.0-10.0 [...] 36.0-66.0 Lymph % 5.2 % Low 24.0-44.0 [place] % 11.2 % High 2.0-8.0 Eos % 1.4 % Normal 0.0-3.0 Baso % 0.4 % Normal 0.0-1.0 Immature Granulocyte % 0.4 % Normal 0-3.0 Nucleated Red Blood Cell % 0.0 % Normal 0-0 Neutrophils # 3.9 10 Normal 1.5-8.5 Lymph # 0.3 10 Low 1.5-5.0 [place] # 0.5 10 Normal 0.0-0.8 Eos # 0.1 10 Normal 0.0-0.5 Baso # 0.0 10 Normal 0.0-0.2 Type & Screen -Incl Blood Type,Tye,AB SC 05/08/2021 [place] [address] [phone] Blood Type O POSITIVE Normal AB Screen (Indirect [place])Vis NEGATIVE Normal Laboratory test finding 05/08/2021 [place] [address] [phone] Packed Cells TRANSFUSED PRODU <SEE NOTE> 5 Occult Blood 05/08/2021 [place] [address] [phone] Occult Blood OCCULT BLOOD 1 <SEE NOTE> Abnormal 6 Laboratory test finding 05/05/2021 [place] [address] [phone] Packed Cells TRANSFUSED PRODU <SEE NOTE> 7 Type & Screen -Incl Blood Type,Tye,AB SC 05/05/2021 [place] [address] [phone] Blood Type O POSITIVE Normal AB Screen (Indirect [place])Vis NEGATIVE Normal CBC With Differential 05/05/2021 [place] [address] [phone] White Blood Count 5.1 10 Normal 4.0-10.0 [...] 36.0-66.0 Lymph % 6.3 % Low 24.0-44.0 [place] % 11.5 % High 2.0-8.0 Eos % 0.8 % Normal 0.0-3.0 Baso % 0.4 % Normal 0.0-1.0 Immature Granulocyte % 0.6 % Normal 0-3.0 Nucleated Red Blood Cell % 0.0 % Normal 0-0 Neutrophils # 4.1 10 Normal 1.5-8.5 Lymph # 0.3 10 Low 1.5-5.0 [place] # 0.6 10 Normal 0.0-0.8 Eos # 0.0 10 Normal 0.0-0.5 Baso # 0.0 10 Normal 0.0-0.2 Factor VIII Panel 05/05/2021 [place] [address] [phone] F8 Activity For F8 Panel 214 % High 56-140 8 F8 Antigen For F8 Panel 115 % Normal 50-200 9 F8 Activity vWB For F8 Panel 71 % Normal 50-200 Interpretation: Note Normal . 10 Platelet Function Analysis 05/05/2021 [place] [address] [phone] Collagen Epinephrine TNP seconds Normal 74-162 11 Laboratory test finding 05/05/2021 [place] [address] [phone] Partial Thromboplastin Time 24.9 seconds Low 25 .9-37.0 Prothrombin Time/Inr 05/05/2021 [place] [address] [phone] Prothrombin Time 14.0 seconds Normal 12.7-14.5 Inr 1.04 Normal 12 Retic (Reticulocyte Count) 05/05/2021 [place] [address] [phone] Reticulocyte % 5.9 % High 0.5-1.5 Reticulocyte # 119.8 10 High 17-77 Retic Hemoglobin Equivalent 30.7 pg Normal 24-36 Laboratory test finding 05/05/2021 [place] [address] [phone] LDH Lactate Dehydrogenase 128 U/L Normal 84-246 Haptoglobin 214 mg/dL Normal 41-333 13 CBC With Differential 04/27/2021 [place] [address] [phone] White Blood Count 4.2 10 Normal 4.0-10.0 [...] 36.0-66.0 Lymph % 8.1 % Low 24.0-44.0 [place] % 12.8 % High 2.0-8.0 Eos % 1.0 % Normal 0.0-3.0 Baso % 0.2 % Normal 0.0-1.0 Immature Granulocyte % 0.5 % Normal 0-3.0 Nucleated Red Blood Cell % 0.0 % Normal 0-0 Neutrophils # 3.3 10 Normal 1.5-8.5 Lymph # 0.3 10 Low 1.5-5.0 [place] # 0.5 10 Normal 0.0-0.8 Eos # 0.0 10 Normal 0.0-0.5 Baso # 0.0 10 Normal 0.0-0.2 CBC With Differential 04/20/2021 Patient Service Ce [place], [place] [id number] [phone] White Blood Count 3.9 10 Low 4.0-10.0 [...] 36.0-66.0 Lymph % 8.8 % Low 24.0-44.0 [place] % 11.9 % High 2.0-8.0 Eos % 1.0 % Normal 0.0-3.0 Baso % 0.5 % Normal 0.0-1.0 Immature Granulocyte % 0.8 % Normal 0-3.0 Nucleated Red Blood Cell % 0.0 % Normal 0-0 Neutrophils # 3.0 10 Normal 1.5-8.5 Lymph # 0.3 10 Low 1.5-5.0 [place] # 0.5 10 Normal 0.0-0.8 Eos # 0.0 10 Normal 0.0-0.5 Baso # 0.0 10 Normal 0.0-0.2 CBC With Differential 04/12/2021 Patient Service [place] [id number] [phone] White Blood Count 4.6 10 Normal 4.0-10.0 [...] 36.0-66.0 Lymph % 6.6 % Low 24.0-44.0 [place] % 9.4 % High 2.0-8.0 Eos % 0.9 % Normal 0.0-3.0 Baso % 0.2 % Normal 0.0-1.0 Immature Granulocyte % 0.4 % Normal 0-3.0 Nucleated Red Blood Cell % 0.0 % Normal 0-0 Neutrophils # 3.8 10 Normal 1.5-8.5 Lymph # 0.3 10 Low 1.5-5.0 [place] # 0.4 10 Normal 0.0-0.8 Eos # 0.0 10 Normal 0.0-0.5 Baso # 0.0 10 Normal 0.0-0.2 Coronavirus 2019 Nasopharygeal 04/10/2021 Patient S ervice Center [place] 0[address]1973 [phone] Coronavirus 2019 Nasopharygeal ASSAY INFORMATIO <SEE N OTE> 14 Total Iron Binding Capacit 04/07/2021 Patient Servi ce Center [place] [id number] [phone] Iron (Fe) 48 g/dL Low 50-170 Total Iron Binding Capacity 353 g/dL Normal 250-450 Percent Saturation 13.6 % Normal 13.2-45.0 Type & Screen -Incl Blood Type,Tye,AB SC 04/07/2021 [facility] [place] [address]1989 [phone] Blood Type O POSITIVE Normal AB Screen (Indirect [place])Vis NEGATIVE Normal Laboratory test finding 04/07/2021 [place] [address] [phone] Packed Cells TRANSFUSED PRODU <SEE NOTE> 15 CBC With Differential 04/07/2021 [place] [address] [phone] White Blood Count 3.4 10 Low 4.0-10.0 [...] 36.0-66.0 Lymph % 8.5 % Low 24.0-44.0 [place] % 10.9 % High 2.0-8.0 Eos % 0.9 % Normal 0.0-3.0 Baso % 0.6 % Normal 0.0-1.0 Immature Granulocyte % 0.6 % Normal 0-3.0 Nucleated Red Blood Cell % 0.0 % Normal 0-0 Neutrophils # 2.7 10 Normal 1.5-8.5 Lymph # 0.3 10 Low 1.5-5.0 [place] # 0.4 10 Normal 0.0-0.8 Eos # 0.0 10 Normal 0.0-0.5 Baso # 0.0 10 Normal 0.0-0.2 Laboratory test finding 04/07/2021 [place] [address] [phone] Carcinoembryonic Antigen < 0.5 NG/ML Normal <2.5 16 Ferritin 66 NG/ML Normal 8-252 Comprehensive Metabolic Profil 04/07/2021 [place] [address] [phone] Glucose, Fasting 184 mg/dL High 70-100 Blood Urea Nitrogen 30 mg/dL High 7-18 Creatinine For GFR 0.81 mg/dL Normal 0.55-1.30 Glomerular Filtration Rate > 60.0 Normal >32 1 7 Sodium Level 141 mEq/L Normal 136-145 Potassium [...] 1.2-2.2 Comprehensive Metabolic Profil 03/24/2021 [place] [address] [phone] Glucose, Fasting 96 mg/dL Normal 70-100 Blood Urea Nitrogen 35 mg/dL High 7-18 Creatinine For GFR 0.78 mg/dL Normal 0.55-1.30 Glomerular Filtration Rate > 60.0 Normal >32 1 8 Sodium Level 141 mEq/L Normal 136-145 [...] RSV Covid Amp 03/24/2021 [place] [address] [phone] Influenza A Amplification NEGATIVE Normal Negati ve 19 Influenza B Amplification NEGATIVE Normal Negative 20 RSV Amplification NEGATIVE Normal Negative 21 Sars Covid-19 Amplification NEGATIVE Normal Negative 22 Laboratory test finding 03/24/2021 [place] [address] [phone] Packed Cells TRANSFUSED PRODU <SEE NOTE> 23 CBC With Differential 03/24/2021 [place] [address] [phone] White Blood Count 4.6 10 Normal 4.0-10.0 [...] 36.0-66.0 Lymph % 6.2 % Low 24.0-44.0 [place] % 11.4 % High 2.0-8.0 Eos % 0.4 % Normal 0.0-3.0 Baso % 0.4 % Normal 0.0-1.0 Immature Granulocyte % 0.4 % Normal 0-3.0 Nucleated Red Blood Cell % 0.7 % High 0-0 Neutrophils # 3.7 10 Normal 1.5-8.5 Lymph # 0.3 10 Low 1.5-5.0 [place] # 0.5 10 Normal 0.0-0.8 Eos # 0.0 10 Normal 0.0-0.5 Baso # 0.0 10 Normal 0.0-0.2 Albumin/Creatinine Ratio, Random Urine 03/17/2021 [facility] [address] [place] [address] [phone] Creatinine, Urine 120.2 mg/dL Not Estab. Albumin, Urine 20.1 ug/mL Not Estab. Alb/Creat Ratio 17 mg/gcreat 0-29 24 Lipid Panel 03/17/2021 [facility] [address] [place] [address] [phone] Cholesterol, Total 123 mg/dL 100-199 Triglycerides 141 mg/dL 0-149 HDL Cholesterol 37 mg/dL Low >39 VLDL Cholesterol Mark 25 mg/dL 5-40 LDL Chol Calc ([facility]) 61 mg/dL 0-99 Comment: ILP Metabolic Panel (14), Comprehensive 03/17/2021 [facility] [address] [place] [address] [phone] Calcium 9.5 mg/dL 8.7-10.3 Glucose 81 mg/dL 65-99 BUN 30 mg/dL High 8-27 Creatinine 0.77 mg/dL 0.57-1.00 eGFR If NonAfricn Am 73 mL/min/1.73 >59 eGFR If Africn Am 84 mL/min/1.73 >59 25 BUN/Creatinine Ratio 39 High 12-28 Sodium 142 mmol/L 134-144 Potassium 4.4 mmol/L 3.5-5.2 Chloride 108 mmol/L High 96-106 Carbon Dioxide, Total 22 mmol/L 20-29 Protein, Total 6.1 g/dL 6.0-8.5 Albumin 4.0 g/dL 3.6-4.6 Globulin, Total 2.1 g/dL 1.5-4.5 A/G Ratio 1.9 1.2-2.2 Bilirubin, Total 0.7 mg/dL 0.0-1.2 Alkaline Phosphatase 91 IU/L 48-121 26 Ast (Sgot) 12 IU/L 0-40 Alt (SGPT) 8 IU/L 0-32 Hemoglobin A1c 03/17/2021 [facility] [address] [place] [address] [phone] Hemoglobin A1c 4.8 % 4.8-5.6 27 Type & Screen -Incl Blood Type,Tye,AB SC 03/14/2021 [place] [address] [phone] Blood Type O POSITIVE Normal AB Screen (Indirect [place])Vis NEGATIVE Normal Laboratory test finding 03/14/2021 [place] [address] [phone] Packed Cells TRANSFUSED PRODU <SEE NOTE> 28 CBC With Differential 03/14/2021 [place] [address] [phone] White Blood Count 4.0 10 Normal 4.0-10.0 [...] 36.0-66.0 Lymph % 6.8 % Low 24.0-44.0 [place] % 9.3 % High 2.0-8.0 Eos % 1.0 % Normal 0.0-3.0 Baso % 0.8 % Normal 0.0-1.0 Immature Granulocyte % 0.3 % Normal 0-3.0 Nucleated Red Blood Cell % 0.0 % Normal 0-0 Neutrophils # 3.3 10 Normal 1.5-8.5 Lymph # 0.3 10 Low 1.5-5.0 [place] # 0.4 10 Normal 0.0-0.8 Eos # 0.0 10 Normal 0.0-0.5 Baso # 0.0 10 Normal 0.0-0.2 CBC With Differential 03/10/2021 [place] [address] [phone] White Blood Count 3.4 10 Low 4.0-10.0 [...] 36.0-66.0 Lymph % 7.6 % Low 24.0-44.0 [place] % 12.9 % High 2.0-8.0 Eos % 1.2 % Normal 0.0-3.0 Baso % 0.6 % Normal 0.0-1.0 Immature Granulocyte % 0.3 % Normal 0-3.0 Nucleated Red Blood Cell % 0.0 % Normal 0-0 Neutrophils # 2.6 10 Normal 1.5-8.5 Lymph # 0.3 10 Low 1.5-5.0 [place] # 0.4 10 Normal 0.0-0.8 Eos # 0.0 10 Normal 0.0-0.5 Baso # 0.0 10 Normal 0.0-0.2 Comprehensive Metabolic Profil 03/10/2021 [place] [address] [phone] Glucose, Fasting 166 mg/dL High 70-100 Blood Urea Nitrogen 26 mg/dL High 7-18 Creatinine For GFR 0.73 mg/dL Normal 0.55-1.30 Glomerular Filtration Rate > 60.0 Normal >32 2 9 Sodium Level 141 mEq/L Normal 136-145 [...] Binding Capacit 03/10/2021 [place] [address] [phone] Iron (Fe) 72 g/dL Normal 50-170 Total Iron Binding Capacity 352 g/dL Normal 250-450 Percent Saturation 20.5 % Normal 13.2-45.0 Laboratory test finding 03/10/2021 [place] [address] [phone] Carcinoembryonic Antigen < 0.5 NG/ML Normal <2.5 30 Ferritin 492 NG/ML High 8-252 Laboratory test finding 02/28/2021 [place] [address] [phone] Packed Cells TRANSFUSED PRODU <SEE NOTE> 31 Type & Screen -Incl Blood Type,Tye,AB SC 02/28/2021 [place] [address] [phone] Blood Type O POSITIVE Normal AB Screen (Indirect [place])Vis NEGATIVE Normal Laboratory test finding 02/27/2021 [place] [address] [phone] Blood Urea Nitrogen 26 mg/dL High 7-18 CBC With Differential 02/27/2021 [place] [address] [phone] White Blood Count 6.0 10 Normal 4.0-10.0 [...] 36.0-66.0 Lymph % 4.7 % Low 24.0-44.0 [place] % 11.6 % High 2.0-8.0 Eos % 0.5 % Normal 0.0-3.0 Baso % 0.3 % Normal 0.0-1.0 Immature Granulocyte % 0.8 % Normal 0-3.0 Nucleated Red Blood Cell % 0.3 % High 0-0 Neutrophils # 4.9 10 Normal 1.5-8.5 Lymph # 0.3 10 Low 1.5-5.0 [place] # 0.7 10 Normal 0.0-0.8 Eos # 0.0 10 Normal 0.0-0.5 Baso # 0.0 10 Normal 0.0-0.2 Laboratory test finding 02/27/2021 Patient Service [place], [place] [address]1765 [phone] Ferritin 1039 NG/ML High 8-252 Total Iron Binding Capacit 02/27/2021 Patient Servi [place], [place] 5541825 [phone] Iron (Fe) 79 g/dL Normal 50-170 Total Iron Binding Capacity 384 g/dL Normal 250-450 Percent Saturation 20.6 % Normal 13.2-45.0 Creatinine With GFR 02/27/2021 Patient Service [place], [place] 1348580 [phone] Creatinine For GFR 0.76 mg/dL Normal 0.55-1.30 Glomerular Filtration Rate > 60.0 Normal >32 3 2 Laboratory test finding 02/10/2021 [place] [address] [phone] Packed Cells TRANSFUSED PRODU <SEE NOTE> 33 Type & Screen -Incl Blood Type,Tye,AB SC 02/10/2021 [place] [address] [phone] Blood Type O POSITIVE Normal AB Screen (Indirect Farooq)Vis NEGATIVE Normal CBC With Differential 02/09/2021 [place] [address] [phone] White Blood Count 3.9 10 Low 4.0-10.0 [...] 36.0-66.0 Lymph % 7.2 % Low 24.0-44.0 [place] % 10.0 % High 2.0-8.0 Eos % 1.0 % Normal 0.0-3.0 Baso % 0.5 % Normal 0.0-1.0 Immature Granulocyte % 0.5 % Normal 0-3.0 Nucleated Red Blood Cell % 0.0 % Normal 0-0 Neutrophils # 3.1 10 Normal 1.5-8.5 Lymph # 0.3 10 Low 1.5-5.0 [place] # 0.4 10 Normal 0.0-0.8 Eos # 0.0 10 Normal 0.0-0.5 Baso # 0.0 10 Normal 0.0-0.2 Laboratory test finding 01/27/2021 [place] [address] [phone] Ferritin 39 NG/ML Normal 8-252 Carcinoembryonic Antigen 0.5 NG/ML Normal <2.5 34 Comprehensive Metabolic Profil 01/27/2021 [place] [address] [phone] Glucose, Fasting 59 mg/dL Low 70-100 Blood Urea Nitrogen 25 mg/dL High 7-18 Creatinine For GFR 0.71 mg/dL Normal 0.55-1.30 Glomerular Filtration Rate > 60.0 Normal >32 3 5 Sodium Level 141 mEq/L Normal 136-145 [...] CBC With Differential 01/27/2021 Patient Service [place], [place] 3166309 [phone] White Blood Count 4.2 10 Normal 4.0-10.0 [...] 36.0-66.0 Lymph % 13.6 % Low 24.0-44.0 [place] % 14.6 % High 2.0-8.0 Eos % 1.4 % Normal 0.0-3.0 Baso % 0.5 % Normal 0.0-1.0 Immature Granulocyte % 0.5 % Normal 0-3.0 Nucleated Red Blood Cell % 0.0 % Normal 0-0 Neutrophils # 2.9 10 Normal 1.5-8.5 Lymph # 0.6 10 Low 1.5-5.0 [place] # 0.6 10 Normal 0.0-0.8 Eos # 0.1 10 Normal 0.0-0.5 Baso # 0.0 10 Normal 0.0-0.2 Total Iron Binding Capacit 01/27/2021 [place] [address] [phone] Iron (Fe) 59 g/dL Normal 50-170 Total Iron Binding Capacity 397 g/dL Normal 250-450 Percent Saturation 14.9 % Normal 13.2-45.0 Complete Blood Count 01/20/2021 [place] [address] [phone] White Blood Count 3.3 10 Low 4.0-10.0 [...] 0-0 Laboratory test finding 01/20/2021 [place] [address] [phone] Blood Urea Nitrogen 21 mg/dL High 7-18 Creatinine With GFR 01/20/2021 [place] [address] [phone] Creatinine For GFR 0.69 mg/dL Normal 0.55-1.30 Glomerular Filtration Rate > 60.0 Normal >32 3 6 Type & Screen -Incl Blood Type,Tye,AB SC 01/20/2021 [place] [address] [phone] Blood Type O POSITIVE Normal AB Screen (Indirect Farooq)Vis NEGATIVE Normal Coronavirus 2019 Nasopharygeal 01/16/2021 [place] [address] [phone] Coronavirus 2019 Nasopharygeal ASSAY INFORMATIO <SEE N OTE> 37 Type & Screen -Incl Blood Type,Tye,AB SC 01/03/2021 [place] [address] [phone] Blood Type O POSITIVE Normal AB Screen (Indirect [place])Vis NEGATIVE Normal Laboratory test finding 01/03/2021 [place] [address] [phone] Packed Cells TRANSFUSED PRODU <SEE NOTE> 38 Comprehensive Metabolic Profil 01/02/[address] [place] [address] [phone] Glucose, Fasting 155 mg/dL High 70-100 Blood Urea Nitrogen 24 mg/dL High 7-18 Creatinine For GFR 0.85 mg/dL Normal 0.55-1.30 Glomerular Filtration Rate > 60.0 Normal >32 3 9 Sodium Level 137 mEq/L Normal 136-145 [...] Ratio 1.1 Low 1.2-2.2 Laboratory test finding 01/02/2021 [place] [address] [phone] Thyroid Stimulating Hormone 1.660 uIU/ML Normal 0. 358-3.740 Free T4 0.87 ng/dL Normal 0.76-1.46 Ferritin 58 NG/ML Normal 8-252 Total Iron Binding Capacit 01/02/2021 [place] [address] [phone] Iron (Fe) 55 g/dL Normal 50-170 Total Iron Binding Capacity 398 g/dL Normal 250-450 Percent Saturation 13.8 % Normal 13.2-45.0 CBC With Differential 01/02/2021 [place] [address] [phone] White Blood Count 4.3 10 Normal 4.0-10.0 [...] 36.0-66.0 Lymph % 10.7 % Low 24.0-44.0 [place] % 13.1 % High 2.0-8.0 Eos % 0.7 % Normal 0.0-3.0 Baso % 0.5 % Normal 0.0-1.0 Immature Granulocyte % 0.5 % Normal 0-3.0 Nucleated Red Blood Cell % 0.0 % Normal 0-0 Neutrophils # 3.2 10 Normal 1.5-8.5 Lymph # 0.5 10 Low 1.5-5.0 [place] # 0.6 10 Normal 0.0-0.8 Eos # 0.0 10 Normal 0.0-0.5 Baso # 0.0 10 Normal 0.0-0.2 Laboratory test finding 12/23/2020 [place] [address] [phone] iSTAT Troponin 0.01 NG/ML Normal 0.00-0.08 Istat Chem8+ Panel 12/23/2020 [place] [address] [phone] iSTAT HCT 33.0 % Low 38.0-51.0 iSTAT Glucose 94 mg/dL Normal 70-105 iSTAT Sodium 138 mEq/L Normal 136-145 iSTAT Potassium 4.2 mEq/L Normal 3.5-5.1 iSTAT CA++ 5.0 mg/dL Normal 4.5-5.3 iSTAT Chloride 102 mEq/L Normal 98-109 iSTAT Co2 27.0 MM/L Normal 23.0-27.0 iSTAT BUN 20 mg/dL Normal 8-26 iSTAT Creatinine 0.7 mg/dL Normal 0.6-1.3 CBC With Differential 12/23/2020 Patient Service [facility] [place] [address] [phone] White Blood Count 4.5 10 Normal 4.0-10.0 [...] 36.0-66.0 Lymph % 9.7 % Low 24.0-44.0 [place] % 11.9 % High 2.0-8.0 Eos % 0.9 % Normal 0.0-3.0 Baso % 0.4 % Normal 0.0-1.0 Immature Granulocyte % 0.4 % Normal 0-3.0 Nucleated Red Blood Cell % 0.0 % Normal 0-0 Neutrophils # 3.5 10 Normal 1.5-8.5 Lymph # 0.4 10 Low 1.5-5.0 [place] # 0.5 10 Normal 0.0-0.8 Eos # 0.0 10 Normal 0.0-0.5 Baso # 0.0 10 Normal 0.0-0.2 PT & Aptt 12/23/[facility] [place] [id number] [phone] Prothrombin Time 13.3 seconds Normal 12.5-14.3 Inr 0.99 Normal 40 Partial Thromboplastin Time 29.5 seconds Normal 24.2-38.5 Liver Profile 12/23/2020 [place] [address] [phone] Ast/Sgot 13 U/L Normal 7-37 Alt/SGPT 14 U/L Normal 12-78 Alkaline Phosphatase 95 U/L Normal 45-117 Bilirubin,Total 0.9 mg/dL Normal 0.2-1.0 Bilirubin,Direct 0.3 mg/dL High 0.0-0.2 Total Protein 6.5 GM/DL Normal 6.4-8.2 Albumin 3.4 GM/DL Normal 3.2-5.2 Albumin/Globulin Ratio 1.1 Low 1.2-2.2 Laboratory test finding 12/23/2020 [place] [address] [phone] Lipase 73 U/L Normal 73-393 Lactic Acid Sepsis Protocol 0.8 mmol/L Normal 0.4-2.0 41 CBC With Differential 12/19/2020 [place] [address] [phone] White Blood Count 3.8 10 Low 4.0-10.0 [...] 36.0-66.0 Lymph % 11.7 % Low 24.0-44.0 [place] % 11.9 % High 2.0-8.0 Eos % 1.1 % Normal 0.0-3.0 Baso % 0.3 % Normal 0.0-1.0 Immature Granulocyte % 0.5 % Normal 0-3.0 Nucleated Red Blood Cell % 0.0 % Normal 0-0 Neutrophils # 2.8 10 Normal 1.5-8.5 Lymph # 0.4 10 Low 1.5-5.0 [place] # 0.5 10 Normal 0.0-0.8 Eos # 0.0 10 Normal 0.0-0.5 Baso # 0.0 10 Normal 0.0-0.2 1 TRANSFUSED PRODUCT: PACKED C ELLS COUNT: 3 2 TRANSFUSED PRODUCT: PACKED C ELLS COUNT: 2 3 TRANSFUSED PRODUCT: PACKED C ELLS COUNT: 3 4 TRANSFUSED PRODUCT: PACKED C ELLS COUNT: 2 5 TRANSFUSED PRODUCT: PACKED C ELLS COUNT: 1 6 OCCULT BLOOD 1 POSITIVE 7 TRANSFUSED PRODUCT: PACKED C ELLS COUNT: 2 8 FVIII activity can increase in a variety [...] been elucidated (Br J Haematol. 2012; 157:653-663). 9 This test was developed and its performance characteristics determined by [facility]. It has not been cleared or approved by the Food and Drug Administration. 10 --- COAGULATION: VON WILLEBRAND FACTOR ASSESSMENT CURRENT [...] cofactor activity; FVIII - factor VIII activity. DAMPENER: For questions regarding panel interpretation, please contact Mikal Wasserman M.D. at [employer] at . DISCLAIMER These assessments and interpretations [...] (1) The National Heart, Lung and Blood [place]. The Diagnosis, Evaluation and Management of von Willebrand Disease. [place], [place]: National Institutes of Health Publication 08-5832. 2007. Available at http://www.nhlbi.nih.gov/guidelines/vwd/. (2) Tayo MONTES et al. Am J Hematol. 2009; 84(6):366-370. (3) Pam M et al. Haemophilia. 2004;10(3):199-217. (4) Lety WOODRUFF et al. Haemophilia. 2004; 10(3):218-231. 11 UNABLE TO PERFORM TEST DUE T O hct <35% 12 THERAPUTIC HUMAN INR VALUES INDICATIONS NORMAL RANGES PROPHYLAXIS/TREATMENT OF: VENOUS THROMBOSIS 2.0-3.0 PULMONARY EMBOLISM 2.0-3.0 PREVENTION OF SYSTEMIC EMBOLISM FROM: TISSUE HEART VALVES 2.0-3.0 ACUTE MYOCARDIAL INFARCTION 2.0-3.0 VALVULAR HEART DISEASE 2.0-3.0 ATRIAL FIBRILLATION 2.0-3.0 MECHANICAL VALVES(HIGH RISK) 2.5-3.5 RECURRENT MYOCARDIAL INFARCTION 2.5-3.5 13 Performed at: - [facility] [id number] Car Varnisher: Matt Mcdonnell MD, Phone: [phone] Performed at: [facility] [address] [place], [place], [place] [id number] Car Varnisher: Gary Youngblood MD, Phone: [phone] Performed at: [facility] [id number] Car Varnisher: Teresa Nguyen MD, Phone: [phone] ASSAY INFORMATION: Real Time RT-PCR or TMA. Both RT-PCR and TMA are nucleic acid amplification tests (NAAT) which are molecular testing modalities and recommended by the CDC for passenger travel. Testing and International Air Travel, cdc.gov/coronavirus/2019-ncov/travelers/irvfewn-mwf-nzvoss.html 09/01/2020 NOTE: The COVID-19 assay is under Emergency Use Authorization (EUA) by the U.S. Food and Drug Administration. [facility] and [facility] are designated as high complexity laboratories by the Clinical Laboratory Improvement Amendments of 1988 (CLIA) and are qualified to perform this test. Not Detected 15 TRANSFUSED PRODUCT: PACKED C ELLS COUNT: 3 16 THE CEA ASSAY IS PERFORMED O N THE [employer] BY CHEMILUMINESCENCE AND SHOULD NOT BE COMPARED INTERCHANGEABLY WITH OTHER METHODS. IT SHOULD NOT BE USED ALONE A SCREENING TEST OR DIAGNOSIS FOR THE PRESENCE OR ABSENCE OF MALIGNANT DISEASE. PREDICTIONS OF DISEASE RECURRENCE SHOULD NOT BE BASED SOLELY ON VALUES OBTAINED FROM SERIAL PATIENT SERUM VALUES. 17 Units are mL/min/1.73 m2 Chronic Kidney Disease Staging per NKF: Stage I & II GFR >=60 Normal to Mildly Decreased Stage III GFR 30-59 Moderately Decreased Stage IV GFR 15-29 Severely Decreased Stage V GFR <15 Very Little GFR Left ESRD GFR <15 on BLOOD BANK TECHNICIAN 18 Units are mL/min/1.73 m2 Chronic Kidney Disease Staging per NKF: Stage I & II GFR >=60 Normal to Mildly Decreased Stage III GFR 30-59 Moderately Decreased Stage IV GFR 15-29 Severely Decreased Stage V GFR <15 Very Little GFR Left ESRD GFR <15 on BLOOD BANK TECHNICIAN 19 Negative results do not prec lude influenza or RSV virus infection and should not be used as the sole basis for treatment or other patient management decisions. 20 Negative results do not prec lude influenza or RSV virus infection and should not be used as the sole basis for treatment or other patient management decisions. 21 Negative results do not prec lude influenza or RSV virus infection and should not be used as the sole basis for treatment or other patient management decisions. 22 A false negative result may occur if [...] pathogens. DISCLAIMER: Testing was performed using the [employer] SARS-CoV-2 test. This test was developed and its performance characteristics determined by [facility]. This test has not been FDA cleared [...] the authorization is terminated or revoked sooner. 23 TRANSFUSED PRODUCT: PACKED C ELLS COUNT: 1 24 Normal: 0 - 29 Moderately increased: 30 - 300 Severely increased: >300 25 [facility] currently reports eGFR in compliance with the current recommendations of the National Kidney Foundation. [facility] will update reporting as new guidelines are published from the NKF-ASN Task force. 26 Effective March 27 21 Alkaline Phosphatase reference [...] years 44 - 121 44 - 121 27 Prediabetes: 5.7 - 6.4 Diabetes: >6.4 Glycemic control for adults with diabetes: <7.0 28 TRANSFUSED PRODUCT: PACKED C ELLS COUNT: 2 29 Units are mL/min/1.73 m2 Chronic Kidney Disease Staging per NKF: Stage I & II GFR >=60 Normal to Mildly Decreased Stage III GFR 30-59 Moderately Decreased Stage IV GFR 15-29 Severely Decreased Stage V GFR <15 Very Little GFR Left ESRD GFR <15 on BLOOD BANK TECHNICIAN 30 THE CEA ASSAY IS PERFORMED O N THE [employer] BY CHEMILUMINESCENCE AND SHOULD NOT BE COMPARED INTERCHANGEABLY WITH OTHER METHODS. IT SHOULD NOT BE USED ALONE A SCREENING TEST OR DIAGNOSIS FOR THE PRESENCE OR ABSENCE OF MALIGNANT DISEASE. PREDICTIONS OF DISEASE RECURRENCE SHOULD NOT BE BASED SOLELY ON VALUES OBTAINED FROM SERIAL PATIENT SERUM VALUES. 31 TRANSFUSED PRODUCT: PACKED C ELLS COUNT: 2 32 Units are mL/min/1.73 m2 Chronic Kidney Disease Staging per NKF: Stage I & II GFR >=60 Normal to Mildly Decreased Stage III GFR 30-59 Moderately Decreased Stage IV GFR 15-29 Severely Decreased Stage V GFR <15 Very Little GFR Left ESRD GFR <15 on BLOOD BANK TECHNICIAN 33 TRANSFUSED PRODUCT: PACKED C ELLS COUNT: 2 34 THE CEA ASSAY IS PERFORMED O N THE [facility] [facility] BY CHEMILUMINESCENCE AND SHOULD NOT BE COMPARED INTERCHANGEABLY WITH OTHER METHODS. IT SHOULD NOT BE USED ALONE A SCREENING TEST OR DIAGNOSIS FOR THE PRESENCE OR ABSENCE OF MALIGNANT DISEASE. PREDICTIONS OF DISEASE RECURRENCE SHOULD NOT BE BASED SOLELY ON VALUES OBTAINED FROM SERIAL PATIENT SERUM VALUES. 35 Units are mL/min/1.73 m2 Chronic Kidney Disease Staging per NKF: Stage I & II GFR >=60 Normal to Mildly Decreased Stage III GFR 30-59 Moderately Decreased Stage IV GFR 15-29 Severely Decreased Stage V GFR <15 Very Little GFR Left ESRD GFR <15 on BLOOD BANK TECHNICIAN 36 Units are mL/min/1.73 m2 Chronic Kidney Disease Staging per NKF: Stage I & II GFR >=60 Normal to Mildly Decreased Stage III GFR 30-59 Moderately Decreased Stage IV GFR 15-29 Severely Decreased Stage V GFR <15 Very Little GFR Left ESRD GFR <15 on BLOOD BANK TECHNICIAN 37 ASSAY INFORMATION: Real Time RT-PCR NOTE: The COVID-19 assay has been cleared by the U.S. Food and Drug Administration under the Emergency Use Authorization (EUA). [facility] and [facility] are designated as high complexity laboratories by the Clinical Laboratory Improvement Amendments of 1988(CLIA) and are qualified to perform this test. Not Detected 38 TRANSFUSED PRODUCT: PACKED C ELLS COUNT: 1 39 Units are mL/min/1.73 m2 Chronic Kidney Disease Staging per NKF: Stage I & II GFR >=60 Normal to Mildly Decreased Stage III GFR 30-59 Moderately Decreased Stage IV GFR 15-29 Severely Decreased Stage V GFR <15 Very Little GFR Left ESRD GFR <15 on BLOOD BANK TECHNICIAN 40 THERAPUTIC HUMAN INR VALUES INDICATIONS NORMAL RANGES PROPHYLAXIS/TREATMENT OF: VENOUS THROMBOSIS 2.0-3.0 PULMONARY EMBOLISM 2.0-3.0 PREVENTION OF SYSTEMIC EMBOLISM FROM: TISSUE HEART VALVES 2.0-3.0 ACUTE MYOCARDIAL INFARCTION 2.0-3.0 VALVULAR HEART DISEASE 2.0-3.0 ATRIAL FIBRILLATION 2.0-3.0 MECHANICAL VALVES(HIGH RISK) 2.5-3.5 RECURRENT MYOCARDIAL INFARCTION 2.5-3.5 41 Y/N query for Sepsis Lactate Rule: Y Procedures Date Code Description Status 03/28/2021 83872 [place] W/I 7 Days Of DC, Comm W/I 2 Dys Completed 03/23/2021 56024 Office/Outpatient Established Mo d MDM 30-39 Min Completed 03/23/2021 [id number] Diabetic Foot Exam Completed 01/25/2021 27543 [place] W/I 7 Days Of DC, Comm W/I 2 Dys Completed 12/27/2020 98799 Office/Outpatient Established Mo d MDM 30-39 Min Completed 12/19/2020 98092 Office/Outpatient Established Mo d MDM 30-39 Min [...] Visit 01/25/2021 2:15p Main Office Pleskach, Nadiya, STUDY ABROAD ADVISOR D64.9 Anemia, unspecified K29.61 Other gastritis with bleedin g Office Visit 12/27/2020 3:45p Main Office Anitha Gamez M.D. 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 C18.9 Malignant neoplasm of colon, unspecified I48.91 Unspecified atrial fibrillat ion Assessments Date Code Description Provider 03/28/2021 D64.9 Anemia, unspecified Pleskach, Mo lly, [facility] 03/28/2021 K29.61 Other gastritis with bleeding Pl Nadiya hogan, STUDY ABROAD ADVISOR 03/23/2021 E11.69 Type 2 diabetes mellitus with ot her specified complication Pleskach, Nadiya, STUDY ABROAD ADVISOR 03/23/2021 C18.9 Malignant neoplasm of colon, uns pecified Pleskach Nadiya, STUDY ABROAD ADVISOR 03/23/2021 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 Nadiya Bryan , STUDY ABROAD ADVISOR 03/23/2021 E78.2 Mixed hyperlipidemia Chayo Bryan, STUDY ABROAD ADVISOR 03/23/2021 I10 Essential (primary) hypertension Pleskach, Nadiya, STUDY ABROAD ADVISOR 03/23/2021 I48.91 Unspecified atrial fibrillation Pleskach Nadiya, STUDY ABROAD ADVISOR 03/23/2021 D64.9 Anemia, unspecified Pleskach, Mo lly, STUDY ABROAD ADVISOR 01/25/2021 D64.9 Anemia, unspecified Pleskach, Mo lly, STUDY ABROAD ADVISOR 01/25/2021 K29.61 Other gastritis with bleeding Pl eskachNadiya, STUDY ABROAD ADVISOR 12/27/2020 E11.69 Type 2 diabetes mellitus with ot her specified complication Anitha Gamez M.D. 12/27/2020 C18.9 Malignant neoplasm of colon, uns pecified Anitha Gamez M.D. 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 12/27/2020 D64.9 Anemia, unspecified Angela Gamez M.D. 12/19/2020 E11.69 Type 2 diabetes mellitus with ot her specified complication Nadiya Bryan, STUDY ABROAD ADVISOR 12/19/2020 E78.2 Mixed hyperlipidemia PleChayo tracey, STUDY ABROAD ADVISOR 12/19/2020 I10 Essential (primary) hypertension Nadiya Bryan, STUDY ABROAD ADVISOR 12/19/2020 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 Nadiya Bryan , STUDY ABROAD ADVISOR 12/19/2020 C18.9 Malignant neoplasm of colon, uns pecified Nadiya Bryan FNP 12/19/2020 I48.91 Unspecified atrial fibrillation Nadiya Bryan FNP [...] to Reason for Referral Status Appt Date [facility] Ear, Nose And Throat nose bleed. Closed 0 [address] [facility], [address] [phone]
--- OUTSIDE RECORDS SUMMARY | 2021-06-19 13:36 | CCD | Continuity of Care Document ---
Author Author Meron ALMEIDA MD Organization Unknown Address [address] [facility], [address] [place] [address] Phone [phone] Care Team Providers Care Aircraft Quality Control Inspector Name Role Phone Naila Lambert M.D. AUT[facility] [phone] Nadiya Bryan N.P. AUTM [phone] Niels Decker MD AUTM [phone] AUTM Unavailable Problems Active Problems Provider Date [...] after total 8 weeks course. 60tabs Tanya Cramer M.D. 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 60caps D62 Jeff Cramer M.D. 01/04/2021 - 02/21/2021 Immunizations Description No Information Available Vital Signs Date Vital Result Comment 06/12/2021 12:36pm BP Systolic 124 mmHg BP Diastolic 79 mmHg Height 61 inches 5'1" Weight 123.00 lb BMI (Body Mass Index) 23.2 kg/m2 [place] Body Weight 105 lb Weight 55.793 kg BSA (Body Surface Area) 1.54 m2 06/06/2021 1:50pm BP Systolic 132 mmHg BP Diastolic 81 mmHg Heart Rate 99 /min O2 % BldC Oximetry 99 % Height 61 inches 5'1" Weight 127.00 lb BMI (Body Mass Index) 24.0 kg/m2 [place] Body Weight 105 lb Weight 57.607 kg BSA (Body Surface Area) 1.56 m2 Results Test Acquired Date Facility Test Result H/L Range Note Laboratory test finding 02/27/2021 [facility] Main Lab [address] [place] [address] [phone] Blood Urea Nitrogen 26 mg/dL High 7-18 Creatinine With GFR 02/27/2021 [facility] Main Lab [address] [place], [place] [id number] [phone] Creatinine For GFR 0.76 mg/dL Normal 0.55-1.30 Glomerular Filtration Rate > 60.0 Normal >32 1 Total Iron Binding Capacit 02/27/2021 [facility] Main Lab [address] [place] [address] [phone] Iron (Fe) 79 g/dL Normal 50-170 Total Iron Binding Capacity 384 g/dL Normal 250-450 Percent Saturation 20.6 % Normal 13.2-45.0 Laboratory test finding 02/27/2021 [facility] Main Lab [address] [place] [address] [phone] Ferritin 1039 NG/ML High 8-252 CBC With Differential 02/27/2021 [facility] Main Lab [address] [place] [address] [phone] White Blood Count 6.0 10 Normal 4.0-10.0 [...] 36.0-66.0 Lymph % 4.7 % Low 24.0-44.0 [place] % 11.6 % High 2.0-8.0 Eos % 0.5 % Normal 0.0-3.0 Baso % 0.3 % Normal 0.0-1.0 Immature Granulocyte % 0.8 % Normal 0-3.0 Nucleated Red Blood Cell % 0.3 % High 0-0 Neutrophils # 4.9 10 Normal 1.5-8.5 Lymph # 0.3 10 Low 1.5-5.0 [place] # 0.7 10 Normal 0.0-0.8 Eos # 0.0 10 Normal 0.0-0.5 Baso # 0.0 10 Normal 0.0-0.2 1 Units are mL/min/1.73 m2 Chronic Kidney Disease Staging per NKF: Stage I & II GFR >=60 Normal to Mildly Decreased Stage III GFR 30-59 Moderately Decreased Stage IV GFR 15-29 Severely Decreased Stage V GFR <15 Very Little GFR Left ESRD GFR <15 on TECHNICAL STAFF ENGINEER Procedures Date Code Description Status 06/06/2021 20283 Office/Outpatient Established Lo w MDM 20-29 Min Completed 04/14/2021 83742 Endoscopy Upper GI W/ Ablation O f Tumors/Polyps/Lesions Completed 04/14/2021 11449 Endoscopy Upper GI Control Hemor rhage Completed 03/01/2021 33015 Office/Outpatient Established Lo w MDM 20-29 Min Completed 01/20/2021 80937 Endoscopy Upper GI W/ Ablation O f Tumors/Polyps/Lesions Completed 01/20/2021 17096 Endoscopy Upper GI Control Hemor rhage Completed 01/04/2021 95349 Office/Outpatient Established Mo d MDM 30-39 Min Completed Medical Devices Description No Information Available Encounters Type Date Location Provider Dx Diagnosis Office Visit 06/06/2021 1:45p [facility] Chayo Broussard R04.0 Epistaxis Office Visit 03/01/2021 1:00p [facility] Pra dean Cramer M.D. D62 Acute posthemorrhagic anemia K31.811 Angiodysplasia of stomach an d duodenum with bleeding K92.1 Melena Office Visit 01/04/2021 2:00p [facility] Pra dean Cramer M.D. 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 04/14/2021 K31.811 Angiodysplasia of stomach and du odenum with bleeding Jeff Cramer M.D. 03/01/2021 D62 Acute posthemorrhagic anemia Grace Cramer M.D. 03/01/2021 K31.811 Angiodysplasia of stomach and du odenum with bleeding Jeff Cramer M.D. 03/01/2021 K92.1 Melena Jeff Ambriz ala, M.D. 01/20/2021 D62 Acute posthemorrhagic anemia Grace Cramer M.D. 01/20/2021 K22.8 Other specified diseases of esop hagus Jeff Cramer M.D. 01/20/2021 K31.811 Angiodysplasia of stomach and du odenum with bleeding Jeff Cramer M.D. 01/04/2021 D62 Acute posthemorrhagic anemia Grace Cramer M.D. 01/04/2021 K92.1 Melena Jeff Ambriz ala, M.D. 01/04/2021 Z98.0 Intestinal bypass and anastomosi s status Jeff Cramer M.D. Plan of Treatment Future Appointment(s):* 06/19/2021 3:45 pm - Jeff Cramer M.D. at [facility] Functional Status Description No Information Available Mental Status Description No Information Available Referrals Refer to Dr Reason for Referral Status Appt Date Martin Almeida M.D. NOSEBLEEDS Closed [address] [phone]
--- OUTSIDE RECORDS SUMMARY | 2021-06-19 13:36 | CCD | Continuity of Care Document ---
Author Author Meron BRYAN [employer] Organization Unknown Address [address] [place] [address] Phone [phone] Care Team Providers Care Input Output Clerk Name Role Phone [facility] AUTM [phone] Niels Decker M.D. AUTM [phone] [facility] AUTM Jeff Cramer AUTM [phone] Problems Active Problems Provider Date Type 2 [...] 236units C18.9 Nadiya Bryan FNP 06/16/2020 Z93.2 Josephine Remover Wipes Misc use 3-4 wipes every 4 days and as needed when changing ostomy 2Box Z93.2 Nadiya Bryan FNP 06/16/2020 C18.9 Efren Adapt Ceraing change every 4-5 days and as needed ref #[id number] 20units Nadiya Bryan FNP 05/05/2020 [place] 2 Piece Ostomy Skin Barrier ref # [id number] márquez ge every 4-5 days and as needed 20units C18.9 Nadiya Bryan FNP 04/14/2020 Z93.2 [place] 2 Piece Drainable Ostomy Pouch ref # [id number] c hange every 4-5 days and as [...] CPT Code Status Date Vaccine Lot # [id number] Refused 04/17/2016 Pneumococcal Vaccine 91949 Refused 04/17/2016 Prevnar 13 37142 Refused 04/17/2016 Influenza Vaccination Vital Signs Date Vital Result Comment 03/28/2021 11:51am BP Systolic 113 mmHg BP Diastolic 83 mmHg Heart Rate 127 /min Body Temperature 98.0 F Respiratory Rate 18 /min Height 61.5 inches 5'1.50" Weight 114.38 lb O2 % BldC Oximetry 100 % [place] Body Weight 105 lb BMI (Body Mass Index) 21.3 kg/m2 03/23/2021 3:47pm BP Systolic 110 mmHg BP Diastolic 62 mmHg Heart Rate 64 /min Body Temperature 98.7 F Respiratory Rate 16 /min Height 61.5 inches 5'1.50" Weight 116.38 lb O2 % BldC Oximetry 99 % [place] Body Weight 105 lb BMI (Body Mass Index) 21.6 kg/m2 Results Test Acquired Date Facility Test Result H/L Range Note CBC With Differential 06/14/2021 [place] [address] [phone] White Blood Count 4.5 10 Normal 4.0-10.0 Red Blood Count 2.43 10 Low 4.00-5.40 Hemoglobin 7.4 g/dL Low 12.0-15.5 Hematocrit 24.0 % Low 36.0-47.0 Mean Corpuscular Volume 98.8 fl High 80.0-96.0 Mean Corpuscular Hemoglobin 30.5 pg Normal 27.0-33.0 Mean Corpuscular HGB Conc 30.8 g/dL Low 32.0-36.5 Red Cell Distribution Width 15.8 % High 11.5-14.5 Platelet Count, Automated 292 10 Normal 150-450 Neutrophils % 79.1 % High 36.0-66.0 Lymph % 6.4 % Low 24.0-44.0 [place] % 12.6 % High 2.0-8.0 Eos % 1.1 % Normal 0.0-3.0 Baso % 0.4 % Normal 0.0-1.0 Immature Granulocyte % 0.4 % Normal 0-3.0 Nucleated Red Blood Cell % 0.0 % Normal 0-0 Neutrophils # 3.6 10 Normal 1.5-8.5 Lymph # 0.3 10 Low 1.5-5.0 [place] # 0.6 10 Normal 0.0-0.8 Eos # 0.1 10 Normal 0.0-0.5 Baso # 0.0 10 Normal 0.0-0.2 CBC With Differential 06/07/2021 [place] [address] [phone] White Blood Count 5.0 10 Normal 4.0-10.0 [...] 36.0-66.0 Lymph % 4.8 % Low 24.0-44.0 [place] % 11.8 % High 2.0-8.0 Eos % 2.0 % Normal 0.0-3.0 Baso % 0.4 % Normal 0.0-1.0 Immature Granulocyte % 0.6 % Normal 0-3.0 Nucleated Red Blood Cell % 0.0 % Normal 0-0 Neutrophils # 4.0 10 Normal 1.5-8.5 Lymph # 0.2 10 Low 1.5-5.0 [place] # 0.6 10 Normal 0.0-0.8 Eos # 0.1 10 Normal 0.0-0.5 Baso # 0.0 10 Normal 0.0-0.2 Laboratory test finding 06/07/2021 Patient Service [place] [id number] [phone] Packed Cells TRANSFUSED PRODU <SEE NOTE> 1 Type & Screen -Incl Blood Type,Tye,AB SC 06/07/2021 [place] [address] [phone] Blood Type O POSITIVE Normal AB Screen (Indirect Farooq)Vis NEGATIVE Normal CBC With Differential 05/31/2021 [place] [address] [phone] White Blood Count 4.9 10 Normal 4.0-10.0 [...] 36.0-66.0 Lymph % 6.5 % Low 24.0-44.0 [place] % 11.0 % High 2.0-8.0 Eos % 1.8 % Normal 0.0-3.0 Baso % 0.6 % Normal 0.0-1.0 Immature Granulocyte % 0.8 % Normal 0-3.0 Nucleated Red Blood Cell % 0.0 % Normal 0-0 Neutrophils # 3.9 10 Normal 1.5-8.5 Lymph # 0.3 10 Low 1.5-5.0 [place] # 0.5 10 Normal 0.0-0.8 Eos # 0.1 10 Normal 0.0-0.5 Baso # 0.0 10 Normal 0.0-0.2 Laboratory test finding 05/31/2021 [place] [address] [phone] Packed Cells TRANSFUSED PRODU <SEE NOTE> 2 Type & Screen -Incl Blood Type,Tye,AB SC 05/31/2021 [place] [address] [phone] Blood Type O POSITIVE Normal AB Screen (Indirect Farooq)Vis NEGATIVE Normal CBC With Differential 05/24/2021 [place] [address] [phone] White Blood Count 5.2 10 Normal 4.0-10.0 [...] 36.0-66.0 Lymph % 4.2 % Low 24.0-44.0 [place] % 11.7 % High 2.0-8.0 Eos % 1.9 % Normal 0.0-3.0 Baso % 0.6 % Normal 0.0-1.0 Immature Granulocyte % 0.6 % Normal 0-3.0 Nucleated Red Blood Cell % 0.0 % Normal 0-0 Neutrophils # 4.2 10 Normal 1.5-8.5 Lymph # 0.2 10 Low 1.5-5.0 [place] # 0.6 10 Normal 0.0-0.8 Eos # 0.1 10 Normal 0.0-0.5 Baso # 0.0 10 Normal 0.0-0.2 Laboratory test finding 05/24/2021 [place] [address] [phone] Packed Cells TRANSFUSED PRODU <SEE NOTE> 3 Type & Screen -Incl Blood Type,Tye,AB SC 05/24/2021 [place] [address] [phone] Blood Type O POSITIVE Normal AB Screen (Indirect Farooq)Vis NEGATIVE Normal CBC With Differential 05/17/2021 Patient Service Ce nter [place] 1750239 [phone] White Blood Count 4.6 10 Normal 4.0-10.0 [...] 36.0-66.0 Lymph % 5.7 % Low 24.0-44.0 [place] % 11.3 % High 2.0-8.0 Eos % 1.7 % Normal 0.0-3.0 Baso % 0.4 % Normal 0.0-1.0 Immature Granulocyte % 0.4 % Normal 0-3.0 Nucleated Red Blood Cell % 0.0 % Normal 0-0 Neutrophils # 3.7 10 Normal 1.5-8.5 Lymph # 0.3 10 Low 1.5-5.0 [place] # 0.5 10 Normal 0.0-0.8 Eos # 0.1 10 Normal 0.0-0.5 Baso # 0.0 10 Normal 0.0-0.2 Type & Screen -Incl Blood Type,Tye,AB SC 05/17/2021 [place] [address] [phone] Blood Type O POSITIVE Normal AB Screen (Indirect Farooq)Vis NEGATIVE Normal Laboratory test finding 05/17/2021 [place] [address] [phone] Packed Cells TRANSFUSED PRODU <SEE NOTE> 4 CBC With Differential 05/10/2021 Patient Service Ce nter [place] 1750239 [phone] White Blood Count 5.2 10 Normal 4.0-10.0 [...] 36.0-66.0 Lymph % 4.8 % Low 24.0-44.0 [place] % 8.7 % High 2.0-8.0 Eos % 1.2 % Normal 0.0-3.0 Baso % 0.4 % Normal 0.0-1.0 Immature Granulocyte % 0.6 % Normal 0-3.0 Nucleated Red Blood Cell % 0.0 % Normal 0-0 Neutrophils # 4.4 10 Normal 1.5-8.5 Lymph # 0.3 10 Low 1.5-5.0 [place] # 0.5 10 Normal 0.0-0.8 Eos # 0.1 10 Normal 0.0-0.5 Baso # 0.0 10 Normal 0.0-0.2 CBC With Differential 05/08/2021 [place] [address] [phone] White Blood Count 4.8 10 Normal 4.0-10.0 [...] 36.0-66.0 Lymph % 5.2 % Low 24.0-44.0 [place] % 11.2 % High 2.0-8.0 Eos % 1.4 % Normal 0.0-3.0 Baso % 0.4 % Normal 0.0-1.0 Immature Granulocyte % 0.4 % Normal 0-3.0 Nucleated Red Blood Cell % 0.0 % Normal 0-0 Neutrophils # 3.9 10 Normal 1.5-8.5 Lymph # 0.3 10 Low 1.5-5.0 [place] # 0.5 10 Normal 0.0-0.8 Eos # 0.1 10 Normal 0.0-0.5 Baso # 0.0 10 Normal 0.0-0.2 Type & Screen -Incl Blood Type,Tye,AB SC 05/08/2021 [place] [address] [phone] Blood Type O POSITIVE Normal AB Screen (Indirect Farooq)Vis NEGATIVE Normal Laboratory test finding 05/08/2021 [place] [address] [phone] Packed Cells TRANSFUSED PRODU <SEE NOTE> 5 Occult Blood 05/08/2021 [place] [address] [phone] Occult Blood OCCULT BLOOD 1 <SEE NOTE> Abnormal 6 Laboratory test finding 05/05/2021 [place] [address] [phone] Packed Cells TRANSFUSED PRODU <SEE NOTE> 7 Type & Screen -Incl Blood Type,Tye,AB SC 05/05/2021 [place] [address] [phone] Blood Type O POSITIVE Normal AB Screen (Indirect Farooq)Vis NEGATIVE Normal CBC With Differential 05/05/2021 [place] [address] [phone] White Blood Count 5.1 10 Normal 4.0-10.0 [...] 36.0-66.0 Lymph % 6.3 % Low 24.0-44.0 [place] % 11.5 % High 2.0-8.0 Eos % 0.8 % Normal 0.0-3.0 Baso % 0.4 % Normal 0.0-1.0 Immature Granulocyte % 0.6 % Normal 0-3.0 Nucleated Red Blood Cell % 0.0 % Normal 0-0 Neutrophils # 4.1 10 Normal 1.5-8.5 Lymph # 0.3 10 Low 1.5-5.0 [place] # 0.6 10 Normal 0.0-0.8 Eos # 0.0 10 Normal 0.0-0.5 Baso # 0.0 10 Normal 0.0-0.2 Factor VIII Panel 05/05/2021 [place] [address] [phone] F8 Activity For F8 Panel 214 % High 56-140 8 F8 Antigen For F8 Panel 115 % Normal 50-200 9 F8 Activity vWB For F8 Panel 71 % Normal 50-200 Interpretation: Note Normal . 10 Platelet Function Analysis 05/05/2021 [place] [address] [phone] Collagen Epinephrine TNP seconds Normal 74-162 11 Laboratory test finding 05/05/2021 [place] [address] [phone] Partial Thromboplastin Time 24.9 seconds Low 25 .9-37.0 Prothrombin Time/Inr 05/05/2021 [place] [address] [phone] Prothrombin Time 14.0 seconds Normal 12.7-14.5 Inr 1.04 Normal 12 Retic (Reticulocyte Count) 05/05/2021 [place] [address] [phone] Reticulocyte % 5.9 % High 0.5-1.5 Reticulocyte # 119.8 10 High 17-77 Retic Hemoglobin Equivalent 30.7 pg Normal 24-36 Laboratory test finding 05/05/2021 [place] [address] [phone] LDH Lactate Dehydrogenase 128 U/L Normal 84-246 Haptoglobin 214 mg/dL Normal 41-333 13 CBC With Differential 04/27/2021 [place] [address] [phone] White Blood Count 4.2 10 Normal 4.0-10.0 [...] 36.0-66.0 Lymph % 8.1 % Low 24.0-44.0 [place] % 12.8 % High 2.0-8.0 Eos % 1.0 % Normal 0.0-3.0 Baso % 0.2 % Normal 0.0-1.0 Immature Granulocyte % 0.5 % Normal 0-3.0 Nucleated Red Blood Cell % 0.0 % Normal 0-0 Neutrophils # 3.3 10 Normal 1.5-8.5 Lymph # 0.3 10 Low 1.5-5.0 [place] # 0.5 10 Normal 0.0-0.8 Eos # 0.0 10 Normal 0.0-0.5 Baso # 0.0 10 Normal 0.0-0.2 CBC With Differential 04/20/2021 Patient Service [place] 7560486 [phone] White Blood Count 3.9 10 Low 4.0-10.0 [...] 36.0-66.0 Lymph % 8.8 % Low 24.0-44.0 [place] % 11.9 % High 2.0-8.0 Eos % 1.0 % Normal 0.0-3.0 Baso % 0.5 % Normal 0.0-1.0 Immature Granulocyte % 0.8 % Normal 0-3.0 Nucleated Red Blood Cell % 0.0 % Normal 0-0 Neutrophils # 3.0 10 Normal 1.5-8.5 Lymph # 0.3 10 Low 1.5-5.0 [place] # 0.5 10 Normal 0.0-0.8 Eos # 0.0 10 Normal 0.0-0.5 Baso # 0.0 10 Normal 0.0-0.2 CBC With Differential 04/12/2021 [place] [address] [phone] White Blood Count 4.6 10 Normal 4.0-10.0 [...] 36.0-66.0 Lymph % 6.6 % Low 24.0-44.0 [place] % 9.4 % High 2.0-8.0 Eos % 0.9 % Normal 0.0-3.0 Baso % 0.2 % Normal 0.0-1.0 Immature Granulocyte % 0.4 % Normal 0-3.0 Nucleated Red Blood Cell % 0.0 % Normal 0-0 Neutrophils # 3.8 10 Normal 1.5-8.5 Lymph # 0.3 10 Low 1.5-5.0 [place] # 0.4 10 Normal 0.0-0.8 Eos # 0.0 10 Normal 0.0-0.5 Baso # 0.0 10 Normal 0.0-0.2 Coronavirus 2019 Nasopharygeal 04/10/2021 [place] [address] [phone] Coronavirus 2019 Nasopharygeal ASSAY INFORMATIO <SEE N OTE> 14 Total Iron Binding Capacit 04/07/2021 [place] [address] [phone] Iron (Fe) 48 g/dL Low 50-170 Total Iron Binding Capacity 353 g/dL Normal 250-450 Percent Saturation 13.6 % Normal 13.2-45.0 Type & Screen -Incl Blood Type,Tye,AB SC 04/07/2021 [facility] [place] 1750279 [phone] Blood Type O POSITIVE Normal AB Screen (Indirect [place])Vis NEGATIVE Normal Laboratory test finding 04/07/2021 [place] [address] [phone] Packed Cells TRANSFUSED PRODU <SEE NOTE> 15 CBC With Differential 04/07/2021 [place] [address] [phone] White Blood Count 3.4 10 Low 4.0-10.0 [...] 36.0-66.0 Lymph % 8.5 % Low 24.0-44.0 [place] % 10.9 % High 2.0-8.0 Eos % 0.9 % Normal 0.0-3.0 Baso % 0.6 % Normal 0.0-1.0 Immature Granulocyte % 0.6 % Normal 0-3.0 Nucleated Red Blood Cell % 0.0 % Normal 0-0 Neutrophils # 2.7 10 Normal 1.5-8.5 Lymph # 0.3 10 Low 1.5-5.0 [place] # 0.4 10 Normal 0.0-0.8 Eos # 0.0 10 Normal 0.0-0.5 Baso # 0.0 10 Normal 0.0-0.2 Laboratory test finding 04/07/2021 [place] [address] [phone] Carcinoembryonic Antigen < 0.5 NG/ML Normal <2.5 16 Ferritin 66 NG/ML Normal 8-252 Comprehensive Metabolic Profil 04/07/2021 Patient [place], [place] 5188282 [phone] Glucose, Fasting 184 mg/dL High 70-100 Blood [...] 1.2-2.2 Comprehensive Metabolic Profil 03/24/2021 Patient [place], [place] 6491172 [phone] Glucose, Fasting 96 mg/dL Normal 70-100 Blood [...] RSV Covid Amp 03/24/2021 [place] [address] [phone] Influenza A Amplification NEGATIVE Normal Negati ve 19 Influenza B Amplification NEGATIVE Normal Negative 20 RSV Amplification NEGATIVE Normal Negative 21 Sars Covid-19 Amplification NEGATIVE Normal Negative 22 Laboratory test finding 03/24/2021 [facility] [place] 1750206 [phone] Packed Cells TRANSFUSED PRODU <SEE NOTE> 23 CBC With Differential 03/24/2021 Patient Service Ce [facility]ter [place] 1750236 [phone] White Blood Count 4.6 10 Normal 4.0-10.0 [...] 36.0-66.0 Lymph % 6.2 % Low 24.0-44.0 [place] % 11.4 % High 2.0-8.0 Eos % 0.4 % Normal 0.0-3.0 Baso % 0.4 % Normal 0.0-1.0 Immature Granulocyte % 0.4 % Normal 0-3.0 Nucleated Red Blood Cell % 0.7 % High 0-0 Neutrophils # 3.7 10 Normal 1.5-8.5 Lymph # 0.3 10 Low 1.5-5.0 [place] # 0.5 10 Normal 0.0-0.8 Eos # 0.0 10 Normal 0.0-0.5 Baso # 0.0 10 Normal 0.0-0.2 Albumin/Creatinine Ratio, Random Urine 03/17/2021 [facility] [address] [place] [address] [phone] Creatinine, Urine 120.2 mg/dL Not Estab. Albumin, Urine 20.1 ug/mL Not Estab. Alb/Creat Ratio 17 mg/gcreat 0-29 24 Lipid Panel 03/17/[address] [facility] [address] [place] [address] [phone] Cholesterol, Total 123 mg/dL 100-199 Triglycerides 141 mg/dL 0-149 HDL Cholesterol 37 mg/dL Low >39 VLDL Cholesterol Mark 25 mg/dL 5-40 LDL Chol Calc ([facility]) 61 mg/dL 0-99 Comment: TNP Metabolic Panel (14), Comprehensive 03/17/[address] [facility] [address] [place] [address] [phone] Calcium 9.5 mg/dL 8.7-10.3 Glucose 81 mg/dL [...] 8 IU/L 0-32 Hemoglobin A1c 03/17/[address] [facility] [address] [place] [address] [phone] Hemoglobin A1c 4.8 % 4.8-5.6 27 Type & Screen -Incl Blood Type,Tye,AB SC 03/14/2021 [place] [address] [phone] Blood Type O POSITIVE Normal AB Screen (Indirect [place])Vis NEGATIVE Normal Laboratory test finding 03/14/2021 [place] [address] [phone] Packed Cells TRANSFUSED PRODU <SEE NOTE> 28 CBC With Differential 03/14/2021 [place] [address] [phone] White Blood Count 4.0 10 Normal 4.0-10.0 [...] 36.0-66.0 Lymph % 6.8 % Low 24.0-44.0 [place] % 9.3 % High 2.0-8.0 Eos % 1.0 % Normal 0.0-3.0 Baso % 0.8 % Normal 0.0-1.0 Immature Granulocyte % 0.3 % Normal 0-3.0 Nucleated Red Blood Cell % 0.0 % Normal 0-0 Neutrophils # 3.3 10 Normal 1.5-8.5 Lymph # 0.3 10 Low 1.5-5.0 [place] # 0.4 10 Normal 0.0-0.8 Eos # 0.0 10 Normal 0.0-0.5 Baso # 0.0 10 Normal 0.0-0.2 CBC With Differential 03/10/2021 Patient Service Ce [place] [id number] [phone] White Blood Count 3.4 10 Low 4.0-10.0 [...] 36.0-66.0 Lymph % 7.6 % Low 24.0-44.0 [place] % 12.9 % High 2.0-8.0 Eos % 1.2 % Normal 0.0-3.0 Baso % 0.6 % Normal 0.0-1.0 Immature Granulocyte % 0.3 % Normal 0-3.0 Nucleated Red Blood Cell % 0.0 % Normal 0-0 Neutrophils # 2.6 10 Normal 1.5-8.5 Lymph # 0.3 10 Low 1.5-5.0 [place] # 0.4 10 Normal 0.0-0.8 Eos # 0.0 10 Normal 0.0-0.5 Baso # 0.0 10 Normal 0.0-0.2 Comprehensive Metabolic Profil 03/10/2021 [place] [address] [phone] Glucose, Fasting 166 mg/dL High 70-100 Blood [...] Binding Capacit 03/10/2021 [place] [address] [phone] Iron (Fe) 72 g/dL Normal 50-170 Total Iron Binding Capacity 352 g/dL Normal 250-450 Percent Saturation 20.5 % Normal 13.2-45.0 Laboratory test finding 03/10/2021 [facility] [place] 1750216 [phone] Carcinoembryonic Antigen < 0.5 NG/ML Normal <2.5 30 Ferritin 492 NG/ML High 8-252 Laboratory test finding 02/28/2021 [place] [address] [phone] Packed Cells TRANSFUSED PRODU <SEE NOTE> 31 Type & Screen -Incl Blood Type,Tye,AB SC 02/28/2021 [facility] [place] 1750222 [phone] Blood Type O POSITIVE Normal AB Screen (Indirect Farooq)Vis NEGATIVE Normal Laboratory test finding 02/27/2021 [place] [address] [phone] Blood Urea Nitrogen 26 mg/dL High 7-18 CBC With Differential 02/27/2021 [place] [address] [phone] White Blood Count 6.0 10 Normal 4.0-10.0 [...] Laboratory test finding 02/27/2021 [place] [address] [phone] Ferritin 1039 NG/ML High 8-252 Total Iron Binding Capacit 02/27/2021 [place] [address] [phone] Iron (Fe) 79 g/dL Normal 50-170 Total Iron Binding Capacity 384 g/dL Normal 250-450 Percent Saturation 20.6 % Normal 13.2-45.0 Creatinine With GFR 02/27/2021 [place] [address] [phone] Creatinine For GFR 0.76 mg/dL Normal 0.55-1.30 Glomerular Filtration Rate > 60.0 Normal >32 3 2 Laboratory test finding 02/10/2021 Patient Service [place] 2916645 [phone] Packed Cells TRANSFUSED PRODU <SEE NOTE> 33 Type & Screen -Incl Blood Type,Tye,AB SC 02/10/2021 [place] [address] [phone] Blood Type O POSITIVE Normal AB Screen (Indirect Farooq)Vis NEGATIVE Normal CBC With Differential 02/09/2021 [place] [address] [phone] White Blood Count 3.9 10 Low 4.0-10.0 [...] 36.0-66.0 Lymph % 7.2 % Low 24.0-44.0 [place] % 10.0 % High 2.0-8.0 Eos % 1.0 % Normal 0.0-3.0 Baso % 0.5 % Normal 0.0-1.0 Immature Granulocyte % 0.5 % Normal 0-3.0 Nucleated Red Blood Cell % 0.0 % Normal 0-0 Neutrophils # 3.1 10 Normal 1.5-8.5 Lymph # 0.3 10 Low 1.5-5.0 [place] # 0.4 10 Normal 0.0-0.8 Eos # 0.0 10 Normal 0.0-0.5 Baso # 0.0 10 Normal 0.0-0.2 Laboratory test finding 01/27/2021 [place] [address] [phone] Ferritin 39 NG/ML Normal 8-252 Carcinoembryonic Antigen 0.5 NG/ML Normal <2.5 34 Comprehensive Metabolic Profil 01/27/2021 Patient S [place], [place] 0838395 [phone] Glucose, Fasting 59 mg/dL Low 70-100 Blood [...] CBC With Differential 01/27/2021 [place] [address] [phone] White Blood Count 4.2 10 Normal 4.0-10.0 [...] 36.0-66.0 Lymph % 13.6 % Low 24.0-44.0 [place] % 14.6 % High 2.0-8.0 Eos % 1.4 % Normal 0.0-3.0 Baso % 0.5 % Normal 0.0-1.0 Immature Granulocyte % 0.5 % Normal 0-3.0 Nucleated Red Blood Cell % 0.0 % Normal 0-0 Neutrophils # 2.9 10 Normal 1.5-8.5 Lymph # 0.6 10 Low 1.5-5.0 [place] # 0.6 10 Normal 0.0-0.8 Eos # 0.1 10 Normal 0.0-0.5 Baso # 0.0 10 Normal 0.0-0.2 Total Iron Binding Capacit 01/27/2021 [place] [address] [phone] Iron (Fe) 59 g/dL Normal 50-170 Total Iron Binding Capacity 397 g/dL Normal 250-450 Percent Saturation 14.9 % Normal 13.2-45.0 Complete Blood Count 01/20/2021 [place] [address] [phone] White Blood Count 3.3 10 Low 4.0-10.0 [...] 0-0 Laboratory test finding 01/20/2021 [place] [address] [phone] Blood Urea Nitrogen 21 mg/dL High 7-18 Creatinine With GFR 01/20/2021 [place] [address] [phone] Creatinine For GFR 0.69 mg/dL Normal 0.55-1.30 Glomerular Filtration Rate > 60.0 Normal >32 3 6 Type & Screen -Incl Blood Type,Tye,AB NM 01/20/2021 [place] [address] [phone] Blood Type O POSITIVE Normal AB Screen (Indirect Farooq)Vis NEGATIVE Normal Coronavirus 2019 Nasopharygeal 01/16/2021 [place] [address] [phone] Coronavirus 2019 Nasopharygeal ASSAY INFORMATIO <SEE N OTE> 37 Type & Screen -Incl Blood Type,Tye,AB NM 01/03/2021 [place] [address] [phone] Blood Type O POSITIVE Normal AB Screen (Indirect Farooq)Vis NEGATIVE Normal Laboratory test finding 01/03/2021 [place] [address] [phone] Packed Cells TRANSFUSED PRODU <SEE NOTE> 38 Comprehensive Metabolic Profil 01/02/2021 [place] [address] [phone] Glucose, Fasting 155 mg/dL High 70-100 Blood [...] Laboratory test finding 01/02/2021 [place] [address] [phone] Thyroid Stimulating Hormone 1.660 uIU/ML Normal 0. 358-3.740 Free T4 0.87 ng/dL Normal 0.76-1.46 Ferritin 58 NG/ML Normal 8-252 Total Iron Binding Capacit 01/02/2021 [place] [address] [phone] Iron (Fe) 55 g/dL Normal 50-170 Total Iron Binding Capacity 398 g/dL Normal 250-450 Percent Saturation 13.8 % Normal 13.2-45.0 CBC With Differential 01/02/2021 [place] [address] [phone] White Blood Count 4.3 10 Normal 4.0-10.0 [...] 36.0-66.0 Lymph % 10.7 % Low 24.0-44.0 [place] % 13.1 % High 2.0-8.0 Eos % 0.7 % Normal 0.0-3.0 Baso % 0.5 % Normal 0.0-1.0 Immature Granulocyte % 0.5 % Normal 0-3.0 Nucleated Red Blood Cell % 0.0 % Normal 0-0 Neutrophils # 3.2 10 Normal 1.5-8.5 Lymph # 0.5 10 Low 1.5-5.0 [place] # 0.6 10 Normal 0.0-0.8 Eos # 0.0 10 Normal 0.0-0.5 Baso # 0.0 10 Normal 0.0-0.2 Laboratory test finding 12/23/2020 [place] [address] [phone] iSTAT Troponin 0.01 NG/ML Normal 0.00-0.08 Istat Chem8+ Panel 12/23/2020 Patient Service [place], [place] 3384842 [phone] iSTAT HCT 33.0 % Low 38.0-51.0 iSTAT Glucose 94 mg/dL Normal 70-105 iSTAT Sodium 138 mEq/L Normal 136-145 iSTAT Potassium 4.2 mEq/L Normal 3.5-5.1 iSTAT CA++ 5.0 mg/dL Normal 4.5-5.3 iSTAT Chloride 102 mEq/L Normal 98-109 iSTAT Co2 27.0 MM/L Normal 23.0-27.0 iSTAT BUN 20 mg/dL Normal 8-26 iSTAT Creatinine 0.7 mg/dL Normal 0.6-1.3 CBC With Differential 12/23/2020 [place] [address] [phone] White Blood Count 4.5 10 Normal 4.0-10.0 [...] 36.0-66.0 Lymph % 9.7 % Low 24.0-44.0 [place] % 11.9 % High 2.0-8.0 Eos % 0.9 % Normal 0.0-3.0 Baso % 0.4 % Normal 0.0-1.0 Immature Granulocyte % 0.4 % Normal 0-3.0 Nucleated Red Blood Cell % 0.0 % Normal 0-0 Neutrophils # 3.5 10 Normal 1.5-8.5 Lymph # 0.4 10 Low 1.5-5.0 [place] # 0.5 10 Normal 0.0-0.8 Eos # 0.0 10 Normal 0.0-0.5 Baso # 0.0 10 Normal 0.0-0.2 PT & Aptt 12/23/2020 [place] [address] [phone] Prothrombin Time 13.3 seconds Normal 12.5-14.3 Inr 0.99 Normal 40 Partial Thromboplastin Time 29.5 seconds Normal 24.2-38.5 Liver Profile 12/23/2020 [place] [address] [phone] Ast/Sgot 13 U/L Normal 7-37 Alt/SGPT 14 U/L Normal 12-78 Alkaline Phosphatase 95 U/L Normal 45-117 Bilirubin,Total 0.9 mg/dL Normal 0.2-1.0 Bilirubin,Direct 0.3 mg/dL High 0.0-0.2 Total Protein 6.5 GM/DL Normal 6.4-8.2 Albumin 3.4 GM/DL Normal 3.2-5.2 Albumin/Globulin Ratio 1.1 Low 1.2-2.2 Laboratory test finding 12/23/2020 [place] [address] [phone] Lipase 73 U/L Normal 73-393 Lactic Acid Sepsis Protocol 0.8 mmol/L Normal 0.4-2.0 41 CBC With Differential 12/19/2020 [place] [address] [phone] White Blood Count 3.8 10 Low 4.0-10.0 [...] 36.0-66.0 Lymph % 11.7 % Low 24.0-44.0 [place] % 11.9 % High 2.0-8.0 Eos % 1.1 % Normal 0.0-3.0 Baso % 0.3 % Normal 0.0-1.0 Immature Granulocyte % 0.5 % Normal 0-3.0 Nucleated Red Blood Cell % 0.0 % Normal 0-0 Neutrophils # 2.8 10 Normal 1.5-8.5 Lymph # 0.4 10 Low 1.5-5.0 [place] # 0.5 10 Normal 0.0-0.8 Eos # [...] developed and its performance characteristics determined by [facility]. It has not been cleared or approved [...] cofactor activity; FVIII - factor VIII activity. PHOTOGRAPH RETOUCHER: For questions regarding panel interpretation, please contact Mikal Wasserman M.D. at [facility] at . DISCLAIMER These assessments and [...] (1) The National Heart, Lung and Blood [place]. The Diagnosis, Evaluation and Management of von Willebrand Disease. [place]: National Institutes of Health Publication 08-5832. 2007. [...] RECURRENT MYOCARDIAL INFARCTION 2.5-3.5 13 Performed at: [facility] [facility] [id number] Criminal Justice Professor: Matt Mcdonnell MD, Phone: [phone] Performed at: [facility] [address] [place] [address] [address], [place], [place] [id number] Criminal Justice Professor: Gary Youngblood MD, Phone: [phone] Performed at: [address] [id number] Criminal Justice Professor: Teresa Nguyen MD, Phone: [phone] ASSAY INFORMATION: Real Time RT-PCR or TMA. Both RT-PCR and TMA are nucleic acid amplification tests (NAAT) which are molecular testing modalities and recommended by the CDC for passenger travel. Testing and International Air Travel, cdc.gov/coronavirus/2019-ncov/travelers/knqbydp-lkl-uqscin.html 09/01/2020 NOTE: The COVID-19 assay is under Emergency Use Authorization (EUA) by the U.S. Food and Drug Administration. [facility] and [facility] are designated as high complexity laboratories by the Clinical Laboratory Improvement Amendments of 1988 (CLIA) and are qualified to perform this test. Not Detected 15 TRANSFUSED PRODUCT: PACKED C ELLS COUNT: 3 16 THE CEA ASSAY IS PERFORMED O N THE [employer] BY CHEMILUMINESCENCE AND SHOULD NOT BE [...] Little GFR Left ESRD GFR <15 on LEAD SYSTEMS DEVELOPER 18 Units are mL/min/1.73 m2 Chronic Kidney Disease Staging per NKF: Stage I & II GFR >=60 Normal to Mildly Decreased Stage III GFR 30-59 Moderately Decreased Stage IV GFR 15-29 Severely Decreased Stage V GFR <15 Very Little GFR Left ESRD GFR <15 on LEAD SYSTEMS DEVELOPER 19 Negative results do not prec lude [...] pathogens. DISCLAIMER: Testing was performed using the [facility] SARS-CoV-2 test. This test was developed and its performance characteristics determined by [facility]. This test has not been FDA cleared [...] NKF-ASN Task force. 26 Effective March 27 Alkaline Phosphatase reference interval [...] Little GFR Left ESRD GFR <15 on LEAD SYSTEMS DEVELOPER 30 THE CEA ASSAY IS PERFORMED O [...] Little GFR Left ESRD GFR <15 on LEAD SYSTEMS DEVELOPER 33 TRANSFUSED PRODUCT: PACKED C ELLS COUNT: [...] Little GFR Left ESRD GFR <15 on LEAD SYSTEMS DEVELOPER 36 Units are mL/min/1.73 m2 Chronic Kidney Disease Staging per NKF: Stage I & II GFR >=60 Normal to Mildly Decreased Stage III GFR 30-59 Moderately Decreased Stage IV GFR 15-29 Severely Decreased Stage V GFR <15 Very Little GFR Left ESRD GFR <15 on LEAD SYSTEMS DEVELOPER 37 ASSAY INFORMATION: Real Time RT-PCR NOTE: The COVID-19 assay has been cleared by the U.S. Food and Drug Administration under the Emergency Use Authorization (EUA). [facility] are designated as high complexity laboratories by [...] Little GFR Left ESRD GFR <15 on LEAD SYSTEMS DEVELOPER 40 THERAPUTIC HUMAN INR VALUES INDICATIONS NORMAL RANGES PROPHYLAXIS/TREATMENT OF: VENOUS THROMBOSIS 2.0-3.0 PULMONARY EMBOLISM 2.0-3.0 PREVENTION OF SYSTEMIC EMBOLISM FROM: TISSUE HEART VALVES 2.0-3.0 ACUTE MYOCARDIAL INFARCTION 2.0-3.0 VALVULAR HEART DISEASE 2.0-3.0 ATRIAL FIBRILLATION 2.0-3.0 MECHANICAL VALVES(HIGH RISK) 2.5-3.5 RECURRENT MYOCARDIAL INFARCTION 2.5-3.5 40 Y/N query for Sepsis Lactate Rule: Y Procedures Date Code Description Status 03/28/2021 [address]172 [place] W/I 7 Days Of DC, Comm W/I 2 Dys Completed 03/23/2021 [id number] Office/Outpatient Established Mo d MDM 30-39 Min Completed 03/23/2021 [id number] Diabetic Foot Exam Completed 01/25/2021 [id number] [place] W/I 7 Days Of DC, Comm W/I 2 Dys Completed 12/27/2020 40861 Office/Outpatient Established Mo d MDM 30-39 Min Completed 12/19/2020 11114 Office/Outpatient Established Mo d MDM 30-39 Min [...] Office Visit 12/19/2020 2:15p Main Office PlegudeliaachStevey, STARTING GATE DRIVER E11.6 9 Type 2 diabetes mellitus with other specified complication E78.2 Mixed hyperlipidemia I10 Essential (primary) hyperten yara 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 C18.9 Malignant neoplasm of colon, unspecified I48.91 Unspecified atrial fibrillat ion Assessments Date Code Description Provider 03/28/2021 D64.9 Anemia, unspecified Pleskach, Mo lly, STARTING GATE DRIVER 03/28/2021 K29.61 Other gastritis with bleeding Pl eskach Nadiya, STARTING GATE DRIVER 03/23/2021 E11.69 Type 2 diabetes mellitus with ot her specified complication Pleskach, Nadiya, STARTING GATE DRIVER 03/23/2021 C18.9 Malignant neoplasm of colon, uns pecified Pleskach, Nadiya, STARTING GATE DRIVER 03/23/2021 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 Plealexy Nadiya , STARTING GATE DRIVER 03/23/2021 E78.2 Mixed hyperlipidemia Pleskach, M jarocho, STARTING GATE DRIVER 03/23/2021 I10 Essential (primary) hypertension Pleskach, Nadiya, STARTING GATE DRIVER 03/23/2021 I48.91 Unspecified atrial fibrillation Pleskach, Nadiya, STARTING GATE DRIVER 03/23/2021 D64.9 Anemia, unspecified Pleskach, Mo lly, STARTING GATE DRIVER 01/25/2021 D64.9 Anemia, unspecified Pleskach, Mo lly, STARTING GATE DRIVER 01/25/2021 K29.61 Other gastritis with bleeding Pl eskaSteve wilsony, STARTING GATE DRIVER 12/27/2020 E11.69 Type 2 diabetes mellitus with ot her specified complication Anitha Gamez M.D. 12/27/2020 C18.9 Malignant neoplasm of colon, uns pecified Anitha Gamez M.D. 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 12/27/2020 D64.9 Anemia, unspecified Angela Gamez M.D. 12/19/2020 E11.69 Type 2 diabetes mellitus with ot her specified complication Pleskach, Nadiya, STARTING GATE DRIVER 12/19/2020 E78.2 Mixed hyperlipidemia Pleskach, M jarocho, STARTING GATE DRIVER 12/19/2020 I10 Essential (primary) hypertension Nadiya Bryan, STARTING GATE DRIVER 12/19/2020 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 Nadiya Bryan FNP 12/19/2020 C18.9 Malignant neoplasm of colon, uns pecified Nadiya Bryan, SUZANNE 12/19/2020 I48.91 Unspecified atrial fibrillation Nadiya Bryan [...] to Reason for Referral Status Appt Date [facility] nose bleed. Closed 0 [phone] [facility], [address] [phone]
--- OUTSIDE RECORDS SUMMARY | 2021-06-19 13:37 | CCD | Continuity of Care Document ---
Author Author [facility]on [employer] Organization Unknown Address [address] [place] [address] Phone [phone] Care Team Providers Care Viscose Cellar Charge Hand Name Role Phone [facility] AUTM [phone] Niels Decker M.D. AUTM [phone] [facility] AUTM Jeff Cramer AUTM [phone] Problems Active Problems Provider Date Type 2 [...] 236units C18.9 Nadiya Bryan FNP 06/16/2020 Z93.2 [place] Remover Wipes Misc use 3-4 wipes every 4 days and as needed when changing ostomy 2Box Z93.2 Nadiya Bryan FNP 06/16/2020 C18.9 Efren Adapt Ceraing change every 4-5 days and as needed ref #[id number] 05 20units Nadiya Bryan FNP 05/05/2020 [place] 2 Piece Ostomy Skin Barrier ref # [id number] márquez ge every 4-5 days and as needed 20units C18.9 Nadiya Bryan FNP 04/14/2020 Z93.2 [place] 2 Piece Drainable Ostomy Pouch ref # [id number] c hange every 4-5 days and as [...] CPT Code Status Date Vaccine Lot # [id number] Refused 04/17/2016 Pneumococcal Vaccine 85240 Refused 04/17/2016 Prevnar 13 66168 Refused 04/17/2016 Influenza Vaccination Vital Signs Date Vital Result Comment 03/28/2021 11:51am BP Systolic 113 mmHg BP Diastolic 83 mmHg Heart Rate 127 /min Body Temperature 98.0 F Respiratory Rate 18 /min Height 61.5 inches 5'1.50" Weight 114.38 lb O2 % BldC Oximetry 100 % [place] Body Weight 105 lb BMI (Body Mass Index) 21.3 kg/m2 03/23/2021 3:47pm BP Systolic 110 mmHg BP Diastolic 62 mmHg Heart Rate 64 /min Body Temperature 98.7 F Respiratory Rate 16 /min Height 61.5 inches 5'1.50" Weight 116.38 lb O2 % BldC Oximetry 99 % [place] Body Weight 105 lb BMI (Body Mass Index) 21.6 kg/m2 Results Test Acquired Date Facility Test Result H/L Range Note Type & Screen -Incl Blood Type,Tye,AB SC 06/07/2021 [place] [address] [phone] Blood Type O POSITIVE Normal AB Screen (Indirect Farooq)Vis NEGATIVE Normal CBC With Differential 06/07/2021 [place] [address] [phone] White Blood Count 5.0 10 Normal 4.0-10.0 [...] 36.0-66.0 Lymph % 4.8 % Low 24.0-44.0 [place] % 11.8 % High 2.0-8.0 Eos % 2.0 % Normal 0.0-3.0 Baso % 0.4 % Normal 0.0-1.0 Immature Granulocyte % 0.6 % Normal 0-3.0 Nucleated Red Blood Cell % 0.0 % Normal 0-0 Neutrophils # 4.0 10 Normal 1.5-8.5 Lymph # 0.2 10 Low 1.5-5.0 [place] # 0.6 10 Normal 0.0-0.8 Eos # 0.1 10 Normal 0.0-0.5 Baso # 0.0 10 Normal 0.0-0.2 Laboratory test finding 06/07/2021 [place] [address] [phone] Packed Cells TRANSFUSED PRODU <SEE NOTE> 1 CBC With Differential 05/31/2021 [place] [address] [phone] White Blood Count 4.9 10 Normal 4.0-10.0 [...] 36.0-66.0 Lymph % 6.5 % Low 24.0-44.0 [place] % 11.0 % High 2.0-8.0 Eos % 1.8 % Normal 0.0-3.0 Baso % 0.6 % Normal 0.0-1.0 Immature Granulocyte % 0.8 % Normal 0-3.0 Nucleated Red Blood Cell % 0.0 % Normal 0-0 Neutrophils # 3.9 10 Normal 1.5-8.5 Lymph # 0.3 10 Low 1.5-5.0 [place] # 0.5 10 Normal 0.0-0.8 Eos # 0.1 10 Normal 0.0-0.5 Baso # 0.0 10 Normal 0.0-0.2 Laboratory test finding 05/31/2021 [place] [address] [phone] Packed Cells TRANSFUSED PRODU <SEE NOTE> 2 Type & Screen -Incl Blood Type,Tye,AB SC 05/31/2021 [place] [address] [phone] Blood Type O POSITIVE Normal AB Screen (Indirect Farooq)Vis NEGATIVE Normal CBC With Differential 05/24/2021 [place] [address] [phone] White Blood Count 5.2 10 Normal 4.0-10.0 [...] 36.0-66.0 Lymph % 4.2 % Low 24.0-44.0 [place] % 11.7 % High 2.0-8.0 Eos % 1.9 % Normal 0.0-3.0 Baso % 0.6 % Normal 0.0-1.0 Immature Granulocyte % 0.6 % Normal 0-3.0 Nucleated Red Blood Cell % 0.0 % Normal 0-0 Neutrophils # 4.2 10 Normal 1.5-8.5 Lymph # 0.2 10 Low 1.5-5.0 [place] # 0.6 10 Normal 0.0-0.8 Eos # 0.1 10 Normal 0.0-0.5 Baso # 0.0 10 Normal 0.0-0.2 Laboratory test finding 05/24/2021 [place] [address] [phone] Packed Cells TRANSFUSED PRODU <SEE NOTE> 3 Type & Screen -Incl Blood Type,Tye,AB SC 05/24/2021 [place] [address] [phone] Blood Type O POSITIVE Normal AB Screen (Indirect Farooq)Vis NEGATIVE Normal CBC With Differential 05/17/2021 [place] [address] [phone] White Blood Count 4.6 10 Normal 4.0-10.0 [...] 36.0-66.0 Lymph % 5.7 % Low 24.0-44.0 [place] % 11.3 % High 2.0-8.0 Eos % 1.7 % Normal 0.0-3.0 Baso % 0.4 % Normal 0.0-1.0 Immature Granulocyte % 0.4 % Normal 0-3.0 Nucleated Red Blood Cell % 0.0 % Normal 0-0 Neutrophils # 3.7 10 Normal 1.5-8.5 Lymph # 0.3 10 Low 1.5-5.0 [place] # 0.5 10 Normal 0.0-0.8 Eos # 0.1 10 Normal 0.0-0.5 Baso # 0.0 10 Normal 0.0-0.2 Type & Screen -Incl Blood Type,Tye,AB SC 05/17/2021 [place] [address] [phone] Blood Type O POSITIVE Normal AB Screen (Indirect Farooq)Vis NEGATIVE Normal Laboratory test finding 05/17/2021 [place] [address] [phone] Packed Cells TRANSFUSED PRODU <SEE NOTE> 4 CBC With Differential 05/10/2021 [place] [address] [phone] White Blood Count 5.2 10 Normal 4.0-10.0 [...] 36.0-66.0 Lymph % 4.8 % Low 24.0-44.0 [place] % 8.7 % High 2.0-8.0 Eos % 1.2 % Normal 0.0-3.0 Baso % 0.4 % Normal 0.0-1.0 Immature Granulocyte % 0.6 % Normal 0-3.0 Nucleated Red Blood Cell % 0.0 % Normal 0-0 Neutrophils # 4.4 10 Normal 1.5-8.5 Lymph # 0.3 10 Low 1.5-5.0 [place] # 0.5 10 Normal 0.0-0.8 Eos # 0.1 10 Normal 0.0-0.5 Baso # 0.0 10 Normal 0.0-0.2 CBC With Differential 05/08/2021 [place] [address] [phone] White Blood Count 4.8 10 Normal 4.0-10.0 [...] 36.0-66.0 Lymph % 5.2 % Low 24.0-44.0 [place] % 11.2 % High 2.0-8.0 Eos % 1.4 % Normal 0.0-3.0 Baso % 0.4 % Normal 0.0-1.0 Immature Granulocyte % 0.4 % Normal 0-3.0 Nucleated Red Blood Cell % 0.0 % Normal 0-0 Neutrophils # 3.9 10 Normal 1.5-8.5 Lymph # 0.3 10 Low 1.5-5.0 [place] # 0.5 10 Normal 0.0-0.8 Eos # 0.1 10 Normal 0.0-0.5 Baso # 0.0 10 Normal 0.0-0.2 Type & Screen -Incl Blood Type,Tye,AB SC 05/08/2021 [place] [address] [phone] Blood Type O POSITIVE Normal AB Screen (Indirect Farooq)Vis NEGATIVE Normal Laboratory test finding 05/08/2021 [place] [address] [phone] Packed Cells TRANSFUSED PRODU <SEE NOTE> 5 Occult Blood 05/08/2021 [place] [address] [phone] Occult Blood OCCULT BLOOD 1 <SEE NOTE> Abnormal 6 Laboratory test finding 05/05/2021 [place] [address] [phone] Packed Cells TRANSFUSED PRODU <SEE NOTE> 7 Type & Screen -Incl Blood Type,Tye,AB SC 05/05/2021 [place] [address] [phone] Blood Type O POSITIVE Normal AB Screen (Indirect Farooq)Vis NEGATIVE Normal CBC With Differential 05/05/2021 [place] [address] [phone] White Blood Count 5.1 10 Normal 4.0-10.0 [...] 36.0-66.0 Lymph % 6.3 % Low 24.0-44.0 [place] % 11.5 % High 2.0-8.0 Eos % 0.8 % Normal 0.0-3.0 Baso % 0.4 % Normal 0.0-1.0 Immature Granulocyte % 0.6 % Normal 0-3.0 Nucleated Red Blood Cell % 0.0 % Normal 0-0 Neutrophils # 4.1 10 Normal 1.5-8.5 Lymph # 0.3 10 Low 1.5-5.0 [place] # 0.6 10 Normal 0.0-0.8 Eos # 0.0 10 Normal 0.0-0.5 Baso # 0.0 10 Normal 0.0-0.2 Factor VIII Panel 05/05/2021 [place] [address] [phone] F8 Activity For F8 Panel 214 % High 56-140 8 F8 Antigen For F8 Panel 115 % Normal 50-200 9 F8 Activity vWB For F8 Panel 71 % Normal 50-200 Interpretation: Note Normal . 10 Platelet Function Analysis 05/05/2021 [place] [address] [phone] Collagen Epinephrine TNP seconds Normal 74-162 11 Laboratory test finding 05/05/2021 [place] [address] [phone] Partial Thromboplastin Time 24.9 seconds Low 25 .9-37.0 Prothrombin Time/Inr 05/05/2021 [place] [address] [phone] Prothrombin Time 14.0 seconds Normal 12.7-14.5 Inr 1.04 Normal 12 Retic (Reticulocyte Count) 05/05/2021 [place] [address] [phone] Reticulocyte % 5.9 % High 0.5-1.5 Reticulocyte # 119.8 10 High 17-77 Retic Hemoglobin Equivalent 30.7 pg Normal 24-36 Laboratory test finding 05/05/2021 [place] [address] [phone] LDH Lactate Dehydrogenase 128 U/L Normal 84-246 Haptoglobin 214 mg/dL Normal 41-333 13 CBC With Differential 04/27/2021 [place] [address] [phone] White Blood Count 4.2 10 Normal 4.0-10.0 [...] 36.0-66.0 Lymph % 8.1 % Low 24.0-44.0 [place] % 12.8 % High 2.0-8.0 Eos % 1.0 % Normal 0.0-3.0 Baso % 0.2 % Normal 0.0-1.0 Immature Granulocyte % 0.5 % Normal 0-3.0 Nucleated Red Blood Cell % 0.0 % Normal 0-0 Neutrophils # 3.3 10 Normal 1.5-8.5 Lymph # 0.3 10 Low 1.5-5.0 [place] # 0.5 10 Normal 0.0-0.8 Eos # 0.0 10 Normal 0.0-0.5 Baso # 0.0 10 Normal 0.0-0.2 CBC With Differential 04/20/2021 Patient Service Ce [place], [place] [address]007 [phone] White Blood Count 3.9 10 Low 4.0-10.0 [...] 36.0-66.0 Lymph % 8.8 % Low 24.0-44.0 [place] % 11.9 % High 2.0-8.0 Eos % 1.0 % Normal 0.0-3.0 Baso % 0.5 % Normal 0.0-1.0 Immature Granulocyte % 0.8 % Normal 0-3.0 Nucleated Red Blood Cell % 0.0 % Normal 0-0 Neutrophils # 3.0 10 Normal 1.5-8.5 Lymph # 0.3 10 Low 1.5-5.0 [place] # 0.5 10 Normal 0.0-0.8 Eos # 0.0 10 Normal 0.0-0.5 Baso # 0.0 10 Normal 0.0-0.2 CBC With Differential 04/12/2021 Patient Service [place] 7[address]355 [phone] White Blood Count 4.6 10 Normal 4.0-10.0 [...] 36.0-66.0 Lymph % 6.6 % Low 24.0-44.0 [place] % 9.4 % High 2.0-8.0 Eos % 0.9 % Normal 0.0-3.0 Baso % 0.2 % Normal 0.0-1.0 Immature Granulocyte % 0.4 % Normal 0-3.0 Nucleated Red Blood Cell % 0.0 % Normal 0-0 Neutrophils # 3.8 10 Normal 1.5-8.5 Lymph # 0.3 10 Low 1.5-5.0 [place] # 0.4 10 Normal 0.0-0.8 Eos # 0.0 10 Normal 0.0-0.5 Baso # 0.0 10 Normal 0.0-0.2 Coronavirus 2019 Nasopharygeal 04/10/2021 Patient S ervice Center [place] [address]6746 [phone] Coronavirus 2019 Nasopharygeal ASSAY INFORMATIO <SEE N OTE> 14 Total Iron Binding Capacit 04/07/2021 Patient Servi ce Center [place] [id number] [phone] Iron (Fe) 48 g/dL Low 50-170 Total Iron Binding Capacity 353 g/dL Normal 250-450 Percent Saturation 13.6 % Normal 13.2-45.0 Type & Screen -Incl Blood Type,Tye,AB SC 04/07/2021 [facility] [place] [address]6705 [phone] Blood Type O POSITIVE Normal AB Screen (Indirect Faroo[place])Vis NEGATIVE Normal Laboratory test finding 04/07/2021 [place] [address] [phone] Packed Cells TRANSFUSED PRODU <SEE NOTE> 15 CBC With Differential 04/07/2021 [place] [address] [phone] White Blood Count 3.4 10 Low 4.0-10.0 [...] 36.0-66.0 Lymph % 8.5 % Low 24.0-44.0 [place] % 10.9 % High 2.0-8.0 Eos % 0.9 % Normal 0.0-3.0 Baso % 0.6 % Normal 0.0-1.0 Immature Granulocyte % 0.6 % Normal 0-3.0 Nucleated Red Blood Cell % 0.0 % Normal 0-0 Neutrophils # 2.7 10 Normal 1.5-8.5 Lymph # 0.3 10 Low 1.5-5.0 [place] # 0.4 10 Normal 0.0-0.8 Eos # 0.0 10 Normal 0.0-0.5 Baso # 0.0 10 Normal 0.0-0.2 Laboratory test finding 04/07/2021 [place] [address] [phone] Carcinoembryonic Antigen < 0.5 NG/ML Normal <2.5 16 Ferritin 66 NG/ML Normal 8-252 Comprehensive Metabolic Profil 04/07/2021 [place] [address] [phone] Glucose, Fasting 184 mg/dL High 70-100 Blood [...] 1.2-2.2 Comprehensive Metabolic Profil 03/24/2021 [place] [address] [phone] Glucose, Fasting 96 mg/dL Normal 70-100 Blood [...] RSV Covid Amp 03/24/2021 [place] [address] [phone] Influenza A Amplification NEGATIVE Normal Negati ve 19 Influenza B Amplification NEGATIVE Normal Negative 20 RSV Amplification NEGATIVE Normal Negative 21 Sars Covid-19 Amplification NEGATIVE Normal Negative 22 Laboratory test finding 03/24/2021 [place] [address] [phone] Packed Cells TRANSFUSED PRODU <SEE NOTE> 23 CBC With Differential 03/24/2021 [place] [address] [phone] White Blood Count 4.6 10 Normal 4.0-10.0 [...] 36.0-66.0 Lymph % 6.2 % Low 24.0-44.0 [place] % 11.4 % High 2.0-8.0 Eos % 0.4 % Normal 0.0-3.0 Baso % 0.4 % Normal 0.0-1.0 Immature Granulocyte % 0.4 % Normal 0-3.0 Nucleated Red Blood Cell % 0.7 % High 0-0 Neutrophils # 3.7 10 Normal 1.5-8.5 Lymph # 0.3 10 Low 1.5-5.0 [place] # 0.5 10 Normal 0.0-0.8 Eos # 0.0 10 Normal 0.0-0.5 Baso # 0.0 10 Normal 0.0-0.2 Albumin/Creatinine Ratio, Random Urine 03/17/2021 [facility] [address] [place] [address] [phone] Creatinine, Urine 120.2 mg/dL Not Estab. Albumin, Urine 20.1 ug/mL Not Estab. Alb/Creat Ratio 17 mg/gcreat 0-29 24 Lipid Panel 03/17/2021 [facility] [address] [place] [address] [phone] Cholesterol, Total 123 mg/dL 100-199 Triglycerides 141 mg/dL 0-149 HDL Cholesterol 37 mg/dL Low >39 VLDL Cholesterol Mark 25 mg/dL 5-40 LDL Chol Calc ([facility]) 61 mg/dL 0-99 Comment: [facility] Metabolic Panel (14), Comprehensive 03/17/2021 [facility] [address] [place] [address] [phone] Calcium 9.5 mg/dL 8.7-10.3 Glucose 81 mg/dL [...] IU/L 0-32 Hemoglobin A1c 03/17/2021 [facility] [address] [place] [address] [phone] Hemoglobin A1c 4.8 % 4.8-5.6 27 Type & Screen -Incl Blood Type,Tye,AB SC 03/14/2021 [place] [address] [phone] Blood Type O POSITIVE Normal AB Screen (Indirect [place]ooq)Vis NEGATIVE Normal Laboratory test finding 03/14/2021 [place] [address] [phone] Packed Cells TRANSFUSED PRODU <SEE NOTE> 28 CBC With Differential 03/14/2021 [place] [address] [phone] White Blood Count 4.0 10 Normal 4.0-10.0 [...] 36.0-66.0 Lymph % 6.8 % Low 24.0-44.0 [place] % 9.3 % High 2.0-8.0 Eos % 1.0 % Normal 0.0-3.0 Baso % 0.8 % Normal 0.0-1.0 Immature Granulocyte % 0.3 % Normal 0-3.0 Nucleated Red Blood Cell % 0.0 % Normal 0-0 Neutrophils # 3.3 10 Normal 1.5-8.5 Lymph # 0.3 10 Low 1.5-5.0 [place] # 0.4 10 Normal 0.0-0.8 Eos # 0.0 10 Normal 0.0-0.5 Baso # 0.0 10 Normal 0.0-0.2 CBC With Differential 03/10/2021 [place] [address] [phone] White Blood Count 3.4 10 Low 4.0-10.0 [...] 36.0-66.0 Lymph % 7.6 % Low 24.0-44.0 [place] % 12.9 % High 2.0-8.0 Eos % 1.2 % Normal 0.0-3.0 Baso % 0.6 % Normal 0.0-1.0 Immature Granulocyte % 0.3 % Normal 0-3.0 Nucleated Red Blood Cell % 0.0 % Normal 0-0 Neutrophils # 2.6 10 Normal 1.5-8.5 Lymph # 0.3 10 Low 1.5-5.0 [place] # 0.4 10 Normal 0.0-0.8 Eos # 0.0 10 Normal 0.0-0.5 Baso # 0.0 10 Normal 0.0-0.2 Comprehensive Metabolic Profil 03/10/20[place] [address] [phone] Glucose, Fasting 166 mg/dL High 70-100 Blood [...] Binding Capacit 03/10/2021 [place] [address] [phone] Iron (Fe) 72 g/dL Normal 50-170 Total Iron Binding Capacity 352 g/dL Normal 250-450 Percent Saturation 20.5 % Normal 13.2-45.0 Laboratory test finding 03/10/2021 [place] [address] [phone] Carcinoembryonic Antigen < 0.5 NG/ML Normal <2.5 30 Ferritin 492 NG/ML High 8-252 Laboratory test finding 02/28/2021 [place] [address] [phone] Packed Cells TRANSFUSED PRODU <SEE NOTE> 31 Type & Screen -Incl Blood Type,Tye,AB SC 02/28/2021 [place] [address] [phone] Blood Type O POSITIVE Normal AB Screen (Indirect [place]oo[place])Vis NEGATIVE Normal Laboratory test finding 02/27/2021 [place] [address] [phone] Blood Urea Nitrogen 26 mg/dL High 7-18 CBC With Differential 02/27/2021 [place] [address] [phone] White Blood Count 6.0 10 Normal 4.0-10.0 [...] 36.0-66.0 Lymph % 4.7 % Low 24.0-44.0 [place] % 11.6 % High 2.0-8.0 Eos % 0.5 % Normal 0.0-3.0 Baso % 0.3 % Normal 0.0-1.0 Immature Granulocyte % 0.8 % Normal 0-3.0 Nucleated Red Blood Cell % 0.3 % High 0-0 Neutrophils # 4.9 10 Normal 1.5-8.5 Lymph # 0.3 10 Low 1.5-5.0 [place] # 0.7 10 Normal 0.0-0.8 Eos # 0.0 10 Normal 0.0-0.5 Baso # 0.0 10 Normal 0.0-0.2 Laboratory test finding 02/27/2021 Patient Service [place], [place] [address] [phone] Ferritin 1039 NG/ML High 8-252 Total Iron Binding Capacit 02/27/2021 Patient Servi [place] [address]140 [phone] Iron (Fe) 79 g/dL Normal 50-170 Total Iron Binding Capacity 384 g/dL Normal 250-450 Percent Saturation 20.6 % Normal 13.2-45.0 Creatinine With GFR 02/27/2021 Patient Service [place], [place] [address]236 [phone] Creatinine For GFR 0.76 mg/dL Normal 0.55-1.30 Glomerular Filtration Rate > 60.0 Normal >32 3 2 Laboratory test finding 02/10/2021 [place] [address] [phone] Packed Cells TRANSFUSED PRODU <SEE NOTE> 33 Type & Screen -Incl Blood Type,Tye,AB SC 02/10/2021 [place] [address] [phone] Blood Type O POSITIVE Normal AB Screen (Indirect [place]ooq)Vis NEGATIVE Normal CBC With Differential 02/09/2021 [place] [address] [phone] White Blood Count 3.9 10 Low 4.0-10.0 [...] 36.0-66.0 Lymph % 7.2 % Low 24.0-44.0 [place] % 10.0 % High 2.0-8.0 Eos % 1.0 % Normal 0.0-3.0 Baso % 0.5 % Normal 0.0-1.0 Immature Granulocyte % 0.5 % Normal 0-3.0 Nucleated Red Blood Cell % 0.0 % Normal 0-0 Neutrophils # 3.1 10 Normal 1.5-8.5 Lymph # 0.3 10 Low 1.5-5.0 [place] # 0.4 10 Normal 0.0-0.8 Eos # 0.0 10 Normal 0.0-0.5 Baso # 0.0 10 Normal 0.0-0.2 Laboratory test finding 01/27/2021 [place] [address] [phone] Ferritin 39 NG/ML Normal 8-252 Carcinoembryonic Antigen 0.5 NG/ML Normal <2.5 34 Comprehensive Metabolic Profil 01/27/2021 [place] [address] [phone] Glucose, Fasting 59 mg/dL Low 70-100 Blood [...] CBC With Differential 01/27/2021 Patient Service Ce [place], [place] 5352939 [phone] White Blood Count 4.2 10 Normal 4.0-10.0 [...] 36.0-66.0 Lymph % 13.6 % Low 24.0-44.0 [place] % 14.6 % High 2.0-8.0 Eos % 1.4 % Normal 0.0-3.0 Baso % 0.5 % Normal 0.0-1.0 Immature Granulocyte % 0.5 % Normal 0-3.0 Nucleated Red Blood Cell % 0.0 % Normal 0-0 Neutrophils # 2.9 10 Normal 1.5-8.5 Lymph # 0.6 10 Low 1.5-5.0 [place] # 0.6 10 Normal 0.0-0.8 Eos # 0.1 10 Normal 0.0-0.5 Baso # 0.0 10 Normal 0.0-0.2 Total Iron Binding Capacit 01/27/2021 [place] [address] [phone] Iron (Fe) 59 g/dL Normal 50-170 Total Iron Binding Capacity 397 g/dL Normal 250-450 Percent Saturation 14.9 % Normal 13.2-45.0 Complete Blood Count 01/20/2021 [place] [address] [phone] White Blood Count 3.3 10 Low 4.0-10.0 [...] 0-0 Laboratory test finding 01/20/2021 [place] [address] [phone] Blood Urea Nitrogen 21 mg/dL High 7-18 Creatinine With GFR 01/20/2021 [place] [address] [phone] Creatinine For GFR 0.69 mg/dL Normal 0.55-1.30 Glomerular Filtration Rate > 60.0 Normal >32 3 6 Type & Screen -Incl Blood Type,Tye,AB SC 01/20/2021 [place] [address] [phone] Blood Type O POSITIVE Normal AB Screen (Indirect Farooq)Vis NEGATIVE Normal Coronavirus 2019 Nasopharygeal 01/16/2021 [place] [address] [phone] Coronavirus 2019 Nasopharygeal ASSAY INFORMATIO <SEE N OTE> 37 Type & Screen -Incl Blood Type,Tye,AB SC 01/03/2021 [place] [address] [phone] Blood Type O POSITIVE Normal AB Screen (Indirect Farooq)Vis NEGATIVE Normal Laboratory test finding 01/03/2021 [place] [address] [phone] Packed Cells TRANSFUSED PRODU <SEE NOTE> 38 Comprehensive Metabolic Profil 01/02/20[place] [address] [phone] Glucose, Fasting 155 mg/dL High 70-100 Blood [...] Laboratory test finding 01/02/2021 [place] [address] [phone] Thyroid Stimulating Hormone 1.660 uIU/ML Normal 0. 358-3.740 Free T4 0.87 ng/dL Normal 0.76-1.46 Ferritin 58 NG/ML Normal 8-252 Total Iron Binding Capacit 01/02/2021 [place] [address] [phone] Iron (Fe) 55 g/dL Normal 50-170 Total Iron Binding Capacity 398 g/dL Normal 250-450 Percent Saturation 13.8 % Normal 13.2-45.0 CBC With Differential 01/02/2021 [place] [address] [phone] White Blood Count 4.3 10 Normal 4.0-10.0 [...] 36.0-66.0 Lymph % 10.7 % Low 24.0-44.0 [place] % 13.1 % High 2.0-8.0 Eos % 0.7 % Normal 0.0-3.0 Baso % 0.5 % Normal 0.0-1.0 Immature Granulocyte % 0.5 % Normal 0-3.0 Nucleated Red Blood Cell % 0.0 % Normal 0-0 Neutrophils # 3.2 10 Normal 1.5-8.5 Lymph # 0.5 10 Low 1.5-5.0 [place] # 0.6 10 Normal 0.0-0.8 Eos # 0.0 10 Normal 0.0-0.5 Baso # 0.0 10 Normal 0.0-0.2 Laboratory test finding 12/23/2020 [place] [address] [phone] iSTAT Troponin 0.01 NG/ML Normal 0.00-0.08 Istat Chem8+ Panel 12/23/2020 [place] [address] [phone] iSTAT HCT 33.0 % Low 38.0-51.0 iSTAT Glucose 94 mg/dL Normal 70-105 iSTAT Sodium 138 mEq/L Normal 136-145 iSTAT Potassium 4.2 mEq/L Normal 3.5-5.1 iSTAT CA++ 5.0 mg/dL Normal 4.5-5.3 iSTAT Chloride 102 mEq/L Normal 98-109 iSTAT Co2 27.0 MM/L Normal 23.0-27.0 iSTAT BUN 20 mg/dL Normal 8-26 iSTAT Creatinine 0.7 mg/dL Normal 0.6-1.3 CBC With Differential 12/23/2020 Patient Service [facility] [place] [address] [phone] White Blood Count 4.5 10 Normal 4.0-10.0 [...] 36.0-66.0 Lymph % 9.7 % Low 24.0-44.0 [place] % 11.9 % High 2.0-8.0 Eos % 0.9 % Normal 0.0-3.0 Baso % 0.4 % Normal 0.0-1.0 Immature Granulocyte % 0.4 % Normal 0-3.0 Nucleated Red Blood Cell % 0.0 % Normal 0-0 Neutrophils # 3.5 10 Normal 1.5-8.5 Lymph # 0.4 10 Low 1.5-5.0 [place] # 0.5 10 Normal 0.0-0.8 Eos # 0.0 10 Normal 0.0-0.5 Baso # 0.0 10 Normal 0.0-0.2 PT & Aptt 12/23/2020 Patient Service [facility] [place] [address]6733 [phone] Prothrombin Time 13.3 seconds Normal 12.5-14.3 Inr 0.99 Normal 40 Partial Thromboplastin Time 29.5 seconds Normal 24.2-38.5 Liver Profile 12/23/2020 [place] [address] [phone] Ast/Sgot 13 U/L Normal 7-37 Alt/SGPT 14 U/L Normal 12-78 Alkaline Phosphatase 95 U/L Normal 45-117 Bilirubin,Total 0.9 mg/dL Normal 0.2-1.0 Bilirubin,Direct 0.3 mg/dL High 0.0-0.2 Total Protein 6.5 GM/DL Normal 6.4-8.2 Albumin 3.4 GM/DL Normal 3.2-5.2 Albumin/Globulin Ratio 1.1 Low 1.2-2.2 Laboratory test finding 12/23/2020 [place] [address] [phone] Lipase 73 U/L Normal 73-393 Lactic Acid Sepsis Protocol 0.8 mmol/L Normal 0.4-2.0 41 CBC With Differential 12/19/2020 [place] [address] [phone] White Blood Count 3.8 10 Low 4.0-10.0 [...] 36.0-66.0 Lymph % 11.7 % Low 24.0-44.0 [place] % 11.9 % High 2.0-8.0 Eos % 1.1 % Normal 0.0-3.0 Baso % 0.3 % Normal 0.0-1.0 Immature Granulocyte % 0.5 % Normal 0-3.0 Nucleated Red Blood Cell % 0.0 % Normal 0-0 Neutrophils # 2.8 10 Normal 1.5-8.5 Lymph # 0.4 10 Low 1.5-5.0 [place] # 0.5 10 Normal 0.0-0.8 Eos # [...] developed and its performance characteristics determined by [employer]. It has not been cleared or approved [...] cofactor activity; FVIII - factor VIII activity. CONSTRUCTION SERVICES TECHNICIAN: For questions regarding panel interpretation, please contact Mikal Wasserman M.D. at [employer] at . DISCLAIMER These assessments and interpretations [...] (1) The National Heart, Lung and Blood [place]. The Diagnosis, Evaluation and Management of von Willebrand Disease. [place], [place]: National Institutes of Health Publication 08-5832. [...] MYOCARDIAL INFARCTION 2.5-3.5 13 Performed at: - [facility] [id number] Parts Administrator: Matt Mcdonnell MD, Phone: [phone] Performed at: [facility] [address] [place], [place], [place] [id number] Parts Administrator: Gary Youngblood MD, Phone: [phone] Performed at: [facility] [id number] Parts Administrator: Teresa Nguyen MD, Phone: [phone] ASSAY INFORMATION: Real Time RT-PCR or TMA. Both RT-PCR and TMA are nucleic acid amplification tests (NAAT) which are molecular testing modalities and recommended by the CDC for passenger travel. Testing and [employer], cdc.gov/coronavirus/2019-ncov/[email or web address].html 09/01/2020 NOTE: The COVID-19 assay is under Emergency Use Authorization (EUA) by the U.S. Food and Drug Administration. [facility] are designated as high complexity laboratories by the Clinical Laboratory Improvement Amendments of 1988 (CLIA) and are qualified to perform this test. Not Detected 15 TRANSFUSED PRODUCT: PACKED C ELLS COUNT: 3 16 THE CEA ASSAY IS PERFORMED O N THE [employer] BY CHEMILUMINESCENCE AND SHOULD NOT BE [...] Little GFR Left ESRD GFR <15 on HOT REPAIRMAN 18 Units are mL/min/1.73 m2 Chronic Kidney Disease Staging per NKF: Stage I & II GFR >=60 Normal to Mildly Decreased Stage III GFR 30-59 Moderately Decreased Stage IV GFR 15-29 Severely Decreased Stage V GFR <15 Very Little GFR Left ESRD GFR <15 on HOT REPAIRMAN 19 Negative results do not prec lude [...] pathogens. DISCLAIMER: Testing was performed using the [employer] SARS-CoV-2 test. This test was developed and its performance characteristics determined by [facility]. This test has not been FDA cleared [...] Little GFR Left ESRD GFR <15 on HOT REPAIRMAN 30 THE CEA ASSAY IS PERFORMED O [...] Little GFR Left ESRD GFR <15 on HOT REPAIRMAN 33 TRANSFUSED PRODUCT: PACKED C ELLS COUNT: [...] Little GFR Left ESRD GFR <15 on HOT REPAIRMAN 36 Units are mL/min/1.73 m2 Chronic Kidney Disease Staging per NKF: Stage I & II GFR >=60 Normal to Mildly Decreased Stage III GFR 30-59 Moderately Decreased Stage IV GFR 15-29 Severely Decreased Stage V GFR <15 Very Little GFR Left ESRD GFR <15 on HOT REPAIRMAN 37 ASSAY INFORMATION: Real Time RT-PCR NOTE: The COVID-19 assay has been cleared by the U.S. Food and Drug Administration under the Emergency Use Authorization (EUA). [facility] are designated as high complexity laboratories by [...] Little GFR Left ESRD GFR <15 on HOT REPAIRMAN 40 THERAPUTIC HUMAN INR VALUES INDICATIONS NORMAL RANGES PROPHYLAXIS/TREATMENT OF: VENOUS THROMBOSIS 2.0-3.0 PULMONARY EMBOLISM 2.0-3.0 PREVENTION OF SYSTEMIC EMBOLISM FROM: TISSUE HEART VALVES 2.0-3.0 ACUTE MYOCARDIAL INFARCTION 2.0-3.0 VALVULAR HEART DISEASE 2.0-3.0 ATRIAL FIBRILLATION 2.0-3.0 MECHANICAL VALVES(HIGH RISK) 2.5-3.5 RECURRENT MYOCARDIAL INFARCTION 2.5-3.5 40 Y/N query for Sepsis Lactate Rule: Y Procedures Date Code Description Status 03/28/2021 27306 [place] W/I 7 Days Of DC, Comm W/I 2 Dys Completed 03/23/2021 36641 Office/Outpatient Established Mo d MDM 30-39 Min Completed 03/23/2021 [id number] Diabetic Foot Exam Completed 01/25/2021 77323 [place] W/I 7 Days Of DC, Comm W/I 2 Dys Completed 12/27/2020 17559 Office/Outpatient Established Mo d MDM 30-39 Min Completed 12/19/2020 27890 Office/Outpatient Established Mo d MDM 30-39 Min [...] Visit 01/25/2021 2:15p Main Office Pleskach, Nadiya, FINANCIAL SERVICE REP D64.9 Anemia, unspecified K29.61 Other gastritis with bleedin g Office Visit 12/27/2020 3:45p Main Office Anitha Gamez M.D. 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 D64.9 Anemia, unspecified Office Visit 12/19/2020 2:15p Main Office PleskachStevey, FINANCIAL SERVICE REP E11.6 9 Type 2 diabetes mellitus with other specified complication E78.2 Mixed hyperlipidemia I10 Essential (primary) hyperten yara 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 C18.9 Malignant neoplasm of colon, unspecified I48.91 Unspecified atrial fibrillat ion Assessments Date Code Description Provider 03/28/2021 D64.9 Anemia, unspecified Pleskach, Mo lly, [facility] 03/28/2021 K29.61 Other gastritis with bleeding Pl Nadiya hogan, FINANCIAL SERVICE REP 03/23/2021 E11.69 Type 2 diabetes mellitus with ot her specified complication Pleskach, Nadiya, FINANCIAL SERVICE REP 03/23/2021 C18.9 Malignant neoplasm of colon, uns pecified Pleskach Nadiya, FINANCIAL SERVICE REP 03/23/2021 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 Nadiya Bryan , FINANCIAL SERVICE REP 03/23/2021 E78.2 Mixed hyperlipidemia Chayo Bryan, FINANCIAL SERVICE REP 03/23/2021 I10 Essential (primary) hypertension Pleskach, Nadiya, FINANCIAL SERVICE REP 03/23/2021 I48.91 Unspecified atrial fibrillation Pleskach Nadiya, FINANCIAL SERVICE REP 03/23/2021 D64.9 Anemia, unspecified Pleskach, Mo lly, FINANCIAL SERVICE REP 01/25/2021 D64.9 Anemia, unspecified Pleskach, Mo lly, FINANCIAL SERVICE REP 01/25/2021 K29.[address] Other [address]ritis with bleeding Pl eskachNadiya, FINANCIAL SERVICE REP 12/27/2020 E11.69 Type 2 diabetes mellitus with ot her specified complication Anitha Gamez M.D. 12/27/2020 C18.9 Malignant neoplasm of colon, uns pecified Anitha Gamez M.D. 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 12/27/2020 D64.9 Anemia, unspecified Angela Gamez M.D. 12/19/2020 E11.69 Type 2 diabetes mellitus with ot her specified complication Nadiya Bryan, FINANCIAL SERVICE REP 12/19/2020 E78.2 Mixed hyperlipidemia PleChayo tracey, FINANCIAL SERVICE REP 12/19/2020 I10 Essential (primary) hypertension Nadiya Bryan, FINANCIAL SERVICE REP 12/19/2020 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 Nadiya Bryan , FINANCIAL SERVICE REP 12/19/2020 C18.9 Malignant neoplasm of colon, uns [...] to Reason for Referral Status Appt Date [facility] nose bleed. Closed 0 826 [facility], [address] [phone]
--- OUTSIDE RECORDS SUMMARY | 2021-06-19 13:37 | CCD | Continuity of Care Document ---
Author Author Meron BRYAN POULTRY PROCESSOR Organization Unknown Address [address] [place] [address] Phone [phone] Care Team Providers Care Cosmetology Instructor Name Role Phone [facility] AUTM [phone] Niels Decker M.D. AUTM [phone] [facility] AUTM [phone] Jeff Cramer AUTM [phone] Problems Active Problems Provider Date Type 2 [...] times a day x 4 weeks. (Dr. Craemr) Unknow n 01/21/2021 Miralax 17GM/Scoop Powder one [...] 236units C18.9 Nadiya Bryan FNP 06/16/2020 Z93.2 [place] Remover Wipes Misc use 3-4 wipes every 4 days and as needed when changing ostomy 2Box Z93.2 Nadiya Bryan FNP 06/16/2020 C18.9 Efren Adapt Ceraing change every 4-5 days and as needed ref #[id number] 20units Nadiya Bryan FNP 05/05/2020 Zuni 2 Piece Ostomy Skin Barrier ref # [id number] márquez ge every 4-5 days and as needed 20units C18.9 Nadiya Bryan FNP 04/14/2020 Z93.2 Zuni 2 Piece Drainable Ostomy Pouch ref # [id number] c hange every 4-5 days and as [...] CPT Code Status Date Vaccine Lot # [id number] Refused 04/17/2016 Pneumococcal Vaccine 91747 Refused 04/17/2016 Prevnar 13 01966 Refused 04/17/2016 Influenza Vaccination Vital Signs Date Vital Result Comment 03/28/2021 11:51am BP Systolic 113 mmHg BP Diastolic 83 mmHg Heart Rate 127 /min Body Temperature 98.0 F Respiratory Rate 18 /min Height 61.5 inches 5'1.50" Weight 114.38 lb O2 % BldC Oximetry 100 % [place] Body Weight 105 lb BMI (Body Mass Index) 21.3 kg/m2 03/23/2021 3:47pm BP Systolic 110 mmHg BP Diastolic 62 mmHg Heart Rate 64 /min Body Temperature 98.7 F Respiratory Rate 16 /min Height 61.5 inches 5'1.50" Weight 116.38 lb O2 % BldC Oximetry 99 % [place] Body Weight 105 lb BMI (Body Mass Index) 21.6 kg/m2 Results Test Acquired Date Facility Test Result H/L Range Note Type & Screen -Incl Blood Type,Tye,AB SC 06/07/2021 [place] [address] [phone] Blood Type O POSITIVE Normal AB Screen (Indirect Farooq)Vis NEGATIVE Normal CBC With Differential 06/07/2021 [place] [address] [phone] White Blood Count 5.0 10 Normal 4.0-10.0 [...] 36.0-66.0 Lymph % 4.8 % Low 24.0-44.0 Addison % 11.8 % High 2.0-8.0 Eos % 2.0 % Normal 0.0-3.0 Baso % 0.4 % Normal 0.0-1.0 Immature Granulocyte % 0.6 % Normal 0-3.0 Nucleated Red Blood Cell % 0.0 % Normal 0-0 Neutrophils # 4.0 10 Normal 1.5-8.5 Lymph # 0.2 10 Low 1.5-5.0 Addison # 0.6 10 Normal 0.0-0.8 Eos # 0.1 10 Normal 0.0-0.5 Baso # 0.0 10 Normal 0.0-0.2 Laboratory test finding 06/07/2021 [place] [address] [phone] Packed Cells TRANSFUSED PRODU <SEE NOTE> 1 CBC With Differential 05/31/2021 [place] [address] [phone] White Blood Count 4.9 10 Normal 4.0-10.0 [...] 36.0-66.0 Lymph % 6.5 % Low 24.0-44.0 Addison % 11.0 % High 2.0-8.0 Eos % 1.8 % Normal 0.0-3.0 Baso % 0.6 % Normal 0.0-1.0 Immature Granulocyte % 0.8 % Normal 0-3.0 Nucleated Red Blood Cell % 0.0 % Normal 0-0 Neutrophils # 3.9 10 Normal 1.5-8.5 Lymph # 0.3 10 Low 1.5-5.0 Addison # 0.5 10 Normal 0.0-0.8 Eos # 0.1 10 Normal 0.0-0.5 Baso # 0.0 10 Normal 0.0-0.2 Laboratory test finding 05/31/2021 [place] [address] [phone] Packed Cells TRANSFUSED PRODU <SEE NOTE> 2 Type & Screen -Incl Blood Type,Tye,AB SC 05/31/2021 [place] [address] [phone] Blood Type O POSITIVE Normal AB Screen (Indirect Farooq)Vis NEGATIVE Normal CBC With Differential 05/24/2021 [place] [address] [phone] White Blood Count 5.2 10 Normal 4.0-10.0 [...] 36.0-66.0 Lymph % 4.2 % Low 24.0-44.0 Addison % 11.7 % High 2.0-8.0 Eos % 1.9 % Normal 0.0-3.0 Baso % 0.6 % Normal 0.0-1.0 Immature Granulocyte % 0.6 % Normal 0-3.0 Nucleated Red Blood Cell % 0.0 % Normal 0-0 Neutrophils # 4.2 10 Normal 1.5-8.5 Lymph # 0.2 10 Low 1.5-5.0 Addison # 0.6 10 Normal 0.0-0.8 Eos # 0.1 10 Normal 0.0-0.5 Baso # 0.0 10 Normal 0.0-0.2 Laboratory test finding 05/24/2021 [place] [address] [phone] Packed Cells TRANSFUSED PRODU <SEE NOTE> 3 Type & Screen -Incl Blood Type,Tye,AB SC 05/24/2021 [place] [address] [phone] Blood Type O POSITIVE Normal AB Screen (Indirect Farooq)Vis NEGATIVE Normal CBC With Differential 05/17/2021 [place] [address] [phone] White Blood Count 4.6 10 Normal 4.0-10.0 [...] 36.0-66.0 Lymph % 5.7 % Low 24.0-44.0 Addison % 11.3 % High 2.0-8.0 Eos % 1.7 % Normal 0.0-3.0 Baso % 0.4 % Normal 0.0-1.0 Immature Granulocyte % 0.4 % Normal 0-3.0 Nucleated Red Blood Cell % 0.0 % Normal 0-0 Neutrophils # 3.7 10 Normal 1.5-8.5 Lymph # 0.3 10 Low 1.5-5.0 Addison # 0.5 10 Normal 0.0-0.8 Eos # 0.1 10 Normal 0.0-0.5 Baso # 0.0 10 Normal 0.0-0.2 Type & Screen -Incl Blood Type,Tye,AB SC 05/17/2021 [place] [address] [phone] Blood Type O POSITIVE Normal AB Screen (Indirect Farooq)Vis NEGATIVE Normal Laboratory test finding 05/17/2021 [place] [address] [phone] Packed Cells TRANSFUSED PRODU <SEE NOTE> 4 CBC With Differential 05/10/2021 [place] [address] [phone] White Blood Count 5.2 10 Normal 4.0-10.0 [...] 36.0-66.0 Lymph % 4.8 % Low 24.0-44.0 Addison % 8.7 % High 2.0-8.0 Eos % 1.2 % Normal 0.0-3.0 Baso % 0.4 % Normal 0.0-1.0 Immature Granulocyte % 0.6 % Normal 0-3.0 Nucleated Red Blood Cell % 0.0 % Normal 0-0 Neutrophils # 4.4 10 Normal 1.5-8.5 Lymph # 0.3 10 Low 1.5-5.0 Addison # 0.5 10 Normal 0.0-0.8 Eos # 0.1 10 Normal 0.0-0.5 Baso # 0.0 10 Normal 0.0-0.2 CBC With Differential 05/08/2021 [place] [address] [phone] White Blood Count 4.8 10 Normal 4.0-10.0 [...] 36.0-66.0 Lymph % 5.2 % Low 24.0-44.0 Addison % 11.2 % High 2.0-8.0 Eos % 1.4 % Normal 0.0-3.0 Baso % 0.4 % Normal 0.0-1.0 Immature Granulocyte % 0.4 % Normal 0-3.0 Nucleated Red Blood Cell % 0.0 % Normal 0-0 Neutrophils # 3.9 10 Normal 1.5-8.5 Lymph # 0.3 10 Low 1.5-5.0 Addison # 0.5 10 Normal 0.0-0.8 Eos # 0.1 10 Normal 0.0-0.5 Baso # 0.0 10 Normal 0.0-0.2 Type & Screen -Incl Blood Type,Tye,AB SC 05/08/2021 [place] [address] [phone] Blood Type O POSITIVE Normal AB Screen (Indirect Farooq)Vis NEGATIVE Normal Laboratory test finding 05/08/2021 [place] [address] [phone] Packed Cells TRANSFUSED PRODU <SEE NOTE> 5 Occult Blood 05/08/2021 [place] [address] [phone] Occult Blood OCCULT BLOOD 1 <SEE NOTE> Abnormal 6 Laboratory test finding 05/05/2021 [place] [address] [phone] Packed Cells TRANSFUSED PRODU <SEE NOTE> 7 Type & Screen -Incl Blood Type,Tye,AB SC 05/05/2021 [place] [address] [phone] Blood Type O POSITIVE Normal AB Screen (Indirect Farooq)Vis NEGATIVE Normal CBC With Differential 05/05/2021 [place] [address] [phone] White Blood Count 5.1 10 Normal 4.0-10.0 [...] 36.0-66.0 Lymph % 6.3 % Low 24.0-44.0 Addison % 11.5 % High 2.0-8.0 Eos % 0.8 % Normal 0.0-3.0 Baso % 0.4 % Normal 0.0-1.0 Immature Granulocyte % 0.6 % Normal 0-3.0 Nucleated Red Blood Cell % 0.0 % Normal 0-0 Neutrophils # 4.1 10 Normal 1.5-8.5 Lymph # 0.3 10 Low 1.5-5.0 Addison # 0.6 10 Normal 0.0-0.8 Eos # 0.0 10 Normal 0.0-0.5 Baso # 0.0 10 Normal 0.0-0.2 Factor VIII Panel 05/05/2021 [place] [address] [phone] F8 Activity For F8 Panel 214 % High 56-140 8 F8 Antigen For F8 Panel 115 % Normal 50-200 9 F8 Activity vWB For F8 Panel 71 % Normal 50-200 Interpretation: Note Normal . 10 Platelet Function Analysis 05/05/2021 [place] [address] [phone] Collagen Epinephrine TNP seconds Normal 74-162 11 Laboratory test finding 05/05/2021 [place] [address] [phone] Partial Thromboplastin Time 24.9 seconds Low 25 .9-37.0 Prothrombin Time/Inr 05/05/2021 [place] [address] [phone] Prothrombin Time 14.0 seconds Normal 12.7-14.5 Inr 1.04 Normal 12 Retic (Reticulocyte Count) 05/05/2021 [place] [address] [phone] Reticulocyte % 5.9 % High 0.5-1.5 Reticulocyte # 119.8 10 High 17-77 Retic Hemoglobin Equivalent 30.7 pg Normal 24-36 Laboratory test finding 05/05/2021 [place] [address] [phone] LDH Lactate Dehydrogenase 128 U/L Normal 84-246 Haptoglobin 214 mg/dL Normal 41-333 13 CBC With Differential 04/27/2021 [place] [address] [phone] White Blood Count 4.2 10 Normal 4.0-10.0 [...] 36.0-66.0 Lymph % 8.1 % Low 24.0-44.0 Addison % 12.8 % High 2.0-8.0 Eos % 1.0 % Normal 0.0-3.0 Baso % 0.2 % Normal 0.0-1.0 Immature Granulocyte % 0.5 % Normal 0-3.0 Nucleated Red Blood Cell % 0.0 % Normal 0-0 Neutrophils # 3.3 10 Normal 1.5-8.5 Lymph # 0.3 10 Low 1.5-5.0 Addison # 0.5 10 Normal 0.0-0.8 Eos # 0.0 10 Normal 0.0-0.5 Baso # 0.0 10 Normal 0.0-0.2 CBC With Differential 04/20/2021 Patient Service Ce [place], [place] [address]66 [phone] White Blood Count 3.9 10 Low 4.0-10.0 [...] 36.0-66.0 Lymph % 8.8 % Low 24.0-44.0 Addison % 11.9 % High 2.0-8.0 Eos % 1.0 % Normal 0.0-3.0 Baso % 0.5 % Normal 0.0-1.0 Immature Granulocyte % 0.8 % Normal 0-3.0 Nucleated Red Blood Cell % 0.0 % Normal 0-0 Neutrophils # 3.0 10 Normal 1.5-8.5 Lymph # 0.3 10 Low 1.5-5.0 Addison # 0.5 10 Normal 0.0-0.8 Eos # 0.0 10 Normal 0.0-0.5 Baso # 0.0 10 Normal 0.0-0.2 CBC With Differential 04/12/2021 Patient Service [place] 6[address]8699 [phone] White Blood Count 4.6 10 Normal 4.0-10.0 [...] 36.0-66.0 Lymph % 6.6 % Low 24.0-44.0 Addison % 9.4 % High 2.0-8.0 Eos % 0.9 % Normal 0.0-3.0 Baso % 0.2 % Normal 0.0-1.0 Immature Granulocyte % 0.4 % Normal 0-3.0 Nucleated Red Blood Cell % 0.0 % Normal 0-0 Neutrophils # 3.8 10 Normal 1.5-8.5 Lymph # 0.3 10 Low 1.5-5.0 Addison # 0.4 10 Normal 0.0-0.8 Eos # 0.0 10 Normal 0.0-0.5 Baso # 0.0 10 Normal 0.0-0.2 Coronavirus 2019 Nasopharygeal 04/10/2021 Patient S ervice Center [place] 6[address]454 [phone] Coronavirus 2019 Nasopharygeal ASSAY INFORMATIO <SEE N OTE> 14 Total Iron Binding Capacit 04/07/2021 Patient Servi ce Center [place] 6[address]7400 [phone] Iron (Fe) 48 g/dL Low 50-170 Total Iron Binding Capacity 353 g/dL Normal 250-450 Percent Saturation 13.6 % Normal 13.2-45.0 Type & Screen -Incl Blood Type,Tye,AB SC 04/07/2021 [facility] [place] 6[address]404 [phone] Blood Type O POSITIVE Normal AB Screen (Indirect Farooq)Vis NEGATIVE Normal Laboratory test finding 04/07/2021 [place] [address] [phone] Packed Cells TRANSFUSED PRODU <SEE NOTE> 15 CBC With Differential 04/07/2021 [place] [address] [phone] White Blood Count 3.4 10 Low 4.0-10.0 [...] 36.0-66.0 Lymph % 8.5 % Low 24.0-44.0 Addison % 10.9 % High 2.0-8.0 Eos % 0.9 % Normal 0.0-3.0 Baso % 0.6 % Normal 0.0-1.0 Immature Granulocyte % 0.6 % Normal 0-3.0 Nucleated Red Blood Cell % 0.0 % Normal 0-0 Neutrophils # 2.7 10 Normal 1.5-8.5 Lymph # 0.3 10 Low 1.5-5.0 Addison # 0.4 10 Normal 0.0-0.8 Eos # 0.0 10 Normal 0.0-0.5 Baso # 0.0 10 Normal 0.0-0.2 Laboratory test finding 04/07/2021 [place] [address] [phone] Carcinoembryonic Antigen < 0.5 NG/ML Normal <2.5 16 Ferritin 66 NG/ML Normal 8-252 Comprehensive Metabolic Profil 04/07/2021 [place] [address] [phone] Glucose, Fasting 184 mg/dL High 70-100 Blood [...] 1.2-2.2 Comprehensive Metabolic Profil 03/24/2021 [place] [address] [phone] Glucose, Fasting 96 mg/dL Normal 70-100 Blood [...] RSV Covid Amp 03/24/2021 [place] [address] [phone] Influenza A Amplification NEGATIVE Normal Negati ve 19 Influenza B Amplification NEGATIVE Normal Negative 20 RSV Amplification NEGATIVE Normal Negative 21 Sars Covid-19 Amplification NEGATIVE Normal Negative 22 Laboratory test finding 03/24/2021 [place] [address] [phone] Packed Cells TRANSFUSED PRODU <SEE NOTE> 23 CBC With Differential 03/24/2021 [place] [address] [phone] White Blood Count 4.6 10 Normal 4.0-10.0 [...] 36.0-66.0 Lymph % 6.2 % Low 24.0-44.0 Addison % 11.4 % High 2.0-8.0 Eos % 0.4 % Normal 0.0-3.0 Baso % 0.4 % Normal 0.0-1.0 Immature Granulocyte % 0.4 % Normal 0-3.0 Nucleated Red Blood Cell % 0.7 % High 0-0 Neutrophils # 3.7 10 Normal 1.5-8.5 Lymph # 0.3 10 Low 1.5-5.0 Addison # 0.5 10 Normal 0.0-0.8 Eos # 0.0 10 Normal 0.0-0.5 Baso # 0.0 10 Normal 0.0-0.2 Albumin/Creatinine Ratio, Random Urine 03/17/2021 [facility] [address] [place] [address] [phone] Creatinine, Urine 120.2 mg/dL Not Estab. Albumin, Urine 20.1 ug/mL Not Estab. Alb/Creat Ratio 17 mg/gcreat 0-29 24 Lipid Panel 03/17/2021 [facility] [address] [place] [address] [phone] Cholesterol, Total 123 mg/dL 100-199 Triglycerides 141 mg/dL 0-149 HDL Cholesterol 37 mg/dL Low >39 VLDL Cholesterol Mark 25 mg/dL 5-40 LDL Chol Calc ([facility]) 61 mg/dL 0-99 Comment: MOP Metabolic Panel (14), Comprehensive 03/17/2021 [facility] [address] [place] [address] [phone] Calcium 9.5 mg/dL 8.7-10.3 Glucose 81 mg/dL [...] IU/L 0-32 Hemoglobin A1c 03/17/2021 [facility] [address] [place] [address] [phone] Hemoglobin A1c 4.8 % 4.8-5.6 27 Type & Screen -Incl Blood Type,Tye,AB SC 03/14/2021 [place] [address] [phone] Blood Type O POSITIVE Normal AB Screen (Indirect Farooq)Vis NEGATIVE Normal Laboratory test finding 03/14/2021 [place] [address] [phone] Packed Cells TRANSFUSED PRODU <SEE NOTE> 28 CBC With Differential 03/14/2021 [place] [address] [phone] White Blood Count 4.0 10 Normal 4.0-10.0 [...] 36.0-66.0 Lymph % 6.8 % Low 24.0-44.0 Addison % 9.3 % High 2.0-8.0 Eos % 1.0 % Normal 0.0-3.0 Baso % 0.8 % Normal 0.0-1.0 Immature Granulocyte % 0.3 % Normal 0-3.0 Nucleated Red Blood Cell % 0.0 % Normal 0-0 Neutrophils # 3.3 10 Normal 1.5-8.5 Lymph # 0.3 10 Low 1.5-5.0 Addison # 0.4 10 Normal 0.0-0.8 Eos # 0.0 10 Normal 0.0-0.5 Baso # 0.0 10 Normal 0.0-0.2 CBC With Differential 03/10/2021 [place] [address] [phone] White Blood Count 3.4 10 Low 4.0-10.0 [...] 36.0-66.0 Lymph % 7.6 % Low 24.0-44.0 Addison % 12.9 % High 2.0-8.0 Eos % 1.2 % Normal 0.0-3.0 Baso % 0.6 % Normal 0.0-1.0 Immature Granulocyte % 0.3 % Normal 0-3.0 Nucleated Red Blood Cell % 0.0 % Normal 0-0 Neutrophils # 2.6 10 Normal 1.5-8.5 Lymph # 0.3 10 Low 1.5-5.0 Addison # 0.4 10 Normal 0.0-0.8 Eos # 0.0 10 Normal 0.0-0.5 Baso # 0.0 10 Normal 0.0-0.2 Comprehensive Metabolic Profil 03/10/2021 [place] [address] [phone] Glucose, Fasting 166 mg/dL High 70-100 Blood [...] Binding Capacit 03/10/2021 [place] [address] [phone] Iron (Fe) 72 g/dL Normal 50-170 Total Iron Binding Capacity 352 g/dL Normal 250-450 Percent Saturation 20.5 % Normal 13.2-45.0 Laboratory test finding 03/10/2021 [place] [address] [phone] Carcinoembryonic Antigen < 0.5 NG/ML Normal <2.5 30 Ferritin 492 NG/ML High 8-252 Laboratory test finding 02/28/2021 [place] [address] [phone] Packed Cells TRANSFUSED PRODU <SEE NOTE> 31 Type & Screen -Incl Blood Type,Tye,AB SC 02/28/2021 [place] [address] [phone] Blood Type O POSITIVE Normal AB Screen (Indirect Farooq)Vis NEGATIVE Normal Laboratory test finding 02/27/2021 [place] [address] [phone] Blood Urea Nitrogen 26 mg/dL High 7-18 CBC With Differential 02/27/2021 [place] [address] [phone] White Blood Count 6.0 10 Normal 4.0-10.0 [...] 36.0-66.0 Lymph % 4.7 % Low 24.0-44.0 Addison % 11.6 % High 2.0-8.0 Eos % 0.5 % Normal 0.0-3.0 Baso % 0.3 % Normal 0.0-1.0 Immature Granulocyte % 0.8 % Normal 0-3.0 Nucleated Red Blood Cell % 0.3 % High 0-0 Neutrophils # 4.9 10 Normal 1.5-8.5 Lymph # 0.3 10 Low 1.5-5.0 Addison # 0.7 10 Normal 0.0-0.8 Eos # 0.0 10 Normal 0.0-0.5 Baso # 0.0 10 Normal 0.0-0.2 Laboratory test finding 02/27/2021 Patient Service [place], [place] [address]74 [phone] Ferritin 1039 NG/ML High 8-252 Total Iron Binding Capacit 02/27/2021 Patient Servi [place], [place] [address]377 [phone] Iron (Fe) 79 g/dL Normal 50-170 Total Iron Binding Capacity 384 g/dL Normal 250-450 Percent Saturation 20.6 % Normal 13.2-45.0 Creatinine With GFR 02/27/2021 Patient Service [place], [place] [address] [phone] Creatinine For GFR 0.76 mg/dL Normal 0.55-1.30 Glomerular Filtration Rate > 60.0 Normal >32 3 2 Laboratory test finding 02/10/2021 [place] [address] [phone] Packed Cells TRANSFUSED PRODU <SEE NOTE> 33 Type & Screen -Incl Blood Type,Tye,AB SC 02/10/2021 [place] [address] [phone] Blood Type O POSITIVE Normal AB Screen (Indirect Farooq)Vis NEGATIVE Normal CBC With Differential 02/09/2021 [place] [address] [phone] White Blood Count 3.9 10 Low 4.0-10.0 [...] 36.0-66.0 Lymph % 7.2 % Low 24.0-44.0 Addison % 10.0 % High 2.0-8.0 Eos % 1.0 % Normal 0.0-3.0 Baso % 0.5 % Normal 0.0-1.0 Immature Granulocyte % 0.5 % Normal 0-3.0 Nucleated Red Blood Cell % 0.0 % Normal 0-0 Neutrophils # 3.1 10 Normal 1.5-8.5 Lymph # 0.3 10 Low 1.5-5.0 Addison # 0.4 10 Normal 0.0-0.8 Eos # 0.0 10 Normal 0.0-0.5 Baso # 0.0 10 Normal 0.0-0.2 Laboratory test finding 01/27/2021 [place] [address] [phone] Ferritin 39 NG/ML Normal 8-252 Carcinoembryonic Antigen 0.5 NG/ML Normal <2.5 34 Comprehensive Metabolic Profil 01/27/2021 [place] [address] [phone] Glucose, Fasting 59 mg/dL Low 70-100 Blood [...] CBC With Differential 01/27/2021 Patient Service Ce [place], [place] [address] [phone] White Blood Count 4.2 10 Normal 4.0-10.0 [...] 36.0-66.0 Lymph % 13.6 % Low 24.0-44.0 Addison % 14.6 % High 2.0-8.0 Eos % 1.4 % Normal 0.0-3.0 Baso % 0.5 % Normal 0.0-1.0 Immature Granulocyte % 0.5 % Normal 0-3.0 Nucleated Red Blood Cell % 0.0 % Normal 0-0 Neutrophils # 2.9 10 Normal 1.5-8.5 Lymph # 0.6 10 Low 1.5-5.0 Addison # 0.6 10 Normal 0.0-0.8 Eos # 0.1 10 Normal 0.0-0.5 Baso # 0.0 10 Normal 0.0-0.2 Total Iron Binding Capacit 01/27/2021 [place] [address] [phone] Iron (Fe) 59 g/dL Normal 50-170 Total Iron Binding Capacity 397 g/dL Normal 250-450 Percent Saturation 14.9 % Normal 13.2-45.0 Complete Blood Count 01/20/2021 [place] [address] [phone] White Blood Count 3.3 10 Low 4.0-10.0 [...] 0-0 Laboratory test finding 01/20/2021 [place] [address] [phone] Blood Urea Nitrogen 21 mg/dL High 7-18 Creatinine With GFR 01/20/2021 [place] [address] [phone] Creatinine For GFR 0.69 mg/dL Normal 0.55-1.30 Glomerular Filtration Rate > 60.0 Normal >32 3 6 Type & Screen -Incl Blood Type,Tye,AB SC 01/20/2021 [place] [address] [phone] Blood Type O POSITIVE Normal AB Screen (Indirect Farooq)Vis NEGATIVE Normal Coronavirus 2019 Nasopharygeal 01/16/2021 [place] [address] [phone] Coronavirus 2019 Nasopharygeal ASSAY INFORMATIO <SEE N OTE> 37 Type & Screen -Incl Blood Type,Tye,AB SC 01/03/2021 [place] [address] [phone] Blood Type O POSITIVE Normal AB Screen (Indirect Farooq)Vis NEGATIVE Normal Laboratory test finding 01/03/2021 [place] [address] [phone] Packed Cells TRANSFUSED PRODU <SEE NOTE> 38 Comprehensive Metabolic Profil 01/02/2021 [place] [address] [phone] Glucose, Fasting 155 mg/dL High 70-100 Blood [...] Laboratory test finding 01/02/2021 [place] [address] [phone] Thyroid Stimulating Hormone 1.660 uIU/ML Normal 0. 358-3.740 Free T4 0.87 ng/dL Normal 0.76-1.46 Ferritin 58 NG/ML Normal 8-252 Total Iron Binding Capacit 01/02/2021 [place] [address] [phone] Iron (Fe) 55 g/dL Normal 50-170 Total Iron Binding Capacity 398 g/dL Normal 250-450 Percent Saturation 13.8 % Normal 13.2-45.0 CBC With Differential 01/02/2021 [place] [address] [phone] White Blood Count 4.3 10 Normal 4.0-10.0 [...] 36.0-66.0 Lymph % 10.7 % Low 24.0-44.0 Addison % 13.1 % High 2.0-8.0 Eos % 0.7 % Normal 0.0-3.0 Baso % 0.5 % Normal 0.0-1.0 Immature Granulocyte % 0.5 % Normal 0-3.0 Nucleated Red Blood Cell % 0.0 % Normal 0-0 Neutrophils # 3.2 10 Normal 1.5-8.5 Lymph # 0.5 10 Low 1.5-5.0 Addison # 0.6 10 Normal 0.0-0.8 Eos # 0.0 10 Normal 0.0-0.5 Baso # 0.0 10 Normal 0.0-0.2 Laboratory test finding 12/23/2020 [place] [address] [phone] iSTAT Troponin 0.01 NG/ML Normal 0.00-0.08 Istat Chem8+ Panel 12/23/2020 [place] [address] [phone] iSTAT HCT 33.0 % Low 38.0-51.0 iSTAT Glucose 94 mg/dL Normal 70-105 iSTAT Sodium 138 mEq/L Normal 136-145 iSTAT Potassium 4.2 mEq/L Normal 3.5-5.1 iSTAT CA++ 5.0 mg/dL Normal 4.5-5.3 iSTAT Chloride 102 mEq/L Normal 98-109 iSTAT Co2 27.0 MM/L Normal 23.0-27.0 iSTAT BUN 20 mg/dL Normal 8-26 iSTAT Creatinine 0.7 mg/dL Normal 0.6-1.3 CBC With Differential 12/23/2020 Patient Service [facility] [place] [address] [phone] White Blood Count 4.5 10 Normal 4.0-10.0 [...] 36.0-66.0 Lymph % 9.7 % Low 24.0-44.0 Addison % 11.9 % High 2.0-8.0 Eos % 0.9 % Normal 0.0-3.0 Baso % 0.4 % Normal 0.0-1.0 Immature Granulocyte % 0.4 % Normal 0-3.0 Nucleated Red Blood Cell % 0.0 % Normal 0-0 Neutrophils # 3.5 10 Normal 1.5-8.5 Lymph # 0.4 10 Low 1.5-5.0 Addison # 0.5 10 Normal 0.0-0.8 Eos # 0.0 10 Normal 0.0-0.5 Baso # 0.0 10 Normal 0.0-0.2 PT & Aptt 12/23/2020 Patient Service [facility] [place] 6[address]7429 [phone] Prothrombin Time 13.3 seconds Normal 12.5-14.3 Inr 0.99 Normal 40 Partial Thromboplastin Time 29.5 seconds Normal 24.2-38.5 Liver Profile 12/23/2020 [place] [address] [phone] Ast/Sgot 13 U/L Normal 7-37 Alt/SGPT 14 U/L Normal 12-78 Alkaline Phosphatase 95 U/L Normal 45-117 Bilirubin,Total 0.9 mg/dL Normal 0.2-1.0 Bilirubin,Direct 0.3 mg/dL High 0.0-0.2 Total Protein 6.5 GM/DL Normal 6.4-8.2 Albumin 3.4 GM/DL Normal 3.2-5.2 Albumin/Globulin Ratio 1.1 Low 1.2-2.2 Laboratory test finding 12/23/2020 [place] [address] [phone] Lipase 73 U/L Normal 73-393 Lactic Acid Sepsis Protocol 0.8 mmol/L Normal 0.4-2.0 41 CBC With Differential 12/19/2020 [place] [address] [phone] White Blood Count 3.8 10 Low 4.0-10.0 [...] 36.0-66.0 Lymph % 11.7 % Low 24.0-44.0 Addison % 11.9 % High 2.0-8.0 Eos % 1.1 % Normal 0.0-3.0 Baso % 0.3 % Normal 0.0-1.0 Immature Granulocyte % 0.5 % Normal 0-3.0 Nucleated Red Blood Cell % 0.0 % Normal 0-0 Neutrophils # 2.8 10 Normal 1.5-8.5 Lymph # 0.4 10 Low 1.5-5.0 Addison # 0.5 10 Normal 0.0-0.8 Eos # [...] developed and its performance characteristics determined by [employer]. It has not been cleared or approved [...] cofactor activity; FVIII - factor VIII activity. CARPET FINISHING SUPERVISOR: For questions regarding panel interpretation, please contact Mikal Wasserman M.D. at [facility] at . DISCLAIMER These assessments and interpretations [...] (1) The National Heart, Lung and Blood [place]. The Diagnosis, Evaluation and Management of von Willebrand Disease. [place], [place]: National Institutes of Health Publication [id number]. [...] MYOCARDIAL INFARCTION 2.5-3.5 13 Performed at: - [facility] [id number] Supervisor Blasting: Matt Mcdonnell MD, Phone: [phone] Performed at: [employer] [address] [place], [place], [place] [id number] Supervisor Blasting: Gary Youngblood MD, Phone: [phone] Performed at: [facility] [id number] Supervisor Blasting: Teresa Nguyen MD, Phone: [phone] ASSAY INFORMATION: Real Time RT-PCR or TMA. Both RT-PCR and TMA are nucleic acid amplification tests (NAAT) which are molecular testing modalities and recommended by the CDC for passenger travel. Testing and International Air Travel, cdc.gov/coronavirus/2019-ncov/travelers/jlgzngj-oma-ljoedy.html 09/01/2020 NOTE: The COVID-19 assay is under Emergency Use Authorization (EUA) by the U.S. Food and Drug Administration. [employer] and [employer] are designated as high complexity laboratories by the Clinical Laboratory Improvement Amendments of 1988 (CLIA) and are qualified to perform this test. Not Detected 15 TRANSFUSED PRODUCT: PACKED C ELLS COUNT: 3 16 THE CEA ASSAY IS PERFORMED O N THE [employer] BY CHEMILUMINESCENCE AND SHOULD NOT BE COMPARED [...] Little GFR Left ESRD GFR <15 on MOBILE SECURITY SPECIALIST 18 Units are mL/min/1.73 m2 Chronic Kidney Disease Staging per NKF: Stage I & II GFR >=60 Normal to Mildly Decreased Stage III GFR 30-59 Moderately Decreased Stage IV GFR 15-29 Severely Decreased Stage V GFR <15 Very Little GFR Left ESRD GFR <15 on MOBILE SECURITY SPECIALIST 19 Negative results do not prec lude [...] pathogens. DISCLAIMER: Testing was performed using the [employer] SARS-CoV-2 test. This test was developed and its performance characteristics determined by [employer]. This test has not been FDA cleared [...] Little GFR Left ESRD GFR <15 on MOBILE SECURITY SPECIALIST 30 THE CEA ASSAY IS PERFORMED O [...] Little GFR Left ESRD GFR <15 on MOBILE SECURITY SPECIALIST 33 TRANSFUSED PRODUCT: PACKED C ELLS COUNT: [...] Little GFR Left ESRD GFR <15 on MOBILE SECURITY SPECIALIST 36 Units are mL/min/1.73 m2 Chronic Kidney Disease Staging per NKF: Stage I & II GFR >=60 Normal to Mildly Decreased Stage III GFR 30-59 Moderately Decreased Stage IV GFR 15-29 Severely Decreased Stage V GFR <15 Very Little GFR Left ESRD GFR <15 on MOBILE SECURITY SPECIALIST 37 ASSAY INFORMATION: Real Time RT-PCR NOTE: The COVID-19 assay has been cleared by the U.S. Food and Drug Administration under the Emergency Use Authorization (EUA). [employer] and [employer] are designated as high complexity laboratories by [...] Little GFR Left ESRD GFR <15 on MOBILE SECURITY SPECIALIST 40 THERAPUTIC HUMAN INR VALUES INDICATIONS NORMAL RANGES PROPHYLAXIS/TREATMENT OF: VENOUS THROMBOSIS 2.0-3.0 PULMONARY EMBOLISM 2.0-3.0 PREVENTION OF SYSTEMIC EMBOLISM FROM: TISSUE HEART VALVES 2.0-3.0 ACUTE MYOCARDIAL INFARCTION 2.0-3.0 VALVULAR HEART DISEASE 2.0-3.0 ATRIAL FIBRILLATION 2.0-3.0 MECHANICAL VALVES(HIGH RISK) 2.5-3.5 RECURRENT MYOCARDIAL INFARCTION 2.5-3.5 41 Y/N query for Sepsis Lactate Rule: Y Procedures Date Code Description Status 03/28/2021 36766 [place] W/I 7 Days Of DC, Comm W/I 2 Dys Completed 03/23/2021 06414 Office/Outpatient Established Mo d MDM 30-39 Min Completed 03/23/2021 [id number] Diabetic Foot Exam Completed 01/25/2021 06639 [place] W/I 7 Days Of DC, Comm W/I 2 Dys Completed 12/27/2020 22474 Office/Outpatient Established Mo d MDM 30-39 Min Completed 12/19/2020 25859 Office/Outpatient Established Mo d MDM 30-39 Min [...] Visit 01/25/2021 2:15p Main Office Pleskach, Nadiya, POULTRY PROCESSOR D64.9 Anemia, unspecified K29.61 Other gastritis with bleedin g Office Visit 12/27/2020 3:45p Main Office Anitha Gamez M.D. 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 D64.9 Anemia, unspecified Office Visit 12/19/2020 2:15p Main Office PleskachStevey, POULTRY PROCESSOR E11.6 9 Type 2 diabetes mellitus with other specified complication E78.2 Mixed hyperlipidemia I10 Essential (primary) hyperten yara 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 C18.9 Malignant neoplasm of colon, unspecified I48.91 Unspecified atrial fibrillat ion Assessments Date Code Description Provider 03/28/2021 D64.9 Anemia, unspecified Pleskach, Mo lly, [facility] 03/28/2021 K29.61 Other gastritis with bleeding Pl Nadiya hogan, POULTRY PROCESSOR 03/23/2021 E11.69 Type 2 diabetes mellitus with ot her specified complication Pleskach, Nadiya, POULTRY PROCESSOR 03/23/2021 C18.9 Malignant neoplasm of colon, uns pecified Pleskach Nadiya, POULTRY PROCESSOR 03/23/2021 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 Nadiya Bryan , POULTRY PROCESSOR 03/23/2021 E78.2 Mixed hyperlipidemia Chayo Bryan, POULTRY PROCESSOR 03/23/2021 I10 Essential (primary) hypertension Pleskach, Nadiya, POULTRY PROCESSOR 03/23/2021 I48.91 Unspecified atrial fibrillation Pleskach Nadiya, POULTRY PROCESSOR 03/23/2021 D64.9 Anemia, unspecified Pleskach, Mo lly, POULTRY PROCESSOR 01/25/2021 D64.9 Anemia, unspecified Pleskach, Mo lly, POULTRY PROCESSOR 01/25/2021 K29.61 Other gastritis with bleeding Pl eskachNadiya, POULTRY PROCESSOR 12/27/2020 E11.69 Type 2 diabetes mellitus with ot her specified complication Anitha Gamez M.D. 12/27/2020 C18.9 Malignant neoplasm of colon, uns pecified Anitha Gamez M.D. 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 12/27/2020 D64.9 Anemia, unspecified Angela Gamez M.D. 12/19/2020 E11.69 Type 2 diabetes mellitus with ot her specified complication Nadiya Bryan, POULTRY PROCESSOR 12/19/2020 E78.2 Mixed hyperlipidemia PleChayo tracey, POULTRY PROCESSOR 12/19/2020 I10 Essential (primary) hypertension Nadiya Bryan, POULTRY PROCESSOR 12/19/2020 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 Nadiya Bryan , POULTRY PROCESSOR 12/19/2020 C18.9 Malignant neoplasm of colon, uns [...] to Reason for Referral Status Appt Date [facility] nose bleed. Closed 0 [address] [facility], [address] [phone]
--- OUTSIDE RECORDS SUMMARY | 2021-06-19 13:38 | CCD | Continuity of Care Document ---
Author Author Meron ALMEIDA MD Organization Unknown Address [address] [facility], [address] [place] [address] Phone [phone] Care Team Providers [employer] Detailer Name Role Phone Naila Lambert M.D. AUTM [phone] Nadiya Bryan N.P. 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 60caps D62 Jeff Cramer M.D. 01/04/2021 - 02/21/2021 Immunizations Description No Information Available Vital Signs Date Vital Result Comment 06/06/2021 1:50pm BP Systolic 132 mmHg BP Diastolic 81 mmHg Heart Rate 99 /min O2 % BldC Oximetry 99 % Height 61 inches 5'1" Weight 127.00 lb BMI (Body Mass Index) 24.0 kg/m2 [place] Body Weight 105 lb Weight 57.607 kg BSA (Body Surface Area) 1.56 m2 03/01/2021 1:37pm BP Systolic 112 mmHg BP Diastolic 58 mmHg Height 61 inches 5'1" Weight 116.00 lb BMI (Body Mass Index) 21.9 kg/m2 [place] Body Weight 105 lb Weight 52.618 kg BSA (Body Surface Area) 1.50 m2 Results Test Acquired Date Facility Test Result H/L Range Note Laboratory test finding 02/27/2021 [facility] Main Lab [address] [place] [address] [phone] Blood Urea Nitrogen 26 mg/dL High 7-18 Creatinine With GFR 02/27/2021 [facility] Main Lab [address] [place], [place] [id number] [phone] Creatinine For GFR 0.76 mg/dL Normal 0.55-1.30 Glomerular Filtration Rate > 60.0 Normal >32 1 Total Iron Binding Capacit 02/27/2021 [facility] Main Lab [address] [place] [address] [phone] Iron (Fe) 79 g/dL Normal 50-170 Total Iron Binding Capacity 384 g/dL Normal 250-450 Percent Saturation 20.6 % Normal 13.2-45.0 Laboratory test finding 02/27/2021 [facility] Main Lab [address] [place] [address] [phone] Ferritin 1039 NG/ML High 8-252 CBC With Differential 02/27/2021 [facility] Main Lab [address] [place] [address] [phone] White Blood Count 6.0 10 Normal 4.0-10.0 [...] 36.0-66.0 Lymph % 4.7 % Low 24.0-44.0 [place] % 11.6 % High 2.0-8.0 Eos % 0.5 % Normal 0.0-3.0 Baso % 0.3 % Normal 0.0-1.0 Immature Granulocyte % 0.8 % Normal 0-3.0 Nucleated Red Blood Cell % 0.3 % High 0-0 Neutrophils # 4.9 10 Normal 1.5-8.5 Lymph # 0.3 10 Low 1.5-5.0 [place] # 0.7 10 Normal 0.0-0.8 Eos # 0.0 10 Normal 0.0-0.5 Baso # 0.0 10 Normal 0.0-0.2 1 Units are mL/min/1.73 m2 Chronic Kidney Disease Staging per NKF: Stage I & II GFR >=60 Normal to Mildly Decreased Stage III GFR 30-59 Moderately Decreased Stage IV GFR 15-29 Severely Decreased Stage V GFR <15 Very Little GFR Left ESRD GFR <15 on SAFETY ADMIN ASSISTANT Procedures Date Code Description Status 04/14/2021 19731 Endoscopy Upper GI W/ Ablation O f Tumors/Polyps/Lesions Completed 04/14/2021 61251 Endoscopy Upper GI Control Hemor rhage Completed 03/01/2021 58690 Office/Outpatient Established Lo w MDM 20-29 Min Completed 01/20/2021 21086 Endoscopy Upper GI W/ Ablation O f Tumors/Polyps/Lesions Completed 01/20/2021 75641 Endoscopy Upper GI Control Hemor rhage Completed 01/04/2021 57340 Office/Outpatient Established Mo d MDM 30-39 Min Completed Medical Devices Description No Information Available Encounters Type Date Location Provider Dx Diagnosis Office Visit 03/01/2021 1:00p [facility] Pra dean Cramer M.D. D62 Acute posthemorrhagic anemia K31.811 Angiodysplasia of stomach an d duodenum with bleeding K92.1 [facility] Office Visit 01/04/2021 2:00p [facility] Char Cramer M.D. D62 Acute posthemorrhagic anemia K92.1 [...] Cramer M.D. Plan of Treatment Future Appointment(s):* 06/12/2021 11:40 am - Jeff Cramer M.D. at [facility] 06/06/2021 - Martin Almeida MD* R04.0 Epistaxis* Comments:* I believe that the epistaxis episode was due to low anemia levels and increase in blood pressure. The area appears to be healing well. I do not believe that cauterization is necessary at this point. She does use saline spray. She was instructed to use pea sized drop of Vaseline or mupirocin to keep the nostril moist. She was instructed for the next couple weeks no heavy lifting, no nose blowing due to causing pressure, and no bending over to tie shoes. We will follow up as ne eded. Functional Status Description No Information Available Mental Status Description No Information Available Referrals Refer to Dr Reason for Referral Status Appt Date Martin Almeida M.D. NOSEBLEEDS Scheduled [address] [place] [address] [address] [place] [address] [phone] Jeff Cramer M.D. ANEMIA Scheduled 01/17 [facility] [address] [facility], [address] [place], [place] [address] [phone]
--- OUTSIDE RECORDS SUMMARY | 2021-06-19 13:38 | CCD | Continuity of Care Document ---
Author Author Meron BRYAN [employer] Organization Unknown Address [address] [place] [address] Phone [phone] Care Team Providers Care Belt Maker Name Role Phone [facility] AUTM [phone] Niels Decker M.D. AUTM [phone] [facility] AUTM [phone] Jeff Cramer AUTM [phone] Problems Active Problems Provider Date Type 2 [...] 236units C18.9 Nadiya Bryan FNP 06/16/2020 Z93.2 [place] Remover Wipes Misc use 3-4 wipes every 4 days and as needed when changing ostomy 2Box Z93.2 Nadiya Bryan FNP 06/16/2020 C18.9 Efren Adapt Ceraing change every 4-5 days and as needed ref #[id number] 05 20units Nadiya Bryan FNP 05/05/2020 Greenback 2 Piece Ostomy Skin Barrier ref # [id number] márquez ge every 4-5 days and as needed 20units C18.9 Nadiya Bryan FNP 04/14/2020 Z93.2 Greenback 2 Piece Drainable Ostomy Pouch ref # [id number] c hange every 4-5 days and as [...] CPT Code Status Date Vaccine Lot # 52729 Refused 04/17/2016 Pneumococcal Vaccine 70008 Refused 04/17/2016 Prevnar 13 [id number] Refused 04/17/2016 Influenza Vaccination Vital Signs Date Vital Result Comment 03/28/2021 11:51am BP Systolic 113 mmHg BP Diastolic 83 mmHg Heart Rate 127 /min Body Temperature 98.0 F Respiratory Rate 18 /min Height 61.5 inches 5'1.50" Weight 114.38 lb O2 % BldC Oximetry 100 % Gallant Body Weight 105 lb BMI (Body Mass Index) 21.3 kg/m2 03/23/2021 3:47pm BP Systolic 110 mmHg BP Diastolic 62 mmHg Heart Rate 64 /min Body Temperature 98.7 F Respiratory Rate 16 /min Height 61.5 inches 5'1.50" Weight 116.38 lb O2 % BldC Oximetry 99 % Gallant Body Weight 105 lb BMI (Body Mass Index) 21.6 kg/m2 Results Test Acquired Date Facility Test Result H/L Range Note Type & Screen -Incl Blood Type,Tye,AB SC 06/07/2021 [place] [address] [phone] Blood Type O POSITIVE Normal AB Screen (Indirect Farooq)Vis NEGATIVE Normal CBC With Differential 06/07/2021 [place] [address] [phone] White Blood Count 5.0 10 Normal 4.0-10.0 [...] 36.0-66.0 Lymph % 4.8 % Low 24.0-44.0 [place] % 11.8 % High 2.0-8.0 Eos % 2.0 % Normal 0.0-3.0 Baso % 0.4 % Normal 0.0-1.0 Immature Granulocyte % 0.6 % Normal 0-3.0 Nucleated Red Blood Cell % 0.0 % Normal 0-0 Neutrophils # 4.0 10 Normal 1.5-8.5 Lymph # 0.2 10 Low 1.5-5.0 [place] # 0.6 10 Normal 0.0-0.8 Eos # 0.1 10 Normal 0.0-0.5 Baso # 0.0 10 Normal 0.0-0.2 Laboratory test finding 06/07/2021 [place] [address] [phone] Packed Cells TRANSFUSED PRODU <SEE NOTE> 1 CBC With Differential 05/31/2021 [place] [address] [phone] White Blood Count 4.9 10 Normal 4.0-10.0 [...] 36.0-66.0 Lymph % 6.5 % Low 24.0-44.0 [place] % 11.0 % High 2.0-8.0 Eos % 1.8 % Normal 0.0-3.0 Baso % 0.6 % Normal 0.0-1.0 Immature Granulocyte % 0.8 % Normal 0-3.0 Nucleated Red Blood Cell % 0.0 % Normal 0-0 Neutrophils # 3.9 10 Normal 1.5-8.5 Lymph # 0.3 10 Low 1.5-5.0 [place] # 0.5 10 Normal 0.0-0.8 Eos # 0.1 10 Normal 0.0-0.5 Baso # 0.0 10 Normal 0.0-0.2 Laboratory test finding 05/31/2021 [place] [address] [phone] Packed Cells TRANSFUSED PRODU <SEE NOTE> 2 Type & Screen -Incl Blood Type,Tye,AB SC 05/31/2021 [place] [address] [phone] Blood Type O POSITIVE Normal AB Screen (Indirect Farooq)Vis NEGATIVE Normal CBC With Differential 05/24/2021 [place] [address] [phone] White Blood Count 5.2 10 Normal 4.0-10.0 [...] 36.0-66.0 Lymph % 4.2 % Low 24.0-44.0 [place] % 11.7 % High 2.0-8.0 Eos % 1.9 % Normal 0.0-3.0 Baso % 0.6 % Normal 0.0-1.0 Immature Granulocyte % 0.6 % Normal 0-3.0 Nucleated Red Blood Cell % 0.0 % Normal 0-0 Neutrophils # 4.2 10 Normal 1.5-8.5 Lymph # 0.2 10 Low 1.5-5.0 [place] # 0.6 10 Normal 0.0-0.8 Eos # 0.1 10 Normal 0.0-0.5 Baso # 0.0 10 Normal 0.0-0.2 Laboratory test finding 05/24/2021 [place] [address] [phone] Packed Cells TRANSFUSED PRODU <SEE NOTE> 3 Type & Screen -Incl Blood Type,Tye,AB SC 05/24/2021 [place] [address] [phone] Blood Type O POSITIVE Normal AB Screen (Indirect Farooq)Vis NEGATIVE Normal CBC With Differential 05/17/2021 [place] [address] [phone] White Blood Count 4.6 10 Normal 4.0-10.0 [...] 36.0-66.0 Lymph % 5.7 % Low 24.0-44.0 [place] % 11.3 % High 2.0-8.0 Eos % 1.7 % Normal 0.0-3.0 Baso % 0.4 % Normal 0.0-1.0 Immature Granulocyte % 0.4 % Normal 0-3.0 Nucleated Red Blood Cell % 0.0 % Normal 0-0 Neutrophils # 3.7 10 Normal 1.5-8.5 Lymph # 0.3 10 Low 1.5-5.0 [place] # 0.5 10 Normal 0.0-0.8 Eos # 0.1 10 Normal 0.0-0.5 Baso # 0.0 10 Normal 0.0-0.2 Type & Screen -Incl Blood Type,Tye,AB SC 05/17/2021 [place] [address] [phone] Blood Type O POSITIVE Normal AB Screen (Indirect Farooq)Vis NEGATIVE Normal Laboratory test finding 05/17/2021 [place] [address] [phone] Packed Cells TRANSFUSED PRODU <SEE NOTE> 4 CBC With Differential 05/10/2021 [place] [address] [phone] White Blood Count 5.2 10 Normal 4.0-10.0 [...] 36.0-66.0 Lymph % 4.8 % Low 24.0-44.0 [place] % 8.7 % High 2.0-8.0 Eos % 1.2 % Normal 0.0-3.0 Baso % 0.4 % Normal 0.0-1.0 Immature Granulocyte % 0.6 % Normal 0-3.0 Nucleated Red Blood Cell % 0.0 % Normal 0-0 Neutrophils # 4.4 10 Normal 1.5-8.5 Lymph # 0.3 10 Low 1.5-5.0 [place] # 0.5 10 Normal 0.0-0.8 Eos # 0.1 10 Normal 0.0-0.5 Baso # 0.0 10 Normal 0.0-0.2 CBC With Differential 05/08/2021 [place] [address] [phone] White Blood Count 4.8 10 Normal 4.0-10.0 [...] 36.0-66.0 Lymph % 5.2 % Low 24.0-44.0 [place] % 11.2 % High 2.0-8.0 Eos % 1.4 % Normal 0.0-3.0 Baso % 0.4 % Normal 0.0-1.0 Immature Granulocyte % 0.4 % Normal 0-3.0 Nucleated Red Blood Cell % 0.0 % Normal 0-0 Neutrophils # 3.9 10 Normal 1.5-8.5 Lymph # 0.3 10 Low 1.5-5.0 [place] # 0.5 10 Normal 0.0-0.8 Eos # 0.1 10 Normal 0.0-0.5 Baso # 0.0 10 Normal 0.0-0.2 Type & Screen -Incl Blood Type,Tye,AB SC 05/08/2021 [place] [address] [phone] Blood Type O POSITIVE Normal AB Screen (Indirect Farooq)Vis NEGATIVE Normal Laboratory test finding 05/08/2021 [place] [address] [phone] Packed Cells TRANSFUSED PRODU <SEE NOTE> 5 Occult Blood 05/08/2021 [place] [address] [phone] Occult Blood OCCULT BLOOD 1 <SEE NOTE> Abnormal 6 Laboratory test finding 05/05/2021 [place] [address] [phone] Packed Cells TRANSFUSED PRODU <SEE NOTE> 7 Type & Screen -Incl Blood Type,Tye,AB SC 05/05/2021 [place] [address] [phone] Blood Type O POSITIVE Normal AB Screen (Indirect Farooq)Vis NEGATIVE Normal CBC With Differential 05/05/2021 [place] [address] [phone] White Blood Count 5.1 10 Normal 4.0-10.0 [...] 36.0-66.0 Lymph % 6.3 % Low 24.0-44.0 [place] % 11.5 % High 2.0-8.0 Eos % 0.8 % Normal 0.0-3.0 Baso % 0.4 % Normal 0.0-1.0 Immature Granulocyte % 0.6 % Normal 0-3.0 Nucleated Red Blood Cell % 0.0 % Normal 0-0 Neutrophils # 4.1 10 Normal 1.5-8.5 Lymph # 0.3 10 Low 1.5-5.0 [place] # 0.6 10 Normal 0.0-0.8 Eos # 0.0 10 Normal 0.0-0.5 Baso # 0.0 10 Normal 0.0-0.2 Factor VIII Panel 05/05/2021 [place] [address] [phone] F8 Activity For F8 Panel 214 % High 56-140 8 F8 Antigen For F8 Panel 115 % Normal 50-200 9 F8 Activity vWB For F8 Panel 71 % Normal 50-200 Interpretation: Note Normal . 10 Platelet Function Analysis 05/05/2021 [place] [address] [phone] Collagen Epinephrine TNP seconds Normal 74-162 11 Laboratory test finding 05/05/2021 [place] [address] [phone] Partial Thromboplastin Time 24.9 seconds Low 25 .9-37.0 Prothrombin Time/Inr 05/05/2021 [place] [address] [phone] Prothrombin Time 14.0 seconds Normal 12.7-14.5 Inr 1.04 Normal 12 Retic (Reticulocyte Count) 05/05/2021 [place] [address] [phone] Reticulocyte % 5.9 % High 0.5-1.5 Reticulocyte # 119.8 10 High 17-77 Retic Hemoglobin Equivalent 30.7 pg Normal 24-36 Laboratory test finding 05/05/2021 [place] [address] [phone] LDH Lactate Dehydrogenase 128 U/L Normal 84-246 Haptoglobin 214 mg/dL Normal 41-333 13 CBC With Differential 04/27/2021 [place] [address] [phone] White Blood Count 4.2 10 Normal 4.0-10.0 [...] 36.0-66.0 Lymph % 8.1 % Low 24.0-44.0 [place] % 12.8 % High 2.0-8.0 Eos % 1.0 % Normal 0.0-3.0 Baso % 0.2 % Normal 0.0-1.0 Immature Granulocyte % 0.5 % Normal 0-3.0 Nucleated Red Blood Cell % 0.0 % Normal 0-0 Neutrophils # 3.3 10 Normal 1.5-8.5 Lymph # 0.3 10 Low 1.5-5.0 [place] # 0.5 10 Normal 0.0-0.8 Eos # 0.0 10 Normal 0.0-0.5 Baso # 0.0 10 Normal 0.0-0.2 CBC With Differential 04/20/2021 Patient Service Ce [place] 1412491 [phone] White Blood Count 3.9 10 Low 4.0-10.0 [...] 36.0-66.0 Lymph % 8.8 % Low 24.0-44.0 [place] % 11.9 % High 2.0-8.0 Eos % 1.0 % Normal 0.0-3.0 Baso % 0.5 % Normal 0.0-1.0 Immature Granulocyte % 0.8 % Normal 0-3.0 Nucleated Red Blood Cell % 0.0 % Normal 0-0 Neutrophils # 3.0 10 Normal 1.5-8.5 Lymph # 0.3 10 Low 1.5-5.0 [place] # 0.5 10 Normal 0.0-0.8 Eos # 0.0 10 Normal 0.0-0.5 Baso # 0.0 10 Normal 0.0-0.2 CBC With Differential 04/12/2021 Patient Service [place] 83[address]446 [phone] White Blood Count 4.6 10 Normal 4.0-10.0 [...] 36.0-66.0 Lymph % 6.6 % Low 24.0-44.0 [place] % 9.4 % High 2.0-8.0 Eos % 0.9 % Normal 0.0-3.0 Baso % 0.2 % Normal 0.0-1.0 Immature Granulocyte % 0.4 % Normal 0-3.0 Nucleated Red Blood Cell % 0.0 % Normal 0-0 Neutrophils # 3.8 10 Normal 1.5-8.5 Lymph # 0.3 10 Low 1.5-5.0 [place] # 0.4 10 Normal 0.0-0.8 Eos # 0.0 10 Normal 0.0-0.5 Baso # 0.0 10 Normal 0.0-0.2 Coronavirus 2019 Nasopharygeal 04/10/2021 Patient S ervice Center [place] [id number] [phone] Coronavirus 2019 Nasopharygeal ASSAY INFORMATIO <SEE N OTE> 14 Total Iron Binding Capacit 04/07/2021 Patient Servi ce Center [place] 5645138 [phone] Iron (Fe) 48 g/dL Low 50-170 Total Iron Binding Capacity 353 g/dL Normal 250-450 Percent Saturation 13.6 % Normal 13.2-45.0 Type & Screen -Incl Blood Type,Tye,AB SC 04/07/2021 [facility] [place] 5645146 [phone] Blood Type O POSITIVE Normal AB Screen (Indirect Farooq)Vis NEGATIVE Normal Laboratory test finding 04/07/2021 [place] [address] [phone] Packed Cells TRANSFUSED PRODU <SEE NOTE> 15 CBC With Differential 04/07/2021 [place] [address] [phone] White Blood Count 3.4 10 Low 4.0-10.0 [...] 36.0-66.0 Lymph % 8.5 % Low 24.0-44.0 [place] % 10.9 % High 2.0-8.0 Eos % 0.9 % Normal 0.0-3.0 Baso % 0.6 % Normal 0.0-1.0 Immature Granulocyte % 0.6 % Normal 0-3.0 Nucleated Red Blood Cell % 0.0 % Normal 0-0 Neutrophils # 2.7 10 Normal 1.5-8.5 Lymph # 0.3 10 Low 1.5-5.0 [place] # 0.4 10 Normal 0.0-0.8 Eos # 0.0 10 Normal 0.0-0.5 Baso # 0.0 10 Normal 0.0-0.2 Laboratory test finding 04/07/2021 [place] [address] [phone] Carcinoembryonic Antigen < 0.5 NG/ML Normal <2.5 16 Ferritin 66 NG/ML Normal 8-252 Comprehensive Metabolic Profil 04/07/2021 [place] [address] [phone] Glucose, Fasting 184 mg/dL High 70-100 Blood [...] 1.2-2.2 Comprehensive Metabolic Profil 03/24/2021 [place] [address] [phone] Glucose, Fasting 96 mg/dL Normal 70-100 Blood [...] Covid Amp 03/24/2021 [place] [address] [phone] Influenza A Amplification NEGATIVE Normal Negati ve 19 Influenza B Amplification NEGATIVE Normal Negative 20 RSV Amplification NEGATIVE Normal Negative 21 Sars Covid-19 Amplification NEGATIVE Normal Negative 22 Laboratory test finding 03/24/2021 [place] [address] [phone] Packed Cells TRANSFUSED PRODU <SEE NOTE> 23 CBC With Differential 03/24/2021 [place] [address] [phone] White Blood Count 4.6 10 Normal 4.0-10.0 [...] 36.0-66.0 Lymph % 6.2 % Low 24.0-44.0 [place] % 11.4 % High 2.0-8.0 Eos % 0.4 % Normal 0.0-3.0 Baso % 0.4 % Normal 0.0-1.0 Immature Granulocyte % 0.4 % Normal 0-3.0 Nucleated Red Blood Cell % 0.7 % High 0-0 Neutrophils # 3.7 10 Normal 1.5-8.5 Lymph # 0.3 10 Low 1.5-5.0 [place] # 0.5 10 Normal 0.0-0.8 Eos # 0.0 10 Normal 0.0-0.5 Baso # 0.0 10 Normal 0.0-0.2 Albumin/Creatinine Ratio, Random Urine 03/17/2021 [facility] [address] [place] [address] [phone] Creatinine, Urine 120.2 mg/dL Not Estab. Albumin, Urine 20.1 ug/mL Not Estab. Alb/Creat Ratio 17 mg/gcreat 0-29 24 Lipid Panel 03/17/2021 [facility] [address] [place] [address] [phone] Cholesterol, Total 123 mg/dL 100-199 Triglycerides 141 mg/dL 0-149 HDL Cholesterol 37 mg/dL Low >39 VLDL Cholesterol Mark 25 mg/dL 5-40 LDL Chol Calc ([facility]) 61 mg/dL 0-99 Comment: NDP Metabolic Panel (14), Comprehensive 03/17/2021 [facility] [address] [place] [address] [phone] Calcium 9.5 mg/dL 8.7-10.3 Glucose 81 mg/dL [...] IU/L 0-32 Hemoglobin A1c 03/17/2021 [facility] [address] [place] [address] [phone] Hemoglobin A1c 4.8 % 4.8-5.6 27 Type & Screen -Incl Blood Type,Tye,AB SC 03/14/2021 [place] [address] [phone] Blood Type O POSITIVE Normal AB Screen (Indirect Farooq)Vis NEGATIVE Normal Laboratory test finding 03/14/2021 [place] [address] [phone] Packed Cells TRANSFUSED PRODU <SEE NOTE> 28 CBC With Differential 03/14/2021 [place] [address] [phone] White Blood Count 4.0 10 Normal 4.0-10.0 [...] 36.0-66.0 Lymph % 6.8 % Low 24.0-44.0 [place] % 9.3 % High 2.0-8.0 Eos % 1.0 % Normal 0.0-3.0 Baso % 0.8 % Normal 0.0-1.0 Immature Granulocyte % 0.3 % Normal 0-3.0 Nucleated Red Blood Cell % 0.0 % Normal 0-0 Neutrophils # 3.3 10 Normal 1.5-8.5 Lymph # 0.3 10 Low 1.5-5.0 [place] # 0.4 10 Normal 0.0-0.8 Eos # 0.0 10 Normal 0.0-0.5 Baso # 0.0 10 Normal 0.0-0.2 CBC With Differential 03/10/2021 [place] [address] [phone] White Blood Count 3.4 10 Low 4.0-10.0 [...] 36.0-66.0 Lymph % 7.6 % Low 24.0-44.0 [place] % 12.9 % High 2.0-8.0 Eos % 1.2 % Normal 0.0-3.0 Baso % 0.6 % Normal 0.0-1.0 Immature Granulocyte % 0.3 % Normal 0-3.0 Nucleated Red Blood Cell % 0.0 % Normal 0-0 Neutrophils # 2.6 10 Normal 1.5-8.5 Lymph # 0.3 10 Low 1.5-5.0 [place] # 0.4 10 Normal 0.0-0.8 Eos # 0.0 10 Normal 0.0-0.5 Baso # 0.0 10 Normal 0.0-0.2 Comprehensive Metabolic Profil 03/10/2021 [place] [address] [phone] Glucose, Fasting 166 mg/dL High 70-100 Blood [...] Binding Capacit 03/10/2021 [place] [address] [phone] Iron (Fe) 72 g/dL Normal 50-170 Total Iron Binding Capacity 352 g/dL Normal 250-450 Percent Saturation 20.5 % Normal 13.2-45.0 Laboratory test finding 03/10/2021 [place] [address] [phone] Carcinoembryonic Antigen < 0.5 NG/ML Normal <2.5 30 Ferritin 492 NG/ML High 8-252 Laboratory test finding 02/28/2021 [place] [address] [phone] Packed Cells TRANSFUSED PRODU <SEE NOTE> 31 Type & Screen -Incl Blood Type,Tye,AB SC 02/28/2021 [place] [address] [phone] Blood Type O POSITIVE Normal AB Screen (Indirect Farooq)Vis NEGATIVE Normal Laboratory test finding 02/27/2021 [place] [address] [phone] Blood Urea Nitrogen 26 mg/dL High 7-18 CBC With Differential 02/27/2021 [place] [address] [phone] White Blood Count 6.0 10 Normal 4.0-10.0 [...] 36.0-66.0 Lymph % 4.7 % Low 24.0-44.0 [place] % 11.6 % High 2.0-8.0 Eos % 0.5 % Normal 0.0-3.0 Baso % 0.3 % Normal 0.0-1.0 Immature Granulocyte % 0.8 % Normal 0-3.0 Nucleated Red Blood Cell % 0.3 % High 0-0 Neutrophils # 4.9 10 Normal 1.5-8.5 Lymph # 0.3 10 Low 1.5-5.0 [place] # 0.7 10 Normal 0.0-0.8 Eos # 0.0 10 Normal 0.0-0.5 Baso # 0.0 10 Normal 0.0-0.2 Laboratory test finding 02/27/2021 Patient Service [place] 0637500 [phone] Ferritin 1039 NG/ML High 8-252 Total Iron Binding Capacit 02/27/2021 Patient Servi [place], [place] 9787788 [phone] Iron (Fe) 79 g/dL Normal 50-170 Total Iron Binding Capacity 384 g/dL Normal 250-450 Percent Saturation 20.6 % Normal 13.2-45.0 Creatinine With GFR 02/27/2021 Patient Service [place], [place] 1246790 [phone] Creatinine For GFR 0.76 mg/dL Normal 0.55-1.30 Glomerular Filtration Rate > 60.0 Normal >32 3 2 Laboratory test finding 02/10/2021 [place] [address] [phone] Packed Cells TRANSFUSED PRODU <SEE NOTE> 33 Type & Screen -Incl Blood Type,Tye,AB SC 02/10/2021 [place] [address] [phone] Blood Type O POSITIVE Normal AB Screen (Indirect Farooq)Vis NEGATIVE Normal CBC With Differential 02/09/2021 [place] [address] [phone] White Blood Count 3.9 10 Low 4.0-10.0 [...] 36.0-66.0 Lymph % 7.2 % Low 24.0-44.0 [place] % 10.0 % High 2.0-8.0 Eos % 1.0 % Normal 0.0-3.0 Baso % 0.5 % Normal 0.0-1.0 Immature Granulocyte % 0.5 % Normal 0-3.0 Nucleated Red Blood Cell % 0.0 % Normal 0-0 Neutrophils # 3.1 10 Normal 1.5-8.5 Lymph # 0.3 10 Low 1.5-5.0 [place] # 0.4 10 Normal 0.0-0.8 Eos # 0.0 10 Normal 0.0-0.5 Baso # 0.0 10 Normal 0.0-0.2 Laboratory test finding 01/27/2021 [place] [address] [phone] Ferritin 39 NG/ML Normal 8-252 Carcinoembryonic Antigen 0.5 NG/ML Normal <2.5 34 Comprehensive Metabolic Profil 01/27/2021 [place] [address]459[place] [phone] Glucose, Fasting 59 mg/dL Low 70-100 Blood [...] CBC With Differential 01/27/2021 Patient Service Ce [place], [place] [address]331862 [phone] White Blood Count 4.2 10 Normal 4.0-10.0 [...] 36.0-66.0 Lymph % 13.6 % Low 24.0-44.0 [place] % 14.6 % High 2.0-8.0 Eos % 1.4 % Normal 0.0-3.0 Baso % 0.5 % Normal 0.0-1.0 Immature Granulocyte % 0.5 % Normal 0-3.0 Nucleated Red Blood Cell % 0.0 % Normal 0-0 Neutrophils # 2.9 10 Normal 1.5-8.5 Lymph # 0.6 10 Low 1.5-5.0 [place] # 0.6 10 Normal 0.0-0.8 Eos # 0.1 10 Normal 0.0-0.5 Baso # 0.0 10 Normal 0.0-0.2 Total Iron Binding Capacit 01/27/2021 [place] [address] [phone] Iron (Fe) 59 g/dL Normal 50-170 Total Iron Binding Capacity 397 g/dL Normal 250-450 Percent Saturation 14.9 % Normal 13.2-45.0 Complete Blood Count 01/20/2021 [place] [address] [phone] White Blood Count 3.3 10 Low 4.0-10.0 [...] Laboratory test finding 01/20/2021 [place] [address] [phone] Blood Urea Nitrogen 21 mg/dL High 7-18 Creatinine With GFR 01/20/2021 [place] [address] [phone] Creatinine For GFR 0.69 mg/dL Normal 0.55-1.30 Glomerular Filtration Rate > 60.0 Normal >32 3 6 Type & Screen -Incl Blood Type,Tye,AB SC 01/20/2021 [place] [address] [phone] Blood Type O POSITIVE Normal AB Screen (Indirect Farooq)Vis NEGATIVE Normal Coronavirus 2019 Nasopharygeal 01/16/2021 [place] [address] [phone] Coronavirus 2019 Nasopharygeal ASSAY INFORMATIO <SEE N OTE> 37 Type & Screen -Incl Blood Type,Tye,AB SC 01/03/2021 [place] [address] [phone] Blood Type O POSITIVE Normal AB Screen (Indirect Farooq)Vis NEGATIVE Normal Laboratory test finding 01/03/2021 [place] [address] [phone] Packed Cells TRANSFUSED PRODU <SEE NOTE> 38 Comprehensive Metabolic Profil 01/02/2021 [place] [address] [phone] Glucose, Fasting 155 mg/dL High 70-100 Blood [...] Laboratory test finding 01/02/2021 [place] [address] [phone] Thyroid Stimulating Hormone 1.660 uIU/ML Normal 0. 358-3.740 Free T4 0.87 ng/dL Normal 0.76-1.46 Ferritin 58 NG/ML Normal 8-252 Total Iron Binding Capacit 01/02/2021 [place] [address] [phone] Iron (Fe) 55 g/dL Normal 50-170 Total Iron Binding Capacity 398 g/dL Normal 250-450 Percent Saturation 13.8 % Normal 13.2-45.0 CBC With Differential 01/02/2021 [place] [address] [phone] White Blood Count 4.3 10 Normal 4.0-10.0 [...] 36.0-66.0 Lymph % 10.7 % Low 24.0-44.0 [place] % 13.1 % High 2.0-8.0 Eos % 0.7 % Normal 0.0-3.0 Baso % 0.5 % Normal 0.0-1.0 Immature Granulocyte % 0.5 % Normal 0-3.0 Nucleated Red Blood Cell % 0.0 % Normal 0-0 Neutrophils # 3.2 10 Normal 1.5-8.5 Lymph # 0.5 10 Low 1.5-5.0 [place] # 0.6 10 Normal 0.0-0.8 Eos # 0.0 10 Normal 0.0-0.5 Baso # 0.0 10 Normal 0.0-0.2 Laboratory test finding 12/23/2020 [place] [address] [phone] iSTAT Troponin 0.01 NG/ML Normal 0.00-0.08 Istat Chem8+ Panel 12/23/2020 [place] [address] [phone] iSTAT HCT 33.0 % Low 38.0-51.0 iSTAT Glucose 94 mg/dL Normal 70-105 iSTAT Sodium 138 mEq/L Normal 136-145 iSTAT Potassium 4.2 mEq/L Normal 3.5-5.1 iSTAT CA++ 5.0 mg/dL Normal 4.5-5.3 iSTAT Chloride 102 mEq/L Normal 98-109 iSTAT Co2 27.0 MM/L Normal 23.0-27.0 iSTAT BUN 20 mg/dL Normal 8-26 iSTAT Creatinine 0.7 mg/dL Normal 0.6-1.3 CBC With Differential 12/23/2020 Patient Service [facility] [place] [address] [phone] White Blood Count 4.5 10 Normal 4.0-10.0 [...] 36.0-66.0 Lymph % 9.7 % Low 24.0-44.0 [place] % 11.9 % High 2.0-8.0 Eos % 0.9 % Normal 0.0-3.0 Baso % 0.4 % Normal 0.0-1.0 Immature Granulocyte % 0.4 % Normal 0-3.0 Nucleated Red Blood Cell % 0.0 % Normal 0-0 Neutrophils # 3.5 10 Normal 1.5-8.5 Lymph # 0.4 10 Low 1.5-5.0 [place] # 0.5 10 Normal 0.0-0.8 Eos # 0.0 10 Normal 0.0-0.5 Baso # 0.0 10 Normal 0.0-0.2 PT & Aptt 12/23/2020 Patient [facility] [place] 5645131 [phone] Prothrombin Time 13.3 seconds Normal 12.5-14.3 Inr 0.99 Normal 40 Partial Thromboplastin Time 29.5 seconds Normal 24.2-38.5 Liver Profile 12/23/2020 [place] [address] [phone] Ast/Sgot 13 U/L Normal 7-37 Alt/SGPT 14 U/L Normal 12-78 Alkaline Phosphatase 95 U/L Normal 45-117 Bilirubin,Total 0.9 mg/dL Normal 0.2-1.0 Bilirubin,Direct 0.3 mg/dL High 0.0-0.2 Total Protein 6.5 GM/DL Normal 6.4-8.2 Albumin 3.4 GM/DL Normal 3.2-5.2 Albumin/Globulin Ratio 1.1 Low 1.2-2.2 Laboratory test finding 12/23/2020 [place] [address] [phone] Lipase 73 U/L Normal 73-393 Lactic Acid Sepsis Protocol 0.8 mmol/L Normal 0.4-2.0 41 CBC With Differential 12/19/2020 [place] [address] [phone] White Blood Count 3.8 10 Low 4.0-10.0 [...] 36.0-66.0 Lymph % 11.7 % Low 24.0-44.0 [place] % 11.9 % High 2.0-8.0 Eos % 1.1 % Normal 0.0-3.0 Baso % 0.3 % Normal 0.0-1.0 Immature Granulocyte % 0.5 % Normal 0-3.0 Nucleated Red Blood Cell % 0.0 % Normal 0-0 Neutrophils # 2.8 10 Normal 1.5-8.5 Lymph # 0.4 10 Low 1.5-5.0 [place] # 0.5 10 Normal 0.0-0.8 Eos # [...] developed and its performance characteristics determined by [employer]. It has not been cleared or approved [...] cofactor activity; FVIII - factor VIII activity. SCRAPER LOADER OPERATOR: For questions regarding panel interpretation, please contact Mikal Wasserman M.D. at [email or web address] at . DISCLAIMER These assessments and interpretations [...] (1) The National Heart, Lung and Blood [place]. The Diagnosis, Evaluation and Management of von Willebrand Disease. Nicasio, MD: National Institutes of Health Publication 08-5832. [...] MYOCARDIAL INFARCTION 2.5-3.5 13 Performed at: - [facility] [id number] [employer] Lining Finisher Helper: Matt Mcdonnell MD, Phone: [phone] Performed at: [facility] [address] [place], [place], [place] [id number] [employer] Lining Finisher Helper: Gary Youngblood MD, Phone: [phone] Performed at: [facility] [id number] [employer] Lining Finisher Helper: Teresa Nguyen MD, Phone: [phone] ASSAY INFORMATION: Real Time RT-PCR or TMA. Both RT-PCR and TMA are nucleic acid amplification tests (NAAT) which are molecular testing modalities and recommended by the CDC for passenger travel. Testing and International Air Travel, cdc.gov/[email or web address]-ncov/[email or web address].html 09/01/2020 NOTE: The COVID-19 assay is under Emergency Use Authorization (EUA) by the U.S. Food and Drug Administration. [facility] and [email or web address] are designated as high complexity laboratories by the Clinical Laboratory Improvement Amendments of 1988 (CLIA) and are qualified to perform this test. Not Detected 15 TRANSFUSED PRODUCT: PACKED C ELLS COUNT: 3 16 THE CEA ASSAY IS PERFORMED O N THE [facility] BY CHEMILUMINESCENCE AND SHOULD NOT BE COMPARED [...] Little GFR Left ESRD GFR <15 on PAIRER SUBSTANDARD 18 Units are mL/min/1.73 m2 Chronic Kidney Disease Staging per NKF: Stage I & II GFR >=60 Normal to Mildly Decreased Stage III GFR 30-59 Moderately Decreased Stage IV GFR 15-29 Severely Decreased Stage V GFR <15 Very Little GFR Left ESRD GFR <15 on PAIRER SUBSTANDARD 19 Negative results do not prec lude [...] pathogens. DISCLAIMER: Testing was performed using the [facility] SARS-CoV-2 test. This test was developed and its performance characteristics determined by [facility]. This test has not been FDA cleared [...] Little GFR Left ESRD GFR <15 on PAIRER SUBSTANDARD 30 THE CEA ASSAY IS PERFORMED O N THE [facility] BY CHEMILUMINESCENCE AND SHOULD NOT BE [...] Little GFR Left ESRD GFR <15 on PAIRER SUBSTANDARD 33 TRANSFUSED PRODUCT: PACKED C ELLS COUNT: [...] Little GFR Left ESRD GFR <15 on PAIRER SUBSTANDARD 36 Units are mL/min/1.73 m2 Chronic Kidney Disease Staging per NKF: Stage I & II GFR >=60 Normal to Mildly Decreased Stage III GFR 30-59 Moderately Decreased Stage IV GFR 15-29 Severely Decreased Stage V GFR <15 Very Little GFR Left ESRD GFR <15 on PAIRER SUBSTANDARD 37 ASSAY INFORMATION: Real Time RT-PCR NOTE: The COVID-19 assay has been cleared by the U.S. Food and Drug Administration under the Emergency Use Authorization (EUA). [facility] and [email or web address] are designated as high complexity laboratories by [...] Little GFR Left ESRD GFR <15 on PAIRER SUBSTANDARD 40 THERAPUTIC HUMAN INR VALUES INDICATIONS NORMAL RANGES PROPHYLAXIS/TREATMENT OF: VENOUS THROMBOSIS 2.0-3.0 PULMONARY EMBOLISM 2.0-3.0 PREVENTION OF SYSTEMIC EMBOLISM FROM: TISSUE HEART VALVES 2.0-3.0 ACUTE MYOCARDIAL INFARCTION 2.0-3.0 VALVULAR HEART DISEASE 2.0-3.0 ATRIAL FIBRILLATION 2.0-3.0 MECHANICAL VALVES(HIGH RISK) 2.5-3.5 RECURRENT MYOCARDIAL INFARCTION 2.5-3.5 40 Y/N query for Sepsis Lactate Rule: Y Procedures Date Code Description Status 03/28/2021 [address]381 [place] W/I 7 Days Of DC, Comm W/I 2 Dys Completed 03/23/2021 92315 Office/Outpatient Established Mo d MDM 30-39 Min Completed 03/23/2021 [id number] Diabetic Foot Exam Completed 01/25/2021 26631 [place] W/I 7 Days Of DC, Comm W/I 2 Dys Completed 12/27/2020 24053 Office/Outpatient Established Mo d MDM 30-39 Min Completed 12/19/2020 66167 Office/Outpatient Established Mo d MDM 30-39 Min [...] Visit 01/25/2021 2:15p Main Office Pleskach, Nadiya, [employer] D64.9 Anemia, unspecified K29.61 Other gastritis with bleedin g Office Visit 12/27/2020 3:45p Main Office Anitha Gamez M.D. 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 D64.9 Anemia, unspecified Office Visit 12/19/2020 2:15p Main Office PleskachStevey, [employer] E11.6 9 Type 2 diabetes mellitus with other specified complication E78.2 Mixed hyperlipidemia I10 Essential (primary) hyperten yara 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 C18.9 Malignant neoplasm of colon, unspecified I48.91 Unspecified atrial fibrillat ion Assessments Date Code Description Provider 03/28/2021 D64.9 Anemia, unspecified Pleskach, Mo lly, [facility] 03/28/2021 K29.61 Other gastritis with bleeding Pl Nadiya hogan, [employer] 03/23/2021 E11.69 Type 2 diabetes mellitus with ot her specified complication Pleskach, Nadiya, [employer] 03/23/2021 C18.9 Malignant neoplasm of colon, uns pecified Pleskach Nadiya, [employer] 03/23/2021 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 Nadiya Bryan , [employer] 03/23/2021 E78.2 Mixed hyperlipidemia Chayo Bryan, [employer] 03/23/2021 I10 Essential (primary) hypertension Pleskach, Nadiya, [employer] 03/23/2021 I48.91 Unspecified atrial fibrillation Pleskach Nadiya, [employer] 03/23/2021 D64.9 Anemia, unspecified Pleskach, Mo lly, [employer] 01/25/2021 D64.9 Anemia, unspecified Pleskach, Mo lly, [employer] 01/25/2021 K29.61 Other gastritis with bleeding Pl eskachNadiya, [employer] 12/27/2020 E11.69 Type 2 diabetes mellitus with ot her specified complication Anitha Gamez M.D. 12/27/2020 C18.9 Malignant neoplasm of colon, uns pecified Anitha Gamez M.D. 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 12/27/2020 D64.9 Anemia, unspecified Angela Gamez M.D. 12/19/2020 E11.69 Type 2 diabetes mellitus with ot her specified complication Nadiya Bryan, [employer] 12/19/2020 E78.2 Mixed hyperlipidemia PleChayo tracey, [employer] 12/19/2020 I10 Essential (primary) hypertension Nadiya Bryan, [employer] 12/19/2020 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 Nadiya Bryan , [employer] 12/19/2020 C18.9 Malignant neoplasm of colon, uns [...] for Referral Status Appt Date [facility] nose bleed. Closed 0 826 [facility], [address] [phone]
--- OUTSIDE RECORDS SUMMARY | 2021-06-19 13:38 | CCD | Continuity of Care Document ---
Author Author Meron BRYAN FRONT OFFICE MANAGER Organization Unknown Address [address] [place] [address] Phone [phone] Care Team Providers Care Opto Mechanical Engineer Name Role Phone [facility] AUTM [phone] Niels Decker M.D. AUTM [phone] [facility] AUTM Jeff Cramer AUTM [phone] Problems Active Problems Provider Date Type 2 [...] 236units C18.9 Nadiya Bryan FNP 06/16/2020 Z93.2 [place] Remover Wipes Misc use 3-4 wipes every 4 days and as needed when changing ostomy 2Box Z93.2 Nadiya Bryan FNP 06/16/2020 C18.9 Efren Adapt Ceraing change every 4-5 days and as needed ref #[id number] 05 20units Nadiya Bryan FNP 05/05/2020 [place] 2 Piece Ostomy Skin Barrier ref # [id number] márquez ge every 4-5 days and as needed 20units C18.9 Nadiya Bryan FNP 04/14/2020 Z93.2 [place] 2 Piece Drainable Ostomy Pouch ref # [id number] c hange every 4-5 days and as [...] CPT Code Status Date Vaccine Lot # [id number] Refused 04/17/2016 Pneumococcal Vaccine 63186 Refused 04/17/2016 Prevnar 13 14891 Refused 04/17/2016 Influenza Vaccination Vital Signs Date Vital Result Comment 03/28/2021 11:51am BP Systolic 113 mmHg BP Diastolic 83 mmHg Heart Rate 127 /min Body Temperature 98.0 F Respiratory Rate 18 /min Height 61.5 inches 5'1.50" Weight 114.38 lb O2 % BldC Oximetry 100 % [place] Body Weight 105 lb BMI (Body Mass Index) 21.3 kg/m2 03/23/2021 3:47pm BP Systolic 110 mmHg BP Diastolic 62 mmHg Heart Rate 64 /min Body Temperature 98.7 F Respiratory Rate 16 /min Height 61.5 inches 5'1.50" Weight 116.38 lb O2 % BldC Oximetry 99 % [place] Body Weight 105 lb BMI (Body Mass Index) 21.6 kg/m2 Results Test Acquired Date Facility Test Result H/L Range Note Type & Screen -Incl Blood Type,Tye,AB SC 05/31/2021 [place] [address] [phone] Blood Type O POSITIVE Normal AB Screen (Indirect Farooq)Vis NEGATIVE Normal CBC With Differential 05/31/2021 [place] [address] [phone] White Blood Count 4.9 10 Normal 4.0-10.0 [...] 36.0-66.0 Lymph % 6.5 % Low 24.0-44.0 Adair % 11.0 % High 2.0-8.0 Eos % 1.8 % Normal 0.0-3.0 Baso % 0.6 % Normal 0.0-1.0 Immature Granulocyte % 0.8 % Normal 0-3.0 Nucleated Red Blood Cell % 0.0 % Normal 0-0 Neutrophils # 3.9 10 Normal 1.5-8.5 Lymph # 0.3 10 Low 1.5-5.0 Adair # 0.5 10 Normal 0.0-0.8 Eos # 0.1 10 Normal 0.0-0.5 Baso # 0.0 10 Normal 0.0-0.2 Laboratory test finding 05/31/2021 [place] [address] [phone] Packed Cells TRANSFUSED PRODU <SEE NOTE> 1 CBC With Differential 05/24/2021 [place] [address] [phone] White Blood Count 5.2 10 Normal 4.0-10.0 [...] 36.0-66.0 Lymph % 4.2 % Low 24.0-44.0 Adair % 11.7 % High 2.0-8.0 Eos % 1.9 % Normal 0.0-3.0 Baso % 0.6 % Normal 0.0-1.0 Immature Granulocyte % 0.6 % Normal 0-3.0 Nucleated Red Blood Cell % 0.0 % Normal 0-0 Neutrophils # 4.2 10 Normal 1.5-8.5 Lymph # 0.2 10 Low 1.5-5.0 Adair # 0.6 10 Normal 0.0-0.8 Eos # 0.1 10 Normal 0.0-0.5 Baso # 0.0 10 Normal 0.0-0.2 Laboratory test finding 05/24/2021 [place] [address] [phone] Packed Cells TRANSFUSED PRODU <SEE NOTE> 2 Type & Screen -Incl Blood Type,Tye,AB SC 05/24/2021 [place] [address] [phone] Blood Type O POSITIVE Normal AB Screen (Indirect Farooq)Vis NEGATIVE Normal CBC With Differential 05/17/2021 [place] [address] [phone] White Blood Count 4.6 10 Normal 4.0-10.0 [...] 36.0-66.0 Lymph % 5.7 % Low 24.0-44.0 Adair % 11.3 % High 2.0-8.0 Eos % 1.7 % Normal 0.0-3.0 Baso % 0.4 % Normal 0.0-1.0 Immature Granulocyte % 0.4 % Normal 0-3.0 Nucleated Red Blood Cell % 0.0 % Normal 0-0 Neutrophils # 3.7 10 Normal 1.5-8.5 Lymph # 0.3 10 Low 1.5-5.0 Adair # 0.5 10 Normal 0.0-0.8 Eos # 0.1 10 Normal 0.0-0.5 Baso # 0.0 10 Normal 0.0-0.2 Type & Screen -Incl Blood Type,Tye,AB SC 05/17/2021 [place] [address] [phone] Blood Type O POSITIVE Normal AB Screen (Indirect Farooq)Vis NEGATIVE Normal Laboratory test finding 05/17/2021 [place] [address] [phone] Packed Cells TRANSFUSED PRODU <SEE NOTE> 3 CBC With Differential 05/10/2021 [place] [address] [phone] White Blood Count 5.2 10 Normal 4.0-10.0 [...] 36.0-66.0 Lymph % 4.8 % Low 24.0-44.0 Adair % 8.7 % High 2.0-8.0 Eos % 1.2 % Normal 0.0-3.0 Baso % 0.4 % Normal 0.0-1.0 Immature Granulocyte % 0.6 % Normal 0-3.0 Nucleated Red Blood Cell % 0.0 % Normal 0-0 Neutrophils # 4.4 10 Normal 1.5-8.5 Lymph # 0.3 10 Low 1.5-5.0 Adair # 0.5 10 Normal 0.0-0.8 Eos # 0.1 10 Normal 0.0-0.5 Baso # 0.0 10 Normal 0.0-0.2 CBC With Differential 05/08/2021 [place] [address] [phone] White Blood Count 4.8 10 Normal 4.0-10.0 [...] 36.0-66.0 Lymph % 5.2 % Low 24.0-44.0 Adair % 11.2 % High 2.0-8.0 Eos % 1.4 % Normal 0.0-3.0 Baso % 0.4 % Normal 0.0-1.0 Immature Granulocyte % 0.4 % Normal 0-3.0 Nucleated Red Blood Cell % 0.0 % Normal 0-0 Neutrophils # 3.9 10 Normal 1.5-8.5 Lymph # 0.3 10 Low 1.5-5.0 Adair # 0.5 10 Normal 0.0-0.8 Eos # 0.1 10 Normal 0.0-0.5 Baso # 0.0 10 Normal 0.0-0.2 Type & Screen -Incl Blood Type,Tye,AB SC 05/08/2021 [place] [address] [phone] Blood Type O POSITIVE Normal AB Screen (Indirect Farooq)Vis NEGATIVE Normal Laboratory test finding 05/08/2021 [place] [address] [phone] Packed Cells TRANSFUSED PRODU <SEE NOTE> 4 Occult Blood 05/08/2021 Patient Service [place] [address] [phone] Occult Blood OCCULT BLOOD 1 <SEE NOTE> Abnormal 5 Laboratory test finding 05/05/2021 [place] [address] [phone] Packed Cells TRANSFUSED PRODU <SEE NOTE> 6 Type & Screen -Incl Blood Type,Tye,AB SC 05/05/2021 Patient Service [place] [id number] [phone] Blood Type O POSITIVE Normal AB Screen (Indirect Farooq)Vis NEGATIVE Normal CBC With Differential 05/05/2021 [place] [address] [phone] White Blood Count 5.1 10 Normal 4.0-10.0 [...] 36.0-66.0 Lymph % 6.3 % Low 24.0-44.0 Adair % 11.5 % High 2.0-8.0 Eos % 0.8 % Normal 0.0-3.0 Baso % 0.4 % Normal 0.0-1.0 Immature Granulocyte % 0.6 % Normal 0-3.0 Nucleated Red Blood Cell % 0.0 % Normal 0-0 Neutrophils # 4.1 10 Normal 1.5-8.5 Lymph # 0.3 10 Low 1.5-5.0 Adair # 0.6 10 Normal 0.0-0.8 Eos # 0.0 10 Normal 0.0-0.5 Baso # 0.0 10 Normal 0.0-0.2 Factor VIII Panel 05/05/2021 [place] [address] [phone] F8 Activity For F8 Panel 214 % High 56-140 7 F8 Antigen For F8 Panel 115 % Normal 50-200 8 F8 Activity vWB For F8 Panel 71 % Normal 50-200 Interpretation: Note Normal . 9 Platelet Function Analysis 05/05/2021 [place] [address] [phone] Collagen Epinephrine TNP seconds Normal 74-162 10 Laboratory test finding 05/05/2021 [place] [address] [phone] Partial Thromboplastin Time 24.9 seconds Low 25 .9-37.0 Prothrombin Time/Inr 05/05/2021 [place] [address] [phone] Prothrombin Time 14.0 seconds Normal 12.7-14.5 Inr 1.04 Normal 11 Retic (Reticulocyte Count) 05/05/2021 [place] [address] [phone] Reticulocyte % 5.9 % High 0.5-1.5 Reticulocyte # 119.8 10 High 17-77 Retic Hemoglobin Equivalent 30.7 pg Normal 24-36 Laboratory test finding 05/05/2021 [place] [address] [phone] LDH Lactate Dehydrogenase 128 U/L Normal 84-246 Haptoglobin 214 mg/dL Normal 41-333 12 CBC With Differential 04/27/2021 [place] [address] [phone] White Blood Count 4.2 10 Normal 4.0-10.0 [...] 36.0-66.0 Lymph % 8.1 % Low 24.0-44.0 Adair % 12.8 % High 2.0-8.0 Eos % 1.0 % Normal 0.0-3.0 Baso % 0.2 % Normal 0.0-1.0 Immature Granulocyte % 0.5 % Normal 0-3.0 Nucleated Red Blood Cell % 0.0 % Normal 0-0 Neutrophils # 3.3 10 Normal 1.5-8.5 Lymph # 0.3 10 Low 1.5-5.0 [place]air # 0.5 10 Normal 0.0-0.8 Eos # 0.0 10 Normal 0.0-0.5 Baso # 0.0 10 Normal 0.0-0.2 CBC With Differential 04/20/2021 [place] [address] [phone] White Blood Count 3.9 10 Low 4.0-10.0 [...] 36.0-66.0 Lymph % 8.8 % Low 24.0-44.0 Adair % 11.9 % High 2.0-8.0 Eos % 1.0 % Normal 0.0-3.0 Baso % 0.5 % Normal 0.0-1.0 Immature Granulocyte % 0.8 % Normal 0-3.0 Nucleated Red Blood Cell % 0.0 % Normal 0-0 Neutrophils # 3.0 10 Normal 1.5-8.5 Lymph # 0.3 10 Low 1.5-5.0 Adair # 0.5 10 Normal 0.0-0.8 Eos # 0.0 10 Normal 0.0-0.5 Baso # 0.0 10 Normal 0.0-0.2 CBC With Differential 04/12/2021 Patient Service [place] [id number] [phone] White Blood Count 4.6 10 Normal 4.0-10.0 [...] 36.0-66.0 Lymph % 6.6 % Low 24.0-44.0 Adair % 9.4 % High 2.0-8.0 Eos % 0.9 % Normal 0.0-3.0 Baso % 0.2 % Normal 0.0-1.0 Immature Granulocyte % 0.4 % Normal 0-3.0 Nucleated Red Blood Cell % 0.0 % Normal 0-0 Neutrophils # 3.8 10 Normal 1.5-8.5 Lymph # 0.3 10 Low 1.5-5.0 Adair # 0.4 10 Normal 0.0-0.8 Eos # 0.0 10 Normal 0.0-0.5 Baso # 0.0 10 Normal 0.0-0.2 Coronavirus 2019 Nasopharygeal 04/10/2021 [place] [address] [phone] Coronavirus 2019 Nasopharygeal ASSAY INFORMATIO <SEE N OTE> 13 CBC With Differential 04/07/2021 [place] [id number] [phone] White Blood Count 3.4 10 Low 4.0-10.0 [...] 36.0-66.0 Lymph % 8.5 % Low 24.0-44.0 Adair % 10.9 % High 2.0-8.0 Eos % 0.9 % Normal 0.0-3.0 Baso % 0.6 % Normal 0.0-1.0 Immature Granulocyte % 0.6 % Normal 0-3.0 Nucleated Red Blood Cell % 0.0 % Normal 0-0 Neutrophils # 2.7 10 Normal 1.5-8.5 Lymph # 0.3 10 Low 1.5-5.0 Adair # 0.4 10 Normal 0.0-0.8 Eos # 0.0 10 Normal 0.0-0.5 Baso # 0.0 10 Normal 0.0-0.2 Type & Screen -Incl Blood Type,Tye,AB SC 04/07/2021 [place] [address] [phone] Blood Type O POSITIVE Normal AB Screen (Indirect Farooq)Vis NEGATIVE Normal Laboratory test finding 04/07/2021 [place] [address] [phone] Packed Cells TRANSFUSED PRODU <SEE NOTE> 14 Laboratory test finding 04/07/2021 [place] [address] [phone] Carcinoembryonic Antigen < 0.5 NG/ML Normal <2.5 15 Ferritin 66 NG/ML Normal 8-252 Total Iron Binding Capacit 04/07/2021 [place] [address] [phone] Iron (Fe) 48 g/dL Low 50-170 Total Iron Binding Capacity 353 g/dL Normal 250-450 Percent Saturation 13.6 % Normal 13.2-45.0 Comprehensive Metabolic Profil 04/07/2021 [place] [address] [phone] Glucose, Fasting 184 mg/dL High 70-100 Blood [...] Comprehensive Metabolic Profil 03/24/2021 [place] [address] [phone] Glucose, Fasting 96 mg/dL Normal 70-100 Blood [...] A/B RSV Covid Amp 03/24/2021 [place] [address] [phone] Influenza A Amplification NEGATIVE Normal Negati ve 18 Influenza B Amplification NEGATIVE Normal Negative 19 RSV Amplification NEGATIVE Normal Negative 20 Sars Covid-19 Amplification NEGATIVE Normal Negative 21 Laboratory test finding 03/24/2021 [place] [address] [phone] Packed Cells TRANSFUSED PRODU <SEE NOTE> 22 CBC With Differential 03/24/2021 [place] [address] [phone] White Blood Count 4.6 10 Normal 4.0-10.0 [...] 36.0-66.0 Lymph % 6.2 % Low 24.0-44.0 Adair % 11.4 % High 2.0-8.0 Eos % 0.4 % Normal 0.0-3.0 Baso % 0.4 % Normal 0.0-1.0 Immature Granulocyte % 0.4 % Normal 0-3.0 Nucleated Red Blood Cell % 0.7 % High 0-0 Neutrophils # 3.7 10 Normal 1.5-8.5 Lymph # 0.3 10 Low 1.5-5.0 Adair # 0.5 10 Normal 0.0-0.8 Eos # 0.0 10 Normal 0.0-0.5 Baso # 0.0 10 Normal 0.0-0.2 Metabolic Panel (14), Comprehensive 03/17/2021 [facility] [address] [place], [place] [address]77[address] [phone] Calcium 9.5 mg/dL 8.7-10.3 Glucose 81 mg/dL [...] IU/L 0-32 Lipid Panel 03/17/2021 [facility] [address] [place] [address] [phone] Cholesterol, Total 123 mg/dL 100-199 Triglycerides 141 mg/dL 0-149 HDL Cholesterol 37 mg/dL Low >39 VLDL Cholesterol Mark 25 mg/dL 5-40 LDL Chol Calc ([facility]) 61 mg/dL 0-99 Comment: TNP Hemoglobin A1c 03/17/[address] [facility] [address] [place] [address] [phone] Hemoglobin A1c 4.8 % 4.8-5.6 25 Albumin/Creatinine Ratio, Random Urine 03/17/2021 [facility] [address] [place] [phone] Creatinine, Urine 120.2 mg/dL Not Estab. Albumin, Urine 20.1 ug/mL Not Estab. Alb/Creat Ratio 17 mg/gcreat 0-29 26 Laboratory test finding 03/14/2021 [place] [address] [phone] Packed Cells TRANSFUSED PRODU <SEE NOTE> 27 Type & Screen -Incl Blood Type,Tye,AB SC 03/14/2021 [place] [address] [phone] Blood Type O POSITIVE Normal AB Screen (Indirect Farooq)Vis NEGATIVE Normal CBC With Differential 03/14/2021 [place] [address] [phone] White Blood Count 4.0 10 Normal 4.0-10.0 [...] 36.0-66.0 Lymph % 6.8 % Low 24.0-44.0 Adair % 9.3 % High 2.0-8.0 Eos % 1.0 % Normal 0.0-3.0 Baso % 0.8 % Normal 0.0-1.0 Immature Granulocyte % 0.3 % Normal 0-3.0 Nucleated Red Blood Cell % 0.0 % Normal 0-0 Neutrophils # 3.3 10 Normal 1.5-8.5 Lymph # 0.3 10 Low 1.5-5.0 Adair # 0.4 10 Normal 0.0-0.8 Eos # 0.0 10 Normal 0.0-0.5 Baso # 0.0 10 Normal 0.0-0.2 CBC With Differential 03/10/2021 [place] [address] [phone] White Blood Count 3.4 10 Low 4.0-10.0 [...] 36.0-66.0 Lymph % 7.6 % Low 24.0-44.0 Adair % 12.9 % High 2.0-8.0 Eos % 1.2 % Normal 0.0-3.0 Baso % 0.6 % Normal 0.0-1.0 Immature Granulocyte % 0.3 % Normal 0-3.0 Nucleated Red Blood Cell % 0.0 % Normal 0-0 Neutrophils # 2.6 10 Normal 1.5-8.5 Lymph # 0.3 10 Low 1.5-5.0 Adair # 0.4 10 Normal 0.0-0.8 Eos # 0.0 10 Normal 0.0-0.5 Baso # 0.0 10 Normal 0.0-0.2 Laboratory test finding 03/10/2021 Patient Service [place] 1603795 [phone] Carcinoembryonic Antigen < 0.5 NG/ML Normal <2.5 28 Ferritin 492 NG/ML High 8-252 Comprehensive Metabolic Profil 03/10/2021 Patient S ervice [place] 1603737 [phone] Glucose, Fasting 166 mg/dL High 70-100 Blood [...] Iron Binding Capacit 03/10/2021 [place] [address] [phone] Iron (Fe) 72 g/dL Normal 50-170 Total Iron Binding Capacity 352 g/dL Normal 250-450 Percent Saturation 20.5 % Normal 13.2-45.0 Laboratory test finding 02/28/2021 [place] [address] [phone] Packed Cells TRANSFUSED PRODU <SEE NOTE> 30 Type & Screen -Incl Blood Type,Tye,AB SC 02/28/2021 [place] [address] [phone] Blood Type O POSITIVE Normal AB Screen (Indirect Farooq)Vis NEGATIVE Normal Laboratory test finding 02/27/2021 Patient Service [place] 1603721 [phone] Blood Urea Nitrogen 26 mg/dL High 7-18 Creatinine With GFR 02/27/2021 [place] [address] [phone] Creatinine For GFR 0.76 mg/dL Normal 0.55-1.30 Glomerular Filtration Rate > 60.0 Normal >32 3 1 Total Iron Binding Capacit 02/27/2021 [place] [address] [phone] Iron (Fe) 79 g/dL Normal 50-170 Total Iron Binding Capacity 384 g/dL Normal 250-450 Percent Saturation 20.6 % Normal 13.2-45.0 Laboratory test finding 02/27/2021 [place] [address] [phone] Ferritin 1039 NG/ML High 8-252 CBC With Differential 02/27/2021 [place] [address] [phone] White Blood Count 6.0 10 Normal 4.0-10.0 [...] 36.0-66.0 Lymph % 4.7 % Low 24.0-44.0 Adair % 11.6 % High 2.0-8.0 Eos % 0.5 % Normal 0.0-3.0 Baso % 0.3 % Normal 0.0-1.0 Immature Granulocyte % 0.8 % Normal 0-3.0 Nucleated Red Blood Cell % 0.3 % High 0-0 Neutrophils # 4.9 10 Normal 1.5-8.5 Lymph # 0.3 10 Low 1.5-5.0 Adair # 0.7 10 Normal 0.0-0.8 Eos # 0.0 10 Normal 0.0-0.5 Baso # 0.0 10 Normal 0.0-0.2 Laboratory test finding 02/10/2021 [place] [address] [phone] Packed Cells TRANSFUSED PRODU <SEE NOTE> 32 Type & Screen -Incl Blood Type,Tye,AB SC 02/10/2021 [place] [address] [phone] Blood Type O POSITIVE Normal AB Screen (Indirect Farooq)Vis NEGATIVE Normal CBC With Differential 02/09/2021 [place] [address] [phone] White Blood Count 3.9 10 Low 4.0-10.0 [...] 36.0-66.0 Lymph % 7.2 % Low 24.0-44.0 Adair % 10.0 % High 2.0-8.0 Eos % 1.0 % Normal 0.0-3.0 Baso % 0.5 % Normal 0.0-1.0 Immature Granulocyte % 0.5 % Normal 0-3.0 Nucleated Red Blood Cell % 0.0 % Normal 0-0 Neutrophils # 3.1 10 Normal 1.5-8.5 Lymph # 0.3 10 Low 1.5-5.0 Adair # 0.4 10 Normal 0.0-0.8 Eos # 0.0 10 Normal 0.0-0.5 Baso # 0.0 10 Normal 0.0-0.2 CBC With Differential 01/27/2021 Patient Service Ce [place] 7653201 [phone] White Blood Count 4.2 10 Normal 4.0-10.0 [...] 36.0-66.0 Lymph % 13.6 % Low 24.0-44.0 Adair % 14.6 % High 2.0-8.0 Eos % 1.4 % Normal 0.0-3.0 Baso % 0.5 % Normal 0.0-1.0 Immature Granulocyte % 0.5 % Normal 0-3.0 Nucleated Red Blood Cell % 0.0 % Normal 0-0 Neutrophils # 2.9 10 Normal 1.5-8.5 Lymph # 0.6 10 Low 1.5-5.0 Adair # 0.6 10 Normal 0.0-0.8 Eos # 0.1 10 Normal 0.0-0.5 Baso # 0.0 10 Normal 0.0-0.2 Comprehensive Metabolic Profil 01/27/2021 [place] [address] [phone] Glucose, Fasting 59 mg/dL Low 70-100 Blood Urea Nitrogen 25 mg/dL High 7-18 Creatinine For GFR 0.71 mg/dL Normal 0.55-1.30 Glomerular Filtration Rate > 60.0 Normal >32 3 3 Sodium Level 141 mEq/L Normal 136-145 [...] Binding Capacit 01/27/2021 [place] [address] [phone] Iron (Fe) 59 g/dL Normal 50-170 Total Iron Binding Capacity 397 g/dL Normal 250-450 Percent Saturation 14.9 % Normal 13.2-45.0 Laboratory test finding 01/27/2021 [place] [address] [phone] Ferritin 39 NG/ML Normal 8-252 Carcinoembryonic Antigen 0.5 NG/ML Normal <2.5 34 Type & Screen -Incl Blood Type,Tye,AB SC 01/20/2021 [place] [address] [phone] Blood Type O POSITIVE Normal AB Screen (Indirect Farooq)Vis NEGATIVE Normal Laboratory test finding 01/20/2021 Patient Service [place] 1603725 [phone] Blood Urea Nitrogen 21 mg/dL High 7-18 Complete Blood Count 01/20/2021 [place] [address] [phone] White Blood Count 3.3 10 Low 4.0-10.0 [...] Blood Cell % 0.0 % Normal 0-0 Creatinine With GFR 01/20/2021 [place] [address] [phone] Creatinine For GFR 0.69 mg/dL Normal 0.55-1.30 Glomerular Filtration Rate > 60.0 Normal >32 3 5 Coronavirus 2019 Nasopharygeal 01/16/2021 Patient S ervice Center [place] 7372712 [phone] Coronavirus 2019 Nasopharygeal ASSAY INFORMATIO <SEE N OTE> 36 Type & Screen -Incl Blood Type,Tye,AB SC 01/03/2021 [place] [address] [phone] Blood Type O POSITIVE Normal AB Screen (Indirect Farooq)Vis NEGATIVE Normal Laboratory test finding 01/03/2021 [place] [address] [phone] Packed Cells TRANSFUSED PRODU <SEE NOTE> 37 CBC With Differential 01/02/2021 Patient Service Ce nter [place] 7372740 [phone] White Blood Count 4.3 10 Normal 4.0-10.0 [...] 36.0-66.0 Lymph % 10.7 % Low 24.0-44.0 Adair % 13.1 % High 2.0-8.0 Eos % 0.7 % Normal 0.0-3.0 Baso % 0.5 % Normal 0.0-1.0 Immature Granulocyte % 0.5 % Normal 0-3.0 Nucleated Red Blood Cell % 0.0 % Normal 0-0 Neutrophils # 3.2 10 Normal 1.5-8.5 Lymph # 0.5 10 Low 1.5-5.0 Adair # 0.6 10 Normal 0.0-0.8 Eos # 0.0 10 Normal 0.0-0.5 Baso # 0.0 10 Normal 0.0-0.2 Comprehensive Metabolic Profil 01/02/2021 [place] [address] [phone] Glucose, Fasting 155 mg/dL High 70-100 Blood Urea Nitrogen 24 mg/dL High 7-18 Creatinine For GFR 0.85 mg/dL Normal 0.55-1.30 Glomerular Filtration Rate > 60.0 Normal >32 3 8 Sodium Level 137 mEq/L Normal 136-145 Potassium [...] Total Iron Binding Capacit 01/02/2021 [place] [address] [phone] Iron (Fe) 55 g/dL Normal 50-170 Total Iron Binding Capacity 398 g/dL Normal 250-450 Percent Saturation 13.8 % Normal 13.2-45.0 Laboratory test finding 01/02/2021 [place] [address] [phone] Thyroid Stimulating Hormone 1.660 uIU/ML Normal 0. 358-3.740 Free T4 0.87 ng/dL Normal 0.76-1.46 Ferritin 58 NG/ML Normal 8-252 Istat Chem8+ Panel 12/23/2020 [place] [address] [phone] iSTAT HCT 33.0 % Low 38.0-51.0 iSTAT Glucose 94 mg/dL Normal 70-105 iSTAT Sodium 138 mEq/L Normal 136-145 iSTAT Potassium 4.2 mEq/L Normal 3.5-5.1 iSTAT CA++ 5.0 mg/dL Normal 4.5-5.3 iSTAT Chloride 102 mEq/L Normal 98-109 iSTAT Co2 27.0 MM/L Normal 23.0-27.0 iSTAT BUN 20 mg/dL Normal 8-26 iSTAT Creatinine 0.7 mg/dL Normal 0.6-1.3 Laboratory test finding 12/23/2020 [place] [address] [phone] Lipase 73 U/L Normal 73-393 Lactic Acid Sepsis Protocol 0.8 mmol/L Normal 0.4-2.0 39 Liver Profile 12/23/2020 [place] [address] [phone] Ast/Sgot 13 U/L Normal 7-37 Alt/SGPT 14 U/L Normal 12-78 Alkaline Phosphatase 95 U/L Normal 45-117 Bilirubin,Total 0.9 mg/dL Normal 0.2-1.0 Bilirubin,Direct 0.3 mg/dL High 0.0-0.2 Total Protein 6.5 GM/DL Normal 6.4-8.2 Albumin 3.4 GM/DL Normal 3.2-5.2 Albumin/Globulin Ratio 1.1 Low 1.2-2.2 PT & Aptt 12/23/2020 [place] [address] [phone] Prothrombin Time 13.3 seconds Normal 12.5-14.3 Inr 0.99 Normal 40 Partial Thromboplastin Time 29.5 seconds Normal 24.2-38.5 CBC With Differential 12/23/2020 [place] [address] [phone] White Blood Count 4.5 10 Normal 4.0-10.0 [...] 36.0-66.0 Lymph % 9.7 % Low 24.0-44.0 Adair % 11.9 % High 2.0-8.0 Eos % 0.9 % Normal 0.0-3.0 Baso % 0.4 % Normal 0.0-1.0 Immature Granulocyte % 0.4 % Normal 0-3.0 Nucleated Red Blood Cell % 0.0 % Normal 0-0 Neutrophils # 3.5 10 Normal 1.5-8.5 Lymph # 0.4 10 Low 1.5-5.0 Adair # 0.5 10 Normal 0.0-0.8 Eos # 0.0 10 Normal 0.0-0.5 Baso # 0.0 10 Normal 0.0-0.2 Laboratory test finding 12/23/2020 [place] [address] [phone] iSTAT Troponin 0.01 NG/ML Normal 0.00-0.08 CBC With Differential 12/19/2020 [place] [address] [phone] White Blood Count 3.8 10 Low 4.0-10.0 [...] 36.0-66.0 Lymph % 11.7 % Low 24.0-44.0 [place]air % 11.9 % High 2.0-8.0 Eos % 1.1 % Normal 0.0-3.0 Baso % 0.3 % Normal 0.0-1.0 Immature Granulocyte % 0.5 % Normal 0-3.0 Nucleated Red Blood Cell % 0.0 % Normal 0-0 Neutrophils # 2.8 10 Normal 1.5-8.5 Lymph # 0.4 10 Low 1.5-5.0 Adair # 0.5 10 Normal 0.0-0.8 Eos # 0.0 10 Normal 0.0-0.5 Baso # 0.0 10 Normal 0.0-0.2 CBC With Differential 12/05/2020 [place] [address] [phone] White Blood Count 3.4 10 Low 4.0-10.0 [...] 36.0-66.0 Lymph % 12.8 % Low 24.0-44.0 Adair % 13.7 % High 2.0-8.0 Eos % 1.2 % Normal 0.0-3.0 Baso % 0.6 % Normal 0.0-1.0 Immature Granulocyte % 0.3 % Normal 0-3.0 Nucleated Red Blood Cell % 0.0 % Normal 0-0 Neutrophils # 2.4 10 Normal 1.5-8.5 Lymph # 0.4 10 Low 1.5-5.0 Adair # 0.5 10 Normal 0.0-0.8 Eos # 0.0 10 Normal 0.0-0.5 Baso # 0.0 10 Normal 0.0-0.2 PT & Aptt 12/05/2020 [place] [address] [phone] Prothrombin Time 13.3 seconds Normal 12.5-14.3 Inr 0.99 Normal 41 Partial Thromboplastin Time 29.4 seconds Normal 24.2-38.5 Total Iron Binding Capacit 12/05/2020 [place] [address] [phone] Iron (Fe) 94 g/dL Normal 50-170 Total Iron Binding Capacity 350 g/dL Normal 250-450 Percent Saturation 26.9 % Normal 13.2-45.0 Laboratory test finding 12/05/2020 [place] [address] [phone] Ferritin 108 NG/ML Normal 8-252 1 TRANSFUSED PRODUCT: PACKED C ELLS COUNT: 2 2 TRANSFUSED PRODUCT: PACKED C ELLS COUNT: 3 3 TRANSFUSED PRODUCT: PACKED C ELLS COUNT: 2 4 TRANSFUSED PRODUCT: PACKED C ELLS COUNT: 1 5 OCCULT BLOOD 1 POSITIVE 6 TRANSFUSED PRODUCT: PACKED C ELLS COUNT: 2 7 FVIII activity can increase in a variety [...] been elucidated (Br J Haematol. 2012; 157:653-663). 8 This test was developed and its performance characteristics determined by [employer]. It has not been cleared or approved by the Food and Drug Administration. 9 --- COAGULATION: [place] FACTOR ASSESSMENT CURRENT [...] cofactor activity; FVIII - factor VIII activity. BUCKLE GLUER: For questions regarding panel interpretation, please contact Mikal Wasserman M.D. at [employer] [facility] at . DISCLAIMER These assessments and interpretations [...] The National Heart, Lung and Blood [place]. The Diagnosis, Evaluation and Management of von Willebrand Disease. Gipsy, MD: National Institutes of Health Publication 08-5832. 2007. Available at http://www.nhlbi.nih.gov/guidelines/vwd/. (2) Tayo MONTES et al. Am J Hematol. 2009; 84(6):366-370. (3) Pam M et al. Haemophilia. 2004;10(3):199-217. (4) Lety WOODRUFF et al. Haemophilia. 2004; 10(3):218-231. 10 UNABLE TO PERFORM TEST DUE T O hct <35% 11 THERAPUTIC HUMAN INR VALUES INDICATIONS NORMAL RANGES PROPHYLAXIS/TREATMENT OF: VENOUS THROMBOSIS 2.0-3.0 PULMONARY EMBOLISM 2.0-3.0 PREVENTION OF SYSTEMIC EMBOLISM FROM: TISSUE HEART VALVES 2.0-3.0 ACUTE MYOCARDIAL INFARCTION 2.0-3.0 VALVULAR HEART DISEASE 2.0-3.0 ATRIAL FIBRILLATION 2.0-3.0 MECHANICAL VALVES(HIGH RISK) 2.5-3.5 RECURRENT MYOCARDIAL INFARCTION 2.5-3.5 12 Performed at: [facility] [address] [id number] Fiberglass Laminator: Matt Mcdonnell MD, Phone: [phone] Performed at: [facility] [address] [place] [address] [address] [place], [place] [id number] Fiberglass Laminator: Gary Youngblood MD, Phone: [phone] Performed at: [facility] [address] [id number] Fiberglass Laminator: Teresa Nguyen MD, Phone: [phone] ASSAY INFORMATION: Real Time RT-PCR or TMA. Both RT-PCR and TMA are nucleic acid amplification tests (NAAT) which are molecular testing modalities and recommended by the CDC for passenger travel. Testing and International Air Travel, cdc.gov/coronavirus/2019-ncov/travelers/ckrphev-hnx-waytdu.html 09/01/2020 NOTE: The COVID-19 assay is under Emergency Use Authorization (EUA) by the U.S. Food and Drug Administration. [facility] and [facility] are designated as high complexity laboratories by the Clinical Laboratory Improvement Amendments of 1988 (CLIA) and are qualified to perform this test. Not Detected 14 TRANSFUSED PRODUCT: PACKED C ELLS COUNT: 3 15 THE CEA ASSAY IS PERFORMED O N THE [employer] BY CHEMILUMINESCENCE AND SHOULD NOT BE COMPARED INTERCHANGEABLY WITH OTHER METHODS. IT SHOULD NOT BE USED ALONE A SCREENING TEST OR DIAGNOSIS FOR THE PRESENCE OR ABSENCE OF MALIGNANT DISEASE. PREDICTIONS OF DISEASE RECURRENCE SHOULD NOT BE BASED SOLELY ON VALUES OBTAINED FROM SERIAL PATIENT SERUM VALUES. 16 Units are mL/min/1.73 m2 Chronic Kidney Disease Staging per NKF: Stage I & II GFR >=60 Normal to Mildly Decreased Stage III GFR 30-59 Moderately Decreased Stage IV GFR 15-29 Severely Decreased Stage V GFR <15 Very Little GFR Left ESRD GFR <15 on DESIGNER/WRITER 17 Units are mL/min/1.73 m2 Chronic Kidney Disease Staging per NKF: Stage I & II GFR >=60 Normal to Mildly Decreased Stage III GFR 30-59 Moderately Decreased Stage IV GFR 15-29 Severely Decreased Stage V GFR <15 Very Little GFR Left ESRD GFR <15 on DESIGNER/WRITER 18 Negative results do not prec lude influenza or RSV virus infection and should not be used as the sole basis for treatment or other patient management decisions. 19 Negative results do not prec lude influenza or RSV virus infection and should not be used as the sole basis for treatment or other patient management decisions. 20 Negative results do not prec lude influenza or RSV virus infection and should not be used as the sole basis for treatment or other patient management decisions. 21 A false negative result may occur if [...] pathogens. DISCLAIMER: Testing was performed using the [employer] SARS-CoV-2 test. This test was developed and its performance characteristics determined by [employer]. This test has not been FDA [...] the authorization is terminated or revoked sooner. 22 TRANSFUSED PRODUCT: PACKED C ELLS COUNT: 1 23 [facility] currently reports eGFR in compliance [...] 44 - 121 44 - 121 25 Prediabetes: 5.7 - 6.4 Diabetes: >6.4 Glycemic control for adults with diabetes: <7.0 26 Normal: 0 - 29 Moderately increased: 30 - 300 Severely increased: >300 27 TRANSFUSED PRODUCT: PACKED C ELLS COUNT: 2 28 THE CEA ASSAY IS PERFORMED O N THE [employer] BY CHEMILUMINESCENCE AND SHOULD NOT BE COMPARED INTERCHANGEABLY WITH OTHER METHODS. IT SHOULD NOT BE USED ALONE A SCREENING TEST OR DIAGNOSIS FOR THE PRESENCE OR ABSENCE OF MALIGNANT DISEASE. PREDICTIONS OF DISEASE RECURRENCE SHOULD NOT BE BASED SOLELY ON VALUES OBTAINED FROM SERIAL PATIENT SERUM VALUES. 29 Units are mL/min/1.73 m2 Chronic Kidney Disease Staging per NKF: Stage I & II GFR >=60 Normal to Mildly Decreased Stage III GFR 30-59 Moderately Decreased Stage IV GFR 15-29 Severely Decreased Stage V GFR <15 Very Little GFR Left ESRD GFR <15 on DESIGNER/WRITER 30 TRANSFUSED PRODUCT: PACKED C ELLS COUNT: 2 31 Units are mL/min/1.73 m2 Chronic Kidney Disease Staging per NKF: Stage I & II GFR >=60 Normal to Mildly Decreased Stage III GFR 30-59 Moderately Decreased Stage IV GFR 15-29 Severely Decreased Stage V GFR <15 Very Little GFR Left ESRD GFR <15 on DESIGNER/WRITER 32 TRANSFUSED PRODUCT: PACKED C ELLS COUNT: 2 33 Units are mL/min/1.73 m2 Chronic Kidney Disease Staging per NKF: Stage I & II GFR >=60 Normal to Mildly Decreased Stage III GFR 30-59 Moderately Decreased Stage IV GFR 15-29 Severely Decreased Stage V GFR <15 Very Little GFR Left ESRD GFR <15 on DESIGNER/WRITER 34 THE CEA ASSAY IS PERFORMED O [...] Little GFR Left ESRD GFR <15 on DESIGNER/WRITER 36 ASSAY INFORMATION: Real Time RT-PCR NOTE: The COVID-19 assay has been cleared by the U.S. Food and Drug Administration under the Emergency Use Authorization (EUA). [facility] and [facility] are designated as high complexity laboratories by the Clinical Laboratory Improvement Amendments of 1988(CLIA) and are qualified to perform this test. Not Detected 37 TRANSFUSED PRODUCT: PACKED C ELLS COUNT: 1 38 Units are mL/min/1.73 m2 Chronic Kidney Disease Staging per NKF: Stage I & II GFR >=60 Normal to Mildly Decreased Stage III GFR 30-59 Moderately Decreased Stage IV GFR 15-29 Severely Decreased Stage V GFR <15 Very Little GFR Left ESRD GFR <15 on DESIGNER/WRITER 39 Y/N query for Sepsis Lactate Rule: Y 40 THERAPUTIC HUMAN INR VALUES INDICATIONS NORMAL RANGES PROPHYLAXIS/TREATMENT OF: VENOUS THROMBOSIS 2.0-3.0 PULMONARY EMBOLISM 2.0-3.0 PREVENTION OF SYSTEMIC EMBOLISM FROM: TISSUE HEART VALVES 2.0-3.0 ACUTE MYOCARDIAL INFARCTION 2.0-3.0 VALVULAR HEART DISEASE 2.0-3.0 ATRIAL FIBRILLATION 2.0-3.0 MECHANICAL VALVES(HIGH RISK) 2.5-3.5 RECURRENT MYOCARDIAL INFARCTION 2.5-3.5 41 THERAPUTIC HUMAN INR VALUES INDICATIONS NORMAL RANGES PROPHYLAXIS/TREATMENT OF: VENOUS THROMBOSIS 2.0-3.0 PULMONARY EMBOLISM 2.0-3.0 PREVENTION OF SYSTEMIC EMBOLISM FROM: TISSUE HEART VALVES 2.0-3.0 ACUTE MYOCARDIAL INFARCTION 2.0-3.0 VALVULAR HEART DISEASE 2.0-3.0 ATRIAL FIBRILLATION 2.0-3.0 MECHANICAL VALVES(HIGH RISK) 2.5-3.5 RECURRENT MYOCARDIAL INFARCTION 2.5-3.5 Procedures Date Code Description Status 03/28/2021 [id number] W/I 7 Days Of DC, Comm W/I 2 Dys Completed 03/23/2021 [id number] Office/Outpatient Established Mo d MDM 30-39 Min Completed 03/23/2021 [id number] Diabetic Foot Exam Completed 01/25/2021 [id number] [place] [address] W/I 7 Days Of DC, Comm W/I 2 Dys Completed 12/27/2020 [id number] Office/Outpatient Established Mo d MDM 30-39 Min Completed 12/19/2020 [id number] Office/Outpatient Established Mo d MDM 30-39 Min Completed Medical Devices Description No Information Available Encounters Type Date Location Provider Dx Diagnosis Office Visit 03/28/2021 11:45a Main Office Nadiya Bryan FNP D64.9 Anemia, unspecified K29.61 Other gastritis with bleedin g Office Visit 03/23/2021 3:45p Main Office Nadiya Bryan FRONT OFFICE MANAGER E11.6 9 Type 2 diabetes mellitus with other specified complication C18.9 Malignant neoplasm of colon, unspecified 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 E78.2 Mixed hyperlipidemia I10 Essential (primary) hyperten yara I48.91 Unspecified atrial fibrillat ion D64.9 Anemia, unspecified Office Visit 01/25/2021 2:15p Main Office Nadiya Bryan FRONT OFFICE MANAGER D64.9 Anemia, unspecified K29.61 Other gastritis with bleedin g Office Visit 12/27/2020 3:45p Main Office Anitha Gamez M.D. 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 D64.9 Anemia, unspecified Office Visit 12/19/2020 2:15p Main Office Nadiya Bryan FRONT OFFICE MANAGER E11.6 9 Type 2 diabetes mellitus with other specified complication E78.2 Mixed hyperlipidemia I10 Essential (primary) hyperten yara 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 C18.9 Malignant neoplasm of colon, unspecified I48.91 Unspecified atrial fibrillat ion Assessments Date Code Description Provider 03/28/2021 D64.9 Anemia, unspecified Deejay Bryan FRONT OFFICE MANAGER 03/28/2021 K29.61 Other gastritis with bleeding Pl Nadiya hogan FNP 03/23/2021 E11.69 Type 2 diabetes mellitus with ot her specified complication Nadiya Bryan FRONT OFFICE MANAGER 03/23/2021 C18.9 Malignant neoplasm of colon, uns pecified Randi Nadiya, FRONT OFFICE MANAGER 03/23/2021 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 PleNadiya tracey , FRONT OFFICE MANAGER 03/23/2021 E78.2 Mixed hyperlipidemia PleChayo tracey, FRONT OFFICE MANAGER 03/23/2021 I10 Essential (primary) hypertension PleSteve traceyy, FRONT OFFICE MANAGER 03/23/2021 I48.91 Unspecified atrial fibrillation Steve Bryany, FRONT OFFICE MANAGER 03/23/2021 D64.9 Anemia, unspecified Pleskach, Mo lly, FRONT OFFICE MANAGER 01/25/2021 D64.9 Anemia, unspecified Pleskach, Mo lly, FRONT OFFICE MANAGER 01/25/2021 K29.61 Other gastritis with bleeding Pl Nadiya hogan, FRONT OFFICE MANAGER 12/27/2020 E11.69 Type 2 diabetes mellitus with ot her specified complication Anitha Gamez M.D. 12/27/2020 C18.9 Malignant neoplasm of colon, uns pecified Anitha Gamez M.D. 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 12/27/2020 D64.9 Anemia, unspecified Angela Gamez M.D. 12/19/2020 E11.69 Type 2 diabetes mellitus with ot her specified complication PlealexyStevey, FRONT OFFICE MANAGER 12/19/2020 E78.2 Mixed hyperlipidemia PleChayo tracey, FRONT OFFICE MANAGER 12/19/2020 I10 Essential (primary) hypertension Randi Nadiya, FRONT OFFICE MANAGER 12/19/2020 Z93.2 Ileostomy status Plealexy Nadiya , FRONT OFFICE MANAGER 12/19/2020 C18.9 Malignant neoplasm of colon, uns pecified Steve Bryany, FRONT OFFICE MANAGER 12/19/2020 I48.91 Unspecified atrial fibrillation Nadiya Bryan [...] Dr Reason for Referral Status Appt Date [facility] Nose [facility] Th[facility] nose bleed. Sent [phone] [facility], [address] [phone]
--- OUTSIDE RECORDS SUMMARY | 2021-06-19 13:39 | CCD | Continuity of Care Document ---
Author Author Meron BRYAN [employer]ERTY CLAIM REP Organization Unknown Address [address] [place] [address] Phone [phone] Care Team Providers Care Bank Reconciliator Name Role Phone [facility] AUTM [phone] Niels Decker M.D. AUTM [phone] [facility] AUTM Jeff Cramer AUTM [phone] Problems Active Problems Provider Date Type 2 [...] 236units C18.9 Nadiya Bryan FNP 06/16/2020 Z93.2 [place] Remover Wipes Misc use 3-4 wipes every 4 days and as needed when changing ostomy 2Box Z93.2 Nadiya Bryan FNP 06/16/2020 C18.9 Efren Adapt Ceraing change every 4-5 days and as needed ref #[id number] 20units Nadiya Bryan FNP 05/05/2020 Calera 2 Piece Ostomy Skin Barrier ref # [id number] márquez ge every 4-5 days and as needed 20units C18.9 Nadiya Bryan FNP 04/14/2020 Z93.2 Calera 2 Piece Drainable Ostomy Pouch ref # [id number] c hange every 4-5 days and as [...] CPT Code Status Date Vaccine Lot # [id number] Refused 04/17/2016 Pneumococcal Vaccine 07265 Refused 04/17/2016 Prevnar 13 99343 Refused 04/17/2016 Influenza Vaccination Vital Signs Date Vital Result Comment 03/28/2021 11:51am BP Systolic 113 mmHg BP Diastolic 83 mmHg Heart Rate 127 /min Body Temperature 98.0 F Respiratory Rate 18 /min Height 61.5 inches 5'1.50" Weight 114.38 lb O2 % BldC Oximetry 100 % [place] Body Weight 105 lb BMI (Body Mass Index) 21.3 kg/m2 03/23/2021 3:47pm BP Systolic 110 mmHg BP Diastolic 62 mmHg Heart Rate 64 /min Body Temperature 98.7 F Respiratory Rate 16 /min Height 61.5 inches 5'1.50" Weight 116.38 lb O2 % BldC Oximetry 99 % [place] Body Weight 105 lb BMI (Body Mass Index) 21.6 kg/m2 Results Test Acquired Date Facility Test Result H/L Range Note Type & Screen -Incl Blood Type,Tye,AB SC 05/31/2021 [place] [address] [phone] Blood Type O POSITIVE Normal AB Screen (Indirect Faroo[place])Vis NEGATIVE Normal CBC With Differential 05/31/2021 [place] [address] [phone] White Blood Count 4.9 10 Normal 4.0-10.0 [...] 36.0-66.0 Lymph % 6.5 % Low 24.0-44.0 [place] % 11.0 % High 2.0-8.0 Eos % 1.8 % Normal 0.0-3.0 Baso % 0.6 % Normal 0.0-1.0 Immature Granulocyte % 0.8 % Normal 0-3.0 Nucleated Red Blood Cell % 0.0 % Normal 0-0 Neutrophils # 3.9 10 Normal 1.5-8.5 Lymph # 0.3 10 Low 1.5-5.0 [place] # 0.5 10 Normal 0.0-0.8 Eos # 0.1 10 Normal 0.0-0.5 Baso # 0.0 10 Normal 0.0-0.2 Laboratory test finding 05/31/2021 [place] [address] [phone] Packed Cells TRANSFUSED PRODU <SEE NOTE> 1 CBC With Differential 05/24/2021 [place] [address] [phone] White Blood Count 5.2 10 Normal 4.0-10.0 [...] 36.0-66.0 Lymph % 4.2 % Low 24.0-44.0 [place] % 11.7 % High 2.0-8.0 Eos % 1.9 % Normal 0.0-3.0 Baso % 0.6 % Normal 0.0-1.0 Immature Granulocyte % 0.6 % Normal 0-3.0 Nucleated Red Blood Cell % 0.0 % Normal 0-0 Neutrophils # 4.2 10 Normal 1.5-8.5 Lymph # 0.2 10 Low 1.5-5.0 [place] # 0.6 10 Normal 0.0-0.8 Eos # 0.1 10 Normal 0.0-0.5 Baso # 0.0 10 Normal 0.0-0.2 Laboratory test finding 05/24/2021 [place] [address] [phone] Packed Cells TRANSFUSED PRODU <SEE NOTE> 2 Type & Screen -Incl Blood Type,Tye,AB SC 05/24/2021 [place] [address] [phone] Blood Type O POSITIVE Normal AB Screen (Indirect Farooq)Vis NEGATIVE Normal CBC With Differential 05/17/2021 [place] [address] [phone] White Blood Count 4.6 10 Normal 4.0-10.0 [...] 36.0-66.0 Lymph % 5.7 % Low 24.0-44.0 [place] % 11.3 % High 2.0-8.0 Eos % 1.7 % Normal 0.0-3.0 Baso % 0.4 % Normal 0.0-1.0 Immature Granulocyte % 0.4 % Normal 0-3.0 Nucleated Red Blood Cell % 0.0 % Normal 0-0 Neutrophils # 3.7 10 Normal 1.5-8.5 Lymph # 0.3 10 Low 1.5-5.0 [place] # 0.5 10 Normal 0.0-0.8 Eos # 0.1 10 Normal 0.0-0.5 Baso # 0.0 10 Normal 0.0-0.2 Type & Screen -Incl Blood Type,Tye,AB SC 05/17/2021 [place] [address] [phone] Blood Type O POSITIVE Normal AB Screen (Indirect Farooq)Vis NEGATIVE Normal Laboratory test finding 05/17/2021 [place] [address] [phone] Packed Cells TRANSFUSED PRODU <SEE NOTE> 3 CBC With Differential 05/10/2021 [place] [address] [phone] White Blood Count 5.2 10 Normal 4.0-10.0 [...] 36.0-66.0 Lymph % 4.8 % Low 24.0-44.0 [place] % 8.7 % High 2.0-8.0 Eos % 1.2 % Normal 0.0-3.0 Baso % 0.4 % Normal 0.0-1.0 Immature Granulocyte % 0.6 % Normal 0-3.0 Nucleated Red Blood Cell % 0.0 % Normal 0-0 Neutrophils # 4.4 10 Normal 1.5-8.5 Lymph # 0.3 10 Low 1.5-5.0 [place] # 0.5 10 Normal 0.0-0.8 Eos # 0.1 10 Normal 0.0-0.5 Baso # 0.0 10 Normal 0.0-0.2 CBC With Differential 05/08/2021 [place] [address] [phone] White Blood Count 4.8 10 Normal 4.0-10.0 [...] 36.0-66.0 Lymph % 5.2 % Low 24.0-44.0 [place] % 11.2 % High 2.0-8.0 Eos % 1.4 % Normal 0.0-3.0 Baso % 0.4 % Normal 0.0-1.0 Immature Granulocyte % 0.4 % Normal 0-3.0 Nucleated Red Blood Cell % 0.0 % Normal 0-0 Neutrophils # 3.9 10 Normal 1.5-8.5 Lymph # 0.3 10 Low 1.5-5.0 [place] # 0.5 10 Normal 0.0-0.8 Eos # 0.1 10 Normal 0.0-0.5 Baso # 0.0 10 Normal 0.0-0.2 Type & Screen -Incl Blood Type,Tye,AB SC 05/08/2021 [place] [address] [phone] Blood Type O POSITIVE Normal AB Screen (Indirect [place])Vis NEGATIVE Normal Laboratory test finding 05/08/2021 [place] [address] [phone] Packed Cells TRANSFUSED PRODU <SEE NOTE> 4 Occult Blood 05/08/2021 Patient Service [facility] [place] [address] [phone] Occult Blood OCCULT BLOOD 1 <SEE NOTE> Abnormal 5 Laboratory test finding 05/05/2021 [place] [address] [phone] Packed Cells TRANSFUSED PRODU <SEE NOTE> 6 Type & Screen -Incl Blood Type,Tye,AB SC 05/05/2021 Patient Service [place] [id number] [phone] Blood Type O POSITIVE Normal AB Screen (Indirect [place])Vis NEGATIVE Normal CBC With Differential 05/05/2021 [place] [address] [phone] White Blood Count 5.1 10 Normal 4.0-10.0 [...] 36.0-66.0 Lymph % 6.3 % Low 24.0-44.0 [place] % 11.5 % High 2.0-8.0 Eos % 0.8 % Normal 0.0-3.0 Baso % 0.4 % Normal 0.0-1.0 Immature Granulocyte % 0.6 % Normal 0-3.0 Nucleated Red Blood Cell % 0.0 % Normal 0-0 Neutrophils # 4.1 10 Normal 1.5-8.5 Lymph # 0.3 10 Low 1.5-5.0 [place] # 0.6 10 Normal 0.0-0.8 Eos # 0.0 10 Normal 0.0-0.5 Baso # 0.0 10 Normal 0.0-0.2 Factor VIII Panel 05/05/2021 [place] [address] [phone] F8 Activity For F8 Panel 214 % High 56-140 7 F8 Antigen For F8 Panel 115 % Normal 50-200 8 F8 Activity vWB For F8 Panel 71 % Normal 50-200 Interpretation: Note Normal . 9 Platelet Function Analysis 05/05/2021 [place] [address] [phone] Collagen Epinephrine TNP seconds Normal 74-162 10 Laboratory test finding 05/05/2021 [place] [address] [phone] Partial Thromboplastin Time 24.9 seconds Low 25 .9-37.0 Prothrombin Time/Inr 05/05/2021 [place] [address] [phone] Prothrombin Time 14.0 seconds Normal 12.7-14.5 Inr 1.04 Normal 11 Retic (Reticulocyte Count) 05/05/2021 [place] [address] [phone] Reticulocyte % 5.9 % High 0.5-1.5 Reticulocyte # 119.8 10 High 17-77 Retic Hemoglobin Equivalent 30.7 pg Normal 24-36 Laboratory test finding 05/05/2021 [place] [address] [phone] LDH Lactate Dehydrogenase 128 U/L Normal 84-246 Haptoglobin 214 mg/dL Normal 41-333 12 CBC With Differential 04/27/2021 [place] [address] [phone] White Blood Count 4.2 10 Normal 4.0-10.0 [...] 36.0-66.0 Lymph % 8.1 % Low 24.0-44.0 [place] % 12.8 % High 2.0-8.0 Eos % 1.0 % Normal 0.0-3.0 Baso % 0.2 % Normal 0.0-1.0 Immature Granulocyte % 0.5 % Normal 0-3.0 Nucleated Red Blood Cell % 0.0 % Normal 0-0 Neutrophils # 3.3 10 Normal 1.5-8.5 Lymph # 0.3 10 Low 1.5-5.0 [place] # 0.5 10 Normal 0.0-0.8 Eos # 0.0 10 Normal 0.0-0.5 Baso # 0.0 10 Normal 0.0-0.2 CBC With Differential 04/20/2021 [place] [address] [phone] White Blood Count 3.9 10 Low 4.0-10.0 [...] 36.0-66.0 Lymph % 8.8 % Low 24.0-44.0 [place] % 11.9 % High 2.0-8.0 Eos % 1.0 % Normal 0.0-3.0 Baso % 0.5 % Normal 0.0-1.0 Immature Granulocyte % 0.8 % Normal 0-3.0 Nucleated Red Blood Cell % 0.0 % Normal 0-0 Neutrophils # 3.0 10 Normal 1.5-8.5 Lymph # 0.3 10 Low 1.5-5.0 [place] # 0.5 10 Normal 0.0-0.8 Eos # 0.0 10 Normal 0.0-0.5 Baso # 0.0 10 Normal 0.0-0.2 CBC With Differential 04/12/2021 Patient Service [place] [id number] [phone] White Blood Count 4.6 10 Normal 4.0-10.0 [...] 36.0-66.0 Lymph % 6.6 % Low 24.0-44.0 [place] % 9.4 % High 2.0-8.0 Eos % 0.9 % Normal 0.0-3.0 Baso % 0.2 % Normal 0.0-1.0 Immature Granulocyte % 0.4 % Normal 0-3.0 Nucleated Red Blood Cell % 0.0 % Normal 0-0 Neutrophils # 3.8 10 Normal 1.5-8.5 Lymph # 0.3 10 Low 1.5-5.0 [place] # 0.4 10 Normal 0.0-0.8 Eos # 0.0 10 Normal 0.0-0.5 Baso # 0.0 10 Normal 0.0-0.2 Coronavirus 2019 Nasopharygeal 04/10/2021 [place] [address] [phone] Coronavirus 2019 Nasopharygeal ASSAY INFORMATIO <SEE N OTE> 13 CBC With Differential 04/07/2021 [facility] [place] [id number] [phone] White Blood Count 3.4 10 Low 4.0-10.0 [...] 36.0-66.0 Lymph % 8.5 % Low 24.0-44.0 [place] % 10.9 % High 2.0-8.0 Eos % 0.9 % Normal 0.0-3.0 Baso % 0.6 % Normal 0.0-1.0 Immature Granulocyte % 0.6 % Normal 0-3.0 Nucleated Red Blood Cell % 0.0 % Normal 0-0 Neutrophils # 2.7 10 Normal 1.5-8.5 Lymph # 0.3 10 Low 1.5-5.0 [place] # 0.4 10 Normal 0.0-0.8 Eos # 0.0 10 Normal 0.0-0.5 Baso # 0.0 10 Normal 0.0-0.2 Type & Screen -Incl Blood Type,Tye,AB SC 04/07/2021 [place] [address] [phone] Blood Type O POSITIVE Normal AB Screen (Indirect [place])Vis NEGATIVE Normal Laboratory test finding 04/07/2021 [place] [address] [phone] Packed Cells TRANSFUSED PRODU <SEE NOTE> 14 Laboratory test finding 04/07/2021 [place] [address] [phone] Carcinoembryonic Antigen < 0.5 NG/ML Normal <2.5 15 Ferritin 66 NG/ML Normal 8-252 Total Iron Binding Capacit 04/07/2021 [place] [address] [phone] Iron (Fe) 48 g/dL Low 50-170 Total Iron Binding Capacity 353 g/dL Normal 250-450 Percent Saturation 13.6 % Normal 13.2-45.0 Comprehensive Metabolic Profil 04/07/2021 [place] [address] [phone] Glucose, Fasting 184 mg/dL High 70-100 Blood [...] Comprehensive Metabolic Profil 03/24/2021 [place] [address] [phone] Glucose, Fasting 96 mg/dL Normal 70-100 Blood [...] A/B RSV Covid Amp 03/24/2021 [place] [address] [phone] Influenza A Amplification NEGATIVE Normal Negati ve 18 Influenza B Amplification NEGATIVE Normal Negative 19 RSV Amplification NEGATIVE Normal Negative 20 Sars Covid-19 Amplification NEGATIVE Normal Negative 21 Laboratory test finding 03/24/2021 [place] [address] [phone] Packed Cells TRANSFUSED PRODU <SEE NOTE> 22 CBC With Differential 03/24/2021 [place] [address] [phone] White Blood Count 4.6 10 Normal 4.0-10.0 [...] 36.0-66.0 Lymph % 6.2 % Low 24.0-44.0 [place] % 11.4 % High 2.0-8.0 Eos % 0.4 % Normal 0.0-3.0 Baso % 0.4 % Normal 0.0-1.0 Immature Granulocyte % 0.4 % Normal 0-3.0 Nucleated Red Blood Cell % 0.7 % High 0-0 Neutrophils # 3.7 10 Normal 1.5-8.5 Lymph # 0.3 10 Low 1.5-5.0 [place] # 0.5 10 Normal 0.0-0.8 Eos # 0.0 10 Normal 0.0-0.5 Baso # 0.0 10 Normal 0.0-0.2 Metabolic Panel (14), Comprehensive 03/17/2021 [facility] [address] [place], [place] [id number] [phone] Calcium 9.5 mg/dL 8.7-10.3 Glucose 81 mg/dL [...] IU/L 0-32 Lipid Panel 03/17/2021 [facility] [address] [place] [address] [phone] Cholesterol, Total 123 mg/dL 100-199 Triglycerides 141 mg/dL 0-149 HDL Cholesterol 37 mg/dL Low >39 VLDL Cholesterol Mark 25 mg/dL 5-40 LDL Chol Calc ([facility]) 61 mg/dL 0-99 Comment: TNP Hemoglobin A1c 03/17/[address] [facility] [address] [place] [address] [phone] Hemoglobin A1c 4.8 % 4.8-5.6 25 Albumin/Creatinine Ratio, Random Urine 03/17/2021 [facility] [address] [place] [phone] Creatinine, Urine 120.2 mg/dL Not Estab. Albumin, Urine 20.1 ug/mL Not Estab. Alb/Creat Ratio 17 mg/gcreat 0-29 26 Laboratory test finding 03/14/2021 [place] [address] [phone] Packed Cells TRANSFUSED PRODU <SEE NOTE> 27 Type & Screen -Incl Blood Type,Tye,AB SC 03/14/2021 [place] [address] [phone] Blood Type O POSITIVE Normal AB Screen (Indirect [place])Vis NEGATIVE Normal CBC With Differential 03/14/2021 [facility] [place] [id number] [phone] White Blood Count 4.0 10 Normal 4.0-10.0 [...] 36.0-66.0 Lymph % 6.8 % Low 24.0-44.0 [place] % 9.3 % High 2.0-8.0 Eos % 1.0 % Normal 0.0-3.0 Baso % 0.8 % Normal 0.0-1.0 Immature Granulocyte % 0.3 % Normal 0-3.0 Nucleated Red Blood Cell % 0.0 % Normal 0-0 Neutrophils # 3.3 10 Normal 1.5-8.5 Lymph # 0.3 10 Low 1.5-5.0 [place] # 0.4 10 Normal 0.0-0.8 Eos # 0.0 10 Normal 0.0-0.5 Baso # 0.0 10 Normal 0.0-0.2 CBC With Differential 03/10/2021 [place] [address] [phone] White Blood Count 3.4 10 Low 4.0-10.0 [...] 36.0-66.0 Lymph % 7.6 % Low 24.0-44.0 [place] % 12.9 % High 2.0-8.0 Eos % 1.2 % Normal 0.0-3.0 Baso % 0.6 % Normal 0.0-1.0 Immature Granulocyte % 0.3 % Normal 0-3.0 Nucleated Red Blood Cell % 0.0 % Normal 0-0 Neutrophils # 2.6 10 Normal 1.5-8.5 Lymph # 0.3 10 Low 1.5-5.0 [place] # 0.4 10 Normal 0.0-0.8 Eos # 0.0 10 Normal 0.0-0.5 Baso # 0.0 10 Normal 0.0-0.2 Laboratory test finding 03/10/2021 Patient Service [place] 7618896 [phone] Carcinoembryonic Antigen < 0.5 NG/ML Normal <2.5 28 Ferritin 492 NG/ML High 8-252 Comprehensive Metabolic Profil 03/10/2021 Patient S ervice [place] 7618826 [phone] Glucose, Fasting 166 mg/dL High 70-100 Blood [...] Iron Binding Capacit 03/10/2021 [place] [address] [phone] Iron (Fe) 72 g/dL Normal 50-170 Total Iron Binding Capacity 352 g/dL Normal 250-450 Percent Saturation 20.5 % Normal 13.2-45.0 Laboratory test finding 02/28/2021 [place] [address] [phone] Packed Cells TRANSFUSED PRODU <SEE NOTE> 30 Type & Screen -Incl Blood Type,Tye,AB SC 02/28/2021 [place] [address] [phone] Blood Type O POSITIVE Normal AB Screen (Indirect [place])Vis NEGATIVE Normal Laboratory test finding 02/27/2021 Patient Service [place] 7618834 [phone] Blood Urea Nitrogen 26 mg/dL High 7-18 Creatinine With GFR 02/27/2021 [place] [address] [phone] Creatinine For GFR 0.76 mg/dL Normal 0.55-1.30 Glomerular Filtration Rate > 60.0 Normal >32 3 1 Total Iron Binding Capacit 02/27/2021 [place] [address] [phone] Iron (Fe) 79 g/dL Normal 50-170 Total Iron Binding Capacity 384 g/dL Normal 250-450 Percent Saturation 20.6 % Normal 13.2-45.0 Laboratory test finding 02/27/2021 [place] [address] [phone] Ferritin 1039 NG/ML High 8-252 CBC With Differential 02/27/2021 [place] [address] [phone] White Blood Count 6.0 10 Normal 4.0-10.0 [...] 36.0-66.0 Lymph % 4.7 % Low 24.0-44.0 [place] % 11.6 % High 2.0-8.0 Eos % 0.5 % Normal 0.0-3.0 Baso % 0.3 % Normal 0.0-1.0 Immature Granulocyte % 0.8 % Normal 0-3.0 Nucleated Red Blood Cell % 0.3 % High 0-0 Neutrophils # 4.9 10 Normal 1.5-8.5 Lymph # 0.3 10 Low 1.5-5.0 [place] # 0.7 10 Normal 0.0-0.8 Eos # 0.0 10 Normal 0.0-0.5 Baso # 0.0 10 Normal 0.0-0.2 Laboratory test finding 02/10/2021 [place] [address] [phone] Packed Cells TRANSFUSED PRODU <SEE NOTE> 32 Type & Screen -Incl Blood Type,Tye,AB SC 02/10/2021 [place] [address] [phone] Blood Type O POSITIVE Normal AB Screen (Indirect [place]oo[place])Vis NEGATIVE Normal CBC With Differential 02/09/2021 [place] [address] [phone] White Blood Count 3.9 10 Low 4.0-10.0 [...] 36.0-66.0 Lymph % 7.2 % Low 24.0-44.0 [place] % 10.0 % High 2.0-8.0 Eos % 1.0 % Normal 0.0-3.0 Baso % 0.5 % Normal 0.0-1.0 Immature Granulocyte % 0.5 % Normal 0-3.0 Nucleated Red Blood Cell % 0.0 % Normal 0-0 Neutrophils # 3.1 10 Normal 1.5-8.5 Lymph # 0.3 10 Low 1.5-5.0 [place] # 0.4 10 Normal 0.0-0.8 Eos # 0.0 10 Normal 0.0-0.5 Baso # 0.0 10 Normal 0.0-0.2 CBC With Differential 01/27/2021 Patient Service Ce [place] [id number] [phone] White Blood Count 4.2 10 Normal 4.0-10.0 [...] 36.0-66.0 Lymph % 13.6 % Low 24.0-44.0 [place] % 14.6 % High 2.0-8.0 Eos % 1.4 % Normal 0.0-3.0 Baso % 0.5 % Normal 0.0-1.0 Immature Granulocyte % 0.5 % Normal 0-3.0 Nucleated Red Blood Cell % 0.0 % Normal 0-0 Neutrophils # 2.9 10 Normal 1.5-8.5 Lymph # 0.6 10 Low 1.5-5.0 [place] # 0.6 10 Normal 0.0-0.8 Eos # 0.1 10 Normal 0.0-0.5 Baso # 0.0 10 Normal 0.0-0.2 Comprehensive Metabolic Profil 01/27/2021 [place] [address] [phone] Glucose, Fasting 59 mg/dL Low 70-100 Blood [...] Binding Capacit 01/27/2021 [place] [address] [phone] Iron (Fe) 59 g/dL Normal 50-170 Total Iron Binding Capacity 397 g/dL Normal 250-450 Percent Saturation 14.9 % Normal 13.2-45.0 Laboratory test finding 01/27/2021 [place] [address] [phone] Ferritin 39 NG/ML Normal 8-252 Carcinoembryonic Antigen 0.5 NG/ML Normal <2.5 34 Type & Screen -Incl Blood Type,Tye,AB SC 01/20/2021 [place] [address] [phone] Blood Type O POSITIVE Normal AB Screen (Indirect [place])Vis NEGATIVE Normal Laboratory test finding 01/20/2021 Patient Service [place] [phone] Blood Urea Nitrogen 21 mg/dL High 7-18 Complete Blood Count 01/20/2021 [place] [address] [phone] White Blood Count 3.3 10 Low 4.0-10.0 [...] With GFR 01/20/2021 [place] [address] [phone] Creatinine For GFR 0.69 mg/dL Normal 0.55-1.30 Glomerular Filtration Rate > 60.0 Normal >32 3 5 Coronavirus 2019 Nasopharygeal 01/16/2021 Patient S ervice Center [place] [id number] [phone] Coronavirus 2019 Nasopharygeal ASSAY INFORMATIO <SEE N OTE> 36 Type & Screen -Incl Blood Type,Tye,AB SC 01/03/2021 [place] [address] [phone] Blood Type O POSITIVE Normal AB Screen (Indirect [place]ooq)Vis NEGATIVE Normal Laboratory test finding 01/03/2021 [place] [address] [phone] Packed Cells TRANSFUSED PRODU <SEE NOTE> 37 CBC With Differential 01/02/2021 Patient Service Ce nter [place] [id number] [phone] White Blood Count 4.3 10 Normal 4.0-10.0 [...] 36.0-66.0 Lymph % 10.7 % Low 24.0-44.0 [place] % 13.1 % High 2.0-8.0 Eos % 0.7 % Normal 0.0-3.0 Baso % 0.5 % Normal 0.0-1.0 Immature Granulocyte % 0.5 % Normal 0-3.0 Nucleated Red Blood Cell % 0.0 % Normal 0-0 Neutrophils # 3.2 10 Normal 1.5-8.5 Lymph # 0.5 10 Low 1.5-5.0 [place] # 0.6 10 Normal 0.0-0.8 Eos # 0.0 10 Normal 0.0-0.5 Baso # 0.0 10 Normal 0.0-0.2 Comprehensive Metabolic Profil 01/02/2021 [place] [address] [phone] Glucose, Fasting 155 mg/dL High 70-100 Blood [...] Total Iron Binding Capacit 01/02/2021 [place] [address] [phone] Iron (Fe) 55 g/dL Normal 50-170 Total Iron Binding Capacity 398 g/dL Normal 250-450 Percent Saturation 13.8 % Normal 13.2-45.0 Laboratory test finding 01/02/2021 [place] [address] [phone] Thyroid Stimulating Hormone 1.660 uIU/ML Normal 0. 358-3.740 Free T4 0.87 ng/dL Normal 0.76-1.46 Ferritin 58 NG/ML Normal 8-252 Istat Chem8+ Panel 12/23/2020 [place] [address] [phone] iSTAT HCT 33.0 % Low 38.0-51.0 iSTAT Glucose 94 mg/dL Normal 70-105 iSTAT Sodium 138 mEq/L Normal 136-145 iSTAT Potassium 4.2 mEq/L Normal 3.5-5.1 iSTAT CA++ 5.0 mg/dL Normal 4.5-5.3 iSTAT Chloride 102 mEq/L Normal 98-109 iSTAT Co2 27.0 MM/L Normal 23.0-27.0 iSTAT BUN 20 mg/dL Normal 8-26 iSTAT Creatinine 0.7 mg/dL Normal 0.6-1.3 Laboratory test finding 12/23/2020 [place] [address] [phone] Lipase 73 U/L Normal 73-393 Lactic Acid Sepsis Protocol 0.8 mmol/L Normal 0.4-2.0 39 Liver Profile 12/23/2020 [place] [address] [phone] Ast/Sgot 13 U/L Normal 7-37 Alt/SGPT 14 U/L Normal 12-78 Alkaline Phosphatase 95 U/L Normal 45-117 Bilirubin,Total 0.9 mg/dL Normal 0.2-1.0 Bilirubin,Direct 0.3 mg/dL High 0.0-0.2 Total Protein 6.5 GM/DL Normal 6.4-8.2 Albumin 3.4 GM/DL Normal 3.2-5.2 Albumin/Globulin Ratio 1.1 Low 1.2-2.2 PT & Aptt 12/23/2020 [place] [address] [phone] Prothrombin Time 13.3 seconds Normal 12.5-14.3 Inr 0.99 Normal 40 Partial Thromboplastin Time 29.5 seconds Normal 24.2-38.5 CBC With Differential 12/23/2020 [place] [address] [phone] White Blood Count 4.5 10 Normal 4.0-10.0 [...] 36.0-66.0 Lymph % 9.7 % Low 24.0-44.0 [place] % 11.9 % High 2.0-8.0 Eos % 0.9 % Normal 0.0-3.0 Baso % 0.4 % Normal 0.0-1.0 Immature Granulocyte % 0.4 % Normal 0-3.0 Nucleated Red Blood Cell % 0.0 % Normal 0-0 Neutrophils # 3.5 10 Normal 1.5-8.5 Lymph # 0.4 10 Low 1.5-5.0 [place] # 0.5 10 Normal 0.0-0.8 Eos # 0.0 10 Normal 0.0-0.5 Baso # 0.0 10 Normal 0.0-0.2 Laboratory test finding 12/23/2020 [place] [address] [phone] iSTAT Troponin 0.01 NG/ML Normal 0.00-0.08 CBC With Differential 12/19/2020 [place] [address] [phone] White Blood Count 3.8 10 Low 4.0-10.0 [...] 36.0-66.0 Lymph % 11.7 % Low 24.0-44.0 [place] % 11.9 % High 2.0-8.0 Eos % 1.1 % Normal 0.0-3.0 Baso % 0.3 % Normal 0.0-1.0 Immature Granulocyte % 0.5 % Normal 0-3.0 Nucleated Red Blood Cell % 0.0 % Normal 0-0 Neutrophils # 2.8 10 Normal 1.5-8.5 Lymph # 0.4 10 Low 1.5-5.0 [place] # 0.5 10 Normal 0.0-0.8 Eos # 0.0 10 Normal 0.0-0.5 Baso # 0.0 10 Normal 0.0-0.2 CBC With Differential 12/05/2020 [place] [address] [phone] White Blood Count 3.4 10 Low 4.0-10.0 [...] 36.0-66.0 Lymph % 12.8 % Low 24.0-44.0 [place] % 13.7 % High 2.0-8.0 Eos % 1.2 % Normal 0.0-3.0 Baso % 0.6 % Normal 0.0-1.0 Immature Granulocyte % 0.3 % Normal 0-3.0 Nucleated Red Blood Cell % 0.0 % Normal 0-0 Neutrophils # 2.4 10 Normal 1.5-8.5 Lymph # 0.4 10 Low 1.5-5.0 [place] # 0.5 10 Normal 0.0-0.8 Eos # 0.0 10 Normal 0.0-0.5 Baso # 0.0 10 Normal 0.0-0.2 PT & Aptt 12/05/2020 [place] [address] [phone] Prothrombin Time 13.3 seconds Normal 12.5-14.3 Inr 0.99 Normal 41 Partial Thromboplastin Time 29.4 seconds Normal 24.2-38.5 Total Iron Binding Capacit 12/05/2020 [place] [address] [phone] Iron (Fe) 94 g/dL Normal 50-170 Total Iron Binding Capacity 350 g/dL Normal 250-450 Percent Saturation 26.9 % Normal 13.2-45.0 Laboratory test finding 12/05/2020 [place] [address] [phone] Ferritin 108 NG/ML Normal 8-252 1 TRANSFUSED [...] developed and its performance characteristics determined by [employer]. It has not been cleared or approved [...] cofactor activity; FVIII - factor VIII activity. SENIOR BENEFITS SPECIALIST: For questions regarding panel interpretation, please contact Mikal Wasserman M.D. at [employer] at . DISCLAIMER These assessments and interpretations [...] (1) The National Heart, Lung and Blood [place]. The Diagnosis, Evaluation and Management of von Willebrand Disease. [place], [place]: National Institutes of Health Publication 08-5832. [...] RECURRENT MYOCARDIAL INFARCTION 2.5-3.5 12 Performed at: [facility] [id number] Geriatric Social Work Professor: Matt Mcdonnell MD, Phone: [phone] Performed at: [employer] [address] [place] [address] [address] [place] [id number] Geriatric Social Work Professor: Gary Youngblood MD, Phone: [phone] Performed at: [facility] [id number] Geriatric Social Work Professor: Teresa Nguyen MD, Phone: [phone] ASSAY INFORMATION: Real Time RT-PCR or TMA. Both RT-PCR and TMA are nucleic acid amplification tests (NAAT) which are molecular testing modalities and recommended by the CDC for passenger travel. Testing and International Air Travel, cdc.gov/coronavirus/2019-ncov/travelers/srczbws-ixj-izmevb.html 09/01/2020 NOTE: The COVID-19 assay is under Emergency Use Authorization (EUA) by the U.S. Food and Drug Administration. [facility] are designated as high complexity laboratories by the Clinical Laboratory Improvement Amendments of 1988 (CLIA) and are qualified to perform this test. Not Detected 14 TRANSFUSED PRODUCT: PACKED C ELLS COUNT: 3 15 THE CEA ASSAY IS PERFORMED O N THE [facility] [employer] BY CHEMILUMINESCENCE AND SHOULD NOT BE COMPARED [...] Little GFR Left ESRD GFR <15 on [employer] 17 Units are mL/min/1.73 m2 Chronic Kidney Disease Staging per NKF: Stage I & II GFR >=60 Normal to Mildly Decreased Stage III GFR 30-59 Moderately Decreased Stage IV GFR 15-29 Severely Decreased Stage V GFR <15 Very Little GFR Left ESRD GFR <15 on [employer] 18 Negative results do not prec lude [...] pathogens. DISCLAIMER: Testing was performed using the [facility] SARS-CoV-2 test. This test was developed and its performance characteristics determined by [facility]. This test has not been FDA cleared [...] CEA ASSAY IS PERFORMED O N THE [employer] BY CHEMILUMINESCENCE AND SHOULD NOT BE COMPARED [...] Little GFR Left ESRD GFR <15 on [employer] 30 TRANSFUSED PRODUCT: PACKED C ELLS COUNT: 2 31 Units are mL/min/1.73 m2 Chronic Kidney Disease Staging per NKF: Stage I & II GFR >=60 Normal to Mildly Decreased Stage III GFR 30-59 Moderately Decreased Stage IV GFR 15-29 Severely Decreased Stage V GFR <15 Very Little GFR Left ESRD GFR <15 on [employer] 32 TRANSFUSED PRODUCT: PACKED C ELLS COUNT: 2 33 Units are mL/min/1.73 m2 Chronic Kidney Disease Staging per NKF: Stage I & II GFR >=60 Normal to Mildly Decreased Stage III GFR 30-59 Moderately Decreased Stage IV GFR 15-29 Severely Decreased Stage V GFR <15 Very Little GFR Left ESRD GFR <15 on [employer] 34 THE CEA ASSAY IS PERFORMED O [...] Little GFR Left ESRD GFR <15 on [employer] 36 ASSAY INFORMATION: Real Time RT-PCR NOTE: The COVID-19 assay has been cleared by the U.S. Food and Drug Administration under the Emergency Use Authorization (EUA). [facility] are designated as high complexity laboratories by [...] Little GFR Left ESRD GFR <15 on [employer] 39 Y/N query for Sepsis Lactate Rule: [...] 2.5-3.5 Procedures Date Code Description Status 03/28/2021 [address] [place] W/I 7 Days Of DC, Comm W/I 2 Dys Completed 03/23/2021 86376 Office/Outpatient Established Mo d MDM 30-39 Min Completed 03/23/2021 [id number] Diabetic Foot Exam Completed 01/25/2021 [address]28 [place] W/I 7 Days Of DC, Comm W/I 2 Dys Completed 12/27/2020 34255 Office/Outpatient Established Mo d MDM 30-39 Min Completed 12/19/2020 21681 Office/Outpatient Established Mo d MDM 30-39 Min Completed Medical Devices Description No Information Available Encounters Type Date Location Provider Dx Diagnosis Office Visit 03/28/2021 11:45a Main Office Nadiya Bryan FNP D64.9 Anemia, unspecified K29.61 Other gastritis with bleedin g Office Visit 03/23/2021 3:45p Main Office Nadiya Bryan PROPERTY CLAIM REP E11.6 9 Type 2 diabetes mellitus with other specified complication C18.9 Malignant neoplasm of colon, unspecified Z93.2 Ileostomy status E78.2 Mixed hyperlipidemia I10 Essential (primary) hyperten yara I48.91 Unspecified atrial fibrillat ion D64.9 Anemia, unspecified Office Visit 01/25/2021 2:15p Main Office Nadiya Bryan PROPERTY CLAIM REP D64.9 Anemia, unspecified K29.61 Other gastritis with bleedin g Office Visit 12/27/2020 3:45p Main Office Anitha Gamez M.D. 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 D64.9 Anemia, unspecified Office Visit 12/19/2020 2:15p Main Office Nadiya Bryan PROPERTY CLAIM REP E11.6 9 Type 2 diabetes mellitus with other specified complication E78.2 Mixed hyperlipidemia I10 Essential (primary) hyperten yara Z93.2 Ileostomy status C18.9 Malignant neoplasm of colon, unspecified I48.91 Unspecified atrial fibrillat ion Assessments Date Code Description Provider 03/28/2021 D64.9 Anemia, unspecified Deejay Brayn PROPERTY CLAIM REP 03/28/2021 K29.61 Other gastritis with bleeding Pl Nadiya hogan FNP 03/23/2021 E11.69 Type 2 diabetes mellitus with ot her specified complication Nadiya Bryan PROPERTY CLAIM REP 03/23/2021 C18.9 Malignant neoplasm of colon, uns pecified Randi Nadiya, PROPERTY CLAIM REP 03/23/2021 Z93.2 Ileostomy status PleNadiya tracey , PROPERTY CLAIM REP 03/23/2021 E78.2 Mixed hyperlipidemia PleChayo tracey, PROPERTY CLAIM REP 03/23/2021 I10 Essential (primary) hypertension PleSteve traceyy, PROPERTY CLAIM REP 03/23/2021 I48.91 Unspecified atrial fibrillation Steve Bryany, PROPERTY CLAIM REP 03/23/2021 D64.9 Anemia, unspecified [place]leskach, Mo lly, PROPERTY CLAIM REP 01/25/2021 D64.9 Anemia, unspecified Pleskach, Mo lly, PROPERTY CLAIM REP 01/25/2021 K29.61 Other gastritis with bleeding Pl Nadiya hogan, PROPERTY CLAIM REP 12/27/2020 E11.69 Type 2 diabetes mellitus with ot her specified complication Anitha Gamez M.D. 12/27/2020 C18.9 Malignant neoplasm of colon, uns pecified Anitha Gamez M.D. 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 12/27/2020 D64.9 Anemia, unspecified Angela Gamez M.D. 12/19/2020 E11.69 Type 2 diabetes mellitus with ot her specified complication PlealexyStevey, PROPERTY CLAIM REP 12/19/2020 E78.2 Mixed hyperlipidemia PleChayo tracey, PROPERTY CLAIM REP 12/19/2020 I10 Essential (primary) hypertension Randi Nadiya, PROPERTY CLAIM REP 12/19/2020 Z93.2 Ileostomy status Plealexy Nadiya , PROPERTY CLAIM REP 12/19/2020 C18.9 Malignant neoplasm of colon, uns pecified Steve Bryany, PROPERTY CLAIM REP 12/19/2020 I48.91 Unspecified atrial fibrillation Nadiya Bryan [...] Dr Reason for Referral Status Appt Date [facility] Ear[facility] Nose [facility] Throat nose bleed. Sent [phone] [facility], [address] [phone]
--- OUTSIDE RECORDS SUMMARY | 2021-06-19 13:39 | CCD | Continuity of Care Document ---
Author Author Meron BRYAN HEPATOLOGIST Organization Unknown Address [address] [place] [address] Phone [phone] Care Team Providers Care Programming Director Name Role Phone [facility] AUTM [phone] Niels Decker M.D. AUTM [phone] [facility] AUTM Jeff Cramer AUTM [phone] Problems Active Problems Provider Date Type 2 diabetes mellitus Edmond Hood M.D. Onset: 0 10/31/2010 Essential hypertension Edmond oHod M.D. Onset: Mixed hyperlipidemia Edmond Hood M.D. [...] 236units C18.9 Nadiya Bryan FNP 06/16/2020 Z93.2 [place] Remover Wipes Misc use 3-4 wipes every 4 days and as needed when changing ostomy 2Box Z93.2 Nadiya Bryan FNP 06/16/2020 C18.9 Efren Adapt Ceraing change every 4-5 days and as needed ref #[id number] 20units Nadiya Bryan FNP 05/05/2020 [place] 2 Piece Ostomy Skin Barrier ref # [id number] márquez ge every 4-5 days and as needed 20units C18.9 Nadiya Bryan FNP 04/14/2020 Z93.2 [place] 2 Piece Drainable Ostomy Pouch ref # [id number] c hange every 4-5 days and as [...] D64.9 Nadiya Bryan FNP 12/02/2020 - 01/25/2021 Immunizations CPT Code Status Date Vaccine Lot # [id number] Refused 04/17/2016 Pneumococcal Vaccine 21135 Refused 04/17/2016 Prevnar 13 89022 Refused 04/17/2016 Influenza Vaccination Vital Signs Date Vital Result Comment 03/28/2021 11:51am BP Systolic 113 mmHg BP Diastolic 83 mmHg Heart Rate 127 /min Body Temperature 98.0 F Respiratory Rate 18 /min Height 61.5 inches 5'1.50" Weight 114.38 lb O2 % BldC Oximetry 100 % [place] Body Weight 105 lb BMI (Body Mass Index) 21.3 kg/m2 03/23/2021 3:47pm BP Systolic 110 mmHg BP Diastolic 62 mmHg Heart Rate 64 /min Body Temperature 98.7 F Respiratory Rate 16 /min Height 61.5 inches 5'1.50" Weight 116.38 lb O2 % BldC Oximetry 99 % [place] Body Weight 105 lb BMI (Body Mass Index) 21.6 kg/m2 Results Test Acquired Date Facility Test Result H/L Range Note Type & Screen -Incl Blood Type,Yte,AB SC 05/31/2021 [place] [address] [phone] Blood Type O POSITIVE Normal AB Screen (Indirect Farooq)Vis NEGATIVE Normal CBC With Differential 05/31/2021 [place] [address] [phone] White Blood Count 4.9 10 Normal 4.0-10.0 [...] 36.0-66.0 Lymph % 6.5 % Low 24.0-44.0 [place]one % 11.0 % High 2.0-8.0 Eos % 1.8 % Normal 0.0-3.0 Baso % 0.6 % Normal 0.0-1.0 Immature Granulocyte % 0.8 % Normal 0-3.0 Nucleated Red Blood Cell % 0.0 % Normal 0-0 Neutrophils # 3.9 10 Normal 1.5-8.5 Lymph # 0.3 10 Low 1.5-5.0 Shoshone # 0.5 10 Normal 0.0-0.8 Eos # 0.1 10 Normal 0.0-0.5 Baso # 0.0 10 Normal 0.0-0.2 Laboratory test finding 05/31/2021 Patient Service [place] [id number] [phone] Packed Cells TRANSFUSED PRODU <SEE NOTE> 1 CBC With Differential 05/24/2021 [place] [address] [phone] White Blood Count 5.2 10 Normal 4.0-10.0 [...] 36.0-66.0 Lymph % 4.2 % Low 24.0-44.0 Shoshone % 11.7 % High 2.0-8.0 Eos % 1.9 % Normal 0.0-3.0 Baso % 0.6 % Normal 0.0-1.0 Immature Granulocyte % 0.6 % Normal 0-3.0 Nucleated Red Blood Cell % 0.0 % Normal 0-0 Neutrophils # 4.2 10 Normal 1.5-8.5 Lymph # 0.2 10 Low 1.5-5.0 Shoshone # 0.6 10 Normal 0.0-0.8 Eos # 0.1 10 Normal 0.0-0.5 Baso # 0.0 10 Normal 0.0-0.2 Laboratory test finding 05/24/2021 [place] [address] [phone] Packed Cells TRANSFUSED PRODU <SEE NOTE> 2 Type & Screen -Incl Blood Type,Tye,AB SC 05/24/2021 [place] [address] [phone] Blood Type O POSITIVE Normal AB Screen (Indirect Farooq)Vis NEGATIVE Normal CBC With Differential 05/17/2021 [place] [address] [phone] White Blood Count 4.6 10 Normal 4.0-10.0 [...] 36.0-66.0 Lymph % 5.7 % Low 24.0-44.0 Shoshone % 11.3 % High 2.0-8.0 Eos % 1.7 % Normal 0.0-3.0 Baso % 0.4 % Normal 0.0-1.0 Immature Granulocyte % 0.4 % Normal 0-3.0 Nucleated Red Blood Cell % 0.0 % Normal 0-0 Neutrophils # 3.7 10 Normal 1.5-8.5 Lymph # 0.3 10 Low 1.5-5.0 Shoshone # 0.5 10 Normal 0.0-0.8 Eos # 0.1 10 Normal 0.0-0.5 Baso # 0.0 10 Normal 0.0-0.2 Type & Screen -Incl Blood Type,Tye,AB SC 05/17/2021 [place] [address] [phone] Blood Type O POSITIVE Normal AB Screen (Indirect Farooq)Vis NEGATIVE Normal Laboratory test finding 05/17/2021 [place] [address] [phone] Packed Cells TRANSFUSED PRODU <SEE NOTE> 3 CBC With Differential 05/10/2021 Patient Service [place], [place] [id number] [phone] White Blood Count 5.2 10 Normal 4.0-10.0 [...] 36.0-66.0 Lymph % 4.8 % Low 24.0-44.0 Shoshone % 8.7 % High 2.0-8.0 Eos % 1.2 % Normal 0.0-3.0 Baso % 0.4 % Normal 0.0-1.0 Immature Granulocyte % 0.6 % Normal 0-3.0 Nucleated Red Blood Cell % 0.0 % Normal 0-0 Neutrophils # 4.4 10 Normal 1.5-8.5 Lymph # 0.3 10 Low 1.5-5.0 Shoshone # 0.5 10 Normal 0.0-0.8 Eos # 0.1 10 Normal 0.0-0.5 Baso # 0.0 10 Normal 0.0-0.2 CBC With Differential 05/08/2021 [place] [address] [phone] White Blood Count 4.8 10 Normal 4.0-10.0 [...] 36.0-66.0 Lymph % 5.2 % Low 24.0-44.0 Shoshone % 11.2 % High 2.0-8.0 Eos % 1.4 % Normal 0.0-3.0 Baso % 0.4 % Normal 0.0-1.0 Immature Granulocyte % 0.4 % Normal 0-3.0 Nucleated Red Blood Cell % 0.0 % Normal 0-0 Neutrophils # 3.9 10 Normal 1.5-8.5 Lymph # 0.3 10 Low 1.5-5.0 Shoshone # 0.5 10 Normal 0.0-0.8 Eos # 0.1 10 Normal 0.0-0.5 Baso # 0.0 10 Normal 0.0-0.2 Type & Screen -Incl Blood Type,Tye,AB SC 05/08/2021 Patient Service [place] [id number] [phone] Blood Type O POSITIVE Normal AB Screen (Indirect Farooq)Vis NEGATIVE Normal Laboratory test finding 05/08/2021 [place] [address] [phone] Packed Cells TRANSFUSED PRODU <SEE NOTE> 4 Occult Blood 05/08/2021 [place] [address] [phone] Occult Blood OCCULT BLOOD 1 <SEE NOTE> Abnormal 5 Laboratory test finding 05/05/2021 Patient Service [place] 2525608 [phone] Packed Cells TRANSFUSED PRODU <SEE NOTE> 6 Type & Screen -Incl Blood Type,Tye,AB SC 05/05/2021 Patient Service [place] 2525697 [phone] Blood Type O POSITIVE Normal AB Screen (Indirect Farooq)Vis NEGATIVE Normal CBC With Differential 05/05/2021 [place] [address] [phone] White Blood Count 5.1 10 Normal 4.0-10.0 [...] 36.0-66.0 Lymph % 6.3 % Low 24.0-44.0 Shoshone % 11.5 % High 2.0-8.0 Eos % 0.8 % Normal 0.0-3.0 Baso % 0.4 % Normal 0.0-1.0 Immature Granulocyte % 0.6 % Normal 0-3.0 Nucleated Red Blood Cell % 0.0 % Normal 0-0 Neutrophils # 4.1 10 Normal 1.5-8.5 Lymph # 0.3 10 Low 1.5-5.0 Shoshone # 0.6 10 Normal 0.0-0.8 Eos # 0.0 10 Normal 0.0-0.5 Baso # 0.0 10 Normal 0.0-0.2 Factor VIII Panel 05/05/2021 [place] [address] [phone] F8 Activity For F8 Panel 214 % High 56-140 7 F8 Antigen For F8 Panel 115 % Normal 50-200 8 F8 Activity vWB For F8 Panel 71 % Normal 50-200 Interpretation: Note Normal . 9 Platelet Function Analysis 05/05/2021 [place] [address] [phone] Collagen Epinephrine TNP seconds Normal 74-162 10 Laboratory test finding 05/05/2021 [place] [address] [phone] Partial Thromboplastin Time 24.9 seconds Low 25 .9-37.0 Prothrombin Time/Inr 05/05/2021 [place] [address] [phone] Prothrombin Time 14.0 seconds Normal 12.7-14.5 Inr 1.04 Normal 11 Retic (Reticulocyte Count) 05/05/2021 Patient Servi ce [place], [place] 6451398 [phone] Reticulocyte % 5.9 % High 0.5-1.5 Reticulocyte # 119.8 10 High 17-77 Retic Hemoglobin Equivalent 30.7 pg Normal 24-36 Laboratory test finding 05/05/2021 [facility] [place], [place] [id number] [phone] LDH Lactate Dehydrogenase 128 U/L Normal 84-246 Haptoglobin 214 mg/dL Normal 41-333 12 CBC With Differential 04/27/2021 [place] [address] [phone] White Blood Count 4.2 10 Normal 4.0-10.0 [...] 36.0-66.0 Lymph % 8.1 % Low 24.0-44.0 [place]oshone % 12.8 % High 2.0-8.0 Eos % 1.0 % Normal 0.0-3.0 Baso % 0.2 % Normal 0.0-1.0 Immature Granulocyte % 0.5 % Normal 0-3.0 Nucleated Red Blood Cell % 0.0 % Normal 0-0 Neutrophils # 3.3 10 Normal 1.5-8.5 Lymph # 0.3 10 Low 1.5-5.0 [place] # 0.5 10 Normal 0.0-0.8 Eos # 0.0 10 Normal 0.0-0.5 Baso # 0.0 10 Normal 0.0-0.2 CBC With Differential 04/20/2021 [place] [address] [phone] White Blood Count 3.9 10 Low 4.0-10.0 [...] 36.0-66.0 Lymph % 8.8 % Low 24.0-44.0 [place] % 11.9 % High 2.0-8.0 Eos % 1.0 % Normal 0.0-3.0 Baso % 0.5 % Normal 0.0-1.0 Immature Granulocyte % 0.8 % Normal 0-3.0 Nucleated Red Blood Cell % 0.0 % Normal 0-0 Neutrophils # 3.0 10 Normal 1.5-8.5 Lymph # 0.3 10 Low 1.5-5.0 [place] # 0.5 10 Normal 0.0-0.8 Eos # 0.0 10 Normal 0.0-0.5 Baso # 0.0 10 Normal 0.0-0.2 CBC With Differential 04/12/2021 [place] [address] [phone] White Blood Count 4.6 10 Normal 4.0-10.0 [...] 36.0-66.0 Lymph % 6.6 % Low 24.0-44.0 [place]oshone % 9.4 % High 2.0-8.0 Eos % 0.9 % Normal 0.0-3.0 Baso % 0.2 % Normal 0.0-1.0 Immature Granulocyte % 0.4 % Normal 0-3.0 Nucleated Red Blood Cell % 0.0 % Normal 0-0 Neutrophils # 3.8 10 Normal 1.5-8.5 Lymph # 0.3 10 Low 1.5-5.0 [place] # 0.4 10 Normal 0.0-0.8 Eos # 0.0 10 Normal 0.0-0.5 Baso # 0.0 10 Normal 0.0-0.2 Coronavirus 2019 Nasopharygeal 04/10/2021 [place] [address] [phone] Coronavirus 2019 Nasopharygeal ASSAY INFORMATIO <SEE N OTE> 13 CBC With Differential 04/07/2021 [place] [address] [phone] White Blood Count 3.4 10 Low 4.0-10.0 [...] 36.0-66.0 Lymph % 8.5 % Low 24.0-44.0 Shoshone % 10.9 % High 2.0-8.0 Eos % 0.9 % Normal 0.0-3.0 Baso % 0.6 % Normal 0.0-1.0 Immature Granulocyte % 0.6 % Normal 0-3.0 Nucleated Red Blood Cell % 0.0 % Normal 0-0 Neutrophils # 2.7 10 Normal 1.5-8.5 Lymph # 0.3 10 Low 1.5-5.0 [place] # 0.4 10 Normal 0.0-0.8 Eos # 0.0 10 Normal 0.0-0.5 Baso # 0.0 10 Normal 0.0-0.2 Type & Screen -Incl Blood Type,Tye,AB SC 04/07/2021 [facility] [place] [id number] [phone] Blood Type O POSITIVE Normal AB Screen (Indirect Farooq)Vis NEGATIVE Normal Laboratory test finding 04/07/2021 [place] [address] [phone] Packed Cells TRANSFUSED PRODU <SEE NOTE> 14 Laboratory test finding 04/07/2021 [place] [address] [phone] Carcinoembryonic Antigen < 0.5 NG/ML Normal <2.5 15 Ferritin 66 NG/ML Normal 8-252 Total Iron Binding Capacit 04/07/2021 Patient Servi [place] [id number] [phone] Iron (Fe) 48 g/dL Low 50-170 Total Iron Binding Capacity 353 g/dL Normal 250-450 Percent Saturation 13.6 % Normal 13.2-45.0 Comprehensive Metabolic Profil 04/07/2021 [place] [address] [phone] Glucose, Fasting 184 mg/dL High 70-100 Blood [...] 1.2-2.2 Comprehensive Metabolic Profil 03/24/2021 [place] [address] [phone] Glucose, Fasting 96 mg/dL Normal 70-100 Blood [...] A/B RSV Covid Amp 03/24/2021 [place] [address] [phone] Influenza A Amplification NEGATIVE Normal Negati ve 18 Influenza B Amplification NEGATIVE Normal Negative 19 RSV Amplification NEGATIVE Normal Negative 20 Sars Covid-19 Amplification NEGATIVE Normal Negative 21 Laboratory test finding 03/24/2021 [place] [address] [phone] Packed Cells TRANSFUSED PRODU <SEE NOTE> 22 CBC With Differential 03/24/2021 [place] [address] [phone] White Blood Count 4.6 10 Normal 4.0-10.0 [...] 36.0-66.0 Lymph % 6.2 % Low 24.0-44.0 [place]oshone % 11.4 % High 2.0-8.0 Eos % 0.4 % Normal 0.0-3.0 Baso % 0.4 % Normal 0.0-1.0 Immature Granulocyte % 0.4 % Normal 0-3.0 Nucleated Red Blood Cell % 0.7 % High 0-0 Neutrophils # 3.7 10 Normal 1.5-8.5 Lymph # 0.3 10 Low 1.5-5.0 [place] # 0.5 10 Normal 0.0-0.8 Eos # 0.0 10 Normal 0.0-0.5 Baso # 0.0 10 Normal 0.0-0.2 Metabolic Panel (14), Comprehensive 03/17/[address] [facility] [address] [place] [address] [phone] Calcium 9.5 mg/dL 8.7-10.3 Glucose 81 mg/dL [...] IU/L 0-32 Lipid Panel 03/17/2021 [facility] [address] [place] [address] [phone] Cholesterol, Total 123 mg/dL 100-199 Triglycerides 141 mg/dL 0-149 HDL Cholesterol 37 mg/dL Low >39 VLDL Cholesterol Mark 25 mg/dL 5-40 LDL Chol Calc (Nih) 61 mg/dL 0-99 Comment: TNP Hemoglobin A1c 03/17/[address] [facility] [address] [place] [address] [phone] Hemoglobin A1c 4.8 % 4.8-5.6 25 Albumin/Creatinine Ratio, Random Urine 03/17/2021 [facility] [address] [place] [phone] Creatinine, Urine 120.2 mg/dL Not Estab. Albumin, Urine 20.1 ug/mL Not Estab. Alb/Creat Ratio 17 mg/gcreat 0-29 26 Laboratory test finding 03/14/2021 [place] [address] [phone] Packed Cells TRANSFUSED PRODU <SEE NOTE> 27 Type & Screen -Incl Blood Type,Tye,AB SC 03/14/2021 [place] [address] [phone] Blood Type O POSITIVE Normal AB Screen (Indirect Farooq)Vis NEGATIVE Normal CBC With Differential 03/14/2021 Patient Service Ce [facility]ter [place] 3867259 [phone] White Blood Count 4.0 10 Normal 4.0-10.0 [...] 36.0-66.0 Lymph % 6.8 % Low 24.0-44.0 [place]oshone % 9.3 % High 2.0-8.0 Eos % 1.0 % Normal 0.0-3.0 Baso % 0.8 % Normal 0.0-1.0 Immature Granulocyte % 0.3 % Normal 0-3.0 Nucleated Red Blood Cell % 0.0 % Normal 0-0 Neutrophils # 3.3 10 Normal 1.5-8.5 Lymph # 0.3 10 Low 1.5-5.0 [place] # 0.4 10 Normal 0.0-0.8 Eos # 0.0 10 Normal 0.0-0.5 Baso # 0.0 10 Normal 0.0-0.2 CBC With Differential 03/10/2021 Patient Service [place] 1118901 [phone] White Blood Count 3.4 10 Low 4.0-10.0 [...] 36.0-66.0 Lymph % 7.6 % Low 24.0-44.0 [place]oshone % 12.9 % High 2.0-8.0 Eos % 1.2 % Normal 0.0-3.0 Baso % 0.6 % Normal 0.0-1.0 Immature Granulocyte % 0.3 % Normal 0-3.0 Nucleated Red Blood Cell % 0.0 % Normal 0-0 Neutrophils # 2.6 10 Normal 1.5-8.5 Lymph # 0.3 10 Low 1.5-5.0 [place]oshone # 0.4 10 Normal 0.0-0.8 Eos # 0.0 10 Normal 0.0-0.5 Baso # 0.0 10 Normal 0.0-0.2 Laboratory test finding 03/10/2021 [place] [address] [phone] Carcinoembryonic Antigen < 0.5 NG/ML Normal <2.5 28 Ferritin 492 NG/ML High 8-252 Comprehensive Metabolic Profil 03/10/2021 [place] [address] [phone] Glucose, Fasting 166 mg/dL High 70-100 Blood [...] Binding Capacit 03/10/2021 [place] [address] [phone] Iron (Fe) 72 g/dL Normal 50-170 Total Iron Binding Capacity 352 g/dL Normal 250-450 Percent Saturation 20.5 % Normal 13.2-45.0 Laboratory test finding 02/28/2021 [place] [address] [phone] Packed Cells TRANSFUSED PRODU <SEE NOTE> 30 Type & Screen -Incl Blood Type,Tye,AB SC 02/28/2021 [place] [address] [phone] Blood Type O POSITIVE Normal AB Screen (Indirect Farooq)Vis NEGATIVE Normal Laboratory test finding 02/27/2021 [place] [address] [phone] Blood Urea Nitrogen 26 mg/dL High 7-18 Creatinine With GFR 02/27/2021 [place] [address] [phone] Creatinine For GFR 0.76 mg/dL Normal 0.55-1.30 Glomerular Filtration Rate > 60.0 Normal >32 3 1 Total Iron Binding Capacit 02/27/2021 [place] [address] [phone] Iron (Fe) 79 g/dL Normal 50-170 Total Iron Binding Capacity 384 g/dL Normal 250-450 Percent Saturation 20.6 % Normal 13.2-45.0 Laboratory test finding 02/27/2021 [place] [address] [phone] Ferritin 1039 NG/ML High 8-252 CBC With Differential 02/27/2021 [place] [address] [phone] White Blood Count 6.0 10 Normal 4.0-10.0 [...] 36.0-66.0 Lymph % 4.7 % Low 24.0-44.0 [place]oshone % 11.6 % High 2.0-8.0 Eos % 0.5 % Normal 0.0-3.0 Baso % 0.3 % Normal 0.0-1.0 Immature Granulocyte % 0.8 % Normal 0-3.0 Nucleated Red Blood Cell % 0.3 % High 0-0 Neutrophils # 4.9 10 Normal 1.5-8.5 Lymph # 0.3 10 Low 1.5-5.0 [place] # 0.7 10 Normal 0.0-0.8 Eos # 0.0 10 Normal 0.0-0.5 Baso # 0.0 10 Normal 0.0-0.2 Laboratory test finding 02/10/2021 [place] [address] [phone] Packed Cells TRANSFUSED PRODU <SEE NOTE> 32 Type & Screen -Incl Blood Type,Tye,AB SC 02/10/2021 [place] [address] [phone] Blood Type O POSITIVE Normal AB Screen (Indirect Farooq)Vis NEGATIVE Normal CBC With Differential 02/09/2021 [place] [address] [phone] White Blood Count 3.9 10 Low 4.0-10.0 [...] 36.0-66.0 Lymph % 7.2 % Low 24.0-44.0 [place]oshone % 10.0 % High 2.0-8.0 Eos % 1.0 % Normal 0.0-3.0 Baso % 0.5 % Normal 0.0-1.0 Immature Granulocyte % 0.5 % Normal 0-3.0 Nucleated Red Blood Cell % 0.0 % Normal 0-0 Neutrophils # 3.1 10 Normal 1.5-8.5 Lymph # 0.3 10 Low 1.5-5.0 [place]osh[place] # 0.4 10 Normal 0.0-0.8 Eos # 0.0 10 Normal 0.0-0.5 Baso # 0.0 10 Normal 0.0-0.2 CBC With Differential 01/27/2021 [place] [address] [phone] White Blood Count 4.2 10 Normal 4.0-10.0 [...] 36.0-66.0 Lymph % 13.6 % Low 24.0-44.0 [place] % 14.6 % High 2.0-8.0 Eos % 1.4 % Normal 0.0-3.0 Baso % 0.5 % Normal 0.0-1.0 Immature Granulocyte % 0.5 % Normal 0-3.0 Nucleated Red Blood Cell % 0.0 % Normal 0-0 Neutrophils # 2.9 10 Normal 1.5-8.5 Lymph # 0.6 10 Low 1.5-5.0 [place] # 0.6 10 Normal 0.0-0.8 Eos # 0.1 10 Normal 0.0-0.5 Baso # 0.0 10 Normal 0.0-0.2 Comprehensive Metabolic Profil 01/27/2021 [place] [address] [phone] Glucose, Fasting 59 mg/dL Low 70-100 Blood [...] Binding Capacit 01/27/2021 [place] [address] [phone] Iron (Fe) 59 g/dL Normal 50-170 Total Iron Binding Capacity 397 g/dL Normal 250-450 Percent Saturation 14.9 % Normal 13.2-45.0 Laboratory test finding 01/27/2021 [place] [address] [phone] Ferritin 39 NG/ML Normal 8-252 Carcinoembryonic Antigen 0.5 NG/ML Normal <2.5 34 Type & Screen -Incl Blood Type,Tye,AB SC 01/20/2021 [place] [address] [phone] Blood Type O POSITIVE Normal AB Screen (Indirect Faoroq)Vis NEGATIVE Normal Laboratory test finding 01/20/2021 [place] [address] [phone] Blood Urea Nitrogen 21 mg/dL High 7-18 Complete Blood Count 01/20/2021 [place] [address] [phone] White Blood Count 3.3 10 Low 4.0-10.0 [...] Creatinine With GFR 01/20/20[address] [place] [address] [phone] Creatinine For GFR 0.69 mg/dL Normal 0.55-1.30 Glomerular Filtration Rate > 60.0 Normal >32 3 5 Coronavirus 2019 Nasopharygeal 01/16/2021 [place] [address] [phone] Coronavirus 2019 Nasopharygeal ASSAY INFORMATIO <SEE N OTE> 36 Type & Screen -Incl Blood Type,Tye,AB SC 01/03/2021 [place] [address] [phone] Blood Type O POSITIVE Normal AB Screen (Indirect Farooq)Vis NEGATIVE Normal Laboratory test finding 01/03/2021 [place] [address] [phone] Packed Cells TRANSFUSED PRODU <SEE NOTE> 37 CBC With Differential 01/02/2021 [place] [address] [phone] White Blood Count 4.3 10 Normal 4.0-10.0 [...] 36.0-66.0 Lymph % 10.7 % Low 24.0-44.0 [place]one % 13.1 % High 2.0-8.0 Eos % 0.7 % Normal 0.0-3.0 Baso % 0.5 % Normal 0.0-1.0 Immature Granulocyte % 0.5 % Normal 0-3.0 Nucleated Red Blood Cell % 0.0 % Normal 0-0 Neutrophils # 3.2 10 Normal 1.5-8.5 Lymph # 0.5 10 Low 1.5-5.0 [place]oshone # 0.6 10 Normal 0.0-0.8 Eos # 0.0 10 Normal 0.0-0.5 Baso # 0.0 10 Normal 0.0-0.2 Comprehensive Metabolic Profil 01/02/2021 [facility] [place] [address] [phone] Glucose, Fasting 155 mg/dL High 70-100 Blood [...] Iron Binding Capacit 01/02/2021 [place] [address] [phone] Iron (Fe) 55 g/dL Normal 50-170 Total Iron Binding Capacity 398 g/dL Normal 250-450 Percent Saturation 13.8 % Normal 13.2-45.0 Laboratory test finding 01/02/2021 [place] [address] [phone] Thyroid Stimulating Hormone 1.660 uIU/ML Normal 0. 358-3.740 Free T4 0.87 ng/dL Normal 0.76-1.46 Ferritin 58 NG/ML Normal 8-252 Istat Chem8+ Panel 12/23/2020 [place] [address] [phone] iSTAT HCT 33.0 % Low 38.0-51.0 iSTAT Glucose 94 mg/dL Normal 70-105 iSTAT Sodium 138 mEq/L Normal 136-145 iSTAT Potassium 4.2 mEq/L Normal 3.5-5.1 iSTAT CA++ 5.0 mg/dL Normal 4.5-5.3 iSTAT Chloride 102 mEq/L Normal 98-109 iSTAT Co2 27.0 MM/L Normal 23.0-27.0 iSTAT BUN 20 mg/dL Normal 8-26 iSTAT Creatinine 0.7 mg/dL Normal 0.6-1.3 Laboratory test finding 12/23/2020 [place] [address] [phone] Lipase 73 U/L Normal 73-393 Lactic Acid Sepsis Protocol 0.8 mmol/L Normal 0.4-2.0 39 Liver Profile 12/23/2020 [place] [address] [phone] Ast/Sgot 13 U/L Normal 7-37 Alt/SGPT 14 U/L Normal 12-78 Alkaline Phosphatase 95 U/L Normal 45-117 Bilirubin,Total 0.9 mg/dL Normal 0.2-1.0 Bilirubin,Direct 0.3 mg/dL High 0.0-0.2 Total Protein 6.5 GM/DL Normal 6.4-8.2 Albumin 3.4 GM/DL Normal 3.2-5.2 Albumin/Globulin Ratio 1.1 Low 1.2-2.2 PT & Aptt 12/23/2020 [place] [address] [phone] Prothrombin Time 13.3 seconds Normal 12.5-14.3 Inr 0.99 Normal 40 Partial Thromboplastin Time 29.5 seconds Normal 24.2-38.5 CBC With Differential 12/23/2020 [place] [address] [phone] White Blood Count 4.5 10 Normal 4.0-10.0 [...] 36.0-66.0 Lymph % 9.7 % Low 24.0-44.0 [place] % 11.9 % High 2.0-8.0 Eos % 0.9 % Normal 0.0-3.0 Baso % 0.4 % Normal 0.0-1.0 Immature Granulocyte % 0.4 % Normal 0-3.0 Nucleated Red Blood Cell % 0.0 % Normal 0-0 Neutrophils # 3.5 10 Normal 1.5-8.5 Lymph # 0.4 10 Low 1.5-5.0 [place]oshone # 0.5 10 Normal 0.0-0.8 Eos # 0.0 10 Normal 0.0-0.5 Baso # 0.0 10 Normal 0.0-0.2 Laboratory test finding 12/23/2020 Patient Service [facility] [place], [place] [id number] [phone] iSTAT Troponin 0.01 NG/ML Normal 0.00-0.08 CBC With Differential 12/19/2020 Patient Service [place], [place] 5276874 [phone] White Blood Count 3.8 10 Low 4.0-10.0 [...] 36.0-66.0 Lymph % 11.7 % Low 24.0-44.0 [place] % 11.9 % High 2.0-8.0 Eos % 1.1 % Normal 0.0-3.0 Baso % 0.3 % Normal 0.0-1.0 Immature Granulocyte % 0.5 % Normal 0-3.0 Nucleated Red Blood Cell % 0.0 % Normal 0-0 Neutrophils # 2.8 10 Normal 1.5-8.5 Lymph # 0.4 10 Low 1.5-5.0 Shoshone # 0.5 10 Normal 0.0-0.8 Eos # 0.0 10 Normal 0.0-0.5 Baso # 0.0 10 Normal 0.0-0.2 CBC With Differential 12/05/2020 Patient Service [place] [id number] [phone] White Blood Count 3.4 10 Low 4.0-10.0 [...] 36.0-66.0 Lymph % 12.8 % Low 24.0-44.0 Shoshone % 13.7 % High 2.0-8.0 Eos % 1.2 % Normal 0.0-3.0 Baso % 0.6 % Normal 0.0-1.0 Immature Granulocyte % 0.3 % Normal 0-3.0 Nucleated Red Blood Cell % 0.0 % Normal 0-0 Neutrophils # 2.4 10 Normal 1.5-8.5 Lymph # 0.4 10 Low 1.5-5.0 Shoshone # 0.5 10 Normal 0.0-0.8 Eos # 0.0 10 Normal 0.0-0.5 Baso # 0.0 10 Normal 0.0-0.2 PT & Aptt 12/05/2020 [place] [address] [phone] Prothrombin Time 13.3 seconds Normal 12.5-14.3 Inr 0.99 Normal 41 Partial Thromboplastin Time 29.4 seconds Normal 24.2-38.5 Total Iron Binding Capacit 12/05/2020 [place] [address] [phone] Iron (Fe) 94 g/dL Normal 50-170 Total Iron Binding Capacity 350 g/dL Normal 250-450 Percent Saturation 26.9 % Normal 13.2-45.0 Laboratory test finding 12/05/2020 [place] [address] [phone] Ferritin 108 NG/ML Normal 8-252 1 TRANSFUSED [...] developed and its performance characteristics determined by [employer]. It has not been cleared or approved [...] cofactor activity; FVIII - factor VIII activity. FLAT KNITTER: For questions regarding panel interpretation, please contact Mikal Wasserman M.D. at [email or web address] at . DISCLAIMER These assessments and interpretations [...] (1) The National Heart, Lung and Blood [place]. The Diagnosis, Evaluation and Management of von Willebrand Disease. [place], [place]: National Institutes of Health Publication 08-5832. 2006. Available at http://www.nhlbi.nih.gov/guidelines/vwd/. (2) Tayo MONTES et [...] RECURRENT MYOCARDIAL INFARCTION 2.5-3.5 12 Performed at: [facility] [id number] [id number] Machine Operator: Matt Mcdonnell MD, Phone: [phone] Performed at: [facility] [address] [place] [address] [place] [id number] Beveling Machine Operator: Gary Youngblood MD, Phone: [phone] Performed at: [facility] [id number] Beveling Machine Operator: Teresa Nguyen MD, Phone: [phone] ASSAY INFORMATION: Real Time RT-PCR or TMA. Both RT-PCR and TMA are nucleic acid amplification tests (NAAT) which are molecular testing modalities and recommended by the CDC for passenger travel. Testing and International Air Travel, cdc.gov/coronavirus/2019-ncov/travelers/escamfq-obz-bofxja.html 09/01/2020 NOTE: The COVID-19 assay is under Emergency Use Authorization (EUA) by the U.S. Food and Drug Administration. [facility] and [employer] [facility] are designated as high complexity laboratories by the Clinical Laboratory Improvement Amendments of 1988 (CLIA) and are qualified to perform this test. Not Detected 14 TRANSFUSED PRODUCT: PACKED C ELLS COUNT: 3 15 THE CEA ASSAY IS PERFORMED O N THE [employer] BY CHEMILUMINESCENCE AND SHOULD NOT BE COMPARED [...] Little GFR Left ESRD GFR <15 on ROLL FORMER 17 Units are mL/min/1.73 m2 Chronic Kidney Disease Staging per NKF: Stage I & II GFR >=60 Normal to Mildly Decreased Stage III GFR 30-59 Moderately Decreased Stage IV GFR 15-29 Severely Decreased Stage V GFR <15 Very Little GFR Left ESRD GFR <15 on ROLL FORMER 18 Negative results do not prec lude [...] pathogens. DISCLAIMER: Testing was performed using the [employer] SARS-CoV-2 test. This test was developed and its performance characteristics determined by [employer]. This test has not been FDA cleared [...] NKF-ASN Task force. 24 Effective March 27 Alkaline Phosphatase reference interval [...] CEA ASSAY IS PERFORMED O N THE [employer] BY CHEMILUMINESCENCE AND SHOULD NOT BE COMPARED [...] Little GFR Left ESRD GFR <15 on ROLL FORMER 30 TRANSFUSED PRODUCT: PACKED C ELLS COUNT: 2 31 Units are mL/min/1.73 m2 Chronic Kidney Disease Staging per NKF: Stage I & II GFR >=60 Normal to Mildly Decreased Stage III GFR 30-59 Moderately Decreased Stage IV GFR 15-29 Severely Decreased Stage V GFR <15 Very Little GFR Left ESRD GFR <15 on ROLL FORMER 32 TRANSFUSED PRODUCT: PACKED C ELLS COUNT: 2 33 Units are mL/min/1.73 m2 Chronic Kidney Disease Staging per NKF: Stage I & II GFR >=60 Normal to Mildly Decreased Stage III GFR 30-59 Moderately Decreased Stage IV GFR 15-29 Severely Decreased Stage V GFR <15 Very Little GFR Left ESRD GFR <15 on ROLL FORMER 34 THE CEA ASSAY IS PERFORMED O N THE [employer] BY CHEMILUMINESCENCE AND SHOULD NOT BE COMPARED [...] Little GFR Left ESRD GFR <15 on ROLL FORMER 36 ASSAY INFORMATION: Real Time RT-PCR NOTE: The COVID-19 assay has been cleared by the U.S. Food and Drug Administration under the Emergency Use Authorization (EUA). [facility] [employer] are designated as high complexity laboratories by [...] Little GFR Left ESRD GFR <15 on ROLL FORMER 39 Y/N query for Sepsis Lactate Rule: [...] 2.5-3.5 Procedures Date Code Description Status 03/28/2021 [id number] [place] W/I 7 Days Of DC, Comm W/I 2 Dys Completed 03/23/2021 [id number] Office/Outpatient Established Mo d MDM 30-39 Min Completed 03/23/2021 [id number] Diabetic Foot Exam Completed 01/25/2021 [id number] [place] W/I 7 Days Of DC, Comm W/I 2 Dys Completed 12/27/2020 55830 Office/Outpatient Established Mo d MDM 30-39 Min Completed 12/19/2020 89491 Office/Outpatient Established Mo d MDM 30-39 Min Completed 12/02/2020 26950 [place] W/I 7 Days Of DC, [...] Visit 01/25/2021 2:15p Main Office Nadiya Bryan HEPATOLOGIST D64.9 Anemia, unspecified K29.61 Other gastritis with bleedin g Office Visit 12/27/2020 3:45p Main Office Anitha Gamez M.D. 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 D64.9 Anemia, unspecified Office Visit 12/19/2020 2:15p Main Office Nadiya Bryan HEPATOLOGIST E11.6 9 Type 2 diabetes mellitus with other specified complication E78.2 Mixed hyperlipidemia I10 Essential (primary) hyperten yara Z93.2 Ileostomy status C18.9 Malignant neoplasm of colon, unspecified I48.91 Unspecified atrial fibrillat ion Office Visit 12/02/2020 10:30a Main Office Pleskach, Nadiya, HEPATOLOGIST D64.9 Anemia, unspecified E11.69 Type 2 diabetes mellitus wit h other specified complication E78.2 Mixed hyperlipidemia I10 Essential (primary) hyperten yara Z93.2 Ileostomy status C18.9 Malignant neoplasm of colon, unspecified I48.91 Unspecified atrial fibrillat ion Assessments Date Code Description Provider 03/28/2021 D64.9 Anemia, unspecified Pleskach, Mo lly, HEPATOLOGIST 03/28/2021 K29.61 Other gastritis with bleeding Pl eskach, Nadiya, HEPATOLOGIST 03/23/2021 E11.69 Type 2 diabetes mellitus with ot her specified complication Pleskach, Nadiya, HEPATOLOGIST 03/23/2021 C18.9 Malignant neoplasm of colon, uns pecified Pleskach, Nadiya, HEPATOLOGIST 03/23/2021 Z93.2 Ileostomy status Plealexy Nadiya , HEPATOLOGIST 03/23/2021 E78.2 Mixed hyperlipidemia Pleskach, M jarocho, HEPATOLOGIST 03/23/2021 I10 Essential (primary) hypertension Pleskach, Nadiya, HEPATOLOGIST 03/23/2021 I48.91 Unspecified atrial fibrillation Pleskach, Nadiya, HEPATOLOGIST 03/23/2021 D64.9 Anemia, unspecified Pleskach, Mo lly, HEPATOLOGIST 01/25/2021 D64.9 Anemia, unspecified Pleskach, Mo lly, HEPATOLOGIST 01/25/2021 K29.61 Other gastritis with bleeding Pl eskach, Nadiya, HEPATOLOGIST 12/27/2020 E11.69 Type 2 diabetes mellitus with ot her specified complication Anitha Gamez M.D. 12/27/2020 C18.9 Malignant neoplasm of colon, uns pecified Anitha Gamez M.D. 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 12/27/2020 D64.9 Anemia, unspecified Angela Gamez M.D. 12/19/2020 E11.69 Type 2 diabetes mellitus with ot her specified complication Pleskach, Nadiya, HEPATOLOGIST 12/19/2020 E78.2 Mixed hyperlipidemia Pleskach, M jarocho, HEPATOLOGIST 12/19/2020 I10 Essential (primary) hypertension Pleskach, Nadiya, HEPATOLOGIST 12/19/2020 Z93.2 Ileostomy status Pleskach Nadiya , HEPATOLOGIST 12/19/2020 C18.9 Malignant neoplasm of colon, uns pecified Pleskach, Nadiya, HEPATOLOGIST 12/19/2020 I48.91 Unspecified atrial fibrillation Pleskach Nadiya, HEPATOLOGIST 12/02/2020 D64.9 Anemia, unspecified Pleskach Mo lly, HEPATOLOGIST 12/02/2020 E11.69 Type 2 diabetes mellitus with ot her specified complication Pleskach Nadiya, HEPATOLOGIST 12/02/2020 E78.2 Mixed hyperlipidemia Pleskach, M jarocho, HEPATOLOGIST 12/02/2020 I10 Essential (primary) hypertension Pleskach Nadiya, HEPATOLOGIST 12/02/2020 Z93.2 Ileostomy status Pleskach Nadiya , HEPATOLOGIST 12/02/2020 C18.9 Malignant neoplasm of colon, uns pecified Pleskach, Nadiya, HEPATOLOGIST 12/02/2020 I48.91 Unspecified atrial fibrillation Nadiya Bryan, HEPATOLOGIST Plan of Treatment Future Appointment(s):* 06/22/2021 3:30 [...] to Reason for Referral Status Appt Date [facility] Ear[facility] Nose [facility] Throat nose bleed. Sent [phone] [facility], [address] [phone]
--- OUTSIDE RECORDS SUMMARY | 2021-06-19 13:39 | CCD | Continuity of Care Document ---
Author Author Meron BRYAN WAITER/WAITRESS BAR Organization Unknown Address [address] [place] [address] Phone [phone] Care Team Providers Care Trade Show Coordinator Name Role Phone [facility] AUTM [phone] Niels Decker M.D. AUTM [phone] [facility] AUTM Jeff Cramer AUTM [phone] Problems Active Problems Provider Date Type 2 [...] 236units C18.9 Nadiya Bryan FNP 06/16/2020 Z93.2 [place] Remover Wipes Misc use 3-4 wipes every 4 days and as needed when changing ostomy 2Box Z93.2 Nadiya Bryan FNP 06/16/2020 C18.9 Efren Adapt Ceraing change every 4-5 days and as needed ref #[id number] 20units Nadiya Bryan FNP 05/05/2020 Filer 2 Piece Ostomy Skin Barrier ref # [id number] márquez ge every 4-5 days and as needed 20units C18.9 Nadiya Bryan FNP 04/14/2020 Z93.2 Filer 2 Piece Drainable Ostomy Pouch ref # [id number] c hange every 4-5 days and as [...] CPT Code Status Date Vaccine Lot # [id number] Refused 04/17/2016 Pneumococcal Vaccine 76318 Refused 04/17/2016 Prevnar 13 52813 Refused 04/17/2016 Influenza Vaccination Vital Signs Date Vital Result Comment 03/28/2021 11:51am BP Systolic 113 mmHg BP Diastolic 83 mmHg Heart Rate 127 /min Body Temperature 98.0 F Respiratory Rate 18 /min Height 61.5 inches 5'1.50" Weight 114.38 lb O2 % BldC Oximetry 100 % [place] Body Weight 105 lb BMI (Body Mass Index) 21.3 kg/m2 03/23/2021 3:47pm BP Systolic 110 mmHg BP Diastolic 62 mmHg Heart Rate 64 /min Body Temperature 98.7 F Respiratory Rate 16 /min Height 61.5 inches 5'1.50" Weight 116.38 lb O2 % BldC Oximetry 99 % [place] Body Weight 105 lb BMI (Body Mass Index) 21.6 kg/m2 Results Test Acquired Date Facility Test Result H/L Range Note Type & Screen -Incl Blood Type,Tye,AB SC 05/31/2021 [place] [address] [phone] Blood Type O POSITIVE Normal AB Screen (Indirect Farooq)Vis NEGATIVE Normal CBC With Differential 05/31/2021 [place] [address] [phone] White Blood Count 4.9 10 Normal 4.0-10.0 [...] 36.0-66.0 Lymph % 6.5 % Low 24.0-44.0 [place] % 11.0 % High 2.0-8.0 Eos % [...] 0.0-0.2 Laboratory test finding 05/31/2021 Patient Service [place] [id number] [phone] Packed Cells TRANSFUSED PRODU <SEE NOTE> 1 CBC With Differential 05/24/2021 [place] [address] [phone] White Blood Count 5.2 10 Normal 4.0-10.0 [...] 36.0-66.0 Lymph % 4.2 % Low 24.0-44.0 [place] % 11.7 % High 2.0-8.0 Eos % 1.9 % Normal 0.0-3.0 Baso % 0.6 % Normal 0.0-1.0 Immature Granulocyte % 0.6 % Normal 0-3.0 Nucleated Red Blood Cell % 0.0 % Normal 0-0 Neutrophils # 4.2 10 Normal 1.5-8.5 Lymph # 0.2 10 Low 1.5-5.0 Hamlin # 0.6 10 Normal 0.0-0.8 Eos # 0.1 10 Normal 0.0-0.5 Baso # 0.0 10 Normal 0.0-0.2 Laboratory test finding 05/24/2021 [place] [address] [phone] Packed Cells TRANSFUSED PRODU <SEE NOTE> 2 Type & Screen -Incl Blood Type,Tye,AB SC 05/24/2021 [place] [address] [phone] Blood Type O POSITIVE Normal AB Screen (Indirect Farooq)Vis NEGATIVE Normal CBC With Differential 05/17/2021 [place] [address] [phone] White Blood Count 4.6 10 Normal 4.0-10.0 [...] 36.0-66.0 Lymph % 5.7 % Low 24.0-44.0 [place] % 11.3 % High 2.0-8.0 Eos % [...] Blood Type,Tye,AB SC 05/17/2021 [place] [address] [phone] Blood Type O POSITIVE Normal AB Screen (Indirect Farooq)Vis NEGATIVE Normal Laboratory test finding 05/17/2021 [place] [address] [phone] Packed Cells TRANSFUSED PRODU <SEE NOTE> 3 CBC With Differential 05/10/2021 Patient Service [place] [id number] [phone] White Blood Count 5.2 10 Normal 4.0-10.0 [...] With Differential 05/08/2021 [place] [address] [phone] White Blood Count 4.8 10 Normal 4.0-10.0 [...] -Incl Blood Type,Tye,AB SC 05/08/2021 Patient Service [place] 9372023 [phone] Blood Type O POSITIVE Normal AB Screen (Indirect Farooq)Vis NEGATIVE Normal Laboratory test finding 05/08/2021 [place] [address] [phone] Packed Cells TRANSFUSED PRODU <SEE NOTE> 4 Occult Blood 05/08/2021 [place] [address] [phone] Occult Blood OCCULT BLOOD 1 <SEE NOTE> Abnormal 5 Laboratory test finding 05/05/2021 Patient Service [place] 9372061 [phone] Packed Cells TRANSFUSED PRODU <SEE NOTE> 6 Type & Screen -Incl Blood Type,Tye,AB SC 05/05/2021 Patient Service [place] 9372002 [phone] Blood Type O POSITIVE Normal AB Screen (Indirect Farooq)Vis NEGATIVE Normal CBC With Differential 05/05/2021 [place] [address] [phone] White Blood Count 5.1 10 Normal 4.0-10.0 [...] 0.0-0.2 Factor VIII Panel 05/05/2021 [place] [address] [phone] F8 Activity For F8 Panel 214 % High 56-140 7 F8 Antigen For F8 Panel 115 % Normal 50-200 8 F8 Activity vWB For F8 Panel 71 % Normal 50-200 Interpretation: Note Normal . 9 Platelet Function Analysis 05/05/2021 [place] [address] [phone] Collagen Epinephrine TNP seconds Normal 74-162 10 Laboratory test finding 05/05/2021 [place] [address] [phone] Partial Thromboplastin Time 24.9 seconds Low 25 .9-37.0 Prothrombin Time/Inr 05/05/2021 [place] [address] [phone] Prothrombin Time 14.0 seconds Normal 12.7-14.5 Inr 1.04 Normal 11 Retic (Reticulocyte Count) 05/05/2021 Patient Servi ce [place], [place] [phone] Reticulocyte % 5.9 % High 0.5-1.5 Reticulocyte # 119.8 10 High 17-77 Retic Hemoglobin Equivalent 30.7 pg Normal 24-36 Laboratory test finding 05/05/2021 [facility] [place], [place] 5978781 [phone] LDH Lactate Dehydrogenase 128 U/L Normal 84-246 Haptoglobin 214 mg/dL Normal 41-333 12 CBC With Differential 04/27/2021 [place] [address] [phone] White Blood Count 4.2 10 Normal 4.0-10.0 [...] CBC With Differential 04/20/2021 [place] [address] [phone] White Blood Count 3.9 10 Low 4.0-10.0 [...] 0.0-0.2 CBC With Differential 04/12/2021 [place] [address] [phone] White Blood Count 4.6 10 Normal 4.0-10.0 [...] 0.0-0.2 Coronavirus 2019 Nasopharygeal 04/10/2021 [place] [id number] [phone] Coronavirus 2019 Nasopharygeal ASSAY INFORMATIO <SEE N OTE> 13 CBC With Differential 04/07/2021 [place] 1206814 [phone] White Blood Count 3.4 10 Low 4.0-10.0 [...] Blood Type,Tye,AB SC 04/07/2021 Patient [facility] [place] 7343908 [phone] Blood Type O POSITIVE Normal AB Screen (Indirect Farooq)Vis NEGATIVE Normal Laboratory test finding 04/07/2021 [place] [address] [phone] Packed Cells TRANSFUSED PRODU <SEE NOTE> 14 Laboratory test finding 04/07/2021 [place] [address] [phone] Carcinoembryonic Antigen < 0.5 NG/ML Normal <2.5 15 Ferritin 66 NG/ML Normal 8-252 Total Iron Binding Capacit 04/07/2021 Patient Servi [place] 9774942 [phone] Iron (Fe) 48 g/dL Low 50-170 Total Iron Binding Capacity 353 g/dL Normal 250-450 Percent Saturation 13.6 % Normal 13.2-45.0 Comprehensive Metabolic Profil 04/07/2021 [place] [address] [phone] Glucose, Fasting 184 mg/dL High 70-100 Blood [...] 1.2-2.2 Comprehensive Metabolic Profil 03/24/2021 [place] [address] [phone] Glucose, Fasting 96 mg/dL Normal 70-100 Blood [...] A/B RSV Covid Amp 03/24/2021 [place] [address] [phone] Influenza A Amplification NEGATIVE Normal Negati ve 18 Influenza B Amplification NEGATIVE Normal Negative 19 RSV Amplification NEGATIVE Normal Negative 20 Sars Covid-19 Amplification NEGATIVE Normal Negative 21 Laboratory test finding 03/24/2021 [place] [address] [phone] Packed Cells TRANSFUSED PRODU <SEE NOTE> 22 CBC With Differential 03/24/2021 [place] [address] [phone] White Blood Count 4.6 10 Normal 4.0-10.0 [...] Metabolic Panel (14), Comprehensive 03/17/[address] [facility] [address] [place] [address] [phone] Calcium 9.5 mg/dL 8.7-10.3 Glucose 81 mg/dL [...] IU/L 0-32 Lipid Panel 03/17/2021 [facility] [address] [place] [address] [phone] Cholesterol, Total 123 mg/dL 100-199 Triglycerides 141 mg/dL 0-149 HDL Cholesterol 37 mg/dL Low >39 VLDL Cholesterol Mark 25 mg/dL 5-40 LDL Chol Calc (Nih) 61 mg/dL 0-99 Comment: TNP Hemoglobin A1c 03/17/[address] [facility] [address] [place] [address] [phone] Hemoglobin A1c 4.8 % 4.8-5.6 25 Albumin/Creatinine Ratio, Random Urine 03/17/[address] [facility] [address] [place] [address] [phone] Creatinine, Urine 120.2 mg/dL Not Estab. Albumin, Urine 20.1 ug/mL Not Estab. Alb/Creat Ratio 17 mg/gcreat 0-29 26 Laboratory test finding 03/14/2021 [place] [address] [phone] Packed Cells TRANSFUSED PRODU <SEE NOTE> 27 Type & Screen -Incl Blood Type,Tye,AB SC 03/14/2021 [place] [address] [phone] Blood Type O POSITIVE Normal AB Screen (Indirect Farooq)Vis NEGATIVE Normal CBC With Differential 03/14/2021 Patient Service Ce nter [place] 7343948 [phone] White Blood Count 4.0 10 Normal 4.0-10.0 [...] 0.0-0.2 CBC With Differential 03/10/2021 Patient Service [place] 9386601 [phone] White Blood Count 3.4 10 Low 4.0-10.0 [...] Laboratory test finding 03/10/2021 [place] [address] [phone] Carcinoembryonic Antigen < 0.5 NG/ML Normal <2.5 28 Ferritin 492 NG/ML High 8-252 Comprehensive Metabolic Profil 03/10/2021 [place] [address] [phone] Glucose, Fasting 166 mg/dL High 70-100 Blood [...] Binding Capacit 03/10/2021 [place] [address] [phone] Iron (Fe) 72 g/dL Normal 50-170 Total Iron Binding Capacity 352 g/dL Normal 250-450 Percent Saturation 20.5 % Normal 13.2-45.0 Laboratory test finding 02/28/2021 [place] [address] [phone] Packed Cells TRANSFUSED PRODU <SEE NOTE> 30 Type & Screen -Incl Blood Type,Tye,AB SC 02/28/2021 [place] [address] [phone] Blood Type O POSITIVE Normal AB Screen (Indirect Farooq)Vis NEGATIVE Normal Laboratory test finding 02/27/2021 [place] [address] [phone] Blood Urea Nitrogen 26 mg/dL High 7-18 Creatinine With GFR 02/27/2021 [place] [address] [phone] Creatinine For GFR 0.76 mg/dL Normal 0.55-1.30 Glomerular Filtration Rate > 60.0 Normal >32 3 1 Total Iron Binding Capacit 02/27/2021 [place] [address] [phone] Iron (Fe) 79 g/dL Normal 50-170 Total Iron Binding Capacity 384 g/dL Normal 250-450 Percent Saturation 20.6 % Normal 13.2-45.0 Laboratory test finding 02/27/2021 [place] [address] [phone] Ferritin 1039 NG/ML High 8-252 CBC With Differential 02/27/2021 [place] [address] [phone] White Blood Count 6.0 10 Normal 4.0-10.0 [...] Laboratory test finding 02/10/2021 [place] [address] [phone] Packed Cells TRANSFUSED PRODU <SEE NOTE> 32 Type & Screen -Incl Blood Type,Tye,AB SC 02/10/2021 [place] [address] [phone] Blood Type O POSITIVE Normal AB Screen (Indirect Farooq)Vis NEGATIVE Normal CBC With Differential 02/09/2021 [place] [address] [phone] White Blood Count 3.9 10 Low 4.0-10.0 [...] CBC With Differential 01/27/2021 [place] [address] [phone] White Blood Count 4.2 10 Normal 4.0-10.0 [...] 0.0-0.2 Comprehensive Metabolic Profil 01/27/2021 [place] [address] [phone] Glucose, Fasting 59 mg/dL Low 70-100 Blood [...] Binding Capacit 01/27/2021 [place] [address] [phone] Iron (Fe) 59 g/dL Normal 50-170 Total Iron Binding Capacity 397 g/dL Normal 250-450 Percent Saturation 14.9 % Normal 13.2-45.0 Laboratory test finding 01/27/2021 [place] [address] [phone] Ferritin 39 NG/ML Normal 8-252 Carcinoembryonic Antigen 0.5 NG/ML Normal <2.5 34 Type & Screen -Incl Blood Type,Tye,AB SC 01/20/2021 [place] [address] [phone] Blood Type O POSITIVE Normal AB Screen (Indirect Farooq)Vis NEGATIVE Normal Laboratory test finding 01/20/2021 [place] [address] [phone] Blood Urea Nitrogen 21 mg/dL High 7-18 Complete Blood Count 01/20/2021 [place] [address] [phone] White Blood Count 3.3 10 Low 4.0-10.0 [...] Creatinine With GFR 01/20/2021 [place] [address] [phone] Creatinine For GFR 0.69 mg/dL Normal 0.55-1.30 Glomerular Filtration Rate > 60.0 Normal >32 3 5 Coronavirus 2019 Nasopharygeal 01/16/2021 [place] [address] [phone] Coronavirus 2019 Nasopharygeal ASSAY INFORMATIO <SEE N OTE> 36 Type & Screen -Incl Blood Type,Tye,AB SC 01/03/2021 [place] [address] [phone] Blood Type O POSITIVE Normal AB Screen (Indirect Farooq)Vis NEGATIVE Normal Laboratory test finding 01/03/2021 [place] [address] [phone] Packed Cells TRANSFUSED PRODU <SEE NOTE> 37 CBC With Differential 01/02/2021 [place] [address] [phone] White Blood Count 4.3 10 Normal 4.0-10.0 [...] 0.0-0.2 Comprehensive Metabolic Profil 01/02/2021 [facility] [place] [address] [phone] Glucose, Fasting 155 mg/dL High 70-100 Blood [...] Iron Binding Capacit 01/02/2021 [place] [address] [phone] Iron (Fe) 55 g/dL Normal 50-170 Total Iron Binding Capacity 398 g/dL Normal 250-450 Percent Saturation 13.8 % Normal 13.2-45.0 Laboratory test finding 01/02/2021 [place] [address] [phone] Thyroid Stimulating Hormone 1.660 uIU/ML Normal 0. 358-3.740 Free T4 0.87 ng/dL Normal 0.76-1.46 Ferritin 58 NG/ML Normal 8-252 Istat Chem8+ Panel 12/23/2020 [place] [address] [phone] iSTAT HCT 33.0 % Low 38.0-51.0 iSTAT Glucose 94 mg/dL Normal 70-105 iSTAT Sodium 138 mEq/L Normal 136-145 iSTAT Potassium 4.2 mEq/L Normal 3.5-5.1 iSTAT CA++ 5.0 mg/dL Normal 4.5-5.3 iSTAT Chloride 102 mEq/L Normal 98-109 iSTAT Co2 27.0 MM/L Normal 23.0-27.0 iSTAT BUN 20 mg/dL Normal 8-26 iSTAT Creatinine 0.7 mg/dL Normal 0.6-1.3 Laboratory test finding 12/23/2020 [place] [address] [phone] Lipase 73 U/L Normal 73-393 Lactic Acid Sepsis Protocol 0.8 mmol/L Normal 0.4-2.0 39 Liver Profile 12/23/2020 [place] [address] [phone] Ast/Sgot 13 U/L Normal 7-37 Alt/SGPT 14 U/L Normal 12-78 Alkaline Phosphatase 95 U/L Normal 45-117 Bilirubin,Total 0.9 mg/dL Normal 0.2-1.0 Bilirubin,Direct 0.3 mg/dL High 0.0-0.2 Total Protein 6.5 GM/DL Normal 6.4-8.2 Albumin 3.4 GM/DL Normal 3.2-5.2 Albumin/Globulin Ratio 1.1 Low 1.2-2.2 PT & Aptt 12/23/2020 [place] [address] [phone] Prothrombin Time 13.3 seconds Normal 12.5-14.3 Inr 0.99 Normal 40 Partial Thromboplastin Time 29.5 seconds Normal 24.2-38.5 CBC With Differential 12/23/2020 [place] [address] [phone] White Blood Count 4.5 10 Normal 4.0-10.0 [...] Laboratory test finding 12/23/2020 Patient Service [facility] [place], [place] 1236064 [phone] iSTAT Troponin 0.01 NG/ML Normal 0.00-0.08 CBC With Differential 12/19/2020 Patient Service [place], [place] 2378663 [phone] White Blood Count 3.8 10 Low 4.0-10.0 [...] 0.0-0.2 CBC With Differential 12/05/2020 Patient Service [place] 9386674 [phone] White Blood Count 3.4 10 Low 4.0-10.0 [...] 0.0-0.2 PT & Aptt 12/05/2020 [place] [address] [phone] Prothrombin Time 13.3 seconds Normal 12.5-14.3 Inr 0.99 Normal 41 Partial Thromboplastin Time 29.4 seconds Normal 24.2-38.5 Total Iron Binding Capacit 12/05/2020 [place] [address] [phone] Iron (Fe) 94 g/dL Normal 50-170 Total Iron Binding Capacity 350 g/dL Normal 250-450 Percent Saturation 26.9 % Normal 13.2-45.0 Laboratory test finding 12/05/2020 [place] [address] [phone] Ferritin 108 NG/ML Normal 8-252 1 TRANSFUSED [...] developed and its performance characteristics determined by [employer]. It has not been cleared or approved [...] cofactor activity; FVIII - factor VIII activity. IMAGING ANALYST: For questions regarding panel interpretation, please contact Mikal Wasserman M.D. at [employer] at . DISCLAIMER These assessments and [...] (1) The National Heart, Lung and Blood [place]. The Diagnosis, Evaluation and Management of von Willebrand Disease. [place], MD: National Institutes of Health Publication 08-5832. [...] MYOCARDIAL INFARCTION 2.5-3.5 12 Performed at: [facility] [employer] [id number] [employer]: Matt Mcdonnell MD, Phone: [phone] Performed at: [employer] [address] [place] [address] [place] [id number] [employer]: Gary Youngblood MD, Phone: [phone] Performed at: [facility] [employer] [id number] [employer]: Teresa Nguyen MD, Phone: [phone] ASSAY INFORMATION: Real Time RT-PCR or TMA. Both RT-PCR and TMA are nucleic acid amplification tests (NAAT) which are molecular testing modalities and recommended by the CDC for passenger travel. Testing and International Air Travel, cdc.gov/coronavirus/2019-ncov/travelers/ukxcvrv-uit-tkomnp.html 09/01/2020 NOTE: The COVID-19 assay is under Emergency Use Authorization (EUA) by the U.S. Food and Drug Administration. [employer] and [employer] are designated as high complexity laboratories by the Clinical Laboratory Improvement Amendments of 1988 (CLIA) and are qualified to perform this test. Not Detected 14 TRANSFUSED PRODUCT: PACKED C ELLS COUNT: 3 15 THE CEA ASSAY IS PERFORMED O N THE JAMISON [employer] BY CHEMILUMINESCENCE AND SHOULD NOT BE COMPARED [...] Little GFR Left ESRD GFR <15 on SLEEP TECHNICIAN 17 Units are mL/min/1.73 m2 Chronic Kidney Disease Staging per NKF: Stage I & II GFR >=60 Normal to Mildly Decreased Stage III GFR 30-59 Moderately Decreased Stage IV GFR 15-29 Severely Decreased Stage V GFR <15 Very Little GFR Left ESRD GFR <15 on SLEEP TECHNICIAN 18 Negative results do not prec lude [...] pathogens. DISCLAIMER: Testing was performed using the [employer] SARS-CoV-2 test. This test was developed and its performance characteristics determined by [employer]. This test has not been FDA [...] CEA ASSAY IS PERFORMED O N THE Art [employer] BY CHEMILUMINESCENCE AND SHOULD NOT BE COMPARED [...] Little GFR Left ESRD GFR <15 on SLEEP TECHNICIAN 30 TRANSFUSED PRODUCT: PACKED C ELLS COUNT: 2 31 Units are mL/min/1.73 m2 Chronic Kidney Disease Staging per NKF: Stage I & II GFR >=60 Normal to Mildly Decreased Stage III GFR 30-59 Moderately Decreased Stage IV GFR 15-29 Severely Decreased Stage V GFR <15 Very Little GFR Left ESRD GFR <15 on SLEEP TECHNICIAN 32 TRANSFUSED PRODUCT: PACKED C ELLS COUNT: 2 33 Units are mL/min/1.73 m2 Chronic Kidney Disease Staging per NKF: Stage I & II GFR >=60 Normal to Mildly Decreased Stage III GFR 30-59 Moderately Decreased Stage IV GFR 15-29 Severely Decreased Stage V GFR <15 Very Little GFR Left ESRD GFR <15 on SLEEP TECHNICIAN 34 THE CEA ASSAY IS PERFORMED O N THE JAMISON [employer] BY CHEMILUMINESCENCE AND SHOULD NOT BE COMPARED [...] Little GFR Left ESRD GFR <15 on SLEEP TECHNICIAN 36 ASSAY INFORMATION: Real Time RT-PCR NOTE: The COVID-19 assay has been cleared by the U.S. Food and Drug Administration under the Emergency Use Authorization (EUA). [employer] are designated as high complexity laboratories by [...] Little GFR Left ESRD GFR <15 on SLEEP TECHNICIAN 39 Y/N query for Sepsis Lactate Rule: [...] 2.5-3.5 Procedures Date Code Description Status 03/28/2021 88707 [place] W/I 7 Days Of DC, Comm W/I 2 Dys Completed 03/23/2021 98646 Office/Outpatient Established Mo d MDM 30-39 Min Completed 03/23/2021 [id number] Diabetic Foot Exam Completed 01/25/2021 27430 [place] W/I 7 Days Of DC, Comm W/I 2 Dys Completed 12/27/2020 13013 Office/Outpatient Established Mo d MDM 30-39 Min Completed 12/19/2020 47917 Office/Outpatient Established Mo d MDM 30-39 Min Completed 12/02/2020 50921 [place] W/I 7 Days Of DC, [...] Visit 01/25/2021 2:15p Main Office Nadiya Bryan WAITER/WAITRESS BAR D64.9 Anemia, unspecified K29.61 Other gastritis with bleedin g Office Visit 12/27/2020 3:45p Main Office Anitha Gamez M.D. 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 C18.9 Malignant neoplasm of colon, unspecified I48.91 Unspecified atrial fibrillat ion Office Visit 12/02/2020 10:30a Main Office Pleskach, Nadiya, WAITER/WAITRESS BAR D64.9 Anemia, unspecified E11.69 Type 2 diabetes mellitus wit h other specified complication E78.2 Mixed hyperlipidemia I10 Essential (primary) hyperten yara Z93.2 Ileostomy status C18.9 Malignant neoplasm of colon, unspecified I48.91 Unspecified atrial fibrillat ion Assessments Date Code Description Provider 03/28/2021 D64.9 Anemia, unspecified Pleskach, Mo lly, WAITER/WAITRESS BAR 03/28/2021 K29.61 Other gastritis with bleeding Pl eskach, Nadiya, WAITER/WAITRESS BAR 03/23/2021 E11.69 Type 2 diabetes mellitus with ot her specified complication Pleskach, Ndaiya, WAITER/WAITRESS BAR 03/23/2021 C18.9 Malignant neoplasm of colon, uns pecified Pleskach, Nadiya, WAITER/WAITRESS BAR 03/23/2021 Z93.2 Ileostomy status Plealexy Nadiya , WAITER/WAITRESS BAR 03/23/2021 E78.2 Mixed hyperlipidemia Pleskach, M jarocho, WAITER/WAITRESS BAR 03/23/2021 I10 Essential (primary) hypertension Pleskach, Nadiya, WAITER/WAITRESS BAR 03/23/2021 I48.91 Unspecified atrial fibrillation Pleskach, Nadiya, WAITER/WAITRESS BAR 03/23/2021 D64.9 Anemia, unspecified Pleskach, Mo lly, WAITER/WAITRESS BAR 01/25/2021 D64.9 Anemia, unspecified Pleskach, Mo lly, WAITER/WAITRESS BAR 01/25/2021 K29.61 Other gastritis with bleeding Pl eskach, Nadiya, WAITER/WAITRESS BAR 12/27/2020 E11.69 Type 2 diabetes mellitus with ot her specified complication Anitha Gamez M.D. 12/27/2020 C18.9 Malignant neoplasm of colon, uns pecified Anitha Gamez M.D. 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 12/27/2020 D64.9 Anemia, unspecified Angela Gamez M.D. 12/19/2020 E11.69 Type 2 diabetes mellitus with ot her specified complication Pleskach, Nadiya, WAITER/WAITRESS BAR 12/19/2020 E78.2 Mixed hyperlipidemia Pleskach, M jarocho, WAITER/WAITRESS BAR 12/19/2020 I10 Essential (primary) hypertension Pleskach, Nadiya, WAITER/WAITRESS BAR 12/19/2020 Z93.2 Ileostomy status Pleskach Nadiya , WAITER/WAITRESS BAR 12/19/2020 C18.9 Malignant neoplasm of colon, uns pecified Pleskach, Nadiya, WAITER/WAITRESS BAR 12/19/2020 I48.91 Unspecified atrial fibrillation Pleskach Nadiya, WAITER/WAITRESS BAR 12/02/2020 D64.9 Anemia, unspecified Pleskach Mo lly, WAITER/WAITRESS BAR 12/02/2020 E11.69 Type 2 diabetes mellitus with ot her specified complication Pleskach Nadiya, WAITER/WAITRESS BAR 12/02/2020 E78.2 Mixed hyperlipidemia Pleskach, M jarocho, WAITER/WAITRESS BAR 12/02/2020 I10 Essential (primary) hypertension Pleskach Nadiya, WAITER/WAITRESS BAR 12/02/2020 Z93.2 Ileostomy status Pleskach Nadiya , WAITER/WAITRESS BAR 12/02/2020 C18.9 Malignant neoplasm of colon, uns pecified Pleskach, Nadiya, WAITER/WAITRESS BAR 12/02/2020 I48.91 Unspecified atrial fibrillation Nadiya Bryan, WAITER/WAITRESS BAR Plan of Treatment Future Appointment(s):* 06/22/2021 3:30 [...] to Reason for Referral Status Appt Date [facility] Ear, Nose And Throat nose bleed. Sent 0 [address] [facility] [place], [address] [phone]
--- OUTSIDE RECORDS SUMMARY | 2021-06-19 13:40 | CCD | Continuity of Care Document ---
Author Author Meron BRYAN [employer] Organization Unknown Address [address] [place] [address] Phone [phone] Care Team Providers Care Skelp Processor Name Role Phone [facility] AUTM [phone] Niels Decker M.D. AUTM [phone] [facility] AUTM Jeff Cramer AUTM [phone] Problems Active Problems Provider Date Type 2 [...] 236units C18.9 Nadiya Bryan FNP 06/16/2020 Z93.2 Cross[place] Remover Wipes Misc use 3-4 wipes every 4 days and as needed when changing ostomy 2Box Z93.2 Nadiya Bryan FNP 06/16/2020 C18.9 Efren Adapt Ceraing change every 4-5 days and as needed ref #[id number] 05 20units Nadiya Bryan FNP 05/05/2020 Morgan 2 Piece Ostomy Skin Barrier ref # [id number] márquez ge every 4-5 days and as needed 20units C18.9 Nadiya Bryan FNP 04/14/2020 Z93.2 Morgan 2 Piece Drainable Ostomy Pouch ref # [id number] c hange every 4-5 days and as [...] CPT Code Status Date Vaccine Lot # [id number] Refused 04/17/2016 Pneumococcal Vaccine 76238 Refused 04/17/2016 Prevnar 13 14828 Refused 04/17/2016 Influenza Vaccination Vital Signs Date Vital Result Comment 03/28/2021 11:51am BP Systolic 113 mmHg BP Diastolic 83 mmHg Heart Rate 127 /min Body Temperature 98.0 F Respiratory Rate 18 /min Height 61.5 inches 5'1.50" Weight 114.38 lb O2 % BldC Oximetry 100 % Ucon Body Weight 105 lb BMI (Body Mass Index) 21.3 kg/m2 03/23/2021 3:47pm BP Systolic 110 mmHg BP Diastolic 62 mmHg Heart Rate 64 /min Body Temperature 98.7 F Respiratory Rate 16 /min Height 61.5 inches 5'1.50" Weight 116.38 lb O2 % BldC Oximetry 99 % Ucon Body Weight 105 lb BMI (Body Mass Index) 21.6 kg/m2 Results Test Acquired Date Facility Test Result H/L Range Note Laboratory test finding 05/31/2021 [place] [address] [phone] Packed Cells TRANSFUSED PRODU <SEE NOTE> 1 CBC With Differential 05/31/2021 [place] [address] [phone] White Blood Count 4.9 10 Normal 4.0-10.0 [...] 36.0-66.0 Lymph % 6.5 % Low 24.0-44.0 [place] % 11.0 % High 2.0-8.0 Eos % 1.8 % Normal 0.0-3.0 Baso % 0.6 % Normal 0.0-1.0 Immature Granulocyte % 0.8 % Normal 0-3.0 Nucleated Red Blood Cell % 0.0 % Normal 0-0 Neutrophils # 3.9 10 Normal 1.5-8.5 Lymph # 0.3 10 Low 1.5-5.0 [place] # 0.5 10 Normal 0.0-0.8 Eos # 0.1 10 Normal 0.0-0.5 Baso # 0.0 10 Normal 0.0-0.2 Laboratory test finding 05/24/2021 [place] [address] [phone] Packed Cells TRANSFUSED PRODU <SEE NOTE> 2 CBC With Differential 05/24/2021 [place] [address] [phone] White Blood Count 5.2 10 Normal 4.0-10.0 [...] 36.0-66.0 Lymph % 4.2 % Low 24.0-44.0 [place] % 11.7 % High 2.0-8.0 Eos % 1.9 % Normal 0.0-3.0 Baso % 0.6 % Normal 0.0-1.0 Immature Granulocyte % 0.6 % Normal 0-3.0 Nucleated Red Blood Cell % 0.0 % Normal 0-0 Neutrophils # 4.2 10 Normal 1.5-8.5 Lymph # 0.2 10 Low 1.5-5.0 [place] # 0.6 10 Normal 0.0-0.8 Eos # 0.1 10 Normal 0.0-0.5 Baso # 0.0 10 Normal 0.0-0.2 Type & Screen -Incl Blood Type,Tye,AB SC 05/24/2021 [place] [address] [phone] Blood Type O POSITIVE Normal AB Screen (Indirect Farooq)Vis NEGATIVE Normal CBC With Differential 05/17/2021 [place] [address] [phone] White Blood Count 4.6 10 Normal 4.0-10.0 [...] 36.0-66.0 Lymph % 5.7 % Low 24.0-44.0 [place] % 11.3 % High 2.0-8.0 Eos % 1.7 % Normal 0.0-3.0 Baso % 0.4 % Normal 0.0-1.0 Immature Granulocyte % 0.4 % Normal 0-3.0 Nucleated Red Blood Cell % 0.0 % Normal 0-0 Neutrophils # 3.7 10 Normal 1.5-8.5 Lymph # 0.3 10 Low 1.5-5.0 [place] # 0.5 10 Normal 0.0-0.8 Eos # 0.1 10 Normal 0.0-0.5 Baso # 0.0 10 Normal 0.0-0.2 Type & Screen -Incl Blood Type,Tye,AB SC 05/17/2021 [place] [address] [phone] Blood Type O POSITIVE Normal AB Screen (Indirect Farooq)Vis NEGATIVE Normal Laboratory test finding 05/17/2021 [place] [address] [phone] Packed Cells TRANSFUSED PRODU <SEE NOTE> 3 CBC With Differential 05/10/2021 [place] [address] [phone] White Blood Count 5.2 10 Normal 4.0-10.0 [...] 36.0-66.0 Lymph % 4.8 % Low 24.0-44.0 [place] % 8.7 % High 2.0-8.0 Eos % 1.2 % Normal 0.0-3.0 Baso % 0.4 % Normal 0.0-1.0 Immature Granulocyte % 0.6 % Normal 0-3.0 Nucleated Red Blood Cell % 0.0 % Normal 0-0 Neutrophils # 4.4 10 Normal 1.5-8.5 Lymph # 0.3 10 Low 1.5-5.0 [place] # 0.5 10 Normal 0.0-0.8 Eos # 0.1 10 Normal 0.0-0.5 Baso # 0.0 10 Normal 0.0-0.2 CBC With Differential 05/08/2021 [place] [address] [phone] White Blood Count 4.8 10 Normal 4.0-10.0 [...] 36.0-66.0 Lymph % 5.2 % Low 24.0-44.0 [place] % 11.2 % High 2.0-8.0 Eos % 1.4 % Normal 0.0-3.0 Baso % 0.4 % Normal 0.0-1.0 Immature Granulocyte % 0.4 % Normal 0-3.0 Nucleated Red Blood Cell % 0.0 % Normal 0-0 Neutrophils # 3.9 10 Normal 1.5-8.5 Lymph # 0.3 10 Low 1.5-5.0 [place] # 0.5 10 Normal 0.0-0.8 Eos # 0.1 10 Normal 0.0-0.5 Baso # 0.0 10 Normal 0.0-0.2 Type & Screen -Incl Blood Type,Tye,AB SC 05/08/2021 [place] [address] [phone] Blood Type O POSITIVE Normal AB Screen (Indirect Farooq)Vis NEGATIVE Normal Laboratory test finding 05/08/2021 [place] [address] [phone] Packed Cells TRANSFUSED PRODU <SEE NOTE> 4 Occult Blood 05/08/2021 [place] [address] [phone] Occult Blood OCCULT BLOOD 1 <SEE NOTE> Abnormal 5 Retic (Reticulocyte Count) 05/05/2021 [place] [address] [phone] Reticulocyte % 5.9 % High 0.5-1.5 Reticulocyte # 119.8 10 High 17-77 Retic Hemoglobin Equivalent 30.7 pg Normal 24-36 Laboratory test finding 05/05/2021 [place] [address] [phone] Packed Cells TRANSFUSED PRODU <SEE NOTE> 6 Type & Screen -Incl Blood Type,Tye,AB SC 05/05/2021 [place] [address] [phone] Blood Type O POSITIVE Normal AB Screen (Indirect Farooq)Vis NEGATIVE Normal CBC With Differential 05/05/2021 Patient Service Ce [facility]ter [place] [id number] [phone] White Blood Count 5.1 10 Normal 4.0-10.0 [...] 36.0-66.0 Lymph % 6.3 % Low 24.0-44.0 [place] % 11.5 % High 2.0-8.0 Eos % 0.8 % Normal 0.0-3.0 Baso % 0.4 % Normal 0.0-1.0 Immature Granulocyte % 0.6 % Normal 0-3.0 Nucleated Red Blood Cell % 0.0 % Normal 0-0 Neutrophils # 4.1 10 Normal 1.5-8.5 Lymph # 0.3 10 Low 1.5-5.0 [place] # 0.6 10 Normal 0.0-0.8 Eos # 0.0 10 Normal 0.0-0.5 Baso # 0.0 10 Normal 0.0-0.2 Factor VIII Panel 05/05/2021 [place] [address] [phone] F8 Activity For F8 Panel 214 % High 56-140 7 F8 Antigen For F8 Panel 115 % Normal 50-200 8 F8 Activity vWB For F8 Panel 71 % Normal 50-200 Interpretation: Note Normal . 9 Laboratory test finding 05/05/2021 [place] [address] [phone] LDH Lactate Dehydrogenase 128 U/L Normal 84-246 Haptoglobin 214 mg/dL Normal 41-333 10 Platelet Function Analysis 05/05/2021 [place] [address] [phone] Collagen Epinephrine TNP seconds Normal 74-162 11 Laboratory test finding 05/05/2021 [place] [address] [phone] Partial Thromboplastin Time 24.9 seconds Low 25 .9-37.0 Prothrombin Time/Inr 05/05/2021 [place] [address] [phone] Prothrombin Time 14.0 seconds Normal 12.7-14.5 Inr 1.04 Normal 12 CBC With Differential 04/27/2021 [place] [address] [phone] White Blood Count 4.2 10 Normal 4.0-10.0 [...] 36.0-66.0 Lymph % 8.1 % Low 24.0-44.0 [place] % 12.8 % High 2.0-8.0 Eos % 1.0 % Normal 0.0-3.0 Baso % 0.2 % Normal 0.0-1.0 Immature Granulocyte % 0.5 % Normal 0-3.0 Nucleated Red Blood Cell % 0.0 % Normal 0-0 Neutrophils # 3.3 10 Normal 1.5-8.5 Lymph # 0.3 10 Low 1.5-5.0 [place] # 0.5 10 Normal 0.0-0.8 Eos # 0.0 10 Normal 0.0-0.5 Baso # 0.0 10 Normal 0.0-0.2 CBC With Differential 04/20/2021 [place] [address] [phone] White Blood Count 3.9 10 Low 4.0-10.0 [...] 36.0-66.0 Lymph % 8.8 % Low 24.0-44.0 [place] % 11.9 % High 2.0-8.0 Eos % 1.0 % Normal 0.0-3.0 Baso % 0.5 % Normal 0.0-1.0 Immature Granulocyte % 0.8 % Normal 0-3.0 Nucleated Red Blood Cell % 0.0 % Normal 0-0 Neutrophils # 3.0 10 Normal 1.5-8.5 Lymph # 0.3 10 Low 1.5-5.0 [place] # 0.5 10 Normal 0.0-0.8 Eos # 0.0 10 Normal 0.0-0.5 Baso # 0.0 10 Normal 0.0-0.2 CBC With Differential 04/12/2021 Patient Service [place] 0[address]2875 [phone] White Blood Count 4.6 10 Normal 4.0-10.0 [...] 36.0-66.0 Lymph % 6.6 % Low 24.0-44.0 [place] % 9.4 % High 2.0-8.0 Eos % 0.9 % Normal 0.0-3.0 Baso % 0.2 % Normal 0.0-1.0 Immature Granulocyte % 0.4 % Normal 0-3.0 Nucleated Red Blood Cell % 0.0 % Normal 0-0 Neutrophils # 3.8 10 Normal 1.5-8.5 Lymph # 0.3 10 Low 1.5-5.0 [place] # 0.4 10 Normal 0.0-0.8 Eos # 0.0 10 Normal 0.0-0.5 Baso # 0.0 10 Normal 0.0-0.2 Coronavirus 2019 Nasopharygeal 04/10/[address]21 Patient [place], [place] [id number] [phone] Coronavirus 2019 Nasopharygeal ASSAY INFORMATIO <SEE N OTE> 13 Comprehensive Metabolic Profil 04/07/2021 [place] [address] [phone] Glucose, Fasting 184 mg/dL High 70-100 Blood [...] Iron Binding Capacit 04/07/2021 [place] [address] [phone] Iron (Fe) 48 g/dL Low 50-170 Total Iron Binding Capacity 353 g/dL Normal 250-450 Percent Saturation 13.6 % Normal 13.2-45.0 Laboratory test finding 04/07/2021 [place] [address] [phone] Carcinoembryonic Antigen < 0.5 NG/ML Normal <2.5 15 Ferritin 66 NG/ML Normal 8-252 CBC With Differential 04/07/2021 [place] [address] [phone] White Blood Count 3.4 10 Low 4.0-10.0 [...] 36.0-66.0 Lymph % 8.5 % Low 24.0-44.0 [place] % 10.9 % High 2.0-8.0 Eos % 0.9 % Normal 0.0-3.0 Baso % 0.6 % Normal 0.0-1.0 Immature Granulocyte % 0.6 % Normal 0-3.0 Nucleated Red Blood Cell % 0.0 % Normal 0-0 Neutrophils # 2.7 10 Normal 1.5-8.5 Lymph # 0.3 10 Low 1.5-5.0 [place] # 0.4 10 Normal 0.0-0.8 Eos # 0.0 10 Normal 0.0-0.5 Baso # 0.0 10 Normal 0.0-0.2 Laboratory test finding 04/07/2021 [place] [address] [phone] Packed Cells TRANSFUSED PRODU <SEE NOTE> 16 Type & Screen -Incl Blood Type,Tye,AB SC 04/07/2021 [place] [address] [phone] Blood Type O POSITIVE Normal AB Screen (Indirect Farooq)Vis NEGATIVE Normal Comprehensive Metabolic Profil 03/24/2021 Patient S ervice Center [place], [place] [id number] [phone] Glucose, Fasting 96 mg/dL Normal 70-100 Blood [...] 1.2-2.2 CBC With Differential 03/24/2021 [place] [address] [phone] White Blood Count 4.6 10 Normal 4.0-10.0 [...] 36.0-66.0 Lymph % 6.2 % Low 24.0-44.0 [place] % 11.4 % High 2.0-8.0 Eos % 0.4 % Normal 0.0-3.0 Baso % 0.4 % Normal 0.0-1.0 Immature Granulocyte % 0.4 % Normal 0-3.0 Nucleated Red Blood Cell % 0.7 % High 0-0 Neutrophils # 3.7 10 Normal 1.5-8.5 Lymph # 0.3 10 Low 1.5-5.0 [place] # 0.5 10 Normal 0.0-0.8 Eos # 0.0 10 Normal 0.0-0.5 Baso # 0.0 10 Normal 0.0-0.2 Laboratory test finding 03/24/2021 [place] [address] [phone] Packed Cells TRANSFUSED PRODU <SEE NOTE> 18 Influenza A/B RSV Covid Amp 03/24/2021 [place] [address] [phone] Influenza A Amplification NEGATIVE Normal Negati ve 19 Influenza B Amplification NEGATIVE Normal Negative 20 RSV Amplification NEGATIVE Normal Negative 21 Sars Covid-19 Amplification NEGATIVE Normal Negative 22 Metabolic Panel (14), Comprehensive 03/17/2021 [facility] [address] [place] [address] [phone] Calcium 9.5 mg/dL 8.7-10.3 Glucose 81 mg/dL [...] IU/L 0-32 Lipid Panel 03/17/2021 [facility] [address] [place] [address] [phone] Cholesterol, Total 123 mg/dL 100-199 Triglycerides 141 mg/dL 0-149 HDL Cholesterol 37 mg/dL Low >39 VLDL Cholesterol Mark 25 mg/dL 5-40 LDL Chol Calc ([facility]) 61 mg/dL 0-99 Comment: TNP Hemoglobin A1c 03/17/2021 [facility] [address] [place] [address] [phone] Hemoglobin A1c 4.8 % 4.8-5.6 25 Albumin/Creatinine Ratio, Random Urine 03/17/2021 [facility] [address] [place] [address]499 [phone] Creatinine, Urine 120.2 mg/dL Not Estab. Albumin, Urine 20.1 ug/mL Not Estab. Alb/Creat Ratio 17 mg/gcreat 0-29 26 Laboratory test finding 03/14/2021 [place] [address] [phone] Packed Cells TRANSFUSED PRODU <SEE NOTE> 27 Type & Screen -Incl Blood Type,Tye,AB SC 03/14/2021 [facility] [place] [id number] [phone] Blood Type O POSITIVE Normal AB Screen (Indirect Farooq)Vis NEGATIVE Normal CBC With Differential 03/14/2021 [place] [address] [phone] White Blood Count 4.0 10 Normal 4.0-10.0 [...] 36.0-66.0 Lymph % 6.8 % Low 24.0-44.0 [place] % 9.3 % High 2.0-8.0 Eos % 1.0 % Normal 0.0-3.0 Baso % 0.8 % Normal 0.0-1.0 Immature Granulocyte % 0.3 % Normal 0-3.0 Nucleated Red Blood Cell % 0.0 % Normal 0-0 Neutrophils # 3.3 10 Normal 1.5-8.5 Lymph # 0.3 10 Low 1.5-5.0 [place] # 0.4 10 Normal 0.0-0.8 Eos # 0.0 10 Normal 0.0-0.5 Baso # 0.0 10 Normal 0.0-0.2 CBC With Differential 03/10/2021 [place] [address] [phone] White Blood Count 3.4 10 Low 4.0-10.0 [...] 36.0-66.0 Lymph % 7.6 % Low 24.0-44.0 [place] % 12.9 % High 2.0-8.0 Eos % 1.2 % Normal 0.0-3.0 Baso % 0.6 % Normal 0.0-1.0 Immature Granulocyte % 0.3 % Normal 0-3.0 Nucleated Red Blood Cell % 0.0 % Normal 0-0 Neutrophils # 2.6 10 Normal 1.5-8.5 Lymph # 0.3 10 Low 1.5-5.0 [place] # 0.4 10 Normal 0.0-0.8 Eos # 0.0 10 Normal 0.0-0.5 Baso # 0.0 10 Normal 0.0-0.2 Laboratory test finding 03/10/2021 [place] [address] [phone] Carcinoembryonic Antigen < 0.5 NG/ML Normal <2.5 28 Ferritin 492 NG/ML High 8-252 Comprehensive Metabolic Profil 03/10/2021 [place] [address] [phone] Glucose, Fasting 166 mg/dL High 70-100 Blood [...] Total Iron Binding Capacit 03/10/2021 [place] [address] [phone] Iron (Fe) 72 g/dL Normal 50-170 Total Iron Binding Capacity 352 g/dL Normal 250-450 Percent Saturation 20.5 % Normal 13.2-45.0 Laboratory test finding 02/28/2021 [place] [address] [phone] Packed Cells TRANSFUSED PRODU <SEE NOTE> 30 Type & Screen -Incl Blood Type,Tye,AB SC 02/28/2021 [place] [address] [phone] Blood Type O POSITIVE Normal AB Screen (Indirect Farooq)Vis NEGATIVE Normal Laboratory test finding 02/27/2021 [place] [address] [phone] Blood Urea Nitrogen 26 mg/dL High 7-18 Creatinine With GFR 02/27/2021 [place] [address] [phone] Creatinine For GFR 0.76 mg/dL Normal 0.55-1.30 Glomerular Filtration Rate > 60.0 Normal >32 3 1 Total Iron Binding Capacit 02/27/2021 [place] [address] [phone] Iron (Fe) 79 g/dL Normal 50-170 Total Iron Binding Capacity 384 g/dL Normal 250-450 Percent Saturation 20.6 % Normal 13.2-45.0 Laboratory test finding 02/27/2021 [place] [address] [phone] Ferritin 1039 NG/ML High 8-252 CBC With Differential 02/27/2021 [place] [address] [phone] White Blood Count 6.0 10 Normal 4.0-10.0 [...] 36.0-66.0 Lymph % 4.7 % Low 24.0-44.0 [place] % 11.6 % High 2.0-8.0 Eos % 0.5 % Normal 0.0-3.0 Baso % 0.3 % Normal 0.0-1.0 Immature Granulocyte % 0.8 % Normal 0-3.0 Nucleated Red Blood Cell % 0.3 % High 0-0 Neutrophils # 4.9 10 Normal 1.5-8.5 Lymph # 0.3 10 Low 1.5-5.0 [place] # 0.7 10 Normal 0.0-0.8 Eos # 0.0 10 Normal 0.0-0.5 Baso # 0.0 10 Normal 0.0-0.2 Laboratory test finding 02/10/2021 [place] [address] [phone] Packed Cells TRANSFUSED PRODU <SEE NOTE> 32 Type & Screen -Incl Blood Type,Tye,AB SC 02/10/2021 [facility] [place] 3667967 [phone] Blood Type O POSITIVE Normal AB Screen (Indirect Farooq)Vis NEGATIVE Normal CBC With Differential 02/09/2021 [place] [address] [phone] White Blood Count 3.9 10 Low 4.0-10.0 [...] 36.0-66.0 Lymph % 7.2 % Low 24.0-44.0 [place] % 10.0 % High 2.0-8.0 Eos % 1.0 % Normal 0.0-3.0 Baso % 0.5 % Normal 0.0-1.0 Immature Granulocyte % 0.5 % Normal 0-3.0 Nucleated Red Blood Cell % 0.0 % Normal 0-0 Neutrophils # 3.1 10 Normal 1.5-8.5 Lymph # 0.3 10 Low 1.5-5.0 [place] # 0.4 10 Normal 0.0-0.8 Eos # 0.0 10 Normal 0.0-0.5 Baso # 0.0 10 Normal 0.0-0.2 CBC With Differential 01/27/2021 [place] [address] [phone] White Blood Count 4.2 10 Normal 4.0-10.0 [...] 36.0-66.0 Lymph % 13.6 % Low 24.0-44.0 [place] % 14.6 % High 2.0-8.0 Eos % 1.4 % Normal 0.0-3.0 Baso % 0.5 % Normal 0.0-1.0 Immature Granulocyte % 0.5 % Normal 0-3.0 Nucleated Red Blood Cell % 0.0 % Normal 0-0 Neutrophils # 2.9 10 Normal 1.5-8.5 Lymph # 0.6 10 Low 1.5-5.0 [place] # 0.6 10 Normal 0.0-0.8 Eos # 0.1 10 Normal 0.0-0.5 Baso # 0.0 10 Normal 0.0-0.2 Comprehensive Metabolic Profil 01/27/2021 Patient S [place] [id number] [phone] Glucose, Fasting 59 mg/dL Low 70-100 Blood [...] Iron Binding Capacit 01/27/2021 [place] [address] [phone] Iron (Fe) 59 g/dL Normal 50-170 Total Iron Binding Capacity 397 g/dL Normal 250-450 Percent Saturation 14.9 % Normal 13.2-45.0 Laboratory test finding 01/27/2021 [place] [address] [phone] Ferritin 39 NG/ML Normal 8-252 Carcinoembryonic Antigen 0.5 NG/ML Normal <2.5 34 Type & Screen -Incl Blood Type,Tye,AB SC 01/20/2021 [place] [address] [phone] Blood Type O POSITIVE Normal AB Screen (Indirect Farooq)Vis NEGATIVE Normal Laboratory test finding 01/20/2021 [place] [address] [phone] Blood Urea Nitrogen 21 mg/dL High 7-18 Complete Blood Count 01/20/2021 [place] [address] [phone] White Blood Count 3.3 10 Low 4.0-10.0 [...] With GFR 01/20/2021 [facility] [place] 3667974 [phone] Creatinine For GFR 0.69 mg/dL Normal 0.55-1.30 Glomerular Filtration Rate > 60.0 Normal >32 3 5 Coronavirus 2019 Nasopharygeal 01/16/2021 Patient S ervice Center [place] 3667946 [phone] Coronavirus 2019 Nasopharygeal ASSAY INFORMATIO <SEE N OTE> 36 Type & Screen -Incl Blood Type,Tye,AB SC 01/03/2021 [place] [address] [phone] Blood Type O POSITIVE Normal AB Screen (Indirect [place]ooq)Vis NEGATIVE Normal Laboratory test finding 01/03/2021 [place] [address] [phone] Packed Cells TRANSFUSED PRODU <SEE NOTE> 37 CBC With Differential 01/02/2021 [place] [address] [phone] White Blood Count 4.3 10 Normal 4.0-10.0 [...] 36.0-66.0 Lymph % 10.7 % Low 24.0-44.0 [place] % 13.1 % High 2.0-8.0 Eos % 0.7 % Normal 0.0-3.0 Baso % 0.5 % Normal 0.0-1.0 Immature Granulocyte % 0.5 % Normal 0-3.0 Nucleated Red Blood Cell % 0.0 % Normal 0-0 Neutrophils # 3.2 10 Normal 1.5-8.5 Lymph # 0.5 10 Low 1.5-5.0 [place] # 0.6 10 Normal 0.0-0.8 Eos # 0.0 10 Normal 0.0-0.5 Baso # 0.0 10 Normal 0.0-0.2 Comprehensive Metabolic Profil 01/02/2021 [place] [address] [phone] Glucose, Fasting 155 mg/dL High 70-100 Blood [...] Total Iron Binding Capacit 01/02/2021 [place] [address] [phone] Iron (Fe) 55 g/dL Normal 50-170 Total Iron Binding Capacity 398 g/dL Normal 250-450 Percent Saturation 13.8 % Normal 13.2-45.0 Laboratory test finding 01/02/2021 [place] [address] [phone] Thyroid Stimulating Hormone 1.660 uIU/ML Normal 0. 358-3.740 Free T4 0.87 ng/dL Normal 0.76-1.46 Ferritin 58 NG/ML Normal 8-252 Istat Chem8+ Panel 12/23/2020 [place] [address] [phone] iSTAT HCT 33.0 % Low 38.0-51.0 iSTAT Glucose 94 mg/dL Normal 70-105 iSTAT Sodium 138 mEq/L Normal 136-145 iSTAT Potassium 4.2 mEq/L Normal 3.5-5.1 iSTAT CA++ 5.0 mg/dL Normal 4.5-5.3 iSTAT Chloride 102 mEq/L Normal 98-109 iSTAT Co2 27.0 MM/L Normal 23.0-27.0 iSTAT BUN 20 mg/dL Normal 8-26 iSTAT Creatinine 0.7 mg/dL Normal 0.6-1.3 Laboratory test finding 12/23/2020 [place] [address] [phone] Lipase 73 U/L Normal 73-393 Lactic Acid Sepsis Protocol 0.8 mmol/L Normal 0.4-2.0 39 Liver Profile 12/23/2020 [place] [address] [phone] Ast/Sgot 13 U/L Normal 7-37 Alt/SGPT 14 U/L Normal 12-78 Alkaline Phosphatase 95 U/L Normal 45-117 Bilirubin,Total 0.9 mg/dL Normal 0.2-1.0 Bilirubin,Direct 0.3 mg/dL High 0.0-0.2 Total Protein 6.5 GM/DL Normal 6.4-8.2 Albumin 3.4 GM/DL Normal 3.2-5.2 Albumin/Globulin Ratio 1.1 Low 1.2-2.2 PT & Aptt 12/23/2020 [place] [address] [phone] Prothrombin Time 13.3 seconds Normal 12.5-14.3 Inr 0.99 Normal 40 Partial Thromboplastin Time 29.5 seconds Normal 24.2-38.5 CBC With Differential 12/23/2020 [place] [address] [phone] White Blood Count 4.5 10 Normal 4.0-10.0 [...] 36.0-66.0 Lymph % 9.7 % Low 24.0-44.0 [place] % 11.9 % High 2.0-8.0 Eos % 0.9 % Normal 0.0-3.0 Baso % 0.4 % Normal 0.0-1.0 Immature Granulocyte % 0.4 % Normal 0-3.0 Nucleated Red Blood Cell % 0.0 % Normal 0-0 Neutrophils # 3.5 10 Normal 1.5-8.5 Lymph # 0.4 10 Low 1.5-5.0 [place] # 0.5 10 Normal 0.0-0.8 Eos # 0.0 10 Normal 0.0-0.5 Baso # 0.0 10 Normal 0.0-0.2 Laboratory test finding 12/23/2020 [place] [address] [phone] iSTAT Troponin 0.01 NG/ML Normal 0.00-0.08 CBC With Differential 12/19/2020 [place] [address] [phone] White Blood Count 3.8 10 Low 4.0-10.0 [...] 36.0-66.0 Lymph % 11.7 % Low 24.0-44.0 [place] % 11.9 % High 2.0-8.0 Eos % 1.1 % Normal 0.0-3.0 Baso % 0.3 % Normal 0.0-1.0 Immature Granulocyte % 0.5 % Normal 0-3.0 Nucleated Red Blood Cell % 0.0 % Normal 0-0 Neutrophils # 2.8 10 Normal 1.5-8.5 Lymph # 0.4 10 Low 1.5-5.0 [place] # 0.5 10 Normal 0.0-0.8 Eos # 0.0 10 Normal 0.0-0.5 Baso # 0.0 10 Normal 0.0-0.2 CBC With Differential 12/05/2020 [place] [address] [phone] White Blood Count 3.4 10 Low 4.0-10.0 [...] 36.0-66.0 Lymph % 12.8 % Low 24.0-44.0 [place] % 13.7 % High 2.0-8.0 Eos % 1.2 % Normal 0.0-3.0 Baso % 0.6 % Normal 0.0-1.0 Immature Granulocyte % 0.3 % Normal 0-3.0 Nucleated Red Blood Cell % 0.0 % Normal 0-0 Neutrophils # 2.4 10 Normal 1.5-8.5 Lymph # 0.4 10 Low 1.5-5.0 [place] # 0.5 10 Normal 0.0-0.8 Eos # 0.0 10 Normal 0.0-0.5 Baso # 0.0 10 Normal 0.0-0.2 PT & Aptt 12/05/2020 [place] [address] [phone] Prothrombin Time 13.3 seconds Normal 12.5-14.3 Inr 0.99 Normal 41 Partial Thromboplastin Time 29.4 seconds Normal 24.2-38.5 Total Iron Binding Capacit 12/05/[address] [place] [address] [phone] Iron (Fe) 94 g/dL Normal 50-170 Total Iron Binding Capacity 350 g/dL Normal 250-450 Percent Saturation 26.9 % Normal 13.2-45.0 Laboratory test finding 12/05/2020 [place] [address] [phone] Ferritin 108 NG/ML Normal 8-252 1 TRANSFUSED PRODUCT: PACKED C ELLS COUNT: 1 2 TRANSFUSED PRODUCT: PACKED C ELLS COUNT: [...] developed and its performance characteristics determined by [email or web address]. It has not been cleared or approved [...] cofactor activity; FVIII - factor VIII activity. [employer]: For questions regarding panel interpretation, please contact Mikal Wasserman M.D. at [employer] at . DISCLAIMER These assessments and interpretations [...] (1) The National Heart, Lung and Blood [place]. The Diagnosis, Evaluation and Management of von Willebrand Disease. [place], [place]: National Institutes of Health Publication 08-5832. 2007. Available at http://www.nhlbi.nih.gov/guidelines/vwd/. (2) Tayo WL et al. Am J Hematol. 2009; 84(6):366-370. (3) Pam Domingo et al. Haemophilia. 2004;10(3):199-217. (4) Lety WOODRUFF et al. Haemophilia. 2004; 10(3):218-231. 10 Performed at: [address] [id number] [place]: Matt Mcdonnell MD, Phone: [phone] Performed at: [facility] [address] [place], [place], [place] [id number] [place]: Gary Youngblood MD, Phone: [phone] Performed at: - [facility] [address] [id number] [place] Man: Teresa Nguyen MD, Phone: [phone] 11 UNABLE TO PERFORM TEST DUE T O hct <35% 12 THERAPUTIC HUMAN INR VALUES INDICATIONS NORMAL RANGES PROPHYLAXIS/TREATMENT OF: VENOUS THROMBOSIS 2.0-3.0 PULMONARY EMBOLISM 2.0-3.0 PREVENTION OF SYSTEMIC EMBOLISM FROM: TISSUE HEART VALVES 2.0-3.0 ACUTE MYOCARDIAL INFARCTION 2.0-3.0 VALVULAR HEART DISEASE 2.0-3.0 ATRIAL FIBRILLATION 2.0-3.0 MECHANICAL VALVES(HIGH RISK) 2.5-3.5 RECURRENT MYOCARDIAL INFARCTION 2.5-3.5 13 ASSAY INFORMATION: Real Time RT-PCR or TMA. Both RT-PCR and TMA are nucleic acid amplification tests (NAAT) which are molecular testing modalities and recommended by the CDC for passenger travel. Testing and International Air Travel, cdc.gov/coronavirus/2019-ncov/travelers/diokwxa-oly-nylfxg.html 09/01/2020 NOTE: The COVID-19 assay is under Emergency Use Authorization (EUA) by the U.S. Food and Drug Administration. [facility] and [facility] are designated as high complexity laboratories by the Clinical Laboratory Improvement Amendments of 1988 (CLIA) and are qualified to perform this test. Not Detected 14 Units are mL/min/1.73 m2 Chronic Kidney Disease Staging per NKF: Stage I & II GFR >=60 Normal to Mildly Decreased Stage III GFR 30-59 Moderately Decreased Stage IV GFR 15-29 Severely Decreased Stage V GFR <15 Very Little GFR Left ESRD GFR <[address]ARTER 15 THE CEA ASSAY IS PERFORMED O N THE The car easily beatAUR BY CHEMILUMINESCENCE AND SHOULD NOT BE COMPARED INTERCHANGEABLY WITH OTHER METHODS. IT SHOULD NOT BE USED ALONE A SCREENING TEST OR DIAGNOSIS FOR THE PRESENCE OR ABSENCE OF MALIGNANT DISEASE. PREDICTIONS OF DISEASE RECURRENCE SHOULD NOT BE BASED SOLELY ON VALUES OBTAINED FROM SERIAL PATIENT SERUM VALUES. 16 TRANSFUSED PRODUCT: PACKED C ELLS COUNT: 3 17 Units are mL/min/1.73 m2 Chronic Kidney Disease Staging per NKF: Stage I & II GFR >=60 Normal to Mildly Decreased Stage III GFR 30-59 Moderately Decreased Stage IV GFR 15-29 Severely Decreased Stage V GFR <15 Very Little GFR Left ESRD GFR <[address] STARTER 18 TRANSFUSED PRODUCT: PACKED C ELLS COUNT: 1 19 Negative results do not prec lude [...] pathogens. DISCLAIMER: Testing was performed using the [facility] SARS-CoV-2 test. This test was developed and its performance characteristics determined by [facility]. This test has not been FDA cleared [...] authorization is terminated or revoked sooner. 23 [facility] currently reports eGFR in compliance [...] Little GFR Left ESRD GFR <[address] STARTER 30 TRANSFUSED PRODUCT: PACKED C ELLS COUNT: 2 31 Units are mL/min/1.73 m2 Chronic Kidney Disease Staging per NKF: Stage I & II GFR >=60 Normal to Mildly Decreased Stage III GFR 30-59 Moderately Decreased Stage IV GFR 15-29 Severely Decreased Stage V GFR <15 Very Little GFR Left ESRD GFR <[address] STARTER 32 TRANSFUSED PRODUCT: PACKED C ELLS COUNT: 2 33 Units are mL/min/1.73 m2 Chronic Kidney Disease Staging per NKF: Stage I & II GFR >=60 Normal to Mildly Decreased Stage III GFR 30-59 Moderately Decreased Stage IV GFR 15-29 Severely Decreased Stage V GFR <15 Very Little GFR Left ESRD GFR <15 on [address] STARTER 34 THE CEA ASSAY IS PERFORMED O [...] Little GFR Left ESRD GFR <15 [address] STARTER 36 ASSAY INFORMATION: Real Time RT-PCR NOTE: The COVID-19 assay has been cleared by the U.S. Food and Drug Administration under the Emergency Use Authorization (EUA). [facility] are designated as high complexity laboratories by [...] Little GFR Left ESRD GFR <[address] STARTER 39 Y/N query for Sepsis Lactate Rule: [...] 2.5-3.5 Procedures Date Code Description Status 03/28/2021 [id number] [place] W/I 7 Days Of DC, Comm W/I 2 Dys Completed 03/23/2021 [id number] Office/Outpatient Established Mo d MDM 30-39 Min Completed 03/23/2021 [id number] Diabetic Foot Exam Completed 01/25/2021 [id number] [place] W/I 7 Days Of DC, Comm W/I 2 Dys Completed 12/27/2020 [id number] Office/Outpatient Established Mo d MDM 30-39 Min Completed 12/19/2020 [id number] Office/Outpatient Established Mo d MDM 30-39 Min Completed 12/02/2020 [id number] [place] W/I 7 Days Of DC, Comm W/I 2 Dys Completed Medical Devices Description No Information Available Encounters Type Date Location Provider Dx Diagnosis Office Visit 03/28/2021 11:45a Main Office Nadiya Bryan FNP D64.9 Anemia, unspecified K29.61 Other gastritis with bleedin g Office Visit 03/23/2021 3:45p Main Office Nadiya Bryan, INGREDIENT MIXER E11.6 9 Type 2 diabetes mellitus with other specified complication C18.9 Malignant neoplasm of colon, unspecified Z93.2 Ileostomy status E78.2 Mixed hyperlipidemia I10 Essential (primary) hyperten yara I48.91 Unspecified atrial fibrillat ion D64.9 Anemia, unspecified Office Visit 01/25/2021 2:15p Main Office Nadiya Bryan, INGREDIENT MIXER D64.9 Anemia, unspecified K29.61 Other gastritis with bleedin g Office Visit 12/27/2020 3:45p Main Office Anitha Gamez M.D. 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 D64.9 Anemia, unspecified Office Visit 12/19/2020 2:15p Main Office Nadiya Bryan INGREDIENT MIXER E11.6 9 Type 2 diabetes mellitus with other specified complication E78.2 Mixed hyperlipidemia I10 Essential (primary) hyperten yara Z93.2 Ileostomy status C18.9 Malignant neoplasm of colon, unspecified I48.91 Unspecified atrial fibrillat ion Office Visit 12/02/2020 10:30a Main Office Nadiya Bryan, INGREDIENT MIXER D64.9 Anemia, unspecified E11.69 Type 2 diabetes mellitus wit h other specified complication E78.2 Mixed hyperlipidemia I10 Essential (primary) hyperten yara Z93.2 Ileostomy status C18.9 Malignant neoplasm of colon, unspecified I48.91 Unspecified atrial fibrillat ion Assessments Date Code Description Provider 03/28/2021 D64.9 Anemia, unspecified Pleskach, Mo lly, INGREDIENT MIXER 03/28/2021 K29.61 Other gastritis with bleeding Pl Nadiya hogan, INGREDIENT MIXER 03/23/2021 E11.69 Type 2 diabetes mellitus with ot her specified complication Pleskach, Nadiya, INGREDIENT MIXER 03/23/2021 C18.9 Malignant neoplasm of colon, uns pecified Pleskach, Nadiya, INGREDIENT MIXER 03/23/2021 Z93.2 Ileostomy status Pleskach, Nadiya , INGREDIENT MIXER 03/23/2021 E78.2 Mixed hyperlipidemia Pleskach, M jarocho, INGREDIENT MIXER 03/23/2021 I10 Essential (primary) hypertension Pleskach, Nadiya, INGREDIENT MIXER 03/23/2021 I48.91 Unspecified atrial fibrillation Pleskach, Nadiya, INGREDIENT MIXER 03/23/2021 D64.9 Anemia, unspecified Pleskach, Mo lly, INGREDIENT MIXER 01/25/2021 D64.9 Anemia, unspecified Pleskach, Mo lly, INGREDIENT MIXER 01/25/2021 K29.61 Other gastritis with bleeding Pl Nadiya hogan, INGREDIENT MIXER 12/27/2020 E11.69 Type 2 diabetes mellitus with ot her specified complication Anitha Gamez M.D. 12/27/2020 C18.9 Malignant neoplasm of colon, uns pecified Anitha Gamez M.D. 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 12/27/2020 D64.9 Anemia, unspecified Angela Gamez M.D. 12/19/2020 E11.69 Type 2 diabetes mellitus with ot her specified complication Pleskach, Nadiya, INGREDIENT MIXER 12/19/2020 E78.2 Mixed hyperlipidemia Pleskach, M jarocho, INGREDIENT MIXER 12/19/2020 I10 Essential (primary) hypertension Pleskach, Nadiya, INGREDIENT MIXER 12/19/2020 Z93.2 Ileostomy status Pleskach, Nadiya , INGREDIENT MIXER 12/19/2020 C18.9 Malignant neoplasm of colon, uns pecified Pleskach, Nadiya, INGREDIENT MIXER 12/19/2020 I48.91 Unspecified atrial fibrillation Nadiya Bryan, INGREDIENT MIXER 12/02/2020 D64.9 Anemia, unspecified RandiDeejay, INGREDIENT MIXER 12/02/2020 E11.69 Type 2 diabetes mellitus with ot her specified complication Nadiya Bryan, INGREDIENT MIXER 12/02/2020 E78.2 Mixed hyperlipidemia PleChayo traceyly, INGREDIENT MIXER 12/02/2020 I10 Essential (primary) hypertension Nadiya Bryan, INGREDIENT MIXER 12/02/2020 Z93.2 Ileostomy status Nadiya Bryan , INGREDIENT MIXER 12/02/2020 C18.9 Malignant neoplasm of colon, uns pecified Nadiya Bryan, INGREDIENT MIXER 12/02/2020 I48.91 Unspecified atrial fibrillation Nadiya Bryan [...] to Reason for Referral Status Appt Date [facility] nose bleed. Sent [phone] [facility], [address] [phone]
--- OUTSIDE RECORDS SUMMARY | 2021-06-19 13:40 | CCD | Continuity of Care Document ---
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 AUTM [phone] [facility] AUTM [phone] Jeff Cramer AUTM [phone] Problems Active Problems Provider Date Type 2 [...] 236units C18.9 Nadiya Bryan FNP 06/16/2020 Z93.2 [place] Remover Wipes Misc use 3-4 wipes every 4 days and as needed when changing ostomy 2Box Z93.2 Nadiya Bryan FNP 06/16/2020 C18.9 Efren Adapt Ceraing change every 4-5 days and as needed ref #[id number] 05 20units Nadiya Bryan FNP 05/05/2020 Shafter 2 Piece Ostomy Skin Barrier ref # [id number] márquez ge every 4-5 days and as needed 20units C18.9 Nadiya Bryan FNP 04/14/2020 Z93.2 Shafter 2 Piece Drainable Ostomy Pouch ref # 13841 c hange every 4-5 days and as [...] CPT Code Status Date Vaccine Lot # [id number] Refused 04/17/2016 Pneumococcal Vaccine 87136 Refused 04/17/2016 Prevnar 13 03908 Refused 04/17/2016 Influenza Vaccination Vital Signs Date Vital Result Comment 03/28/2021 11:51am BP Systolic 113 mmHg BP Diastolic 83 mmHg Heart Rate 127 /min Body Temperature 98.0 F Respiratory Rate 18 /min Height 61.5 inches 5'1.50" Weight 114.38 lb O2 % BldC Oximetry 100 % Smoot Body Weight 105 lb BMI (Body Mass Index) 21.3 kg/m2 03/23/2021 3:47pm BP Systolic 110 mmHg BP Diastolic 62 mmHg Heart Rate 64 /min Body Temperature 98.7 F Respiratory Rate 16 /min Height 61.5 inches 5'1.50" Weight 116.38 lb O2 % BldC Oximetry 99 % Smoot Body Weight 105 lb BMI (Body Mass Index) 21.6 kg/m2 Results Test Acquired Date Facility Test Result H/L Range Note Laboratory test finding 05/31/2021 [facility] [place] [address] [phone] Packed Cells TRANSFUSED PRODU <SEE NOTE> 1 CBC With Differential 05/31/2021 [place] [address] [phone] White Blood Count 4.9 10 Normal 4.0-10.0 [...] 36.0-66.0 Lymph % 6.5 % Low 24.0-44.0 [place] % 11.0 % High 2.0-8.0 Eos % 1.8 % Normal 0.0-3.0 Baso % 0.6 % Normal 0.0-1.0 Immature Granulocyte % 0.8 % Normal 0-3.0 Nucleated Red Blood Cell % 0.0 % Normal 0-0 Neutrophils # 3.9 10 Normal 1.5-8.5 Lymph # 0.3 10 Low 1.5-5.0 [place] # 0.5 10 Normal 0.0-0.8 Eos # 0.1 10 Normal 0.0-0.5 Baso # 0.0 10 Normal 0.0-0.2 Laboratory test finding 05/24/2021 [place] [address] [phone] Packed Cells TRANSFUSED PRODU <SEE NOTE> 2 CBC With Differential 05/24/2021 [place] [address] [phone] White Blood Count 5.2 10 Normal 4.0-10.0 [...] 36.0-66.0 Lymph % 4.2 % Low 24.0-44.0 [place] % 11.7 % High 2.0-8.0 Eos % 1.9 % Normal 0.0-3.0 Baso % 0.6 % Normal 0.0-1.0 Immature Granulocyte % 0.6 % Normal 0-3.0 Nucleated Red Blood Cell % 0.0 % Normal 0-0 Neutrophils # 4.2 10 Normal 1.5-8.5 Lymph # 0.2 10 Low 1.5-5.0 [place] # 0.6 10 Normal 0.0-0.8 Eos # 0.1 10 Normal 0.0-0.5 Baso # 0.0 10 Normal 0.0-0.2 Type & Screen -Incl Blood Type,Tye,AB SC 05/24/2021 [place] [address] [phone] Blood Type O POSITIVE Normal AB Screen (Indirect Farooq)Vis NEGATIVE Normal CBC With Differential 05/17/2021 [place] [address] [phone] White Blood Count 4.6 10 Normal 4.0-10.0 [...] 36.0-66.0 Lymph % 5.7 % Low 24.0-44.0 [place] % 11.3 % High 2.0-8.0 Eos % 1.7 % Normal 0.0-3.0 Baso % 0.4 % Normal 0.0-1.0 Immature Granulocyte % 0.4 % Normal 0-3.0 Nucleated Red Blood Cell % 0.0 % Normal 0-0 Neutrophils # 3.7 10 Normal 1.5-8.5 Lymph # 0.3 10 Low 1.5-5.0 [place] # 0.5 10 Normal 0.0-0.8 Eos # 0.1 10 Normal 0.0-0.5 Baso # 0.0 10 Normal 0.0-0.2 Type & Screen -Incl Blood Type,Tye,AB SC 05/17/2021 [place] [address] [phone] Blood Type O POSITIVE Normal AB Screen (Indirect Farooq)Vis NEGATIVE Normal Laboratory test finding 05/17/2021 [place] [address] [phone] Packed Cells TRANSFUSED PRODU <SEE NOTE> 3 CBC With Differential 05/10/2021 [place] [address] [phone] White Blood Count 5.2 10 Normal 4.0-10.0 [...] 36.0-66.0 Lymph % 4.8 % Low 24.0-44.0 [place] % 8.7 % High 2.0-8.0 Eos % 1.2 % Normal 0.0-3.0 Baso % 0.4 % Normal 0.0-1.0 Immature Granulocyte % 0.6 % Normal 0-3.0 Nucleated Red Blood Cell % 0.0 % Normal 0-0 Neutrophils # 4.4 10 Normal 1.5-8.5 Lymph # 0.3 10 Low 1.5-5.0 [place] # 0.5 10 Normal 0.0-0.8 Eos # 0.1 10 Normal 0.0-0.5 Baso # 0.0 10 Normal 0.0-0.2 CBC With Differential 05/08/2021 [place] [address] [phone] White Blood Count 4.8 10 Normal 4.0-10.0 [...] 36.0-66.0 Lymph % 5.2 % Low 24.0-44.0 [place] % 11.2 % High 2.0-8.0 Eos % 1.4 % Normal 0.0-3.0 Baso % 0.4 % Normal 0.0-1.0 Immature Granulocyte % 0.4 % Normal 0-3.0 Nucleated Red Blood Cell % 0.0 % Normal 0-0 Neutrophils # 3.9 10 Normal 1.5-8.5 Lymph # 0.3 10 Low 1.5-5.0 [place] # 0.5 10 Normal 0.0-0.8 Eos # 0.1 10 Normal 0.0-0.5 Baso # 0.0 10 Normal 0.0-0.2 Type & Screen -Incl Blood Type,Tye,AB SC 05/08/2021 [place] [address] [phone] Blood Type O POSITIVE Normal AB Screen (Indirect Farooq)Vis NEGATIVE Normal Laboratory test finding 05/08/2021 [place] [address] [phone] Packed Cells TRANSFUSED PRODU <SEE NOTE> 4 Occult Blood 05/08/2021 [place] [address] [phone] Occult Blood OCCULT BLOOD 1 <SEE NOTE> Abnormal 5 Retic (Reticulocyte Count) 05/05/2021 [place] [address] [phone] Reticulocyte % 5.9 % High 0.5-1.5 Reticulocyte # 119.8 10 High 17-77 Retic Hemoglobin Equivalent 30.7 pg Normal 24-36 Laboratory test finding 05/05/2021 [place] [address] [phone] Packed Cells TRANSFUSED PRODU <SEE NOTE> 6 Type & Screen -Incl Blood Type,Tye,AB SC 05/05/2021 [place] [address] [phone] Blood Type O POSITIVE Normal AB Screen (Indirect Farooq)Vis NEGATIVE Normal CBC With Differential 05/05/2021 Patient Service Ce [facility]ter [place] [id number] [phone] White Blood Count 5.1 10 Normal 4.0-10.0 [...] 36.0-66.0 Lymph % 6.3 % Low 24.0-44.0 [place] % 11.5 % High 2.0-8.0 Eos % 0.8 % Normal 0.0-3.0 Baso % 0.4 % Normal 0.0-1.0 Immature Granulocyte % 0.6 % Normal 0-3.0 Nucleated Red Blood Cell % 0.0 % Normal 0-0 Neutrophils # 4.1 10 Normal 1.5-8.5 Lymph # 0.3 10 Low 1.5-5.0 [place] # 0.6 10 Normal 0.0-0.8 Eos # 0.0 10 Normal 0.0-0.5 Baso # 0.0 10 Normal 0.0-0.2 Factor VIII Panel 05/05/2021 [place] [address] [phone] F8 Activity For F8 Panel 214 % High 56-140 7 F8 Antigen For F8 Panel 115 % Normal 50-200 8 F8 Activity vWB For F8 Panel 71 % Normal 50-200 Interpretation: Note Normal . 9 Laboratory test finding 05/05/2021 [place] [address] [phone] LDH Lactate Dehydrogenase 128 U/L Normal 84-246 Haptoglobin 214 mg/dL Normal 41-333 10 Platelet Function Analysis 05/05/2021 [place] [address] [phone] Collagen Epinephrine TNP seconds Normal 74-162 11 Laboratory test finding 05/05/2021 [place] [address] [phone] Partial Thromboplastin Time 24.9 seconds Low 25 .9-37.0 Prothrombin Time/Inr 05/05/2021 [place] [address] [phone] Prothrombin Time 14.0 seconds Normal 12.7-14.5 Inr 1.04 Normal 12 CBC With Differential 04/27/2021 [place] [address] [phone] White Blood Count 4.2 10 Normal 4.0-10.0 [...] 36.0-66.0 Lymph % 8.1 % Low 24.0-44.0 [place] % 12.8 % High 2.0-8.0 Eos % 1.0 % Normal 0.0-3.0 Baso % 0.2 % Normal 0.0-1.0 Immature Granulocyte % 0.5 % Normal 0-3.0 Nucleated Red Blood Cell % 0.0 % Normal 0-0 Neutrophils # 3.3 10 Normal 1.5-8.5 Lymph # 0.3 10 Low 1.5-5.0 [place] # 0.5 10 Normal 0.0-0.8 Eos # 0.0 10 Normal 0.0-0.5 Baso # 0.0 10 Normal 0.0-0.2 CBC With Differential 04/20/2021 [place] [address] [phone] White Blood Count 3.9 10 Low 4.0-10.0 [...] 36.0-66.0 Lymph % 8.8 % Low 24.0-44.0 [place] % 11.9 % High 2.0-8.0 Eos % 1.0 % Normal 0.0-3.0 Baso % 0.5 % Normal 0.0-1.0 Immature Granulocyte % 0.8 % Normal 0-3.0 Nucleated Red Blood Cell % 0.0 % Normal 0-0 Neutrophils # 3.0 10 Normal 1.5-8.5 Lymph # 0.3 10 Low 1.5-5.0 [place] # 0.5 10 Normal 0.0-0.8 Eos # 0.0 10 Normal 0.0-0.5 Baso # 0.0 10 Normal 0.0-0.2 CBC With Differential 04/12/2021 Patient Service [place] [id number] [phone] White Blood Count 4.6 10 Normal 4.0-10.0 [...] 36.0-66.0 Lymph % 6.6 % Low 24.0-44.0 [place] % 9.4 % High 2.0-8.0 Eos % 0.9 % Normal 0.0-3.0 Baso % 0.2 % Normal 0.0-1.0 Immature Granulocyte % 0.4 % Normal 0-3.0 Nucleated Red Blood Cell % 0.0 % Normal 0-0 Neutrophils # 3.8 10 Normal 1.5-8.5 Lymph # 0.3 10 Low 1.5-5.0 [place] # 0.4 10 Normal 0.0-0.8 Eos # 0.0 10 Normal 0.0-0.5 Baso # 0.0 10 Normal 0.0-0.2 Coronavirus 2019 Nasopharygeal 04/10/2021 [place], [place] [id number] [phone] Coronavirus 2019 Nasopharygeal ASSAY INFORMATIO <SEE N OTE> 13 Comprehensive Metabolic Profil 04/07/2021 [place] [address] [phone] Glucose, Fasting 184 mg/dL High 70-100 Blood [...] Iron Binding Capacit 04/07/2021 [place] [address] [phone] Iron (Fe) 48 g/dL Low 50-170 Total Iron Binding Capacity 353 g/dL Normal 250-450 Percent Saturation 13.6 % Normal 13.2-45.0 Laboratory test finding 04/07/2021 [place] [address] [phone] Carcinoembryonic Antigen < 0.5 NG/ML Normal <2.5 15 Ferritin 66 NG/ML Normal 8-252 CBC With Differential 04/07/2021 [place] [address] [phone] White Blood Count 3.4 10 Low 4.0-10.0 [...] 36.0-66.0 Lymph % 8.5 % Low 24.0-44.0 [place] % 10.9 % High 2.0-8.0 Eos % 0.9 % Normal 0.0-3.0 Baso % 0.6 % Normal 0.0-1.0 Immature Granulocyte % 0.6 % Normal 0-3.0 Nucleated Red Blood Cell % 0.0 % Normal 0-0 Neutrophils # 2.7 10 Normal 1.5-8.5 Lymph # 0.3 10 Low 1.5-5.0 [place] # 0.4 10 Normal 0.0-0.8 Eos # 0.0 10 Normal 0.0-0.5 Baso # 0.0 10 Normal 0.0-0.2 Laboratory test finding 04/07/2021 [place] [address] [phone] Packed Cells TRANSFUSED PRODU <SEE NOTE> 16 Type & Screen -Incl Blood Type,Tye,AB SC 04/07/2021 [place] [address] [phone] Blood Type O POSITIVE Normal AB Screen (Indirect Farooq)Vis NEGATIVE Normal Comprehensive Metabolic Profil 03/24/2021 Patient S ervice Center [place], [place] [id number] [phone] Glucose, Fasting 96 mg/dL Normal 70-100 Blood [...] 1.2-2.2 CBC With Differential 03/24/2021 [place] [address] [phone] White Blood Count 4.6 10 Normal 4.0-10.0 [...] 36.0-66.0 Lymph % 6.2 % Low 24.0-44.0 [place] % 11.4 % High 2.0-8.0 Eos % 0.4 % Normal 0.0-3.0 Baso % 0.4 % Normal 0.0-1.0 Immature Granulocyte % 0.4 % Normal 0-3.0 Nucleated Red Blood Cell % 0.7 % High 0-0 Neutrophils # 3.7 10 Normal 1.5-8.5 Lymph # 0.3 10 Low 1.5-5.0 [place] # 0.5 10 Normal 0.0-0.8 Eos # 0.0 10 Normal 0.0-0.5 Baso # 0.0 10 Normal 0.0-0.2 Laboratory test finding 03/24/2021 [place] [address] [phone] Packed Cells TRANSFUSED PRODU <SEE NOTE> 18 Influenza A/B RSV Covid Amp 03/24/2021 [place] [address] [phone] Influenza A Amplification NEGATIVE Normal Negati ve 19 Influenza B Amplification NEGATIVE Normal Negative 20 RSV Amplification NEGATIVE Normal Negative 21 Sars Covid-19 Amplification NEGATIVE Normal Negative 22 Metabolic Panel (14), Comprehensive 03/17/2021 [facility] [address] [place] [address] [phone] Calcium 9.5 mg/dL 8.7-10.3 Glucose 81 mg/dL [...] IU/L 0-32 Lipid Panel 03/17/2021 [facility] [address] [place] [address] [phone] Cholesterol, Total 123 mg/dL 100-199 Triglycerides 141 mg/dL 0-149 HDL Cholesterol 37 mg/dL Low >39 VLDL Cholesterol Mark 25 mg/dL 5-40 LDL Chol Calc ([facility]) 61 mg/dL 0-99 Comment: TNP Hemoglobin A1c 03/17/2021 [facility] [address] [place] [address] [phone] Hemoglobin A1c 4.8 % 4.8-5.6 25 Albumin/Creatinine Ratio, Random Urine 03/17/2021 [facility] [address] [place] [id number] [phone] Creatinine, Urine 120.2 mg/dL Not Estab. Albumin, Urine 20.1 ug/mL Not Estab. Alb/Creat Ratio 17 mg/gcreat 0-29 26 Laboratory test finding 03/14/2021 [place] [address] [phone] Packed Cells TRANSFUSED PRODU <SEE NOTE> 27 Type & Screen -Incl Blood Type,Tye,AB SC 03/14/2021 [facility] [place] [id number] [phone] Blood Type O POSITIVE Normal AB Screen (Indirect Farooq)Vis NEGATIVE Normal CBC With Differential 03/14/2021 [place] [address] [phone] White Blood Count 4.0 10 Normal 4.0-10.0 [...] 36.0-66.0 Lymph % 6.8 % Low 24.0-44.0 [place] % 9.3 % High 2.0-8.0 Eos % 1.0 % Normal 0.0-3.0 Baso % 0.8 % Normal 0.0-1.0 Immature Granulocyte % 0.3 % Normal 0-3.0 Nucleated Red Blood Cell % 0.0 % Normal 0-0 Neutrophils # 3.3 10 Normal 1.5-8.5 Lymph # 0.3 10 Low 1.5-5.0 [place] # 0.4 10 Normal 0.0-0.8 Eos # 0.0 10 Normal 0.0-0.5 Baso # 0.0 10 Normal 0.0-0.2 CBC With Differential 03/10/2021 [place] [address] [phone] White Blood Count 3.4 10 Low 4.0-10.0 [...] 36.0-66.0 Lymph % 7.6 % Low 24.0-44.0 [place] % 12.9 % High 2.0-8.0 Eos % 1.2 % Normal 0.0-3.0 Baso % 0.6 % Normal 0.0-1.0 Immature Granulocyte % 0.3 % Normal 0-3.0 Nucleated Red Blood Cell % 0.0 % Normal 0-0 Neutrophils # 2.6 10 Normal 1.5-8.5 Lymph # 0.3 10 Low 1.5-5.0 [place] # 0.4 10 Normal 0.0-0.8 Eos # 0.0 10 Normal 0.0-0.5 Baso # 0.0 10 Normal 0.0-0.2 Laboratory test finding 03/10/2021 [place] [address] [phone] Carcinoembryonic Antigen < 0.5 NG/ML Normal <2.5 28 Ferritin 492 NG/ML High 8-252 Comprehensive Metabolic Profil 03/10/2021 [place] [address] [phone] Glucose, Fasting 166 mg/dL High 70-100 Blood [...] Total Iron Binding Capacit 03/10/2021 [place] [address] [phone] Iron (Fe) 72 g/dL Normal 50-170 Total Iron Binding Capacity 352 g/dL Normal 250-450 Percent Saturation 20.5 % Normal 13.2-45.0 Laboratory test finding 02/28/2021 [place] [address] [phone] Packed Cells TRANSFUSED PRODU <SEE NOTE> 30 Type & Screen -Incl Blood Type,Tye,AB SC 02/28/2021 [place] [address] [phone] Blood Type O POSITIVE Normal AB Screen (Indirect Farooq)Vis NEGATIVE Normal Laboratory test finding 02/27/2021 [place] [address] [phone] Blood Urea Nitrogen 26 mg/dL High 7-18 Creatinine With GFR 02/27/2021 [place] [address] [phone] Creatinine For GFR 0.76 mg/dL Normal 0.55-1.30 Glomerular Filtration Rate > 60.0 Normal >32 3 1 Total Iron Binding Capacit 02/27/2021 [place] [address] [phone] Iron (Fe) 79 g/dL Normal 50-170 Total Iron Binding Capacity 384 g/dL Normal 250-450 Percent Saturation 20.6 % Normal 13.2-45.0 Laboratory test finding 02/27/2021 [place] [address] [phone] Ferritin 1039 NG/ML High 8-252 CBC With Differential 02/27/2021 [place] [address] [phone] White Blood Count 6.0 10 Normal 4.0-10.0 [...] 36.0-66.0 Lymph % 4.7 % Low 24.0-44.0 [place] % 11.6 % High 2.0-8.0 Eos % 0.5 % Normal 0.0-3.0 Baso % 0.3 % Normal 0.0-1.0 Immature Granulocyte % 0.8 % Normal 0-3.0 Nucleated Red Blood Cell % 0.3 % High 0-0 Neutrophils # 4.9 10 Normal 1.5-8.5 Lymph # 0.3 10 Low 1.5-5.0 [place] # 0.7 10 Normal 0.0-0.8 Eos # 0.0 10 Normal 0.0-0.5 Baso # 0.0 10 Normal 0.0-0.2 Laboratory test finding 02/10/2021 [place] [address] [phone] Packed Cells TRANSFUSED PRODU <SEE NOTE> 32 Type & Screen -Incl Blood Type,Tye,AB SC 02/10/2021 [facility] [place] [id number] [phone] Blood Type O POSITIVE Normal AB Screen (Indirect Farooq)Vis NEGATIVE Normal CBC With Differential 02/09/2021 [place] [address] [phone] White Blood Count 3.9 10 Low 4.0-10.0 [...] 36.0-66.0 Lymph % 7.2 % Low 24.0-44.0 [place] % 10.0 % High 2.0-8.0 Eos % 1.0 % Normal 0.0-3.0 Baso % 0.5 % Normal 0.0-1.0 Immature Granulocyte % 0.5 % Normal 0-3.0 Nucleated Red Blood Cell % 0.0 % Normal 0-0 Neutrophils # 3.1 10 Normal 1.5-8.5 Lymph # 0.3 10 Low 1.5-5.0 [place] # 0.4 10 Normal 0.0-0.8 Eos # 0.0 10 Normal 0.0-0.5 Baso # 0.0 10 Normal 0.0-0.2 CBC With Differential 01/27/2021 [place] [address] [phone] White Blood Count 4.2 10 Normal 4.0-10.0 [...] 36.0-66.0 Lymph % 13.6 % Low 24.0-44.0 [place] % 14.6 % High 2.0-8.0 Eos % 1.4 % Normal 0.0-3.0 Baso % 0.5 % Normal 0.0-1.0 Immature Granulocyte % 0.5 % Normal 0-3.0 Nucleated Red Blood Cell % 0.0 % Normal 0-0 Neutrophils # 2.9 10 Normal 1.5-8.5 Lymph # 0.6 10 Low 1.5-5.0 [place] # 0.6 10 Normal 0.0-0.8 Eos # 0.1 10 Normal 0.0-0.5 Baso # 0.0 10 Normal 0.0-0.2 Comprehensive Metabolic Profil 01/27/2021 Patient S [place] [id number] [phone] Glucose, Fasting 59 mg/dL Low 70-100 Blood [...] Iron Binding Capacit 01/27/2021 [place] [address] [phone] Iron (Fe) 59 g/dL Normal 50-170 Total Iron Binding Capacity 397 g/dL Normal 250-450 Percent Saturation 14.9 % Normal 13.2-45.0 Laboratory test finding 01/27/2021 [place] [address] [phone] Ferritin 39 NG/ML Normal 8-252 Carcinoembryonic Antigen 0.5 NG/ML Normal <2.5 34 Type & Screen -Incl Blood Type,Tye,AB SC 01/20/2021 [place] [address] [phone] Blood Type O POSITIVE Normal AB Screen (Indirect Farooq)Vis NEGATIVE Normal Laboratory test finding 01/20/2021 [place] [address] [phone] Blood Urea Nitrogen 21 mg/dL High 7-18 Complete Blood Count 01/20/2021 [place] [address] [phone] White Blood Count 3.3 10 Low 4.0-10.0 [...] With GFR 01/20/2021 Patient Service [facility] [place] [id number] [phone] Creatinine For GFR 0.69 mg/dL Normal 0.55-1.30 Glomerular Filtration Rate > 60.0 Normal >32 3 5 Coronavirus 2019 Nasopharygeal 01/16/2021 Patient S ervice Center [place] 2743396 [phone] Coronavirus 2019 Nasopharygeal ASSAY INFORMATIO <SEE N OTE> 36 Type & Screen -Incl Blood Type,Tye,AB SC 01/03/2021 [place] [address] [phone] Blood Type O POSITIVE Normal AB Screen (Indirect Farooq)Vis NEGATIVE Normal Laboratory test finding 01/03/2021 [place] [address] [phone] Packed Cells TRANSFUSED PRODU <SEE NOTE> 37 CBC With Differential 01/02/2021 [place] [address] [phone] White Blood Count 4.3 10 Normal 4.0-10.0 [...] 36.0-66.0 Lymph % 10.7 % Low 24.0-44.0 [place] % 13.1 % High 2.0-8.0 Eos % 0.7 % Normal 0.0-3.0 Baso % 0.5 % Normal 0.0-1.0 Immature Granulocyte % 0.5 % Normal 0-3.0 Nucleated Red Blood Cell % 0.0 % Normal 0-0 Neutrophils # 3.2 10 Normal 1.5-8.5 Lymph # 0.5 10 Low 1.5-5.0 [place] # 0.6 10 Normal 0.0-0.8 Eos # 0.0 10 Normal 0.0-0.5 Baso # 0.0 10 Normal 0.0-0.2 Comprehensive Metabolic Profil 01/02/2021 [place] [address] [phone] Glucose, Fasting 155 mg/dL High 70-100 Blood [...] Total Iron Binding Capacit 01/02/2021 [place] [address] [phone] Iron (Fe) 55 g/dL Normal 50-170 Total Iron Binding Capacity 398 g/dL Normal 250-450 Percent Saturation 13.8 % Normal 13.2-45.0 Laboratory test finding 01/02/2021 [place] [address] [phone] Thyroid Stimulating Hormone 1.660 uIU/ML Normal 0. 358-3.740 Free T4 0.87 ng/dL Normal 0.76-1.46 Ferritin 58 NG/ML Normal 8-252 Istat Chem8+ Panel 12/23/2020 [place] [address] [phone] iSTAT HCT 33.0 % Low 38.0-51.0 iSTAT Glucose 94 mg/dL Normal 70-105 iSTAT Sodium 138 mEq/L Normal 136-145 iSTAT Potassium 4.2 mEq/L Normal 3.5-5.1 iSTAT CA++ 5.0 mg/dL Normal 4.5-5.3 iSTAT Chloride 102 mEq/L Normal 98-109 iSTAT Co2 27.0 MM/L Normal 23.0-27.0 iSTAT BUN 20 mg/dL Normal 8-26 iSTAT Creatinine 0.7 mg/dL Normal 0.6-1.3 Laboratory test finding 12/23/2020 [place] [address] [phone] Lipase 73 U/L Normal 73-393 Lactic Acid Sepsis Protocol 0.8 mmol/L Normal 0.4-2.0 39 Liver Profile 12/23/2020 [place] [address] [phone] Ast/Sgot 13 U/L Normal 7-37 Alt/SGPT 14 U/L Normal 12-78 Alkaline Phosphatase 95 U/L Normal 45-117 Bilirubin,Total 0.9 mg/dL Normal 0.2-1.0 Bilirubin,Direct 0.3 mg/dL High 0.0-0.2 Total Protein 6.5 GM/DL Normal 6.4-8.2 Albumin 3.4 GM/DL Normal 3.2-5.2 Albumin/Globulin Ratio 1.1 Low 1.2-2.2 PT & Aptt 12/23/2020 [place] [address] [phone] Prothrombin Time 13.3 seconds Normal 12.5-14.3 Inr 0.99 Normal 40 Partial Thromboplastin Time 29.5 seconds Normal 24.2-38.5 CBC With Differential 12/23/2020 [place] [address] [phone] White Blood Count 4.5 10 Normal 4.0-10.0 [...] 36.0-66.0 Lymph % 9.7 % Low 24.0-44.0 [place] % 11.9 % High 2.0-8.0 Eos % 0.9 % Normal 0.0-3.0 Baso % 0.4 % Normal 0.0-1.0 Immature Granulocyte % 0.4 % Normal 0-3.0 Nucleated Red Blood Cell % 0.0 % Normal 0-0 Neutrophils # 3.5 10 Normal 1.5-8.5 Lymph # 0.4 10 Low 1.5-5.0 [place] # 0.5 10 Normal 0.0-0.8 Eos # 0.0 10 Normal 0.0-0.5 Baso # 0.0 10 Normal 0.0-0.2 Laboratory test finding 12/23/2020 [place] [address] [phone] iSTAT Troponin 0.01 NG/ML Normal 0.00-0.08 CBC With Differential 12/19/2020 [place] [address] [phone] White Blood Count 3.8 10 Low 4.0-10.0 [...] 36.0-66.0 Lymph % 11.7 % Low 24.0-44.0 [place] % 11.9 % High 2.0-8.0 Eos % 1.1 % Normal 0.0-3.0 Baso % 0.3 % Normal 0.0-1.0 Immature Granulocyte % 0.5 % Normal 0-3.0 Nucleated Red Blood Cell % 0.0 % Normal 0-0 Neutrophils # 2.8 10 Normal 1.5-8.5 Lymph # 0.4 10 Low 1.5-5.0 [place] # 0.5 10 Normal 0.0-0.8 Eos # 0.0 10 Normal 0.0-0.5 Baso # 0.0 10 Normal 0.0-0.2 CBC With Differential 12/05/2020 [place] [address] [phone] White Blood Count 3.4 10 Low 4.0-10.0 [...] 36.0-66.0 Lymph % 12.8 % Low 24.0-44.0 [place] % 13.7 % High 2.0-8.0 Eos % 1.2 % Normal 0.0-3.0 Baso % 0.6 % Normal 0.0-1.0 Immature Granulocyte % 0.3 % Normal 0-3.0 Nucleated Red Blood Cell % 0.0 % Normal 0-0 Neutrophils # 2.4 10 Normal 1.5-8.5 Lymph # 0.4 10 Low 1.5-5.0 [place] # 0.5 10 Normal 0.0-0.8 Eos # 0.0 10 Normal 0.0-0.5 Baso # 0.0 10 Normal 0.0-0.2 PT & Aptt 12/05/2020 Patient [place] [address] [phone] Prothrombin Time 13.3 seconds Normal 12.5-14.3 Inr 0.99 Normal 41 Partial Thromboplastin Time 29.4 seconds Normal 24.2-38.5 Total Iron Binding Capacit 12/05/2020 [place] [address] [phone] Iron (Fe) 94 g/dL Normal 50-170 Total Iron Binding Capacity 350 g/dL Normal 250-450 Percent Saturation 26.9 % Normal 13.2-45.0 Laboratory test finding 12/05/2020 [place] [address] [phone] Ferritin 108 NG/ML Normal 8-252 1 TRANSFUSED [...] developed and its performance characteristics determined by [employer]. It has not been cleared or approved [...] cofactor activity; FVIII - factor VIII activity. MANAGER VALIDATION: For questions regarding panel interpretation, please contact Mikal Wasserman M.D. at [employer] at . DISCLAIMER These assessments and interpretations [...] (1) The National Heart, Lung and Blood [place]. The Diagnosis, Evaluation and Management of von Willebrand Disease. [place], [place]: National Institutes of Health Publication 08-5832. 2007. Available at http://www.nhlbi.nih.gov/guidelines/vwd/. (2) Tayo WL et al. Am J Hematol. 2009; 84(6):366-370. (3) Pam Domingo et al. Haemophilia. 2004;10(3):199-217. (4) Lety WOODRUFF et al. Haemophilia. 2004; 10(3):218-231. 10 Performed at: [address] [id number] Master Carpenter: Matt Mcdonnell MD, Phone: [phone] Performed at: [facility] [address] [place], [place], [place] [id number] Master Carpenter: Gary Youngblood MD, Phone: [phone] Performed at: - [facility] [address] [id number] Master Carpenter: Teresa Nguyen MD, Phone: [phone] UNABLE TO PERFORM TEST DUE T [...] passenger travel. Testing and International Air Travel, cdc.gov/coronavirus/2019-ncov/travelers/cmrykum-rvz-dzjmci.html 09/01/2020 NOTE: The COVID-19 assay is under Emergency Use Authorization (EUA) by the U.S. Food and Drug Administration. [facility] are designated as high complexity laboratories by [...] Little GFR Left ESRD GFR <15 on COOLING ROOM ATTENDANT 15 THE CEA ASSAY IS PERFORMED O N THE [facility] BY CHEMILUMINESCENCE AND SHOULD NOT BE COMPARED [...] Little GFR Left ESRD GFR <15 on COOLING ROOM ATTENDANT 18 TRANSFUSED PRODUCT: PACKED C ELLS COUNT: [...] pathogens. DISCLAIMER: Testing was performed using the [facility] SARS-CoV-2 test. This test was developed and its performance characteristics determined by [facility]. This test has not been FDA cleared [...] Little GFR Left ESRD GFR <15 on COOLING ROOM ATTENDANT 30 TRANSFUSED PRODUCT: PACKED C ELLS COUNT: 2 31 Units are mL/min/1.73 m2 Chronic Kidney Disease Staging per NKF: Stage I & II GFR >=60 Normal to Mildly Decreased Stage III GFR 30-59 Moderately Decreased Stage IV GFR 15-29 Severely Decreased Stage V GFR <15 Very Little GFR Left ESRD GFR <15 on COOLING ROOM ATTENDANT 32 TRANSFUSED PRODUCT: PACKED C ELLS COUNT: 2 33 Units are mL/min/1.73 m2 Chronic Kidney Disease Staging per NKF: Stage I & II GFR >=60 Normal to Mildly Decreased Stage III GFR 30-59 Moderately Decreased Stage IV GFR 15-29 Severely Decreased Stage V GFR <15 Very Little GFR Left ESRD GFR <15 on COOLING ROOM ATTENDANT 34 THE CEA ASSAY IS PERFORMED O [...] Little GFR Left ESRD GFR <15 on COOLING ROOM ATTENDANT 36 ASSAY INFORMATION: Real Time RT-PCR NOTE: The COVID-19 assay has been cleared by the U.S. Food and Drug Administration under the Emergency Use Authorization (EUA). 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 Y/N query for Sepsis Lactate Rule: [...] 2.5-3.5 Procedures Date Code Description Status 03/28/2021 [address]4969 [place] W/I 7 Days Of DC, Comm W/I 2 Dys Completed 03/23/2021 53260 Office/Outpatient Established Mo d MDM 30-39 Min Completed 03/23/2021 [id number] Diabetic Foot Exam Completed 01/25/2021 16162 [place] W/I 7 Days Of DC, Comm W/I 2 Dys Completed 12/27/2020 40695 Office/Outpatient Established Mo d MDM 30-39 Min Completed 12/19/2020 28203 Office/Outpatient Established Mo d MDM 30-39 Min Completed 12/02/2020 48624 [place] W/I 7 Days Of DC, Comm W/I 2 Dys Completed Medical Devices Description No Information Available Encounters Type Date Location Provider Dx Diagnosis Office Visit 03/28/2021 11:45a Main Office Nadiya Bryan FNP D64.9 Anemia, unspecified K29.61 Other gastritis with bleedin g Office Visit 03/23/2021 3:45p Main Office Nadiya Bryan, EXTRUSION MACHINE OPERATOR E11.6 9 Type 2 diabetes mellitus with other specified complication C18.9 Malignant neoplasm of colon, unspecified 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 C18.9 Malignant neoplasm of colon, unspecified I48.91 Unspecified atrial fibrillat ion Office Visit 12/02/2020 10:30a Main Office Nadiya Bryan, EXTRUSION MACHINE OPERATOR D64.9 Anemia, unspecified E11.69 Type 2 diabetes mellitus wit h other specified complication E78.2 Mixed hyperlipidemia I10 Essential (primary) hyperten yara 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 C18.9 Malignant neoplasm of colon, unspecified I48.91 Unspecified atrial fibrillat ion Assessments Date Code Description Provider 03/28/2021 D64.9 Anemia, unspecified Pleskach, Mo lly, EXTRUSION MACHINE OPERATOR 03/28/2021 K29.61 Other gastritis with bleeding Pl Nadiya hogan, EXTRUSION MACHINE OPERATOR 03/23/2021 E11.69 Type 2 diabetes mellitus with ot her specified complication Pleskach, Andiya, EXTRUSION MACHINE OPERATOR 03/23/2021 C18.9 Malignant neoplasm of colon, uns pecified Pleskach, Nadiya, EXTRUSION MACHINE OPERATOR 03/23/2021 Z93.2 Ileostomy status Pleskach, Nadiya , EXTRUSION MACHINE OPERATOR 03/23/2021 E78.2 Mixed hyperlipidemia Pleskach, M jarocho, EXTRUSION MACHINE OPERATOR 03/23/2021 I10 Essential (primary) hypertension Pleskach, Nadiya, EXTRUSION MACHINE OPERATOR 03/23/2021 I48.91 Unspecified atrial fibrillation Pleskach, Nadiya, EXTRUSION MACHINE OPERATOR 03/23/2021 D64.9 Anemia, unspecified Pleskach, Mo lly, EXTRUSION MACHINE OPERATOR 01/25/2021 D64.9 Anemia, unspecified Pleskach, Mo lly, EXTRUSION MACHINE OPERATOR 01/25/2021 K29.61 Other gastritis with bleeding Pl Nadiya hogan, EXTRUSION MACHINE OPERATOR 12/27/2020 E11.69 Type 2 diabetes mellitus with ot her specified complication Anitha Gamez M.D. 12/27/2020 C18.9 Malignant neoplasm of colon, uns pecified Anitha Gamez M.D. 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 12/27/2020 D64.9 Anemia, unspecified Angela Gamez M.D. 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 Pleskach, Nadiya , EXTRUSION MACHINE OPERATOR 12/19/2020 C18.9 Malignant neoplasm of colon, uns pecified Pleskach, Nadiya, EXTRUSION MACHINE OPERATOR 12/19/2020 I48.91 Unspecified atrial fibrillation Nadiya Bryan, EXTRUSION MACHINE OPERATOR 12/02/2020 D64.9 Anemia, unspecified RandiDeejay, EXTRUSION MACHINE OPERATOR 12/02/2020 E11.69 Type 2 diabetes mellitus with ot her specified complication Nadiya Bryan, EXTRUSION MACHINE OPERATOR 12/02/2020 E78.2 Mixed hyperlipidemia PleChayo traceyly, EXTRUSION MACHINE OPERATOR 12/02/2020 I10 Essential (primary) hypertension Nadiya Bryan, EXTRUSION MACHINE OPERATOR 12/02/2020 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 Sent [phone] [facility], [place], [address] [phone]
--- OUTSIDE RECORDS SUMMARY | 2021-06-19 13:40 | CCD | Continuity of Care Document ---
Author Author Meron BRYAN FIRE PATROLLER Organization Unknown Address [address] [place] [address] Phone [phone] Care Team Providers Care Industrial Maintenance Manager Name Role Phone [facility] AUTM [phone] Niels Decker M.D. AUTM [phone] [facility] AUTM Jeff Cramer AUTM [phone] Problems Active Problems Provider Date Type 2 [...] 236units C18.9 Nadiya Bryan FNP 06/16/2020 Z93.2 [place] Remover Wipes Misc use 3-4 wipes every 4 days and as needed when changing ostomy 2Box Z93.2 Nadiya Bryan FNP 06/16/2020 C18.9 Efren [employer] Ceraing change every 4-5 days and as needed ref #[id number] 20units Nadiya Bryan FNP 05/05/2020 [place] 2 Piece Ostomy Skin Barrier ref # [id number] márquez ge every 4-5 days and as needed 20units C18.9 Nadiya Bryan FNP 04/14/2020 Z93.2 [place] 2 Piece Drainable Ostomy Pouch ref # [id number] c hange every 4-5 days and as [...] CPT Code Status Date Vaccine Lot # [id number] Refused 04/17/2016 Pneumococcal Vaccine 27543 Refused 04/17/2016 Prevnar 13 61240 Refused 04/17/2016 Influenza Vaccination Vital Signs Date Vital Result Comment 03/28/2021 11:51am BP Systolic 113 mmHg BP Diastolic 83 mmHg Heart Rate 127 /min Body Temperature 98.0 F Respiratory Rate 18 /min Height 61.5 inches 5'1.50" Weight 114.38 lb O2 % BldC Oximetry 100 % [place] Body Weight 105 lb BMI (Body Mass Index) 21.3 kg/m2 03/23/2021 3:47pm BP Systolic 110 mmHg BP Diastolic 62 mmHg Heart Rate 64 /min Body Temperature 98.7 F Respiratory Rate 16 /min Height 61.5 inches 5'1.50" Weight 116.38 lb O2 % BldC Oximetry 99 % [place] Body Weight 105 lb BMI (Body Mass Index) 21.6 kg/m2 Results Test Acquired Date Facility Test Result H/L Range Note Laboratory test finding 05/31/2021 [place] [address] [phone] Packed Cells TRANSFUSED PRODU <SEE NOTE> 1 CBC With Differential 05/31/2021 [place] [address] [phone] White Blood Count 4.9 10 Normal 4.0-10.0 [...] 36.0-66.0 Lymph % 6.5 % Low 24.0-44.0 Baker % 11.0 % High 2.0-8.0 Eos % 1.8 % Normal 0.0-3.0 Baso % 0.6 % Normal 0.0-1.0 Immature Granulocyte % 0.8 % Normal 0-3.0 Nucleated Red Blood Cell % 0.0 % Normal 0-0 Neutrophils # 3.9 10 Normal 1.5-8.5 Lymph # 0.3 10 Low 1.5-5.0 Baker # 0.5 10 Normal 0.0-0.8 Eos # 0.1 10 Normal 0.0-0.5 Baso # 0.0 10 Normal 0.0-0.2 Laboratory test finding 05/24/2021 [place] [address] [phone] Packed Cells TRANSFUSED PRODU <SEE NOTE> 2 CBC With Differential 05/24/2021 [place] [address] [phone] White Blood Count 5.2 10 Normal 4.0-10.0 [...] 36.0-66.0 Lymph % 4.2 % Low 24.0-44.0 Baker % 11.7 % High 2.0-8.0 Eos % 1.9 % Normal 0.0-3.0 Baso % 0.6 % Normal 0.0-1.0 Immature Granulocyte % 0.6 % Normal 0-3.0 Nucleated Red Blood Cell % 0.0 % Normal 0-0 Neutrophils # 4.2 10 Normal 1.5-8.5 Lymph # 0.2 10 Low 1.5-5.0 Baker # 0.6 10 Normal 0.0-0.8 Eos # 0.1 10 Normal 0.0-0.5 Baso # 0.0 10 Normal 0.0-0.2 Type & Screen -Incl Blood Type,Tye,AB SC 05/24/2021 [place] [address] [phone] Blood Type O POSITIVE Normal AB Screen (Indirect Farooq)Vis NEGATIVE Normal CBC With Differential 05/17/2021 [place] [address] [phone] White Blood Count 4.6 10 Normal 4.0-10.0 [...] 36.0-66.0 Lymph % 5.7 % Low 24.0-44.0 Baker % 11.3 % High 2.0-8.0 Eos % 1.7 % Normal 0.0-3.0 Baso % 0.4 % Normal 0.0-1.0 Immature Granulocyte % 0.4 % Normal 0-3.0 Nucleated Red Blood Cell % 0.0 % Normal 0-0 Neutrophils # 3.7 10 Normal 1.5-8.5 Lymph # 0.3 10 Low 1.5-5.0 Baker # 0.5 10 Normal 0.0-0.8 Eos # 0.1 10 Normal 0.0-0.5 Baso # 0.0 10 Normal 0.0-0.2 Type & Screen -Incl Blood Type,Tye,AB SC 05/17/2021 [place] [address] [phone] Blood Type O POSITIVE Normal AB Screen (Indirect Farooq)Vis NEGATIVE Normal Laboratory test finding 05/17/2021 [place] [address] [phone] Packed Cells TRANSFUSED PRODU <SEE NOTE> 3 CBC With Differential 05/10/2021 [place] [address] [phone] White Blood Count 5.2 10 Normal 4.0-10.0 [...] 36.0-66.0 Lymph % 4.8 % Low 24.0-44.0 Baker % 8.7 % High 2.0-8.0 Eos % 1.2 % Normal 0.0-3.0 Baso % 0.4 % Normal 0.0-1.0 Immature Granulocyte % 0.6 % Normal 0-3.0 Nucleated Red Blood Cell % 0.0 % Normal 0-0 Neutrophils # 4.4 10 Normal 1.5-8.5 Lymph # 0.3 10 Low 1.5-5.0 Baker # 0.5 10 Normal 0.0-0.8 Eos # 0.1 10 Normal 0.0-0.5 Baso # 0.0 10 Normal 0.0-0.2 CBC With Differential 05/08/2021 [place] [address] [phone] White Blood Count 4.8 10 Normal 4.0-10.0 [...] 36.0-66.0 Lymph % 5.2 % Low 24.0-44.0 Baker % 11.2 % High 2.0-8.0 Eos % 1.4 % Normal 0.0-3.0 Baso % 0.4 % Normal 0.0-1.0 Immature Granulocyte % 0.4 % Normal 0-3.0 Nucleated Red Blood Cell % 0.0 % Normal 0-0 Neutrophils # 3.9 10 Normal 1.5-8.5 Lymph # 0.3 10 Low 1.5-5.0 Baker # 0.5 10 Normal 0.0-0.8 Eos # 0.1 10 Normal 0.0-0.5 Baso # 0.0 10 Normal 0.0-0.2 Type & Screen -Incl Blood Type,Tye,AB SC 05/08/2021 [place] [address] [phone] Blood Type O POSITIVE Normal AB Screen (Indirect Farooq)Vis NEGATIVE Normal Laboratory test finding 05/08/2021 [place] [address] [phone] Packed Cells TRANSFUSED PRODU <SEE NOTE> 4 Occult Blood 05/08/2021 [place] [address] [phone] Occult Blood OCCULT BLOOD 1 <SEE NOTE> Abnormal 5 Retic (Reticulocyte Count) 05/05/2021 [place] [address] [phone] Reticulocyte % 5.9 % High 0.5-1.5 Reticulocyte # 119.8 10 High 17-77 Retic Hemoglobin Equivalent 30.7 pg Normal 24-36 Laboratory test finding 05/05/2021 [place] [address] [phone] Packed Cells TRANSFUSED PRODU <SEE NOTE> 6 Type & Screen -Incl Blood Type,Tye,AB SC 05/05/2021 [place] [address] [phone] Blood Type O POSITIVE Normal AB Screen (Indirect Farooq)Vis NEGATIVE Normal CBC With Differential 05/05/2021 Patient Service Ce [facility]ter [place] [address]4054 [phone] White Blood Count 5.1 10 Normal 4.0-10.0 [...] 36.0-66.0 Lymph % 6.3 % Low 24.0-44.0 Baker % 11.5 % High 2.0-8.0 Eos % 0.8 % Normal 0.0-3.0 Baso % 0.4 % Normal 0.0-1.0 Immature Granulocyte % 0.6 % Normal 0-3.0 Nucleated Red Blood Cell % 0.0 % Normal 0-0 Neutrophils # 4.1 10 Normal 1.5-8.5 Lymph # 0.3 10 Low 1.5-5.0 Baker # 0.6 10 Normal 0.0-0.8 Eos # 0.0 10 Normal 0.0-0.5 Baso # 0.0 10 Normal 0.0-0.2 Factor VIII Panel 05/05/2021 [place] [address] [phone] F8 Activity For F8 Panel 214 % High 56-140 7 F8 Antigen For F8 Panel 115 % Normal 50-200 8 F8 Activity vWB For F8 Panel 71 % Normal 50-200 Interpretation: Note Normal . 9 Laboratory test finding 05/05/2021 [place] [address] [phone] LDH Lactate Dehydrogenase 128 U/L Normal 84-246 Haptoglobin 214 mg/dL Normal 41-333 10 Platelet Function Analysis 05/05/2021 [place] [address] [phone] Collagen Epinephrine TNP seconds Normal 74-162 11 Laboratory test finding 05/05/2021 [place] [address] [phone] Partial Thromboplastin Time 24.9 seconds Low 25 .9-37.0 Prothrombin Time/Inr 05/05/2021 [place] [address] [phone] Prothrombin Time 14.0 seconds Normal 12.7-14.5 Inr 1.04 Normal 12 CBC With Differential 04/27/2021 [place] [address] [phone] White Blood Count 4.2 10 Normal 4.0-10.0 [...] 36.0-66.0 Lymph % 8.1 % Low 24.0-44.0 Baker % 12.8 % High 2.0-8.0 Eos % 1.0 % Normal 0.0-3.0 Baso % 0.2 % Normal 0.0-1.0 Immature Granulocyte % 0.5 % Normal 0-3.0 Nucleated Red Blood Cell % 0.0 % Normal 0-0 Neutrophils # 3.3 10 Normal 1.5-8.5 Lymph # 0.3 10 Low 1.5-5.0 Baker # 0.5 10 Normal 0.0-0.8 Eos # 0.0 10 Normal 0.0-0.5 Baso # 0.0 10 Normal 0.0-0.2 CBC With Differential 04/20/2021 [place] [address] [phone] White Blood Count 3.9 10 Low 4.0-10.0 [...] 36.0-66.0 Lymph % 8.8 % Low 24.0-44.0 Baker % 11.9 % High 2.0-8.0 Eos % 1.0 % Normal 0.0-3.0 Baso % 0.5 % Normal 0.0-1.0 Immature Granulocyte % 0.8 % Normal 0-3.0 Nucleated Red Blood Cell % 0.0 % Normal 0-0 Neutrophils # 3.0 10 Normal 1.5-8.5 Lymph # 0.3 10 Low 1.5-5.0 Baker # 0.5 10 Normal 0.0-0.8 Eos # 0.0 10 Normal 0.0-0.5 Baso # 0.0 10 Normal 0.0-0.2 CBC With Differential 04/12/2021 Patient Service [place] [id number] [phone] White Blood Count 4.6 10 Normal 4.0-10.0 [...] 36.0-66.0 Lymph % 6.6 % Low 24.0-44.0 Baker % 9.4 % High 2.0-8.0 Eos % 0.9 % Normal 0.0-3.0 Baso % 0.2 % Normal 0.0-1.0 Immature Granulocyte % 0.4 % Normal 0-3.0 Nucleated Red Blood Cell % 0.0 % Normal 0-0 Neutrophils # 3.8 10 Normal 1.5-8.5 Lymph # 0.3 10 Low 1.5-5.0 Baker # 0.4 10 Normal 0.0-0.8 Eos # 0.0 10 Normal 0.0-0.5 Baso # 0.0 10 Normal 0.0-0.2 Coronavirus 2019 Nasopharygeal 04/10/2021 Patient [place], [place] [id number] [phone] Coronavirus 2019 Nasopharygeal ASSAY INFORMATIO <SEE N OTE> 13 Comprehensive Metabolic Profil 04/07/2021 [place] [address] [phone] Glucose, Fasting 184 mg/dL High 70-100 Blood [...] Iron Binding Capacit 04/07/2021 [place] [address] [phone] Iron (Fe) 48 g/dL Low 50-170 Total Iron Binding Capacity 353 g/dL Normal 250-450 Percent Saturation 13.6 % Normal 13.2-45.0 Laboratory test finding 04/07/2021 [place] [address] [phone] Carcinoembryonic Antigen < 0.5 NG/ML Normal <2.5 15 Ferritin 66 NG/ML Normal 8-252 CBC With Differential 04/07/2021 [place] [address] [phone] White Blood Count 3.4 10 Low 4.0-10.0 [...] 36.0-66.0 Lymph % 8.5 % Low 24.0-44.0 Baker % 10.9 % High 2.0-8.0 Eos % 0.9 % Normal 0.0-3.0 Baso % 0.6 % Normal 0.0-1.0 Immature Granulocyte % 0.6 % Normal 0-3.0 Nucleated Red Blood Cell % 0.0 % Normal 0-0 Neutrophils # 2.7 10 Normal 1.5-8.5 Lymph # 0.3 10 Low 1.5-5.0 Baker # 0.4 10 Normal 0.0-0.8 Eos # 0.0 10 Normal 0.0-0.5 Baso # 0.0 10 Normal 0.0-0.2 Laboratory test finding 04/07/2021 [place] [address] [phone] Packed Cells TRANSFUSED PRODU <SEE NOTE> 16 Type & Screen -Incl Blood Type,Tye,AB SC 04/07/2021 [place] [address] [phone] Blood Type O POSITIVE Normal AB Screen (Indirect Farooq)Vis NEGATIVE Normal Comprehensive Metabolic Profil 03/24/2021 Patient S ervice Center [place], [place] [id number] [phone] Glucose, Fasting 96 mg/dL Normal 70-100 Blood [...] 1.2-2.2 CBC With Differential 03/24/2021 [place] [address] [phone] White Blood Count 4.6 10 Normal 4.0-10.0 [...] 36.0-66.0 Lymph % 6.2 % Low 24.0-44.0 Baker % 11.4 % High 2.0-8.0 Eos % 0.4 % Normal 0.0-3.0 Baso % 0.4 % Normal 0.0-1.0 Immature Granulocyte % 0.4 % Normal 0-3.0 Nucleated Red Blood Cell % 0.7 % High 0-0 Neutrophils # 3.7 10 Normal 1.5-8.5 Lymph # 0.3 10 Low 1.5-5.0 Baker # 0.5 10 Normal 0.0-0.8 Eos # 0.0 10 Normal 0.0-0.5 Baso # 0.0 10 Normal 0.0-0.2 Laboratory test finding 03/24/2021 [place] [address] [phone] Packed Cells TRANSFUSED PRODU <SEE NOTE> 18 Influenza A/B RSV Covid Amp 03/24/2021 [place] [address] [phone] Influenza A Amplification NEGATIVE Normal Negati ve 19 Influenza B Amplification NEGATIVE Normal Negative 20 RSV Amplification NEGATIVE Normal Negative 21 Sars Covid-19 Amplification NEGATIVE Normal Negative 22 Metabolic Panel (14), Comprehensive 03/17/2021 [facility] [address] [place] [address] [phone] Calcium 9.5 mg/dL 8.7-10.3 Glucose 81 mg/dL [...] IU/L 0-32 Lipid Panel 03/17/2021 [facility] [address] [place] [address] [phone] Cholesterol, Total 123 mg/dL 100-199 Triglycerides 141 mg/dL 0-149 HDL Cholesterol 37 mg/dL Low >39 VLDL Cholesterol Mark 25 mg/dL 5-40 LDL Chol Calc ([facility]) 61 mg/dL 0-99 Comment: TNP Hemoglobin A1c 03/17/2021 [facility] [address] [place] [address] [phone] Hemoglobin A1c 4.8 % 4.8-5.6 25 Albumin/Creatinine Ratio, Random Urine 03/17/2021 [facility] [address] [place] [id number] [phone] Creatinine, Urine 120.2 mg/dL Not Estab. Albumin, Urine 20.1 ug/mL Not Estab. Alb/Creat Ratio 17 mg/gcreat 0-29 26 Laboratory test finding 03/14/2021 [place] [address] [phone] Packed Cells TRANSFUSED PRODU <SEE NOTE> 27 Type & Screen -Incl Blood Type,Tye,AB SC 03/14/2021 [facility] [place] [id number] [phone] Blood Type O POSITIVE Normal AB Screen (Indirect Farooq)Vis NEGATIVE Normal CBC With Differential 03/14/2021 [place] [address] [phone] White Blood Count 4.0 10 Normal 4.0-10.0 [...] 36.0-66.0 Lymph % 6.8 % Low 24.0-44.0 Baker % 9.3 % High 2.0-8.0 Eos % 1.0 % Normal 0.0-3.0 Baso % 0.8 % Normal 0.0-1.0 Immature Granulocyte % 0.3 % Normal 0-3.0 Nucleated Red Blood Cell % 0.0 % Normal 0-0 Neutrophils # 3.3 10 Normal 1.5-8.5 Lymph # 0.3 10 Low 1.5-5.0 Baker # 0.4 10 Normal 0.0-0.8 Eos # 0.0 10 Normal 0.0-0.5 Baso # 0.0 10 Normal 0.0-0.2 CBC With Differential 03/10/2021 [place] [address] [phone] White Blood Count 3.4 10 Low 4.0-10.0 [...] 36.0-66.0 Lymph % 7.6 % Low 24.0-44.0 Baker % 12.9 % High 2.0-8.0 Eos % 1.2 % Normal 0.0-3.0 Baso % 0.6 % Normal 0.0-1.0 Immature Granulocyte % 0.3 % Normal 0-3.0 Nucleated Red Blood Cell % 0.0 % Normal 0-0 Neutrophils # 2.6 10 Normal 1.5-8.5 Lymph # 0.3 10 Low 1.5-5.0 Baker # 0.4 10 Normal 0.0-0.8 Eos # 0.0 10 Normal 0.0-0.5 Baso # 0.0 10 Normal 0.0-0.2 Laboratory test finding 03/10/2021 [place] [address] [phone] Carcinoembryonic Antigen < 0.5 NG/ML Normal <2.5 28 Ferritin 492 NG/ML High 8-252 Comprehensive Metabolic Profil 03/10/2021 [place] [address] [phone] Glucose, Fasting 166 mg/dL High 70-100 Blood [...] Total Iron Binding Capacit 03/10/2021 [place] [address] [phone] Iron (Fe) 72 g/dL Normal 50-170 Total Iron Binding Capacity 352 g/dL Normal 250-450 Percent Saturation 20.5 % Normal 13.2-45.0 Laboratory test finding 02/28/2021 [place] [address] [phone] Packed Cells TRANSFUSED PRODU <SEE NOTE> 30 Type & Screen -Incl Blood Type,Tye,AB SC 02/28/2021 [place] [address] [phone] Blood Type O POSITIVE Normal AB Screen (Indirect Farooq)Vis NEGATIVE Normal Laboratory test finding 02/27/2021 [place] [address] [phone] Blood Urea Nitrogen 26 mg/dL High 7-18 Creatinine With GFR 02/27/2021 [place] [address] [phone] Creatinine For GFR 0.76 mg/dL Normal 0.55-1.30 Glomerular Filtration Rate > 60.0 Normal >32 3 1 Total Iron Binding Capacit 02/27/2021 [place] [address] [phone] Iron (Fe) 79 g/dL Normal 50-170 Total Iron Binding Capacity 384 g/dL Normal 250-450 Percent Saturation 20.6 % Normal 13.2-45.0 Laboratory test finding 02/27/2021 [place] [address] [phone] Ferritin 1039 NG/ML High 8-252 CBC With Differential 02/27/2021 [place] [address] [phone] White Blood Count 6.0 10 Normal 4.0-10.0 [...] 36.0-66.0 Lymph % 4.7 % Low 24.0-44.0 Baker % 11.6 % High 2.0-8.0 Eos % 0.5 % Normal 0.0-3.0 Baso % 0.3 % Normal 0.0-1.0 Immature Granulocyte % 0.8 % Normal 0-3.0 Nucleated Red Blood Cell % 0.3 % High 0-0 Neutrophils # 4.9 10 Normal 1.5-8.5 Lymph # 0.3 10 Low 1.5-5.0 Baker # 0.7 10 Normal 0.0-0.8 Eos # 0.0 10 Normal 0.0-0.5 Baso # 0.0 10 Normal 0.0-0.2 Laboratory test finding 02/10/2021 [place] [address] [phone] Packed Cells TRANSFUSED PRODU <SEE NOTE> 32 Type & Screen -Incl Blood Type,Tye,AB SC 02/10/2021 [facility] [place] 4194087 [phone] Blood Type O POSITIVE Normal AB Screen (Indirect Farooq)Vis NEGATIVE Normal CBC With Differential 02/09/2021 [place] [address] [phone] White Blood Count 3.9 10 Low 4.0-10.0 [...] 36.0-66.0 Lymph % 7.2 % Low 24.0-44.0 Baker % 10.0 % High 2.0-8.0 Eos % 1.0 % Normal 0.0-3.0 Baso % 0.5 % Normal 0.0-1.0 Immature Granulocyte % 0.5 % Normal 0-3.0 Nucleated Red Blood Cell % 0.0 % Normal 0-0 Neutrophils # 3.1 10 Normal 1.5-8.5 Lymph # 0.3 10 Low 1.5-5.0 Baker # 0.4 10 Normal 0.0-0.8 Eos # 0.0 10 Normal 0.0-0.5 Baso # 0.0 10 Normal 0.0-0.2 CBC With Differential 01/27/2021 [place] [address] [phone] White Blood Count 4.2 10 Normal 4.0-10.0 [...] 36.0-66.0 Lymph % 13.6 % Low 24.0-44.0 Baker % 14.6 % High 2.0-8.0 Eos % 1.4 % Normal 0.0-3.0 Baso % 0.5 % Normal 0.0-1.0 Immature Granulocyte % 0.5 % Normal 0-3.0 Nucleated Red Blood Cell % 0.0 % Normal 0-0 Neutrophils # 2.9 10 Normal 1.5-8.5 Lymph # 0.6 10 Low 1.5-5.0 Baker # 0.6 10 Normal 0.0-0.8 Eos # 0.1 10 Normal 0.0-0.5 Baso # 0.0 10 Normal 0.0-0.2 Comprehensive Metabolic Profil 01/27/2021 Patient S [place] [id number] [phone] Glucose, Fasting 59 mg/dL Low 70-100 Blood [...] Iron Binding Capacit 01/27/2021 [place] [address] [phone] Iron (Fe) 59 g/dL Normal 50-170 Total Iron Binding Capacity 397 g/dL Normal 250-450 Percent Saturation 14.9 % Normal 13.2-45.0 Laboratory test finding 01/27/2021 [place] [address] [phone] Ferritin 39 NG/ML Normal 8-252 Carcinoembryonic Antigen 0.5 NG/ML Normal <2.5 34 Type & Screen -Incl Blood Type,Tye,AB SC 01/20/2021 [place] [address] [phone] Blood Type O POSITIVE Normal AB Screen (Indirect Farooq)Vis NEGATIVE Normal Laboratory test finding 01/20/2021 [place] [address] [phone] Blood Urea Nitrogen 21 mg/dL High 7-18 Complete Blood Count 01/20/2021 [place] [address] [phone] White Blood Count 3.3 10 Low 4.0-10.0 [...] With GFR 01/20/2021 Patient Service [facility] [place] 4194035 [phone] Creatinine For GFR 0.69 mg/dL Normal 0.55-1.30 Glomerular Filtration Rate > 60.0 Normal >32 3 5 Coronavirus 2019 Nasopharygeal 01/16/2021 Patient S ervice Center [place] 4194020 [phone] Coronavirus 2019 Nasopharygeal ASSAY INFORMATIO <SEE N OTE> 36 Type & Screen -Incl Blood Type,Tye,AB SC 01/03/2021 [place] [address] [phone] Blood Type O POSITIVE Normal AB Screen (Indirect Farooq)Vis NEGATIVE Normal Laboratory test finding 01/03/2021 [place] [address] [phone] Packed Cells TRANSFUSED PRODU <SEE NOTE> 37 CBC With Differential 01/02/2021 [place] [address] [phone] White Blood Count 4.3 10 Normal 4.0-10.0 [...] 36.0-66.0 Lymph % 10.7 % Low 24.0-44.0 Baker % 13.1 % High 2.0-8.0 Eos % 0.7 % Normal 0.0-3.0 Baso % 0.5 % Normal 0.0-1.0 Immature Granulocyte % 0.5 % Normal 0-3.0 Nucleated Red Blood Cell % 0.0 % Normal 0-0 Neutrophils # 3.2 10 Normal 1.5-8.5 Lymph # 0.5 10 Low 1.5-5.0 Baker # 0.6 10 Normal 0.0-0.8 Eos # 0.0 10 Normal 0.0-0.5 Baso # 0.0 10 Normal 0.0-0.2 Comprehensive Metabolic Profil 01/02/2021 [place] [address] [phone] Glucose, Fasting 155 mg/dL High 70-100 Blood [...] Total Iron Binding Capacit 01/02/2021 [place] [address] [phone] Iron (Fe) 55 g/dL Normal 50-170 Total Iron Binding Capacity 398 g/dL Normal 250-450 Percent Saturation 13.8 % Normal 13.2-45.0 Laboratory test finding 01/02/2021 [place] [address] [phone] Thyroid Stimulating Hormone 1.660 uIU/ML Normal 0. 358-3.740 Free T4 0.87 ng/dL Normal 0.76-1.46 Ferritin 58 NG/ML Normal 8-252 Istat Chem8+ Panel 12/23/2020 [place] [address] [phone] iSTAT HCT 33.0 % Low 38.0-51.0 iSTAT Glucose 94 mg/dL Normal 70-105 iSTAT Sodium 138 mEq/L Normal 136-145 iSTAT Potassium 4.2 mEq/L Normal 3.5-5.1 iSTAT CA++ 5.0 mg/dL Normal 4.5-5.3 iSTAT Chloride 102 mEq/L Normal 98-109 iSTAT Co2 27.0 MM/L Normal 23.0-27.0 iSTAT BUN 20 mg/dL Normal 8-26 iSTAT Creatinine 0.7 mg/dL Normal 0.6-1.3 Laboratory test finding 12/23/2020 [place] [address] [phone] Lipase 73 U/L Normal 73-393 Lactic Acid Sepsis Protocol 0.8 mmol/L Normal 0.4-2.0 39 Liver Profile 12/23/2020 [place] [address] [phone] Ast/Sgot 13 U/L Normal 7-37 Alt/SGPT 14 U/L Normal 12-78 Alkaline Phosphatase 95 U/L Normal 45-117 Bilirubin,Total 0.9 mg/dL Normal 0.2-1.0 Bilirubin,Direct 0.3 mg/dL High 0.0-0.2 Total Protein 6.5 GM/DL Normal 6.4-8.2 Albumin 3.4 GM/DL Normal 3.2-5.2 Albumin/Globulin Ratio 1.1 Low 1.2-2.2 PT & Aptt 12/23/2020 [place] [address] [phone] Prothrombin Time 13.3 seconds Normal 12.5-14.3 Inr 0.99 Normal 40 Partial Thromboplastin Time 29.5 seconds Normal 24.2-38.5 CBC With Differential 12/23/2020 [place] [address] [phone] White Blood Count 4.5 10 Normal 4.0-10.0 [...] 36.0-66.0 Lymph % 9.7 % Low 24.0-44.0 Baker % 11.9 % High 2.0-8.0 Eos % 0.9 % Normal 0.0-3.0 Baso % 0.4 % Normal 0.0-1.0 Immature Granulocyte % 0.4 % Normal 0-3.0 Nucleated Red Blood Cell % 0.0 % Normal 0-0 Neutrophils # 3.5 10 Normal 1.5-8.5 Lymph # 0.4 10 Low 1.5-5.0 Baker # 0.5 10 Normal 0.0-0.8 Eos # 0.0 10 Normal 0.0-0.5 Baso # 0.0 10 Normal 0.0-0.2 Laboratory test finding 12/23/2020 [place] [address] [phone] iSTAT Troponin 0.01 NG/ML Normal 0.00-0.08 CBC With Differential 12/19/2020 [place] [address] [phone] White Blood Count 3.8 10 Low 4.0-10.0 [...] 36.0-66.0 Lymph % 11.7 % Low 24.0-44.0 Baker % 11.9 % High 2.0-8.0 Eos % 1.1 % Normal 0.0-3.0 Baso % 0.3 % Normal 0.0-1.0 Immature Granulocyte % 0.5 % Normal 0-3.0 Nucleated Red Blood Cell % 0.0 % Normal 0-0 Neutrophils # 2.8 10 Normal 1.5-8.5 Lymph # 0.4 10 Low 1.5-5.0 Baker # 0.5 10 Normal 0.0-0.8 Eos # 0.0 10 Normal 0.0-0.5 Baso # 0.0 10 Normal 0.0-0.2 CBC With Differential 12/05/2020 [place] [address] [phone] White Blood Count 3.4 10 Low 4.0-10.0 [...] 36.0-66.0 Lymph % 12.8 % Low 24.0-44.0 Baker % 13.7 % High 2.0-8.0 Eos % 1.2 % Normal 0.0-3.0 Baso % 0.6 % Normal 0.0-1.0 Immature Granulocyte % 0.3 % Normal 0-3.0 Nucleated Red Blood Cell % 0.0 % Normal 0-0 Neutrophils # 2.4 10 Normal 1.5-8.5 Lymph # 0.4 10 Low 1.5-5.0 Baker # 0.5 10 Normal 0.0-0.8 Eos # 0.0 10 Normal 0.0-0.5 Baso # 0.0 10 Normal 0.0-0.2 PT & Aptt 12/05/2020 [place] [address] [phone] Prothrombin Time 13.3 seconds Normal 12.5-14.3 Inr 0.99 Normal 41 Partial Thromboplastin Time 29.4 seconds Normal 24.2-38.5 Total Iron Binding Capacit 12/05/2020 [place] [address] [phone] Iron (Fe) 94 g/dL Normal 50-170 Total Iron Binding Capacity 350 g/dL Normal 250-450 Percent Saturation 26.9 % Normal 13.2-45.0 Laboratory test finding 12/05/2020 [place] [address] [phone] Ferritin 108 NG/ML Normal 8-252 1 TRANSFUSED [...] developed and its performance characteristics determined by [employer]. It has not been cleared or approved [...] cofactor activity; FVIII - factor VIII activity. SCANNING TECH: For questions regarding panel interpretation, please contact Mikal Wasserman M.D. at [email or web address] at . DISCLAIMER These assessments and interpretations [...] (1) The National Heart, Lung and Blood [place]. The Diagnosis, Evaluation and Management of von Willebrand Disease. [place], [place]: National Institutes of Health Publication 08-5832. 2007. Available at http://www.nhlbi.nih.gov/guidelines/vwd/. (2) Tayo WL et al. Am J Hematol. 2009; 84(6):366-370. (3) Pam Domingo et al. Haemophilia. 2004;10(3):199-217. (4) Lety WOODRUFF et al. Haemophilia. 2004; 10(3):218-231. 10 Performed at: [address] [id number] Plastic And Reconstructive Surgeon: Matt Mcdonnell MD, Phone: [phone] Performed at: [facility] [address] [place], [place], [place] [id number] Plastic And Reconstructive Surgeon: Gary Youngblood MD, Phone: [phone] Performed at: - [facility] [address] [id number] Plastic And Reconstructive Surgeon: Teresa Nguyen MD, Phone: [phone] UNABLE TO PERFORM TEST DUE T [...] passenger travel. Testing and International Air Travel, cdc.gov/coronavirus/2019-ncov/[email or web address]-[email or web address]-ftmomn.html 09/01/2020 NOTE: The COVID-19 assay is under Emergency Use Authorization (EUA) by the U.S. Food and Drug Administration. 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 <15 on MECHANICAL OPERATOR 15 THE CEA ASSAY IS PERFORMED O N THE AtteroAUR BY CHEMILUMINESCENCE AND SHOULD NOT BE COMPARED [...] Little GFR Left ESRD GFR <15 on MECHANICAL OPERATOR 18 TRANSFUSED PRODUCT: PACKED C ELLS COUNT: [...] pathogens. DISCLAIMER: Testing was performed using the [employer] SARS-CoV-2 test. This test was developed and its performance characteristics determined by [employer]. This test has not been FDA cleared [...] Little GFR Left ESRD GFR <15 on MECHANICAL OPERATOR 30 TRANSFUSED PRODUCT: PACKED C ELLS COUNT: 2 31 Units are mL/min/1.73 m2 Chronic Kidney Disease Staging per NKF: Stage I & II GFR >=60 Normal to Mildly Decreased Stage III GFR 30-59 Moderately Decreased Stage IV GFR 15-29 Severely Decreased Stage V GFR <15 Very Little GFR Left ESRD GFR <15 on MECHANICAL OPERATOR 32 TRANSFUSED PRODUCT: PACKED C ELLS COUNT: 2 33 Units are mL/min/1.73 m2 Chronic Kidney Disease Staging per NKF: Stage I & II GFR >=60 Normal to Mildly Decreased Stage III GFR 30-59 Moderately Decreased Stage IV GFR 15-29 Severely Decreased Stage V GFR <15 Very Little GFR Left ESRD GFR <15 on MECHANICAL OPERATOR 34 THE CEA ASSAY IS PERFORMED O [...] Little GFR Left ESRD GFR <15 on MECHANICAL OPERATOR 36 ASSAY INFORMATION: Real Time RT-PCR NOTE: The COVID-19 assay has been cleared by the U.S. Food and Drug Administration under the Emergency Use Authorization (EUA). 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 Y/N query for Sepsis Lactate Rule: [...] 2.5-3.5 Procedures Date Code Description Status 03/28/2021 [id number] [place] W/I 7 Days Of DC, Comm W/I 2 Dys Completed 03/23/2021 [id number] Office/Outpatient Established Mo d MDM 30-39 Min Completed 03/23/2021 [id number] Diabetic Foot Exam Completed 01/25/2021 [id number] [place] W/I 7 Days Of DC, Comm W/I 2 Dys Completed 12/27/2020 [id number] Office/Outpatient Established Mo d MDM 30-39 Min Completed 12/19/2020 [id number] Office/Outpatient Established Mo d MDM 30-39 Min Completed 12/02/2020 [id number] [place] W/I 7 Days Of DC, Comm W/I 2 Dys Completed Medical Devices Description No Information Available Encounters Type Date Location Provider Dx Diagnosis Office Visit 03/28/2021 11:45a Main Office Nadiya Bryan FNP D64.9 Anemia, unspecified K29.61 Other gastritis with bleedin g Office Visit 03/23/2021 3:45p Main Office Nadiya Bryan, FIRE PATROLLER E11.6 9 Type 2 diabetes mellitus with other specified complication C18.9 Malignant neoplasm of colon, unspecified Z93.2 Ileostomy status E78.2 Mixed hyperlipidemia I10 Essential (primary) hyperten yara I48.91 Unspecified atrial fibrillat ion D64.9 Anemia, unspecified Office Visit 01/25/2021 2:15p Main Office Nadiya Bryan, FIRE PATROLLER D64.9 Anemia, unspecified K29.61 Other gastritis with bleedin g Office Visit 12/27/2020 3:45p Main Office Anitha Gamez M.D. 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 status C18.9 Malignant neoplasm of colon, unspecified I48.91 Unspecified atrial fibrillat ion Office Visit 12/02/2020 10:30a Main Office Nadiya Bryan, FIRE PATROLLER D64.9 Anemia, unspecified E11.69 Type 2 diabetes mellitus wit h other specified complication E78.2 Mixed hyperlipidemia I10 Essential (primary) hyperten yara Z93.2 Ileostomy status C18.9 Malignant neoplasm of colon, unspecified I48.91 Unspecified atrial fibrillat ion Assessments Date Code Description Provider 03/28/2021 D64.9 Anemia, unspecified Pleskach, Mo lly, FIRE PATROLLER 03/28/2021 K29.61 Other gastritis with bleeding Pl Nadiya hogan, FIRE PATROLLER 03/23/2021 E11.69 Type 2 diabetes mellitus with ot her specified complication Pleskach, Nadiya, FIRE PATROLLER 03/23/2021 C18.9 Malignant neoplasm of colon, uns pecified Pleskach, Nadiya, FIRE PATROLLER 03/23/2021 Z93.2 Ileostomy status Pleskach, Nadiya , FIRE PATROLLER 03/23/2021 E78.2 Mixed hyperlipidemia Pleskach, M jarocho, FIRE PATROLLER 03/23/2021 I10 Essential (primary) hypertension Pleskach, Nadiya, FIRE PATROLLER 03/23/2021 I48.91 Unspecified atrial fibrillation Pleskach, Nadiya, FIRE PATROLLER 03/23/2021 D64.9 Anemia, unspecified Pleskach, Mo lly, FIRE PATROLLER 01/25/2021 D64.9 Anemia, unspecified Pleskach, Mo lly, FIRE PATROLLER 01/25/2021 K29.61 Other gastritis with bleeding Pl Nadiya hogan, FIRE PATROLLER 12/27/2020 E11.69 Type 2 diabetes mellitus with ot her specified complication Anitha Gamez M.D. 12/27/2020 C18.9 Malignant neoplasm of colon, uns pecified Anitha Gamez M.D. 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 12/27/2020 D64.9 Anemia, unspecified Angela Gamez M.D. 12/19/2020 E11.69 Type 2 diabetes mellitus with ot her specified complication Pleskach, Nadiya, FIRE PATROLLER 12/19/2020 E78.2 Mixed hyperlipidemia Pleskach, M jarocho, FIRE PATROLLER 12/19/2020 I10 Essential (primary) hypertension Pleskach, Nadiya, FIRE PATROLLER 12/19/2020 Z93.2 Ileostomy status Pleskach, Nadiya , FIRE PATROLLER 12/19/2020 C18.9 Malignant neoplasm of colon, uns pecified Pleskach, Nadiya, FIRE PATROLLER 12/19/2020 I48.91 Unspecified atrial fibrillation Nadiya Bryan, FIRE PATROLLER 12/02/2020 D64.9 Anemia, unspecified RandiDeejay, FIRE PATROLLER 12/02/2020 E11.69 Type 2 diabetes mellitus with ot her specified complication Nadiya Bryan, FIRE PATROLLER 12/02/2020 E78.2 Mixed hyperlipidemia PleChayo traceyly, FIRE PATROLLER 12/02/2020 I10 Essential (primary) hypertension Nadiya Brayn, FIRE PATROLLER 12/02/2020 Z93.2 Ileostomy status Nadiya Bryan , FIRE PATROLLER 12/02/2020 C18.9 Malignant neoplasm of colon, uns pecified Nadiya Bryan, FIRE PATROLLER 12/02/2020 I48.91 Unspecified atrial fibrillation Nadiya Bryan [...] to Reason for Referral Status Appt Date [facility] nose bleed. Sent [phone] [facility], [address] [phone]
--- OUTSIDE RECORDS SUMMARY | 2021-06-19 13:41 | CCD | Continuity of Care Document ---
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 AUTM [phone] [facility] AUTM Jeff Cramer AUTM [phone] Problems Active Problems Provider Date Type 2 [...] 236units C18.9 Nadiya Bryan FNP 06/16/2020 Z93.2 Laceys Spring Remover Wipes Misc use 3-4 wipes every 4 days and as needed when changing ostomy 2Box Z93.2 Nadiya Bryan FNP 06/16/2020 C18.9 Efren Adapt Ceraing change every 4-5 days and as needed ref #[id number] 05 20units Nadiya Bryan FNP 05/05/2020 Taylor 2 Piece Ostomy Skin Barrier ref # [id number] márquez ge every 4-5 days and as needed 20units C18.9 Nadiya Bryan FNP 04/14/2020 Z93.2 Taylor 2 Piece Drainable Ostomy Pouch ref # [id number] c hange every 4-5 days and as [...] CPT Code Status Date Vaccine Lot # [id number] Refused 04/17/2016 Pneumococcal Vaccine 26732 Refused 04/17/2016 Prevnar 13 46096 Refused 04/17/2016 Influenza Vaccination Vital Signs Date Vital Result Comment 03/28/2021 11:51am BP Systolic 113 mmHg BP Diastolic 83 mmHg Heart Rate 127 /min Body Temperature 98.0 F Respiratory Rate 18 /min Height 61.5 inches 5'1.50" Weight 114.38 lb O2 % BldC Oximetry 100 % Warrior Body Weight 105 lb BMI (Body Mass Index) 21.3 kg/m2 03/23/2021 3:47pm BP Systolic 110 mmHg BP Diastolic 62 mmHg Heart Rate 64 /min Body Temperature 98.7 F Respiratory Rate 16 /min Height 61.5 inches 5'1.50" Weight 116.38 lb O2 % BldC Oximetry 99 % Warrior Body Weight 105 lb BMI (Body Mass Index) 21.6 kg/m2 Results Test Acquired Date Facility Test Result H/L Range Note Laboratory test finding 05/24/2021 [facility] [place], [place] [id number] [phone] Packed Cells TRANSFUSED PRODU <SEE NOTE> 1 CBC With Differential 05/24/2021 Patient [facility] [place] [place] [id number] [phone] White Blood Count 5.2 10 Normal 4.0-10.0 [...] 36.0-66.0 Lymph % 4.2 % Low 24.0-44.0 Ripley % 11.7 % High 2.0-8.0 Eos % 1.9 % Normal 0.0-3.0 Baso % 0.6 % Normal 0.0-1.0 Immature Granulocyte % 0.6 % Normal 0-3.0 Nucleated Red Blood Cell % 0.0 % Normal 0-0 Neutrophils # 4.2 10 Normal 1.5-8.5 Lymph # 0.2 10 Low 1.5-5.0 Ripley # 0.6 10 Normal 0.0-0.8 Eos # 0.1 10 Normal 0.0-0.5 Baso # 0.0 10 Normal 0.0-0.2 Type & Screen -Incl Blood Type,Tye,AB SC 05/17/2021 [facility] [place] [id number] [phone] Blood Type O POSITIVE Normal AB Screen (Indirect Farooq)Vis NEGATIVE Normal Laboratory test finding 05/17/2021 [place] [address] [phone] Packed Cells TRANSFUSED PRODU <SEE NOTE> 2 CBC With Differential 05/17/2021 [place] [address] [phone] White Blood Count 4.6 10 Normal 4.0-10.0 [...] 36.0-66.0 Lymph % 5.7 % Low 24.0-44.0 Ripley % 11.3 % High 2.0-8.0 Eos % 1.7 % Normal 0.0-3.0 Baso % 0.4 % Normal 0.0-1.0 Immature Granulocyte % 0.4 % Normal 0-3.0 Nucleated Red Blood Cell % 0.0 % Normal 0-0 Neutrophils # 3.7 10 Normal 1.5-8.5 Lymph # 0.3 10 Low 1.5-5.0 Ripley # 0.5 10 Normal 0.0-0.8 Eos # 0.1 10 Normal 0.0-0.5 Baso # 0.0 10 Normal 0.0-0.2 CBC With Differential 05/10/2021 [place] [address] [phone] White Blood Count 5.2 10 Normal 4.0-10.0 [...] 36.0-66.0 Lymph % 4.8 % Low 24.0-44.0 Ripley % 8.7 % High 2.0-8.0 Eos % 1.2 % Normal 0.0-3.0 Baso % 0.4 % Normal 0.0-1.0 Immature Granulocyte % 0.6 % Normal 0-3.0 Nucleated Red Blood Cell % 0.0 % Normal 0-0 Neutrophils # 4.4 10 Normal 1.5-8.5 Lymph # 0.3 10 Low 1.5-5.0 Ripley # 0.5 10 Normal 0.0-0.8 Eos # 0.1 10 Normal 0.0-0.5 Baso # 0.0 10 Normal 0.0-0.2 CBC With Differential 05/08/2021 [place] [address] [phone] White Blood Count 4.8 10 Normal 4.0-10.0 [...] 36.0-66.0 Lymph % 5.2 % Low 24.0-44.0 Ripley % 11.2 % High 2.0-8.0 Eos % 1.4 % Normal 0.0-3.0 Baso % 0.4 % Normal 0.0-1.0 Immature Granulocyte % 0.4 % Normal 0-3.0 Nucleated Red Blood Cell % 0.0 % Normal 0-0 Neutrophils # 3.9 10 Normal 1.5-8.5 Lymph # 0.3 10 Low 1.5-5.0 Ripley # 0.5 10 Normal 0.0-0.8 Eos # 0.1 10 Normal 0.0-0.5 Baso # 0.0 10 Normal 0.0-0.2 Type & Screen -Incl Blood Type,Tye,AB SC 05/08/2021 [place] [address] [phone] Blood Type O POSITIVE Normal AB Screen (Indirect Farooq)Vis NEGATIVE Normal Laboratory test finding 05/08/2021 [place] [address] [phone] Packed Cells TRANSFUSED PRODU <SEE NOTE> 3 Occult Blood 05/08/2021 [place] [address] [phone] Occult Blood OCCULT BLOOD 1 <SEE NOTE> Abnormal 4 Laboratory test finding 05/05/2021 [place] [address] [phone] Partial Thromboplastin Time 24.9 seconds Low 25 .9-37.0 Laboratory test finding 05/05/2021 Patient Service [place] [id number] [phone] Packed Cells TRANSFUSED PRODU <SEE NOTE> 5 Type & Screen -Incl Blood Type,Tye,AB SC 05/05/2021 [place] [address] [phone] Blood Type O POSITIVE Normal AB Screen (Indirect Farooq)Vis NEGATIVE Normal CBC With Differential 05/05/2021 [place] [address] [phone] White Blood Count 5.1 10 Normal 4.0-10.0 [...] 36.0-66.0 Lymph % 6.3 % Low 24.0-44.0 Ripley % 11.5 % High 2.0-8.0 Eos % 0.8 % Normal 0.0-3.0 Baso % 0.4 % Normal 0.0-1.0 Immature Granulocyte % 0.6 % Normal 0-3.0 Nucleated Red Blood Cell % 0.0 % Normal 0-0 Neutrophils # 4.1 10 Normal 1.5-8.5 Lymph # 0.3 10 Low 1.5-5.0 Ripley # 0.6 10 Normal 0.0-0.8 Eos # 0.0 10 Normal 0.0-0.5 Baso # 0.0 10 Normal 0.0-0.2 Factor VIII Panel 05/05/2021 [place] [address] [phone] F8 Activity For F8 Panel 214 % High 56-140 6 F8 Antigen For F8 Panel 115 % Normal 50-200 7 F8 Activity vWB For F8 Panel 71 % Normal 50-200 Interpretation: Note Normal . 8 Laboratory test finding 05/05/2021 [place] [address] [phone] LDH Lactate Dehydrogenase 128 U/L Normal 84-246 Haptoglobin 214 mg/dL Normal 41-333 9 Platelet Function Analysis 05/05/2021 [place] [address] [phone] Collagen Epinephrine TNP seconds Normal 74-162 10 Prothrombin Time/Inr 05/05/[address] [place] [address] [phone] Prothrombin Time 14.0 seconds Normal 12.7-14.5 Inr 1.04 Normal 11 Retic (Reticulocyte Count) 05/05/2021 [place] [address] [phone] Reticulocyte % 5.9 % High 0.5-1.5 Reticulocyte # 119.8 10 High 17-77 Retic Hemoglobin Equivalent 30.7 pg Normal 24-36 CBC With Differential 04/27/2021 [place] [address] [phone] White Blood Count 4.2 10 Normal 4.0-10.0 [...] 36.0-66.0 Lymph % 8.1 % Low 24.0-44.0 Ripley % 12.8 % High 2.0-8.0 Eos % 1.0 % Normal 0.0-3.0 Baso % 0.2 % Normal 0.0-1.0 Immature Granulocyte % 0.5 % Normal 0-3.0 Nucleated Red Blood Cell % 0.0 % Normal 0-0 Neutrophils # 3.3 10 Normal 1.5-8.5 Lymph # 0.3 10 Low 1.5-5.0 Ripley # 0.5 10 Normal 0.0-0.8 Eos # 0.0 10 Normal 0.0-0.5 Baso # 0.0 10 Normal 0.0-0.2 CBC With Differential 04/20/2021 Patient Service Ce [place], [place] [address] [phone] White Blood Count 3.9 10 Low 4.0-10.0 [...] 36.0-66.0 Lymph % 8.8 % Low 24.0-44.0 Ripley % 11.9 % High 2.0-8.0 Eos % 1.0 % Normal 0.0-3.0 Baso % 0.5 % Normal 0.0-1.0 Immature Granulocyte % 0.8 % Normal 0-3.0 Nucleated Red Blood Cell % 0.0 % Normal 0-0 Neutrophils # 3.0 10 Normal 1.5-8.5 Lymph # 0.3 10 Low 1.5-5.0 Ripley # 0.5 10 Normal 0.0-0.8 Eos # 0.0 10 Normal 0.0-0.5 Baso # 0.0 10 Normal 0.0-0.2 CBC With Differential 04/12/2021 Patient Service Ce [place], [place] [address]655 [phone] White Blood Count 4.6 10 Normal 4.0-10.0 [...] 36.0-66.0 Lymph % 6.6 % Low 24.0-44.0 Ripley % 9.4 % High 2.0-8.0 Eos % 0.9 % Normal 0.0-3.0 Baso % 0.2 % Normal 0.0-1.0 Immature Granulocyte % 0.4 % Normal 0-3.0 Nucleated Red Blood Cell % 0.0 % Normal 0-0 Neutrophils # 3.8 10 Normal 1.5-8.5 Lymph # 0.3 10 Low 1.5-5.0 Ripley # 0.4 10 Normal 0.0-0.8 Eos # 0.0 10 Normal 0.0-0.5 Baso # 0.0 10 Normal 0.0-0.2 Coronavirus 2019 Nasopharygeal 04/10/2021 Patient [place], [place] [id number] [phone] Coronavirus 2019 Nasopharygeal ASSAY INFORMATIO <SEE N OTE> 12 Comprehensive Metabolic Profil 04/07/20[place] [address] [phone] Glucose, Fasting 184 mg/dL High 70-100 Blood Urea Nitrogen 30 mg/dL High 7-18 Creatinine For GFR 0.81 mg/dL Normal 0.55-1.30 Glomerular Filtration Rate > 60.0 Normal >32 1 3 Sodium Level 141 mEq/L Normal 136-145 [...] Binding Capacit 04/07/2021 [place] [address] [phone] Iron (Fe) 48 g/dL Low 50-170 Total Iron Binding Capacity 353 g/dL Normal 250-450 Percent Saturation 13.6 % Normal 13.2-45.0 Laboratory test finding 04/07/2021 [place] [address] [phone] Carcinoembryonic Antigen < 0.5 NG/ML Normal <2.5 14 Ferritin 66 NG/ML Normal 8-252 CBC With Differential 04/07/2021 [place] [address] [phone] White Blood Count 3.4 10 Low 4.0-10.0 [...] 36.0-66.0 Lymph % 8.5 % Low 24.0-44.0 Ripley % 10.9 % High 2.0-8.0 Eos % 0.9 % Normal 0.0-3.0 Baso % 0.6 % Normal 0.0-1.0 Immature Granulocyte % 0.6 % Normal 0-3.0 Nucleated Red Blood Cell % 0.0 % Normal 0-0 Neutrophils # 2.7 10 Normal 1.5-8.5 Lymph # 0.3 10 Low 1.5-5.0 Ripley # 0.4 10 Normal 0.0-0.8 Eos # 0.0 10 Normal 0.0-0.5 Baso # 0.0 10 Normal 0.0-0.2 Laboratory test finding 04/07/2021 [place] [address] [phone] Packed Cells TRANSFUSED PRODU <SEE NOTE> 15 Type & Screen -Incl Blood Type,Tye,AB SC 04/07/2021 [place] [address] [phone] Blood Type O POSITIVE Normal AB Screen (Indirect Farooq)Vis NEGATIVE Normal CBC With Differential 03/24/2021 [place] [address] [phone] White Blood Count 4.6 10 Normal 4.0-10.0 [...] 36.0-66.0 Lymph % 6.2 % Low 24.0-44.0 Ripley % 11.4 % High 2.0-8.0 Eos % 0.4 % Normal 0.0-3.0 Baso % 0.4 % Normal 0.0-1.0 Immature Granulocyte % 0.4 % Normal 0-3.0 Nucleated Red Blood Cell % 0.7 % High 0-0 Neutrophils # 3.7 10 Normal 1.5-8.5 Lymph # 0.3 10 Low 1.5-5.0 Ripley # 0.5 10 Normal 0.0-0.8 Eos # 0.0 10 Normal 0.0-0.5 Baso # 0.0 10 Normal 0.0-0.2 Laboratory test finding 03/24/2021 [place] [address] [phone] Packed Cells TRANSFUSED PRODU <SEE NOTE> 16 Influenza A/B RSV Covid Amp 03/24/2021 [place] [address] [phone] Influenza A Amplification NEGATIVE Normal Negati ve 17 Influenza B Amplification NEGATIVE Normal Negative 18 RSV Amplification NEGATIVE Normal Negative 19 Sars Covid-19 Amplification NEGATIVE Normal Negative 20 Comprehensive Metabolic Profil 03/24/2021 Patient [facility] [place], [place] [id number] [phone] Glucose, Fasting 96 mg/dL Normal 70-100 Blood [...] Low 3.2-5.2 Albumin/Globulin Ratio 1.0 Low 1.2-2.2 Metabolic Panel (14), Comprehensive 03/17/2021 [facility] [address] [place] [address] [phone] Calcium 9.5 mg/dL 8.7-10.3 Glucose 81 mg/dL [...] IU/L 0-32 Lipid Panel 03/17/2021 [facility] [address] [place] [address] [phone] Cholesterol, Total 123 mg/dL 100-199 Triglycerides 141 mg/dL 0-149 HDL Cholesterol 37 mg/dL Low >39 VLDL Cholesterol Mark 25 mg/dL 5-40 LDL Chol Calc (Nih) 61 mg/dL 0-99 Comment: TNP Hemoglobin A1c 03/17/[address] [facility] [address] [place] [phone] Hemoglobin A1c 4.8 % 4.8-5.6 24 Albumin/Creatinine Ratio, Random Urine 03/17/2021 [facility] [address] [place] [address] [phone] Creatinine, Urine 120.2 mg/dL Not Estab. Albumin, Urine 20.1 ug/mL Not Estab. Alb/Creat Ratio 17 mg/gcreat 0-29 25 CBC With Differential 03/14/[address] [facility] [place] [address] [phone] White Blood Count 4.0 10 Normal 4.0-10.0 [...] 36.0-66.0 Lymph % 6.8 % Low 24.0-44.0 Ripley % 9.3 % High 2.0-8.0 Eos % 1.0 % Normal 0.0-3.0 Baso % 0.8 % Normal 0.0-1.0 Immature Granulocyte % 0.3 % Normal 0-3.0 Nucleated Red Blood Cell % 0.0 % Normal 0-0 Neutrophils # 3.3 10 Normal 1.5-8.5 Lymph # 0.3 10 Low 1.5-5.0 Ripley # 0.4 10 Normal 0.0-0.8 Eos # 0.0 10 Normal 0.0-0.5 Baso # 0.0 10 Normal 0.0-0.2 Type & Screen -Incl Blood Type,Tye,AB SC 03/14/2021 [place] [address] [phone] Blood Type O POSITIVE Normal AB Screen (Indirect Farooq)Vis NEGATIVE Normal Laboratory test finding 03/14/2021 [place] [address] [phone] Packed Cells TRANSFUSED PRODU <SEE NOTE> 26 Laboratory test finding 03/10/2021 [place] [address] [phone] Carcinoembryonic Antigen < 0.5 NG/ML Normal <2.5 27 Ferritin 492 NG/ML High 8-252 Total Iron Binding Capacit 03/10/2021 [place] [address] [phone] Iron (Fe) 72 g/dL Normal 50-170 Total Iron Binding Capacity 352 g/dL Normal 250-450 Percent Saturation 20.5 % Normal 13.2-45.0 CBC With Differential 03/10/2021 [place] [address] [phone] White Blood Count 3.4 10 Low 4.0-10.0 [...] 36.0-66.0 Lymph % 7.6 % Low 24.0-44.0 Ripley % 12.9 % High 2.0-8.0 Eos % 1.2 % Normal 0.0-3.0 Baso % 0.6 % Normal 0.0-1.0 Immature Granulocyte % 0.3 % Normal 0-3.0 Nucleated Red Blood Cell % 0.0 % Normal 0-0 Neutrophils # 2.6 10 Normal 1.5-8.5 Lymph # 0.3 10 Low 1.5-5.0 Ripley # 0.4 10 Normal 0.0-0.8 Eos # 0.0 10 Normal 0.0-0.5 Baso # 0.0 10 Normal 0.0-0.2 Comprehensive Metabolic Profil 03/10/20[place] [address] [phone] Glucose, Fasting 166 mg/dL High 70-100 Blood Urea Nitrogen 26 mg/dL High 7-18 Creatinine For GFR 0.73 mg/dL Normal 0.55-1.30 Glomerular Filtration Rate > 60.0 Normal >32 2 8 Sodium Level 141 mEq/L Normal 136-145 [...] -Incl Blood Type,Tye,AB SC 02/28/2021 [place] [address] [phone] Blood Type O POSITIVE Normal AB Screen (Indirect Farooq)Vis NEGATIVE Normal Laboratory test finding 02/28/2021 [place] [address] [phone] Packed Cells TRANSFUSED PRODU <SEE NOTE> 29 Laboratory test finding 02/27/2021 [place] [address] [phone] Blood Urea Nitrogen 26 mg/dL High 7-18 Creatinine With GFR 02/27/2021 [place] [address] [phone] Creatinine For GFR 0.76 mg/dL Normal 0.55-1.30 Glomerular Filtration Rate > 60.0 Normal >32 3 0 Total Iron Binding Capacit 02/27/2021 Patient [facility] [place] [id number] [phone] Iron (Fe) 79 g/dL Normal 50-170 Total Iron Binding Capacity 384 g/dL Normal 250-450 Percent Saturation 20.6 % Normal 13.2-45.0 Laboratory test finding 02/27/2021 [place] [address] [phone] Ferritin 1039 NG/ML High 8-252 CBC With Differential 02/27/2021 [place] [address] [phone] White Blood Count 6.0 10 Normal 4.0-10.0 [...] 36.0-66.0 Lymph % 4.7 % Low 24.0-44.0 Ripley % 11.6 % High 2.0-8.0 Eos % 0.5 % Normal 0.0-3.0 Baso % 0.3 % Normal 0.0-1.0 Immature Granulocyte % 0.8 % Normal 0-3.0 Nucleated Red Blood Cell % 0.3 % High 0-0 Neutrophils # 4.9 10 Normal 1.5-8.5 Lymph # 0.3 10 Low 1.5-5.0 Ripley # 0.7 10 Normal 0.0-0.8 Eos # 0.0 10 Normal 0.0-0.5 Baso # 0.0 10 Normal 0.0-0.2 Laboratory test finding 02/10/2021 [place] [address] [phone] Packed Cells TRANSFUSED PRODU <SEE NOTE> 31 Type & Screen -Incl Blood Type,Tye,AB SC 02/10/2021 [place] [address] [phone] Blood Type O POSITIVE Normal AB Screen (Indirect Farooq)Vis NEGATIVE Normal CBC With Differential 02/09/2021 Patient Service Ce [facility]ter [place] [address]48933 [phone] White Blood Count 3.9 10 Low 4.0-10.0 [...] 36.0-66.0 Lymph % 7.2 % Low 24.0-44.0 Ripley % 10.0 % High 2.0-8.0 Eos % 1.0 % Normal 0.0-3.0 Baso % 0.5 % Normal 0.0-1.0 Immature Granulocyte % 0.5 % Normal 0-3.0 Nucleated Red Blood Cell % 0.0 % Normal 0-0 Neutrophils # 3.1 10 Normal 1.5-8.5 Lymph # 0.3 10 Low 1.5-5.0 Ripley # 0.4 10 Normal 0.0-0.8 Eos # 0.0 10 Normal 0.0-0.5 Baso # 0.0 10 Normal 0.0-0.2 CBC With Differential 01/27/2021 [place] [address] [phone] White Blood Count 4.2 10 Normal 4.0-10.0 [...] 36.0-66.0 Lymph % 13.6 % Low 24.0-44.0 Ripley % 14.6 % High 2.0-8.0 Eos % 1.4 % Normal 0.0-3.0 Baso % 0.5 % Normal 0.0-1.0 Immature Granulocyte % 0.5 % Normal 0-3.0 Nucleated Red Blood Cell % 0.0 % Normal 0-0 Neutrophils # 2.9 10 Normal 1.5-8.5 Lymph # 0.6 10 Low 1.5-5.0 Ripley # 0.6 10 Normal 0.0-0.8 Eos # 0.1 10 Normal 0.0-0.5 Baso # 0.0 10 Normal 0.0-0.2 Laboratory test finding 01/27/2021 [place] [address] [phone] Ferritin 39 NG/ML Normal 8-252 Carcinoembryonic Antigen 0.5 NG/ML Normal <2.5 32 Total Iron Binding Capacit 01/27/2021 [place] [address] [phone] Iron (Fe) 59 g/dL Normal 50-170 Total Iron Binding Capacity 397 g/dL Normal 250-450 Percent Saturation 14.9 % Normal 13.2-45.0 Comprehensive Metabolic Profil 01/27/2021 Patient [place], [place] [address]113993 [phone] Glucose, Fasting 59 mg/dL Low 70-100 Blood [...] Low 1.2-2.2 Complete Blood Count 01/20/2021 [place] [address] [phone] White Blood Count 3.3 10 Low 4.0-10.0 [...] 0-0 Laboratory test finding 01/20/2021 Patient [facility] [place], [place] 4810459 [phone] Blood Urea Nitrogen 21 mg/dL High 7-18 Creatinine With GFR 01/20/2021 [place] [address] [phone] Creatinine For GFR 0.69 mg/dL Normal 0.55-1.30 Glomerular Filtration Rate > 60.0 Normal >32 3 4 Type & Screen -Incl Blood Type,Tye,AB SC 01/20/2021 Patient Service [place] 6955155 [phone] Blood Type O POSITIVE Normal AB Screen (Indirect Farooq)Vis NEGATIVE Normal Coronavirus 2019 Nasopharygeal 01/16/2021 [place] [address] [phone] Coronavirus 2019 Nasopharygeal ASSAY INFORMATIO <SEE N OTE> 35 Laboratory test finding 01/03/2021 [place] [address] [phone] Packed Cells TRANSFUSED PRODU <SEE NOTE> 36 Type & Screen -Incl Blood Type,Tye,AB SC 01/03/2021 [place] [address] [phone] Blood Type O POSITIVE Normal AB Screen (Indirect Farooq)Vis NEGATIVE Normal CBC With Differential 01/02/2021 Patient Service Ce nter [place] 9948937 [phone] White Blood Count 4.3 10 Normal 4.0-10.0 [...] 36.0-66.0 Lymph % 10.7 % Low 24.0-44.0 Ripley % 13.1 % High 2.0-8.0 Eos % 0.7 % Normal 0.0-3.0 Baso % 0.5 % Normal 0.0-1.0 Immature Granulocyte % 0.5 % Normal 0-3.0 Nucleated Red Blood Cell % 0.0 % Normal 0-0 Neutrophils # 3.2 10 Normal 1.5-8.5 Lymph # 0.5 10 Low 1.5-5.0 Ripley # 0.6 10 Normal 0.0-0.8 Eos # 0.0 10 Normal 0.0-0.5 Baso # 0.0 10 Normal 0.0-0.2 Comprehensive Metabolic Profil 01/02/2021 [place] [address] [phone] Glucose, Fasting 155 mg/dL High 70-100 Blood Urea Nitrogen 24 mg/dL High 7-18 Creatinine For GFR 0.85 mg/dL Normal 0.55-1.30 Glomerular Filtration Rate > 60.0 Normal >32 3 7 Sodium Level 137 mEq/L Normal 136-145 Potassium [...] Total Iron Binding Capacit 01/02/2021 [place] [address] [phone] Iron (Fe) 55 g/dL Normal 50-170 Total Iron Binding Capacity 398 g/dL Normal 250-450 Percent Saturation 13.8 % Normal 13.2-45.0 Laboratory test finding 01/02/2021 [facility] [place] 9948996 [phone] Thyroid Stimulating Hormone 1.660 uIU/ML Normal 0. 358-3.740 Free T4 0.87 ng/dL Normal 0.76-1.46 Ferritin 58 NG/ML Normal 8-252 Laboratory test finding 12/23/2020 [place] [address] [phone] iSTAT Troponin 0.01 NG/ML Normal 0.00-0.08 Istat Chem8+ Panel 12/23/2020 [place] [address] [phone] iSTAT HCT 33.0 % Low 38.0-51.0 iSTAT Glucose 94 mg/dL Normal 70-105 iSTAT Sodium 138 mEq/L Normal 136-145 iSTAT Potassium 4.2 mEq/L Normal 3.5-5.1 iSTAT CA++ 5.0 mg/dL Normal 4.5-5.3 iSTAT Chloride 102 mEq/L Normal 98-109 iSTAT Co2 27.0 MM/L Normal 23.0-27.0 iSTAT BUN 20 mg/dL Normal 8-26 iSTAT Creatinine 0.7 mg/dL Normal 0.6-1.3 CBC With Differential 12/23/2020 [place] [address] [phone] White Blood Count 4.5 10 Normal 4.0-10.0 [...] 36.0-66.0 Lymph % 9.7 % Low 24.0-44.0 Ripley % 11.9 % High 2.0-8.0 Eos % 0.9 % Normal 0.0-3.0 Baso % 0.4 % Normal 0.0-1.0 Immature Granulocyte % 0.4 % Normal 0-3.0 Nucleated Red Blood Cell % 0.0 % Normal 0-0 Neutrophils # 3.5 10 Normal 1.5-8.5 Lymph # 0.4 10 Low 1.5-5.0 Ripley # 0.5 10 Normal 0.0-0.8 Eos # 0.0 10 Normal 0.0-0.5 Baso # 0.0 10 Normal 0.0-0.2 PT & Aptt 12/23/2020 [place] [address] [phone] Prothrombin Time 13.3 seconds Normal 12.5-14.3 Inr 0.99 Normal 38 Partial Thromboplastin Time 29.5 seconds Normal 24.2-38.5 Liver Profile 12/23/2020 [place] [address] [phone] Ast/Sgot 13 U/L Normal 7-37 Alt/SGPT 14 U/L Normal 12-78 Alkaline Phosphatase 95 U/L Normal 45-117 Bilirubin,Total 0.9 mg/dL Normal 0.2-1.0 Bilirubin,Direct 0.3 mg/dL High 0.0-0.2 Total Protein 6.5 GM/DL Normal 6.4-8.2 Albumin 3.4 GM/DL Normal 3.2-5.2 Albumin/Globulin Ratio 1.1 Low 1.2-2.2 Laboratory test finding 12/23/2020 [place] [address] [phone] Lipase 73 U/L Normal 73-393 Lactic Acid Sepsis Protocol 0.8 mmol/L Normal 0.4-2.0 39 CBC With Differential 12/19/2020 [place] [address] [phone] White Blood Count 3.8 10 Low 4.0-10.0 [...] 36.0-66.0 Lymph % 11.7 % Low 24.0-44.0 Ripley % 11.9 % High 2.0-8.0 Eos % 1.1 % Normal 0.0-3.0 Baso % 0.3 % Normal 0.0-1.0 Immature Granulocyte % 0.5 % Normal 0-3.0 Nucleated Red Blood Cell % 0.0 % Normal 0-0 Neutrophils # 2.8 10 Normal 1.5-8.5 Lymph # 0.4 10 Low 1.5-5.0 Ripley # 0.5 10 Normal 0.0-0.8 Eos # 0.0 10 Normal 0.0-0.5 Baso # 0.0 10 Normal 0.0-0.2 CBC With Differential 12/05/2020 Patient Service [place] 6872724 [phone] White Blood Count 3.4 10 Low 4.0-10.0 [...] 36.0-66.0 Lymph % 12.8 % Low 24.0-44.0 Ripley % 13.7 % High 2.0-8.0 Eos % 1.2 % Normal 0.0-3.0 Baso % 0.6 % Normal 0.0-1.0 Immature Granulocyte % 0.3 % Normal 0-3.0 Nucleated Red Blood Cell % 0.0 % Normal 0-0 Neutrophils # 2.4 10 Normal 1.5-8.5 Lymph # 0.4 10 Low 1.5-5.0 [place]y # 0.5 10 Normal 0.0-0.8 Eos # 0.0 10 Normal 0.0-0.5 Baso # 0.0 10 Normal 0.0-0.2 PT & Aptt 12/05/2020 [place] [address] [phone] Prothrombin Time 13.3 seconds Normal 12.5-14.3 Inr 0.99 Normal 40 Partial Thromboplastin Time 29.4 seconds Normal 24.2-38.5 Total Iron Binding Capacit 12/05/2020 [place] [address] [phone] Iron (Fe) 94 g/dL Normal 50-170 Total Iron Binding Capacity 350 g/dL Normal 250-450 Percent Saturation 26.9 % Normal 13.2-45.0 Laboratory test finding 12/05/2020 [place] [address] [phone] Ferritin 108 NG/ML Normal 8-252 PT & Aptt 11/25/2020 [place] [address] [phone] Prothrombin Time 16.4 seconds High 12.5-14.3 Inr 1.29 Normal 41 Partial Thromboplastin Time 33.4 seconds Normal 24.2-38.5 Complete Blood Count 11/25/2020 [place] [address] [phone] White Blood Count 4.4 10 Normal 4.0-10.0 [...] 0-0 Comprehensive Metabolic Profil 11/25/2020 Patient [place] [address] [phone] Glucose, Fasting 110 mg/dL High 70-100 Blood Urea Nitrogen 22 mg/dL High 7-18 Creatinine For GFR 0.68 mg/dL Normal 0.55-1.30 Glomerular Filtration Rate > 60.0 Normal >32 4 2 Sodium Level 140 mEq/L Normal 136-145 [...] 1.2-2.2 Cardiac Marker Panel 11/25/2020 [place] [address] [phone] CPK Creatine Phosphokinase 60 U/L Normal 26-19 2 CK-MB Value Mass 1.3 NG/ML Normal <3.6 MB/CK Relative Index 2.17 Normal < Or =4 43 Troponin I < 0.02 NG/ML Normal < 0.10 44 Laboratory test finding 11/25/2020 [place] [address] [phone] NT-Pro BNP 1795 pg/mL High <450 Type & Screen -Incl Blood Type,Tye,AB SC 11/25/2020 [place] [address] [phone] Blood Type O POSITIVE Normal AB Screen (Indirect Farooq)Vis NEGATIVE Normal 1 TRANSFUSED PRODUCT: PACKED C ELLS COUNT: 2 2 TRANSFUSED PRODUCT: PACKED C ELLS COUNT: 2 3 TRANSFUSED PRODUCT: PACKED C ELLS COUNT: 1 4 OCCULT BLOOD 1 POSITIVE 5 TRANSFUSED PRODUCT: PACKED C ELLS COUNT: 2 6 FVIII activity can increase in a [...] developed and its performance characteristics determined by [email or web address]. It has not been cleared or approved [...] cofactor activity; FVIII - factor VIII activity. PATCH SETTER: For questions regarding panel interpretation, please contact Mikal Wasserman M.D. at [facility] at . DISCLAIMER These assessments and [...] (1) The National Heart, Lung and Blood Vida. The Diagnosis, Evaluation and Management of von Willebrand Disease. [place]: National Institutes of Health Publication 08-5832. 2007. Available at http://www.nhlbi.nih.gov/guidelines/vwd/. (2) Cr WL et al. Am J Hematol. 2009; 84(6):366-370. (3) Pam Domingo et al. Haemophilia. 2004;10(3):199-217. (4) Colemani KJ et al. Haemophilia. 2004; 10(3):218-231. 9 Performed at: [facility] [employer] [address] [id number] Coal Washer Tender: Matt Mcdonnell MD, Phone: [phone] Performed at: [facility] [address] [place] [address] [address], [place], [place] [id number] Coal Washer Tender: Gary Youngblood MD, Phone: [phone] Performed at: [address] [id number] Coal Washer Tender: Teresa Nguyen MD, Phone: [phone] UNABLE TO PERFORM TEST DUE T O hct <35% 11 THERAPUTIC HUMAN INR VALUES INDICATIONS NORMAL RANGES PROPHYLAXIS/TREATMENT OF: VENOUS THROMBOSIS 2.0-3.0 PULMONARY EMBOLISM 2.0-3.0 PREVENTION OF SYSTEMIC EMBOLISM FROM: TISSUE HEART VALVES 2.0-3.0 ACUTE MYOCARDIAL INFARCTION 2.0-3.0 VALVULAR HEART DISEASE 2.0-3.0 ATRIAL FIBRILLATION 2.0-3.0 MECHANICAL VALVES(HIGH RISK) 2.5-3.5 RECURRENT MYOCARDIAL INFARCTION 2.5-3.5 12 ASSAY INFORMATION: Real Time RT-PCR or TMA. Both RT-PCR and TMA are nucleic acid amplification tests (NAAT) which are molecular testing modalities and recommended by the CDC for passenger travel. Testing and International Air Travel, cdc.gov/coronavirus/2019-ncov/travelers/wnwxavd-dob-byctbe.html 09/01/2020 NOTE: The COVID-19 assay is under Emergency Use Authorization (EUA) by the U.S. Food and Drug Administration. [facility] and [facility] are designated as high complexity laboratories by the Clinical Laboratory Improvement Amendments of 1988 (CLIA) and are qualified to perform this test. Not Detected 13 Units are mL/min/1.73 m2 Chronic Kidney Disease Staging per NKF: Stage I & II GFR >=60 Normal to Mildly Decreased Stage III GFR 30-59 Moderately Decreased Stage IV GFR 15-29 Severely Decreased Stage V GFR <15 Very Little GFR Left ESRD GFR <15 on FLAME DEGREASER 14 THE CEA ASSAY IS PERFORMED O N THE [employer] Systems[employer] BY CHEMILUMINESCENCE AND SHOULD NOT BE COMPARED INTERCHANGEABLY WITH OTHER METHODS. IT SHOULD NOT BE USED ALONE A SCREENING TEST OR DIAGNOSIS FOR THE PRESENCE OR ABSENCE OF MALIGNANT DISEASE. PREDICTIONS OF DISEASE RECURRENCE SHOULD NOT BE BASED SOLELY ON VALUES OBTAINED FROM SERIAL PATIENT SERUM VALUES. 15 TRANSFUSED PRODUCT: PACKED C ELLS COUNT: 3 16 TRANSFUSED PRODUCT: PACKED C ELLS COUNT: 1 17 Negative results do not prec lude [...] treatment or other patient management decisions. 20 A false negative result may occur if [...] pathogens. DISCLAIMER: Testing was performed using the CEPHEID SARS-CoV-2 test. This test was developed and its performance characteristics determined by [employer]. This test has not been FDA cleared [...] the authorization is terminated or revoked sooner. 21 Units are mL/min/1.73 m2 Chronic Kidney Disease Staging per NKF: Stage I & II GFR >=60 Normal to Mildly Decreased Stage III GFR 30-59 Moderately Decreased Stage IV GFR 15-29 Severely Decreased Stage V GFR <15 Very Little GFR Left ESRD GFR <15 on FLAME DEGREASER 22 [facility] currently reports eGFR in compliance [...] 44 - 121 44 - 121 24 Prediabetes: 5.7 - 6.4 Diabetes: >6.4 Glycemic control for adults with diabetes: <7.0 25 Normal: 0 - 29 Moderately increased: 30 - 300 Severely increased: >300 26 TRANSFUSED PRODUCT: PACKED C ELLS COUNT: 2 27 THE CEA ASSAY IS PERFORMED O N THE [employer] BY CHEMILUMINESCENCE AND SHOULD NOT BE [...] Little GFR Left ESRD GFR <15 on FLAME DEGREASER 29 TRANSFUSED PRODUCT: PACKED C ELLS COUNT: 2 30 Units are mL/min/1.73 m2 Chronic Kidney Disease Staging per NKF: Stage I & II GFR >=60 Normal to Mildly Decreased Stage III GFR 30-59 Moderately Decreased Stage IV GFR 15-29 Severely Decreased Stage V GFR <15 Very Little GFR Left ESRD GFR <15 on FLAME DEGREASER 31 TRANSFUSED PRODUCT: PACKED C ELLS COUNT: 2 32 THE CEA ASSAY IS PERFORMED O N THE [employer] BY CHEMILUMINESCENCE AND SHOULD NOT BE COMPARED INTERCHANGEABLY WITH OTHER METHODS. IT SHOULD NOT BE USED ALONE A SCREENING TEST OR DIAGNOSIS FOR THE PRESENCE OR ABSENCE OF MALIGNANT DISEASE. PREDICTIONS OF DISEASE RECURRENCE SHOULD NOT BE BASED SOLELY ON VALUES OBTAINED FROM SERIAL PATIENT SERUM VALUES. 33 Units are mL/min/1.73 m2 Chronic Kidney Disease Staging per NKF: Stage I & II GFR >=60 Normal to Mildly Decreased Stage III GFR 30-59 Moderately Decreased Stage IV GFR 15-29 Severely Decreased Stage V GFR <15 Very Little GFR Left ESRD GFR <15 on FLAME DEGREASER 34 Units are mL/min/1.73 m2 Chronic Kidney Disease Staging per NKF: Stage I & II GFR >=60 Normal to Mildly Decreased Stage III GFR 30-59 Moderately Decreased Stage IV GFR 15-29 Severely Decreased Stage V GFR <15 Very Little GFR Left ESRD GFR <15 on FLAME DEGREASER 35 ASSAY INFORMATION: Real Time RT-PCR NOTE: The COVID-19 assay has been cleared by the U.S. Food and Drug Administration under the Emergency Use Authorization (EUA). [facility] and [facility] are designated as high complexity laboratories by the Clinical Laboratory Improvement Amendments of 1988(CLIA) and are qualified to perform this test. Not Detected 36 TRANSFUSED PRODUCT: PACKED C ELLS COUNT: 1 37 Units are mL/min/1.73 m2 Chronic Kidney Disease Staging per NKF: Stage I & II GFR >=60 Normal to Mildly Decreased Stage III GFR 30-59 Moderately Decreased Stage IV GFR 15-29 Severely Decreased Stage V GFR <15 Very Little GFR Left ESRD GFR <15 on FLAME DEGREASER 38 THERAPUTIC HUMAN INR VALUES INDICATIONS NORMAL RANGES PROPHYLAXIS/TREATMENT OF: VENOUS THROMBOSIS 2.0-3.0 PULMONARY EMBOLISM 2.0-3.0 PREVENTION OF SYSTEMIC EMBOLISM FROM: TISSUE HEART VALVES 2.0-3.0 ACUTE MYOCARDIAL INFARCTION 2.0-3.0 VALVULAR HEART DISEASE 2.0-3.0 ATRIAL FIBRILLATION 2.0-3.0 MECHANICAL VALVES(HIGH RISK) 2.5-3.5 RECURRENT MYOCARDIAL INFARCTION 2.5-3.5 39 Y/N query for Sepsis Lactate Rule: [...] VALVES(HIGH RISK) 2.5-3.5 RECURRENT MYOCARDIAL INFARCTION 2.5-3.5 42 Units are mL/min/1.73 m2 Chronic Kidney Disease Staging per NKF: Stage I & II GFR >=60 Normal to Mildly Decreased Stage III GFR 30-59 Moderately Decreased Stage IV GFR 15-29 Severely Decreased Stage V GFR <15 Very Little GFR Left ESRD GFR <15 on FLAME DEGREASER 43 DIAGNOSIS CRITERIA MMB ng/ml Relative Index (RI) NON-AMI < or = 5 N/A LEVINE ZONE > 5 < or = 4 AMI > 5 > 4 44 Troponin I Reference Interva l for [employer] LOCI: 99th Percentile= 0.00-0.045 ng/ml Risk Stratification: <= 0.10 ng/ml Decreased Risk for Adverse Clinical Events. 0.10-1.50 ng/ml Increased Risk for Adv erse Clinical Events. Evaluation of additional criterion and/or repeat testing in 2-6 hours is suggested to rule out myocardial damage. >= 1.50 ng/ml Indicative of Myocardial Injury. Procedures Date Code Description Status 03/28/2021 [id number] [place] W/I 7 Days Of DC, Comm W/I 2 Dys Completed 03/23/2021 [id number] Office/Outpatient Established Mo d MDM 30-39 Min Completed 03/23/2021 [id number] Diabetic Foot Exam Completed 01/25/2021 [id number] [place] W/I 7 Days Of DC, Comm W/I 2 Dys Completed 12/27/2020 [id number] Office/Outpatient Established Mo d MDM 30-39 Min Completed 12/19/2020 49844 Office/Outpatient Established Mo d MDM 30-39 Min Completed 12/02/2020 [id number] [place] W/I 7 Days Of DC, Comm W/I 2 Dys Completed Medical Devices Description No Information Available Encounters Type Date Location Provider Dx Diagnosis Office Visit 03/28/2021 11:45a Main Office Nadiya Bryan, EXTRACTION SUPERVISOR D64.9 Anemia, unspecified K29.61 Other gastritis with bleedin g Office Visit 03/23/2021 3:45p Main Office Nadiya Bryan, EXTRACTION SUPERVISOR E11.6 9 Type 2 diabetes mellitus with other specified complication C18.9 Malignant neoplasm of colon, unspecified Z93.2 Ileostomy status E78.2 Mixed hyperlipidemia I10 Essential (primary) hyperten yara I48.91 Unspecified atrial fibrillat ion D64.9 Anemia, unspecified Office Visit 01/25/2021 2:15p Main Office GalinaachNadiya, EXTRACTION SUPERVISOR D64.9 Anemia, unspecified K29.61 Other gastritis with bleedin g Office Visit 12/27/2020 3:45p Main Office Anitha Gamez M.D. 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 D64.9 Anemia, unspecified Office Visit 12/19/2020 2:15p Main Office PlegudeliaachNadiya, EXTRACTION SUPERVISOR E11.6 9 Type 2 diabetes mellitus with other specified complication E78.2 Mixed hyperlipidemia I10 Essential (primary) hyperten yara Z93.2 Ileostomy status C18.9 Malignant neoplasm of colon, unspecified I48.91 Unspecified atrial fibrillat ion Office Visit 12/02/2020 10:30a Main Office Nadiya Bryan, EXTRACTION SUPERVISOR D64.9 Anemia, unspecified E11.69 Type 2 diabetes mellitus wit h other specified complication E78.2 Mixed hyperlipidemia I10 Essential (primary) hyperten yara Z93.2 Ileostomy status C18.9 Malignant neoplasm of colon, unspecified I48.91 Unspecified atrial fibrillat ion Assessments Date Code Description Provider 03/28/2021 D64.9 Anemia, unspecified Pleskach, Mo lly, EXTRACTION SUPERVISOR 03/28/2021 K29.61 Other gastritis with bleeding Pl esNadiya alamo, EXTRACTION SUPERVISOR 03/23/2021 E11.69 Type 2 diabetes mellitus with ot her specified complication PlegudeliaachNadiya, EXTRACTION SUPERVISOR 03/23/2021 C18.9 Malignant neoplasm of colon, uns pecified PlegudeliaachStevey, EXTRACTION SUPERVISOR 03/23/2021 Z93.2 Ileostomy status Nadiya Bryan , EXTRACTION SUPERVISOR 03/23/2021 E78.2 Mixed hyperlipidemia Plegudeliaach M jarocho, EXTRACTION SUPERVISOR 03/23/2021 I10 Essential (primary) hypertension PleskachNadiya, EXTRACTION SUPERVISOR 03/23/2021 I48.91 Unspecified atrial fibrillation Nadiya Bryan, EXTRACTION SUPERVISOR 03/23/2021 D64.9 Anemia, unspecified Pleskach, Mo lly, EXTRACTION SUPERVISOR 01/25/2021 D64.9 Anemia, unspecified Pleskach, Mo lly, EXTRACTION SUPERVISOR 01/25/2021 K29.61 Other gastritis with bleeding Pl Nadiya hogan, EXTRACTION SUPERVISOR 12/27/2020 E11.69 Type 2 diabetes mellitus with ot her specified complication Anitha Gamez M.D. 12/27/2020 C18.9 Malignant neoplasm of colon, uns pecified Anitha Gamez M.D. 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 12/27/2020 D64.9 Anemia, unspecified Angela Gamez M.D. 12/19/2020 E11.69 Type 2 diabetes mellitus with ot her specified complication PleskachNadiya, EXTRACTION SUPERVISOR 12/19/2020 E78.2 Mixed hyperlipidemia Pleskach, Chayo jarocho, EXTRACTION SUPERVISOR 12/19/2020 I10 Essential (primary) hypertension Pleskach, Nadiya, EXTRACTION SUPERVISOR 12/19/2020 Z93.2 Ileostomy status Pleskach, Nadiya , EXTRACTION SUPERVISOR 12/19/2020 C18.9 Malignant neoplasm of colon, uns pecified Pleskach, Nadiya, EXTRACTION SUPERVISOR 12/19/2020 I48.91 Unspecified atrial fibrillation Pleskach, Nadiya, EXTRACTION SUPERVISOR 12/02/2020 D64.9 Anemia, unspecified Pleskach, Mo lly, EXTRACTION SUPERVISOR 12/02/2020 E11.69 Type 2 diabetes mellitus with ot her specified complication Pleskach, Nadiya, EXTRACTION SUPERVISOR 12/02/2020 E78.2 Mixed hyperlipidemia Pleskach, M jarocho, EXTRACTION SUPERVISOR 12/02/2020 I10 Essential (primary) hypertension Pleskach, Nadiya, EXTRACTION SUPERVISOR 12/02/2020 Z93.2 Ileostomy status Pleskach, Nadiya , EXTRACTION SUPERVISOR 12/02/2020 C18.9 Malignant neoplasm of colon, uns pecified Pleskach, Nadiya, EXTRACTION SUPERVISOR 12/02/2020 I48.91 Unspecified atrial fibrillation Pleskach, Nadiya, EXTRACTION SUPERVISOR Plan of Treatment Future Appointment(s):* 06/22/2021 3:30 pm - Nadiya Bryan EXTRACTION SUPERVISOR at Main Office 03/28/2021 - PleNadiya tracey, EXTRACTION SUPERVISOR* D64.9 Anemia, unspecified* Comments:* following with [...] to Reason for Referral Status Appt Date [facility] Ear, Nose [facility] Throat nose bleed. Sent [phone] [facility], [address] [phone]
--- OUTSIDE RECORDS SUMMARY | 2021-06-19 13:46 | CCD ---
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 Name Role Phone Bethany Cardenas MD Unavailable [...] Bethany Cardenas MD Unavailable Unavailable Pleskach, Nadiya TOPLINE BEADING MACHINE TENDER Unavailable Unavailable Pleskach, Nadiya TOPLINE BEADING MACHINE TENDER Unavailable Unavailable Pleskach, Nadiya TOPLINE BEADING MACHINE TENDER Unavailable Unavailable Pleskach, Nadiya TOPLINE BEADING MACHINE TENDER Unavailable Unavailable Pleskach, Nadiya TOPLINE BEADING MACHINE TENDER Unavailable Unavailable Pleskach, Nadiya TOPLINE BEADING MACHINE TENDER Unavailable Unavailable Pleskach, Nadiya TOPLINE BEADING MACHINE TENDER Unavailable Unavailable Pleskach, Nadiya TOPLINE BEADING MACHINE TENDER Unavailable Unavailable Pleskach, Nadiya TOPLINE BEADING MACHINE TENDER Unavailable Unavailable Pleskach, Nadiya TOPLINE BEADING MACHINE TENDER Unavailable Unavailable Pleskach, Nadiya TOPLINE BEADING MACHINE TENDER Unavailable Unavailable Pleskach, Nadiya TOPLINE BEADING MACHINE TENDER Unavailable Unavailable Pleskach, Nadiya TOPLINE BEADING MACHINE TENDER Unavailable Unavailable Pleskach, Nadiya TOPLINE BEADING MACHINE TENDER Unavailable Unavailable Pleskach, Nadiya TOPLINE BEADING MACHINE TENDER Unavailable Unavailable Pleskach, Nadiya TOPLINE BEADING MACHINE TENDER Unavailable Unavailable Pleskach, Nadiya TOPLINE BEADING MACHINE TENDER Unavailable Unavailable Pleskach, Nadiya TOPLINE BEADING MACHINE TENDER Unavailable Unavailable Pleskach, Nadiya TOPLINE BEADING MACHINE TENDER Unavailable Unavailable Pleskach, Nadiya TOPLINE BEADING MACHINE TENDER Unavailable Unavailable Pleskach, Nadiya TOPLINE BEADING MACHINE TENDER Unavailable Unavailable Pleskach, Nadiya TOPLINE BEADING MACHINE TENDER Unavailable Unavailable Pleskach, Nadiya TOPLINE BEADING MACHINE TENDER Unavailable Unavailable Pleskach, Nadiya TOPLINE BEADING MACHINE TENDER Unavailable Unavailable Pleskach, Nadiya TOPLINE BEADING MACHINE TENDER Unavailable Unavailable Pleskach, Nadiya TOPLINE BEADING MACHINE TENDER Unavailable Unavailable Pleskach, Nadiya TOPLINE BEADING MACHINE TENDER Unavailable Unavailable Pleskach, Nadiya TOPLINE BEADING MACHINE TENDER Unavailable Unavailable Pleskach, Nadiya TOPLINE BEADING MACHINE TENDER Unavailable Unavailable Pleskach, Nadiya TOPLINE BEADING MACHINE TENDER Unavailable Unavailable Pleskach, Nadiya TOPLINE BEADING MACHINE TENDER Unavailable Unavailable Pleskach, Nadiya TOPLINE BEADING MACHINE TENDER Unavailable Unavailable Pleskach, Nadiya TOPLINE BEADING MACHINE TENDER Unavailable Unavailable Pleskach, Nadiya TOPLINE BEADING MACHINE TENDER Unavailable Unavailable Pleskach, Nadiya TOPLINE BEADING MACHINE TENDER Unavailable Unavailable Pleskach, Nadiya TOPLINE BEADING MACHINE TENDER Unavailable Unavailable Pleskach, Nadiya TOPLINE BEADING MACHINE TENDER Unavailable Unavailable Pleskach, Nadiya TOPLINE BEADING MACHINE TENDER Unavailable Unavailable Pleskach, Nadiya TOPLINE BEADING MACHINE TENDER Unavailable Unavailable Pleskach, Nadiya TOPLINE BEADING MACHINE TENDER Unavailable Unavailable Pleskach, Nadiya TOPLINE BEADING MACHINE TENDER Unavailable Unavailable Pleskach, Nadiya TOPLINE BEADING MACHINE TENDER Unavailable Unavailable Pleskach, Nadiya TOPLINE BEADING MACHINE TENDER Unavailable Unavailable Pleskach, Nadiya TOPLINE BEADING MACHINE TENDER Unavailable Unavailable Franco, Sosa Welsh MD Unavailable Unavailable Franco, Sosa Welsh MD Unavailable Unavailable Franco, Sosa Welsh MD Unavailable Unavailable Franco, Sosa Welsh MD Unavailable Unavailable Franco, A Anitha CLAY Unavailable Unavailable Franco, A Anitha CLAY Unavailable Unavailable Franco, A Anitha CLAY Unavailable Unavailable Franco, A Anitha CLAY Unavailable Unavailable Franco, A Anitha CLAY Unavailable Unavailable Franco, A Anitha CLAY Unavailable Unavailable Franco, A Anitha CLAY Unavailable Unavailable Franco, A Anitha CLAY Unavailable Unavailable Franco, A Anitha CLAY Unavailable Unavailable Franco, A Anitha CLAY Unavailable Unavailable Franco, A Anitha CLAY Unavailable Unavailable Franco, A Anitha CLAY Unavailable Unavailable Franco, A Anitha CLAY Unavailable Unavailable Franco, A Anitha CLAY Unavailable Unavailable Franco, Sosa Welsh MD Unavailable Unavailable Franco, A Anitha CLAY Unavailable Unavailable Franco, A Anitha CLAY Unavailable Unavailable Franco, A Anitha CLAY Unavailable Unavailable Franco, A Anitha CLAY Unavailable Unavailable Franco, A Anitha CLAY Unavailable Unavailable Franco, A Anitha CLAY Unavailable Unavailable Franco, A Anitha MD Unavailable Unavailable Franco, A Anitha CLAY Unavailable Unavailable Franco, A Anitha CLAY Unavailable Unavailable Franco, A Anitha CLAY Unavailable Unavailable Franco, A Anitha CLAY Unavailable Unavailable Franco, A Anitha CLAY Unavailable Unavailable Franco, A Anitha CLAY Unavailable Unavailable Franco, A Anitha CLAY Unavailable Unavailable Franco, Sosa Welsh MD Unavailable Unavailable Franco, Sosa Welsh MD Unavailable Unavailable Franco, Sosa Welsh MD Unavailable Unavailable Franco, A Anitha CLAY Unavailable Unavailable Franco, A Anitha CLAY Unavailable Unavailable Franco, A Anitha CLAY Unavailable Unavailable Franco, A Anitha CLAY Unavailable Unavailable Franco, A Anitha CLAY Unavailable Unavailable Franco, A Anitha CLAY Unavailable Unavailable Franco, A Anitha MD Unavailable Unavailable Franco, A Anitha MD Unavailable Unavailable Franco, A Anitha MD Unavailable Unavailable Franco, A Anitha MD Unavailable Unavailable Franco, A Anitha CLAY Unavailable Unavailable Franco, A Anitha CLAY Unavailable Unavailable Franco, A Anitha CLAY Unavailable [...] Franco, A Anitha CLAY Unavailable Unavailable Franco, A Anitha CLAY Unavailable Unavailable Franco, A Anitha CLAY Unavailable Unavailable Franco, A Anitha CLAY Unavailable [...] Unavailable Franco, Sosa Welsh MD Unavailable Unavailable Torres, L Samina PA Unavailable [...] Unavailable Torres, L Samina PA Unavailable Unavailable [place], V GEORGINA PA-C Unavailable Unavailable Dimas, V GEORGINA PA-C Unavailable Unavailable [place], V GEORGINA PA-C Unavailable Unavailable Dimas, V GEORGINA PA-C Unavailable Unavailable Dimas, V GEORGINA PA-C Unavailable Unavailable [place], V GEORGINA PA-C Unavailable Unavailable [place], V GEORGINA PA-C Unavailable Unavailable Dimas, V GEORGINA PA-C Unavailable Unavailable [place], V GEORGINA PA-C Unavailable Unavailable Dimas, V GEORGINA PA-C Unavailable Unavailable [place], V GEORGINA PA-C Unavailable Unavailable [place], V GEORGINA PA-C Unavailable Unavailable Dimas, V GEORGINA PA-C Unavailable Unavailable [place], V GEORGINA PA-C Unavailable Unavailable Srinivas PERALTA [...] Unavailable Srinivas PERALTA MD Unavailable Unavailable CHANDRALA, Srinivas GARCIA MD Unavailable Unavailable CHANDRALA, Srinivas GARCIA MD Unavailable Unavailable CHANDRALA, Srinivas GARCIA MD Unavailable Unavailable CHANDRALA, Srinivas GARCIA MD Unavailable Unavailable CHANDRALA, Srinivas GARCIA MD Unavailable Unavailable CHANDRALA, Srinivas GARCIA MD Unavailable Unavailable CHANDRALA, Srinivas GARCIA MD Unavailable Unavailable CHANDRALA, Srinivas GARCIA MD Unavailable Unavailable CHANDRALA, Srinivas GARCIA MD Unavailable Unavailable CHANDRALA, Srinivas GARCIA MD Unavailable Unavailable CHANDRALA, Srinivas GARCIA MD Unavailable Unavailable CHANDRALA, Srinivas GARCIA MD Unavailable Unavailable CHANDRALA, Srinivas GARCIA MD Unavailable Unavailable Juan Pablo, Maggy Salazar PH.D., M.D. Unavailable Unavailable Juan Pablo, Maggy Salazar PH.D., M.D. Unavailable Unavailable Juan Pablo, Maggy Salazar PH.D., M.D. Unavailable Unavailable Juan Pablo, Maggy Salazar PH.D., M.D. Unavailable Unavailable Juan Pablo, Magyg Salazar PH.D., M.D. Unavailable Unavailable Juan Pablo, Maggy Salazar PH.D., M.D. Unavailable Unavailable Juan Pablo, Maggy Salazar PH.D., M.D. Unavailable Unavailable Juan Pablo, Maggy Salazar PH.D., M.D. Unavailable Unavailable Juan Pablo, Maggy Salazar PH.D., M.D. Unavailable Unavailable Juan Pablo, Maggy Salazar PH.D., M.D. Unavailable Unavailable Juan Pablo, Maggy Salazar PH.D., M.D. Unavailable Unavailable Juan Pablo, Maggy Salazar PH.D., M.D. Unavailable Unavailable Juan Pablo, Maggy Salazar PH.D., M.D. Unavailable Unavailable Juan Pablo, Maggy Salazar PH.D., M.D. Unavailable Unavailable Juan Pablo, Maggy Salazar PH.D., M.D. Unavailable Unavailable Juan Pablo, Maggy Salazar PH.D., M.D. Unavailable Unavailable Juan Pablo, Maggy Salazar PH.D., M.D. Unavailable Unavailable Juan Pablo, Maggy Salazar PH.D., M.D. Unavailable Unavailable Juan Pablo, Maggy Salazar PH.D., M.D. Unavailable Unavailable Juan Pablo, Maggy Salazar PH.D., M.D. Unavailable Unavailable Juan Pablo, Maggy Salazar PH.D., M.D. Unavailable Unavailable Juan Pablo, Maggy Salazar PH.D., M.D. Unavailable Unavailable Juan Pablo, Maggy Salazar PH.D., M.D. Unavailable Unavailable Juan Pablo, Maggy Salazar PH.D., M.D. Unavailable Unavailable Juan Pablo, C Martin PH.D., M.D. Unavailable Unavailable Juan Pablo, C Martin PH.D., M.D. Unavailable Unavailable Juan Pablo, C Martin PH.D., M.D. Unavailable Unavailable Juan Pablo, C Martin PH.D., M.D. Unavailable Unavailable Juan Pablo, C Martin PH.D., M.D. Unavailable Unavailable Juan Pablo, C Martin PH.D., M.D. Unavailable Unavailable Juan Pablo, C Martin PH.D., M.D. Unavailable Unavailable Juan Pablo, C Martin PH.D., M.D. Unavailable Unavailable Juan Pablo, C Martin PH.D., M.D. Unavailable Unavailable Juan Pablo, C Martin PH.D., M.D. Unavailable Unavailable Juan Pablo, C Martin PH.D., M.D. Unavailable Unavailable Juan Pablo, C Martin PH.D., M.D. Unavailable Unavailable Juan Pablo, C Martin PH.D., M.D. Unavailable Unavailable Juan Pablo, C Martin PH.D., M.D. Unavailable Unavailable Juan Pablo, C Martin PH.D., M.D. Unavailable Unavailable Juan Pablo, C Martin PH.D., M.D. Unavailable Unavailable Juan Pablo, C Martin PH.D., M.D. Unavailable Unavailable Juan Pablo, C Martin PH.D., M.D. Unavailable Unavailable Juan Pablo, C Martin PH.D., M.D. Unavailable Unavailable Juan Pablo, C Martin PH.D., M.D. Unavailable Unavailable Juan Pablo, C Martin PH.D., M.D. Unavailable Unavailable Juan Pablo, C Martin PH.D., M.D. Unavailable Unavailable Juan Pablo, C Martin PH.D., M.D. Unavailable Unavailable Juan Pablo, C Martin PH.D., M.D. Unavailable Unavailable Juan Pablo, C Martin PH.D., M.D. Unavailable Unavailable Juan Pablo, C Martin PH.D., M.D. Unavailable Unavailable Juan Pablo, C Martin PH.D., M.D. Unavailable Unavailable Juan Pablo, C Martin PH.D., M.D. Unavailable Unavailable Juan Pablo, C Martin PH.D., M.D. Unavailable Unavailable Juan Pablo, C Martin PH.D., M.D. Unavailable Unavailable Juan Pablo, C Martin PH.D., M.D. Unavailable Unavailable Juan Pablo, C Martin PH.D., M.D. Unavailable Unavailable Juan Pablo, C Martin PH.D., M.D. Unavailable Unavailable Juan Pablo, C Martin PH.D., M.D. Unavailable Unavailable Juan Pablo, Maggy Salazar PH.D., M.D. Unavailable Unavailable Juan Pablo, Maggy Salazar PH.D., M.D. Unavailable Unavailable Juan Pablo, Maggy Salazar PH.D., M.D. Unavailable Unavailable Juan Pablo, Maggy Salazar PH.D., M.D. Unavailable Unavailable Juan Pablo, Maggy Salazar PH.D., M.D. Unavailable Unavailable Juan Pablo, Maggy Salazar PH.D., M.D. Unavailable Unavailable Juan Pablo, Maggy Salazar PH.D., M.D. Unavailable Unavailable Juan Pablo, Maggy Salazar PH.D., M.D. Unavailable Unavailable Juan Pablo, Maggy Salazar PH.D., M.D. Unavailable Unavailable Juan Pablo, Maggy Salazar PH.D., M.D. Unavailable Unavailable Juan Pablo, Maggy Salazar PH.D., M.D. Unavailable Unavailable Juan Pablo, Maggy Salazar PH.D., M.D. Unavailable Unavailable Juan Pablo, Maggy Salazar PH.D., M.D. Unavailable Unavailable Juan Pablo, Maggy Salazar PH.D., M.D. Unavailable Unavailable Juan Pablo, Maggy Salazar PH.D., M.D. Unavailable Unavailable Juan Pablo, Maggy Salazar PH.D., M.D. Unavailable Unavailable Juan Pablo, Maggy Salazar PH.D., M.D. Unavailable Unavailable Juan Pablo, Maggy Salazar PH.D., M.D. Unavailable Unavailable Juan Pablo, Maggy Salazar PH.D., M.D. Unavailable Unavailable Juan Pablo, Maggy Salazar PH.D., M.D. Unavailable Unavailable Juan Pablo, Maggy Salazar PH.D., M.D. Unavailable Unavailable Juan Pablo, Maggy Salazar PH.D., M.D. Unavailable Unavailable Juan Pablo, Maggy Salazar PH.D., M.D. Unavailable Unavailable Juan Pablo, Maggy Salazar PH.D., M.D. Unavailable Unavailable Slezka, Vojtech MD Unavailable Unavailable Slezka, Vojtech MD Unavailable Unavailable Slezka, Vojtech MD Unavailable Unavailable Slezka, Vojtech MD Unavailable Unavailable Slezka, Vojtech MD Unavailable Unavailable Slezka, Vojtech MD Unavailable Unavailable Slezka, Vojtech MD Unavailable Unavailable Slezka, Vojtech MD Unavailable Unavailable Slezka, Vojtech MD Unavailable Unavailable Slezka, Vojtech MD Unavailable Unavailable Slezka, Vojtech MD Unavailable Unavailable Slezka, Vojtech MD Unavailable Unavailable Slezka, Vojtech MD Unavailable Unavailable Slezka, Vojtech MD Unavailable Unavailable Niels Decker MD Unavailable [...] Unavailable Niels Decker MD Unavailable Unavailable Niels Deckre MD Unavailable Unavailable Niels Decker MD Unavailable [...] Unavailable Unavailable Niels Decker MD Unavailable Unavailable Re-disclosure Warning The records [...] is protected by Article 27-F of the [facility] Public Health law. If you continue you may have access to information: Regarding HIV / AIDS; Provided by facilities licensed or operated by the [facility] Office of Mental Health; or Provided by the [facility] Office for People With Developmental Disabilities. If such information is present, then the following [facility] mandated warning applies: This information has [...] Description Data Source(s) Unknown Unknown Problem [facility] ([facility], ) Unknown Male Problem [facility] ([facility] Unknown Male Problem [facility] ([facility] Unknown Male Problem [facility] ([facility] Unknown Male Problem [facility] ([facility] Unknown Male Problem [facility] ([facility] Encounters Encounter Providers Location Date Indications Data Source(s ) Outpatient Attender: Martin Almeida PH.D., M.Maria Del Rosario. [place]/A ngel/Reindl 06/06/2021 12:45:00 PM EST [facility] ([facility]) Outpatient Attender: GEORGINA FRANKSED-SJP.ED 10/2020 02:11:07 PM EDT - 04/17/2021 03:39:45 PM EDT [facility] Outpatient Attender: Nadiya LORENZP Main Office 03/28/2021 1 1:45:00 AM EDT [facility] ([facility] Outpatient Attender: Nadiya PALACIOS Main Office 03/23/2021 0 3:45:00 PM EDT [facility] ([facility] Outpatient Attender: Niels DOWNING.ED-SJP.ED 02/13 12:00:00 AM EDT - 03/06/2021 10:49:24 AM EDT [facility] Outpatient Attender: RADHA Rae/Cristi/Ang el/Reindl 03/01/2021 01:00:00 PM EDT [facility] ([facility]) Outpatient Attender: GEORGINA FRANKSED-SJP.ED 12:00:00 AM EDT [facility] Outpatient Attender: GEORGINA FRANKSED-SJP.ED 04/2021 02:46:06 PM EDT - 02/21/2021 03:43:47 PM EDT [facility] Outpatient Attender: Dmitry Cardenas MDAdmitter: Dmitry Cardenas MD [email or web address] 02/16/2021 04:14:45 PM EDT [facility] Outpatient Attender: Nadiya LORENZP Main Office 01/25/2021 0 2:15:00 PM EDT [facility] ([facility] Outpatient Attender: GEORGINA FRANKSED-SJP.ED 12:00:00 AM EDT - 01/24/2021 01:58:05 PM EDT [facility] Outpatient Attender: RADHA Rae/Cristi/Ang el/Reindl 01/04/2021 02:00:00 PM EDT [facility] ([facility] Outpatient Attender: Anitha Gamez MD Main Office 12/27/2020 03:45:0 0 PM EDT [facility] ([facility] Outpatient Attender: GEORGINA FRANKSED-SJP.ED 02/2021 02:46:03 PM EDT - 12/20/2020 04:12:16 PM EDT [facility] Outpatient Attender: Nadiya Bryan [facility] Main Office 12/19/2020 0 2:15:00 PM EDT [facility] ([facility] Outpatient Attender: Nadiya Bryan [facility] Main Office 12/02/2020 1 0:30:00 AM EDT [facility] ([facility] Outpatient Attender: GEORGINA FRANKSED-SJP.ED 12:00:00 AM EDT - 11/29/2020 03:22:02 PM EDT [facility] Outpatient Attender: GEORGINA FRANKSED-SJP.ED 06/2021 12:00:00 AM EDT - 11/23/2020 01:51:35 PM EDT [facility] Outpatient Attender: RADHA Rae/Cristi/Ang el/Reindl 09/19/2020 10:30:00 AM EST [facility] ([facility]) Outpatient Attender: Nadiya Bryan [facility] Main Office 09/09/2020 1 0:45:00 AM EST [facility] ([facility] Outpatient Attender: Samina DOWNING.ED-SJP.ED 04/2020 12:00:00 AM EST - 06/23/2020 03:48:06 PM EST [facility] Outpatient Attender: Nadiya LORENZP Main Office 06/16/2020 0 1:00:00 PM EST [facility] ([facility] Medications Medication Brand Name Start Date Product Form Dose Route Admi nistrative Instructions Pharmacy Instructions Status Indications Reaction Description Data Source(s) 24 HR Diltiazem Hydrochloride 240 MG Extended Release Oral Capsule DILTIAZEM HCL 05/30/2021 12:00:00 AM EST capsule,extended release 24hr 90 TAKE ONE CAPSULE BY MOUTH EVERY DAY TAKE ONE CAPSULE BY MOUTH EVERY DAY SOLD: 05/31/2021 [facility] 20 mEq 05/18/2021 12:00:00 AM EDT tablet,ER particles/cry stals 90 TAKE 1 TABLET (20 MEQ) TOTAL) BY MOUTH NEEDED (WHEN TAKING LASIX) TAKE 1 TABLET (20 MEQ) TOTAL) BY MOUTH NEEDED (WHEN TAKING LASIX) SOLD: 05/19/2021 [facility] pantoprazole 40 MG Delayed Release Oral Tablet [...] ( THREE TIMES A DAY ) SOLD: 05/21/2021 [facility] 100 mg/mL 04/01/2021 12:00:00 AM EDT suspension 840 TAKE 10ML BY MOUTH 1/2 HOUR BEFORE MEALS ( THREE TIMES A DAY ) TAKE 10ML BY MOUTH 1/2 HOUR BEFORE MEALS ( THREE TIMES A DAY ) SOLD: 04/01/2021 [facility] 100 mg/mL 04/01/2021 12:00:00 AM EDT suspension 840 TAKE 10ML BY MOUTH 1/2 HOUR BEFORE MEALS ( THREE TIMES A DAY ) TAKE 10ML BY MOUTH 1/2 HOUR BEFORE MEALS ( THREE TIMES A DAY ) SOLD: 04/23/2021 [facility] Sucralfate 100 MG/ML Oral Suspension sucralfate (CARAF ATE) 1 GM/10ML suspension sucralfate (CARAFATE) 1 GM/10ML suspension 04/01/2021 12:00:00 AM EDT 1 g Oral active Take 1 g by mouth 4 (four) times a day [facility] pantoprazole 40 MG Delayed Release Oral Tablet Pantoprazole Sodium 02/21/2021 12:00:00 AM EDT active M [facility] ([facility], ) pantoprazole 40 MG Delayed Release Oral Tablet PANTOPRAZOLE SODIUM 02/21/2021 12:00:00 AM EDT tablet,delayed release (DR/EC) 60 T TOI ONE TABLET BY MOUTH IN THE MORNING 1/2 HOUR BEFORE BREAKFAST AND TAKE ONE TABLET BY MOUTH BEFORE BEDTIME TAKE ONE TABLET BY MOUTH IN THE MORNING 1/2 HOUR BEFORE BREAKFAST AND TAKE ONE TABLET BY MOUTH BEFORE BEDTIME SOLD: 03/21/2021 [facility] pantoprazole 40 MG Delayed Release Oral Tablet [...] TABLET BY MOUTH TWO TIMES A DAY [facility] 100 mg/mL 01/21/2021 12:00:00 AM EDT suspension [...] MEALS AND AT BEDTIME SOLD: 03/07/2021 [facility] pantoprazole 40 MG Delayed Release Oral Tablet [...] TWO TIMES A DAY SOLD: 01/21/2021 [facility] Omeprazole 20 MG Delayed Release Oral Capsule Omeprazole 01/04/2021 12:00:00 AM EDT completed [facility] ([facility], ) Sucralfate 100 MG/ML Oral Suspension Sucralfate 01/04/2021 12:00:00 A M EDT ORAL active [facility] ([facility], ) 40 mg 12/28/2020 12:00:00 AM [...] (20 mg total) by mouth christine ly [facility] Bilateral leg edema potassium chloride SA (K-DUR,KLOR-CON) 20 MEQ tablet 81334-8 99-01 12/20/2020 12:00:00 AM EDT 20 meq Oral active Take 1 tablet (20 mEq total) by mouth as needed (when taking lasix) [facility] 24 HR Diltiazem Hydrochloride 240 MG Ext ended Release Oral Capsule diltiazem (CARDIZEM CD) 240 MG 24 hr capsule diltiazem (CARDIZEM CD) 240 MG 24 hr capsule 12/20/2020 12:00:00 AM EDT 240 mg Oral active Take 1 capsule (240 mg total) by mouth daily [facility] 0.5 mg 12/15/2020 12:00:00 AM EDT tablet [...] MOUTH EVERY DAY SOLD: 02/28/2021 [facility] 50 mg 12/06/2020 12:00:00 AM EDT tablet extended release 24 hr 90 TAKE ONE TABLET BY MOUTH EVERY DAY TAKE ONE TABLET BY MOUTH EVERY DAY SOLD: 05/31/2021 [facility] 24 HR metoprolol succinate 50 MG Extende d Release Oral Tablet metoprolol succinate (TOPROL-XL) 50 MG 24 hr tablet metoprolol succinate (TOPROL-XL) 50 MG 24 hr tablet 12/06/2020 12:00:00 AM EDT 50 mg Oral activ e Take 1 tablet (50 mg total) by mouth daily [facility] Sucralfate 1000 MG Oral Tablet sucralfate (CARAFATE) 1 g tablet sucralfate (CARAFATE) 1 g tablet 12/05/2020 12:00:00 AM EDT 1 g Oral aborted Take 1 g by mouth 2 (two) times a day [facility] 1 gram 12/05/2020 12:00:00 AM EDT tablet [...] DAY NEEDED WHEN TAKING FUROSEMIDE SOLD: 11/27/2020 [facility] potassium chloride SA (K-DUR,KLOR-CON) 20 MEQ tablet [id number] 99-01 11/23/2020 12:00:00 AM EDT 20 meq Oral aborted Take 1 tablet (20 mEq total) by mouth as needed (when taking lasix) [facility] Furosemide 20 MG Oral Tablet furosemide (LASIX) 20 MG tablet furosemide (LASIX) 20 MG tablet 11/23/2020 12:00:00 AM EDT 20 mg Oral aborted Bilateral leg edema Take 1 tablet (20 mg total) by mouth christine ly [facility] Bilateral leg edema Omeprazole 40 MG Delayed Release Oral Capsule Omeprazole 10/24/2020 12:00:00 AM EDT completed [facility] ([facility], ) 40 mg 10/24/2020 12:00:00 AM EDT capsule,delayed release (DR/EC) 30 TAKE ONE CAPSULE BY MOUTH EVERY MORNING 30 MINUTES BEFORE BREAKFAST *TAPER AFTER 6 WEEKS TAKE ONE CAPSULE BY MOUTH EVERY MORNING 30 MINUTES BEFORE BREAKFAST *TAPER AFTER 6 WEEKS SOLD: 10/26/2020 [facility] 17.5-3.13-1.6 gram 09/30/2020 12:00:00 AM EDT [place] 354 USE DIRECTED FOR BOWL PREP USE DIRECTED FOR BOWL PREP SOLD: 10/07/2020 [facility] Clenpiq Clenpiq 09/30/2020 12:00:00 AM EDT complet ed [facility] ([facility], ) Suprep Bowel Prep Kit Suprep Bowel Prep Kit 09/30/2020 12:00:00 AM EDT completed [facility] ([facility], ) Bisacodyl 5 MG Delayed Release Oral Tablet [Dulcolax] Dulcol ax 09/30/2020 12:00:00 AM EDT completed [facility] ([facility], ) POLYETHYLENE GLYCOL 3350 105 MG/ML / Pot assium Chloride 0.49308 MEQ/ML / Sodium Bicarbonate 0.017 MEQ/ML / Sodium Chloride 0.0479 MEQ/ML Oral Solution [GaviLyte-N] Gavilyte-N With Flavor Pack 09/30/2020 12:00:00 AM EDT completed [facility] ([facility]) 5 mg 09/30/2020 12:00:00 AM EDT tablet,delayed release (DR/EC) 4 TAKE FOUR TABLETS BY MOUTH FOR BOWL PREP TAKE FOUR TABLETS BY MOUTH FOR BOWL PREP SOLD: 10/04/2020 [facility] Docusate Sodium 100 MG Oral Capsule [Colace] [...] EST abo rted TAKE 1 TABLET DAILY [facility] 24 HR Diltiazem Hydrochloride 240 MG Ext ended Release Oral Capsule diltiazem (CARDIZEM CD) 240 MG 24 hr capsule diltiazem (CARDIZEM CD) 240 MG 24 hr capsule 07/05/2020 12:00:00 AM EST 240 mg Oral aborted Take 1 capsule (240 mg total) by mouth daily [facility] apixaban 2.5 MG Oral Tablet apixaban (ELIQUIS) 2.5 MG TABS tablet apixaban (ELIQUIS) 2.5 MG TABS tablet 07/05/2020 12:00:00 AM EST 2.5 mg Oral aborted Take 1 tablet (2.5 mg total) by mouth 2 (two) times a day [facility] Furosemide 20 MG Oral Tablet furosemide (LASIX) 20 MG tablet furosemide (LASIX) 20 MG tablet 07/01/2020 12:00:00 AM EST 20 mg Oral aborted Bilateral leg edema Take 1 tablet (20 mg total) by mouth bernardino ry other day [facility] Bilateral leg edema glimepiride 1 MG Oral Tablet GLIMEPIRIDE 06/26/2020 12:00:00 AM EST ta blet 45 TAKE ONE-HALF TABLET BY MOUTH EVERY MORNING FOR DIABETES TAKE ONE-HALF TABLET BY MOUTH EVERY MORNING FOR DIABETES SOLD: 06/27/2020 [facility] Cocoa Remover Wipes 06/16/2020 12:00:00 AM EST active [facility] ([facility] [employer] Lub[employer]ating Deodorant 06/16/2020 12:00:00 AM EST active [facility] ([facility] Lancets (ONETOUCH DELICA PLUS [id number]) [facility] [id number] 06/05/2020 12:00:00 AM EST aborted [facility] [employer] Ceraing 05/05/2020 12:00:00 AM EDT active [facility] ([facility] ONETOUCH ULTRA test strip [id number] 04/30/2020 12:00:00 AM EDT aborted [facility] Furosemide 20 MG Oral Tablet furosemide (LASIX) 20 MG tablet furosemide (LASIX) 20 MG tablet 03/24/2020 12:00:00 AM EDT 20 mg Oral activ e Take 1 tablet (20 mg total) by mouth daily [facility] potassium chloride SA (K-DUR,KLOR-CON) 20 MEQ tablet [id number] 03/24/2020 12:00:00 AM EDT 20 meq Oral active Take 1 tablet (20 mEq total) by mouth daily [facility] 24 HR Diltiazem Hydrochloride 240 MG Ext ended Release Oral Capsule diltiazem (CARDIZEM CD) 240 MG 24 hr capsule diltiazem (CARDIZEM CD) 240 MG 24 hr capsule 03/07/2020 12:00:00 AM EDT 240 mg Oral active Take 1 capsule (240 mg total) by mouth daily [facility] 24 HR metoprolol succinate 50 MG Extende d Release Oral Tablet metoprolol succinate (TOPROL-XL) 50 MG 24 hr tablet metoprolol succinate (TOPROL-XL) 50 MG 24 hr tablet 03/07/2020 12:00:00 AM EDT 50 mg Oral activ e Take 1 tablet (50 mg total) by mouth daily [facility] Digoxin 0.125 MG Oral Tablet digoxin (LANOXIN) 125 MCG tablet digoxin (LANOXIN) 125 MCG tablet 02/23/2020 12:00:00 AM EDT 125 ug Oral act pamela Take 1 tablet (125 mcg total) by mouth daily [facility] apixaban 2.5 MG Oral Tablet apixaban (ELIQUIS) 2.5 MG TABS tablet apixaban (ELIQUIS) 2.5 MG TABS tablet 02/23/2020 12:00:00 AM EDT 2.5 mg Oral active Take 1 tablet (2.5 mg total) by mouth 2 (two) times a day [facility] Metformin hydrochloride 500 MG Oral Tablet metFORMIN ( GLUCOPHAGE) 500 MG tablet metFORMIN (GLUCOPHAGE) 500 MG tablet 500 mg Oral a borted Take 500 mg by mouth once daily [facility] glimepiride 1 MG Oral Tablet glimepiride (AMARYL) 1 MG tablet glimepiride (AMARYL) 1 MG tablet 0.5 mg Oral aborted Take 0.5 mg by mouth every morning before breakfast [facility] Ketotifen 0.25 MG/ML Ophthalmic Solution ketotifen (ZADITOR) 0.025 % ophthalmic solution ketotifen (ZADITOR) 0.025 % ophthalmic solution 1 [drp] aborted 1 drop 2 (two) times a day [facility] pantoprazole 40 MG Delayed Release Oral Tablet pantoprazole (PROTONIX) 40 MG tablet pantoprazole (PROTONIX) 40 MG tablet 40 mg Oral aborted Take 40 mg by mouth daily [facility] potassium chloride SA (K-DUR,KLOR-CON) 20 MEQ tablet [id number] 20 meq Oral aborted Take 20 mEq by mouth as needed (when taking lasix) [facility] Sucralfate 100 MG/ML Oral Suspension sucralfate (CARAF ATE) 1 GM/10ML suspension sucralfate (CARAFATE) 1 GM/10ML suspension 1 g Oral aborted Take 1 g by mouth 4 (four) times a day [facility] Insurance Providers Payer name Policy type / Coverage type Policy ID Covered alliance party ID Covered alliance party's relationship to payne Policy Payne Plan Information MEDICARE [id number] xxxxxxxxxxx [id number] MEDICARE [id number] Merary [id number] UMR [id number] Merary [id number] UMR [id number] xxxxxxxxx [id number] INSURANCE COVID-19 COVID Merary C OVID INSURANCE COVID-19 COVID Merary C OVID UMR [facility] [id number] SP [id number] UMR O [id number] S [id number] [place] Medicare Primary [id number] Self [id number] r Medigap Part B [id number] Self [id number] [place] Primary [id number] Self [id number] UMR O UNAVAILABLE [id number] S UNAVAILA BLE MEDICARE C [id number] S [id number] D Umr Medigap Part B [id number] 99.0 Self [id number] Medicare [place] Primary [id number] Self [id number] ANSI-Medicare Part B [id number] ANSI-Not a Secondary Insurance [id number] [employer] Medigap Part B [id number] Self [id number] Medicare [place] Medicare Primary [id number] Self [id number] [employer] Medigap Part B [id number] Self [id number] [place] Primary [id number] Self [id number] [employer] Medigap Part B [id number] Self [id number] Medicare [place] Medicare Primary [id number] Self [id number] [employer] Medigap Part B [id number] 99.0 Self [id number] Medicare [place] Primary [id number] Self [id number] [employer] Medigap Part B [id number] Self Medicare [place] Medicare Primary [id number] Self [employer] PPO O [id number] S [id number] [facility] [id number] SP [id number] [place] Medigap Part B [id number] Self MEDICARE [id number] SP [id number] V74 MEDICARE [id number] SP [id number] [id number] [facility] [id number] SP [id number] UM O [id number] S [id number] MEDICARE C [id number] S [id number] Problems, Conditions, and Diagnoses Code Display Name Description Problem Type Effective Dates Data Source(s) I48.19 Other persistent atrial fibrillation Oth er persistent atrial fibrillation Diagnosis 04/17/2021 02:11:07 PM EDT [facility] K92.2 Gastrointestinal hemorrhage, unspecified Gastrointestinal hemorrhage, unspecified Diagnosis 03/06/2021 09:50:53 AM EDT [facility] I50.33 Acute on chronic diastolic (congestive) heart failure Acute on chronic diastolic (congestive) Diagnosis 03/06/2021 09:50:53 AM EDT [facility] 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00 Dyspnea, unspecified Dyspnea, unspecified Diagnosis 11/23/2020 12:44:59 PM EDT [facility] I48.0 Paroxysmal atrial fibrillation Paroxysmal atrial fibri llation Diagnosis 11/23/2020 12:44:59 PM EDT [facility] I48.91 Atrial fibrillation Atrial fibrillation Problem 0 [...] Acute on chronic diastolic congestive heart failure [id number] 12/04/2020 12:00:00 AM ED T [facility] K92.2 Gastrointestinal bleed Gastrointestinal bleed [id number] 12/04/2020 12:00:00 AM EDT [facility] R06.00 SAUCEDO (dyspnea on exertion) SAUCEDO (dyspnea on exertion) [id number] 11/23/2020 12:00:00 AM EDT [facility] R09.89 Labile blood pressure Labile blood pressure [id number] 06/23/2020 12:00:00 AM EST [facility] E11.9 Type 2 diabetes mellitus wit hout complication, without long-term current use of insulin Type 2 diabetes mellitus without complic ation, without long-term current use of insulin [id number] 06/23/2020 12:00:00 AM EST [facility] Surgeries/Procedures Procedure Description Date Indications Data Source(s) OFFICE OUTPATIENT VISIT 15 MINUTES 06/06/2021 12:00:00 AM [facility] BRISENO ([facility], ) OFFICE OUTPATIENT NEW 30 MINUTES 06/06/2021 12:00:00 A M [place] BRISENO ([facility], ) ECG ROUTINE ECG W/LEAST 12 LDS W/I&R <td>POCT AMB EKG</td><td>Routine</td><td>04/17/2021 3:48 PM EDT</td><td> Persistent atrial fibrillation</td><td> </td> 04/17/2021 03:48:00 PM EDT Persistent atrial fibrillation [facility] Persistent atrial fibrillation Endoscopy Upper GI Control Hemorrhage 04/14/2021 12:00 :00 AM EDT FIN[facility] ([facility], ) Endoscopy Upper GI W/ Ablation Of Tumors/Polyps/Lesions 04/14/2021 12:00:00 AM EDT [facility] ([facility], ) [place] W/I 7 Days Of DC, Comm W/I 2 Dys 03/28/2021 12:00:00 AM EDT [facility] ([facility] Diabetic Foot Exam 03/23/2021 12:00:00 AM EDDavid BRISENO ([facility] Dr. Black OFFICE OUTPATIENT VISIT 25 MINUTES 03/23/2021 12:00:00 AM EDT [facility] ([facility] OFFICE OUTPATIENT VISIT 15 MINUTES 03/01/2021 12:00:00 AM EDT [facility] ([facility], ) ECG ROUTINE ECG W/LEAST 12 LDS W/I&R <td>POCT AMB EKG</td><td>Routine</td><td>02/28/2021 4:41 PM EDT</td><td> Persistent atrial fibrillation</td><td> </td> 02/28/2021 04:41:00 PM EDT Persistent atrial fibrillation [facility] Persistent atrial fibrillation BLOOD COUNT COMPLETE AUTO&AUTO DIFRNTL WBC COUNT <td>C BC AND DIFFERENTIAL</td><td>Routine</td><td>02/27/2021</td><td></td><td> </td> 02/27/2021 12:00:00 AM EDT [facility] IRON <td>IRON</td><td>Routine</td ><td>02/27/2021</td><td></td><td> </td> 02/27/2021 12:00:00 AM EDT [facility] BASIC METABOLIC PANEL CALCIUM TOTAL <td>BASIC METABOLI C PANEL</td><td>Routine</td><td>02/27/2021</td><td></td><td> </td> 02/27/2021 12:00:00 AM EDT [facility] [place] W/I 7 Days Of DC, Comm W/I 2 Dys 01/25/2021 12:00:00 AM EDT [facility] ([facility] BLOOD COUNT COMPLETE AUTO&AUTO DIFRNTL WBC COUNT <td>C BC AND DIFFERENTIAL</td><td>Routine</td><td>01/21/2021</td><td></td><td> </td> 01/21/2021 12:00:00 AM EDT [facility] HEPATIC FUNCTION PANEL <td>HEPATIC FUNCTION PANEL</td><td>Routine</td><td>01/21/2021</td><td></td><td> </td> 01/21/2021 12:00:00 AM EDT [facility] BASIC METABOLIC PANEL CALCIUM TOTAL <td>BASIC METABOLI C PANEL</td><td>Routine</td><td>01/21/2021</td><td></td><td> </td> 01/21/2021 12:00:00 AM EDT [facility] Endoscopy Upper GI Control Hemorrhage 01/20/2021 12:00 :00 AM EDT [facility] ([facility], ) Endoscopy Upper GI W/ Ablation Of Tumors/Polyps/Lesions 01/20/2021 12:00:00 AM EDT [facility] ([facility], ) OFFICE OUTPATIENT VISIT 25 MINUTES 01/04/2021 12:00:00 AM EDT MEDSYDNEE ([facility], ) THYROID STIMULATING HORMONE TSH <td>TSH</td><td>Routine</td><td>01/02/2021</td><td></td><td> </td> 01/02/2021 12:00:00 AM EDT [facility] IRON <td>IRON</td><td>Routine</td ><td>01/02/2021</td><td></td><td> </td> 01/02/2021 12:00:00 AM EDT [facility] BASIC METABOLIC PANEL CALCIUM TOTAL <td>BASIC METABOLI C PANEL</td><td>Routine</td><td>01/02/2021</td><td></td><td> </td> 01/02/2021 12:00:00 AM EDT [facility] OFFICE OUTPATIENT VISIT 25 MINUTES 12/27/2020 12:00:00 AM EDT [facility] ([facility] POCT AMB EKG <td>POCT AMB EKG</td><td>Rou tracy</td><td>12/20/2020 4:33 PM EDT</td><td> Persistent atrial fibrillation</td><td> </td> 12/20/2020 04:33:00 PM EDT Persistent atrial fibrillation [facility] Persistent atrial fibrillation OFFICE OUTPATIENT VISIT 25 MINUTES 12/19/2020 12:00:00 AM EDT [facility] ([facility] BLOOD COUNT COMPLETE AUTO&AUTO DIFRNTL WBC COUNT <td>C BC AND DIFFERENTIAL</td><td>Routine</td><td>12/19/2020</td><td></td><td> </td> 12/19/2020 12:00:00 AM EDT [facility] BASIC METABOLIC PANEL CALCIUM TOTAL <td>BASIC METABOLI C PANEL</td><td>Routine</td><td>12/19/2020</td><td></td><td> </td> 12/19/2020 12:00:00 AM EDT [facility] [place] W/I 7 Days Of DC, Comm W/I 2 Dys 12/02/2020 12:00:00 AM EDT [facility] ([facility] ECG ROUTINE ECG W/LEAST 12 LDS W/I&R <td>POCT AMB EKG</td><td>Routine</td><td>11/29/2020 5:43 PM EDT</td><td> Paroxysmal atrial fibrillation</td><td> </td> 11/29/2020 05:43:00 PM EDT Paroxysmal atrial fibrillation [facility] Paroxysmal atrial fibrillation BLOOD COUNT COMPLETE AUTO&AUTO DIFRNTL WBC COUNT <td>C BC AND DIFFERENTIAL</td><td>Routine</td><td>11/28/2020</td><td></td><td> </td> 11/28/2020 12:00:00 AM EDT [facility] BASIC METABOLIC PANEL CALCIUM TOTAL <td>BASIC METABOLI C PANEL</td><td>Routine</td><td>11/28/2020</td><td></td><td> </td> 11/28/2020 12:00:00 AM EDT [facility] TROPONIN QUANTITATIVE <td>TROPONIN I</td><td>Routine</td><td>11/27/2020</td><td></td><td> </td> 11/27/2020 12:00:00 AM EDT [facility] ECG ROUTINE ECG W/LEAST 12 LDS W/I&R <td>POCT AMB EKG</td><td>Routine</td><td>11/23/2020 5:22 PM EDT</td><td> Paroxysmal atrial fibrillation</td><td> </td> 11/23/2020 05:22:00 PM EDT Paroxysmal atrial fibrillation [facility] Paroxysmal atrial fibrillation Endoscopy Upper GI Biopsy 10/24/2020 12:00:00 AM EDT [facility], ) Colonoscopy Thru Stoma W/Biopsy 10/24/2020 12:00:00 AM EDT [facility], ) OFFICE OUTPATIENT VISIT 15 MINUTES 09/19/2020 12:00:00 AM EST [facility] ([facility], ) [place] W/I 7 Days Of DC, Comm W/I 2 Dys 09/09/2020 12:00:00 AM EST [facility] ([facility] Results ID Date Data Source [id number] 06/14/2021 11:11:00 AM EST [facility] ([facility] Name Value Range Interpretation Code Description Data Radhika rce(s) Supporting Document(s) White Blood Count 4.5 10 4.0-10.0 [facility] ([facility] Red Blood Count 2.43 10 4.00-5.40 [facility] ([facility] Hemoglobin 7.4 g/dL 12.0-15.5 [facility] ([facility] Hematocrit 24.0 % 36.0-47.0 [facility] ([facility] Mean Corpuscular Volume 98.8 fl 80.0-96.0 M [facility] ([facility] Mean Corpuscular HGB Conc 30.8 g/dL 32.0-36.5 [facility] ([facility] Mean Corpuscular Hemoglobin 30.5 pg 27.0-33.0 [facility] ([facility] Platelet Count, Automated 292 10 150-450 [facility] ([facility] Red Cell Distribution Width 15.8 % 11.5-14.5 [facility] ([facility] Lymph % 6.4 % 24.0-44.0 [facility] ([facility] Neutrophils % 79.1 % 36.0-66.0 [facility] ([facility] [place] % 12.6 % 2.0-8.0 [facility] Eos % 1.1 % 0.0-3.0 [facility] Baso % 0.4 % 0.0-1.0 [facility] Immature Granulocyte % 0.4 % 0-3.0 [facility] ([facility] Neutrophils # 3.6 10 1.5-8.5 [facility] ([facility] Nucleated Red Blood Cell % 0.0 % 0-0 [facility] ([facility] Lymph # 0.3 10 1.5-5.0 [facility] [place] # 0.6 10 0.0-0.8 [facility] ([facility] Eos # 0.1 10 0.0-0.5 [facility] Baso # 0.0 10 0.0-0.2 [facility] ID Date Data Source [id number] 06/14/2021 10:55:00 AM EST [facility] Name Value Range Interpretation Code Description Data Radhika rce(s) Supporting Document(s) SARS-CoV-2 (COVID-19) RNA [Presence] in Respiratory specimen by KELLI with probe detection Not Detected [facility] This lab was ordered by [facility] and reported by [email or web address]. ID Date Data Source [id number] 06/07/2021 10:15:00 AM EST [facility] ([facility] Name Value Range Interpretation Code Description Data Radhika rce(s) Supporting Document(s) White Blood Count 5.0 10 4.0-10.0 [facility] ([facility] Red Blood Count 2.28 10 4.00-5.40 [facility] ([facility] Hemoglobin 6.6 g/dL 12.0-15.5 Below lower panic limits [facility] ([facility] Hematocrit 22.2 % 36.0-47.0 [facility] ([facility] Mean Corpuscular Volume 97.4 fl 80.0-96.0 M [facility] ([facility] Mean Corpuscular Hemoglobin 28.9 pg 27.0-33.0 [facility] ([facility] Mean Corpuscular HGB Conc 29.7 g/dL 32.0-36.5 [facility] ([facility] Red Cell Distribution Width 16.4 % 11.5-14.5 [facility] ([facility] Platelet Count, Automated 324 10 150-450 [facility] ([facility] Lymph % 4.8 % 24.0-44.0 [facility] ([facility] Neutrophils % 80.4 % 36.0-66.0 [facility] ([facility] Eos % 2.0 % 0.0-3.0 [facility] [place] % 11.8 % 2.0-8.0 [facility] Immature Granulocyte % 0.6 % 0-3.0 [facility] ([facility] Baso % 0.4 % 0.0-1.0 [facility] Neutrophils # 4.0 10 1.5-8.5 [facility] ([facility] Nucleated Red Blood Cell % 0.0 % 0-0 [facility] ([facility] [place] # 0.6 10 0.0-0.8 [facility] Lymph # 0.2 10 1.5-5.0 [facility] Baso # 0.0 10 0.0-0.2 [facility] Eos # 0.1 10 0.0-0.5 [facility] ID Date Data Source [id number] 06/07/2021 10:13:00 AM EST [facility] ([facility] Name Value Range Interpretation Code Description Data Radhika rce(s) Supporting Document(s) Blood Type Laboratory test result [facility] ([facility] AB Screen (Indirect Farooq)Vis Laboratory test result [facility] ([facility] ID Date Data Source [id number] 06/07/2021 10:13:00 AM EST [facility] ([facility] Name Value Range Interpretation Code Description Data Radhika rce(s) Supporting Document(s) Packed Cells Laboratory test result [facility] ([facility] TRANSFUSED PRODUCT: PACKED CELLS COUNT: 3 ID Date Data Source [id number] 05/31/2021 10:23:00 AM EST [facility] ([facility] Name Value Range Interpretation Code Description Data Radhika rce(s) Supporting Document(s) Blood Type Laboratory test result [facility] ([facility] AB Screen (Indirect Farooq)Vis Laboratory test result [facility] ([facility] ID Date Data Source [id number] 05/31/2021 10:23:00 AM EST [facility] ([facility] Name Value Range Interpretation Code Description Data Radhika rce(s) Supporting Document(s) Packed Cells Laboratory test result [facility] ([facility] TRANSFUSED PRODUCT: PACKED CELLS COUNT: 2 ID Date Data Source [id number] 05/31/2021 10:23:00 AM EST [facility] ([facility] Name Value Range Interpretation Code Description Data Radhika rce(s) Supporting Document(s) White Blood Count 4.9 10 4.0-10.0 [facility] ([facility] Red Blood Count 2.65 10 4.00-5.40 [facility] ([facility] Hemoglobin 7.6 g/dL 12.0-15.5 [facility] ([facility] Hematocrit 25.4 % 36.0-47.0 [facility] Mean Corpuscular Volume 95.8 fl 80.0-96.0 M [facility] ([facility] Mean Corpuscular Hemoglobin 28.7 pg 27.0-33.0 [facility] ([facility] Mean Corpuscular HGB Conc 29.9 g/dL 32.0-36.5 [facility] ([facility] Red Cell Distribution Width 16.9 % 11.5-14.5 [facility] ([facility] Platelet Count, Automated 350 10 150-450 [facility] ([facility] Neutrophils % 79.3 % 36.0-66.0 [facility] ([facility] [place] % 11.0 % 2.0-8.0 [facility] ([facility] Lymph % 6.5 % 24.0-44.0 [facility] Eos % 1.8 % 0.0-3.0 [facility] Baso % 0.6 % 0.0-1.0 [facility] Nucleated Red Blood Cell % 0.0 % 0-0 [facility] ([facility] Immature Granulocyte % 0.8 % 0-3.0 [facility] ([facility] Lymph # 0.3 10 1.5-5.0 [facility] Neutrophils # 3.9 10 1.5-8.5 [facility] ([facility] [place] # 0.5 10 0.0-0.8 [facility] ([facility] Eos # 0.1 10 0.0-0.5 [facility] Baso # 0.0 10 0.0-0.2 [facility] ([facility] ID Date Data Source [id number] 05/24/2021 11:07:00 AM EST [facility] ([facility] Name Value Range Interpretation Code Description Data Radhika rce(s) Supporting Document(s) Red Blood Count 2.19 10 4.00-5.40 [facility] ([facility] White Blood Count 5.2 10 4.0-10.0 [facility] ([facility] Hematocrit 21.5 % 36.0-47.0 [facility] ([facility] Hemoglobin 6.3 g/dL 12.0-15.5 Below lower panic limits [facility] ([facility] Mean Corpuscular Hemoglobin 28.8 pg 27.0-33.0 [facility] ([facility] Mean Corpuscular Volume 98.2 fl 80.0-96.0 M [facility] ([facility] Mean Corpuscular HGB Conc 29.3 g/dL 32.0-36.5 [facility] ([facility] Red Cell Distribution Width 17.1 % 11.5-14.5 [facility] ([facility] Neutrophils % 81.0 % 36.0-66.0 [facility] ([facility] Platelet Count, Automated 327 10 150-450 [facility] ([facility]a [facility] Lymph % 4.2 % 24.0-44.0 [facility] (Anitha summers [facility] [place] % 11.7 % 2.0-8.0 [facility] (Anitha summers [facility] Baso % 0.6 % 0.0-1.0 [facility] (Anitha summers [facility] Eos % 1.9 % 0.0-3.0 [facility] (Anitha summers [facility] Nucleated Red Blood Cell % 0.0 % 0-0 MED [facility] (Anitha Gamez [facility] Immature Granulocyte % 0.6 % 0-3.0 [facility] ([facility]itha Gamez [facility] Neutrophils # 4.2 10 1.5-8.5 [facility] ([facility]itha Gamez [facility] Lymph # 0.2 10 1.5-5.0 [facility] (Anitha summers [facility] Eos # 0.1 10 0.0-0.5 [facility] (Anitha summers [facility] [place] # 0.6 10 0.0-0.8 [facility] (Anitha summers [facility] Baso # 0.0 10 0.0-0.2 [facility] ([facility]itha [facility]ers [facility] ID Date Data Source [id number] 05/24/2021 11:05:00 AM EST [facility] ([facility] Name Value Range Interpretation Code Description Data Radhika rce(s) Supporting Document(s) Blood Type Laboratory test result [facility] ([facility]a Gamez [facility] AB Screen (Indirect Farooq)Vis Laboratory test result [facility] ([facility]a Gamez [facility] ID Date Data Source [id number] 05/24/2021 11:05:00 AM EST [facility] ([facility]z [facility] Name Value Range Interpretation Code Description Data Radhika rce(s) Supporting Document(s) Packed Cells Laboratory test result [facility] ([facility]a [facility] TRANSFUSED PRODUCT: PACKED CELLS COUNT: 3 ID Date Data Source [id number] 05/17/2021 09:55:00 AM EDT [facility] ([facility] Name Value Range Interpretation Code Description Data Radhika rce(s) Supporting Document(s) Packed Cells Laboratory test result [facility] ([facility]itha Game[facility] TRANSFUSED PRODUCT: PACKED CELLS COUNT: 2 ID Date Data Source [id number] 05/17/2021 09:55:00 AM EDT [facility] ([facility]itha Gamez [facility] Name Value Range Interpretation Code Description Data Radhika rce(s) Supporting Document(s) Blood Type Laboratory test result [facility] ([facility]a Gamez [facility] AB Screen (Indirect Farooq)Vis Laboratory test result [facility] ([facility]itha Gamez [facility] ID Date Data Source [id number] 05/17/2021 09:55:00 AM EDT [facility] ([facility] Name Value Range Interpretation Code Description Data Radhika e(s) Supporting Document(s) White Blood Count 4.6 10 4.0-10.0 [facility] (Chery [facility] Red Blood Count 2.09 10 4.00-5.40 [facility] ([facility] Hemoglobin 6.2 g/dL 12.0-15.5 Below lower panic limits [facility] ([facility] Hematocrit 20.9 % 36.0-47.0 [facility] ([facility] orellana [facility] Mean Corpuscular Volume 100.0 fl 80.0-96.0 M [facility] ([facility] Mean Corpuscular HGB Conc 29.7 g/dL 32.0-36.5 [facility] (Aintha [facility] Mean Corpuscular Hemoglobin 29.7 pg 27.0-33.0 [facility] ([facility] Red Cell Distribution Width 17.2 % 11.5-14.5 [facility] ([facility] Neutrophils % 80.5 % 36.0-66.0 [facility] ([facility] Platelet Count, Automated 290 10 150-450 [facility] ([facility] Lymph % 5.7 % 24.0-44.0 [facility] ([facility]a [facility] [place] % 11.3 % 2.0-8.0 [facility] (Anitha summers [...] [facility] ([facility] Neutrophils # 3.7 10 1.5-8.5 [facility] ([facility] Eos # 0.1 10 0.0-0.5 [facility] ([facility] [place] # 0.5 10 0.0-0.8 [facility] ([facility] Baso # 0.0 10 0.0-0.2 [facility] ([facility] ID Date Data Source [id number] 05/10/2021 11:04:00 AM EDT [facility] (Anitha Gamez [...] M [facility]ENT ([facility] Hematocrit 32.2 % 36.0-47.0 [facility] ([facility]rellana [facility] Mean Corpuscular Hemoglobin 30.0 pg 27.0-33.0 [facility] ([facility] Platelet Count, Automated 302 10 150-450 [facility] ([facility] Mean Corpuscular HGB Conc 30.7 g/dL 32.0-36.5 [facility] ([facility] Red Cell Distribution Width 17.9 % 11.5-14.5 [facility] ([facility] Neutrophils % 84.3 % 36.0-66.0 [facility] ([facility] [place] % 8.7 % 2.0-8.0 [facility] (Anitha summers [...] [facility] ([facility] Neutrophils # 4.4 10 1.5-8.5 [facility] ([facility] Lymph # 0.3 10 1.5-5.0 [facility] (Anitha A. Krystian liams, [facility] [place] # 0.5 10 0.0-0.8 [facility] ([facility] Eos # 0.1 10 0.0-0.5 [facility] ([facility] Baso # 0.0 10 0.0-0.2 [facility] ([facility] ID Date Data Source [id number] 05/08/2021 08:43:00 AM EDT [facility] ([facility] Name Value Range Interpretation Code Description Data Radhika rce(s) Supporting Document(s) Occult Blood Laboratory test result Abnormal (applies to non-numeric results) [facility] ([facility] OCCULT BLOOD 1 POSITIVE ID Date Data Source [id number] 05/08/2021 08:43:00 AM EDT [facility] ([facility] Name Value Range Interpretation Code Description Data Radhika rce(s) Supporting Document(s) Packed Cells Laboratory test result [facility] ([facility] TRANSFUSED PRODUCT: PACKED CELLS COUNT: 1 ID Date Data Source [id number] 05/08/2021 08:43:00 AM EDT [facility] ([facility] Name Value Range Interpretation Code Description Data Radhika rce(s) Supporting Document(s) Blood Type Laboratory test result [facility] ([facility] AB Screen (Indirect Farooq)Vis Laboratory test result [facility] ([facility] ID Date Data Source [id number] 05/08/2021 08:43:00 AM EDT [facility] ([facility] Name Value Range Interpretation Code Description Data Radhika rce(s) Supporting Document(s) White Blood Count 4.8 10 4.0-10.0 [facility] (Chery [facility] Red Blood Count 2.86 10 4.00-5.40 [facility] ([facility] Hemoglobin 8.2 g/dL 12.0-15.5 [facility] ([facility]a orellana [facility] Hematocrit 27.4 % 36.0-47.0 [facility] ([facility]rellana [facility] Mean Corpuscular Volume 95.8 fl [...] % 36.0-66.0 [facility] ([facility] [place] % 11.2 % 2.0-8.0 [facility] (Anitha summers [...] ENT ([facility]a [facility] Neutrophils # 3.9 10 1.5-8.5 [facility] ([facility] Lymph # 0.3 10 1.5-5.0 [facility] ([facility]itha [facility] [place] # 0.5 10 0.0-0.8 [facility] ([facility] Eos # 0.1 10 0.0-0.5 [facility] ([facility] Baso # 0.0 10 0.0-0.2 [facility] ([facility] ID Date Data Source [id number] 05/05/2021 01:09:00 PM EDT [facility] ([facility] Name Value Range Interpretation Code Description Data Radhika rce(s) Supporting Document(s) Inr 1.04 [facility] ([facility] THERAPUTIC HUMAN INR VALUES INDICATIONS NORMAL RANGES PROPHYLAXIS/TREATMENT OF: VENOUS THROMBOSIS 2.0-3.0 PULMONARY EMBOLISM 2.0-3.0 PREVENTION OF SYSTEMIC EMBOLISM FROM: TISSUE HEART VALVES 2.0-3.0 ACUTE MYOCARDIAL INFARCTION 2.0-3.0 VALVULAR HEART DISEASE 2.0-3.0 ATRIAL FIBRILLATION 2.0-3.0 MECHANICAL VALVES(HIGH RISK) 2.5-3.5 RECURRENT MYOCARDIAL INFARCTION 2.5-3.5 Prothrombin Time 14.0 s 12.7-14.5 [facility] ([facility] ID Date Data Source [id number] 05/05/2021 01:09:00 PM EDT [facility] ([facility] Name Value Range Interpretation Code Description Data Radhika rce(s) Supporting Document(s) aPTT in Platelet poor plasma by Coagulation assay 24.9 s 25.9-37. 0 [facility] ([facility] ID Date Data Source [id number] 05/05/2021 01:09:00 PM EDT [facility] ([facility] Name Value Range Interpretation Code Description Data Radhika rce(s) Supporting Document(s) Collagen Epinephrine Laboratory test result 74-162 [facility] ([facility] <content>UNABLE TO PERFORM TEST DUE TO h ct <35%</content>
<content></content> ID Date Data Source [id number] 05/05/2021 01:09:00 PM EDT [facility] (Anitha Gamez [...] and its performa nce characteristics determined by [facility]. It has not been cleared or approved by the Food and Drug Administration. Interpretation: Laboratory test result [facility] ([facility] COAGULATION: VON WILLEBRAND [...] cofactor activity; FVIII - factor VIII activity. DIE FITTER: For questions regarding panel interpretation, please contact Mikal Wasserman M.D. at [employer] at . DISCLAIMER These assessments and interpretations [...] (1) The National Heart, Lung and Blood [place]. The Diagnosis, Evaluation and Management of von Willebrand Disease. Valentine, MD: National Institutes of Health Publication 08-5832. 2007. Available at http://www.nhlbi.nih.gov/guidelines/vwd/. (2) Tayo MONTES et al. Am J Hematol. 2009; 84(6):366-370. (3) Pam M et al. Haemophilia. 2004;10(3):199-217. (4) Lety WOODRUFF et al. Haemophilia. 2004; 10(3):218-231. F8 Activity vWB For F8 Panel 71 % 50-200 [facility] ([facility] ID Date Data Source [id number] 05/05/2021 01:09:00 PM EDT [facility] ([facility] Name Value Range Interpretation Code Description Data Radhika rce(s) Supporting Document(s) Haptoglobin [Mass/volume] in Serum or Plasma 214 mg/dL 41-333 [facility] ([facility] Performed at: [facility] [id number] [employer] [place] Type: Matt Mcdonnell MD, Phone: [phone] Performed at: [facility] [address] [place] [address] [place] [id number] [employer] [place] Type: Gary Youngblood MD, Phone: [phone] Performed at: [facility] [id number] [employer] [place] Type: Teresa Nguyen MD, Phone: [phone] Lactate dehydrogenase [Enzymatic activit y/volume] in Serum or Plasma by Lactate to pyruvate reaction 128 U/L 84-246 [facility] ([facility] ID Date Data Source [id number] 05/05/2021 01:09:00 PM EDT [facility] ([facility] Name Value Range Interpretation Code Description Data Radhika rce(s) Supporting Document(s) Reticulocyte # 119.8 10 17-77 [facility] ([facility] Reticulocyte % 5.9 % 0.5-1.5 [facility] ([facility] Retic Hemoglobin Equivalent 30.7 pg 24-36 [facility] ([facility] ID Date Data Source [id number] 05/05/2021 09:52:00 AM EDT [facility] (Anitha Gamez [...] ([facility] Mean Corpuscular Volume 102.5 fl [...] % 24.0-44.0 [facility] ([facility]itha [facility] [place] % 11.5 % 2.0-8.0 [facility] (Anitha summers [...] 10 1.5-8.5 [facility] ([facility] [place] # 0.6 10 0.0-0.8 [facility] ([facility]itha [facility] Eos # 0.0 10 0.0-0.5 [facility] ([facility]a [facility] Baso # 0.0 10 0.0-0.2 [facility] (nAitha [facility]ers [facility] ID Date Data Source [id number] 05/05/2021 09:52:00 AM EDT [facility] ([facility] Name Value Range Interpretation Code Description Data Radhika rce(s) Supporting Document(s) AB Screen (Indirect Farooq)Vis Laboratory test result [facility] ([facility] Blood Type Laboratory test result [facility] ([facility] ID Date Data Source [id number] 05/05/2021 09:52:00 AM EDT [facility] ([facility] Name Value Range Interpretation Code Description Data Radhika rce(s) Supporting Document(s) Packed Cells Laboratory test result [facility] ([facility] TRANSFUSED PRODUCT: PACKED CELLS COUNT: 2 ID Date Data Source [id number] 04/27/2021 11:17:00 AM EDT [facility] ([facility] Name Value Range Interpretation Code Description Data Radhika rce(s) Supporting Document(s) Red Blood Count 3.22 10 4.00-5.40 [facility] ([facility] White Blood Count 4.2 10 4.0-10.0 [facility] ([facility]hery [facility] Hematocrit 32.1 % 36.0-47.0 [facility] ([facility] orellana [facility] Hemoglobin 9.8 g/dL 12.0-15.5 [facility] [...] % 36.0-66.0 [facility] ([facility] [place] % 12.8 % 2.0-8.0 [facility] (Anitha summers [...] 10 1.5-8.5 [facility] ([facility] [place] # 0.5 10 0.0-0.8 [facility] ([facility]itha [facility] Eos # 0.0 10 0.0-0.5 [facility] ([facility]a [facility] Baso # 0.0 10 0.0-0.2 [facility] ([facility]a [facility] ID Date Data Source [id number] 04/20/2021 03:39:00 PM EDT [facility] ([facility] Name Value Range Interpretation Code Description Data Radhika rce(s) Supporting Document(s) Red Blood Count 2.28 10 4.00-5.40 [facility] ([facility] White Blood Count 3.9 10 4.0-10.0 [facility] (Chery [facility] Hemoglobin 6.8 g/dL 12.0-15.5 Below lower panic limits [facility] ([facility] Hematocrit 23.4 % 36.0-47.0 [facility] (Anitha orellana [facility] Mean Corpuscular Volume 102.6 fl 80.0-96.0 M [facility] ([facility]a [facility] Mean Corpuscular Hemoglobin 29.8 pg 27.0-33.0 [facility] ([facility] Mean Corpuscular HGB Conc 29.1 g/dL 32.0-36.5 [facility] ([facility] Red Cell Distribution Width 17.6 % 11.5-14.5 [facility] ([facility] Neutrophils % 77.0 % 36.0-66.0 [facility] ([facility] Platelet Count, Automated 276 10 150-450 [facility] ([facility] [place] % 11.9 % 2.0-8.0 [facility] ([facility]itha [facility] Lymph % 8.8 % 24.0-44.0 [facility] ([facility]itha [facility] Baso % 0.5 % 0.0-1.0 [facility] ([facility]a [facility] Eos % 1.0 % 0.0-3.0 [facility] ([facility]itha [facility] Nucleated Red Blood Cell % 0.0 % 0-0 MED [facility] ([facility]a [facility] Immature Granulocyte % 0.8 % 0-3.0 [facility] ([facility] Neutrophils # 3.0 10 1.5-8.5 [facility] ([facility] Lymph # 0.3 10 1.5-5.0 [facility] (Anitha [facility] Eos # 0.0 10 0.0-0.5 [facility] ([facility]a [facility] [place] # 0.5 10 0.0-0.8 [facility] ([facility] Baso # 0.0 10 0.0-0.2 [facility] ([facility] ID Date Data Source [id number] 04/18/2021 10:02:49 PM EDT Lab [place] [facility] Name Value Range Interpretation Code Description Data Radhika rce(s) Supporting Document(s) WBC 3.5 10*3/uL (4.1-11.0) L [facility] [place] RBC 2.39 10*6/uL (4.00-5.40) L [facility] [place] [facility] [place] HGB 7.6 g/dL (12.0-16.0) L [facility] [place] [facility] [place] HCT 24.3 % (36.0-47.0) L [facility] [place] [facility] MCV 101.8 fL (80.0-95.0) H [facility] [place] [facility] [place] MCH 31.7 pg (27.0-32.0) [facility] [place] [facility] [place] MCHC 31.1 g/dL (32.0-36.0) L [facility] [place] [facility] RDW 19.9 % (10.5-14.5) H [facility] [place] [facility] PLT 272 10*3/uL (150-450) [facility] [place] [facility] MPV 8.9 fL (7.1-10.7) [facility] [place] [facility] ID Date Data Source [id number] 04/12/2021 02:14:00 PM EDT [facility] ([facility] Name Value Range Interpretation Code Description Data Radhika rce(s) Supporting Document(s) White Blood Count 4.6 10 4.0-10.0 [facility] ([facility]y [facility] Red Blood Count 2.91 10 4.00-5.40 [facility] ([facility] Hematocrit 28.8 % 36.0-47.0 [facility] ([facility]a orellana [facility] Hemoglobin 8.9 g/dL 12.0-15.5 [facility] [...] % 24.0-44.0 [facility] ([facility]a [facility] [place] % 9.4 % 2.0-8.0 [facility] (Anitha summers [...] 10 0.0-0.5 [facility] ([facility]a [facility] [place] # 0.4 10 0.0-0.8 [facility] ([facility]a [facility] Baso # 0.0 10 0.0-0.2 [facility] ([facility] ID Date Data Source [id number] 04/10/2021 10:15:00 AM EDT [facility] ([facility] Name Value Range Interpretation Code Description Data [facility](s) Supporting Document(s) Coronavirus 2019 Nasopharygeal Laboratory test result [facility] ([facility] ASSAY INFORMATION: Real Time RT-PCR or T MA. Both RT-PCR and TMA are nucleic acid amplification tests (NAAT) which are molecular testing modalities and recommended by the CDC for passenger travel. Testing and International Air Travel, cdc.gov/coronavirus/2019-ncov/travelers/wwxcdiu-prc-wpvopf.html 09/01/2020 NOTE: The COVID-19 assay is under Emergency Use Authorization (EUA) by the U.S. Food and Drug Administration. [employer] and [facility] are designated as high complexity laboratories by the Clinical Laboratory Improvement Amendments of 1988 (CLIA) and are qualified to perform this test. Not Detected ID Date Data Source [id number] 04/10/2021 10:15:00 AM EDT [facility] Name Value Range Interpretation Code Description Data [facility](s) Supporting Document(s) SARS-CoV-2 (COVID-19) RNA [Presence] in Respiratory specimen by KELLI with probe detection Not Detected [facility] This lab was ordered by [facility] and reported by [employer] ID Date Data Source [id number] 04/07/2021 09:48:00 AM EDT [facility] ([facility] Name Value Range Interpretation Code Description Data [facility](s) Supporting Document(s) Glucose, Fasting 184 mg/dL 70-100 [facility] ([facility] Blood Urea Nitrogen 30 mg/dL 7-18 [facility] (Angela [facility] Creatinine For GFR 0.81 [...] Little GFR Left</content>
<content>ESRD GFR <15 on EDGE BLACKER</content>
<content></content> Sodium Level 141 meq/L 136-145 [facility] ([facility] Chloride Level 107 meq/L [...] 0.2-1.0 [facility] ([facility] Albumin 2.9 GM/DL 3.2-5.2 [facility] ([facility]itha [facility]ers [facility] Total Protein 5.7 GM/DL 6.4-8.2 [facility] ([facility] Albumin/Globulin Ratio 1.0 1.2-2.2 [facility] ([facility] ID Date Data Source [id number] 04/07/2021 09:48:00 AM EDT [facility] ([facility] Name Value Range Interpretation Code Description Data Radhika rce(s) Supporting Document(s) Carcinoembryonic Ag [Mass/volume] in Serum or Plasma Laboratory melly t result [facility] ([facility] THE CEA ASSAY IS PERFORMED ON THE [employer] BY CHEMILUMINESCENCE AND SHOULD NOT BE COMPARED [...] [facility] ID Date Data Source [id number] 04/07/2021 09:48:00 AM EDT [facility] ([facility] Name Value Range Interpretation Code Description Data Radhika rce(s) Supporting Document(s) Iron (Fe) 48 ug/dL 50-170 [facility] ([facility] Total Iron Binding Capacity 353 ug/dL 250-450 [facility] ([facility] Percent Saturation 13.6 % 13.2-45.0 [facility] (Tyrone [facility] ID Date Data Source [id number] 04/07/2021 09:38:00 AM EDT [facility] ([facility] Name Value Range Interpretation Code Description Data Radhika rce(s) Supporting Document(s) White Blood Count 3.4 10 4.0-10.0 [facility] (Chery n A. Franco, [facility] Red Blood Count 2.12 10 [...] [facility] ([facility] Neutrophils % 78.5 % 36.0-66.0 [facility] ([facility] [place] % 10.9 % 2.0-8.0 [facility] ([facility]a [facility] Lymph % 8.5 % 24.0-44.0 [...] 10 1.5-8.5 [facility] ([facility] [place] # 0.4 10 0.0-0.8 [facility] ([facility]a [facility] Eos # 0.0 10 0.0-0.5 [facility] ([facility]a [facility] Baso # 0.0 10 0.0-0.2 [facility] ([facility] ID Date Data Source [id number] 04/07/2021 09:35:00 AM EDT [facility] ([facility] Name Value Range Interpretation Code Description Data Radhika rce(s) Supporting Document(s) Packed Cells Laboratory test result [facility] ([facility] TRANSFUSED PRODUCT: PACKED CELLS COUNT: 3 ID Date Data Source [id number] 04/07/2021 09:35:00 AM EDT [facility] ([facility] Name Value Range Interpretation Code Description Data Radhika rce(s) Supporting Document(s) Blood Type Laboratory test result [facility] ([facility] AB Screen (Indirect Farooq)Vis Laboratory test result [facility] ([facility] ID Date Data Source [id number] 03/24/2021 02:00:00 PM EDT [facility] (Anitha Gamez [...] pathogens. DISCLAIMER: Testing was performed using the [employer] SARS-CoV-2 test. This test was developed and its performance characteristics determined by [employer]. This test has not been FDA cleared [...] patient management decisions. ID Date Data Source [id number] 03/24/2021 02:00:00 PM EDT [facility] (Anitha Gamez [...] Little GFR Left</content>
<content>ESRD GFR <15 on EDGE BLACKER</content>
<content></content> Sodium Level 141 meq/L 136-145 [facility] ([facility] Chloride Level 111 meq/L 98-107 [facility] ([facility] Potassium Serum 4.3 meq/L 3.5-5.1 [facility] ([facility] Carbon Dioxide Level 24 meq/L 21-32 [facility] (Srinivas [facility] Anion Gap 6 meq/L 8-16 [facility] ([facility] Calcium Level 9.1 mg/dL 8.8-10.2 [facility] ([facility] Alt/SGPT 14 U/L 12-78 [facility] ([facility] Ast/Sgot 10 U/L 7-37 [facility] ([facility] Alkaline Phosphatase 79 U/L 45-117 [facility] (Srinivas [facility] Bilirubin,Total 0.8 mg/dL 0.2-1.0 [facility] (Anihta [facility] Total Protein 6.0 GM/DL 6.4-8.2 [facility] ([facility] Albumin 3.0 GM/DL 3.2-5.2 [facility] ([facility] Albumin/Globulin Ratio 1.0 1.2-2.2 [facility] ([facility] ID Date Data Source [id number] 03/24/2021 02:00:00 PM EDT [facility] Name Value Range Interpretation Code Description Data Radhika rce(s) Supporting Document(s) SARS coronavirus 2 RNA [Presence] in Res piratory specimen by KELLI with probe detection NEGATIVE [facility] This lab was ordered by [facility] a nd reported by [facility]. ID Date Data Source [id number] 03/24/2021 11:43:00 AM EDT [facility] ([facility] Name Value Range Interpretation Code Description Data Radhika rce(s) Supporting Document(s) Packed Cells Laboratory test result [facility] ([facility] TRANSFUSED PRODUCT: PACKED CELLS COUNT: 1 ID Date Data Source [id number] 03/24/2021 11:02:00 AM EDT [facility] (Anitha Gamez [...] M [facility] ([facility] Hematocrit 19.5 % [...] % 0.0-3.0 [facility] ([facility] [place] % 11.4 % 2.0-8.0 [facility] ([facility] Baso % 0.4 % 0.0-1.0 [facility] ([facility] Immature Granulocyte % 0.4 % 0-3.0 [facility] ([facility] Nucleated Red Blood Cell % 0.7 % 0-0 MED [facility] ([facility] Neutrophils # 3.7 10 1.5-8.5 [facility] ([facility] [place] # 0.5 10 0.0-0.8 [facility] ([facility] Lymph # 0.3 10 1.5-5.0 [facility] ([facility] Baso # 0.0 10 0.0-0.2 [facility] ([facility] Eos # 0.0 10 0.0-0.5 [facility] ([facility] ID Date Data Source [id number] 03/17/2021 10:56:00 AM EDT [facility] ([facility] Name Value Range Interpretation Code Description Data Radhika rce(s) Supporting Document(s) Hemoglobin A1c/Hemoglobin.total in Blood 4.8 % 4.8-5.6 [facility] ([facility] <content>Prediabetes: 5.7 - 6.4</content >
<content>Diabetes: >6.4</content>
<content>Glycemic control for adults with diabetes: <7.0</content>
<content></content> ID Date Data Source [id number] 03/17/2021 10:56:00 AM EDT [facility] (Anitha Gamez [...] 73 mL/min/1.73 [facility] ([facility] Creatinine [Mass/volume] [...] mmol/L 3.5-5.2 [facility] ([facility] Sodium [Moles/volume] in Serum or Plasma 142 mmol/L 134-144 [facility] ([facility] Chloride [Moles/volume] in Serum or Plasma 108 mmol/L 96-106 [facility] ([facility] Protein, Total 6.1 g/dL 6.0-8.5 [facility] ([facility] Carbon dioxide, total [Moles/volume] in Serum or Plasma 22 mmol/L 20 -29 [facility] ([facility] Albumin [Mass/volume] [...] ([facility] ID Date Data Source [id number] 03/17/2021 10:56:00 AM EDT [facility] ([facility] Name Value Range Interpretation Code Description Data Radhika rce(s) Supporting Document(s) Cholesterol [Mass/volume] in Serum or Plasma 123 mg/dL 100-199 [facility] ([facility] Triglyceride [Mass/volume] in Serum or Plasma 141 mg/dL 0-149 [facility] ([facility] Cholesterol in HDL [Mass/volume] in Serum or Plasma 37 mg/dL [facility] Laboratory test finding (navigational concept) 25 mg/dL 5-40 [facility] Comment: Laboratory test result [facility] Laboratory test finding (navigational concept) 61 mg/dL 0-99 [facility] ID Date Data Source [id number] 03/17/2021 10:56:00 AM EDT [facility] ([facility] [...] Severely increased: >300 ID Date Data Source [id number] 03/18/2021 06:06:00 AM EDT [facility] Name Value [...] IU/L 0-32 [facility] ID Date Data Source [id number] 03/18/2021 07:05:00 AM EDT [facility] Name Value Range Interpretation Code Description Data Radhika rce(s) Supporting Document(s) Cholesterol, Total 123 mg/dL 100-199 [facility] Triglycerides 141 mg/dL 0-149 [facility] HDL Cholesterol 37 mg/dL >39 Below low normal [facility] VLDL Cholesterol Gerald 25 mg/dL 5-40 [facility] LDL Chol Calc (NIH) 61 mg/dL 0-99 [facility] ID Date Data Source [id number] 03/18/2021 10:06:00 AM EDT [facility] Name Value Range Interpretation Code Description Data Radhika rce(s) Supporting Document(s) Hemoglobin A1c 4.8 % 4.8-5.6 [facility] Prediabetes: 5.7 - 6.4 Diabetes: >6.4 Glycemic control for adults with diabetes: <7.0 ID Date Data Source [id number] 03/18/2021 03:05:00 PM EDT [facility] Name Value Range Interpretation Code Description Data Radhika rce(s) Supporting Document(s) Creatinine, Urine 120.2 mg/dL Not Estab. [facility] Albumin, Urine 20.1 ug/mL Not Estab. [facility] Alb/Creat Ratio 17 mg/g creat 0-29 [facility] No rmal: 0 - 29 Moderately increased: 30 - 300 Severely increased: >300 ID Date Data Source [id number] 03/14/2021 08:15:00 AM EDT [facility] ([facility] [...] % 24.0-44.0 [facility] [place] % 9.3 % 2.0-8.0 [facility] Eos % 1.0 % 0.0-3.0 [facility] Immature Granulocyte % 0.3 % 0-3.0 [facility] Baso % 0.8 % 0.0-1.0 [facility] Nucleated Red Blood Cell % 0.0 % 0-0 [facility] Neutrophils # 3.3 10 1.5-8.5 [facility] Lymph # 0.3 10 1.5-5.0 [facility] [place] # 0.4 10 0.0-0.8 [facility] Eos # 0.0 10 0.0-0.5 [facility] Baso # 0.0 10 0.0-0.2 [facility] ID Date Data Source [id number] 03/14/2021 08:15:00 AM EDT [facility] ([facility] Name Value Range Interpretation Code Description Data Radhika rce(s) Supporting Document(s) Packed Cells Laboratory test result [facility] TRANSFUSED PRODUCT: PACKED CELLS COUNT: 2 ID Date Data Source [id number] 03/14/2021 08:15:00 AM EDT [facility] ([facility] Name Value Range Interpretation Code Description Data Radhika rce(s) Supporting Document(s) Blood Type Laboratory test result [facility] AB Screen (Indirect Farooq)Vis Laboratory test result [facility] ID Date Data Source [id number] 03/10/2021 11:17:00 AM EDT [facility] ([facility] Name Value Range Interpretation Code Description Data Radhika rce(s) Supporting Document(s) Carcinoembryonic Ag [Mass/volume] in Serum or Plasma Laboratory melly t result [facility] ([facility] THE CEA ASSAY IS PERFORMED ON THE [employer] BY CHEMILUMINESCENCE AND SHOULD NOT BE COMPARED [...] [facility] ID Date Data Source [id number] 03/10/2021 11:17:00 AM EDT [facility] ([facility] Name Value Range Interpretation Code Description Data Radhika rce(s) Supporting Document(s) Iron (Fe) 72 ug/dL 50-170 [facility] ([facility] Total Iron Binding Capacity 352 ug/dL 250-450 [facility] ([facility] Percent Saturation 20.5 % 13.2-45.0 [facility] ([facility]one [facility] ID Date Data Source [id number] 03/10/2021 11:17:00 AM EDT [facility] (Anitha Gamez [...] Little GFR Left</content>
<content>ESRD GFR <15 on EDGE BLACKER</content>
<content></content> Creatinine For GFR 0.73 mg/dL 0.55-1.30 [facility] [...] [facility] ([facility] Total Protein 6.1 GM/DL 6.4-8.2 [facility] ([facility] Bilirubin,Total 0.7 mg/dL 0.2-1.0 [facility] ([facility] Albumin 3.1 GM/DL 3.2-5.2 [facility] ([facility] Albumin/Globulin Ratio 1.0 1.2-2.2 [facility] ([facility] ID Date Data Source [id number] 03/10/2021 11:17:00 AM EDT [facility] ([facility] Name Value Range Interpretation Code Description Data Radhika rce(s) Supporting Document(s) White Blood Count 3.4 10 4.0-10.0 [facility] ([facility]hery [facility] Red Blood Count 2.38 10 4.00-5.40 [facility] ([facility] Hematocrit 25.8 % 36.0-47.0 [facility] ([facility] Mean Corpuscular Volume 108.4 fl 80.0-96.0 M [facility] ([facility] Hemoglobin 7.8 g/dL 12.0-15.5 [facility] ([facility] Mean Corpuscular Hemoglobin 32.8 pg 27.0-33.0 [facility] ([facility] Mean Corpuscular HGB Conc 30.2 g/dL 32.0-36.5 [facility] ([facility] Red Cell Distribution Width 19.5 % 11.5-14.5 [facility] ([facility] Neutrophils % 77.4 % 36.0-66.0 [facility] ([facility] Platelet Count, Automated 267 10 150-450 [facility] ([facility] Lymph % 7.6 % 24.0-44.0 [facility] ([facility] [place] % 12.9 % 2.0-8.0 [facility] (Anitha summers [...] Eos # 0.0 10 0.0-0.5 [facility] ([facility] [place] # 0.4 10 0.0-0.8 [facility] ([facility] Baso # 0.0 10 0.0-0.2 [facility] ([facility] ID Date Data Source [id number] 02/28/2021 08:10:00 AM EDT [facility] ([facility] Name Value Range Interpretation Code Description Data Radhika rce(s) Supporting Document(s) Blood Type Laboratory test result [facility] ([facility] A[facility] Franco[facility] AB Screen (Indirect Farooq)Vis Laboratory test result [facility] ([facility] ID Date Data Source [id number] 02/28/2021 08:10:00 AM EDT [facility] ([facility] Name Value Range Interpretation Code Description Data Radhika rce(s) Supporting Document(s) Packed Cells Laboratory test result [facility] ([facility] TRANSFUSED PRODUCT: PACKED CELLS COUNT: 2 ID Date Data Source [id number] 02/27/2021 09:45:00 AM EDT [facility] (Anitha Gamez [...] Little GFR Left</content>
<content>ESRD GFR <15 on EDGE BLACKER</content>
<content></content> ID Date Data Source [id number] 02/27/2021 09:45:00 AM EDT [facility] ([facility] Name Value Range Interpretation Code Description Data Radhika rce(s) Supporting Document(s) Total Iron Binding Capacity 384 ug/dL 250-450 [facility] ([facility] Iron (Fe) 79 ug/dL 50-170 [facility] ([facility] Percent Saturation 20.6 % 13.2-45.0 [facility] ([facility]one [facility] ID Date Data Source [id number] 02/27/2021 09:45:00 AM EDT [facility] ([facility] Name Value Range Interpretation Code Description Data Radhika rce(s) Supporting Document(s) Ferritin [Mass/volume] in Serum or Plasma 1039 ng/mL 8-252 [facility] ([facility] ID Date Data Source [id number] 02/27/2021 09:45:00 AM EDT [facility] ([facility] Name Value Range Interpretation Code Description Data Radhika rce(s) Supporting Document(s) Red Blood Count 2.00 10 4.00-5.40 [facility] ([facility] White Blood Count 6.0 10 4.0-10.0 [facility] ([facility]y [facility] Hemoglobin 6.5 g/dL 12.0-15.5 Below lower panic limits [facility] ([facility] Hematocrit 22.5 % 36.0-47.0 [facility] ([facility] Mean Corpuscular Volume 112.5 fl 80.0-96.0 M [facility] ([facility] Mean Corpuscular Hemoglobin 32.5 pg 27.0-33.0 [facility] ([facility] Red Cell Distribution Width 24.1 % 11.5-14.5 [facility] ([facility] Mean Corpuscular HGB Conc 28.9 g/dL 32.0-36.5 [facility] ([facility] Platelet Count, Automated 316 10 150-450 [facility] ([facility] Neutrophils % 82.1 % 36.0-66.0 [facility] ([facility] Lymph % 4.7 % 24.0-44.0 [facility] ([facility] [place] % 11.6 % 2.0-8.0 [facility] ([facility] Eos % 0.5 % 0.0-3.0 [facility] ([facility] Baso % 0.3 % 0.0-1.0 [facility] ([facility] Immature Granulocyte % 0.8 % 0-3.0 [facility] ([facility] Nucleated Red Blood Cell % 0.3 % 0-0 [facility] ([facility] Neutrophils # 4.9 10 1.5-8.5 [facility] ([facility] Eos # 0.0 10 0.0-0.5 [facility] ([facility] [place] # 0.7 10 0.0-0.8 [facility] ([facility] Lymph # 0.3 10 1.5-5.0 [facility] ([facility] Baso # 0.0 10 0.0-0.2 [facility] ([facility] ID Date Data Source [id number] 02/27/2021 09:45:00 AM EDT [facility] ([facility] Name Value Range Interpretation Code Description Data Radhika rce(s) Supporting Document(s) Urea nitrogen [Mass/volume] in Serum or Plasma 26 mg/dL 7-18 [facility] ([facility] ID Date Data Source [id number] 02/27/2021 09:45:00 AM EDT [facility] ([facility]) Name Value Range Interpretation Code Description Data Radhika rce(s) Supporting Document(s) White Blood Count 6.0 10 4.0-10.0 Normal (applies to non-numeri c results) [facility] ([facility]) Red Blood Count 2.00 10 4.00-5.40 Below low normal [facility] ([facility]) Hemoglobin 6.5 g/dL 12.0-15.5 Below lower panic limits [facility] ([facility]) Hematocrit 22.5 % 36.0-47.0 Below low normal [facility] ( [facility]) Mean Corpuscular Volume 112.5 fl 80.0-96.0 Above high normal [facility] ([facility]) Mean Corpuscular Hemoglobin 32.5 pg 27.0-33.0 Norm al (applies to non-numeric results) [facility] ([facility]) Mean Corpuscular HGB Conc 28.9 g/dL 32.0-36.5 Below low normal [facility]) Platelet Count, Automated 316 10 150-450 Normal (applies to non-numeric results) [facility] Red Cell Distribution Width 24.1 % 11.5-14.5 Above high normal [facility] ([facility]) Lymph % 4.7 % 24.0-44.0 Below low normal [facility] ( [facility]) Neutrophils % 82.1 % 36.0-66.0 Above high normal [facility] ([facility]) [place] % 11.6 % 2.0-8.0 Above high normal [facility] ([facility]) Eos % 0.5 % 0.0-3.0 Normal (applies to non-numeric resul ts) [facility] ([facility]) Immature Granulocyte % 0.8 % 0-3.0 Normal (applies to non-n umeric results) [facility] ([facility]) Baso % 0.3 % 0.0-1.0 Normal (applies to non-numeric resul ts) [facility] ([facility]) Neutrophils # 4.9 10 1.5-8.5 Normal (applies to non-numeric re sults) [facility] ([facility]) Nucleated Red Blood Cell % 0.3 % 0-0 Above high normal [facility] ([facility]) Lymph # 0.3 10 1.5-5.0 Below low normal [facility] ( [facility]) [place] # 0.7 10 0.0-0.8 Normal (applies to non-numeric resul ts) [facility] ([facility]) Eos # 0.0 10 0.0-0.5 Normal (applies to non-numeric resul ts) [facility] ([facility]) Baso # 0.0 10 0.0-0.2 Normal (applies to non-numeric resul ts) [facility] ([facility]) ID Date Data Source [id number] 02/27/2021 09:45:00 AM EDT [facility] ([facility]) Name Value Range Interpretation Code Description Data Radhika rce(s) Supporting Document(s) Ferritin [Mass/volume] in Serum or Plasma 1039 ng/mL 8-252 Above high normal [facility] ([facility]) ID Date Data Source [id number] 02/27/2021 09:45:00 AM EDT [facility] ([facility]) Name Value Range Interpretation Code Description Data Radhika rce(s) Supporting Document(s) Iron (Fe) 79 ug/dL 50-170 Normal (applies to non-numeric resul ts) [facility]) Total Iron Binding Capacity 384 ug/dL 250-450 Norm al (applies to non-numeric results) [facility]) Percent Saturation 20.6 % 13.2-45.0 Normal (applies to non-numer ic results) [facility] ID Date Data Source [id number] 02/27/2021 09:45:00 AM EDT [facility] Name Value Range Interpretation Code Description Data Radhika rce(s) Supporting Document(s) Creatinine For GFR 0.76 mg/dL 0.55-1.30 Normal (applies to non -numeric results) [facility]) Glomerular Filtration Rate Laboratory test result Normal (applies to non- numeric results) [facility]) <content>Units are mL/min/1.73 m2</content>
<content></content>
<content>Chronic Kidney Disease Staging per NKF:</content>
<content></content>
<content>Stage I & II GFR >=60 Normal to Mildly Decreased</content>
<content>Stage III GFR 30- 59 Moderately Decreased</content>
<content>Stage IV GFR 15-29 Severely Decreased</content>
<content>Stage V GFR <15 Very Little GFR Left</content>
<content>ESRD GFR <15 on EDGE BLACKER</content>
<content></content> ID Date Data Source [id number] 02/27/2021 09:45:00 AM EDT [facility] ([facility]) Name Value Range Interpretation Code Description Data Radhika rce(s) Supporting Document(s) Urea nitrogen [Mass/volume] in Serum or Plasma 26 mg/dL 7-18 Above high normal [facility] ([facility]) ID Date Data Source [id number] 02/10/2021 08:41:00 AM EDT [facility] ([facility] Name Value Range Interpretation Code Description Data Radhika rce(s) Supporting Document(s) AB Screen (Indirect Farooq)Vis Laboratory test result [facility] ([facility] Blood Type Laboratory test result [facility] ([facility] ID Date Data Source [id number] 02/10/2021 08:41:00 AM EDT [facility] ([facility] Name Value Range Interpretation Code Description Data Radhika rce(s) Supporting Document(s) Packed Cells Laboratory test result [facility] ([facility] TRANSFUSED PRODUCT: PACKED CELLS COUNT: 2 ID Date Data Source [id number] 02/09/2021 10:34:00 AM EDT [facility] ([facility] Name Value Range Interpretation Code Description [facility] White Blood Count 3.9 10 4.0-10.0 [facility] ([facility]y [facility] Hemoglobin 7.2 g/dL 12.0-15.5 [facility] ([facility] Red Blood Count 2.44 10 4.00-5.40 [facility] ([facility] Mean Corpuscular Volume 100.8 fl 80.0-96.0 M [facility] ([facility] Hematocrit 24.6 % 36.0-47.0 [facility] ([facility] Mean Corpuscular HGB Conc 29.3 g/dL 32.0-36.5 [facility] ([facility] Mean Corpuscular Hemoglobin 29.5 pg 27.0-33.0 [facility] ([facility] Red Cell Distribution Width 18.6 % 11.5-14.5 [facility] ([facility] Platelet Count, Automated 283 10 150-450 [facility] ([facility] Neutrophils % 80.8 % 36.0-66.0 [facility] ([facility] Lymph % 7.2 % 24.0-44.0 [facility] ([facility] [place] % 10.0 % 2.0-8.0 [facility] (Anitha summers [...] 0-0 [facility] ([facility] [place] # 0.4 10 0.0-0.8 [facility] ([facility] Lymph # 0.3 10 1.5-5.0 [facility] ([facility] Baso # 0.0 10 0.0-0.2 [facility] ([facility] Eos # 0.0 10 0.0-0.5 [facility] ([facility] ID Date Data Source [id number] 01/27/2021 01:12:00 PM EDT [facility] ([facility] Name Value Range Interpretation Code Description Data Radhika rce(s) Supporting Document(s) Iron (Fe) 59 ug/dL 50-170 [facility] ([facility] Total Iron Binding Capacity 397 ug/dL 250-450 [facility] ([facility] Percent Saturation 14.9 % 13.2-45.0 [facility] ([facility]one [facility] ID Date Data Source [id number] 01/27/2021 01:12:00 PM EDT [facility] ([facility] Name Value Range Interpretation Code Description Data Radhika e(s) Supporting Document(s) White Blood Count 4.2 10 [...] % 11.5-14.5 [facility] ([facility] Lymph % 13.6 % 24.0-44.0 [facility] ([facility] Neutrophils % 69.4 % 36.0-66.0 [facility] ([facility] Eos % 1.4 % 0.0-3.0 [facility] ([facility] [place] % 14.6 % 2.0-8.0 [facility] ([facility] Immature Granulocyte % 0.5 % 0-3.0 [facility] ([facility] Baso % 0.5 % 0.0-1.0 [facility] ([facility] Nucleated Red Blood Cell % 0.0 % 0-0 [facility] ([facility] Neutrophils # 2.9 10 1.5-8.5 [facility] ([facility] [place] # 0.6 10 0.0-0.8 [facility] ([facility] Lymph # 0.6 10 1.5-5.0 [facility] ([facility] Baso # 0.0 10 0.0-0.2 [facility] ([facility] Eos # 0.1 10 0.0-0.5 [facility] ([facility] ID Date Data Source [id number] 01/27/2021 01:12:00 PM EDT [facility] (Anitha Gamez [...] Little GFR Left</content>
<content>ESRD GFR <15 on EDGE BLACKER</content>
<content></content> Creatinine For GFR 0.71 mg/dL 0.55-1.30 [facility] ([facility] Sodium Level 141 meq/L 136-145 [facility] ([facility] Potassium Serum 4.3 meq/L 3.5-5.1 [facility] ([facility] Carbon Dioxide Level 28 meq/L 21-32 [facility] ([facility] Chloride Level 109 meq/L 98-107 [facility] ([facility] Anion Gap 4 meq/L 8-16 [facility] ([facility] Calcium Level 9.4 mg/dL 8.8-10.2 [facility] ([facility] Ast/Sgot 8 U/L 7-37 [facility] ([facility] Alt/SGPT 14 U/L 12-78 [facility] ([facility] Bilirubin,Total 0.8 mg/dL 0.2-1.0 [facility] ([facility] Alkaline Phosphatase 86 U/L 45-117 [facility] ([facility] Albumin 3.2 GM/DL 3.2-5.2 [facility] ([facility] Total Protein 6.2 GM/DL 6.4-8.2 [facility] ([facility] Albumin/Globulin Ratio 1.1 1.2-2.2 [facility] ([facility] ID Date Data Source [id number] 01/27/2021 01:12:00 PM EDT [facility] ([facility] Name Value Range Interpretation Code Description Data Radhika rce(s) Supporting Document(s) Ferritin [Mass/volume] in Serum or Plasma 39 ng/mL 8-252 [facility] ([facility] Carcinoembryonic Ag [Mass/volume] in Serum or Plasma 0.5 ng/mL [facility] ([facility] THE CEA ASSAY IS PERFORMED ON THE [employer] BY CHEMILUMINESCENCE AND SHOULD NOT BE COMPARED INTERCHANGEABLY WITH OTHER METHODS. IT SHOULD NOT BE USED ALONE A SCREENING TEST OR DIAGNOSIS FOR THE PRESENCE OR ABSENCE OF MALIGNANT DISEASE. PREDICTIONS OF DISEASE RECURRENCE SHOULD NOT BE BASED SOLELY ON VALUES OBTAINED FROM SERIAL PATIENT SERUM VALUES. ID Date Data Source [id number] 01/20/2021 11:42:00 AM EDT [facility] ([facility] Name Value Range Interpretation Code Description Data [facility](s) Supporting Document(s) Blood Type Laboratory test result [facility] ([facility] AB Screen (Indirect Farooq)Vis Laboratory test result [facility] ([facility] ID Date Data Source [id number] 01/20/2021 11:42:00 AM EDT [facility] ([facility] Name Value Range Interpretation Code Description Data [facility](s) Supporting Document(s) Creatinine For GFR 0.69 mg/dL [...] Little GFR Left</content>
<content>ESRD GFR <15 on EDGE BLACKER</content>
<content></content> ID Date Data Source [id number] 01/20/2021 11:42:00 AM EDT [facility] ([facility] Name Value Range Interpretation Code Description Data Radhika rce(s) Supporting Document(s) Urea nitrogen [Mass/volume] in Serum or Plasma 21 mg/dL 7-18 [facility] ([facility] ID Date Data Source [id number] 01/20/2021 11:42:00 AM EDT [facility] ([facility] Name Value Range Interpretation Code Description Data Radhika rce(s) Supporting Document(s) White Blood Count 3.3 10 4.0-10.0 [facility] ([facility] Hemoglobin 5.8 g/dL 12.0-15.5 Below lower panic limits [facility] ([facility] Red Blood Count 1.89 10 4.00-5.40 [facility] ([facility] Mean Corpuscular Hemoglobin 30.7 pg 27.0-33.0 [facility] ([facility] Hematocrit 19.4 % 36.0-47.0 [facility] ([facility] Mean Corpuscular Volume 102.6 fl [...] [facility] ID Date Data Source [id number] 01/16/2021 09:50:00 AM EDT [facility] ([facility] Name Value Range Interpretation Code Description Data Radhika rce(s) Supporting Document(s) Coronavirus 2019 Nasopharygeal Laboratory test result [facility] ([facility] ASSAY INFORMATION: Real Time RT-PCR NOTE: The COVID-19 assay has been cleared by the U.S. Food and Drug Administration under the Emergency Use Authorization (EUA). [employer] and [employer] are designated as high complexity laboratories by the Clinical Laboratory Improvement Amendments of 1988(CLIA) and are qualified to perform this test. Not Detected ID Date Data Source [id number] 01/03/2021 03:13:00 PM EDT [facility] ([facility] Name Value Range Interpretation Code Description Data Radhika rce(s) Supporting Document(s) Packed Cells Laboratory test result [facility] ([facility] TRANSFUSED PRODUCT: PACKED CELLS COUNT: 1 ID Date Data Source [id number] 01/03/2021 03:13:00 PM EDT [facility] ([facility] Name Value Range Interpretation Code Description Data Radhika rce(s) Supporting Document(s) Blood Type Laboratory test result [facility] ([facility] AB Screen (Indirect Farooq)Vis Laboratory test result [facility] ([facility] ID Date Data Source [id number] 01/02/2021 03:58:00 PM EDT [facility] ([facility] Name Value Range Interpretation Code Description Data [facility](s) Supporting Document(s) White Blood Count 4.3 10 4.0-10.0 [facility] ([facility] Hemoglobin 8.1 g/dL 12.0-15.5 [facility] ([facility] Red Blood Count 2.48 10 4.00-5.40 [facility] ([facility] Hematocrit 25.8 % 36.0-47.0 [...] [facility] ([facility] Lymph % 10.7 % 24.0-44.0 [facility] ([facility] Eos % 0.7 % 0.0-3.0 [facility] ([facility] [place] % 13.1 % 2.0-8.0 [facility] ([facility] Immature Granulocyte % 0.5 % 0-3.0 [facility] ([facility] Baso % 0.5 % 0.0-1.0 [facility] ([facility] Neutrophils # 3.2 10 1.5-8.5 [facility] ([facility] Nucleated Red Blood Cell % 0.0 % 0-0 [facility] ([facility] Lymph # 0.5 10 1.5-5.0 [facility] ([facility] [place] # 0.6 10 0.0-0.8 [facility] ([facility] Baso # 0.0 10 0.0-0.2 [facility] ([facility] Eos # 0.0 10 0.0-0.5 [facility] ([facility] ID Date Data Source [id number] 01/02/2021 03:58:00 PM EDT [facility] ([facility] Name Value Range Interpretation Code Description Data Radhika rce(s) Supporting Document(s) Iron (Fe) 55 ug/dL 50-170 [facility] ([facility] Total Iron Binding Capacity 398 ug/dL 250-450 [facility] ([facility] Percent Saturation 13.8 % 13.2-45.0 [facility] ([facility] ID Date Data Source [id number] 01/02/2021 03:58:00 PM EDT [facility] ([facility]itha Gamez [...] [facility] ID Date Data Source [id number] 01/02/2021 03:58:00 PM EDT [facility] ([facility] Name Value Range Interpretation Code Description Data Radhika rce(s) Supporting Document(s) Glucose, Fasting 155 mg/dL 70-100 [facility] ([facility] Creatinine For GFR 0.85 mg/dL 0.55-1.30 [facility] ([facility] Blood Urea Nitrogen 24 mg/dL 7-18 [facility] ([facility] Sodium Level 137 meq/L [...] Little GFR Left</content>
<content>ESRD GFR <15 on EDGE BLACKER</content>
<content></content> Chloride Level 105 meq/L 98-107 [facility] [...] [facility] ID Date Data Source [id number] 12/23/2020 02:21:00 PM EDT [facility] ([facility] Name Value Range Interpretation Code Description Data Radhika rce(s) Supporting Document(s) Troponin I.cardiac [Mass/volume] in Serum or Plasma 0.01 ng/mL 0.00-0 .08 [facility] ([facility] ID Date Data Source [id number] 12/23/2020 02:19:00 PM EDT [facility] (Anitha Gamez [...] [facility] ID Date Data Source [id number] 12/23/2020 02:03:00 PM EDT [facility] ([facility] Name Value Range Interpretation Code Description Data Radhika rce(s) Supporting Document(s) Lipoprotein lipase [Enzymatic activity/volume] in Serum or Plasm a 73 U/L 73-393 [facility] ([facility] Lactate [Mass/volume] in Serum or Plasma 0.8 mmol/L 0.4-2.0 [facility] ([facility] Y/N query for Sepsis Lactate Rule: Y ID Date Data Source [id number] 12/23/2020 02:03:00 PM EDT [facility] ([facility] Name Value Range Interpretation Code Description Data Radhika e(s) Supporting Document(s) Alt/SGPT 14 U/L 12-78 [facility] ([facility] Ast/Sgot 13 U/L 7-37 [facility] ([facility] Alkaline Phosphatase 95 U/L 45-117 [facility] ([facility]ivas [facility] Bilirubin,Total 0.9 mg/dL 0.2-1.0 [facility] ([facility] Bilirubin,Direct 0.3 mg/dL 0.0-0.2 [facility] ([facility] Total Protein 6.5 GM/DL 6.4-8.2 [facility] ([facility] Albumin 3.4 GM/DL 3.2-5.2 [facility] ([facility] Albumin/Globulin Ratio 1.1 1.2-2.2 [facility] ([facility] ID Date Data Source [id number] 12/23/2020 02:03:00 PM EDT [facility] ([facility] Name Value Range Interpretation Code Description Data [facility](s) Supporting Document(s) Prothrombin Time 13.3 s 12.5-14.3 [...] [facility] ID Date Data Source [id number] 12/23/2020 02:03:00 PM EDT [facility] ([facility] Name Value Range Interpretation Code Description Data Radhika rce(s) Supporting Document(s) White Blood Count 4.5 10 4.0-10.0 [facility] ([facility]y [facility] Red Blood Count 3.26 10 4.00-5.40 [facility] ([facility] Hemoglobin 10.2 g/dL 12.0-15.5 [facility] ([facility] Hematocrit 32.3 % 36.0-47.0 [facility] ([facility] Mean Corpuscular Volume 99.1 fl [...] % 24.0-44.0 [facility] ([facility] [place] % 11.9 % 2.0-8.0 [facility] (Anitha summers [...] 10 0.0-0.5 [facility] ([facility] [place] # 0.5 10 0.0-0.8 [facility] ([facility] Baso # 0.0 10 0.0-0.2 [facility] ([facility] ID Date Data Source [id number] 12/19/2020 02:59:00 PM EDT [facility] ([facility] Name Value Range Interpretation Code Description Data Radhika rce(s) Supporting Document(s) White Blood Count 3.8 10 4.0-10.0 [facility] ([facility] Red Blood Count 3.30 10 4.00-5.40 [facility] ([facility] Hemoglobin 10.1 g/dL 12.0-15.5 [facility] ([facility] Hematocrit 32.9 % 36.0-47.0 [facility] [...] % 11.5-14.5 [facility] ([facility] Lymph % 11.7 % 24.0-44.0 [facility] ([facility] Neutrophils % 74.5 % 36.0-66.0 [facility] ([facility] Eos % 1.1 % 0.0-3.0 [facility] ([facility] [place] % 11.9 % 2.0-8.0 [facility] ([facility] Baso % 0.3 % 0.0-1.0 [facility] ([facility] Immature Granulocyte % 0.5 % 0-3.0 [facility] ([facility] Nucleated Red Blood Cell % 0.0 % 0-0 [facility] ([facility]itha [facility] M.D., P.C.) Neutrophils # 2.8 10 1.5-8.5 [facility] (Anitha Gamez M[facility] Lymph # 0.4 10 1.5-5.0 [facility] (Anitha summers M[facility] [place] # 0.5 10 0.0-0.8 [facility] (Anitha summers [facility] Baso # 0.0 10 0.0-0.2 [facility] (Anitha summers [facility] Eos # 0.0 10 0.0-0.5 [facility] (Anitha summers [facility] ID Date Data Source [id number] 12/06/2020 10:00:32 AM EDT [facility] [place] INFORMATIONPatient MRN Name Date of Age Gend*PT [id number] Meron Rico 1940 80 years F ---PT Location Admission Date/Time Visit ID Attending Provider --- --- --- --- EPI ID CSN Admitting Provider [id number] ---Addended by: GEORGINA JENKINS on: 12/06/2020 10:00 AM Modules accepted: Orders Name Value Range Interpretation Code Description Data Radhika rce(s) Supporting Document(s) ID Date Data Source [id number] 12/05/2020 04:32:00 PM EDT [facility] (Anitha Gamez [facility] Name Value Range Interpretation Code Description Data Radhika rce(s) Supporting Document(s) Ferritin [Mass/volume] in Serum or Plasma 108 ng/mL 8-252 [facility] (Anitha Gamez [facility] ID Date Data Source [id number] 12/05/2020 04:32:00 PM EDT [facility] (Anitha Gamez [facility] Name Value Range Interpretation Code Description Data Radhika rce(s) Supporting Document(s) Iron (Fe) 94 ug/dL 50-170 [facility] (Anitha summers [facility] Total Iron Binding Capacity 350 ug/dL 250-450 [facility] (Anitha Gamez [facility] Percent Saturation 26.9 % 13.2-45.0 [facility] (Tyrone Gamez M[facility] ID Date Data Source [id number] 12/05/2020 04:32:00 PM EDT [facility] (Anitha Gamez [...] Gamez M.D[facility] ID Date Data Source [id number] 12/05/2020 04:32:00 PM EDT [facility] (Anitha Gamez [facility] Name Value Range Interpretation Code Description Data Radhika rce(s) Supporting Document(s) White Blood Count 3.4 10 4.0-10.0 [facility] (Chery Gamez M[facility] Red Blood Count 3.86 10 4.00-5.40 [facility] (Anitha Gamez [facility] Hemoglobin 11.9 g/dL 12.0-15.5 [facility] (Anitha orellana M.D[facility] Hematocrit 38.4 % 36.0-47.0 [facility] [...] % 11.5-14.5 [facility] (Anitha Gamez [facility] Lymph % 12.8 % 24.0-44.0 [facility] (Anitha summers M.D[facility] Neutrophils % 71.4 % 36.0-66.0 [facility] (Anitha Gamez M[facility] [place] % 13.7 % 2.0-8.0 [facility] (Anitha summers [...] 10 1.5-8.5 [facility] (Anitha Gamez [facility] [place] # 0.5 10 0.0-0.8 [facility] (Anitha summers M.D[facility] Eos # 0.0 10 0.0-0.5 [facility] (Anitha summers [facility] Baso # 0.0 10 0.0-0.2 [facility] (Anitha summers M[facility].Alvarez ID Date Data Source [id number] 11/26/2020 03:53:00 AM EDT [facility] FASTING: UNKNOWNReceived: 11/25/2020 at 12:06:00 QPT: [facility], [address], [address] [place], [phone], Levi Garcia MD Received: 11/25/2020 at 12:06:00 QPT : [facility], [address], [address] [place], [address], Levi Garcia MD Received: 11/25/2020 at 12:06:00 QPT : [facility], [address], [address] [place], [address], Levi Garcia MD Received: 11/25/2020 at 12:06:00 QPT : [facility], [address], [address] [place] [address], [phone], Levi Garcia MD Name Value Range Interpretation [...] is approximately 13% higher for peopleidentified as -[place]ir[place]. eGFR NON-AFR. CITIZEN OF [place] 82 mL/min/1.73m2 > OR = 60 Normal [...] normal [facility] ID Date Data Source [id number] 11/26/2020 03:53:00 AM EDT [facility] FASTING: UNKNOWNReceived: 11/25/2020 at 12:06:00 QPT: [facility], [address], [address] [place] [address], [phone], Levi Garcia MD Received: 11/25/2020 at 12:06:00 QPT : [facility], [address], [address] [place] [address], [phone], Levi Garcia MD Received: 11/25/2020 at 12:06:00 QPT : [facility], [address] [place] [address], [phone], Levi Garcia MD Received: 11/25/2020 at 12:06:00 QPT : [facility], [address], [address] [place] [address], [phone], Levi Garcia MD Name Value Range Interpretation [...] in Blood by Automated count 3654 cells/uL [id number] Normal (applies to non-numeric results) [facility] [...] + [facility] ID Date Data Source [id number] 11/26/2020 03:53:00 AM EDT [facility] FASTING: UNKNOWNReceived: 11/25/2020 at 12:06:00 QPT: [facility], [address], [address] [place], [phone], Levi Garcia MD Received: 11/25/2020 at 12:06:00 QPT : [facility], [address], [address] [place], [phone] MD Received: 11/25/2020 at 12:06:00 QPT : [facility], [address], [address] [place], [phone] MD Received: 11/25/2020 at 12:06:00 QPT : [facility], [address], [address] [place] [address], [phone], Levi Garcia MD Name Value Range Interpretation Code Description Data Radhika rce(s) Supporting Document(s) Natriuretic peptide B [Mass/volume] in Serum or Plasma [facility] TEST NOT PERFORMEDNo suitable specimen r eceived. ID Date Data Source [id number] 11/26/2020 03:53:00 AM EDT [facility] FASTING: UNKNOWNReceived: 11/25/2020 at 12:06:00 QPT: [facility], [address], [address] [place], [phone] MD Received: 11/25/2020 at 12:06:00 QPT : [facility], [address], [address] [place] [address], [phone] MD Received: 11/25/2020 at 12:06:00 QPT : [facility], [address], [address] [place], [phone] MD Received: 11/25/2020 at 12:06:00 QPT : [facility] [place], [address], [address] [facility], [place], [phone], Levi Garcia MD Name Value Range Interpretation Code Description Data Radhika rce(s) Supporting Document(s) Digoxin [Mass/volume] in Serum or Plasma 1.1 mcg/L 0.8-2.0 Normal (applies to non-numeric results) [facility] [place] Anti-Digoxin (Digibind(R)) in serum/ plasma ofpatients under toxicity therapy may interferewith the digoxin immunoassay.NO COLLECTION DATE RECEIVED. WE HAVE USEDTHE DATE THE SPECIMEN [facility] THE COLLECTION DATE. IF THISIS INCORRECT, PLEASE CONTACT CLIENT SERVICES.PHONE NUMBER: [phone] ID Date Data Source [id number] 11/25/2020 04:33:00 PM EDT [facility] (Anitha Gamez [...] Gamez M.D., P.C.) ID Date Data Source [id number] 11/25/2020 04:33:00 PM EDT [facility] Name Value Range Interpretation Code Description Data Radhika rce(s) Supporting Document(s) SARS-CoV-2 (COVID 19) NEGATIVE - SARS-CoV-2 (COVID19) [facility] This lab was ordered by [facility] a nd reported by [facility]. ID Date Data Source [id number] 11/25/2020 04:30:00 PM EDT [facility] (Anitha Gamez [facility] Name Value Range Interpretation Code Description Data Radhika rce(s) Supporting Document(s) Blood Type Laboratory test result [facility] (Anitha Gamez M[facility] AB Screen (Indirect Farooq)Vis Laboratory test result [facility] (Anitha Gamez M[facility] ID Date Data Source [id number] 11/25/2020 04:30:00 PM EDT [facility] (Anitha Gamez [facility] Name Value Range Interpretation Code Description Data Radhika rce(s) Supporting Document(s) Natriuretic peptide.B prohormone N-Terminal [Mass/volu me] in Serum or Plasma 1795 pg/mL [facility] (Chayo Gamboa, P.C.) ID Date Data Source [id number] 11/25/2020 04:30:00 PM EDT [facility] (Anitha Gamez M[facility] Name Value Range Interpretation Code Description Data Radhika e(s) Supporting Document(s) CPK Creatine Phosphokinase 60 U/L 26-192 [facility] (nAitha Gamez M.D[facility] CK-MB Value Mass 1.3 [...] <content>Troponin I Reference Interval f or Siemens [place] LOCI:</content>
<content></content>
<content>99th Percentile= 0.00-0.045 ng/ml</content>
<content></content>
<content>Risk Stratification:</content>
<content><= 0.10 ng/ml Decreased Risk for Adverse Clinical</content>
<content>Events.</content>
<content>0.10-1.50 ng/ml Increased Risk for Adverse Clinical</content>
<content>Events. Evaluation of additional</content>
<content>criterion and/or repeat testing in 2-6</content>
<content>hours is suggested to rule out myocardial</content>
<content>damage.</content>
<content>>= 1.50 ng/ml Indicative of Myocardial Injury.</content>
<content></content> ID Date Data Source [id number] 11/25/2020 04:30:00 PM EDT [facility] (Anitha Gamez [facility] Name Value Range Interpretation Code Description Data Radhika rce(s) Supporting Document(s) Glucose, Fasting 110 mg/dL 70-100 [facility] (Anitha Gamez [facility] Blood Urea Nitrogen 22 mg/dL 7-18 [facility] [...] Little GFR Left</content>
<content>ESRD GFR <15 on EDGE BLACKER</content>
<content></content> Sodium Level 140 meq/L 136-145 [facility] (Anitha [...] 12-78 [facility] (Anitha summers M[facility] Bilirubin,Total 0.6 mg/dL 0.2-1.0 [facility] (Anitha Gamez M[facility] Albumin 3.0 GM/DL 3.2-5.2 [facility] (Anitha summers M[facility] Total Protein 6.0 GM/DL 6.4-8.2 [facility] (Anitha Gamez [facility] Albumin/Globulin Ratio 1.0 1.2-2.2 [facility] (Anitha Gamez [facility] ID Date Data Source [id number] 11/25/2020 04:30:00 PM EDT [facility] (Aintha Gamez M.D[facility] Name Value Range Interpretation Code Description Data Radhika rce(s) Supporting Document(s) White Blood Count 4.4 10 4.0-10.0 [facility] (Chery Gamez M.D[facility] Hemoglobin 5.6 g/dL 12.0-15.5 Below lower panic limits [facility] (Anitha Gamez M[facility] Red Blood Count 1.75 10 4.00-5.40 [facility] (Anitha Gamez M[facility] Mean Corpuscular Volume 108.6 fl 80.0-96.0 M [facility] (Anihta Gamez M.D[facility] Hematocrit 19.0 % 36.0-47.0 [...] Gamez M.D., [facility].) ID Date Data Source [id number] 11/25/2020 08:56:46 PM EDT [facility] [place] [facility] Name Value Range Interpretation Code Description Data Radhika rce(s) Supporting Document(s) DIGOXIN 1.2 ng/mL (0.8-2.0) [facility] [place] [facility] [place] ID Date Data Source [id number] 11/07/2020 02:18:00 PM EDT [facility] (Anitha Gamez [facility] Name Value Range Interpretation Code Description Data Radhika rce(s) Supporting Document(s) Ferritin [Mass/volume] in Serum or Plasma 207 ng/mL 8-252 [facility] (Anitha Gamez [facility] ID Date Data Source [id number] 11/07/2020 02:18:00 PM EDT [facility] (Anitha Gamez [facility] Name Value Range Interpretation Code Description Data Radhika rce(s) Supporting Document(s) Iron (Fe) 43 ug/dL 50-170 [facility] (Anitha summers M.D[facility] Total Iron Binding Capacity 302 ug/dL 250-450 [facility] (Anitha Gamez [facility] Percent Saturation 14.2 % 13.2-45.0 [facility] (Tyrone Gamez M.D[facility] ID Date Data Source [id number] 11/07/2020 02:18:00 PM EDT [facility] (Anitha Gamez [...] Little GFR Left</content>
<content>ESRD GFR <15 on EDGE BLACKER</content>
<content></content> Creatinine For GFR 0.72 mg/dL 0.55-1.30 [...] summers M.D[facility] ID Date Data Source [id number] 11/07/2020 02:18:00 PM EDT [facility] (Anitha Gamez M[facility] Name Value Range Interpretation Code Description Data [facility](s) Supporting Document(s) White Blood Count 3.2 10 [...] % 24.0-44.0 [facility] (Anitha summers M.D[facility] [place] % 13.3 % 2.0-8.0 [facility] (Anitha summers [...] 10 0.0-0.5 [facility] (Anitha summers M.D[facility] [place] # 0.4 10 0.0-0.8 [facility] (Anitha summers M.D[facility] Lymph # 0.3 10 1.5-5.0 [facility] (Anitha summers M.D[facility] Baso # 0.0 10 0.0-0.2 [facility] (Anitha summers M.D[facility] ID Date Data Source [id number] 10/21/2020 02:17:00 PM EDT [facility] (Anitha Gamez [...] % 24.0-44.0 [facility] (Anitha summers M.D[facility] [place] % 13.0 % 2.0-8.0 [facility] (Anitha summers [...] 10 1.5-5.0 [facility] (Anitha summers M.D[facility] [place] # 0.4 10 0.0-0.8 [facility] (Anitha summers M.D[facility] Baso # 0.0 10 0.0-0.2 [facility] (Anitha summers M.D[facility] ID Date Data Source [id number] 10/19/2020 10:05:00 AM EDT [facility] Name Value Range Interpretation Code Description Data Radhika rce(s) Supporting Document(s) SARS-CoV-2 (COVID-19) RNA [Presence] in Respiratory specimen by KELLI with probe detection Not Detected [facility] This lab was ordered by [facility] and reported by [facility]. ID Date Data Source [id number] 10/11/2020 02:25:00 PM EDT [facility] (Anitha Gamez [...] % 36.0-66.0 [facility] (Anitha Gamez [facility] [place] % 14.5 % 2.0-8.0 [facility] (Anitha summers [...] 0-0 [facility] (Anitha Gamez M.D[facility].) [place] # 0.5 10 0.0-0.8 [facility] (Anitha summers M.D[facility] Baso # 0.0 10 0.0-0.2 [facility] (Anitha summers M.D[facility] Eos # 0.1 10 0.0-0.5 [facility] (Anitha summers M.D[facility] ID Date Data Source [id number] 09/26/2020 02:59:00 PM EDT [facility] (Anitha Gamez [facility] Name Value Range Interpretation Code Description Data Radhika rce(s) Supporting Document(s) Carcinoembryonic Ag [Mass/volume] in Serum or Plasma 0.6 ng/mL [facility] (Anitha Gamez [facility] THE CEA ASSAY IS PERFORMED ON THE [employer] BY CHEMILUMINESCENCE AND SHOULD NOT BE COMPARED [...] Gamez M.D., [facility].) ID Date Data Source [id number] 09/26/2020 02:59:00 PM EDT [facility] (Anitha Gamez [facility] Name Value Range Interpretation Code Description Data Radhika rce(s) Supporting Document(s) Iron (Fe) 56 ug/dL 50-170 [facility] (Anitha summers [facility] Total Iron Binding Capacity 327 ug/dL 250-450 [facility] (Anitha Gamez [facility] Percent Saturation 17.1 % 13.2-45.0 [facility] (Tyrone Gamez M[facility] ID Date Data Source [id number] 09/26/2020 02:59:00 PM EDT [facility] (Anitha Gamez [...] Little GFR Left</content>
<content>ESRD GFR <15 on EDGE BLACKER</content>
<content></content> Potassium Serum 4.2 meq/L 3.5-5.1 [facility] [...] Gamez M.D[facility] ID Date Data Source [id number] 09/26/2020 02:59:00 PM EDT [facility] (Anitha Gamez [...] % 24.0-44.0 [facility] (Anitha summers [facility] [place] % 12.8 % 2.0-8.0 [facility] (Anitha summers [...] 10 0.0-0.5 [facility] (Anitha summers M.D[facility] [place] # 0.4 10 0.0-0.8 [facility] (Anitha summers M[facility] Baso # 0.0 10 0.0-0.2 [facility] (Anitha summers [facility] ID Date Data Source [id number] 09/06/2020 12:06:00 PM EST [facility] Name Value Range Interpretation Code Description Data Radhika rce(s) Supporting Document(s) SARS coronavirus 2 RNA [Presence] in Res piratory specimen by KELLI with probe detection NEGATIVE [facility] This lab was ordered by [facility] a nd reported by [facility]. ID Date Data Source [id number] 08/17/2020 11:54:00 AM EST [facility] (Anitha Gamez [facility] Name Value Range Interpretation Code Description Data Radhika rce(s) Supporting Document(s) Occult Blood Laboratory test result Abnormal (applies to non-numeric results) [facility] (Anitha Gamez [facility] OCCULT BLOOD 1 POSITIVE ID Date Data Source [id number] 08/17/2020 11:07:00 AM EST [facility] (Anitha Gamez [facility] Name Value Range Interpretation Code Description Data Radhika rce(s) Supporting Document(s) Ferritin [Mass/volume] in Serum or Plasma 36 ng/mL 8-252 [facility] (Anitha Gamez [facility] Carcinoembryonic Ag [Mass/volume] in Serum or Plasma Laboratory melly t result [facility] (Anitha Gamez [facility] THE CEA ASSAY IS PERFORMED ON THE [employer] BY CHEMILUMINESCENCE AND SHOULD NOT BE COMPARED INTERCHANGEABLY WITH OTHER METHODS. IT SHOULD NOT BE USED ALONE A SCREENING TEST OR DIAGNOSIS FOR THE PRESENCE OR ABSENCE OF MALIGNANT DISEASE. PREDICTIONS OF DISEASE RECURRENCE SHOULD NOT BE BASED SOLELY ON VALUES OBTAINED FROM SERIAL PATIENT SERUM VALUES. ID Date Data Source [id number] 08/17/2020 11:07:00 AM EST [facility] (Anitha Gamez [facility] Name Value Range Interpretation Code Description Data Radhika rce(s) Supporting Document(s) Iron (Fe) 29 ug/dL 50-170 [facility] (Anitha summers [facility] Total Iron Binding Capacity 360 ug/dL 250-450 [facility] (Anitha Gamez [facility] Percent Saturation 8.1 % 13.2-45.0 [facility] (Tyrone Gamez [facility] ID Date Data Source [id number] 08/17/2020 11:07:00 AM EST [facility] (Anitha Gamez [...] Little GFR Left</content>
<content>ESRD GFR <15 on EDGE BLACKER</content>
<content></content> Potassium Serum 4.2 meq/L 3.5-5.1 [facility] [...] summers M.D[facility] ID Date Data Source [id number] 08/17/2020 11:07:00 AM EST [facility] (Anitha [facility]z [facility] Name Value Range Interpretation Code Description Data Radhika rce(s) Supporting Document(s) White Blood Count 3.8 10 4.0-10.0 [facility] (Chery Gamez [facility] Hemoglobin 8.5 g/dL 12.0-15.5 [facility] (Anitha orellana M[facility] Red Blood Count 3.03 10 4.00-5.40 [facility] (Anitha Gamez [facility] Mean Corpuscular Volume 93.4 fl 80.0-96.0 M [facility] (Anitha Gamez [facility] Hematocrit 28.3 % 36.0-47.0 [facility] (Anitha orellana M[facility] Mean Corpuscular Hemoglobin 28.1 pg 27.0-33.0 [facility] (nAitha Gamez M.D[facility] Mean Corpuscular HGB Conc 30.0 g/dL 32.0-36.5 [facility] (Anitha Gamez [facility] Red Cell Distribution Width 16.0 % 11.5-14.5 [facility] (Anitha Gamez [facility] Neutrophils % 77.0 % 36.0-66.0 [facility] (Anitha Gamez [facility] Platelet Count, Automated 361 10 150-450 [facility] (Anitha Gamez [facility] Lymph % 9.5 % 24.0-44.0 [facility] (Anitha summers [facility] [place] % 11.4 % 0.0-5.0 [facility] (Anitha summers [...] 10 1.5-5.0 [facility] (Anitha summers [facility] [place] # 0.4 10 0.0-0.8 [facility] (Anitha summers [facility] Eos # 0.1 10 0.0-0.5 [facility] (Anitha summers [facility] Baso # 0.0 10 0.0-0.2 [facility] (Anitha summers [facility] ID Date Data Source [id number] 06/22/2020 01:19:00 PM EST [facility] ([facility]itha [facility] Name Value Range Interpretation Code Description Data Radhika rce(s) Supporting Document(s) Ferritin [Mass/volume] in Serum or Plasma 104 ng/mL 8-252 [facility] (Anitha [facility] Carcinoembryonic Ag [Mass/volume] in Serum or Plasma 0.6 ng/mL [facility] (Anitha [facility] THE CEA ASSAY IS PERFORMED ON THE [employer] BY CHEMILUMINESCENCE AND SHOULD NOT BE COMPARED INTERCHANGEABLY WITH OTHER METHODS. IT SHOULD NOT BE USED ALONE A SCREENING TEST OR DIAGNOSIS FOR THE PRESENCE OR ABSENCE OF MALIGNANT DISEASE. PREDICTIONS OF DISEASE RECURRENCE SHOULD NOT BE BASED SOLELY ON VALUES OBTAINED FROM SERIAL PATIENT SERUM VALUES. ID Date Data Source [id number] 06/22/2020 01:19:00 PM EST [facility] ([facility]itha [facility] Name Value Range Interpretation Code Description Data Radhika rce(s) Supporting Document(s) Iron (Fe) 39 ug/dL 50-170 [facility] (Anitha summers [facility] Percent Saturation 11.8 % 13.2-45.0 [facility] (Tyrone Gamez [facility] Total Iron Binding Capacity 331 ug/dL 250-450 [facility] (Anitha [facility]z [facility] ID Date Data Source [id number] 06/22/2020 01:19:00 PM EST [facility] ([facility]itha [facility] Name Value Range Interpretation Code Description Data [facility](s) Supporting Document(s) Glucose, Fasting 110 mg/dL 70-100 [...] Little GFR Left</content>
<content>ESRD GFR <15 on EDGE BLACKER</content>
<content></content> Sodium Level 141 meq/L 136-145 [facility] [...] Gamez M[facility] ID Date Data Source [id number] 06/22/2020 01:19:00 PM EST [facility] (Anitha Gamez [...] % 36.0-66.0 [facility] (Anitha [facility]z [facility] [place] % 10.7 % 0.0-5.0 [facility] (Anitha summers [...] 10 1.5-5.0 [facility] (Anitha summers [facility] [place] # 0.6 10 0.0-0.8 [facility] (Anitha summers [facility] Eos # 0.1 10 0.0-0.5 [facility] ([facility]itha [facility] Baso # 0.0 10 0.0-0.2 [facility] ([facility]itha [facility]ers [facility] ID Date Data Source [id number] 06/13/2020 09:16:00 AM EST [facility] (Anitha Gamez [...] to the patient, ID Date Data Source [id number] 06/13/2020 09:16:00 AM EST [facility] (Anitha Gamez [...] the patient, Neutrophils 75 % [facility] ([facility]a A. W illiams[facility] A courtesy copy of this [...] Automated count Laboratory test result [facility] ([facility]rogan [facility] A courtesy copy of this report has been sent to the patient, Morphology [Interpretation] in Blood Narrative Laboratory test result [facility] ([facility] A courtesy copy of this report has been sent to the patient, ID Date Data Source [id number] 06/14/2020 06:06:00 AM EST [facility] Name Value [...] 0.0-0.1 [facility] ID Date Data Source [id number] 06/14/2020 08:07:00 AM EST [facility] Name Value [...] 20-29 [facility] Calcium 9.3 mg/dL 8.7-10.3 [facility] Procedure Social History Code Duration Value Status Description Data Source(s ) Alcohol intake 04/17/2021 12:00:00 AM EDT Lifetime non-drinker (finding) completed Lifetime non-drinker (finding) [facility] Smoking 03/28/2021 12:00:00 AM EDT Never Smoked A Pipe complet ed Never Smoked A Pipe [facility] ([facility] Alcohol intake 02/28/2021 12:00:00 AM EDT Lifetime non-drinker (finding) completed Lifetime non-drinker (finding) [facility] Alcohol intake 01/24/2021 12:00:00 AM EDT Lifetime non-drinker (finding) completed Lifetime non-drinker (finding) [facility] Alcohol intake 12/20/2020 12:00:00 AM EDT Lifetime non-drinker (finding) completed Lifetime non-drinker (finding) [facility] Alcohol intake 12/04/2020 12:00:00 AM EDT Lifetime non-drinker (finding) completed Lifetime non-drinker (finding) [facility] Alcohol intake 06/23/2020 12:00:00 AM EST Lifetime non-drinker (finding) completed Lifetime non-drinker (finding) [facility] Smoking 06/23/2020 12:00:00 AM EST Never smoker completed Never s moker [facility] Vital Signs ID Date Data Source [id number] Name Value Range Interpretation Code Description Data Source(s) Systolic blood pressure 124 mm[Hg] 124 mm[Hg] M [facility] ([facility]) Diastolic blood pressure 79 mm[Hg] 79 mm[Hg] [facility] ([facility]) Body height 61 [in_i] 61 [in_i] [facility] ([facility] 5'1" [place] body weight 105 [lb_av] 105 [lb_av] [facility] T ([facility]) Body weight 55.793 kg 55.793 kg [facility] ([facility]) Body surface area Derived from formula 1.54 m2 1.54 m2 [facility] ([facility]) Body mass index (BMI) [Ratio] 23.2 kg/m2 23.2 k g/m2 [facility] ([facility]) Body weight 123.00 [lb_av] 123.00 [lb_av] [facility] ([facility]) Diastolic blood pressure 81 mm[Hg] 81 mm[Hg] [facility] ([facility]) Systolic blood pressure 132 mm[Hg] 132 mm[Hg] [facility] ([facility]) Heart rate 99 /min 99 /min [facility] ([facility]) Oxygen saturation in Arterial blood by Pulse oximetry 99 % 99 % [facility] ([facility]) Body height 61 [in_i] 61 [in_i] [facility] ([facility]) 5'1" Body weight 57.607 kg 57.607 kg [facility] ([facility]) Body surface area Derived from formula 1.56 m2 1.56 m2 [facility] ([facility]) Body weight 127.00 [lb_av] 127.00 [lb_av] [facility] ([facility]) Body mass index (BMI) [Ratio] 24.0 kg/m2 24.0 k g/m2 [facility] ([facility]) [place] body weight 105 [lb_av] 105 [lb_av] [facility] ([facility]) Systolic blood pressure 108 mm[Hg] 108 mm[Hg] [facility] Diastolic blood pressure 60 mm[Hg] 60 mm[Hg] [facility] Heart rate 113 /min 113 /min [facility] Body height 154.9 cm 154.9 cm [facility] Body weight 54.432 kg 54.432 kg [facility] Body mass index (BMI) [Ratio] 22.67 kg/m2 22.67 kg/m2 [facility] Oxygen saturation in Arterial blood by Pulse oximetry 98 % 98 % [facility] Respiratory rate 18 /min 18 /min [facility] ( [facility] Oxygen saturation in Arterial blood by Pulse oximetry 100 % 100 % [facility] ([facility] Systolic blood pressure 113 mm[Hg] 113 mm[Hg] [place] ([facility] [facility] Diastolic blood pressure 83 mm[Hg] 83 mm[Hg] [facility] ([facility] Heart rate 127 /min 127 /min [facility] ([facility] Body temperature 98.0 [degF] 98.0 [degF] [facility] ([facility] Body height 61.5 [in_i] 61.5 [in_i] [facility] ([facility] 5'1.50" Body weight 114.38 [lb_av] 114.38 [lb_av] [facility] T ([facility] Forest body weight 105 [lb_av] 105 [lb_av] MEDEN [...] [facility] ([facility] Body temperature 98.7 [degF] 98.7 [degF] [facility] ([facility] Body weight 116.38 [lb_av] 116.38 [lb_av] MEDEN T ([facility] Oxygen saturation in Arterial blood by Pulse oximetry 99 % 99 % [facility] ([facility] Heart rate 64 /min 64 /min [facility] ([facility] Body height 61.5 [in_i] 61.5 [in_i] [facility] ([facility] 5'1.50" [place] body weight 105 [lb_av] 105 [lb_av] [facility] T ([facility] Body mass index (BMI) [Ratio] 21.6 kg/m2 21.6 k g/m2 [facility] ([facility] Systolic blood pressure 122 mm[Hg] 122 mm[Hg] [facility] Diastolic blood pressure 74 mm[Hg] 74 mm[Hg] [facility] Heart rate 78 /min 78 /min [facility] Body height 154.9 cm 154.9 cm [facility] Body weight 52.617 kg 52.617 kg [facility] Body mass index (BMI) [Ratio] 21.92 kg/m2 21.92 kg/m2 [facility] Oxygen saturation in Arterial blood by Pulse oximetry 98 % 98 % [facility] Body surface area Derived from formula 1.50 m2 1.50 m2 [facility] ([facility], ) Systolic blood pressure 112 mm[Hg] 112 mm[Hg] M EDENT ([facility]) Diastolic blood pressure 58 mm[Hg] 58 mm[Hg] [facility] ([facility], ) Body height 61 [in_i] 61 [in_i] [facility] ([facility], ) 5'1" Body weight 116.00 [lb_av] 116.00 [lb_av] MEDEN T ([facility]) Body mass index (BMI) [Ratio] 21.9 kg/m2 21.9 k g/m2 [facility] ([facility], ) [place] body weight 105 [lb_av] 105 [lb_av] [facility] T ([facility]) Body weight 52.618 kg 52.618 kg [facility] ([facility]) Body mass index (BMI) [Ratio] 21.92 kg/m2 21.92 kg/m2 [facility] Body weight 52.617 kg 52.617 kg [facility] Systolic blood pressure 108 mm[Hg] 108 mm[Hg] [facility] Diastolic blood pressure 72 mm[Hg] 72 mm[Hg] [facility] Heart rate 77 /min 77 /min [facility] Body height 154.9 cm 154.9 cm [facility] Oxygen saturation in Arterial blood by Pulse oximetry 98 % 98 % [facility] Body height 61.5 [in_i] 61.5 [in_i] [facility] ([facility] 5'1.50" Diastolic blood pressure 75 mm[Hg] 75 mm[Hg] [facility] ([facility] Body temperature 97.5 [degF] 97.5 [degF] [facility] ([facility] Oxygen saturation in Arterial blood by Pulse oximetry 98 % 98 % [facility] ([facility] Heart rate 72 /min 72 /min [facility] ([facility] Respiratory rate 16 /min 16 /min [facility] ( [facility] Body weight 111.12 [lb_av] 111.12 [lb_av] MED[facility] T ([facility] [place] body weight 105 [lb_av] 105 [lb_av] [facility] T ([facility] Systolic blood pressure 129 mm[Hg] 129 mm[Hg] M EDENT ([facility] Body mass index (BMI) [Ratio] 20.7 kg/m2 20.7 k g/m2 [facility] ([facility] Systolic blood pressure 134 mm[Hg] 134 mm[Hg] [facility] Diastolic blood pressure 76 mm[Hg] 76 mm[Hg] [facility] Body weight 50.349 kg 50.349 kg [facility] Body mass index (BMI) [Ratio] 20.97 kg/m2 20.97 kg/m2 [facility] Oxygen saturation in Arterial blood by Pulse oximetry 98 % 98 % [facility] Body height 154.9 cm 154.9 cm [facility] Heart rate 76 /min 76 /min [facility] Respiratory rate 17 /min 17 /min [facility] Body height 61 [in_i] 61 [in_i] [facility] ([facility], ) 5'1" Body weight 106.00 [lb_av] 106.00 [lb_av] MED[facility] T ([facility]) Body mass index (BMI) [Ratio] 20.0 kg/m2 20.0 k g/m2 [facility] ([facility]) [place] body weight 105 [lb_av] 105 [lb_av] MED[facility] T ([facility]) Body weight 48.082 kg 48.082 kg [facility] ([facility]) Body surface area Derived from formula 1.44 m2 1.44 m2 [facility] ([facility]) Diastolic blood pressure 76 mm[Hg] 76 mm[Hg] [facility] ([facility]) [place] body weight 105 [lb_av] 105 [lb_av] [facility] T ([facility]) Body height 61 [in_i] 61 [in_i] [facility] ([facility]) 5'1" Body weight 106.00 [lb_av] 106.00 [lb_av] [facility] T ([facility]) Body mass index (BMI) [Ratio] 20.0 kg/m2 20.0 k g/m2 [facility] ([facility]) Body weight 48.082 kg 48.082 kg [facility] ([facility]) Body surface area Derived from formula 1.44 m2 1.44 m2 [facility] ([facility]) Systolic blood pressure 128 mm[Hg] 128 mm[Hg] M EDENT ([facility], ) Respiratory rate 18 /min 18 /min [facility] ( [facility] Heart rate 68 /min 68 /min [facility] ([facility] Body height 61.5 [in_i] 61.5 [in_i] [facility] ([facility] 5'1.50" Systolic blood pressure 136 mm[Hg] 136 mm[Hg] M [facility] ([facility] Diastolic blood pressure 72 mm[Hg] 72 mm[Hg] [facility] ([facility] Body temperature 97.3 [degF] 97.3 [degF] [facility] ([facility] Body weight 105.38 [lb_av] 105.38 [lb_av] [facility] T ([facility] Oxygen saturation in Arterial blood by Pulse oximetry 99 % 99 % [facility] ([facility] [place] body weight 105 [lb_av] 105 [lb_av] [facility] T ([facility] Body mass index (BMI) [Ratio] 19.6 kg/m2 19.6 k g/m2 [facility] ([facility] Systolic blood pressure 124 mm[Hg] 124 mm[Hg] [facility] Diastolic blood pressure 58 mm[Hg] 58 mm[Hg] [facility] Heart rate 64 /min 64 /min [facility] Body height 154.9 cm 154.9 cm [facility] Body weight 49.442 kg 49.442 kg [facility] Body mass index (BMI) [Ratio] 20.60 kg/m2 20.60 kg/m2 [facility] Oxygen saturation in Arterial blood by Pulse oximetry 99 % 99 % [facility] Body height 61.5 [in_i] 61.5 [in_i] [facility] [...] 98 % [facility] ([facility] [place] body weight 105 [lb_av] 105 [lb_av] MEDEN [...] 98 % [facility] ([facility] [place] body weight 105 [lb_av] 105 [lb_av] MEDEN [...] Diastolic blood pressure 76 mm[Hg] 76 mm[Hg] [facility] Heart rate 86 /min 86 /min [facility] Body height 154.9 cm 154.9 cm [facility] Body weight 46.72 kg 46.72 kg [facility] Body mass index (BMI) [Ratio] 19.46 kg/m2 19.46 kg/m2 [facility] Oxygen saturation in Arterial blood by Pulse oximetry 97 % 97 % [facility] Systolic blood pressure 122 mm[Hg] 122 mm[Hg] [facility] Systolic blood pressure 150 mm[Hg] 150 mm[Hg] [facility] Diastolic blood pressure 90 mm[Hg] 90 mm[Hg] [facility] Heart rate 73 /min 73 /min [facility] Body height 154.9 cm 154.9 cm [facility] Body weight 52.164 kg 52.164 kg [facility] Body mass index (BMI) [Ratio] 21.73 kg/m2 21.73 kg/m2 [facility] Oxygen saturation in Arterial blood by Pulse oximetry 96 % 96 % [facility] Systolic blood pressure 154 mm[Hg] 154 mm[Hg] M EDENT ([facility]) Diastolic blood pressure 78 mm[Hg] 78 mm[Hg] [facility] ([facility]) Body height 61.5 [in_i] 61.5 [in_i] [facility] ([facility]) 5'1.50" Body weight 114.00 [lb_av] 114.00 [lb_av] [facility] T ([facility]) Body mass index (BMI) [Ratio] 21.2 kg/m2 21.2 k g/m2 [facility] ([facility]) [place] body weight 105 [lb_av] 105 [lb_av] [facility] T ([facility]) Body weight 51.710 kg 51.710 kg [facility] ([facility]) Body surface area Derived from formula 1.50 m2 1.50 m2 [facility] ([facility]) [place] body weight 105 [lb_av] 105 [lb_av] [facility] T ([facility] Body mass index (BMI) [Ratio] 20.7 kg/m2 20.7 k g/m2 [facility] ([facility] Systolic blood pressure 166 mm[Hg] 166 mm[Hg] M [facility] ([facility] Diastolic blood pressure 87 mm[Hg] 87 mm[Hg] [facility] ([facility] Body height 61.5 [in_i] 61.5 [in_i] [facility] ([facility] 5'1.50" Body weight 111.38 [lb_av] 111.38 [lb_av] [facility] T ([facility] Oxygen saturation in Arterial blood by Pulse oximetry 100 % 100 % [facility] ([facility] Heart rate 67 /min 67 /min [facility] ([facility] Body temperature 97.0 [degF] 97.0 [degF] [facility] ([facility] Respiratory rate 16 /min 16 /min [facility] ( [facility] Systolic blood pressure 130 mm[Hg] 130 mm[Hg] [facility] Diastolic blood pressure 70 mm[Hg] 70 mm[Hg] [facility] Heart rate 68 /min 68 /min [facility] Body height 154.9 cm 154.9 cm [facility] Body weight 53.524 kg 53.524 kg [facility] Body mass index (BMI) [Ratio] 22.30 kg/m2 22.30 kg/m2 [facility] Oxygen saturation in Arterial blood by Pulse oximetry 98 % 98 % [facility] Body temperature 96.5 [degF] 96.5 [degF] [facility] ([facility] Diastolic blood pressure 78 mm[Hg] 78 mm[Hg] [facility] ([facility] Respiratory rate 12 /min 12 /min [facility] ( [facility] Oxygen saturation in Arterial blood by Pulse oximetry 97 % 97 % [facility] ([facility] [place] body weight 105 [lb_av] 105 [lb_av] MEDEN [...] [lb_av] [facility] T ([facility] Patient Treatment Plan of Care Planned Activity Planned Date Details Description Data Source (s) Sucralfate 100 MG/ML Oral Suspension 04/01/2021 12:00:00 AM EDT [facility] pantoprazole 40 MG Delayed Release Oral Tablet 01/21/2021 12:00:00 AM EDT [facility] potassium chloride SA (K-DUR,KLOR-CON) 20 MEQ tablet 021 12:00:00 AM EDT [facility] Furosemide 20 MG Oral Tablet 12/20/2020 12:00:00 AM EDT [facility] 24 HR Diltiazem Hydrochloride 240 MG Extended Release Oral Capsule 12/20/2020 12:00:00 AM EDT [facility] 24 HR metoprolol succinate 50 MG Extended Release Oral Tablet 12/06/2020 12:00:00 AM EDT [facility] Sucralfate 1000 MG Oral Tablet 12/05/2020 12:00:00 AM EDT [facility] potassium chloride SA (K-DUR,KLOR-CON) 20 MEQ tablet 021 12:00:00 AM EDT [facility] Furosemide 20 MG Oral Tablet 11/23/2020 12:00:00 AM EDT [facility] Digoxin 0.125 MG Oral Tablet 07/29/2020 12:00:00 AM EST [facility] 24 HR Diltiazem Hydrochloride 240 MG Extended Release Oral Capsule 07/05/2020 12:00:00 AM EST [facility] apixaban 2.5 MG Oral Tablet 07/05/2020 12:00:00 AM EST [facility] Furosemide 20 MG Oral Tablet 07/01/2020 12:00:00 AM EST [facility] Lancets (ONETOUCH DELICA PLUS [id number]) MISC 06/05/2020 12:00:00 A M EST [facility] ONETOUCH ULTRA test strip 04/30/2020 12:00:00 AM EDT [facility] potassium chloride SA (K-DUR,KLOR-CON) 20 MEQ tablet 020 12:00:00 AM EDT [facility] Furosemide 20 MG Oral Tablet 03/24/2020 12:00:00 AM EDT [facility] 24 HR metoprolol succinate 50 MG Extended Release Oral Tablet 03/07/2020 12:00:00 AM EDT [facility] 24 HR Diltiazem Hydrochloride 240 MG Extended Release Oral Capsule 03/07/2020 12:00:00 AM EDT [facility] apixaban 2.5 MG Oral Tablet 02/23/2020 12:00:00 AM EDT [facility] Digoxin 0.125 MG Oral Tablet 02/23/2020 12:00:00 AM EDT [facility] Metformin hydrochloride 500 MG Oral Tablet [facility] glimepiride 1 MG Oral Tablet [facility] Sucralfate 100 MG/ML Oral Suspension [facility] potassium chloride SA (K-DUR,KLOR-CON) 20 MEQ tablet [facility] Ketotifen 0.25 MG/ML Ophthalmic Solution [facility] pantoprazole 40 MG Delayed Release Oral Tablet [facility]
[2021-06-19] MEDS ORDERED: B-122500 PO (14:06)
[2021-06-19] MEDS ORDERED: LIDOCAINE 2% 100MG/5ML SDV (FOR ANES.) As Ordered ONE (14:44)
[2021-06-19] MEDS ORDERED: propofoL 200 MG/20 ML VIAL As Ordered ONE ×2 (14:44→15:36)
--- NOTE | 2021-06-19 16:20 | ROOR ---
Patient Name: Meron Rico Procedure Date: 06/19/2021 3:04 PM Date of : 1940 Age: 80 Room: [facility] Gender: Female Note Status: Finalized Procedure: Upper GI endoscopy Indications: Acute post hemorrhagic anemia, Iron deficiency anemia secondary to chronic blood loss, Iron deficiency anemia Providers: Jeff Cramer MD Referring MD: Nadiya Bryan NP Requesting Provider: Medicines: Monitored Anesthesia Care Complications: No immediate complications. Procedure: Pre-Anesthesia Assessment: - Prior to the procedure, a History and Physical was performed, and patient medications and allergies were reviewed. The patient is competent. The risks and benefits of the procedure and the sedation options and risks were discussed with the patient. All questions were answered and informed consent was obtained. Patient identification and proposed procedure were verified by the physician, the nurse and the anesthesiologist in the procedure room. Mental Status Examination: alert and oriented. Airway Examination: normal oropharyngeal airway and neck mobility. Respiratory Examination: clear to auscultation. CV Examination: normal. Prophylactic Antibiotics: The patient does not require prophylactic antibiotics. Prior Anticoagulants: The patient has taken no previous anticoagulant or antiplatelet agents. ASA Grade Assessment: III - A patient with severe systemic disease. After reviewing the risks and benefits, the patient was deemed in satisfactory condition to undergo the procedure. The anesthesia plan was to use monitored anesthesia care (MAC). Immediately prior to administration of medications, the patient was re-assessed for adequacy to receive sedatives. The heart rate, respiratory rate, oxygen saturations, blood pressure, adequacy of pulmonary ventilation, and response to care were monitored throughout the procedure. The physical status of the patient was re-assessed after the procedure. The Endoscope was introduced through the mouth, and advanced to the second part of duodenum. The upper GI endoscopy was accomplished without difficulty. The patient tolerated the procedure well. Findings: The examined esophagus was normal. 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 Focal radiofrequency ablation of gastric antral vascular ectasia in the gastric antrum was performed. With the endoscope in place, the position and extent of the abnormal mucosa and appropriate anatomic landmarks were noted. The abnormal mucosa was irrigated with water. Gastric contents were suctioned. The radiofrequency channel ablation catheter was introduced through the endoscope working channel. The endoscope with the ablation catheter was advanced to the areas of abnormal mucosa. The endoscope with the channel ablation catheter was positioned under direct visualization so that the catheter was placed in contact with the surface of the abnormal mucosa. Energy was applied twice at 12 J/cm2. Ablation was repeated in a likewise fashion to all visible abnormal mucosa. The channel ablation catheter was then removed through the endoscope working channel, and the ablation catheter was cleaned. The endoscope was left in place. The ablation catheter was reinserted into the endoscope working channel. A second round of ablation was then performed. Energy was applied once at 12 J/cm2 to retreat the areas of abnormal mucosa that had been treated with the first series of ablation. The ablation catheter was removed through the endoscope working channel. The areas where abnormal mucosa had been ablated were examined. Whitish changes of ablated mucosa were present. The total number of energy applications for all mucosal sites treated was 40. There was a moderate amount of unablated abnormal mucosa present. Coagulation for destruction of remaining portion of lesion using argon plasma at 0.8 liters/minute and 20 goss was successful. Estimated blood loss was minimal. The duodenal bulb, second portion of the duodenum, area of the papilla and third portion of the duodenum were normal. Impression: - Normal esophagus. - Gastric antral vascular ectasia with bleeding. Treated with radiofrequency ablation. Treated with argon plasma coagulation (APC). - Normal duodenal bulb, second portion of the duodenum, area of the papilla and third portion of the duodenum. - No specimens collected. Recommendation: - Patient has a contact number available for emergencies. The signs and symptoms of potential delayed complications were discussed with the patient. Return to normal activities tomorrow. Written discharge instructions were provided to the patient. - Clear liquid diet for 1 day, then advance as tolerated to mechanical soft diet. - Continue present medications. - Use Protonix (pantoprazole) 40 mg PO BID for 3 months. - Use TUMS PO as directed for 1 week. - Observe patient's clinical course following today's procedure with therapeutic intervention. - Telephone endoscopist if symptomatic 1 - 2 weeks. Please call GI clinic @ [phone] for apppointment date and time. - Check hemogram with white blood cell count and platelets weekly. - Repeat upper endoscopy in 6 weeks to evaluate the response to therapy and for retreatment. - Return to GI clinic electively as outpatient if the above repeat labs show persistent anemia / abnormalities. Procedure Code(s): --- Professional --- 15051, Esophagogastroduodenoscopy, flexible, transoral; with ablation of tumor(s), polyp(s), or other lesion(s) (includes pre- and post-dilation and guide wire passage, when performed) 20682, 59, Esophagogastroduodenoscopy, flexible, transoral; with control of bleeding, any method Diagnosis Code(s): --- Professional --- K31.811, Angiodysplasia of stomach and duodenum with bleeding D62, Acute posthemorrhagic anemia D50.0, Iron deficiency anemia secondary to blood loss (chronic) D50.9, Iron deficiency anemia, unspecified CPT copyright 2019 [employer]. All rights reserved. The codes documented in this report are preliminary and upon label coder review may be revised to meet current compliance requirements. Jeff Cramer MD Jeff Cramer MD 06/19/2021 4:19:20 PM Electronically signed by Jeff Cramer MD Number of Addenda: 0 Note Initiated On: 06/19/2021 3:04 PM Estimated Blood Loss: Estimated blood loss was minimal.
[2021-06-19 16:30] VITALS: BP 123/77
== END 2021-06-19 16:50 | disposition home or self-care (01) ==
LOC: M SDC 13:29
PROVIDERS: ATTEND Internal Medicine Gastroenterology
DX: K31.811 Angiodysplasia of stomach and duodenum with bleeding (principal); D62 Acute posthemorrhagic anemia; D50.0 Iron deficiency anemia secondary to blood loss (chronic); E78.5 Hyperlipidemia, unspecified; I50.9 Heart failure, unspecified; I48.91 Unspecified atrial fibrillation; I11.9 Hypertensive heart disease without heart failure; Z79.899 Other long term (current) drug therapy; F41.9 Anxiety disorder, unspecified; E11.9 Type 2 diabetes mellitus without complications

== ENCOUNTER → 2021-08-31 | Outpatient (CLI) | payer MEDICARE, OTHER ==
[~2021-08-31] MED LIST changes: +B-122500 PO; -LR 1,000 ML IV ONE; -OMEP-221 PO; +OMEP40CA5 PO; +POTA-151 PO; -POTA20TA6 PO; +TORS20TA2 PO; -ceFAZolin SOD 2 GM in IV 1 EA IV ONE
== END ==
LOC: M LABSMTC 10:12
PROVIDERS: ATTEND Anesthesiology
DX: Z01.812 Encounter for preprocedural laboratory examination (principal); Z20.822 Contact with and (suspected) exposure to COVID-19

== ENCOUNTER 2021-09-05 13:30 | Day surgery (SDC) | payer MEDICARE, OTHER ==
[~2021-09-05] VITALS: Ht 154.9 cm; Wt 51.7 kg
[~2021-09-05 13:30] MED LIST changes: +LR 1,000 ML IV ONE; +NS 1,000 ML IV ONE
[2021-09-05] MEDS ORDERED: propofoL 200 MG/20 ML VIAL As Ordered ONE (16:20)
[2021-09-05] MEDS ORDERED: LIDOCAINE 2% 100MG/5ML SDV (FOR ANES.) As Ordered ONE (16:20)
[2021-09-05] MEDS ORDERED: PHENYLephrine 500MCG 5ML (100MCG/ML) SYRINGE As Ordered ONE (17:00)
[2021-09-05 17:43] VITALS: BP 131/86
== END 2021-09-05 17:45 | disposition home or self-care (01) ==
LOC: M SDC 13:30
PROVIDERS: ATTEND Internal Medicine Gastroenterology
DX: D50.9 Iron deficiency anemia, unspecified (principal); K31.811 Angiodysplasia of stomach and duodenum with bleeding; I10 Essential (primary) hypertension; E78.5 Hyperlipidemia, unspecified; I48.91 Unspecified atrial fibrillation; K57.92 Diverticulitis of intestine, part unspecified, without perforation or abscess without bleeding; Z85.09 Personal history of malignant neoplasm of other digestive organs; Z92.3 Personal history of irradiation
CPT/HCPCS: 43255; J2370

== ENCOUNTER → 2021-09-13 | Outpatient (REF) | payer MEDICARE, OTHER ==
[~2021-09-13] MED LIST changes: -D31000TA2 PO; -LR 1,000 ML IV ONE; -NS 1,000 ML IV ONE; +VITA100093 PO
[2021-09-13 13:35] LABS: CREATININE FOR GFR 0.99 MG/DL (0.55-1.30); GLOMERULAR FILTRATION RATE 57.3 (>32); POTASSIUM SERUM 4.2 MEQ/L (3.5-5.1)
== END ==
LOC: M LAB REF 10:56
PROVIDERS: ATTEND Physician Assistant
DX: R60.0 Localized edema (principal)

== ENCOUNTER → 2021-09-18 | Outpatient (CLI) | payer MEDICARE, OTHER | LOC: M PLAIMG 09:55 | PROVIDERS: ATTEND Nurse Practitioner Family | DX: M81.0 Age-related osteoporosis without current pathological fracture (principal) ==

== ENCOUNTER → 2021-09-22 | Outpatient (CLI) | payer MEDICARE, OTHER | LOC: M WHC 07:33 | PROVIDERS: ATTEND Internal Medicine Gastroenterology | DX: D62 Acute posthemorrhagic anemia (principal); N28.1 Cyst of kidney, acquired; R16.1 Splenomegaly, not elsewhere classified ==

== ENCOUNTER 2021-10-11 13:50 | Outpatient (CLI) | payer MEDICARE, OTHER ==
[~2021-10-11] VITALS: Ht 154.9 cm; Wt 51.7 kg
[2021-10-11] VITALS (7 sets, daily range): BP systolic 105–140; BP diastolic 52–85
[2021-10-11] MEDS ORDERED: ACETAMINOPHEN TAB 650MG DOSE (2X325MG) PO ONE (14:10)
[2021-10-11] MEDS ORDERED: FUROSEMIDE 20MG/2ML VIAL (J1940) IV ONE (14:10)
[2021-10-11] MEDS ORDERED: diphenhydrAMINE 25MG CAP PO ONE (14:10)
== END 2021-10-11 18:40 | disposition home or self-care (01) ==
LOC: M INFU 13:50
PROVIDERS: ATTEND Internal Medicine Medical Oncology
DX: D64.9 Anemia, unspecified (principal); K92.2 Gastrointestinal hemorrhage, unspecified
CPT/HCPCS: 36415; 36430; 85025; 86850; 86900; 86901; 86920; 96374; J1940; P9016

== ENCOUNTER → 2021-11-29 | Outpatient (CLI) | payer MEDICARE, OTHER ==
[~2021-11-29] MED LIST changes: +GASTROGRAFIN SOLUTION 30ML (Q9963) As Ordered ONE; +ISOVUE-370 76% 100ML VIAL As Ordered ONE; +THAL100C PO
== END ==
LOC: M RAD 11:39
PROVIDERS: ATTEND Internal Medicine Medical Oncology
DX: C18.9 Malignant neoplasm of colon, unspecified (principal)

== ENCOUNTER 2021-11-30 11:26 | Outpatient (CLI) | payer MEDICARE, OTHER ==
[2021-11-30] VITALS (8 sets, daily range): BP systolic 101–133; BP diastolic 56–72
[~2021-11-30] VITALS: Ht 154.9 cm; Wt 51.7 kg
[~2021-11-30 11:26] MED LIST changes: +ACETAMINOPHEN TAB 650MG DOSE (2X325MG) PO ONE; +FUROSEMIDE 20MG/2ML VIAL (J1940) IV ONE; -GASTROGRAFIN SOLUTION 30ML (Q9963) As Ordered ONE; -ISOVUE-370 76% 100ML VIAL As Ordered ONE; +NS 1,000 ML IV SCH; +diphenhydrAMINE 25MG CAP PO ONE
== END 2021-11-30 16:30 | disposition home or self-care (01) ==
LOC: M INFU 11:26
PROVIDERS: ATTEND Internal Medicine Medical Oncology
DX: D64.9 Anemia, unspecified (principal)
CPT/HCPCS: 36430; P9016

== ENCOUNTER → 2021-12-20 | Outpatient (REF) | payer MEDICARE, OTHER ==
[~2021-12-20] MED LIST changes: -ACETAMINOPHEN TAB 650MG DOSE (2X325MG) PO ONE; -FUROSEMIDE 20MG/2ML VIAL (J1940) IV ONE; -NS 1,000 ML IV SCH; -diphenhydrAMINE 25MG CAP PO ONE
[2021-12-20 12:24] LABS: CHOLESTEROL RISK RATIO 2.78 (<5)
[2021-12-20 14:32] LABS: HEMOGLOBIN A1c 5.3 %
== END ==
LOC: M LAB REF 11:43
PROVIDERS: ATTEND Nurse Practitioner Family
DX: E78.2 Mixed hyperlipidemia (principal); E11.69 Type 2 diabetes mellitus with other specified complication

== ENCOUNTER → 2022-02-28 | Outpatient (CLI) | payer MEDICARE, OTHER ==
[~2022-02-28] MED LIST changes: +ACET650T15 PO; +CALC1TAB12 PO; +DILT240C83; +OLOP2.5D3 OP; +PANT40TA29; +POTA1TAB14 PO; +TORS10TA3; +TRAM50TA2; +VITA400C83 PO
== END ==
LOC: M RAD 11:40
PROVIDERS: ATTEND Internal Medicine Gastroenterology
DX: D62 Acute posthemorrhagic anemia (principal)

== ENCOUNTER → 2022-04-11 | Outpatient (CLI) | payer MEDICARE, OTHER ==
[~2022-04-11] MED LIST changes: +SUCR1ORA2
== END ==
LOC: M RAD 11:16
PROVIDERS: ATTEND Internal Medicine Gastroenterology
DX: K31.819 Angiodysplasia of stomach and duodenum without bleeding (principal); Z93.3 Colostomy status; T18.9XXA Foreign body of alimentary tract, part unspecified, initial encounter; M16.10 Unilateral primary osteoarthritis, unspecified hip; M51.9 Unspecified thoracic, thoracolumbar and lumbosacral intervertebral disc disorder; I70.90 Unspecified atherosclerosis

== ENCOUNTER → 2022-04-11 | Outpatient (CLI) | payer MEDICARE, OTHER | LOC: M RAD 17:04 | PROVIDERS: ATTEND Internal Medicine Gastroenterology | DX: T18.9XXA Foreign body of alimentary tract, part unspecified, initial encounter (principal); M16.10 Unilateral primary osteoarthritis, unspecified hip; M51.9 Unspecified thoracic, thoracolumbar and lumbosacral intervertebral disc disorder; I70.90 Unspecified atherosclerosis; Z93.3 Colostomy status; K31.819 Angiodysplasia of stomach and duodenum without bleeding ==

== ENCOUNTER → 2022-04-12 | Outpatient (CLI) | payer MEDICARE, OTHER | LOC: M RAD 08:10 | PROVIDERS: ATTEND Internal Medicine Gastroenterology | DX: K31.819 Angiodysplasia of stomach and duodenum without bleeding (principal); Z18.0 Retained radioactive fragments ==

== ENCOUNTER → 2022-10-09 | Outpatient (REF) | payer MEDICARE, OTHER ==
[~2022-10-09] MED LIST changes: +CLAR1TAB13 PO
[2022-10-09 11:58] LABS: ALBUMIN 3.8 G/DL (3.2-5.2); ALKALINE PHOSPHATASE 122 U/L (46-116); ALT/SGPT < 9 U/L (7.0-40); AST/SGOT 9 U/L (<34); BILIRUBIN,TOTAL 0.7 MG/DL (0.3-1.2); BLOOD UREA NITROGEN 17 MG/DL (9-23); CALCIUM LEVEL 9.3 MG/DL (8.3-10.6); CARBON DIOXIDE LEVEL 25 MMOL/L (20-31); CHLORIDE LEVEL 97 MMOL/L (98-107); CREATININE FOR GFR 0.82 MG/DL (0.55-1.30); GLOMERULAR FILTRATION RATE > 60.0 (>32); GLUCOSE, FASTING 392 MG/DL (74-106); POTASSIUM SERUM 4.1 MMOL/L (3.5-5.1); SODIUM LEVEL 132 MMOL/L (136-145); TOTAL PROTEIN 7.2 G/DL (5.7-8.2)
[2022-10-09 11:59] LABS: HEMOGLOBIN A1c 10.5 % (4.0-6.0)
== END ==
LOC: M LAB REF 11:13
PROVIDERS: ATTEND Nurse Practitioner Family
DX: I10 Essential (primary) hypertension (principal); E11.69 Type 2 diabetes mellitus with other specified complication

== ENCOUNTER 2022-11-19 08:40 | Inpatient (IN) | payer MEDICARE, OTHER ==
[2022-11-19] VITALS (9 sets, daily range): BP systolic 153–197; BP diastolic 81–110
[~2022-11-19] VITALS: Ht 154.9 cm; Wt 60.0 kg
[~2022-11-19 08:40] MED LIST changes: -OLOP2.5D3 OP; -PANT40TA29; +POTA-298 PO; -POTA1TAB14 PO; -TORS10TA3; +TORS10TA3 PO; -TRAM50TA2; +TRAM50TA2 PO
[2022-11-19] MEDS ORDERED: TORSEMIDE 10 MG TABLET PO SCH (09:00)
[2022-11-19] MEDS: METOPROLOL 5 MG/5 ML VIAL IV SCH ×3 (09:18→09:36)
[2022-11-19 09:23] LABS: BASO % 0.6 % (0.0-1.0); EOS % 0.3 % (0.0-3.0); HEMATOCRIT 29.3 % (36.0-47.0); HEMOGLOBIN 9.2 g/dl (12.0-15.5); LYMPH # 0.3 10^3/uL (1.5-5.0); LYMPH % 4.6 % (24.0-44.0); MEAN CORPUSCULAR HEMOGLOBIN 30.7 pg (27.0-33.0); MEAN CORPUSCULAR HGB CONC 31.4 g/dl (32.0-36.5); MEAN CORPUSCULAR VOLUME 97.7 fl (80.0-96.0); MONO # 0.8 10^3/uL (0.0-0.8); MONO % 11.3 % (2.0-8.0); NEUTROPHILS # 5.6 10^3/uL (1.5-8.5); NEUTROPHILS % 82.5 % (36.0-66.0); PLATELET COUNT, AUTOMATED 357 10^3/uL (150-450); WHITE BLOOD COUNT 6.8 10^3/uL (4.0-10.0)
[2022-11-19 09:47] LABS: CK-MB VALUE MASS < 1.0 NG/ML (<3.6)
[2022-11-19 09:49] LABS: ALBUMIN 3.7 G/DL (3.2-5.2); ALKALINE PHOSPHATASE 142 U/L (46-116); ALT/SGPT 12 U/L (7.0-40); AST/SGOT 23 U/L (<34); BILIRUBIN,DIRECT 0.3 MG/DL (<0.4); BILIRUBIN,TOTAL 0.9 MG/DL (0.3-1.2); BLOOD UREA NITROGEN 24 MG/DL (9-23); CARBON DIOXIDE LEVEL 21 MMOL/L (20-31); CHLORIDE LEVEL 103 MMOL/L (98-107); CREATININE FOR GFR 0.89 MG/DL (0.55-1.30); GLOMERULAR FILTRATION RATE > 60.0 (>32); GLUCOSE, FASTING 232 MG/DL (74-106); POTASSIUM SERUM 4.8 MMOL/L (3.5-5.1); SODIUM LEVEL 135 MMOL/L (136-145); TOTAL PROTEIN 7.1 G/DL (5.7-8.2)
[2022-11-19 09:51] LABS: THYROID STIMULATING HORMONE 3.627 uIU/ML (0.55-4.78)
[2022-11-19 09:52] LABS: CPK CREATINE PHOSPHOKINASE 69 U/L (34-145); MB/CK RELATIVE INDEX 1.44 (< OR =4)
[2022-11-19 10:14] LABS: RSV AMPLIFICATION NEGATIVE (NEGATIVE)
[2022-11-19 10:25] LABS: CK-MB VALUE MASS < 1.0 NG/ML (<3.6)
[2022-11-19 10:27] LABS: CPK CREATINE PHOSPHOKINASE 55 U/L (34-145); MB/CK RELATIVE INDEX 1.81 (< OR =4)
[2022-11-19] MEDS ORDERED: LOSARTAN 25 MG TAB PO ONE (10:40)
[2022-11-19] MEDS ORDERED: TIZA1TAB12 PO (11:32)
[2022-11-19] MEDS ORDERED: B-12100021 PO (11:32)
[2022-11-19] MEDS ORDERED: CLOP75TA2 PO (11:32)
[2022-11-19] MEDS ORDERED: METF-838 PO (11:32)
[2022-11-19] MEDS ORDERED: HOME MED LIST COMPLETE! XX SCH (11:35)
[2022-11-19] MEDS ORDERED: ACETAMINOPHEN 500 MG TAB PO ONE (12:30)
[2022-11-19] MEDS ORDERED: ACETAMINOPHEN TAB 650MG DOSE (2X325MG) PO ONE (12:35)
[2022-11-19] MEDS ORDERED: NORCO, ANEXSIA 5/325MG TABLET (HYDROcodone/ACETAMINOPHEN) PO PRN (13:05)
[2022-11-19] MEDS ORDERED: traMADol 50 MG TAB PO PRN (13:05)
[2022-11-19] MEDS ORDERED: oxyCODONE 5MG TAB PO ONE (13:20)
[2022-11-19] MEDS: MIRALAX *UNIT DOSE* 17GM PACKET PO SCH (13:34)
[2022-11-19] MEDS: DOCUSATE SODIUM 100MG CAPSULE PO SCH ×2 (13:34→19:57)
[2022-11-19] MEDS: CLOPIDOGREL 75 MG TAB PO SCH (13:36)
[2022-11-19] MEDS: PANTOPRAZOLE 40MG TAB (PROTONIX) PO SCH ×2 (13:37→19:55)
[2022-11-19] MEDS: POTASSIUM CHLORIDE 10MEQ SR TABLET PO SCH (13:37)
[2022-11-19] MEDS ORDERED: ULTRACET TAB PO SCH (14:00)
[2022-11-19] MEDS ORDERED: METOPROLOL SUCC (TopROL XL) 50MG **XL** TAB PO ONE (18:00)
[2022-11-19] MEDS ORDERED: GLUCAGON INJ 1MG VIAL SC PRN (18:25)
[2022-11-19] MEDS ORDERED: GLUCOSE 4GM CHEW TABLET PO PRN (18:25)
[2022-11-19] MEDS ORDERED: DEXTROSE 50% 50ML SYRINGE IV PRN (18:25)
[2022-11-19] MEDS ORDERED: ONDANSETRON 4MG 2ML VIAL IV PRN (18:35)
[2022-11-19] MEDS ORDERED: oxyCODONE 5MG TAB PO PRN (18:35)
[2022-11-19] MEDS ORDERED: PILL CUTTER 1 EACH XX PRN (18:45)
[2022-11-19] MEDS: tiZANidine 4 MG TAB PO PRN (19:53)
[2022-11-19] MEDS: ATORVASTATIN 20 MG TAB PO SCH (19:55)
[2022-11-19] MEDS: INSULIN LISPRO (NovoLOG) PER UNIT SC SCH (20:09)
[2022-11-19] MEDS ORDERED: LOSARTAN 25 MG TAB PO SCH (21:00)
[2022-11-20] VITALS: BP 111/63
[2022-11-20] MEDS: oxyCODONE 5MG TAB PO PRN ×3 (03:56→18:51)
[2022-11-20 04:00] VITALS: BP 172/76
[2022-11-20 05:11] LABS: BASO % 0.6 % (0.0-1.0); EOS % 0.4 % (0.0-3.0); HEMATOCRIT 24.8 % (36.0-47.0); HEMOGLOBIN 7.8 g/dl (12.0-15.5); LYMPH # 0.3 10^3/uL (1.5-5.0); LYMPH % 5.2 % (24.0-44.0); MEAN CORPUSCULAR HEMOGLOBIN 30.2 pg (27.0-33.0); MEAN CORPUSCULAR HGB CONC 31.5 g/dl (32.0-36.5); MEAN CORPUSCULAR VOLUME 96.1 fl (80.0-96.0); MONO # 0.6 10^3/uL (0.0-0.8); MONO % 12.1 % (2.0-8.0); NEUTROPHILS # 3.9 10^3/uL (1.5-8.5); NEUTROPHILS % 81.3 % (36.0-66.0); PLATELET COUNT, AUTOMATED 287 10^3/uL (150-450); RED BLOOD COUNT 2.58 10^6/uL (4.00-5.40); WHITE BLOOD COUNT 4.8 10^3/uL (4.0-10.0)
[2022-11-20 05:39] LABS: BLOOD UREA NITROGEN 16 MG/DL (9-23); CALCIUM LEVEL 7.9 MG/DL (8.3-10.6); CARBON DIOXIDE LEVEL 23 MMOL/L (20-31); CHLORIDE LEVEL 105 MMOL/L (98-107); CREATININE FOR GFR 0.72 MG/DL (0.55-1.30); GLOMERULAR FILTRATION RATE > 60.0 (>32); GLUCOSE, FASTING 192 MG/DL (74-106); POTASSIUM SERUM 4.2 MMOL/L (3.5-5.1); SODIUM LEVEL 138 MMOL/L (136-145)
[2022-11-20 08:00] VITALS: BP 146/79
[2022-11-20] MEDS: DOCUSATE SODIUM 100MG CAPSULE PO SCH ×2 (08:46→19:53)
[2022-11-20] MEDS: INSULIN LISPRO (NovoLOG) PER UNIT SC SCH ×4 (08:46→20:59)
[2022-11-20] MEDS: CLOPIDOGREL 75 MG TAB PO SCH (08:46)
[2022-11-20] MEDS: PANTOPRAZOLE 40MG TAB (PROTONIX) PO SCH ×2 (08:47→19:52)
[2022-11-20] MEDS: CYANOCOBALAMIN 500 MCG TAB PO SCH (08:47)
[2022-11-20] MEDS: POTASSIUM CHLORIDE 10MEQ SR TABLET PO SCH (08:47)
[2022-11-20] MEDS: FUROSEMIDE 40MG/4ML VIAL IV SCH (08:48)
[2022-11-20] MEDS: METOPROLOL SUCC (TopROL XL) 50MG **XL** TAB PO SCH ×2 (08:48→19:52)
[2022-11-20] MEDS ORDERED: METOPROLOL SUCC (TopROL XL) 50MG **XL** TAB PO SCH (09:00)
[2022-11-20 12:00] VITALS: BP 136/63
[2022-11-20] MEDS: MIRALAX *UNIT DOSE* 17GM PACKET PO SCH (12:59)
[2022-11-20 17:39] LABS: HEMATOCRIT 26.2 % (36.0-47.0); HEMOGLOBIN 8.2 g/dl (12.0-15.5)
[2022-11-20 18:12] LABS: FERRITIN 33.3 NG/ML (7.3-270.7)
[2022-11-20 18:14] LABS: FOLATE 13.98 NG/ML (>5.4); PERCENT SATURATION 5.7 % (13.2-45.0)
[2022-11-20 19:47] VITALS: BP 162/76
[2022-11-20] MEDS: ATORVASTATIN 20 MG TAB PO SCH (19:53)
[2022-11-20 23:51] VITALS: BP 158/87
[2022-11-21] VITALS (19 sets, daily range): BP systolic 72–155; BP diastolic 45–88
[2022-11-21] MEDS: oxyCODONE 5MG TAB PO PRN ×2 (01:56→14:28)
[2022-11-21] MEDS ORDERED: METOPROLOL SUCC (TopROL XL) 50MG **XL** TAB PO ONE (02:00)
[2022-11-21 05:09] LABS: BASO % 0.6 % (0.0-1.0); EOS # 0.1 10^3/uL (0.0-0.5); HEMATOCRIT 25.9 % (36.0-47.0); HEMOGLOBIN 8.1 g/dl (12.0-15.5); LYMPH # 0.3 10^3/uL (1.5-5.0); LYMPH % 6.7 % (24.0-44.0); MEAN CORPUSCULAR HGB CONC 31.3 g/dl (32.0-36.5); MEAN CORPUSCULAR VOLUME 95.9 fl (80.0-96.0); MONO # 0.7 10^3/uL (0.0-0.8); NEUTROPHILS # 3.6 10^3/uL (1.5-8.5); NEUTROPHILS % 75.7 % (36.0-66.0); PLATELET COUNT, AUTOMATED 308 10^3/uL (150-450); WHITE BLOOD COUNT 4.8 10^3/uL (4.0-10.0)
[2022-11-21 05:36] LABS: BLOOD UREA NITROGEN 16 MG/DL (9-23); CALCIUM LEVEL 7.6 MG/DL (8.3-10.6); CARBON DIOXIDE LEVEL 24 MMOL/L (20-31); CHLORIDE LEVEL 105 MMOL/L (98-107); CREATININE FOR GFR 0.83 MG/DL (0.55-1.30); GLOMERULAR FILTRATION RATE > 60.0 (>32); GLUCOSE, FASTING 234 MG/DL (74-106); POTASSIUM SERUM 3.9 MMOL/L (3.5-5.1); SODIUM LEVEL 138 MMOL/L (136-145)
[2022-11-21] MEDS: MIRALAX *UNIT DOSE* 17GM PACKET PO SCH (08:31)
[2022-11-21] MEDS: POTASSIUM CHLORIDE 10MEQ SR TABLET PO SCH (08:31)
[2022-11-21] MEDS: tiZANidine 4 MG TAB PO PRN ×2 (08:32→19:49)
[2022-11-21] MEDS: CYANOCOBALAMIN 500 MCG TAB PO SCH (08:32)
[2022-11-21] MEDS: FUROSEMIDE 40MG/4ML VIAL IV SCH (08:33)
[2022-11-21] MEDS: DOCUSATE SODIUM 100MG CAPSULE PO SCH (08:33)
[2022-11-21] MEDS: CLOPIDOGREL 75 MG TAB PO SCH (08:33)
[2022-11-21] MEDS: PANTOPRAZOLE 40MG TAB (PROTONIX) PO SCH ×2 (08:33→20:08)
[2022-11-21] MEDS: INSULIN LISPRO (NovoLOG) PER UNIT SC SCH ×4 (08:34→19:38)
[2022-11-21] MEDS ORDERED: METOPROLOL TART 50 MG TAB PO SCH ×2 (09:00→21:00)
[2022-11-21] MEDS ORDERED: NS 500 ML IV ONE (12:00)
[2022-11-21] MEDS ORDERED: FERRIC CARBOXYMALTOSE INJ 750 MG, VIAL MATE ADAPTER 1 EACH in NS 250 ML IV ONE (14:00)
[2022-11-21] MEDS ORDERED: diltiaZEM 125 MG in NS 100 ML IV SCH (14:55)
[2022-11-21] MEDS: ATORVASTATIN 20 MG TAB PO SCH (20:08)
[2022-11-22] VITALS (16 sets, daily range): BP systolic 95–200; BP diastolic 60–103
[2022-11-22] MEDS: traMADol 50 MG TAB PO PRN ×2 (01:59→12:05)
[2022-11-22] MEDS: tiZANidine 4 MG TAB PO PRN ×2 (04:21→16:27)
[2022-11-22 04:59] LABS: BASO % 0.6 % (0.0-1.0); EOS # 0.1 10^3/uL (0.0-0.5); EOS % 1.1 % (0.0-3.0); HEMATOCRIT 25.4 % (36.0-47.0); HEMOGLOBIN 7.8 g/dl (12.0-15.5); LYMPH # 0.3 10^3/uL (1.5-5.0); LYMPH % 5.7 % (24.0-44.0); MEAN CORPUSCULAR HEMOGLOBIN 30.2 pg (27.0-33.0); MEAN CORPUSCULAR HGB CONC 30.7 g/dl (32.0-36.5); MEAN CORPUSCULAR VOLUME 98.4 fl (80.0-96.0); MONO # 0.7 10^3/uL (0.0-0.8); MONO % 14.1 % (2.0-8.0); NEUTROPHILS # 3.7 10^3/uL (1.5-8.5); NEUTROPHILS % 77.9 % (36.0-66.0); RED BLOOD COUNT 2.58 10^6/uL (4.00-5.40); WHITE BLOOD COUNT 4.8 10^3/uL (4.0-10.0)
[2022-11-22 05:07] LABS: PLATELET COUNT, AUTOMATED 121 10^3/uL (150-450)
[2022-11-22 05:23] LABS: CALCIUM LEVEL 7.5 MG/DL (8.3-10.6); CREATININE FOR GFR 1.01 MG/DL (0.55-1.30); GLOMERULAR FILTRATION RATE 55.7 (>32)
[2022-11-22 08:07] LABS: BASO % 0.5 % (0.0-1.0); HEMATOCRIT 23.6 % (36.0-47.0); HEMOGLOBIN 7.2 g/dl (12.0-15.5); LYMPH # 0.2 10^3/uL (1.5-5.0); LYMPH % 5.1 % (24.0-44.0); MEAN CORPUSCULAR HEMOGLOBIN 30.1 pg (27.0-33.0); MEAN CORPUSCULAR HGB CONC 30.5 g/dl (32.0-36.5); MEAN CORPUSCULAR VOLUME 98.7 fl (80.0-96.0); MONO # 0.7 10^3/uL (0.0-0.8); NEUTROPHILS # 3.2 10^3/uL (1.5-8.5); NEUTROPHILS % 76.4 % (36.0-66.0); PLATELET COUNT, AUTOMATED 101 10^3/uL (150-450); RED BLOOD COUNT 2.39 10^6/uL (4.00-5.40); WHITE BLOOD COUNT 4.1 10^3/uL (4.0-10.0)
[2022-11-22] MEDS: CYANOCOBALAMIN 500 MCG TAB PO SCH (08:55)
[2022-11-22] MEDS: INSULIN LISPRO (NovoLOG) PER UNIT SC SCH ×4 (08:55→20:08)
[2022-11-22] MEDS: TORSEMIDE 10 MG TABLET PO SCH (08:56)
[2022-11-22] MEDS: PANTOPRAZOLE 40MG TAB (PROTONIX) PO SCH ×2 (08:56→20:10)
[2022-11-22] MEDS: MIRALAX *UNIT DOSE* 17GM PACKET PO SCH (08:57)
[2022-11-22] MEDS: POTASSIUM CHLORIDE 10MEQ SR TABLET PO SCH (08:57)
[2022-11-22] MEDS: FERROUS SULFATE 325MG TAB PO SCH (08:57)
[2022-11-22] MEDS: CLOPIDOGREL 75 MG TAB PO SCH (08:58)
[2022-11-22 09:31] LABS: PLTBLUE- EDTA FREE CALC 268 K/mm3 (172-450)
[2022-11-22 10:38] LABS: PLTBLUE- EDTA FREE MACHINE 244 10^3/uL (172-450)
[2022-11-22] MEDS ORDERED: METO1TAB32 PO (15:10)
[2022-11-22] MEDS ORDERED: FERR325T3 PO (15:13)
[2022-11-22 15:49] LABS: HEMATOCRIT 33.8 % (36.0-47.0)
[2022-11-22 15:58] LABS: HEMOGLOBIN 10.2 g/dl (12.0-15.5)
[2022-11-22] MEDS: METOPROLOL SUCC *XL* 25MG TAB (TopROL *XL*) PO SCH (17:21)
[2022-11-22] MEDS: ACETAMINOPHEN TAB 650MG DOSE (2X325MG) PO PRN (17:22)
[2022-11-22] MEDS: ATORVASTATIN 20 MG TAB PO SCH (20:10)
[2022-11-23 00:12] VITALS: BP 133/74
[2022-11-23 02:13] VITALS: BP 161/72
[2022-11-23] MEDS: tiZANidine 4 MG TAB PO PRN (02:15)
[2022-11-23 03:59] VITALS: BP 123/58
[2022-11-23 04:58] LABS: BASO % 0.6 % (0.0-1.0); EOS # 0.1 10^3/uL (0.0-0.5); EOS % 1.1 % (0.0-3.0); HEMATOCRIT 26.6 % (36.0-47.0); HEMOGLOBIN 8.4 g/dl (12.0-15.5); LYMPH # 0.2 10^3/uL (1.5-5.0); LYMPH % 5.1 % (24.0-44.0); MEAN CORPUSCULAR HEMOGLOBIN 29.5 pg (27.0-33.0); MEAN CORPUSCULAR HGB CONC 31.6 g/dl (32.0-36.5); MEAN CORPUSCULAR VOLUME 93.3 fl (80.0-96.0); MONO # 0.8 10^3/uL (0.0-0.8); NEUTROPHILS # 3.6 10^3/uL (1.5-8.5); NEUTROPHILS % 76.6 % (36.0-66.0); RED BLOOD COUNT 2.85 10^6/uL (4.00-5.40); WHITE BLOOD COUNT 4.7 10^3/uL (4.0-10.0)
[2022-11-23 08:00] VITALS: BP 147/74
[2022-11-23] MEDS: ACETAMINOPHEN TAB 650MG DOSE (2X325MG) PO PRN (08:50)
[2022-11-23] MEDS: TORSEMIDE 10 MG TABLET PO SCH (08:53)
[2022-11-23] MEDS: INSULIN LISPRO (NovoLOG) PER UNIT SC SCH (08:53)
[2022-11-23] MEDS: traMADol 50 MG TAB PO PRN (08:53)
[2022-11-23] MEDS: MIRALAX *UNIT DOSE* 17GM PACKET PO SCH (08:54)
[2022-11-23] MEDS: CYANOCOBALAMIN 500 MCG TAB PO SCH (08:54)
[2022-11-23 08:55] VITALS: BP 147/74
[2022-11-23] MEDS: PANTOPRAZOLE 40MG TAB (PROTONIX) PO SCH (08:55)
[2022-11-23] MEDS: METOPROLOL SUCC *XL* 25MG TAB (TopROL *XL*) PO SCH (08:55)
[2022-11-23] MEDS: POTASSIUM CHLORIDE 10MEQ SR TABLET PO SCH (08:55)
[2022-11-23] MEDS: FERROUS SULFATE 325MG TAB PO SCH (08:55)
[2022-11-23 09:23] VITALS: BP 147/74
== END 2022-11-23 11:17 | disposition home or self-care (01) | DRG 308 ==
LOC: M ED 08:40 → M ED INP 11:18 → ENRESERV 11:58 → M ICU 12:30
PROVIDERS: ADMIT Internal Medicine Nephrology; ATTEND Internal Medicine
PROC: 30233N1 Transfusion of Nonautologous Red Blood Cells into Peripheral Vein, Percutaneous Approach (ICD-10-PCS; principal; 2022-11-22)
DX: I48.91 Unspecified atrial fibrillation (principal); I50.33 Acute on chronic diastolic (congestive) heart failure; I11.0 Hypertensive heart disease with heart failure; I16.0 Hypertensive urgency; Z79.02 Long term (current) use of antithrombotics/antiplatelets; M62.838 Other muscle spasm; M54.9 Dorsalgia, unspecified; D50.9 Iron deficiency anemia, unspecified; E11.9 Type 2 diabetes mellitus without complications; M47.816 Spondylosis without myelopathy or radiculopathy, lumbar region; E78.5 Hyperlipidemia, unspecified; I27.20 Pulmonary hypertension, unspecified; G89.29 Other chronic pain; K31.819 Angiodysplasia of stomach and duodenum without bleeding; I95.9 Hypotension, unspecified; R00.1 Bradycardia, unspecified; D63.8 Anemia in other chronic diseases classified elsewhere; Z85.038 Personal history of other malignant neoplasm of large intestine; Z92.21 Personal history of antineoplastic chemotherapy; Z92.3 Personal history of irradiation; Z88.8 Allergy status to other drugs, medicaments and biological substances; Z79.899 Other long term (current) drug therapy

== ENCOUNTER → 2022-11-26 | Outpatient (CLI) | payer MEDICARE, OTHER ==
[~2022-11-26] MED LIST changes: +B-12100021 PO; +CLOP75TA2 PO; +GASTROGRAFIN SOLUTION 30ML As Ordered ONE; +ISOVUE-370 76% 100ML VIAL As Ordered ONE; +METF-838 PO; +METO1TAB32 PO; +TIZA1TAB12 PO
== END ==
LOC: M RAD 11:07
PROVIDERS: ATTEND Internal Medicine Hematology & Oncology
DX: C18.2 Malignant neoplasm of ascending colon (principal); C20 Malignant neoplasm of rectum
CPT/HCPCS: 71260; 74177; Q9963; Q9967

== ENCOUNTER 2023-01-22 06:59 | Day surgery (SDC) | payer MEDICARE, OTHER ==
[~2023-01-22] VITALS: Ht 154.9 cm; Wt 54.4 kg
[~2023-01-22 06:59] MED LIST changes: -GASTROGRAFIN SOLUTION 30ML As Ordered ONE; -ISOVUE-370 76% 100ML VIAL As Ordered ONE; +NS 1,000 ML IV ONE
[2023-01-22] MEDS ORDERED: propofoL 200 MG/20 ML VIAL As Ordered ONE (08:24)
[2023-01-22] MEDS ORDERED: LIDOCAINE 1% MDV 20ML VIAL As Ordered ONE (08:24)
[2023-01-22 08:52] VITALS: TEMP 98.4
[2023-01-22 09:14] VITALS: BP 165/77; O2SAT 98
== END 2023-01-22 09:23 | disposition home or self-care (01) ==
LOC: M OPP 06:59
PROVIDERS: ATTEND Internal Medicine Gastroenterology
DX: K52.89 Other specified noninfective gastroenteritis and colitis (principal); K57.30 Diverticulosis of large intestine without perforation or abscess without bleeding; Z98.0 Intestinal bypass and anastomosis status; Z85.038 Personal history of other malignant neoplasm of large intestine; Z79.1 Long term (current) use of non-steroidal anti-inflammatories (NSAID); Z79.02 Long term (current) use of antithrombotics/antiplatelets; Z79.84 Long term (current) use of oral hypoglycemic drugs; Z79.899 Other long term (current) drug therapy; Z88.8 Allergy status to other drugs, medicaments and biological substances

== ENCOUNTER → 2023-08-30 | Outpatient (CLI) | payer MEDICARE, OTHER ==
[~2023-08-30] MED LIST changes: -NS 1,000 ML IV ONE
== END ==
LOC: M RAD 16:55
PROVIDERS: ATTEND Nurse Practitioner Family
DX: M16.11 Unilateral primary osteoarthritis, right hip (principal); M47.896 Other spondylosis, lumbar region; M46.96 Unspecified inflammatory spondylopathy, lumbar region; M41.86 Other forms of scoliosis, lumbar region

== ENCOUNTER → 2023-09-11 | Outpatient (CLI) | payer MEDICARE, OTHER | LOC: M RAD 16:18 | PROVIDERS: ATTEND Nurse Practitioner Family | DX: K59.00 Constipation, unspecified (principal); Z93.3 Colostomy status; M16.11 Unilateral primary osteoarthritis, right hip ==

== ENCOUNTER → 2023-10-15 | Outpatient (CLI) | payer MEDICARE, OTHER ==
[~2023-10-15] MED LIST changes: +GASTROGRAFIN SOLUTION 30ML As Ordered ONE; +ISOVUE-370 76% 100ML VIAL As Ordered ONE; +JARD1TAB
== END ==
LOC: M RAD 10:59
PROVIDERS: ATTEND Nurse Practitioner
DX: C20 Malignant neoplasm of rectum (principal); C18.9 Malignant neoplasm of colon, unspecified; N28.1 Cyst of kidney, acquired; Z93.3 Colostomy status; M47.816 Spondylosis without myelopathy or radiculopathy, lumbar region; M16.11 Unilateral primary osteoarthritis, right hip; R91.8 Other nonspecific abnormal finding of lung field
CPT/HCPCS: 71260; 74177; Q9963; Q9967

== ENCOUNTER → 2023-10-24 | Outpatient (REF) | payer MEDICARE, OTHER ==
[~2023-10-24] MED LIST changes: -GASTROGRAFIN SOLUTION 30ML As Ordered ONE; -ISOVUE-370 76% 100ML VIAL As Ordered ONE
[2023-10-24 16:53] LABS: HEMOGLOBIN A1c 8.1 % (4.0-6.0)
== END ==
LOC: M LAB REF 15:17
PROVIDERS: ATTEND Nurse Practitioner Family
DX: E11.69 Type 2 diabetes mellitus with other specified complication (principal)

== ENCOUNTER 2023-11-14 16:16 | Emergency (ER) | payer MEDICARE, OTHER ==
[~2023-11-14] VITALS: Ht 154.9 cm; Wt 48.6 kg
[~2023-11-14 16:16] MED LIST changes: -EVEN500C3 PO; +EVEN500C7 PO; -GLIM1TAB4 PO; +GLIM1TAB84 PO
[2023-11-14 17:15] VITALS: BP 182/90
[2023-11-14] MEDS: LABETALOL 100MG/20ML VIAL IV PRN (17:15)
[2023-11-14] MEDS: cefTRIAXone SOD 2 GM in D5W MINI-BAG PLUS 50 ML IV ONE (17:16)
[2023-11-14] MEDS: BOOSTRIX VACCINE (TETANUS/DIPHTH/ACEL. PERTUSSIS) 0.5ML SYR IM.IMMUN ONE (17:17)
[2023-11-14] MEDS: MORPHINE 2 MG/ML 1ML VIAL IV PRN (17:19)
[2023-11-14] MEDS: ONDANSETRON 4MG 2ML VIAL IV ONE (17:19)
[2023-11-14 17:20] LABS: HEMATOCRIT 38.1 % (36.0-47.0); HEMOGLOBIN 12.1 g/dl (12.0-15.5); MEAN CORPUSCULAR HEMOGLOBIN 29.7 pg (27.0-33.0); MEAN CORPUSCULAR HGB CONC 31.8 g/dl (32.0-36.5); MEAN CORPUSCULAR VOLUME 93.6 fl (80.0-96.0); RED BLOOD COUNT 4.07 10^6/uL (4.00-5.40); WHITE BLOOD COUNT 8.2 10^3/uL (4.0-10.0)
[2023-11-14 17:21] LABS: BASO % 0.4 % (0.0-1.0); EOS # 0.1 10^3/uL (0.0-0.5); EOS % 0.6 % (0.0-3.0); LYMPH # 0.5 10^3/uL (1.5-5.0); LYMPH % 6.6 % (24.0-44.0); MONO # 0.8 10^3/uL (0.0-0.8); MONO % 9.4 % (2.0-8.0); NEUTROPHILS # 6.8 10^3/uL (1.5-8.5); NEUTROPHILS % 82.5 % (36.0-66.0); PLATELET COUNT, AUTOMATED 271 10^3/uL (150-450)
[2023-11-14 17:43] LABS: CALCIUM LEVEL 9.3 MG/DL (8.3-10.6); CREATININE FOR GFR 1.03 MG/DL (0.55-1.30); GLOMERULAR FILTRATION RATE 54.5 (>32); MAGNESIUM LEVEL 1.1 MG/DL (1.8-2.4); POTASSIUM SERUM 3.9 MMOL/L (3.5-5.1)
[2023-11-14 17:46] LABS: FREE T4 1.08 NG/DL (0.89-1.76); THYROID STIMULATING HORMONE 7.67 uIU/ML (0.55-4.78)
[2023-11-14 18:02] VITALS: BP 130/92; TEMP 99.3; O2SAT 89
== END 2023-11-14 18:44 | disposition short-term general hospital (02) ==
LOC: M ED 16:16
DX: S06.361A Traumatic hemorrhage of cerebrum, unspecified, with loss of consciousness of 30 minutes or less, initial encounter (principal); S02.11HA Other fracture of occiput, left side, initial encounter for closed fracture; S06.0X9A Concussion with loss of consciousness of unspecified duration, initial encounter; X58.XXXA Exposure to other specified factors, initial encounter; Y92.89 Other specified places as the place of occurrence of the external cause; Y93.9 Activity, unspecified; Y99.9 Unspecified external cause status; M16.11 Unilateral primary osteoarthritis, right hip; I48.91 Unspecified atrial fibrillation; E11.9 Type 2 diabetes mellitus without complications; I10 Essential (primary) hypertension; D50.9 Iron deficiency anemia, unspecified; Z85.038 Personal history of other malignant neoplasm of large intestine; Z79.899 Other long term (current) drug therapy; Z88.8 Allergy status to other drugs, medicaments and biological substances